=== PATIENT | female | born 1950 | race Caucasian/White ===

== ENCOUNTER 2024-10-21 12:10 | Emergency (ER) | payer MEDICARE, SELFPAY ==
[2024-10-21 12:27] VITALS: BP 134/74; PULSE 79; TEMP 36.6; O2SAT 98; BMI 33.6
[2024-10-21 12:41] LABS: Glucometer 126 mg/dL (74-106)
--- NOTE | 2024-10-21 15:06 | ED.GENADUL1 ---
HPI HPI - General Adult General Chief complaint: Recheck/Abnormal Lab/Rx Stated complaint: hypoglycemia Time Seen by Provider: 10/21/24 14:09 Source: patient Mode of arrival: walk-in Limitations: no limitations History of Present Illness HPI narrative: Patient is a 74-year-old female who is presenting to the ER today with chief complaint of lower blood sugar. Patient has a very detailed note that she wrote of what occurred today. A copy of this will be placed in the chart. Patient got up at 4:00 this morning, her sugar was 120 at 5 AM. She ate breakfast. She had a bowl of cereal and a cup of hot chocolate. She took her insulin shot at 6:45 AM. She checked her blood sugar at 9:45 AM, her blood sugar was 74. She took a glucose tablet at 1045. She felt sick to her stomach after she took the glucose tablet, went to the bathroom and then 1 episode of vomiting at 11:00. At 1110 her blood sugar was 89 and then she ate peanut butter sandwich at 1140. Sugar was 80 at that time. Patient has had her blood sugar checked when she arrived and was in the 120s. Patient blood sugar was checked when she was placed in room 9, is in the 150s. Patient has no symptoms while she is in room 9. Patient was the waiting room for length of time before she has placed. Grandson at bedside. She has no headache or neck pain. No chest pain or shortness of breath. She has no nausea. Patient ate a turkey sandwich at lunchtime. Patient has no abdominal pain. Patient is admittedly nervous because she is using a new glucose monitor at home that is not correlating with her finger prick glucometer that she has done for a long time. Patient is uncertain what she should do with her sliding scale. Patient was not aware interval blood sugar was 60?100. All systems are negative except as noted/marked. All systems reviewed and otherwise negative. Nurses note and vital signs reviewed and patient is not hypoxic. General: The patient appears well and in no apparent distress. Patient is resting comfortably on cart. Patient is not toxic, lethargic, or listless Skin: Warm, dry, no pallor noted. There is no rash noted. No petechiae, purpura. Head: Normocephalic, atraumatic Eye: Normal conjunctiva, no drainage, EOMI. PERRL Ears, Nose, Mouth, and Throat: oral mucosa is moist. Nares patent. Mouth without vesicles. Cardiovascular: Regular Rate and Rhythm, no murmur, gallop, rub Respiratory: Patient is in no distress, no accessory muscle use, lungs are clear to auscultation, no wheezing, rales or rhonchi Back: non-tender, no CVA tenderness bilaterally to percussion. No CT LS midline pain GI: Soft, obese, no tenderness to palpation, no masses appreciated. No rebound, guarding, or rigidity noted. No distention. No rash. Musculoskeletal: Patient has full range of motion of all of the extremities, no motor, sensory, or focal neurological deficits Neurological: A&O x4, normal speech Psychiatric: Cooperative Related Data Allergies Allergy/AdvReac Type Severity Reaction Status Date / Time No Known Drug Allergies Allergy Verified 10/21/24 12:27 Opioid HPI Opioid Management Most Recent Opioid Data: No Data to Display PFSH PFSH Social History Little interest or pleasure in doing things: not at all Feeling down, depressed, or hopeless: not at all Exam Constitutional Vital Signs, click to edit/add: Last Vital Signs Temp 98 F 10/21/24 12:27 Pulse 79 10/21/24 12:27 Resp 14 10/21/24 12:27 BP 134/74 10/21/24 12:27 Pulse Ox 98 10/21/24 12:27 O2 Del Method Room Air 10/21/24 12:27 Course Vital Signs Vital signs: Vital Signs Temperature 98 F 10/21/24 12:27 Pulse Rate 79 10/21/24 12:27 Respiratory Rate 14 10/21/24 12:27 Blood Pressure 134/74 10/21/24 12:27 Pulse Oximetry 98 10/21/24 12:27 Oxygen Delivery Method Room Air 10/21/24 12:27 Temperature 98 F 10/21/24 12:27 Pulse Rate 79 10/21/24 12:27 Respiratory Rate 14 10/21/24 12:27 Blood Pressure 134/74 10/21/24 12:27 Pulse Oximetry 98 10/21/24 12:27 Oxygen Delivery Method Room Air 10/21/24 12:27 Medical Decision Making MDM Narrative Medical decision making narrative: Patient blood sugar has been normal all day today. It was 74 and she was concerned so she took a glucose tablet. Patient has no symptoms. At length was discussing on patient following up with PCP, checking her monitors, making sure which monitor if she should be using and not. We talked at length about using life alert at home. Patient did have it, she cannot find it. Grandson at bedside was not aware of life alert and what it did. Patient knows what life alert is, and patient is recommended to call the company and get a new life alert and holders that she can use. Patient has not truly been hypoglycemic today. Patient has no acute need for testing. EKG was done, normal limits. Patient had IV placed initially by Yann TREADWELL because there was a thought we may do testing on patient. However she has not been hypoglycemic, she has no symptoms. I told patient we typically do IV and labs and protocols on people, but she was understanding why the IV was placed and it will be removed. She was not upset at all. Patient will follow-up with her PCP and she knows that she needs to get a new life alert system at home because she does not able to find her current 1. No question at discharge Lab Data Lab results reviewed: Yes I reviewed the patient's lab results Labs: Lab Results 10/21/24 Range/Units 12:39 POC Glucose 126 H (74-106) mg/dL Discharge Plan Discharge Chief Complaint: Recheck/Abnormal Lab/Rx Clinical Impression: Diabetes Patient Disposition: Home, Self-Care Time of Disposition Decision: 15:05 Condition: Fair Print Language: Turkish Instructions: Diabetes and Nutrition (ED) Additional Instructions: Replace your life alert button so that you can keep that on you at all times as discussed at bedside with your grandson. Call Dr. Vera and make an appointment to go over your diabetic sugar monitor, your monitor at home that you are using, and further direction on medication that you should be and not be using with your insulin sliding scale. Discussed the differences between your new monitor versus your old glucometer that you have been using. Return back to the ER if any other acute concerns. Your sugars have been normal all day today, and normal sugar ranges 60?100 Referrals: SHANICE VERA [Primary Care Provider] - 1 week
[2024-10-21 15:23] VITALS: BP 164/74; PULSE 66; O2SAT 96
--- NOTE | 2024-10-21 17:25 | ECG_ITS ---
[facility] Test Date: 2024-10-21 Pat Name: ANDREA GLEZ Department: Room: - Gender: Female [employer] T[employer]: : 1950 Requested By: Order Number: [id number] Reading MD: PEYMAN AN Measurements Intervals [place] Rate: 69 P: -64 MD: 140 QRS: 48 QRSD: 82 T: 46 QT: 420 QTc: 439 Interpretive Statements 1300 Junctional rhythm 9140 abnormal rhythm ECG No previous ECG available for comparison Electronically Signed On 10-23-2024 8:08:40 EST by PEYMAN AN
== END 2024-10-21 15:24 | disposition home or self-care (01) ==
PROVIDERS: Emergency Provider Emergency Medicine; Family Provider Family Medicine; PCP Internal Medicine
DX: E11.9 Type 2 diabetes mellitus without complications (principal); Z79.4 Long term (current) use of insulin
CPT/HCPCS: 36415; 93005; 99283

== ENCOUNTER 2024-12-06 10:55 | Emergency (ER) | payer MEDICARE, SELFPAY ==
[2024-12-06 11:03] VITALS: BP 186/91; PULSE 72; TEMP 36.5; O2SAT 98; BMI 33.6
--- OUTSIDE RECORDS SUMMARY | 2024-12-06 11:07 | XMS_ITS | CCD ---
Author Organization [facility]ini[facility] Care Team Providers Care Faculty Member Name Role Phone Lauren Vance Unavailable Antonio Thompson Unavailable Tang Shrestha Unavailable DO Kristopher Herzog Primary Care Provider MD Tang Shrestha Attending Provider [phone] IRAM Molina Attending Provider DO Kristopher Herzog Attending Provider [phone] DO Kristopher Herzog Primary Care Provider DO Kristopher Herzog Attending Provider DO Radha Verduzco Attending Provider [phone] DO Kristopher Herzog Primary Care Provider [phone] IRAM Molina Attending Provider DO Kristopher Herzog Attending Provider DO Radha Verduzco Attending Provider MD Edmond Branham Emergency Provider Olu Rene Unavailable DO Kristopher Herzog Primary Care Provider DO Kristopher Herzog Attending Provider [phone] Kiersten Qureshi Unavailable DO Kristopher Herzog Primary Care Provider MD Edmond Branham Emergency Provider DO Kristopher Herzog Attending Provider DO Radha Verduzco Attending Provider [phone] DO Kristopher Herzog Attending Provider FAITH Lobo Emergency Provider MD Rosalina Shelton Admit Provider MD Rosalina Shelton Attending Provider DO Kristopher Herzog Primary Care Provider DO Gabriel Castaneda Attending Provider DO Kristopher Herzog Primary Care Provider DO Kristopher Herzog Attending Provider [phone] DO Radha Verduzco Attending Provider NO FAMILY, PHYSICIAN Primary Care Provider Unava ilable iTta Roberts Unavailable Kristopher Herzog DO A Unavailable [phone] Kristopher Herzog DO A Primary Care Provider DO Kristopher Herzog Primary Care Provider DO Kristopher Herzog Attending Provider DO Kristopher Herzog Primary Care Provider DO Kristopher Herzog Attending Provider DO Radha Verduzco Attending Provider DO Sandy Clark Attending Provider [phone] DO Kristopher Herzog Primary Care Provider [phone] DO Johnny Keen Emergency Provider [phone] DO Kristopher Herzog Primary Care Provider [phone] DO Kristopher Herzog Primary Care Provider Kristopher Herzog Primary Care Unavailable Itzdunia, Radha Admitting Unavailable Itdee, Radha Attending Unavailable Kristopher Herzog Admitting Unavailable Kristopher Herzog Primary Care Unavailable Kristopher Herzog Attending Unavailable NO FAMILY, PHYSICIAN Primary Care Unavailable Itzkoel, Radha Admitting Unavailable Itdee, Radha Attending Unavailable Kristopher Herzog Primary Care Unavailable Sandy Clark Admitting Unavailable Amber, Sandy Ye Attending Unavailable Johnny Keen Attending Unavailable Kristopher Herzog Primary Care Unavailable Johnny Keen Admitting Unavailable Kristopher Herzog DO Unavailable KRISTOPHER HERZOG Attending Unavailable KRISTOPHER HERZOG Referring Unavailable KRISTOPHER HERZOG Attending Unavailable KRISTOPHER HERZOG Referring Unavailable KRISTOPHER HERZOG Attending Unavailable KRISTOPHER HERZOG Referring Unavailable KRISTOPHER HERZOG Referring Unavailable ADAM SMITH Attending Unavailable MARLON BRANHAM Attending Unavailable RADHA VERDUZCO Attending Unavailable ADAM SMITH Attending Unavailable MARLON BRANHAM Attending Unavailable MINO, KRISTOPHER Welch Attending Unavailable KRISTOPHER HERZOG Referring Unavailable DIDIONPERNELLVENITA L Attending Unavailable DIDSULY, VENITA L Referring Unavailable DIDION, VENITA L Referring Unavailable BRANHAMMARLON H Attending Unavailable DIDION VENITA L Attending Unavailable DIDION VENITA L Referring Unavailable DIDION VENITA L Referring Unavailable Medications Current Medications Medication Drug Class(es) Dates Sig (Normalized) Sig (Original) acetaminophen 500 mg oral tablet (20 sources) Start: 05-08-2021 take 2 tablets by mouth every six hours as needed for pain Acetaminophen (Acetaminophen Extra Strength) 500 mg Tablet Active 1000 MG PO Q6H as needed for Pain May 08, 2021 12:00am take 2 tablets by mo uth twice daily as needed for pain acetaminophen (Tylenol Extra Strength) 5 00 MG tablet Take 1,000 mg by mouth 2 (two) times a day as needed for mild pain. Active Tylenol Active amitriptyline hydrochloride 50 mg oral tablet (20 sources) Tricyclic Antidepressant Start: 12-28-2023 End: 04-27-2024 take 1 tablet by mouth at bedtime amitriptyline (Elavil) 50 MG tablet Indications: Essential hypertension, benign (CMS/HCC) TAKE 1 TABLET BY MOUTH AT BEDTIME 90 tablet 3 12/28/2023 04/27/2024 Discontinued (Therapy completed) Start: 02-09-2023 take 1 tablet by brary at bedtime amitriptyline (Elavil) 50 MG tablet Indications: Essential hypertension, benign (CMS/HCC) Take 1 tablet (50 mg) by mouth at bedtime. 90 tablet 3 02/09/2023 Active Start: 04-29-2017 End: 06-29-2024 take 1 tablet by mouth once daily at bedtime Amitriptyline 25 mg Tablet Discontinued 25 MG PO Daily at bedtime April 29, 2017 12:00am June 29, 2024 11:36am Ascorbic Acid / Beta Caroten e / cuprous oxide / Lutein / sodium selenate / Vitamin E / Zinc Oxide (20 sources) Vitamin C Ocuvite Active balsalazide disodium 750 mg oral capsule (5 sources) Aminosalicylate Start: 08-28-2016 take 3 capsules by mouth every twelve hours Betamethasone (20 sources) Corticosteroid Betamethasone Va lerate Active cholecalciferol 0.025 mg oral capsule (20 sources) Vitamin D Start: 04-29-2017 take 1 capsule by mouth once daily Cholecalciferol (Vitamin D3) (Vitamin D3) 1,000 unit Capsule Active 1000 UNIT PO Daily April 29, 2017 12:00am take 1 tablet by mouth in the mo rning cholecalciferol (Vitamin D-3) 25 MCG (1000 UT) tablet Take 1,000 Units by mouth in the morning. Active citalopram 20 mg oral tablet (20 sources) Serotonin Reuptake Inhibitor Start: 04-29-2017 take 1 tablet by mouth once daily Citalopram 20 mg Tablet Active 20 MG PO Daily April 29, 2017 12:00am clobetasol propionate 0.0005 mg/mg topical ointment (20 sources) Corticosteroid Start: 06-22-2024 clobetasol (Temovate) 0.05 % ointment Indications: Atrophic vaginitis Apply topically 2 (two) times a day 15 g 1 06/22/2024 Active Start: 09-17-2023 clobetasol (Te movate) 0.05 % ointment Indications: Dermatitis Apply topically 2 (two) times a day 30 g 2 09/17/2023 Active Continuous Glucose Foundry Operator (FreeStyle Carline 3 Mallory) device (4 sources) Start: 09-06-2024 End: 09-06-2025 Continuous Glucose Foundry Operator (FreeStyle Carline 3 Mallory) device Indications: Diabetic peripheral neuropathy associated with type 2 diabetes mellitus (CMS/HCC) , [facility] current use of insulin ([facility]) 1 Device continuously 1 each 09/06/2024 09/06/2025 Active Continuous Glucose Sensor [place]FreeStyle Carline [place] [facility] [place] Start: 09-06-2024 End: 09-06-2025 Continuous Glucose Sensor (FreeStyle Carline 3 Sensor[place] [facility] [place]ications: Diabetic peripheral neuropathy associated with type 2 diabetes mellitus ([facility]/HCC) , [facility] current use of insulin ([facility]) 1 Device every 14 (fourteen) days 7 each 3 09/06/2024 09/06/2025 Active dexlansoprazole 60 mg delayed release oral capsule (5 sources) Proton Pump Inhibitor take 1 capsule by mouth every twenty-four hours esomeprazole 20 mg delayed release oral capsule (5 sources) Proton Pump Inhibitor take 1 capsule by mouth every twenty-four hours famotidine 20 mg oral tablet (5 sources) Histamine-2 Receptor Antagonist take 1 tablet by mouth every twelve hours gemfibrozil 600 mg oral tablet (5 sources) Peroxisome Proliferator Receptor alpha Agonist take 1 tablet by mouth every twelve hours HumaLOG Mix 75/25 KwikPen (5 sources) Start: 05-24-2010 hydrocortisone acetate 25 mg rectal suppository (10 sources) Corticosteroid Start: 06-29-2024 End: 10-07-2024 Hydrocortisone Acetate (Anusol-Hc) 25 mg suppository Active 25 MG MA Daily at bedtime 7 7 October 07, 2024 1:00am insulin aspart protamine, human 70 unt/ml / insulin aspart, human 30 unt/ml injectable suspension (20 sources) Insulin Analog Start: 10-10-2024 NovoLOG MIX 70/30 (70-30) 100 UNIT/ML injection Indications: Type 2 diabetes mellitus with diabetic polyneuropathy, with long-term current use of insulin ([facility]) INJECT 12 UNITS SUBCUTANEOUSLY TWICE A DAY IN THE MORNING AND EVENING WITH MEALS 10 mL 5 10/10/2024 Active Start: 10-07-2024 Insulin Asp Pr t-Insulin Aspart (Novolog Mix 70-30flexpen U- 100) 100 unit/mL (70-30) insulin pen Active 14 UNIT SUBCUT Twice daily October 07, 2024 10:09am Per patient Start: 11-09-2023 End: 10-07-2024 Insulin Asp Prt-Insulin Aspa rt (Novolog Mix 70-30flexpen U-100) 100 unit/mL (70-30) insulin pen Discontinued 12 UNIT SUBCUT Twice daily November 09, 2023 12:00am October 07, 2024 10:10am Per patient Start: 08-20-2023 insulin aspart protamine-insulin aspart (NovoLOG Mix 70-30) (70-30) 100 UNIT/ML injection Indications: Type 2 diabetes mellitus with diabetic polyneuropathy, with long-term current use of insulin ([facility]) Inject 12 Units under the skin in the morning and 12 Units in the evening. Inject with meals. 10 mL 12 08/20/2023 Active Start: 11-22-2021 End: 12-13-2022 Insulin Asp Prt-Insulin Aspa rt (Novolog Mix 70-30 U-100 Insuln) 100 unit/mL (70-30) solution Discontinued 42 UNIT SUBCUT Every morning November 22, 2021 12:00am December 13, 2022 7:59pm Start: 11-22-2021 End: 11-09-2023 Insulin Asp Prt-Insulin Aspa rt (Novolog Mix 70-30 U-100 Insuln) 100 unit/mL (70-30) solution Discontinued 30 UNIT SUBCUT Twice daily November 22, 2021 12:00am November 09, 2023 10:07am On Hold: Resume on 12/15/22. until seen by primary care physician Start: 11-22-2021 Insulin Asp Pr t-Insulin Aspart (Novolog Mix 70-30 U-100 Insuln) 100 unit/mL (70-30) solution Active 34 UNIT SUBCUT Every evening November 22, 2021 12:00am Start: 11-22-2021 Insulin Asp Pr t-Insulin Aspart (Novolog Mix 70-30 U-100 Insuln) 100 unit/mL (70-30) solution Active 36 UNIT SUBCUT Every morning November 21, 2021 11:00pm Start: 11-22-2021 Insulin Asp Pr t-Insulin Aspart (Novolog Mix 70-30 U-100 Insuln) 100 unit/mL (70-30) solution Active 30 UNIT SUBCUT Every evening November 22, 2021 12:00am Start: 04-29-2017 End: 11-22-2021 Insulin Asp Prt-Insulin Aspa rt (Novolog Mix 70-30flexpen U-100) 100 unit/mL (70-30) Insulin Pen Discontinued 30 UNIT SUBCUT Every evening April 29, 2017 12:00am November 22, 2021 4:57pm Start: 04-29-2017 End: 01-21-2018 Insulin Asp Prt-Insulin Aspa rt (Novolog Mix 70-30flexpen U-100) 100 unit/mL (70-30) Insulin Pen Discontinued 28 UNIT SUBCUT Every morning April 29, 2017 12:00am January 21, 2018 11:46am 3 ml insulin aspart, human 1 00 unt/ml pen injector (20 sources) Insulin Analog NovoLOG FlexPen 100 UNIT/ML 30 units Subcutaneous twice daily Active NovoLOG Active insulin glargine 100 unt/ml injectable solution (5 sources) Insulin Analog inject 100 [IU] by s ubcutaneous injection in the morning insulin isophane / insulin, regular, human (20 sources) Insulin NovoLIN 70/30 Ac tive Iron (10 sources) take 1 tablet by mouth once nicole y Iron 325 (65 Fe) MG 1 tablet Orally Once a day Active Iron Active losartan potassium 50 mg oral tablet (20 sources) Angiotensin 2 Receptor Cortes Start: 06-29-2024 take 1 tablet by mouth once daily Losartan 50 mg tablet Active 50 MG PO Daily June 29, 2024 1:00am Start: 07-27-2023 take 1 tablet by barry th in the morning losartan (Cozaar) 50 MG tablet Indications: Primary hypertension (CMS/HCC) Take 1 tablet (50 mg) by mouth in the morning. 90 tablet 3 07/27/2023 Active mesalamine 1200 mg delayed release oral tablet (5 sources) Aminosalicylate Start: 07-18-2016 take 2 tablets by mouth every twenty-four hours methylPREDNISolone 4 mg oral tablet (5 sources) Corticosteroid Start: 10-15-2014 mometasone furoate 1 mg/ml topical lotion (10 sources) Corticosteroid Start: 09-16-2023 End: 09-15-2024 mometasone (Elocon) 0.1 % lotion Indications: Dermatitis Apply topically Daily 60 mL 1 09/16/2023 09/15/2024 Active Multiple Vitamins-Minerals (Ocuvite Adult Formula) capsule (14 sources) Multiple Vitamins-Minera ls (Ocuvite Adult Formula) capsule as directed Orally Active Multiple Vitamin s-Minerals (Ocuvite Adult Formula) capsule as directed Orally 0 Active Multiple Vitamins-Minerals ( PreserVision AREDS) tablet (14 sources) Multiple Vitamin s-Minerals (PreserVision AREDS) tablet as directed Orally Active Multiple Vitamin s-Minerals (PreserVision AREDS) tablet as directed Orally 0 Active pantoprazole 40 mg delayed release oral tablet (20 sources) Proton Pump Inhibitor Start: 03-25-2024 End: 03-25-2025 take 1 tablet by mouth before mealtime pantoprazole (ProtoNix) 40 MG EC tablet Indications: Gastroesophageal reflux disease without esophagitis Take 1 tablet (40 mg) by mouth in the morning. Take before meals. 90 tablet 3 03/25/2024 03/25/2025 Active Start: 06-10-2023 take 1 tablet by barry th before mealtime pantoprazole (ProtoNix) 20 MG EC tablet Indications: Gastroesophageal reflux disease without esophagitis Take 1 tablet (20 mg) by mouth in the morning. Take before meals. 90 tablet 3 06/10/2023 Active Start: 12-15-2022 End: 11-09-2023 take 1 tablet by mouth twice daily Pantoprazole 40 mg Tablet,Delayed Release (Dr/Ec) Discontinued 40 MG PO Twice daily 42 December 15, 2022 12:00am November 09, 2023 10:08am Start: 11-22-2021 take 1 tablet by barry th once daily Pantoprazole (Protonix) 40 mg tablet,delayed release (DR/EC) Active 40 MG PO Daily November 22, 2021 12:00am Start: 04-29-2017 End: 11-22-2021 take 2 tablets by mouth once daily as needed Pantoprazole 20 mg Tablet,Delayed Release (Dr/Ec) Discontinued 40 MG PO Daily as needed for Acid Reflux April 29, 2017 12:00am November 22, 2021 4:56pm Start: 04-29-2017 End: 11-22-2021 take 40 mg by mouth once daily Pantoprazole Discontinu ed 40 MG PO Daily April 28, 2017 11:00pm November 22, 2021 3:56pm Pantoprazole Sod ium Active Potassium (20 sources) Potassium Active PreserVision AREDS (20 sources) PreserVision ARE DS Active rosuvastatin calcium 20 mg oral tablet (20 sources) HMG-CoA Reductase Inhibitor Start: 05-08-2021 End: 12-13-2022 take 1 tablet by mouth once daily Rosuvastatin (Crestor) 20 mg Tablet Active 20 MG PO Daily December 13, 2022 12:00am Crestor Active sulfaSALAzine 500 mg oral tablet (20 sources) Aminosalicylate Start: 09-23-2022 End: 04-13-2024 take 1 tablet by mouth three times daily Sulfasalazine 500 mg tablet Active 1000 MG PO Three times daily 540 90 April 13, 2024 11:44am Start: 09-23-2022 End: 04-13-2024 take 1000 mg by mouth three times daily Sulfasalazine Active 1000 MG PO Three times daily 540 90 April 13, 2024 10:44am Start: 09-23-2022 take 100 mg by mouth three times daily Sulfasalazine Active 100 MG PO Three times daily September 23, 2022 1:00am Start: 01-09-2022 take 2 tablets by mo [facility] three times daily sulfaSALAzine (Azulfidine) 500 MG tablet TAKE TWO (2) TABLETS BY MOUTH THREE TIMES PER DAY 12/20/2022 Active Start: 01-09-2022 take 2 tablets by mo [facility] every six hours sulfaSALAzine 500 MG 2 tablets Orally qid for 30 day(s) December, Active Start: 11-07-2021 [facility] sulfaSALAzine 500 MG 1 tablet Orally three times a day Oct, Active Suprep Bowel Prep - (5 sources) Start: 06-26-2016 1 ml triamcinolone acetonide 40 mg/ml prefilled syringe (20 sources) Corticosteroid Start: 10-03-2024 End: 10-03-2024 triamcinolone acetonide (Kenalog-40) injection 40 mg Start: 10-03-2024 End: 10-03-2024 40 mg, Intra-articular, Once , On Thu10/03/24 at 0945, For 1 dose Start: 10-03-2024 End: 10-03-2024 triamcinolone acetonide (Braxton alog-40) injection 40 mg Start: 10-03-2024 End: 10-03-2024 40 mg, Intra-articular, Once , On Thu10/03/24 at 0945, For 1 dose Start: 12-26-2019 KENALOG - 10 m g December, 40 mg Start: 08-22-2019 BRAXTONALOG - 10 m g Jul, 40 mg Start: 11-05-2018 KENALOG - 10 m g Oct, 40 mg Start: 10-27-2014 KENALOG - 10 m g Oct, 40 mg Start: 10-15-2014 KENALOG - 10 m g Sep, 40 mg Triamterene-HCTZ (5 sources) Triamterene-HCTZ Active trolamine salicylate (20 sources) Aspercreme Activ e Vitamin D 1000 UNIT (20 sources) take 1 tablet by mouth once nicole y Vitamin D 1000 UNIT 1 tablet Orally Once a day Active Vitamin D-3 (5 sources) Vitamin D-3 Acti ve warfarin sodium 3 mg oral tablet (20 sources) Vitamin K Antagonist Start: 08-01-2024 warfarin (Coumadin) 3 MG tablet Indications: Chronic deep vein thrombosis (DVT) of femoral vein of left lower extremity (CMS/HCC) TAKE 1/2 TAB ORALLY ON THURSDAY AND THURSDAY, 1 TABLET DAILY ALL OTHER DAYS OR PER COUMADIN CLINIC 78 tablet 1 08/01/2024 Active Start: 11-09-2023 Warfarin (Jant oven) 3 mg tablet Active 0 PO As Directed November 09, 2023 10:08am 1.5mg on Tuesdays & Saturdays and 3mg on all other days orally as directed; [place] [facility] [place] Start: 11-22-2021 End: 12-15-2022 Warfarin (Jantoven) 3 mg tab let Discontinued 1.5 MG PO As Directed November 22, 2021 12:00am December 15, 2022 11:06am Thursday and thursday Start: 11-22-2021 take 1.5 mg by mouth once Warf kathy (Jantoven) 3 mg tablet Active 1.5 MG PO As Directed November 22, 2021 12:00am every thursday Start: 02-10-2018 End: 02-10-2018 Warfarin (Coumadin) 1 mg Tab let Discontinued 2 MG TABLET 5 TIMES PER WEEK February 10, 2018 12:00am February 10, 2018 10:52am takes 3mg Mondays and Fridays, 2mg , Thu, , Sat, Sun Start: 01-21-2018 End: 11-09-2023 take 1 tablet by mouth once daily Warfarin (Jantoven) 3 mg Tablet Discontinued 3 MG PO Daily January 21, 2018 12:00am November 09, 2023 10:10am 3mg daily as of 12/15/22 Start: 04-29-2017 End: 06-19-2017 take 1 tablet by mouth once Warfarin (Coumadin) 3 mg T ablet Discontinued 3 MG PO every Thursday, Thursday, Thursday, and Saturday April 29, 2017 12:00am June 19, 2017 9:25am Start: 04-29-2017 End: 06-19-2017 take 1 tablet by mouth once Warfarin (Coumadin) 4 mg T ablet Discontinued 4 MG PO every Thursday, and Saturday April 29, 2017 12:00am June 19, 2017 9:25am Completed/Discontinued Medications Medication Drug Class(es) Dates Sig (Normalized) Sig (Original) acetaminophen 325 mg / HYDROcodone bitartrate 5 mg oral tablet (20 sources) Opioid Agonist Start: 02-09-2024 End: 10-07-2024 take 1 tablet by mouth every four to six hours as needed for pain Hydrocodone-Acetami nophen 5-325 mg tablet Discontinued 1 TAB PO EVERY 4-6 HOURS as needed for pain 10 February 09, 2024 October 07, 2024 10:08am Start: 01-03-2021 End: 05-08-2021 take 1 tablet by mouth every four to six hours as needed for pain Hydrocodone-Acetaminophen 5-325 mg Table t Discontinued 1 TAB PO EVERY 4-6 HOURS as needed for Pain 07 26January 03, 2021 May 08, 2021 10:21am Start: 04-30-2017 End: 06-19-2017 take 1 tablet by mouth every four to six hours as needed for pain Hydrocodone-Acetaminophen (Clayton) 5-325 mg tablet Discontinued 1 TAB PO EVERY 4-6 HOURS as needed for pain April 30, 2017 June 19, 2017 9:24am Start: 04-30-2017 take 1 tablet by barry th every six hours as needed Start: 10-15-2014 take 1 tablet by barry th every six hours as needed amoxicillin 875 mg / clavulanate 125 mg oral tablet (20 sources) Penicillin-class Antibacterial Start: 01-23-2018 End: 02-10-2018 take 1 tablet by mouth twice daily Amoxicillin-Pot Clavulanate (Augmentin) 875-125 mg tablet Discontinued 1 TAB PO Twice daily January 23, 2018 12:00am February 10, 2018 10:30am ascorbic acid 113 mg / beta carotene 7160 mg / cuprous oxide 0.4 mg / dl-alpha tocopheryl acetate 100 unt / zinc oxide 17.4 mg oral tablet (20 sources) Vitamin C Start: 05-08-2021 End: 11-09-2023 take 2 tablets by mouth once daily Vitamins A,C,S-Ewrq-Rtmlup (Preservision Areds) 7,160 unit- 113 mg-100 unit Tablet Discontinued 2 TAB PO Daily May 08, 2021 12:00am November 09, 2023 10:08am aspirin 81 mg chewable tablet (20 sources) Platelet Aggregation Inhibitor, Nonsteroidal Anti-inflammatory Drug Start: 04-29-2017 End: 05-07-2018 take 1 tablet by mouth once daily Aspirin (Aspirin Childrens) 81 mg Tablet,Chewable Discontinued 81 MG PO Daily April 29, 2017 12:00am May 07, 2018 2:34pm betamethasone 0.5 mg/ml / clotrimazole 10 mg/ml topical cream (20 sources) Azole Antifungal, Corticosteroid Start: 04-29-2017 End: 05-08-2021 Clotrimazole-Betame thasone (Lotrisone) 1-0.05 % Cream Discontinued 1 APPLIC TOPICAL Twice daily as needed for Fungal rash June 11, 2017 12:00am May 08, 2021 10:21am Lotrisone Active cephalexin 500 mg oral capsule (20 sources) Cephalosporin Antibacterial Start: 02-09-2024 End: 06-29-2024 take 1 capsule by mouth twice daily Cephalexin 500 mg capsule Discontinued 500 MG PO Twice daily 14 February 09, 2024 12:00am June 29, 2024 11:37am Start: 06-19-2017 End: 01-21-2018 take 1 capsule by mouth every eight hours Cephalexin (Keflex) 500 mg capsule Discontinued 500 MG PO Q8H June 19, 2017 12:00am January 21, 2018 11:42am cyclobenzaprine hydrochloride 10 mg oral tablet (20 sources) Muscle Relaxant Start: 07-16-2022 End: 12-13-2022 take 1 tablet by mouth three times daily as needed for muscle spasms Cyclobenzaprine 10 mg tablet Discontinued 10 MG PO Three times daily as needed for Muscle Spasm July 16, 2022 1:00am December 13, 2022 8:00pm Start: 08-06-2019 End: 05-08-2021 take 1 tablet by mouth three times daily as needed for muscle spasms Cyclobenzaprine 5 mg tablet Discontinued 5 MG PO Three times daily as needed for muscle spasm August 06, 2019 1:00am May 08, 2021 10:21am Start: 06-19-2017 End: 01-21-2018 take 1 tablet by mouth three times daily as needed for muscle spasms Cyclobenzaprine 10 mg tablet Discontinued 10 MG PO Three times daily as needed for back spasms June 19, 2017 12:00am January 21, 2018 11:46am diclofenac sodium 0.01 mg/mg topical gel (20 sources) Nonsteroidal Anti-inflammatory Drug Start: 05-08-2021 End: 09-23-2022 apply 2 g topically four times daily Diclofenac Sodium 1 % Gel Discontinued 2 GM TOPICAL Four times daily May 08, 2021 12:00am September 23, 2022 7:36pm Start: 05-08-2021 End: 09-23-2022 apply 2 g topically four times daily Diclofenac Sodium Discontinued 2 GM TOPICAL Four times daily May 07, 2021 11:00pm September 23, 2022 6:36pm ferrous sulfate 325 mg oral tablet (20 sources) Start: 08-06-2019 End: 05-08-2021 take 1 tablet by mouth once daily Ferrous Sulfate 325 mg (65 mg iron) Tablet Discontinued 325 MG PO Daily August 06, 2019 1:00am May 08, 2021 10:21am furosemide 40 mg oral tablet (20 sources) Loop Diuretic Start: 06-27-2019 End: 11-22-2021 take 1 tablet by mouth once daily Furosemide (Lasix) 40 mg Tablet Discontinued 40 MG PO Daily August 06, 2019 1:00am November 22, 2021 4:49pm Start: 04-30-2018 End: 05-07-2018 take 1 tablet by mouth in the morning Furosemide 40 mg tablet Discontinued 40 MG PO As Directed April 30, 2018 12:00am May 07, 2018 2:33pm take in am and repeat at 3pm if swelling not improved gabapentin 100 mg oral capsule (20 sources) Anti-epileptic Agent Start: 08-06-2019 End: 05-08-2021 take 1 capsule by mouth once daily Gabapentin 100 mg Capsule Discontinued 100 MG PO Daily August 06, 2019 1:00am May 08, 2021 10:21am take 1 capsule by [facility] every twelve hours Gabapentin 100 MG 1 capsule Orally Twice a day Active hydroCHLOROthiazide 25 mg oral tablet (20 sources) Thiazide Diuretic Start: 12-15-2022 End: 06-29-2024 take 1 tablet by mouth once daily Hydrochlorothiazide 25 mg tablet Discontinued 25 MG PO Daily December 15, 2022 12:00am June 29, 2024 11:38am hydroCHLOROthiazide 25 mg / triamterene 37.5 mg oral capsule (20 sources) Potassium-spa ring Diuretic, Thiazide Diuretic Start: 04-29-2017 End: 04-30-2018 take 1 capsule by mouth once daily as needed for edema Triamterene-Hydrochloro thiazid (Dyazide) 37.5-25 mg Capsule Discontinued 1 CAP PO Daily as needed for Edema April 29, 2017 12:00am April 30, 2018 1:41pm triamterene-hydr oCHLOROthiazide (Dyazide) 37.5-25 MG capsule lidocaine 0.04 mg/mg medicated patch (20 sources) Antiarrhythmic, Amide Local Anesthetic Start: 08-06-2019 End: 05-08-2021 apply 1 dose topically once daily as needed for pain Lidocaine (Lidocaine Pain Relief) 4 % Adhesive Patch,Medicated Discontinued 1 PATCH TOPICAL Daily as needed for Pain August 06, 2019 1:00am May 08, 2021 10:21am lisinopril 5 mg oral tablet (20 sources) Angiotensin Converting Enzyme Inhibitor Start: 04-29-2017 End: 01-21-2018 take 1 tablet by mouth once daily Lisinopril 5 mg Tablet Discontinued 5 MG PO Daily April 29, 2017 12:00am January 21, 2018 11:44am Mesalamine (Asacol) 400 mg Tablet,Delayed Release (Dr/Ec) (20 sources) Start: 11-22-2021 End: 11-22-2021 take 2 tablets by mouth twice daily Mesalamine (Asacol) 400 mg Tablet,Delayed Release (Dr/Ec) Discontinued 800 MG PO Twice daily November 21, 2021 11:00pm November 22, 2021 3:50pm Start: 11-22-2021 End: 11-22-2021 take 2 tablets by mouth twice daily Mesalamine (Asacol) 400 mg Tablet,Delayed Release (Dr/Ec) Discontinued 800 MG PO Twice daily November 22, 2021 12:00am November 22, 2021 4:50pm metOLazone 5 mg oral tablet (20 sources) Thiazide-like Diuretic take 1 tablet by mouth once daily metOLazone 5 MG 1 tablet Orally Once a day, 30 min prior to lasix Not-Taking midodrine hydrochloride 2.5 mg oral tablet (20 sources) alpha-Adrenergic Agonist Start: 01-23-20 End: 08-06-20 take 1 tablet by mouth twice daily Midodrine 2.5 mg tablet Discontinued 2.5 MG PO Twice daily January 22, 2018 12:00am August 06, 2019 1:28pm Start: 01-06-2018 take 1 tablet by barry th every eight hours Midodrine HCl 2.5 MG 1 tablet Orally Three times a day December, Active Multivitamin preparation (20 sources) Start: 12-13-2022 End: 11-09-2023 take 1 tablet by mouth once daily Multivitamin Discontinued 1 TAB PO Daily December 12, 2022 11:00pm November 09, 2023 9:07am Start: 12-13-2022 End: 11-09-2023 take 1 tablet by mouth once daily Multivitamin Discontinued 1 TAB PO Daily December 13, 2022 12:00am November 09, 2023 10:07am Start: 12-13-2022 take 1 tablet by barry th once daily Multivitamin Active 1 TAB PO Daily December 12, 2022 11:00pm Start: 12-13-2022 take 1 tablet by barry th once daily Multivitamin Active 1 TAB PO Daily December 13, 2022 12:00am take 1 tablet by barry th once daily Multivitamin - 1 tablet Orally Once a day Active Multivitamin Tablet (6 sources) Start: 12-13-2022 End: 11-09-2023 take 1 tablet by mouth once daily Multivitamin Tablet Discontinued 1 TAB PO Daily December 13, 2022 12:00am November 09, 2023 10:07am Start: 12-13-2022 End: 11-09-2023 take 1 tablet by mouth once daily Multivitamin Tablet Discontinued 1 TAB PO Daily December 12, 2022 11:00pm November 09, 2023 9:07am nystatin [id number] unt/ml topical cream (20 sources) Polyene Antifungal Start: 05-08-2021 End: 11-22-2021 Nystatin 100,000 unit/gram Cream Discontinued 1 APPLIC TOPICAL Twice daily May 08, 2021 12:00am November 22, 2021 4:52pm Nystatin Active nystatin 100 unt/mg / triamcinolone acetonide 0.001 mg/mg topical ointment (20 sources) Polyene Antifungal, Corticosteroid Start: 05-08-2021 End: 11-22-2021 Nystatin-Triamcinolone 100,000-0.1 unit/gram-% Ointment Discontinued 1 APPLIC TOPICAL Twice daily May 08, 2021 12:00am November 22, 2021 4:52pm oxyCODONE hydrochloride 5 mg oral tablet (20 sources) Opioid Agonist Start: 06-19-2017 End: 01-21-2018 take 1 tablet by mouth every six hours as needed for pain Oxycodone (Roxicodone) 5 mg Tablet Discontinued 1 - 2 TAB PO Q6H as needed for Pain 60 June 19, 2017 12:00am January 21, 2018 11:46am potassium chloride 10 meq extended release oral tablet (20 sources) Start: 05-08-2021 End: 11-22-2021 take 1 tablet by mouth once daily Potassium Chloride 10 mEq Tablet Extended Release Discontinued 10 MEQ PO Daily May 08, 2021 12:00am November 22, 2021 4:55pm Start: 06-27-2019 Potassium Chlo ride 10 1 tablet daily Orally Once a day Jun, Active Start: 04-30-2018 End: 05-07-2018 take 2 tablets by mouth twice daily Potassium Chloride 10 mEq tablet extended release Discontinued 20 MEQ PO Twice daily April 30, 2018 12:00am May 07, 2018 2:33pm with lasix Start: 04-30-2018 End: 05-07-2018 take 20 mEq by mouth twice daily Potassium Chloride Discontinued 20 MEQ PO Twice daily April 29, 2018 11:00pm May 07, 2018 1:33pm with lasix simvastatin 80 mg oral tablet (20 sources) HMG-CoA Reductase Inhibitor Start: 04-29-2017 End: 05-08-2021 take 1 tablet by mouth at bedtime Simvastatin (Zocor) 80 mg Tablet Discontinued 80 MG PO Bedtime April 29, 2017 12:00am May 08, 2021 10:21am Zocor 40 MG 1 ta blet every evening Orally Once a day for 30 day(s) Active Sulfasalazine (Azulfidine En-Tabs) 500 mg tablet,delayed release (DR/EC) (20 sources) Start: 11-22-2021 End: 11-26-2021 take 2 tablets by mouth every eight hours Sulfasalazine (Azulfidine En-Tabs) 500 mg tablet,delayed release (DR/EC) Discontinued 1000 MG PO Q8H November 21, 2021 11:00pm November 26, 2021 11:08am TAKE 2 TABLETS BY MOUTH EVERY 8 HOURS FOR 30 DAYS Start: 11-22-2021 End: 11-26-2021 take 2 tablets by mouth every eight hours Sulfasalazine (Azulfidine En-Tabs) 500 mg tablet,delayed release (DR/EC) Discontinued 1000 MG PO Q8H November 22, 2021 12:00am November 26, 2021 12:08pm TAKE 2 TABLETS BY MOUTH EVERY 8 HOURS FOR 30 DAYS traMADol hydrochloride 50 mg oral tablet (20 sources) Opioid Agonist Start: 05-08-2021 End: 11-22-2021 take 1 tablet by mouth every six hours as needed for pain Tramadol 50 mg Tablet Discontinued 50 MG PO Q6H as needed for Pain May 08, 2021 12:00am November 22, 2021 4:47pm Start: 04-29-2017 End: 06-19-2017 take 1 tablet by mouth three times daily as needed for pain Tramadol 50 mg Tablet Discontinued 50 MG PO Three times daily as needed for Pain April 29, 2017 12:00am June 19, 2017 9:24am Vitamin A-Vitamin C-Vit E-Min (Ocuvite) Tablet (20 sources) Start: 05-08-2021 End: 11-22-2021 take 1 tablet by mouth once daily Vitamin A-Vitamin C-Vit E-Min (Ocuvite) Tablet Discontinued 1 TAB PO Daily May 07, 2021 11:00pm November 22, 2021 3:53pm Start: 05-08-2021 End: 11-22-2021 take 1 tablet by mouth once daily Vitamin A-Vitamin C-Vit E-Min (Ocuvite) Tablet Discontinued 1 TAB PO Daily May 08, 2021 12:00am November 22, 2021 4:53pm Problems Active Problems Problem Classification Problem Date Documented Date Episodic/Chronic Abdominal pain (20 sources) Abdominal pain; 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: [Unspecified abdominal pain] Onset: 4 Resolved: 4 11-22-2021 Episodic Anxiety disorders (20 sources) Anxiety disorder; 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: [Anxiety disorder, unspecified] Onset: 9 06-08-2023 Chronic Chronic kidney disease (20 sources) Chronic kidney disease stage 3; 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: [Chronic kidney disease, stage 3 (moderate)] Onset: 5 Resolved: 4 04-21-2023 Chronic Chronic ulcer of skin (20 sources) Ulcer; 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: [Ulcerative lesion] 01-27-2018 Chronic Coagulation and hemorrhagic disorders (20 sources) Hypercoagulability state; 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: [Other primary thrombophilia] Onset: 3 Resolved: 4 06-08-2023 Chronic Diabetes mellitus with complications (20 sources) Type 2 diabetes mellitus; 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: [Type 2 diabetes mellitus with diabetic polyneuropathy] Onset: 8 Resolved: 4 02-18-2018 Chronic Diabetes mellitus without complication (20 sources) Diabetes mellitus; 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: [Type 2 diabetes mellitus without complications] Onset: 3 Resolved: 4 01-27-2018 Chronic Disorders of lipid metabolism (20 sources) Mixed hyperlipidemia; 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: [Mixed hyperlipidemia] Onset: 5 Resolved: 4 04-21-2023 Chronic E Codes: Fall (12 sources) Fall; 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: [Unspecified fall, initial encounter] 02-17-2024 Episodic Esophageal disorders (20 sources) Gastroesophageal reflux disease; 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: [Gastro-esophageal reflux disease without esophagitis] Onset: 0 Resolved: 2 Chronic Essential hypertension (20 sources) Malignant essential hypertension; 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: [Essential (primary) hypertension] Onset: 5 Resolved: 4 11-22-2021 Chronic Fluid and electrolyte disorders (20 sources) Hyponatremia; 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: [Hypo-osmolality and hyponatremia] 05-06-2018 Episodic Gastrointestinal hemorrhage (20 sources) Rectal hemorrhage; 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: [Hemorrhage of anus and rectum] Onset: 2 Resolved: 2 Episodic Headache; including migraine (4 sources) Headache; 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: [Nonintractable headache, unspecified chronicity pattern, unspecified headache type] 10-25-2024 Episodic Hemorrhoids (9 sources) Internal hemorrhoids; 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: [Other hemorrhoids] 06-29-2024 Episodic Immunizations and screening for infectious disease (2 sources) Needs influenza immunization; 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: [Encounter for immunization] 06-22-2024 Episodic Malaise and fatigue (20 sources) Asthenia; 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: [Weakness] 11-22-2021 Episodic Menopausal disorders (2 sources) Atrophic vaginitis; 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: [Postmenopausal atrophic vaginitis] 06-22-2024 Chronic Mycoses (2 sources) Onychomycosis; 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: [Tinea unguium] 08-01-2024 Episodic Nausea and vomiting (20 sources) Nausea; 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: [Nausea] 05-01-2018 Episodic Noninfectious gastroenteritis (20 sources) Colitis; 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: [Noninfective gastroenteritis and colitis, unspecified] Onset: 2 Resolved: 2 Episodic Nonspecific chest pain (20 sources) Chest pain; 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: [Chest pain, unspecified] 05-06-2018 Episodic Osteoarthritis (20 sources) Osteoarthritis; 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: [Unspecified osteoarthritis, unspecified site] Onset: 5 Resolved: 4 09-08-2023 Chronic Other aftercare (20 sources) Drug therapy finding; 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: [[facility] (current) use of 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s] Episodic Other connective tissue disease (20 sources) Swelling of upper limb; 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: [Other specified soft tissue disorders] 08-06-2019 Episodic Other connective tissue disease (2 sources) Pain in both feet; 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: [Pain in right foot] 08-01-2024 Episodic Other diseases of bladder and urethra (20 sources) Bladder muscle dysfunction - overactive; 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: [Overactive bladder] Chronic Other diseases of bladder and urethra (16 sources) Overactive bladder; 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: [Overactive bladder] Onset: 8 06-08-2023 Chronic Other fractures (12 sources) Closed fracture sacrum; 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: [Unspecified fracture of sacrum, initial encounter for closed fracture] 02-17-2024 Episodic Other fractures (1 source) Other fracture of sacrum, initial encounter for closed fracture; 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: [Other fracture of sacrum, initial encounter for closed fracture] Onset: 4 Episodic Other fractures (1 source) Unspecified fracture of sacrum, initial encounter for closed fracture; 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: [Unspecified fracture of sacrum, initial encounter for closed fracture] Onset: 4 Episodic Other gastrointestinal disorders (20 sources) Constipation; 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: [Constipation, unspecified] Episodic Other gastrointestinal disorders (20 sources) H/O: ulcerative colitis; 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: [Personal history of other diseases of the digestive system] Episodic Other gastrointestinal disorders (20 sources) Diarrhea; 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: [Diarrhea, unspecified] 11-22-2021 Episodic Other gastrointestinal disorders (3 sources) Diarrhea, unspecified; 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: [Diarrhea] Onset: 2 Resolved: 2 Episodic Other hereditary and degenerative nervous system conditions (20 sources) Shy-Drager syndrome; 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 Other liver diseases (14 sources) Steatosis of liver; 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: [Fatty (change of) liver, not elsewhere classified] Onset: 0 04-21-2023 Chronic Other nervous system disorders (20 sources) Tremor; 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: [Tremor, unspecified] 09-23-2022 Episodic Other nervous system disorders (1 source) Tremor, unspecified; 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: [Abnormal involuntary movements] 12-15-2022 Episodic Other nervous system disorders (4 sources) Paresthesia of left upper limb; 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: [Paresthesia of skin] 10-25-2024 Episodic Other nervous system disorders (4 sources) Numbness of finger; 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: [Anesthesia of skin] 10-25-2024 Episodic Other non-traumatic joint disorders (20 sources) Arthralgia of the lower leg; 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: [Pain in left knee] Episodic Other non-traumatic joint disorders (20 sources) Hip pain; 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: [Pain in unspecified hip] 07-16-2022 Episodic Other nutritional; endocrine; and metabolic disorders (16 sources) Obese class I; 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: [Obesity, unspecified] Onset: 0 06-08-2023 Chronic Other screening for suspected conditions (not mental disorders or infectious disease) (20 sources) Prolonged QT interval; 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: [Abnormal electrocardiogram [ECG] [EKG]] 05-01-2018 Episodic Other skin disorders (2 sources) Callosity; 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: [Corns and callosities] 08-01-2024 Episodic Phlebitis; thrombophlebitis and thromboembolism (20 sources) 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; 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: [Chronic embolism and thrombosis of left femoral vein] Onset: 8 06-08-2023 Chronic Phlebitis; thrombophlebitis and thromboembolism (20 sources) Deep venous thrombosis; 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: [Acute embolism and thrombosis of unspecified deep veins of unspecified lower extremity] Onset: 1 Resolved: 4 09-08-2023 Episodic Pulmonary heart disease (20 sources) H/O: pulmonary embolus; 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: [Personal history of pulmonary embolism] Onset: 3 Resolved: 4 09-08-2023 Episodic Regional enteritis and ulcerative colitis (20 sources) Other ulcerative colitis with unspecified complications; 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: [Chronic ulcerative colitis] Onset: 9 11-23-2021 Chronic Residual codes; unclassified (20 sources) Obstructive sleep apnea syndrome; 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: [Obstructive sleep apnea (adult) (pediatric)] Onset: 5 Resolved: 4 04-21-2023 Chronic Residual codes; unclassified (16 sources) Dependence on enabling machine or device; 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: [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 machines and devices] Onset: 1 06-08-2023 Chronic Residual codes; unclassified (2 sources) Bilateral lower limb edema; 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: [Localized edema] 06-22-2024 Episodic Skin and subcutaneous tissue infections (20 sources) Cellulitis of foot; 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: [Cellulitis of right lower limb] 01-21-2018 Episodic Spondylosis; intervertebral disc disorders; other back problems (20 sources) Cervical arthritis; 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: [Unspecified inflammatory spondylopathy, cervical region] Onset: 7 Resolved: 06-19-2017 Chronic Spondylosis; intervertebral disc disorders; other back problems (20 sources) Spinal stenosis; 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: [Spinal stenosis, site unspecified] Onset: 08-06-2019 Episodic Sprains and strains (20 sources) Sprain of wrist; 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: [Unspecified sprain of left wrist, initial encounter] 01-03-2021 Episodic Superficial injury; contusion (20 sources) Contusion of shoulder region; 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: [Contusion of left shoulder, initial encounter] 01-03-2021 Episodic Urinary tract infections (12 sources) Acute urinary tract infection; 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: [Urinary tract infection, site not specified] 02-17-2024 Episodic Past or Other Problems Problem Classification Problem Date Documented Date Episodic/Chronic Acquired foot deformities (20 sources) Acquired hallux valgus; 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: [Hallux valgus (acquired), right foot] Onset: 01-31-2020 Resolved: 09-08-2023 09-08-2023 Chronic Acquired foot deformities (15 sources) Acquired hammer toe of left foot; 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: [Other hammer toe(s) (acquired), left foot] Onset: 04-24-2021 Resolved: 09-08-2023 09-08-2023 Chronic Allergic reactions (14 sources) Acute dermatitis; 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: [Dermatitis, unspecified] Onset: 06-08-2023 Resolved: 09-08-2023 09-08-2023 Episodic Deficiency and other anemia (13 sources) Iron deficiency anemia; 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: [Iron deficiency anemia, unspecified] Onset: 12-03-2023 Resolved: 03-09-2024 03-09-2024 Episodic Joint disorders and dislocations; trauma-related (14 sources) Traumatic arthropathy; 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: [Traumatic arthropathy, unspecified site] Onset: 04-09-2020 Resolved: 09-08-2023 09-08-2023 Chronic Lymphadenitis (20 sources) Axillary lymphadenopathy; 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: [Localized enlarged lymph nodes] Onset: 06-03-2023 Resolved: 06-22-2024 09-08-2023 Episodic Nutritional deficiencies (20 sources) Vitamin D deficiency; 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: [Vitamin D deficiency, unspecified] Onset: 06-15-2015 Resolved: 03-09-2024 06-08-2023 Chronic Other aftercare (20 sources) Long-term current use of insulin; 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: [[facility] (current) use of insulin] Onset: 10-24-2016 06-08-2023 Episodic Other aftercare (20 sources) Encounter for therapeutic drug level monitoring; 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: [Medication monitoring encounter Z51.81] Onset: 05-15-2021 Resolved: 05-06-2022 Episodic Other aftercare (18 sources) Long-term current use of 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; 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: [joint terminal attack controller (current) use of 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s] Onset: 04-13-2018 06-08-2023 Episodic Other aftercare (14 sources) Patient encounter status; 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: [Encounter for therapeutic drug level monitoring] Onset: 09-08-2023 09-08-2023 Episodic Other circulatory disease (14 sources) Vasculitis; 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: [Arteritis, unspecified] Onset: 04-24-2021 Resolved: 09-08-2023 09-08-2023 Chronic Other connective tissue disease (20 sources) Swelling of left lower limb; 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: [Other specified soft tissue disorders] Onset: 06-08-2023 Resolved: 03-09-2024 06-08-2023 Episodic Other connective tissue disease (14 sources) Disorder of soft tissue; 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: [Soft tissue disorder, unspecified] Onset: 08-22-2019 Resolved: 09-08-2023 09-08-2023 Episodic Other connective tissue disease (13 sources) Pain of right lower leg; 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: [Pain in right lower leg] Onset: 12-03-2023 Resolved: 03-09-2024 03-09-2024 Episodic Other diseases of veins and lymphatics (14 sources) Venous hypertension of lower limb; 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: [Chronic venous hypertension (idiopathic) without complications of left lower extremity] Onset: 04-23-2021 Resolved: 09-08-2023 09-08-2023 Chronic Other diseases of veins and lymphatics (20 sources) Venous insufficiency of leg; 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: [Venous insufficiency (chronic) (peripheral)] Onset: 04-24-2021 Resolved: 03-09-2024 06-08-2023 Episodic Other diseases of veins and lymphatics (16 sources) Peripheral venous insufficiency; 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: [Venous insufficiency (chronic) (peripheral)] Onset: 04-19-2018 04-21-2023 Episodic Other hereditary and degenerative nervous system conditions (14 sources) Multisystem degeneration of autonomic nervous system; 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: [Multi-system degeneration of the autonomic nervous system] Onset: 01-04-2018 Resolved: 09-08-2023 09-08-2023 Chronic Other inflammatory condition of skin (14 sources) Erythema nodosum; 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: [Erythema nodosum] Onset: 06-08-2023 Resolved: 09-08-2023 09-08-2023 Episodic Other lower respiratory disease (14 sources) Dyspnea on exertion; 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: [Other forms of dyspnea] Onset: 04-23-2021 Resolved: 09-08-2023 09-08-2023 Episodic Other nervous system disorders (20 sources) Peripheral nerve disease ; 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: [Polyneuropathy, unspecified] Onset: 06-08-2023 Resolved: 09-08-2023 09-08-2023 Chronic Other nervous system disorders (14 sources) Carpal tunnel syndrome; 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: [Carpal tunnel syndrome, unspecified upper limb] Onset: 06-08-2023 Resolved: 09-08-2023 09-08-2023 Chronic Other nervous system disorders (14 sources) Inflammatory and toxic neuropathy; 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: [Polyneuropathy due to other toxic agents] Onset: 06-26-2016 Resolved: 09-08-2023 09-08-2023 Chronic Other non-traumatic joint disorders (14 sources) Pain in left knee; 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: [Pain in joint, lower leg] Onset: 08-22-2019 Resolved: 09-08-2023 09-08-2023 Episodic Other non-traumatic joint disorders (14 sources) Pain in wrist; 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: [Pain in unspecified wrist] Onset: 05-02-2020 Resolved: 09-08-2023 09-08-2023 Episodic Other nutritional; endocrine; and metabolic disorders (20 sources) Body mass index 30+ - obesity; 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: [Body mass index (BMI) 34.0-34.9, adult] Onset: 12-03-2023 Resolved: 03-09-2024 03-09-2024 Chronic Other nutritional; endocrine; and metabolic disorders (20 sources) Obesity; 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: [Obesity, unspecified] Onset: 06-15-2015 Resolved: 09-08-2023 09-08-2023 Chronic Other nutritional; endocrine; and metabolic disorders (14 sources) Obesity caused by energy imbalance; 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: [Other obesity due to excess calories] Onset: 04-24-2020 Resolved: 09-08-2023 09-08-2023 Chronic Residual codes; unclassified (14 sources) Dependence on continuous positive airway pressure ventilation; 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: [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 machines and devices] Onset: 06-08-2023 Resolved: 09-08-2023 09-08-2023 Chronic Results Test Name Value Interpretation Reference Range Facility CT ABDOMEN PELVIS W IV CONTR [facility] 11-23-2024 CT ABDOMEN PELVIS W IV CONTRAST EXAM: CT ABDOMEN PELVIS W IV CONTRAST History: Left groin lymphadenopathy. Technique: Multiple contiguous axial images were obtained of the abdomen and pelvis from the level of the lung bases through the ischial tuberosities with contrast. Multiplanar reformats were obtained. Delayed images were obtained. All CT scans at this facility use dose modulation, iterative reconstruction, and/or weight based dosing when appropriate to reduce radiation dose to as low as reasonably achievable. Comparison: September 02, 2019 CT Findings: Lung bases are clear. Coronary artery calcifications are identified. Postsurgical changes of cholecystectomy. The liver, spleen, stomach, and adrenal glands are within normal limits. The pancreas is atrophic but otherwise unremarkable. The kidneys enhance uniformly. Simple fluid density structure demonstrating no postcontrast enhancement arising from the cortex of the right kidney measures approximately 2 cm and is most compatible with a simple cyst. No urinary tract calculi or hydronephrosis. The urinary bladder is poorly distended. There is wall thickening of the urinary bladder. The uterus is present. Abdominal aorta is nonaneurysmal. Atherosclerotic calcification of the abdominal aorta. No retroperitoneal or abdominal/pelvic lymphadenopathy. Fairly symmetric nonenlarged bilateral inguinal lymph nodes are nonspecific and not significantly changed from 2020 CT. No small bowel obstruction. A few sigmoid colon diverticuli are identified. No overt colonic mass or pericolonic inflammation. No findings of acute appendicitis. No free fluid or free air. No acute osseous abnormality. Degenerative changes of the spine. IMPRESSION: Wall thickening of the urinary bladder is likely secondary to underdistention unless the patient has signs/symptoms of cystitis. Colonic diverticulosis without diverticulitis. ELECTRONICALLY SIGNED BY: Maurice Egan, DO Normal Not Available VASC US LOWER EXTREMITY VENO US DUPLEX LEFTon 11-15-2024 VASC US LOWER EXTREMITY VENOUS DUPLEX LEFT Exam: VASC US LOWER EXTREMITY VENOUS DUPLEX LEFT Clinical History: Left lower extremity pain, swelling Reference Exam: No comparison FINDINGS: Imaging findings: Real-time ultrasonographic evaluation with color-flow Doppler sequencing and Doppler waveform analysis is provided for the deep venous system. The visualized left common femoral vein, superficial femoral vein, popliteal vein and veins of the trifurcation demonstrate appropriate compressibility and augmentation of flow. The greater saphenous vein is patent. No abnormality of the popliteal fossa is identified. Soft tissue calcifications relative to the left ankle in the clinical area of interest. Prominent lymph nodes in the left groin with greater short axis dimension 1.25 cm. Impression: 1. No ultrasonographic evidence of deep venous thrombosis in the left lower extremity. 2. Left groin lymphadenopathy. Dictated on: 11/15/2024 8:17 AM This report has been electronically signed and approved by the interpreting Radiologist. Normal Not Available No Panel Informationon 11-02 Bedside INR (LAB) 2.8 [facility] CT HEAD WO IV CONTRASTon CT HEAD WO IV CONTRAST EXAMINATION: CT H EAD WO IV CONTRAST HISTORY: Headaches. COMPARISON: None available TECHNIQUE: Multiple axial images were obtained of the brain from the skull base through the vertex. Multiplanar reformats were obtained. All CT scans at this facility use dose modulation, iterative reconstruction, and/or weight based dosing when appropriate to reduce radiation dose to as low as reasonably achievable. FINDINGS: Prominence of the sulci and ventricles compatible with mild generalized parenchymal volume loss. Licea-white matter differentiation is preserved. Subtle areas of bilateral supratentorial white matter hypoattenuation are nonspecific but most likely due to chronic small vessel ischemic changes in a patient of this age. No acute hemorrhage or abnormal extra-axial fluid collection. Basal cisterns are patent. No mass effect or midline shift. The visualized paranasal sinuses and mastoid air cells are clear. Calvarium is intact. IMPRESSION: No acute intracranial process. Generalized parenchymal volume loss and nonspecific white matter findings most compatible with chronic small vessel ischemic changes in a patient of this age. ELECTRONICALLY SIGNED BY: Maurice Egan, DO Normal Not Available XR CERVICAL SPINE 2-3 VIEWSo n 10-25-2024 XR CERVICAL SPINE 2-3 VIEWS TITLE OF EXAM: XR CERVICAL SPINE 2-3 VIEWS REASON FOR EXAM: Left sided neck pain that radiate down left arm, headaches,. TECHNIQUE: 3 radiographs of the cervical spine COMPARISONS: None. FINDINGS: No fracture; normal vertebral body heights. Straightening of normal cervical lordosis. No significant listhesis. Anterior fixation and intervertebral prostheses C3-5 in close apposition to bone and anatomically aligned; no evidence of complication. Lu cervical facet osteoarthrosis. Mild C2-3 and C5-6 degenerative disc disease with mildly reduced intervertebral space and C5-6 predominant uncovertebral proliferation. Anterior endplate proliferation at C5-6. Anatomic alignment of the atlantoaxial joints, severely degenerated on the right. Widely patent airway. No focal soft tissue abnormality. IMPRESSION: 1. C3-5 anterior fixation construct and intervertebral prostheses without evidence of complication. 2. No fracture or listhesis. Chronic/degenerative findings as detailed. DICTATED ON: 10/25/2024 1:06 PM This report has been electronically signed and approved by the interpreting radiologist. Normal Not Available No Panel Informationon 10-05 Bedside INR (LAB) 2.5 [facility] No Panel Informationon 09-09 Bedside INR (LAB) 2.3 [facility] No Panel Informationon 08-03 Bedside INR (LAB) 2.0 [facility] No Panel Informationon 07-04 Bedside INR (LAB) 2.2 [facility] Comprehensive metabolic pane jimbo 06-18-2024 Albumin [Mass/Vol] 4.1 g/dL 3.8 - 4.8 g/dL [facility] ALP [Catalytic activity/Vol] 53 U/L [facility] ALT [Catalytic activity/Vol] 12 U/L [facility] AST [Catalytic activity/Vol] 16 U/L [facility] Bilirubin [Mass/Vol] 0.2 mg/dL 0.0 - 1 .2 mg/dL [facility] Calcium [Mass/Vol] 9.6 mg/dL 8.7 - 10. 3 mg/dL [facility] Chloride [Moles/Vol] 104 mmol/L 96 - 10 6 mmol/L [facility] CO2 [Moles/Vol] 22 mmol/L 20 - 29 mmol/L [facility] Creatinine [Mass/Vol] 0.93 mg/dL 0.57 - 1.00 mg/dL [facility] GFR/1.73 sq M.predicted among non-blacks MDRD (S/P/Bld) [Vol rate/Area] 65 mL/min/{1.73_m2} 59 - PINF mL/min/1.7 3 [facility] Globulin (S) [Mass/Vol] 2.7 g/dL 1.5 - 4.5 g/dL [facility] Glucose [Mass/Vol] 126 mg/dL High 70 - 99 mg/dL [facility] Potassium [Moles/Vol] 4.8 mmol/L 3.5 - 5.2 mmol/L [facility] Protein [Mass/Vol] 6.8 g/dL 6.0 - 8.5 g/dL [facility] Sodium [Moles/Vol] 139 mmol/L 134 - 144 mmol/L [facility] Urea nitrogen [Mass/Vol] 18 mg/dL 8 - 27 mg/dL [facility] Urea nitrogen/Creatinine [Mass ratio] 19 mg/mg 12 - 28 [facility] Hemoglobin a1c with eagon Average glucose Estimated from glycated hemoglobin (Bld) [Mass/Vol] 163 mg/dL [facility] HbA1c (Bld) [Mass fraction] 7.3 % High 4.8 - 5.6 % [facility] Comment on above: Prediabetes: 5.7 - 6 .4 Diabetes: >6.4 Glycemic control for adults with diabetes: <7.0 Lipid 1996 panelon Cholesterol [Mass/Vol] 140 mg/dL 100 - 199 mg/dL [facility] Cholesterol in HDL [Mass/Vol] 45 mg/dL 39 - PINF mg/dL [facility] Cholesterol in LDL [Mass/Vol] 70 mg/dL 0 - 99 mg/dL [facility] Cholesterol in VLDL [Mass/Vol] 25 mg/dL 5 - 40 mg/dL [facility] Triglyceride [Mass/Vol] 143 mg/dL 0 - 149 mg/dL [facility] No Panel Informationon 06-18 Interpretation and review of laboratory results Abnormal [facility] Performed at: - [address] [id number] Brim Cutter: Juan Dunbar PhD, Phone: [phone] [facility] Specimen Status Reporton Clindamycin Disk diffusion (KB) [Susc] Comment [facility] Comment on above: Elena Yan CMP14 D efault Elena Yan CMP14 Default A hand-written panel/profile was received from your office. In accordance with the [facility] Ambiguous Test Code Policy dated February 2003, we have completed your order by using the closest currently or formerly recognized AMA panel. We have assigned Comprehensive Metabolic Panel (14), Test Code #730681 to this request. If this is not the testing you wished to receive on this specimen, please contact the [facility] Client Inquiry/Technical Services Department to clarify the test order. We appreciate your business. Elena Abbrev LP Default Ambtan Abbrev LP Default A hand-written panel/profile was received from your office. In accordance with the [facility] Ambiguous Test Code Policy dated February 2003, we have completed your order by using the closest currently or formerly recognized AMA panel. We have assigned Lipid Panel, Test Code #446204 to this request. If this is not the testing you wished to receive on this specimen, please contact the [facility] Client [facility]quiry/Technical Services Department to clarify the test order. We appreciate your business. No Panel Informationon 06-06 Bedside INR (LAB) 2.1 [facility] No Panel Informationon 05-09 Bedside INR (LAB) 2.5 [facility] No Panel Informationon 04-14 Bedside INR (LAB) 2.5 [facility] No Panel Informationon 03-14 Bedside INR (LAB) 2.2 [facility] No Panel Informationon 02-16 Bedside INR (LAB) 2.1 [facility] Activated partial thrombopla stin time (aPTT) in platelet poor plasma by coagulation aOrdered By: Johnny Keen on 02-09-2024 aPTT Coag (PPP) [Time] 37.1 s High 25.1-36.[address] [facility] Comment on above: A hematocrit value g reater than 55% may lead to inaccurate results in coagulation testing. Patients having hematocrit values >55% require a special collection tube for coagulation studies. Please contact the laboratory at [phone] for redraw instructions. Automated basophil %Ordered By: Johnny Keen on 02-09-2024 Basophils/100 WBC (Bld) 0.6 % . [facility] Comment on above: Performed By: #### P T, PTT, BMP, CBC #### [facility] [address] [place] [address] Automated basophil countOrde red By: Johnny Keen on 02-09-2024 Basophils (Bld) [#/Vol] 0.0 10*3/uL 0.0-0.2 [facility] Comment on above: Result Comment: PERF ORMED BY: [place] [address] PATHOLOGIST [employer]OD PRODUCTION WORKER GLENYS BARRON M.D. Performed By: #### P T, PTT, BMP, CBC #### [address] Automated blood monocyte cou ntOrdered By: Johnny Keen on 02-09-2024 Monocytes (Bld) [#/Vol] 0.5 10*3/uL 0.0-0.8 [facility] Comment on above: Performed By: #### P T, PTT, BMP, CBC #### [address] Automated eosinophil %Ordere d By: Johnny Keen on 02-09-2024 Eosinophils/100 WBC (Bld) 0.4 % . [facility] Comment on above: Performed By: #### P T, PTT, BMP, CBC #### [address] Automated eosinophil countOr dered By: Johnny Keen on 02-09-2024 Eosinophils (Bld) [#/Vol] 0.0 10*3/uL 0.0-0.45 [facility] Comment on above: Performed By: #### P T, PTT, BMP, CBC #### [address] Automated epithelial cells c ount in urine sediment (number/area)Ordered By: Johnny Keen on 02-09-2024 Epithelial cells Auto (Urine sed) [#/Area] 10-19 [HPF] High 0-2 [facility] Automated monocyte %Ordered By: Johnny Keen on 02-09-2024 Monocytes/100 WBC (Bld) 8.0 % . [facility] Comment on above: Performed By: #### P T, PTT, BMP, CBC #### [facility] [address] [place] [address] Automated neutrophil %Ordere d By: Johnny Keen on 02-09-2024 Neutrophils/100 WBC (Bld) 73.4 % . [facility] Comment on above: Performed By: #### P T, PTT, BMP, CBC #### [facility] [address] [place] [address] Bacteria [Presence] in Urine by AutomatedOrdered By: Johnny Keen on 02-09-2024 Bacteria Auto Ql (U) 1+ [HPF] High None Seen [facility] Basic Metabolic Panelon 01-22 Creatinine Clr Calc Pharmacy 48.37 Normal [facility] Comment on above: Result Comment: PERF ORMED BY: [place] [address] PATHOLOGIST FOOD PRODUCTION WORKER GLENYS BARRON M.D. Performed By: #### P T, PTT, BMP, CBC #### [facility] [address] [place] [address] GFR/1.73 sq M.predicted MDRD (S/P/Bld) [Vol rate/Area] 59.856 mL/min/{1.73_m2} Normal [facility] Comment on above: Performed By: #### P T, PTT, BMP, CBC #### [facility] [address] [place] [address] Bilirubin Test strip Ql (U)O rdered By: Johnny Keen on 02-09-2024 Bilirubin Ql (U) Negative Negative [facility] CT head/brain wo conon 02-08 CT head/brain wo con [facility] [address] [place] [address] CT Scan Report Signed Patient: Nicol Frances MR#: [id number] 94 : 1950 Acct:[id number] Age/Sex: 73 / F ADM Date: 02/09/24 Loc: ER Room: Type: [facility] ER Attending Dr: Copies to: Johnny Keen DO Ordering Provider: Johnny Keen DO Date of Service: 02/09/24 CT/CT cervical spine wo con: fall ([id number]) CT/CT head/brain wo con: fall CLINICAL DATA: Patient lost balance and fell backwards and hit head. Headaches. Blood thinners. CT BRAIN WITHOUT CONTRAST: COMPARISON: 12/11/2022 TECHNIQUE: Contiguous axial unenhanced images were obtained through the brain. This CT exam was performed using one or more following dose reduction techniques: Automated exposure control, adjustment of the mA and/or kV according to patient size, or use of iterative reconstruction technique. FINDINGS: There is generalized atrophy. The ventricles are within normal limits for size and position. Microvascular changes are noted. There are no additional areas of abnormal attenuation. There is no hemorrhage, mass effect or extra-axial collections. The calvarium is intact. The imaged paranasal sinuses and mastoid air cells are clear. There is vertebral artery and carotid siphon plaque. CT/CT head/brain wo con IMPRESSION: ATROPHY AND SMALL VESSEL ISCHEMIC CHANGES. NO ACUTE INTRACRANIAL TRAUMA. CT CERVICAL SPINE WITHOUT CONTRAST WITH 3D RECONSTRUCTIONS: COMPARISON: 08/06/2019 TECHNIQUE: Spiral axial unenhanced images were obtained through the cervical spine. Sagittal, coronal and 3D volume-rendered reconstructions were also reviewed. This CT exam was performed using one or more following dose reduction techniques: Automated exposure control, adjustment of the mA and/or kV according to patient size, or use of iterative reconstruction technique. FINDINGS: There is prior anterior fusion with plate and screws an interbody grafting material extending from C3 through C5. There is slight reversal of the normal cervical curvature. No acute fractures are seen. There is disc space narrowing at C5-6 and C6-7. Endplate spurring and facet hypertrophy are noted. The atlantoaxial relationship is stable and similar degenerative changes are again noted at that site. No prevertebral soft tissue swelling is seen. Small shotty cervical lymph nodes are visualized. Tonsillar calcifications are seen. The upper imaged lungs show no contributory abnormalities. IMPRESSION: POSTOPERATIVE AND DEGENERATIVE CHANGES. NO ACUTE BONY INJURY. Impression dictated by: Denise Wallace M.D.02/09/2024 11:26 AM Dictation Location: [place] [address] Transcribed By: PWS 02/09/24 1126 Dictated By: Denise Wallace MD 02/09/24 1114 Signed By: 02/09/24 1126 Normal [facility] CT lumbar spine wo [place] CT lumbar spine wo con [facility] [address] [place], [place] [id number] CT Scan Report Signed Patient: Nicol Frances MR#: [id number] 94 : 1950 Acct:[id number] Age/Sex: 73 / F ADM Date: 02/09/24 Loc: ER Room: Type: [facility] ER Attending Dr: Copies to: Johnny Keen DO Ordering Provider: Johnny Keen DO Date of Service: 02/09/24 CT/CT lumbar spine wo con: fall CT LUMBAR SPINE WITHOUT CONTRAST WITH 3-D RECONSTRUCTIONS COMPARISON: 12/11/[address] CLINICAL DATA: Low back pain following fall. Spiral images were obtained through the lumbar spine without contrast. Sagittal, coronal and 3-D volume rendered reconstructions were reviewed. This CT exam was performed using one or more following dose reduction techniques: Automated exposure control, adjustment of the mA and/or kV according to patient size, or use of iterative reconstruction technique. There is subtle dextroscoliotic curvature. No acute lumbar compression fractures are identified. There is minimal retrolisthesis of L2 on L3 and L3 on L4. There is still approximately 8 mm of anterolisthesis of L4 on L5. There is mild multilevel disc space narrowing with relative sparing at the lumbosacral junction. Mild endplate spurring and prominent lower lumbar facet hypertrophy. No pars defects are noted. At L1-2, there is central/left parasagittal disco-osteophytic bulging with mild thecal sac effacement. There is mild facet hypertrophy. The neural foramen are patent. At L2-3, there is mild disco-osteophytic bulging greater through the neural foramen and asymmetric extending laterally on the right. There is mild thecal sac effacement. There is mild bilateral foraminal encroachment. At L3-4, there is disco-osteophytic bulging, slightly asymmetric in the right parasagittal region extending caudal. The facet hypertrophy is asymmetric on the right where there is also mild thickening of ligamentum flavum. There is potential moderate thecal sac effacement. There is moderate to severe right and mild to moderate left foraminal encroachment. At L4-5, there is disco-osteophytic bulging. There is uncovering of the disc. There is severe bilateral facet hypertrophy and some thickening of ligamentum flavum. Severe central stenosis is present. There is also severe right and moderate to severe left foraminal impingement. At the lumbosacral junction, there is facet hypertrophy which is asymmetric on the left. There is minimal annular disc bulging, without thecal sac effacement. There is endplate spurring extending laterally on both sides. Moderate foraminal impingement is present, greater on the right. There is degenerative change at the SI joints. There is a slightly displaced oblique fracture at the S5 segment on the sagittal reconstructions. A fracture was vaguely suggested on the prior though the displacement is new. There is no additional acute fracture involving the sacrum, imaged bony pelvis or proximal femora. No paraspinal soft tissue abnormalities are present. There is atherosclerotic disease at the aorta and proximal visceral arteries. No ascites is identified. CT/CT lumbar spine wo con IMPRESSION: SUBTLE SCOLIOSIS AND MULTILEVEL DISCOVERTEBRAL DEGENERATIVE CHANGES WITH ASSOCIATED CENTRAL AND FORAMINAL STENOSIS, DESCRIBED. NO ACUTE LUMBAR FRACTURES THOUGH THERE IS A MILDLY DISPLACED FRACTURE INVOLVING S5. Impression dictated by: Denise Wallace M.D.02/09/2024 11:39 AM Dictation Location: [place] [address] Transcribed By: JAGRUTI 02/09/24 1139 Dictated By: Denise Wallace MD 02/09/24 1126 Signed By: 02/09/24 1139 Normal [facility] Calcium [Mass/volume] in Ser um or PlasmaOrdered By: Johnny Keen on 02-09-2024 Calcium [Mass/Vol] 8.8 mg/dL 8.6-10.3 [facility] Comment on above: Performed By: #### P T, PTT, BMP, CBC #### [address] Carbon dioxide, total [Moles /volume] in Serum or PlasmaOrdered By: Johnny Keen on 06-18-2024 CO2 [Moles/Vol] 22.0 mmol/L 21.0-31.0 [facility] Comment on above: Performed By: #### P T, PTT, BMP, CBC #### [address] Casts typing in urine sedime nt by light microscopyOrdered By: Johnny Keen on 02-09-2024 Casts LM Nom (Urine sed) None seen [LPF] None Seen [facility] Chloride [Moles/volume] in S remi or PlasmaOrdered By: Johnny Keen on 02-09-2024 Chloride [Moles/Vol] 103 mmol/L 98-107 [facility] Comment on above: Performed By: #### P T, PTT, BMP, CBC #### [address] Color of Urine by AutoOrdere d By: Johnny Keen on 02-09-2024 Color (U) Light-yellow Yellow [facility] Comment on above: Order Comment: Name Collection Type:: Clean-Voided Midstream Performed By: #### C UU, ADDONUAPLUS #### [address] Complete Blood Count Auto Di ffon 02-09-2024 Mean Corpuscular HGB Conc 34.2 g/dL Normal 32.0-35.0 [facility] Comment on above: Performed By: #### P T, PTT, BMP, CBC #### [place] [address] [place] Monocytes/100 WBC (Bld) 17.76 % Normal 0.00-20.00 [facility] Comment on above: Performed By: #### P T, PTT, BMP, CBC #### [place] [address] [place] NRBC% 0.0 /100{WBC} Normal 0-0.5 [facility] Comment on above: Performed By: #### P T, PTT, BMP, CBC #### [address] Creatinine [Mass/volume] in Serum or PlasmaOrdered By: Johnny Keen on 02-09-2024 Creatinine [Mass/Vol] 1.00 mg/dL 0.60-1.20 [facility] Comment on above: Performed By: #### P T, PTT, BMP, CBC #### [facility] [address] [place] [address] [place] Dipstick and Microscopicon 0 02-09-2024 Bacteria,Urine 1+ High None Seen [facility] Comment on above: Order Comment: Name Collection Type:: Clean-Voided Midstream Performed By: #### C UU, ADDONUAPLUS #### [facility] [address] [place] [address] [place] Bilirubin,Urine Negative Normal Negative [facility] Comment on above: Order Comment: Name Collection Type:: Clean-Voided Midstream Performed By: #### C UU, ADDONUAPLUS #### [place] [address] [place] Glucose Ql (U) Normal Normal Normal [facility] Comment on above: Order Comment: Name Collection Type:: Clean-Voided Midstream Performed By: #### C UU, ADDONUAPLUS #### [facility] [address] [place] [address] [place] Hyaline Casts,Urine None Seen Normal 0-8 [facility] Comment on above: Order Comment: Name Collection Type:: Clean-Voided Midstream Performed By: #### C UU, ADDONUAPLUS #### [facility] [address] [place] [address] [place] Nitrite,Urine Negative Normal Negative [facility] Comment on above: Order Comment: Name Collection Type:: Clean-Voided Midstream Performed By: #### C UU, ADDONUAPLUS #### [place] [address] [place] Occult Blood,Urine 1+ High Negative [facility] Comment on above: Order Comment: Name Collection Type:: Clean-Voided Midstream Result Comment: PERF ORMED BY: [place] [address] PATHOLOGIST FOOD PRODUCTION WORKER GLENYS BARRON M.D. Performed By: #### C UU, ADDONUAPLUS #### [address] Other Casts,Urine None Seen Normal None Seen [facility] Comment on above: Order Comment: Name Collection Type:: Clean-Voided Midstream Result Comment: PERF ORMED BY: [place] [address] PATHOLOGIST FOOD PRODUCTION WORKER GLENYS BARRON M.D. Performed By: #### C UU, ADDONUAPLUS #### [address] Protein,Urine Negative Normal Negative [facility] Comment on above: Order Comment: Name Collection Type:: Clean-Voided Midstream Performed By: #### C UU, ADDONUAPLUS #### [address] RBC,Urine None Seen Normal 0-4 [facility] Comment on above: Order Comment: Name Collection Type:: Clean-Voided Midstream Performed By: #### C UU, ADDONUAPLUS #### [address] [place],Urine 1.014 Normal 1.001-1.03 0 [facility] Comment on above: Order Comment: Name Collection Type:: Clean-Voided Midstream Performed By: #### C UU, ADDONUAPLUS #### [address] Squamous Epithelial Cell,Urine 10-19 High 0-2 [facility] Comment on above: Order Comment: Name Collection Type:: Clean-Voided Midstream Performed By: #### C UU, ADDONUAPLUS #### [address] Urobilinogen,Urine Normal Normal Normal [facility] Comment on above: Order Comment: Name Collection Type:: Clean-Voided Midstream Performed By: #### C UU, ADDONUAPLUS #### [facility] [address] [place] [address] WBC,Urine 20-49 High 0-4 [facility] Comment on above: Order Comment: Name Collection Type:: Clean-Voided Midstream Performed By: #### C UU, ADDONUAPLUS #### [facility] [address] [place] [address] ECG 12 lead ECGon 02-09-2024 ECG 12 lead ECG [facility] [address] [place] [address] Electrocardiograph Report Signed Patient: Nicol Frances MR#: [id number] [birth year] : 1950 Acct:[id number] Age/Sex: 73 / F ADM Date: 02/09/24 Loc: ER Room: Type: [facility] ER Attending Dr: Ordering Provider: Johnny Keen DO Date of Service: 02/09/24 ECG/ECG 12 lead ECG: Fall Copies to: Test Reason : Blood Pressure : 124/064 mmHG Vent. Rate : 086 BPM Atrial Rate : 086 BPM P-R Int : 198 ms QRS Dur : 086 ms QT Int : 382 ms P-R-T Axes : 045 003 030 degrees QTc Int : 457 ms Normal sinus rhythm Normal ECG When compared with ECG of 14-DEC-2022 07:02, No significant change was found Confirmed by Johnny Keen DO ([id number]) on 02/09/2024 3:32:04 PM Referred By: Electronically Signed By:Johnny Keen DO Transcribed By: MUS Signed By Johnny Keen DO 4 1532 Normal [facility] Erythrocyte distribution wid th [Ratio] by Automated countOrdered By: Johnny Keen on 02-09-2024 Erythrocyte distribution width (RBC) [Ratio] 14.1 % 11.9-15.3 [facility] Comment on above: Performed By: #### P T, PTT, BMP, CBC #### [facility] [address] [place] [address] Erythrocytes [#/area] in Uri ne sediment by Automated countOrdered By: Johnny Keen on 02-09-2024 RBC Auto (Urine sed) [#/Area] None seen [HPF] 0-4 [facility] Erythrocytes [#/volume] in B lood by Automated countOrdered By: Johnny Keen on 02-09-2024 RBC (Bld) [#/Vol] 3.73 10*6/uL 3.60-5.00 [facility] Comment on above: Performed By: #### P T, PTT, BMP, CBC #### [facility] [address] Glucose [Mass/volume] in Ser um or PlasmaOrdered By: Johnny Keen on 02-09-2024 Glucose [Mass/Vol] 218 mg/dL High 70-100 [facility] Comment on above: ADA recommended refe rence rangeRandom Glucose Reference Range is dependent on time and content of last meal. Glucose of more than 200 mg/dL in a nonstressed, ambulatory subject supports the diagnosis of Diabetes Mellitus. Result Comment: [place] om Glucose Reference Range is dependent on time and content of last meal. Glucose of more than 200 mg/dL in a nonstressed, ambulatory subject supports the diagnosis of Diabetes Mellitus. ADA recommended reference range Performed By: #### P T, PTT, BMP, CBC #### [facility] [address] Glucose [Mass/volume] in Uri ne by Test stripOrdered By: Johnny Keen on 02-09-2024 Glucose Test strip (U) [Mass/Vol] Normal mg/dL Normal [facility] Hematocrit [Volume Fraction] of Blood by Automated countOrdered By: Johnny Keen on 02-09-2024 Hematocrit (Bld) [Volume fraction] 36.4 % 34.0-46.4 [facility] Comment on above: Performed By: #### P T, PTT, BMP, CBC #### [facility] [address] Hemoglobin Test strip Ql (U) Ordered By: Johnny Keen on 02-09-2024 Hemoglobin Ql (U) 1+ High Negative [facility] Hemoglobin [Mass/volume] in BloodOrdered By: Johnny Keen on 02-09-2024 Hemoglobin (Bld) [Mass/Vol] 12.4 g/dL 11.8-15.4 [facility] Comment on above: Performed By: #### P T, PTT, BMP, CBC #### [facility] [address] INR in Platelet poor plasma by Coagulation assayOrdered By: Johnny Keen on 02-09-2024 INR Coag (PPP) [Relative time] 1.8 {INR} [facility] Comment on above: INR Therapeutic Rang e A) Pre- and Peroperative OAT started two weeks before surgery. NOT HIP SURGERY: 1.5 - 2.5 HIP SURGERY: 2 - 3B) Primary and secondary prevention of venous THROMBOSIS: 2 - 3C) Active venous thrombosis, pulmonary embolismand prevention of recurrent venous thrombosis: 2 - 3D) Prevention of arterial thromboembolismincluding patients with mechanical heart valves: 3 - 4.5 Result Comment: INR Therapeutic Range A) Pre- and Peroperative OAT started two weeks before surgery. NOT HIP SURGERY: 1.5 - 2.5 HIP SURGERY: 2 - 3 B) Primary and secondary prevention of venous THROMBOSIS: 2 - 3 C) Active venous thrombosis, pulmonary embolism and prevention of recurrent venous thrombosis: 2 - 3 D) Prevention of arterial thromboembolism including patients with mechanical heart valves: 3 - 4.5 Performed By: #### P T, PTT, BMP, CBC #### [facility] [address] [place] [address] Ketones [Presence] in Urine by Test stripOrdered By: Johnny Keen on 02-09-2024 Ketones Ql (U) Negative Negative [facility] Comment on above: Order Comment: Name Collection Type:: Clean-Voided Midstream Performed By: #### C UU, ADDONUAPLUS #### [facility] [address] [place] [address] Laboratory - UrinalysisOrder ed By: Johnny Keen on 02-09-2024 Hyaline casts LM Ql (Urine sed) None seen [LPF] 0-8 [facility] Leukocyte esterase [Presence ] in Urine by Test stripOrdered By: Johnny Keen on 02-09-2024 Leukocyte esterase Test strip Ql (U) 4+ High Negative [facility] Comment on above: Order Comment: Name Collection Type:: Clean-Voided Midstream Performed By: #### C UU, ADDONUAPLUS #### [facility] [address] [place] [address] Leukocytes [#/area] in Urine sediment by Automated countOrdered By: Johnny Keen on 02-09-2024 WBC Auto (Urine sed) [#/Area] 20-49 [HPF] High 0-4 [facility] Leukocytes [#/volume] correc darío for nucleated erythrocytes in Blood by Automated counOrdered By: Johnny Keen on 02-09-2024 WBC corrected for nucl RBC Auto (Bld) [#/Vol] 6.0 10*3/uL 3.8-11.6 [facility] Leukocytes [#/volume] in Blo od by Automated countOrdered By: Johnny Keen on 02-09-2024 WBC (Bld) [#/Vol] 6.0 10*3/uL 3.8-11.6 [facility] Comment on above: Performed By: #### P T, PTT, BMP, CBC #### [facility] [address] [place] [address] Lymphocytes [#/volume] in Bl ood by Automated countOrdered By: Johnny Keen on 02-09-2024 Lymphocytes (Bld) [#/Vol] 1.1 10*3/uL 1.00-4.8 [facility] Comment on above: Performed By: #### P T, PTT, BMP, CBC #### [facility] [address] [place] [address] [place] Lymphocytes/100 leukocytes i n Blood by Automated countOrdered By: Johnny Keen on 02-09-2024 Lymphocytes/100 WBC (Bld) 17.6 % . [facility] Comment on above: Performed By: #### P T, PTT, BMP, CBC #### [facility] [address] [place] [address] [place] MCH [Entitic mass] by Automa darío countOrdered By: Johnny Keen on 02-09-2024 MCH (RBC) [Entitic mass] 33.4 pg 24.7-34.3 [facility] Comment on above: Performed By: #### P T, PTT, BMP, CBC #### [facility] [address] MCHC Auto (RBC) [Mass/Vol]Or dered By: Johnny Keen on 02-09-2024 MCHC (RBC) [Mass/Vol] 34.2 g/dL 32.0-35.0 [facility] MCV [Entitic volume] by Auto mated countOrdered By: Johnny Keen on 02-09-2024 MCV (RBC) [Entitic vol] 97.6 fL 80-100 [facility] Comment on above: Performed By: #### P T, PTT, BMP, CBC #### [facility] [address] Monocyte distribution width [Entitic volume] in Blood by AutomatedOrdered By: Johnny Keen on 02-09-2024 Monocyte distribution width Auto (Bld) [Entitic vol] 17.76 % 0.00-20.00 [facility] Neutrophils [#/volume] in Bl ood by Automated countOrdered By: Johnny Keen on 02-09-2024 Neutrophils (Bld) [#/Vol] 4.4 10*3/uL 1.8-7.7 [facility] Comment on above: Performed By: #### P T, PTT, BMP, CBC #### [facility] [address] [place] [address] Nitrite Test strip Ql (U)Ord ered By: Johnny Keen on 02-09-2024 Nitrite Ql (U) Negative Negative [facility] No Panel InformationOrdered By: Johnny Keen on 02-09-2024 Estimated GFR (CKD-EPI) 59.856 mL/Min [facility] Creatinine Clearance (Chem 48.37 [facility] Nucleated erythrocytes [Pres ence] in Blood by Automated countOrdered By: Johnny Keen on 02-09-2024 Nucleated RBC Auto Ql (Bld) 0.0 /100{WBC} 0-0.5 [facility] Partial Thromboplastin Timeo n 02-09-2024 aPTT Coag (Bld) [Time] 37.1 s High 25.1-36.5 [facility] Comment on above: Result Comment: A he matocrit value greater than 55% may lead to inaccurate results in coagulation testing. Patients having hematocrit values >55% require a special collection tube for coagulation studies. Please contact the laboratory at [phone] for redraw instructions. PERFORMED BY: [place] [address] PATHOLOGIST [employer]OD PRODUCTION WORKER GLENYS BARRON M.D. Performed By: #### P T, PTT, BMP, CBC #### [address] Platelet mean volume [Entiti c volume] in Blood by Automated countOrdered By: Johnny Keen on 02-09-2024 Platelet mean volume (Bld) [Entitic vol] 8.4 fL 6.3-10.7 [facility] Comment on above: Performed By: #### P T, PTT, BMP, CBC #### [address] Platelets [#/volume] in Bloo d by Automated countOrdered By: Johnny Keen on 02-09-2024 Platelets (Bld) [#/Vol] 178 10*3/uL 150-450 [facility] Comment on above: Performed By: #### P T, PTT, BMP, CBC #### [address] Potassium [Moles/volume] in Serum or PlasmaOrdered By: Johnny Keen on 02-09-2024 Potassium [Moles/Vol] 3.9 mmol/L 3.5-5.1 [facility] Comment on above: Performed By: #### P T, PTT, BMP, CBC #### [address] Protein Test strip (U) [Mass /Vol]Ordered By: Johnny Kene on 02-09-2024 Protein (U) [Mass/Vol] Negative Negative [facility] Prothrombin time (PT)Ordered By: Johnny Keen on 02-09-2024 PT Coag (PPP) [Time] 20.6 s High 9.0-12.9 [facility] Comment on above: A hematocrit value g reater than 55% may lead to inaccurate results in coagulation testing. Patients having hematocrit values >55% require a special collection tube for coagulation studies. Please contact the laboratory at [phone] for redraw instructions. Result Comment: A he matocrit value greater than 55% may lead to inaccurate results in coagulation testing. Patients having hematocrit values >55% require a special collection tube for coagulation studies. Please contact the laboratory at [phone] for redraw instructions. Performed By: #### P T, PTT, BMP, CBC #### [facility] [address] Serum or plasma anion gap de terminationOrdered By: Johnny Keen on 02-09-2024 Anion gap [Moles/Vol] 12.9 mmol/L 6.0-15.[address] [facility] Comment on above: Performed By: #### P T, PTT, BMP, CBC #### [address] Sodium [Moles/volume] in Ser um or PlasmaOrdered By: Johnny Keen on 02-09-2024 Sodium [Moles/Vol] 134 mmol/L Low 136-145 [facility] Comment on above: Performed By: #### P T, PTT, BMP, CBC #### [facility] [address] [place] [address] Specific gravity Test strip (U) [Rel density]Ordered By: Johnny Keen on 02-09-2024 Specific gravity (U) [Rel density] 1.014 1.001-1.03 0 [facility] Urea nitrogen [Mass/volume] in Serum or PlasmaOrdered By: Johnny Keen on 02-09-2024 Urea nitrogen [Mass/Vol] 22 mg/dL 7-25 [facility] Comment on above: Performed By: #### P T, PTT, BMP, CBC #### [place] [id number] [facility] Urine Cultureon 02-09-2024 Bacteria identified Cx Nom (U) >100,000 colonies/ml mixed bacterial skin contaminants 2 Days PERFORMED BY: [place] [address] PATHOLOGIST [employer] WORKER GLENYS BARRON M.D. Normal [facility] Comment on above: Performed By: #### C UU, ADDONUAPLUS ####[id number] Urine appearanceOrdered By: Johnny Keen on 02-09-2024 Appearance (U) Cloudy Abnormal Clear [facility] Comment on above: Order Comment: Name Collection Type:: Clean-Voided Midstream Performed By: #### C UU, ADDONUAPLUS #### [address] Urine culture routineOrdered By: Johnny Keen on 02-09-2024 Bacteria identified Cx Nom (U) 2 Days [facility] Urobilinogen Test strip (U) [Mass/Vol]Ordered By: Johnny Keen on 02-09-2024 Urobilinogen (U) [Mass/Vol] Normal mg/dL Normal [facility] pH of Urine by Test stripOrd ered By: Johnny Keen on 02-09-2024 pH (U) 6.5 [pH] 5.0-9.0 [facility] Comment on above: Order Comment: Name Collection Type:: Clean-Voided Midstream Performed By: #### C UU, ADDONUAPLUS #### [facility] [address] [place] [address] No Panel Informationon 01-19 Bedside INR (LAB) 2.5 [facility] XR LUMBAR SPINE 2-3 VIEWSon 01-12-2024 XR LUMBAR SPINE 2-3 VIEWS FINDINGS: Thoracolumbar scoliosis is present. Vertebral body heights are normal. Moderate disc space loss throughout the lumbar spine. Sclerosis involves posterior elements of the mid and distal lumbar spine and sacroiliac joints. Chronic appearing L4 spondylolysis, Grade I-II L4-5 anterolisthesis. No acute fracture is identified. Soft tissues are relatively unremarkable. IMPRESSION: Distal lumbar arthritis including L4-5 anterolisthesis, probable chronic spondylolysis, stenosis TRANSCRIBED BY: ELECTRONICALLY SIGNED BY: Noe Leonard MD Normal Not Available No Panel Informationon 01-04 Bedside INR (LAB) 2.1 [facility] Capillary blood glucose flakita urement by glucometer (mass/volume)Ordered By: Sandy Clark on 12-28-2023 Glucose [Mass/Vol] 170 mg/dL Normal [facility] Comment on above: Random Glucose Refer ence Range is dependent on time and content of last meal. Glucose of more than 200 mg/dL in a nonstressed, ambulatory subject supports the diagnosis of Diabetes Mellitus. Result Comment: [place] om Glucose Reference Range is dependent on time and content of last meal. Glucose of more than 200 mg/dL in a nonstressed, ambulatory subject supports the diagnosis of Diabetes Mellitus. Performed By: #### G LULS ####Point of Care testing, Glucose Poct Glucometerson 0 12-28-2023 Commemt1 Glu2: Cleaned Meter Normal [facility] Comment on above: Result Comment: PERF ORMED BY: [facility] [address] [place] [address] PATHOLOGIST FOOD PRODUCTION WORKER GLENYS BARRON M.D. Performed By: #### G LULS ####Point of Care testing, INR in Platelet poor plasma by Coagulation assayOrdered By: Sandy Clark on 12-28-2023 INR Coag (PPP) [Relative time] 1.0 {INR} Normal [facility] Comment on above: INR Therapeutic Rang e A) Pre- and Peroperative OAT started two weeks before surgery. NOT HIP SURGERY: 1.5 - 2.5 HIP SURGERY: 2 - 3B) Primary and secondary prevention of venous THROMBOSIS: 2 - 3C) Active venous thrombosis, pulmonary embolismand prevention of recurrent venous thrombosis: 2 - 3D) Prevention of arterial thromboembolismincluding patients with mechanical heart valves: 3 - 4.5 Result Comment: INR Therapeutic Range A) Pre- and Peroperative OAT started two weeks before surgery. NOT HIP SURGERY: 1.5 - 2.5 HIP SURGERY: 2 - 3 B) Primary and secondary prevention of venous THROMBOSIS: 2 - 3 C) Active venous thrombosis, pulmonary embolism and prevention of recurrent venous thrombosis: 2 - 3 D) Prevention of arterial thromboembolism including patients with mechanical heart valves: 3 - 4.5 PERFORMED BY: [place] [address] PATHOLOGIST FO[employer]ODUCTION WORKER GLENYS BARRON M.D. Performed By: #### P T #### [place] [id number] [facility] Jimbo 12-28-2023 L Specimen: [id number] Received: 12/28/23 Status: JAGDISHSaulo Moe Num: [id number] Spec Type: Surgical Subm Dr: Sandy Clark DO Tissues: A Colon Biopsy (RT COLON) B Colon Biopsy (TRANSV BX) C Colon Biopsy (LT COLON BX) Procedures: HE/6, Gross/Micro L4/3 Age/ Patient Sex Location Account Attending Physician Nicol Frances 73/F [id number] Sandy Clark DO SPEC NUM: [id number] RECD: 12/28/23 STATUS: TIERRA MOE NUM: [id number] ROQUE: 12/28/23 DR: Sandy Clark DO ENTERED: 12/28/23 [facility] DR: SPEC TYPE: Surgical DEPT: S ORDERED: HE/6, Gross/Micro L4/3 ORDERED: HE/6, Gross/Micro L4/3 Pathological Diagnosis A. Right colon, biopsy: No evidence of active colitis. B. Transverse colon, biopsy: No evidence of active colitis. C. Left colon, biopsy: Active chronic colitis with occasional granuloma formation, consistent with active inflammatory bowel disease (favor Crohn's disease). Gross Description Received are 3 formalin filled containers, each labeled with the patient's name, date of and specific specimen site. A. Further labeled right colon biopsy are multiple viera mucosal tissue fragments measuring in aggregate 0.9 x 0.2 x 0.1 cm, entirely submitted in A1. B. Further labeled transverse colon biopsy are multiple viera mucosal tissue fragments measuring in aggregate 1.0 x 0.3 x 0.1 cm, entirely submitted in B1. C. Further labeled left colon biopsy are multiple viera mucosal tissue fragments measuring in aggregate 1.2 x 0.2 x 0.1 cm, entirely submitted in C1. Clinical history: Ulcerative colitis Specimen: [id number] Received: 12/28/23 Status: TIERRA Moe Num: [id number] Spec Type: Surgical Subm Dr: Sandy Clark DO Tissues: A Colon Biopsy (RT COLON) B Colon Biopsy (TRANSV BX) C Colon Biopsy (LT COLON BX) Procedures: HE/6, Gross/Rupert L4/3 Patient: Nicol Frances [id number] (Continued) Specimen: [id number] Received: 12/28/23 (Continued) Signed (signature on file) Ac Beaulieu MD 12/29/23 1414 Specimen: [id number] Received: 12/28/23 Status: TIERRA Moe Num: [id number] Spec Type: Surgical Subm Dr: Sandy Clark DO Tissues: A Colon Biopsy (RT COLON) B Colon Biopsy (TRANSV BX) C Colon Biopsy (LT COLON BX) Procedures: HE/6, Gross/Micro L4/3 Patient: Nicol Frances [id number] (Continued) Specimen: Received: 12/28/23 (Continued) CPT Codes 33769r0 Specimen: [id number] Received: 12/28/23-105 Status: TIERRA Moe Num: [id number] Spec Type: Surgical Subm Dr: Sandy Clark, Tissues: A Colon Biopsy (RT COLON) B Colon Biopsy (TRANSV BX) C Colon Biopsy (LT COLON BX) Procedures: HE/6, Gross/Micro L4/3 Patient: BostephenNicol [id number] (Continued) Signed (signature on file) Ac Beaulieu MD 12/29/23 1414 Normal [facility] No Panel InformationOrdered By: Sandy Clark on 12-28-2023 Bedside Glucose Comment Glu2: cleaned meter [facility] Prothrombin time (PT)Ordered By: Sandy Clark on 12-28-2023 PT Coag (PPP) [Time] 12.1 s Normal 9.0-12.9 [facility] Comment on above: A hematocrit value g reater than 55% may lead to inaccurate results in coagulation testing. Patients having hematocrit values >55% require a special collection tube for coagulation studies. Please contact the laboratory at [phone] for redraw instructions. Result Comment: A he matocrit value greater than 55% may lead to inaccurate results in coagulation testing. Patients having hematocrit values >55% require a special collection tube for coagulation studies. Please contact the laboratory at [phone] for redraw instructions. Performed By: #### P T #### [facility] [address] [place] [id number] [facility] No Panel Informationon 12-13 Bedside INR (LAB) 2.0 [facility] US extremity nonvascularon 0 12-07-2023 US extremity nonvascular [facility] [address] [place] [id number] Mammography Report Signed Patient: Nicol Frances MR#: [id number] [birth year] : 1950 Acct:[id number] Age/Sex: 73 / F ADM Date: 12/07/23 Loc: CT Room: Type: [facility] Attending Dr: Radha Verduzco DO Copies to: DO Kristopher Carvalho DO Ordering Provider: Radha Verduzco DO Date of Service: 12/07/23 MM/MM diagnostic mammo BI w/CAD: Yrly mamms ([id number]) US/US extremity nonvascular: R59.0 CLINICAL DATA: Palpable lymph nodes in left axilla BILATERAL DIAGNOSTIC MAMMOGRAMS - FULL FIELD DIGITAL WITH TOMOSYNTHESIS AND CAD Tomosynthesis craniocaudal and mediolateral oblique views of both breasts were obtained using low- dose digital technique. Comparison is made to prior studies from 12/01/2022, 11/27/2021, 06/04/2021, and 09/10/2018. This examination was reviewed with the aid of CAD. There are scattered fibroglandular densities. Benign-appearing calcifications are present bilaterally. There are prominent but unchanged lymph nodes in the axilla bilaterally. There are no dominant masses, typically malignant calcifications or architectural distortion. There has been no significant interval change. Limited left breast ultrasound: Grayscale and color Doppler sonographic images of the left axillary region were obtained. There are similar benign-appearing lymph nodes measuring up to 4.4 x 2.0 x 0.8 cm in greatest dimension without cortical thickening. A second benign appearing lymph node is noted measuring 1.1 x 0.6 x 1.8 cm in greatest dimension. These are unchanged. MM/MM diagnostic mammo BI w/CAD IMPRESSION: NO MAMMOGRAPHIC OR MAMMOGRAPHIC EVIDENCE OF MALIGNANCY. BENIGN-APPEARING LYMPH NODES ARE NOTED IN THE REGION OF PALPABLE ABNORMALITY IN THE LEFT ADNEXA SHOWING NO SIGNIFICANT INTERVAL CHANGE. ROUTINE FOLLOW-UP IS RECOMMENDED IN ONE YEAR. RESULT CODE: 2 Benign Findings(s) DENSITY CODE: 2 (approximately 25-50% glandular) FOLLOW UP: 1YR The false-negative rate of mammography is approximately 10-percent. Management of a palpable abnormality must be based on clinical grounds. Patient was entered into a reminder system with a target due date for the next mammogram. Impression dictated by: Marcus Galvan M.D.12/07/2023 2:49 PM Dictation Location: [facility] Transcribed By: JAGRUTI 12/07/23 1449 Dictated By: Marcus Galvan II, MD 12/07/23 142 Signed By: 12/07/23 1449 Normal [facility] No Panel Informationon 11-08 Bedside INR (LAB) 2.2 [facility] Prothrombin Time INRon 10-05 INR Coag (PPP) [Relative time] 2.6 {INR} [employer] Other Prothrombin Time INR [facility] [employer] Other Prothrombin Time INRon 09-07 INR Coag (PPP) [Relative time] 2.6 {INR} [employer] Other Prothrombin Time INR [facility] [employer] Other Prothrombin Time INRon 08-11 INR Coag (PPP) [Relative time] 2.4 {INR} [employer] Other Prothrombin Time INR [facility] [employer] Other Prothrombin Time INRon 07-14 INR Coag (PPP) [Relative time] 2.4 {INR} [employer] Other Prothrombin Time INR [facility] [employer] Other Prothrombin Time INRon 06-15 INR Coag (PPP) [Relative time] 2.8 {INR} [employer] Other Prothrombin Time INR [facility] [employer] Other US extremity nonvascularon 1 US extremity nonvascular [facility] [address] [place], [place] [id number] Ultrasound Report Signed Patient: Nicol Frances MR#: [id number] [birth year] : 1950 Acct:[id number] Age/Sex: 73 / F ADM Date: 06/03/23 Loc: [facility] Room: Type: [facility] Attending Dr: Radha Verduzco DO Ordering Provider: Radha Verduzco DO Date of Service: 06/03/23 US/US extremity nonvascular: 6mos. f/u Lt. axillary US;Axillary lymphadenopathy Copies to: Radha Verduzco DO US extremity nonvascular 06/03/2023 9:13 AM SIGNS AND SYMPTOMS: 6mos. f/u Lt. axillary US;Axillary lymphadenopathy COMPARISON: 1020.3 and 06/09/2022 FINDINGS: Within the left axilla there is a benign-appearing 4.4 x 0.8 x 2.0 cm reniform benign-appearing lymph node with echogenic fat in the hilum. This is similar to the prior exam. A second benign-appearing lymph node is noted measuring 1.1 x 0.6 x 1.5 cm in greatest dimension showing no significant interval change. US/US extremity nonvascular IMPRESSION: Unchanged benign-appearing lymph nodes are noted in the left axilla. These are presumably benign in nature. ASSESSMENT: BIRADS-2 Benign RECOMMENDATION: If the patient's physical exam remains unchanged, annual routine screening mammography is recommended. Impression dictated by: Marcus Galvan M.D.06/03/2023 10:03 AM Dictation Location: [facility] Tech: Venita Tirado Transcribed By: JAGRUTI 06/03/23 100 Dictated By: Marcus Galvan II, MD 06/03/23956 Signed By: 06/03/231002 Normal [facility] Prothrombin Time INRon 04-30 INR Coag (PPP) [Relative time] 2.6 {INR} [employer] Other Prothrombin Time INR [employer] Other Prothrombin Time INRon 04-08 INR Coag (PPP) [Relative time] 3.1 {INR} [employer] Other Prothrombin Time INR [employer] Other Prothrombin Time INRon 03-23 INR Coag (PPP) [Relative time] 2.3 {INR} [employer] Other Prothrombin Time INR [facility] [employer] Other Prothrombin Time INRon 03-11 INR Coag (PPP) [Relative time] 3.2 {INR} [employer] Other Prothrombin Time INR [employer] Other Prothrombin Time INRon 02-23 INR Coag (PPP) [Relative time] 3.4 {INR} [employer] Other Prothrombin Time INR [employer] Other Laboratory - CoagulationOrde red By: Gabriel Castaneda on 12-17-2022 PT Coag (PPP) [Time] 21.0 s 9.0-12.9 [facility] Platelet poor plasma interna tional normalized ratio (INR) by coagulation assay (relatOrdered By: Gabriel Castaneda on 12-17-2022 INR Coag (PPP) [Relative time] 1.8 {INR} [facility] [facility] Comment on above: INR Therapeutic Rang e A) Pre- and Peroperative OAT started two weeks before surgery. NOT HIP SURGERY: 1.5 - 2.5 HIP SURGERY: 2 - 3B) Primary and secondary prevention of venous THROMBOSIS: 2 - 3C) Active venous thrombosis, pulmonary embolismand prevention of recurrent venous thrombosis: 2 - 3D) Prevention of arterial thromboembolismincluding patients with mechanical heart valves: 3 - 4.5 Glucose Glucometer (BldC) [M ass/Vol]Ordered By: Gabriel Castaneda on 12-15-2022 Glucose [Mass/Vol] 223 mg/dL [facility] Comment on above: Random Glucose Refer ence Range is dependent on time and content of last meal. Glucose of more than 200 mg/dL in a nonstressed, ambulatory subject supports the diagnosis of Diabetes Mellitus. Laboratory - CoagulationOrde red By: Rosalina Shelton on 12-15-2022 PT Coag (PPP) [Time] 15.7 s 9.0-12.9 [facility] No Panel InformationOrdered By: Gabriel Castaneda on 12-15-2022 Bedside Glucose Comment Glu2: cleaned meter [facility] Platelet poor plasma interna tional normalized ratio (INR) by coagulation assay (relatOrdered By: Rosalina Shelton on 12-15-2022 INR Coag (PPP) [Relative time] 1.4 {INR} [facility] Comment on above: INR Therapeutic Rang e A) Pre- and Peroperative OAT started two weeks before surgery. NOT HIP SURGERY: 1.5 - 2.5 HIP SURGERY: 2 - 3B) Primary and secondary prevention of venous THROMBOSIS: 2 - 3C) Active venous thrombosis, pulmonary embolismand prevention of recurrent venous thrombosis: 2 - 3D) Prevention of arterial thromboembolismincluding patients with mechanical heart valves: 3 - 4.5 Basophils Auto (Bld) [#/Vol] Ordered By: Rosalina Shelton on 12-14-2022 Basophils (Bld) [#/Vol] 0.0 10*3/uL 0.0-0.2 [facility] Basophils/100 WBC Auto (Bld) Ordered By: Rosalina Shelton on 12-14-2022 Basophils/100 WBC (Bld) 1.0 % . [facility] Calcium [Mass/volume] in Ser um or PlasmaOrdered By: Rosalina Shelton on 12-14-2022 Calcium [Mass/Vol] 8.1 mg/dL 8.6-10.3 [facility] Carbon dioxide, total [Moles /volume] in Serum or PlasmaOrdered By: Rosalina Shelton on 12-14-2022 CO2 [Moles/Vol] 24.8 mmol/L 21.0-31.0 [facility] Chloride [Moles/volume] in S remi or PlasmaOrdered By: Rosalina Shelton on 12-14-2022 Chloride [Moles/Vol] 105 mmol/L 98-107 [facility] Creatinine [Mass/volume] in Serum or PlasmaOrdered By: Rosalina Shelton on 12-14-2022 Creatinine [Mass/Vol] 0.98 mg/dL 0.60-1.20 [facility] Eosinophils Auto (Bld) [#/Vo l]Ordered By: Rosalina Shelton on 12-14-2022 Eosinophils (Bld) [#/Vol] 0.1 10*3/uL 0.0-0.45 [facility] Eosinophils/100 WBC Auto (Bl d)Ordered By: Rosalina Shelton on 12-14-2022 Eosinophils/100 WBC (Bld) 2.0 % . [facility] Erythrocyte distribution wid th Auto (RBC) [Ratio]Ordered By: Rosalina Shelton on 12-14-2022 Erythrocyte distribution width (RBC) [Ratio] 14.3 % 11.9-15.3 [facility] Glucose [Mass/volume] in Ser um or PlasmaOrdered By: Rosalina Shelton on 12-14-2022 Glucose [Mass/Vol] 149 mg/dL 70-100 [facility] Comment on above: ADA recommended refe rence rangeRandom Glucose Reference Range is dependent on time and content of last meal. Glucose of more than 200 mg/dL in a nonstressed, ambulatory subject supports the diagnosis of Diabetes Mellitus. Hematocrit Auto (Bld) [Volum e fraction]Ordered By: Rosalina Shelton on 12-14-2022 Hematocrit (Bld) [Volume fraction] 36.1 % 34.0-46.4 [facility] Hemoglobin [Mass/volume] in BloodOrdered By: Rosalina Shelton on 12-14-2022 Hemoglobin (Bld) [Mass/Vol] 12.1 g/dL 11.8-15.4 [facility] Leukocytes [#/volume] correc darío for nucleated erythrocytes in Blood by Automated counOrdered By: Rosalina Shelton on 12-14-2022 WBC corrected for nucl RBC Auto (Bld) [#/Vol] 4.4 10*3/uL 3.8-11.6 [facility] Lymphocytes Auto (Bld) [#/Vo l]Ordered By: Rosalina Shelton on 12-14-2022 Lymphocytes (Bld) [#/Vol] 1.3 10*3/uL 1.00-4.8 [facility] Lymphocytes/100 WBC Auto (Bl d)Ordered By: Rosalina Shelton on 12-14-2022 Lymphocytes/100 WBC (Bld) 28.6 % . [facility] MCH Auto (RBC) [Entitic mass ]Ordered By: Rosalina Shelton on 12-14-2022 MCH (RBC) [Entitic mass] 32.2 pg 24.7-34.3 [facility] MCHC Auto (RBC) [Mass/Vol]Or dered By: Rosalina Shelton on 12-14-2022 MCHC (RBC) [Mass/Vol] 33.4 g/dL 32.0-35.0 [facility] MCV Auto (RBC) [Entitic vol] Ordered By: Rosalina Shelton on 12-14-2022 MCV (RBC) [Entitic vol] 96.3 fL 80-100 [facility] Monocytes Auto (Bld) [#/Vol] Ordered By: Rosalina Shelton on 12-14-2022 Monocytes (Bld) [#/Vol] 0.5 10*3/uL 0.0-0.8 [facility] Monocytes/100 WBC Auto (Bld) Ordered By: Rosalina Shelton on 12-14-2022 Monocytes/100 WBC (Bld) 11.6 % . [facility] Neutrophils Auto (Bld) [#/Vo l]Ordered By: Rosalina Shelton on 12-14-2022 Neutrophils (Bld) [#/Vol] 2.5 10*3/uL 1.8-7.7 [facility] Neutrophils/100 WBC Auto (Bl d)Ordered By: Rosalina Victore on 12-14-2022 Neutrophils/100 WBC (Bld) 56.8 % . [facility] No Panel InformationOrdered By: Rosalina Shelton on 04-23-2023 Estimated GFR (CKD-EPI) > 60.0 mL/Min [facility] Creatinine Clearance (Chem 54.33 [facility] Nucleated erythrocytes [Pres ence] in Blood by Automated countOrdered By: Rosalina Shelton on 12-14-2022 Nucleated RBC Auto Ql (Bld) 0.1 /100{WBC} 0-0.5 [facility] Platelet mean volume Auto (B ld) [Entitic vol]Ordered By: Rosalina Shelton on 12-14-2022 Platelet mean volume (Bld) [Entitic vol] 8.3 fL 6.3-10.7 [facility] Platelets Auto (Bld) [#/Vol] Ordered By: Rosalina Shelton on 12-14-2022 Platelets (Bld) [#/Vol] 197 10*3/uL 150-450 [facility] Potassium [Moles/volume] in Serum or PlasmaOrdered By: Rosalina Shelton on 12-14-2022 Potassium [Moles/Vol] 4.1 mmol/L 3.5-5.1 [facility] RBC Auto (Bld) [#/Vol]Ordere d By: Rosalina Shelton on 12-14-2022 RBC (Bld) [#/Vol] 3.75 10*6/uL 3.60-5.00 [facility] Serum or plasma anion gap de terminationOrdered By: Rosalina Shelton on 12-14-2022 Anion gap [Moles/Vol] TNP [facility] Comment on above: Test not performed Sodium [Moles/volume] in Ser um or PlasmaOrdered By: Rosalina Shelton on 12-14-2022 Sodium [Moles/Vol] 135 mmol/L 136-145 [facility] Comment on above: Hemolysis is present at a level that could interfere with the result. Troponin I.cardiac [Mass/vol ume] in Serum or Plasma by Detection limit <= 0.01 ng/Ordered By: Rosalina Shelton on 12-14-2022 Troponin I.cardiac DL <= 0.01 ng/mL [Mass/Vol] 6.3 pg/mL 0.0-15.0 [facility] Urea nitrogen [Mass/volume] in Serum or PlasmaOrdered By: Rosalina Shelton on 12-14-2022 Urea nitrogen [Mass/Vol] 13 mg/dL 7-25 [facility] WBC Auto (Bld) [#/Vol]Ordere d By: Rosalina Shelton on 12-14-2022 WBC (Bld) [#/Vol] 4.4 10*3/uL 3.8-11.6 [facility] Activated partial thrombopla stin time (aPTT) in platelet poor plasma by coagulation aOrdered By: Celio Lobo on 12-13-2022 aPTT Coag (PPP) [Time] 38.0 s 25.1-36.[address] [facility] Alanine aminotransferase [En zymatic activity/volume] in Serum or PlasmaOrdered By: Celio Lobo on 12-13-2022 ALT [Catalytic activity/Vol] 14 U/L 7-52 [facility] Albumin [Mass/volume] in Ser um or Plasma by Bromocresol green (BCG) dye binding methoOrdered By: Celio Lobo on 12-13-2022 Albumin BCG dye [Mass/Vol] 3.8 g/dL 3.5-5.7 [facility] Alkaline phosphatase [Enzyma tic activity/volume] in Serum or PlasmaOrdered By: Celio Lobo on 12-13-2022 ALP [Catalytic activity/Vol] 51 U/L 34-104 [facility] Aspartate aminotransferase [ Enzymatic activity/volume] in Serum or PlasmaOrdered By: Celio Lobo on 12-13-2022 AST [Catalytic activity/Vol] 18 U/L 13-39 [facility] Basophils Auto (Bld) [#/Vol] Ordered By: Celio Lobo on 12-13-2022 Basophils (Bld) [#/Vol] 0.0 10*3/uL 0.0-0.2 [facility] Basophils/100 WBC Auto (Bld) Ordered By: Celio Lobo on 12-13-2022 Basophils/100 WBC (Bld) 1.0 % . [facility] Bilirubin Test strip Ql (U)O rdered By: Celio Lobo on 12-13-2022 Bilirubin Ql (U) Negative Negative [facility] Bilirubin.total [Mass/volume ] in Serum or PlasmaOrdered By: Celio Lobo on 12-13-2022 Bilirubin [Mass/Vol] 0.3 mg/dL 0.3-1.0 [facility] Calcium [Mass/volume] in Ser um or PlasmaOrdered By: Celio Lobo on 12-13-2022 Calcium [Mass/Vol] 8.5 mg/dL 8.6-10.3 [facility] Carbon dioxide, total [Moles /volume] in Serum or PlasmaOrdered By: Celio Lobo on 12-13-2022 CO2 [Moles/Vol] 23.2 mmol/L 21.0-31.0 [facility] Chloride [Moles/volume] in S remi or PlasmaOrdered By: Celio Lobo on 12-13-2022 Chloride [Moles/Vol] 106 mmol/L 98-107 [facility] Color Auto (U)Ordered By: Perez Lobo on 12-13-2022 Color (U) Yellow Yellow [facility] Creatinine [Mass/volume] in Serum or PlasmaOrdered By: Celio Lobo on 12-13-2022 Creatinine [Mass/Vol] 1.06 mg/dL 0.60-1.20 [facility] Eosinophils Auto (Bld) [#/Vo l]Ordered By: Celio Lobo on 12-13-2022 Eosinophils (Bld) [#/Vol] 0.1 10*3/uL 0.0-0.45 [facility] Eosinophils/100 WBC Auto (Bl d)Ordered By: Celio Lobo 12-13-2022 Eosinophils/100 WBC (Bld) 1.2 % . [facility] Erythrocyte distribution wid th Auto (RBC) [Ratio]Ordered By: Celio Lobo on 12-13-2022 Erythrocyte distribution width (RBC) [Ratio] 14.6 % 11.9-15.3 [facility] Globulin Calc (S) [Mass/Vol] Ordered By: Celio Lobo 12-13-2022 Globulin (S) [Mass/Vol] 2.8 g/dL [facility] Glucose Glucometer (BldC) [M ass/Vol]Ordered By: Celio Lobo on 12-13-2022 Glucose [Mass/Vol] 96 mg/dL [facility] Comment on above: Random Glucose Refer ence Range is dependent on time and content of last meal. Glucose of more than 200 mg/dL in a nonstressed, ambulatory subject supports the diagnosis of Diabetes Mellitus. Glucose [Mass/volume] in Ser um or PlasmaOrdered By: Celio Lobo on 12-13-2022 Glucose [Mass/Vol] 152 mg/dL 70-100 [facility] Comment on above: ADA recommended refe rence rangeRandom Glucose Reference Range is dependent on time and content of last meal. Glucose of more than 200 mg/dL in a nonstressed, ambulatory subject supports the diagnosis of Diabetes Mellitus. Hematocrit Auto (Bld) [Volum e fraction]Ordered By: Celio Lobo on 12-13-2022 Hematocrit (Bld) [Volume fraction] 37.8 % 34.0-46.4 [facility] Hemoglobin [Mass/volume] in BloodOrdered By: Celio Lobo on 12-13-2022 Hemoglobin (Bld) [Mass/Vol] 12.5 g/dL 11.8-15.4 [facility] Ketones Auto test strip (U) [Mass/Vol]Ordered By: Celio Lobo on 12-13-2022 Ketones (U) [Mass/Vol] Negative Negative Fi [facility] Laboratory - CoagulationOrde red By: Celio Lobo on 12-13-2022 PT Coag (PPP) [Time] 23.1 s 9.0-12.9 [facility] Leukocytes [#/volume] correc darío for nucleated erythrocytes in Blood by Automated counOrdered By: Celio Lobo on 12-13-2022 WBC corrected for nucl RBC Auto (Bld) [#/Vol] 4.9 10*3/uL 3.8-11.6 [facility] Lymphocytes Auto (Bld) [#/Vo l]Ordered By: Celio Lobo on 12-13-2022 Lymphocytes (Bld) [#/Vol] 1.5 10*3/uL 1.00-4.8 [facility] Lymphocytes/100 WBC Auto (Bl d)Ordered By: Celio Lobo on 12-13-2022 Lymphocytes/100 WBC (Bld) 29.8 % . [facility] MCH Auto (RBC) [Entitic mass ]Ordered By: Celio Lobo on 12-13-2022 MCH (RBC) [Entitic mass] 31.8 pg 24.7-34.3 [facility] MCHC Auto (RBC) [Mass/Vol]Or dered By: Celio Lobo on 12-13-2022 MCHC (RBC) [Mass/Vol] 33.1 g/dL 32.0-35.0 [facility] MCV Auto (RBC) [Entitic vol] Ordered By: Celio Lobo on 12-13-2022 MCV (RBC) [Entitic vol] 96.0 fL 80-100 [facility] Magnesium [Mass/volume] in S remi or PlasmaOrdered By: Rosalina Shelton on 12-13-2022 Magnesium [Mass/Vol] 1.9 mg/dL 1.9-2.7 [facility] Magnesium [Mass/volume] in S remi or PlasmaOrdered By: Celio Lobo on 12-13-2022 Magnesium [Mass/Vol] 2.0 mg/dL 1.9-2.7 [facility] Monocyte distribution width [Entitic volume] in Blood by AutomatedOrdered By: Celio Lobo on 12-13-2022 Monocyte distribution width Auto (Bld) [Entitic vol] 18.43 % 0.00-20.00 [facility] Monocytes Auto (Bld) [#/Vol] Ordered By: Celio Lobo on 12-13-2022 Monocytes (Bld) [#/Vol] 0.5 10*3/uL 0.0-0.8 [facility] Monocytes/100 WBC Auto (Bld) Ordered By: Celio Lobo on 12-13-2022 Monocytes/100 WBC (Bld) 9.9 % . [facility] Natriuretic peptide B [Mass/ Vol]Ordered By: Celio Lobo on 12-13-2022 Natriuretic peptide B (Bld) [Mass/Vol] 105.0 pg/mL 5-100 [facility] Neutrophils Auto (Bld) [#/Vo l]Ordered By: Celio Lobo on 12-13-2022 Neutrophils (Bld) [#/Vol] 2.8 10*3/uL 1.8-7.7 [facility] Neutrophils/100 WBC Auto (Bl d)Ordered By: Celio Lobo on 12-13-2022 Neutrophils/100 WBC (Bld) 58.1 % . [facility] Nitrite Test strip Ql (U)Ord ered By: Celio Lobo on 12-13-2022 Nitrite Ql (U) Negative Negative [facility] No Panel InformationOrdered By: Celio Lobo on 12-13-2022 Bedside Glucose #2 Comment Cleaned meter [facility] Bedside Glucose Comment See comment [facility] Comment on above: Glu2: WILL NOTIFY DR /RN Estimated GFR (CKD-EPI) 56.163 mL/Min [facility] Creatinine Clearance (Chem 51.30 [facility] No Panel InformationOrdered By: Rosalina Shelton on 12-13-2022 D-Dimer Quantitative (PE/DVT) < 200 ng/mL 0-243 [facility] Comment on above: The reference range for D-dimer is <243 ng/mL D-dimer units.D-dimer results must be used in conjunction with a clinicalpretest probability (PTP) assessment model for deep veinthrombosis (DVT) and pulmonary embolism (PE). Results <230ng/mL d-dimer units can be used as a negative predictor inpatients with low or moderate probability for DVT/PE.Results above the exclusion threshold of 230 ng/ml D-dimerunits for DVT/PE may indicate the need for furtherdiagnostic testing.D-Dimer can be increased in hospitalized patients due toco-morbid conditions. Nucleated erythrocytes [Pres ence] in Blood by Automated countOrdered By: Celio Lobo on 12-13-2022 Nucleated RBC Auto Ql (Bld) 0.0 /100{WBC} 0-0.5 [facility] Platelet mean volume Auto (B ld) [Entitic vol]Ordered By: Celio Lobo on 12-13-2022 Platelet mean volume (Bld) [Entitic vol] 8.4 fL 6.3-10.7 [facility] Platelet poor plasma interna tional normalized ratio (INR) by coagulation assay (relatOrdered By: Celio Lobo on 12-13-2022 INR Coag (PPP) [Relative time] 2.0 {INR} [facility] Comment on above: INR Therapeutic Rang e A) Pre- and Peroperative OAT started two weeks before surgery. NOT HIP SURGERY: 1.5 - 2.5 HIP SURGERY: 2 - 3B) Primary and secondary prevention of venous THROMBOSIS: 2 - 3C) Active venous thrombosis, pulmonary embolismand prevention of recurrent venous thrombosis: 2 - 3D) Prevention of arterial thromboembolismincluding patients with mechanical heart valves: 3 - 4.5 Platelets Auto (Bld) [#/Vol] Ordered By: Celio Lobo on 12-13-2022 Platelets (Bld) [#/Vol] 221 10*3/uL 150-450 [facility] Potassium [Moles/volume] in Serum or PlasmaOrdered By: Celio Lobo on 12-13-2022 Potassium [Moles/Vol] 4.0 mmol/L 3.5-5.1 [facility] Protein Auto test strip (U) [Mass/Vol]Ordered By: Celio Lobo on 12-13-2022 Protein (U) [Mass/Vol] Negative Negative Fi [facility] Protein [Mass/volume] in Ser um or PlasmaOrdered By: Celio Lobo on 12-13-2022 Protein [Mass/Vol] 6.6 g/dL 6.4-8.9 [facility] RBC Auto (Bld) [#/Vol]Ordere d By: Celio Lobo on 12-13-2022 RBC (Bld) [#/Vol] 3.94 10*6/uL 3.60-5.00 [facility] Serum or plasma albumin/glob ulin mass ratioOrdered By: Celio Lobo 12-13-2022 Albumin/Globulin [Mass ratio] 1.4 {ratio} [facility] Serum or plasma anion gap de terminationOrdered By: Celio Lobo 12-13-2022 Anion gap [Moles/Vol] 11.8 mmol/L 6.0-15.0 [facility] Sodium [Moles/volume] in Ser um or PlasmaOrdered By: Celio Lobo on 12-13-2022 Sodium [Moles/Vol] 137 mmol/L 136-145 [facility] Specific gravity Auto test s trip (U) [Rel density]Ordered By: Celio Lobo 12-13-2022 Specific gravity (U) [Rel density] 1.006 1.001-1.03 0 [facility] Thyrotropin [Units/volume] i n Serum or PlasmaOrdered By: Rosalina Shelton on 12-13-2022 TSH Qn 4.39 m[IU]/L 0.45-5.33 [facility] Troponin I.cardiac [Mass/vol ume] in Serum or Plasma by Detection limit <= 0.01 ng/Ordered By: Celio Lobo on 12-13-2022 Troponin I.cardiac DL <= 0.01 ng/mL [Mass/Vol] 6.4 pg/mL 0.0-15.0 [facility] Urea nitrogen [Mass/volume] in Serum or PlasmaOrdered By: Celio Lobo on 12-13-2022 Urea nitrogen [Mass/Vol] 15 mg/dL 7-25 [facility] Urine clarity by refractomet ry automatedOrdered By: Celio Lobo on 12-13-2022 Clarity Refractometry automated (U) Clear Clear [facility] Urine glucose measurement by automated test strip (mass/volume)Ordered By: Celio Lobo on 12-13-2022 Glucose Auto test strip (U) [Mass/Vol] Normal mg/dL Normal [facility] Urine hemoglobin detection b y automated test stripOrdered By: Celio Lobo on 12-13-2022 Hemoglobin Auto test strip Ql (U) Negative Negative [facility] Urine leukocyte esterase det ection by automated test stripOrdered By: Celio Lobo on 12-13-2022 Leukocyte esterase Auto test strip Ql (U) Negative Negative [facility] Urobilinogen Auto test strip (U) [Mass/Vol]Ordered By: Celio Lobo on 12-13-2022 Urobilinogen (U) [Mass/Vol] Normal mg/dL Normal [facility] WBC Auto (Bld) [#/Vol]Ordere d By: Celio Lobo on 12-13-2022 WBC (Bld) [#/Vol] 4.9 10*3/uL 3.8-11.6 [facility] pH Auto test strip (U)Ordere d By: Celio Lobo on 12-13-2022 pH (U) 8.0 [pH] 5.0-9.0 [facility] Prothrombin Time INRon 12-10 INR Coag (PPP) [Relative time] 2.5 {INR} [employer] Other Prothrombin Time INR [employer] Other Prothrombin Time INRon 11-12 INR Coag (PPP) [Relative time] 2.7 {INR} [employer] Other Prothrombin Time INR [employer] Other Prothrombin Time INRon 10-15 INR Coag (PPP) [Relative time] 2.7 {INR} [employer] Other Prothrombin Time INR [employer] Other Automated erythrocytes count in urine sediment (number/area)Ordered By: Edmond Branham on 09-23-2022 RBC Auto (Urine sed) [#/Area] 1-2 [HPF] 0-4 [facility] Automated leukocytes count i n urine sediment (number/area)Ordered By: Edmond Branham on 09-23-2022 WBC Auto (Urine sed) [#/Area] 5-9 [HPF] 0-4 [facility] Basophils Auto (Bld) [#/Vol] Ordered By: Edmond Branham on 09-23-2022 Basophils (Bld) [#/Vol] 0.1 10*3/uL 0.0-0.2 [facility] Basophils/100 WBC Auto (Bld) Ordered By: Edmond Branham on 09-23-2022 Basophils/100 WBC (Bld) 1.1 % . [facility] Bilirubin Test strip Ql (U)O rdered By: Edmond Branham on 09-23-2022 Bilirubin Ql (U) Negative Negative [facility] Body fluid albumin measureme nt (mass/volume)Ordered By: Edmond Branham on 09-23-2022 Albumin (Body fld) [Mass/Vol] 3.7 g/dL 3.2-5.5 [facility] Color Auto (U)Ordered By: Kailey Branham on 09-23-2022 Color (U) Dark yellow Yellow [facility] Creatinine and Glomerular fi ltration rate.predicted panel (S/P/Bld)Ordered By: Edmond Branham on 09-23-2022 Creatinine [Mass/Vol] 1.15 mg/dL 0.44-1.03 [facility] Eosinophils Auto (Bld) [#/Vo l]Ordered By: Edmond Branham on 09-23-2022 Eosinophils (Bld) [#/Vol] 0.1 10*3/uL 0.0-0.45 [facility] Eosinophils/100 WBC Auto (Bl d)Ordered By: Edmond Branham on 09-23-2022 Eosinophils/100 WBC (Bld) 1.7 % . [facility] Erythrocyte distribution wid th Auto (RBC) [Ratio]Ordered By: Edmond Branham on 09-23-2022 Erythrocyte distribution width (RBC) [Ratio] 15.0 % 11.9-15.3 [facility] Estimated glomerular filtrat ion rate (GFR) non- AmericanOrdered By: Edmond Branham on 09-23-2022 GFR/1.73 sq M.predicted among non-blacks MDRD (S/P/Bld) [Vol rate/Area] 47 mL/Min [facility] Globulin Calc (S) [Mass/Vol] Ordered By: Edmond Branham on 09-23-2022 Globulin (S) [Mass/Vol] 2.9 g/dL [facility] Glucose Glucometer (BldC) [M ass/Vol]Ordered By: Edmond Branham on 09-23-2022 Glucose [Mass/Vol] 108 mg/dL [facility] Comment on above: Random Glucose Refer ence Range is dependent on time and content of last meal. Glucose of more than 200 mg/dL in a nonstressed, ambulatory subject supports the diagnosis of Diabetes Mellitus. Hematocrit Auto (Bld) [Volum e fraction]Ordered By: Edmond Branham on 09-23-2022 Hematocrit (Bld) [Volume fraction] 39.1 % 34.0-46.4 [facility] Hemoglobin [Mass/volume] in BloodOrdered By: Edmond Branham on 09-23-2022 Hemoglobin (Bld) [Mass/Vol] 13.3 g/dL 11.8-15.4 [facility] Ketones Auto test strip (U) [Mass/Vol]Ordered By: Edmond Branham on 09-23-2022 Ketones (U) [Mass/Vol] Negative Negative Fi [facility] Laboratory - UrinalysisOrder ed By: Edmond Branham on 09-23-2022 Hyaline casts LM Ql (Urine sed) 0-8 [LPF] 0-8 [facility] Leukocytes [#/volume] correc darío for nucleated erythrocytes in Blood by Automated counOrdered By: Edmond Branham on 09-23-2022 WBC corrected for nucl RBC Auto (Bld) [#/Vol] 5.2 10*3/uL 3.8-11.6 [facility] Lymphocytes Auto (Bld) [#/Vo l]Ordered By: Edmond Branham on 09-23-2022 Lymphocytes (Bld) [#/Vol] 1.6 10*3/uL 1.00-4.8 [facility] Lymphocytes/100 WBC Auto (Bl d)Ordered By: Edmond Branham on 09-23-2022 Lymphocytes/100 WBC (Bld) 31.1 % . [facility] MCH Auto (RBC) [Entitic mass ]Ordered By: Edmond Branham on 09-23-2022 MCH (RBC) [Entitic mass] 32.3 pg 24.7-34.3 [facility] MCHC Auto (RBC) [Mass/Vol]Or dered By: Edmond Branham on 09-23-2022 MCHC (RBC) [Mass/Vol] 34.0 g/dL 32.0-35.0 [facility] MCV Auto (RBC) [Entitic vol] Ordered By: Edmond Branham on 09-23-2022 MCV (RBC) [Entitic vol] 95.2 fL 80-100 [facility] Monocyte distribution width [Entitic volume] in Blood by AutomatedOrdered By: Edmond Branham on 09-23-2022 Monocyte distribution width Auto (Bld) [Entitic vol] 19.36 % 0.00-20.00 [facility] Monocytes Auto (Bld) [#/Vol] Ordered By: Edmond Branham on 09-23-2022 Monocytes (Bld) [#/Vol] 0.5 10*3/uL 0.0-0.8 [facility] Monocytes/100 WBC Auto (Bld) Ordered By: Edmond Branham on 09-23-2022 Monocytes/100 WBC (Bld) 10.2 % . [facility] Neutrophils Auto (Bld) [#/Vo l]Ordered By: Edmond Branham on 09-23-2022 Neutrophils (Bld) [#/Vol] 2.9 10*3/uL 1.8-7.7 [facility] Neutrophils/100 WBC Auto (Bl d)Ordered By: Edmond Branham on 09-23-2022 Neutrophils/100 WBC (Bld) 55.9 % . [facility] Nitrite Test strip Ql (U)Ord ered By: Edmond Branham on 09-23-2022 Nitrite Ql (U) Negative Negative [facility] No Panel InformationOrdered By: Edmond Branham on 09-23-2022 Estimated GFR () 56 mL/Min [facility] Comment on above: GFR estimated refere nce range: According to KDOQI guidelines, <60 ml/min/1.73m2 is sufficient to diagnose a patient with chronic kidney disease. Pharmacy Creatinine Clearance (Chem 46.55 [facility] Nucleated erythrocytes [Pres ence] in Blood by Automated countOrdered By: Edmond Branham on 09-23-2022 Nucleated RBC Auto Ql (Bld) 0.1 /100{WBC} 0-0.5 [facility] Platelet mean volume Auto (B ld) [Entitic vol]Ordered By: Edmond Branham on 09-23-2022 Platelet mean volume (Bld) [Entitic vol] 8.1 fL 6.3-10.7 [facility] Platelets Auto (Bld) [#/Vol] Ordered By: Edmond Branham on 09-23-2022 Platelets (Bld) [#/Vol] 183 10*3/uL 150-450 [facility] Protein Auto test strip (U) [Mass/Vol]Ordered By: Edmond Branham on 09-23-2022 Protein (U) [Mass/Vol] Negative Negative [facility] Protein [Mass/volume] in Ser um or PlasmaOrdered By: Edmond Branham on 09-23-2022 Protein [Mass/Vol] 6.6 g/dL 6.1-7.9 [facility] RBC Auto (Bld) [#/Vol]Ordere d By: Edmond Branham on 09-23-2022 RBC (Bld) [#/Vol] 4.10 10*6/uL 3.60-5.00 [facility] Serum or plasma alanine lugo otransferase measurement without P-5'-P (enzymatic activiOrdered By: Edmond Branham on 09-23-2022 ALT No additional P-5'-P [Catalytic activity/Vol] 15 U/L 10-60 [facility] Serum or plasma albumin/glob ulin mass ratioOrdered By: Edmond Branham on 09-23-2022 Albumin/Globulin [Mass ratio] 1.3 {ratio} [facility] Serum or plasma alkaline elijah sphatase measurement (enzymatic activity/volume)Ordered By: Edmond Branham on 09-23-2022 ALP [Catalytic activity/Vol] 57 U/L 32-92 [facility] Serum or plasma anion gap de terminationOrdered By: Edmond Branham on 09-23-2022 Anion gap [Moles/Vol] 15.9 mmol/L 6.0-15.[address] [facility] Serum or plasma aspartate am inotransferase measurement (enzymatic activity/volume)Ordered By: Edmond Branham on 09-23-2022 AST [Catalytic activity/Vol] 20 U/L 10-42 [facility] Serum or plasma calcium flakita urement (mass/volume)Ordered By: Edmond Branham on 09-23-2022 Calcium [Mass/Vol] 9.3 mg/dL 8.2-10.2 [facility] Serum or plasma chloride patrice surement (moles/volume)Ordered By: Edmond Branham on 09-23-2022 Chloride [Moles/Vol] 103 mmol/L 95-114 [facility] Serum or plasma glucose flakita urement (mass/volume)Ordered By: Edmond Branham on 09-23-2022 Glucose [Mass/Vol] 103 mg/dL 70-100 [facility] Comment on above: ADA recommended refe rence rangeRandom Glucose Reference Range is dependent on time and content of last meal. Glucose of more than 200 mg/dL in a nonstressed, ambulatory subject supports the diagnosis of Diabetes Mellitus. Serum or plasma potassium me asurement (moles/volume)Ordered By: Edmond Branham on 09-23-2022 Potassium [Moles/Vol] 3.5 mmol/L 3.5-5.1 [facility] Serum or plasma sodium measu rement (moles/volume)Ordered By: Edmond Branham on 09-23-2022 Sodium [Moles/Vol] 137 mmol/L 136-146 [facility] Serum or plasma total biliru bin measurement (mass/volume)Ordered By: Edmond Branham on 09-23-2022 Bilirubin [Mass/Vol] 0.4 mg/dL 0.3-1.2 [facility] Serum or plasma total carbon dioxide measurement (moles/volume)Ordered By: Edmond Branham on 09-23-2022 CO2 [Moles/Vol] 21.6 mmol/L 22.0-30.0 [facility] Serum or plasma urea nitroge n measurement (mass/volume)Ordered By: Edmond Branham on 09-23-2022 Urea nitrogen [Mass/Vol] 13 mg/dL 9-23 [facility] Specific gravity Auto test s trip (U) [Rel density]Ordered By: Edmond Branham on 09-23-2022 Specific gravity (U) [Rel density] 1.012 1.001-1.03 0 [facility] Squamous epithelial cells de tection in urine sediment by light microscopyOrdered By: Edmond Branham on 09-23-2022 Epithelial cells.squamous LM Ql (Urine sed) 3-4 [HPF] 0-2 [facility] Troponin I.cardiac [Mass/vol ume] in Serum or Plasma by High sensitivity methodOrdered By: Edmond Branham on 09-23-2022 Troponin I.cardiac High sensitivity method [Mass/Vol] 6 pg/mL 0-15 [facility] Urine bacteria detection by automated methodOrdered By: Edmond Branham on 09-23-2022 Bacteria Auto Ql (U) None seen None Seen [facility] Urine clarity by refractomet ry automatedOrdered By: Edmond Branham on 09-23-2022 Clarity Refractometry automated (U) Clear Clear [facility] Urine culture routineOrdered By: Edmond Branham on 09-23-2022 Bacteria identified Cx Nom (U) 2 Days [facility] Urine glucose measurement by automated test strip (mass/volume)Ordered By: Edmond Branham on 09-23-2022 Glucose Auto test strip (U) [Mass/Vol] Normal mg/dL Normal [facility] Urine hemoglobin detection b y automated test stripOrdered By: Edmond Branham on 09-23-2022 Hemoglobin Auto test strip Ql (U) Negative Negative [facility] Urine leukocyte esterase det ection by automated test stripOrdered By: Edmond Branham on 09-23-2022 Leukocyte esterase Auto test strip Ql (U) 1+ Negative [facility] Urobilinogen Auto test strip (U) [Mass/Vol]Ordered By: Edmond Branham on 09-23-2022 Urobilinogen (U) [Mass/Vol] Normal mg/dL Normal [facility] WBC Auto (Bld) [#/Vol]Ordere d By: Edmond Branham on 09-23-2022 WBC (Bld) [#/Vol] 5.2 10*3/uL 3.8-11.6 [facility] pH Auto test strip (U)Ordere d By: Edmond Branham on 09-23-2022 pH (U) 8.0 [pH] 5.0-9.0 [facility] Prothrombin Time INRon 09-17 INR Coag (PPP) [Relative time] 3.2 {INR} [employer] Other Prothrombin Time INR [facility] [employer] Other Prothrombin Time INRon 08-20 INR Coag (PPP) [Relative time] 2.5 {INR} [employer] Other Prothrombin Time INR [facility] [employer] [facility] [employer] Other Prothrombin Time INRon 07-24 INR Coag (PPP) [Relative time] 3.5 {INR} [employer] Other Prothrombin Time INR [facility] [employer] Other Prothrombin Time INRon 06-26 INR Coag (PPP) [Relative time] 1.7 {INR} [employer] Other Prothrombin Time INR [facility] [employer] Other Prothrombin Time INRon 06-05 INR Coag (PPP) [Relative time] 2.6 {INR} [employer] Other Prothrombin Time INR [employer] Other Laboratory - CoagulationOrde red By: Marlon Molina on 05-29-2022 PT Coag (PPP) [Time] 12.3 s 9.0-12.9 [facility] Platelet poor plasma interna tional normalized ratio (INR) by coagulation assay (relatOrdered By: Marlon Molina on 05-29-2022 INR Coag (PPP) [Relative time] 1.1 {INR} [facility] Comment on above: INR Therapeutic Rang e A) Pre- and Peroperative OAT started two weeks before surgery. NOT HIP SURGERY: 1.5 - 2.5 HIP SURGERY: 2 - 3B) Primary and secondary prevention of venous THROMBOSIS: 2 - 3C) Active venous thrombosis, pulmonary embolismand prevention of recurrent venous thrombosis: 2 - 3D) Prevention of arterial thromboembolismincluding patients with mechanical heart valves: 3 - 4.5 Prothrombin Time INRon 05-22 INR Coag (PPP) [Relative time] 2.1 {INR} [employer] Other Prothrombin Time INR [employer] Other Basophils Auto (Bld) [#/Vol] Ordered By: Marlon Molina on 05-20-2022 Basophils (Bld) [#/Vol] 0.0 10*3/uL 0.0-0.2 [facility] Basophils/100 WBC Auto (Bld) Ordered By: Marlon Molina on 05-20-2022 Basophils/100 WBC (Bld) 0.9 % . [facility] Blood hemoglobin measurement (mass/volume)Ordered By: Marlon Molina on 05-20-2022 Hemoglobin (Bld) [Mass/Vol] 13.4 g/dL 11.8-15.4 [facility] Blood leukocytes automated c ount (number/volume)Ordered By: Marlon oMlina on 05-20-2022 WBC (Bld) [#/Vol] 5.2 10*3/uL 4.5-11.0 [facility] Body fluid albumin measureme nt (mass/volume)Ordered By: Marlon Molina on 05-20-2022 Albumin (Body fld) [Mass/Vol] 3.6 g/dL 3.2-5.5 [facility] Creatinine and Glomerular fi ltration rate.predicted panel (S/P/Bld)Ordered By: Marlon Molina on 05-20-2022 Creatinine [Mass/Vol] 1.04 mg/dL 0.44-1.03 [facility] Eosinophils Auto (Bld) [#/Vo l]Ordered By: Marlon Molina on 05-20-2022 Eosinophils (Bld) [#/Vol] 0.1 10*3/uL 0.0-0.45 [facility] Eosinophils/100 WBC Auto (Bl d)Ordered By: Marlon Molina on 05-20-2022 Eosinophils/100 WBC (Bld) 1.1 % . [facility] Erythrocyte distribution wid th Auto (RBC) [Ratio]Ordered By: Marlon Molina on 05-20-2022 Erythrocyte distribution width (RBC) [Ratio] 14.6 % 11.9-15.3 [facility] Estimated glomerular filtrat ion rate (GFR) non- AmericanOrdered By: Marlon Molina on 05-20-2022 GFR/1.73 sq M.predicted among non-blacks MDRD (S/P/Bld) [Vol rate/Area] 52 mL/Min [facility] Globulin Calc (S) [Mass/Vol] Ordered By: Marlon Molina on 05-20-2022 Globulin (S) [Mass/Vol] 2.8 g/dL [facility] Hematocrit Auto (Bld) [Volum e fraction]Ordered By: Marlon Molina on 05-20-2022 Hematocrit (Bld) [Volume fraction] 39.7 % 34.0-46.4 [facility] Laboratory - Hematology and Cell countsOrdered By: Marlon Molina on 05-20-2022 Nucleated RBC/100 WBC (Bld) [Ratio] 0.0 % 0-0.5 [facility] Lymphocytes Auto (Bld) [#/Vo l]Ordered By: Marlon Molina on 05-20-2022 Lymphocytes (Bld) [#/Vol] 1.2 10*3/uL 1.00-4.8 [facility] Lymphocytes/100 WBC Auto (Bl d)Ordered By: Marlon Molina on 05-20-2022 Lymphocytes/100 WBC (Bld) 22.5 % . [facility] MCH Auto (RBC) [Entitic mass ]Ordered By: Marlon Molina on 05-20-2022 MCH (RBC) [Entitic mass] 32.5 pg 24.7-34.3 [facility] MCHC Auto (RBC) [Mass/Vol]Or dered By: Marlon Molina on 05-20-2022 MCHC (RBC) [Mass/Vol] 33.7 g/dL 32.0-35.0 [facility] MCV Auto (RBC) [Entitic vol] Ordered By: Marlon Molina on 05-20-2022 MCV (RBC) [Entitic vol] 96.3 fL 80-100 [facility] Monocytes Auto (Bld) [#/Vol] Ordered By: Marlon Molina on 05-20-2022 Monocytes (Bld) [#/Vol] 0.4 10*3/uL 0.0-0.8 [facility] Monocytes/100 WBC Auto (Bld) Ordered By: Marlon Molina on 05-20-2022 Monocytes/100 WBC (Bld) 7.1 % . [facility] Neutrophils Auto (Bld) [#/Vo l]Ordered By: Marlon Molina on 05-20-2022 Neutrophils (Bld) [#/Vol] 3.6 10*3/uL 1.8-7.7 [facility] Neutrophils/100 WBC Auto (Bl d)Ordered By: Marlon Molina on 05-20-2022 Neutrophils/100 WBC (Bld) 68.4 % . [facility] No Panel InformationOrdered By: Marlon Molina on 05-20-2022 Estimated GFR () > 60 mL/Min [facility] Comment on above: GFR estimated refere nce range: According to KDOQI guidelines, <60 ml/min/1.73m2 is sufficient to diagnose a patient with chronic kidney disease. Pharmacy Creatinine Clearance (Chem N/A [facility] Platelet mean volume Auto (B ld) [Entitic vol]Ordered By: Marlon Molina on 05-20-2022 Platelet mean volume (Bld) [Entitic vol] 8.8 fL 6.3-10.7 [facility] Platelets Auto (Bld) [#/Vol] Ordered By: Marlon Molina on 05-20-2022 Platelets (Bld) [#/Vol] 224 10*3/uL 150-450 [facility] Protein [Mass/volume] in Ser um or PlasmaOrdered By: Marlon Molina on 05-20-2022 Protein [Mass/Vol] 6.4 g/dL 6.1-7.9 [facility] RBC Auto (Bld) [#/Vol]Ordere d By: Marlon Molina on 05-20-2022 RBC (Bld) [#/Vol] 4.13 10*6/uL 3.60-5.00 [facility] Serum or plasma alanine lugo otransferase measurement without P-5'-P (enzymatic activiOrdered By: Marlon Molina on 05-20-2022 ALT No additional P-5'-P [Catalytic activity/Vol] 18 U/L 10-60 [facility] Serum or plasma albumin/glob ulin mass ratioOrdered By: Marlon Molina on 05-20-2022 Albumin/Globulin [Mass ratio] 1.3 {ratio} [facility] Serum or plasma alkaline elijah sphatase measurement (enzymatic activity/volume)Ordered By: Marlon Molina on 05-20-2022 ALP [Catalytic activity/Vol] 51 U/L 32-92 [facility] Serum or plasma anion gap de terminationOrdered By: Marlon Molina on 05-20-2022 Anion gap [Moles/Vol] 16.4 mmol/L 6.0-15.[address] [facility] Serum or plasma aspartate am inotransferase measurement (enzymatic activity/volume)Ordered By: Marlon Molina on 05-20-2022 AST [Catalytic activity/Vol] 21 U/L 10-42 [facility] Serum or plasma calcium flakita urement (mass/volume)Ordered By: Marlon Molina on 05-20-2022 Calcium [Mass/Vol] 8.8 mg/dL 8.2-10.2 [facility] Serum or plasma chloride patrice surement (moles/volume)Ordered By: Marlon Molina on 05-20-2022 Chloride [Moles/Vol] 99 mmol/L 95-114 [facility] Serum or plasma glucose flakita urement (mass/volume)Ordered By: Marlon Molina on 05-20-2022 Glucose [Mass/Vol] 191 mg/dL 70-100 [facility] Comment on above: ADA recommended refe rence rangeRandom Glucose Reference Range is dependent on time and content of last meal. Glucose of more than 200 mg/dL in a nonstressed, ambulatory subject supports the diagnosis of Diabetes Mellitus. Serum or plasma potassium me asurement (moles/volume)Ordered By: Marlon Molina on 05-20-2022 Potassium [Moles/Vol] 4.1 mmol/L 3.5-5.1 [facility] Serum or plasma sodium measu rement (moles/volume)Ordered By: Marlon Molina on 05-20-2022 Sodium [Moles/Vol] 136 mmol/L 136-146 [facility] Serum or plasma total biliru bin measurement (mass/volume)Ordered By: Marlon Molina on 05-20-2022 Bilirubin [Mass/Vol] 0.3 mg/dL 0.3-1.2 [facility] Serum or plasma total carbon dioxide measurement (moles/volume)Ordered By: Marlon Molina on 05-20-2022 CO2 [Moles/Vol] 24.7 mmol/L 22.0-30.0 [facility] Serum or plasma urea nitroge n measurement (mass/volume)Ordered By: Marlon Molina on 05-20-2022 Urea nitrogen [Mass/Vol] 15 mg/dL 9-23 [facility] Prothrombin Time INRon 05-06 INR Coag (PPP) [Relative time] 1.5 {INR} [employer] Other Prothrombin Time INR [facility] [employer] Other Prothrombin Time INRon 04-08 INR Coag (PPP) [Relative time] 1.8 {INR} [employer] Other Prothrombin Time INR [facility] [employer] Other Prothrombin Time INRon 03-13 INR Coag (PPP) [Relative time] 2.3 {INR} [employer] Other Prothrombin Time INR [facility] [employer] Other Prothrombin Time INRon 02-27 INR Coag (PPP) [Relative time] 2.3 {INR} [employer] Other Prothrombin Time INR [facility] [employer] Other COVID-19 Positive/NegativeOr dered By: Tang Shrestha on 02-26-2022 SARS-CoV-2 (COVID-19) N gene ZHAO+probe Ql (Resp) Negative Negative [facility] Comment on above: Testing for SARS-CoV -2 by RT-PCRThis test was developed and its performance characteristics determined by [employer] and validated at the [facility]. This test has not been FDA cleared or approved. This test has been authorized by FDA under an Emergency Use Authorization (EUA). This test has been validated in accordance with the FDA's Guidance Document (Policy for Diagnostics Testing in Laboratories Certified to Perform High Complexity Testing under CLIA prior to Emergency Use Authorization for Coronavirus Disease-2019 during the Public Health Emergency) issued on November 24, 2019. This test is only authorized for the duration of time the declaration that circumstances exist justifying the authorization of the emergency use of in vitro diagnostic tests for detection of SARS-CoV-2 virus and/or diagnosis of COVID-19 infection under section 564(b)(1) of the Act, 21 U.S.C. 360bbb-3(b)(1), unless the authorization is terminated or revoked sooner. Prothrombin Time INRon 02-17 INR Coag (PPP) [Relative time] 2.0 {INR} [employer] Other Prothrombin Time INR [employer] Other Prothrombin Time INRon 01-06 INR Coag (PPP) [Relative time] 1.4 {INR} [facility] [employer] Other Prothrombin Time INR [facility] Other Prothrombin Time INRon 12-23 INR Coag (PPP) [Relative time] 1.7 {INR} [facility] [employer] Other Prothrombin Time INR [facility] Other Prothrombin Time INRon 12-11 INR Coag (PPP) [Relative time] 2.9 {INR} [facility] [employer] Other Prothrombin Time INR [facility] [employer] Other Prothrombin Time INRon 11-27 INR Coag (PPP) [Relative time] 1.7 {INR} [facility] [employer] Other Prothrombin Time INR [facility] [employer] Other Prothrombin Time INRon 11-12 INR Coag (PPP) [Relative time] 1.9 {INR} [facility] [employer] Other Prothrombin Time INR [facility] [employer] Other Prothrombin Time INRon 10-31 INR Coag (PPP) [Relative time] 2.1 {INR} [facility] [employer] Other Prothrombin Time INR [facility] [employer] Other Prothrombin Time INRon 10-14 INR Coag (PPP) [Relative time] 2.5 {INR} [place] [facility] [employer] Other Prothrombin Time INR [facility] [employer] Other Prothrombin Time INRon 09-30 INR Coag (PPP) [Relative time] 2.6 {INR} [employer] Other Prothrombin Time INR [facility] [employer] Other Prothrombin Time INRon 09-12 INR Coag (PPP) [Relative time] 1.8 {INR} [employer] Other Prothrombin Time INR [facility] [employer] Other Prothrombin Time INRon 08-29 INR Coag (PPP) [Relative time] 2.1 {INR} [facility] [employer] Other Prothrombin Time INR [facility] [employer] Other Prothrombin Time INRon 08-15 Prothrombin Time INR 1.5 [facility] [employer] Other Prothrombin Time INRon 08-01 INR Coag (PPP) [Relative time] 2.5 {INR} [facility] [employer] Other Prothrombin Time INR [facility] [employer] Other Prothrombin Time INRon 07-15 INR Coag (PPP) [Relative time] 2.6 {INR} [place] [facility] [employer] Other Prothrombin Time INR [facility] [employer] Other Prothrombin Time INRon 07-03 INR Coag (PPP) [Relative time] 2.4 {INR} [place] [facility] [employer] Other Prothrombin Time INR [facility] [employer] Other Prothrombin Time INRon 06-19 INR Coag (PPP) [Relative time] 1.8 {INR} [facility] [employer] Other Prothrombin Time INR [facility] [employer] Other Prothrombin Time INRon 05-28 INR Coag (PPP) [Relative time] 2.1 {INR} [place] [facility] [employer] Other Prothrombin Time INR [facility] [employer] Other Prothrombin Time INRon 05-15 INR Coag (PPP) [Relative time] 1.6 {INR} [employer] Other Prothrombin Time INR [facility] [employer] Other Vital Signs Date Time Vital Sign Value Performing Clinician Facility 10-25-2024 14:36-0500 Diastolic blood pressure 58 mm[Hg] Venita Osbornion [employer] Work Phone: [facility] 10-25-2024 14:36-0500 Heart rate 74 /min Venita Didion [employer] Work Phone: [facility] 10-25-2024 14:36-0500 Respiratory rate 16 /min Venita Osbornion [employer] Work Phone: [facility] 10-25-2024 14:36-0500 SaO2% (BldA) [Mass fraction] 98 % Venita Osbornion [employer] Work Phone: [facility] 10-25-2024 14:36-0500 Systolic blood pressure 120 mm[Hg] Venita Osbornion [employer] Work Phone: [facility] 10-07-2024 09:08-0500 Body height 154.94 cm [facility] 10-07-2024 09:08-0500 Body mass index (BMI) [Ratio] 33.6 kg/m2 [facility] 10-07-2024 09:08-0500 Body weight 80.73 kg [facility] 10-07-2024 09:08-0500 Diastolic blood pressure 75 mm[Hg] [facility] [place] 10-07-2024 09:08-0500 Heart rate 73 /min [facility] 10-07-2024 09:08-0500 Systolic blood pressure 127 mm[Hg] [facility] [place] 10-03-2024 09:14-0500 Body height 156.2 cm Kristopher Herzog DO Work Phone: [facility] 10-03-2024 09:14-0500 Body mass index (BMI) [Ratio] 33.09 kg/m2 Kristopher Herzog DO Work Phone: [facility] 10-03-2024 09:14-0500 Body weight 80.74 kg Kristopher Herzog DO Work Phone: [facility] 10-03-2024 09:14-0500 Diastolic blood pressure 58 mm[Hg] Kristopher Herzog DO Work Phone: [facility] 10-03-2024 09:14-0500 Heart rate 74 /min Kristopher Herzog DO Work Phone: [facility] 10-03-2024 09:14-0500 SaO2% (BldA) [Mass fraction] 99 % Kristopher Herzog DO Work Phone: [facility] 10-03-2024 09:14-0500 Systolic blood pressure 120 mm[Hg] Kristopher Herzog DO Work Phone: [facility] 06-29-2024 10:39-0500 Body height 154.94 cm [facility] 06-29-2024 10:39-0500 Body mass index (BMI) [Ratio] 33.8 kg/m2 [facility] [place] 06-29-2024 10:39-0500 Body weight 81.19 kg [facility] 06-22-2024 08:50-0400 Body height 156.2 cm Adam Smith [employer] Work Phone: [facility] 06-22-2024 08:50-0400 Body mass index (BMI) [Ratio] 33.09 kg/m2 Adam Smith [employer] Work Phone: [facility] 06-22-2024 08:50-0400 Body weight 80.74 kg Adam Smith [employer] Work Phone: [facility] 06-22-2024 08:50-0400 Diastolic blood pressure 74 mm[Hg] Adam Smith [employer] Work Phone: [facility] 06-22-2024 08:50-0400 Heart rate 79 /min Adam Smith [employer] Work Phone: [facility] 06-22-2024 08:50-0400 SaO2% (BldA) [Mass fraction] 99 % Adam Smith [employer] Work Phone: [facility] 06-22-2024 08:50-0400 Systolic blood pressure 120 mm[Hg] Adam Smith [employer] Work Phone: [facility] 04-29-2024 08:53-0400 Body height 156.2 cm Radha Itzkowitz DO Work Phone: [facility] 04-29-2024 08:53-0400 Body mass index (BMI) [Ratio] 33.46 kg/m2 Radha Itzkowitz DO Work Phone: [facility] 04-29-2024 08:53-0400 Body weight 81.65 kg Radha Itzkowitz DO Work Phone: [facility] 04-29-2024 08:53-0400 Diastolic blood pressure 74 mm[Hg] Radha Itzkowitz DO Work Phone: [facility] 04-29-2024 08:53-0400 Systolic blood pressure 122 mm[Hg] Radha Itzkowitz DO Work Phone: [facility] 02-09-2024 11:03-0400 Diastolic blood pressure 60 mm[Hg] DO Kristopher Herzog Work Phone: [facility] [place] 02-09-2024 11:03-0400 Heart rate 76 /min DO Kristopher Herzog Work Phone: [facility] [place] 02-09-2024 11:03-0400 Respiratory rate 16 /min DO Kristopher Herzog Work Phone: [facility] [place] 02-09-2024 11:03-0400 SaO2% (BldA) [Mass fraction] 99 % DO Kristopher Herzog Work Phone: [facility] [place] 02-09-2024 11:03-0400 Systolic blood pressure 128 mm[Hg] DO Kristopher Mino Work Phone: [facility] [place] 02-09-2024 09:32-0400 Body height 154.94 cm DO Kristopher Mino Work Phone: [facility] [place] 02-09-2024 09:32-0400 Body temperature 99 [degF] DO Kristopher Herzog Work Phone: [facility] [place] 02-09-2024 09:32-0400 Body weight 78.92 kg DO Kristopher Mino Work Phone: [facility] [place] 12-28-2023 11:17-0400 Diastolic blood pressure 77 mm[Hg] DO Kristopher Mino Work Phone: [facility] [place] 12-28-2023 11:17-0400 Heart rate 77 /min DO Kristopher Mino Work Phone: [facility] [place] 12-28-2023 11:17-0400 Respiratory rate 16 /min DO Kristopher Mino Work Phone: [facility] [place] 12-28-2023 11:17-0400 SaO2% (BldA) [Mass fraction] 99 % DO Kristopher Herzog Work Phone: [facility] [place] 12-28-2023 11:17-0400 Systolic blood pressure 113 mm[Hg] DO Kristopher Mino Work Phone: [facility] [place] 12-28-2023 08:33-0400 Body height 154.94 cm DO Kristopher Mino Work Phone: [facility] [place] 12-28-2023 08:33-0400 Body weight 79.83 kg DO Kristopher Mino Work Phone: [facility] [place] 12-07-2023 10:06-0400 Body height 156.21 cm DO Kristopher Mino Work Phone: [facility] [place] 12-07-2023 10:06-0400 Body mass index (BMI) [Ratio] 32.7 kg/m2 DO Kristopher Mino Work Phone: [facility] [place] 12-07-2023 10:06-0400 Body weight 79.83 kg DO Kristopher Mino Work Phone: [facility] [place] 12-07-2023 10:06-0400 Diastolic blood pressure 74 mm[Hg] DO Kristopher Mino Work Phone: [facility] [place] 12-07-2023 10:06-0400 Heart rate 79 /min DO Kristopher Mino Work Phone: [facility] [place] 12-07-2023 10:06-0400 Systolic blood pressure 142 mm[Hg] DO Kristopher Mino Work Phone: [facility] [place] 12-15-2022 17:21-0400 Body temperature 98.1 [degF] DO Kristopher Mino Work Phone: [facility] [place] 12-15-2022 17:21-0400 Diastolic blood pressure 77 mm[Hg] DO Kristopher Mino Work Phone: [facility] [place] 12-15-2022 17:21-0400 Heart rate 83 /min DO Kristopher Mino Work Phone: [facility] [place] 12-15-2022 17:21-0400 Respiratory rate 16 /min DO Kristopher Mino Work Phone: [facility] [place] 12-15-2022 17:21-0400 SaO2% (BldA) [Mass fraction] 99 % DO Kristopher Mino Work Phone: [facility] [place] 12-15-2022 17:21-0400 Systolic blood pressure 158 mm[Hg] DO Kristopher Mino Work Phone: [facility] [place] 12-15-2022 06:00-0400 Body weight 85.3 kg DO Kristopher Mino Work Phone: [facility] [place] 12-13-2022 20:01-0400 Diastolic blood pressure 81 mm[Hg] DO Kristopher Mino Work Phone: [facility] [place] 12-13-2022 20:01-0400 Heart rate 75 /min DO Kristopher Mino Work Phone: [facility] [place] 12-13-2022 20:01-0400 Respiratory rate 18 /min DO Kristopher Mino Work Phone: [facility] [place] 12-13-2022 20:01-0400 SaO2% (BldA) [Mass fraction] 99 % DO Kristopher Herzog Work Phone: [facility] [place] 12-13-2022 20:01-0400 Systolic blood pressure 167 mm[Hg] DO Kristopher Mino Work Phone: [facility] [place] 12-13-2022 13:48-0400 Body height 160.02 cm DO Kristopher Mino Work Phone: [facility] [place] 12-13-2022 13:48-0400 Body temperature 98.6 [degF] DO Kristopher Herzog Work Phone: [facility] [place] 12-13-2022 13:48-0400 Body weight 88.3 kg DO Kristopher Herzog Work Phone: [facility] [place] 09-23-2022 19:59-0500 Diastolic blood pressure 72 mm[Hg] DO Kristopher Herzog Work Phone: [facility] [place] 09-23-2022 19:59-0500 Heart rate 77 /min DO Kristopher Herzog Work Phone: [facility] [place] 09-23-2022 19:59-0500 Respiratory rate 18 /min DO Kristopher Herzog Work Phone: [facility] [place] 09-23-2022 19:59-0500 SaO2% (BldA) [Mass fraction] 97 % DO Kristopher Herzog Work Phone: [facility] [place] 09-23-2022 19:59-0500 Systolic blood pressure 168 mm[Hg] DO Kristopher Mino Work Phone: [facility] [place] 09-23-2022 18:17-0500 Body height 160.02 cm DO Kristopher Mino Work Phone: [facility] [place] 09-23-2022 18:17-0500 Body temperature 98.7 [degF] DO Kristopher Herzog Work Phone: [facility] [place] 09-23-2022 18:17-0500 Body weight 85.7 kg DO Kristopher Mino Work Phone: [facility] [place] 07-16-2022 09:56-0500 Body temperature 98.8 [degF] DO Kristopher Mino Work Phone: [facility] [place] 07-16-2022 09:56-0500 Diastolic blood pressure 70 mm[Hg] DO Kristopher Mino Work Phone: [facility] [place] 07-16-2022 09:56-0500 Heart rate 79 /min DO Kristopher Mino Work Phone: [facility] [place] 07-16-2022 09:56-0500 Respiratory rate 17 /min DO Kristopher Mino Work Phone: [facility] [place] 07-16-2022 09:56-0500 SaO2% (BldA) [Mass fraction] 98 % DO Kristopher Herzog Work Phone: [facility] [place] 07-16-2022 09:56-0500 Systolic blood pressure 150 mm[Hg] DO Kristopher Mino Work Phone: [facility] [place] 07-16-2022 08:29-0500 Body height 160.02 cm DO Kristopher Mino Work Phone: [facility] [place] 07-16-2022 08:29-0500 Body weight 83 kg DO Kristopher Herzog Work Phone: [facility] [place] 06-04-2022 09:13-0400 Body temperature 97.9 [degF] DO Kristopher Mino Work Phone: [facility] [place] 06-04-2022 09:13-0400 Diastolic blood pressure 64 mm[Hg] DO Kristopher Mino Work Phone: [facility] [place] 06-04-2022 09:13-0400 Heart rate 93 /min DO Kristopher Mino Work Phone: [facility] [place] 06-04-2022 09:13-0400 Respiratory rate 20 /min DO Kristopher Herzog Work Phone: [facility] [place] 06-04-2022 09:13-0400 SaO2% (BldA) [Mass fraction] 97 % DO Kristopher Herzog Work Phone: [facility] [place] 06-04-2022 09:13-0400 Systolic blood pressure 134 mm[Hg] DO Kristopher Herzog Work Phone: [facility] [place] 05-29-2022 08:18-0400 Body temperature 98.1 [degF] DO Kristopher Herzog Work Phone: [facility] [place] 05-29-2022 08:18-0400 Diastolic blood pressure 76 mm[Hg] DO Kristopher Herzog Work Phone: [facility] [place] 05-29-2022 08:18-0400 Heart rate 77 /min DO Kristopher Herzog Work Phone: [facility] [place] 05-29-2022 08:18-0400 Respiratory rate 20 /min DO Kristopher Herzog Work Phone: [facility] [place] 05-29-2022 08:18-0400 SaO2% (BldA) [Mass fraction] 98 % DO Kristopher Herzog Work Phone: [facility] [place] 05-29-2022 08:18-0400 Systolic blood pressure 146 mm[Hg] DO Kristopher Herzog Work Phone: [facility] [place] 02-11-2022 08:39-0400 Body weight 0 kg DO Kristopher Herzog Work Phone: [facility] [place] 01-28-2022 16:15-0400 Body height 157.48 cm Tang Shrestha Other [facility] Other 01-28-2022 16:15-0400 Body mass index (BMI) [Ratio] 31.64 kg/m2 Tang Shrestha Other [facility] Other 01-28-2022 16:15-0400 Body weight 78.47 kg Tang Shrestha Other [facility] Other Encounters Encounter Date Encounter Type Care Provider Facility Start: 11-30-2024 End: 11-30-2024 ambulatory [facility] Work Phone: Start: 11-30-2024 End: 11-30-2024 Patient encounter procedure [facility] Work Phone: Start: 11-23-2024 End: 11-23-2024 ambulatory VENITA L DIDION Not Available Start: 11-15-2024 End: 11-15-2024 ambulatory VENITA L DIDION Not Available Start: 11-02-2024 End: 11-02-2024 ambulatory [facility] Work Phone: Start: 11-02-2024 End: 11-02-2024 Patient encounter procedure [facility] Work Phone: Start: 10-31-2024 End: 10-31-2024 ambulatory MARLON BRANHAM Not Available Start: 10-27-2024 End: 10-27-2024 ambulatory VENITA L DIDION Not Available Start: 10-25-2024 End: 10-25-2024 ambulatory VENITA L DIDION Not Available Start: 10-25-2024 End: 10-25-2024 Office outpatient visit 25 minutes Venita L Didion [employer] Work Phone: [facility] Comment on above: Nonintractable heada shelby, unspecified chronicity pattern, unspecified headache type (Primary Dx); Neck pain; Paresthesia of left arm; Numbness of fingers Start: 10-23-2024 Non-patient / Non-visit [facility] Work Phone: Start: 10-07-2024 End: 10-07-2024 ambulatory [facility] Work Phone: Start: 10-07-2024 End: 10-07-2024 Patient encounter procedure [facility] Work Phone: Start: 10-05-2024 End: 10-05-2024 ambulatory [facility] Work Phone: Start: 10-05-2024 End: 10-05-2024 Patient encounter procedure [facility] Work Phone: Start: 10-03-2024 End: 10-03-2024 Office outpatient visit 25 minutes Kristopher Herzog DO Work Phone: [facility] Comment on above: Primary osteoarthrit is of right knee (Primary Dx); Hypercoagulable state (CMS/HCC); Diabetic peripheral neuropathy associated with type 2 diabetes mellitus (CMS/HCC); Primary hypertension (CMS/HCC); Ulcerative colitis without complications, unspecified location (CMS/HCC); 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 (CMS/HCC); [facility] current use of 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; Sacral ulcer, limited to breakdown of skin ([facility]/HCC) Start: 10-03-2024 End: 10-03-2024 ambulatory KRISTOPHER HERZOG Not Available Start: 09-09-2024 End: 09-09-2024 ambulatory [facility] Work Phone: Start: 09-09-2024 End: 09-09-2024 Patient encounter procedure [facility] Work Phone: Start: 08-03-2024 End: 08-03-2024 Patient encounter procedure [facility] Work Phone: Start: 08-01-2024 End: 08-01-2024 Bamboo flowslee ann Branham DPM Work Phone: [facility] Start: 08-01-2024 End: 08-01-2024 Bamboo flowslee ann Branham DPM Work Phone: [facility] Start: 08-01-2024 End: 08-01-2024 Office outpatient visit 10 minutes Marlon Branham DPM Work Phone: [facility] Comment on above: 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) (Primary Dx); Onychomycosis; Corns and callosities; Hallux malleus, left; Pain in both feet Start: 08-01-2024 End: 08-01-2024 ambulatory MARLON BRANHAM Not Available Start: 07-04-2024 End: 07-04-2024 ambulatory [facility] Work Phone: Start: 07-04-2024 End: 07-04-2024 Patient encounter procedure [facility] Work Phone: Start: 06-29-2024 End: 06-29-2024 ambulatory [facility] Work Phone: Start: 06-29-2024 End: 06-29-2024 Patient encounter procedure [facility] Work Phone: Start: 06-22-2024 End: 06-22-2024 Office outpatient visit 25 minutes Adam Smith [employer] Work Phone: [facility] Comment on above: Primary hypertension (CMS/HCC) (Primary Dx); Mixed hyperlipidemia (CMS/HCC); Obstructive sleep apnea syndrome; Peripheral venous insufficiency; Chronic deep vein thrombosis (DVT) of femoral vein of left lower extremity (CMS/HCC); 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 machines and devices; Diabetic peripheral neuropathy associated with type 2 diabetes mellitus (CMS/HCC); Gastroesophageal reflux disease without esophagitis; Hypercoagulable state (CMS/HCC); [facility] current use of 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; 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 (CMS/HCC); OAB (overactive bladder); Class 1 obesity; Spinal stenosis of lumbosacral region; Ulcerative colitis without complications, unspecified location (CMS/HCC); Need for immunization against influenza; Atrophic vaginitis; Bilateral leg edema Start: 06-22-2024 End: 06-22-2024 ambulatory ADAM SMITH Not Available Start: 06-17-2024 End: 06-18-2024 Orders Only Adam Smith [employer] Work Phone: [facility] External Department Unsolicited Start: 06-06-2024 End: 06-06-2024 ambulatory [facility] Work Phone: Start: 06-06-2024 End: 06-06-2024 Patient encounter procedure [facility] Work Phone: Start: 05-09-2024 End: 05-09-2024 ambulatory DO Kristopher Herzog Work Phone: [facility] Work Phone: Start: 05-09-2024 End: 05-09-2024 Patient encounter procedure DO Kristopher Herzog Work Phone: [facility] Work Phone: Start: 04-29-2024 End: 04-29-2024 Office outpatient visit 25 minutes Radha Olman Verduzco DO Work Phone: [facility] Comment on above: Axillary lymphadenop athy (Primary Dx) Start: 04-29-2024 End: 04-29-2024 ambulatory RADHA H LUBA Not Available Start: 04-27-2024 End: 04-27-2024 Bamboo flowsheet Marlon Branham DPM Work Phone: [facility] Start: 04-27-2024 End: 04-27-2024 Bamboo flowsheet Marlon Branham DPM Work Phone: [facility] Start: 04-27-2024 End: 04-27-2024 ambulatory AMRLON BRANHAM Not Available Start: 04-27-2024 End: 04-27-2024 Patient encounter procedure Marlon Branham DPM Work Phone: [facility] Comment on above: 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) (Primary Dx); Onychomycosis; Corns and callosities; Pain in both feet Start: 04-14-2024 End: 04-14-2024 ambulatory DO Kristopher Herzog Work Phone: [facility] Work Phone: Start: 04-14-2024 End: 04-14-2024 Patient encounter procedure DO Krsitophervince Herzog Work Phone: [facility] Work Phone: Start: 03-14-2024 End: 03-14-2024 ambulatory DO Kristopher Belloman Work Phone: [facility] Work Phone: Start: 03-14-2024 End: 03-14-2024 Patient encounter procedure DO Kristopher Herzog Work Phone: [facility] Work Phone: Start: 03-09-2024 End: 03-09-2024 ambulatory KRISTOPHER HERZOG Not Available Start: 02-17-2024 End: 02-17-2024 ambulatory DO Kristopher Herzog Work Phone: [facility] Work Phone: Start: 02-17-2024 End: 02-17-2024 Patient encounter procedure DO Kristopher Herzog Work Phone: [facility] Work Phone: Start: 02-16-2024 End: 02-16-2024 ambulatory KRISTOPHER HERZOG Not Available Start: 02-09-2024 End: 02-09-2024 Emergency department patient visit DO Kristopher Herzog Work Phone: [facility] Work Phone: Start: 01-20-2024 End: 01-20-2024 ambulatory DO Kristopher Herzog Work Phone: [facility] Work Phone: Start: 01-20-2024 End: 01-20-2024 Patient encounter procedure DO Kristopher Herzog Work Phone: [facility] Work Phone: Start: 01-12-2024 End: 01-12-2024 ambulatory KRISTOPHER HERZOG Not Available Start: 01-05-2024 End: 01-05-2024 Patient encounter procedure DO Kristopher Herzog Work Phone: [facility] Work Phone: Start: 12-28-2023 Non-patient / Non-visit DO Preet martin Mino Work Phone: [facility] G[facility] Work Phone: Start: 12-28-2023 End: 12-28-2023 Admission to same day surgery center DO Kristopher Herzog Work Phone: [facility] Work Phone: Start: 12-28-2023 End: 12-28-2023 ambulatory DO Kristopher Herzog Work Phone: [facility] Work Phone: Start: 12-14-2023 End: 12-14-2023 ambulatory DO Kristopher Herzog Work Phone: [facility] Work Phone: Start: 12-14-2023 End: 12-14-2023 Patient encounter procedure DO Kristopher Herzog Work Phone: [facility] Work Phone: Start: 12-07-2023 End: 12-07-2023 Patient encounter procedure DO Kristopher Herzog Work Phone: [facility] Work Phone: Start: 12-07-2023 End: 12-07-2023 ambulatory DO Kristopher Herzog Work Phone: [facility] Work Phone: Start: 12-07-2023 End: 12-07-2023 ambulatory DO Kristopher Herzog Work Phone: [facility] Work Phone: Start: 12-07-2023 End: 12-07-2023 Patient encounter procedure DO Kristopher Herzog Work Phone: [facility] Gastroenterology Work Phone: Start: 12-03-2023 End: 12-03-2023 ambulatory KRISTOPHER HERZOG Not Available Start: 11-09-2023 End: 11-09-2023 ambulatory DO Kristopher Herzog Work Phone: [facility] Work Phone: Start: 11-09-2023 End: 11-09-2023 Patient encounter procedure DO Kristopher Herzog Work Phone: [facility] Work Phone: Start: 10-05-2023 ([facility] R A/c) [facility] Re peat A/C Lauren Vance [facility] Start: 10-05-2023 End: 10-05-2023 ambulatory DO Kristopher Herzog Work Phone: [facility] Other Start: 10-05-2023 End: 10-05-2023 Discharged Recurring DO Kristopher Herz[facility] Work Phone: Start: 09-29-2023 End: 09-29-2023 ambulatory Lauren Vance Other [facility] Other Start: 09-29-2023 Telephone encounter Lauren Vance [facility] Start: 09-24-2023 Telephone encounter Kimberly Berger LPN [facility] Start: 09-07-2023 ([facility] R A/c) [facility] Re peat A/C Tita Roberts [facility] Start: 09-07-2023 End: 09-07-2023 ambulatory Tita Roberts Other [facility] Other Start: 08-11-2023 ([facility] R A/c) [facility] Re peat A/C Tita Roberts [facility] Start: 08-11-2023 End: 08-11-2023 ambulatory Tita Roberts Other [facility] Other Start: 07-14-2023 ([facility] R A/c) [facility] A[facility] Start: 07-14-2023 End: 07-14-2023 ambulatory Tita Roberts Other [facility] Other Start: 06-15-2023 ([facility] R A/c) [facility] Re [facility]at A/C [facility] Start: 06-15-2023 End: 06-15-2023 ambulatory Tita Roberts Other [facility] Other Start: 06-03-2023 End: 06-03-2023 Patient encounter procedure DO Kristopher Herzog Work Phone: [facility] Start: 06-03-2023 End: 06-03-2023 ambulatory DO Kristopher Herzog Work Phone: [facility] Work Phone: Start: 05-25-2023 Registered Recurring DO Manuela Herzog Work Phone: [facility] Work Phone: Start: 04-30-2023 ([facility] R A/c) [facility] Re peat A/C Lauren Vance [facility] Start: 04-30-2023 End: 04-30-2023 ambulatory Lauren Fitt Other [facility] Other Start: 04-08-2023 ([facility] R A/c) [facility] Re peat A/C Kiersten Qureshi [facility] Start: 04-08-2023 End: 04-08-2023 ambulatory Kiersten Hampton Other [employer] Other Start: 03-23-2023 ([facility]) [facility] Re [facility] A/C Kiersten Qureshi [facility]ly [facility] Start: 03-23-2023 End: 03-23-2023 ambulatory Kiersten Titus Other [employer] Other Start: 03-11-2023 ([facility] R [facility]) [facility] Re [facility] A/C Kiersten Qureshi [facility] Start: 03-11-2023 End: 03-11-2023 ambulatory Kiersten Hampton Other [employer] Other Start: 02-23-2023 ([facility]) [facility] Re [facility] A/C Kiersten Qureshi [facility] Start: 02-23-2023 End: 02-23-2023 ambulatory Kiersten Hampton Other [employer] Other Start: 12-17-2022 End: 12-17-2022 ambulatory DO Kristopher Herzog Work Phone: [facility] Work Phone: Start: 12-17-2022 End: 12-17-2022 Departed Referred DO Kristopher Herzog Work Phone: [facility] Formerly [facility] Work Phone: Start: 12-15-2022 ambulatory Facility:[id number] Start: 12-13-2022 End: 12-15-2022 Evaluation and management of inpatient DO Kristopher Herzog Work Phone: [facility] [place] Work Phone: Start: 12-13-2022 observation encounter DO Alexjúnior reyna Mino Work Phone: [facility] Work Phone: Start: 12-10-2022 ([facility]) [facility] Re [facility] A/C Kiersten Qureshi [facility] Start: 12-10-2022 End: 12-10-2022 ambulatory Kiersten Qureshi Other [employer] Other Start: 12-10-2022 Registered Recurring DO Manuela Belloman Work Phone: [facility] Work Phone: Start: 12-01-2022 End: 12-01-2022 ambulatory DO Kristopher Herzog Work Phone: [facility] Work Phone: Start: 12-01-2022 End: 12-01-2022 Patient encounter procedure DO Kristopher Herzog Work Phone: [facility] Work Phone: Start: 11-12-2022 ([facility]) [facility] Re [facility] A/C Kiersten Qureshi [facility] Start: 11-12-2022 End: 11-12-2022 ambulatory Kiersten Qureshi Other [employer] [facility] Other Start: 11-12-2022 Registered Recurring DO Manuela cierra Mino Work Phone: [facility] Work Phone: Start: 10-15-2022 ([facility]) [facility] Re [facility] A/C Kiersten Qureshi [facility] Start: 10-15-2022 End: 10-15-2022 ambulatory Kiersten Qureshi Other [employer] Other Start: 09-29-2022 End: 09-29-2022 ambulatory Lauren Vance Other [employer] Other Start: 09-29-2022 Telephone encounter Lauren deal [facility] Start: 09-23-2022 End: 09-23-2022 Emergency department patient visit DO Kristopher Herzog Work Phone: [facility] Work Phone: Start: 09-17-2022 ([facility]) [facility] Re [facility]at A/C Kiersten Qureshi [facility] Start: 09-17-2022 End: 09-17-2022 ambulatory Kiersten Hampton Other [employer] Other Start: 09-17-2022 Registered Recurring DO Manuela Herzog Work Phone: [facility] Work Phone: Start: 09-01-2022 End: 09-01-2022 ambulatory Lauren Vance Other [employer] Other Start: 09-01-2022 Telephone encounter Lauren Carnes mar[facility]n [facility] Start: 08-20-2022 ([facility]) [facility] Re peat A/C Kiersten Llamasber [facility] Start: 08-20-2022 End: 08-20-2022 ambulatory Kiersten Hampton Other [employer] Other Start: 07-24-2022 ([facility]) [facility] Re peat A/C Olu Rene [facility] Start: 07-24-2022 End: 07-24-2022 ambulatory Olu Bakere Other [employer] Other Start: 07-16-2022 End: 07-16-2022 Emergency department patient visit DO Kristopher Herzog Work Phone: [facility] Start: 06-26-2022 ([facility]) [facility] Re [facility] A/C Lauren Fitt [facility] Start: 06-26-2022 End: 06-26-2022 ambulatory Lauren Vance Other [employer] [facility] Other Start: 06-26-2022 Registered Recurring DO Manuela Herzog Work Phone: [facility] Start: 06-23-2022 End: 06-23-2022 ambulatory DO Kristopher Herzog Work Phone: [facility] Work Phone: Start: 06-23-2022 End: 06-23-2022 Patient encounter procedure DO Kristopher Herzog Work Phone: [facility] [place] Start: 06-09-2022 End: 06-09-2022 Patient encounter procedure DO Kristopher Herzog Work Phone: [facility] Start: 06-05-2022 ([facility] R [facility]) [facility] Re [facility]at A/C Lauren Reggiet [facility] Start: 06-05-2022 End: 06-05-2022 ambulatory Tang Shrestha Other [employer] [facility] Other Start: 06-05-2022 Telephone encounter Tang Santana [facility] Start: 06-05-2022 Registered Recurring DO Manuela Herzog Work Phone: [facility] Start: 06-04-2022 End: 06-04-2022 Discharged Recurring DO Kristopher Herzog Work Phone: [facility]In[facility] Therapy - [facility] Start: 05-29-2022 End: 05-29-2022 ambulatory DO Kristopher Herzog Work Phone: [facility] Work Phone: Start: 05-29-2022 End: 05-29-2022 Patient encounter procedure DO Kristopher Herzog Work Phone: [facility] [place] Start: 05-29-2022 Registered Recurring DO Manuela Herzog Work Phone: [facility]In[facility] - [facility] Start: 05-22-2022 Registered Recurring DO Manuela Herzog Work Phone: [facility] Start: 05-22-2022 ([facility]) [facility] Re [facility]at A/C Lauren Fitt [facility] Start: 05-22-2022 End: 05-22-2022 ambulatory Lauren Fitt Other [employer] Other Start: 05-20-2022 End: 05-20-2022 Patient encounter procedure DO Kristopher Herzog Work Phone: [facility] Start: 05-06-2022 ([facility]) [facility] Re [facility] A/C Lauren Fitt [facility] Start: 05-06-2022 End: 05-06-2022 ambulatory Lauren Fitt Other [employer] Other Start: 04-08-2022 ([facility] R [facility]) [facility] Re [facility] A/C Lauren Fitt [facility] Start: 04-08-2022 End: 04-08-2022 ambulatory Lauren Fitt Other [employer] Other Start: 03-13-2022 ([facility] R [facility]) [facility] Re peat A/C Lauren Fitt [facility] Start: 03-13-2022 End: 03-13-2022 ambulatory Lauren Fitt Other [employer] Other Start: 02-28-2022 End: 02-28-2022 Patient encounter procedure DO Kristopher Herzog Work Phone: [facility] Start: 02-27-2022 ([facility] R [facility]) [facility] Re [facility]at A/C Lauren Fitt [facility] Start: 02-27-2022 End: 02-27-2022 ambulatory Lauren Fitt Other [employer] Other Start: 02-26-2022 End: 02-26-2022 Patient encounter procedure DO Kristopher Herzog Work Phone: [facility]Pre-Surgical Testing Start: 02-17-2022 ([facility]) [facility] Re [facility] A/C Lauren Fitt [facility] Start: 02-17-2022 End: 02-17-2022 ambulatory Lauren Fitt Other [employer] Other Start: 02-11-2022 End: 02-11-2022 ambulatory Antonio Thompson Other [employer] Other Start: 02-11-2022 Telephone encounter Antonio Thompson [facility] Start: 01-28-2022 End: 01-28-2022 ambulatory Tang Shrestha Other [employer] Other Start: 01-28-2022 Office outpatient vi sit 15 minutes Tang Shrestha [facility] Start: 01-21-2022 ([facility] R [facility]) [facility] Re [facility]at A/C Lauren Fitt [facility] Start: 01-21-2022 End: 01-21-2022 ambulatory Lauren Fitt Other [employer] Other Start: 01-09-2022 End: 01-09-2022 ambulatory Tang Shrestha Other [employer] Other Start: 01-09-2022 Telephone encounter Tang Santana meghan [facility] Start: 01-06-2022 ([facility] R [facility]) [facility] Re peat A/C Lauren Fitt [facility] Start: 01-06-2022 End: 01-06-2022 ambulatory Lauren Fitt Other [employer] Other Start: 12-23-2021 ([facility] R [facility]) [facility] Re [facility]at A/C Lauren Fitt [facility] Start: 12-23-2021 End: 12-23-2021 ambulatory Lauren Fitt Other [employer] Other Start: 12-11-2021 ([facility] R A[facility]c) [facility] Re peat A/C Lauren Fitt [facility] Start: 12-11-2021 End: 12-11-2021 ambulatory Lauren Fitt Other [employer] Other Start: 11-28-2021 End: 11-28-2021 ambulatory Tang Shrestha Other [employer] Other Start: 11-28-2021 Telephone encounter Tang Chancesadaf christianson [facility] G[facility] Start: 11-27-2021 ([facility] R [facility]c) [facility] Re [facility]at A/C Lauren Fitt [facility] Start: 11-27-2021 End: 11-27-2021 ambulatory Lauren Fitt Other [employer] Other Start: 11-25-2021 End: 11-25-2021 ambulatory Lauren Fitt Other [employer] Other Start: 11-25-2021 Telephone encounter Lauren Fitt [facility] Start: 11-14-2021 End: 11-14-2021 ambulatory Lauren Fitt Other [employer] Other Start: 11-14-2021 Telephone encounter Lauren Reggiet [facility] Start: 11-12-2021 ([facility] R [facility]) [facility] Re [facility]at A/C Lauren Fitt [facility] Start: 11-12-2021 End: 11-12-2021 ambulatory Lauren Fitt Other [employer] Other Start: 10-31-2021 ([facility] R [facility]c) [facility] Re peat A/C Lauren Fitt [facility] Start: 10-31-2021 End: 10-31-2021 ambulatory Lauren Fitt Other [employer] Other Start: 10-14-2021 ([facility] R A[facility]c) [facility] Re [facility]at A/C Lauren Fitt [facility] Start: 10-14-2021 End: 10-14-2021 ambulatory Lauren Fitt Other [employer] Other Start: 10-08-2021 End: 10-08-2021 ambulatory Lauren Fitt Other [employer] Other Start: 10-08-2021 Telephone encounter Lauren Reggiet [facility] Start: 09-30-2021 ([facility] R [facility]c) [facility] Re [facility]at A/C Lauren Fitt [facility] Start: 09-30-2021 End: 09-30-2021 ambulatory Lauren Fitt Other [employer] Other Start: 09-12-2021 ([facility] R A[facility]c) [facility] Re [facility]at A/C Lauren Fitt [facility] Start: 09-12-2021 End: 09-12-2021 ambulatory Lauren Fitt Other [employer] Other Start: 08-29-2021 ([facility] R A[facility]c) [facility] Re peat A/C Lauren Fitt [facility] Start: 08-29-2021 End: 08-29-2021 ambulatory Lauren Fitt Other [employer] Other Start: 08-15-2021 ([facility] R A[facility]c) [facility] Re [facility]at A/C Lauren Fitt [facility] Start: 08-15-2021 End: 08-15-2021 ambulatory Lauren Fitt Other [employer] Other Start: 08-01-2021 ([facility] R A[facility]c) [facility] Re peat A/C Lauren Fitt [facility] Start: 08-01-2021 End: 08-01-2021 ambulatory Lauren Fitt Other [employer] Other Start: 07-15-2021 ([facility] R A[facility]c) [facility] Re peat A/C Lauren Fitt [facility] Start: 07-15-2021 End: 07-15-2021 ambulatory Lauren Fitt Other [employer] Other Start: 07-03-2021 ([facility] R A[facility]c) [facility] Re peat A/C Lauren Fitt [facility] Start: 07-03-2021 End: 07-03-2021 ambulatory Lauren Fitt Other [employer] Other Start: 07-03-2021 Telephone encounter Antonio Peña [facility] Start: 06-19-2021 ([facility] R A[facility]c) [facility] Re peat A/C Lauren Fitt [facility] Start: 05-28-2021 ([facility] R A[facility]c) [facility] Re peat A/C Lauren Vance [facility] Start: 05-21-2021 Telephone encounter Lauren Carnes [facility] Start: 05-15-2021 ([facility] R A/c) [facility] Re peat A/C Lauren Vance [facility] Start: 05-15-2021 Telephone encounter Lauren Carnes [facility] Procedures Date Procedure Procedure Detail Performing Clinician Start: 06-17-2024 Comprehensive metabo lic panel Adam Smith [employer] Work Phone: Start: 06-17-2024 Lipid panel Adam Smith [employer] Work Phone: Start: 06-17-2024 SPECIMEN STATUS REPORT Adam Smith [employer] Work Phone: Start: 04-29-2024 Mammography Radha It dee DO Work Phone: Start: 02-09-2024 Urine culture DO Manuela Herzog Work Phone: Start: 02-09-2024 CT cervical spine wi thout contrast DO Kristopher Herzog Work Phone: Start: 02-09-2024 CT of head without contrast DO Kristopher Herzog Work Phone: Start: 02-09-2024 CT of lumbar spine w ithout contrast DO Kristopher Herzog Work Phone: Start: 12-28-2023 End: 12-28-2023 Colonoscopy DO Kristopher Herzog Work Phone: Start: 12-07-2023 End: 12-07-2023 Bilateral mammography DO Kristopher Herzog Work Phone: Start: 12-07-2023 Ultrasonography of limb DO Kristopher Herzog Work Phone: Start: 06-03-2023 Ultrasonography of limb DO Kristopher Herzog Work Phone: Start: 12-13-2022 Computed tomography of abdomen and pelvis with contrast DO Kristopher Herzog Work Phone: Start: 04-22-2023 CT of head without contrast DO Kristopher Herzog [employer] Phone: Start: 12-13-2022 Plain chest X-ray DO Pernell Herzog [employer] Phone: Start: 12-01-2022 End: 12-01-2022 Bilateral mammography DO Kristopher Herzog [employer] Phone: Start: 12-01-2022 Ultrasonography of l eft breast DO Kristopher Herzog [employer] Phone: Start: 09-23-2022 Plain chest X-ray DO Pernell Herzog Work Phone: Start: 09-23-2022 Urine culture DO Manuela Herzog [employer] Phone: Start: 07-16-2022 Pelvis X-ray DO Kristopher Herzog [employer] Phone: Start: 07-16-2022 Plain X-ray of right femur DO Kristopher Herzog [employer] Phone: Start: 06-23-2022 Duplex scan of lower limb veins DO Kristopher Herzog [employer] Phone: Start: 06-09-2022 Ultrasonography of l eft breast DO Kristopher Herzog [employer] Phone: Start: 02-28-2022 Esophageal manometry DO Kristopher Herzog [employer] Phone: Start: 07-05-2016 Colonoscopy Kimberly Lao LPN Plan of Treatment Date Care Activity Detail Author Start: 12-27-2033 Screening for malignant neoplasm of colon [facility] Start: 07-05-2026 Screening for malignant neoplasm of colon [facility] Start: 06-17-2025 Urine screening for protein Diabetes: Urine Protein Screening [facility] Start: 06-02-2025 Glaucoma screening Diabetes: R etinopathy Screening [facility] Start: 04-29-2025 Screening for malignant neoplasm of breast Mammogram [facility] Start: 03-04-2025 Urine screening for protein Diabetes: Urine Protein Screening [facility] Start: 01-09-2025 End: 01-09-2025 Patient encounter procedure 01/09/2025 8:45 AM EDT Office Visit [facility] [address] [place] [id number] Kristopher Herzog DO [address] [place] [address] [facility] Start: 12-27-2024 Hemoglobin A1c measurement Diabetes: Hemoglobin A1C [facility] Start: 12-16-2024 End: 12-16-2024 Patient encounter procedure 12/16/2024 9:00 AM EDT Office Visit [facility] [address] [place] [id number] Radha Verduzco DO [address] [place] [address] [facility] Start: 12-06-2024 End: 06-29-2025 DBT Breast - bilateral diagnostic Bilateral diagnostic mammogram with tomosynthesis Imaging Routine Axillary lymphadenopathy Expected: 12/06/2024 (Approximate), Expires: 06/29/2025 [facility] Work Phone: Comment on above: Expected: 12/06/2024 (Approximate), Expires: 06/29/2025 Start: 12-06-2024 Screening for malignant neoplasm of breast Mammogram [facility] Start: 12-06-2024 End: 04-29-2025 US UPPER EXTREMITY NON-VASC LEFT US UPPER EXTREMITY NON-VASC LEFT Imaging Routine Axillary lymphadenopathy Expected: 12/06/2024, Expires: 04/29/2025 [facility] Comment on above: Expected: 12/06/2024 , Expires: 04/29/2025 Start: 12-02-2024 Medicare Annual Wellness (AWV) Medicare Annual Wellness (AWV) [facility] Start: 10-31-2024 End: 10-31-2024 Patient encounter procedure 10/31/2024 8:00 AM EDT Procedure Visit [facility] [address] [place] [id number] Marlon Branham DPM [address] [place] [address] [facility] Start: 10-25-2024 End: 01-25-2025 CT Head WO contrast CT head wo IV contrast Imaging Routine Nonintractable headache, unspecified chronicity pattern, unspecified headache type Neck pain Paresthesia of left arm Numbness of fingers Expected: 10/25/2024 (Approximate), Expires: 01/25/2025 [facility] Comment on above: Expected: 10/25/2024 (Approximate), Expires: 01/25/2025 Start: 10-25-2024 End: 10-25-2025 XR Cervical spine 2 or 3 Views [facility] Work Phone: Comment on above: Expected: 10/25/2024 , Expires: 10/25/2025 Start: 10-03-2024 End: 10-03-2024 Patient encounter procedure 10/03/2024 8:45 AM EST Office Visit [facility] [address] [place] [phone] Kristopher Herzog DO [address] [place] [address] [facility] Start: 09-24-2024 End: 12-21-2024 Basic metabolic 1998 panel - Serum or Plasma Basic metabolic panel Lab Routine Primary hypertension ([facility]/HCC) Diabetic peripheral neuropathy associated with type 2 diabetes mellitus ([facility]/HCC) Expected: 09/24/2024, Expires: 12/21/2024 [facility] Comment on above: Expected: 09/24/2024 , Expires: 12/21/2024 Start: 09-24-2024 End: 12-21-2024 Hemoglobin a1c with eag Hemoglobin a1c with eag Lab Routine Diabetic peripheral neuropathy associated with type 2 diabetes mellitus (CMS/HCC) Expected: 09/24/2024, Expires: 12/21/2024 [facility] Work Phone: Comment on above: Expected: 09/24/2024 , Expires: 12/21/2024 Start: 09-23-2024 End: 09-23-2024 Patient encounter procedure 09/23/2024 8:30 AM EST Office Visit [facility] [address] [place] [address] Kristopher Herzog, DO [address] [place] [address] [facility] Start: 09-17-2024 Hemoglobin A1c measurement Diabetes: Hemoglobin A1C [facility] Start: 09-08-2024 Screening for malignant neoplasm of colon FOBT [facility] Start: 08-01-2024 End: 08-01-2024 Patient encounter procedure [facility] Comment on above: Arrived Start: 06-22-2024 End: 06-22-2024 Patient encounter procedure 06/22/2024 8:45 AM EDT Office Visit [facility] [address] [place] [address] Kristopher Herzog, DO [address] [place] [address] [facility] Start: 06-09-2024 End: 06-09-2024 Patient encounter procedure 06/09/2024 9:00 AM EDT Office Visit [facility] [address] [place] [address] Kristopher Herzog, DO [address] [place] [address] [facility] Start: 06-04-2024 Hemoglobin A1c measurement Diabetes: Hemoglobin A1C [facility] Start: 04-29-2024 End: 04-29-2024 Patient encounter procedure 04/29/2024 9:00 AM EDT [facility] [address] [place] [address] Radha Verduzco, DO [address] [place] [address] [facility] Start: 04-24-2024 Influenza vaccination Influenza Vacc ine (#1) [facility] Start: 01-06-2024 End: 01-06-2024 Patient encounter procedure 01/06/2024 10:45 AM EDT [facility] [address] [place] [address] Kristopher Herzog, DO [address] [place] [address] [facility] Start: 12-31-2023 Medicare Annual Wellness (AWV) Medicare Annual Wellness (AWV) [facility] Start: 12-28-2023 [facility] Start: 12-21-2023 End: 12-21-2023 Patient encounter procedure 12/21/2023 1:15 PM EDT Office Visit [facility] [address] [place] [address] Radha Verduzco, DO [address] [place] [address] [facility] Start: 12-16-2023 End: 12-16-2023 Patient encounter procedure 12/16/2023 10:15 AM EDT [facility] [address] [place] [phone] Marlon Branham DPM [address] [place] [address] [facility] Start: 12-04-2023 Hemoglobin A1c measurement Diabetes: Hemoglobin A1C [facility] Start: 12-02-2023 Screening for malignant neoplasm of breast Mammogram [facility] Start: 10-13-2023 End: 10-13-2023 Patient encounter procedure 10/13/2023 2:45 PM EST Office Visit [facility] [address] [place] [address] Marlon Branham DPM [address] [place] [address] [facility] Start: 12-15-2022 [facility] Start: 12-14-2022 Blood chemistry [facility] Start: 12-14-2022 End: 12-14-2022 [facility] Start: 12-13-2022 [facility] Start: 12-13-2022 Computed tomography of abdomen and pelvis with contrast CT abdomen pelvis w con [facility] Start: 12-13-2022 End: 12-13-2022 [facility] Start: 12-13-2022 Physical therapy procedure [facility] Start: 12-13-2022 Referral to occupational therapist [facility] Start: 12-13-2022 Hospital admission [facility] Start: 09-23-2022 Bacteria identified in Urine by Culture [facility] Start: 06-23-2022 Duplex scan of lower limb veins US venous duplex LE RT [facility] Start: 06-23-2022 US Lower extremity vein - right [facility] Start: 02-28-2022 [facility] Start: 05-18-2020 Screening for malignant neoplasm of colon FIT [facility] Start: 1950 Screening for malignant neoplasm of colon [facility] Patient Education [facility] Work Phone: Patient referral [facility] Work Phone: [facility] Immunizations Immunization Date Immunization Notes Care Provider Fa cili 06-22-2024 Seasonal trivalent influenza vaccine, adjuvanted, preservative free Adam Smith [employer] Work Phone: [facility] 10-08-2023 RSV, recombinant, protein subunit RSVpreF, adjuvant reconstitu, 120mcg/0.5mL, PF (Arexvy) Marlon Branham DPM Work Phone: [facility] 05-29-2023 Influenza, High-dose Seasonal, Quadrivalent, Preservative Free Kimberly Berger LPN [facility] 05-29-2023 influenza virus vaccine, unspecified formulation Marlon Branham DPM Work Phone: [facility] 05-27-2023 influenza virus vaccine, unspecified formulation Kimberly Frystown LEARNING OFFICER [facility] 05-21-2022 influenza, high dose seasonal, preservative-free Kimberly Frystown LEARNING OFFICER [facility] 12-04-2021 Pneumococcal Conjuga te PCV 20 Kimberly Frystown LEARNING OFFICER [facility] 05-31-2021 influenza, high dose seasonal, preservative-free Kimberly Frystown LEARNING OFFICER [facility] 11-14-2020 COVID-19 mRNA-1273 (Moderna) DO Kristopher Herzog Work Phone: [facility] 10-17-2020 COVID-19 mRNA-1273 (Moderna) DO Kristopher Herzog Work Phone: [facility] 07-26-2020 Seasonal trivalent influenza vaccine, adjuvanted, preservative free Kimberly Frystown LEARNING OFFICER [facility] 12-26-2019 KENALOG - 10 mg Lauren Fitt Other [facility] Other 08-22-2019 KENALOG - 10 mg Lauren Fitt Other [facility] Other 05-17-2019 Seasonal trivalent influenza vaccine, adjuvanted, preservative free Kimberly Frystown LEARNING OFFICER [facility] 01-14-2019 pneumococcal polysaccharide vaccine, 23 valent Lauren Fitt Other [facility] Other 11-05-2018 KENALOG - 10 mg Lauren Fitt Other [facility] Other 05-14-2018 influenza virus vaccine, unspecified formulation DO Kristopher Herzog Work Phone: [facility] 05-14-2018 influenza, high dose seasonal, preservative-free Lauren Fitt Other [facility] Other 06-12-2017 influenza virus vaccine, unspecified formulation DO Kristopher Herzog Work Phone: [facility] 06-12-2017 influenza, injectabl e, quadrivalent, preservative free Kimberly Frystown LEARNING OFFICER [facility] 06-12-2017 influenza, high dose seasonal, preservative-free Lauren Fitt Other [facility] Other 06-26-2016 influenza virus vaccine, unspecified formulation DO Kristopher Herzog Work Phone: [facility] 06-26-2016 influenza, high dose seasonal, preservative-free Lauren Fitt Other [facility] Other 07-06-2015 pneumococcal conjuga te vaccine, 13 valent Kimberly Frystown LEARNING OFFICER [facility] 06-15-2015 seasonal influenza, intradermal, preservative free Kimberly Frystown LEARNING OFFICER [facility] 10-27-2014 KENALOG - 10 mg Lauren Fitt Other [facility] Other 10-15-2014 KENALOG - 10 mg Lauren Fitt Other [facility] Other 05-29-2014 influenza virus vaccine, unspecified formulation DO Kristopher Herzog Work Phone: [facility] 05-29-2014 influenza, high dose seasonal, preservative-free Lauren Fitt Other [facility] Other 08-24-2013 zoster vaccine, live Kimberly Frystown LP N [facility] 04-26-2013 influenza virus vaccine, unspecified formulation DO Kristopher Herzog Work Phone: [facility] 04-26-2013 influenza, seasonal, injectable, preservative free Kimberly Frystown LEARNING OFFICER [facility] 04-26-2013 influenza, high dose seasonal, preservative-free Lauren Fitt Other [facility] Other 04-26-2013 influenza, injectabl e, quadrivalent, preservative free Kiersten Qureshi Other [facility] Other 07-28-2012 seasonal influenza, intradermal, preservative free Kimberly Berger LEARNING OFFICER [facility] 06-30-2011 pneumococcal polysaccharide vaccine, 23 valent Kimberly Berger LEARNING OFFICER [facility] 05-20-2011 seasonal influenza, intradermal, preservative free Kimberlytrey Berger [facility] Payers Date Payer Category Payer Medicare [id number] 2021 Medicare [id number] [id number] 2021 Medicare (Managed Care) 1.2. [id number] 2021 Unknown [employer] [facility] [employer] [id number] 2021-Present [address] [place] [address] [id number]. [id number] 2017 Self-pay [id number] 2017 Unknown [id number] 1950 Unknown [id number] 2.16.840.1.212411.3.579.2. 356 1950 Unknown [id number] 2.16.840.1.130898.3.579.2. 1259 1950 Unknown [id number] 2.16.840.1.690293.3.579.2. 1259 1950 Unknown [id number] 2.16.840.1.718057.3.579.2. 1259 1950 Unknown [id number] 2.16.840.1.507023.3.579.2. 1259 1950 Unknown [id number] 2.16.840.1.468980.3.579.2. 1258 1950 Unknown [id number] 2.16.840.1.833946.3.579.2. 1259 1950 Unknown [id number] 2.16.840.1.251531.3.579.2. 125 1950 Unknown [id number] 2.16.840.1.939648.3.579.2. 125 1950 Unknown [id number] 2.16.840.1.157358.3.579.2. 1258 1950 Unknown [id number] 2.16.840.1.349856.3.579.2. 1258 1950 Unknown [id number] 2.16.840.1.073129.3.579.2. 1258 1950 Unknown [id number] 2.16.840.1.549967.3.579.2. 125 1950 Unknown [id number] 2.16.840.1.277485.3.579.2. 1258 1950 Unknown [id number] 2.16.840.1.918240.3.579.2. 1259 1950 Unknown [id number] 2.16.840.1.745977.3.579.2. 1259 1950 Unknown [id number] 2.16.840.1.993276.3.579.2. 125 1950 Unknown [id number] 2.16.840.1.189121.3.579.2. 1259 Medicare Medicare [id number] Medicare [place] MCR PFFS [id number] Unknown HCAP/HFA/FAP Active [id number] Unknown [id number] 2.16.840.1.890797.3.579.2. 531 Unknown [id number] 2.16.840.1.697984.3.579.2. 531 Unknown [id number] 2.16.840.1.036494.3.579.2. 531 Unknown [id number] 2.16.840.1.160568.3.579.2. 531 Unknown [id number] 2.16.840.1.471281.3.579.2. 531 Social History Date Type Detail Facility Start: 09-08-2023 End: 12-03-2023 Sex Assigned At [facility] Other Start: 11-23-2021 End: 10-07-2024 Tobacco smoking status NMIS Ex-smoker (finding) [facility] Start: 1950 Sex Assigned At Female [facility] Start: 07-16-2022 End: 09-08-2023 Tobacco smoking status [facility] Never smoked tobacco (finding) [facility] History of tobacco use Passive smoker [facility] Start: 09-08-2023 Tobacco use and exposure Smokeless tobacco non-user [facility] Start: 09-16-2023 End: 10-03-2024 Alcohol intake Lifetime non-drinker (finding) [facility] Start: 09-08-2023 End: 12-03-2023 History of Social function [facility] Frequency of Alcohol Consumption Not on file [facility] How often do you hav e 6 or more drinks on 1 occasion? Never [facility] Start: 04-22-2023 Alcohol Comment caffeine: none [facility] Start: 1950 Sex Assigned At Not on file [facility] Start: 07-04-2024 End: 11-30-2024 Sex Female (finding) [facility] Medical Equipment Procedure Code Equipment Code Equipment Origin al Text Equipment Identifier Dates BONE 5MM DUO FDA Start: 06-18-2017 BONE 5MM DUO FDA Start: 06-18-2017 PLATE WELLS 2 LE KIARA 32MM DEPUY FDA Start: 06-18-2017 SCREW SELF DRILL ING 3.8X14MM FDA Start: 06-18-2017 SCREW SELF DRILL ING 3.8X14MM FDA Start: 06-18-2017 SCREW SELF DRILL ING 3.8X14MM FDA Start: 06-18-2017 SCREW SELF DRILL ING 3.8X14MM FDA Start: 06-18-2017 SCREW SELF DRILL ING 3.8X14MM FDA Start: 06-18-2017 SCREW SELF DRILL ING 3.8X14MM FDA Start: 06-18-2017 BONE 5MM DUO FDA Start: 06-18-2017 BONE 5MM DUO FDA Start: 06-18-2017 PLATE WELLS 2 LE KIARA 32MM DEPUY FDA Start: 06-18-2017 SCREW SELF DRILL ING 3.8X14MM FDA Start: 06-18-2017 SCREW SELF DRILL ING 3.8X14MM FDA Start: 06-18-2017 SCREW SELF DRILL ING 3.8X14MM FDA Start: 06-18-2017 SCREW SELF DRILL ING 3.8X14MM FDA Start: 06-18-2017 SCREW SELF DRILL ING 3.8X14MM FDA Start: 06-18-2017 SCREW SELF DRILL ING 3.8X14MM FDA Start: 06-18-2017 BONE 5MM DUO FDA Start: 06-18-2017 BONE 5MM DUO FDA Start: 06-18-2017 PLATE WELLS 2 LE KIARA 32MM DEPUY FDA Start: 06-18-2017 SCREW SELF DRILL ING 3.8X14MM FDA Start: 06-18-2017 SCREW SELF DRILL ING 3.8X14MM FDA Start: 06-18-2017 SCREW SELF DRILL ING 3.8X14MM FDA Start: 06-18-2017 SCREW SELF DRILL ING 3.8X14MM FDA Start: 06-18-2017 SCREW SELF DRILL ING 3.8X14MM FDA Start: 06-18-2017 SCREW SELF DRILL ING 3.8X14MM FDA Start: 06-18-2017 BONE 5MM DUO FDA Start: 06-18-2017 BONE 5MM DUO FDA Start: 06-18-2017 PLATE WELLS 2 LE KIARA 32MM DEPUY FDA Start: 06-18-2017 SCREW SELF DRILL ING 3.8X14MM FDA Start: 06-18-2017 SCREW SELF DRILL ING 3.8X14MM FDA Start: 06-18-2017 SCREW SELF DRILL ING 3.8X14MM FDA Start: 06-18-2017 SCREW SELF DRILL ING 3.8X14MM FDA Start: 06-18-2017 SCREW SELF DRILL ING 3.8X14MM FDA Start: 06-18-2017 SCREW SELF DRILL ING 3.8X14MM FDA Start: 06-18-2017 BONE 5MM DUO FDA Start: 06-18-2017 BONE 5MM DUO FDA Start: 06-18-2017 PLATE WELLS 2 LE KIARA 32MM DEPUY FDA Start: 06-18-2017 SCREW SELF DRILL ING 3.8X14MM FDA Start: 06-18-2017 SCREW SELF DRILL ING 3.8X14MM FDA Start: 06-18-2017 SCREW SELF DRILL ING 3.8X14MM FDA Start: 06-18-2017 SCREW SELF DRILL ING 3.8X14MM FDA Start: 06-18-2017 SCREW SELF DRILL ING 3.8X14MM FDA Start: 06-18-2017 SCREW SELF DRILL ING 3.8X14MM FDA Start: 06-18-2017 BONE 5MM DUO FDA Start: 06-18-2017 BONE 5MM DUO FDA Start: 06-18-2017 PLATE WELLS 2 LE KIARA 32MM DEPUY FDA Start: 06-18-2017 SCREW SELF DRILL ING 3.8X14MM FDA Start: 06-18-2017 SCREW SELF DRILL ING 3.8X14MM FDA Start: 06-18-2017 SCREW SELF DRILL ING 3.8X14MM FDA Start: 06-18-2017 SCREW SELF DRILL ING 3.8X14MM FDA Start: 06-18-2017 SCREW SELF DRILL ING 3.8X14MM FDA Start: 06-18-2017 SCREW SELF DRILL ING 3.8X14MM FDA Start: 06-18-2017 BONE 5MM DUO FDA Start: 06-18-2017 BONE 5MM DUO FDA Start: 06-18-2017 PLATE WELLS 2 LE KIARA 32MM DEPUY FDA Start: 06-18-2017 SCREW SELF DRILL ING 3.8X14MM FDA Start: 06-18-2017 SCREW SELF DRILL ING 3.8X14MM FDA Start: 06-18-2017 SCREW SELF DRILL ING 3.8X14MM FDA Start: 06-18-2017 SCREW SELF DRILL ING 3.8X14MM FDA Start: 06-18-2017 SCREW SELF DRILL ING 3.8X14MM FDA Start: 06-18-2017 SCREW SELF DRILL ING 3.8X14MM FDA Start: 06-18-2017 BONE 5MM DUO FDA Start: 06-18-2017 BONE 5MM DUO FDA Start: 06-18-2017 PLATE WELLS 2 LE KIARA 32MM DEPUY FDA Start: 06-18-2017 SCREW SELF DRILL ING 3.8X14MM FDA Start: 06-18-2017 SCREW SELF DRILL ING 3.8X14MM FDA Start: 06-18-2017 SCREW SELF DRILL ING 3.8X14MM FDA Start: 06-18-2017 SCREW SELF DRILL ING 3.8X14MM FDA Start: 06-18-2017 SCREW SELF DRILL ING 3.8X14MM FDA Start: 06-18-2017 SCREW SELF DRILL ING 3.8X14MM FDA Start: 06-18-2017 BONE 5MM DUO FDA Start: 06-18-2017 BONE 5MM DUO FDA Start: 06-18-2017 PLATE WELLS 2 LE KIARA 32MM DEPUY FDA Start: 06-18-2017 SCREW SELF DRILL ING 3.8X14MM FDA Start: 06-18-2017 SCREW SELF DRILL ING 3.8X14MM FDA Start: 06-18-2017 SCREW SELF DRILL ING 3.8X14MM FDA Start: 06-18-2017 SCREW SELF DRILL ING 3.8X14MM FDA Start: 06-18-2017 SCREW SELF DRILL ING 3.8X14MM FDA Start: 06-18-2017 SCREW SELF DRILL ING 3.8X14MM FDA Start: 06-18-2017 [id number] Start: 08-20-2022 1 each by Other route in the morning and 1 each at noon and 1 each in the evening and 1 each before bedtime. [id number] USE TO TEST BLOO D SUGAR 3 TIMES DAILY DIRECTED [id number] Start: 06-13-2023 USE TO TEST BLOO D SUGAR THREE TIMES A DAY DIRECTED [id number] Start: 06-13-2023 BONE 5MM DUO FDA Start: 06-18-2017 BONE 5MM DUO FDA Start: 06-18-2017 PLATE WELLS 2 LE KIARA 32MM DEPUY FDA Start: 06-18-2017 SCREW SELF DRILL ING 3.8X14MM FDA Start: 06-18-2017 SCREW SELF DRILL ING 3.8X14MM FDA Start: 06-18-2017 SCREW SELF DRILL ING 3.8X14MM FDA Start: 06-18-2017 SCREW SELF DRILL ING 3.8X14MM FDA Start: 06-18-2017 SCREW SELF DRILL ING 3.8X14MM FDA Start: 06-18-2017 SCREW SELF DRILL ING 3.8X14MM FDA Start: 06-18-2017 BONE 5MM DUO FDA Start: 06-18-2017 BONE 5MM DUO FDA Start: 06-18-2017 PLATE WELLS 2 LE KIARA 32MM DEPUY FDA Start: 06-18-2017 SCREW SELF DRILL ING 3.8X14MM FDA Start: 06-18-2017 SCREW SELF DRILL ING 3.8X14MM FDA Start: 06-18-2017 SCREW SELF DRILL ING 3.8X14MM FDA Start: 06-18-2017 SCREW SELF DRILL ING 3.8X14MM FDA Start: 06-18-2017 SCREW SELF DRILL ING 3.8X14MM FDA Start: 06-18-2017 SCREW SELF DRILL ING 3.8X14MM FDA Start: 06-18-2017 BONE 5MM DUO FDA Start: 06-18-2017 BONE 5MM DUO FDA Start: 06-18-2017 PLATE WELLS 2 LE KIARA 32MM DEPUY FDA Start: 06-18-2017 SCREW SELF DRILL ING 3.8X14MM FDA Start: 06-18-2017 SCREW SELF DRILL ING 3.8X14MM FDA Start: 06-18-2017 SCREW SELF DRILL ING 3.8X14MM FDA Start: 06-18-2017 SCREW SELF DRILL ING 3.8X14MM FDA Start: 06-18-2017 SCREW SELF DRILL ING 3.8X14MM FDA Start: 06-18-2017 SCREW SELF DRILL ING 3.8X14MM FDA Start: 06-18-2017 BONE 5MM DUO FDA Start: 06-18-2017 BONE 5MM DUO FDA Start: 06-18-2017 PLATE WELLS 2 LE KIARA 32MM DEPUY FDA Start: 06-18-2017 SCREW SELF DRILL ING 3.8X14MM FDA Start: 06-18-2017 SCREW SELF DRILL ING 3.8X14MM FDA Start: 06-18-2017 SCREW SELF DRILL ING 3.8X14MM FDA Start: 06-18-2017 SCREW SELF DRILL ING 3.8X14MM FDA Start: 06-18-2017 SCREW SELF DRILL ING 3.8X14MM FDA Start: 06-18-2017 SCREW SELF DRILL ING 3.8X14MM FDA Start: 06-18-2017 BONE 5MM DUO FDA Start: 06-18-2017 BONE 5MM DUO FDA Start: 06-18-2017 PLATE WELLS 2 LE KIARA 32MM DEPUY FDA Start: 06-18-2017 SCREW SELF DRILL ING 3.8X14MM FDA Start: 06-18-2017 SCREW SELF DRILL ING 3.8X14MM FDA Start: 06-18-2017 SCREW SELF DRILL ING 3.8X14MM FDA Start: 06-18-2017 SCREW SELF DRILL ING 3.8X14MM FDA Start: 06-18-2017 SCREW SELF DRILL ING 3.8X14MM FDA Start: 06-18-2017 SCREW SELF DRILL ING 3.8X14MM FDA Start: 06-18-2017 BONE 5MM DUO FDA Start: 06-18-2017 BONE 5MM DUO FDA Start: 06-18-2017 PLATE WELLS 2 LE KIARA 32MM DEPUY FDA Start: 06-18-2017 SCREW SELF DRILL ING 3.8X14MM FDA Start: 06-18-2017 SCREW SELF DRILL ING 3.8X14MM FDA Start: 06-18-2017 SCREW SELF DRILL ING 3.8X14MM FDA Start: 06-18-2017 SCREW SELF DRILL ING 3.8X14MM FDA Start: 06-18-2017 SCREW SELF DRILL ING 3.8X14MM FDA Start: 06-18-2017 SCREW SELF DRILL ING 3.8X14MM FDA Start: 06-18-2017 BONE 5MM DUO FDA Start: 06-18-2017 BONE 5MM DUO FDA Start: 06-18-2017 PLATE WELLS 2 LE KIARA 32MM DEPUY FDA Start: 06-18-2017 SCREW SELF DRILL ING 3.8X14MM FDA Start: 06-18-2017 SCREW SELF DRILL ING 3.8X14MM FDA Start: 06-18-2017 SCREW SELF DRILL ING 3.8X14MM FDA Start: 06-18-2017 SCREW SELF DRILL ING 3.8X14MM FDA Start: 06-18-2017 SCREW SELF DRILL ING 3.8X14MM FDA Start: 06-18-2017 SCREW SELF DRILL ING 3.8X14MM FDA Start: 06-18-2017 BONE 5MM DUO FDA Start: 06-18-2017 BONE 5MM DUO FDA Start: 06-18-2017 PLATE WELLS 2 LE KIARA 32MM DEPUY FDA Start: 06-18-2017 SCREW SELF DRILL ING 3.8X14MM FDA Start: 06-18-2017 SCREW SELF DRILL ING 3.8X14MM FDA Start: 06-18-2017 SCREW SELF DRILL ING 3.8X14MM FDA Start: 06-18-2017 SCREW SELF DRILL ING 3.8X14MM FDA Start: 06-18-2017 SCREW SELF DRILL ING 3.8X14MM FDA Start: 06-18-2017 SCREW SELF DRILL ING 3.8X14MM FDA Start: 06-18-2017 BONE 5MM DUO FDA Start: 06-18-2017 BONE 5MM DUO FDA Start: 06-18-2017 PLATE WELLS 2 LE KIARA 32MM DEPUY FDA Start: 06-18-2017 SCREW SELF DRILL ING 3.8X14MM FDA Start: 06-18-2017 SCREW SELF DRILL ING 3.8X14MM FDA Start: 06-18-2017 SCREW SELF DRILL ING 3.8X14MM FDA Start: 06-18-2017 SCREW SELF DRILL ING 3.8X14MM FDA Start: 06-18-2017 SCREW SELF DRILL ING 3.8X14MM FDA Start: 06-18-2017 SCREW SELF DRILL ING 3.8X14MM FDA Start: 06-18-2017 BONE 5MM DUO FDA Start: 06-18-2017 BONE 5MM DUO FDA Start: 06-18-2017 PLATE WELLS 2 LE KIARA 32MM DEPUY FDA Start: 06-18-2017 SCREW SELF DRILL ING 3.8X14MM FDA Start: 06-18-2017 SCREW SELF DRILL ING 3.8X14MM FDA Start: 06-18-2017 SCREW SELF DRILL ING 3.8X14MM FDA Start: 06-18-2017 SCREW SELF DRILL ING 3.8X14MM FDA Start: 06-18-2017 SCREW SELF DRILL ING 3.8X14MM FDA Start: 06-18-2017 SCREW SELF DRILL ING 3.8X14MM FDA Start: 06-18-2017 BONE 5MM DUO FDA Start: 06-18-2017 BONE 5MM DUO FDA Start: 06-18-2017 PLATE WELLS 2 LE KIARA 32MM DEPUY FDA Start: 06-18-2017 SCREW SELF DRILL ING 3.8X14MM FDA Start: 06-18-2017 SCREW SELF DRILL ING 3.8X14MM FDA Start: 06-18-2017 SCREW SELF DRILL ING 3.8X14MM FDA Start: 06-18-2017 SCREW SELF DRILL ING 3.8X14MM FDA Start: 06-18-2017 SCREW SELF DRILL ING 3.8X14MM FDA Start: 06-18-2017 SCREW SELF DRILL ING 3.8X14MM FDA Start: 06-18-2017 BONE 5MM DUO FDA Start: 06-18-2017 BONE 5MM DUO FDA Start: 06-18-2017 PLATE WELLS 2 LE KIARA 32MM DEPUY FDA Start: 06-18-2017 SCREW SELF DRILL ING 3.8X14MM FDA Start: 06-18-2017 SCREW SELF DRILL ING 3.8X14MM FDA Start: 06-18-2017 SCREW SELF DRILL ING 3.8X14MM FDA Start: 06-18-2017 SCREW SELF DRILL ING 3.8X14MM FDA Start: 06-18-2017 SCREW SELF DRILL ING 3.8X14MM FDA Start: 06-18-2017 SCREW SELF DRILL ING 3.8X14MM FDA Start: 06-18-2017 USE TO TEST BLOO D SUGAR THREE TIMES A DAY DIRECTED [id number] Start: 11-09-2023 USE TO TEST BLOO D SUGAR 3 TIMES DAILY DIRECTED [id number] Start: 11-09-2023 BONE 5MM DUO FDA Start: 06-18-2017 BONE 5MM DUO FDA Start: 06-18-2017 PLATE WELLS 2 LE KIARA 32MM DEPUY FDA Start: 06-18-2017 SCREW SELF DRILL ING 3.8X14MM FDA Start: 06-18-2017 SCREW SELF DRILL ING 3.8X14MM FDA Start: 06-18-2017 SCREW SELF DRILL ING 3.8X14MM FDA Start: 06-18-2017 SCREW SELF DRILL ING 3.8X14MM FDA Start: 06-18-2017 SCREW SELF DRILL ING 3.8X14MM FDA Start: 06-18-2017 SCREW SELF DRILL ING 3.8X14MM FDA Start: 06-18-2017 BONE 5MM DUO FDA Start: 06-18-2017 BONE 5MM DUO FDA Start: 06-18-2017 PLATE WELLS 2 LE KIARA 32MM DEPUY FDA Start: 06-18-2017 SCREW SELF DRILL ING 3.8X14MM FDA Start: 06-18-2017 SCREW SELF DRILL ING 3.8X14MM FDA Start: 06-18-2017 SCREW SELF DRILL ING 3.8X14MM FDA Start: 06-18-2017 SCREW SELF DRILL ING 3.8X14MM FDA Start: 06-18-2017 SCREW SELF DRILL ING 3.8X14MM FDA Start: 06-18-2017 SCREW SELF DRILL ING 3.8X14MM FDA Start: 06-18-2017 BONE 5MM DUO FDA Start: 06-18-2017 BONE 5MM DUO FDA Start: 06-18-2017 PLATE WELLS 2 LE KIARA 32MM DEPUY FDA Start: 06-18-2017 SCREW SELF DRILL ING 3.8X14MM FDA Start: 06-18-2017 SCREW SELF DRILL ING 3.8X14MM FDA Start: 06-18-2017 SCREW SELF DRILL ING 3.8X14MM FDA Start: 06-18-2017 SCREW SELF DRILL ING 3.8X14MM FDA Start: 06-18-2017 SCREW SELF DRILL ING 3.8X14MM FDA Start: 06-18-2017 SCREW SELF DRILL ING 3.8X14MM FDA Start: 06-18-2017 BONE 5MM DUO FDA Start: 06-18-2017 BONE 5MM DUO FDA Start: 06-18-2017 PLATE WELLS 2 LE KIARA 32MM DEPUY FDA Start: 06-18-2017 SCREW SELF DRILL ING 3.8X14MM FDA Start: 06-18-2017 SCREW SELF DRILL ING 3.8X14MM FDA Start: 06-18-2017 SCREW SELF DRILL ING 3.8X14MM FDA Start: 06-18-2017 SCREW SELF DRILL ING 3.8X14MM FDA Start: 06-18-2017 SCREW SELF DRILL ING 3.8X14MM FDA Start: 06-18-2017 SCREW SELF DRILL ING 3.8X14MM FDA Start: 06-18-2017 BONE 5MM DUO FDA Start: 06-18-2017 BONE 5MM DUO FDA Start: 06-18-2017 PLATE WELLS 2 LE KIARA 32MM DEPUY FDA Start: 06-18-2017 SCREW SELF DRILL ING 3.8X14MM FDA Start: 06-18-2017 SCREW SELF DRILL ING 3.8X14MM FDA Start: 06-18-2017 SCREW SELF DRILL ING 3.8X14MM FDA Start: 06-18-2017 SCREW SELF DRILL ING 3.8X14MM FDA Start: 06-18-2017 SCREW SELF DRILL ING 3.8X14MM FDA Start: 06-18-2017 SCREW SELF DRILL ING 3.8X14MM FDA Start: 06-18-2017 BONE 5MM DUO FDA Start: 06-18-2017 BONE 5MM DUO FDA Start: 06-18-2017 PLATE WELLS 2 LE KIARA 32MM DEPUY FDA Start: 06-18-2017 SCREW SELF DRILL ING 3.8X14MM FDA Start: 06-18-2017 SCREW SELF DRILL ING 3.8X14MM FDA Start: 06-18-2017 SCREW SELF DRILL ING 3.8X14MM FDA Start: 06-18-2017 SCREW SELF DRILL ING 3.8X14MM FDA Start: 06-18-2017 SCREW SELF DRILL ING 3.8X14MM FDA Start: 06-18-2017 SCREW SELF DRILL ING 3.8X14MM FDA Start: 06-18-2017 BONE 5MM DUO FDA Start: 06-18-2017 BONE 5MM DUO FDA Start: 06-18-2017 PLATE WELLS 2 LE KIARA 32MM DEPUY FDA Start: 06-18-2017 SCREW SELF DRILL ING 3.8X14MM FDA Start: 06-18-2017 SCREW SELF DRILL ING 3.8X14MM FDA Start: 06-18-2017 SCREW SELF DRILL ING 3.8X14MM FDA Start: 06-18-2017 SCREW SELF DRILL ING 3.8X14MM FDA Start: 06-18-2017 SCREW SELF DRILL ING 3.8X14MM FDA Start: 06-18-2017 SCREW SELF DRILL ING 3.8X14MM FDA Start: 06-18-2017 Goals Date Patient Goal Desired Activity /State Functional Status Date Assessment Result Facility 12-15-2022 Functional status Patient at Baseline [facility] Work Phone: Mental Status Date Assessment Result Facility 12-15-2022 Cognitive function Cognitive Sta tus Patient at [facility] Work Phone: Clinical Notes 05-15-2021 to 10-25-2024 Venita Marques, FLORESITA - 10/25/2024 2:00 PM EST Note Date & Type Note Facility 10-25-2024 History of Presen t illness Narrative Images from the original note were not included. Subjective Patient ID: Nicol Frances (: 1950) is a 74 y.o. female who presents for ER Follow-up. HPI History of Present Illness The patient presents for evaluation of headaches, diabetes, and left arm pain. She has been experiencing severe headaches, which she attributes to fluctuations in her blood glucose levels. These headaches have been a persistent issue for several months. She has not taken any Tylenol for her current headache. She has not told Dr. Herzog about the headaches. She was recently admitted to the emergency room due to elevated blood glucose levels. She has been diligently monitoring her blood glucose levels and dietary intake since the New Year, maintaining a detailed record of her readings at various times. Her blood glucose level was recorded as 155 at 1:00 PM today, and it has since decreased to 132. She also reports episodes of hypoglycemia, with readings as low as 72 and 77. She is currently on a regimen of insulin, administered at a dosage of 14 units twice daily. She took 14 units of insulin this morning and is scheduled to take another dose this evening. She has brought her medications with her today. She states she gets the headaches when her blood sugars go from high to low. She denies vision changes or dizziness. She did have a fall in January which she had a CT of the head in ER. Patient is on blood thinners. She reports experiencing intermittent pain in her left arm and jaw over the past weekend. The pain initially subsided but recurred on Thursday. An EKG performed in the emergency room yielded normal results. She continues to experience arm pain and tingling in her fingers but reports no recent jaw pain. She has a known diagnosis of arthritis in her neck. She does not recall having an ultrasound of her left upper extremity in April 2024. Current Outpatient Medications Medication Instructions acetaminophen (TYLENOL EXTRA STRENGTH) 1,000 mg, 2 times daily PRN BD Insulin Syringe U/F 30G X 1/2 0.5 ML [facility] [place] cholecalciferol (VITAMIN D-3) 1,000 Units, Daily citalopram (CELEXA) 20 mg, Oral, Every morning clobetasol (Temovate) 0.05 % ointment Topical, 2 times daily clobetasol (Temovate) 0.05 % ointment Topical, 2 times daily Continuous Glucose Foundry Operator (FreeStyle Carline 3 Mallory) device 1 Device, Does not apply, Continuous Continuous Glucose Sensor (FreeStyle Carline 3 Sensor) misc 1 Device, Does not apply, Every 14 days glucose blood (OneTouch Verio) test strip USE TO TEST BLOOD SUGAR THREE TIMES A DAY DIRECTED Lancet Devices (Autolet) lancing device 1 each, 4 times daily Lancets (OneTouch Delica Plus [id number]) [facility] [place] TO TEST BLOOD [place]GAR 3 TIMES DAILY DIRECTED losartan (COZAAR) 50 mg, Oral, Every morning Multiple Vitamins-Minerals (Ocuvite Adult Formula) capsule as directed Orally Multiple Vitamins-Minerals (PreserVision AREDS) tablet as directed Orally NovoLOG MIX 70/30 (70-30) 100 UNIT/ML injection INJECT 12 UNITS SUBCUTANEOUSLY TWICE A DAY IN THE MORNING AND EVENING WITH MEALS pantoprazole (PROTONIX) 40 mg, Oral, Daily before breakfast rosuvastatin (CRESTOR) 20 mg, Oral, Nightly sulfaSALAzine (Azulfidine) 500 MG tablet TAKE TWO (2) TABLETS BY MOUTH THREE TIMES PER DAY warfarin (Coumadin) 3 MG tablet TAKE 1/2 TAB ORALLY ON THURSDAY AND THURSDAY, 1 TABLET DAILY ALL OTHER DAYS OR PER COUMADIN CLINIC No Known Allergies Patient Active Problem List Diagnosis Mixed hyperlipidemia (CMS/HCC) Obstructive sleep apnea syndrome Steatosis of liver HTN (hypertension) (CMS/HCC) Peripheral venous insufficiency Anxiety disorder Chronic deep vein thrombosis (DVT) of femoral vein of left lower extremity (CMS/HCC) 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 machines and devices Diabetic peripheral neuropathy associated with type 2 diabetes mellitus (CMS/HCC) Gastroesophageal reflux disease Hypercoagulable state (CMS/HCC) 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 Negative for chills and fever. Respiratory: Negative for cough, shortness of breath and wheezing. Cardiovascular: Negative for chest pain, palpitations and leg swelling. Gastrointestinal: Negative for diarrhea, nausea and vomiting. Neurological: Positive for numbness (tingling/L arm and fingers) and headaches. Negative for dizziness and light-headedness. Objective Vital signs: BP 120/58 (Patient Position: Sitting) Pulse 74 Resp 16 SpO2 98% Recent Results (from the past 12 weeks) Hemoglobin a1c with eag Collection Time: 09/29/24 8:47 AM Result Value Ref Range HgbA1C 6.8 (H) 4.8 - 5.6 % Est Avg Gluc eAG 148 mg/dL Basic metabolic panel Collection Time: 09/29/24 8:47 AM Result Value Ref Range Glucose 90 70 - 99 mg/dL BUN 17 8 - 27 mg/dL Creat 0.90 0.57 - 1.00 mg/dL EGFR 68 >59 mL/min/1.73 BUN/Creat Ratio 19 12 - 28 Sodium 139 134 - 144 mmol/L Potassium 4.2 3.5 - 5.2 mmol/L Chloride 105 96 - 106 mmol/L Carbon Dioxide 21 20 - 29 mmol/L Calcium 9.4 8.7 - 10.3 mg/dL Physical Exam Constitutional: Appearance: Normal appearance. HENT: Head: Normocephalic. Mouth/Throat: Mouth: Mucous membranes are moist. Eyes: Extraocular Movements: Extraocular movements intact. Pupils: Pupils are equal, round, and reactive to light. Cardiovascular: Rate and Rhythm: Normal rate and regular rhythm. Pulmonary: Effort: Pulmonary effort is normal. Breath sounds: Normal breath sounds. Skin: General: Skin is warm and dry. Neurological: Mental Status: She is alert and oriented to person, place, and time. Psychiatric: Mood and Affect: Mood normal. Assessment/Plan Assessment & Plan 1. Headaches. The etiology of the headaches remains uncertain, with potential contributing factors including dietary intake and cervical spine issues. I did review her ER note and her most recent blood sugars which have not been greatly elevated. She has been using both her monitor and her finger stick which they are very close in results. I discussed with her that I would also like to rule out that her neck is not the one causing her headaches and the sensation in her arm. A cervical spine x-ray will be ordered to investigate any potential neck-related causes. A CT scan of the head will also be ordered for further evaluation. She has been provided with Tylenol to manage her headaches as needed. She is advised to maintain a headache log for a duration of one week and report the frequency of her headaches. She is also instructed to continue monitoring her blood glucose levels and record any instances of headaches. She will return on Thursday to e office after her podiatry appt provide an update on her condition. 2. Diabetes Mellitus. Blood glucose levels have been fluctuating, with occasional highs and lows. She is currently on insulin 14 units twice a day. She is advised to continue her current insulin regimen. She is also instructed to monitor her blood glucose levels closely and report any significant changes. If her blood glucose levels drop into the 50s, she should seek immediate medical attention. Problem List Items Addressed This Visit None Visit Diagnoses Nonintractable headache, unspecified chronicity pattern, unspecified headache type - Primary Relevant Orders XR cervical spine 2 or 3 views Neck pain Relevant Orders XR cervical spine 2 or 3 views Paresthesia of left arm Numbness of fingers Health Maintenance Topic Date Due Medicare Annual Wellness (AWV) 12/02/2024 Diabetes: Hemoglobin A1C 12/27/2024 Diabetes: Urine Protein Screening 03/04/2025 Mammogram 04/29/2025 Diabetes: Retinopathy Screening 06/02/2025 Colorectal Cancer Screening 12/27/2033 Influenza Vaccine Completed Pneumococcal Vaccine: 65+ Years Completed Immunization History Administered Date(s) Administered Influenza, High Dose Seasonal, Preservative Free 05/29/2014, 06/26/2016, 05/14/2018, 05/31/2021, 05/21/2022 Influenza, High-dose Seasonal, Quadrivalent, Preservative Free 05/29/2023 Influenza, Unspecified 04/26/2013, 05/29/2014, 06/26/2016, 06/12/2017, 05/14/2018, 05/27/2023 Influenza, injectable, quadrivalent, preservative free 06/12/2017 Influenza, seasonal, injectable, preservative free 04/26/2013 Influenza, seasonal, intradermal, preservative free 05/20/2011, 07/28/2012, 06/15/2015 Influenza, trivalent, adjuvanted 05/17/2019, 07/26/2020, 06/22/2024 Moderna SARS-CoV-2 Vaccination 10/17/2020, 11/14/2020, 05/27/2021 Pneumococcal Conjugate PCV 13 07/06/2015 Pneumococcal Conjugate PCV 20 12/04/2021 Pneumococcal Polysaccharide PPSV23 06/30/2011, 01/14/2019 RSV, recombinant, protein subunit RSVpreF, adjuvant reconstitu, 120mcg/0.5mL, PF (Arexvy) 10/08/2023 SARS-COV-2 (COVID-19) vaccine, mRNA, spike protein, LNP, PF, 50 mcg/0.5 mL 10/08/2023 Zoster, live 08/24/2013 -Patient's chronic conditions have been reviewed in preparation for this appointment. Protocols reviewed and updated. A collaborative plan of care has been created for pt regarding specific health concerns. Any barriers to care have been identified and addressed. Any part of this document that has been added/copied from other documents has been reviewed for accuracy and updated as appropriate at the time of the patient encounter. -Follow up for Next scheduled follow-up. Venita Marques NP documented in this encounter [facility] 09-09-2024 Evaluation note Diagnosis Onset Date Resolution History of DVT (deep vein thrombosis) acute September 09 8:43am History of pulmonary embolism acute September 09 8:43am History of DVT (deep vein thrombosis) acute October 05, 2024 8:36am History of pulmonary embolism acute October 05 8:36am Crohn's colitis acute October 07, 2024 9:04am History of DVT (deep vein thrombosis) acute November 02 8:51am History of pulmonary embolism acute November 02, 2024 8:51am [facility] Work Phone: 1(396) 472-840101-17-2025 Evaluation note* Diagnosis Onset Date Resolution Status Admit Date History of DVT (deep vein thrombosis) acute September 09 8:43am History of pulmonary embolism acute September 09, 2024 8:43am History of DVT (deep vein thrombosis) acute October 05 8:36am History of pulmonary embolism acute October 05, 2024 8:36am Crohn's colitis acute October 07, 2024 9:04am History of DVT (deep vein thrombosis) acute November 02, 2024 8:51am History of pulmonary embolism acute November 02, 2024 8:51am History of DVT (deep vein thrombosis) acute November 30, 2024 8:37am History of pulmonary embolism acute November 30, 2024 8:37am [facility] Work Phone: 1(537) 876-355312-11-2024 Evaluation note* Diagnosis Onset Date Resolution Status Admit Date History of DVT (deep vein thrombosis) acute August 03, 024 8:24am History of pulmonary embolism acute August 03, 2024 8:24am History of DVT (deep vein thrombosis) acute September 09 8:43am History of pulmonary embolism acute September 09, 2024 8:43am History of DVT (deep vein thrombosis) acute October 05 8:36am History of pulmonary embolism acute October 05, 2024 8:36am [facility] Work Phone: 1(211) 906-625512-11-2024 Evaluation note* Diagnosis Onset Date Resolution Status Admit Date History of DVT (deep vein thrombosis) acute August 03, 8:24am History of pulmonary embolism acute August 03, 2024 8:24am History of DVT (deep vein thrombosis) acute September 09 8:43am History of pulmonary embolism acute September 09, 2024 8:43am History of DVT (deep vein thrombosis) acute October 05 8:36am History of pulmonary embolism acute October 05, 2024 8:36am Crohn's colitis acute October 07, 2024 9:04am [facility] Work Phone: 1(290) 478-939312-09-2024 History of Present illness Narrative* Marlon Branham DPM - 08/01/2024 8:30 AM EST Images from the original note were not included. HPI: Diabetic/Routine Nail Care: Pt present in office today for diabetic nail care. Location: nails on bilateral feet. Severity of symptoms mild. Onset gradual. Status: no change. Context: hard to trim, hard to reach. NAILS: thickened, discolored, pain. Relieved by: debridement, filing down nails, clipping nails. History of ulcers/wounds: no. Recent BS reading, if diabetic: A1C 7.3 PCP: Dr. Herzog. Date of Last visit: 06/22/24 Aggravated by: shoe gear, pressure. Risk factors: diabetes. Examination: General Examination: GENERAL EXAMINATION: alert, well hydrated, in no distress , awake, aware of surroundings. FOOT EXAM: Date of Last Foot Exam 12/09/24 Diabetic Shoe & Insert: Previous amputation of the other foot, or part of the footNo. History of previous foot ulceration of foot Yes. History of pre-ulcerative callous of foot:Yes. Peripheral of Neuropathy with evidence of callous formation:Yes. Foot deformity Yes- hammertoe deformities 2-5 bilateral. Poor circulation:Yes- decreased pulses bilateral foot. Patient's DM shoes with inserts fit well to her feet without any areas of rubbing or pain. Vascular: DORSALIS PEDIS PULSE:2/4, bilaterally. POSTERIOR TIBIAL PULSE:0/4, bilaterally. TEMPERATURE GRADIENT:warm to cool. EDEMA:minimal, bilateral ankle, severe edema and varicosities noted to the left leg. INSPECTION:mild erythema over the right 1st MPJ. VARICOSITIES: present, bilateral LE. CAPILLARY FILLING TIME(sec):less than 3 seconds, bilateral. Neurologic: VIBRATORY:abnormal. SEMMES-JOHN 5.07 MONOFILAMENTabnormal, bilateral. Dermatologic: SKIN FINDINGS:Small nevus plantar lateral aspect of the left hallux, 0.2 cm in diameter. Evidence of petechiae and dermatitis along the dorsal aspect of the bilateral foot. Patient has been experiencing some itching and discoloration in this area. HYPERKERATOSIS:Location: distal aspect of the left 2nd, 3rd digit, distal medial right hallux, sub 1st MPJ left NAIL PATHOLOGY:digits 1-5 bilateral are intact. SKIN PATHOLOGY:thin, shiny, atrophic, decreased hair growth, pigment discoloration changes, varicosities bilateral lower extremity left > right. Nail Pathology: Left Foot: 1 (great toe)Long, Thick, Crumbly, Deformed, Discolored, Brittle, Dystrophic, subungal hematoma noted to the proximal aspect of the nail, no pain to the area. 2Long, Thick, Crumbly, Deformed, Discolored, Brittle, Dystrophic. 3Long, Thick, Crumbly, Deformed, Discolored, Brittle, Dystrophic. 4Long, Thick, Crumbly, Deformed, Discolored, Brittle, Dystrophic. 5Long, Thick, Crumbly, Deformed, Discolored, Brittle, Dystrophic. Nail Pathology: Right Foot: 1 (great toe)Long, Thick, Crumbly, Deformed, Discolored, Brittle, Dystrophic. 2Long, Thick, Crumbly, Deformed, Discolored, Brittle, Dystrophic. 3Long, Thick, Crumbly, Deformed, Discolored, Brittle, Dystrophic. 4Long, Thick, Crumbly, Deformed, Discolored, Brittle, Dystrophic. 5Long, Thick, Crumbly, Deformed, Discolored, Brittle, Dystrophic. Ankle / Foot: MUSCLE STRENGTH:4/5. Orthopedic: DEFORMITIES:Hammer toe deformities 2-5 bilateral, dorsal dislocation hallux bilateral, plantar fat pad atrophy, hav deformity left, delta phalanx with lateral deviation of the right hallux IPJ PAIN ELICITED WITH PALPATION OF: overlying the callous formation left 3rd digit Modifier: -Q8. Assessment: 1. Dermatophytosis of nail - B35.1 (Primary) 2. Foot pain, left - M79.672 3. Foot pain, right - M79.671 4. Venous insufficiency - I87.2 5. Generalized edema - R60.1 6. Hammertoe, left - M20.42 7. Corns and callosities - L84 9. 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 Nails were debrided in length and thickness by manual and mechanical means. 2. Advised patient on continued proper diabetic foot care including daily monitoring of their feet for any new complaints or concerns that may arise. 3. Discussed importance of tight blood sugar control to prevent future complications. 4. RTC: 9-12 weeks or as needed if problems arise. Callous: 1. Hyperkeratosis/porokeratosis as above noted was debrided. 2. Instructed patient on use of aperture pads or Silipos padding/toe spacers to prevent rubbing andcontinued development of the hyperkeratosis. 3. Also discussed use of moisturizing creams for overall increased hydration to the skin. 4. Discussed continued use of proper foot gear to avoid excess pressure over the callous site. Toe deformity: Patient would like to consider surgery for the right hallux deformity. She is going to wait until next year because her insurance is changing and she had a $250 deductible for surgery last time. I advised that she can call with her new insurance information and we can start the pre-certification process. We would be doing a Arthur osteotomy to the right hallux to correct the delta phlanax deformity. If patient does not call we can start pre-cert after her next appointment. [id number] Evaluation note* Diagnosis Onset Date Resolution Status Admit Date Crohn's colitis acute June 29, 2024 10:28am Internal hemorrhoids acute Novtrey mber 2023 10:28am History of DVT (deep vein thrombosis) acute July 04, 024 8:29am History of pulmonary embolism acute July 04, 2024 8:29am History of DVT (deep vein thrombosis) acute August 03, 024 8:24am History of pulmonary embolism acute August 03, 2024 8:24am History of DVT (deep vein thrombosis) acute September 09 8:43am History of pulmonary embolism acute September 09, 2024 8:43am [facility] Work Phone: 1(885) 396-867210-30-2024 History of Present illness Narrative* Adam Smith NP - 06/22/2024 8:45 AM EDT Images from the original note were not included. Nicol Frances is a 74 y.o. female presents with chief complaint of 6 mos ov (Patient presents for 3 mos ov to review lab. She has a complaint of vaginal itching and burning with possible rash down her leg. ) HPI: HPI I have reviewed and reconciled the history and medication list with the patient today. Here for 3 month OV and review of labs. HISTORIES: PAST MEDICAL HISTORY: Past Medical History: Diagnosis Date Acquired hallux valgus Acquired hammer toe of right foot Carpal tunnel syndrome Cataract Chronic ischemic heart disease (CMS/HCC) Other specified forms Colitis Cough Depression (CMS/HCC) Depressive disorder (CMS/HCC) not elsewhere classified Displacement of lumbar intervertebral disc without myelopathy DVT (deep venous thrombosis) (CMS/HCC) Encounter for current long-term use of 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s Erythema nodosum Essential hypertension, benign (CMS/HCC) Generalized osteoarthrosis unspecified site Hallux hammertoe, left Hallux hammertoe, right Hallux malleus of right foot Hearing loss Hepatitis B Hyperlipidemia, unspecified (CMS/HCC) Obstructive sleep apnea (adult) (pediatric) Orthostatic hypotension Osteoarthritis of knee PE (pulmonary thromboembolism) (CMS/HCC) Primary osteoarthritis of first carpometacarpal joint of right hand Spinal stenosis in cervical region Type II or unspecified type diabetes mellitus with neurological manifestations, uncontrolled(250.62) ([facility]) Ulcerative colitis ([facility]/HCC) Unspecified Ulcerative colitis ([facility]/HCC) Other ulcerative colitis Ulcerative colitis ([facility]/HCC) Vasculitis ([facility]) Venous embolism and thrombosis unspecified deep vessels of lower extremity Vitamin D deficiency, unspecified SURGICAL HISTORY: Past Surgical History: Procedure Laterality Date ANTERIOR CERVICAL DISCECTOMY W/ FUSION 05/2017 C3-4, C4-[address] Maynard. BREAST LUMPECTOMY Left 2012 CARPAL TUNNEL RELEASE 01/17/2016 with removal of a bone CATARACT EXTRACTION 03/2020 CHOLECYSTECTOMY 1986 COLONOSCOPY 2009 Ulcerative colitis COLONOSCOPY 11/2021 w/Dr. Fields COLONOSCOPY W/ BIOPSIES 2012 Ulcerative colitis COLONOSCOPY W/ BIOPSIES 2012 Ulcerative Colitis COLONOSCOPY W/ BIOPSIES 07/05/2016 due to Colitis Hx. COLONOSCOPY W/ POLYPECTOMY 2012 EGD 05/08/[address] Thompson. DX Hiatal Hernia. HERNIA REPAIR 1985 TUBAL LIGATION Bilateral 1977 SOCIAL HISTORY: Social History Tobacco Use Smoking status: Never Passive exposure: Past Smokeless tobacco: Never Substance Use Topics Alcohol use: Never Comment: caffeine: none Drug use: Never Depression: Not at risk (12/03/2023) PHQ-2 PHQ-2 Score: 0 FAMILY HISTORY: Family History Problem Relation Name Age of Onset Diabetes Mother Heart disease Mother Heart disease Father Diabetes Father Breast cancer Sister Heart disease Daughter Diabetes Daughter Cancer Daughter Colon cancer Neg Hx Ovarian cancer Neg Hx MEDICATIONS: Current Outpatient Medications Medication Instructions acetaminophen (TYLENOL EXTRA STRENGTH) 1,000 mg, 2 times daily PRN BD Insulin Syringe U/F 30G X 1/2 0.5 ML misc cholecalciferol (VITAMIN D-3) 1,000 Units, Daily citalopram (CELEXA) 20 mg, Oral, Every morning clobetasol (Temovate) 0.05 % ointment Topical, 2 times daily glucose blood (WonderHilluch Verio) test strip USE TO TEST BLOOD SUGAR THREE TIMES A DAY DIRECTED insulin aspart protamine-insulin aspart (NovoLOG Mix 70-30) (70-30) 100 UNIT/ML injection 12 Units,Subcutaneous, 2 times daily with meals Lancet Devices ([employer]let) lancing device 1 each, 4 times daily Lancets (OneTouch Delica Plus [id number]) [facility] [place] TO [place] BLOOD [place] 3 TIMES DAILY DIRECTED losartan (COZAAR) 50 mg, Oral, Daily mometasone (Elocon) 0.1 % lotion Topical, Daily Multiple Vitamins-Minerals (Ocuvite Adult Formula) capsule as directed Orally Multiple Vitamins-Minerals (PreserVision AREDS) tablet as directed Orally pantoprazole (PROTONIX) 40 mg, Oral, Daily before breakfast rosuvastatin (CRESTOR) 20 mg, Oral, Nightly sulfaSALAzine (Azulfidine) 500 MG tablet TAKE TWO (2) TABLETS BY MOUTH THREE TIMES PER DAY warfarin (COUMADIN) 3 mg, Every other day ALLERGIES: No Known Allergies REVIEW OF SYMPTOMS: Review of Systems Constitutional: Negative for chills, diaphoresis, fatigue and fever. HENT: Negative for ear pain, hearing loss, sinus pressure, sore throat and trouble swallowing. Eyes: Negative for pain and discharge. Respiratory: Negative for cough and shortness of breath. Cardiovascular: Negative for chest pain, palpitations and leg swelling. Gastrointestinal: Negative for abdominal pain, blood in stool, constipation and diarrhea. Genitourinary: Negative for difficulty urinating. Musculoskeletal: Negative for arthralgias and gait problem. Skin: Negative for rash. Neurological: Negative for dizziness, light-headedness and headaches. Psychiatric/Behavioral: Negative for sleep disturbance. PHYSICAL EXAM: Visit Vitals BP 120/74 Pulse 79 Ht 5' 1.5 Wt 178 lb SpO2 99% BMI 33.09 kg/m Smoking Status Never BSA 1.87 m BP Readings from Last 3 Encounters: 06/22/24 120/74 04/29/24 122/74 03/09/24 112/64 Wt Readings from Last 3 Encounters: 06/22/24 178 lb 04/29/24 180 lb 03/09/24 180 lb Physical Exam Constitutional: General: She is not in acute distress. Appearance: Normal appearance. HENT: Head: Normocephalic. Right Ear: There is no impacted cerumen. Left Ear: There is impacted cerumen. Mouth/Throat: Mouth: Mucous membranes are moist. Eyes: Extraocular Movements: Extraocular movements intact. Neck: Vascular: No carotid bruit. Cardiovascular: Rate and Rhythm: Normal rate and regular rhythm. Heart sounds: Normal heart sounds. No murmur heard. Pulmonary: Effort: Pulmonary effort is normal. No respiratory distress. Breath sounds: Normal breath sounds. No wheezing, rhonchi or rales. Abdominal: General: Bowel sounds are normal. Palpations: Abdomen is soft. Tenderness: There is no abdominal tenderness. Genitourinary: Labia: Right: Tenderness present. No rash or lesion. Left: Tenderness present. No rash or lesion. Comments: Bilateral redness and excoriation of labia minora and majora Musculoskeletal: General: Normal range of motion. Cervical back: Normal range of motion. Right lower leg: No edema. Left lower leg: Edema present. Skin: General: Skin is warm and dry. Neurological: Mental Status: She is alert and oriented to person, place, and time. Psychiatric: Mood and Affect: Mood normal. Thought Content: Thought content normal. Judgment: Judgment normal. ASSESSMENT AND PLAN: Assessment/Plan Diagnoses and all orders for this visit: Primary hypertension ([facility]/HCC) - Basic metabolic panel; Future Mixed hyperlipidemia ([facility]) -at goal with lipitor and zetia Obstructive sleep apnea syndrome -wears c-pap Peripheral venous insufficiency -chronic left leg edema from previous DVT Chronic deep vein thrombosis (DVT) of femoral vein of left lower extremity ([facility]) 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 machines and devices Diabetic peripheral neuropathy associated with type 2 diabetes mellitus ([facility]) - Hemoglobin a1c with eag; Future - Basic metabolic panel; Future Gastroesophageal reflux disease without esophagitis -taking protonix Hypercoagulable state ([facility]) -on warfarin for DVT [facility] current use of 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 [facility] current use of insulin ([facility]) -advised to increase insulin to 14 units before lunch and dinner OAB (overactive bladder) -taking oxybutynin Class 1 obesity Pt was instructed on Mediterranean diet. Eat fresh fruits, vegetables, chicken, fish and nuts. Handout given to pt. Avoid processed foods. Eat organic. Limit calories by 500 per day to lose weight for goal BMI < 30. Spinal stenosis of lumbosacral region -denies issues today Ulcerative colitis without complications, unspecified location ([facility]) Need for immunization against influenza - Flu vaccine, trivalent, adjuvanted, preservative free Atrophic vaginitis - clobetasol (Temovate) 0.05 % ointment; Apply topically 2 (two) times a day Dictated, but not read Patient presents today for routine three month office visit and review of chronic problems and labs. Overall she s doing well. A1c did increase slightly to 7.3. She is currently taking 70/30 insulin 12 units twice a day and we will increase that to 14 units twice a day. Her A1c at the last office visit was 6.8. LDL is at goal at 70. She will continue on Statin therapy. Fasting glucose was 126. GFR is satisfactory at 65. Electrolytes and liver function are within normal limits. Urine for micro albumin was done in February and that was normal. Blood pressure is well controlled at 120/74. She is wearing her CPAP for sleep apnea. She does have chronic left lower extremity swelling secondary to history of a DVT. She does take warfarin. The other issue is that she is having some discomfort and dryness in the vaginal area. Appears to be atrophic vaginitis on physical examination. She will try Temovate 0.05 mg twice a day. She s advised to apply a thin layer to the inner vaginal lips twice a day for a week and then she can do that twice a week. She should call me in two weeks so let me know if it s helpful, otherwise she will needto follow up with [facility]. The rest the review systems is negative. She return here in three months for a BMP and also an A1c.Patient agrees with plan. Dr. Herzog was present in office suite today and is supervising patient care and available for consult. I'm following his plan of care for the above problems. Previous notes and plan were reviewed and followed. Adam Smith, MSN, PULP SCREEN OPERATOR-GROUND TRANSPORTATION OPERATOR documented in this encounterPerry County Memorial [id number] History of Present illness Narrative* Radha Verduzco, DO - 04/29/2024 9:00 AM EDT Images from the original note were not included. Nicol Frances 1950 Nicol Frances is a 73 y.o. female presents with chief complaint of Mamms/Lt. axillary US w/exam (Completed in November) HPI: HPI Nicol was being followed with US for an enlarged left axillary LN. She has no breast issues SUBJECTIVE: MEDICATIONS: ALLERGIES Current Outpatient Medications Medication Instructions acetaminophen (TYLENOL EXTRA STRENGTH) 1,000 mg, Oral, 2 times daily PRN BD Insulin Syringe U/F 30G X 1/2 0.5 ML misc cholecalciferol (VITAMIN D-3) 1,000 Units, Oral, Daily citalopram (CELEXA) 20 mg, Oral, Every morning clobetasol (Temovate) 0.05 % ointment Topical, 2 times daily glucose blood (Barcol Air USATouch Verio) test strip USE TO TEST BLOOD SUGAR THREE TIMES A DAY DIRECTED insulin aspart protamine-insulin aspart (NovoLOG Mix 70-30) (70-30) 100 UNIT/ML injection 12 Units,Subcutaneous, 2 times daily with meals Lancet Devices (Autolet) lancing device 1 each, Other, 4 times daily Lancets (N[employer] Delica Plus [id number]) misc USE TO TEST BLOOD SUGAR 3 TIMES DAILY DIRECTED losartan (COZAAR) 50 mg, Oral, Daily mometasone (Elocon) 0.1 % lotion Topical, Daily Multiple Vitamins-Minerals (Ocuvite Adult Formula) capsule as directed Orally Multiple Vitamins-Minerals (PreserVision AREDS) tablet as directed Orally pantoprazole (PROTONIX) 40 mg, Oral, Daily before breakfast rosuvastatin (CRESTOR) 20 mg, Oral, Nightly sulfaSALAzine (Azulfidine) 500 MG tablet TAKE TWO (2) TABLETS BY MOUTH THREE TIMES PER DAY warfarin (COUMADIN) 3 mg, Oral, Every other day, Take 1/2 tablet on Thursday and Sat full tablet restof week No Known Allergies PAST MEDICAL HISTORY: SOCIAL HISTORY SURGICAL HISTORY: Past Medical History: Diagnosis Date Acquired hallux valgus Acquired hammer toe of right foot Carpal tunnel syndrome Cataract Chronic ischemic heart disease ([facility]/HCC) Other specified forms Colitis Cough Depression ([facility]/HCC) Depressive disorder (CMS/HCC) not elsewhere classified Displacement of lumbar intervertebral disc without myelopathy DVT (deep venous thrombosis) ([facility]) Encounter for current long-term use of 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s Erythema nodosum Essential hypertension, benign ([facility]/HCC) Generalized osteoarthrosis unspecified site Hallux hammertoe, left Hallux hammertoe, right Hallux malleus of right foot Hearing loss Hepatitis B Hyperlipidemia, unspecified (CMS/HCC) Obstructive sleep apnea (adult) (pediatric) Orthostatic hypotension Osteoarthritis of knee PE (pulmonary thromboembolism) (CMS/HCC) Primary osteoarthritis of first carpometacarpal joint of right hand Spinal stenosis in cervical region Type II or unspecified type diabetes mellitus with neurological manifestations, uncontrolled(250.62) (CMS/HCC) Ulcerative colitis (CMS/HCC) Unspecified Ulcerative colitis (CMS/HCC) Other ulcerative colitis Ulcerative colitis (CMS/HCC) Vasculitis (CMS/HCC) Venous embolism and thrombosis unspecified deep vessels of lower extremity Vitamin D deficiency, unspecified Social History Tobacco Use Smoking status: Never Passive exposure: Past Smokeless tobacco: Never Substance Use Topics Alcohol use: Never Comment: caffeine: none Drug use: Never Past Surgical History: Procedure Laterality Date ANTERIOR CERVICAL DISCECTOMY W/ FUSION 05/2017 C3-4, C4-[address] Maynard. BREAST LUMPECTOMY Left 2012 CARPAL TUNNEL RELEASE 01/17/2016 with removal of a bone CATARACT EXTRACTION 03/2020 CHOLECYSTECTOMY 1986 COLONOSCOPY 2009 Ulcerative colitis COLONOSCOPY 11/2021 w/Dr. Fields COLONOSCOPY W/ BIOPSIES 2012 Ulcerative colitis COLONOSCOPY W/ BIOPSIES 2012 Ulcerative Colitis COLONOSCOPY W/ BIOPSIES 07/05/2016 due to Colitis Hx. COLONOSCOPY W/ POLYPECTOMY 2012 EGD 05/08/[address] Thompson. DX Hiatal Hernia. HERNIA REPAIR 1985 TUBAL LIGATION Bilateral 1977 FAMILY HISTORY Family History Problem Relation Name Age of Onset Diabetes Mother Heart disease Mother Heart disease Father Diabetes Father Breast cancer Sister Heart disease Daughter Diabetes Daughter Cancer Daughter Colon cancer Neg Hx Ovarian cancer Neg Hx REVIEW OF SYMPTOMS: Review of Systems Constitutional: Negative for diaphoresis and unexpected weight change. HENT: Negative for hearing loss, tinnitus and voice change. Respiratory: Negative for shortness of breath. Cardiovascular: Negative for chest pain and palpitations. Musculoskeletal: Negative for arthralgias. Neurological: Negative for dizziness, seizures and headaches. Psychiatric/Behavioral: The patient is nervous/anxious. Depression & Anxiety All other systems reviewed and are negative. Hematological: Negative for adenopathy. Does not bruise/bleed easily. OBJECTIVE: Visit Vitals BP 122/74 Ht 5' 1.5 Wt 180 lb BMI 33.46 kg/m Smoking Status Never BSA 1.88 m Physical Exam Vitals reviewed. Exam conducted with a director of intelligence present. HENT: Head: Normocephalic. Eyes: Pupils: Pupils are equal, round, and reactive to light. Cardiovascular: Rate and Rhythm: Normal rate and regular rhythm. Pulmonary: Effort: Pulmonary effort is normal. Chest: Comments: Bilateral supraclavicular, infraclavicular and right axillary lymph nodes were normal. Inthe left axilla she has a firm mobile smooth mass about 2 cm in diameter, Each breast was examined in the sitting and supine position. There was no evidence of abnormal masses, skin dimpling or nipple discharge in the right breast. In the left breast at the 2:00 position about 8 cm from the NAC is a small 1 cm mobile nodule in the area of an old surgical scar. Abdominal: General: Bowel sounds are normal. Palpations: Abdomen is soft. Musculoskeletal: General: Normal range of motion. Skin: General: Skin is warm. Neurological: General: No focal deficit present. Mental Status: She is alert. ASSESSMENT AND PLAN: Assessment/Plan Problem List Items Addressed This Visit Axillary lymphadenopathy - Primary Nicol's last bilateral mamm and Lt axillary us was done on 12/07/23 and it showed - NO MAMMOGRAPHIC OR MAMMOGRAPHIC EVIDENCE OF MALIGNANCY. BENIGN-APPEARING LYMPH NODES ARE NOTED IN THE REGION OF PALPABLE ABNORMALITY IN THE LEFT ADNEXA SHOWING NO SIGNIFICANT INTERVAL CHANGE. She is doing well, apparently she had to cancel and reschedule several appointments with me, explaining why there is such a gap from the time of the imaging to now. Her bilateral mamm's are due in November, I'll repeat imaging of the left axilla and see her at that time for exam. If all remains unchanged, she will resume yearly evaluations. documented in this encounterPerry County Memorial [id number] History of Present illness Narrative* Marlon Branham DPM - 04/27/2024 8:15 AM EDT Images from the original note were not included. HPI: Diabetic/Routine Nail Care: Pt present in office today for diabetic nail care. Location: nails on bilateral feet. Severity of symptoms mild. Onset gradual. Status: no change. Context: hard to trim, hard to reach. NAILS: thickened, discolored, pain. Relieved by: debridement, filing down nails, clipping nails. History of ulcers/wounds: no. Recent BS reading, if diabetic: 146. PCP: Dr. Herzog. Date of Last visit: 02/16/24 Aggravated by: shoe gear, pressure. Risk factors: diabetes. Examination: General Examination: GENERAL EXAMINATION: alert, well hydrated, in no distress , awake, aware of surroundings. FOOT EXAM: Date of Last Foot Exam 04/27/24 Diabetic Shoe & Insert: Previous amputation of the other foot, or part of the footNo. History of previous foot ulceration of foot Yes. History of pre-ulcerative callous of foot:Yes. Peripheral of Neuropathy with evidence of callous formation:Yes. Foot deformity Yes- hammertoe deformities 2-5 bilateral. Poor circulation:Yes- decreased pulses bilateral foot. Patient's DM shoes with inserts fit well to her feet without any areas of rubbing or pain. Vascular: DORSALIS PEDIS PULSE:2/4, bilaterally. POSTERIOR TIBIAL PULSE:0/4, bilaterally. TEMPERATURE GRADIENT:warm to cool. EDEMA:minimal, bilateral ankle, severe edema and varicosities noted to the left leg. INSPECTION:mild erythema over the right 1st MPJ. VARICOSITIES: present, bilateral LE. CAPILLARY FILLING TIME(sec):less than 3 seconds, bilateral. Neurologic: VIBRATORY:abnormal. SEMMES-JOHN 5.07 MONOFILAMENTabnormal, bilateral. Dermatologic: SKIN FINDINGS:Small nevus plantar lateral aspect of the left hallux, 0.2 cm in diameter. Evidence of petechiae and dermatitis along the dorsal aspect of the bilateral foot. Patient has been experiencing some itching and discoloration in this area. HYPERKERATOSIS:Location: distal aspect of the left 2nd, 3rd digit, distal medial right hallux, sub 1st MPJ left NAIL PATHOLOGY:digits 1-5 bilateral are intact. SKIN PATHOLOGY:thin, shiny, atrophic, decreased hair growth, pigment discoloration changes, varicosities bilateral lower extremity left > right. Nail Pathology: Left Foot: 1 (great toe)Long, Thick, Crumbly, Deformed, Discolored, Brittle, Dystrophic, subungal hematoma noted to the proximal aspect of the nail, no pain to the area. 2Long, Thick, Crumbly, Deformed, Discolored, Brittle, Dystrophic. 3Long, Thick, Crumbly, Deformed, Discolored, Brittle, Dystrophic. 4Long, Thick, Crumbly, Deformed, Discolored, Brittle, Dystrophic. 5Long, Thick, Crumbly, Deformed, Discolored, Brittle, Dystrophic. Nail Pathology: Right Foot: 1 (great toe)Long, Thick, Crumbly, Deformed, Discolored, Brittle, Dystrophic. 2Long, Thick, Crumbly, Deformed, Discolored, Brittle, Dystrophic. 3Long, Thick, Crumbly, Deformed, Discolored, Brittle, Dystrophic. 4Long, Thick, Crumbly, Deformed, Discolored, Brittle, Dystrophic. 5Long, Thick, Crumbly, Deformed, Discolored, Brittle, Dystrophic. Ankle / Foot: MUSCLE STRENGTH:4/5. Orthopedic: DEFORMITIES:Hammer toe deformities 2-5 bilateral, dorsal dislocation hallux bilateral, plantar fat pad atrophy, hav deformity left, delta phalanx with lateral deviation of the right hallux IPJ PAIN ELICITED WITH PALPATION OF: overlying the callous formation left 3rd digit Modifier: -Q8. Assessment: 1. Dermatophytosis of nail - B35.1 (Primary) 2. Foot pain, left - M79.672 3. Foot pain, right - M79.671 4. Venous insufficiency - I87.2 5. Generalized edema - R60.1 6. Hammertoe, left - M20.42 7. Corns and callosities - L84 9. 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 Nails were debrided in length and thickness by manual and mechanical means. 2. Advised patient on continued proper diabetic foot care including daily monitoring of their feet for any new complaints or concerns that may arise. 3. Discussed importance of tight blood sugar control to prevent future complications. 4. RTC: 9-12 weeks or as needed if problems arise. Callous: 1. Hyperkeratosis/porokeratosis as above noted was debrided. 2. Instructed patient on use of aperture pads or Silipos padding/toe spacers to prevent rubbing andcontinued development of the hyperkeratosis. 3. Also discussed use of moisturizing creams for overall increased hydration to the skin. 4. Discussed continued use of proper foot gear to avoid excess pressure over the callous site. documented in this encounterPerry County Memorial [id number] Evaluation note* Diagnosis Onset Date Resolution Status Admit Date History of DVT (deep vein thrombosis) acute April 14 8:37am History of pulmonary embolism acute April 14, 2024 8:37am History of DVT (deep vein thrombosis) acute May 09, 2024 8:15am History of pulmonary embolism acute May 09, 2024 8:15am History of DVT (deep vein thrombosis) acute June 06 8:27am History of pulmonary embolism acute June 06, 2024 8:27am Crohn's colitis acute June 29, 2024 10:28am Internal hemorrhoids acute Nov mb 2023 10:28am History of DVT (deep vein thrombosis) acute July 04, 024 8:29am History of pulmonary embolism acute July 04, 2024 8:29am [facility] Work Phone: 1(457) 793-166805-06-2024 [facility] History and physical note Author Sandy Clark [facility] December 28, 2023 8:33am Note Date/Time December 28, 2023 8:33am [facility] [address] [place] [address] Gastroenterology H&P Signed Patient: Nicol Frances MR#: [id number] : 1950 Acct:[id number] Age/Sex: 73 / F Adm Date: 4 Loc: Room: Type: [facility] Attending Dr: Sandy Clark DO Copies to: Sandy Clark, DO Kristopher Herzog DO~ Date of Service: 12/28/2023 HISTORY & PHYSICAL: Patient's history with special attention to the cardiovascular, pulmonary systems and the current problem was reviewed with the patient immediately prior to the procedure. Present medications and doses reviewed in the EMR. Allergies and pertinent laboratory tests were also reviewedat this time in the EMR. The physical examination, as below, was then performed. Indication, assessment and HPI: Patient is a 73-year-old female who presents forrepeat colonoscopy for history of ulcerative colitis on sulfasalazine and rectalbleeding. Last colonoscopy was in 2021 Family history of GI malignancy? No PHYSICAL EXAMINATION General appearance: cooperative, NAD Skin: No jaundice, no rash or lesions Head: NCAT Eyes: Anicteric Neck: Supple Lungs: Normal respiratory effort, no use of accessory muscles Abdomen: Soft, nondistended Neuro: No focal deficits, Ox3. REVIEW OF SYSTEMS Constitutional: Denies malaise, fevers Cardiovascular: Denies chest pain, palpitations Respiratory: Denies shortness of breath, wheezing Gastrointestinal: As per HPI Genitourinary: Denies dysuria, polyuria Musculoskeletal: Denies joint swelling, joint stiffness Neurological: Denies confusion, numbness, tingling Endocrine: Denies fatigue Written informed consent obtained from the patient. Risks (including but not limited to perforation, infection, bloating, bleeding, need for emergent surgeryand loss of life), benefits and alternatives explained and questions answered. The patient verbalized understanding. Based on history patient is an appropriate candidate for the procedure. Sandy Clark DO Documented By: Sandy Clark DO 12/28/23832 Signed By: <Electronically signed by Sandy Clark DO> 12/28/23832 [facility] Work Phone: 1([phone]) 947-279305-06-2024 [facility] Evaluation note* Encounter Date Diagnosis Assessment Notes Treatment Notes Treatment Clinical Notes Sep, Medication monitoring encounter (ICD-10 - Z51.81) Referring Provider: Darius Herzog Diagnosis: DVT/PE (1997, 2001) INR Goal: 2-3 INR: 2.6 Warfarin Tablet Size: 3mg Thursday: 3mg Thursday: 3mg Thursday: 1.5mg Thursday: 3mg : 3mg Thursday: 3mg Thursday: 1.5mg Total Weekly Dose: 18mg Continue plan above. Follow-up in 5 weeks. Patient prefers appointments Mondays, Tuesdays, or Wednesdays. Seen by Genie Escobedo PharmD [facility] Other 02-05-2024 Telephone encounter Note* Telephone Encounter - Ruddy Cisneros - 09/28/2023 9:48 AM EST Patient is scheduled. [facility] [id number] Miscellaneous Notes* Telephone Encounter - Ruddy Cisneros - 09/28/2023 9:48 AM EST Patient is scheduled. * Telephone Encounter - Kimberly Berger LPN - 09/25/2023 10:23 AM EST Pt called and lvm that she was sorry she missed our call and for someone to give her a call back please and thank you! * Telephone Encounter - Ruddy Cisneros - 09/25/2023 9:55 AM EST Called patient to schedule appt to obtain shoes. Unable to LVM due to voicemail not set up. * Telephone Encounter - Kimberly Berger LPN - 09/24/2023 4:43 PM EST Can someone please call pt and schedule her an appointment to machine pecan picker her shoes that arrived. Thankyou! documented in this encounterPerry County Memorial HospitalYjbrvnjhme90-17-1722 Telephone encounter Note* Telephone Encounter - Kimberly Berger LPN - 09/25/2023 10:23 AM EST Pt called and lvm that she was sorry she missed our call and for someone to give her a call back please and thank you! [facility] [id number] Telephone encounter Note* Telephone Encounter - Ruddy Cisneros - 09/25/2023 9:55 AM EST Called patient to schedule appt to obtain shoes. Unable to LVM due to voicemail not set up. [id number] Telephone encounter Note* Telephone Encounter - Kimberly Berger LPN - 09/24/2023 4:43 PM EST Can someone please call pt and schedule her an appointment to machine pecan picker her shoes that arrived. Thankyou! [facility] WestTocobzygrw21-04-9299 Evaluation note* Encounter Date Diagnosis Assessment Notes Treatment Notes Treatment Clinical Notes Aug, Medication monitoring encounter (ICD-10 - Z51.81) Referring Provider: Darius Herzog Diagnosis: DVT/PE (2001) INR Goal: 2-3 INR: 2.6 Warfarin Tablet Size: 3mg Thursday: 3mg Thursday: 3mg Thursday: 1.5mg Thursday: 3mg : 3mg Thursday: 3mg Thursday: 1.5mg Total Weekly Dose: 18mg Continue plan above. Follow-up in 4 weeks. Patient prefers appointments Mondays, Tuesdays, or Wednesdays. Seen by Samantha Echavarria, Trina Candidate/Tita Roberts PharmD [facility] Other 12-19-2023 Evaluation note* Encounter Date Diagnosis Assessment Notes Treatment Notes Treatment Clinical Notes Jul, Medication monitoring encounter (ICD-10 - Z51.81) Referring Provider: Darius Herzog Diagnosis: DVT/PE (2001) INR Goal: 2-3 INR: 2.4 Warfarin Tablet Size: 3mg Thursday: 3mg Thursday: 3mg Thursday: 1.5mg Thursday: 3mg : 3mg Thursday: 3mg Thursday: 1.5mg Total Weekly Dose: 18mg Continue plan above. Follow-up in 4 weeks. Patient prefers appointments Mondays, Tuesdays, or Wednesdays. Seen by Tita Roberts PharmD [facility] Other 11-21-2023 Evaluation note* Encounter Date Diagnosis Assessment Notes Treatment Notes Treatment Clinical Notes Jun, Medication monitoring encounter (ICD-10 - Z51.81) Referring Provider: Darius Herzog Diagnosis: DVT/PE (1997, 2001) INR Goal: 2-3 INR: 2.4 Warfarin Tablet Size: 3mg Thursday: 3mg Thursday: 3mg Thursday: 1.5mg Thursday: 3mg : 3mg Thursday: 3mg Thursday: 1.5mg Total Weekly Dose: 18mg Continue plan above. Follow-up in 4 weeks. Patient reports eating more vitamin k the past couple weeks. No detrimental effect to INR levels today. Counseled patient on importance of consistent vitamin k intake. Patient prefers appointments Mondays, Tuesdays, or Wednesdays. Seen by Rose Marie Quispe PharmD Candidate/Tita Roberts PharmD [facility] Other 10-23-2023 Evaluation note* Encounter Date Diagnosis Assessment Notes Treatment Notes Treatment Clinical Notes May, Medication monitoring encounter (ICD-10 - Z51.81) Referring Provider: Darius Herzog Diagnosis: DVT/PE (1997, 2001) INR Goal: 2-3 INR: 2.8 Warfarin Tablet Size: 3mg Thursday: 3mg Thursday: 3mg Thursday: 1.5mg Thursday: 3mg : 3mg Thursday: 3mg Thursday: 1.5mg Total Weekly Dose: 18mg Continue plan above. Follow-up in 3 weeks per patient preference to cordinate appointments with Gayle Urban, who brings patient to appointments. Seen by Tita Roberts PharmD [facility] Other 09-07-2023 Evaluation note* Encounter Date Diagnosis Assessment Notes Treatment Notes Treatment Clinical Notes Apr, Medication monitoring encounter (ICD-10 - Z51.81) Referring Provider: Darius Herzog Diagnosis: DVT/PE (1997, 2001) INR Goal: 2-3 INR: 2.6 Warfarin Tablet Size: 3mg Thursday: 3mg Thursday: 3mg Thursday: 1.5mg Thursday: 3mg : 3mg Thursday: 3mg Thursday: 1.5mg Total Weekly Dose: 18mg Continue plan above. Follow-up in 3 weeks per patient preference. Seen by Rachel Alonso PharmD [facility] Other 08-16-2023 Evaluation note* Encounter Date Diagnosis Assessment Notes Treatment Notes Treatment Clinical Notes Mar, Medication monitoring encounter (ICD-10 - Z51.81) Referring Provider: Darius Herzog Diagnosis: DVT/PE (1997, 2001) INR Goal: 2-3 INR: 3.1 Warfarin Tablet Size: 3mg Thursday: 3mg Thursday: 3mg Thursday: 1.5mg Thursday: 3mg : 3mg Thursday: 3mg Thursday: 1.5mg Total Weekly Dose: 18mg Continue plan above. Follow-up in 3 weeks per patient preference. Patient denies changes in medications or diet. Patient reports following dosing instructions as above. [facility] Other 07-31-2023 Evaluation note* Encounter Date Diagnosis Assessment Notes Treatment Notes Treatment Clinical Notes Feb, Medication monitoring encounter (ICD-10 - Z51.81) Referring Provider: Darius Herzog Diagnosis: DVT/PE (2001) INR Goal: 2-3 INR: 2.3 Warfarin Tablet Size: 3mg Thursday: 3mg Thursday: 3mg Thursday: 1.5mg Thursday: 3mg : 3mg Thursday: 3mg Thursday: 1.5mg Total Weekly Dose: 18mg Continue plan above. Follow-up in 3 weeks. Patient denies missed doses, changes in medications or diet. [facility]Edge[facility] Other 07-19-2023 Evaluation note* Encounter Date Diagnosis Assessment Notes Treatment Notes Treatment Clinical Notes Feb, Medication monitoring encounter (ICD-10 - Z51.81) Referring Provider: Darius Herzog Diagnosis: DVT/PE (1997, 2001) INR Goal: 2-3 INR: 3.2 Warfarin Tablet Size: 3mg Regino: 3mg Thursday: 3mg Thursday: 1.5mg Thursday: 3mg : 3mg Thursday: 3mg Thursday: 1.5mg Total Weekly Dose: 18mg Reduce to 1.5mg today, then begin new plan above, an 8% decrease. Follow-up in 2 weeks. Unable to determine the cause of the elevated INR. Patient denies changes in medications or diet. Seen by Anny Qureshi,[facility] Other 07-03-2023 Evaluation note* Encounter Date Diagnosis Assessment Notes Treatment Notes Treatment Clinical Notes Feb, Medication monitoring encounter (ICD-10 - Z51.81) Referring Provider: Darius Herzog Diagnosis: DVT/PE (1997, 2001) INR Goal: 2-3 INR: 3.4 Warfarin Tablet Size: 3mg Thursday: 3mg Thursday: 3mg Thursday: 1.5mg Thursday: 3mg : 3mg Thursday: 3mg Thursday: 3mg Total Weekly Dose: 19.5mg Reduce to 1.5mg today, then continue current plan. Follow-up in 2 weeks. Unable to determine the cause of the subtherapeutic INR. Patient denies missed doses and changes in medications or diet. Seen by Anny Qureshi,[facility] Other 04-19-2023 Evaluation note* Encounter Date Diagnosis Assessment Notes Treatment Notes Treatment Clinical Notes Nov, Medication monitoring encounter (ICD-10 - Z51.81) Referring Provider: Darius Herzog Diagnosis: DVT/PE (1997, 2001) INR Goal: 2-3 INR: 2.5 Warfarin Tablet Size: 3mg Thursday: 3mg Thursday: 3mg Thursday: 1.5mg Thursday: 3mg : 3mg Thursday: 3mg Thursday: 3mg Total Weekly Dose: 19.5mg Continue current plan. Follow-up in 4 weeks. Seen by Anny Qureshi, [facility] Other 03-22-2023 Evaluation note* Encounter Date Diagnosis Assessment Notes Treatment Notes Treatment Clinical Notes Oct, Medication monitoring encounter (ICD-10 - Z51.81) Referring Provider: Darius Herzog Diagnosis: DVT/PE (1997, 2001) INR Goal: 2-3 INR: 2.7 Warfarin Tablet Size: 3mg Regino: 3mg Howard: 3mg Thursday: 1.5mg Thursday: 3mg : 3mg Thursday: 3mg Thursday: 3mg Total Weekly Dose: 19.5mg Continue current plan. Follow-up in 4 weeks. Seen by Anny Qureshi, [facility] Other 02-22-2023 Evaluation note* Encounter Date Diagnosis Assessment Notes Treatment Notes Treatment Clinical Notes Sep, Medication monitoring encounter (ICD-10 - Z51.81) Referring Provider: Darius Herzog Diagnosis: DVT/PE (1997, 2001) INR Goal: 2-3 INR: 2.7 Warfarin Tablet Size: 3mg Thursday: 3mg Thursday: 3mg Thursday: 1.5mg Thursday: 3mg : 3mg Thursday: 3mg Thursday: 3mg Total Weekly Dose: 19.5mg Continue current plan. Follow-up in 4 weeks. Seen by Anny Qureshi, [facility] Other 01-25-2023 Evaluation note* Encounter Date Diagnosis Assessment Notes Treatment Notes Treatment Clinical Notes Aug, Medication monitoring encounter (ICD-10 - Z51.81) Referring Provider: Darius Herzog Diagnosis: DVT/PE (1997, 2001) INR Goal: 2-3 INR: 3.2 Warfarin Tablet Size: 3mg Thursday: 3mg Thursday: 3mg Thursday: 1.5mg Thursday: 3mg : 3mg Thursday: 3mg Thursday: 3mg Total Weekly Dose: 19.5mg Reduce to 1.5mg today, then continue current plan. Follow-up in 4 weeks. Seen by Anny Qureshi, [facility] [employer] Other 12-28-2022 Evaluation note* Encounter Date Diagnosis Assessment Notes Treatment Notes Treatment Clinical Notes Jul, Medication monitoring encounter (ICD-10 - Z51.81) Referring Provider: Darius Herzog Diagnosis: DVT/PE (1997, 2001) INR Goal: 2-3 INR: 2.5 Warfarin Tablet Size: 3mg Regino: 3mg Thursday: 3mg Thursday: 1.5mg Thursday: 3mg : 3mg Thursday: 3mg Thursday: 3mg Total Weekly Dose: 19.5mg Continue current plan. Follow-up in 4 weeks. Patient reports taking a methylprednisolone doespak since last visit. Discussed the importance of contacting the coumadin clinic with any medication changes so adjustments in warfarin doses can be made if necessary. Seen by Anny Qureshi, [facility] [employer] Other 12-01-2022 Evaluation note* Encounter Date Diagnosis Assessment Notes Treatment Notes Treatment Clinical Notes Jul, Medication monitoring encounter (ICD-10 - Z51.81) Referring Provider: Darius Herzog Diagnosis: DVT/PE (1997, 2001) INR Goal: 2-3 INR: 3.5 Warfarin Tablet Size: 3mg Thursday: 3mg Thursday: 3mg Thursday: 1.5mg Thursday: 3mg : 3mg Thursday: 3mg Thursday: 3mg Total Weekly Dose: 19.5mg Hold today, then continue current plan. Follow-up in 4 weeks per patient preference. Unknown cause of high INR. Seen by Olu Rene PharmD [facility] [employer] Other 11-03-2022 Evaluation note* Encounter Date Diagnosis Assessment Notes Treatment Notes Treatment Clinical Notes Jun, Medication monitoring encounter (ICD-10 - Z51.81) Referring Provider: Darius Herzog Diagnosis: DVT/PE (2001) INR Goal: 2-3 INR: 1.7 Warfarin Tablet Size: 3mg Thursday: 3mg Thursday: 3mg Thursday: 1.5mg Thursday: 3mg : 3mg Thursday: 3mg Thursday: 3mg Total Weekly Dose: 19.5mg Boost additional 1.5mg today 06/26, then continue current plan. Follow-up in 3 weeks. Patient missed her warfarin dose on Thursday. Advised patient to call office if she misses a dose and we can advise her. Seen by Lauren Vance, [facility] [employer] Other 10-13-2022 Evaluation note* Encounter Date Diagnosis Assessment Notes Treatment Notes Treatment Clinical Notes May, Medication monitoring encounter (ICD-10 - Z51.81) Referring Provider: Darius Herzog Diagnosis: DVT/PE (1997, 2001) INR Goal: 2-3 INR: 2.6 Warfarin Tablet Size: 3mg Thursday: 3mg Thursday: 3mg Thursday: 1.5mg Thursday: 3mg : 3mg Thursday: 3mg Thursday: 3mg Total Weekly Dose: 19.5mg Continue current plan. Follow-up in 3 weeks. Patient had procedure last week, bridged with Lovenox, will discontinue Lovenox at this time. [facility]. Seen by Olu Rene PharmD [employer] Other 09-29-2022 Evaluation note* Encounter Date Diagnosis Assessment Notes Treatment Notes Treatment Clinical Notes Apr, Medication monitoring encounter (ICD-10 - Z51.81) Referring Provider: Darius Herzog Diagnosis: DVT/PE (1997, 2001) INR Goal: 2-3 INR: 2.1 Warfarin Tablet Size: 3mg Thursday: 3mg Thursday: 3mg Thursday: 1.5mg Thursday: 3mg : 3mg Thursday: 3mg Thursday: 3mg Total Weekly Dose: 19.5mg Continue current plan. Follow-up in 2 weeks post-procedure. Patient provided with instructions at appointment today, see documents and telephone encounter for more details. Seen by Olu Rene PharmD [employer] [facility] Other 09-13-2022 Evaluation note* Encounter Date Diagnosis Assessment Notes Treatment Notes Treatment Clinical Notes Apr, Medication monitoring encounter (ICD-10 - Z51.81) Referring Provider: Darius Herzog Diagnosis: DVT/PE (2001) INR Goal: 2-3 INR: 1.5 Warfarin Tablet Size: 3mg Thursday: 3mg Thursday: 3mg Thursday: 1.5mg Thursday: 3mg : 3mg Thursday: 3mg Thursday: 3mg Total Weekly Dose: 19.5mg Boost to 4.5mg today, then begin new plan above, an 8% increase. Follow-up in 3 weeks per patient preference. Patient admits to missing dose of warfarin this past 05/01, which is likely contributing to subtherapeutic INR today. However, patient still a candidate for dose increase per last INR reading, will increase dose as above. Seen by Tk Mora PharmD [employer] [facility] Other 08-16-2022 Evaluation note* Encounter Date Diagnosis Assessment Notes Treatment Notes Treatment Clinical Notes Mar, Medication monitoring encounter (ICD-10 - Z51.81) Referring Provider: Darius Herzog Diagnosis: DVT/PE (1997, 2001) INR Goal: 2-3 INR: 1.8 Tablet Size: 3mg Regino: 3mg Thursday: 3mg Thursday: 1.5mg Thursday: 3mg : 3mg Thursday: 3mg Thursday: 1.5mg Total Weekly Dose: 18mg Boost to 3mg today 04/08/22. Then continue above plan. Follow up in 4 weeks. Could not determine cause of low INR reading today. Patient presents to clinic with her Grandson. Seen by Jennifer Amezcua LPN [facility] Other 07-21-2022 Evaluation note* Encounter Date Diagnosis Assessment Notes Treatment Notes Treatment Clinical Notes Feb, Medication monitoring encounter (ICD-10 - Z51.81) Referring Provider: Darius Herzog Diagnosis: DVT/PE (1997, 2001) INR Goal: 2-3 INR: 2.3 Tablet Size: 3mg Thursday: 3mg Thursday: 3mg Thursday: 1.5mg Thursday: 3mg : 3mg Thursday: 3mg Thursday: 1.5mg Total Weekly Dose: 18mg Continue above plan. Follow up in 2 weeks. Please coordinate with 's appointment. Seen by Tameka Churchill RN [place] [facility] [employer] Other 07-07-2022 Evaluation note* Encounter Date Diagnosis Assessment Notes Treatment Notes Treatment Clinical Notes Feb, Medication monitoring encounter (ICD-10 - Z51.81) Referring Provider: Darius Herzog Diagnosis: DVT/PE (1997, 2001) INR Goal: 2-3 INR: 2.3 Tablet Size: 3mg Thursday: 3mg Thursday: 3mg Thursday: 1.5mg Thursday: 3mg : 3mg Thursday: 3mg Thursday: 1.5mg Total Weekly Dose: 18mg Continue above plan. Follow up in 2 weeks. Please coordinate with 's appointment. Seen by Olu Rene PharmD [facility] Other 06-27-2022 Evaluation note* Encounter Date Diagnosis Assessment Notes Treatment Notes Treatment Clinical Notes Jan, Medication monitoring encounter (ICD-10 - Z51.81) Referring Provider: Darius Herzog Diagnosis: DVT/PE (2001) INR Goal: 2-3 INR: 2.0 Tablet Size: 3mg Thursday: 3mg Thursday: 3mg Thursday: 1.5mg Thursday: 3mg : 3mg Thursday: 3mg Thursday: 1.5mg Total Weekly Dose: 18mg Continue above plan. Follow up in 2 weeks. Please coordinate with 's appointment. 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) [employer] [facility] Other 06-07-2022 Evaluation note* Encounter Date Diagnosis Assessment Notes Treatment Notes Treatment Clinical Notes Jan, Diarrhea (ICD-10 - R19.7) Jan, Colitis (ICD-10 - K52.9) CONTINUE SULFASALAZINE 500 MG 2 TABLETS THREE TIMES A DAY RTO 6 MONTHS Jan, Rectal bleeding (ICD-10 - K62.5) [facility] Other 05-31-2022 Evaluation note* Encounter Date Diagnosis Assessment Notes Treatment Notes Treatment Clinical Notes December, Medication monitoring encounter (ICD-10 - Z51.81) Referring Provider: Darius Herzog Diagnosis: DVT/PE (2001) INR Goal: 2-3 INR: 3.3 Tablet Size: 3mg Thursday: 3mg Thursday: 3mg Thursday: 1.5mg Thursday: 3mg : 3mg Thursday: 3mg Thursday: 1.5mg Total Weekly Dose: 18mg Hold warfarin today Thursday the continue above plan. Follow up in 2 weeks. See calendar. Please coordinate with 's appointment. Seen by Tameka Churchill RN [facility] [facility] Other 05-16-2022 Evaluation note* Encounter Date Diagnosis Assessment Notes Treatment Notes Treatment Clinical Notes 16 May, 2022 Medication monitoring encounter (ICD-10 - Z51.81) Referring Provider: Darius Herzog Diagnosis: DVT/PE (1997, 2001) INR Goal: 2-3 INR: 1.4 Tablet Size: 3mg Thursday: 3mg Thursday: 3mg Thursday: 1.5mg Thursday: 3mg : 3mg Thursday: 3mg Thursday: 1.5mg Total Weekly Dose: 18mg Boost an additional 1.5mg today 01/06/22, then begin new plan a 9% increase. Follow up in 2 weeks. No reason found for low INR. See calendar. Please coordinate with 's appointment. Seen by Marita Luo LPN [facility] Other 05-02-2022 Evaluation note* Encounter Date Diagnosis Assessment Notes Treatment Notes Treatment Clinical Notes December, Medication monitoring encounter (ICD-10 - Z51.81) Referring Provider: Draius Herzog Diagnosis: DVT/PE (2001) INR Goal: 2-3 INR: 1.7 Tablet Size: 3mg Thursday: 3mg Thursday: 3mg Thursday: 1.5mg Thursday: 3mg : 1.5mg Thursday: 3mg Thursday: 1.5mg Total Weekly Dose: 16.5mg Boost additional 1.5mg today, Saturday 12/23 and then begin new plan, a 9% increase. Follow up in 2 weeks. INR is low due to patient taking 1/2 tab on Thursday as discussed at appt due to starting sulfasalazine 500mg three times a day for cholitis which may increase INR. See calendar. Please coordinate with 's appointment. Seen by Tameka Churchill RN [facility] [facility] Other 04-20-2022 Evaluation note* Encounter Date Diagnosis Assessment Notes Treatment Notes Treatment Clinical Notes Nov, Medication monitoring encounter (ICD-10 - Z51.81) Referring Provider: Darius Herzog Diagnosis: DVT/PE (1997, 2001) INR Goal: 2-3 INR: 2.9 Tablet Size: 3mg Thursday: 3mg Thursday: 3mg Thursday: 1.5mg Thursday: 3mg : 1.5mg Thursday: 3mg Saturday: 1.5mg Total Weekly Dose: 16.5mg Continue above plan. Follow up in 2 weeks. INR may be elevated due to starting sulfasalazine 500mg three times a day for cholitis in conjunction with warfarin increase of 5%. Per [employer], this may increase INR. Patient has been holding vitamin K rich foods and will resume. Seen by Tameka Churchill RN [facility] [facility] Other 04-07-2022 Evaluation note* Encounter Date Diagnosis Assessment Notes Treatment Notes Treatment Clinical Notes Nov, Diarrhea (ICD-10 - R19.7) Nov, Rectal bleeding (ICD-10 - K62.5) Nov, Colitis (ICD-10 - K52.9) [facility] [facility] Other 04-06-2022 Evaluation note* Encounter Date Diagnosis Assessment Notes Treatment Notes Treatment Clinical Notes Nov, Medication monitoring encounter (ICD-10 - Z51.81) Referring Provider: Daruis Herzog Diagnosis: DVT/PE (2001) INR Goal: 2-3 INR: 1.7 Tablet Size: 3mg Thursday: 3mg Thursday: 3mg Thursday: 1.5mg Thursday: 3mg : 1.5mg Thursday: 3mg Thursday: 1.5mg Total Weekly Dose: 16.5mg Boost additional 1.5mg today, Monday 11/27 and then begin new plan, a 5% increase. Follow up in 2 weeks. Patient was recently discharged from hospital for having diarrhea for 1 month. Patient states this is showing improvement. Seen by Tameka Churchill RN [employer] [facility] Other 03-22-2022 Evaluation note* Encounter Date Diagnosis Assessment Notes Treatment Notes Treatment Clinical Notes Oct, Medication monitoring encounter (ICD-10 - Z51.81) Referring Provider: Darius Herzog Diagnosis: DVT/PE (2001) INR Goal: 2-3 INR: 1.9 Tablet Size: 3mg Regino: 1.5mg Thursday: 3mg Thursday: 1.5mg Thursday: 3mg : 1.5mg Thursday: 3mg Thursday: 1.5mg Total Weekly Dose: 15mg Boost additional 1.5mg today, 11/12, then continue above plan. Follow up in 2 weeks. Seen by Tameka Churchill RN [employer] [facility] Other 03-10-2022 Evaluation note* Encounter Date Diagnosis Assessment Notes Treatment Notes Treatment Clinical Notes Oct, Medication monitoring encounter (ICD-10 - Z51.81) Referring Provider: Darius Herzog Diagnosis: DVT/PE (1997, 2001) INR Goal: 2-3 INR: 2.1 Tablet Size: 3mg Thursday: 1.5mg Thursday: 3mg Thursday: 1.5mg Thursday: 3mg : 1.5mg Thursday: 3mg Thursday: 1.5mg Total Weekly Dose: 15mg Continue above plan. Follow up in 2 weeks. Seen by Tameka Churchill RN [employer] [facility] Other 02-21-2022 Evaluation note* Encounter Date Diagnosis Assessment Notes Treatment Notes Treatment Clinical Notes Sep, Medication monitoring encounter (ICD-10 - Z51.81) Referring Provider: Darius Herzog Diagnosis: DVT/PE (2001) INR Goal: 2-3 INR: 2.5 Tablet Size: 3mg Thursday: 1.5mg Thursday: 3mg Thursday: 1.5mg Thursday: 3mg : 1.5mg Thursday: 3mg Thursday: 1.5mg Total Weekly Dose: 15mg Continue above plan. Follow up in 2 weeks. Seen by Tameka Churchill RN [facility] [facility] Other 02-07-2022 Evaluation note* Encounter Date Diagnosis Assessment Notes Treatment Notes Treatment Clinical Notes Sep, Medication monitoring encounter (ICD-10 - Z51.81) Referring Provider: Darius Herzog Diagnosis: DVT/PE (1997, 2001) INR Goal: 2-3 INR: 2.6 Tablet Size: 3mg Thursday: 1.5mg Howard: 3mg Thursday: 1.5mg Thursday: 3mg : 1.5mg Thursday: 3mg Thursday: 1.5mg Total Weekly Dose: 15mg Continue above plan. Follow up in 2 weeks. Seen by Tameka Churchill RN [employer] [facility] Other 01-20-2022 Evaluation note* Encounter Date Diagnosis Assessment Notes Treatment Notes Treatment Clinical Notes Aug, Medication monitoring encounter (ICD-10 - Z51.81) Referring Provider: Darius Herzog Diagnosis: DVT/PE (1997, 2001) INR Goal: 2-3 INR: 1.8 Tablet Size: 3mg Regino: 1.5mg Thursday: 3mg Thursday: 1.5mg Thursday: 3mg : 1.5mg Thursday: 3mg Thursday: 1.5mg Total Weekly Dose: 15mg Boost additional 1.5mg today and then continue above plan. Follow up in 2 weeks. Seen by Tameka Churchill RN [facility] [facility] Other 01-06-2022 Evaluation note* Encounter Date Diagnosis Assessment Notes Treatment Notes Treatment Clinical Notes Aug, Medication monitoring encounter (ICD-10 - Z51.81) Referring Provider: Darius Herzog Diagnosis: DVT/PE (2001) INR Goal: 2-3 INR: 2.1 Tablet Size: 3mg Regino: 1.5mg Thursday: 3mg Thursday: 1.5mg Thursday: 3mg : 1.5mg Thursday: 3mg Thursday: 1.5mg Total Weekly Dose: 15mg Continue above plan. Follow up in 2 weeks. Seen by Tameka Churchill RN [facility] [facility] Other 12-09-2021 Evaluation note* Encounter Date Diagnosis Assessment Notes Treatment Notes Treatment Clinical Notes Jul, Medication monitoring encounter (ICD-10 - Z51.81) Referring Provider: Darius Herzog Diagnosis: DVT/PE (2001) INR Goal: 2-3 INR: 2.5 Tablet Size: 3mg Regino: 1.5mg Howard: 3mg Thursday: 1.5mg Thursday: 3mg : 1.5mg Thursday: 1.5mg Thursday: 3mg Total Weekly Dose: 15mg Continue above plan. Follow up in 2 weeks. Seen by Tameka Churchill RN [employer] [facility] Other 11-22-2021 Evaluation note* Encounter Date Diagnosis Assessment Notes Treatment Notes Treatment Clinical Notes Jun, Medication monitoring encounter (ICD-10 - Z51.81) Referring Provider: Darius Herzog Diagnosis: DVT/PE (1997, 2001) INR Goal: 2-3 INR: 2.6 Tablet Size: 3mg Regino: 1.5mg Howard: 3mg Thursday: 1.5mg Thursday: 3mg : 1.5mg Thursday: 1.5mg Thursday: 3mg Total Weekly Dose: 15mg Continue above plan. Follow up in 2 weeks. Seen by Tameka Churchill RN [employer] [facility] Other 11-10-2021 Evaluation note* Encounter Date Diagnosis Assessment Notes Treatment Notes Treatment Clinical Notes Jun, Medication monitoring encounter (ICD-10 - Z51.81) Referring Provider: Darius Herzog Diagnosis: DVT/PE (1997, 2001) INR Goal: 2-3 INR: 2.4 Tablet Size: 3mg Thursday: 1.5mg Thursday: 3mg Thursday: 1.5mg Thursday: 3mg : 1.5mg Thursday: 1.5mg Thursday: 3mg Total Weekly Dose: 15mg Continue above plan. Follow up in 2 weeks. Seen by Tameka Churchill RN [employer] [facility] Other 10-27-2021 Evaluation note* Encounter Date Diagnosis Assessment Notes Treatment Notes Treatment Clinical Notes May, Medication monitoring encounter (ICD-10 - Z51.81) Referring Provider: Darius Herzog Diagnosis: DVT/PE (1997, 2001) INR Goal: 2-3 INR: 1.8 Tablet Size: 3mg Regino: 1.5mg Howard: 1.5mg Thursday: 1.5mg Thursday: 3mg : 1.5mg Thursday: 1.5mg Thursday: 3mg Total Weekly Dose: 10.5mg Boost additional 1.5mg today and then continue above plan. Patient admits to missing last night's dose. Follow up in 1 week. Schedule with 's appt. Seen by Tameka Churchill RN [employer] [facility] Other 10-05-2021 Evaluation note* Encounter Date Diagnosis Assessment Notes Treatment Notes Treatment Clinical Notes May, Medication monitoring encounter (ICD-10 - Z51.81) Referring Provider: Darius Herzog Diagnosis: DVT/PE (1997, 2001) INR Goal: 2-3 INR: 2.1 Tablet Size: 3mg Regino: 1.5mg Howard: 1.5mg Thursday: 1.5mg Thursday: 3mg : 1.5mg Thursday: 1.5mg Thursday: 3mg Total Weekly Dose: 13.5mg Continue above plan. Follow up in 3 weeks. Schedule with 's appt. Seen by Tameka Churchill RN [employer] [facility] Other 09-22-2021 Evaluation note* Encounter Date Diagnosis Assessment Notes Treatment Notes Treatment Clinical Notes Apr, Medication monitoring encounter (ICD-10 - Z51.81) Referring Provider: Darius Herzog Diagnosis: DVT/PE (2001) INR Goal: 2-3 INR: 1.6 Tablet Size: 3mg Thursday: 1.5mg Thursday: 1.5mg Thursday: 1.5mg Thursday: 3mg : 1.5mg Thursday: 1.5mg Thursday: 3mg Total Weekly Dose: 13.5mg Boost an extra 1.5mg for two days, then continue above plan. Continue Lovenox injections for two days at infusion center for low INR per patient preference. Follow up in 2 weeks. Infusion Center was notified. Patient schedules with . Seen by Olu Rene PharmD [employer] [facility] Other chief complaint+Reason for visit Narrative* Chief Complaint DVT INR Follow Up blood in stool/change in stool/ref M. Sarah R59.0 Procedure Instructions + Lovenox Instructions Reason for Visit History of DVT (deep vein thrombosis) History of pulmonary embolism Rectal bleed Ulcerative colitis History of DVT (deep vein thrombosis) History of pulmonary embolism [facility] Work Phone: chief complaint+Reason for visit Narrative* Chief Complaint DVT INR Follow Up blood in stool/change in stool/ref M. Sarah R59.0 Procedure Instructions + Lovenox Instructions ulcerative colitis/blood in stool ulcerative colitis/blood in stool Reason for Visit History of DVT (deep vein thrombosis) History of pulmonary embolism Rectal bleed Ulcerative colitis History of DVT (deep vein thrombosis) History of pulmonary embolism [facility] Work Phone: Chitz complaint+Reason for visit Narrative* Chief Complaint INR Follow Up blood in stool/change in stool/ref M. Sarah R59.0 Procedure Instructions + Lovenox Instructions ulcerative colitis/blood in stool ulcerative colitis/blood in stool Post-Procedure INR*Lovenox INR Follow Up Reason for Visit History of DVT (deep vein thrombosis) History of pulmonary embolism Rectal bleed Ulcerative colitis History of DVT (deep vein thrombosis) History of pulmonary embolism History of DVT (deep vein thrombosis) History of pulmonary embolism History of DVT (deep vein thrombosis) History of pulmonary embolism [facility] Work Phone: Chisr complaint+Reason for visit Narrative* Chief Complaint blood in stool/betancur e in stool/ref Alicia. Sarah R59.0 Procedure Instructions + Lovenox Instructions ulcerative colitis/blood in stool ulcerative colitis/blood in stool Post-Procedure INR*Lovenox INR Follow Up fall INR Follow Up Reason for Visit Rectal bleed Ulcerative colitis History of DVT (deep vein thrombosis) History of pulmonary embolism History of DVT (deep vein thrombosis) History of pulmonary embolism History of DVT (deep vein thrombosis) History of pulmonary embolism History of DVT (deep vein thrombosis) History of pulmonary embolism [facility] Work Phone: Chiiw complaint+Reason for visit Narrative* Chief Complaint ulcerative colitis/b lood in stool ulcerative colitis/blood in stool Post-Procedure INR*Lovenox INR Follow Up fall INR Follow Up INR f/u Reason for Visit History of DVT (deep vein thrombosis) History of pulmonary embolism History of DVT (deep vein thrombosis) History of pulmonary embolism History of DVT (deep vein thrombosis) History of pulmonary embolism History of DVT (deep vein thrombosis) History of pulmonary embolism [facility] Work Phone: Evaluation [employer]No [employer] [facility] [employer] Other Evaluation [employer] Other Evaluation noteNo assessment information available [facility] Work Phone: Evaluation note* Diagnosis Onset Date Resolution Status HTN (hypertension) acute Shakiness acute Weakness acute [facility] Work Phone: evaluation note* Diagnosis Onset Date Resolution Status History of DVT (deep vein thrombosis) acute History of pulmonary embolism acute [facility] Work Phone: evaluation note* Diagnosis Onset Date Resolution Status History of DVT (deep vein thrombosis) acute History of pulmonary embolism acute Blood in stool acute Ulcerative colitis acute [facility] Work Phone: evaluation note* Diagnosis Onset Date Resolution Status History of DVT (deep vein thrombosis) acute History of pulmonary embolism acute Rectal bleed acute Ulcerative colitis acute [facility] Work Phone: evaluation note* Diagnosis Onset Date Resolution Status History of DVT (deep vein thrombosis) acute History of pulmonary embolism acute Rectal bleed acute Ulcerative colitis acute History of DVT (deep vein thrombosis) acute History of pulmonary embolism acute [facility] Work Phone: evaluation note* Diagnosis Onset Date Resolution Status History of DVT (deep vein thrombosis) acute History of pulmonary embolism acute Rectal bleed acute Ulcerative colitis acute History of DVT (deep vein thrombosis) acute History of pulmonary embolism acute History of DVT (deep vein thrombosis) acute History of pulmonary embolism acute History of DVT (deep vein thrombosis) acute History of pulmonary embolism acute [facility] Work Phone: evaluation note* Diagnosis Onset Date Resolution Status Rectal bleed acute Ulcerative colitis acute History of DVT (deep vein thrombosis) acute History of pulmonary embolism acute History of DVT (deep vein thrombosis) acute History of pulmonary embolism acute History of DVT (deep vein thrombosis) acute History of pulmonary embolism acute History of DVT (deep vein thrombosis) acute History of pulmonary embolism acute [facility] Work Phone: evaluation note* Diagnosis Onset Date Resolution Status History of DVT (deep vein thrombosis) acute History of pulmonary embolism acute History of DVT (deep vein thrombosis) acute History of pulmonary embolism acute History of DVT (deep vein thrombosis) acute History of pulmonary embolism acute History of DVT (deep vein thrombosis) acute History of pulmonary embolism acute [facility] Work Phone: evaluation note* Diagnosis Primary hypertension (CMS/HCC)- Primary Unspecified essential hypertension Mixed hyperlipidemia (CMS/HCC) Mixed hyperlipidemia Obstructive sleep apnea syndrome Obstructive sleep apnea (adult) (pediatric) Peripheral venous insufficiency Unspecified venous (peripheral) insufficiency Chronic deep vein thrombosis (DVT) of femoral vein of left lower extremity (CMS/HCC) 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 machines and devices Diabetic peripheral neuropathy associated with type 2 diabetes mellitus (CMS/HCC) Gastroesophageal reflux disease without esophagitis Esophageal reflux Hypercoagulable state ([facility]) Primary hypercoagulable state [facility] current use of 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 [facility] current use of insulin ([facility]) OAB (overactive bladder) Class 1 obesity Spinal stenosis of lumbosacral region Ulcerative colitis without complications, unspecified location ([facility]) Need for immunization against influenza Need for prophylactic vaccination and inoculation against influenza Atrophic vaginitis Postmenopausal atrophic vaginitis Bilateral leg edema Edema documented in this encounter [facility] Diagnosis Onset Date Resolution Status History of DVT (deep vein thrombosis) acute History of pulmonary embolism acute History of DVT (deep vein thrombosis) acute History of pulmonary embolism acute History of DVT (deep vein thrombosis) acute History of pulmonary embolism acute [facility] Work Phone: Evaluation note* Diagnosis Type II diabetes mellitus with neurological manifestations ([facility])- Primary Type II or unspecified type diabetes mellitus with neurological manifestations, not stated as uncontrolled Onychomycosis Dermatophytosis of nail Corns and callosities Hallux malleus, left Pain in both feet documented in this encounter [facility] Healthcare[facility]* Diagnosis Type II diabetes mellitus with neurological manifestations ([facility])- Primary Type II or unspecified type diabetes mellitus with neurological manifestations, not stated as uncontrolled Onychomycosis Dermatophytosis of nail Corns and callosities Pain in both feet documented in this encounter [facility] HealthcareEvaluation note* Diagnosis Axillary lymphadenopathy- Primary Enlargement of lymph nodes documented in this encounter [facility]* Diagnosis Primary osteoarthritis of right knee- Primary Hypercoagulable state ([facility]/HCC) Primary hypercoagulable state Diabetic peripheral neuropathy associated with type 2 diabetes mellitus ([facility]) Primary hypertension ([facility]) Unspecified essential hypertension Ulcerative colitis without complications, unspecified location ([facility]) [facility] current use of insulin ([facility]) [facility] current use of 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 Sacral ulcer, limited to breakdown of skin ([facility]) documented in this encounter [facility] HealthcareEvaluation note* Diagnosis Nonintractable headache, unspecified chronicity pattern, unspecified headache type- Primary Neck pain Cervicalgia Paresthesia of left arm Disturbance of skin sensation Numbness of fingers Disturbance of skin sensation documented in this encounter [facility] general Narrative - Reported* Type Description Date Medical History Diabetes Type II Medical History Hypertension Medical History Hyper cholesterolemia Medical History Overweight Surgical History Bilateral tubal ligation; 1977 Surgical History colonoscopy with bio psy;Disease:Ulcerative colitis 2012 Surgical History colonoscopy;Disease:Ulcerative colitis 2009 Surgical History Cholecystectomy 1985 Surgical History Colonoscopy with bio psy;Disease:Ulcerative Colitis 2012 Surgical History Hernia repair 1985 Surgical History Lump removed left breast 2011 Surgical History colonoscopy with polypectomy 20 13 Surgical History carpal tunnel release with aj marc of a bone january 17, 2016 Surgical History Colonoscopy with biopsies due t o Colitis Hx. 07-05-16 Surgical History C3-4, C4-[address] Maynard. 1 Hospitalization History see surgical Hx Hospitalization History acute gastroenteritis 04/30-05/01/18 [facility] Other [facility] general Narrative - Reported* Type Description Date Medical History Diabetes Type II Medical History Hypertension Medical History Hyper cholesterolemia Medical History Overweight Surgical History Bilateral tubal ligation; 1977 Surgical History gall bladder Surgical History colonoscopy with bio psy;Disease:Ulcerative colitis 2012 Surgical History hernia repair Surgical History blood clot Surgical History colonoscopy;Disease:Ulcerative colitis 2009 Surgical History Cholecystectomy 1985 Surgical History Colonoscopy with bio psy;Disease:Ulcerative Colitis 2012 Surgical History Hernia repair 1985 Surgical History Lump removed left breast 2011 Surgical History colonoscopy with polypectomy 20 13 Surgical History carpal tunnel release with aj marc of a bone january 17, 2016 Surgical History Colonoscopy with biopsies due t o Colitis Hx. 07-05-16 Surgical History C3-4, C4-[address] Maynard. 1 Hospitalization History see above [facility] Other History general Narrative - ReportedNort Practice Management e-Tools Other Hospital Discharge instructions Additional Instructions Continue your pain pills at home Return symptoms are worse [facility] Hospital Discharge instructions Additional Instructions [facility] current [facility]s [facility] are [facility]: Chief Complaint and Reason for Visit Chief Complaint Esophagogastric Outf low Obstruction Esophagogastric Outflow Obstruction E11.40 M20.41 M20.11 DVT Chief Complaint E11.40 M20.41 M20.11 DVT lovenox bridging. inr Chief Complaint E11.40 M20.41 M20.11 inr lovenox bridging. DVT N63.21 s/p r foot surgery calf pain and swelling Chief Complaint E11.40 M20.41 M20.11 inr lovenox bridging. N63.21 s/p r foot surgery calf pain and swelling DVT R Leg and Hip pain Chief Complaint R Leg and Hip pain DVT doesnt feel right Chief Complaint doesnt feel right DVT N63.21 Chief Complaint doesnt feel right N63.21 DVT weakness Chief Complaint N63.21 DVT weakness Deep vein thrombosis (DVT) Reason for Visit HTN (hypertension) Shakiness Weakness Chief Complaint DVT axillary lymphadenopathy Chief Complaint DVT Chief Complaint DVT INR Follow Up Reason for Visit History of DVT (deep vein thrombosis) History of pulmonary embolism Chief Complaint DVT INR Follow Up blood in stool/change in stool/ref Kevin Smith Reason for Visit History of DVT (deep vein thrombosis) History of pulmonary embolism Blood in stool Ulcerative colitis Chief Complaint DVT INR Follow Up blood in stool/change in stool/ref Kevin Smith R59.0 Reason for Visit History of DVT (deep vein thrombosis) History of pulmonary embolism Rectal bleed Ulcerative colitis Chief Complaint INR Follow Up fall INR Follow Up INR f/u INR f/u Reason for Visit History of DVT (deep vein thrombosis) History of pulmonary embolism History of DVT (deep vein thrombosis) History of pulmonary embolism History of DVT (deep vein thrombosis) History of pulmonary embolism History of DVT (deep vein thrombosis) History of pulmonary embolism Chief Complaint fall INR Follow Up INR f/u INR f/u INR f/u Reason for Visit History of DVT (deep vein thrombosis) History of pulmonary embolism History of DVT (deep vein thrombosis) History of pulmonary embolism History of DVT (deep vein thrombosis) History of pulmonary embolism History of DVT (deep vein thrombosis) History of pulmonary embolism Chief Complaint INR f/u INR f/u INR f/u INR f/u Reason for Visit History of DVT (deep vein thrombosis) History of pulmonary embolism History of DVT (deep vein thrombosis) History of pulmonary embolism History of DVT (deep vein thrombosis) History of pulmonary embolism History of DVT (deep vein thrombosis) History of pulmonary embolism Chief Complaint INR f/u INR f/u INR f/u 6 month follow up Reason for Visit History of DVT (deep vein thrombosis) History of pulmonary embolism History of DVT (deep vein thrombosis) History of pulmonary embolism History of DVT (deep vein thrombosis) History of pulmonary embolism Chief Complaint Admit Date INR f/u April 14, 2024 8: 37am INR f/u May 09, 2024 8:15am INR f/u June 06, 2024 8 :27am 6 month follow up June 29, 2024 1 0:28am INR f/u July 04, 2024 8:29am Reason for Visit Admit Date History of DVT (deep vein thrombosis) [facility] 2023 8:37am History of pulmonary embolism March 8:37am History of DVT (deep vein thrombosis) Se ptember 2023 8:15am History of pulmonary embolism May 09, 2024 8:15am History of DVT (deep vein thrombosis) Oc tober 2023 8:27am History of pulmonary embolism June 062023 8:27am Crohn's colitis June 29, 2024 1 0:28am Internal hemorrhoids June 29, 2024 10:28am History of DVT (deep vein thrombosis) No 2023 8:29am History of pulmonary embolism June 242023 8:29am Chief Complaint Admit Date 6 month follow up June 29, 2024 1 0:28am INR f/u July 04, 2024 8:29am INR Follow Up August 03, 2024 8:24am Reason for Visit Admit Date Crohn's colitis June 29, 2024 1 0:28am Internal hemorrhoids June 29, 2024 10:28am History of DVT (deep vein thrombosis) No 2023 8:29am History of pulmonary embolism June 242023 8:29am History of DVT (deep vein thrombosis) De cember 2023 8:24am History of pulmonary embolism July 242023 8:24am History of DVT (deep vein thrombosis) [facility] 2024 8:43am History of pulmonary embolism September 092024 8:43am Chief Complaint Admit Date INR Follow Up August 03, 2024 8:24am INR f/u October 05, 2024 8:36am Reason for Visit Admit Date History of DVT (deep vein thrombosis) [facility] 2023 8:24am History of pulmonary embolism July 242023 8:24am History of DVT (deep vein thrombosis) [facility] 2024 8:43am History of pulmonary embolism September 092024 8:43am History of DVT (deep vein thrombosis) [facility] 2024 8:36am History of pulmonary embolism September 242024 8:36am Chief Complaint Admit Date INR Follow Up August 03, 2024 8:24am INR f/u October 05, 2024 8:36am 3 month Follow up/colitis October 07, 2024 9:04am Reason for Visit Admit Date History of DVT (deep vein thrombosis) [facility] 2023 8:24am History of pulmonary embolism July 242023 8:24am History of DVT (deep vein thrombosis) [facility] 2024 8:43am History of pulmonary embolism September 092024 8:43am History of DVT (deep vein thrombosis) [facility] 2024 8:36am History of pulmonary embolism September 242024 8:36am Crohn's colitis October 07, 2024 9:04am Chief Complaint Admit Date INR f/u October 05, 2024 8:36am 3 month Follow up/colitis October 07, 2024 9:04am INR f/u November 02, 2024 8:5 1am Reason for Visit Admit Date History of DVT (deep vein thrombosis) [facility] 2024 8:43am History of pulmonary embolism September 092024 8:43am History of DVT (deep vein thrombosis) [facility] 2024 8:36am History of pulmonary embolism September 242024 8:36am Crohn's colitis October 07, 2024 9:04am History of DVT (deep vein thrombosis) [facility] 2024 8:51am History of pulmonary embolism October 8:51am Chief Complaint Admit Date INR f/u October 05, 2024 8:36am 3 month Follow up/colitis October 07, 2024 9:04am INR f/u November 02, 2024 8:5 1am INR f/u November 30, 2024 8:37 am Reason for Visit Admit Date History of DVT (deep vein thrombosis) Ja nuary 2024 8:43am History of pulmonary embolism September 092024 8:43am History of DVT (deep vein thrombosis) Fe bruary 2024 8:36am History of pulmonary embolism September 242024 8:36am Crohn's colitis October 07, 2024 9:04am History of DVT (deep vein thrombosis) [facility] 2024 8:51am History of pulmonary embolism October 8:51am History of DVT (deep vein thrombosis) Ap [facility] 2024 8:37am History of pulmonary embolism November 30, 2024 8:37am Family History Relationship Condition Age at Onset Recorded Date/T vida father Diabetes mellitus Unknown Heart disease Unknown Not Specified Diabetes mellitus Unknown Relationship Condition Age at Onset Recorded Date/T vida father Diabetes mellitus Unknown Heart disease Unknown Not Specified Diabetes mellitus Unknown brother Diabetes mellitus Unknown daughter Unknown father Heart disease Unknown Unknown Diabetes mellitus Unknown family member Malignant neoplasm Unknown Not Specified Heart disease Unknown History of stroke Unknown sister Diabetes mellitus Unknown Relationship Condition Age at Onset Recorded Date/T vida father Diabetes mellitus Unknown Heart disease Unknown Unknown Not Specified Diabetes mellitus Unknown History of stroke Unknown brother Diabetes mellitus Unknown daughter Unknown family member Diabetes mellitus Unknown Malignant neoplasm Unknown sister Diabetes mellitus Unknown Relationship Condition Age at Onset Recorded Date/T vida father Diabetes mellitus Unknown Heart disease Unknown Unknown mother Diabetes mellitus Unknown History of stroke Unknown brother Diabetes mellitus Unknown daughter Unknown family member Diabetes mellitus Unknown Malignant neoplasm Unknown sister Diabetes mellitus Unknown Advance Directives Advance Directive Response Recorded Date/ Time Advance Directives No April 1:47pm Advance Directive Response Recorded Date/ Time Advance Directives No April 12:47pm Date Activated Date Inactivated Comments 12/03/2023 10:52 AM Date Activated Date Inactivated Comments 12/03/2023 10:52 AM Summary Purpose Additional Source Comments REASON FOR VISIT (unrecogniz ed section and content) Reason Comments 6 mos ov Patient presents for 3 mos ov to review lab. She has a complaint of vaginal itching and burning with possible rash down her leg. Reason Comments Mamms/Lt. axillary US w/exam Completed i n November Reason Comments 3 month follow up Patient presents tod kashif for a routine 3 month follow up. She has a complaint of Rt lower leg and knee pain for approx 2 weeks, a runny nose for 3 months, and an open sore on tailbone for about 3 days. Diabetes A1C= -- 6.8%. Previo us 7.3% Reason Comments ER Follow-up Care Teams (unrecognized sec tion and content) Team Status: Active Member Role Status Leesa Herzog DO Primary Care Provider Active Team Status: Inactive Member Role Status Leesa Herzog DO Primary Care Provide r, Attending Provider Active Start: October 05, 2023 End: October 05, 2023 Team Status: Inactive Member Role Status Leesa Herzog DO Primary Care Provide r, Referring Provider Active Start: November 09, 2023 End: November 09, 2023 Tita Roberts PharmD Attending Provider Active Start: November 09, 2023 End: November 09, 2023 Team Status: Active Member Role Status Leesa Herzog DO Primary Care Provider, Attending P lacey Active Team Status: Inactive Member Role Status Leesa Herzog DO Primary Care Provider Active Radha Verduzco DO Attending Provider Active Team Status: Inactive Member Role Status Leesa Herzog DO Primary Care Provider Active Edmond Branham MD Emergency Provider Active Team Status: Inactive Member Role Status Leesa Herzog DO Primary Care Provider Active Tang Shrestha MD Attending Provider Active Team Status: Inactive Member Role Status Leesa Herzog DO Primary Care Provider Active Marlon Molina DPM Attending Provider Active Team Status: Inactive Member Role Status Leesa Herzog DO Primary Care Provider, Attending P roelio Active Team Status: Active Member Role Status Leesa Herzog DO Primary Care Provider Active Celio Lobo PA-C Emergency Provider Active Rosalina Shelton MD Admit Provider, Attending Provide r Active Team Status: Inactive Member Role Status Leesa Herzog DO Primary Care Provider Active Celio Lobo PA-C Emergency Provider Active Rosalina Shelton MD Admit Provider Active Gabriel Castaneda DO Attending Provider Active Team Status: Inactive Member Role Status Dates Gabriel Castaneda DO Attending Provider Active Team Status: Active Member Role Status Dates 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 Primary Care Provider Active Team Status: Inactive Member Role Status Dates Radha Verduzco DO Attending Provider Active 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 Primary Care Provider Active Faculty Member Relationship Specialty Start Date End Date Kristopher Herzog DO [address] [place] [address] PCP - Devoted 12/22/21 Kristopher Herzog DO [address] [place] [address] PCP - General Internal Medicine 12/30/22 Team Status: Inactive Member Role Status Dates Kristopher Herzog DO Primary Care Provider Active Start: December 07, 2023 End: December 07, 2023 Sandy Clark , DO Attending Provider Active St art: December 07, 2023 End: December 07, 2023 Team Status: Inactive Member Role Status Leesa Herzog DO Primary Care Provider Active Start: December 07, 2023 End: December 07, 2023 Radha Verduzco DO Attending Provider Active Start: December 07, 2023 End: December 07, 2023 Team Status: Inactive Member Role Status Leesa Herzog DO Primary Care Provide r, Referring Provider Active Start: December 14, 2023 End: December 14, 2023 Nirali QuinonesD Attending Provider Active Start: December 14, 2023 End: December 14, 2023 Team Status: Inactive Member Role Status Leesa Herzog DO Primary Care Provider Active Start: December 28, 2023 End: December 28, 2023 Sandy Clark , DO Attending Provider Active St art: December 28, 2023 End: December 28, 2023 Team Status: Active Member Role Status Leesa Herzog DO Primary Care Provider Active Start: December 28, 2023 Sandy L Ly , DO Attending Provider, Other Provider Active Start: December 28, 2023 Team Status: Inactive Member Role Status Leesa Herzog DO Primary Care Provide r, Referring Provider Active Start: January 05, 2024 End: January 05, 2024 Tita Roberts PharmD Attending Provider Active Start: January 05, 2024 End: January 05, 2024 Team Status: Inactive Member Role Status Dates Kristopher Herzog DO Primary Care Provide r, Referring Provider Active Start: January 20, 2024 End: January 20, 2024 Kiersten Qureshi RPH Attending Provider Active Start: January 20, 2024 End: January 20, 2024 Team Status: Inactive Member Role Status Dates Kristopher Herzog DO Primary Care Provider Active Start: February 09, 2024 End: February 09, 2024 Johnny Keen DO Emergency Provider Active Sta rt: February 09, 2024 End: February 09, 2024 Team Status: Inactive Member Role Status Dates Kristopher Herzog DO Primary Care Provide r, Referring Provider Active Start: February 17, 2024 End: February 17, 2024 Kiersten Qureshi RPH Attending Provider Active Start: February 17, 2024 End: February 17, 2024 Team Status: Inactive Member Role Status Dates Kristopher Herzog DO Primary Care Provide r, Referring Provider Active Start: March 14, 2024 End: March 14, 2024 Kiersten Qureshi RPH Attending Provider Active Start: March 14, 2024 End: March 14, 2024 Team Status: Inactive Member Role Status Leesa Herzog DO Primary Care Provide r, Referring Provider Active Start: April 14, 2024 End: April 14, 2024 Kiersten Qureshi RPH Attending Provider Active Start: April 14, 2024 End: April 14, 2024 Team Status: Inactive Member Role Status Leesa Herzog DO Primary Care Provide r, Referring Provider Active Start: May 09, 2024 End: May 09, 2024 Kiersten Qureshi RPH Attending Provider Active Start: May 09, 2024 End: May 09, 2024 Team Status: Inactive Member Role Status Leesa Herzog DO Primary Care Provide r, Referring Provider Active Start: June 06, 2024 End: June 06, 2024 Kiersten Qureshi RPH Attending Provider Active Start: June 06, 2024 End: June 06, 2024 Faculty Member Relationship Specialty Start Date End Date Kristopher Herzog DO [address] [place] [address] PCP - Devoted 12/22/21 Kristopher Herzog DO [address] [place] [address] PCP - General Internal Medicine 12/30/22 Faculty Member Relationship Specialty Start Date End Date Kristopher Herzog DO [address] [place] [address] PCP - Devoted 12/22/21 Kristopher Herzog DO [address] [place] [address] PCP - General Internal Medicine 12/30/22 Team Status: Inactive Member Role Status Dates Kristopher Herzog DO Primary Care Provider Active Start: June 29, 2024 End: June 29, 2024 Sandy Clark DO Attending Provider Active St art: June 29, 2024 End: June 29, 2024 Team Status: Inactive Member Role Status Dates Kristopher Herzog DO Primary Care Provide r, Referring Provider Active Start: July 04, 2024 End: July 04, 2024 Nirali QuinonesD Attending Provider Active Start: July 04, 2024 End: July 04, 2024 Faculty Member Relationship Specialty Start Date End Date Kristopher Herzog DO [address] [place] [address] PCP - Devoted 12/22/21 08/23/24 Kristopher Herzog DO [address] [place] [address] PCP - General Internal Medicine 12/30/22 Faculty Member Relationship Specialty Start Date End Date Kristopher Herzog DO [address] [place] [address] PCP - Devoted 12/22/21 08/23/24 Kristopher Herzog DO [address] [place] [address] PCP - General Internal Medicine 12/30/22 Faculty Member Relationship Specialty Start Date End Date Kristopher Herzog DO [address] [place] [address] PCP - Devoted 12/22/21 Kristopher Herzog DO [address] [place] [address] PCP - General Internal Medicine 12/30/22 Faculty Member Relationship Specialty Start Date End Date Kristopher Herzog DO [address] [place] [address] PCP - Devoted 12/22/21 Kristopher Herzog DO [address] [place] [address] PCP - General Internal Medicine 12/30/22 Team Status: Inactive Member Role Status Dates Kristopher Herzog DO Primary Care Provide r, Referring Provider Active Start: August 03, 2024 End: August 03, 2024 Kiersten Qureshi RPH Attending Provider Active Start: August 03, 2024 End: August 03, 2024 Team Status: Inactive Member Role Status Dates Kristopher Herzog DO Primary Care Provide r, Referring Provider Active Start: September 09, 2024 End: September 09, 2024 Kiersten Qureshi RPH Attending Provider Active Start: September 09, 2024 End: September 09, 2024 Faculty Member Relationship Specialty Start Date End Date Kristopher Herzog DO [address] [place] [address] PCP - General Internal Medicine 12/30/22 Team Status: Inactive Member Role Status Dates Kristopher Herzog DO Primary Care Provide r, Referring Provider Active Start: October 05, 2024 End: October 05, 2024 Kiersten Qureshi RPH Attending Provider Active Start: October 05, 2024 End: October 05, 2024 Team Status: Inactive Member Role Status Dates Kristopher Herzog DO Primary Care Provider Active Start: October 07, 2024 End: October 07, 2024 Sandy Clark DO Attending Provider Active St art: October 07, 2024 End: October 07, 2024 Faculty Member Relationship Specialty Start Date End Date Kristopher Herzog DO [address] [place] [address] PCP - General Internal Medicine 12/30/22 Team Status: Inactive Member Role Status Dates Kristopher Herzog DO Primary Care Provide r, Referring Provider Active Start: November 02, 2024 End: November 02, 2024 Kiersten Qureshi RPH Attending Provider Active Start: November 02, 2024 End: November 02, 2024 Team Status: Active Member Role Status Dates Kristopher Herzog DO Primary Care Provider Active Start: October 23, 2024 Sumit Diaz DO Attending Provider Active Sta rt: October 23, 2024 Team Status: Inactive Member Role Status Dates Kristopher Herzog DO Primary Care Provide r, Referring Provider Active Start: November 30, 2024 End: November 30, 2024 Kiersten Qureshi RPH Attending Provider Active Start: November 30, 2024 End: November 30, 2024 Goals (unrecognized section and content) Goals may be documented in a n alternate section INFORMATION SOURCE (unrecogn ized section and content) DATE CREATED AUTHOR 12/18/2022 [facility] DATE CREATED AUTHOR AUTHOR'S ORGANIZ ATION 05/07/2024 [facility] DATE CREATED AUTHOR AUTHOR'S ORGANIZ ATION 11/28/2024 [facility] FOR RECORDS PERTAINING TO PATIENTS WHO ARE OR HAVE BEEN ENROLLED IN A CHEMICAL DEPENDENCY/SUBSTANCEABUSE PROGRAM, SOME INFORMATION MAY BE OMITTED. This clinical summary was aggregated from multiple sources. Caution should be exercised in using it in the provision of clinical care. This summary normalizes information from multiple sources, and as a consequence, information in this document may materially change the coding, format and clinical context of patient data. In addition, data may be omitted in some cases. CLINICAL DECISIONS SHOULD BE BASED ON THE PRIMARY CLINICAL RECORDS. [facility] [employer] [facility]. provides no warranty or guarantee of the accuracy or completeness of information in this document.
--- NOTE | 2024-12-06 11:32 | ED.GENADUL1 ---
HPI HPI - General Adult General Chief complaint: Extremity Problem, Nontraumatic Stated complaint: L LEG NUMBNESS Time Seen by Provider: 12/06/24 11:05 Source: patient Mode of arrival: walk-in Limitations: no limitations History of Present Illness HPI narrative: Patient presents with a 2-week history of numbness in the left lower leg and now has some pain. She states the top of the left foot feels warm. When her symptoms first started 2 weeks ago she saw her PCP and had an ultrasound done which was negative for DVT. She has a remote history of DVT in the left leg and has had PE twice. This was in the 80s or the 90s. She takes warfarin 3 mg daily. Related Data Home Medications ?Medication ?Instructions ?Recorded ?Confirmed citalopram 20 mg tablet mg 12/06/24 furosemide 20 mg tablet mg 12/06/24 insulin aspar prt-insulin aspart subcut 12/06/24 100 unit/mL (70-30) subcutaneous soln (Novolog Mix 70-30 U-100 Insuln) losartan 50 mg tablet mg 12/06/24 pantoprazole 40 mg tablet,delayed mg PO 12/06/24 release rosuvastatin 20 mg tablet mg 12/06/24 warfarin 3 mg tablet mg 12/06/24 Allergies Allergy/AdvReac Type Severity Reaction Status Date / Time No Known Drug Allergies Allergy Verified 10/21/24 12:27 Opioid HPI Opioid Management Most Recent Opioid Data: No Data to Display Review of Systems ROS Status of ROS 10 or more systems reviewed and unremarkable except as noted in history and below PFSH PFSH Social History Little interest or pleasure in doing things: not at all Feeling down, depressed, or hopeless: not at all Exam Narrative Exam Narrative: Afebrile and nondistressed. HEENT exam is normal to inspection. Neck is supple. Lung sounds are clear to auscultation bilaterally with good air entry. Heart has regular rate and rhythm. S1 and S2 are normal. Abdomen soft nontender. Patient has unilateral swelling of the left leg with tenderness and calf compression. There is venous stasis dermatitis distally in the left ankle and foot. Circulation and sensation are intact in the foot. The right leg is not swollen. Constitutional Vital Signs, click to edit/add: Last Vital Signs Temp 97.7 F 12/06/24 11:03 Pulse 72 12/06/24 11:03 Resp 16 12/06/24 11:03 BP 186/91 H 12/06/24 11:03 Pulse Ox 98 12/06/24 11:03 O2 Del Method Room Air 12/06/24 11:03 Course Vital Signs Vital signs: Vital Signs Temperature 97.7 F 12/06/24 11:03 Pulse Rate 72 12/06/24 11:03 Respiratory Rate 16 12/06/24 11:03 Blood Pressure 186/91 H 12/06/24 11:03 Pulse Oximetry 98 12/06/24 11:03 Oxygen Delivery Method Room Air 12/06/24 11:03 Temperature 97.7 F 12/06/24 11:03 Pulse Rate 72 12/06/24 11:03 Respiratory Rate 16 12/06/24 11:03 Blood Pressure 186/91 H 12/06/24 11:03 Pulse Oximetry 98 12/06/24 11:03 Oxygen Delivery Method Room Air 12/06/24 11:03 Medical Decision Making MDM Narrative Medical decision making narrative: Venous Dopplers of the left leg are negative for DVT. My impression is that she has impaired lymphatic return due to her history of the chronic DVT. I have applied an Haseeb wrap for compression externally. I have advised her to get some elastic stockings for compression and wear them which will help reduce the swelling and also reduce her discomfort. At this time there is no evidence of cellulitis. Follow-up as advised with her PCP and she may return anytime for worsening symptoms. Lab Data Labs: Lab Results 12/06/24 Range/Units 11:40 WBC 5.4 (4.0-11.0) 10^3/uL RBC 3.91 L (4.20-5.40) 10^6/uL Hgb 12.9 (12.0-16.0) g/dL Hct 37.7 (36.0-48.0) % MCV 96.4 (81.0-99.0) fL MCH 33.0 (26.7-34.0) pg MCHC 34.2 (29.9-35.2) g/dL RDW 12.5 (11.0-15.0) % Plt Count 213 (150-450) 10^3/uL MPV 10.2 (9.5-13.5) fL Neut % (Auto) 58.2 (43.0-75.0) % Lymph % (Auto) 30.1 (20.5-60.0) % [place] % (Auto) 9.1 (1.7-12.0) % Eos % (Auto) 1.5 (0.9-7.0) % Baso % (Auto) 0.9 (0.2-2.0) % Neut # (Auto) 3.1 (1.4-6.5) 10^3/uL Lymph # (Auto) 1.6 (1.2-3.8) 10^3/uL [place] # (Auto) 0.5 (0.3-0.8) 10^3/uL Eos # (Auto) 0.1 (0.0-0.7) 10^3/uL Baso # (Auto) 0.1 (0.0-0.1) 10^3/uL Abs Immat Gran (auto) 0.01 (0.00-0.03) 10^3/uL Imm/Tot Granulo (auto) 0.2 (0.0-0.5) % PT 28.2 H (9.0-11.6) sec INR 2.96 Sodium 139 (136-145) mmol/L Potassium 4.1 (3.5-5.1) mmol/L Chloride 103 (98-107) mmol/L Carbon Dioxide 27.4 (21.0-32.0) mmol/L Anion Gap 12.7 BUN 28.0 H (7.0-18.0) mg/dL Creatinine 1.11 H (0.55-1.02) mg/dL Est GFR ( Amer) 58 L (>=60 mL/min/1.73m^2) Est GFR (Non-Af Amer) 48 L (>=60 mL/min/1.73m^2) BUN/Creatinine Ratio 25.2 Glucose 111 H (74-106) mg/dL Calcium 8.8 (8.5-10.1) mg/dL Total Bilirubin 0.3 (0.2-1.0) mg/dL AST 16 (15-37) U/L ALT 22 (14-59) U/L Alkaline Phosphatase 53 (46-116) U/L Total Protein 6.9 (6.4-8.2) g/dL Albumin 3.4 (3.4-5.0) g/dL Globulin 3.5 g/dL Albumin/Globulin Ratio 1.0 Discharge Plan Discharge Chief Complaint: Extremity Problem, Nontraumatic Clinical Impression: Edema of left lower leg due to peripheral venous insufficiency Patient Disposition: Home, Self-Care Time of Disposition Decision: 13:33 Condition: Good Mode of Transportation: Private Vehicle Prescriptions / Home Meds: No Action losartan 50 mg tablet warfarin 3 mg tablet citalopram 20 mg tablet pantoprazole 40 mg tablet,delayed release (DR/EC) PO furosemide 20 mg tablet insulin asp prt-insulin aspart [Novolog Mix 70-30 U-100 Insuln] 100 unit/mL (70-30) solution SUBCUT rosuvastatin 20 mg tablet Print Language: Sammarinese Instructions: Lymphedema (ED) Additional Instructions: Wear an elastic stocking in the left leg every day and remove at night. Contact your PCP in the next couple days for follow-up. Return for worsening symptoms. Referrals: SHANICE HERZOG [Primary Care Provider] - 1 week
[2024-12-06 11:49] LABS: Basophils Absolute Auto 0.1 10^3/uL (0.0-0.1); Basophils Percent Auto 0.9 % (0.2-2.0); Eosinophils Absolute Auto 0.1 10^3/uL (0.0-0.7); Eosinophils Percent Auto 1.5 % (0.9-7.0); Hematocrit 37.7 % (36.0-48.0); Hemoglobin 12.9 g/dL (12.0-16.0); Immature Granulocytes Abs Auto 0.01 10^3/uL (0.00-0.03); Immature Granulocytes Pct Auto 0.2 % (0.0-0.5); Lymphocytes Absolute Auto 1.6 10^3/uL (1.2-3.8); Lymphocytes Percent Auto 30.1 % (20.5-60.0); Mean Corpuscular HGB Conc 34.2 g/dL (29.9-35.2); Mean Corpuscular Volume 96.4 fL (81.0-99.0); Mean Platelet Volume 10.2 fL (9.5-13.5); Monocytes Absolute Auto 0.5 10^3/uL (0.3-0.8); Monocytes Percent Auto 9.1 % (1.7-12.0); Neutrophils Absolute Auto 3.1 10^3/uL (1.4-6.5); Neutrophils Percent Auto 58.2 % (43.0-75.0); Platelet Count 213 10^3/uL (150-450); Red Blood Count 3.91 10^6/uL (4.20-5.40); Red Cell Distribution Width 12.5 % (11.0-15.0); White Blood Count 5.4 10^3/uL (4.0-11.0)
[2024-12-06 12:00] LABS: Alanine Aminotransferase 22 U/L (14-59); Albumin Level 3.4 g/dL (3.4-5.0); Alkaline Phosphatase 53 U/L (46-116); Anion Gap 12.7; Aspartate Amino Transferase 16 U/L (15-37); BUN Creatinine Ratio 25.2; Bilirubin Total 0.3 mg/dL (0.2-1.0); Calcium 8.8 mg/dL (8.5-10.1); Carbon Dioxide 27.4 mmol/L (21.0-32.0); Chloride 103 mmol/L (98-107); Estimated GFR (African America 58 (>=60 mL/min/1.73m^2); Estimated GFR (Non-African Ame 48 (>=60 mL/min/1.73m^2); Globulin 3.5 g/dL; Glucose 111 mg/dL (74-106); Potassium 4.1 mmol/L (3.5-5.1); Sodium 139 mmol/L (136-145); Total Protein 6.9 g/dL (6.4-8.2)
[2024-12-06 12:20] LABS: INR 2.96; Prothrombin Time 28.2 sec (9.0-11.6)
== END 2024-12-06 13:50 | disposition home or self-care (01) ==
PROVIDERS: Emergency Provider Emergency Medicine; Family Provider Family Medicine; PCP Internal Medicine
DX: I87.2 Venous insufficiency (chronic) (peripheral) (principal); R60.0 Localized edema; Z86.718 Personal history of other venous thrombosis and embolism; Z86.711 Personal history of pulmonary embolism; Z79.01 Long term (current) use of 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s
CPT/HCPCS: 36415; 80053; 85025; 85610; 93971; 99284

== ENCOUNTER 2025-01-05 08:23 | Outpatient (OUT) | payer MEDICARE, SELFPAY ==
[2025-01-05 10:30] LABS: Anion Gap 12.2; BUN Creatinine Ratio 26.7; Calcium 8.9 mg/dL (8.5-10.1); Chloride 105 mmol/L (98-107); Estimated GFR (African America >60 (>=60 mL/min/1.73m^2); Estimated GFR (Non-African Ame 54 (>=60 mL/min/1.73m^2); Glucose 143 mg/dL (74-106); Potassium 4.2 mmol/L (3.5-5.1); Sodium 140 mmol/L (136-145)
== END 2025-01-05 08:24 | disposition home or self-care (01) ==
LOC: LAB 08:26
PROVIDERS: Family Provider Family Medicine; PCP Internal Medicine; Visit Provider Internal Medicine
DX: M79.89 Other specified soft tissue disorders (principal)
CPT/HCPCS: 36415; 80048

== ENCOUNTER 2025-01-11 08:09 | Outpatient (OUT) | payer MEDICARE, SELFPAY ==
--- OUTSIDE RECORDS SUMMARY | 2025-01-11 08:15 | XMS_ITS | CCD ---
Author Organization [facility] Care Team Providers Care Edi Manager Name Role Phone Lauren Vance Unavailable Antonio Thompson Unavailable Tang Shrestha Unavailable [phone] DO Kristopher Herzog Primary Care Provider MD Tang Shrestha Attending Provider [phone] IRAM Molina Attending Provider [phone] DO Kristopher Herzog Attending Provider [phone] DO Kristopher Herzog Primary Care Provider DO Kristopher Herzog Attending Provider DO Radha Verduzco Attending Provider DO Kristopher Herzog Primary Care Provider IRAM Molina Attending Provider DO Kristopher Herzog Attending Provider DO Radha Verduzco Attending Provider MD Edmond Branham Emergency Provider Olu Rene Unavailable DO Kristopher Herzog Primary Care Provider DO Kristopher Herzog Attending Provider [phone] Kiersten Qureshi Unavailable DO Kristopher Herzog Primary Care Provider MD Edmond Branham Emergency Provider DO Kristopher Herzog Attending Provider DO Radha Verduzco Attending Provider DO Kristopher Herzog Attending Provider FAITH Lobo Emergency Provider MD Rosalina Shelton Admit Provider MD Rosalina Shelton Attending Provider DO Chuy Kristopher Primary Care Provider DO Gabriel Castaneda Attending Provider DO Kristopher Herzog Primary Care Provider DO Kristopher Herzog Attending Provider DO Radha Verduzco Attending Provider NO FAMILY, PHYSICIAN Primary Care Provider Unava ilable Tita Roberts Unavailable Kristopher Herzog DO Unavailable [phone] Kristopher Herzog DO Primary Care Provider DO Kristopher Herzog Primary Care Provider DO Kristopher Herzog Attending Provider [phone] DO Chuy Kristophre Primary Care Provider [phone] DO Kristopher Herzog Attending Provider DO Radha Verduzco Attending Provider Ly, DO Sandy L Attending Provider DO Kristopher Herzog Primary Care Provider DO Johnny Keen Emergency Provider DO Kristopher Herzog Primary Care Provider [phone] DO Chuy Kristopher Primary Care Provider [phone] Kristopher Herzog DO Unavailable [phone] Kristopher Herzog Primary Care Unavailable Ly, Sandy L Admitting Unavailable Ly, Sandy L Attending Unavailable Johnny Keen Admitting Unavailable Johnny Keen Attending Unavailable Kristopher Herzog Primary Care Unavailable Radha Verduzco Admitting Unavailable Radha Verduzco Attending Unavailable Kristopher Herzog Primary Care Unavailable Kristopher Herzog DO Primary Care Provider Radha Verduzco DO Attending Provider [phone] KRISTOPHER HERZOG Attending Unavailable KRISTOPHER HERZOG Referring Unavailable VENITA NIX Attending Unavailable DINAH, VENITA Ye Referring Unavailable DINAH, VENITA Ye Referring Unavailable MARLON BRANHAM Attending Unavailable DINAH, VENITA Ye Attending Unavailable KRISTOPHER HERZOG Attending Unavailable KRISTOPHER HERZOG Referring Unavailable KRISTOPHER HERZOG Attending Unavailable KRISTOPHER HERZOG Referring Unavailable DINAH, VENITA Ye Referring Unavailable DINAH, VENITA Ye Referring Unavailable KRISTOPHER HERZOG Attending Unavailable LUBA, RADHA Thurman Attending Unavailable KRISTOPHER HERZOG Attending Unavailable KRISTOPHER HERZOG Referring Unavailable ADAM SMITH Attending Unavailable MARLON BRANHAM Attending Unavailable RADHA VERDUZCO Attending Unavailable ADAM SMITH Attending Unavailable MARLON BRANHAM Attending Unavailable Medications Current Medications Medication Drug Class(es) [...] completed) Start: 02-09-2023 take 1 tablet by barry at bedtime amitriptyline (Elavil) 50 MG tablet [...] Oxide (20 sources) Vitamin C Ocuvite Active ascorbic acid 60 mg / cuprous oxide 2 mg / dl-alpha tocopheryl acetate 30 mg / lutein 6 mg / zinc oxide 15 mg oral capsule (11 sources) Vitamin C Multiple Vitamins-Minerals (Ocuvite Adult Formula) capsule as directed Orally Active balsalazide disodium 750 mg oral capsule (5 sources) Aminosalicylate Start: 08-28-19 17 take 3 capsules by mouth every twelve [...] Start: 04-29-2017 take 1 tablet by mouth in the morning citalopram (CeleXA) 20 MG tablet Indications: Depression, unspecified depression type (CMS/HCC) TAKE 1 TABLET BY MOUTH IN THE MORNING 90 tablet 3 01/27/2024 Active clobetasol propionate 0.0005 mg/mg topical ointment (20 sources) Corticosteroid Start: 06-22-2024 clobetasol (Temovate) 0.05 % ointment Indications: Atrophic vaginitis Apply topically 2 (two) times a day 15 g 1 06/22/2024 Active Start: 09-17-2023 clobetasol (Te movate) 0.05 % ointment Indications: Dermatitis Apply topically 2 (two) times a day 30 g 2 09/17/2023 Active Continuous Glucose Marine Superintendent (FreeStyle Carline 3 Hydes) device (15 sources) Start: 11-01-2024 Continuous Glu cose Marine Superintendent (FreeStyle Carline 3 Hydes) device Indications: Diabetic peripheral neuropathy associated with type 2 diabetes mellitus (CMS/HCC) , 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) USE I DEVICE CONTINUOUSLY 1 each 3 11/01/2024 Active Start: 09-06-2024 End: 09-06-2025 Continuous Glucose Marine Superintendent (FreeStyle Carline 3 Hydes) device Indications: Diabetic peripheral neuropathy associated with type 2 diabetes mellitus (CMS/HCC) , 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) 1 Device continuously 1 each 09/06/2024 09/06/2025 Active Continuous Glucose Sensor (FreeStyle Carline 3 Sensor) misc (15 sources) Start: 09-06-2024 End: 09-06-2025 Continuous Glucose Sensor (FreeStyle Carline 3 Sensor) misc Indications: Diabetic peripheral neuropathy associated with type 2 diabetes mellitus (CMS/HCC) , care home current use of insulin (CMS/HCC) 1 Device every 14 (fourteen) days 7 [...] 1 tablet by mouth every twelve hours furosemide 20 mg oral tablet (20 sources) Loop Diuretic Start: 12-22-2024 take 1 tablet by mouth once daily furosemide (Lasix) 20 MG tablet Indications: Left leg swelling TAKE 1 TABLET BY MOUTH EVERY DAY 90 tablet 1 12/22/2024 Active Start: 11-30-2024 take 1 tablet by barry th once daily furosemide (Lasix) 20 MG tablet Indications: Left leg swelling Take 1 tablet (20 mg) by mouth Daily 30 tablet 1 11/30/2024 Active Start: 06-27-2019 End: 11-22-2021 take 1 tablet [...] repeat at 3pm if swelling not improved gemfibrozil 600 mg oral tablet (5 sources) Peroxisome Proliferator Receptor alpha Agonist take 1 tablet by mouth every twelve hours HumaLOG Mix 75/25 KwikPen (5 sources) Start: hydrocortisone acetate 25 mg rectal suppository (14 sources) Corticosteroid Start: 024 End: 025 Hydrocortisone Acetate (Anusol-Hc) 25 mg suppository Active 25 MG NM Daily at bedtime 7 October 07, 2024 1:00am insulin aspart protamine, human 70 unt/ml / insulin aspart, human 30 unt/ml injectable suspension (20 sources) Insulin Analog Start: insulin aspart protamine-insulin aspart (NovoLOG MIX 70/30) (70-30) 100 UNIT/ML injection Indications: Type 2 diabetes mellitus with diabetic polyneuropathy, with long-term current use of insulin (CMS/HCC) Inject 16 Units under the skin Daily in the Morning AND 12 Units at bedtime. 26 mL 3 12/14/2024 Active Start: 10-10-2024 NovoLOG MIX 70 /30 (70-30) 100 UNIT/ML injection Indications: Type 2 diabetes mellitus with diabetic polyneuropathy, with long-term current use of insulin (CMS/HCC) INJECT 12 UNITS SUBCUTANEOUSLY TWICE A DAY [...] polyneuropathy, with long-term current use of insulin ([facility]) Inject 12 Units under the skin [...] sources) Angiotensin 2 Receptor Cortes Start: 06-29-2024 losartan (Cozaar) 50 MG tablet Indications: Primary hypertension (CMS/HCC) TAKE 1 TABLET EVERY MORNING 90 tablet 3 07/18/2024 Active Start: 07-27-2023 take 1 tablet by barry [...] Active Multiple Vitamins-Minerals ( PreserVision AREDS) tablet (20 sources) Multiple Vitamin s-Minerals (PreserVision AREDS) tablet [...] tablet (20 sources) HMG-CoA Reductase Inhibitor Start: 01-27-2024 take 1 tablet by mouth at bedtime rosuvastatin (Crestor) 20 MG tablet Indications: Mixed hyperlipidemia (CMS/HCC) Take 1 tablet (20 mg) by mouth at bedtime 90 tablet 3 01/27/2024 Active Start: 05-08-2021 End: 12-13-2022 take 1 tablet by mouth at bedtime rosuvastatin (Crestor) 20 MG tablet Indications: Mixed hyperlipidemia (CMS/HCC) Take 1 tablet (20 mg) by mouth at bedtime 90 tablet 3 01/27/2024 Active Crestor Active sulfaSALAzine 500 mg oral tablet [...] Start: 01-09-2022 take 2 tablets by mo uth three times daily sulfaSALAzine (Azulfidine) 500 MG tablet TAKE TWO (2) TABLETS BY MOUTH THREE TIMES PER DAY 12/20/2022 Active Start: 01-09-2022 take 2 tablets by mo uth every six hours sulfaSALAzine 500 MG 2 tablets Orally qid for 30 day(s) December, Active Start: 11-07-2021 take 1 tablet by barry every eight hours sulfaSALAzine 500 MG 1 tablet Orally three times a day Oct, Active Suprep Bowel Prep - (5 sources) Start: 06-26-2016 1 ml triamcinolone acetonide 40 mg/ml prefilled syringe (20 sources) Corticosteroid Start: 12-14-2024 End: 12-14-2024 triamcinolone acetonide (Kenalog-40) injection 40 mg Start: 12-14-2024 End: 12-14-2024 triamcinolone acetonide (Braxton alog-40) injection 40 mg Start: 12-14-2024 End: 12-14-2024 40 mg, Intra-articular, Once , On Thu12/14/24 at 0945, For 1 dose Start: 12-14-2024 End: 12-14-2024 40 mg, Intra-articular, Once , On Thu12/14/24 at 0945, For 1 dose Start: 10-03-2024 [...] m g December, 40 mg Start: 08-22-2019 KENALOG - 10 m g Jul, 40 mg [...] tablet 1 08/01/2024 Active Start: 11-09-2023 Warfarin (Augt oven) 3 mg tablet Active 0 PO As Directed November 09, 2023 10:08am 1.5mg on Tuesdays & Saturdays and 3mg on all other days orally as directed; [place] [facility] Start: 11-22-2021 End: 12-15-2022 Warfarin (Augtoven) 3 mg tab let Discontinued 1.5 MG [...] Mondays and Fridays, 2mg , Thu, , Thu, Thu Start: 01-21-2018 End: 11-09-2023 take 1 tablet [...] six hours as needed for pain Hydrocodone-Acetaminophen (Medford) 5-325 mg tablet Discontinued 1 TAB PO [...] 2 tablets by mouth once daily Vitamins A,C,F-Scwa-Qpphen (Preservision Areds) 7,160 unit- 113 mg-100 unit [...] 06, 2019 1:00am May 08, 2021 10:21am gabapentin 100 mg oral capsule (20 sources) Anti-epilepti c Agent Start: 08-06-2019 End: 05-08-2021 take 1 capsule by mouth once daily Gabapentin 100 mg Capsule Discontinued 100 MG PO Daily August 06, 2019 1:00am May 08, 2021 10:21am take 1 capsule by [facility] every twelve hours Gabapentin 100 MG 1 [...] Orally Once a day Active Multivitamin Tablet (8 sources) Start: 12-13-2022 End: 11-09-2023 take 1 tablet by mouth once daily Multivitamin Tablet Discontinued 1 TAB PO Daily December 13, 2022 12:00am November 09, 2023 10:07am Start: 12-13-2022 End: 11-09-2023 take 1 tablet by mouth once daily Multivitamin Tablet Discontinued 1 TAB PO Daily December 12, 2022 11:00pm November 09, 2023 9:07am nystatin [id number] unt/ml topical cream (20 sources) Polyene Antifungal [...] Problem Classification Problem Date Documented Date Episodic/Chronic Anxiety disorders (20 sources) Anxiety disorder; 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: [...] polyneuropathy] Onset: 8 Resolved: 4 02-18-2018 Chronic Disorders of lipid metabolism (20 sources) Mixed hyperlipidemia; 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: [Mixed hyperlipidemia] Onset: 5 Resolved: 4 04-21-2023 Chronic E Codes: Fall (14 sources) Fall; 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: [Unspecified fall, initial encounter] [...] pattern, unspecified headache type] 10-25-2024 Episodic Hemorrhoids (11 sources) Internal hemorrhoids; 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: [Other hemorrhoids] 06-29-2024 Episodic Immunizations and screening for infectious disease (2 sources) Needs influenza immunization; 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: [Encounter for immunization] 06-22-2024 Episodic Lymphadenitis (20 sources) Axillary lymphadenopathy; 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: [Localized enlarged lymph nodes] Onset: 3 Resolved: 4 09-08-2023 Episodic Malaise and fatigue (20 sources) Asthenia; [...] 4 09-08-2023 Chronic Other aftercare (20 sources) Long-term current use of insulin; 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: [care home (current) use of insulin] Onset: 7 06-08-2023 Episodic Other aftercare (20 sources) Drug therapy finding; 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: [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] Episodic Other aftercare (20 sources) Encounter for therapeutic drug level monitoring; 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: [Medication monitoring encounter Z51.81] Onset: 1 Resolved: 2 Episodic Other aftercare (20 sources) Long-term current use of 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; 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: [care home (current) use of 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s] Onset: 8 06-08-2023 Episodic Other aftercare (20 sources) Patient encounter status; 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: [Encounter for therapeutic drug level monitoring] Onset: 4 09-08-2023 Episodic Other connective tissue disease (20 sources) Swelling of upper limb; 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: [Other specified soft tissue disorders] 08-06-2019 Episodic Other connective tissue disease (2 sources) Pain in both feet; 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: [Pain in right foot] 08-01-2024 Episodic Other diseases of bladder and urethra (20 sources) Bladder muscle dysfunction - overactive; 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: [Overactive bladder] Chronic Other diseases of bladder and urethra (20 sources) Overactive bladder; 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: [Overactive bladder] Onset: 8 06-08-2023 Chronic Other fractures (14 sources) Closed fracture sacrum; 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: [Unspecified fracture of sacrum, initial encounter for closed fracture] 02-17-2024 Episodic Other gastrointestinal disorders (20 sources) Constipation; [...] autonomic nervous system] Chronic Other liver diseases (20 sources) Steatosis of liver; 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: [Fatty (change [...] 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: [Anesthesia of skin] 10-25-2024 Episodic Other nervous system disorders (2 sources) Numbness of lower limb ; 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: [Anesthesia of skin] 12-08-2024 Episodic Other non-traumatic joint disorders (20 sources) Arthralgia of the lower leg; 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: [Pain in left knee] Episodic Other non-traumatic joint disorders (20 sources) Hip pain; 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: [Pain in unspecified hip] 07-16-2022 Episodic Other nutritional; endocrine; and metabolic disorders (20 sources) Obese class I; 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: [Obesity, unspecified] Onset: 0 06-08-2023 Chronic Other screening for suspected conditions (not mental disorders or infectious disease) (20 sources) Prolonged QT interval; 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: [Abnormal electrocardiogram [ECG] [EKG]] Onset: 5 05-01-2018 Episodic Other skin disorders (2 sources) Callosity; 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: [Corns and callosities] 08-01-2024 Episodic Phlebitis; thrombophlebitis and thromboembolism (20 sources) 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; 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: [Chronic embolism and thrombosis of left femoral vein] Onset: 8 06-08-2023 Chronic Regional enteritis and ulcerative colitis (20 sources) Other ulcerative colitis with unspecified complications; 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: [Chronic ulcerative colitis] Onset: 9 11-23-2021 Chronic Residual codes; unclassified (20 sources) Obstructive sleep apnea syndrome; 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: [Obstructive sleep apnea (adult) (pediatric)] Onset: 5 Resolved: 4 04-21-2023 Chronic Residual codes; unclassified (20 sources) Dependence on enabling machine or device; 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: [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 machines and devices] Onset: 1 06-08-2023 Chronic Residual codes; unclassified (2 sources) Bilateral lower limb edema; 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: [Localized edema] 06-22-2024 Episodic Residual codes; unclassified (2 sources) Past history of procedure; 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: [Personal history of other medical treatment] 12-16-2024 Episodic Skin and subcutaneous tissue infections (20 sources) Cellulitis of foot; 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: [Cellulitis of right lower limb] 01-21-2018 Episodic Spondylosis; intervertebral disc disorders; other back problems (20 sources) Cervical arthritis; 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: [Unspecified inflammatory spondylopathy, cervical region] Onset: 7 Resolved: 06-19-2017 Chronic Spondylosis; intervertebral disc disorders; other back problems (20 sources) Spinal stenosis; 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: [Spinal stenosis, site unspecified] Onset: 5 08-06-2019 Episodic Sprains and strains (20 sources) Sprain of wrist; 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: [Unspecified sprain of left wrist, initial encounter] 01-03-2021 Episodic Superficial injury; contusion (20 sources) Contusion of shoulder region; 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: [Contusion of left shoulder, initial encounter] 01-03-2021 Episodic Urinary tract infections (14 sources) Acute urinary tract infection; 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: [Urinary tract infection, site not specified] 02-17-2024 Episodic Past or Other Problems Problem Classification Problem Date Documented Da te Episodic/Chronic Abdominal pain (20 sources) Abdominal pain; 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: [Unspecified abdominal pain] Onset: 12-03-2023 Resolved: 02-16-2024 11-22-2021 Episodic Acquired foot deformities (20 sources) Acquired hallux valgus; 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: [Hallux valgus (acquired), right foot] Onset: 01-31-2020 Resolved: 09-08-2023 09-08-2023 Chronic Acquired foot deformities (20 sources) Acquired hammer toe of left foot; 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: [Other hammer toe(s) (acquired), left foot] Onset: 04-24-2021 Resolved: 09-08-2023 09-08-2023 Chronic Allergic reactions (20 sources) Acute dermatitis; 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: [Dermatitis, unspecified] Onset: 06-08-2023 Resolved: 09-08-2023 09-08-2023 Episodic Deficiency and other anemia (20 sources) Iron deficiency anemia; 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: [Iron deficiency anemia, unspecified] Onset: 12-03-2023 Resolved: 03-09-2024 03-09-2024 Episodic Diabetes mellitus without complication (20 sources) Diabetes mellitus; 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: [Type 2 diabetes mellitus without complications] Onset: 06-08-2023 Resolved: 09-08-2023 01-27-2018 Chronic Joint disorders and dislocations; trauma-related (20 sources) Traumatic arthropathy; 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: [Traumatic arthropathy, unspecified site] Onset: 04-09-2020 Resolved: 09-08-2023 09-08-2023 Chronic Mood disorders (2 sources) Mood disorders Onset: 01-09-2025 01-09-2025 Nutritional deficiencies (20 sources) Vitamin D deficiency; 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: [Vitamin D deficiency, unspecified] Onset: 06-15-2015 Resolved: 03-09-2024 06-08-2023 Chronic Other circulatory disease (20 sources) Vasculitis; 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: [Arteritis, unspecified] Onset: 04-24-2021 Resolved: 09-08-2023 09-08-2023 Chronic Other connective tissue disease (20 sources) Swelling of left lower limb; 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: [Other specified soft tissue disorders] Onset: 06-08-2023 Resolved: 03-09-2024 06-08-2023 Episodic Other connective tissue disease (20 sources) Disorder of soft tissue; 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: [Soft tissue disorder, unspecified] Onset: 08-22-2019 Resolved: 09-08-2023 09-08-2023 Episodic Other connective tissue disease (20 sources) Pain of right lower leg; 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: [Pain in right lower leg] Onset: 12-03-2023 Resolved: 03-09-2024 03-09-2024 Episodic Other diseases of veins and lymphatics (20 sources) Venous hypertension of lower limb; 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: [Chronic venous hypertension (idiopathic) without complications of left lower extremity] Onset: 04-23-2021 Resolved: 09-08-2023 09-08-2023 Chronic Other diseases of veins and lymphatics (20 sources) Venous insufficiency of leg; 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: [Venous insufficiency (chronic) (peripheral)] Onset: 04-24-2021 Resolved: 03-09-2024 06-08-2023 Episodic Other diseases of veins and lymphatics (19 sources) Peripheral venous insufficiency; 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: [Venous insufficiency (chronic) (peripheral)] Onset: 04-19-2018 04-21-2023 Episodic Other diseases of veins and lymphatics (10 sources) Vascular insufficiency; 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: [Venous insufficiency (chronic) (peripheral)] Onset: 04-19-2018 12-14-2024 Episodic Other fractures (1 source) Other fracture of sacrum, initial encounter for closed fracture; 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: [Other fracture of sacrum, initial encounter for closed fracture] Onset: 02-09-2024 Episodic Other fractures (1 source) Unspecified fracture of sacrum, initial encounter for closed fracture; 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: [Unspecified fracture of sacrum, initial encounter for closed fracture] Onset: 02-09-2024 Episodic Other hereditary and degenerative nervous system conditions (20 sources) Multisystem degeneration of autonomic nervous system; 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: [Multi-system degeneration of the autonomic nervous system] Onset: 01-04-2018 Resolved: 09-08-2023 09-08-2023 Chronic Other inflammatory condition of skin (20 sources) Erythema nodosum; 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: [Erythema nodosum] Onset: 06-08-2023 Resolved: 09-08-2023 09-08-2023 Episodic Other lower respiratory disease (20 sources) Dyspnea on exertion; 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: [Other forms of dyspnea] Onset: 04-23-2021 Resolved: 09-08-2023 09-08-2023 Episodic Other nervous system disorders (20 sources) Peripheral nerve disease ; 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: [Polyneuropathy, unspecified] Onset: 06-08-2023 Resolved: 09-08-2023 09-08-2023 Chronic Other nervous system disorders (20 sources) Carpal tunnel syndrome; 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: [Carpal tunnel syndrome, unspecified upper limb] Onset: 06-08-2023 Resolved: 09-08-2023 09-08-2023 Chronic Other nervous system disorders (20 sources) Inflammatory and toxic neuropathy; 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: [Polyneuropathy due to other toxic agents] Onset: 06-26-2016 Resolved: 09-08-2023 09-08-2023 Chronic Other non-traumatic joint disorders (20 sources) Pain in left knee; 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: [Pain in joint, lower leg] Onset: 08-22-2019 Resolved: 09-08-2023 09-08-2023 Episodic Other non-traumatic joint disorders (20 sources) Pain in wrist; 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: [Pain in [...] nutritional; endocrine; and metabolic disorders (20 sources) Obesity caused by energy imbalance; 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: [Other obesity due to excess calories] Onset: 04-24-2020 Resolved: 09-08-2023 09-08-2023 Chronic Phlebitis; thrombophlebitis and thromboembolism (20 sources) Deep venous thrombosis; 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: [Acute embolism and thrombosis of unspecified deep veins of unspecified lower extremity] Onset: 04-23-2021 Resolved: 09-08-2023 09-08-2023 Episodic Pulmonary heart disease (20 sources) H/O: pulmonary embolus; 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: [Personal history of pulmonary embolism] Onset: 04-21-2023 Resolved: 09-08-2023 09-08-2023 Episodic Residual codes; unclassified (20 sources) Dependence on continuous positive airway pressure ventilation; 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: [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 machines and devices] Onset: 06-08-2023 Resolved: 09-08-2023 09-08-2023 Chronic Results Test Name Value Interpretation Reference Range Facility ALL BASIC METABOLIC PANELon 01-05-2025 Anion gap [Moles/Vol] 12.2 mmol/L [facility] Calcium [Mass/Vol] 8.9 mg/dL 8.5 - 10. 1 mg/dL [facility] Chloride [Moles/Vol] 105 mmol/L 98 - 10 7 mmol/L [facility] CO2 [Moles/Vol] 27 mmol/L 21.0 - 32.0 mmol/L [facility] Creatinine [Mass/Vol] 1.01 mg/dL 0.55 - 1.02 mg/dL [facility] GFR/1.73 sq M.predicted CKD-EPI (S/P/Bld) [Vol rate/Area] >60 >=60 mL/min/1.7 3m 2 [facility] Glucose [Mass/Vol] 143 mg/dL High 74 - 106 mg/dL [facility] Interpretation and review of laboratory results Abnormal [facility] Potassium [Moles/Vol] 4.2 mmol/L 3.5 - 5.1 mmol/L [facility] Sodium [Moles/Vol] 140 mmol/L 136 - 145 mmol/L [facility] TBH EGFR-NON AF MALDIVIAN 54 Low >=60 mL/min/1.7 3m 2 [employer] [facility] Urea nitrogen [Mass/Vol] 27 mg/dL High 7.0 - 18.0 mg/dL [facility] Urea nitrogen/Creatinine [Mass ratio] 26.7 mg/mg [facility] MM diagnostic mammo BI w/CAD on 12-07-2024 MM diagnostic mammo BI w/CAD [facility] [address] [place] [address] Mammography Report Signed Patient: Nicol Frances MR#: [id number] [birth year] : 1950 Acct:[id number] Age/Sex: 74 / F Adm Date: 12/07/24 Loc: [place] Room: Type: [facility] Attending Dr: Radha Verduzco DO Ordering Provider: Radha Verduzco DO Date of Service: 12/07/24 Procedure(s): MM diagnostic mammo BI w/CAD Accession Number(s): ([id number]) MM/MM diagnostic mammo BI w/CAD: Yrly mamms w/Lt. axillary US Copies to: DO Kristopher Carvalho DO CLINICAL DATA: Follow-up for lymph nodes. Bilateral DIAGNOSTIC MAMMOGRAM - WITH TOMOSYNTHESIS AND CAD COMPARISON:Mammograms dating back to 2019 Tomosynthesis imaging was obtained using low-dose digital technique. This examination was reviewed with the aid of CAD. FINDINGS: The breasts are composed of scattered fibroglandular densities. The prominent lymph nodes involving the axillary regions have resolved. No new areas of architectural distortion, worrisome masses or suspicious microcalcifications. MM/MM diagnostic mammo BI w/CAD IMPRESSION: NO MAMMOGRAPHIC EVIDENCE OF MALIGNANCY. ROUTINE FOLLOW-UP IS RECOMMENDED IN ONE YEAR. RESULT CODE: 1 Negative DENSITY CODE: 2 (approximately 25-50% glandular) There are scattered areas of fibroglandular density. FOLLOW UP: 1YR The false-negative rate of mammography is approximately 10-percent. Management of a palpable abnormality must be based on clinical grounds. Patient was entered into a reminder system with a target due date for the next mammogram. Impression dictated by: Noe De Leon Jr., D.O.12/07/2024 9:30 AM Dictation Location: [facility] Dictated By: Noe De Leon Jr, DO 12/07/2422 Signed By: 12/07/24 0930 Normal [facility] Mammography reportOrdered By : Noe De Leon on 12-07-[address] [facility] [address] [place] [address] Mammography Report Signed Patient: Nicol Frances MR#: [id number] : 1950 Acct:[id number] Age/Sex: 74 / F Adm Date: 5 Loc: [place] Room: Type: [facility] Attending Dr: Radha Verduzco DO Ordering Provider: Radha Verduzco DO Date of Service: 12/07/24 Procedure(s): MM diagnostic mammo BI w/CAD Accession Number(s): ([id number]) MM/MM diagnostic mammo BI w/CAD: Yrly mamms w/Lt. axillary US Copies to: DO Kristopher Carvalho DO~ CLINICAL DATA: Follow-up for lymph nodes. Bilateral DIAGNOSTIC MAMMOGRAM - WITH TOMOSYNTHESIS AND CAD COMPARISON:Mammograms dating back to 2019 Tomosynthesis imaging was obtained using low-dose digital technique. This examination was reviewed with the aid of CAD. FINDINGS: The breasts are composed of scattered fibroglandular densities. The prominent lymph nodes involving the axillary regions have resolved. No new areas of architectural distortion, worrisome masses or suspicious microcalcifications. MM/MM diagnostic mammo BI w/CAD IMPRESSION: NO MAMMOGRAPHIC EVIDENCE OF MALIGNANCY. ROUTINE FOLLOW-UP IS RECOMMENDED IN ONE YEAR. RESULT CODE: 1 Negative DENSITY CODE: 2 (approximately 25-50% glandular) There are scattered areas of fibroglandular density. FOLLOW UP: 1YR The false-negative rate of mammography is approximately 10-percent. Management of a palpable abnormality must be based on clinical grounds. Patient was entered into a reminder system with a target due date for the next mammogram. Impression dictated by: Noe De Leon Jr., D.OOmari12/07/2024 9:30 AM Dictation Location: [id number] Dictated By: Noe De Leon Jr, DO 12/07/2422 Signed By: 12/07/24929 [facility] No Panel Informationon 11-30 Bedside INR (LAB) 2.[address] [facility] [address] ABDOMEN PELVIS W IV CONTR Juanpablo [...] diverticulosis without diverticulitis. ELECTRONICALLY SIGNED BY: Maurice Egan DO Normal Not Available VASC US LOWER [...] Panel Informationon 11-02 Bedside INR (LAB) 2.[address] [facility] [address] HEAD WO IV CONTRASTon CT HEAD [...] Panel Informationon 10-05 Bedside INR (LAB) 2.5 [facility] No Panel Informationon 09-09 Bedside INR (LAB) 2.3 [facility] No Panel Informationon 08-03 Bedside INR (LAB) 2.0 [facility] No Panel Informationon 07-04 Bedside INR (LAB) 2.2 [facility] Comprehensive metabolic pane sujey 06-18-2024 Albumin [Mass/Vol] 4.1 g/dL 3.8 - 4.8 g/dL [facility] ALP [Catalytic activity/Vol] 53 U/L [facility] ALT [Catalytic activity/Vol] 12 U/L [facility] AST [Catalytic activity/Vol] 16 U/L [facility] Bilirubin [Mass/Vol] 0.2 mg/dL 0.0 - 1 .2 mg/dL [facility] Calcium [Mass/Vol] 9.6 mg/dL 8.7 - 10. 3 mg/dL [facility] Chloride [Moles/Vol] 104 mmol/L 96 - 10 6 mmol/L [facility] CO2 [Moles/Vol] 22 mmol/L 20 - 29 mmol/L [facility] Creatinine [Mass/Vol] 0.93 mg/dL 0.57 - 1.00 mg/dL [facility] GFR/1.73 sq M.predicted among non-blacks MDRD (S/P/Bld) [Vol rate/Area] 65 mL/min/{1.73_m2} 59 - PINF mL/min/1.7 3 [facility] Globulin (S) [Mass/Vol] 2.7 g/dL 1.5 - 4.5 g/dL [facility] Glucose [Mass/Vol] 126 mg/dL High 70 - 99 mg/dL [facility] Potassium [Moles/Vol] 4.8 mmol/L 3.5 - 5.2 mmol/L [facility] Protein [Mass/Vol] 6.8 g/dL 6.0 - 8.5 g/dL [facility] Sodium [Moles/Vol] 139 mmol/L 134 - 144 mmol/L [facility] Urea nitrogen [Mass/Vol] 18 mg/dL 8 - 27 mg/dL [facility] Urea nitrogen/Creatinine [Mass ratio] 19 mg/mg 12 - 28 [facility] Hemoglobin a1c with eagon Average glucose Estimated from glycated hemoglobin (Bld) [Mass/Vol] 163 mg/dL [facility] HbA1c (Bld) [Mass fraction] 7.3 % High 4.8 - 5.6 % [facility] Comment on above: Prediabetes: 5.7 - 6 .4 Diabetes: >6.4 Glycemic control for adults with diabetes: <7.0 Lipid 1996 panelon Cholesterol [Mass/Vol] 140 mg/dL 100 - 199 mg/dL [facility] Cholesterol in HDL [Mass/Vol] 45 mg/dL 39 - PINF mg/dL [facility] Cholesterol in LDL [Mass/Vol] 70 mg/dL 0 - 99 mg/dL [facility] Cholesterol in VLDL [Mass/Vol] 25 mg/dL 5 - 40 mg/dL [facility] Triglyceride [Mass/Vol] 143 mg/dL 0 - 149 mg/dL [facility] No Panel Informationon 06-18 Interpretation and review of laboratory results Abnormal [facility] Performed at: - [address] [id number] Plant And Instrument Engineer: Juan Dunbar PhD, Phone: [phone] [facility] Specimen Status Reporton Clindamycin Disk diffusion (KB) [Susc] Comment [facility] Comment on above: Elena Yan CMP14 D efault Elena Yan CMP14 Default A hand-written panel/profile was received from your office. In accordance with the [facility] Ambiguous Test Code Policy dated February 2003, we have completed your order by using the closest currently or formerly recognized AMA panel. We have assigned Comprehensive Metabolic Panel (14), Test Code #231174 to this request. If this is not the testing you wished to receive on this specimen, please contact the [facility] Client [facility]Technical Services Department to clarify the test order. We appreciate your business. [employer]tan [employer]brev [employer] Default Ambtan Abbrev [employer] Default A hand-written panel/profile was received from your office. In accordance with the [facility] Ambiguous Test Code Policy dated February 2003, we have completed your order by using the closest currently or formerly recognized AMA panel. We have assigned Lipid Panel, Test Code #877798 to this request. If this is not the testing you wished to receive on this specimen, please contact the [facility] Department to clarify the test order. We appreciate your business. No Panel Informationon 06-06 Bedside INR (LAB) 2.1 [facility] No Panel Informationon 05-09 Bedside INR (LAB) 2.5 [facility] No Panel Informationon 04-14 Bedside INR (LAB) 2.5 [facility] No Panel Informationon 03-14 Bedside INR (LAB) 2.2 [facility] No Panel Informationon 02-16 Bedside INR (LAB) 2.1 [facility] Activated partial thrombopla stin time (aPTT) in platelet poor plasma by coagulation aOrdered By: Johnny Keen on 02-09-2024 aPTT Coag (PPP) [Time] 37.1 s High 25.1-36.5 [facility] Comment on above: A hematocrit value g reater than 55% may lead to inaccurate results in coagulation testing. Patients having hematocrit values >55% require a special collection tube for coagulation studies. Please contact the laboratory at [phone] for redraw instructions. Automated basophil %Ordered By: Johnny Keen on 02-09-2024 Basophils/100 WBC (Bld) 0.6 % Normal . [facility] Comment on above: Performed By: #### P T, PTT, BMP, CBC #### [facility] [address] [place] [address] Automated basophil countOrde red By: Johnny Keen on 02-09-2024 Basophils (Bld) [#/Vol] 0.0 10*3/uL Normal 0.0-0.2 [facility] Comment on above: Result Comment: PERF ORMED BY: [place] [address] PATHOLOGIST OUTBOARD TECHNICIAN GLENYS BARRON M.D. Performed By: #### P T, PTT, BMP, CBC #### [address] Automated blood monocyte cou ntOrdered By: Johnny Keen on 02-09-2024 Monocytes (Bld) [#/Vol] 0.5 10*3/uL Normal 0.0-0.8 [facility] Comment on above: Performed By: #### P T, PTT, BMP, CBC #### [address] Automated eosinophil %Ordere d By: Johnny Keen on 02-09-2024 Eosinophils/100 WBC (Bld) 0.4 % Normal . [facility] Comment on above: Performed By: #### P T, PTT, BMP, CBC #### [address] Automated eosinophil countOr dered By: Johnny Keen on 02-09-2024 Eosinophils (Bld) [#/Vol] 0.0 10*3/uL Normal 0.0-0.45 [facility] Comment on above: Performed By: #### P T, PTT, BMP, CBC #### [address] Automated epithelial cells c ount in urine sediment (number/area)Ordered By: Johnny Keen on 02-09-2024 Epithelial cells Auto (Urine sed) [#/Area] 10-19 [HPF] High 0-2 [facility] Automated monocyte %Ordered By: Johnny Keen on 02-09-2024 Monocytes/100 WBC (Bld) 8.0 % Normal . [facility] Comment on above: Performed By: #### P T, PTT, BMP, CBC #### [facility] [address] [place] [address] Automated neutrophil %Ordere d By: Johnny Keen on 02-09-2024 Neutrophils/100 WBC (Bld) 73.4 % Normal . [facility] Comment on above: Performed By: #### P T, PTT, BMP, CBC #### [address] Bacteria [Presence] in Urine by AutomatedOrdered By: Johnny Keen on 02-09-2024 Bacteria Auto Ql (U) 1+ [HPF] High None Seen [facility] Basic Metabolic Panelon 01-22 Creatinine Clr Calc Pharmacy 48.37 Normal [facility] Comment on above: Result Comment: PERF ORMED BY: [place] [address] PATHOLOGIST OUTBOARD TECHNICIAN GLENYS BARRON M.D. Performed By: #### P T, PTT, BMP, CBC #### [address] GFR/1.73 sq M.predicted MDRD (S/P/Bld) [Vol rate/Area] 59.856 mL/min/{1.73_m2} Normal [facility] Comment on above: Performed By: #### P T, PTT, BMP, CBC #### [address] Bilirubin Test strip Ql (U)O rdered By: Johnny Keen on 02-09-2024 Bilirubin Ql (U) Negative Negative [facility] CT head/brain wo conon 02-08 CT head/brain wo [facility] [place] [address] [place] [address] CT Scan Report Signed Patient: Nicol Frances MR#: [id number] 94 : 1950 Acct:[id number] Age/Sex: 73 / F ADM Date: 02/09/24 Loc: ER Room: Type: DEP ER Attending Dr: Copies to: Johnny Keen DO Ordering Provider: Johnny eKen DO Date of Service: 02/09/24 CT/CT cervical spine wo con: fall ([id number]) CT/CT head/brain wo con: fall CLINICAL DATA: [...] Denise Wallace M.D.02/09/2024 11:26 AM Dictation Location: [place] [address] Transcribed By: JAGRUTI 02/09/24 1126 Dictated By: Denise Wallace MD 02/09/24 1114 Signed By: 02/09/24 1126 Normal [facility] CT lumbar spine wo [place] CT lumbar spine wo con [facility] [place] [address] [place] [address] CT Scan Report Signed Patient: Nicol Frances MR#: [id number] 94 : 1950 Acct:[id number] Age/Sex: 73 / F ADM Date: 02/09/24 Loc: ER Room: Type: [facility] ER Attending Dr: Copies to: [...] Denise Wallace M.D.02/09/2024 11:39 AM Dictation Location: [place] [address] Transcribed By: JAGRUTI 02/09/24 1139 Dictated By: Denise Wallace MD 02/09/24 1126 Signed By: 02/09/24 1139 Normal [facility] Calcium [Mass/volume] in Ser um or PlasmaOrdered By: Johnny eKen on 02-09-2024 Calcium [Mass/Vol] 8.8 mg/dL Normal 8.6-10.3 [facility] Comment on above: Performed By: #### P T, PTT, BMP, CBC #### [address] Carbon dioxide, total [Moles /volume] in Serum or PlasmaOrdered By: Johnny Keen on 02-09-2024 CO2 [Moles/Vol] 22.0 mmol/L Normal 21.0-31.0 [facility] Comment on above: Performed By: #### P T, PTT, BMP, CBC #### [address] Casts typing in urine sedime nt by light microscopyOrdered By: Johnny Keen on 02-09-2024 Casts LM Nom (Urine sed) None seen [LPF] None Seen [facility] Chloride [Moles/volume] in S remi or PlasmaOrdered By: Johnny Keen on 02-09-2024 Chloride [Moles/Vol] 103 mmol/L Normal 98-107 [facility] Comment on above: Performed By: #### P T, PTT, BMP, CBC #### [address] Color of Urine by AutoOrdere d By: Johnny Keen on 02-09-2024 Color (U) Light-yellow Normal Yellow [facility] Comment on above: Order Comment: Name Collection Type:: Clean-Voided Midstream Performed By: #### C UU, ADDONUAPLUS #### [address] Complete Blood Count Auto Di ffon 02-09-2024 Mean Corpuscular HGB Conc 34.2 g/dL Normal 32.0-35.0 [facility] Comment on above: Performed By: #### P T, PTT, BMP, CBC #### [address] Monocytes/100 WBC (Bld) 17.76 % Normal 0.00-20.00 [facility] Comment on above: Performed By: #### P T, PTT, BMP, CBC #### [address] NRBC% 0.0 /100{WBC} Normal 0-0.5 [facility] Comment on above: Performed By: #### P T, PTT, BMP, CBC #### [address] Creatinine [Mass/volume] in Serum or PlasmaOrdered By: Johnny Keen on 02-09-2024 Creatinine [Mass/Vol] 1.00 mg/dL Normal 0.60-1.20 [facility] Comment on above: Performed By: #### P T, PTT, BMP, CBC #### [facility] [address] [place] [address] [place] Dipstick and Microscopicon 0 02-09-2024 Bacteria,Urine 1+ High None Seen [facility] Comment on above: Order Comment: Name Collection Type:: Clean-Voided Midstream Performed By: #### C UU, ADDONUAPLUS #### [place] [address] [place] Bilirubin,Urine Negative Normal Negative [facility] Comment on above: Order Comment: Name Collection Type:: Clean-Voided Midstream Performed By: #### C UU, ADDONUAPLUS #### [place] [address] [place] Glucose Ql (U) Normal Normal Normal [facility] Comment on above: Order Comment: Name Collection Type:: Clean-Voided Midstream Performed By: #### C UU, ADDONUAPLUS #### [place] [address] [place] Hyaline Casts,Urine None Seen Normal 0-8 [facility] Comment on above: Order Comment: Name Collection Type:: Clean-Voided Midstream Performed By: #### C UU, ADDONUAPLUS #### [place] [address] [place] Nitrite,Urine Negative Normal Negative [facility] Comment on above: Order Comment: Name Collection Type:: Clean-Voided Midstream Performed By: #### C UU, ADDONUAPLUS #### [place] [address] [place] Occult Blood,Urine 1+ High Negative [facility] Comment on above: Order Comment: Name Collection Type:: Clean-Voided Midstream Result Comment: PERF ORMED BY: [address] [address] PATHOLOGIST OUTBOARD TECHNICIAN GLENYS BARRON M.D. Performed By: #### C UU, ADDONUAPLUS #### [address] Other Casts,Urine None Seen Normal None Seen [facility] Comment on above: Order Comment: Name Collection Type:: Clean-Voided Midstream Result Comment: PERF ORMED BY: [place] [address] PATHOLOGIST OUTBOARD TECHNICIAN GLENYS BARRON M.D. Performed By: #### C UU, ADDONUAPLUS #### [address] Protein,Urine Negative Normal Negative [facility] Comment on above: Order Comment: Name Collection Type:: Clean-Voided Midstream Performed By: #### C UU, ADDONUAPLUS #### [address] RBC,Urine None Seen Normal 0-4 [facility] Comment on above: Order Comment: Name Collection Type:: Clean-Voided Midstream Performed By: #### C UU, ADDONUAPLUS #### [address] Specificy [place],Urine 1.014 Normal 1.001-1.03 0 [facility] Comment on above: Order Comment: Name Collection Type:: Clean-Voided Midstream Performed By: #### C UU, ADDONUAPLUS #### [address] Squamous Epithelial Cell,Urine 10-19 High 0-2 [facility] Comment on above: Order Comment: Name Collection Type:: Clean-Voided Midstream Performed By: #### C UU, ADDONUAPLUS #### [address] Urobilinogen,Urine Normal Normal Normal [facility] Comment on above: Order Comment: Name Collection Type:: Clean-Voided Midstream Performed By: #### C UU, ADDONUAPLUS #### [facility] [address] [place] [address] WBC,Urine 20-49 High 0-4 [facility] Comment on above: Order Comment: Name Collection Type:: Clean-Voided Midstream Performed By: #### C UU, ADDONUAPLUS #### [facility] [address] [place] [address] ECG 12 lead ECGon 02-09-2024 ECG 12 lead ECG [facility] [place] [address] [place] [address] Electrocardiograph Report Signed Patient: Nicol Frances MR#: [id number] 94 : 1950 Acct:[id number] Age/Sex: 73 / F ADM Date: 02/09/24 Loc: ER Room: Type: [facility] ER Attending Dr: Ordering Provider: [...] was found Confirmed by Johnny Keen DO ([id number]) on 02/09/2024 3:32:04 PM Referred By: Electronically Signed By:Johnny Keen DO Transcribed By: MUS Signed By Johnny Keen DO 4 1532 Normal [facility] Erythrocyte distribution wid th [Ratio] by Automated countOrdered By: Johnny Keen on 02-09-2024 Erythrocyte distribution width (RBC) [Ratio] 14.1 % Normal 11.9-15.3 [facility] Comment on above: Performed By: #### P T, PTT, BMP, CBC #### [facility] [address] [place] [address] Erythrocytes [#/area] in Uri ne sediment by Automated countOrdered By: Johnny Keen on 02-09-2024 RBC Auto (Urine sed) [#/Area] None seen [HPF] 0-4 [facility] Erythrocytes [#/volume] in B lood by Automated countOrdered By: Johnny Keen on 02-09-2024 RBC (Bld) [#/Vol] 3.73 10*6/uL Normal 3.60-5.00 [facility] Comment on above: Performed By: #### P T, PTT, BMP, CBC #### [facility] [address] Glucose [Mass/volume] in Ser um or PlasmaOrdered By: Johnny Keen on 02-09-2024 Glucose [Mass/Vol] 218 mg/dL High 70-100 [facility] Comment on above: ADA recommended refe rence rangeRandom Glucose Reference Range is dependent on time and content of last meal. Glucose of more than 200 mg/dL in a nonstressed, ambulatory subject supports the diagnosis of Diabetes Mellitus. Result Comment: [place] om Glucose Reference Range is dependent on time and content of last meal. Glucose of more than 200 mg/dL in a nonstressed, ambulatory subject supports the diagnosis of Diabetes Mellitus. ADA recommended reference range Performed By: #### P T, PTT, BMP, CBC #### [facility] [address] Glucose [Mass/volume] in Uri ne by Test stripOrdered By: Johnny Keen on 02-09-2024 Glucose Test strip (U) [Mass/Vol] Normal mg/dL Normal [facility] Hematocrit [Volume Fraction] of Blood by Automated countOrdered By: Johnny Keen on 02-09-2024 Hematocrit (Bld) [Volume fraction] 36.4 % Normal 34.0-46.4 [facility] Comment on above: Performed By: #### P T, PTT, BMP, CBC #### [facility] [address] Hemoglobin Test strip Ql (U) Ordered By: Johnny Keen on 02-09-2024 Hemoglobin Ql (U) 1+ High Negative [facility] Hemoglobin [Mass/volume] in BloodOrdered By: Johnny Keen on 02-09-2024 Hemoglobin (Bld) [Mass/Vol] 12.4 g/dL Normal 11.8-15.4 [facility] Comment on above: Performed By: #### P T, PTT, BMP, CBC #### [facility] [address] INR in Platelet poor plasma by Coagulation assayOrdered By: Johnny Keen on 02-09-2024 INR Coag (PPP) [Relative time] 1.8 {INR} Normal [facility] Comment on above: INR Therapeutic Rang e [...] By: #### P T, PTT, BMP, CBC ####[facility] [address] Ketones [Presence] in Urine by Test stripOrdered By: Johnny Keen on 02-09-2024 Ketones Ql (U) Negative Normal Negative [facility] Comment on above: Order Comment: Name Collection Type:: Clean-Voided Midstream Performed By: #### C UU, ADDONUAPLUS #### [facility] [address] Laboratory - UrinalysisOrder ed By: Johnny Keen on 02-09-2024 Hyaline casts LM Ql (Urine sed) None seen [LPF] 0-8 [facility] Leukocyte esterase [Presence ] in Urine by Test stripOrdered By: Johnny Keen on 02-09-2024 Leukocyte esterase Test strip Ql (U) 4+ High Negative [facility] Comment on above: Order Comment: Name Collection Type:: Clean-Voided Midstream Performed By: #### C UU, ADDONUAPLUS #### [facility] [address] [place] [address] [place] Leukocytes [#/area] in Urine sediment by Automated countOrdered By: Johnny Keen on 02-09-2024 WBC Auto (Urine sed) [#/Area] 20-49 [HPF] High 0-4 [facility] Leukocytes [#/volume] correc darío for nucleated erythrocytes in Blood by Automated counOrdered By: Johnny Keen on 02-09-2024 WBC corrected for nucl RBC Auto (Bld) [#/Vol] 6.0 10*3/uL 3.8-11.6 [facility] Leukocytes [#/volume] in Blo od by Automated countOrdered By: Johnny Keen on 02-09-2024 WBC (Bld) [#/Vol] 6.0 10*3/uL Normal 3.8-11.6 [facility] Comment on above: Performed By: #### P T, PTT, BMP, CBC #### [facility] [address] [place] [address] [place] Lymphocytes [#/volume] in Bl ood by Automated countOrdered By: Johnny Kene on 02-09-2024 Lymphocytes (Bld) [#/Vol] 1.1 10*3/uL Normal 1.00-4.8 [facility] Comment on above: Performed By: #### P T, PTT, BMP, CBC #### [facility] [address] [place] [address] [place] Lymphocytes/100 leukocytes i n Blood by Automated countOrdered By: Johnny Keen on 02-09-2024 Lymphocytes/100 WBC (Bld) 17.6 % Normal . [facility] Comment on above: Performed By: #### P T, PTT, BMP, CBC #### [facility] [address] [place] [address] [place] MCH [Entitic mass] by Automa darío countOrdered By: Johnny Keen on 02-09-2024 MCH (RBC) [Entitic mass] 33.4 pg Normal 24.7-34.3 [facility] Comment on above: Performed By: #### P T, PTT, BMP, CBC #### [facility] [address] [place] [address] MCHC Auto (RBC) [Mass/Vol]Or dered By: Johnny Keen on 02-09-2024 MCHC (RBC) [Mass/Vol] 34.2 g/dL 32.0-35.0 [facility] MCV [Entitic volume] by Auto mated countOrdered By: Johnny Keen on 02-09-2024 MCV (RBC) [Entitic vol] 97.6 fL Normal 80-100 [facility] Comment on above: Performed By: #### P T, PTT, BMP, CBC #### [facility] [address] [place] [address] Monocyte distribution width [Entitic volume] in Blood by AutomatedOrdered By: Johnny Keen on 02-09-2024 Monocyte distribution width Auto (Bld) [Entitic vol] 17.76 % 0.00-20.00 [facility] Neutrophils [#/volume] in Bl ood by Automated countOrdered By: Johnny Keen on 02-09-2024 Neutrophils (Bld) [#/Vol] 4.4 10*3/uL Normal 1.8-7.7 [facility] Comment on above: Performed By: #### P T, PTT, BMP, CBC #### [facility] [address] [place] [address] Nitrite Test strip Ql (U)Ord ered By: Johnny Keen on 02-09-2024 Nitrite Ql (U) Negative Negative [facility] No Panel InformationOrdered By: Johnny Keen on 02-09-2024 Estimated GFR (CKD-EPI) 59.856 mL/Min [facility] Creatinine Clearance (Chem 48.37 [facility] Nucleated erythrocytes [Pres ence] in Blood by Automated countOrdered By: Johnny Keen on 02-09-2024 Nucleated RBC Auto Ql (Bld) 0.0 /100{WBC} 0-0.5 [facility] Partial Thromboplastin Timeo n 02-09-2024 aPTT Coag (Bld) [Time] 37.1 s High 25.1-36.5 Th e [facility] Comment on above: Result Comment: A he matocrit value greater than 55% may lead to inaccurate results in coagulation testing. Patients having hematocrit values >55% require a special collection tube for coagulation studies. Please contact the laboratory at [phone] for redraw instructions. PERFORMED BY: [place] [address] PATHOLOGIST OUTBOARD TECHNICIAN GLENYS BARRON M.D. Performed By: #### P T, PTT, BMP, CBC ####[facility] [id number] [place] [address] Platelet mean volume [Entiti c volume] in Blood by Automated countOrdered By: Johnny Keen on 02-09-2024 Platelet mean volume (Bld) [Entitic vol] 8.4 fL Normal 6.3-10.7 [facility] Comment on above: Performed By: #### P T, PTT, BMP, CBC #### [facility] [address] [place] [address] Platelets [#/volume] in Bloo d by Automated countOrdered By: Johnny Keen on 02-09-2024 Platelets (Bld) [#/Vol] 178 10*3/uL Normal 150-450 [facility] Comment on above: Performed By: #### P T, PTT, BMP, CBC #### [facility] [address] [place] [address] [place] Potassium [Moles/volume] in Serum or PlasmaOrdered By: Johnny Keen on 02-09-2024 Potassium [Moles/Vol] 3.9 mmol/L Normal 3.5-5.1 [facility] Comment on above: Performed By: #### P T, PTT, BMP, CBC #### [address] Protein Test strip (U) [Mass /Vol]Ordered By: Johnny Keen on 02-09-2024 Protein (U) [Mass/Vol] Negative Negative [facility] Prothrombin time (PT)Ordered By: Johnny Keen on 02-09-2024 PT Coag (PPP) [Time] 20.6 s High 9.0-12.9 [facility] Comment on above: A hematocrit value g reater than 55% may lead to inaccurate results in coagulation testing. Patients having hematocrit values >55% require a special collection tube for coagulation studies. Please contact the laboratory at [phone] for redraw instructions. Result Comment: A he matocrit value greater than 55% may lead to inaccurate results in coagulation testing. Patients having hematocrit values >55% require a special collection tube for coagulation studies. Please contact the laboratory at [phone] for redraw instructions. Performed By: #### P T, PTT, BMP, CBC ####[facility] [address] Serum or plasma anion gap de terminationOrdered By: Johnny Keen on 02-09-2024 Anion gap [Moles/Vol] 12.9 mmol/L Normal 6.0-15.0 [facility] Comment on above: Performed By: #### P T, PTT, BMP, CBC #### [facility] [address] Sodium [Moles/volume] in Ser um or PlasmaOrdered By: Johnny Keen on 02-09-2024 Sodium [Moles/Vol] 134 mmol/L Low 136-145 [facility] Comment on above: Performed By: #### P T, PTT, BMP, CBC #### [facility] [address] Specific gravity Test strip (U) [Rel density]Ordered By: Johnny Keen on 02-09-2024 Specific gravity (U) [Rel density] 1.014 1.001-1.03 0 [facility] Urea nitrogen [Mass/volume] in Serum or PlasmaOrdered By: Johnny Keen on 02-09-2024 Urea nitrogen [Mass/Vol] 22 mg/dL Normal 7-25 [facility] Comment on above: Performed By: #### P T, PTT, BMP, CBC #### [facility] [address] [place] [address] Urine Cultureon 02-09-2024 Bacteria identified Cx Nom (U) >100,000 colonies/ml mixed bacterial skin contaminants 2 Days PERFORMED BY: [place] [address] PATHOLOGIST OUTBOARD TECHNICIAN GLENYS BARRON M.D. Normal [facility] Comment on above: Performed By: #### C UU, ADDONUAPLUS #### [facility] [address] [place] [address] Urine appearanceOrdered By: Johnny Keen on 02-09-2024 Appearance (U) Cloudy Critically abnormal Clear [facility] Comment on above: Order Comment: Name Collection Type:: Clean-Voided Midstream Performed By: #### C UU, ADDONUAPLUS #### [facility] [address] [place] [address] Urine culture routineOrdered By: Johnny Keen on 02-09-2024 Bacteria identified Cx Nom (U) 2 Days [facility] Urobilinogen Test strip (U) [Mass/Vol]Ordered By: Johnny Keen on 02-09-2024 Urobilinogen (U) [Mass/Vol] Normal mg/dL Normal [facility] pH of Urine by Test stripOrd ered By: Johnny Keen on 02-09-2024 pH (U) 6.5 [pH] Normal 5.0-9.0 [facility] Comment on above: Order Comment: Name Collection Type:: Clean-Voided Midstream Performed By: #### C UU, ADDONUAPLUS #### [facility] [address] [place] [address] No Panel Informationon 01-19 Bedside INR (LAB) 2.5 [facility] XR LUMBAR SPINE 2-3 VIEWSon 01-12-2024 XR [...] Panel Informationon 01-04 Bedside INR (LAB) 2.1 [facility] Capillary blood glucose flakita urement by glucometer (mass/volume)Ordered By: Sandy Clark on 12-28-2023 Glucose [Mass/Vol] 170 mg/dL Normal [facility] Comment on above: Random Glucose Refer ence Range is dependent on time and content of last meal. Glucose of more than 200 mg/dL in a nonstressed, ambulatory subject supports the diagnosis of Diabetes Mellitus. Result Comment: [place] Glucose Reference Range is dependent on time and content of last meal. Glucose of more than 200 mg/dL in a nonstressed, ambulatory subject supports the diagnosis of Diabetes Mellitus. Performed By: #### G LULS #### Point of Care testing , Glucose Poct Glucometerson 0 12-28-2023 Commemt1 Glu2: Cleaned Meter Normal [facility] Comment on above: Result Comment: PERF ORMED BY: [facility] [address] [place] [address] PATHOLOGIST OUTBOARD TECHNICIAN GLENYS BARRON M.D. Performed By: #### G LULS #### Point of Care testing , INR in Platelet poor plasma by Coagulation assayOrdered By: Sandy Clark on 12-28-2023 INR Coag (PPP) [Relative time] 1.0 {INR} Normal [facility] Comment on above: INR Therapeutic Rang e [...] heart valves: 3 - 4.5 PERFORMED BY: [place] [address] PATHOLOGIST OUTBOARD TECHNICIAN GLENYS BARRON M.D. Performed By: #### P T #### [address] 12-28-2023 L Specimen: [id number] Received: 12/28/23 Status: TIERRA Moe Num: [id number] Spec Type: Surgical Subm Dr: Sandy Clark DO Tissues: A Colon Biopsy (RT COLON) B Colon Biopsy (TRANSV BX) C Colon Biopsy (LT COLON BX) Procedures: HE/6, Gross/Micro L4/3 Age/ Patient Sex Location Account Attending Physician Nicol Frances 73/F [id number] Sandy Clark DO SPEC NUM: [id number] RECD: 12/28/23 STATUS: TIERRA MOE NUM: [id number] ROQUE: 12/28/23 DR: Sandy Clark DO ENTERED: 12/28/[address] [facility] DR: SPEC TYPE: Surgical DEPT: S ORDERED: [...] in C1. Clinical history: Ulcerative colitis Specimen: [id number] Received: 12/28/23 Status: TIERRA Moe Num: [id number] Spec Type: Surgical Subm Dr: Sandy Clark DO Tissues: A Colon Biopsy (RT COLON) B Colon Biopsy (TRANSV BX) C Colon Biopsy (LT COLON BX) Procedures: HE/6, Gross/Micro L4/3 Patient: Nicol Frances [id number] (Continued) Specimen: [id number] Received: 12/28/23 (Continued) Signed (signature on file) Ac Beaulieu MD 12/29/23 1414 Specimen: [id number] Received: 12/28/23 Status: TIERRA Moe Num: [id number] Spec Type: Surgical Subm Dr: Sandy Clark DO Tissues: A Colon Biopsy (RT COLON) B Colon Biopsy (TRANSV BX) C Colon Biopsy (LT COLON BX) Procedures: HE/6, Gross/Micro L4/3 Patient: Nicol Frances [id number] (Continued) Specimen: [id number] Received: 12/28/23 (Continued) CPT Codes 62197x9 Specimen: [id number] Received: 12/28/23 Status: TIERRA Moe Num: [id number] Spec Type: Surgical Subm Dr: Sandy Clark, DO Tissues: A Colon Biopsy (RT COLON) B Colon Biopsy (TRANSV BX) C Colon Biopsy (LT COLON BX) Procedures: HE/6, Gross/Micro L4/3 Patient: Nicol Frances [id number] (Continued) Signed (signature on file) Ac Beaulieu MD 12/29/23 1414 Normal [facility] No Panel InformationOrdered By: Sandy Clark on 12-28-2023 Bedside Glucose Comment Glu2: cleaned meter [facility] Prothrombin time (PT)Ordered By: Sandy Clark on 12-28-2023 PT Coag (PPP) [Time] 12.1 s Normal 9.0-12.9 [facility] Comment on above: A hematocrit value g reater than 55% may lead to inaccurate results in coagulation testing. Patients having hematocrit values >55% require a special collection tube for coagulation studies. Please contact the laboratory at [phone] for redraw instructions. Result Comment: A he matocrit value greater than 55% may lead to inaccurate results in coagulation testing. Patients having hematocrit values >55% require a special collection tube for coagulation studies. Please contact the laboratory at [phone] for redraw instructions. Performed By: #### P T #### [facility] [address] [id number] [facility] No Panel Informationon 12-13 Bedside INR (LAB) 2.0 [facility] No Panel Informationon 11-08 Bedside INR (LAB) 2.2 [facility] Prothrombin Time INRon 10-05 INR Coag (PPP) [Relative time] 2.6 {INR} [employer] Other Prothrombin Time INR [facility] [employer] [place] Other Prothrombin Time INRon 09-07 INR Coag (PPP) [Relative time] 2.6 {INR} [employer] Other Prothrombin Time INR [facility] [employer] [place] Other Prothrombin Time INRon 08-11 INR Coag (PPP) [Relative time] 2.4 {INR} [employer] Other Prothrombin Time INR [facility] [employer] [place] Other Prothrombin Time INRon 07-14 INR Coag (PPP) [Relative time] 2.4 {INR} [employer] Other Prothrombin Time INR [facility] [employer] [place] Other Prothrombin Time INRon 06-15 INR Coag (PPP) [Relative time] 2.8 {INR} [employer] Other Prothrombin Time INR [employer] Other Prothrombin Time INRon 04-30 INR Coag (PPP) [Relative time] 2.6 {INR} [employer] Other Prothrombin Time INR [employer] Other Prothrombin Time INRon 04-08 INR Coag (PPP) [Relative time] 3.1 {INR} [employer] Other Prothrombin Time INR [employer] Other Prothrombin Time INRon 03-23 INR Coag (PPP) [Relative time] 2.3 {INR} [employer] Other Prothrombin Time INR [place] [employer] [place] Other Prothrombin Time INRon 03-11 INR Coag (PPP) [Relative time] 3.2 {INR} [employer] Other Prothrombin Time INR [facility] [employer] [place] Other Prothrombin Time INRon 02-23 INR Coag (PPP) [Relative time] 3.4 {INR} [employer] Other Prothrombin Time INR [employer] Other Laboratory - CoagulationOrde red By: Gabriel Castaneda on 12-17-2022 PT Coag (PPP) [Time] 21.0 s 9.0-12.9 [facility] Platelet poor plasma interna tional normalized ratio (INR) by coagulation assay (relatOrdered By: Gabriel Castaneda on 12-17-2022 INR Coag (PPP) [Relative time] 1.8 {INR} [facility] Comment on above: INR Therapeutic Rang e [...] Castaneda on 12-15-2022 Glucose [Mass/Vol] 223 mg/dL [facility] Comment on above: Random Glucose Refer ence Range is dependent on time and content of last meal. Glucose of more than 200 mg/dL in a nonstressed, ambulatory subject supports the diagnosis of Diabetes Mellitus. Laboratory - CoagulationOrde red By: Rosalina Shelton on 12-15-2022 PT Coag (PPP) [Time] 15.7 s 9.0-12.9 [facility] No Panel InformationOrdered By: Gabriel Castaneda on 12-15-2022 Bedside Glucose Comment Glu2: cleaned meter [facility] Platelet poor plasma interna tional normalized ratio (INR) by coagulation assay (relatOrdered By: Rosalina Shelton on 12-15-2022 INR Coag (PPP) [Relative time] 1.4 {INR} [facility] Comment on above: INR Therapeutic Rang e [...] 12-14-2022 Basophils (Bld) [#/Vol] 0.0 10*3/uL 0.0-0.2 [facility] Basophils/100 WBC Auto (Bld) Ordered By: Rosalina Shelton on 12-14-2022 Basophils/100 WBC (Bld) 1.0 % . [facility] Calcium [Mass/volume] in Ser um or PlasmaOrdered By: Rosalina Shelton on 12-14-2022 Calcium [Mass/Vol] 8.1 mg/dL 8.6-10.3 [facility] Carbon dioxide, total [Moles /volume] in Serum or PlasmaOrdered By: Rosalina Shelton on 12-14-2022 CO2 [Moles/Vol] 24.8 mmol/L 21.0-31.0 [facility] Chloride [Moles/volume] in S remi or PlasmaOrdered By: Rosalina Shelton on 12-14-2022 Chloride [Moles/Vol] 105 mmol/L 98-107 [facility] Creatinine [Mass/volume] in Serum or PlasmaOrdered By: Rosalina Shelton on 12-14-2022 Creatinine [Mass/Vol] 0.98 mg/dL 0.60-1.20 [facility] Eosinophils Auto (Bld) [#/Vo l]Ordered By: Rosalina Shelton on 12-14-2022 Eosinophils (Bld) [#/Vol] 0.1 10*3/uL 0.0-0.45 [facility] Eosinophils/100 WBC Auto (Bl d)Ordered By: Rosalina Shelton on 12-14-2022 Eosinophils/100 WBC (Bld) 2.0 % . [facility] Erythrocyte distribution wid th Auto (RBC) [Ratio]Ordered By: Rosalina Shelton on 12-14-2022 Erythrocyte distribution width (RBC) [Ratio] 14.3 % 11.9-15.3 [facility] Glucose [Mass/volume] in Ser um or PlasmaOrdered By: Rosalina Shelton on 12-14-2022 Glucose [Mass/Vol] 149 mg/dL 70-100 [facility] Comment on above: ADA recommended refe rence rangeRandom Glucose Reference Range is dependent on time and content of last meal. Glucose of more than 200 mg/dL in a nonstressed, ambulatory subject supports the diagnosis of Diabetes Mellitus. Hematocrit Auto (Bld) [Volum e fraction]Ordered By: Rosalina Shelton on 12-14-2022 Hematocrit (Bld) [Volume fraction] 36.1 % 34.0-46.4 [facility] Hemoglobin [Mass/volume] in BloodOrdered By: Rosalina Shelton on 12-14-2022 Hemoglobin (Bld) [Mass/Vol] 12.1 g/dL 11.8-15.4 [facility] Leukocytes [#/volume] correc darío for nucleated erythrocytes in Blood by Automated counOrdered By: Rosalina Shelton on 12-14-2022 WBC corrected for nucl RBC Auto (Bld) [#/Vol] 4.4 10*3/uL 3.8-11.6 [facility] Lymphocytes Auto (Bld) [#/Vo l]Ordered By: Rosalina Shelton on 12-14-2022 Lymphocytes (Bld) [#/Vol] 1.3 10*3/uL 1.00-4.8 [facility] Lymphocytes/100 WBC Auto (Bl d)Ordered By: Rosalina Shelton on 12-14-2022 Lymphocytes/100 WBC (Bld) 28.6 % . [facility] MCH Auto (RBC) [Entitic mass ]Ordered By: Rosalina Shelton on 12-14-2022 MCH (RBC) [Entitic mass] 32.2 pg 24.7-34.3 [facility] MCHC Auto (RBC) [Mass/Vol]Or dered By: Rosalina Shelton on 12-14-2022 MCHC (RBC) [Mass/Vol] 33.4 g/dL 32.0-35.0 [facility] MCV Auto (RBC) [Entitic vol] Ordered By: Rosalina Shelton on 12-14-2022 MCV (RBC) [Entitic vol] 96.3 fL 80-100 [facility] Monocytes Auto (Bld) [#/Vol] Ordered By: Rosalina Shelton on 12-14-2022 Monocytes (Bld) [#/Vol] 0.5 10*3/uL 0.0-0.8 [facility] Monocytes/100 WBC Auto (Bld) Ordered By: Rosalina Shelton on 12-14-2022 Monocytes/100 WBC (Bld) 11.6 % . [facility] Neutrophils Auto (Bld) [#/Vo l]Ordered By: Rosalina Shelton on 12-14-2022 Neutrophils (Bld) [#/Vol] 2.5 10*3/uL 1.8-7.7 [facility] Neutrophils/100 WBC Auto (Bl d)Ordered By: Rosalina Shelton on 12-14-2022 Neutrophils/100 WBC (Bld) 56.8 % . [facility] No Panel InformationOrdered By: Rosalina Shelton on 12-14-2022 Estimated GFR (CKD-EPI) > 60.0 mL/Min [facility] Creatinine Clearance (Chem 54.33 [facility] Nucleated erythrocytes [Pres ence] in Blood by Automated countOrdered By: Rosalina Shelton on 12-14-2022 Nucleated RBC Auto Ql (Bld) 0.1 /100{WBC} 0-0.5 [facility] Platelet mean volume Auto (B ld) [Entitic vol]Ordered By: Rosalina Shelton on 12-14-2022 Platelet mean volume (Bld) [Entitic vol] 8.3 fL 6.3-10.7 [facility] Platelets Auto (Bld) [#/Vol] Ordered By: Rosalina Shelton on 12-14-2022 Platelets (Bld) [#/Vol] 197 10*3/uL 150-450 [facility] Potassium [Moles/volume] in Serum or PlasmaOrdered By: Rosalina Shelton on 12-14-2022 Potassium [Moles/Vol] 4.1 mmol/L 3.5-5.1 [facility] RBC Auto (Bld) [#/Vol]Ordere d By: Rosalina Shelton on 12-14-2022 RBC (Bld) [#/Vol] 3.75 10*6/uL 3.60-5.00 [facility] Serum or plasma anion gap de terminationOrdered By: Rosalina Shelton on 12-14-2022 Anion gap [Moles/Vol] TNP [facility] Comment on above: Test not performed Sodium [Moles/volume] in Ser um or PlasmaOrdered By: Rosalina Shelton on 12-14-2022 Sodium [Moles/Vol] 135 mmol/L 136-145 [facility] Comment on above: Hemolysis is present at a level that could interfere with the result. Troponin I.cardiac [Mass/vol ume] in Serum or Plasma by Detection limit <= 0.01 ng/Ordered By: Rosalina Shelton on 12-14-2022 Troponin I.cardiac DL <= 0.01 ng/mL [Mass/Vol] 6.3 pg/mL 0.0-15.0 [facility] Urea nitrogen [Mass/volume] in Serum or PlasmaOrdered By: Rosalina Shelton on 12-14-2022 Urea nitrogen [Mass/Vol] 13 mg/dL 7-25 [facility] WBC Auto (Bld) [#/Vol]Ordere d By: Rosalina Shelton on 12-14-2022 WBC (Bld) [#/Vol] 4.4 10*3/uL 3.8-11.6 [facility] Activated partial thrombopla stin time (aPTT) in platelet poor plasma by coagulation aOrdered By: Celio Lobo on 12-13-2022 aPTT Coag (PPP) [Time] 38.0 s 25.1-36.5 [facility] Alanine aminotransferase [En zymatic activity/volume] in Serum or PlasmaOrdered By: Celio Lobo on 12-13-2022 ALT [Catalytic activity/Vol] 14 U/L 7-52 [facility] Albumin [Mass/volume] in Ser um or Plasma by Bromocresol green (BCG) dye binding methoOrdered By: Celio Lobo on 12-13-2022 Albumin BCG dye [Mass/Vol] 3.8 g/dL 3.5-5.7 [facility] Alkaline phosphatase [Enzyma tic activity/volume] in Serum or PlasmaOrdered By: Celio Lobo on 12-13-2022 ALP [Catalytic activity/Vol] 51 U/L 34-104 [facility] Aspartate aminotransferase [ Enzymatic activity/volume] in Serum or PlasmaOrdered By: Celio Lobo on 12-13-2022 AST [Catalytic activity/Vol] 18 U/L 13-39 [facility] Basophils Auto (Bld) [#/Vol] Ordered By: Celio Lobo on 12-13-2022 Basophils (Bld) [#/Vol] 0.0 10*3/uL 0.0-0.2 [facility] Basophils/100 WBC Auto (Bld) Ordered By: Celio Lobo on 12-13-2022 Basophils/100 WBC (Bld) 1.0 % . [facility] Bilirubin Test strip Ql (U)O rdered By: Celio Lobo on 12-13-2022 Bilirubin Ql (U) Negative Negative [facility] Bilirubin.total [Mass/volume ] in Serum or PlasmaOrdered By: Celio Lobo on 12-13-2022 Bilirubin [Mass/Vol] 0.3 mg/dL 0.3-1.0 [facility] Calcium [Mass/volume] in Ser um or PlasmaOrdered By: Celio Lobo on 12-13-2022 Calcium [Mass/Vol] 8.5 mg/dL 8.6-10.3 [facility] Carbon dioxide, total [Moles /volume] in Serum or PlasmaOrdered By: Celio Lobo on 12-13-2022 CO2 [Moles/Vol] 23.2 mmol/L 21.0-31.0 [facility] Chloride [Moles/volume] in S remi or PlasmaOrdered By: Celio Lobo on 12-13-2022 Chloride [Moles/Vol] 106 mmol/L 98-107 [facility] Color Auto (U)Ordered By: Perez Lobo on 12-13-2022 Color (U) Yellow Yellow [facility] Creatinine [Mass/volume] in Serum or PlasmaOrdered By: Celio Lobo on 12-13-2022 Creatinine [Mass/Vol] 1.06 mg/dL 0.60-1.20 [facility] Eosinophils Auto (Bld) [#/Vo l]Ordered By: Celio Lobo on 12-13-2022 Eosinophils (Bld) [#/Vol] 0.1 10*3/uL 0.0-0.45 [facility] Eosinophils/100 WBC Auto (Bl d)Ordered By: Celio Lobo on 12-13-2022 Eosinophils/100 WBC (Bld) 1.2 % . [facility] Erythrocyte distribution wid th Auto (RBC) [Ratio]Ordered By: Celio Lobo on 12-13-2022 Erythrocyte distribution width (RBC) [Ratio] 14.6 % 11.9-15.3 [facility] Globulin Calc (S) [Mass/Vol] Ordered By: Celio Lobo on 12-13-2022 Globulin (S) [Mass/Vol] 2.8 g/dL [facility] Glucose Glucometer (BldC) [M ass/Vol]Ordered By: Celio Lobo on 12-13-2022 Glucose [Mass/Vol] 96 mg/dL [facility] Comment on above: Random Glucose Refer ence Range is dependent on time and content of last meal. Glucose of more than 200 mg/dL in a nonstressed, ambulatory subject supports the diagnosis of Diabetes Mellitus. Glucose [Mass/volume] in Ser um or PlasmaOrdered By: Celio Lobo on 12-13-2022 Glucose [Mass/Vol] 152 mg/dL 70-100 [facility] Comment on above: ADA recommended refe rence rangeRandom Glucose Reference Range is dependent on time and content of last meal. Glucose of more than 200 mg/dL in a nonstressed, ambulatory subject supports the diagnosis of Diabetes Mellitus. Hematocrit Auto (Bld) [Volum e fraction]Ordered By: Celio Lobo on 12-13-2022 Hematocrit (Bld) [Volume fraction] 37.8 % 34.0-46.4 [facility] Hemoglobin [Mass/volume] in BloodOrdered By: Celio Lobo on 12-13-2022 Hemoglobin (Bld) [Mass/Vol] 12.5 g/dL 11.8-15.4 [facility] Ketones Auto test strip (U) [Mass/Vol]Ordered By: Celio Lobo on 12-13-2022 Ketones (U) [Mass/Vol] Negative Negative [facility] - CoagulationOrde red By: Celio Lobo on 12-13-2022 PT Coag (PPP) [Time] 23.1 s 9.0-12.9 [facility] Leukocytes [#/volume] correc darío for nucleated erythrocytes in Blood by Automated counOrdered By: Ceilo Lobo on 12-13-2022 WBC corrected for nucl RBC Auto (Bld) [#/Vol] 4.9 10*3/uL 3.8-11.6 [facility] Lymphocytes Auto (Bld) [#/Vo l]Ordered By: Celio Lobo on 12-13-2022 Lymphocytes (Bld) [#/Vol] 1.5 10*3/uL 1.00-4.8 [facility] Lymphocytes/100 WBC Auto (Bl d)Ordered By: Celio Lobo on 12-13-2022 Lymphocytes/100 WBC (Bld) 29.8 % . [facility] MCH Auto (RBC) [Entitic mass ]Ordered By: Celio Lobo on 12-13-2022 MCH (RBC) [Entitic mass] 31.8 pg 24.7-34.3 [facility] MCHC Auto (RBC) [Mass/Vol]Or dered By: Celio Lobo on 12-13-2022 MCHC (RBC) [Mass/Vol] 33.1 g/dL 32.0-35.0 [facility] MCV Auto (RBC) [Entitic vol] Ordered By: Celio Lobo on 12-13-2022 MCV (RBC) [Entitic vol] 96.0 fL 80-100 [facility] Magnesium [Mass/volume] in S remi or PlasmaOrdered By: Rosalina Shelton on 12-13-2022 Magnesium [Mass/Vol] 1.9 mg/dL 1.9-2.7 [facility] Magnesium [Mass/volume] in S remi or PlasmaOrdered By: Celio Lobo on 12-13-2022 Magnesium [Mass/Vol] 2.0 mg/dL 1.9-2.7 [facility] Monocyte distribution width [Entitic volume] in Blood by AutomatedOrdered By: Celio Lobo on 12-13-2022 Monocyte distribution width Auto (Bld) [Entitic vol] 18.43 % 0.00-20.00 [facility] Monocytes Auto (Bld) [#/Vol] Ordered By: Celio Lobo on 12-13-2022 Monocytes (Bld) [#/Vol] 0.5 10*3/uL 0.0-0.8 [facility] Monocytes/100 WBC Auto (Bld) Ordered By: Celio Lobo on 12-13-2022 Monocytes/100 WBC (Bld) 9.9 % . [facility] Natriuretic peptide B [Mass/ Vol]Ordered By: Celio Lobo on 12-13-2022 Natriuretic peptide B (Bld) [Mass/Vol] 105.0 pg/mL 5-100 [facility] Neutrophils Auto (Bld) [#/Vo l]Ordered By: Celio Lobo on 12-13-2022 Neutrophils (Bld) [#/Vol] 2.8 10*3/uL 1.8-7.7 [facility] Neutrophils/100 WBC Auto (Bl d)Ordered By: Celio Lobo on 12-13-2022 Neutrophils/100 WBC (Bld) 58.1 % . [facility] Nitrite Test strip Ql (U)Ord ered By: Celio Lobo on 12-13-2022 Nitrite Ql (U) Negative Negative [facility] No Panel InformationOrdered By: Celio Lobo on 12-13-2022 Bedside Glucose #2 Comment Cleaned meter [facility] Bedside Glucose Comment See comment [facility] Comment on above: Glu2: WILL NOTIFY DR /RN Estimated GFR (CKD-EPI) 56.163 mL/Min [facility] Creatinine Clearance (Chem 51.30 [facility] No Panel InformationOrdered By: Rosalina Shelton on 12-13-2022 D-Dimer Quantitative (PE/DVT) < 200 ng/mL 0-243 [facility] Comment on above: The reference range for [...] RBC Auto Ql (Bld) 0.0 /100{WBC} 0-0.5 [facility] Platelet mean volume Auto (B ld) [Entitic vol]Ordered By: Celio Lobo on 12-13-2022 Platelet mean volume (Bld) [Entitic vol] 8.4 fL 6.3-10.7 [facility] Platelet poor plasma interna tional normalized ratio (INR) by coagulation assay (relatOrdered By: Celio Lobo on 12-13-2022 INR Coag (PPP) [Relative time] 2.0 {INR} [facility] Comment on above: INR Therapeutic Rang e [...] 12-13-2022 Platelets (Bld) [#/Vol] 221 10*3/uL 150-450 [facility] Potassium [Moles/volume] in Serum or PlasmaOrdered By: Celio Lobo on 12-13-2022 Potassium [Moles/Vol] 4.0 mmol/L 3.5-5.1 [facility] Protein Auto test strip (U) [Mass/Vol]Ordered By: Celio Lobo on 12-13-2022 Protein (U) [Mass/Vol] Negative Negative [facility] Protein [Mass/volume] in Ser um or PlasmaOrdered By: Celio Lobo on 12-13-2022 Protein [Mass/Vol] 6.6 g/dL 6.4-8.9 [facility] RBC Auto (Bld) [#/Vol]Ordere d By: Celio Lobo on 12-13-2022 RBC (Bld) [#/Vol] 3.94 10*6/uL 3.60-5.00 [facility] Serum or plasma albumin/glob ulin mass ratioOrdered By: Celio Lobo on 12-13-2022 Albumin/Globulin [Mass ratio] 1.4 {ratio} [facility] Serum or plasma anion gap de terminationOrdered By: Celio Lobo on 12-13-2022 Anion gap [Moles/Vol] 11.8 mmol/L 6.0-15.0 [facility] Sodium [Moles/volume] in Ser um or PlasmaOrdered By: Celio Lobo on 12-13-2022 Sodium [Moles/Vol] 137 mmol/L 136-145 [facility] Specific gravity Auto test s trip (U) [Rel density]Ordered By: Celio Lobo on 12-13-2022 Specific gravity (U) [Rel density] 1.006 1.001-1.03 0 [facility] Thyrotropin [Units/volume] i n Serum or PlasmaOrdered By: Rsoalina Shelton on 12-13-2022 TSH Qn 4.39 m[IU]/L 0.45-5.33 [facility] Troponin I.cardiac [Mass/vol ume] in Serum or Plasma by Detection limit <= 0.01 ng/Ordered By: Celio Lobo on 12-13-2022 Troponin I.cardiac DL <= 0.01 ng/mL [Mass/Vol] 6.4 pg/mL 0.0-15.0 [facility] Urea nitrogen [Mass/volume] in Serum or PlasmaOrdered By: Celio Lobo on 12-13-2022 Urea nitrogen [Mass/Vol] 15 mg/dL 7- [facility] Urine clarity by refractomet ry automatedOrdered By: Celio Lobo on 12-13-2022 Clarity Refractometry automated (U) Clear Clear [facility] Urine glucose measurement by automated test strip (mass/volume)Ordered By: Celio Lobo on 12-13-2022 Glucose Auto test strip (U) [Mass/Vol] Normal mg/dL Normal [facility] Urine hemoglobin detection b y automated test stripOrdered By: Celio Lobo on 12-13-2022 Hemoglobin Auto test strip Ql (U) Negative Negative [facility] Urine leukocyte esterase det ection by automated test stripOrdered By: Celio Lobo on 12-13-2022 Leukocyte esterase Auto test strip Ql (U) Negative Negative [facility] Urobilinogen Auto test strip (U) [Mass/Vol]Ordered By: Celio Lobo on 12-13-2022 Urobilinogen (U) [Mass/Vol] Normal mg/dL Normal [facility] WBC Auto (Bld) [#/Vol]Ordere d By: Celio Lobo on 12-13-2022 WBC (Bld) [#/Vol] 4.9 10*3/uL 3.8-11.6 [facility] pH Auto test strip (U)Ordere d By: Celio Lobo on 12-13-2022 pH (U) 8.0 [pH] 5.0-9.0 [facility] Prothrombin Time INRon 12-10 INR Coag (PPP) [Relative time] 2.5 {INR} [employer] [place] Other Prothrombin Time INR [facility] [employer] [place] Other Prothrombin Time INRon 11-12 INR Coag (PPP) [Relative time] 2.7 {INR} [employer] Other Prothrombin Time INR [facility] [employer] [place] Other Prothrombin Time INRon 10-15 INR Coag (PPP) [Relative time] 2.7 {INR} [employer] Other Prothrombin Time INR [facility] [employer] [place] Other Automated erythrocytes count in urine sediment (number/area)Ordered By: Edmond Branham on 09-23-2022 RBC Auto (Urine sed) [#/Area] 1-2 [HPF] 0-4 [facility] Automated leukocytes count i n urine sediment (number/area)Ordered By: Edmond Branham on 09-23-2022 WBC Auto (Urine sed) [#/Area] 5-9 [HPF] 0-4 [facility] Basophils Auto (Bld) [#/Vol] Ordered By: Edmond Branham on 09-23-2022 Basophils (Bld) [#/Vol] 0.1 10*3/uL 0.0-0.2 [facility] Basophils/100 WBC Auto (Bld) Ordered By: Edmond Branham on 09-23-2022 Basophils/100 WBC (Bld) 1.1 % . [facility] Bilirubin Test strip Ql (U)O rdered By: Edmond Branham on 09-23-2022 Bilirubin Ql (U) Negative Negative [facility] Body fluid albumin measureme nt (mass/volume)Ordered By: Edmond Branham on 09-23-2022 Albumin (Body fld) [Mass/Vol] 3.7 g/dL 3.2-5.5 [facility] Color Auto (U)Ordered By: Kailey Branham on 09-23-2022 Color (U) Dark yellow Yellow [facility] Creatinine and Glomerular fi ltration rate.predicted panel (S/P/Bld)Ordered By: Edmond Branham on 09-23-2022 Creatinine [Mass/Vol] 1.15 mg/dL 0.44-1.03 [facility] Eosinophils Auto (Bld) [#/Vo l]Ordered By: Edmond Branham on 09-23-2022 Eosinophils (Bld) [#/Vol] 0.1 10*3/uL 0.0-0.45 [facility] Eosinophils/100 WBC Auto (Bl d)Ordered By: Edmond Branham on 09-23-2022 Eosinophils/100 WBC (Bld) 1.7 % . [facility] Erythrocyte distribution wid th Auto (RBC) [Ratio]Ordered By: Edmond Branham on 09-23-2022 Erythrocyte distribution width (RBC) [Ratio] 15.0 % 11.9-15.3 [facility] Estimated glomerular filtrat ion rate (GFR) non- AmericanOrdered By: Edmond Branham on 09-23-2022 GFR/1.73 sq M.predicted among non-blacks MDRD (S/P/Bld) [Vol rate/Area] 47 mL/Min [facility] Globulin Calc (S) [Mass/Vol] Ordered By: Edmond Branham on 09-23-2022 Globulin (S) [Mass/Vol] 2.9 g/dL [facility] Glucose Glucometer (BldC) [M ass/Vol]Ordered By: Edmond Branham on 09-23-2022 Glucose [Mass/Vol] 108 mg/dL [facility] Comment on above: Random Glucose Refer ence Range is dependent on time and content of last meal. Glucose of more than 200 mg/dL in a nonstressed, ambulatory subject supports the diagnosis of Diabetes Mellitus. Hematocrit Auto (Bld) [Volum e fraction]Ordered By: Edmond Branham on 09-23-2022 Hematocrit (Bld) [Volume fraction] 39.1 % 34.0-46.4 [facility] Hemoglobin [Mass/volume] in BloodOrdered By: Edmond Branham on 09-23-2022 Hemoglobin (Bld) [Mass/Vol] 13.3 g/dL 11.8-15.4 [facility] Ketones Auto test strip (U) [Mass/Vol]Ordered By: Edmond Branham on 09-23-2022 Ketones (U) [Mass/Vol] Negative Negative [facility] Laboratory - UrinalysisOrder ed By: Edmond Branham on 09-23-2022 Hyaline casts LM Ql (Urine sed) 0-8 [LPF] 0-8 [facility] Leukocytes [#/volume] correc darío for nucleated erythrocytes in Blood by Automated counOrdered By: Edmond Branham on 09-23-2022 WBC corrected for nucl RBC Auto (Bld) [#/Vol] 5.2 10*3/uL 3.8-11.6 [facility] Lymphocytes Auto (Bld) [#/Vo l]Ordered By: Edmond Branham on 09-23-2022 Lymphocytes (Bld) [#/Vol] 1.6 10*3/uL 1.00-4.8 [facility] Lymphocytes/100 WBC Auto (Bl d)Ordered By: Edmond Branham on 09-23-2022 Lymphocytes/100 WBC (Bld) 31.1 % . [facility] MCH Auto (RBC) [Entitic mass ]Ordered By: Edmond Branham on 09-23-2022 MCH (RBC) [Entitic mass] 32.3 pg 24.7-34.3 [facility] MCHC Auto (RBC) [Mass/Vol]Or dered By: Edmond Branham on 09-23-2022 MCHC (RBC) [Mass/Vol] 34.0 g/dL 32.0-35.0 [facility] MCV Auto (RBC) [Entitic vol] Ordered By: Edmond Branham on 09-23-2022 MCV (RBC) [Entitic vol] 95.2 fL 80-100 [facility] Monocyte distribution width [Entitic volume] in Blood by AutomatedOrdered By: Edmond Branham on 09-23-2022 Monocyte distribution width Auto (Bld) [Entitic vol] 19.36 % 0.00-20.00 [facility] Monocytes Auto (Bld) [#/Vol] Ordered By: Edmond Branham on 09-23-2022 Monocytes (Bld) [#/Vol] 0.5 10*3/uL 0.0-0.8 [facility] Monocytes/100 WBC Auto (Bld) Ordered By: Edmond Branham on 09-23-2022 Monocytes/100 WBC (Bld) 10.2 % . [facility] Neutrophils Auto (Bld) [#/Vo l]Ordered By: Edmond Branham on 09-23-2022 Neutrophils (Bld) [#/Vol] 2.9 10*3/uL 1.8-7.7 [facility] Neutrophils/100 WBC Auto (Bl d)Ordered By: Edmond Branham on 09-23-2022 Neutrophils/100 WBC (Bld) 55.9 % . [facility] Nitrite Test strip Ql (U)Ord ered By: Edmond Branham on 09-23-2022 Nitrite Ql (U) Negative Negative [facility] No Panel InformationOrdered By: Edmond Branham on 09-23-2022 Estimated GFR () 56 mL/Min [facility] Comment on above: GFR estimated refere nce range: According to KDOQI guidelines, <60 ml/min/1.73m2 is sufficient to diagnose a patient with chronic kidney disease. Pharmacy Creatinine Clearance (Chem 46.55 [facility] Nucleated erythrocytes [Pres ence] in Blood by Automated countOrdered By: Edmond Branham on 09-23-2022 Nucleated RBC Auto Ql (Bld) 0.1 /100{WBC} 0-0.5 [facility] Platelet mean volume Auto (B ld) [Entitic vol]Ordered By: Edmond Branham on 09-23-2022 Platelet mean volume (Bld) [Entitic vol] 8.1 fL 6.3-10.7 [facility] Platelets Auto (Bld) [#/Vol] Ordered By: Edmond Branham on 09-23-2022 Platelets (Bld) [#/Vol] 183 10*3/uL 150-450 [facility] Protein Auto test strip (U) [Mass/Vol]Ordered By: Edmond Branham on 09-23-2022 Protein (U) [Mass/Vol] Negative Negative [facility] Protein [Mass/volume] in Ser um or PlasmaOrdered By: Edmond Branham on 09-23-2022 Protein [Mass/Vol] 6.6 g/dL 6.1-7.9 [facility] RBC Auto (Bld) [#/Vol]Ordere d By: Edmond Branham on 09-23-2022 RBC (Bld) [#/Vol] 4.10 10*6/uL 3.60-5.00 [facility] Serum or plasma alanine lugo otransferase measurement without P-5'-P (enzymatic activiOrdered By: Edmond Branham on 01-31-2023 ALT No additional P-5'-P [Catalytic activity/Vol] 15 U/L 10-60 [facility] Serum or plasma albumin/glob ulin mass ratioOrdered By: Edmond Branham on 09-23-2022 Albumin/Globulin [Mass ratio] 1.3 {ratio} [facility] Serum or plasma alkaline elijah sphatase measurement (enzymatic activity/volume)Ordered By: Edmond Branham on 09-23-2022 ALP [Catalytic activity/Vol] 57 U/L 32-92 [facility] Serum or plasma anion gap de terminationOrdered By: Edmond Branham on 09-23-2022 Anion gap [Moles/Vol] 15.9 mmol/L 6.0-15.0 [facility] Serum or plasma aspartate am inotransferase measurement (enzymatic activity/volume)Ordered By: Edmond Branham on 09-23-2022 AST [Catalytic activity/Vol] 20 U/L 10-42 [facility] Serum or plasma calcium flakita urement (mass/volume)Ordered By: Edmond Branham on 09-23-2022 Calcium [Mass/Vol] 9.3 mg/dL 8.2-10.2 [facility] Serum or plasma chloride patrice surement (moles/volume)Ordered By: Edmond Branham on 09-23-2022 Chloride [Moles/Vol] 103 mmol/L 95-114 [facility] Serum or plasma glucose flakita urement (mass/volume)Ordered By: Edmond Branham on 09-23-2022 Glucose [Mass/Vol] 103 mg/dL 70-100 [facility] Comment on above: ADA recommended refe rence rangeRandom Glucose Reference Range is dependent on time and content of last meal. Glucose of more than 200 mg/dL in a nonstressed, ambulatory subject supports the diagnosis of Diabetes Mellitus. Serum or plasma potassium me asurement (moles/volume)Ordered By: Edmond Branham on 09-23-2022 Potassium [Moles/Vol] 3.5 mmol/L 3.5-5.1 [facility] Serum or plasma sodium measu rement (moles/volume)Ordered By: Edmond Branham on 09-23-2022 Sodium [Moles/Vol] 137 mmol/L 136-146 [facility] Serum or plasma total biliru bin measurement (mass/volume)Ordered By: Edmond Branham on 09-23-2022 Bilirubin [Mass/Vol] 0.4 mg/dL 0.3-1.2 [facility] Serum or plasma total carbon dioxide measurement (moles/volume)Ordered By: Edmond Branham on 09-23-2022 CO2 [Moles/Vol] 21.6 mmol/L 22.0-30.0 [facility] Serum or plasma urea nitroge n measurement (mass/volume)Ordered By: Edmond Branham on 09-23-2022 Urea nitrogen [Mass/Vol] 13 mg/dL 9- [facility] Specific gravity Auto test s trip (U) [Rel density]Ordered By: Edmond Branham on 09-23-2022 Specific gravity (U) [Rel density] 1.012 1.001-1.03 0 [facility] Squamous epithelial cells de tection in urine sediment by light microscopyOrdered By: Edmond Branham on 09-23-2022 Epithelial cells.squamous LM Ql (Urine sed) 3-4 [HPF] 0-2 [facility] Troponin I.cardiac [Mass/vol ume] in Serum or Plasma by High sensitivity methodOrdered By: Edmond Branham on 09-23-2022 Troponin I.cardiac High sensitivity method [Mass/Vol] 6 pg/mL 0-15 [facility] Urine bacteria detection by automated methodOrdered By: Edmond Branham on 09-23-2022 Bacteria Auto Ql (U) None seen None Seen [facility] Urine clarity by refractomet ry automatedOrdered By: Edmond Branham on 09-23-2022 Clarity Refractometry automated (U) Clear Clear [facility] Urine culture routineOrdered By: Edmond Branham on 09-23-2022 Bacteria identified Cx Nom (U) 2 Days [facility] Urine glucose measurement by automated test strip (mass/volume)Ordered By: Edmond Branham on 09-23-2022 Glucose Auto test strip (U) [Mass/Vol] Normal mg/dL Normal [facility] Urine hemoglobin detection b y automated test stripOrdered By: Edmond Branham on 09-23-2022 Hemoglobin Auto test strip Ql (U) Negative Negative [facility] Urine leukocyte esterase det ection by automated test stripOrdered By: Edmond Branham on 09-23-2022 Leukocyte esterase Auto test strip Ql (U) 1+ Negative [facility] Urobilinogen Auto test strip (U) [Mass/Vol]Ordered By: Edmond Branham on 09-23-2022 Urobilinogen (U) [Mass/Vol] Normal mg/dL Normal [facility] WBC Auto (Bld) [#/Vol]Ordere d By: Edmond Branham on 09-23-2022 WBC (Bld) [#/Vol] 5.2 10*3/uL 3.8-11.6 [facility] pH Auto test strip (U)Ordere d By: Edmond Branham on 09-23-2022 pH (U) 8.0 [pH] 5.0-9.0 [facility] Prothrombin Time INRon 09-17 INR Coag (PPP) [Relative time] 3.2 {INR} [employer] [facility] [employer] Other Prothrombin Time INR [facility] [employer] [place] Other Prothrombin Time INRon 08-20 INR Coag (PPP) [Relative time] 2.5 {INR} [employer] Other Prothrombin Time INR [facility] [employer] [place] Other Prothrombin Time INRon 07-24 INR Coag (PPP) [Relative time] 3.5 {INR} [employer] Other Prothrombin Time INR [facility] [employer] [place] Other Prothrombin Time INRon 06-26 INR Coag (PPP) [Relative time] 1.7 {INR} [employer] Other Prothrombin Time INR [facility] [employer] [place] Other Prothrombin Time INRon 06-05 INR Coag (PPP) [Relative time] 2.6 {INR} [employer] Other Prothrombin Time INR [employer] Other Laboratory - CoagulationOrde red By: Marlon Molina on 05-29-2022 PT Coag (PPP) [Time] 12.3 s 9.0-12.9 [facility] Platelet poor plasma interna tional normalized ratio (INR) by coagulation assay (relatOrdered By: Marlon Molina on 05-29-2022 INR Coag (PPP) [Relative time] 1.1 {INR} [facility] Comment on above: INR Therapeutic Rang e [...] INR Coag (PPP) [Relative time] 2.1 {INR} [facility] [employer] Other Prothrombin Time INR [facility] [employer] Other Basophils Auto (Bld) [#/Vol] Ordered By: Marlon Molina on 05-20-2022 Basophils (Bld) [#/Vol] 0.0 10*3/uL 0.0-0.2 [facility] Basophils/100 WBC Auto (Bld) Ordered By: Marlon Molina on 05-20-2022 Basophils/100 WBC (Bld) 0.9 % . [facility] Blood hemoglobin measurement (mass/volume)Ordered By: Marlon Molina on 05-20-2022 Hemoglobin (Bld) [Mass/Vol] 13.4 g/dL 11.8-15.4 [facility] Blood leukocytes automated c ount (number/volume)Ordered By: Marlon Molina on 05-20-2022 WBC (Bld) [#/Vol] 5.2 10*3/uL 4.5-11.0 [facility] Body fluid albumin measureme nt (mass/volume)Ordered By: Marlon Molina on 05-20-2022 Albumin (Body fld) [Mass/Vol] 3.6 g/dL 3.2-5.5 [facility] Creatinine and Glomerular fi ltration rate.predicted panel (S/P/Bld)Ordered By: Marlon Molina on 05-20-2022 Creatinine [Mass/Vol] 1.04 mg/dL 0.44-1.03 [facility] Eosinophils Auto (Bld) [#/Vo l]Ordered By: Marlon Mikea on 05-20-2022 Eosinophils (Bld) [#/Vol] 0.1 10*3/uL 0.0-0.45 [facility] Eosinophils/100 WBC Auto (Bl d)Ordered By: Marlon Molina on 05-20-2022 Eosinophils/100 WBC (Bld) 1.1 % . [facility] Erythrocyte distribution wid th Auto (RBC) [Ratio]Ordered By: Marlon Molina on 05-20-2022 Erythrocyte distribution width (RBC) [Ratio] 14.6 % 11.9-15.3 [facility] Estimated glomerular filtrat ion rate (GFR) non- AmericanOrdered By: Marlon Molina on 05-20-2022 GFR/1.73 sq M.predicted among non-blacks MDRD (S/P/Bld) [Vol rate/Area] 52 mL/Min [facility] Globulin Calc (S) [Mass/Vol] Ordered By: Marlon Molina on 05-20-2022 Globulin (S) [Mass/Vol] 2.8 g/dL [facility] Hematocrit Auto (Bld) [Volum e fraction]Ordered By: Marlon Molina on 05-20-2022 Hematocrit (Bld) [Volume fraction] 39.7 % 34.0-46.4 [facility] Laboratory - Hematology and Cell countsOrdered By: Marlon Molina on 05-20-2022 Nucleated RBC/100 WBC (Bld) [Ratio] 0.0 % 0-0.5 [facility] Lymphocytes Auto (Bld) [#/Vo l]Ordered By: Marlon Mikea on 05-20-2022 Lymphocytes (Bld) [#/Vol] 1.2 10*3/uL 1.00-4.8 [facility] Lymphocytes/100 WBC Auto (Bl d)Ordered By: Marlon Mikea on 05-20-2022 Lymphocytes/100 WBC (Bld) 22.5 % . [facility] MCH Auto (RBC) [Entitic mass ]Ordered By: Marlon Molina on 05-20-2022 MCH (RBC) [Entitic mass] 32.5 pg 24.7-34.3 [facility] MCHC Auto (RBC) [Mass/Vol]Or dered By: Marlon Molina on 05-20-2022 MCHC (RBC) [Mass/Vol] 33.7 g/dL 32.0-35.0 [facility] MCV Auto (RBC) [Entitic vol] Ordered By: Marlon Molina on 05-20-2022 MCV (RBC) [Entitic vol] 96.3 fL 80-100 [facility] Monocytes Auto (Bld) [#/Vol] Ordered By: Marlon Molina on 05-20-2022 Monocytes (Bld) [#/Vol] 0.4 10*3/uL 0.0-0.8 [facility] Monocytes/100 WBC Auto (Bld) Ordered By: Marlon Molina on 05-20-2022 Monocytes/100 WBC (Bld) 7.1 % . [facility] Neutrophils Auto (Bld) [#/Vo l]Ordered By: Marlon Molina on 05-20-2022 Neutrophils (Bld) [#/Vol] 3.6 10*3/uL 1.8-7.7 [facility] Neutrophils/100 WBC Auto (Bl d)Ordered By: Marlon Molina on 05-20-2022 Neutrophils/100 WBC (Bld) 68.4 % . [facility] No Panel InformationOrdered By: Marlon Molina on 05-20-2022 Estimated GFR () > 60 mL/Min [facility] Comment on above: GFR estimated refere nce range: According to KDOQI guidelines, <60 ml/min/1.73m2 is sufficient to diagnose a patient with chronic kidney disease. Pharmacy Creatinine Clearance (Chem N/A [facility] Platelet mean volume Auto (B ld) [Entitic vol]Ordered By: Marlon Molina on 05-20-2022 Platelet mean volume (Bld) [Entitic vol] 8.8 fL 6.3-10.7 [facility] Platelets Auto (Bld) [#/Vol] Ordered By: Marlon Molina on 05-20-2022 Platelets (Bld) [#/Vol] 224 10*3/uL 150-450 [facility] Protein [Mass/volume] in Ser um or PlasmaOrdered By: Marlon Molina on 05-20-2022 Protein [Mass/Vol] 6.4 g/dL 6.1-7.9 [facility] RBC Auto (Bld) [#/Vol]Ordere d By: Marlon Molina on 05-20-2022 RBC (Bld) [#/Vol] 4.13 10*6/uL 3.60-5.00 [facility] Serum or plasma alanine lugo otransferase measurement without P-5'-P (enzymatic activiOrdered By: Marlon Molina on 05-20-2022 ALT No additional P-5'-P [Catalytic activity/Vol] 18 U/L 10-60 [facility] Serum or plasma albumin/glob ulin mass ratioOrdered By: Marlon Molina on 05-20-2022 Albumin/Globulin [Mass ratio] 1.3 {ratio} [facility] Serum or plasma alkaline elijah sphatase measurement (enzymatic activity/volume)Ordered By: Marlon Molina on 05-20-2022 ALP [Catalytic activity/Vol] 51 U/L 32-92 [facility] Serum or plasma anion gap de terminationOrdered By: Marlon Molina on 05-20-2022 Anion gap [Moles/Vol] 16.4 mmol/L 6.0-15.0 [facility] Serum or plasma aspartate am inotransferase measurement (enzymatic activity/volume)Ordered By: Marlon Molina on 05-20-2022 AST [Catalytic activity/Vol] 21 U/L 10-42 [facility] Serum or plasma calcium flakita urement (mass/volume)Ordered By: Marlon Molina on 05-20-2022 Calcium [Mass/Vol] 8.8 mg/dL 8.2-10.2 [facility] Serum or plasma chloride patrice surement (moles/volume)Ordered By: Marlon Molina on 05-20-2022 Chloride [Moles/Vol] 99 mmol/L 95-114 [facility] Serum or plasma glucose flakita urement (mass/volume)Ordered By: Marlon Molina on 05-20-2022 Glucose [Mass/Vol] 191 mg/dL 70-100 [facility] Comment on above: ADA recommended refe rence rangeRandom Glucose Reference Range is dependent on time and content of last meal. Glucose of more than 200 mg/dL in a nonstressed, ambulatory subject supports the diagnosis of Diabetes Mellitus. Serum or plasma potassium me asurement (moles/volume)Ordered By: Marlon Molina on 05-20-2022 Potassium [Moles/Vol] 4.1 mmol/L 3.5-5.1 [facility] Serum or plasma sodium measu rement (moles/volume)Ordered By: Marlon Molina on 05-20-2022 Sodium [Moles/Vol] 136 mmol/L 136-146 [facility] Serum or plasma total biliru bin measurement (mass/volume)Ordered By: Marlon Molina on 05-20-2022 Bilirubin [Mass/Vol] 0.3 mg/dL 0.3-1.2 [facility] Serum or plasma total carbon dioxide measurement (moles/volume)Ordered By: Marlon Molina on 05-20-2022 CO2 [Moles/Vol] 24.7 mmol/L 22.0-30.0 [facility] Serum or plasma urea nitroge n measurement (mass/volume)Ordered By: Marlon Molina on 05-20-2022 Urea nitrogen [Mass/Vol] 15 mg/dL 9-23 [facility] Prothrombin Time INRon 05-06 INR Coag (PPP) [Relative time] 1.5 {INR} [employer] Other Prothrombin Time INR [employer] [place] Other Prothrombin Time INRon 04-08 INR Coag (PPP) [Relative time] 1.8 {INR} [employer] Other Prothrombin Time INR [facility] [employer] [place] Other Prothrombin Time INRon 03-13 INR Coag (PPP) [Relative time] 2.3 {INR} [employer] Other Prothrombin Time INR [facility] [employer] Other Prothrombin Time INRon 02-27 INR Coag (PPP) [Relative time] 2.3 {INR} [employer] Other Prothrombin Time INR [facility] [employer] Other COVID-19 Positive/NegativeOr dered By: Tang Shrestha on 02-26-2022 SARS-CoV-2 (COVID-19) N gene ZHAO+probe Ql (Resp) Negative Negative [facility] Comment on above: Testing for SARS-CoV -2 by RT-PCRThis test was developed and its performance characteristics determined by [employer] and validated at the [facility]. This test has not been FDA cleared [...] INR Coag (PPP) [Relative time] 2.0 {INR} [employer] Other Prothrombin Time INR [facility] [employer] Other Prothrombin Time INRon 01-06 INR Coag (PPP) [Relative time] 1.4 {INR} [employer] Other Prothrombin Time INR [facility] [employer] Other Prothrombin Time INRon 12-23 INR Coag (PPP) [Relative time] 1.7 {INR} [facility] [employer] Other Prothrombin Time INR [facility] [employer] Other Prothrombin Time INRon 12-11 INR Coag (PPP) [Relative time] 2.9 {INR} [facility] [employer] Other Prothrombin Time INR [facility] [employer] Other Prothrombin Time INRon 11-27 INR Coag (PPP) [Relative time] 1.7 {INR} [facility] [employer] Other Prothrombin Time INR [facility] [employer] Other Prothrombin Time INRon 11-12 INR Coag (PPP) [Relative time] 1.9 {INR} [facility] [employer] Other Prothrombin Time INR [facility] [employer] Other Prothrombin Time INRon 10-31 INR Coag (PPP) [Relative time] 2.1 {INR} [facility] [employer] Other Prothrombin Time INR [facility] [facility] [employer] Other Prothrombin Time INRon 10-14 INR Coag (PPP) [Relative time] 2.5 {INR} [facility] [employer] Other Prothrombin Time INR [facility] [employer] Other Prothrombin Time INRon 09-30 INR Coag (PPP) [Relative time] 2.6 {INR} [facility] [employer] [place] Other Prothrombin Time INR [facility] [employer] [place] Other Prothrombin Time INRon 09-12 INR Coag (PPP) [Relative time] 1.8 {INR} [facility] [employer] [place] Other Prothrombin Time INR [facility] [employer] [place] Other Prothrombin Time INRon 08-29 INR Coag (PPP) [Relative time] 2.1 {INR} [facility] [employer] Other Prothrombin Time INR [facility] [employer] Other Prothrombin Time INRon 08-15 Prothrombin Time INR 1.5 [facility] [employer] Other Prothrombin Time INRon 08-01 INR Coag (PPP) [Relative time] 2.5 {INR} [facility] [employer] Other Prothrombin Time INR [facility] [employer] Other Prothrombin Time INRon 07-15 INR Coag (PPP) [Relative time] 2.6 {INR} [facility] [employer] [place] Other Prothrombin Time INR [facility] [employer] Other Prothrombin Time INRon 07-03 INR Coag (PPP) [Relative time] 2.4 {INR} [facility] [employer] [place] Other Prothrombin Time INR [facility] [employer] Other Prothrombin Time INRon 06-19 INR Coag (PPP) [Relative time] 1.8 {INR} [facility] [employer] [place] Other Prothrombin Time INR [facility] [employer] Other Prothrombin Time INRon 05-28 INR Coag (PPP) [Relative time] 2.1 {INR} [facility] [employer] Other Prothrombin Time INR [facility] [employer] Other Prothrombin Time INRon 05-15 INR Coag (PPP) [Relative time] 1.6 {INR} [employer] Other Prothrombin Time INR [facility] [employer] [place] Other Vital Signs Date Time Vital Sign Value Performing Clinician Facility 01-09-2025 08:47-0400 Body height 154.9 cm Kristophervince Herzog DO Work Phone: [facility] 01-09-2025 08:47-0400 Body mass index (BMI) [Ratio] 33.82 kg/m2 Kristopher Herzog DO Work Phone: [facility] 01-09-2025 08:47-0400 Body weight 81.19 kg Kristopher Herzog DO Work Phone: [facility] 01-09-2025 08:47-0400 Diastolic blood pressure 72 mm[Hg] Kristopher Herzog DO Work Phone: [facility] 01-09-2025 08:47-0400 Heart rate 68 /min Kristopher Herzog DO Work Phone: [facility] 01-09-2025 08:47-0400 SaO2% (BldA) [Mass fraction] 97 % Kristopher Herzog DO Work Phone: [facility] 01-09-2025 08:47-0400 Systolic blood pressure 112 mm[Hg] Kristopher Herzog DO Work Phone: [facility] 12-16-2024 09:20-0400 Body height 154.9 cm Radha Itdee DO Work Phone: [facility] 12-16-2024 09:20-0400 Body mass index (BMI) [Ratio] 32.5 kg/m2 Radha Itzkowitz DO Work Phone: [facility] 12-16-2024 09:20-0400 Body weight 78.02 kg Radha Itdee DO Work Phone: [facility] 12-14-2024 09:01-0400 Body height 154.9 cm Kristopher Herzog DO Work Phone: [facility] 12-14-2024 09:01-0400 Body mass index (BMI) [Ratio] 32.61 kg/m2 Kristopher Herzog DO Work Phone: [facility] 12-14-2024 09:01-0400 Body weight 78.29 kg Kristopher Herzog DO Work Phone: [facility] 12-14-2024 09:01-0400 Heart rate 72 /min Kristopher Herzog DO Work Phone: [facility] 12-14-2024 09:01-0400 SaO2% (BldA) [Mass fraction] 99 % Kristopher Chuy DO Work Phone: [facility] 10-25-2024 14:36-0500 Diastolic blood pressure 58 mm[Hg] Venita Didion ASSURANCE SPECIALIST Work Phone: [facility] 10-25-2024 14:36-0500 Heart rate 74 /min Venita Didion ASSURANCE SPECIALIST Work Phone: [facility] 10-25-2024 14:36-0500 Respiratory rate 16 /min Venita Didion ASSURANCE SPECIALIST Work Phone: [facility] 10-25-2024 14:36-0500 SaO2% (BldA) [Mass fraction] 98 % Venita Didion ASSURANCE SPECIALIST Work Phone: [facility] 10-25-2024 14:36-0500 Systolic blood pressure 120 mm[Hg] Venita Didion ASSURANCE SPECIALIST Work Phone: [facility] 10-07-2024 09:08-0500 Body height 154.94 cm [facility] 10-07-2024 09:08-0500 Body mass index (BMI) [Ratio] 33.6 kg/m2 [facility] 10-07-2024 09:08-0500 Body weight 80.73 kg [facility] 10-07-2024 09:08-0500 Diastolic blood pressure 75 mm[Hg] [facility] 10-07-2024 09:08-0500 Heart rate 73 /min [facility] 10-07-2024 09:08-0500 Systolic blood pressure 127 mm[Hg] [facility] 10-03-2024 09:14-0500 Body height 156.2 cm Kristopher Herzog DO Work Phone: [facility] 10-03-2024 09:14-0500 Body mass index (BMI) [Ratio] 33.09 kg/m2 Kristopher Herzog DO Work Phone: [facility] 10-03-2024 09:14-0500 Body weight 80.74 kg Kristopher Herzog DO Work Phone: [facility] 10-03-2024 09:14-0500 Diastolic blood pressure 58 mm[Hg] Kristopher Herzog DO Work Phone: [facility] 10-03-2024 09:14-0500 Heart rate 74 /min Kristopher Herzog DO Work Phone: [facility] 10-03-2024 09:14-0500 SaO2% (BldA) [Mass fraction] 99 % Kristopher Herzog DO Work Phone: [facility] 10-03-2024 09:14-0500 Systolic blood pressure 120 mm[Hg] Kristopher Herzog DO Work Phone: [facility] 06-29-2024 10:39-0500 Body height 154.94 cm [facility] 06-29-2024 10:39-0500 Body mass index (BMI) [Ratio] 33.8 kg/m2 [facility] 06-29-2024 10:39-0500 Body weight 81.19 kg [facility] 06-22-2024 08:50-0400 Body height 156.2 cm Adam Smith ASSURANCE SPECIALIST Work Phone: [facility] 06-22-2024 08:50-0400 Body mass index (BMI) [Ratio] 33.09 kg/m2 Adam Smith ASSURANCE SPECIALIST Work Phone: [facility] 06-22-2024 08:50-0400 Body weight 80.74 kg Adam Smith ASSURANCE SPECIALIST Work Phone: [facility] 06-22-2024 08:50-0400 Diastolic blood pressure 74 mm[Hg] Adam Smith ASSURANCE SPECIALIST Work Phone: [facility] 06-22-2024 08:50-0400 Heart rate 79 /min Adam Smith ASSURANCE SPECIALIST Work Phone: [facility] 06-22-2024 08:50-0400 SaO2% (BldA) [Mass fraction] 99 % Adam Hedrickos ASSURANCE SPECIALIST Work Phone: [facility] 06-22-2024 08:50-0400 Systolic blood pressure 120 mm[Hg] Adam Smith ASSURANCE SPECIALIST Work Phone: [facility] 04-29-2024 08:53-0400 Body height 156.2 cm Radha Itzkowitz DO Work Phone: [facility] 04-29-2024 08:53-0400 Body mass index (BMI) [Ratio] 33.46 kg/m2 Radha Itzkowitz DO Work Phone: [facility] 04-29-2024 08:53-0400 Body weight 81.65 kg Radha Itzkowitz DO Work Phone: [facility] 04-29-2024 08:53-0400 Diastolic blood pressure 74 mm[Hg] Rdaha Itzkowitz DO Work Phone: [facility] 04-29-2024 08:53-0400 Systolic blood pressure 122 mm[Hg] Radha Itzkowitz DO Work Phone: [facility] 02-09-2024 11:03-0400 Diastolic blood pressure 60 mm[Hg] DO Kristophervince Herzog Work Phone: [facility] 02-09-2024 11:03-0400 Heart rate 76 /min DO Kristopher Chuy Work Phone: [facility] 02-09-2024 11:03-0400 Respiratory rate 16 /min DO Kristopher Chuy Work Phone: [facility] 02-09-2024 11:03-0400 SaO2% (BldA) [Mass fraction] 99 % DO Kristopher Chuy Work Phone: [facility] 02-09-2024 11:03-0400 Systolic blood pressure 128 mm[Hg] DO Kristopher Chuy Work Phone: [facility] 02-09-2024 09:32-0400 Body height 154.94 cm DO Kristopher Herzog Work Phone: [facility] 02-09-2024 09:32-0400 Body temperature 99 [degF] DO Kristopher Herzog Work Phone: [facility] 02-09-2024 09:32-0400 Body weight 78.92 kg DO Kristopher Herzog Work Phone: [facility] 12-28-2023 11:17-0400 Diastolic blood pressure 77 mm[Hg] DO Kristopher Herzog Work Phone: [facility] 12-28-2023 11:17-0400 Heart rate 77 /min DO Kristopher Herzog Work Phone: [facility] 12-28-2023 11:17-0400 Respiratory rate 16 /min DO Kristopher Herzog Work Phone: [facility] 12-28-2023 11:17-0400 SaO2% (BldA) [Mass fraction] 99 % DO Kristopher Herzog Work Phone: [facility] 12-28-2023 11:17-0400 Systolic blood pressure 113 mm[Hg] DO Kristopher Herzog Work Phone: [facility] 12-28-2023 08:33-0400 Body height 154.94 cm DO Kristopher Herzog Work Phone: [facility] 12-28-2023 08:33-0400 Body weight 79.83 kg DO Kristopher Herzog Work Phone: [facility] 12-07-2023 10:06-0400 Body height 156.21 cm DO Kristopher Herzog Work Phone: [facility] 12-07-2023 10:06-0400 Body mass index (BMI) [Ratio] 32.7 kg/m2 DO Kristopher eHrzog Work Phone: [facility] 12-07-2023 10:06-0400 Body weight 79.83 kg DO Kristopher Chuy Work Phone: [facility] 12-07-2023 10:06-0400 Diastolic blood pressure 74 mm[Hg] DO Kristopher Chuy Work Phone: [facility] 12-07-2023 10:06-0400 Heart rate 79 /min DO Kristopher Chuy Work Phone: [facility] 12-07-2023 10:06-0400 Systolic blood pressure 142 mm[Hg] DO Kristopher Chuy Work Phone: [facility] 12-15-2022 17:21-0400 Body temperature 98.1 [degF] DO Kristopher Chuy Work Phone: [facility] 12-15-2022 17:21-0400 Diastolic blood pressure 77 mm[Hg] DO Kristopher Chuy Work Phone: [facility] 12-15-2022 17:21-0400 Heart rate 83 /min DO Kristopher Herzog Work Phone: [facility] 12-15-2022 17:21-0400 Respiratory rate 16 /min DO Kristopher Herzog Work Phone: [facility] 12-15-2022 17:21-0400 SaO2% (BldA) [Mass fraction] 99 % DO Kristopher Herzog Work Phone: [facility] 12-15-2022 17:21-0400 Systolic blood pressure 158 mm[Hg] DO Kristopher Chuy Work Phone: [facility] 12-15-2022 06:00-0400 Body weight 85.3 kg DO Kristopher Chuy Work Phone: [facility] 12-13-2022 20:01-0400 Diastolic blood pressure 81 mm[Hg] DO Kristopher Chuy Work Phone: [facility] 04-22-2023 20:01-0400 Heart rate 75 /min DO Kristopher Chuy Work Phone: [facility] 12-13-2022 20:01-0400 Respiratory rate 18 /min DO Kristopher Chuy Work Phone: [facility] 12-13-2022 20:01-0400 SaO2% (BldA) [Mass fraction] 99 % DO Kristopher Chuy Work Phone: [facility] 12-13-2022 20:01-0400 Systolic blood pressure 167 mm[Hg] DO Kristopher Chuy Work Phone: [facility] 12-13-2022 13:48-0400 Body height 160.02 cm DO Kristopher Belloman Work Phone: [facility] 12-13-2022 13:48-0400 Body temperature 98.6 [degF] DO Kristopher Herzog Work Phone: [facility] 12-13-2022 13:48-0400 Body weight 88.3 kg DO Kristopher Herzog Work Phone: [facility] 09-23-2022 19:59-0500 Diastolic blood pressure 72 mm[Hg] DO Kristopher Chuy Work Phone: [facility] 09-23-2022 19:59-0500 Heart rate 77 /min DO Kristopher Chuy Work Phone: [facility] 09-23-2022 19:59-0500 Respiratory rate 18 /min DO Kristophervince Herzog Work Phone: [facility] 09-23-2022 19:59-0500 SaO2% (BldA) [Mass fraction] 97 % DO Kristopher Chuy Work Phone: [facility] 09-23-2022 19:59-0500 Systolic blood pressure 168 mm[Hg] DO Kristopher Chuy Work Phone: [facility] 09-23-2022 18:17-0500 Body height 160.02 cm DO Kristopher Herzog Work Phone: [facility] 09-23-2022 18:17-0500 Body temperature 98.7 [degF] DO Kristopher Chuy Work Phone: [facility] 09-23-2022 18:17-0500 Body weight 85.7 kg DO Kristophervince Herzog Work Phone: [facility] 07-16-2022 09:56-0500 Body temperature 98.8 [degF] DO Kristopher Herzog Work Phone: [facility] 07-16-2022 09:56-0500 Diastolic blood pressure 70 mm[Hg] DO Kristophervince Herzog Work Phone: [facility] 07-16-2022 09:56-0500 Heart rate 79 /min DO Kristopher Herzog Work Phone: [facility] 07-16-2022 09:56-0500 Respiratory rate 17 /min DO Kristopher Herzog Work Phone: [facility] 07-16-2022 09:56-0500 SaO2% (BldA) [Mass fraction] 98 % DO Kristopher Herzog Work Phone: [facility] 07-16-2022 09:56-0500 Systolic blood pressure 150 mm[Hg] DO Kristopher Herzog Work Phone: [facility] 07-16-2022 08:29-0500 Body height 160.02 cm DO Kristopher Herzog Work Phone: [facility] 07-16-2022 08:29-0500 Body weight 83 kg DO Kristopher Belloman Work Phone: [facility] 06-04-2022 09:13-0400 Body temperature 97.9 [degF] DO Kristopher Chuy Work Phone: [facility] 06-04-2022 09:13-0400 Diastolic blood pressure 64 mm[Hg] DO Kristopher Chuy Work Phone: [facility] 06-04-2022 09:13-0400 Heart rate 93 /min DO Kristopher Chuy Work Phone: [facility] 06-04-2022 09:13-0400 Respiratory rate 20 /min DO Kristopher Chuy Work Phone: [facility] 06-04-2022 09:13-0400 SaO2% (BldA) [Mass fraction] 97 % DO Kristopher Chuy Work Phone: [facility] 06-04-2022 09:13-0400 Systolic blood pressure 134 mm[Hg] DO Kristopher Chuy Work Phone: [facility] 05-29-2022 08:18-0400 Body temperature 98.1 [degF] DO Kristopher Herzog Work Phone: [facility] 05-29-2022 08:18-0400 Diastolic blood pressure 76 mm[Hg] DO Kristopher Herzog Work Phone: [facility] 05-29-2022 08:18-0400 Heart rate 77 /min DO Kristophervince Herzog Work Phone: [facility] 05-29-2022 08:18-0400 Respiratory rate 20 /min DO Kristopher Herzog Work Phone: [facility] 05-29-2022 08:18-0400 SaO2% (BldA) [Mass fraction] 98 % DO Kristopher Herzog Work Phone: [facility] 05-29-2022 08:18-0400 Systolic blood pressure 146 mm[Hg] DO Kristopher Chuy Work Phone: [facility] 02-11-2022 08:39-0400 Body weight 0 kg DO Kristopher Chuy Work Phone: [facility] 01-28-2022 16:15-0400 Body height 157.48 cm Tang Shrestha Other [employer] Other 01-28-2022 16:15-0400 Body mass index (BMI) [Ratio] 31.64 kg/m2 Tang Shrestha Other [employer] Other 01-28-2022 16:15-0400 Body weight 78.47 kg Tang Shrestha Other [employer] Other Encounters Encounter Date Encounter Type Care Provider Facility Start: 01-09-2025 End: 01-09-2025 Bamboo flowsheet Kristopher Herzog DO Work Phone: [facility] Start: 01-09-2025 End: 01-09-2025 BamSunglassheet Kristopher Herzog DO Work Phone: [facility] Start: 01-09-2025 End: 01-09-2025 Office outpatient visit 40 minutes Kristopher Herzog DO Work Phone: [facility] Comment on above: Medicare annual well ness visit, subsequent (Primary Dx); Advance care planning; Type 2 diabetes mellitus with stage 3a chronic kidney disease, with long-term current use of insulin (HCC) ([facility]/HCC); Diabetic peripheral neuropathy associated with type 2 diabetes mellitus (CMS/HCC); care home current use of insulin ([facility]/HCC); Mixed hyperlipidemia (CMS/HCC); Steatosis of liver; Primary hypertension (CMS/HCC); Chronic deep vein thrombosis (DVT) of femoral vein of left lower extremity (CMS/HCC); Spinal stenosis of lumbosacral region; 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 Start: 01-09-2025 End: 01-09-2025 Patient encounter procedure Kristopher Herzog DO Work Phone: [facility] Work Phone: Start: 01-09-2025 End: 01-09-2025 ambulatory KRISTOPHER HERZOG Not Available Start: 01-05-2025 End: 01-05-2025 Clinisync Result Encounter Kristopher Herzog DO Work Phone: [facility] Unsolicited Start: 01-05-2025 End: 01-05-2025 Clinisync Result Encounter Kristopher Herzog DO Work Phone: [facility] Unsolicited Start: 01-04-2025 End: 01-04-2025 ambulatory Kristopher Herzog DO Work Phone: [facility] Work Phone: Start: 01-04-2025 End: 01-04-2025 Patient encounter procedure Kristopher Herzog DO Work Phone: [facility] Work Phone: Start: 12-16-2024 End: 12-16-2024 ambulatory RADHA H ITZKOCHRISTOPHER Not Available Start: 12-16-2024 End: 12-16-2024 Office outpatient visit 25 minutes Radha H Itzelfegotz DO Work Phone: [facility] Comment on above: Axillary lymphadenop athy (Primary Dx); H/O diagnostic mammography Start: 12-14-2024 End: 12-14-2024 Bamboo flowsheet Kristopher Herzog DO Work Phone: [facility] Start: 12-14-2024 End: 12-14-2024 Bamboo flowsheet Kristopher Herzog DO Work Phone: [facility] Start: 12-14-2024 End: 12-14-2024 Office outpatient visit 40 minutes Kristopher Herzog DO Work Phone: [facility] Comment on above: Diabetic peripheral neuropathy associated with type 2 diabetes mellitus (CMS/HCC) (Primary Dx); care home current use of insulin (CMS/HCC); Mixed hyperlipidemia (CMS/HCC); Hypercoagulable state (CMS/HCC); 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; Steatosis of liver; Primary hypertension (CMS/HCC); Venous insufficiency; Primary osteoarthritis of left knee Start: 12-14-2024 End: 12-14-2024 ambulatory KRISTOPHER HERZOG Not Available Start: 12-07-2024 End: 12-07-2024 ambulatory Radha Verduzco Facility:[facility] Start: 12-07-2024 End: 12-07-2024 Patient encounter procedure Kristopher Herzog DO Work Phone: [facility] Comment on above: Leg numbness (Primar y Dx) Start: 11-30-2024 End: 11-30-2024 ambulatory [facility] Work Phone: Start: 11-30-2024 End: 11-30-2024 Patient encounter procedure [facility] Work Phone: Start: 11-23-2024 End: 11-23-2024 ambulatory VENITA L DIDION Not Available Start: 11-15-2024 End: 11-15-2024 ambulatory VENITA L DIDION Not Available Start: 11-02-2024 End: 11-02-2024 ambulatory [facility] Work Phone: Start: 11-02-2024 End: 11-02-2024 Patient encounter procedure [facility] Work Phone: Start: 10-31-2024 End: 10-31-2024 ambulatory MARLON BRANHAM Not Available Start: 10-27-2024 End: 10-27-2024 ambulatory VENITA L DIDION Not Available Start: 10-25-2024 End: 10-25-2024 ambulatory VENITA L DIDION Not Available Start: 10-25-2024 End: 10-25-2024 Office outpatient visit 25 minutes Venita L Didion ASSURANCE SPECIALIST Work Phone: [facility] Comment on above: Nonintractable heada shelby, unspecified chronicity pattern, unspecified headache type (Primary Dx); Neck pain; Paresthesia of left arm; Numbness of fingers Start: 10-23-2024 Non-patient / Non-visit [facility] Work Phone: Start: 10-07-2024 End: 10-07-2024 ambulatory [facility] Work Phone: Start: 10-07-2024 End: 10-07-2024 Patient encounter procedure [facility] Work Phone: Start: 10-05-2024 End: 10-05-2024 ambulatory [facility] Work Phone: Start: 10-05-2024 End: 10-05-2024 Patient encounter procedure [facility] Work Phone: Start: 10-03-2024 End: 10-03-2024 Office outpatient visit 25 minutes Kristopher Herzog DO Work Phone: [facility] Comment on above: Primary osteoarthrit is of right knee (Primary Dx); Hypercoagulable state (CMS/HCC); Diabetic peripheral neuropathy associated with type 2 diabetes mellitus (CMS/HCC); Primary hypertension (CMS/HCC); Ulcerative colitis without complications, unspecified location (CMS/HCC); 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); 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; Sacral ulcer, limited to breakdown of skin (CMS/HCC) Start: 10-03-2024 End: 10-03-2024 ambulatory KRISTOPHER HERZOG Not Available Start: 09-09-2024 End: 09-09-2024 ambulatory [facility] Work Phone: Start: 09-09-2024 End: 09-09-2024 Patient encounter procedure [facility] Work Phone: Start: 08-03-2024 End: 08-03-2024 Patient encounter procedure [facility] Work Phone: Start: 08-01-2024 End: 08-01-2024 Bamboo jodi Branham DPM Work Phone: [facility] Start: 08-01-2024 End: 08-01-2024 Cindy Branham DPM Work Phone: [facility] Start: 08-01-2024 End: 08-01-2024 Office outpatient visit 10 minutes Marlon Branham DPM Work Phone: [facility] Comment on above: 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) (Primary Dx); Onychomycosis; Corns and callosities; Hallux malleus, left; Pain in both feet Start: 08-01-2024 End: 08-01-2024 ambulatory MARLON BRANHAM Not Available Start: 07-04-2024 End: 07-04-2024 ambulatory [facility] Work Phone: Start: 07-04-2024 End: 07-04-2024 Patient encounter procedure [facility] Work Phone: Start: 06-29-2024 End: 06-29-2024 ambulatory [facility] Work Phone: Start: 06-29-2024 End: 06-29-2024 Patient encounter procedure [facility] Work Phone: Start: 06-22-2024 End: 06-22-2024 Office outpatient visit 25 minutes Adam Smith ASSURANCE SPECIALIST Work Phone: [facility] Comment on above: Primary hypertension (CMS/HCC) (Primary Dx); Mixed hyperlipidemia (CMS/HCC); Obstructive sleep apnea syndrome; Peripheral venous insufficiency; Chronic deep vein thrombosis (DVT) of femoral vein of left lower extremity (CMS/HCC); 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 machines and devices; Diabetic peripheral neuropathy associated with type 2 diabetes mellitus (CMS/HCC); Gastroesophageal reflux disease without esophagitis; Hypercoagulable state (CMS/HCC); 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; care home current use of insulin (CMS/HCC); OAB (overactive bladder); Class 1 obesity; Spinal stenosis of lumbosacral region; Ulcerative colitis without complications, unspecified location (CMS/HCC); Need for immunization against influenza; Atrophic vaginitis; Bilateral leg edema Start: 06-22-2024 End: 06-22-2024 ambulatory ADAM SMITH Not Available Start: 06-17-2024 End: 06-18-2024 Orders Only Adam Ye Sarah ASSURANCE SPECIALIST Work Phone: [facility] Unsolicited Start: 06-06-2024 End: 06-06-2024 ambulatory [facility] Work Phone: Start: 06-06-2024 End: 06-06-2024 Patient encounter procedure [facility] Work Phone: Start: 05-09-2024 End: 05-09-2024 ambulatory DO Kristopher Herzog Work Phone: [facility] Work Phone: Start: 05-09-2024 End: 05-09-2024 Patient encounter procedure DO Kristopher Herzog Work Phone: [facility] Work Phone: Start: 04-29-2024 End: 04-29-2024 Office outpatient visit 25 minutes Radha Verduzco DO Work Phone: [facility] Comment on above: Axillary lymphadenop athy (Primary Dx) Start: 04-29-2024 End: 04-29-2024 ambulatory RADHANOE VERDUZCO Not Available Start: 04-27-2024 End: 04-27-2024 Bamboo flowsheet Marlon Branham DPM Work Phone: [facility] Start: 04-27-2024 End: 04-27-2024 Bamboo flowsheet Marlon Branham DPM Work Phone: [facility] Start: 04-27-2024 End: 04-27-2024 ambulatory MARLON BRANHAM Not Available Start: 04-27-2024 End: 04-27-2024 Patient encounter procedure Marlon Branham DPM Work Phone: [facility] Comment on above: 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) (Primary Dx); Onychomycosis; Corns and callosities; Pain in both feet Start: 04-14-2024 End: 04-14-2024 ambulatory DO Kristopher Herzog Work Phone: [facility] Work Phone: Start: 04-14-2024 End: 04-14-2024 Patient encounter procedure DO Kristopher Herzog Work Phone: [facility] Work Phone: Start: 03-14-2024 End: 03-14-2024 ambulatory DO Kristopher Herzog Work Phone: [facility] Work Phone: Start: 03-14-2024 End: 03-14-2024 Patient encounter procedure DO Kristopher Herzog Work Phone: [facility] Work Phone: Start: 03-09-2024 End: 03-09-2024 ambulatory KRISTOPHER HERZOG Not Available Start: 02-17-2024 End: 02-17-2024 ambulatory DO Kristophervince Herzog Work Phone: [facility] Work Phone: Start: 02-17-2024 End: 02-17-2024 Patient encounter procedure DO Kristopher Herzog Work Phone: [facility] Work Phone: Start: 02-16-2024 End: 02-16-2024 ambulatory KRISTOPHER HERZOG Not Available Start: 02-09-2024 End: 02-09-2024 Emergency department patient visit DO Kristopher Chuy Work Phone: [facility]-Emergency Room Work Phone: Start: 01-20-2024 End: 01-20-2024 ambulatory DO Kristophervince Herzog Work Phone: [facility] Work Phone: Start: 01-20-2024 End: 01-20-2024 Patient encounter procedure DO Kristopher Chuy Work Phone: [facility] Work Phone: Start: 01-12-2024 End: 01-12-2024 ambulatory KRISTOPHER HERZOG Not Available Start: 01-05-2024 End: 01-05-2024 Patient encounter procedure DO Kristopher Herzog Work Phone: [facility] Work Phone: Start: 12-28-2023 Non-patient / Non-visit DO Preet Belloman Work Phone: [facility] Gastroenterology Work Phone: Start: 12-28-2023 End: 12-28-2023 Admission to same day surgery center DO Kristopher Herzog Work Phone: [facility]-Digestive Health Work Phone: Start: 12-28-2023 End: 12-28-2023 ambulatory DO Kristopher Herzog Work Phone: [facility] Work Phone: Start: 12-14-2023 End: 12-14-2023 ambulatory DO Kristopher Herzog Work Phone: [facility] Work Phone: Start: 12-14-2023 End: 12-14-2023 Patient encounter procedure DO Kristopher Herzog Work Phone: [facility] Work Phone: Start: 12-07-2023 End: 12-07-2023 ambulatory DO Kristopher Herzog Work Phone: [facility] Work Phone: Start: 12-07-2023 End: 12-07-2023 Patient encounter procedure DO Kristopher Herzog Work Phone: [facility] Work Phone: Start: 12-07-2023 End: 12-07-2023 ambulatory DO Kristopher Herzog Work Phone: [facility] Work Phone: Start: 12-07-2023 End: 12-07-2023 Patient encounter procedure DO Kristopher Herzog Work Phone: [facility] Gastroenterology Work Phone: Start: 11-09-2023 End: 11-09-2023 ambulatory DO Kristopher Herzog Work Phone: [facility] Work Phone: Start: 11-09-2023 End: 11-09-2023 Patient encounter procedure DO Kristopher Herzog Work Phone: [facility] Work Phone: Start: 10-05-2023 ([facility] R A/c) [facility] Re peat A/C Lauren Vance [facility] Start: 10-05-2023 End: 10-05-2023 ambulatory DO Kristopher Herzog Work Phone: [employer] [facility] [employer] Other Start: 10-05-2023 End: 10-05-2023 Discharged Recurring DO Kristopher Herzog Work Phone: [facility] Work Phone: Start: 09-29-2023 End: 09-29-2023 ambulatory Lauren Vance Other [employer] Other Start: 09-29-2023 Telephone encounter Lauren Vance [facility] Start: 09-24-2023 Telephone encounter Kimberly Berger LPN [facility] Start: 09-07-2023 ([facility] R A/c) [facility] Re peat A/C Tita Roberts [facility] Start: 09-07-2023 End: 09-07-2023 ambulatory Tita Roberts Other [employer] [facility] [employer] Other Start: 08-11-2023 ([facility] R A/c) [facility] Re peat A/C Tita Roberts [facility] Start: 08-11-2023 End: 08-11-2023 ambulatory Tita Roberts Other [employer] Other Start: 07-14-2023 ([facility] R A/c) [facility] Re [facility]at A/[facility] Start: 07-14-2023 End: 07-14-2023 ambulatory Tita Roberts Other [employer] Other Start: 06-15-2023 ([facility] R A/c) [facility] Re peat A/C Tita Roberts [facility] Start: 06-15-2023 End: 06-15-2023 ambulatory Tita Roberts Other [employer] Other Start: 06-03-2023 End: 06-03-2023 ambulatory DO Kristopher Herzog Work Phone: [facility] Work Phone: Start: 06-03-2023 End: 06-03-2023 Patient encounter procedure DO Kristopher Herzog Work Phone: [facility]-Ultrasound Cntr for Breast Car Start: 05-25-2023 Registered Recurring DO Manuela Herzog Work Phone: [facility] Work Phone: Start: 04-30-2023 ([facility] R A/c) [facility] Re peat A/C Lauren Paredest [facility] Start: 04-30-2023 End: 04-30-2023 ambulatory Lauren Fitt Other [employer] Other Start: 04-08-2023 ([facility] R A/c) [facility] Re peat A/C Kiersten Qureshi [facility] Start: 04-08-2023 End: 04-08-2023 ambulatory Kiersten Oley Other [employer] Other Start: 03-23-2023 ([facility] R A/c) [facility] Re peat A/C Kiersten Qureshi [facility] Start: 03-23-2023 End: 03-23-2023 ambulatory Kiersten Titus Other [employer] Other Start: 03-11-2023 ([facility] R A/c) [facility] Re peat A/C Kiersten Qureshi [facility] Start: 03-11-2023 End: 03-11-2023 ambulatory Kiersten Oley Other [employer] Other Start: 02-23-2023 ([facility] R A/c) [facility] Re peat A/C Kiersten Qureshi [facility] Start: 02-23-2023 End: 02-23-2023 ambulatory Kiersten Titus Other [employer] Other Start: 12-17-2022 End: 12-17-2022 ambulatory DO Kristopher Chuy Work Phone: [facility] Work Phone: Start: 12-17-2022 End: 12-17-2022 Departed Referred DO Kristopher Herzog Work Phone: [facility]-Lab [facility] Work Phone: Start: 12-15-2022 ambulatory Facility:[id number] Start: 12-13-2022 End: 12-15-2022 Evaluation and management of inpatient DO Kristopher Herzog Work Phone: [facility] Work Phone: Start: 12-13-2022 observation encounter DO Wilfrido reyna Chuy Work Phone: [facility] Work Phone: Start: 12-10-2022 ([facility] R A/c) [facility] Re peat A/C Kiersten Qureshi [facility] Start: 12-10-2022 End: 12-10-2022 ambulatory Kiersten Qureshi Other [employer] Other Start: 12-10-2022 Registered Recurring DO Manuela Herzog Work Phone: [facility] Work Phone: Start: 12-01-2022 End: 12-01-2022 ambulatory DO Kristopher Chuy Work Phone: [facility] Work Phone: Start: 12-01-2022 End: 12-01-2022 Patient encounter procedure DO Kristopher Herzog Work Phone: [facility] Work Phone: Start: 11-12-2022 ([facility] R A/c) [facility] Re peat A/C Kiersten Qureshi [facility] Start: 11-12-2022 End: 11-12-2022 ambulatory Kiersten Qureshi Other [employer] Other Start: 11-12-2022 Registered Recurring DO Manuela Herzog Work Phone: [facility] Work Phone: Start: 10-15-2022 ([facility] R A/c) [facility] Re peat A/C Kiersten Qureshi [facility] Start: 10-15-2022 End: 10-15-2022 ambulatory Kiersten Qureshi Other [employer] [facility] [employer] Other Start: 09-29-2022 End: 09-29-2022 ambulatory Lauren Vance Other [employer] Other Start: 09-29-2022 Telephone encounter Lauren deal [facility] Start: 09-23-2022 End: 09-23-2022 Emergency department patient visit DO Kristopher Herzog Work Phone: [facility]Emergency [facility] Work Phone: Start: 09-17-2022 ([facility] R A/c) [facility]at A/[facility] Start: 09-17-2022 End: 09-17-2022 ambulatory Kiersten Llamasber Other [employer] Other Start: 09-17-2022 Registered Recurring DO Manuela Herzog Work Phone: [facility] Work Phone: Start: 09-01-2022 End: 09-01-2022 ambulatory Lauren Vance Other [employer] Other Start: 09-01-2022 Telephone encounter Lauren deal [facility] Start: 08-20-2022 ([facility] R A/c) [facility] Re peat A/C Kiersten Titus [facility] Start: 08-20-2022 End: 08-20-2022 ambulatory Kiersten Titus Other [employer] Other Start: 07-24-2022 ([facility] R A/c) [facility] Re peat A/C Olu Rene [facility] Start: 07-24-2022 End: 07-24-2022 ambulatory Olu Rene Other [employer] Other Start: 07-16-2022 End: 07-16-2022 Emergency department patient visit DO Kristopher Herzog Work Phone: [facility]Emergency Room Start: 06-26-2022 ([facility] R A/c) [facility] Re peat A/C Lauren Fitt [facility] Start: 06-26-2022 End: 06-26-2022 ambulatory Lauren Vance Other [employer] Other Start: 06-26-2022 Registered Recurring DO Manuela Herzog Work Phone: [facility] [facility] Start: 06-23-2022 End: 06-23-2022 ambulatory DO Kristopher Herzog Work Phone: [facility] Work Phone: Start: 06-23-2022 End: 06-23-2022 Patient encounter procedure DO Kristopher Herzog Work Phone: [facility]-Ultrasound [place] Start: 06-09-2022 End: 06-09-2022 Patient encounter procedure DO Kristopher Herzog Work Phone: [facility]-Ultrasound Cntr for Breast Car Start: 06-05-2022 ([facility] R A/c) [facility] Re peat A/C Lauren Reggiet [facility] Start: 06-05-2022 End: 06-05-2022 ambulatory Tang Shrestha Other [employer] Other Start: 06-05-2022 Telephone encounter Tang Santana [facility] Start: 06-05-2022 Registered Recurring DO Manuela Herzog Work Phone: [facility] Start: 06-04-2022 End: 06-04-2022 Discharged Recurring DO Kristopher Herzog Work Phone: [facility]-Infusion Therapy - O/P Start: 05-29-2022 End: 05-29-2022 ambulatory DO Kristopher Herzog Work Phone: [facility] Work Phone: Start: 05-29-2022 End: 05-29-2022 Patient encounter procedure DO Kristopher Herzog Work Phone: [facility]-Lab [facility] [place] Start: 05-29-2022 Registered Recurring DO Manuela Herzog Work Phone: [facility]-Infusion Therapy - O/P Start: 05-22-2022 Registered Recurring DO Manuela Herzog Work Phone: [facility] Start: 05-22-2022 ([facility] R A/c) [facility] Re peat A/C Lauren Fitt [facility] Start: 05-22-2022 End: 05-22-2022 ambulatory Lauren Fitt Other [employer] Other Start: 05-20-2022 End: 05-20-2022 Patient encounter procedure DO Kristopher Herzog Work Phone: [facility]-Lab [facility] Start: 05-06-2022 ([facility] R A/c) [facility] Re peat A/C Lauren Fitt [facility] Start: 05-06-2022 End: 05-06-2022 ambulatory Lauren Fitt Other [employer] Other Start: 04-08-2022 ([facility] R A/c) [facility] Re peat A/C Lauren Fitt [facility] Start: 04-08-2022 End: 04-08-2022 ambulatory Lauren Fitt Other [employer] Other Start: 03-13-2022 ([facility] R A/c) [facility] Re peat A/C Lauren Fitt [facility] Start: 03-13-2022 End: 03-13-2022 ambulatory Lauren Fitt Other [employer] Other Start: 02-28-2022 End: 02-28-2022 Patient encounter procedure DO Kristopher Herzog Work Phone: [facility]Dig[facility]ive [facility] Start: 02-27-2022 ([facility] R A/c) [facility] Re peat A/C Lauren Fitt [facility] Start: 02-27-2022 End: 02-27-2022 ambulatory Lauren Fitt Other [employer] Other Start: 02-26-2022 End: 02-26-2022 Patient encounter procedure DO Kristopher Herzog Work Phone: [facility]-Pre-Surgical Testing Start: 02-17-2022 ([facility] R A/c) [facility] Re peat A/C Lauren Fitt [facility] Start: 02-17-2022 End: 02-17-2022 ambulatory Lauren Fitt Other [employer] Other Start: 02-11-2022 End: 02-11-2022 ambulatory Antonio Thompson Other [employer] Other Start: 02-11-2022 Telephone encounter Antonio Thompson [facility] Start: 01-28-2022 End: 01-28-2022 ambulatory Tang Shrestha Other [employer] Other Start: 01-28-2022 Office outpatient vi sit 15 minutes Tang Shrestha [facility] Gastroenterology Start: 01-21-2022 ([facility] R A/c) [facility] Re peat A/C Lauren Fitt [facility] Start: 01-21-2022 End: 01-21-2022 ambulatory Lauren Fitt Other [employer] Other Start: 01-09-2022 End: 01-09-2022 ambulatory Tang Shrestha Other [employer] Other Start: 01-09-2022 Telephone encounter Tang christianson [facility] Start: 01-06-2022 ([facility] R A/c) [facility] Re peat A/C Lauren Fitt [facility] Start: 01-06-2022 End: 01-06-2022 ambulatory Lauren Fitt Other [employer] Other Start: 12-23-2021 ([facility] R A/c) [facility] Re peat A/C Lauren Fitt [facility] Start: 12-23-2021 End: 12-23-2021 ambulatory Lauren Fitt Other [employer] Other Start: 12-11-2021 ([facility] R A/c) [facility] Re peat A/C Lauren Fitt [facility] Start: 12-11-2021 End: 12-11-2021 ambulatory Lauren Fitt Other [employer] Other Start: 11-28-2021 End: 11-28-2021 ambulatory Tang Shrestha Other [employer] Other Start: 11-28-2021 Telephone encounter Tang christianson [facility] Start: 11-27-2021 ([facility] R A/c) [facility] Re peat A/C Lauren Fitt [facility] Start: 11-27-2021 End: 11-27-2021 ambulatory Lauren Fitt Other [employer] Other Start: 11-25-2021 End: 11-25-2021 ambulatory Lauren Fitt Other [employer] Other Start: 11-25-2021 Telephone encounter Lauren Fitt [facility] Start: 11-14-2021 End: 11-14-2021 ambulatory Lauren Fitt Other [employer] Other Start: 11-14-2021 Telephone encounter Lauren Reggiet [facility] Start: 11-12-2021 ([facility] R A/c) [facility] Re peat A/C Lauren Fitt [facility] Start: 11-12-2021 End: 11-12-2021 ambulatory Lauren Fitt Other [employer] Other Start: 10-31-2021 ([facility] R A/c) [facility] Re peat A/C Lauren Fitt [facility] Start: 10-31-2021 End: 10-31-2021 ambulatory Lauren Fitt Other [employer] Other Start: 10-14-2021 ([facility] R A/c) [facility] Re peat A/C Lauren Fitt [facility] Start: 10-14-2021 End: 10-14-2021 ambulatory Lauren Fitt Other [employer] Other Start: 10-08-2021 End: 10-08-2021 ambulatory Lauren Fitt Other [employer] Other Start: 10-08-2021 Telephone encounter Lauren Reggiet [facility] Start: 09-30-2021 ([facility] R A/c) [facility] Re peat A/C Lauren Fitt [facility] Start: 09-30-2021 End: 09-30-2021 ambulatory Lauren Fitt Other [employer] Other Start: 09-12-2021 ([facility] R A/c) [facility] Re peat A/C Lauren Fitt [facility] Start: 09-12-2021 End: 09-12-2021 ambulatory Lauren Fitt Other [employer] Other Start: 08-29-2021 ([facility] R A/c) [facility] Re peat A/C Lauren Fitt [facility] Start: 08-29-2021 End: 08-29-2021 ambulatory Lauren Fitt Other [employer] Other Start: 08-15-2021 ([facility] R A/c) [facility] Re peat A/C Lauren Fitt [facility] Start: 08-15-2021 End: 08-15-2021 ambulatory Lauren Fitt Other [employer] Other Start: 08-01-2021 ([facility] R A/c) [facility] Re peat A/C Lauren Fitt [facility] Start: 08-01-2021 End: 08-01-2021 ambulatory Lauren Fitt Other [employer] Other Start: 07-15-2021 ([facility] R A/c) [facility] Re peat A/C Lauren Fitt [facility] Start: 07-15-2021 End: 07-15-2021 ambulatory Lauren Fitt Other [employer] Other Start: 07-03-2021 ([facility] R A/c) [facility] Re peat A/C Lauren Fitt [facility] Start: 07-03-2021 End: 07-03-2021 ambulatory Lauren Fitt Other [employer] Other Start: 07-03-2021 Telephone encounter Antonio Peña [facility] Start: 06-19-2021 ([facility] R A/c) [facility] Re peat A/C Lauren Fitt [facility] Start: 05-28-2021 ([facility] R A/c) [facility] Re peat A/C Lauren Fitt [facility] Start: 05-21-2021 Telephone encounter Lauren Carnes [facility] Start: 05-15-2021 ([facility] R A/c) [facility] Re peat A/C Lauren Vance [facility] Start: 05-15-2021 Telephone encounter Lauren Carnes [facility] Procedures Date Procedure Procedure Detail Performing Clinician Start: 01-05-2025 ALL BASIC METABOLIC PANEL Kristopher Herzog DO Work Phone: Start: 12-07-2024 End: 12-07-2024 Mammography Kristopher Herzog DO Work Phone: Start: 06-17-2024 Comprehensive metabo lic panel Adam Smith ASSURANCE SPECIALIST Work Phone: Start: 06-17-2024 Lipid panel Adam Smith ASSURANCE SPECIALIST Work Phone: Start: 06-17-2024 SPECIMEN STATUS REPORT Adam Smith ASSURANCE SPECIALIST Work Phone: Start: 04-29-2024 Mammography Radha It yenygideon DO Work Phone: Start: 02-09-2024 Urine culture [...] contrast DO Kristopher Herzog Work Phone: Start: 12-13-2022 CT of head without contrast DO Kristopher Herzog Work Phone: Start: 12-13-2022 Plain chest X-ray DO He Herzog Work Phone: Start: 12-01-2022 End: 12-01-2022 Bilateral mammography DO Kristopher Herzog Work Phone: Start: 12-01-2022 Ultrasonography of l eft breast DO Kristopher Herzog Work Phone: Start: 09-23-2022 Plain chest X-ray DO He Herzog Work Phone: Start: 09-23-2022 Urine culture DO Manuela Herzog Work Phone: Start: 07-16-2022 Pelvis X-ray DO Kristopher Herzog Work Phone: Start: 07-16-2022 Plain X-ray of right femur DO Kristopher Herzog Work Phone: Start: 06-23-2022 Duplex scan of lower limb veins DO Kristopher Herzog [employer] Phone: Start: 06-09-2022 Ultrasonography of l eft breast DO Kristopher Herzog [employer] Phone: Start: 02-28-2022 Esophageal manometry DO Kristopher Herzog [employer] Phone: Start: 07-05-2016 Colonoscopy Kimberly Lao LPN Plan of Treatment Date Care Activity Detail Author Start: 12-27-2033 Screening for malignant neoplasm of colon [facility] Start: 07-05-2026 Screening for malignant neoplasm of colon [facility] Start: 12-21-2025 End: 12-21-2025 Patient encounter procedure 12/21/2025 9:00 AM EDT Office Visit [facility] [address] [facility] [address] [place] [address] Radha Verduzco, DO [address] [place] [address] [address] [facility] Start: 12-07-2025 Screening for malignant neoplasm of breast Mammogram [facility] Start: 06-17-2025 Urine screening for protein Diabetes: Urine Protein Screening [facility] Start: 06-02-2025 Glaucoma screening Diabetes: R etinopathy Screening [facility] Start: 04-29-2025 Screening for malignant neoplasm of breast Mammogram [facility] Start: 04-19-2025 End: 04-19-2025 Patient encounter procedure 04/19/2025 10:30 AM EDT Office Visit [facility] [address] [place] [id number] Kristopher Herzog DO [address] [place] [address] [facility] Start: 03-20-2025 End: 03-20-2025 Patient encounter procedure 03/20/2025 4:00 PM EDT Office Visit [facility] [place] [address] [place] [address] Brandy Salmeron DO [address] [place] [address] [facility] Start: 03-04-2025 Urine screening for protein Diabetes: Urine Protein Screening [facility] Start: 02-01-2025 End: 02-01-2025 Patient encounter procedure 02/01/2025 8:30 AM EDT Procedure Visit [facility] [address] [place] [id number] Marlon Branham DPM [address] [place] [address] [facility] Start: 01-09-2025 End: 01-09-2025 Patient encounter procedure [facility] Comment on above: Arrived Start: 12-27-2024 Hemoglobin A1c measurement Diabetes: Hemoglobin A1C [facility] Start: 12-16-2024 End: 02-15-2026 MG Breast - bilateral Diagnostic Bilateral diagnostic mammogram Imaging Routine Axillary lymphadenopathy H/O diagnostic mammography Expected: 12/16/2024, Expires: 02/15/2026 [facility] Healthcare Work Phone: Comment on above: Expected: 12/16/2024 , Expires: 02/15/2026 Start: 12-16-2024 End: 12-16-2025 US UPPER EXTREMITY NON-VASC LEFT US UPPER EXTREMITY NON-VASC LEFT Imaging Routine Axillary lymphadenopathy H/O diagnostic mammography Expected: 12/16/2024, Expires: 12/16/2025 [facility] Comment on above: Expected: 12/16/2024 , Expires: 12/16/2025 Start: 12-16-2024 End: 12-16-2024 Patient encounter procedure 12/16/2024 9:00 AM EDT Office Visit [facility] [address] [place] [id number] Radha Verduzco, DO [address] [place] [address] [facility] Start: 12-14-2024 End: 12-14-2024 Patient encounter procedure 12/14/2024 8:45 AM EDT Office Visit [facility] [address] [place] [phone] Kristopher Herzog, DO [address] [place] [address] Arrived [facility] Comment on above: Arrived Start: 12-06-2024 End: 06-29-2025 DBT Breast - bilateral diagnostic Bilateral diagnostic mammogram with tomosynthesis Imaging Routine Axillary lymphadenopathy Expected: 12/06/2024 (Approximate), Expires: 06/29/2025 [facility] Healthcare Work Phone: Comment on above: Expected: 12/06/2024 (Approximate), Expires: 06/29/2025 Start: 12-06-2024 Screening for malignant neoplasm of breast Mammogram [facility] Start: 12-06-2024 End: 04-29-2025 US UPPER EXTREMITY NON-VASC LEFT US UPPER EXTREMITY NON-VASC LEFT Imaging Routine Axillary lymphadenopathy Expected: 12/06/2024, Expires: 04/29/2025 [facility] Comment on above: Expected: 12/06/2024 , Expires: 04/29/2025 Start: 12-02-2024 Medicare Annual Wellness (AWV) Medicare Annual Wellness (AWV) [facility] Start: 10-31-2024 End: 10-31-2024 Patient encounter procedure 10/31/2024 8:00 AM EDT Procedure Visit [facility] [address] [place] [phone] Marlon Branham DPM [address] [place] [address] [facility] Start: 10-25-2024 End: 01-25-2025 CT Head WO contrast CT head wo IV contrast Imaging Routine Nonintractable headache, unspecified chronicity pattern, unspecified headache type Neck pain Paresthesia of left arm Numbness of fingers Expected: 10/25/2024 (Approximate), Expires: 01/25/2025 [facility] Comment on above: Expected: 10/25/2024 (Approximate), Expires: 01/25/2025 Start: 10-25-2024 End: 10-25-2025 XR Cervical spine 2 or 3 Views [facility] Work Phone: Comment on above: Expected: 10/25/2024 , Expires: 10/25/2025 Start: 10-03-2024 End: 10-03-2024 Patient encounter procedure 10/03/2024 8:45 AM EST Office Visit [facility] [address] [place] [phone] Kristopher Herzog DO [address] [place] [address] [facility] Start: 09-24-2024 End: 12-21-2024 Basic metabolic 1998 panel - Serum or Plasma Basic metabolic panel Lab Routine Primary hypertension ([facility]/HCC) Diabetic peripheral neuropathy associated with type 2 diabetes mellitus ([facility]/HCC) Expected: 09/24/2024, Expires: 12/21/2024 [facility] Comment on above: Expected: 09/24/2024 , Expires: 12/21/2024 Start: 09-24-2024 End: 12-21-2024 Hemoglobin a1c with eag Hemoglobin a1c with eag Lab Routine Diabetic peripheral neuropathy associated with type 2 diabetes mellitus ([facility]/HCC) Expected: 09/24/2024, Expires: 12/21/2024 [facility] Work Phone: Comment on above: Expected: 09/24/2024 , Expires: 12/21/2024 Start: 09-23-2024 End: 09-23-2024 Patient encounter procedure 09/23/2024 8:30 AM EST Office Visit [facility] [address] [place] [phone] Kristopher Herzog, [address] [place] [address] [facility] Start: 09-17-2024 Hemoglobin A1c measurement Diabetes: Hemoglobin A1C [facility] Start: 09-08-2024 Screening for malignant neoplasm of colon FOBT [facility] Start: 08-01-2024 End: 08-01-2024 Patient encounter procedure [facility] Comment on above: Arrived Start: 06-22-2024 End: 06-22-2024 Patient encounter procedure 06/22/2024 8:45 AM EDT Office Visit [facility] [address] [place] [phone] Kristopher Herzog DO [address] [place] [address] [facility] Start: 06-09-2024 End: 06-09-2024 Patient encounter procedure 06/09/2024 9:00 AM EDT Office Visit [facility] [address] [place] [address] Kristopher Herzog, DO [address] [place] [address] [facility] Start: 06-04-2024 Hemoglobin A1c measurement Diabetes: Hemoglobin A1C [facility] Start: 04-29-2024 End: 04-29-2024 Patient encounter procedure 04/29/2024 9:00 AM EDT Office Visit [facility] [address] [place] [phone] Radha Verduzco, DO [address] [place] [address] [facility] Start: 04-24-2024 Influenza vaccination Influenza Vacc ine (#1) [facility] Start: 01-06-2024 End: 01-06-2024 Patient encounter procedure 01/06/2024 10:45 AM EDT Office Visit [facility] [address] [place] [phone] Kristopher Herzog, DO [address] [place] [address] [facility] Start: 12-31-2023 Medicare Annual Wellness (AWV) Medicare Annual Wellness (AWV) [facility] Start: 12-28-2023 [facility] Start: 12-21-2023 End: 12-21-2023 Patient encounter procedure 12/21/2023 1:15 PM EDT Office Visit [facility] [address] [place] [phone] Radha Verduzco, DO [address] [place] [address] [facility] Start: 12-16-2023 End: 12-16-2023 Patient encounter procedure 12/16/2023 10:15 AM EDT Procedure Visit [facility] [address] [place] [address] Marlon Branham, DPM [address] [place] [address] [facility] Start: 12-04-2023 Hemoglobin A1c measurement Diabetes: Hemoglobin A1C [facility] Start: 12-02-2023 Screening for malignant neoplasm of breast Mammogram [facility] Start: 10-13-2023 End: 10-13-2023 Patient encounter procedure 10/13/2023 2:45 PM EST Office Visit [facility] [address] [place] [address] Marlon Branham, DPM [address] [place] [address] [facility] Start: 12-15-2022 [facility] Start: 12-14-2022 Blood chemistry [facility] Start: 12-14-2022 End: 12-14-2022 [facility] Start: 12-13-2022 [facility] Start: 12-13-2022 Computed tomography of abdomen and pelvis with contrast CT abdomen pelvis w con [facility] Start: 12-13-2022 End: 12-13-2022 [facility] Start: 12-13-2022 Physical therapy procedure [facility] Start: 12-13-2022 Referral to occupational therapist [facility] Start: 12-13-2022 Hospital admission [facility] Start: 09-23-2022 Bacteria identified in Urine by Culture [facility] Start: 06-23-2022 Duplex scan of lower limb veins US venous duplex LE RT [facility] Start: 06-23-2022 US Lower extremity vein - right [facility] Start: 02-28-2022 [facility] Start: 05-18-2020 Screening for malignant neoplasm of colon FIT [facility] Start: 1950 Screening for malignant neoplasm of colon [facility] Patient Education [facility] Work Phone: Patient referral [facility] Work Phone: [facility] Immunizations Immunization Date Immunization Notes Care Provider Fa damien 06-22-2024 Seasonal trivalent influenza vaccine, adjuvanted, preservative free Adam Smith ASSURANCE SPECIALIST Work Phone: [facility] 10-08-2023 RSV, recombinant, protein subunit RSVpreF, adjuvant reconstitu, 120mcg/0.5mL, PF (Arexvy) Marlon Branham DPM Work Phone: [facility] 05-29-2023 Influenza, High-dose Seasonal, Quadrivalent, Preservative Free Kimberly Stepping Stone ROPE SILICA MACHINE OPERATOR [facility] 05-29-2023 influenza virus vaccine, unspecified formulation Marlon Branham DPM Work Phone: [facility] 05-27-2023 influenza virus vaccine, unspecified formulation Kimberly Stepping Stone ROPE SILICA MACHINE OPERATOR [facility] 05-21-2022 influenza, high dose seasonal, preservative-free Kimberly Stepping Stone ROPE SILICA MACHINE OPERATOR [facility] 12-04-2021 Pneumococcal Conjuga te PCV 20 Kimberly Stepping Stone [facility] 05-31-2021 influenza, high dose seasonal, preservative-free Kimberly Stepping Stone ROPE SILICA MACHINE OPERATOR [facility] 11-14-2020 COVID-19 mRNA-1273 (Moderna) DO Kristopehr Herzog Work Phone: [facility] 10-17-2020 COVID-19 mRNA-1273 (Moderna) DO Kristopher Herzog Work Phone: [facility] 07-26-2020 Seasonal trivalent influenza vaccine, adjuvanted, preservative free Kimberly Stepping Stone ROPE SILICA MACHINE OPERATOR [facility] 12-26-2019 KENALOG - 10 mg Lauren Fitt Other [employer] Other 08-22-2019 KENALOG - 10 mg Lauren Fitt Other [employer] [facility] [employer] Other 05-17-2019 Seasonal trivalent influenza vaccine, adjuvanted, preservative free Kimberly Stepping Stone ROPE SILICA MACHINE OPERATOR [facility] 01-14-2019 pneumococcal polysaccharide vaccine, 23 valent Lauren Fitt Other [employer] Other 11-05-2018 KENALOG - 10 mg Lauren Fitt Other [employer] Other 05-14-2018 influenza virus vaccine, unspecified formulation DO [employer] Work Phone: [facility] 05-14-2018 influenza, high dose seasonal, preservative-free Lauren Fitt Other [employer] Other 06-12-2017 influenza virus vaccine, unspecified formulation DO [employer] Work Phone: [facility] 06-12-2017 influenza, injectabl e, quadrivalent, preservative free Kimberly Stepping Stone [facility] 06-12-2017 influenza, high dose seasonal, preservative-free Lauren Fitt Other [facility] [employer] Other 06-26-2016 influenza virus vaccine, unspecified formulation DO [employer] Work Phone: [facility] 06-26-2016 influenza, high dose seasonal, preservative-free Lauren Fitt Other [facility] [employer] Other 07-06-2015 pneumococcal conjuga te vaccine, 13 valent Kimberly Stepping Stone ROPE SILICA MACHINE OPERATOR [facility] 06-15-2015 seasonal influenza, intradermal, preservative free Kimberly Stepping Stone ROPE SILICA MACHINE OPERATOR [facility] 10-27-2014 KENALOG - 10 mg Lauren Fitt Other [employer] Other 10-15-2014 KENALOG - 10 mg Lauren Fitt Other [facility] [employer] Other 05-29-2014 influenza virus vaccine, unspecified formulation DO Kristopher Hrezog Work Phone: [facility] 05-29-2014 influenza, high dose seasonal, preservative-free Lauren Fitt Other [facility] [employer] Other 08-24-2013 zoster vaccine, live Kimberly Stepping Stone LP N [facility] 04-26-2013 influenza virus vaccine, unspecified formulation DO Kristopher Herzog Work Phone: [facility] 04-26-2013 influenza, seasonal, injectable, preservative free Kimberly Stepping Stone ROPE SILICA MACHINE OPERATOR [facility] 04-26-2013 influenza, high dose seasonal, preservative-free Lauren Fitt Other [facility] [employer] Other 04-26-2013 influenza, injectabl e, quadrivalent, preservative free Kiersten Qureshi Other [facility] [employer] Other 07-28-2012 seasonal influenza, intradermal, preservative free Kimberly Stepping Stone ROPE SILICA MACHINE OPERATOR [facility] 06-30-2011 pneumococcal polysaccharide vaccine, 23 valent Kimberly Stepping Stone ROPE SILICA MACHINE OPERATOR [facility] 05-20-2011 seasonal influenza, intradermal, preservative free Kimberly Stepping Stone ROPE SILICA MACHINE OPERATOR [facility] Payers Date Payer Category Payer Unknown [id number] 2023 Self-pay [id number] 2021 Medicare [id number] 2021 Medicare (Managed Care) 1.2. [id number] 2021 Unknown [employer] [id number] 2021-Present [address] [place] [address] [id number]. [id number] 2021 Unknown [id number] 2.16.840.1.453778.19 1950 Unknown [id number] 2.16.840.1.922425.3.579.2. 356 1950 Unknown [id number] 2.16.840.1.420965.3.579.2. 1259 1950 Unknown [id number] 2.16.840.1.781371.3.579.2. 1259 1950 Unknown [id number] 2.16.840.1.395742.3.579.2. 1259 1950 Unknown [id number] 2.16.840.1.465460.3.579.2. 1259 1951 Unknown [id number] 2.16.840.1.643595.3.579.2. 1259 1950 Unknown [id number] 2.16.840.1.414550.3.579.2. 1259 1950 Unknown [id number] 2.16.840.1.239880.3.579.2. 1259 1950 Unknown [id number] 2.16.840.1.652296.3.579.2. 1259 1951 Unknown [id number] 2.16.840.1.552850.3.579.2. 1259 1951 Unknown [id number] 2.16.840.1.571458.3.579.2. 1259 1951 Unknown [id number] 2.16.840.1.629441.3.579.2. 1259 1950 Unknown [id number] 2.16.840.1.799997.3.579.2. 1259 1950 Unknown [id number] 2.16.840.1.731984.3.579.2. 1259 1951 Unknown [id number] 2.16.840.1.262748.3.579.2. 1259 1951 Unknown [id number] 2.16.840.1.426449.3.579.2. 1259 1951 Unknown [id number] 2.16.840.1.012027.3.579.2. 1259 1951 Unknown [id number] 2.16.840.1.997379.3.579.2. 1259 1950 Unknown [id number] 2.16.840.1.778991.3.579.2. 1259 1950 Unknown [id number] 2.16.840.1.773492.3.579.2. 1259 Medicare Medicare [id number] Medicare Anthem MCR PFFS [id number] Unknown HCAP/HFA/FAP Active [id number] Unknown [id number] 2.16.840.1.913973.3.579.2. 531 Unknown [id number] 2.16840.1.760803.3.579.2. 531 Unknown [id number] 2.16840.1.147206.3.579.2. 531 Social History Date Type Detail Facility Start: 09-08-2023 End: 01-09-2025 Sex Assigned At [employer] Other Start: 11-23-2021 End: 10-07-2024 Tobacco smoking status NHIS Ex-smoker (finding) [facility] Start: 1950 Sex Assigned At Female F [facility] Start: 07-16-2022 End: 09-08-2023 Tobacco smoking status NHIS Never smoked tobacco (finding) [facility] History of tobacco use Passive smoker [facility] Start: 09-08-2023 Tobacco use and exposure Smokeless tobacco non-user [facility] Start: 09-16-2023 End: 01-09-2025 Alcohol intake Lifetime non-drinker (finding) [facility] Start: 09-08-2023 End: 01-09-2025 History of Social function [facility] Frequency of Alcohol Consumption Not on file [facility] How often do you hav e 6 or more drinks on 1 occasion? Never [facility] Start: 04-22-2023 Alcohol Comment caffeine: none [facility] Start: 1950 Sex Assigned At Not on file [facility] Start: 07-04-2024 End: 01-04-2025 Sex Female (finding) [facility] Medical Equipment Procedure Code Equipment Code Equipment [...] SELF DRILL ING [id number] FDA Start: 06-18-2017 [id number] Start: 08-20-2022 1 each by Other route in the morning and 1 each at noon and 1 each in the evening and 1 each before bedtime. [id number] USE TO TEST BLOO D SUGAR 3 TIMES DAILY DIRECTED [id number] Start: 06-13-2023 USE TO TEST BLOO D SUGAR THREE TIMES A DAY DIRECTED [id number] Start: 06-13-2023 BONE 5MM DUO FDA Start: [...] D SUGAR THREE TIMES A DAY DIRECTED [id number] Start: 11-09-2023 USE TO TEST BLOO D SUGAR 3 TIMES DAILY DIRECTED [id number] Start: 03-18-2024 BONE 5MM DUO FDA Start: 06-18-2017 BONE [...] /State Functional Status Date Assessment Result Facility 01-09-2025 Patient Health Quest ionnaire 2 item (PHQ-2) [Reported] [facility] 12-15-2022 Functional status Patient at Baseline [facility] Work Phone: [facility] Mental Status Date Assessment Result Facility 12-15-2022 Cognitive function Cognitive Sta tus Patient at Baseline [facility] Work Phone: Clinical Notes 05-15-2021 to 01-09-2025 Lynne Ochoa MA - 01/09/2025 8:45 AM Emanuel Verduzco DO - 12/16/2024 9:00 AM EDT Note Date & Type Note Facility 01-09-2025 History of Presen t illness Narrative documented in this encounter [facility] 12-16-2024 History of Presen t illness Narrative Images from the original note were not included. Nicol Frances 1950 Nicol Frances is a 74 y.o. female presents with chief complaint of Mamms/Lt. axillary US w/exam HPI: HPI Nicol was being followed with US for an enlarged left axillary LN. She has no breast issues SUBJECTIVE: MEDICATIONS: ALLERGIES Current Outpatient Medications Medication Instructions acetaminophen (TYLENOL EXTRA STRENGTH) 1,000 mg, 2 times daily PRN BD Insulin Syringe U/F 30G X 1/2 0.5 ML [facility] cholecalciferol (VITAMIN D-3) 1,000 Units, Daily citalopram (CELEXA) 20 mg, Oral, Every morning clobetasol (Temovate) 0.05 % ointment Topical, 2 times daily clobetasol (Temovate) 0.05 % ointment Topical, 2 times daily Continuous Glucose Marine Superintendent (FreeStyle Carline 3 Hydes) device USE I DEVICE CONTINUOUSLY Continuous Glucose Sensor (FreeStyle Carline 3 Sensor) [facility] 1 Device, Does not apply, Every 14 days furosemide (LASIX) 20 mg, Oral, Daily glucose blood (OneTouch Verio) test strip USE TO TEST BLOOD SUGAR THREE TIMES A DAY DIRECTED insulin aspart protamine-insulin aspart (NovoLOG MIX 70/30) (70-30) 100 UNIT/ML injection Inject 16 Units under the skin Daily in the Morning AND 12 Units at bedtime. Lancet Devices (Autolet) lancing device 1 each, 4 times daily Lancets (AffinityClickTouch Delica Plus [id number]) [facility] USE TO TEST BLOOD SUGAR 3 TIMES [...] OR PER COUMADIN CLINIC No Known Allergies PAST MEDICAL HISTORY: SOCIAL HISTORY SURGICAL HISTORY: Past Medical History: Diagnosis Date Acquired hallux valgus 01/31/2020 Acquired hammer toe of right foot 04/24/2021 Carpal tunnel syndrome 06/08/2023 Cataract Chronic ischemic heart disease Other specified forms Colitis Cough Depression ([facility]/HCC) Depressive disorder ([facility]) not elsewhere classified Displacement of lumbar intervertebral disc without myelopathy DVT (deep venous thrombosis) ([facility]) Encounter for current long-term use of 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s Erythema nodosum Essential hypertension, benign ([facility]) Generalized osteoarthrosis unspecified site Hallux hammertoe, left Hallux hammertoe, right Hallux malleus of right foot Hearing loss Hepatitis B Hyperlipidemia, unspecified ([facility]) Obstructive sleep apnea (adult) (pediatric) Orthostatic hypotension Osteoarthritis of knee 12/22/2019 PE (pulmonary thromboembolism) ([facility]) 04/21/2023 Primary osteoarthritis of first carpometacarpal joint of right hand Spinal stenosis in cervical region Type II or unspecified type diabetes mellitus with neurological manifestations, uncontrolled(250.62) ([facility]) Ulcerative colitis Unspecified Ulcerative colitis Other ulcerative colitis Ulcerative colitis 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 COLONOSCOPY W/ POLYPECTOMY 2013 EGD 05/08/[address] Thompson. DX Hiatal Hernia. HERNIA REPAIR 1986 TUBAL LIGATION Bilateral 1977 FAMILY HISTORY Family History Problem Relation Name Age of Onset Diabetes Mother Heart disease Mother Heart disease Father Diabetes Father Breast cancer Sister Heart disease Daughter Diabetes Daughter Cancer Daughter Colon cancer Neg Hx Ovarian cancer Neg Hx REVIEW OF SYMPTOMS: Review of Systems Constitutional: Negative for diaphoresis and unexpected weight change. HENT: Positive for hearing loss. Negative for tinnitus and voice change. Respiratory: Negative for shortness of breath. Cardiovascular: Negative for chest pain and palpitations. Musculoskeletal: Negative for arthralgias. Neurological: Negative for dizziness, seizures and headaches. Psychiatric/Behavioral: The patient is nervous/anxious. Depression & Anxiety All other systems reviewed and are negative. Hematological: Negative for adenopathy. Does not bruise/bleed easily. OBJECTIVE: Visit Vitals Ht 5' 1 Wt 172 lb BMI 32.50 kg/m Smoking Status Never BSA 1.83 m Physical Exam Vitals reviewed. Exam conducted with a day care aide present. HENT: Head: Normocephalic. Eyes: Pupils: Pupils are equal, round, and reactive to light. Cardiovascular: Rate and Rhythm: Normal rate and regular rhythm. Pulmonary: Effort: Pulmonary effort is normal. Chest: Comments: Bilateral supraclavicular, infraclavicular and right axillary lymph nodes were normal. In the left axilla she has a firm mobile [...] This Visit Axillary lymphadenopathy - Primary Nicol's had bilateral mamm's on 12/07/24, they were reported to be negative with resolution of the previously seen lymphadenopathy. They did not perform the axillary US, but her exam is unchanged and I can still feel the left axillary mass. I wanted to get the left axillary US but the patient said she didn't want to do it, I suggested a 6 month follow up exam with imaging but she didn't want to do that either. She was okay with me seeing her in 1 year. I will order bilateral mamm's and left axillary US for that visit. documented in this encounter [facility] 11-02-2024 Evaluation note Diagnosis Onset Date Resolution History of DVT (deep vein thrombosis) acute November 02 8:51am History of pulmonary embolism acute November 02, 2024 8:51am History of DVT (deep vein thrombosis) acute November 30, 2024 8:37am History of pulmonary embolism acute November 30, 2024 8:37am History of DVT (deep vein thrombosis) acute January 04, 2025 8:39am History of pulmonary embolism acute January 04, 2025 8 :39am [facility] Work Phone: [phone]) 661-237903-04-2025 History of Present illness Narrative* Venita Nix, FLORESITA - 10/25/2024 2:00 PM EST Images from the original note were [...] Syringe U/F 30G X 1/2 0.5 ML [facility] cholecalciferol (VITAMIN D-3) 1,000 Units, Daily citalopram (CELEXA) 20 mg, Oral, Every morning clobetasol (Temovate) 0.05 % ointment Topical, 2 times daily clobetasol (Temovate) 0.05 % ointment Topical, 2 times daily Continuous Glucose Marine Superintendent (FreeStyle Carline 3 Hydes) device 1 Device, Does not apply, Continuous Continuous Glucose Sensor (FreeStyle Carline 3 Sensor) mis 1 Device, Does not apply, Every 14 days glucose blood (OneTouch Verio) test strip USE TO TEST BLOOD SUGAR THREE TIMES A DAY DIRECTED Lancet Devices (Autolet) lancing device 1 each, 4 times daily Lancets (OneTouch Delica Plus [id number]) [facility] USE TO TEST BLOOD SUGAR 3 TIMES [...] of femoral vein of left lower extremity ([facility]/HCC) 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 machines and devices Diabetic peripheral neuropathy associated with type 2 diabetes mellitus ([facility]/HCC) Gastroesophageal reflux disease Hypercoagulable state ([facility]/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 She will return on Thursday to [facility] office after her podiatry appt provide an [...] -Follow up for Next scheduled follow-up. Venita Nix NP documented in this encounterSaint Louis University Health Science [id number] Evaluation note* Diagnosis Onset Date Resolution Status [...] pulmonary embolism acute November 30, 2024 8:37am [facility] Work Phone: 1(807) 870-187101-17-2025 Evaluation note* Diagnosis Onset Date Resolution Status [...] pulmonary embolism acute November 02, 2024 8:51am [facility] Work Phone: 1(199) 163-672801-17-2025 Evaluation note* Diagnosis Onset Date Resolution Status [...] pulmonary embolism acute November 30, 2024 8:37am [facility] Work Phone: 1(218) 738-585212-11-2024 Evaluation note* Diagnosis Onset Date Resolution Status Admit Date History of DVT (deep vein thrombosis) acute August 03, 024 8:24am History of pulmonary embolism acute August 03, 2024 8:24am History of DVT (deep vein thrombosis) acute September 09 8:43am History of pulmonary embolism acute September 09, 2024 8:43am History of DVT (deep vein thrombosis) acute October 05 025 8:36am History of pulmonary embolism acute October 05, 2024 8:36am [facility] Work Phone: 1(972) 119-548612-11-2024 Evaluation note* Diagnosis Onset Date Resolution Status Admit Date History of DVT (deep vein thrombosis) acute August 03, 2 024 8:24am History of pulmonary embolism acute August 03, 2024 8:24am History of DVT (deep vein thrombosis) acute September 09 8:43am History of pulmonary embolism acute September 09, 2024 8:43am History of DVT (deep vein thrombosis) acute October 05 025 8:36am History of pulmonary embolism acute October 05, 2024 8:36am Crohn's colitis acute October 07, 2024 9:04am [facility] Work Phone: 1(259) 872-623912-09-2024 History of Present illness Narrative* Marlon Branham [...] FOOT EXAM: Date of Last Foot Exam 08/01/24 Diabetic Shoe & Insert: Previous amputation of [...] after her next appointment. documented in this encounterSaint Louis University Health Science [id number] Evaluation note* Diagnosis Onset Date Resolution Status Admit Date Crohn's colitis acute June 29, 2024 10:28am Internal hemorrhoids acute Nove mber 2023 10:28am History of DVT (deep vein thrombosis) acute July 04, 024 8:29am History of pulmonary embolism acute July 04, 2024 8:29am History of DVT (deep vein thrombosis) acute August 03, 024 8:24am History of pulmonary embolism acute August 03, 2024 8:24am History of DVT (deep vein thrombosis) acute September 09 8:43am History of pulmonary embolism acute September 09, 2024 8:43am [facility] Work Phone: 1(923) 859-512110-30-2024 History of Present illness Narrative* Adam Smith, FLORESITA - 06/22/2024 8:45 AM EDT Images from [...] tunnel syndrome Cataract Chronic ischemic heart disease ([facility]) Other specified forms Colitis Cough Depression ([facility]) Depressive disorder ([facility]) not elsewhere classified Displacement of lumbar intervertebral disc without myelopathy DVT (deep venous thrombosis) ([facility]) Encounter for current long-term use of [...] ointment Topical, 2 times daily glucose blood (AffinityClickTouch Verio) test strip USE TO TEST BLOOD SUGAR THREE TIMES A DAY DIRECTED insulin aspart protamine-insulin aspart (NovoLOG Mix 70-30) (70-30) 100 UNIT/ML injection 12 Units,Subcutaneous, 2 times daily with meals Lancet Devices (Autolet) lancing device 1 each, 4 times daily Lancets (OneTouch Delica Plus [id number]) misc USE TO TEST BLOOD SUGAR 3 [...] all orders for this visit: Primary hypertension ([facility]) - Basic metabolic panel; Future Mixed hyperlipidemia ([facility]) -at goal with lipitor and zetia Obstructive sleep apnea syndrome -wears c-pap Peripheral venous insufficiency -chronic left leg edema from previous DVT Chronic deep vein thrombosis (DVT) of femoral vein of left lower extremity ([facility]) 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 machines and devices Diabetic peripheral neuropathy associated with type 2 diabetes mellitus ([facility]) - Hemoglobin a1c with eag; Future - Basic metabolic panel; Future Gastroesophageal reflux disease without esophagitis -taking protonix Hypercoagulable state ([facility]) -on warfarin for DVT care home current use of 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 care home current use of insulin ([facility]) -advised to increase insulin to 14 [...] today Ulcerative colitis without complications, unspecified location ([facility]) Need for immunization against influenza - [...] otherwise she will needto follow up with PROFESSOR OF CHEMICAL ENGINEERING. The rest the review systems is negative. She return here in three months for a BMP and also an A1c.Patient agrees with plan. Dr. Herzog was present in office suite today and is supervising patient care and available for consult. I'm following his plan of care for the above problems. Previous notes and plan were reviewed and followed. Adam Smith, MSN, REMEDIATION BIOANALYTICS CONSULTANT-DREDGE MECHANIC documented in this encounterSaint Louis University Health Science [id number] History of Present illness Narrative* Radha Verduzco, - 04/29/2024 9:00 AM EDT Images from [...] ointment Topical, 2 times daily glucose blood (AffinityClickTouch Verio) test strip USE TO TEST BLOOD SUGAR THREE TIMES A DAY DIRECTED insulin aspart protamine-insulin aspart (NovoLOG Mix 70-30) (70-30) 100 UNIT/ML injection 12 Units,Subcutaneous, 2 times daily with meals Lancet Devices (Autolet) lancing device 1 each, Other, 4 times daily Lancets (AffinityClickTouch Delica Plus [id number]) misc USE TO TEST BLOOD SUGAR 3 [...] tunnel syndrome Cataract Chronic ischemic heart disease ([facility]) Other specified forms Colitis Cough Depression ([facility]) Depressive disorder ([facility]) not elsewhere classified Displacement of lumbar intervertebral disc without myelopathy DVT (deep venous thrombosis) ([facility]) Encounter for current long-term use of 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s Erythema nodosum Essential hypertension, benign ([facility]) Generalized osteoarthrosis unspecified site Hallux hammertoe, left Hallux hammertoe, right Hallux malleus of right foot Hearing loss Hepatitis B Hyperlipidemia, unspecified ([facility]) Obstructive sleep apnea (adult) (pediatric) Orthostatic hypotension Osteoarthritis of knee PE (pulmonary thromboembolism) ([facility]) Primary osteoarthritis of first carpometacarpal joint of [...] ACDF per Dr. Maynard. BREAST LUMPECTOMY Left 2011 CARPAL TUNNEL RELEASE 01/17/2016 with removal of a bone CATARACT EXTRACTION 03/2020 CHOLECYSTECTOMY 1985 COLONOSCOPY 2009 Ulcerative colitis COLONOSCOPY 11/2021 w/Dr. [...] Exam Vitals reviewed. Exam conducted with a day care aide present. HENT: Head: Normocephalic. Eyes: Pupils: Pupils [...] will resume yearly evaluations. documented in this encounterSaint Louis University Health Science [id number] History of Present illness Narrative* Marlon Branham [...] over the callous site. documented in this [facility]08-22-2024 Evaluation note* Diagnosis Onset Date Resolution Status [...] June 29, 2024 10:28am Internal hemorrhoids acute Nove [facility] 2023 10:28am History of DVT (deep vein thrombosis) acute July 04 024 8:29am History of pulmonary embolism acute July 04, 2024 8:29am [facility] Work Phone: 1(333) 765-934905-06-2024 [facility] History and physical note Author Sandy Clark [facility] December 28, 2023 8:33am Note Date/Time December 28, 2023 8:33am [facility] [address] [place] [address] Gastroenterology H&P Signed Patient: Nicol Frances MR#: [id number] : 1950 Acct:[id number] Age/Sex: 73 / F Adm Date: 4 Loc: Room: Type: [facility] Attending Dr: Sandy Clark DO Copies to: DO Kristopher Dunn DO~ Date of Service: 12/28/2023 HISTORY & [...] <Electronically signed by Sandy Clark DO> 12/28/23832 [facility] Work Phone: 1(689) 435-809005-06-2024 [facility] Evaluation note* Encounter Date Diagnosis Assessment Notes [...] or Wednesdays. Seen by Genie Escobedo PharmD [employer] Other 02-05-2024 Telephone encounter Note* Telephone Encounter - Ruddy Cisneros - 09/28/2023 9:48 AM EST Patient is scheduled. [facility] [id number] Miscellaneous Notes* Telephone Encounter - Ruddy Cisneros [...] pt and schedule her an appointment to greens picker her shoes that arrived. Thankyou! documented in this encounterSaint Louis University Health Science [id number] Telephone encounter Note* Telephone Encounter - Kimberly Berger LPN - 09/25/2023 10:23 AM EST Pt called and lvm that she was sorry she missed our call and for someone to give her a call back please and thank you! [facility] Science [id number] Telephone encounter Note* Telephone Encounter - Ruddy Cisneros - 09/25/2023 9:55 AM EST Called patient to schedule appt to obtain shoes. Unable to LVM due to voicemail not set up. [facility] Science [id number] Telephone encounter Note* Telephone Encounter - Kimberly Berger LPN - 09/24/2023 4:43 PM EST Can someone please call pt and schedule her an appointment to greens picker her shoes that arrived. Thankyou! [facility] [id number] Evaluation note* Encounter Date Diagnosis Assessment Notes [...] by Samantha Echavarria, Trina Candidate/Tita Roberts PharmD [employer] Other 12-19-2023 Evaluation note* Encounter Date Diagnosis [...] or Wednesdays. Seen by Tita Roberts PharmD [employer] Other 11-21-2023 Evaluation note* Encounter Date Diagnosis [...] Tuesdays, or Wednesdays. Seen by Rose Marie Quispe, Trina Candidate/Tita Roberts PharmD [employer] Other 10-23-2023 Evaluation note* Encounter Date Diagnosis [...] to appointments. Seen by Tita Roberts PharmD [employer] Other 09-07-2023 Evaluation note* Encounter Date Diagnosis [...] patient preference. Seen by Rachel Alonso PharmD [employer] Other 08-16-2023 Evaluation note* Encounter Date Diagnosis Assessment Notes Treatment Notes Treatment Clinical Notes Mar, Medication monitoring encounter (ICD-10 - Z51.81) Referring Provider: Darius Herzog Diagnosis: DVT/PE (1997, 2001) INR Goal: 2-3 INR: 3.1 Warfarin Tablet Size: 3mg Regino: 3mg Thursday: 3mg Thursday: 1.5mg Thursday: 3mg : 3mg Thursday: 3mg Thursday: 1.5mg Total Weekly Dose: 18mg Continue plan above. Follow-up in 3 weeks per patient preference. Patient denies changes in medications or diet. Patient reports following dosing instructions as above. Seen by Anny Qureshi,[facility] [employer] Other 07-31-2023 Evaluation note* Encounter Date Diagnosis [...] in medications or diet. Seen by Anny Qureshi,[facility] [employer] Other 07-19-2023 Evaluation note* Encounter Date Diagnosis [...] in medications or diet. Seen by Anny Qureshi,[facility] [employer] Other 07-03-2023 Evaluation note* Encounter Date Diagnosis Assessment Notes Treatment Notes Treatment Clinical Notes Feb, Medication monitoring encounter (ICD-10 - Z51.81) Referring Provider: Darius Herzog Diagnosis: DVT/PE (1997, 2001) INR Goal: 2-3 INR: 3.4 Warfarin Tablet Size: 3mg Regino: 3mg Thursday: 3mg Thursday: 1.5mg Thursday: 3mg : 3mg Thursday: 3mg Thursday: 3mg Total Weekly Dose: 19.5mg Reduce to 1.5mg today, then continue current plan. Follow-up in 2 weeks. Unable to determine the cause of the subtherapeutic INR. Patient denies missed doses and changes in medications or diet. Seen by Anny Qureshi,[facility] [employer] Other 04-19-2023 Evaluation note* Encounter Date Diagnosis Assessment Notes Treatment Notes Treatment Clinical Notes Nov, Medication monitoring encounter (ICD-10 - Z51.81) Referring Provider: Darius Herzog Diagnosis: DVT/PE (2001) INR Goal: 2-3 INR: 2.5 Warfarin Tablet Size: 3mg Thursday: 3mg Thursday: 3mg Thursday: 1.5mg Thursday: 3mg : 3mg Thursday: 3mg Thursday: 3mg Total Weekly Dose: 19.5mg Continue current plan. Follow-up in 4 weeks. Seen by Anny Qureshi, [facility] [employer] Other 03-22-2023 Evaluation note* Encounter Date Diagnosis [...] in 4 weeks. Seen by Anny Qureshi, [facility] [employer] Other 02-22-2023 Evaluation note* Encounter Date Diagnosis Assessment Notes Treatment Notes Treatment Clinical Notes Sep, Medication monitoring encounter (ICD-10 - Z51.81) Referring Provider: Darius Herzog Diagnosis: DVT/PE (1997, 2001) INR Goal: 2-3 INR: 2.7 Warfarin Tablet Size: 3mg Regino: 3mg Thursday: 3mg Thursday: 1.5mg Thursday: 3mg : 3mg Thursday: 3mg Thursday: 3mg Total Weekly Dose: 19.5mg Continue current plan. Follow-up in 4 weeks. Seen by Anny Qureshi, [facility] [employer] Other 01-25-2023 Evaluation note* Encounter Date Diagnosis Assessment Notes Treatment Notes Treatment Clinical Notes Aug, Medication monitoring encounter (ICD-10 - Z51.81) Referring Provider: Darius Herzog Diagnosis: DVT/PE (2001) INR Goal: 2-3 INR: 3.2 Warfarin Tablet Size: 3mg Thursday: 3mg Thursday: 3mg Thursday: 1.5mg Thursday: 3mg : 3mg Thursday: 3mg Thursday: 3mg Total Weekly Dose: 19.5mg Reduce to 1.5mg today, then continue current plan. Follow-up in 4 weeks. Seen by Anny Qureshi, [facility] [employer] Other 12-28-2022 Evaluation note* Encounter Date Diagnosis Assessment Notes Treatment Notes Treatment Clinical Notes Jul, Medication monitoring encounter (ICD-10 - Z51.81) Referring Provider: Darius Herzog Diagnosis: DVT/PE (2001) INR Goal: 2-3 INR: 2.5 Warfarin Tablet [...] made if necessary. Seen by Anny Qureshi, [facility] [employer] Other 12-01-2022 Evaluation note* Encounter Date Diagnosis Assessment Notes Treatment Notes Treatment Clinical Notes Jul, Medication monitoring encounter (ICD-10 - Z51.81) Referring Provider: Darius Herzog Diagnosis: DVT/PE (1997, 2001) INR Goal: 2-3 INR: 3.5 Warfarin Tablet Size: 3mg Regino: 3mg Thursday: 3mg Shasha: 1.5mg Thursday: 3mg : 3mg Thursday: 3mg Thursday: 3mg Total Weekly Dose: 19.5mg Hold today, then continue current plan. Follow-up in 4 weeks per patient preference. Unknown cause of high INR. Seen by Olu Rene PharmD [employer] Other 11-03-2022 Evaluation note* Encounter Date Diagnosis Assessment Notes Treatment Notes Treatment Clinical Notes Jun, Medication monitoring encounter (ICD-10 - Z51.81) Referring Provider: Darius Herzog Diagnosis: DVT/PE (1997, 2001) INR Goal: 2-3 INR: 1.7 Warfarin Tablet [...] we can advise her. Seen by Lauren Vance olman [employer] Other 10-13-2022 Evaluation note* Encounter Date Diagnosis Assessment Notes Treatment Notes Treatment Clinical Notes May, Medication monitoring encounter (ICD-10 - Z51.81) Referring Provider: Darius Herzog Diagnosis: DVT/PE (1997, 2001) INR Goal: 2-3 INR: 2.6 Warfarin Tablet Size: 3mg Regino: 3mg Thursday: 3mg Shasha: 1.5mg Thursday: 3mg : 3mg Thursday: 3mg Thursday: 3mg Total Weekly Dose: 19.5mg Continue current plan. Follow-up in 3 weeks. Patient had procedure last week, bridged with Lovenox, will discontinue Lovenox at this time. [facility] center. Seen by Olu Rene PharmD [employer] Other 09-29-2022 Evaluation note* Encounter Date Diagnosis [...] more details. Seen by Olu Rene PharmD [employer] Other 09-13-2022 Evaluation note* Encounter Date Diagnosis Assessment Notes Treatment Notes Treatment Clinical Notes Apr, Medication monitoring encounter (ICD-10 - Z51.81) Referring Provider: Darius Herzog Diagnosis: DVT/PE (1997, 2001) INR Goal: 2-3 INR: 1.5 Warfarin Tablet [...] as above. Seen by Tk Mora PharmD [employer] Other 08-16-2022 Evaluation note* Encounter Date Diagnosis Assessment Notes Treatment Notes Treatment Clinical Notes Mar, Medication monitoring encounter (ICD-10 - Z51.81) Referring Provider: Darius Herzog Diagnosis: DVT/PE (1997, 2001) INR Goal: 2-3 INR: 1.8 Tablet Size: 3mg Thursday: 3mg Thursday: 3mg Thursday: 1.5mg Thursday: 3mg : 3mg Thursday: 3mg Thursday: 1.5mg Total Weekly Dose: 18mg Boost to 3mg today 04/08/22. Then continue above plan. Follow up in 4 weeks. Could not determine cause of low INR reading today. Patient presents to clinic with her Grandson. Seen by Jennifer Amezcua LPN [employer] Other 07-21-2022 Evaluation note* Encounter Date Diagnosis [...] 's appointment. Seen by Tameka Churchill RN [employer] Other 07-07-2022 Evaluation note* Encounter Date Diagnosis Assessment Notes Treatment Notes Treatment Clinical Notes Feb, Medication monitoring encounter (ICD-10 - Z51.81) Referring Provider: Darius Herzog Diagnosis: DVT/PE (2001) INR Goal: 2-3 INR: 2.3 Tablet Size: 3mg Thursday: 3mg Thursday: 3mg Thursday: 1.5mg Thursday: 3mg : 3mg Thursday: 3mg Thursday: 1.5mg Total Weekly Dose: 18mg Continue above plan. Follow up in 2 weeks. Please coordinate with 's appointment. Seen by Olu Rene PharmD [employer] Other 06-27-2022 Evaluation note* Encounter Date Diagnosis Assessment Notes Treatment Notes Treatment Clinical Notes Jan, Medication monitoring encounter (ICD-10 - Z51.81) Referring Provider: Darius Herzog Diagnosis: DVT/PE (1997, 2001) INR Goal: 2-3 INR: 2.0 Tablet Size: 3mg Thursday: 3mg Thursday: 3mg Thursday: 1.5mg Thursday: 3mg : 3mg Thursday: 3mg Thursday: 1.5mg Total Weekly Dose: 18mg Continue above plan. Follow up in 2 weeks. Please coordinate with 's appointment. 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 Seen by Tameka Churchill RN [employer] Other 05-16-2022 Evaluation note* Encounter Date Diagnosis Assessment Notes Treatment Notes Treatment Clinical Notes December, Medication monitoring encounter (ICD-10 - Z51.81) Referring Provider: Darius Herzog Diagnosis: DVT/PE (1997, 2001) INR Goal: 2-3 INR: 1.4 Tablet Size: 3mg Thursday: 3mg Thursday: 3mg Shasha: 1.5mg Thursday: 3mg : 3mg Thursday: 3mg Thursday: 1.5mg Total Weekly Dose: 18mg Boost an additional 1.5mg today 01/06/22, then begin new plan a 9% increase. Follow up in 2 weeks. No reason found for low INR. See calendar. Please coordinate with 's appointment. Seen by Marita Luo LPN [employer] Other 05-02-2022 Evaluation note* Encounter Date Diagnosis Assessment Notes Treatment Notes Treatment Clinical Notes December, Medication monitoring encounter (ICD-10 - Z51.81) Referring Provider: Darius Herzgo Diagnosis: DVT/PE (2001) INR Goal: 2-3 INR: [...] 's appointment. Seen by Tameka Churchill RN [employer] Other 04-20-2022 Evaluation note* Encounter Date Diagnosis Assessment Notes Treatment Notes Treatment Clinical Notes Nov, Medication monitoring encounter (ICD-10 - Z51.81) Referring Provider: Darius Herzog Diagnosis: DVT/PE (2001) INR Goal: 2-3 INR: 2.9 Tablet Size: 3mg Thursday: 3mg Thursday: 3mg Thursday: 1.5mg Thursday: 3mg : 1.5mg Thursday: 3mg Thursday: 1.5mg Total Weekly Dose: 16.5mg Continue above plan. Follow up in 2 weeks. INR may be elevated due to starting sulfasalazine 500mg three times a day for cholitis in conjunction with warfarin increase of 5%. Per [employer], this may increase INR. Patient has been holding vitamin K rich foods and will resume. Seen by Tameka Churchill RN [employer] Other 04-07-2022 Evaluation note* Encounter Date Diagnosis Assessment Notes Treatment Notes Treatment Clinical Notes Nov, Diarrhea (ICD-10 - R19.7) Nov, Rectal bleeding (ICD-10 - K62.5) Nov, Colitis (ICD-10 - K52.9) [employer] Other 04-06-2022 Evaluation note* Encounter Date Diagnosis Assessment Notes Treatment Notes Treatment Clinical Notes Nov, Medication monitoring encounter (ICD-10 - Z51.81) Referring Provider: Darius Herzog Diagnosis: DVT/PE (1997, 2001) INR Goal: 2-3 INR: 1.7 Tablet Size: [...] showing improvement. Seen by Tameka Churchill RN [employer] Other 03-22-2022 Evaluation note* Encounter Date Diagnosis Assessment Notes Treatment Notes Treatment Clinical Notes Oct, Medication monitoring encounter (ICD-10 - Z51.81) Referring Provider: Darius Herzog Diagnosis: DVT/PE (2001) INR Goal: 2-3 INR: 1.9 Tablet Size: 3mg Thursday: 1.5mg Thursday: 3mg Thursday: 1.5mg Thursday: 3mg : 1.5mg Thursday: 3mg Thursday: 1.5mg Total Weekly Dose: 15mg Boost additional 1.5mg today, 11/12, then continue above plan. Follow up in 2 weeks. Seen by Tameka Churchill RN [employer] Other 03-10-2022 Evaluation note* Encounter Date Diagnosis [...] 2 weeks. Seen by Tameka Churchill RN [employer] Other 02-21-2022 Evaluation note* Encounter Date Diagnosis Assessment Notes Treatment Notes Treatment Clinical Notes Sep, Medication monitoring encounter (ICD-10 - Z51.81) Referring Provider: Darius Herzog Diagnosis: DVT/PE (1997, 2001) INR Goal: 2-3 INR: 2.5 Tablet Size: 3mg Thursday: 1.5mg Thursday: 3mg Thursday: 1.5mg Thursday: 3mg : 1.5mg Thursday: 3mg Thursday: 1.5mg Total Weekly Dose: 15mg Continue above plan. Follow up in 2 weeks. Seen by Tameka Churchill RN [employer] Other 02-07-2022 Evaluation note* Encounter Date Diagnosis [...] 2 weeks. Seen by Tameka Churchill RN [employer] Other 01-20-2022 Evaluation note* Encounter Date Diagnosis Assessment Notes Treatment Notes Treatment Clinical Notes Aug, Medication monitoring encounter (ICD-10 - Z51.81) Referring Provider: Darius Herzog Diagnosis: DVT/PE (1997, 2001) INR Goal: 2-3 INR: 1.8 Tablet Size: 3mg Regino: 1.5mg Howard: 3mg Thursday: 1.5mg Thursday: 3mg : 1.5mg Thursday: 3mg Thursday: 1.5mg Total Weekly Dose: 15mg Boost additional 1.5mg today and then continue above plan. Follow up in 2 weeks. Seen by Tameka Churchill RN [employer] Other 01-06-2022 Evaluation note* Encounter Date Diagnosis [...] 2 weeks. Seen by Tameka Churchill RN [employer] Other 12-09-2021 Evaluation note* Encounter Date Diagnosis Assessment Notes Treatment Notes Treatment Clinical Notes Jul, Medication monitoring encounter (ICD-10 - Z51.81) Referring Provider: Darius Herzog Diagnosis: DVT/PE (1997, 2001) INR Goal: 2-3 INR: 2.5 Tablet Size: 3mg Thursday: 1.5mg Howard: 3mg Thursday: 1.5mg Thursday: 3mg : 1.5mg Thursday: 1.5mg Thursday: 3mg Total Weekly Dose: 15mg Continue above plan. Follow up in 2 weeks. Seen by Tameka Churchill RN [employer] Other 11-22-2021 Evaluation note* Encounter Date Diagnosis Assessment Notes Treatment Notes Treatment Clinical Notes Jun, Medication monitoring encounter (ICD-10 - Z51.81) Referring Provider: Darius Herzog Diagnosis: DVT/PE (1997, 2001) INR Goal: 2-3 INR: 2.6 Tablet Size: 3mg Regino: 1.5mg Thursday: 3mg Thursday: 1.5mg Thursday: 3mg : 1.5mg Thursday: 1.5mg Thursday: 3mg Total Weekly Dose: 15mg Continue above plan. Follow up in 2 weeks. Seen by Tameka Churchill RN [employer] Other 11-10-2021 Evaluation note* Encounter Date Diagnosis [...] 2 weeks. Seen by Tameka Churchill RN [employer] Other 10-27-2021 Evaluation note* Encounter Date Diagnosis Assessment Notes Treatment Notes Treatment Clinical Notes May, Medication monitoring encounter (ICD-10 - Z51.81) Referring Provider: Darius Herzog Diagnosis: DVT/PE (1997, 2001) INR Goal: 2-3 INR: 1.8 Tablet Size: 3mg Thursday: 1.5mg Thursday: 1.5mg Thursday: 1.5mg Thursday: 3mg : 1.5mg Thursday: 1.5mg Thursday: 3mg Total Weekly Dose: 10.5mg Boost additional 1.5mg today and then continue above plan. Patient admits to missing last night's dose. Follow up in 1 week. Schedule with 's appt. Seen by Tameka Churchill RN [employer] Other 10-05-2021 Evaluation note* Encounter Date Diagnosis Assessment Notes Treatment Notes Treatment Clinical Notes May, Medication monitoring encounter (ICD-10 - Z51.81) Referring Provider: Darius Herzog Diagnosis: DVT/PE (1997, 2001) INR Goal: 2-3 INR: 2.1 Tablet Size: 3mg Thursday: 1.5mg Thursday: 1.5mg Thursday: 1.5mg Thursday: 3mg : 1.5mg Thursday: 1.5mg Thursday: 3mg Total Weekly Dose: 13.5mg Continue above plan. Follow up in 3 weeks. Schedule with 's appt. Seen by Tameka Churchill RN [employer] Other 09-22-2021 Evaluation note* Encounter Date Diagnosis Assessment Notes Treatment Notes Treatment Clinical Notes Apr, Medication monitoring encounter (ICD-10 - Z51.81) Referring Provider: Darius Herzog Diagnosis: DVT/PE (1997, 2001) INR Goal: 2-3 INR: 1.6 Tablet Size: [...] with . Seen by Olu Rene PharmD [employer] Other chief complaint+Reason for visit Narrative* Chief Complaint DVT INR Follow Up blood in stool/change in stool/ref M. Sarah R59.0 Procedure Instructions + Lovenox Instructions Reason for Visit History of DVT (deep vein thrombosis) History of pulmonary embolism Rectal bleed Ulcerative colitis History of DVT (deep vein thrombosis) History of pulmonary embolism [facility] Work Phone: chief complaint+Reason for visit Narrative* Chief Complaint DVT INR Follow Up blood in stool/change in stool/ref M. Sarah R59.0 Procedure Instructions + Lovenox Instructions ulcerative colitis/blood in stool ulcerative colitis/blood in stool Reason for Visit History of DVT (deep vein thrombosis) History of pulmonary embolism Rectal bleed Ulcerative colitis History of DVT (deep vein thrombosis) History of pulmonary embolism [facility] Work Phone: Chief complaint+Reason for visit Narrative* Chief Complaint INR Follow Up blood in stool/change in stool/ref Kevin Smith R59.0 Procedure Instructions + Lovenox Instructions ulcerative [...] (deep vein thrombosis) History of pulmonary embolism [facility] Work Phone: Chitw complaint+Reason for visit Narrative* Chief Complaint blood in stool/betancur e in stool/ref Kevin Hedrickos R59.0 Procedure Instructions + Lovenox Instructions ulcerative [...] (deep vein thrombosis) History of pulmonary embolism [facility] Work Phone: chief complaint+Reason for visit Narrative* Chief Complaint ulcerative [...] (deep vein thrombosis) History of pulmonary embolism [facility] Work Phone: Evaluation noteNo InformationNort [employer] [place] Other Evaluation noteNort [employer] [place] Other Evaluation noteNo assessment information available [facility] Work Phone: Evaluation note* Diagnosis Onset Date Resolution Status HTN (hypertension) acute Shakiness acute Weakness acute [facility] Work Phone: Evaluation note* Diagnosis Onset Date Resolution Status History of DVT (deep vein thrombosis) acute History of pulmonary embolism acute [facility] Work Phone: evaluation note* Diagnosis Onset Date Resolution Status History of DVT (deep vein thrombosis) acute History of pulmonary embolism acute Blood in stool acute Ulcerative colitis acute [facility] Work Phone: evaluation note* Diagnosis Onset Date Resolution Status History of DVT (deep vein thrombosis) acute History of pulmonary embolism acute Rectal bleed acute Ulcerative colitis acute [facility] Work Phone: Evaluation note* Diagnosis Onset Date Resolution Status History of DVT (deep vein thrombosis) acute History of pulmonary embolism acute Rectal bleed acute Ulcerative colitis acute History of DVT (deep vein thrombosis) acute History of pulmonary embolism acute [facility] Work Phone: evaluation note* Diagnosis Onset Date Resolution Status History of DVT (deep vein thrombosis) acute History of pulmonary embolism acute Rectal bleed acute Ulcerative colitis acute History of DVT (deep vein thrombosis) acute History of pulmonary embolism acute History of DVT (deep vein thrombosis) acute History of pulmonary embolism acute History of DVT (deep vein thrombosis) acute History of pulmonary embolism acute [facility] Work Phone: evaluation note* Diagnosis Onset Date Resolution Status Rectal bleed acute Ulcerative colitis acute History of DVT (deep vein thrombosis) acute History of pulmonary embolism acute History of DVT (deep vein thrombosis) acute History of pulmonary embolism acute History of DVT (deep vein thrombosis) acute History of pulmonary embolism acute History of DVT (deep vein thrombosis) acute History of pulmonary embolism acute [facility] Work Phone: evaluation note* Diagnosis Onset Date Resolution Status History of DVT (deep vein thrombosis) acute History of pulmonary embolism acute History of DVT (deep vein thrombosis) acute History of pulmonary embolism acute History of DVT (deep vein thrombosis) acute History of pulmonary embolism acute History of DVT (deep vein thrombosis) acute History of pulmonary embolism acute [facility] Work Phone: evaluation note* Diagnosis Primary hypertension [...] disease without esophagitis Esophageal reflux Hypercoagulable state (CMS/HCC) Primary hypercoagulable state care home current use of 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 ([facility]/HCC) OAB (overactive bladder) Class 1 obesity Spinal stenosis of lumbosacral region Ulcerative colitis without complications, unspecified location ([facility]) Need for immunization against influenza Need [...] thrombosis) acute History of pulmonary embolism acute [facility] Work Phone: Evaluation note* Diagnosis Type II diabetes mellitus with neurological manifestations ([facility]/HCC)- Primary Type II or unspecified type diabetes mellitus with neurological manifestations, not stated as uncontrolled Onychomycosis Dermatophytosis of nail Corns and callosities Hallux malleus, left Pain in both feet [facility] Diagnosis Type II diabetes mellitus with neurological manifestations ([facility]/HCC)- Primary Type II or unspecified type diabetes mellitus with neurological manifestations, not stated as uncontrolled Onychomycosis Dermatophytosis of nail Corns and callosities Pain in both feet [facility] Diagnosis Axillary lymphadenopathy- Primary Enlargement of lymph nodes documented in [facility] Diagnosis Primary osteoarthritis of right knee- Primary Hypercoagulable state ([facility]/HCC) Primary hypercoagulable state Diabetic peripheral neuropathy associated with type 2 diabetes mellitus ([facility]) Primary hypertension ([facility]) Unspecified essential hypertension Ulcerative colitis without complications, unspecified location ([facility]/HCC) 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 ([facility]) care home current use of 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 Sacral ulcer, limited to breakdown of skin ([facility]) [facility] Diagnosis Nonintractable headache, unspecified chronicity pattern, unspecified headache type- Primary Neck pain Cervicalgia Paresthesia of left arm Disturbance of skin sensation Numbness of fingers Disturbance of skin sensation documented in this encounter [facility]* Diagnosis Leg numbness- Primary Disturbance of skin sensation documented in this encounter [facility]* Diagnosis Diabetic peripheral neuropathy associated with type 2 diabetes mellitus (CMS/HCC)- Primary 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) Mixed hyperlipidemia (CMS/HCC) Mixed hyperlipidemia Hypercoagulable state (CMS/HCC) Primary hypercoagulable state 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 Steatosis of liver Other chronic nonalcoholic liver disease Primary hypertension (CMS/HCC) Unspecified essential hypertension Venous insufficiency Unspecified venous (peripheral) insufficiency Primary osteoarthritis of left knee documented in this encounter [facility]* Diagnosis Axillary lymphadenopathy- Primary Enlargement of lymph nodes H/O diagnostic mammography documented in this encounter [facility] note* Diagnosis Medicare annual wellness visit, subsequent- Primary Advance care planning Other specified counseling Type 2 diabetes mellitus with stage 3a chronic kidney disease, with long-term current use of insulin (HCC) (CMS/HCC) Diabetic peripheral neuropathy associated with type 2 diabetes mellitus (CMS/HCC) 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) Mixed hyperlipidemia (CMS/HCC) Mixed hyperlipidemia Steatosis of liver Other chronic nonalcoholic liver disease Primary hypertension (CMS/HCC) Unspecified essential hypertension Chronic deep vein thrombosis (DVT) of femoral vein of left lower extremity (CMS/HCC) Spinal stenosis of lumbosacral region care home current use of 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 [facility] - [facility]* Type Description Date [...] surgical Hx Hospitalization History acute gastroenteritis 04/30-05/01/18 [employer] Other History general Narrative - Reported* Type Description Date [...] breast 2011 Surgical History colonoscopy with polypectomy 13 Surgical History carpal tunnel release with aj marc of a bone january 17, 2016 Surgical History Colonoscopy with biopsies due t o Colitis Hx. 07-05-16 Surgical History C3-4, C4-[address] Maynard. 1 Hospitalization History see above [employer] Other History [facility] - [facility] Other Hospital Discharge instructions Additional Instructions Continue your pain pills at home Return symptoms are worse [facility] Hospital Discharge instructions Additional Instructions Continue current meds [facility] Work [facility]: Chief Complaint and Reason for [...] History of DVT (deep vein thrombosis) De 2023 8:24am History of pulmonary embolism July 242023 8:24am History of DVT (deep vein thrombosis) [facility] 2024 8:43am History of pulmonary embolism September 092024 8:43am Chief Complaint Admit Date INR Follow Up August 03, 2024 8:24am INR f/u October 05, 2024 8:36am Reason for Visit Admit Date History of DVT (deep vein thrombosis) De 2023 8:24am History of pulmonary embolism July 242023 8:24am History of DVT (deep vein thrombosis) [facility] 2024 8:43am History of pulmonary embolism September 092024 8:43am History of DVT (deep vein thrombosis) [facility] 2024 8:36am History of pulmonary embolism September 242024 8:36am Chief Complaint Admit Date INR Follow Up August 03, 2024 8:24am INR f/u October 05, 2024 8:36am 3 month Follow up/colitis October 07, 2024 9:04am Reason for Visit Admit Date History of DVT (deep vein thrombosis) De 2023 8:24am History of pulmonary embolism July 242023 8:24am History of DVT (deep vein thrombosis) [facility] 2024 8:43am History of pulmonary embolism September 092024 8:43am History of DVT (deep vein thrombosis) [facility] 2024 8:36am History of pulmonary embolism September 242024 8:36am Crohn's colitis October 07, 2024 9:04am Chief Complaint Admit Date INR f/u October 05, 2024 8:36am 3 month Follow up/colitis October 07, 2024 9:04am INR f/u November 02, 2024 8:5 1am Reason for Visit Admit Date History of DVT (deep vein thrombosis) [facility] 2024 8:43am History of pulmonary embolism September 092024 8:43am History of DVT (deep vein thrombosis) [facility] 2024 8:36am History of pulmonary embolism September 242024 8:36am Crohn's colitis October 07, 2024 9:04am History of DVT (deep vein thrombosis) [facility] 2024 8:51am History of pulmonary embolism October 8:51am Chief Complaint Admit Date INR f/u October 05, 2024 8:36am 3 month Follow up/colitis October 07, 2024 9:04am INR f/u November 02, 2024 8:5 1am INR f/u November 30, 2024 8:37 am Reason for Visit Admit Date History of DVT (deep vein thrombosis) [facility] 2024 8:43am History of pulmonary embolism September 092024 8:43am History of DVT (deep vein thrombosis) [facility] 2024 8:36am History of pulmonary embolism September 242024 8:36am Crohn's colitis October 07, 2024 9:04am History of DVT (deep vein thrombosis) [facility] 2024 8:51am History of pulmonary embolism October 8:51am History of DVT (deep vein thrombosis) [facility] 2024 8:37am History of pulmonary embolism November 30, 2024 8:37am Chief Complaint Admit Date INR f/u October 05, 2024 8:36am 3 month Follow up/colitis October 07, 2024 9:04am INR f/u November 02, 2024 8:5 1am INR f/u November 30, 2024 8:37 am R92.8 December 07, 2024 8:3 4am Reason for Visit Admit Date History of DVT (deep vein thrombosis) Fe bruary 2024 8:36am History of pulmonary embolism September 242024 8:36am Crohn's colitis October 07, 2024 9:04am History of DVT (deep vein thrombosis) [facility] 2024 8:51am History of pulmonary embolism October 8:51am History of DVT (deep vein thrombosis) [facility] 2024 8:37am History of pulmonary embolism November 30, 2024 8:37am Chief Complaint Admit Date INR f/u November 02, 2024 8:5 1am INR f/u November 30, 2024 8:37 am R92.8 December 07, 2024 8:3 4am Reason for Visit Admit Date History of DVT (deep vein thrombosis) [facility] 2024 8:51am History of pulmonary embolism October 8:51am History of DVT (deep vein thrombosis) [facility] 2024 8:37am History of pulmonary embolism November 30, 2024 8:37am History of DVT (deep vein thrombosis) [facility] 2024 8:39am History of pulmonary embolism January 04, 2025 8:39am Family History No Family History Records Found Relationship Condition Age at Onset Recorded Date/T [...] Unknown sister Diabetes mellitus Unknown Advance Directives No Advanced Directives Records Found Advance Directive Response Recorded Date/ Time Advance [...] Reason Comments Mamms/Lt. axillary US w/exam Completed n November Reason Comments 3 month follow up Patient presents tod ay for a routine 3 month follow up. She has a complaint of Rt lower leg and knee pain for approx 2 weeks, a runny nose for 3 months, and an open sore on tailbone for about 3 days. Diabetes A1C= -- 6.8%. Previo us 7.3% Reason Comments ER Follow-up Reason Comments Numbness Pt presents LT leg n umbness, pt called yesterday regarding her leg, was recommended to go to the ER per Dr. Herzog. Reason Comments ER Follow-up Pt is being seen for a follow up for her ER visit at the [facility] on 12/06. She was seen for left leg numbness. An ultrasound was preformed to rule out blood clots and nothing was found. Leg Swelling Pt is still experien cing left leg swelling for about a month. Pt states that she woke up and saw the leg was swollen and it has gotten worse since then. Reason Comments Mamms/Lt. axillary US w/exam Reason Comments Medicare Annual Wellness Visit Subsequen t Patient presents today for an annual medicare wellness and 3 month follow up. BMP is in chart for review. Care Teams (unrecognized sec tion and content) Team Status: Active Member Role Status Dates Kristopher Herzog DO Primary Care Provider Active Team Status: Active Member Role Status Dates Kristopher Herzog DO Primary Care Provider Active Start: October 23, 2024 Sumit Diaz DO Attending Provider Active Sta rt: October 23, 2024 Team Status: Inactive Member Role Status Dates Kristopher Herzog DO Primary Care Provide r, Referring Provider Active Start: November 02, 2024 End: November 02, 2024 Kiersten Qureshi [facility] Attending Provider Active Start: November 02, 2024 End: November 02, 2024 Team Status: Inactive Member Role Status Dates Kristopher Herzog DO Primary Care Provide r, Referring Provider Active Start: November 30, 2024 End: November 30, 2024 Kiersten Qureshi RPH Attending Provider Active Start: November 30, 2024 End: November 30, 2024 Team Status: Inactive Member Role Status Dates Kristopher Herzog DO Primary Care Provider Active Start: December 07, 2024 End: December 07, 2024 Radha Verduzco DO Attending Provider Active Start: December 07, 2024 End: December 07, 2024 Team Status: Inactive Member Role Status Dates Kristopher Herzog DO Primary Care Provide r, Referring Provider Active Start: January 04, 2025 End: January 04, 2025 Kiersten Qureshi RPH Attending Provider Active Start: January 04, 2025 End: January 04, 2025 Team Status: Inactive Member Role Status Dates Kristopher Herzog DO Primary Care Provide r, Attending Provider Active Start: October 05, 2023 End: October 05, 2023 Team Status: Inactive Member Role Status Dates Kristopher Herzog DO Primary Care Provide r, Referring Provider Active Start: November 09, 2023 End: November 09, 2023 Tita Roberts PharmD Attending Provider Active Start: November 09, 2023 End: November 09, 2023 Team Status: Active Member Role Status Dates Kristopher Herzog DO Primary Care Provider, Attending P roelio Active Team Status: Inactive Member Role Status Dates Kristopher Herzog DO Primary Care Provider Active Radha Verduzco DO Attending Provider Active Team Status: Inactive Member Role Status Dates Kristopher Herzog DO Primary Care Provider Active Edmond Branham MD Emergency Provider Active Team Status: Inactive Member Role Status Dates Kristopher Herzog DO Primary Care Provider Active Tang Shrestha MD Attending Provider Active Team Status: Inactive Member Role Status Dates Kristopher Herzog DO Primary Care Provider Active Marlon Molina DPM Attending Provider Active Team Status: Inactive Member Role Status Dates Kristopher Herzog DO Primary Care Provider, Attending P rovider Active Team Status: Active Member Role Status Dates Kristopher Herzog DO Primary Care Provider Active Celio Lobo PA-C Emergency Provider Active Rosalina Shelton MD Admit Provider, Attending Provide r Active Team Status: Inactive Member Role Status Dates Kristopher Herzog DO Primary Care Provider Active Celio [...] 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 Primary Care Provider Active Edi Manager Relationship Specialty Start Date End Date Kristopher Herzog DO [address] [place] [address] PCP - [facility]oted 12/22/21 Kristopher Herzog DO [address] [place] [address] PCP - General Internal Medicine 12/30/22 Team Status: Inactive Member Role Status Dates Kristopher Herzog DO Primary Care Provider Active Start: December 07, 2023 End: December 07, 2023 Sandy Clark DO Attending Provider Active St art: December 07, 2023 End: December 07, 2023 Team Status: Inactive Member Role Status Dates Kristopher Herzog DO Primary Care Provider Active Start: December 07, 2023 End: December 07, 2023 Radha Verduzco DO Attending Provider Active Start: December 07, 2023 End: December 07, 2023 Team Status: Inactive Member Role Status Dates Kristopher Herzog DO Primary Care Provide r, Referring Provider Active Start: December 14, 2023 End: December 14, 2023 Tita Roberts PharmD Attending Provider Active Start: December 14, 2023 End: December 14, 2023 Team Status: Inactive Member Role Status Dates Kristopher Herzog DO Primary Care Provider Active Start: December 28, 2023 End: December 28, 2023 Sandy Clark DO Attending Provider Active St art: December 28, 2023 End: December 28, 2023 Team Status: Active Member Role Status Dates Kristopher Herzog DO Primary Care Provider Active Start: December 28, 2023 Sandy Clark DO Attending Provider, Other Provider Active Start: [...] 2024 End: January 20, 2024 Kiersten Qureshi [facility] Attending Provider Active Start: January 20, 2024 [...] 2024 End: February 17, 2024 Kiersten Qureshi [facility] Attending Provider Active Start: February 17, 2024 End: February 17, 2024 Team Status: Inactive Member Role Status Leesa Herzog DO Primary Care Provide r, Referring Provider Active Start: March 14, 2024 End: March 14, 2024 Kiersten Qureshi Olman Attending Provider Active Start: March 14, 2024 End: March 14, 2024 Team Status: Inactive Member Role Status Leesa Herzog DO Primary Care Provide r, Referring Provider Active Start: April 14, 2024 End: April 14, 2024 Kiersten Qureshi Olman Attending Provider Active Start: April 14, 2024 End: April 14, 2024 Team Status: Inactive Member Role Status Leesa Herzog DO Primary Care Provide r, Referring Provider Active Start: May 09, 2024 End: May 09, 2024 Kiersten Qureshi Olman Attending Provider Active Start: May 09, 2024 End: May 09, 2024 Team Status: Inactive Member Role Status Leesa Herzog DO Primary Care Provide r, Referring Provider Active Start: June 06, 2024 End: June 06, 2024 Kiersten Qureshi [facility] Attending Provider Active Start: June 06, 2024 End: June 06, 2024 Edi Manager Relationship Specialty Start Date End Date Kristopher Herzog DO [address] [place] [address] PCP - [employer]oted 12/22/21 Kristopher Herzog DO [address] [place] [address] PCP - General Internal Medicine 12/30/22 Edi Manager Relationship Specialty Start Date End Date Kristopher Herzog DO [address] [place] [address] PCP - Devoted 12/22/21 Kristopher Herzog DO [address] [place] [address] PCP - General Internal Medicine 12/30/22 Team Status: Inactive Member Role Status Leesa Herzog DO Primary Care Provider Active Start: June 29, 2024 End: June 29, 2024 Sandy Clark DO Attending Provider Active St art: June 29, 2024 End: June 29, 2024 Team Status: Inactive Member Role Status Leesa Herzog DO Primary Care Provide r, Referring Provider Active Start: July 04, 2024 End: July 04, 2024 Tita Roberts PharmD Attending Provider Active Start: July 04, 2024 End: July 04, 2024 Edi Manager Relationship Specialty Start Date End Date Kristopher Herzog DO [address] [place] [address] PCP - [facility] 12/22/21 08/23/24 Kristopher Herzog DO [address] [place] [address] PCP - General Internal Medicine 12/30/22 Edi Manager Relationship Specialty Start Date End Date Kristopher Herzog DO [address] [place] [address] PCP - Devoted 12/22/21 08/23/24 Kristopher Herzog DO [address] [place] [address] PCP - General Internal Medicine 12/30/22 Edi Manager Relationship Specialty Start Date End Date Kristopher Herzog DO [address] [place] [address] PCP - Devoted 12/22/21 Kristopher Herzog DO [address] [place] [address] PCP - General Internal Medicine 12/30/22 Edi Manager Relationship Specialty Start Date End Date Kristopher Herzog DO [address] [place] [address] PCP - [facility] 12/22/21 Kristopher Herzog DO [address] [place] [address] PCP - General Internal Medicine 12/30/22 Team Status: Inactive Member Role Status Dates Kristopher Herzog DO Primary Care Provide r, Referring Provider Active Start: August 03, 2024 End: August 03, 2024 Kiersten Qureshi [facility] Attending Provider Active Start: August 03, 2024 End: August 03, 2024 Team Status: Inactive Member Role Status Dates Kristopher Herzog DO Primary Care Provide r, Referring Provider Active Start: September 09, 2024 End: September 09, 2024 Kiersten Qureshi RPH Attending Provider Active Start: September 09, 2024 End: September 09, 2024 Edi Manager Relationship Specialty Start Date End Date Kristopher Herzog DO [address] [place] [address] PCP - General Internal Medicine 12/30/22 Team Status: Inactive Member Role Status Dates Kristopher Hrezog DO Primary Care Provide r, Referring Provider [...] October 07, 2024 End: October 07, 2024 Edi Manager Relationship Specialty Start Date End Date Kristopher Herzog DO [address] [place] [address] PCP - General Internal Medicine 12/30/22 Edi Manager Relationship Specialty Start Date End Date Kristopher Herzog DO [address] [place] [address] PCP - General Internal Medicine 12/30/22 Edi Manager Relationship Specialty Start Date End Date Kristopher Herzog DO [address] [place] [address] PCP - General Internal Medicine 12/30/22 Edi Manager Relationship Specialty Start Date End Date Kristopher Herzog DO [address] [place] [address] PCP - General Internal Medicine 12/30/22 Edi Manager Relationship Specialty Start Date End Date Kristopher HerzogDO [address] [place] [address] PCP - General Internal Medicine 12/30/22 Edi Manager Relationship Specialty Start Date End Date Kristopher Herzog, DO [address] [place] [address] PCP - General Internal Medicine 12/30/22 Edi Manager Relationship Specialty Start Date End Date Kristopher HerzogDO [address] [place] [address] PCP - General Internal Medicine 12/30/22 Goals (unrecognized section and content) Goals may be documented in a n alternate section INFORMATION SOURCE (unrecogn ized section and content) DATE CREATED AUTHOR 12/18/2022 [facility] DATE CREATED AUTHOR AUTHOR'S ORGANIZ ATION 12/09/2024 [facility] DATE CREATED AUTHOR AUTHOR'S ORGANIZ ATION 01/09/2025 [facility] FOR RECORDS PERTAINING TO PATIENTS WHO [...] BE BASED ON THE PRIMARY CLINICAL RECORDS. [employer] provides no warranty or guarantee of the accuracy or completeness of information in this document.
[2025-01-11 08:48] LABS: Basophils Percent Auto 0.6 % (0.2-2.0); Eosinophils Absolute Auto 0.1 10^3/uL (0.0-0.7); Eosinophils Percent Auto 2.6 % (0.9-7.0); Hematocrit 37.5 % (36.0-48.0); Hemoglobin 12.9 g/dL (12.0-16.0); Immature Granulocytes Abs Auto 0.01 10^3/uL (0.00-0.03); Immature Granulocytes Pct Auto 0.2 % (0.0-0.5); Lymphocytes Absolute Auto 1.2 10^3/uL (1.2-3.8); Mean Corpuscular HGB Conc 34.4 g/dL (29.9-35.2); Mean Corpuscular Volume 95.9 fL (81.0-99.0); Mean Platelet Volume 10.8 fL (9.5-13.5); Monocytes Absolute Auto 0.4 10^3/uL (0.3-0.8); Monocytes Percent Auto 8.3 % (1.7-12.0); Neutrophils Absolute Auto 3.3 10^3/uL (1.4-6.5); Neutrophils Percent Auto 64.3 % (43.0-75.0); Platelet Count 223 10^3/uL (150-450); Red Blood Count 3.91 10^6/uL (4.20-5.40); Red Cell Distribution Width 12.3 % (11.0-15.0); White Blood Count 5.1 10^3/uL (4.0-11.0)
[2025-01-11 08:56] LABS: Creatinine Urine Random 65.53 mg/dL (20.00-300.00); Microalbumin Urine Random <1.3 mg/dL (<=30.0)
[2025-01-11 09:09] LABS: Alanine Aminotransferase 29 U/L (14-59); Albumin Globulin Ratio 0.9; Albumin Level 3.3 g/dL (3.4-5.0); Alkaline Phosphatase 57 U/L (46-116); Anion Gap 15.9; Aspartate Amino Transferase 20 U/L (15-37); BUN Creatinine Ratio 23.5; Bilirubin Total 0.4 mg/dL (0.2-1.0); Carbon Dioxide 26.3 mmol/L (21.0-32.0); Chloride 104 mmol/L (98-107); Cholesterol 140 mg/dL (<=200); Estimated GFR (African America >60 (>=60 mL/min/1.73m^2); Estimated GFR (Non-African Ame 56 (>=60 mL/min/1.73m^2); Globulin 3.5 g/dL; Glucose 167 mg/dL (74-106); HDL Cholesterol 47 mg/dL (40-60); Potassium 4.2 mmol/L (3.5-5.1); Sodium 142 mmol/L (136-145); Thyroid Stimulating Hormone 1.511 uIU/mL (0.358-3.740); Total Protein 6.8 g/dL (6.4-8.2); Triglycerides 159 mg/dL (<=150); VLDL CHOLESTEROL 31.8 mg/dL
[2025-01-11 09:37] LABS: Estimated Average Glucose 169 mg/dL; Glycohemoglobin A1C 7.5 % (4.5-6.2)
== END 2025-01-11 08:10 | disposition home or self-care (01) ==
LOC: LAB 08:11
PROVIDERS: Family Provider Family Medicine; PCP Internal Medicine; Visit Provider Internal Medicine
DX: E78.2 Mixed hyperlipidemia (principal); E11.42 Type 2 diabetes mellitus with diabetic polyneuropathy; Z79.4 Long term (current) use of insulin; I10 Essential (primary) hypertension; Z79.899 Other long term (current) drug therapy
CPT/HCPCS: 36415; 80053; 80061; 82043; 82570; 83036; 84443; 85025

== ENCOUNTER 2025-03-24 21:24 | Emergency (ER) | payer MEDICARE, SELFPAY ==
[2025-03-24 21:26] VITALS: BP 140/68; PULSE 70; TEMP 37; O2SAT 100; BMI 33.1
--- NOTE | 2025-03-24 21:26 | ED.GENADUL1 ---
HPI HPI - General Adult General Chief complaint: Chest Pain Stated complaint: WEAKNESS Time Seen by Provider: 03/24/25 21:25 Source: patient and medical record Mode of arrival: ambulance Limitations: no limitations History of Present Illness HPI narrative: This 74-year-old female states around 8:30 PM tonight she noticed pain over the precordium and it hurts to take a deep breath. Symptoms have now resolved. EMS was activated and she was transported to the ED uneventfully. Patient has a remote history of DVT. She was then warfarin but was switched to Eliquis less than a week ago. Related Data Home Medications ?Medication ?Instructions ?Recorded ?Confirmed citalopram 20 mg tablet 20 mg PO DAILY 12/06/24 03/24/25 furosemide 20 mg tablet 20 mg PO DAILY 12/06/24 03/24/25 insulin aspar prt-insulin aspart 14 unit subcut BID 12/06/24 03/24/25 100 unit/mL (70-30) subcutaneous soln (Novolog Mix 70-30 U-100 Insuln) losartan 50 mg tablet 50 mg PO DAILY 12/06/24 03/24/25 pantoprazole 40 mg tablet,delayed 40 mg PO DAILY 12/06/24 03/24/25 release rosuvastatin 20 mg tablet 20 mg PO DAILY 12/06/24 03/24/25 apixaban 5 mg tablet (Eliquis) 5 mg PO BID 03/24/25 03/24/25 Allergies Allergy/AdvReac Type Severity Reaction Status Date / Time No Known Drug Allergies Allergy Verified 03/24/25 21:26 Review of Systems ROS Status of ROS 10 or more systems reviewed and unremarkable except as noted in history and below [facility] Social History Little interest or pleasure in doing things: not at all Feeling down, depressed, or hopeless: not at all Exam Narrative Exam Narrative: Patient is asymptomatic upon arrival. Vital signs are stable and are as documented. HEENT exam is normal to inspection. Neck is supple. Lung sounds are clear to auscultation bilaterally with good air entry. Heart has regular rate and rhythm. S1 and S2 are normal. Patient's pain is reproducible by palpation over the costochondral junctions over the left anterior chest. There is no underlying crepitus. Abdomen is soft nontender and there is no organomegaly. She moves all extremities actively. Patient has compression stocking over the left lower leg which is mildly edematous. There is no evidence of cellulitis. Constitutional Vital Signs, click to edit/add: Last Vital Signs Temp 98.6 F 03/24/25 21:26 Pulse 70 03/24/25 23:08 Resp 20 03/24/25 23:08 BP 141/74 03/24/25 23:08 Pulse Ox 97 03/24/25 23:08 O2 Del Method Room Air 03/24/25 23:08 Course Vital Signs Vital signs: Vital Signs Temperature 98.6 F 03/24/25 21:26 Pulse Rate 70 03/24/25 21:26 Respiratory Rate 20 03/24/25 21:26 Blood Pressure 140/68 03/24/25 21:26 Pulse Oximetry 100 03/24/25 21:26 Oxygen Delivery Method Room Air 03/24/25 21:26 Temperature 98.6 F 03/24/25 21:26 Pulse Rate 70 03/24/25 23:08 Respiratory Rate 20 03/24/25 23:08 Blood Pressure 141/74 03/24/25 23:08 Pulse Oximetry 97 03/24/25 23:08 Oxygen Delivery Method Room Air 03/24/25 23:08 Medical Decision Making MDM Narrative Medical decision making narrative: The twelve-lead EKG is interpreted by me which shows sinus rhythm with no ischemic change. 2 sets of troponins are normal. Chest x-ray is nondiagnostic. My impression is that the patient's pain is not of cardiac origin and likely musculoskeletal etiology. In the ED she is treated with oral acetaminophen and IV fentanyl upon discharge is to take acetaminophen at home. She is to seek follow-up with PCP and may return anytime for worsening symptoms. Lab Data Labs: Lab Results 03/24/25 03/24/25 Range/Units 22:04 23:35 WBC 6.3 (4.0-11.0) 10^3/uL RBC 3.75 L (4.20-5.40) 10^6/uL Hgb 12.0 (12.0-16.0) g/dL Hct 35.2 L (36.0-48.0) % MCV 93.9 (81.0-99.0) fL MCH 32.0 (26.7-34.0) pg MCHC 34.1 (29.9-35.2) g/dL RDW 12.5 (11.0-15.0) % Plt Count 270 (150-450) 10^3/uL MPV 10.3 (9.5-13.5) fL Neut % (Auto) 55.7 (43.0-75.0) % Lymph % (Auto) 33.0 (20.5-60.0) % [place] % (Auto) 7.8 (1.7-12.0) % Eos % (Auto) 2.4 (0.9-7.0) % Baso % (Auto) 0.8 (0.2-2.0) % Neut # (Auto) 3.5 (1.4-6.5) 10^3/uL Lymph # (Auto) 2.1 (1.2-3.8) 10^3/uL [place] # (Auto) 0.5 (0.3-0.8) 10^3/uL Eos # (Auto) 0.2 (0.0-0.7) 10^3/uL Baso # (Auto) 0.1 (0.0-0.1) 10^3/uL Abs Immat Gran (auto) 0.02 (0.00-0.03) 10^3/uL Imm/Tot Granulo (auto) 0.3 (0.0-0.5) % PT 11.6 (9.0-11.6) sec INR 1.11 D-Dimer 0.31 (<=0.59) mg/L FEU Sodium 139 (136-145) mmol/L Potassium 3.6 (3.5-5.1) mmol/L Chloride 103 (98-107) mmol/L Carbon Dioxide 24.5 (21.0-32.0) mmol/L Anion Gap 15.1 BUN 19.0 H (7.0-18.0) mg/dL Creatinine 1.24 H (0.55-1.02) mg/dL Est GFR ( Amer) 51 L (>=60 mL/min/1.73m^2) Est GFR (Non-Af Amer) 42 L (>=60 mL/min/1.73m^2) BUN/Creatinine Ratio 15.3 Glucose 94 (74-106) mg/dL Calcium 9.0 (8.5-10.1) mg/dL Total Bilirubin 0.2 (0.2-1.0) mg/dL AST 18 (15-37) U/L ALT 27 (14-59) U/L Alkaline Phosphatase 64 (46-116) U/L Troponin I High Sens 6.5 6.4 (4.0-51.3) pg/mL NT-Pro-B Natriuret Pep 159.0 (<=900.0) pg/mL Total Protein 7.1 (6.4-8.2) g/dL Albumin 3.3 L (3.4-5.0) g/dL Globulin 3.8 g/dL Albumin/Globulin Ratio 0.9 Lipase 11.0 L (16.0-77.0) U/L Discharge Plan Discharge Chief Complaint: Chest Pain Clinical Impression: Chest pain, non-cardiac, Atypical chest pain Patient Disposition: Home, Self-Care Time of Disposition Decision: 00:26 Condition: Good Mode of Transportation: Private Vehicle Prescriptions / Home Meds: No Action losartan 50 mg tablet 50 mg PO DAILY citalopram 20 mg tablet 20 mg PO DAILY pantoprazole 40 mg tablet,delayed release (DR/EC) 40 mg PO DAILY furosemide 20 mg tablet 20 mg PO DAILY insulin asp prt-insulin aspart [Novolog Mix 70-30 U-100 Insuln] 100 unit/mL (70-30) solution 14 unit SUBCUT BID rosuvastatin 20 mg tablet 20 mg PO DAILY Eliquis 5 mg tablet 5 mg PO BID Print Language: Hong [place]er Instructions: Chest Wall Pain (ED) Additional Instructions: Take 2 extra strength Tylenol tablets up to twice a day for pain as needed. Follow-up with your physician after the weekend. Return for worsening symptoms. Referrals: SHANICE HERZOG [Primary Care Provider, Family Practice] - 1 week Discharge Date/Time: 03/25/25 01:05
[2025-03-24 21:30] VITALS: PULSE 69; O2SAT 100
--- NOTE | 2025-03-24 21:30 | ECG_ITS ---
[facility] Test Date: 2025-03-24 Pat Name: ANDREA GLEZ Department: Room: - Gender: Female Glycerin Operator: : [id number] Requested By: [id number] Order Number: [id number] Reading MD: SANDEEP MOHAN M.D. Measurements Intervals [place] Rate: 67 P: -30 NC: 176 QRS: 14 QRSD: 80 T: 14 QT: 414 QTc: 430 Interpretive Statements 1100 Sinus rhythm 9110 normal ECG Compared to ECG 10/21/2024 14:28:50 No significant changes Electronically Signed On 03-25-2025 21:30:38 EDT by SANDEEP MOHAN M.D.
--- OUTSIDE RECORDS SUMMARY | 2025-03-24 21:41 | XMS_ITS | CCD ---
Author Organization [facility] Care Team Providers Care Global Expansion Sales Director Name Role Phone Lauren Vance Unavailable Antonio Thompson Unavailable Tang Mcclellan Unavailable DO Kristopher Herzog Primary Care Provider MD Tang Mcclellan Attending Provider [phone] IRAM Molina Attending Provider DO Kristopher Herzog Attending Provider DO Kristopher Herzog Primary Care Provider DO Kristopher Herzog Attending Provider [phone] Attending Provider DO Kristopher Herzog Primary Care Provider IRAM Molina Attending Provider DO Kristopher Herzog Attending Provider DO Radha Way Attending Provider [phone] MD Edmond Branham Emergency Provider Olu Rene Unavailable DO Kristopher Herzog Primary Care Provider DO Kristopher Herzog Attending Provider Kiersten Qureshi Unavailable DO Kristopher Herzog Primary Care Provider MD Edmond Branham Emergency Provider [phone] DO Kristopher Herzog Attending Provider DO Radha Way Attending Provider DO Kristopher Herzog Attending Provider FAITH Lobo Emergency Provider MD Rosalina Shelton Admit Provider MD Rosalina Shelton Attending Provider DO Chuy Kristopher Primary Care Provider [phone] DO Gabriel Castaneda Attending Provider [phone] DO Kristopher Herzog Primary Care Provider DO Kristopher Herzog Attending Provider DO Radha Way Attending Provider NO FAMILY, PHYSICIAN Primary Care Provider Unava ilable Tita Roberts Unavailable Kristopher Herzog DO Unavailable [phone] Kristopher Herzog DO Primary Care Provider DO Kristopher Herzog Primary Care Provider DO Kristopher Herzog Attending Provider DO Chuy Kristopher Primary Care Provider DO Kristopher Herzog Attending Provider [phone] Attending Provider Ly, DO Sandy L Attending Provider DO Kristopher Herzog Primary Care Provider [phone] DO Johnny Keen Emergency Provider DO Kristopher Herzog Primary Care Provider [phone] DO Chuy Kristopher Primary Care Provider Kristopher Herzog DO Unavailable [phone] Kristopher Herzog Primary Care Unavailable Ly, Sandy L Admitting Unavailable Ly, Sandy L Attending Unavailable Johnny Keen Admitting Unavailable Johnny Keen Attending Unavailable Kristopher Herzog Primary Care Unavailable Radha Way Admitting Unavailable Radha Way Attending Unavailable Kristopher Herzog Primary Care Unavailable Kristopher Herzog DO Primary Care Provider [phone] DO Attending Provider Kristopher Herzog DO Primary Care Provider Kristopher Herzog DO Referring Provider [phone] Kiersten Qureshi RPH Attending Provider Toyin Roberts PharmD, Tita Attending Provider Kristopher Batista DO Primary Care Provider [phone] Kristopher Herzog DO Referring Provider Kiersten Qureshi RPH Attending Provider Karlos Ramey MD Primary Care Provider [phone] KRISTOPHER HERZOG Attending Unavailable KRISTOPHER HERZOG Referring Unavailable DIDSULY VENITA L Attending Unavailable DIDION, VENITA L Referring Unavailable DIDION, VENITA L Referring Unavailable MARLON BRANHAM Attending Unavailable DIDION, VENITA L Attending Unavailable DIDION, VENITA L Referring Unavailable DIDION, VENITA L Referring Unavailable KRISTOPHER HERZOG Attending Unavailable LUBA, RADHA Thurman Attending Unavailable KRISTOPHER HERZOG Attending Unavailable AROLDO BRANHAMANDRA H Attending Unavailable DIDION, VENITA L Attending Unavailable DIDION, VENITA L Referring Unavailable VINAY, MARLON H Attending Unavailable LUBA, RADHA H Attending Unavailable ADAM RODRIGUEZ Attending Unavailable MARLON BRANHAM Attending Unavailable AROLDO BRANHAMANDRA H Attending Unavailable VINAY, MARLON H Attending Unavailable CARO HUGO Attending Unavailable DIDION, VENITA L Referring Unavailable BRANHAM, MARLON H Attending Unavailable VINAY, MARLON H Attending Unavailable Medications Current Medications Medication Drug Class(es) Dates Sig (Normalized) Sig (Original) acetaminophen 500 mg oral tablet (20 sources) Start: 05-08-2021 take 2 tablets by mouth every six hours as needed for pain take 2 tablets by [facility] twice daily as needed for pain acetaminophen (Tylenol Extra Strength) 5 00 MG tablet Take 1,000 mg by mouth 2 (two) times a day as needed for mild pain. Active Tylenol Active acetaminophen 325 mg / HYDROcodone bitartrate 5 mg oral tablet (20 sources) Opioid Agonist Start: 03-02-2025 End: 03-07-2025 take 1 tablet by mouth every six hours for pain HYDROcodone-acetaminophen ([place]) 5-325 MG tablet Indications: Hallux malleus, right , Right foot pain Take 1 tablet by mouth every 6 (six) hours if needed for severe pain for up to 5 days 20 tablet 03/02/2025 03/07/2025 Active Start: 02-16-2025 End: 02-21-2025 take 1 tablet by mouth every six hours for pain HYDROcodone-acetaminophen ([place]) 5-325 MG tablet Indications: Hallux malleus, right Take 1 tablet by mouth every 6 (six) hours if needed for severe pain for up to 5 days 20 tablet 02/16/2025 02/21/2025 Active Start: 02-09-2024 End: 10-07-2024 take 1 tablet by mouth every four to six hours as needed for pain Hydrocodone-Acetaminophen 5-325 mg table t Discontinued 1 TAB PO EVERY 4-6 HOURS as needed for pain 10 February 09, 2024 October 07, 2024 10:08am Start: 01-03-2021 End: 05-08-2021 take 1 tablet by mouth every four to six hours as needed for pain Hydrocodone-Acetaminophen 5-325 mg Table t Discontinued 1 TAB PO EVERY 4-6 HOURS as needed for Pain 12 January 03, 2021 May 08, 2021 10:21am Start: 04-30-2017 End: 06-19-2017 take 1 tablet by mouth every four to six hours as needed for pain Hydrocodone-Acetaminophen ([place]) 5-325 mg tablet Discontinued 1 TAB PO EVERY 4-6 HOURS as needed for pain April 30, 2017 June 19, 2017 9:24am Start: 04-30-2017 take 1 tablet by barry th every six hours as needed Start: 10-15-2014 take 1 tablet by barry th every six hours as needed amitriptyline hydrochloride 50 mg oral tablet (20 sources) Tricyclic Antidepressant Start: 12-28-2023 End: 04-27-2024 take 1 tablet by mouth at bedtime amitriptyline (Elavil) 50 MG tablet Indications: Essential hypertension, benign (CMS/HCC) TAKE 1 TABLET BY MOUTH AT BEDTIME 90 tablet 3 12/28/2023 04/27/2024 Discontinued (Therapy completed) Start: 02-09-2023 take 1 tablet by barry th at bedtime amitriptyline (Elavil) 50 MG tablet Indications: Essential hypertension, benign (CMS/HCC) Take 1 tablet (50 mg) by mouth at bedtime. 90 tablet 3 02/09/2023 Active Start: 04-29-2017 End: 06-29-2024 take 1 tablet by mouth once daily at bedtime Amitriptyline 25 mg Tablet Discontinued 25 MG PO Daily at bedtime April 29, 2017 12:00am June 29, 2024 11:36am apixaban 5 mg oral tablet (2 sources) Factor Xa Inhibitor Start: 03-16-2025 take 1 tablet by mouth in the morning Eliquis 5 MG tablet Take 5 mg by mouth in the morning and 5 mg before bedtime. 03/16/2025 Active Ascorbic Acid / Beta Carotene / cuprous oxide / Lutein / sodium selenate / Vitamin E / Zinc Oxide (20 sources) Vitamin C Ocuvite Active ascorbic acid 60 mg / cuprous oxide 2 mg / dl-alpha tocopheryl acetate 30 mg / lutein 6 mg / zinc oxide 15 mg oral capsule (20 sources) Vitamin C Multiple Vitamins-Minerals (Ocuvite Adult Formula) capsule as directed Orally Active balsalazide disodium 750 mg oral capsule (5 sources) Aminosalicylate Start: 08-28-19 take 3 capsules by mouth every twelve hours Betamethasone (20 sources) Corticosteroid Betamethasone Va lerate Active cholecalciferol 0.025 mg ora l capsule (20 sources) Vitamin D Start: 04-29-2017 take 1 capsule by mo [facility] once daily take 1 tablet by mouth in the mo rning cholecalciferol (Vitamin D-3) 25 MCG (1000 UT) tablet Take 1,000 Units by mouth in the morning. Active citalopram 20 mg oral tablet (20 sources) Serotonin Reuptake Inhibitor Start: 04-29-2017 citalopram (CeleXA) 20 MG tablet Indications: Depression, unspecified depression type TAKE 1 TABLET EVERY MORNING 90 tablet 2 01/31/2025 Active clobetasol propionate 0.0005 mg/mg topical ointment (20 sources) Corticosteroid Start: 01-26-2025 clobetasol (Te movate) 0.05 % ointment Indications: Atrophic vaginitis APPLY TO AFFECTED AREA TWICE A DAY 30 g 3 01/26/2025 Active Start: 06-22-2024 clobetasol (Te movate) 0.05 % ointment Indications: Atrophic vaginitis Apply topically 2 (two) times a day 15 g 1 06/22/2024 Active Start: 09-17-2023 clobetasol (Te movate) 0.05 % ointment Indications: Dermatitis Apply topically 2 (two) times a day 30 g 2 09/17/2023 Active Continuous Glucose Melting Operator (FreeStyle Carline 3 Crowley) device (20 sources) Start: 11-01-2024 Continuous Glu cose Melting Operator (FreeStyle Carline 3 Crowley) device Indications: Diabetic peripheral neuropathy associated with type 2 diabetes mellitus (HCC) , residential current use of insulin (HCC) USE I DEVICE CONTINUOUSLY 1 each 3 11/01/2024 Active Start: 11-01-2024 Continuous Glu cose Melting Operator (FreeStyle Carline 3 Crowley) device Indications: Diabetic peripheral neuropathy associated with type 2 diabetes mellitus (CMS/HCC) , 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) USE I DEVICE CONTINUOUSLY 1 each 3 11/01/2024 Active Start: 09-06-2024 End: 09-06-2025 Continuous Glucose Melting Operator (FreeStyle Carline 3 Crowley) device Indications: Diabetic peripheral neuropathy associated with type 2 diabetes mellitus (CMS/HCC) , residential current use of insulin (CMS/HCC) 1 Device continuously 1 each 09/06/2024 09/06/2025 Active Continuous Glucose Sensor (FreeStyle Carline 3 Sensor) misc (20 sources) Start: 09-06-2024 End: 09-06-2025 Continuous Glucose Sensor (FreeStyle Carline 3 Sensor) misc Indications: Diabetic peripheral neuropathy associated with type 2 diabetes mellitus (HCC) , 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 (HCC) 1 Device every 14 (fourteen) days 7 each 3 09/06/2024 09/06/2025 Active Start: 09-06-2024 End: 09-06-2025 Continuous Glucose Sensor (F reeStyle Carline 3 Sensor) misc Indications: Diabetic peripheral neuropathy associated with type 2 diabetes mellitus (CMS/HCC) , residential current use of insulin ([facility]) 1 Device every 14 (fourteen) days [...] oral tablet (20 sources) Loop Diuretic Start: 12-23-19 25 take 1 tablet by mouth once daily [...] HumaLOG Mix 75/25 KwikPen (5 sources) Start: 05-24-20 10 hydrocortisone acetate 25 mg rectal suppository (20 sources) Corticosteroid Start: 06-29-20 24 End: 10-07-19 25 insulin aspart protamine, human 70 unt/ml / insulin aspart, human 30 unt/ml injectable suspension (20 sources) Insulin Analog Start: 01-31-20 25 insulin aspart protamine-insulin aspart (NovoLOG MIX 70/30) (70-30) 100 UNIT/ML injection Indications: Type 2 diabetes mellitus with diabetic polyneuropathy, with long-term current use of insulin ([facility]) Inject 14 Units under the skin in the morning and 14 Units in the evening. Inject with meals. 26 mL 3 01/30/2025 Active Start: 01-09-2025 insulin aspart protamine-insulin aspart (NovoLOG MIX 70/30) (70-30) 100 UNIT/ML injection Indications: Type 2 diabetes mellitus with diabetic polyneuropathy, with long-term current use of insulin (CMS/HCC) Inject 14 Units under the skin Daily in the Morning AND 14 Units at bedtime. 26 mL 3 01/09/2025 Active Start: 12-14-2024 insulin aspart protamine-insulin aspart (NovoLOG MIX 70/30) [...] 10 mL 5 10/10/2024 Active Start: 10-07-2024 Start: 11-09-2023 End: 10-07-2024 Insulin Asp Prt-Insulin Aspa rt (Novolog Mix 70-30flexpen U-100) 100 unit/mL (70-30) insulin pen Discontinued 12 UNIT SUBCUT Twice daily November 09, 2023 12:00am October 07, 2024 10:10am Per patient Start: 08-20-2023 insulin aspart protamine-insulin aspart (NovoLOG Mix 70-30) (70-30) 100 UNIT/ML injection Indications: Type 2 diabetes mellitus with diabetic polyneuropathy, with long-term current use of insulin (CMS/HCC) Inject 12 Units under the skin in [...] (Cozaar) 50 MG tablet Indications: Primary hypertension TAKE 1 TABLET EVERY MORNING 90 tablet [...] 1 tablet by barry th once daily Start: 04-29-2017 End: 11-22-2021 take 2 tablets [...] tablet (20 sources) HMG-CoA Reductase Inhibitor Start: 01-26-2025 take 1 tablet by mouth at bedtime rosuvastatin (Crestor) 20 MG tablet Indications: Mixed hyperlipidemia TAKE 1 TABLET BY MOUTH AT BEDTIME 90 tablet 3 01/26/2025 Active Start: 05-08-2021 End: 12-13-2022 take 1 tablet by mouth at bedtime rosuvastatin (Crestor) 20 MG tablet Indications: Mixed hyperlipidemia TAKE 1 TABLET BY MOUTH AT BEDTIME 90 tablet 3 01/26/2025 Active Crestor Active sulfaSALAzine 500 mg oral tablet (20 sources) Aminosalicylate Start: 09-23-2022 End: 04-13-2024 take 1 tablet by mouth three times daily Start: 09-23-2022 End: 04-13-2024 take 1000 mg [...] Active Start: 01-09-2022 take 2 tablets by [facility] every six hours sulfaSALAzine 500 MG 2 tablets Orally qid for 30 day(s) December, Active Start: 11-22-2021 End: 11-26-2021 take 2 tablets by mouth every eight hours Sulfasalazine (Azulfidine En-Tabs) 500 mg tablet,delayed release (DR/EC) Discontinued 1000 MG PO Q8H November 22, 2021 12:00am November 26, 2021 12:08pm TAKE 2 TABLETS BY MOUTH EVERY 8 HOURS FOR 30 DAYS Start: 11-07-2021 take 1 tablet by [facility] every eight hours sulfaSALAzine 500 MG 1 [...] at 0945, For 1 dose Start: 12-26-2019 BRAXTONALOG - 10 aaron g December, 40 mg Start: 08-22-2019 KENALOG - 10 m g Jul, 40 mg Start: 11-05-2018 KENALOG - 10 m g Oct, 40 mg Start: 10-27-2014 KENALOG - 10 aaron g Oct, 40 mg Start: 10-15-2014 KENALOG [...] tablet (20 sources) Vitamin K Antagonist Start: 03-15-2025 End: 03-22-2025 warfarin (Coumadin) 3 MG tablet Indications: Chronic deep vein thrombosis (DVT) of femoral vein of left lower extremity (HCC) TAKE 1/2 TAB ORALLY ON THURSDAY AND THURSDAY, 1 TABLET DAILY ALL OTHER DAYS OR PER COUMADIN CLINIC 90 tablet 3 03/15/2025 03/22/2025 Discontinued (Therapy completed) Start: 08-01-2024 warfarin (Coum britta) 3 MG tablet Indications: Chronic deep vein thrombosis (DVT) of femoral vein of left lower extremity (HCC) TAKE 1/2 TAB ORALLY ON THURSDAY AND THURSDAY, 1 TABLET DAILY ALL OTHER DAYS OR PER COUMADIN CLINIC 78 tablet 1 08/01/2024 Active Start: 11-09-2023 Start: 11-22-2021 End: 12-15-2022 Warfarin (Jantoven) 3 [...] 1 mg Tab let Discontinued 2 MG 5 TIMES PER WEEK February 10, 2018 [...] Drug Class(es) Dates Sig (Normalized) Sig (Original) amoxicillin 875 mg / clavulanate 125 mg [...] 2 tablets by mouth once daily Vitamins A,C,E-Pskq-Gvsmdv (Preservision Areds) 7,160 unit- 113 mg-100 unit [...] Azole Antifungal, Corticosteroid Start: 04-29-2017 End: 05-08-2021 Clotrimazole-Beta methasone (Lotrisone) 1-0.05 % Cream Discontinued 1 APPLIC [...] 08, 2021 10:21am take 1 capsule by [facility] every twelve hours Gabapentin 100 MG 1 [...] Orally Once a day Active Multivitamin Tablet (13 sources) Start: 12-13-2022 End: 11-09-2023 take 1 tablet by mouth once daily Multivitamin Tablet Discontinued 1 TAB PO Daily December 13, 2022 12:00am November 09, 2023 10:07am Start: 12-13-2022 End: 11-09-2023 take 1 tablet by mouth once daily Multivitamin Tablet Discontinued 1 TAB PO Daily December 12, 2022 11:00pm November 09, 2023 9:07am nystatin [id number] unt/ml topical cream (20 sources) Polyene Antifungal [...] 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: [Hallux valgus (acquired), right foot] Onset: 0 Resolved: 4 09-08-2023 Chronic Anxiety disorders (20 sources) Anxiety disorder; 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: [...] Resolved: 4 04-21-2023 Chronic E Codes: Fall (19 sources) Fall; 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: [Unspecified fall, initial encounter] [...] pattern, unspecified headache type] 10-25-2024 Episodic Hemorrhoids (16 sources) Internal hemorrhoids; 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: [Other hemorrhoids] 06-29-2024 Episodic Immunizations and screening for infectious disease (2 sources) Needs influenza immunization; 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: [Encounter for immunization] 06-22-2024 Episodic Malaise and fatigue (20 sources) Asthenia; 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: [Weakness] 11-22-2021 Episodic Menopausal disorders (2 sources) Atrophic vaginitis; 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: [Postmenopausal atrophic vaginitis] 06-22-2024 Chronic Mycoses (3 sources) Onychomycosis; 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: [Tinea unguium] 08-01-2024 Episodic [...] aftercare (20 sources) Drug therapy finding; 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: [residential (current) use of 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s] Episodic Other aftercare (20 sources) Encounter for therapeutic drug level monitoring; 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: [Medication monitoring encounter Z51.81] Onset: 1 Resolved: 2 Episodic Other aftercare (6 sources) Surgical follow-up; 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: [Encounter for follow-up examination after completed treatment for conditions other than malignant neoplasm] 03-07-2025 Episodic Other connective tissue disease (20 sources) Swelling of upper limb; 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: [Other specified soft tissue disorders] 08-06-2019 Episodic Other connective tissue disease (3 sources) Pain in both feet; 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: [Pain in right foot] 08-01-2024 Episodic Other connective tissue disease (8 sources) Pain in right foot; 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: [Pain in right foot] 02-16-2025 Episodic Other connective tissue disease (4 sources) Swelling of right upper limb; 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: [Other specified soft tissue disorders] 08-06-2019 Episodic Other diseases of bladder and urethra (20 sources) Bladder muscle dysfunction - overactive; 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: [Overactive bladder] Chronic Other diseases of bladder and urethra (20 sources) Overactive bladder; 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: [Overactive bladder] Onset: 8 06-08-2023 Chronic Other fractures (19 sources) Closed fracture sacrum; 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: [Unspecified fracture [...] Onset: 5 05-01-2018 Episodic Other skin disorders (5 sources) Callosity; 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: [Corns and callosities] 08-01-2024 [...] cervical region] Onset: 7 Resolved: 06-19-2017 Chronic Sprains and strains (20 sources) Sprain of wrist; 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: [Unspecified sprain of left wrist, initial encounter] 01-03-2021 Episodic Superficial injury; contusion (20 sources) Contusion of shoulder region; 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: [Contusion of left shoulder, initial encounter] 01-03-2021 Episodic Unclassified (2 sources) Acute pain of left knee 02-13-2025 Urinary tract infections (19 sources) Acute urinary tract infection; 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: [Urinary tract infection, site not specified] 02-17-2024 Episodic Past or Other Problems Problem Classification Problem Date Documented Da te Episodic/Chronic Abdominal pain (20 sources) Abdominal pain; 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: [Unspecified abdominal pain] Onset: 12-03-2023 Resolved: 02-16-2024 11-22-2021 Episodic Acquired foot deformities (20 sources) Acquired hammer [...] lymphadenopathy; 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: [Localized enlarged lymph nodes] Onset: 07-19-2023 Resolved: 06-22-2024 09-08-2023 Episodic Mood disorders (20 sources) Mood disorders Onset: 01-09-2025 01-09-2025 Nutritional deficiencies (20 sources) Vitamin D deficiency; 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: [Vitamin D deficiency, unspecified] Onset: 06-15-2015 Resolved: 03-09-2024 06-08-2023 Chronic Other aftercare (20 sources) Long-term current use of insulin; 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: [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 (current) use of insulin] Onset: 10-24-2016 06-08-2023 Episodic Other aftercare (20 sources) Long-term current use of 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; 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: [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 (current) use of 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s] Onset: 04-13-2018 06-08-2023 Episodic Other aftercare (20 sources) Patient encounter status; 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: [Encounter for therapeutic drug level monitoring] Onset: 09-08-2023 09-08-2023 Episodic Other circulatory disease (20 sources) Vasculitis; 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: [...] diseases of veins and lymphatics (20 sources) Vascular insufficiency; 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: [Venous insufficiency (chronic) [...] devices] Onset: 06-08-2023 Resolved: 09-08-2023 09-08-2023 Chronic Spondylosis; intervertebral disc disorders; other back problems (20 sources) Spinal stenosis; 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: [Spinal stenosis, site unspecified] Onset: 10-23-2015 12-14-2019 Episodic Results Test Name Value Interpretation Reference Range Facility No Panel InformationOrdered By: Tita Roberts on 03-13-2025 Bedside INR (LAB) 1.6 [facility] No Panel InformationOrdered By: Tita Roberts on 03-09-2025 Bedside INR (LAB) 1.4 Critically low [facility] XR Foot - right 3 [facility] Result: Three views of the right foot: AP, MO, LAT were performed today in the office. Radiographs were read by myself and demonstrate: No evidence of acute fracture or dislocation. Prior 1st MPJ arthrodesis with removal of bone to the medial proximal phalanx and correction of hallux malleux and IPJ deformity right hallux. Hammertoes to the lesser digits. [facility] Radiology Study observation (narrative) [facility] No Panel InformationOrdered By: Tita Roberts on 02-22-2025 Bedside INR (LAB) 3.8 [facility] XR Foot - right 3 [facility] Result: Three views of the right foot: AP, MO, LAT were performed today in the office. Radiographs were read by myself and demonstrate: No evidence of acute fracture or dislocation. 1st MPJ arthrodess right with enlarged distal medial proximal phalanx and lateral deviation of the hallux at the IPJ. [facility] Radiology Study observation (narrative) [facility] XR KNEE 3 VIEWS LEFTon 02-13 XR KNEE 3 VIEWS LEFT XR KNEE 3 VIEWS LEF T Reason for exam: Increasing left knee pain, no injury Views: 3 Findings: The alignment is normal. No fracture, dislocation or other acute pathology is demonstrated. There is degenerative joint space narrowing of the medial compartment, lateral compartment and patellofemoral joint compartment along with marginal spurring and sclerosis. No soft tissue abnormalities are seen. Impression: Tricompartmental osteoarthritis. Dictated on: 02/13/2025 8:57 AM This report has been electronically signed and approved by the interpreting Radiologist. Normal Not Available XR Knee - left 3 [facility] XR KNEE 3 VIEWS LEFT Reason for exam: Increasing left knee pain, no injury Views: 3 Findings: The alignment is normal. No fracture, dislocation or other acute pathology is demonstrated. There is degenerative joint space narrowing of the medial compartment, lateral compartment and patellofemoral joint compartment along with marginal spurring and sclerosis. No soft tissue abnormalities are seen. Impression: Tricompartmental osteoarthritis. Dictated on: 02/13/2025 8:57 AM This report has been electronically signed and approved by the interpreting Radiologist. IMAGING Edmond Morel MD - 02/13/2025 XR KNEE 3 VIEWS LEFT Reason for exam: Increasing left knee pain, no injury Views: 3 Findings: The alignment is normal. No fracture, dislocation or other acute pathology is demonstrated. There is degenerative joint space narrowing of the medial compartment, lateral compartment and patellofemoral joint compartment along with marginal spurring and sclerosis. No soft tissue abnormalities are seen. Impression: Tricompartmental osteoarthritis. Dictated on: 02/13/2025 8:57 AM This report has been electronically signed and approved by the interpreting Radiologist. [facility] Radiology Study observation (narrative) [facility] XR Knee - left 3 ViewsOrdere d By: Edmond Morel on 02-13-2025 [facility] Work Phone: No Panel InformationOrdered By: Kiersten Qureshi on 02-09-2025 Bedside INR (LAB) 3.2 [facility] No Panel Informationon 02-01 Bedside INR (LAB) 4.0 [facility] ALL CBC WITH AUTO DIFFon BASOPHILS ABSOLUTE AUTO 0 [facility] Basophils/100 WBC (Bld) 0.6 % 0.2 - 2.0 % [facility] Eosinophils/100 WBC (Bld) 2.6 % 0.9 - 7.0 % [facility] Erythrocyte distribution width (RBC) [Ratio] 12.3 % 11.0 - 15.0 % [facility] Hematocrit (Bld) [Volume fraction] 37.5 % 36.0 - 48.0 % [facility] Hemoglobin (Bld) [Mass/Vol] 12.9 g/dL 12.0 - 16.0 g/dL [facility] IMMATURE GRANULOCYTES ABS AUTO 0.01 [facility] Immature granulocytes/100 WBC (Bld) 0.2 % 0.0 - 0.5 % [facility] Center Interpretation and review of laboratory results Abnormal [facility] LYMPHOCYTES ABSOLUTE AUTO 1.2 [facility] Lymphocytes/100 WBC (Bld) 24 % 20.5 - 60.0 % [facility] MCH (RBC) [Entitic mass] 33 pg 26.7 - 34.0 pg [facility] MCHC (RBC) [Mass/Vol] 34.4 g/dL 29.9 - 35.2 g/dL [facility] MCV (RBC) [Entitic vol] 95.9 fL 81.0 - 99.0 fL [facility] MONOCYTES ABSOLUTE AUTO 0.4 [facility] Monocytes/100 WBC (Bld) 8.3 % 1.7 - 12.0 % [facility] NEUTROPHILS ABSOLUTE AUTO 3.3 [facility] Neutrophils/100 WBC (Bld) 64.3 % 43.0 - 75.0 % [facility] Platelet mean volume (Bld) [Entitic vol] 10.8 fL 9.5 - 13.5 fL [facility] TBH EO # 0.1 [facility] PLT 223 [facility] RBC 3.91 Low [facility] WBC 5.1 [facility] ALL BASIC METABOLIC PANELon 01-05-2025 Anion gap [Moles/Vol] 12.2 mmol/L [facility] Calcium [Mass/Vol] 8.9 mg/dL 8.5 - 10. 1 mg/dL [facility] Chloride [Moles/Vol] 105 mmol/L 98 - 10 7 mmol/L [facility] CO2 [Moles/Vol] 27 mmol/L 21.0 - 32.0 mmol/L [facility] Creatinine [Mass/Vol] 1.01 mg/dL 0.55 - 1.02 mg/dL [facility] GFR/1.73 sq M.predicted CKD-EPI (S/P/Bld) [Vol rate/Area] >60 >=60 mL/min/1.7 3m 2 [facility] Glucose [Mass/Vol] 143 mg/dL High 74 - 106 mg/dL [facility] Interpretation and review of laboratory results Abnormal [facility] Potassium [Moles/Vol] 4.2 mmol/L 3.5 - 5.1 mmol/L [facility] Sodium [Moles/Vol] 140 mmol/L 136 - 145 mmol/L [facility] EGFR-NON AF TOGOLESE 54 Low >=60 mL/min/1.7 3m 2 [facility] Urea nitrogen [Mass/Vol] 27 mg/dL High 7.0 - 18.0 mg/dL [facility] Urea nitrogen/Creatinine [Mass ratio] 26.7 mg/mg [facility] Healthcare [facility] No Panel Informationon 01-04 Bedside INR (LAB) 2.7 [facility] MM diagnostic mammo BI w/CAD on 12-07-2024 MM diagnostic mammo BI w/CAD [facility] [address] [place] [address] Mammography Report Signed Patient: Nicol Frances MR#: [id number] 94 : 1950 Acct:[id number] Age/Sex: 74 / F Adm Date: 12/07/24 Loc: [place] Room: Type: [facility] Attending Dr: Rdaha Way DO Ordering Provider: Radha Way DO Date of Service: 12/07/24 Procedure(s): MM diagnostic mammo BI w/CAD Accession Number(s): ([id number]) MM/MM diagnostic mammo BI w/CAD: Yrly mamms w/Lt. axillary US Copies to: DO Krisotpher Carvalho DO CLINICAL DATA: Follow-up for lymph [...] Leon Jr., D.O.12/07/2024 9:30 AM Dictation Location: [facility] Dictated By: Noe De Leon Jr, DO 12/07/24 0922 Signed By: 12/07/24 0930 Normal [facility] Mammography reportOrdered By : Noe De Leon on 12-07-2024 Diagnostic imaging study [facility] [address] [place] [address] Mammography Report Signed Patient: Nicol Frances MR#: [id number] : 1950 Acct:[id number] Age/Sex: 74 / F Adm Date: 5 Loc: [place] Room: Type: [facility] Attending Dr: Radha Way DO Ordering Provider: Radha Way DO Date of Service: 12/07/24 Procedure(s): MM diagnostic mammo BI w/CAD Accession Number(s): ([id number]) MM/MM diagnostic mammo BI w/CAD: Yrly mamms [...] Leon Jr., D.O.12/07/2024 9:30 AM Dictation Location: [id number] Dictated By: Noe De Leon Jr, DO 12/07/2422 Signed By: 12/07/2430 [facility] No Panel Informationon 11-30 Bedside INR (LAB) 2.[address] [facility] [address] ABDOMEN PELVIS W IV CONTR [...] Panel Informationon 11-02 Bedside INR (LAB) 2.[address] [facility] [address] HEAD WO IV CONTRASTon CT [...] Panel Informationon 10-05 Bedside INR (LAB) 2.5 [facility] No Panel Informationon 09-09 Bedside INR (LAB) 2.3 [facility] No Panel Informationon 08-03 Bedside INR (LAB) 2.0 [facility] No Panel Informationon 07-04 Bedside INR (LAB) 2.2 [facility] Comprehensive metabolic pane jimbo 06-18-2024 Albumin [Mass/Vol] 4.1 g/dL 3.8 - 4.8 g/dL [facility] ALP [Catalytic activity/Vol] 53 U/L [facility] ALT [Catalytic activity/Vol] 12 U/L [facility] AST [Catalytic activity/Vol] 16 U/L [facility] Bilirubin [Mass/Vol] 0.2 mg/dL 0.0 - 1 .2 mg/dL [facility] Calcium [Mass/Vol] 9.6 mg/dL 8.7 - 10. 3 mg/dL [facility] Chloride [Moles/Vol] 104 mmol/L 96 - 10 6 mmol/L [facility] CO2 [Moles/Vol] 22 mmol/L 20 - 29 mmol/L [facility] Creatinine [Mass/Vol] 0.93 mg/dL 0.57 - 1.00 mg/dL [facility] GFR/1.73 sq M.predicted among non-blacks MDRD (S/P/Bld) [Vol rate/Area] 65 mL/min/{1.73_m2} 59 - PINF mL/min/1.7 3 [facility] Globulin (S) [Mass/Vol] 2.7 g/dL 1.5 - 4.5 g/dL [facility] Glucose [Mass/Vol] 126 mg/dL High 70 - 99 mg/dL [facility] Potassium [Moles/Vol] 4.8 mmol/L 3.5 - 5.2 mmol/L [facility] Protein [Mass/Vol] 6.8 g/dL 6.0 - 8.5 g/dL [facility] Sodium [Moles/Vol] 139 mmol/L 134 - 144 mmol/L [facility] Urea nitrogen [Mass/Vol] 18 mg/dL 8 - 27 mg/dL [facility] Urea nitrogen/Creatinine [Mass ratio] 19 mg/mg 12 - 28 [facility] Hemoglobin a1c with eagon Average glucose Estimated from glycated hemoglobin (Bld) [Mass/Vol] 163 mg/dL [facility] HbA1c (Bld) [Mass fraction] 7.3 % High 4.8 - 5.6 % [facility] Comment on above: Prediabetes: 5.7 - 6 .4 Diabetes: >6.4 Glycemic control for adults with diabetes: <7.0 Lipid 1996 panelon Cholesterol [Mass/Vol] 140 mg/dL 100 - 199 mg/dL [facility] Cholesterol in HDL [Mass/Vol] 45 mg/dL 39 - PINF mg/dL [facility] Cholesterol in LDL [Mass/Vol] 70 mg/dL 0 - 99 mg/dL [facility] Cholesterol in VLDL [Mass/Vol] 25 mg/dL 5 - 40 mg/dL [facility] Triglyceride [Mass/Vol] 143 mg/dL 0 - 149 mg/dL [facility] No Panel Informationon 06-18 Interpretation and review of laboratory results Abnormal [facility] Performed at: - [address] [id number] Java Development Manager: Juan Dunbar PhD, Phone: [phone] [facility] Specimen Status Reporton Clindamycin Disk diffusion (KB) [[facility]] Comment [facility] Comment on above: Elena Yan CMP14 D efault Elena Yan CMP14 Default A hand-written panel/profile was received from your office. In accordance with the [facility] Ambiguous Test Code Policy dated February 2003, we have completed your order by using the closest currently or formerly recognized AMA panel. We have assigned Comprehensive Metabolic Panel (14), Test Code #002571 to this request. If this is not the testing you wished to receive on this specimen, please contact the [facility] Client Inquiry/Technical Services Department to clarify the test order. We appreciate your business. Ambtan Abbrev LP Default Elena Abbrev LP Default A hand-written panel/profile was received from your office. In accordance with the [facility] Ambiguous Test Code Policy dated February 2003, we have completed your order by using the closest currently or formerly recognized AMA panel. We have assigned Lipid Panel, Test Code #716703 to this request. If this is not the testing you wished to receive on this specimen, please contact the [employer] Client Inquiry/Technical Services Department to clarify the test order. We appreciate your business. No Panel Informationon 06-06 Bedside INR (LAB) 2.1 [facility] No Panel Informationon 05-09 Bedside INR (LAB) 2.5 [facility] No Panel Informationon 04-14 Bedside INR (LAB) 2.5 [facility] No Panel Informationon 03-14 Bedside INR (LAB) 2.2 [facility] No Panel Informationon 02-16 Bedside INR (LAB) 2.1 [facility] Activated partial thrombopla stin time (aPTT) in platelet poor plasma by coagulation aOrdered By: Johnny Keen on 02-09-2024 aPTT Coag (PPP) [Time] 37.1 s High 25.1-36.5 [facility] Comment on above: A hematocrit value g reater than 55% may lead to inaccurate results in coagulation testing. Patients having hematocrit values >55% require a special collection tube for coagulation studies. Please contact the laboratory at [phone] for redraw instructions. Automated basophil %Ordered By: Johnny Keen on 02-09-2024 Basophils/100 WBC (Bld) 0.6 % Normal . [facility] Comment on above: Performed By: #### P T, PTT, BMP, CBC #### [address] Automated basophil countOrde red By: Johnny Keen on 02-09-2024 Basophils (Bld) [#/Vol] 0.0 10*3/uL Normal 0.0-0.2 [facility] Comment on above: Result Comment: PERF ORMED BY: [place] [address] PATHOLOGIST [employer]STRU[employer] C[employer]FT LABORER GLENYS BARRON M.D. Performed By: #### P T, PTT, BMP, CBC #### [address] Automated blood monocyte cou ntOrdered By: Johnny Keen on 02-09-2024 Monocytes (Bld) [#/Vol] 0.5 10*3/uL Normal 0.0-0.8 [facility] Comment on above: Performed By: #### P T, PTT, BMP, CBC #### [facility] [address] [place] [address] Automated eosinophil %Ordere d By: Johnny Keen on 02-09-2024 Eosinophils/100 WBC (Bld) 0.4 % Normal . [facility] Comment on above: Performed By: #### P T, PTT, BMP, CBC #### [address] Automated eosinophil countOr dered By: Johnny Keen on 02-09-2024 Eosinophils (Bld) [#/Vol] 0.0 10*3/uL Normal 0.0-0.45 [facility] Comment on above: Performed By: #### P T, PTT, BMP, CBC #### [address] Automated epithelial cells c ount in urine sediment (number/area)Ordered By: Johnny Keen on 02-09-2024 Epithelial cells Auto (Urine sed) [#/Area] 10-19 [HPF] High 0-2 [facility] Automated monocyte %Ordered By: Johnny Keen on 02-09-2024 Monocytes/100 WBC (Bld) 8.0 % Normal . [facility] Comment on above: Performed By: #### P T, PTT, BMP, CBC #### [facility] [address] [place] [address] Automated neutrophil %Ordere d By: Johnny Keen on 02-09-2024 Neutrophils/100 WBC (Bld) 73.4 % Normal . [facility] Comment on above: Performed By: #### P T, PTT, BMP, CBC #### [facility] [address] [place] [address] Bacteria [Presence] in Urine by AutomatedOrdered By: Johnny Keen on 02-09-2024 Bacteria Auto Ql (U) 1+ [HPF] High None Seen [facility] Basic Metabolic Panelon 01-22 Creatinine Clr Calc Pharmacy 48.37 Normal [facility] Comment on above: Result Comment: PERF ORMED BY: [place] [address] PATHOLOGIST CONSTRU[employer] CRAFT LABORER GLENYS BARRON M.D. Performed By: #### P T, PTT, BMP, CBC #### [address] GFR/1.73 sq M.predicted MDRD (S/P/Bld) [Vol rate/Area] 59.856 mL/min/{1.73_m2} Normal [facility] Comment on above: Performed By: #### P T, PTT, BMP, CBC #### [address] Bilirubin Test strip Ql (U)O rdered By: Johnny Keen on 02-09-2024 Bilirubin Ql (U) Negative Negative [facility] CT head/brain wo conon 02-08 CT head/brain wo [facility] [address] [place] [address] CT Scan Report Signed Patient: Nicol Frances MR#: [id number] 94 : 1950 Acct:[id number] Age/Sex: 73 / F ADM Date: 02/09/24 Loc: ER Room: Type: [facility] ER Attending Dr: Copies to: Johnny Keen DO Ordering Provider: Johnny Keen DO Date of Service: 02/09/24 CT/CT cervical spine wo con: fall ([id number]) CT/CT head/brain wo con: fall CLINICAL DATA: [...] Denise Wallace M.D.02/09/2024 11:26 AM Dictation Location: [place] [address] Transcribed By: [facility] 02/09/24 1126 Dictated By: Denise Wallace MD 02/09/24 1114 Signed By: 02/09/24 1126 Normal [facility] CT lumbar spine wo oliviaon CT lumbar spine wo con [facility] [address] [place] [address] [address] [address] Scan Report Signed Patient: Nicol Frances MR#: [id number] 94 : 1950 Acct:[id number] Age/Sex: 73 / F ADM Date: 02/09/24 Loc: ER Room: Type: [facility] ER Attending Dr: Copies to: Johnny Keen [...] Denise Wallace M.D.02/09/2024 11:39 AM Dictation Location: [place] [address] Transcribed By: [facility] 02/09/24 1139 Dictated By: Denise Wallace MD 02/09/24 1126 Signed By: 02/09/24 1139 Normal [facility] Calcium [Mass/volume] in Ser um or PlasmaOrdered By: Johnny Keen on 02-09-2024 Calcium [Mass/Vol] 8.8 mg/dL Normal 8.6-10.3 [facility] Comment on above: Performed By: #### P T, PTT, BMP, CBC #### [facility] [address] Carbon dioxide, total [Moles /volume] in Serum or PlasmaOrdered By: Johnny Keen on 02-09-2024 CO2 [Moles/Vol] 22.0 mmol/L Normal 21.0-31.0 [facility] Comment on above: Performed By: #### P T, PTT, BMP, CBC #### [place] [address] [place] Casts typing in urine sedime nt by light microscopyOrdered By: Johnny Keen on 02-09-2024 Casts LM Nom (Urine sed) None seen [LPF] None Seen [facility] Chloride [Moles/volume] in S remi or PlasmaOrdered By: Johnny Keen on 02-09-2024 Chloride [Moles/Vol] 103 mmol/L Normal 98-107 [facility] Comment on above: Performed By: #### P T, PTT, BMP, CBC #### [address] Color of Urine by AutoOrdere d By: Johnny Keen on 02-09-2024 Color (U) Light-yellow Normal Yellow [facility] Comment on above: Order Comment: Name Collection Type:: Clean-Voided Midstream Performed By: #### C UU, ADDONUAPLUS #### [address] Complete Blood Count Auto Di ffon 02-09-2024 Mean Corpuscular HGB Conc 34.2 g/dL Normal 32.0-35.0 [facility] Comment on above: Performed By: #### P T, PTT, BMP, CBC #### [place] [address] [place] Monocytes/100 WBC (Bld) 17.76 % Normal 0.00-20.00 [facility] Comment on above: Performed By: #### P T, PTT, BMP, CBC #### [facility] [address] [place] [address] [place] NRBC% 0.0 /100{WBC} Normal 0-0.5 [facility] Comment on above: Performed By: #### P T, PTT, BMP, CBC #### [address] Creatinine [Mass/volume] in Serum or PlasmaOrdered By: Johnny Keen on 02-09-2024 Creatinine [Mass/Vol] 1.00 mg/dL Normal 0.60-1.20 [facility] Comment on above: Performed By: #### P T, PTT, BMP, CBC #### [facility] [address] [place] [address] [place] Dipstick and Microscopicon 0 02-09-2024 Bacteria,Urine 1+ High None Seen [facility] Comment on above: Order Comment: Name Collection Type:: Clean-Voided Midstream Performed By: #### C UU, ADDONUAPLUS #### [place] [address] [place] Bilirubin,Urine Negative Normal Negative [facility] Comment on above: Order Comment: Name Collection Type:: Clean-Voided Midstream Performed By: #### C UU, ADDONUAPLUS #### [place] [address] [place] Glucose Ql (U) Normal Normal Normal [facility] Comment on above: Order Comment: Name Collection Type:: Clean-Voided Midstream Performed By: #### C UU, ADDONUAPLUS #### [place] [address] [place] Hyaline Casts,Urine None Seen Normal 0-8 [facility] Comment on above: Order Comment: Name Collection Type:: Clean-Voided Midstream Performed By: #### C UU, ADDONUAPLUS #### [place] [address] [place] Nitrite,Urine Negative Normal Negative [facility] Comment on above: Order Comment: Name Collection Type:: Clean-Voided Midstream Performed By: #### C UU, ADDONUAPLUS #### [place] [address] [place] Occult Blood,Urine 1+ High Negative [facility] Comment on above: Order Comment: Name Collection Type:: Clean-Voided Midstream Result Comment: PERF ORMED BY: [place] [address] PATHOLOGIST CONSTRUCTION CRAFT LABORER GLENYS BARRON M.D. Performed By: #### C UU, ADDONUAPLUS #### [address] Other Casts,Urine None Seen Normal None Seen [facility] Comment on above: Order Comment: Name Collection Type:: Clean-Voided Midstream Result Comment: PERF ORMED BY: [place] [address] PATHOLOGIST CONSTRUCTION CRAFT LABORER GLENYS BARRON M.D. Performed By: #### C UU, ADDONUAPLUS #### [address] Protein,Urine Negative Normal Negative [facility] Comment on above: Order Comment: Name Collection Type:: Clean-Voided Midstream Performed By: #### C UU, ADDONUAPLUS #### [address] RBC,Urine None Seen Normal 0-4 [facility] Comment on above: Order Comment: Name Collection Type:: Clean-Voided Midstream Performed By: #### C UU, ADDONUAPLUS #### [address] Specificy [place],Urine 1.014 Normal 1.001-1.03 0 [facility] Comment on above: Order Comment: Name Collection Type:: Clean-Voided Midstream Performed By: #### C UU, ADDONUAPLUS #### [address] Squamous Epithelial Cell,Urine 10-19 High 0-2 [facility] Comment on above: Order Comment: Name Collection Type:: Clean-Voided Midstream Performed By: #### C UU, ADDONUAPLUS #### [address] Urobilinogen,Urine Normal Normal Normal [facility] Comment on above: Order Comment: Name Collection Type:: Clean-Voided Midstream Performed By: #### C UU, ADDONUAPLUS #### [place] [address] [place] WBC,Urine 20-49 High 0-4 [facility] Comment on above: Order Comment: Name Collection Type:: Clean-Voided Midstream Performed By: #### C UU, ADDEDGARDUAJASMEET #### [facility] [address] [place] [address] ECG 12 lead ECGon 02-09-2024 ECG 12 lead ECG [facility] [address] [place] [address] Electrocardiograph Report Signed Patient: Nicol Frances MR#: [id number] [birth year] : 1950 Acct:[id number] Age/Sex: 73 / F ADM Date: 02/09/24 Loc: ER Room: Type: [facility] ER Attending Dr: Ordering Provider: Johnny Keen [...] was found Confirmed by Johnny Keen DO ([id number]) on 02/09/2024 3:32:04 PM Referred By: Electronically Signed By:Johnny Keen DO Transcribed By: MUS Signed By Johnny Keen DO 4 1532 Normal [facility] Erythrocyte distribution wid th [Ratio] by Automated countOrdered By: Johnny Keen on 02-09-2024 Erythrocyte distribution width (RBC) [Ratio] 14.1 % Normal 11.9-15.3 [facility] Comment on above: Performed By: #### P T, PTT, BMP, CBC #### [facility] [address] [place] [address] Erythrocytes [#/area] in Uri ne sediment by Automated countOrdered By: Johnny Keen on 02-09-2024 RBC Auto (Urine sed) [#/Area] None seen [HPF] 0-4 [facility] Erythrocytes [#/volume] in B lood by Automated countOrdered By: Johnny Keen on 02-09-2024 RBC (Bld) [#/Vol] 3.73 10*6/uL Normal 3.60-5.00 [facility] Comment on above: Performed By: #### P T, PTT, BMP, CBC #### [facility] [address] Glucose [Mass/volume] in Ser um or PlasmaOrdered By: Johnny Keen on 02-09-2024 Glucose [Mass/Vol] 218 mg/dL High 70-100 [facility] Comment on above: ADA recommended refe rence rangeRandom Glucose Reference Range is dependent on time and content of last meal. Glucose of more than 200 mg/dL in a nonstressed, ambulatory subject supports the diagnosis of Diabetes Mellitus. Result Comment: [place] om Glucose Reference Range is dependent on time and content of last meal. Glucose of more than 200 mg/dL in a nonstressed, ambulatory subject supports the diagnosis of Diabetes Mellitus. ADA recommended reference range Performed By: #### P T, PTT, BMP, CBC #### [facility] [address] Glucose [Mass/volume] in Uri ne by Test stripOrdered By: Johnny Keen on 02-09-2024 Glucose Test strip (U) [Mass/Vol] Normal mg/dL Normal [facility] Hematocrit [Volume Fraction] of Blood by Automated countOrdered By: Johnny Keen on 02-09-2024 Hematocrit (Bld) [Volume fraction] 36.4 % Normal 34.0-46.4 [facility] Comment on above: Performed By: #### P T, PTT, BMP, CBC #### [facility] [address] [place] [id number] [facility] Hemoglobin Test strip Ql (U) Ordered By: Johnny Keen on 02-09-2024 Hemoglobin Ql (U) 1+ High Negative [facility] Hemoglobin [Mass/volume] in BloodOrdered By: Johnny Keen on 02-09-2024 Hemoglobin (Bld) [Mass/Vol] 12.4 g/dL Normal 11.8-15.4 [facility] Comment on above: Performed By: #### P T, PTT, BMP, CBC #### [facility] [address] INR in Platelet poor plasma by Coagulation assayOrdered By: Johnny Keen on 02-09-2024 INR Coag (PPP) [Relative time] 1.8 {INR} Normal [facility] Comment on above: INR Therapeutic Rang [...] By: #### P T, PTT, BMP, CBC ####[facility] [address] Ketones [Presence] in Urine by Test stripOrdered By: Johnny Keen on 02-09-2024 Ketones Ql (U) Negative Normal Negative [facility] Comment on above: Order Comment: Name Collection Type:: Clean-Voided Midstream Performed By: #### C UU, ADDONUAPLUS #### [facility] [address] Laboratory - UrinalysisOrder ed By: Johnny Keen on 02-09-2024 Hyaline casts LM Ql (Urine sed) None seen [LPF] 0-8 [facility] Leukocyte esterase [Presence ] in Urine by Test stripOrdered By: Johnny Keen on 02-09-2024 Leukocyte esterase Test strip Ql (U) 4+ High Negative [facility] Comment on above: Order Comment: Name Collection Type:: Clean-Voided Midstream Performed By: #### C UU, ADDONUAPLUS #### [facility] [address] [place] [address] Leukocytes [#/area] in Urine sediment by Automated countOrdered By: Johnny Keen on 02-09-2024 WBC Auto (Urine sed) [#/Area] 20-49 [HPF] High 0-4 [facility] Leukocytes [#/volume] correc darío for nucleated erythrocytes in Blood by Automated counOrdered By: Johnny Keen on 02-09-2024 WBC corrected for nucl RBC Auto (Bld) [#/Vol] 6.0 10*3/uL 3.8-11.6 [facility] Leukocytes [#/volume] in Blo od by Automated countOrdered By: Johnny Keen on 02-09-2024 WBC (Bld) [#/Vol] 6.0 10*3/uL Normal 3.8-11.6 [facility] Comment on above: Performed By: #### P T, PTT, BMP, CBC #### [facility] [address] [place] [address] Lymphocytes [#/volume] in Bl ood by Automated countOrdered By: Johnny Keen on 02-09-2024 Lymphocytes (Bld) [#/Vol] 1.1 10*3/uL Normal 1.00-4.8 [facility] Comment on above: Performed By: #### P T, PTT, BMP, CBC #### [facility] [address] [place] [address] [place] Lymphocytes/100 leukocytes i n Blood by Automated countOrdered By: Johnny Keen on 02-09-2024 Lymphocytes/100 WBC (Bld) 17.6 % Normal . [facility] Comment on above: Performed By: #### P T, PTT, BMP, CBC #### [place] [address] [place] MCH [Entitic mass] by Automa darío countOrdered By: Johnny Keen on 02-09-2024 MCH (RBC) [Entitic mass] 33.4 pg Normal 24.7-34.3 [facility] Comment on above: Performed By: #### P T, PTT, BMP, CBC #### [facility] [address] [place] [address] MCHC Auto (RBC) [Mass/Vol]Or dered By: Johnny Keen on 02-09-2024 MCHC (RBC) [Mass/Vol] 34.2 g/dL 32.0-35.0 [facility] MCV [Entitic volume] by Auto mated countOrdered By: Johnny Keen on 02-09-2024 MCV (RBC) [Entitic vol] 97.6 fL Normal 80-100 [facility] Comment on above: Performed By: #### P T, PTT, BMP, CBC #### [facility] [address] [place] [address] Monocyte distribution width [Entitic volume] in Blood by AutomatedOrdered By: Johnny Kene on 02-09-2024 Monocyte distribution width Auto (Bld) [Entitic vol] 17.76 % 0.00-20.00 [facility] Neutrophils [#/volume] in Bl ood by Automated countOrdered By: Johnny Keen on 02-09-2024 Neutrophils (Bld) [#/Vol] 4.4 10*3/uL Normal 1.8-7.7 [facility] Comment on above: Performed By: #### P T, PTT, BMP, CBC #### [facility] [address] [place] [address] Nitrite Test strip Ql (U)Ord ered By: Johnny Keen on 02-09-2024 Nitrite Ql (U) Negative Negative [facility] No Panel InformationOrdered By: Johnny Keen on 02-09-2024 Estimated GFR (CKD-EPI) 59.856 mL/Min [facility] Creatinine Clearance (Chem 48.37 [facility] Nucleated erythrocytes [Pres ence] in Blood by Automated countOrdered By: Johnny Keen on 02-09-2024 Nucleated RBC Auto Ql (Bld) 0.0 /100{WBC} 0-0.5 [facility] Partial Thromboplastin Timeo n 02-09-2024 aPTT Coag (Bld) [Time] 37.1 s High 25.1-36.5 [facility] Comment on above: Result Comment: A he matocrit value greater than 55% may lead to inaccurate results in coagulation testing. Patients having hematocrit values >55% require a special collection tube for coagulation studies. Please contact the laboratory at [phone] for redraw instructions. PERFORMED BY: [place] [address] PATHOLOGIST [employer] GLENYS BARRON M.D. Performed By: #### P T, PTT, BMP, CBC ####[facility] [id number] [place], [place] [id number] [facility] Platelet mean volume [Entiti c volume] in Blood by Automated countOrdered By: Johnny Keen on 02-09-2024 Platelet mean volume (Bld) [Entitic vol] 8.4 fL Normal 6.3-10.7 [facility] Comment on above: Performed By: #### P T, PTT, BMP, CBC #### [facility] [address] [place] [address] Platelets [#/volume] in Bloo d by Automated countOrdered By: Johnny Keen on 02-09-2024 Platelets (Bld) [#/Vol] 178 10*3/uL Normal 150-450 [facility] Comment on above: Performed By: #### P T, PTT, BMP, CBC #### [facility] [address] [place] [address] Potassium [Moles/volume] in Serum or PlasmaOrdered By: Johnny Keen on 02-09-2024 Potassium [Moles/Vol] 3.9 mmol/L Normal 3.5-5.1 [facility] Comment on above: Performed By: #### P T, PTT, BMP, CBC #### [address] Protein Test strip (U) [Mass /Vol]Ordered By: Johnny Keen on 02-09-2024 Protein (U) [Mass/Vol] Negative Negative [facility] Prothrombin time (PT)Ordered By: Johnny Keen on 02-09-2024 PT Coag (PPP) [Time] 20.6 s High 9.0-12.9 [facility] Comment on above: A hematocrit value g reater than 55% may lead to inaccurate results in coagulation testing. Patients having hematocrit values >55% require a special collection tube for coagulation studies. Please contact the laboratory at [phone] for redraw instructions. Result Comment: A he matocrit value greater than 55% may lead to inaccurate results in coagulation testing. Patients having hematocrit values >55% require a special collection tube for coagulation studies. Please contact the laboratory at [phone] for redraw instructions. Performed By: #### P T, PTT, BMP, CBC ####[facility] [id number] [place] [id number] [facility] Serum or plasma anion gap de terminationOrdered By: Johnny Keen on 02-09-2024 Anion gap [Moles/Vol] 12.9 mmol/L Normal 6.0-15.0 [facility] Comment on above: Performed By: #### P T, PTT, BMP, CBC #### [facility] [address] Sodium [Moles/volume] in Ser um or PlasmaOrdered By: Johnny Keen on 02-09-2024 Sodium [Moles/Vol] 134 mmol/L Low 136-145 [facility] Comment on above: Performed By: #### P T, PTT, BMP, CBC #### [facility] [address] Specific gravity Test strip (U) [Rel density]Ordered By: Johnny Keen on 02-09-2024 Specific gravity (U) [Rel density] 1.014 1.001-1.03 0 [facility] Urea nitrogen [Mass/volume] in Serum or PlasmaOrdered By: Johnny Keen on 02-09-2024 Urea nitrogen [Mass/Vol] 22 mg/dL Normal 7-25 [facility] Comment on above: Performed By: #### P T, PTT, BMP, CBC #### [facility] [address] [place] [id number] [place] Urine Cultureon 02-09-2024 Bacteria identified Cx Nom (U) >100,000 colonies/ml mixed bacterial skin contaminants 2 Days PERFORMED BY: [place] [address] PATHOLOGIST [employer] GLENYS BARRON M.D. Normal [facility] Comment on above: Performed By: #### C UU, ADDONUAPLUS #### [facility] [address] [place] [address] Urine appearanceOrdered By: Johnny Keen on 02-09-2024 Appearance (U) Cloudy Critically abnormal Clear [facility] Comment on above: Order Comment: Name Collection Type:: Clean-Voided Midstream Performed By: #### C UU, ADDONUAPLUS #### [address] Urine culture routineOrdered By: Johnny Keen on 02-09-2024 Bacteria identified Cx Nom (U) 2 Days [facility] Urobilinogen Test strip (U) [Mass/Vol]Ordered By: Johnny Keen on 02-09-2024 Urobilinogen (U) [Mass/Vol] Normal mg/dL Normal [facility] pH of Urine by Test stripOrd ered By: Johnny Keen on 02-09-2024 pH (U) 6.5 [pH] Normal 5.0-9.0 [facility] Comment on above: Order Comment: Name Collection Type:: Clean-Voided Midstream Performed By: #### C UU, ADDONUAPLUS #### [facility] [address] [place] [address] No Panel Informationon 01-19 Bedside INR (LAB) 2.5 [facility] No Panel Informationon 01-04 Bedside INR (LAB) 2.1 [facility] Capillary blood glucose flakita urement by glucometer (mass/volume)Ordered By: Sandy Clark on 12-28-2023 Glucose [Mass/Vol] 170 mg/dL Normal [facility] Comment on above: Random Glucose Refer ence Range is dependent on time and content of last meal. Glucose of more than 200 mg/dL in a nonstressed, ambulatory subject supports the diagnosis of Diabetes Mellitus. Result Comment: [place] Glucose Reference Range is dependent on time and content of last meal. Glucose of more than 200 mg/dL in a nonstressed, ambulatory subject supports the diagnosis of Diabetes Mellitus. Performed By: #### G LULS #### Point of Care testing , Glucose Poct Glucometerson 0 12-28-2023 Commemt1 Glu2: Cleaned Meter Normal [facility] Comment on above: Result Comment: PERF ORMED BY: [place] [address] PATHOLOGIST [employer] GLENYS BARRON M.D. Performed By: #### G LULS #### Point of Care testing , INR in Platelet poor plasma by Coagulation assayOrdered By: Sandy Clark on 12-28-2023 INR Coag (PPP) [Relative time] 1.0 {INR} Normal [facility] Comment on above: INR Therapeutic Rang [...] heart valves: 3 - 4.5 PERFORMED BY: [place] [address] PATHOLOGIST [employer] GLENYS BARRON M.D. Performed By: #### P T #### [address] Jimbo 12-28-2023 L Specimen: [id number] Received: 12/28/23 Status: JAGDISHT Yvonne Num: [id number] Spec Type: Surgical Subm Dr: Sandy Clark, DO Tissues: A Colon Biopsy (RT COLON) B Colon Biopsy (TRANSV BX) C Colon Biopsy (LT COLON BX) Procedures: HE/6, Gross/Micro L4/3 Age/ Patient Sex Location Account Attending Physician Nicol Frances Bethel 73/F [id number] Sandy Clark DO SPEC NUM: [id number] RECD: 12/28/23 STATUS: TIERRA YVONNE NUM: [id number] ROQUE: 12/28/23 DR: Sandy Clark DO ENTERED: 12/28/23 [facility] DR: SPEC TYPE: Surgical [...] in C1. Clinical history: Ulcerative colitis Specimen: [id number] Received: 12/28/23 Status: TIERRA Moe Num: [id number] Spec Type: Surgical Subm Dr: Sandy Clark DO Tissues: A Colon Biopsy (RT COLON) B Colon Biopsy (TRANSV BX) C Colon Biopsy (LT COLON BX) Procedures: Gross/Micro L4/3 Patient: Nicol Frances Bethel [id number] (Continued) Specimen: [id number] Received: 12/28/23 (Continued) Signed (signature on file) Ac Beaulieu MD 12/29/23 1414 Specimen: [id number] Received: 12/28/23 Status: TIERRA Moe Num: [id number] Spec Type: Surgical Subm Dr: Sandy Clark DO Tissues: A Colon Biopsy (RT COLON) B Colon Biopsy (TRANSV BX) C Colon Biopsy (LT COLON BX) Procedures: Gross/Micro L4/3 Patient: Nicol Frances [id number] (Continued) Specimen: [id number] Received: 12/28/23 (Continued) CPT Codes 80561o8 Specimen: [id number] Received: 12/28/23 Status: TIERRA Moe Num: [id number] Spec Type: Surgical Subm Dr: Sandy Clark DO Tissues: A Colon Biopsy (RT COLON) B Colon Biopsy (TRANSV BX) C Colon Biopsy (LT COLON BX) Procedures: HE/6, Gross/Micro L4/3 Patient: Nicol Frances [id number] (Continued) Signed (signature on file) Ac Beaulieu MD 12/29/23 1414 Normal [facility] No Panel InformationOrdered By: Sandy Clark on 12-28-2023 Bedside Glucose Comment Glu2: cleaned meter [facility] Prothrombin time (PT)Ordered By: Sandy Clark on 12-28-2023 PT Coag (PPP) [Time] 12.1 s Normal 9.0-12.9 [facility] Comment on above: A hematocrit value g reater than 55% may lead to inaccurate results in coagulation testing. Patients having hematocrit values >55% require a special collection tube for coagulation studies. Please contact the laboratory at [phone] for redraw instructions. Result Comment: A he matocrit value greater than 55% may lead to inaccurate results in coagulation testing. Patients having hematocrit values >55% require a special collection tube for coagulation studies. Please contact the laboratory at [phone] for redraw instructions. Performed By: #### P T #### [address] No Panel Informationon 12-13 Bedside INR (LAB) 2.0 [facility] No Panel Informationon 11-08 Bedside INR (LAB) 2.2 [facility] Prothrombin Time INRon 10-05 INR Coag (PPP) [Relative time] 2.6 {INR} [employer] Other Prothrombin Time INR [facility] [employer] Other Prothrombin Time INRon 09-07 INR Coag (PPP) [Relative time] 2.6 {INR} [facility] [employer] Other Prothrombin Time INR [facility] [employer] Other Prothrombin Time INRon 08-11 INR Coag (PPP) [Relative time] 2.4 {INR} [facility] [employer] Other Prothrombin Time INR [facility] [employer] Other Prothrombin Time INRon 07-14 INR Coag (PPP) [Relative time] 2.4 {INR} [facility] [employer] Other Prothrombin Time INR [facility] [employer] Other Prothrombin Time INRon 06-15 INR Coag (PPP) [Relative time] 2.8 {INR} [facility] [employer] Other Prothrombin Time INR [facility] [employer] Other Prothrombin Time INRon 04-30 INR Coag (PPP) [Relative time] 2.6 {INR} [facility] [employer] Other Prothrombin Time INR [facility] [employer] Other Prothrombin Time INRon 04-08 INR Coag (PPP) [Relative time] 3.1 {INR} [facility] [employer] Other Prothrombin Time INR [facility] [employer] Other Prothrombin Time INRon 03-23 INR Coag (PPP) [Relative time] 2.3 {INR} [facility] [employer] Other Prothrombin Time INR [facility] [employer] Other Prothrombin Time INRon 03-11 INR Coag (PPP) [Relative time] 3.2 {INR} [place] [employer] Other Prothrombin Time INR [facility] [employer] Other Prothrombin Time INRon 02-23 INR Coag (PPP) [Relative time] 3.4 {INR} [facility] [employer] Other Prothrombin Time INR [facility] [employer] Other Laboratory - CoagulationOrde red By: Gabriel Castaneda on 12-17-2022 PT Coag (PPP) [Time] 21.0 s 9.0-12.9 [facility] Platelet poor plasma interna tional normalized ratio (INR) by coagulation assay (relatOrdered By: Gabriel Castaneda on 12-17-2022 INR Coag (PPP) [Relative time] 1.8 {INR} [facility] Comment on above: INR Therapeutic Rang [...] 12-15-2022 Glucose [Mass/Vol] 223 mg/dL [facility] Comment on above: Random Glucose Refer ence Range is dependent on time and content of last meal. Glucose of more than 200 mg/dL in a nonstressed, ambulatory subject supports the diagnosis of Diabetes Mellitus. Laboratory - CoagulationOrde red By: Rosalina Shelton on 12-15-2022 PT Coag (PPP) [Time] 15.7 s 9.0-12.9 [facility] No Panel InformationOrdered By: Gabriel Castaneda on 12-15-2022 Bedside Glucose Comment Glu2: cleaned meter [facility] Platelet poor plasma interna tional normalized ratio (INR) by coagulation assay (relatOrdered By: Rosalina Shelton on 12-15-2022 INR Coag (PPP) [Relative time] 1.4 {INR} [facility] Comment on above: INR Therapeutic Rang [...] 12-14-2022 Basophils (Bld) [#/Vol] 0.0 10*3/uL 0.0-0.2 [facility] Basophils/100 WBC Auto (Bld) Ordered By: Rosalina Shelton on 12-14-2022 Basophils/100 WBC (Bld) 1.0 % . [facility] Calcium [Mass/volume] in Ser um or PlasmaOrdered By: Rosalina Shelton on 12-14-2022 Calcium [Mass/Vol] 8.1 mg/dL 8.6-10.3 [facility] Carbon dioxide, total [Moles /volume] in Serum or PlasmaOrdered By: Rosalina Shelton on 12-14-2022 CO2 [Moles/Vol] 24.8 mmol/L 21.0-31.0 [facility] Chloride [Moles/volume] in S remi or PlasmaOrdered By: Rosalina Shelton on 12-14-2022 Chloride [Moles/Vol] 105 mmol/L 98-107 [facility] Creatinine [Mass/volume] in Serum or PlasmaOrdered By: Rosalina Shelton on 12-14-2022 Creatinine [Mass/Vol] 0.98 mg/dL 0.60-1.20 [facility] Eosinophils Auto (Bld) [#/Vo l]Ordered By: Rosalina Shelton on 12-14-2022 Eosinophils (Bld) [#/Vol] 0.1 10*3/uL 0.0-0.45 [facility] Eosinophils/100 WBC Auto (Bl d)Ordered By: Rosalina Shelton on 12-14-2022 Eosinophils/100 WBC (Bld) 2.0 % . [facility] Erythrocyte distribution wid th Auto (RBC) [Ratio]Ordered By: Rosalina Shelton on 12-14-2022 Erythrocyte distribution width (RBC) [Ratio] 14.3 % 11.9-15.3 [facility] Glucose [Mass/volume] in Ser um or PlasmaOrdered By: Rosalina Shelton on 12-14-2022 Glucose [Mass/Vol] 149 mg/dL 70-100 [facility] Comment on above: ADA recommended refe rence rangeRandom Glucose Reference Range is dependent on time and content of last meal. Glucose of more than 200 mg/dL in a nonstressed, ambulatory subject supports the diagnosis of Diabetes Mellitus. Hematocrit Auto (Bld) [Volum e fraction]Ordered By: Rosalina Shelton on 12-14-2022 Hematocrit (Bld) [Volume fraction] 36.1 % 34.0-46.4 [facility] Hemoglobin [Mass/volume] in BloodOrdered By: Rosalina Shelton on 12-14-2022 Hemoglobin (Bld) [Mass/Vol] 12.1 g/dL 11.8-15.4 [facility] Leukocytes [#/volume] correc darío for nucleated erythrocytes in Blood by Automated counOrdered By: Rosalina Shelton on 12-14-2022 WBC corrected for nucl RBC Auto (Bld) [#/Vol] 4.4 10*3/uL 3.8-11.6 [facility] Lymphocytes Auto (Bld) [#/Vo l]Ordered By: Rosalina Shelton on 12-14-2022 Lymphocytes (Bld) [#/Vol] 1.3 10*3/uL 1.00-4.8 [facility] Lymphocytes/100 WBC Auto (Bl d)Ordered By: Rosalina Shelton on 12-14-2022 Lymphocytes/100 WBC (Bld) 28.6 % . [facility] MCH Auto (RBC) [Entitic mass ]Ordered By: Rosalina Shelton on 12-14-2022 MCH (RBC) [Entitic mass] 32.2 pg 24.7-34.3 [facility] MCHC Auto (RBC) [Mass/Vol]Or dered By: Rosalina Shelton on 12-14-2022 MCHC (RBC) [Mass/Vol] 33.4 g/dL 32.0-35.0 [facility] MCV Auto (RBC) [Entitic vol] Ordered By: Rosalina Shelton on 12-14-2022 MCV (RBC) [Entitic vol] 96.3 fL 80-100 [facility] Monocytes Auto (Bld) [#/Vol] Ordered By: Rosalina Shelton on 12-14-2022 Monocytes (Bld) [#/Vol] 0.5 10*3/uL 0.0-0.8 [facility] Monocytes/100 WBC Auto (Bld) Ordered By: Rosalina Shelton on 12-14-2022 Monocytes/100 WBC (Bld) 11.6 % . [facility] Neutrophils Auto (Bld) [#/Vo l]Ordered By: Rosalina Shelton on 12-14-2022 Neutrophils (Bld) [#/Vol] 2.5 10*3/uL 1.8-7.7 [facility] Neutrophils/100 WBC Auto (Bl d)Ordered By: Rosalina Shelton on 12-14-2022 Neutrophils/100 WBC (Bld) 56.8 % . [facility] No Panel InformationOrdered By: Rosalina Shelton on 12-14-2022 Estimated GFR (CKD-EPI) > 60.0 mL/Min [facility] Creatinine Clearance (Chem 54.33 [facility] Nucleated erythrocytes [Pres ence] in Blood by Automated countOrdered By: Rosalina Shelton on 12-14-2022 Nucleated RBC Auto Ql (Bld) 0.1 /100{WBC} 0-0.5 [facility] Platelet mean volume Auto (B ld) [Entitic vol]Ordered By: Rosalina Shelton on 12-14-2022 Platelet mean volume (Bld) [Entitic vol] 8.3 fL 6.3-10.7 [facility] Platelets Auto (Bld) [#/Vol] Ordered By: Rosalina Shelton on 12-14-2022 Platelets (Bld) [#/Vol] 197 10*3/uL 150-450 [facility] Potassium [Moles/volume] in Serum or PlasmaOrdered By: Rosalina Shelton on 12-14-2022 Potassium [Moles/Vol] 4.1 mmol/L 3.5-5.1 [facility] RBC Auto (Bld) [#/Vol]Ordere d By: Rosalina Shelton on 12-14-2022 RBC (Bld) [#/Vol] 3.75 10*6/uL 3.60-5.00 [facility] Serum or plasma anion gap de terminationOrdered By: Rosalina Shelton on 12-14-2022 Anion gap [Moles/Vol] TNP [facility] Comment on above: Test not performed Sodium [Moles/volume] in Ser um or PlasmaOrdered By: Rosalina Shelton on 12-14-2022 Sodium [Moles/Vol] 135 mmol/L 136-145 [facility] Comment on above: Hemolysis is present at a level that could interfere with the result. Troponin I.cardiac [Mass/vol ume] in Serum or Plasma by Detection limit <= 0.01 ng/Ordered By: Rosalina Shelton on 12-14-2022 Troponin I.cardiac DL <= 0.01 ng/mL [Mass/Vol] 6.3 pg/mL 0.0-15.0 [facility] Urea nitrogen [Mass/volume] in Serum or PlasmaOrdered By: Rosalina Shelton on 12-14-2022 Urea nitrogen [Mass/Vol] 13 mg/dL 7-25 [facility] WBC Auto (Bld) [#/Vol]Ordere d By: Rosalina Shelton on 12-14-2022 WBC (Bld) [#/Vol] 4.4 10*3/uL 3.8-11.6 [facility] Activated partial thrombopla stin time (aPTT) in platelet poor plasma by coagulation aOrdered By: Celio Loob on 12-13-2022 aPTT Coag (PPP) [Time] 38.0 s 25.1-36.5 [facility] Alanine aminotransferase [En zymatic activity/volume] in Serum or PlasmaOrdered By: Celio Lobo on 12-13-2022 ALT [Catalytic activity/Vol] 14 U/L 7-52 [facility] Albumin [Mass/volume] in Ser um or Plasma by Bromocresol green (BCG) dye binding methoOrdered By: Celio Lobo on 12-13-2022 Albumin BCG dye [Mass/Vol] 3.8 g/dL 3.5-5.7 [facility] Alkaline phosphatase [Enzyma tic activity/volume] in Serum or PlasmaOrdered By: Celio Lobo on 12-13-2022 ALP [Catalytic activity/Vol] 51 U/L 34-104 [facility] Aspartate aminotransferase [ Enzymatic activity/volume] in Serum or PlasmaOrdered By: Celio Lobo on 12-13-2022 AST [Catalytic activity/Vol] 18 U/L 13-39 [facility] Basophils Auto (Bld) [#/Vol] Ordered By: Celio Lboo on 12-13-2022 Basophils (Bld) [#/Vol] 0.0 10*3/uL 0.0-0.2 [facility] Basophils/100 WBC Auto (Bld) Ordered By: Celio Lobo on 12-13-2022 Basophils/100 WBC (Bld) 1.0 % . [facility] Bilirubin Test strip Ql (U)O rdered By: Celio Lobo on 12-13-2022 Bilirubin Ql (U) Negative Negative [facility] Bilirubin.total [Mass/volume ] in Serum or PlasmaOrdered By: Celio Lobo 12-13-2022 Bilirubin [Mass/Vol] 0.3 mg/dL 0.3-1.0 [facility] Calcium [Mass/volume] in Ser um or PlasmaOrdered By: Celio Lobo 12-13-2022 Calcium [Mass/Vol] 8.5 mg/dL 8.6-10.3 [facility] Carbon dioxide, total [Moles /volume] in Serum or PlasmaOrdered By: Celio Lobo 12-13-2022 CO2 [Moles/Vol] 23.2 mmol/L 21.0-31.0 [facility] Chloride [Moles/volume] in S remi or PlasmaOrdered By: Celio Lobo 12-13-2022 Chloride [Moles/Vol] 106 mmol/L 98-107 [facility] Color Auto (U)Ordered By: Perez Lobo on 12-13-2022 Color (U) Yellow Yellow [facility] Creatinine [Mass/volume] in Serum or PlasmaOrdered By: Celio Lobo on 12-13-2022 Creatinine [Mass/Vol] 1.06 mg/dL 0.60-1.20 [facility] Eosinophils Auto (Bld) [#/Vo l]Ordered By: Celio Lobo on 12-13-2022 Eosinophils (Bld) [#/Vol] 0.1 10*3/uL 0.0-0.45 [facility] Eosinophils/100 WBC Auto (Bl d)Ordered By: Celio Lobo on 12-13-2022 Eosinophils/100 WBC (Bld) 1.2 % . [facility] Erythrocyte distribution wid th Auto (RBC) [Ratio]Ordered By: Celio Lobo on 12-13-2022 Erythrocyte distribution width (RBC) [Ratio] 14.6 % 11.9-15.3 [facility] Globulin Calc (S) [Mass/Vol] Ordered By: Celio Lobo on 12-13-2022 Globulin (S) [Mass/Vol] 2.8 g/dL [facility] Glucose Glucometer (BldC) [M ass/Vol]Ordered By: Celio Lobo on 12-13-2022 Glucose [Mass/Vol] 96 mg/dL [facility] Comment on above: Random Glucose Refer ence Range is dependent on time and content of last meal. Glucose of more than 200 mg/dL in a nonstressed, ambulatory subject supports the diagnosis of Diabetes Mellitus. Glucose [Mass/volume] in Ser um or PlasmaOrdered By: Celio Lobo on 12-13-2022 Glucose [Mass/Vol] 152 mg/dL 70-100 [facility] Comment on above: ADA recommended refe rence rangeRandom Glucose Reference Range is dependent on time and content of last meal. Glucose of more than 200 mg/dL in a nonstressed, ambulatory subject supports the diagnosis of Diabetes Mellitus. Hematocrit Auto (Bld) [Volum e fraction]Ordered By: Celio Lobo on 12-13-2022 Hematocrit (Bld) [Volume fraction] 37.8 % 34.0-46.4 [facility] Hemoglobin [Mass/volume] in BloodOrdered By: Celio Lobo on 12-13-2022 Hemoglobin (Bld) [Mass/Vol] 12.5 g/dL 11.8-15.4 [facility] Ketones Auto test strip (U) [Mass/Vol]Ordered By: Celio Lobo on 12-13-2022 Ketones (U) [Mass/Vol] Negative Negative Fi [facility] - CoagulationOrde red By: Celio Lobo on 12-13-2022 PT Coag (PPP) [Time] 23.1 s 9.0-12.9 [facility] Leukocytes [#/volume] correc darío for nucleated erythrocytes in Blood by Automated counOrdered By: Celio Lobo on 12-13-2022 WBC corrected for nucl RBC Auto (Bld) [#/Vol] 4.9 10*3/uL 3.8-11.6 [facility] Lymphocytes Auto (Bld) [#/Vo l]Ordered By: Celio Lobo on 12-13-2022 Lymphocytes (Bld) [#/Vol] 1.5 10*3/uL 1.00-4.8 [facility] Lymphocytes/100 WBC Auto (Bl d)Ordered By: Celio Lobo on 12-13-2022 Lymphocytes/100 WBC (Bld) 29.8 % . [facility] MCH Auto (RBC) [Entitic mass ]Ordered By: Celio Lobo on 12-13-2022 MCH (RBC) [Entitic mass] 31.8 pg 24.7-34.3 [facility] MCHC Auto (RBC) [Mass/Vol]Or dered By: Celio Lobo on 12-13-2022 MCHC (RBC) [Mass/Vol] 33.1 g/dL 32.0-35.0 [facility] MCV Auto (RBC) [Entitic vol] Ordered By: Celio Lobo on 12-13-2022 MCV (RBC) [Entitic vol] 96.0 fL 80-100 [facility] Magnesium [Mass/volume] in S remi or PlasmaOrdered By: Rosalina Shelton on 12-13-2022 Magnesium [Mass/Vol] 1.9 mg/dL 1.9-2.7 [facility] Magnesium [Mass/volume] in S remi or PlasmaOrdered By: Celio Lobo on 12-13-2022 Magnesium [Mass/Vol] 2.0 mg/dL 1.9-2.7 [facility] Monocyte distribution width [Entitic volume] in Blood by AutomatedOrdered By: Celio Lobo on 12-13-2022 Monocyte distribution width Auto (Bld) [Entitic vol] 18.43 % 0.00-20.00 [facility] Monocytes Auto (Bld) [#/Vol] Ordered By: Celio Lobo on 12-13-2022 Monocytes (Bld) [#/Vol] 0.5 10*3/uL 0.0-0.8 [facility] Monocytes/100 WBC Auto (Bld) Ordered By: Celio Lobo on 12-13-2022 Monocytes/100 WBC (Bld) 9.9 % . [facility] Natriuretic peptide B [Mass/ Vol]Ordered By: Celio Lobo on 12-13-2022 Natriuretic peptide B (Bld) [Mass/Vol] 105.0 pg/mL 5-100 [facility] Neutrophils Auto (Bld) [#/Vo l]Ordered By: Celio Lobo on 12-13-2022 Neutrophils (Bld) [#/Vol] 2.8 10*3/uL 1.8-7.7 [facility] Neutrophils/100 WBC Auto (Bl d)Ordered By: Celio Lobo on 12-13-2022 Neutrophils/100 WBC (Bld) 58.1 % . [facility] Nitrite Test strip Ql (U)Ord ered By: Celio Lobo on 12-13-2022 Nitrite Ql (U) Negative Negative [facility] No Panel InformationOrdered By: Celio Lobo on 12-13-2022 Bedside Glucose #2 Comment Cleaned meter [facility] Bedside Glucose Comment See comment [facility] Comment on above: Glu2: WILL NOTIFY DR /RN Estimated GFR (CKD-EPI) 56.163 mL/Min [facility] Pharmacy Creatinine Clearance (Chem 51.30 [facility] No Panel InformationOrdered By: Rosalina Shelton on 12-13-2022 D-Dimer Quantitative (PE/DVT) < 200 ng/mL 0-243 [facility] Comment on above: The reference range [...] RBC Auto Ql (Bld) 0.0 /100{WBC} 0-0.5 [facility] Platelet mean volume Auto (B ld) [Entitic vol]Ordered By: Celio Lobo on 12-13-2022 Platelet mean volume (Bld) [Entitic vol] 8.4 fL 6.3-10.7 [facility] Platelet poor plasma interna tional normalized ratio (INR) by coagulation assay (relatOrdered By: Celio Lobo on 12-13-2022 INR Coag (PPP) [Relative time] 2.0 {INR} [facility] Comment on above: INR Therapeutic Rang [...] 12-13-2022 Platelets (Bld) [#/Vol] 221 10*3/uL 150-450 [facility] Potassium [Moles/volume] in Serum or PlasmaOrdered By: Celio Lobo on 12-13-2022 Potassium [Moles/Vol] 4.0 mmol/L 3.5-5.1 [facility] Protein Auto test strip (U) [Mass/Vol]Ordered By: Celio Lobo on 12-13-2022 Protein (U) [Mass/Vol] Negative Negative Fi [facility] Protein [Mass/volume] in Ser um or PlasmaOrdered By: Celio Lobo on 12-13-2022 Protein [Mass/Vol] 6.6 g/dL 6.4-8.9 [facility] RBC Auto (Bld) [#/Vol]Ordere d By: Celio Lobo on 12-13-2022 RBC (Bld) [#/Vol] 3.94 10*6/uL 3.60-5.00 [facility] Serum or plasma albumin/glob ulin mass ratioOrdered By: Celio Lobo on 12-13-2022 Albumin/Globulin [Mass ratio] 1.4 {ratio} [facility] Serum or plasma anion gap de terminationOrdered By: Celio Lobo on 12-13-2022 Anion gap [Moles/Vol] 11.8 mmol/L 6.0-15.0 [facility] Sodium [Moles/volume] in Ser um or PlasmaOrdered By: Celio Lobo 12-13-2022 Sodium [Moles/Vol] 137 mmol/L 136-145 [facility] Specific gravity Auto test s trip (U) [Rel density]Ordered By: Celio Lobo on 12-13-2022 Specific gravity (U) [Rel density] 1.006 1.001-1.03 0 [facility] Thyrotropin [Units/volume] i n Serum or PlasmaOrdered By: Rosalina Shelton on 12-13-2022 TSH Qn 4.39 m[IU]/L 0.45-5.33 [facility] Troponin I.cardiac [Mass/vol ume] in Serum or Plasma by Detection limit <= 0.01 ng/Ordered By: Celio Lobo on 12-13-2022 Troponin I.cardiac DL <= 0.01 ng/mL [Mass/Vol] 6.4 pg/mL 0.0-15.0 [facility] Urea nitrogen [Mass/volume] in Serum or PlasmaOrdered By: Celio Lobo 12-13-2022 Urea nitrogen [Mass/Vol] 15 mg/dL 7-25 [facility] Urine clarity by refractomet ry automatedOrdered By: Celio Lobo 12-13-2022 Clarity Refractometry automated (U) Clear Clear [facility] Urine glucose measurement by automated test strip (mass/volume)Ordered By: Celio Lobo on 12-13-2022 Glucose Auto test strip (U) [Mass/Vol] Normal mg/dL Normal [facility] Urine hemoglobin detection b y automated test stripOrdered By: Celio Lobo on 12-13-2022 Hemoglobin Auto test strip Ql (U) Negative Negative [facility] Urine leukocyte esterase det ection by automated test stripOrdered By: Celio Lobo on 12-13-2022 Leukocyte esterase Auto test strip Ql (U) Negative Negative [facility] Urobilinogen Auto test strip (U) [Mass/Vol]Ordered By: Celio Lobo on 12-13-2022 Urobilinogen (U) [Mass/Vol] Normal mg/dL Normal [facility] WBC Auto (Bld) [#/Vol]Ordere d By: Celio Lobo on 12-13-2022 WBC (Bld) [#/Vol] 4.9 10*3/uL 3.8-11.6 [facility] pH Auto test strip (U)Ordere d By: Celio Lobo on 12-13-2022 pH (U) 8.0 [pH] 5.0-9.0 [facility] Prothrombin Time INRon 12-10 INR Coag (PPP) [Relative time] 2.5 {INR} [employer] Other Prothrombin Time INR [facility] [employer] Other Prothrombin Time INRon 11-12 INR Coag (PPP) [Relative time] 2.7 {INR} [employer] Other [facility] [employer] Other Prothrombin Time INRon 10-15 INR Coag (PPP) [Relative time] 2.7 {INR} [employer] Other Prothrombin Time INR [employer] Other Automated erythrocytes count in urine sediment (number/area)Ordered By: Edmond Branham on 09-23-2022 RBC Auto (Urine sed) [#/Area] 1-2 [HPF] 0-4 [facility] Automated leukocytes count i n urine sediment (number/area)Ordered By: Edmond Branham on 09-23-2022 WBC Auto (Urine sed) [#/Area] 5-9 [HPF] 0-4 [facility] Basophils Auto (Bld) [#/Vol] Ordered By: Edmond Branham on 09-23-2022 Basophils (Bld) [#/Vol] 0.1 10*3/uL 0.0-0.2 [facility] Basophils/100 WBC Auto (Bld) Ordered By: Edmond Branham on 09-23-2022 Basophils/100 WBC (Bld) 1.1 % . [facility] Bilirubin Test strip Ql (U)O rdered By: Edmond Branham on 09-23-2022 Bilirubin Ql (U) Negative Negative [facility] Body fluid albumin measureme nt (mass/volume)Ordered By: Edmond Branham on 09-23-2022 Albumin (Body fld) [Mass/Vol] 3.7 g/dL 3.2-5.5 [facility] Color Auto (U)Ordered By: Kailey Branham on 09-23-2022 Color (U) Dark yellow Yellow [facility] Creatinine and Glomerular fi ltration rate.predicted panel (S/P/Bld)Ordered By: Edmond Branham on 09-23-2022 Creatinine [Mass/Vol] 1.15 mg/dL 0.44-1.03 [facility] Eosinophils Auto (Bld) [#/Vo l]Ordered By: Edmond Branham on 09-23-2022 Eosinophils (Bld) [#/Vol] 0.1 10*3/uL 0.0-0.45 [facility] Eosinophils/100 WBC Auto (Bl d)Ordered By: Edmond Branham on 09-23-2022 Eosinophils/100 WBC (Bld) 1.7 % . [facility] Erythrocyte distribution wid th Auto (RBC) [Ratio]Ordered By: Edmond Branham on 09-23-2022 Erythrocyte distribution width (RBC) [Ratio] 15.0 % 11.9-15.3 [facility] Estimated glomerular filtrat ion rate (GFR) non- AmericanOrdered By: Edmond Branham on 09-23-2022 GFR/1.73 sq M.predicted among non-blacks MDRD (S/P/Bld) [Vol rate/Area] 47 mL/Min [facility] Globulin Calc (S) [Mass/Vol] Ordered By: Edmond Branham on 09-23-2022 Globulin (S) [Mass/Vol] 2.9 g/dL [facility] Glucose Glucometer (BldC) [M ass/Vol]Ordered By: Edmond Branham on 09-23-2022 Glucose [Mass/Vol] 108 mg/dL [facility] Comment on above: Random Glucose Refer ence Range is dependent on time and content of last meal. Glucose of more than 200 mg/dL in a nonstressed, ambulatory subject supports the diagnosis of Diabetes Mellitus. Hematocrit Auto (Bld) [Volum e fraction]Ordered By: Edmond Branham on 09-23-2022 Hematocrit (Bld) [Volume fraction] 39.1 % 34.0-46.4 [facility] Hemoglobin [Mass/volume] in BloodOrdered By: Edmond Branham on 09-23-2022 Hemoglobin (Bld) [Mass/Vol] 13.3 g/dL 11.8-15.4 [facility] Ketones Auto test strip (U) [Mass/Vol]Ordered By: Edmond Branham on 09-23-2022 Ketones (U) [Mass/Vol] Negative Negative [facility] Laboratory - UrinalysisOrder ed By: Edmond Branham on 09-23-2022 Hyaline casts LM Ql (Urine sed) 0-8 [LPF] 0-8 [facility] Leukocytes [#/volume] correc darío for nucleated erythrocytes in Blood by Automated counOrdered By: Edmond Branham on 09-23-2022 WBC corrected for nucl RBC Auto (Bld) [#/Vol] 5.2 10*3/uL 3.8-11.6 [facility] Lymphocytes Auto (Bld) [#/Vo l]Ordered By: Edmond Branham on 09-23-2022 Lymphocytes (Bld) [#/Vol] 1.6 10*3/uL 1.00-4.8 [facility] Lymphocytes/100 WBC Auto (Bl d)Ordered By: Edmond Branham on 09-23-2022 Lymphocytes/100 WBC (Bld) 31.1 % . [facility] MCH Auto (RBC) [Entitic mass ]Ordered By: Edmond Branham on 09-23-2022 MCH (RBC) [Entitic mass] 32.3 pg 24.7-34.3 [facility] MCHC Auto (RBC) [Mass/Vol]Or dered By: Edmond Branham on 09-23-2022 MCHC (RBC) [Mass/Vol] 34.0 g/dL 32.0-35.0 [facility] MCV Auto (RBC) [Entitic vol] Ordered By: Edmond Branham on 09-23-2022 MCV (RBC) [Entitic vol] 95.2 fL 80-100 [facility] Monocyte distribution width [Entitic volume] in Blood by AutomatedOrdered By: Edmond Branham on 09-23-2022 Monocyte distribution width Auto (Bld) [Entitic vol] 19.36 % 0.00-20.00 [facility] Monocytes Auto (Bld) [#/Vol] Ordered By: Edmond Branham on 09-23-2022 Monocytes (Bld) [#/Vol] 0.5 10*3/uL 0.0-0.8 [facility] Monocytes/100 WBC Auto (Bld) Ordered By: Edmond Branham on 09-23-2022 Monocytes/100 WBC (Bld) 10.2 % . [facility] Neutrophils Auto (Bld) [#/Vo l]Ordered By: Edmond Branham on 09-23-2022 Neutrophils (Bld) [#/Vol] 2.9 10*3/uL 1.8-7.7 [facility] Neutrophils/100 WBC Auto (Bl d)Ordered By: Edmond Branham on 09-23-2022 Neutrophils/100 WBC (Bld) 55.9 % . [facility] Nitrite Test strip Ql (U)Ord ered By: Edmond Branham on 09-23-2022 Nitrite Ql (U) Negative Negative [facility] No Panel InformationOrdered By: Edmond Branham on 09-23-2022 Estimated GFR () 56 mL/Min [facility] Comment on above: GFR estimated refere nce range: According to KDOQI guidelines, <60 ml/min/1.73m2 is sufficient to diagnose a patient with chronic kidney disease. Pharmacy Creatinine Clearance (Chem 46.55 [facility] Nucleated erythrocytes [Pres ence] in Blood by Automated countOrdered By: Edmond Branham on 09-23-2022 Nucleated RBC Auto Ql (Bld) 0.1 /100{WBC} 0-0.5 [facility] Platelet mean volume Auto (B ld) [Entitic vol]Ordered By: Edmond Branham on 09-23-2022 Platelet mean volume (Bld) [Entitic vol] 8.1 fL 6.3-10.7 [facility] Platelets Auto (Bld) [#/Vol] Ordered By: Edmond Branham on 09-23-2022 Platelets (Bld) [#/Vol] 183 10*3/uL 150-450 [facility] Protein Auto test strip (U) [Mass/Vol]Ordered By: Edmond Branham on 09-23-2022 Protein (U) [Mass/Vol] Negative Negative [facility] Protein [Mass/volume] in Ser um or PlasmaOrdered By: Edmond Branham on 09-23-2022 Protein [Mass/Vol] 6.6 g/dL 6.1-7.9 [facility] RBC Auto (Bld) [#/Vol]Ordere d By: Edmond Branham on 09-23-2022 RBC (Bld) [#/Vol] 4.10 10*6/uL 3.60-5.00 [facility] Serum or plasma alanine lugo otransferase measurement without P-5'-P (enzymatic activiOrdered By: Edmond Branham on 09-23-2022 ALT No additional P-5'-P [Catalytic activity/Vol] 15 U/L 10-60 [facility] Serum or plasma albumin/glob ulin mass ratioOrdered By: Edmond Branham on 09-23-2022 Albumin/Globulin [Mass ratio] 1.3 {ratio} [facility] Serum or plasma alkaline elijah sphatase measurement (enzymatic activity/volume)Ordered By: Edmond Branham on 09-23-2022 ALP [Catalytic activity/Vol] 57 U/L 32-92 [facility] Serum or plasma anion gap de terminationOrdered By: Edmond Branham on 09-23-2022 Anion gap [Moles/Vol] 15.9 mmol/L 6.0-15.0 [facility] Serum or plasma aspartate am inotransferase measurement (enzymatic activity/volume)Ordered By: Edmond Branham on 09-23-2022 AST [Catalytic activity/Vol] 20 U/L 10-42 [facility] Serum or plasma calcium flakita urement (mass/volume)Ordered By: Edmond Branham on 09-23-2022 Calcium [Mass/Vol] 9.3 mg/dL 8.2-10.2 [facility] Serum or plasma chloride patrice surement (moles/volume)Ordered By: Edmond Branham on 09-23-2022 Chloride [Moles/Vol] 103 mmol/L 95-114 [facility] Serum or plasma glucose flakita urement (mass/volume)Ordered By: Edmond Branham on 09-23-2022 Glucose [Mass/Vol] 103 mg/dL 70-100 [facility] Comment on above: ADA recommended refe rence rangeRandom Glucose Reference Range is dependent on time and content of last meal. Glucose of more than 200 mg/dL in a nonstressed, ambulatory subject supports the diagnosis of Diabetes Mellitus. Serum or plasma potassium me asurement (moles/volume)Ordered By: Edmond Branham on 09-23-2022 Potassium [Moles/Vol] 3.5 mmol/L 3.5-5.1 [facility] Serum or plasma sodium measu rement (moles/volume)Ordered By: Edmond Branham on 09-23-2022 Sodium [Moles/Vol] 137 mmol/L 136-146 [facility] Serum or plasma total biliru bin measurement (mass/volume)Ordered By: Edmond Branham on 09-23-2022 Bilirubin [Mass/Vol] 0.4 mg/dL 0.3-1.2 [facility] Serum or plasma total carbon dioxide measurement (moles/volume)Ordered By: Edmond Branham on 09-23-2022 CO2 [Moles/Vol] 21.6 mmol/L 22.0-30.0 [facility] Serum or plasma urea nitroge n measurement (mass/volume)Ordered By: Edmond Branham on 09-23-2022 Urea nitrogen [Mass/Vol] 13 mg/dL 9-23 [facility] Specific gravity Auto test s trip (U) [Rel density]Ordered By: Edmond Branham on 09-23-2022 Specific gravity (U) [Rel density] 1.012 1.001-1.03 0 [facility] Squamous epithelial cells de tection in urine sediment by light microscopyOrdered By: Edmond Branham on 09-23-2022 Epithelial cells.squamous LM Ql (Urine sed) 3-4 [HPF] 0-2 [facility] Troponin I.cardiac [Mass/vol ume] in Serum or Plasma by High sensitivity methodOrdered By: Edmond Branham on 09-23-2022 Troponin I.cardiac High sensitivity method [Mass/Vol] 6 pg/mL 0-15 [facility] Urine bacteria detection by automated methodOrdered By: Edmond Branham on 09-23-2022 Bacteria Auto Ql (U) None seen None Seen [facility] Urine clarity by refractomet ry automatedOrdered By: Edmond Branham on 09-23-2022 Clarity Refractometry automated (U) Clear Clear [facility] Urine culture routineOrdered By: Edmond Branham on 09-23-2022 Bacteria identified Cx Nom (U) 2 Days [facility] Urine glucose measurement by automated test strip (mass/volume)Ordered By: Edmond Branham on 09-23-2022 Glucose Auto test strip (U) [Mass/Vol] Normal mg/dL Normal [facility] Urine hemoglobin detection b y automated test stripOrdered By: Edmond Branham on 09-23-2022 Hemoglobin Auto test strip Ql (U) Negative Negative [facility] Urine leukocyte esterase det ection by automated test stripOrdered By: Edmond Branham on 09-23-2022 Leukocyte esterase Auto test strip Ql (U) 1+ Negative [facility] Urobilinogen Auto test strip (U) [Mass/Vol]Ordered By: Edmond Branham on 09-23-2022 Urobilinogen (U) [Mass/Vol] Normal mg/dL Normal [facility] WBC Auto (Bld) [#/Vol]Ordere d By: Edmond Branham on 09-23-2022 WBC (Bld) [#/Vol] 5.2 10*3/uL 3.8-11.6 [facility] pH Auto test strip (U)Ordere d By: Edmond Branham on 09-23-2022 pH (U) 8.0 [pH] 5.0-9.0 [facility] Prothrombin Time INRon 09-17 INR Coag (PPP) [Relative time] 3.2 {INR} [employer] Other Prothrombin Time [facility]R [facility] [employer] Other Prothrombin Time INRon 08-20 INR Coag (PPP) [Relative time] 2.5 {INR} [employer] Other Prothrombin Time INR [facility] [employer] Other Prothrombin Time INRon 07-24 INR Coag (PPP) [Relative time] 3.5 {INR} [employer] Other Prothrombin Time INR [facility] [employer] Other Prothrombin Time INRon 06-26 INR Coag (PPP) [Relative time] 1.7 {INR} [employer] Other Prothrombin Time INR [facility] [employer] Other Prothrombin Time INRon 06-05 INR Coag (PPP) [Relative time] 2.6 {INR} [employer] Other Prothrombin Time INR [facility] [employer] Other Laboratory - CoagulationOrde red By: Marlon Molina on 05-29-2022 PT Coag (PPP) [Time] 12.3 s 9.0-12.9 [facility] Platelet poor plasma interna tional normalized ratio (INR) by coagulation assay (relatOrdered By: Marlon Molina on 05-29-2022 INR Coag (PPP) [Relative time] 1.1 {INR} [facility] Comment on above: INR Therapeutic Rang [...] INR Coag (PPP) [Relative time] 2.1 {INR} [facility] [employer] Other Prothrombin Time INR [facility] [employer] Other Basophils Auto (Bld) [#/Vol] Ordered By: Marlon Molina on 05-20-2022 Basophils (Bld) [#/Vol] 0.0 10*3/uL 0.0-0.2 [facility] Basophils/100 WBC Auto (Bld) Ordered By: Marlon Molina on 05-20-2022 Basophils/100 WBC (Bld) 0.9 % . [facility] Blood hemoglobin measurement (mass/volume)Ordered By: Marlon Molina on 05-20-2022 Hemoglobin (Bld) [Mass/Vol] 13.4 g/dL 11.8-15.4 [facility] Blood leukocytes automated c ount (number/volume)Ordered By: Marlon Molina on 05-20-2022 WBC (Bld) [#/Vol] 5.2 10*3/uL 4.5-11.0 [facility] Body fluid albumin measureme nt (mass/volume)Ordered By: Marlon Molina on 05-20-2022 Albumin (Body fld) [Mass/Vol] 3.6 g/dL 3.2-5.5 [facility] Creatinine and Glomerular fi ltration rate.predicted panel (S/P/Bld)Ordered By: Marlon Molina on 05-20-2022 Creatinine [Mass/Vol] 1.04 mg/dL 0.44-1.03 [facility] Eosinophils Auto (Bld) [#/Vo l]Ordered By: Marlon Molina on 05-20-2022 Eosinophils (Bld) [#/Vol] 0.1 10*3/uL 0.0-0.45 [facility] Eosinophils/100 WBC Auto (Bl d)Ordered By: Marlon Molina on 05-20-2022 Eosinophils/100 WBC (Bld) 1.1 % . [facility] Erythrocyte distribution wid th Auto (RBC) [Ratio]Ordered By: Marlon Molina on 05-20-2022 Erythrocyte distribution width (RBC) [Ratio] 14.6 % 11.9-15.3 [facility] Estimated glomerular filtrat ion rate (GFR) non- AmericanOrdered By: Marlon Molina on 05-20-2022 GFR/1.73 sq M.predicted among non-blacks MDRD (S/P/Bld) [Vol rate/Area] 52 mL/Min [facility] Globulin Calc (S) [Mass/Vol] Ordered By: Marlon Molina on 05-20-2022 Globulin (S) [Mass/Vol] 2.8 g/dL [facility] Hematocrit Auto (Bld) [Volum e fraction]Ordered By: Marlon Molina on 05-20-2022 Hematocrit (Bld) [Volume fraction] 39.7 % 34.0-46.4 [facility] Laboratory - Hematology and Cell countsOrdered By: Marlon Molina on 05-20-2022 Nucleated RBC/100 WBC (Bld) [Ratio] 0.0 % 0-0.5 [facility] Lymphocytes Auto (Bld) [#/Vo l]Ordered By: Marlon Molina on 05-20-2022 Lymphocytes (Bld) [#/Vol] 1.2 10*3/uL 1.00-4.8 [facility] Lymphocytes/100 WBC Auto (Bl d)Ordered By: Marlon Molina on 05-20-2022 Lymphocytes/100 WBC (Bld) 22.5 % . [facility] MCH Auto (RBC) [Entitic mass ]Ordered By: Marlon Molina on 05-20-2022 MCH (RBC) [Entitic mass] 32.5 pg 24.7-34.3 [facility] MCHC Auto (RBC) [Mass/Vol]Or dered By: Marlon Molina on 05-20-2022 MCHC (RBC) [Mass/Vol] 33.7 g/dL 32.0-35.0 [facility] MCV Auto (RBC) [Entitic vol] Ordered By: Marlon Molina on 05-20-2022 MCV (RBC) [Entitic vol] 96.3 fL 80-100 [facility] Monocytes Auto (Bld) [#/Vol] Ordered By: Marlon Molina on 05-20-2022 Monocytes (Bld) [#/Vol] 0.4 10*3/uL 0.0-0.8 [facility] Monocytes/100 WBC Auto (Bld) Ordered By: Marlon Mikea on 05-20-2022 Monocytes/100 WBC (Bld) 7.1 % . [facility] Neutrophils Auto (Bld) [#/Vo l]Ordered By: Marlon Mikea on 05-20-2022 Neutrophils (Bld) [#/Vol] 3.6 10*3/uL 1.8-7.7 [facility] Neutrophils/100 WBC Auto (Bl d)Ordered By: Marlon Mikea on 05-20-2022 Neutrophils/100 WBC (Bld) 68.4 % . [facility] No Panel InformationOrdered By: Marlon Molina on 05-20-2022 Estimated GFR () > 60 mL/Min [facility] Comment on above: GFR estimated refere nce range: According to KDOQI guidelines, <60 ml/min/1.73m2 is sufficient to diagnose a patient with chronic kidney disease. Pharmacy Creatinine Clearance (Chem N/A [facility] Platelet mean volume Auto (B ld) [Entitic vol]Ordered By: Marlon Molina on 05-20-2022 Platelet mean volume (Bld) [Entitic vol] 8.8 fL 6.3-10.7 [facility] Platelets Auto (Bld) [#/Vol] Ordered By: Marlon Molina on 05-20-2022 Platelets (Bld) [#/Vol] 224 10*3/uL 150-450 [facility] Protein [Mass/volume] in Ser um or PlasmaOrdered By: Marlon Molina on 05-20-2022 Protein [Mass/Vol] 6.4 g/dL 6.1-7.9 [facility] [facility] RBC Auto (Bld) [#/Vol]Ordere d By: Marlon Mikea on 05-20-2022 RBC (Bld) [#/Vol] 4.13 10*6/uL 3.60-5.00 [facility] Serum or plasma alanine lugo otransferase measurement without P-5'-P (enzymatic activiOrdered By: Marlon Molina on 05-20-2022 ALT No additional P-5'-P [Catalytic activity/Vol] 18 U/L 10-60 [facility] Serum or plasma albumin/glob ulin mass ratioOrdered By: Marlon Molina on 05-20-2022 Albumin/Globulin [Mass ratio] 1.3 {ratio} [facility] Serum or plasma alkaline elijah sphatase measurement (enzymatic activity/volume)Ordered By: Marlon Molina on 05-20-2022 ALP [Catalytic activity/Vol] 51 U/L 32-92 [facility] Serum or plasma anion gap de terminationOrdered By: Marlon Molina on 05-20-2022 Anion gap [Moles/Vol] 16.4 mmol/L 6.0-15.0 [facility] Serum or plasma aspartate am inotransferase measurement (enzymatic activity/volume)Ordered By: Marlon Molina on 05-20-2022 AST [Catalytic activity/Vol] 21 U/L 10-42 [facility] Serum or plasma calcium flakita urement (mass/volume)Ordered By: Marlon Molina on 05-20-2022 Calcium [Mass/Vol] 8.8 mg/dL 8.2-10.2 [facility] Serum or plasma chloride patrice surement (moles/volume)Ordered By: Marlon Molina on 05-20-2022 Chloride [Moles/Vol] 99 mmol/L 95-114 [facility] Serum or plasma glucose flakita urement (mass/volume)Ordered By: Marlon Molina on 05-20-2022 Glucose [Mass/Vol] 191 mg/dL 70-100 [facility] Comment on above: ADA recommended refe rence rangeRandom Glucose Reference Range is dependent on time and content of last meal. Glucose of more than 200 mg/dL in a nonstressed, ambulatory subject supports the diagnosis of Diabetes Mellitus. Serum or plasma potassium me asurement (moles/volume)Ordered By: Marlon Molina on 05-20-2022 Potassium [Moles/Vol] 4.1 mmol/L 3.5-5.1 [facility] Serum or plasma sodium measu rement (moles/volume)Ordered By: Marlon Molina on 05-20-2022 Sodium [Moles/Vol] 136 mmol/L 136-146 [facility] Serum or plasma total biliru bin measurement (mass/volume)Ordered By: Marlon Molina on 05-20-2022 Bilirubin [Mass/Vol] 0.3 mg/dL 0.3-1.2 [facility] Serum or plasma total carbon dioxide measurement (moles/volume)Ordered By: Marlon Molina on 05-20-2022 CO2 [Moles/Vol] 24.7 mmol/L 22.0-30.0 [facility] Serum or plasma urea nitroge n measurement (mass/volume)Ordered By: Marlon Molina on 05-20-2022 Urea nitrogen [Mass/Vol] 15 mg/dL - [facility] Prothrombin Time INRon 05-06 INR Coag (PPP) [Relative time] 1.5 {INR} [employer] Other Prothrombin Time INR [facility] [employer] Other Prothrombin Time INRon 04-08 INR Coag (PPP) [Relative time] 1.8 {INR} [employer] Other Prothrombin Time INR [facility] [employer] Other Prothrombin Time INRon 03-13 INR Coag (PPP) [Relative time] 2.3 {INR} [employer] Other Prothrombin Time INR [employer] Other Prothrombin Time INRon 02-27 INR Coag (PPP) [Relative time] 2.3 {INR} [employer] Other Prothrombin Time INR [employer] Other COVID-19 Positive/NegativeOr dered By: Tang Mcclellan on 02-26-2022 SARS-CoV-2 (COVID-19) N gene ZHAO+probe Ql (Resp) Negative Negative [facility] Comment on above: Testing for SARS-CoV -2 by RT-PCRThis test was developed and its performance characteristics determined by [employer] ([employer] and validated at the [facility]. This test has not been FDA [...] INR Coag (PPP) [Relative time] 2.0 {INR} [employer] Other Prothrombin Time INR [facility] [employer] Other Prothrombin Time INRon 01-06 INR Coag (PPP) [Relative time] 1.4 {INR} [employer] Other Prothrombin Time INR [facility] [employer] Other Prothrombin Time INRon 12-23 INR Coag (PPP) [Relative time] 1.7 {INR} [employer] Other Prothrombin Time INR [facility] [employer] Other Prothrombin Time INRon 12-11 INR Coag (PPP) [Relative time] 2.9 {INR} [employer] Other Prothrombin Time INR [facility] [employer] Other Prothrombin Time INRon 11-27 INR Coag (PPP) [Relative time] 1.7 {INR} [employer] Other Prothrombin Time INR [facility] [employer] Other Prothrombin Time INRon 11-12 INR Coag (PPP) [Relative time] 1.9 {INR} [facility] [employer] Other Prothrombin Time INR [facility] [employer] Other Prothrombin Time INRon 10-31 INR Coag (PPP) [Relative time] 2.1 {INR} [facility] [employer] Other Prothrombin Time INR [facility] [employer] Other Prothrombin Time INRon 10-14 INR Coag (PPP) [Relative time] 2.5 {INR} [facility] [employer] Other Prothrombin Time INR [facility] [employer] Other Prothrombin Time INRon 09-30 INR Coag (PPP) [Relative time] 2.6 {INR} [facility] [employer] Other Prothrombin Time INR [facility] [employer] Other Prothrombin Time INRon 09-12 INR Coag (PPP) [Relative time] 1.8 {INR} [facility] [employer] Other Prothrombin Time INR [facility] [employer] Other Prothrombin Time INRon 08-29 INR Coag (PPP) [Relative time] 2.1 {INR} [facility] [employer] Other Prothrombin Time INR [facility] [employer] Other Prothrombin Time INRon 08-15 Prothrombin Time INR 1.5 [facility] [employer] Other Prothrombin Time INRon 08-01 INR Coag (PPP) [Relative time] 2.5 {INR} [facility] [employer] Other Prothrombin Time INR [facility] [employer] Other Prothrombin Time INRon 07-15 INR Coag (PPP) [Relative time] 2.6 {INR} [facility] [employer] Other Prothrombin Time INR [facility] [employer] Other Prothrombin Time INRon 07-03 INR Coag (PPP) [Relative time] 2.4 {INR} [facility] [employer] Other Prothrombin Time [facility] [employer] Other Prothrombin Time INRon 06-19 INR Coag (PPP) [Relative time] 1.8 {INR} [facility] [employer] Other Prothrombin Time INR [facility] [employer] Other Prothrombin Time INRon 05-28 INR Coag (PPP) [Relative time] 2.1 {INR} [facility] [employer] Other Prothrombin Time INR [facility] [employer] Other Prothrombin Time INRon 05-15 INR Coag (PPP) [Relative time] 1.6 {INR} [facility] [employer] Other Prothrombin Time INR [facility] [employer] Other Vital Signs Date Time Vital Sign Value Performing Clinician Facility 02-13-2025 08:40-0400 Body height 154.9 cm Venita Marques [employer] Work Phone: [facility] 02-13-2025 08:40-0400 Body mass index (BMI) [Ratio] 34.31 kg/m2 Venita Marques [employer] Work Phone: [facility] 02-13-2025 08:40-0400 Body weight 82.37 kg Venita Marquse [employer] Work Phone: [facility] 02-13-2025 08:40-0400 Diastolic blood pressure 70 mm[Hg] Venita Marques [employer] Work Phone: [facility] 02-13-2025 08:40-0400 Heart rate 74 /min Venita Marques [employer] Work Phone: [facility] 02-13-2025 08:40-0400 Respiratory rate 16 /min Venita Marques [employer] Work Phone: [facility] 02-13-2025 08:40-0400 SaO2% (BldA) [Mass fraction] 98 % Venita Marques [employer] Work Phone: [facility] 02-13-2025 08:40-0400 Systolic blood pressure 112 mm[Hg] Venita Marques [employer] Work Phone: [facility] 01-09-2025 08:47-0400 Body height 154.9 cm Kristopher Herzog DO Work Phone: [facility] 01-09-2025 08:47-0400 Body mass index (BMI) [Ratio] 33.82 kg/m2 Kristophervince Herzog DO Work Phone: [facility] 01-09-2025 08:47-0400 Body weight 81.19 kg Kristophervince Herzog DO Work Phone: [facility] 01-09-2025 08:47-0400 Diastolic blood pressure 72 mm[Hg] Kristophervince Herzog DO Work Phone: [facility] 01-09-2025 08:47-0400 Heart rate 68 /min Kristopher Herzog DO Work Phone: [facility] 01-09-2025 08:47-0400 SaO2% (BldA) [Mass fraction] 97 % Kristophervince Herzog DO Work Phone: [facility] 01-09-2025 08:47-0400 Systolic blood pressure 112 mm[Hg] Kristophervince Herzog DO Work Phone: [facility] 12-16-2024 09:20-0400 Body height 154.[address] DO Work Phone: [facility] 12-16-2024 09:20-0400 Body mass index (BMI) [Ratio] 32.5 kg/m2 Radha Ityenytz DO Work Phone: [facility] 12-16-2024 09:20-0400 Body weight 78.[address] DO Work Phone: [facility] 12-14-2024 09:01-0400 Body height 154.9 cm Kristopher Herzog DO Work Phone: [facility] 12-14-2024 09:01-0400 Body mass index (BMI) [Ratio] 32.61 kg/m2 Kristopher Herzog DO Work Phone: [facility] 12-14-2024 09:01-0400 Body weight 78.29 kg Kristopher Herzog DO Work Phone: [facility] 12-14-2024 09:01-0400 Heart rate 72 /min Kristopher Herzog DO Work Phone: [facility] 12-14-2024 09:01-0400 SaO2% (BldA) [Mass fraction] 99 % Kristopher Herzog DO Work Phone: [facility] 10-25-2024 14:36-0500 Diastolic blood pressure 58 mm[Hg] Venita Didion [employer] Work Phone: [facility] 10-25-2024 14:36-0500 Heart rate 74 /min Venita Didion [employer] Work Phone: [facility] 10-25-2024 14:36-0500 Respiratory rate 16 /min Venita Didion [employer] Work Phone: [facility] 10-25-2024 14:36-0500 SaO2% (BldA) [Mass fraction] 98 % Venita Didion [employer] Work Phone: [facility] 10-25-2024 14:36-0500 Systolic blood pressure 120 mm[Hg] Venita Didion [employer] Work Phone: [facility] 10-07-2024 09:08-0500 Body height 154.94 cm [facility] 10-07-2024 09:08-0500 Body mass index (BMI) [Ratio] 33.6 kg/m2 [facility] 10-07-2024 09:08-0500 Body weight 80.73 kg [facility] 10-07-2024 09:08-0500 Diastolic blood pressure 75 mm[Hg] [facility] 10-07-2024 09:08-0500 Heart rate 73 /min [facility] 10-07-2024 09:08-0500 Systolic blood pressure 127 mm[Hg] [facility] 10-03-2024 09:14-0500 Body height 156.2 cm Kristopher Herzog DO Work Phone: [facility] 10-03-2024 09:14-0500 Body mass index (BMI) [Ratio] 33.09 kg/m2 Kristopher Herzog DO Work Phone: [facility] 10-03-2024 09:14-0500 Body weight 80.74 kg Kristopher Herzog DO Work Phone: [facility] 10-03-2024 09:14-0500 Diastolic blood pressure 58 mm[Hg] Kristopher Herzog DO Work Phone: [facility] 10-03-2024 09:14-0500 Heart rate 74 /min Kristopher Herzog DO Work Phone: [facility] 10-03-2024 09:14-0500 SaO2% (BldA) [Mass fraction] 99 % Kristopher Herzog DO Work Phone: [facility] 10-03-2024 09:14-0500 Systolic blood pressure 120 mm[Hg] Kristopher Herzog DO Work Phone: [facility] 06-29-2024 10:39-0500 Body height 154.94 cm [facility] 06-29-2024 10:39-0500 Body mass index (BMI) [Ratio] 33.8 kg/m2 [facility] 06-29-2024 10:39-0500 Body weight 81.19 kg [facility] 06-22-2024 08:50-0400 Body height 156.2 cm Adam Rodriguez [employer] Work Phone: [facility] 06-22-2024 08:50-0400 Body mass index (BMI) [Ratio] 33.09 kg/m2 Adam Hedrickos [employer] Work Phone: [facility] 06-22-2024 08:50-0400 Body weight 80.74 kg Adam Sarah [employer] Work Phone: [facility] 06-22-2024 08:50-0400 Diastolic blood pressure 74 mm[Hg] Adam Sarah [employer] Work Phone: [facility] 06-22-2024 08:50-0400 Heart rate 79 /min Adam Sarah [employer] Work Phone: [facility] 06-22-2024 08:50-0400 SaO2% (BldA) [Mass fraction] 99 % Adam Sarah [employer] Work Phone: [facility] 06-22-2024 08:50-0400 Systolic blood pressure 120 mm[Hg] Adam Sarah [employer] Work Phone: [facility] 04-29-2024 08:53-0400 Body height 156.2 cm Radha Itzkowitz DO Work Phone: [facility] 04-29-2024 08:53-0400 Body mass index (BMI) [Ratio] 33.46 kg/m2 Radha Itzkowitz DO Work Phone: [facility] 04-29-2024 08:53-0400 Body weight 81.65 kg Radha Itzkowitz DO Work Phone: [facility] 04-29-2024 08:53-0400 Diastolic blood pressure 74 mm[Hg] Radha Itzkowitz DO Work Phone: [facility] 04-29-2024 08:53-0400 Systolic blood pressure 122 mm[Hg] Radha Itzkowitz DO Work Phone: [facility] 02-09-2024 11:03-0400 Diastolic blood pressure 60 mm[Hg] DO Kristopher Herzog Work Phone: [facility] 02-09-2024 11:03-0400 Heart rate 76 /min DO Kristopher Chuy Work Phone: [facility] 02-09-2024 11:03-0400 Respiratory rate 16 /min DO Kristopher Chuy Work Phone: [facility] 02-09-2024 11:03-0400 SaO2% (BldA) [Mass fraction] 99 % DO Kristopher Chuy Work Phone: [facility] 02-09-2024 11:03-0400 Systolic blood pressure 128 mm[Hg] DO Kristopher Chuy Work Phone: [facility] 02-09-2024 09:32-0400 Body height 154.94 cm DO Kristopher Chuy Work Phone: [facility] 02-09-2024 09:32-0400 Body temperature 99 [degF] DO Kristopher Chuy Work Phone: [facility] 02-09-2024 09:32-0400 Body weight 78.92 kg DO Kristopher Chuy Work Phone: [facility] 12-28-2023 11:17-0400 Diastolic blood pressure 77 mm[Hg] DO Kristopher Chuy Work Phone: [facility] 12-28-2023 11:17-0400 Heart rate 77 /min DO Kristopher Chuy Work Phone: [facility] 12-28-2023 11:17-0400 Respiratory rate 16 /min DO Kristopher Chuy Work Phone: [facility] 12-28-2023 11:17-0400 SaO2% (BldA) [Mass fraction] 99 % DO Kristopher Chuy Work Phone: [facility] 12-28-2023 11:17-0400 Systolic blood pressure 113 mm[Hg] DO Kristopher Chuy Work Phone: [facility] 12-28-2023 08:33-0400 Body height 154.94 cm DO Kristopher Chuy Work Phone: [facility] 12-28-2023 08:33-0400 Body weight 79.83 kg DO Kristopher Chuy Work Phone: [facility] 12-07-2023 10:06-0400 Body height 156.21 cm DO Kristopher Chuy Work Phone: [facility] 12-07-2023 10:06-0400 Body mass index (BMI) [Ratio] 32.7 kg/m2 DO Kristopher Chuy Work Phone: [facility] 12-07-2023 10:06-0400 Body weight 79.83 kg DO Kristopher Chuy Work Phone: [facility] 12-07-2023 10:06-0400 Diastolic blood pressure 74 mm[Hg] DO Kristopher Chuy Work Phone: [facility] 12-07-2023 10:06-0400 Heart rate 79 /min DO Kristopher Chuy Work Phone: [facility] 12-07-2023 10:06-0400 Systolic blood pressure 142 mm[Hg] DO Kristopher Chuy Work Phone: [facility] 12-15-2022 17:21-0400 Body temperature 98.1 [degF] DO Kristopher Chuy Work Phone: [facility] 12-15-2022 17:21-0400 Diastolic blood pressure 77 mm[Hg] DO Kristopher Chuy Work Phone: [facility] 12-15-2022 17:21-0400 Heart rate 83 /min DO Kristopher Chuy Work Phone: [facility] 12-15-2022 17:21-0400 Respiratory rate 16 /min DO Kristopher Chuy Work Phone: [facility] 12-15-2022 17:21-0400 SaO2% (BldA) [Mass fraction] 99 % DO Kristopher Chuy Work Phone: [facility] 12-15-2022 17:21-0400 Systolic blood pressure 158 mm[Hg] DO Kristopher Chuy Work Phone: [facility] 12-15-2022 06:00-0400 Body weight 85.3 kg DO Kristopher Chuy Work Phone: [facility] 12-13-2022 20:01-0400 Diastolic blood pressure 81 mm[Hg] DO Kristopher Chuy Work Phone: [facility] 12-13-2022 20:01-0400 Heart rate 75 /min DO Kristopher Chuy Work Phone: [facility] 12-13-2022 20:01-0400 Respiratory rate 18 /min DO Kristopher Herzog Work Phone: [facility] 12-13-2022 20:01-0400 SaO2% (BldA) [Mass fraction] 99 % DO Kristopher Herzog Work Phone: [facility] 12-13-2022 20:01-0400 Systolic blood pressure 167 mm[Hg] DO Kristopher Chuy Work Phone: [facility] 12-13-2022 13:48-0400 Body height 160.02 cm DO Kristopher Chuy Work Phone: [facility] 12-13-2022 13:48-0400 Body temperature 98.6 [degF] DO Kristopher Chuy Work Phone: [facility] 12-13-2022 13:48-0400 Body weight 88.3 kg DO Kristopher Chuy Work Phone: [facility] 09-23-2022 19:59-0500 Diastolic blood pressure 72 mm[Hg] DO Kristopher Chuy Work Phone: [facility] 09-23-2022 19:59-0500 Heart rate 77 /min DO Kristopher Herzog Work Phone: [facility] 09-23-2022 19:59-0500 Respiratory rate 18 /min DO Kristopher Herzog Work Phone: [facility] 09-23-2022 19:59-0500 SaO2% (BldA) [Mass fraction] 97 % DO Kristopher Herzog Work Phone: [facility] 09-23-2022 19:59-0500 Systolic blood pressure 168 mm[Hg] DO Kristophervince Herzog Work Phone: [facility] 09-23-2022 18:17-0500 Body height 160.02 cm DO Kristopher Herzog Work Phone: [facility] 09-23-2022 18:17-0500 Body temperature 98.7 [degF] DO Kristopher Herzog Work Phone: [facility] 09-23-2022 18:17-0500 Body weight 85.7 kg DO Kristopher Herzog Work Phone: [facility] 07-16-2022 09:56-0500 Body temperature 98.8 [degF] DO Kristopher Herzog Work Phone: [facility] 07-16-2022 09:56-0500 Diastolic blood pressure 70 mm[Hg] DO Kristopher Herzog Work Phone: [facility] 07-16-2022 09:56-0500 Heart rate 79 /min DO Kristopher Chuy Work Phone: [facility] 07-16-2022 09:56-0500 Respiratory rate 17 /min DO Kristophervince Herzog Work Phone: [facility] 07-16-2022 09:56-0500 SaO2% (BldA) [Mass fraction] 98 % DO Kristopher Herzog Work Phone: [facility] 07-16-2022 09:56-0500 Systolic blood pressure 150 mm[Hg] DO Kristopher Herzog Work Phone: [facility] 07-16-2022 08:29-0500 Body height 160.02 cm DO Kristopher Herzog Work Phone: [facility] 07-16-2022 08:29-0500 Body weight 83 kg DO Kristopher Herzog Work Phone: [facility] 06-04-2022 09:13-0400 Body temperature 97.9 [degF] DO Kristopher Herzog Work Phone: [facility] 06-04-2022 09:13-0400 Diastolic blood pressure 64 mm[Hg] DO Kristopher Herzog Work Phone: [facility] 06-04-2022 09:13-0400 Heart rate 93 /min DO Kristopher Herzog Work Phone: [facility] 06-04-2022 09:13-0400 Respiratory rate 20 /min DO Kristopher Herzog Work Phone: [facility] 06-04-2022 09:13-0400 SaO2% (BldA) [Mass fraction] 97 % DO Kristopher Herzog Work Phone: [facility] 06-04-2022 09:13-0400 Systolic blood pressure 134 mm[Hg] DO Kristopher Herzog Work Phone: [facility] 05-29-2022 08:18-0400 Body temperature 98.1 [degF] DO Kristopher Herzog Work Phone: [facility] 05-29-2022 08:18-0400 Diastolic blood pressure 76 mm[Hg] DO Kristopher Chuy Work Phone: [facility] 05-29-2022 08:18-0400 Heart rate 77 /min DO Kristopher Herzog Work Phone: [facility] 05-29-2022 08:18-0400 Respiratory rate 20 /min DO Kristopher Herzog Work Phone: [facility] 05-29-2022 08:18-0400 SaO2% (BldA) [Mass fraction] 98 % DO Kristopher Herzog Work Phone: [facility] 05-29-2022 08:18-0400 Systolic blood pressure 146 mm[Hg] DO Kristopher Herzog Work Phone: [facility] 02-11-2022 08:39-0400 Body weight 0 kg DO Kristopher Herzog Work Phone: [facility] 01-28-2022 16:15-0400 Body height 157.48 cm Tang Henrietta Other [employer] Other 01-28-2022 16:15-0400 Body mass index (BMI) [Ratio] 31.64 kg/m2 Tang Mcclellan Other [employer] Other 01-28-2022 16:15-0400 Body weight 78.47 kg Tang Mcclellan Other [employer] Other Encounters Encounter Date Encounter Type Care Provider Facility Start: 03-22-2025 End: 03-22-2025 Bamboo flowslee ann Branham DPM Work Phone: [facility] Start: 03-22-2025 End: 03-22-2025 Bamboo flowslee ann Branham DPM Work Phone: [facility] Start: 03-22-2025 End: 03-22-2025 Postop follow up visit related to original px Marlon Branham DPM Work Phone: [facility] Comment on above: Surgery follow-up ex amination (Primary Dx); Hallux malleus, right; Right foot pain; Ulcer of great toe, right, limited to breakdown of skin (HCC) Start: 03-22-2025 End: 03-22-2025 ambulatory MARLON BRANHAM Not Available Start: 03-17-2025 End: 03-17-2025 ambulatory Kristopher Herzog DO Work Phone: [facility] Work Phone: Start: 03-17-2025 End: 03-17-2025 Patient encounter procedure Kiersten Qureshi [facility] Work Phone: Start: 03-14-2025 End: 03-14-2025 Bamboo flowsheet Marlon Branham DPM Work Phone: [facility] Start: 03-14-2025 End: 03-14-2025 Bamboo flowsheet Marlon Branham DPM Work Phone: [facility] Start: 03-14-2025 End: 03-14-2025 ambulatory MARLON BRANHAM Not Available Start: 03-14-2025 End: 03-14-2025 Postop follow up visit related to original px Marlon Branham DPM Work Phone: [facility] Comment on above: Surgery follow-up ex amination (Primary Dx); Hallux malleus, right; Right foot pain Start: 03-13-2025 End: 03-13-2025 ambulatory Kristopher Herzog DO Work Phone: [facility] Work Phone: Start: 03-13-2025 End: 03-13-2025 Patient encounter procedure Tita Roberts [facility] Work Phone: Start: 03-09-2025 End: 03-09-2025 Bamboo flowsheet Caro HEWITT Work Phone: [facility] Start: 03-09-2025 End: 03-09-2025 Bamboo flowsheet Caro HEWITT Work Phone: [facility] Start: 03-09-2025 End: 03-09-2025 ambulatory Kristopher Herzog DO Work Phone: [facility] Work Phone: Start: 03-09-2025 End: 03-09-2025 Patient encounter procedure Tita Roberts [facility] Work Phone: Start: 03-09-2025 End: 03-09-2025 Office outpatient new 30 minutes Caro Hugo PA Work Phone: [facility] Comment on above: Acute pain of left k nee (Primary Dx); Primary osteoarthritis of left knee Start: 03-09-2025 End: 03-09-2025 ambulatory CARO HUGO Not Available Start: 03-07-2025 End: 03-07-2025 Bamboo flowsheet Marlon Branham DPM Work Phone: [facility] Start: 03-07-2025 End: 03-07-2025 Bamboo flowsheet Marlon Branham DPM Work Phone: [facility] Start: 03-07-2025 End: 03-07-2025 Postop follow up visit related to original px Marlon Branham DPM Work Phone: [facility] Comment on above: Surgery follow-up ex amination (Primary Dx); Hallux malleus, right; Right foot pain; Ulcer of great toe, right, limited to breakdown of skin (HCC) Start: 03-07-2025 End: 03-07-2025 ambulatory MARLON BRANHAM Not Available Start: 02-22-2025 End: 02-22-2025 Telephone encounter Venita Marques [employer] Work Phone: [facility] Start: 02-22-2025 End: 02-22-2025 ambulatory Kristopher Herzog DO Work Phone: [facility] Work Phone: Start: 02-22-2025 End: 02-22-2025 Patient encounter procedure RiversJaye Roberts [facility] Work Phone: Start: 02-16-2025 End: 02-16-2025 Bamboo flowsheet Marlon Branham DPM Work Phone: [facility] Start: 02-16-2025 End: 02-16-2025 Bamboo flowsheet Marlon Branham DPM Work Phone: [facility] Start: 02-16-2025 End: 02-16-2025 ambulatory MARLON BRANHAM Not Available Start: 02-16-2025 End: 02-16-2025 Office outpatient visit 15 minutes Maroln Branham DPM Work Phone: [facility] Comment on above: Hallux malleus, righ t (Primary Dx); Right foot pain Start: 02-13-2025 End: 02-13-2025 Office outpatient visit 15 minutes Venita Marques [employer] Work Phone: [facility] Comment on above: Acute pain of left k nee (Primary Dx); Primary osteoarthritis of left knee; Hallux malleus of right foot; Callus; Preoperative clearance Start: 02-13-2025 End: 02-13-2025 Preoperative state Venita Marques [employer] Work Phone: [facility] Start: 02-13-2025 End: 02-13-2025 ambulatory VENITA MARQUES Not Available Start: 02-09-2025 End: 02-09-2025 Patient encounter procedure Kiersten Qureshi [facility] Work Phone: Start: 02-01-2025 End: 02-01-2025 Bamboo flowsheet Marlon Branham DPM Work Phone: [facility] Start: 02-01-2025 End: 02-01-2025 Bamboo flowsheet Marlon Branham DPM Work Phone: [facility] Start: 02-01-2025 End: 02-01-2025 ambulatory Kristohper Herzog DO Work Phone: [facility] Work Phone: Start: 02-01-2025 End: 02-01-2025 Patient encounter procedure Kristopher Herzog DO Work Phone: [facility] Work Phone: Start: 02-01-2025 End: 02-01-2025 ambulatory MARLON BRANHAM Not Available Start: 02-01-2025 End: 02-01-2025 Office outpatient visit 15 minutes Marlon Branham DPM Work Phone: [facility] Comment on above: Onychomycosis (Prima ry Dx); Corns and callosities; Hallux malleus, right; Type II diabetes mellitus with neurological manifestations (CMS/HCC); Pain in both feet Start: 01-11-2025 End: 01-11-2025 Clinisync Result Encounter Kristopher Herzog DO Work Phone: [facility] External Department Unsolicited Start: 01-11-2025 End: 01-11-2025 Clinisync Result Encounter Kristopher Herzog DO Work Phone: [facility] External Department Unsolicited Start: 01-09-2025 End: 01-09-2025 Bamboo flowsheet Kristopher Herzog DO Work Phone: [facility] Start: 01-09-2025 End: 01-09-2025 Bamboo flowsheet Kristopher Herzog DO Work Phone: [facility] Start: 01-09-2025 End: 01-09-2025 Office outpatient visit 40 minutes Kristopher Herzog DO Work Phone: [facility] Comment on above: Medicare annual well ness visit, subsequent (Primary Dx); Advance care planning; Type 2 diabetes mellitus with stage 3a chronic kidney disease, with long-term current use of insulin (HCC) (CMS/HCC); Diabetic peripheral neuropathy associated with type 2 diabetes mellitus (CMS/HCC); residential current use of insulin (CMS/HCC); Mixed hyperlipidemia (CMS/HCC); Steatosis of liver; Primary hypertension (CMS/HCC); Chronic deep vein thrombosis (DVT) of femoral vein of left lower extremity (CMS/HCC); Spinal stenosis of lumbosacral region; 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 Start: 01-09-2025 End: 01-09-2025 Patient encounter procedure Kristopher Herzog DO Work Phone: [facility] Work Phone: Start: 01-09-2025 End: 01-09-2025 ambulatory KRISTOPHER HERZOG Not Available Start: 01-05-2025 End: 01-05-2025 Clinisync Result Encounter Kristopher Herzog DO Work Phone: [facility] External Department Unsolicited Start: 01-05-2025 End: 01-05-2025 Clinisync Result Encounter Kristopher Herzog DO Work Phone: [facility] External Department Unsolicited Start: 01-04-2025 End: 01-04-2025 ambulatory Kristopher Herzog DO Work Phone: [facility] Work Phone: Start: 01-04-2025 End: 01-04-2025 Patient encounter procedure Kristopher Herzog DO Work Phone: [facility] Work Phone: Start: 12-16-2024 End: 12-16-2024 ambulatory RADHA H ITZKOWITZ Not Available Start: 12-16-2024 End: 12-16-2024 Office outpatient visit 25 minutes Radha H Itzkowitz DO Work Phone: [facility] Comment on above: Axillary lymphadenop athy (Primary Dx); H/O diagnostic mammography Start: 12-14-2024 End: 12-14-2024 Bamboo flowsheet Kristopher Herzog DO Work Phone: [facility] Start: 12-14-2024 End: 12-14-2024 Bamboo flowsheet Kristopher Herzog DO Work Phone: [facility] Start: 12-14-2024 End: 12-14-2024 Office outpatient visit 40 minutes Kristopher Herzog DO Work Phone: [facility] Comment on above: Diabetic peripheral neuropathy associated with type 2 diabetes mellitus (CMS/HCC) (Primary Dx); 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); Mixed hyperlipidemia (CMS/HCC); Hypercoagulable state (CMS/HCC); residential current use of 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; Steatosis of liver; Primary hypertension (CMS/HCC); Venous insufficiency; Primary osteoarthritis of left knee Start: 12-14-2024 End: 12-14-2024 ambulatory KRISTOPHER HERZOG Not Available Start: 12-07-2024 End: 12-07-[address] Facility:[facility] Start: 12-07-2024 End: 12-07-2024 Patient encounter procedure Kristopher Herzog DO Work Phone: [facility] Comment on above: Leg numbness (Primar y Dx) Start: 11-30-2024 End: 11-30-2024 ambulatory [facility] Work Phone: Start: 11-30-2024 End: 11-30-2024 Patient encounter procedure [facility] Work Phone: Start: 11-23-2024 End: 11-23-2024 ambulatory VENITA L DIDION Not Available Start: 11-15-2024 End: 11-15-2024 ambulatory VENITA L DIDION Not Available Start: 11-02-2024 End: 11-02-2024 ambulatory [facility] Work Phone: Start: 11-02-2024 End: 11-02-2024 Patient encounter procedure [facility] Work Phone: Start: 10-31-2024 End: 10-31-2024 ambulatory MARLON BRANHAM Not Available Start: 10-27-2024 End: 10-27-2024 ambulatory VENITA L DIDION Not Available Start: 10-25-2024 End: 10-25-2024 ambulatory VENITA L DINAH Not Available Start: 10-25-2024 End: 10-25-2024 Office outpatient visit 25 minutes Venita Marques [employer] Work Phone: [facility] Comment on above: Nonintractable heada shelby, unspecified chronicity pattern, unspecified headache type (Primary Dx); Neck pain; Paresthesia of left arm; Numbness of fingers Start: 10-23-2024 Non-patient / Non-visit [facility] Work Phone: Start: 10-07-2024 End: 10-07-2024 ambulatory [facility] Work Phone: Start: 10-07-2024 End: 10-07-2024 Patient encounter procedure [facility] Work Phone: Start: 10-05-2024 End: 10-05-2024 ambulatory [facility] Work Phone: Start: 10-05-2024 End: 10-05-2024 Patient encounter procedure [facility] Work Phone: Start: 10-03-2024 End: 10-03-2024 Office outpatient visit 25 minutes Kristopher Herzog DO Work Phone: [facility] Comment on above: Primary osteoarthrit is of right knee (Primary Dx); Hypercoagulable state (CMS/HCC); Diabetic peripheral neuropathy associated with type 2 diabetes mellitus (CMS/HCC); Primary hypertension (CMS/HCC); Ulcerative colitis without complications, unspecified location (CMS/HCC); 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); residential current use of 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; Sacral ulcer, limited to breakdown of skin (CMS/HCC) Start: 10-03-2024 End: 10-03-2024 ambulatory KRISTOPHER HERZOG Not Available Start: 09-09-2024 End: 09-09-2024 ambulatory [facility] Work Phone: Start: 09-09-2024 End: 09-09-2024 Patient encounter procedure [facility] Work Phone: Start: 08-03-2024 End: 08-03-2024 Patient encounter procedure [facility] Work Phone: Start: 08-01-2024 End: 08-01-2024 Bamboo flowsheet Marlon Branham DPM Work Phone: [facility] Start: 08-01-2024 End: 08-01-2024 Bamboo flowsheet Marlon Branham DPM Work Phone: [facility] Start: 08-01-2024 End: 08-01-2024 Office outpatient visit 10 minutes Marlon Branham DPM Work Phone: [facility] Comment on above: 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) (Primary Dx); Onychomycosis; Corns and callosities; Hallux malleus, left; Pain in both feet Start: 08-01-2024 End: 08-01-2024 ambulatory MARLON BRANHAM Not Available Start: 07-04-2024 End: 07-04-2024 ambulatory [facility] Work Phone: Start: 07-04-2024 End: 07-04-2024 Patient encounter procedure [facility] Work Phone: Start: 06-29-2024 End: 06-29-2024 ambulatory [facility] Work Phone: Start: 06-29-2024 End: 06-29-2024 Patient encounter procedure [facility] Work Phone: Start: 06-22-2024 End: 06-22-2024 Office outpatient visit 25 minutes Adam Rodriguez [employer] Work Phone: [facility] Comment on above: Primary hypertension (CMS/HCC) (Primary Dx); Mixed hyperlipidemia (CMS/HCC); Obstructive sleep apnea syndrome; Peripheral venous insufficiency; Chronic deep vein thrombosis (DVT) of femoral vein of left lower extremity (CMS/HCC); 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 machines and devices; Diabetic peripheral neuropathy associated with type 2 diabetes mellitus ([facility]); Gastroesophageal reflux disease without esophagitis; Hypercoagulable state ([facility]); residential current use of 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; 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 ([facility]); OAB (overactive bladder); Class 1 obesity; Spinal stenosis of lumbosacral region; Ulcerative colitis without complications, unspecified location ([facility]); Need for immunization against influenza; Atrophic vaginitis; Bilateral leg edema Start: 06-22-2024 End: 06-22-2024 ambulatory ADAM RODRIGUEZ Not Available Start: 06-17-2024 End: 06-18-2024 Orders Only Adam Rodriguez [employer] Work Phone: [facility] External Department Unsolicited Start: 06-06-2024 End: 06-06-2024 ambulatory [facility] Work Phone: Start: 06-06-2024 End: 06-06-2024 Patient encounter procedure [facility] Work Phone: Start: 05-09-2024 End: 05-09-2024 ambulatory DO Kristopher Chuy Work Phone: [facility] Work Phone: Start: 05-09-2024 End: 05-09-2024 Patient encounter procedure DO Kristophervince Herzog Work Phone: [facility] Work Phone: Start: 04-29-2024 End: 04-29-2024 Office outpatient visit 25 minutes Radha H Luba DO Work Phone: [facility] Comment on above: Axillary lymphadenop athy (Primary Dx) Start: 04-29-2024 End: 04-29-2024 ambulatory RADHA H ITZKOWITZ Not Available Start: 04-27-2024 End: 04-27-2024 Bamboo flowsheet Marlon Branham DPM Work Phone: [facility] Start: 04-27-2024 End: 04-27-2024 Bamboo flowsheet Marlon Branham DPM Work Phone: [facility] Start: 04-27-2024 End: 04-27-2024 ambulatory MARLON BRANHAM Not Available Start: 04-27-2024 End: 04-27-2024 Patient encounter procedure Marlon Branham DPM Work Phone: [facility] Comment on above: 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) (Primary Dx); Onychomycosis; Corns and callosities; Pain in both feet Start: 04-14-2024 End: 04-14-2024 ambulatory DO Kristopher Herzog Work Phone: [facility] Work Phone: Start: 04-14-2024 End: 04-14-2024 Patient encounter procedure DO Kristopher Herzog Work Phone: [facility] Work Phone: Start: 03-14-2024 End: 03-14-2024 ambulatory DO Kristopher Herzog Work Phone: [facility] Work Phone: Start: 03-14-2024 End: 03-14-2024 Patient encounter procedure DO Kristopher Herzog Work Phone: [facility] Work Phone: Start: 02-17-2024 End: 02-17-2024 ambulatory DO Kristopher Belloman Work Phone: [facility] Work Phone: Start: 02-17-2024 End: 02-17-2024 Patient encounter procedure DO Kristopher Belloman Work Phone: [facility] Work Phone: Start: 02-09-2024 End: 02-09-2024 Emergency department patient visit DO Kristopher Herzog Work Phone: [facility]-Emergency Room Work Phone: Start: 01-20-2024 End: 01-20-2024 ambulatory DO Kristopher Herzog Work Phone: [facility] Work Phone: Start: 01-20-2024 End: 01-20-2024 Patient encounter procedure DO Kristopher Herzog Work Phone: [facility] Work Phone: Start: 01-05-2024 End: 01-05-2024 Patient encounter procedure DO Kristopher Herzog Work Phone: [facility] Work Phone: Start: 12-28-2023 Non-patient / Non-visit DO Preet Herzog Work Phone: [facility] Work Phone: Start: 12-28-2023 End: 12-28-2023 Admission to same day surgery center DO Kristopher Herzog Work Phone: [facility]Digestive [facility] Work Phone: Start: 12-28-2023 End: 12-28-2023 ambulatory DO Kristopher Chuy Work Phone: [facility] Work Phone: Start: 12-14-2023 End: 12-14-2023 ambulatory DO Kristopher Herzog Work Phone: [facility] Work Phone: Start: 12-14-2023 End: 12-14-2023 Patient encounter procedure DO Kristopher Herzog Work Phone: [facility] Work Phone: Start: 12-07-2023 End: 12-07-2023 ambulatory DO Kristopher Herzog Work Phone: [facility] Work Phone: Start: 12-07-2023 End: 12-07-2023 Patient encounter procedure DO Kristopher Herzog Work Phone: [facility] Work Phone: Start: 12-07-2023 End: 12-07-2023 ambulatory DO Kristopher Herzog Work Phone: [facility] Work Phone: Start: 12-07-2023 End: 12-07-2023 Patient encounter procedure DO Kristopher Herzog Work Phone: [facility] G[facility] Work Phone: Start: 11-09-2023 End: 11-09-2023 ambulatory DO Kristopher Herzog Work Phone: [facility] Work Phone: Start: 11-09-2023 End: 11-09-2023 Patient encounter procedure DO Kristopher Herzog Work Phone: [facility] Work Phone: Start: 10-05-2023 ([facility] R A/c) [facility] Re peat A/C Lauren Vance [facility] Start: 10-05-2023 End: 10-05-2023 ambulatory DO Kristopher Herzog Work Phone: [employer] [facility] [employer] Other Start: 10-05-2023 End: 10-05-2023 Discharged Recurring DO Kristopher Herzog Work Phone: [facility] Work Phone: Start: 09-29-2023 End: 09-29-2023 ambulatory Lauren Vance Other [employer] [facility] [employer] Other Start: 09-29-2023 Telephone encounter Lauren Vance [facility] Start: 09-24-2023 Telephone encounter Kimberly Berger LPN [facility] Start: 09-07-2023 ([facility] R A/c) [facility] Re peat A/C Tita Roberts [facility] Start: 09-07-2023 End: 09-07-2023 ambulatory Tita Roberts Other [employer] Other Start: 08-11-2023 ([facility] R A/c) [facility] Re peat A/C Tita Roberts [facility] Start: 08-11-2023 End: 08-11-2023 ambulatory Rivers Armando Other [employer] Other Start: 07-14-2023 ([facility] R A/c) [facility] Re peat A/C Tita Roberts [facility] Start: 07-14-2023 End: 07-14-2023 ambulatory Tita Roberts Other [employer] Other Start: 06-15-2023 ([facility] R A/c) [facility] Re peat A/C Tita Roberts [facility] Start: 06-15-2023 End: 06-15-2023 ambulatory Tita Roberts Other [employer] Other Start: 06-03-2023 End: 06-03-2023 ambulatory DO Kristopher Herzog Work Phone: [facility] Work Phone: Start: 06-03-2023 End: 06-03-2023 Patient encounter procedure DO Kristopher Herzog Work Phone: [facility]-Ultrasound Cntr for Breast Car Start: 05-25-2023 Registered Recurring DO Manuela Herzog Work Phone: [facility] Work Phone: Start: 04-30-2023 ([facility] R A/c) [facility] Re peat A/C Lauren Fitt [facility] Start: 04-30-2023 End: 04-30-2023 ambulatory Lauren Fitt Other [employer] Other Start: 04-08-2023 ([facility] R A/c) [facility] Re peat A/C Kiersten Conejos [facility] Start: 04-08-2023 End: 04-08-2023 ambulatory Kiersten Conejos Other [employer] Other Start: 03-23-2023 ([facility] R A/c) [facility] Re peat A/C Kiersten Conejos [facility] Start: 03-23-2023 End: 03-23-2023 ambulatory Kiersten Conejos Other [employer] Other Start: 03-11-2023 ([facility] R A/c) [facility] Re peat A/C Kiersten Titus [facility] Start: 03-11-2023 End: 03-11-2023 ambulatory Kiersten Conejos Other [employer] Other Start: 02-23-2023 ([facility] R A/c) [facility] Re peat A/C Kiersten Titus [facility] Start: 02-23-2023 End: 02-23-2023 ambulatory Kiersten Conejos Other [employer] Other Start: 12-17-2022 End: 12-17-2022 ambulatory DO Kristopher Herzog Work Phone: [facility] Work Phone: Start: 12-17-2022 End: 12-17-2022 Departed Referred DO Kristopher Herzog Work Phone: [facility]-Lab [facility] Work Phone: Start: 12-15-2022 ambulatory Facility:[id number] Start: 12-13-2022 End: 12-15-2022 Evaluation and management of inpatient DO Kristopher Herzog Work Phone: [facility] Work Phone: Start: 12-13-2022 observation encounter DO Wilfrido Herzog Work Phone: [facility] Work Phone: Start: 12-10-2022 ([facility] R A/c) [facility] Re peat A/C Kiersten Qureshi [facility] Start: 12-10-2022 End: 12-10-2022 ambulatory Kiersten Qureshi Other [employer] Other Start: 12-10-2022 Registered Recurring DO Manuela Herzog Work Phone: [facility] Work Phone: Start: 12-01-2022 End: 12-01-2022 ambulatory DO Kristopher Herzog Work Phone: [facility] Work Phone: Start: 12-01-2022 End: 12-01-2022 Patient encounter procedure DO Kristopher Herzog Work Phone: [facility] Work Phone: Start: 11-12-2022 ([facility] R A/c) [facility] Re peat A/C Kiersten Qureshi [facility] Start: 11-12-2022 End: 11-12-2022 ambulatory Kiersten Qureshi Other [employer] Other Start: 11-12-2022 Registered Recurring DO Manuela Herzog Work Phone: [facility] Work Phone: Start: 10-15-2022 ([facility] R A/c) [facility] Re peat A/C Kierstenfredi Qureshi [facility] Start: 10-15-2022 End: 10-15-2022 ambulatory Kiersten Conejos Other [employer] Other Start: 09-29-2022 End: 09-29-2022 ambulatory Lauren Reggiet Other [employer] Other Start: 09-29-2022 Telephone encounter Laurendale Carnes [facility] Start: 09-23-2022 End: 09-23-2022 Emergency department patient visit DO Kristopher Herzog Work Phone: [facility]-Emergency Room Work Phone: Start: 09-17-2022 ([facility] R A/c) [facility] Re peat A/C Kierstenfredi Qureshi [facility] Start: 09-17-2022 End: 09-17-2022 ambulatory Kierstenfredi Llamasber Other [employer] [facility] [employer] Other Start: 09-17-2022 Registered Recurring DO Manuela Herzog Work Phone: [facility] Work Phone: Start: 09-01-2022 End: 09-01-2022 ambulatory Laurendale Paredest Other [employer] Other Start: 09-01-2022 Telephone encounter Lauren Carnes [facility] Start: 08-20-2022 ([facility] R A/c) [facility] Re peat A/C Kierstenfredi Qureshi [facility] Start: 08-20-2022 End: 08-20-2022 ambulatory Kiersten Titus Other [employer] Other Start: 07-24-2022 ([facility] R A/c) [facility] Re peat A/C Olu Rene [facility] Start: 07-24-2022 End: 07-24-2022 ambulatory Olu Rene Other [employer] Other Start: 07-16-2022 End: 07-16-2022 Emergency department patient visit DO Kristopher Herzog Work Phone: [facility]-Emergency Room Start: 06-26-2022 ([facility] R A/c) [facility] Re peat A/C Lauren Fitt [facility] Start: 06-26-2022 End: 06-26-2022 ambulatory Lauren Vance Other [employer] Other Start: 06-26-2022 Registered Recurring DO Manuela Herzog Work Phone: [facility] Start: 06-23-2022 End: 06-23-2022 ambulatory DO Kristopher Herzog Work Phone: [facility] Work Phone: Start: 06-23-2022 End: 06-23-2022 Patient encounter procedure DO Kristopher Herzog Work Phone: [facility]-Ultrasound Main [place] Start: 06-09-2022 End: 06-09-2022 Patient encounter procedure DO Kristopher Herzog Work Phone: [facility] [facility] for [facility] Car Start: 06-05-2022 ([facility] R A/c) [facility] Re peat A/C Lauren Fitt [facility] Start: 06-05-2022 End: 06-05-2022 ambulatory Tang Mcclellan Other [employer] Other Start: 06-05-2022 Telephone encounter Tang Santana [facility] Gastroenterology Start: 06-05-2022 Registered Recurring DO Manuela Herzog Work Phone: [facility] Start: 06-04-2022 End: 06-04-2022 Discharged Recurring DO Kristopher Herzog Work Phone: [facility] Ctr-Infusion Therapy - O/P Start: 05-29-2022 End: 05-29-2022 ambulatory DO Kristopher Herzog Work Phone: [facility] Ctr Work Phone: Start: 05-29-2022 End: 05-29-2022 Patient encounter procedure DO Kristopher Herzog Work Phone: [facility] Ctr-Lab Main [facility] Start: 05-29-2022 Registered Recurring DO Manuela Herzog Work Phone: [facility] Ctr-Infusion Therapy - O/P Start: 05-22-2022 Registered Recurring DO Manuela Herzog Work Phone: [facility] Coordinated [facility] Start: 05-22-2022 ([facility] R A/c) [facility] Re peat A/C Lauren Fitt [facility] Start: 05-22-2022 End: 05-22-2022 ambulatory Lauren Fitt Other [facility] Other Start: 05-20-2022 End: 05-20-2022 Patient encounter procedure DO Kristopher Herzog Work Phone: [facility] Ctr-Lab [facility] Start: 05-06-2022 ([facility] R A/c) [facility] Re peat A/C Lauren Fitt [facility] Start: 05-06-2022 End: 05-06-2022 ambulatory Lauren Fitt Other [facility] Other Start: 04-08-2022 ([facility] R A/c) [facility] Re peat A/C Lauren Fitt [facility] Start: 04-08-2022 End: 04-08-2022 ambulatory Lauren Fitt Other [facility] Other Start: 03-13-2022 ([facility] R A/c) [facility] Re peat A/C Lauren Fitt [facility] Start: 03-13-2022 End: 03-13-2022 ambulatory Lauren Fitt Other [facility] Other Start: 02-28-2022 End: 02-28-2022 Patient encounter procedure DO Kristopher Herzog Work Phone: [facility] Ctr-Digestive Health Start: 02-27-2022 ([facility] R A/c) [facility] Re peat A/C Lauren Fitt [facility] Start: 02-27-2022 End: 02-27-2022 ambulatory Lauren Fitt Other [facility] Other Start: 02-26-2022 End: 02-26-2022 Patient encounter procedure DO Kristopher Herzog Work Phone: [facility]-Pre-Surgical Testing Start: 02-17-2022 ([facility] R A/c) [facility] Re peat A/C Lauren Fitt [facility] Start: 02-17-2022 End: 02-17-2022 ambulatory Lauren Fitt Other [facility] Other Start: 02-11-2022 End: 02-11-2022 ambulatory Antonio Thompson Other [facility] Other Start: 02-11-2022 Telephone encounter Antonio Thompson [facility] Start: 01-28-2022 End: 01-28-2022 ambulatory Tang Mcclellan Other [facility] Other Start: 01-28-2022 Office outpatient vi sit 15 minutes Tang Mcclellan [facility] Start: 01-21-2022 ([facility] R A/c) [facility] Re peat A/C Lauren Fitt [facility] Start: 01-21-2022 End: 01-21-2022 ambulatory Lauren Fitt Other [facility] Other Start: 01-09-2022 End: 01-09-2022 ambulatory Tang Mcclellan Other [facility] Other Start: 01-09-2022 Telephone encounter Tang christianson [facility] Start: 01-06-2022 ([facility] R A/c) [facility] Re peat A/C Lauren Fitt [facility] Start: 01-06-2022 End: 01-06-2022 ambulatory Lauren Fitt Other [facility] Other Start: 12-23-2021 ([facility] R A/c) [facility] Re peat A/C Lauren Fitt [facility] Start: 12-23-2021 End: 12-23-2021 ambulatory Lauren Fitt Other [facility] Other Start: 12-11-2021 ([facility] R A/c) [facility] Re peat A/C Lauren Fitt [facility] Start: 12-11-2021 End: 12-11-2021 ambulatory Lauren Fitt Other [facility] Other Start: 11-28-2021 End: 11-28-2021 ambulatory Tang Mcclellan Other [facility] Other Start: 11-28-2021 Telephone encounter Tang christianson [facility] Start: 11-27-2021 ([facility] R A/c) [facility] Re peat A/C Lauren Fitt [facility] Start: 11-27-2021 End: 11-27-2021 ambulatory Lauren Fitt Other [facility] Other Start: 11-25-2021 End: 11-25-2021 ambulatory Lauren Fitt Other [facility] Other Start: 11-25-2021 Telephone encounter Lauren Fitt [facility] Start: 11-14-2021 End: 11-14-2021 ambulatory Lauren Fitt Other [facility] Other Start: 11-14-2021 Telephone encounter Lauren Fitt [facility] Start: 11-12-2021 ([facility] R A/c) [facility] Re peat A/C Lauren Fitt [facility] Start: 11-12-2021 End: 11-12-2021 ambulatory Lauren Fitt Other [facility] Other Start: 10-31-2021 ([facility] R A/c) [facility] Re peat A/C Lauren Fitt [facility] Start: 10-31-2021 End: 10-31-2021 ambulatory Lauren Fitt Other [facility] Other Start: 10-14-2021 ([facility] R A/c) [facility] Re peat A/C Lauren Fitt [facility] Start: 10-14-2021 End: 10-14-2021 ambulatory Lauren Fitt Other [facility] Other Start: 10-08-2021 End: 10-08-2021 ambulatory Lauren Fitt Other [facility] Other Start: 10-08-2021 Telephone encounter Lauren Fitt [facility] Start: 09-30-2021 ([facility] R A/c) [facility] Re peat A/C Lauren Fitt [facility] Start: 09-30-2021 End: 09-30-2021 ambulatory Lauren Fitt Other [facility] Other Start: 09-12-2021 ([facility] R A/c) [facility] Re peat A/C Lauren Fitt [facility] Start: 09-12-2021 End: 09-12-2021 ambulatory Lauren Fitt Other [employer] Other Start: 08-29-2021 ([facility] R A/c) [facility] Re peat A/C Lauren Fitt [facility] Start: 08-29-2021 End: 08-29-2021 ambulatory Lauren Fitt Other [employer] Other Start: 08-15-2021 ([facility] R A/c) [facility] Re peat A/C Lauren Fitt [facility] Start: 08-15-2021 End: 08-15-2021 ambulatory Lauren Fitt Other [employer] Other Start: 08-01-2021 ([facility] R A/c) [facility] Re peat A/C Lauren Fitt [facility] Start: 08-01-2021 End: 08-01-2021 ambulatory Lauren Fitt Other [facility] Other Start: 07-15-2021 ([facility] R A/c) [facility] Re peat A/C Lauren Fitt [facility] Start: 07-15-2021 End: 07-15-2021 ambulatory Lauren Fitt Other [employer] Other Start: 07-03-2021 ([facility] R A/c) [facility] Lauren Fitt [facility] Start: 07-03-2021 End: 07-03-2021 ambulatory Lauren Fitt Other [facility] Other Start: 07-03-2021 Telephone encounter Antonio ACUNA [facility] Start: 06-19-2021 ([facility] R A/c) [facility] Re peat A/C Lauren Vance [facility] Start: 05-28-2021 ([facility] R A/c) [facility] Re peat A/C Lauren Vance [facility] Start: 05-21-2021 Telephone encounter Lauren Carnes [facility] Start: 05-15-2021 ([facility] R A/c) [facility] Re peat A/C Lauren Vance [facility] Start: 05-15-2021 Telephone encounter Lauren Carnes [facility] Procedures Date Procedure Procedure Detail Performing Clinician Start: 03-07-2025 Radex foot complete minimum 3 views Marlon Branham DPM Work Phone: Start: 02-16-2025 Radex foot complete minimum 3 views Marlon Branham DPM Work Phone: Start: 02-13-2025 Radiologic examinati on knee 3 views Venita Marques [employer] Work Phone: Start: 01-11-2025 ALL CBC WITH AUTO DIFF Kristopher Herzog DO Work Phone: Start: 01-05-2025 ALL BASIC METABOLIC PANEL Kristopher Herzog DO Work Phone: Start: 12-07-2024 End: 12-07-2024 Mammography Kristopher Herzog DO Work Phone: Start: 06-17-2024 Comprehensive metabo lic panel Adam Rodriguez [employer] Work Phone: Start: 06-17-2024 Lipid panel Adam Rodriguez [employer] Work Phone: Start: 06-17-2024 SPECIMEN STATUS REPORT Adam Rodriguez [employer] Work Phone: Start: 04-29-2024 Mammography Radha It whitleykowitz DO Work Phone: Start: 02-09-2024 Urine culture [...] of lower limb veins DO Kristopher Herzog Work Phone: Start: 06-09-2022 Ultrasonography of l eft breast DO Kristopher Herzog Work Phone: Start: 02-28-2022 Esophageal manometry DO Kristopher Herzog Work Phone: Start: 07-05-2016 Colonoscopy Kimberly Lao ASSISTANT CASE MANAGER Plan of Treatment Date Care Activity Detail Author Start: 12-27-2033 Screening for malign ant neoplasm of colon [facility] Start: 07-05-2026 Screening for malign ant neoplasm of colon [facility] Start: 01-09-2026 Medicare Annual Well ness (AWV) Medicare Annual Wellness (AWV) [facility] Start: 12-21-2025 End: 12-21-2025 Patient encounter procedure [facility] Start: 12-07-2025 Screening for malign ant neoplasm of breast Mammogram [facility] Start: 06-17-2025 Urine screening for protein Diabetes: Urine Protein Screening [facility] Start: 06-07-2025 End: 06-07-2025 Patient encounter procedure [facility] Start: 06-02-2025 Glaucoma screening Diabetes: R etinopathy Screening [facility] Start: 05-10-2025 End: 05-10-2025 Patient encounter procedure [facility] Start: 04-29-2025 Screening for malign ant neoplasm of breast Mammogram [facility] Start: 04-24-2025 Influenza vaccination Influenza Vacc ine (#1) [facility] Start: 04-19-2025 End: 04-19-2025 Patient encounter procedure [facility] Start: 04-11-2025 Hemoglobin A1c measurement Diabetes: Hemoglobin A1C [facility] Start: 04-05-2025 End: 04-05-2025 Patient encounter procedure 04/05/2025 9:30 AM EDT Office Visit [facility] [address] [place] [address] Marlon Branham DPM [address] [place] [address] [facility] Start: 03-22-2025 End: 03-22-2025 Patient encounter procedure [facility] Comment on above: Arrived Start: 03-20-2025 End: 03-20-2025 Patient encounter procedure 03/20/2025 4:00 PM EDT Office Visit [facility] [address] [place] [address] Brandy Salmeron [address] [place] [address] [facility] Start: 03-14-2025 End: 03-14-2025 Patient encounter procedure 03/14/2025 9:00 AM EDT Office Visit [facility] [address] [place] [phone] Marlon Branham, DPM [address] [place] [address] [facility] Start: 03-09-2025 End: 03-09-2025 Patient encounter procedure [facility] Comment on above: Acute pain of left k nee (Primary Dx); Primary osteoarthritis of left knee Start: 03-07-2025 End: 03-07-2025 Patient encounter procedure [facility] Comment on above: Arrived Start: 03-04-2025 Urine screening for protein Diabetes: Urine Protein Screening [facility] Start: 02-01-2025 End: 02-01-2025 Patient encounter procedure 02/01/2025 8:30 AM EDT Procedure Visit [facility] [address] [place] [phone] Marlon Branham, DPM [address] [place] [address] [facility] Start: 01-09-2025 End: 01-09-2025 Patient encounter procedure [facility] Comment on above: Arrived Start: 12-27-2024 Hemoglobin A1c measurement Diabetes: Hemoglobin A1C [facility] Start: 12-16-2024 End: 02-15-2026 MG Breast - bilateral Diagnostic Bilateral diagnostic mammogram Imaging Routine Axillary lymphadenopathy H/O diagnostic mammography Expected: 12/16/2024, Expires: 02/15/2026 [facility] Work Phone: Comment on above: Expected: 12/16/2024 , Expires: 02/15/2026 Start: 12-16-2024 End: 12-16-2025 US UPPER EXTREMITY NON-VASC LEFT US UPPER EXTREMITY NON-VASC LEFT Imaging Routine Axillary lymphadenopathy H/O diagnostic mammography Expected: 12/16/2024, Expires: 12/16/2025 [facility] Comment on above: Expected: 12/16/2024 , Expires: 12/16/2025 Start: 12-16-2024 End: 12-16-2024 Patient encounter procedure 12/16/2024 9:00 AM EDT Office Visit [facility] [address] [place] [address], DO [address] [place] [address] [facility] Start: 12-14-2024 End: 12-14-2024 Patient encounter procedure 12/14/2024 8:45 AM EDT Office Visit [facility] [address] [place] [phone] Kristopher Herzog, DO [address] [place] [address] Arrived [facility] Comment on above: Arrived Start: 12-06-2024 End: 06-29-2025 DBT Breast - bilateral diagnostic Bilateral diagnostic mammogram with tomosynthesis Imaging Routine Axillary lymphadenopathy Expected: 12/06/2024 (Approximate), Expires: 06/29/2025 [facility] Work Phone: Comment on above: Expected: 12/06/2024 (Approximate), Expires: 06/29/2025 Start: 12-06-2024 Screening for malign ant neoplasm of breast Mammogram [facility] Start: 12-06-2024 End: 04-29-2025 US UPPER EXTREMITY NON-VASC LEFT US UPPER EXTREMITY NON-VASC LEFT Imaging Routine Axillary lymphadenopathy Expected: 12/06/2024, Expires: 04/29/2025 [facility] Comment on above: Expected: 12/06/2024 , Expires: 04/29/2025 Start: 12-02-2024 Medicare Annual Well ness (AWV) Medicare Annual Wellness (AWV) [facility] Start: 10-31-2024 End: 10-31-2024 Patient encounter procedure 10/31/2024 8:00 AM EDT Procedure Visit [facility] [address] [place] [phone] Marlon Branham DPM [address] [place] [address] [facility] Start: 10-25-2024 End: 01-25-2025 CT Head WO contrast CT head wo IV contrast Imaging Routine Nonintractable headache, unspecified chronicity pattern, unspecified headache type Neck pain Paresthesia of left arm Numbness of fingers Expected: 10/25/2024 (Approximate), Expires: 01/25/2025 [facility] Comment on above: Expected: 10/25/2024 (Approximate), Expires: 01/25/2025 Start: 10-25-2024 End: 10-25-2025 XR Cervical spine 2 or 3 Views [facility] Work Phone: Comment on above: Expected: 10/25/2024 , Expires: 10/25/2025 Start: 10-03-2024 End: 10-03-2024 Patient encounter procedure 10/03/2024 8:45 AM EST Office Visit [facility] [address] [place] [phone] Kristopher Herzog DO [address] [place] [address] [facility] Start: 09-24-2024 End: 12-21-2024 Basic metabolic 1998 panel - Serum or Plasma Basic metabolic panel Lab Routine Primary hypertension ([facility]) Diabetic peripheral neuropathy associated with type 2 diabetes mellitus ([facility]/HCC) Expected: 09/24/2024, Expires: 12/21/2024 [facility] Comment on above: Expected: 09/24/2024 , Expires: 12/21/2024 Start: 09-24-2024 End: 12-21-2024 Hemoglobin a1c with eag Hemoglobin a1c with eag Lab Routine Diabetic peripheral neuropathy associated with type 2 diabetes mellitus ([facility]/HCC) Expected: 09/24/2024, Expires: 12/21/2024 [facility] Work Phone: Comment on above: Expected: 09/24/2024 , Expires: 12/21/2024 Start: 09-23-2024 End: 09-23-2024 Patient encounter procedure 09/23/2024 8:30 AM EST Office Visit [facility] [address] [place] [phone] Kristopher Herzog, [address] [place] [address] [facility] Start: 09-17-2024 Hemoglobin A1c measurement Diabetes: Hemoglobin A1C [facility] Start: 09-08-2024 Screening for malign ant neoplasm of colon FOBT [facility] Start: 08-01-2024 End: 08-01-2024 Patient encounter procedure [facility] Comment on above: Arrived Start: 06-22-2024 End: 06-22-2024 Patient encounter procedure 06/22/2024 8:45 AM EDT Office Visit [facility] [address] [place] [phone] Kristopher Herzog, [address] [place] [address] [facility] Start: 06-09-2024 End: 06-09-2024 Patient encounter procedure 06/09/2024 9:00 AM EDT Office Visit [facility] [address] [place] [address] Kristopher Herzog, [address] [place] [address] [facility] Start: 06-04-2024 Hemoglobin A1c measurement Diabetes: Hemoglobin A1C [facility] Start: 04-29-2024 End: 04-29-2024 Patient encounter procedure 04/29/2024 9:00 AM EDT [facility] [address] [place] [phone], DO [address] [place] [address] [facility] [facility] Start: 04-24-2024 Influenza vaccination Influenza Vacc ine (#1) [facility] Start: 01-06-2024 End: 01-06-2024 Patient encounter procedure 01/06/2024 10:45 AM EDT Office Visit [facility] [address] [place] [address] Kristopher Herzog, DO [address] [place] [address] [facility] Start: 12-31-2023 Medicare Annual Well ness (AWV) Medicare Annual Wellness (AWV) [facility] Start: 12-28-2023 [facility] Start: 12-21-2023 End: 12-21-2023 Patient encounter procedure 12/21/2023 1:15 PM EDT Office [facility] [address] [place] [phone], DO [address] [place] [address] [facility] Start: 12-16-2023 End: 12-16-2023 Patient encounter procedure 12/16/2023 10:15 AM EDT Procedure Visit [facility] [address] [place] [address] Marlon Branham, DPM [address] [place] [address] [facility] Start: 12-04-2023 Hemoglobin A1c measurement Diabetes: Hemoglobin A1C [facility] Start: 12-02-2023 Screening for malign ant neoplasm of breast Mammogram [facility] Start: 10-13-2023 End: 10-13-2023 Patient encounter procedure 10/13/2023 2:45 PM EST Office Visit [facility] [address] [place] [address] Marlon Branham, DPM [address] [place] [address] [facility] Start: 12-15-2022 [facility] Start: 12-14-2022 Blood chemistry [facility] Start: 12-14-2022 End: 12-14-2022 [facility] Start: 12-13-2022 [facility] Start: 12-13-2022 Computed tomography of abdomen and pelvis with contrast CT abdomen pelvis w con [facility] Start: 12-13-2022 End: 12-13-2022 [facility] Start: 12-13-2022 Physical therapy procedure [facility] Start: 12-13-2022 Referral to occupati onal therapist [facility] Start: 12-13-2022 Hospital admission [facility] Start: 09-23-2022 Bacteria identified in Urine by Culture [facility] Start: 06-23-2022 Duplex scan of lower limb veins US venous duplex LE RT [facility] Start: 06-23-2022 US Lower extremity v ein - right [facility] Start: 02-28-2022 [facility] Start: 05-18-2020 Screening for malign ant neoplasm of colon FIT [facility] Start: 1950 Screening for malign ant neoplasm of colon [facility] Patient Education [facility] Work Phone: Patient referral [facility] Work Phone: [facility] Immunizations Immunization Date Immunization Notes Care Provider [facility] 06-22-2024 Seasonal trivalent influenza vaccine, adjuvanted, preservative free Adam Rodriguez [employer] Work Phone: [facility] 06-22-2024 influenza virus vaccine, unspecified formulation Venita Osbornsuly [employer] Work Phone: [facility] 10-08-2023 RSV, recombinant, protein subunit RSVpreF, adjuvant reconstitu, 120mcg/0.5mL, PF (Arexvy) Marlon Branham DPM Work Phone: [facility] 05-29-2023 Influenza, High-dose Seasonal, Quadrivalent, Preservative Free Kimberly [employer] ASSISTANT CASE MANAGER [facility] 05-29-2023 influenza virus vaccine, unspecified formulation Marlon Branham DPM Work Phone: [facility] 05-27-2023 influenza virus vaccine, unspecified formulation Kimberly [employer] ASSISTANT CASE MANAGER [facility] 05-21-2022 influenza, high dose seasonal, preservative-free Kimberly [employer] ASSISTANT CASE MANAGER [facility] 12-04-2021 Pneumococcal Conjuga te PCV 20 Kimberly [employer] ASSISTANT CASE MANAGER [facility] 05-31-2021 influenza, high dose seasonal, preservative-free Kimberly [employer] ASSISTANT CASE MANAGER [facility] 11-14-2020 COVID-19 mRNA-1273 (Moderna) DO Kristopher Herzog Work Phone: [facility] 10-17-2020 COVID-19 mRNA-1273 (Moderna) DO Kristopher Herzog Work Phone: [facility] 07-26-2020 Seasonal trivalent influenza vaccine, adjuvanted, preservative free Kimberly [employer] ASSISTANT CASE MANAGER [facility] 12-26-2019 KENALOG - 10 mg Lauren Reggiet Other [facility] Other 08-22-2019 KENALOG - 10 mg Lauren Fitt Other [facility] Other 05-17-2019 Seasonal trivalent influenza vaccine, adjuvanted, preservative free Kimberly [employer] ASSISTANT CASE MANAGER [facility] 01-14-2019 pneumococcal polysaccharide vaccine, 23 valent Lauren Fitt Other [facility] Other 11-05-2018 KENALOG - 10 mg Lauren Fitt Other [facility] Other 05-14-2018 influenza virus vaccine, unspecified formulation DO [employer] Work Phone: [facility] 05-14-2018 influenza, high dose seasonal, preservative-free Lauren Fitt Other [facility] Other 06-12-2017 influenza virus vaccine, unspecified formulation DO [employer] Phone: [facility] 06-12-2017 influenza, injectabl e, quadrivalent, preservative free [employer] ASSISTANT CASE MANAGER [facility] 06-12-2017 influenza, high dose seasonal, preservative-free Lauren Fitt Other [facility] [employer] Other 06-26-2016 influenza virus vaccine, unspecified formulation DO [employer] Work Phone: [facility] 06-26-2016 influenza, high dose seasonal, preservative-free Lauren Fitt Other [employer] Other 07-06-2015 pneumococcal conjuga te vaccine, 13 valent [employer] ASSISTANT CASE MANAGER [facility] 06-15-2015 seasonal influenza, intradermal, preservative free [employer] ASSISTANT CASE MANAGER [facility] 10-27-2014 KENALOG - 10 mg Lauren Fitt Other [employer] Other 10-15-2014 KENALOG - 10 mg Lauren Fitt Other [employer] Other 05-29-2014 influenza virus vaccine, unspecified formulation DO Kristopher [employer] Work Phone: [facility] 05-29-2014 influenza, high dose seasonal, preservative-free Lauren Fitt Other [employer] Other 08-24-2013 zoster vaccine, live [employer] N [facility] 04-26-2013 influenza virus vaccine, unspecified formulation DO [employer] Work Phone: [facility] 04-26-2013 influenza, seasonal, injectable, preservative free [employer] ASSISTANT CASE MANAGER [facility] 04-26-2013 influenza, high dose seasonal, preservative-free Lauren Fitt Other [employer] Other 04-26-2013 influenza, injectabl e, quadrivalent, preservative free Kiersten Qureshi Other [facility] [employer] Other 07-28-2012 seasonal influenza, intradermal, preservative free [employer] ASSISTANT CASE MANAGER [facility] 06-30-2011 pneumococcal polysaccharide vaccine, 23 valent [employer] ASSISTANT CASE MANAGER [facility] 05-20-2011 seasonal influenza, intradermal, preservative free [employer] ASSISTANT CASE MANAGER [facility] Payers Date Payer Category Payer Unknown [id number] 2023 Self-pay [id number] 2021 Medicare [id number] [id number] 2021 Medicare (Managed Care) 1.2. [id number] 2021 Unknown [employer] [facility] [employer] [id number] 2021-Present [address] [place] [id number] [id number]. 7.3.314513.315 2021 Unknown [id number] 2.16.840.1.641885.19 1950 Unknown [id number] 2.16.840.1.674820.3.579.2. 356 1950 Unknown [id number] 2.16.840.1.328641.3.579.2. 1259 1950 Unknown [id number] 2.16.840.1.539639.3.579.2. 1259 1950 Unknown [id number] 2.16.840.1.778025.3.579.2. 1259 1950 Unknown [id number] 2.16.840.1.053766.3.579.2. 1259 1950 Unknown [id number] 2.16.840.1.198258.3.579.2. 1259 1950 Unknown [id number] 2.16.840.1.504316.3.579.2. 1259 1950 Unknown [id number] 2.16.840.1.897038.3.579.2. 1259 1950 Unknown [id number] 2.16.840.1.787328.3.579.2. 1259 1950 Unknown [id number] 2.16.840.1.787145.3.579.2. 1259 1950 Unknown [id number] 2.16.840.1.907251.3.579.2. 1259 1950 Unknown [id number] 2.16.840.1.481414.3.579.2. 1259 1950 Unknown [id number] 2.16.840.1.757806.3.579.2. 125 1950 Unknown [id number] 2.16.840.1.345877.3.579.2. 1258 1950 Unknown [id number] 2.16.840.1.725522.3.579.2. 1258 1950 Unknown [id number] 2.16.840.1.674858.3.579.2. 1258 1950 Unknown [id number] 2.16.840.1.729018.3.579.2. 1258 1950 Unknown [id number] 2.16.840.1.125415.3.579.2. 1258 1950 Unknown [id number] 2.16.840.1.672622.3.579.2. 1258 1950 Unknown [id number] 2.16.840.1.304362.3.579.2. 1258 1950 Unknown [id number] 2.16.840.1.676702.3.579.2. 1258 1950 Unknown [id number] 2.16.840.1.827585.3.579.2. 1258 1950 Unknown [id number] 2.16.840.1.928786.3.579.2. 1258 1950 Unknown [id number] 2.16.840.1.404845.3.579.2. 1259 Medicare Medicare [id number] Medicare [place] [facility] PFFS [id number] Unknown HCAP/HFA/FAP Active [id number] Unknown [id number] 2.16.840.1.062660.3.579.2. 531 Unknown [id number] 2.16.840.1.144163.3.579.2. 531 Unknown [id number] 2.16.840.1.323140.3.579.2. 531 Social History Date Type Detail Facility Start: 09-08-2023 End: 01-09-2025 Sex Assigned At [facility] Other Start: 11-23-2021 End: 10-07-2024 Tobacco smoking status AKIS Ex-smoker (finding) [facility] Start: 1950 Sex Assigned At Female [facility] Start: 07-16-2022 End: 09-08-2023 Tobacco smoking status AKIS Never smoked tobacco (finding) [facility] History of tobacco use Passive smoker [facility] Start: 09-08-2023 Tobacco use and exposure Smokeless tobacco non-user [facility] Start: 09-16-2023 End: 03-22-2025 Alcohol intake Lifetime non-drinker (finding) [facility] [...] file [facility] Start: 07-04-2024 End: 02-01-2025 Sex Female (finding) [facility] Medical Equipment Procedure Code Equipment Code [...] SELF DRILL ING 3.8X14MM FDA Start: 06-18-2017 [id number] Start: 08-20-2022 1 each by Other route in the morning and 1 each at noon and 1 each in the evening and 1 each before bedtime. [id number] USE TO TEST BLOO D SUGAR 3 TIMES DAILY DIRECTED [id number] Start: 06-13-2023 USE TO TEST BLOO D SUGAR THREE TIMES A DAY DIRECTED [id number] Start: 06-13-2023 BONE 5MM DUO FDA Start: [...] D SUGAR THREE TIMES A DAY DIRECTED [id number] Start: 11-09-2023 USE TO TEST BLOO D SUGAR 3 TIMES DAILY DIRECTED [id number] Start: 11-09-2023 BONE 5MM DUO FDA Start: [...] 06-18-2017 USE TO TEST BLOO D SUGAR 3 TIMES A DAY DIRECTED [id number] Start: 01-26-2025 Inject 1 each un ommo the skin in the morning and 1 each before bedtime. Use as instructed. [id number] Start: 01-30-2025 BONE 5MM DUO FDA Start: 06-18-2017 BONE [...] [facility] ionnaire 2 item (PHQ-2) [Reported] [facility] 12-15-2022 Functional status Patient at Baseline [facility] Work Phone: [facility] Mental Status Date Assessment Result Facility 12-15-2022 Cognitive function Cognitive Sta tus Patient at Baseline [facility] Work Phone: Clinical Notes 05-15-2021 to 03-22-2025 Marlon Branham DPM - 03/22/2025 11:15 AM Oliva Branham DPM - 03/14/2025 9:00 AM KASH Babcock - 03/09/2025 8:45 AM EDTCaugiera Olman Branham, DPM - 03/07/2025 8:30 AM EDT Note Date & Type Note Facility 03-22-2025 History of Present illness Narrative Images from the original note were not included. HPI: Nicol Frances presents today for post-op appointment of correction right hallux deformity. Surgery was performed on 03/03/2025 at [facility]. Patient complains of pain 0. Current symptoms are dull. Majority of her symptoms are along the surgical sites. Patient has not been icing and elevating as instructed. Patient states that she has taken one prescription pain pill, and has been taking Tylenol ever since. No other concerns. Examination: General Examination: GENERAL EXAMINATION: alert, well hydrated, in no distress , awake, aware of surroundings. FOOT EXAM: Date of Last Foot Exam 03/22/25 Vascular: DORSALIS PEDIS PULSE:2/4, bilaterally. POSTERIOR TIBIAL PULSE:0/4, bilaterally. TEMPERATURE GRADIENT:warm to cool. EDEMA: to the right hallux and along the dorsal right foot INSPECTION: mild erythema over the right 1st MPJ. VARICOSITIES: present, bilateral LE. CAPILLARY FILLING TIME(sec):less than 3 seconds, bilateral. Neurologic: VIBRATORY:abnormal. SEMMES-JOHN 5.07 MONOFILAMENTabnormal, bilateral. Dermatologic: SKIN FINDINGS: Small nevus plantar lateral aspect of the left hallux, 0.2 cm in diameter. Evidence of petechiae and dermatitis along the dorsal aspect of the bilateral foot. Patient has been experiencing some itching and discoloration in this area. Incision site to the medial right hallux is well coapted. Maceration to the distal incision site with slight serous drainage. Mild surrounding edema and erythema, no SOI noted. Good position noted to the hallux with no rubbing to the 2nd digit HYPERKERATOSIS: Location: distal aspect of the left 2nd, 3rd digit, distal medial right hallux, sub 1st MPJ left NAIL PATHOLOGY: digits 1-5 bilateral are intact. SKIN PATHOLOGY: thin, shiny, atrophic, decreased hair growth, pigment discoloration changes, varicosities bilateral lower extremity left > right. Ankle / Foot: MUSCLE STRENGTH: 4/5 to all pedal groups tested. Orthopedic: DEFORMITIES: Hammer toe deformities 2-5 bilateral, dorsal dislocation hallux bilateral, plantar fat pad atrophy, hav deformity left PAIN ELICITED WITH PALPATION OF: overlying the callous formation left 3rd digit, pain to the surgical sites right foot Assessment: 1. Dermatophytosis of nail - B35.1 (Primary) 2. Foot pain, left - M79.672 3. Foot pain, right - M79.671 4. Venous insufficiency - I87.2 5. Generalized edema - R60.1 6. Hammertoe, left - M20.42 7. Corns and callosities - L84 9. DM neuro manif type II - E11.49 10. Surgery follow-up examination Plan: Surgery Follow-up Examination: Sutures were removed from the incision site. Advised that she can begin to get the area wet, but to avoid soaking for the next 2-3 weeks until the skin is completely healed. There is a dried eschar over the incision that was left in place. Updated orders placed for HHC with [facility]. She was also advised on use of a toe spacer to help keep the toe from jonathan. The ulceration to the left hallux and 2nd digit have already healed which is a good sign that the toe is in a better position, but we do not want any recurrence of the malleux deformity. Patient was also given Coban to use over the dressing to help with the swelling to the toe. She can start light touch massage to help prevent nerve pain or symptoms along the incision site. Patient advised to return to her normal shoe gear as tolerated. RTC: 3-4 weeks. documented in this encounter [facility] 03-14-2025 History of Present illness Narrative Images from the original note were not included. HPI: Nicol Frances presents today for post-op appointment of correction right hallux deformity. Surgery was performed on 03/03/2025 at [facility]. Patient complains of pain 0. Current symptoms are dull. Majority of her symptoms are along the surgical sites. Patient has not been icing and elevating as instructed. Patient states that she has taken one prescription pain pill, and has been taking Tylenol ever since. No other concerns. Examination: General Examination: GENERAL EXAMINATION: alert, well hydrated, in no distress , awake, aware of surroundings. FOOT EXAM: Date of Last Foot Exam 03/14/25 Vascular: DORSALIS PEDIS PULSE:2/4, bilaterally. POSTERIOR TIBIAL PULSE:0/4, bilaterally. TEMPERATURE GRADIENT:warm to cool. EDEMA: to the right hallux and along the dorsal right foot INSPECTION: mild erythema over the right 1st MPJ. VARICOSITIES: present, bilateral LE. CAPILLARY FILLING TIME(sec):less than 3 seconds, bilateral. Neurologic: VIBRATORY:abnormal. SEMMES-JOHN 5.07 MONOFILAMENTabnormal, bilateral. Dermatologic: SKIN FINDINGS:Small nevus plantar lateral aspect of the left hallux, 0.2 cm in diameter. Evidence of petechiae and dermatitis along the dorsal aspect of the bilateral foot. Patient has been experiencing some itching and discoloration in this area. Incision site to the medial right hallux is well coapted. Maceration to the distal incision site with slight serous drainage. Mild surrounding edema and erythema, no SOI noted. Good position noted to the hallux with no rubbing to the 2nd digit HYPERKERATOSIS:Location: distal aspect of the left 2nd, 3rd digit, distal medial right hallux, sub 1st MPJ left NAIL PATHOLOGY:digits 1-5 bilateral are intact. SKIN PATHOLOGY:thin, shiny, atrophic, decreased hair growth, pigment discoloration changes, varicosities bilateral lower extremity left > right. Ankle / Foot: MUSCLE STRENGTH:4/5. Orthopedic: DEFORMITIES:Hammer toe deformities 2-5 bilateral, dorsal dislocation hallux bilateral, plantar fat pad atrophy, hav deformity left PAIN ELICITED WITH PALPATION OF: overlying the callous formation left 3rd digit, pain to the surgical sites right foot Assessment: 1. Dermatophytosis of nail - B35.1 (Primary) 2. Foot pain, left - M79.672 3. Foot pain, right - M79.671 4. Venous insufficiency - I87.2 5. Generalized edema - R60.1 6. Hammertoe, left - M20.42 7. Corns and callosities - L84 9. DM neuro manif type II - E11.49 10. Surgery follow-up examination Plan: Surgery Follow-up Examination: Incision site was dressed with betadine, Adaptic and dry sterile dressing to the right foot. I did not want to remove the sutures as there is not complete healing to the incision site at the distal aspect. We discussed that this is likely due to all the excess skin that was in this area after correcting the deformity. Advised patient to keep the dressing intact and continue to keep it covered when bathing. She can continue weightbearing as tolerated with use of the surgical shoe. I will order dressing changes with her [facility] nurse. Patient was also advised on beginning passive range of motion exercises to the foot and ankle as well as calf squeezes/compression. Patient does not want a refill of her pain medication. Patient will follow-up in 7-10 days for suture removal. documented in this encounter [facility] 03-09-2025 History of Present illness Narrative Images from the original note were not included. Orthopedic Office note: NAME: Nicol Frances : 1950 (NEW PT) ([facility] REFERR[facility]) - WORSENING (L) KNEE DISCOMFORT SINCE 11/2024 (~3 MONTHS) ; NKI XRAY 02/13/25 IN EPIC CORTISONE INJ 01/09/25 (DR. HERZOG) PRESENTS AMBULATING WITH WALKER. WORSENING DIFFUSE DISCOMFORT - RADIATION TO FOOT. WORSE WHEN GOING FROM SITTING TO STANDING. ADMITS NUMBNESS / HEAVINESS. DENIES WEAKNESS / BUCKLING. ADMITS TIGHTNESS. DIFFUSE SWELLING TO LEG. DENIES TINGLING. DENIES WAKING HS. ADMITS POPPING. DENIES GRINDING. LIMITED ROM WITH FLEXION. COMPRESSION SOCKS. TYL EXTRA STRENGTH PRN. ELEVATING. DENIES ICING / HEATING. [place] - TEMPORARY RELIEF. Physical Exam Knee Musculoskeletal Exam Gait Antalgic: left Limp: left Assistive device: walker Inspection Leg length disparity: no discrepancy Left Erythema: none Effusion: moderate Edema: none Ecchymosis: none Deformity: mild Palpation Left Left knee palpation is unremarkable. Increased warmth: none Masses: none Crepitus: patellofemoral, medial and lateral Tenderness: present Lateral joint line: moderate Medial joint line: moderate Patella: mild Range of Motion Left Left knee range of motion is normal and full. Active extension: 10 Passive extension: 5 Active flexion: 90 Passive flexion: 90 Strength Left Left knee strength is normal. Extension: 5/5. Extension is affected by pain. Flexion: 5/5. Flexion is affected by pain. Instability Left Instability signs: none - stable Anterior drawer: normal Neurovascular Left Left knee neurovascular exam is normal. Pulses - PT: normal Posterior tibial: 2+ Capillary refill: warm and well-perfused Special Signs Left Left knee special signs are normal. Patellar compression: mild Patellar apprehension: mild General Constitutional: appears stated age Labored breathing: no Psychiatric: normal mood and affect Neurological: alert Skin: intact Lymphadenopathy: none No orders of the defined types were placed in this encounter. Procedures Results XRAY [facility] 02/13/25:(L) KNEE: Tricompartmental osteoarthritis. ICD-10-CM 1. Acute pain of left knee M25.562 Ambulatory referral to Orthopaedic Surgery 2. Primary osteoarthritis of left knee M17.12 Ambulatory referral to Orthopaedic Surgery F/U Dr. Navarro s/p right foot healing from recent surgery and dental clearance needs. to discuss need for possible: (L) TKA Pt to keep Hgb A1c Below 7 Surgical and non surgical tx options discussed with conservative measures reviewed. Recommend ICE/ ELEVATION, continued activity modification in interim. Pt would consider surgical intervention to possibly improve symptoms. Assessment & Plan Left knee pain She reports significant pain and limited range of motion in her left knee. Surgical and nonsurgical treatment options were discussed. She declines a referral to pain management for potential genicular blocks. Cortisone injections are not recommended due to lack of significant success in the past and the potential to delay surgical intervention. She will call if she needs genicular block assistance with pain management, which could be scheduled in [place] as she transitions to Dr. Walden. Significant time was spent discussing surgical and nonsurgical treatment options. She is using her rollator for support and will call if any symptoms worsen for reevaluation and potential pain management referral as we await for her to get dental clearance and further healing on her foot. Left knee arthritis She has left knee arthritis contributing to her pain and limited range of motion. The patient is advised to maintain her hemoglobin A1c below 7 for optimal blood sugar control leading up to potential surgery. Her recent foot surgery must be completely healed before considering knee surgery. She is advised to see a dentist for dental care and is considering getting full dentures. Financial constraints are noted as a setback, and she is addressing issues in order of necessity. Health maintenance She has not seen a dentist recently and is considering getting full dentures. She is advised to see a dentist for dental care. Blood sugar management She is advised to maintain her hemoglobin A1c below 7 for optimal blood sugar control leading up to potential surgery. Follow-up: A 3-month follow-up has been recommended. PROCEDURE The patient recently had surgery on her right foot. Questions answered in laymen terms at the bedside. The diagnosis, home exercise plan and any ongoing restrictions/ recommendations reviewed. If unable to be reached in office, I recommend evaluation at nearest Emergency Room if any symptoms worsened or new symptoms develop for requiring urgent evaluation. 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 documented in this encounter [facility] 03-07-2025 History of Present illness Narrative HPI: Nicol Frances presents today for post-op appointment of correction right hallux deformity. Surgery was performed on 03/03/2025 at [facility]. Patient complains of pain 0. Current symptoms are dull. Majority of her symptoms are along the surgical sites. Patient has not been icing and elevating as instructed. Patient states that she has taken one prescription pain pill, and has been taking Tylenol ever since. No other concerns. Examination: General Examination: GENERAL EXAMINATION: alert, well hydrated, in no distress , awake, aware of surroundings. FOOT EXAM: Date of Last Foot Exam 03/07/25 Vascular: DORSALIS PEDIS PULSE:2/4, bilaterally. POSTERIOR TIBIAL PULSE:0/4, bilaterally. TEMPERATURE GRADIENT:warm to cool. EDEMA: to the right hallux and along the dorsal right foot INSPECTION: mild erythema over the right 1st MPJ. VARICOSITIES: present, bilateral LE. CAPILLARY FILLING TIME(sec):less than 3 seconds, bilateral. Neurologic: VIBRATORY:abnormal. SEMMES-JOHN 5.07 MONOFILAMENTabnormal, bilateral. Dermatologic: SKIN FINDINGS:Small nevus plantar lateral aspect of the left hallux, 0.2 cm in diameter. Evidence of petechiae and dermatitis along the dorsal aspect of the bilateral foot. Patient has been experiencing some itching and discoloration in this area. Incision site to the medial right hallux is well coapted. There is some dried blood along the distal incision site. Mild surrounding edema and erythema, no SOI noted. Good position noted to the hallux with no rubbing to the 2nd digit HYPERKERATOSIS:Location: distal aspect of the left 2nd, 3rd digit, distal medial right hallux, sub 1st MPJ left NAIL PATHOLOGY:digits 1-5 bilateral are intact. SKIN PATHOLOGY:thin, shiny, atrophic, decreased hair growth, pigment discoloration changes, varicosities bilateral lower extremity left > right. Ankle / Foot: MUSCLE STRENGTH:4/5. Orthopedic: DEFORMITIES:Hammer toe deformities 2-5 bilateral, dorsal dislocation hallux bilateral, plantar fat pad atrophy, hav deformity left PAIN ELICITED WITH PALPATION OF: overlying the callous formation left 3rd digit, pain to the surgical sites right foot Assessment: 1. Dermatophytosis of nail - B35.1 (Primary) 2. Foot pain, left - M79.672 3. Foot pain, right - M79.671 4. Venous insufficiency - I87.2 5. Generalized edema - R60.1 6. Hammertoe, left - M20.42 7. Corns and callosities - L84 9. DM neuro manif type II - E11.49 10. Surgery follow-up examination Plan: Surgery Follow-up Examination: Incision site was dressed with betadine, Adaptic and dry sterile dressing to the right foot. Advised patient to keep the dressing intact and continue to keep it covered when bathing. She can continue weightbearing as tolerated with use of the surgical shoe. Patient was also advised on beginning passive range of motion exercises to the foot and ankle as well as calf squeezes/compression. Patient does not want a refill of her pain medication. Patient will follow-up in 7-10 days for suture removal. documented in this encounter [facility] 02-22-2025 Telephone encounter Note Will you please call her and see if she has had anything done? I know I ordered an EKG for her. [facility] Work Phone: 02-22-2025 Miscellaneous Notes Will you please call her and see if she has had anything done? I know I ordered an EKG for her. Called [facility] and [facility] for results. [facility] doesn't have anything after January 2024. [facility] has lab work from December 2024, which we have, and a EKG from October 2024 that they are sending over now. No other results available. I looked on clinisync and do not see labs or an EKG has she done any for her persurgical testing? Please call [facility] and see if we can request recent labs and EKG. I believe she had done her presurgical testing labs there. She is scheduled for 03/[address] Branham. documented in this encounter [facility] 02-22-2025 Telephone encounter Note Called [facility] and [facility] for results. [facility] doesn't have anything after January 2024. [facility] has lab work from December 2024, which we have, and a EKG from October 2024 that they are sending over now. No other results available. [facility] 02-22-2025 Telephone encounter Note I looked on clinisync and do not see labs or an EKG has she done any for her persurgical testing? [facility] 02-22-2025 Telephone encounter Note Please call [facility] and see if we can request recent labs and EKG. I believe she had done her presurgical testing labs there. She is scheduled for 03/[address] Branham. [facility] 02-16-2025 History of Present illness Narrative Images from the original note were not included. HPI: Patient presents today for their pre-operative appointment. The patient is scheduled for correction right hall[facility] deform[facility] with Dr. Branham on 03/03/2025 at 11:45 AM. The patient is here to sign surgery paperwork, receive post-operative shoe (if needed), post-operative instructions and any post-operative prescriptions. Past Medical History: Diagnosis Date Acquired hallux valgus 01/31/2020 Acquired hammer toe of right foot 04/24/2021 Carpal tunnel syndrome 06/08/2023 Cataract Chronic ischemic heart disease Other specified forms Colitis Cough Depression Depressive disorder not elsewhere classified Displacement of lumbar intervertebral disc without myelopathy DVT (deep venous thrombosis) ([facility]) Encounter for current long-term use of 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s Erythema nodosum Essential hypertension, benign Generalized osteoarthrosis unspecified site Hallux hammertoe, left Hallux hammertoe, right Hallux malleus of right foot Hearing loss Hepatitis B Hyperlipidemia, unspecified Obstructive sleep apnea (adult) (pediatric) Orthostatic hypotension Osteoarthritis of knee 12/22/2019 PE (pulmonary thromboembolism) ([facility]) 04/21/2023 Primary osteoarthritis of first carpometacarpal joint of right hand Spinal stenosis in cervical region Type II or unspecified type diabetes mellitus with neurological manifestations, uncontrolled(250.62) ([facility]) Ulcerative colitis ([facility]) Unspecified Ulcerative colitis (HCC) Other ulcerative colitis Ulcerative colitis ([facility]) 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 BD Insulin Syringe U/F 30G X 1/2 0.5 ML misc cholecalciferol (Vitamin D-3) 25 MCG (1000 UT) tablet Take 1,000 Units by mouth in the morning. citalopram (CeleXA) 20 MG tablet TAKE 1 TABLET EVERY MORNING 90 tablet 2 clobetasol (Temovate) 0.05 % ointment APPLY TO AFFECTED AREA TWICE A DAY 30 g 3 Continuous Glucose Melting Operator (FreeStyle Carline 3 Crowley) device USE I DEVICE CONTINUOUSLY 1 each 3 Continuous Glucose Sensor (FreeStyle Carline 3 Sensor) misc 1 Device every 14 (fourteen) days 7 each 3 furosemide (Lasix) 20 MG tablet TAKE 1 TABLET BY MOUTH EVERY DAY 90 tablet 1 glucose blood (OneTouch Verio) test strip USE TO TEST BLOOD SUGAR 3 TIMES A DAY DIRECTED 300 strip 3 insulin aspart protamine-insulin aspart (NovoLOG MIX 70/30) (70-30) 100 UNIT/ML injection Inject 14 Units under the skin in the morning and 14 Units in the evening. Inject with meals. 26 mL 3 insulin pen needle 31G x 4 mm misc Inject 1 each under the skin in the morning and 1 each before bedtime. Use as instructed. 180 each 3 Lancet Devices (Autolet) lancing device 1 each by Other route in the morning and 1 each at noon and 1 each in the evening and 1 each before bedtime. Lancets (Logia GroupTouch Delica Plus [id number]) [facility] USE TO TEST BLOOD SUGAR 3 TIMES DAILY DIRECTED 100 each 10 losartan (Cozaar) 50 MG tablet TAKE 1 TABLET EVERY MORNING 90 tablet 3 Multiple Vitamins-Minerals (Ocuvite Adult Formula) capsule as directed Orally Multiple Vitamins-Minerals (PreserVision AREDS) tablet as directed Orally pantoprazole (ProtoNix) 40 MG EC tablet Take 1 tablet (40 mg) by mouth in the morning. Take before meals. 90 tablet 3 rosuvastatin (Crestor) 20 MG tablet TAKE 1 TABLET BY MOUTH AT BEDTIME 90 tablet 3 sulfaSALAzine (Azulfidine) 500 MG tablet TAKE TWO (2) TABLETS BY MOUTH THREE TIMES PER DAY warfarin (Coumadin) 3 MG tablet TAKE 1/2 TAB ORALLY ON THURSDAY AND THURSDAY, 1 TABLET DAILY ALL OTHER DAYS OR PER COUMADIN CLINIC 78 tablet 1 No current facility-administered medications on file prior to visit. Allergies: No Known Allergies Family History Problem Relation Name Age of Onset Diabetes Mother Heart disease Mother Heart disease Father Diabetes Father Breast cancer Sister Heart disease Daughter Diabetes Daughter Cancer Daughter Colon cancer Neg Hx Ovarian cancer Neg Hx Social History Tobacco Use Smoking status: Never Passive exposure: Past Smokeless tobacco: Never Substance Use Topics Alcohol use: Never Comment: caffeine: none Drug use: Never 10/03/2024 9:14 AM 10/25/2024 2:36 PM 11/15/2024 8:55 AM 12/14/2024 9:01 AM 12/16/2024 9:20 AM 01/09/2025 8:47 AM 02/13/2025 8:40 AM Vitals BMI 33.09 kg/m2 32.61 kg/m2 32.5 kg/m2 33.82 kg/m2 34.31 kg/m2 BSA (m2) 1.87 m2 1.84 m2 1.83 m2 1.87 m2 1.88 m2 Systolic 120 120 120 112 112 Diastolic 58 58 58 72 70 Heart Rate 74 74 74 72 68 74 SpO2 99 % 98 % 98 % 99 % 97 % 98 % Resp 16 16 16 Height (in) 5' 1.5 5' 1 5' 1 5' 1 5' 1 Weight (lb) 178 172.6 172 179 181.6 Visit Report Report Report Report Report Report Report Report Examination: General Examination: GENERAL EXAMINATION: alert, well hydrated, in no distress , awake, aware of surroundings. FOOT EXAM: Date of Last Foot Exam 02/16/25 Diabetic Shoe & Insert: Previous amputation of [...] varicosities bilateral lower extremity left > right. Ankle / Foot: MUSCLE STRENGTH:4/5. Orthopedic: DEFORMITIES:Hammer toe deformities 2-5 bilateral, dorsal dislocation hallux bilateral, plantar fat pad atrophy, hav deformity left, delta phalanx with lateral deviation of the right hallux IPJ PAIN ELICITED WITH PALPATION OF: overlying the callous formation left 3rd digit Assessment: 1. Dermatophytosis of nail - B35.1 (Primary) 2. Foot pain, left - M79.672 3. Foot pain, right - M79.671 4. Venous insufficiency - I87.2 5. Generalized edema - R60.1 6. Hammertoe, left - M20.42 7. Corns and callosities - L84 9. DM neuro manif type II - E11.49 Plan: Patient presents today for their pre-operative appointment for proposed procedure: CORRECTION OF RIGHT GREAT TOE DEFORMITY. Surgical paperwork was completed and signed. The patient elects to proceed with surgical intervention at this time. The risks, complications, benefits, alternatives to surgery including 2nd opinion, OR personnel and santhosh and post-op care were discussed in detail with the patient. The elective nature of the procedure was also discussed in detail with the patient. Specific complications related to this surgery were also discussed including, but not limited to: possible infection, the need for oral or IV antibiotics, hospitalization, additional surgery including removal of hardware, prolonged pain, stiffness or reoccurrence. Other complications include blood clot, hematoma, loss of use, loss of toe, foot and or leg. Possible complications relating to over activity and limitations during the post-operative period were reviewed in detail. We have reviewed the fact that prolonged swelling is possible up to a year after surgery and could delay return to normal shoes and activities. Patient was dispensed their postoperative prescriptions including: [place]. A post-operative shoe was also dispensed for use after surgery. Patient instructed to bring this with them on the day of surgery. We discussed the postoperative instructions including protected weight bearing on the surgical foot for at least 4-6 weeks with use of a surgical shoe. The patient was told that no guarantee could be made as to the outcome of the procedure patient consented to the procedure. They will be contacted by the surgery center/hospital regarding their surgical appointment time. Patient was reminded to be NPO at midnight prior to their procedure. Patient will schedule post-op appointment for 3-5 days after surgery. documented in this encounter [facility] 02-13-2025 History of Present illness Narrative Images from the original note were not included. Subjective Patient ID: Nicol Frances (: 1950) is a 74 y.o. female who presents for Procedure. HPI History of Present Illness The patient presents for presurgical testing and L knee pain. She is scheduled for a preoperative evaluation on 02/16/2025, with the surgical procedure planned for 03/03/2025. The surgery involves the placement of a screw in her right big toe to maintain its alignment. She has previously undergone surgery and has not experienced any adverse reactions to anesthesia. She reports no difficulty swallowing. An EKG has been ordered, but she is uncertain about any additional lab work. She does have an appt with the coumadin clinic this week. She has been experiencing severe knee pain, which she describes as excruciating, particularly when rising from the toilet. This pain has been present for the past 2 months. Initially, she experienced numbness and a sensation of heaviness in her leg. A consultation with Dr. Herzog on 01/09/2025 revealed a diagnosis of degenerative arthritis. She received a cortisone injection, which provided temporary relief before the pain returned. Currently, she reports a recurrence of the heaviness in her leg, although it is less severe than before. She has not previously consulted an training specialist. Her home health nurse visits her once a week and has been having her write down her blood sugar levels, which she checks at breakfast, lunch, and supper. The nurse wanted her to bring this information for review. Her blood sugar levels have not been too high, and she has been feeling well with these numbers. She is curious about her weight today. When she was here on 01/09/2025, she weighed 180 pounds, and she is hoping that she might need to lose some weight. She is trying to lose weight. Current Outpatient Medications Medication Instructions acetaminophen (TYLENOL EXTRA STRENGTH) 1,000 mg, 2 times daily PRN BD Insulin Syringe U/F 30G X 1/2 0.5 ML misc cholecalciferol (VITAMIN D-3) 1,000 Units, Daily citalopram (CELEXA) 20 mg, Oral, Every morning clobetasol (Temovate) 0.05 % ointment Topical, 2 times daily, to affected area Continuous Glucose Melting Operator (FreeStyle Carline 3 Crowley) device USE I DEVICE CONTINUOUSLY Continuous Glucose Sensor (FreeStyle Carline 3 Sensor) misc 1 Device, Does not apply, Every 14 days furosemide (LASIX) 20 mg, Oral, Daily glucose blood (Logia GroupTouch Verio) test strip USE TO TEST BLOOD SUGAR 3 TIMES A DAY DIRECTED insulin aspart protamine-insulin aspart (NovoLOG MIX 70/30) (70-30) 100 UNIT/ML injection 14 Units, Subcutaneous, 2 times daily with meals insulin pen needle 31G x 4 mm misc 1 each, Subcutaneous, 2 times daily, Use as instructed Lancet Devices (Autolet) lancing device 1 each, 4 times daily Lancets (OneTouch Delica Plus [id number]) misc USE TO TEST BLOOD SUGAR 3 [...] Patient Active Problem List Diagnosis Mixed hyperlipidemia Obstructive sleep apnea syndrome Steatosis of liver HTN (hypertension) Venous insufficiency Anxiety disorder Primary osteoarthritis of left knee Chronic deep vein thrombosis (DVT) of femoral vein of left lower extremity (HCC) 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 machines and devices Diabetic peripheral neuropathy associated with type 2 diabetes mellitus (HCC) Gastroesophageal reflux disease Hypercoagulable state (HHS-HCC) 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 Respiratory: Negative for cough, shortness of breath and wheezing. Cardiovascular: Negative for chest pain, palpitations and leg swelling. Gastrointestinal: Negative for constipation, diarrhea, nausea and vomiting. Musculoskeletal: Positive for gait problem. L knee pain Neurological: Negative for dizziness, light-headedness and headaches. Objective Vital signs: BP 112/70 (Patient Position: Sitting) Pulse 74 Resp 16 Ht 5' 1 Wt 181 lb 9.6 oz SpO2 98% BMI 34.31 kg/m Physical Exam HENT: Head: Normocephalic. Mouth/Throat: Mouth: Mucous membranes are moist. Eyes: Pupils: Pupils are equal, round, and reactive to light. Cardiovascular: Rate and Rhythm: Normal rate and regular rhythm. Pulmonary: Effort: Pulmonary effort is normal. Breath sounds: Normal breath sounds. Musculoskeletal: Left knee: Swelling present. Decreased range of motion. Tenderness present. Skin: General: Skin is warm and dry. Neurological: Mental Status: She is alert and oriented to person, place, and time. Psychiatric: Mood and Affect: Mood normal. Assessment/Plan Assessment & Plan 1. Presurgical clearance. - A1C remains mildly elevated. - Physical exam findings are normal; no difficulty with anesthesia noted. -All questions and concerns addressed. -The patient was interviewed and examined. The patient's medical history and medications were reviewed. Patient is to follow guidance of surgical team regarding all medications. There are no uncontrolled medical problems at present. Patient is active and has no chest pain or dyspnea. All available PAT was reviewed. There are no medical contraindications for surgery noted at this time, and the patient is considered low risk for the planned upcoming procedure. The patient is cleared for surgery without additional testing. 2. Knee pain. - Reports severe knee pain, ongoing for an extended period, with excruciating pain when getting up from the toilet. - Cortisone shot on 01/09/2025 provided temporary relief; pain has returned. - Knee x-ray ordered today to rule out other underlying conditions. - Referral to training specialist for further evaluation and pain management. 3. Weight management. - Patient is curious about her weight; weighed 180 pounds on 01/09/2025. - Current weight is 181.6 pounds, indicating a gain of 1.6 pounds. - Patient is attempting to lose weight. 4. Blood glucose management. - Blood glucose levels are within the normal range. - Home health nurse monitoring blood glucose levels weekly. - Patient advised to continue current regimen and monitoring. Problem List Items Addressed This Visit Primary osteoarthritis of left knee Relevant Orders XR knee 3 views left (Completed) Ambulatory referral to Orthopaedic Surgery Other Visit Diagnoses Acute pain of left knee - Primary Relevant Orders XR knee 3 views left (Completed) Ambulatory referral to Orthopaedic Surgery Hallux malleus of right foot Callus Preoperative clearance Health Maintenance Topic Date Due Influenza Vaccine (1) 04/24/2025 Diabetes: Urine Protein Screening 03/04/2025 Diabetes: Hemoglobin A1C 04/11/2025 Diabetes: Retinopathy Screening 06/02/2025 Mammogram 12/07/2025 Medicare Annual Wellness (AWV) 01/09/2026 Colorectal Cancer Screening 12/27/2033 Pneumococcal Vaccine: 65+ Years Completed Immunization History [...] Venita Marques NP documented in this encounter [facility] 02-01-2025 History of Present illness Narrative Images from the original note [...] FOOT EXAM: Date of Last Foot Exam 02/01/25 Diabetic Shoe & Insert: Previous amputation of [...] or Silipos padding/toe spacers to prevent rubbing and continued development of the hyperkeratosis. 3. Also discussed use of moisturizing creams for overall increased hydration to the skin. 4. Discussed continued use of proper foot gear to avoid excess pressure over the callous site. Hallux Malleux: Discussed all treatment options with patient in detail - both conservative and surgical. The further conservative treatment options were discussed with the patient including padding, offloading, shoe gear modifications. The patient elects to proceed with surgical intervention at this time. The risks, complications, benefits, alternatives to surgery including 2nd opinion, OR personnel and santhosh and post-op care were discussed in detail with the patient. The elective nature of the procedure was also discussed in detail with the patient. Specific complications related to this surgery were also discussed including, but not limited to: possible infection, the need for oral or IV antibiotics, hospitalization, additional surgery including removal of hardware, prolonged pain, stiffness or reoccurrence. Other complications include blood clot, hematoma, loss of use, loss of toe, foot and or leg. We have reviewed the fact that prolonged swelling is possible up to a year after surgery and could delay return to normal shoes and activities. The clinical and radiographic findings were reviewed with the patient. Patient was instructed that they will be in a surgical shoe and may have to use a walker or crutches protected weight bearing on the surgical foot for at least 4-6 weeks. The patient was told that no guarantee could be made as to the outcome of the procedure patient consented to the proposed procedure: CORRECTION OF HALLUX MALLEUX DEFORMITY RIGHT FOOT. The patient will be contacted for surgical scheduling. The patient will call if any problems or questions arise prior to their surgery date. documented in this encounter [facility] 01-09-2025 History of Present illness Narrative documented in this encounter [facility] 01-04-2025 Evaluation note Diagnosis Onset Date Resolution History of DVT (deep vein thrombosis) acute January 04, 2025 8:39am History of pulmonary embolism acute January 04, 2025 8 :39am History of DVT (deep vein thrombosis) acute February 01, 2025 9:46am History of pulmonary embolism acute February 01, 2025 9:46am History of DVT (deep vein thrombosis) acute February 09, 2025 8:35am History of pulmonary embolism acute February 09, 2025 8:35am History of DVT (deep vein thrombosis) acute February 22, 2025 8:35am History of pulmonary embolism acute February 22, 2025 8 :35am History of DVT (deep vein thrombosis) acute March 09, 2025 10:19am History of pulmonary embolism acute March 09, 2025 10:19am [facility] Work Phone: 1(150) 605-459605-14-2025 Evaluation note* Diagnosis Onset Date Resolution Status Admit Date History of DVT (deep vein thrombosis) acute January 04, 2025 8 :39am History of pulmonary embolism acute January 04, 2025 8:39am History of DVT (deep vein thrombosis) acute February 01, 2025 9:46am History of pulmonary embolism acute February 01, 2025 9:46am History of DVT (deep vein thrombosis) acute February 09, 2025 8:35am History of pulmonary embolism acute February 09, 2025 8:35am History of DVT (deep vein thrombosis) acute February 22, 2025 8 :35am History of pulmonary embolism acute February 22, 2025 8:35am History of DVT (deep vein thrombosis) acute March 09, 2025 10:19am History of pulmonary embolism acute March 09, 2025 10:19am History of DVT (deep vein thrombosis) acute March 13, 2025 8:29am History of pulmonary embolism acute March 13, 2025 8:29am [facility] Work Phone: 1(687) 951-389005-14-2025 Evaluation note* Diagnosis Onset Date Resolution Status Admit Date History of DVT (deep vein thrombosis) acute January 04, 2025 8 :39am History of pulmonary embolism acute January 04, 2025 8:39am History of DVT (deep vein thrombosis) acute February 01, 2025 9:46am History of pulmonary embolism acute February 01, 2025 9:46am History of DVT (deep vein thrombosis) acute February 09, 2025 8:35am History of pulmonary embolism acute February 09, 2025 8:35am History of DVT (deep vein thrombosis) acute February 22, 2025 8 :35am History of pulmonary embolism acute February 22, 2025 8:35am History of DVT (deep vein thrombosis) acute March 09, 2025 10:19am History of pulmonary embolism acute March 09, 2025 10:19am History of DVT (deep vein thrombosis) acute March 13, 2025 8:29am History of pulmonary embolism acute March 13, 2025 8:29am History of DVT (deep vein thrombosis) acute March 17, 2025 8:40am History of pulmonary embolism acute March 17, 2025 8:40am [facility] Work Phone: 1(223) 406-347004-25-2025 History of Present illness Narrative* Radha Way, - 12/16/2024 9:00 AM EDT Images from the original note were not included. Nicol Franecs 1950 Nicol Frances is a 74 y.o. female presents with chief complaint of Mamms/Lt. axillary US w/exam HPI: HPI Nicol was being followed with US for an enlarged left axillary LN. She has no breast issues SUBJECTIVE: MEDICATIONS: ALLERGIES Current Outpatient Medications Medication Instructions acetaminophen (TYLENOL EXTRA STRENGTH) 1,000 mg, 2 times daily PRN BD Insulin Syringe U/F 30G X 1/2 0.5 ML [facility] cholecalciferol (VITAMIN D-3) 1,000 Units, Daily citalopram (CELEXA) 20 mg, Oral, Every morning clobetasol (Temovate) 0.05 % ointment Topical, 2 times daily clobetasol (Temovate) 0.05 % ointment Topical, 2 times daily Continuous Glucose Melting Operator (FreeStyle Carline 3 Crowley) device USE I DEVICE CONTINUOUSLY Continuous Glucose Sensor (FreeStyle Carline 3 Sensor) [facility] 1 Device, Does not apply, Every 14 days furosemide (LASIX) 20 mg, Oral, Daily glucose blood (OneTouch Verio) test strip USE TO TEST BLOOD SUGAR THREE TIMES A DAY DIRECTED insulin aspart protamine-insulin aspart (NovoLOG MIX 70/30) (70-30) 100 UNIT/ML injection Inject 16Units under the skin Daily in the Morning AND 12 Units at bedtime. Lancet Devices (Autolet) lancing device 1 each, 4 times daily Lancets (OneTouch Delica Plus [id number]) [facility] USE TO TEST BLOOD SUGAR 3 TIMES [...] disease Other specified forms Colitis Cough Depression ([facility]) Depressive disorder ([facility]) not elsewhere classified Displacement of lumbar intervertebral disc without myelopathy DVT (deep venous thrombosis) ([facility]) Encounter for current long-term use of 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s Erythema nodosum Essential hypertension, benign ([facility]) Generalized osteoarthrosis unspecified site Hallux hammertoe, left Hallux hammertoe, right Hallux malleus of right foot Hearing loss Hepatitis B Hyperlipidemia, unspecified ([facility]) Obstructive sleep apnea (adult) (pediatric) Orthostatic hypotension Osteoarthritis of knee 12/22/2019 PE (pulmonary thromboembolism) ([facility]) 04/21/2023 Primary osteoarthritis of first carpometacarpal joint of right hand Spinal stenosis in cervical region Type II or unspecified type diabetes mellitus with neurological manifestations, uncontrolled(250.62) ([facility]) Ulcerative colitis Unspecified Ulcerative colitis Other ulcerative colitis Ulcerative colitis 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 Fields COLONOSCOPY [...] Exam Vitals reviewed. Exam conducted with a welder shielded metal arc present. HENT: Head: Normocephalic. Eyes: Pupils: Pupils [...] with imaging but she didn't want to dothat either. She was okay with me seeing her in 1 year. I will order bilateral mamm's and left axillary US for that visit. documented in this [facility]04-09-2025 Evaluation note* Diagnosis Onset Date Resolution Status Admit Date History of DVT (deep vein thrombosis) acute November 30, 2024 8:37am History of pulmonary embolism acute November 30, 2024 8:37am History of DVT (deep vein thrombosis) acute January 04, 2025 8 :39am History of pulmonary embolism acute January 04, 2025 8:39am History of DVT (deep vein thrombosis) acute February 01, 2025 9:46am History of pulmonary embolism acute February 01, 2025 9:46am [facility] Work Phone: 1(957) 989-192504-09-2025 Evaluation note* Diagnosis Onset Date Resolution Status Admit Date History of DVT (deep vein thrombosis) acute November 30, 2024 8:37am History of pulmonary embolism acute November 30, 2024 8:37am History of DVT (deep vein thrombosis) acute January 04, 2025 8 :39am History of pulmonary embolism acute January 04, 2025 8:39am History of DVT (deep vein thrombosis) acute February 01, 2025 9:46am History of pulmonary embolism acute February 01, 2025 9:46am History of DVT (deep vein thrombosis) acute February 09, 2025 8:35am History of pulmonary embolism acute February 09, 2025 8:35am History of DVT (deep vein thrombosis) acute February 22, 2025 8 :35am History of pulmonary embolism acute February 22, 2025 8:35am [facility] Work Phone: 1(772) 739-827903-12-2025 Evaluation note* Diagnosis Onset Date Resolution Status Admit Date History of DVT (deep vein thrombosis) acute November 02, 2024 8:51am History of pulmonary embolism acute November 02, 2024 8:51am History of DVT (deep vein thrombosis) acute November 30, 2024 8:37am History of pulmonary embolism acute November 30, 2024 8:37am History of DVT (deep vein thrombosis) acute January 04, 2025 8 :39am History of pulmonary embolism acute January 04, 2025 8:39am [facility] Work Phone: 1(906) 442-152903-04-2025 History of Present illness Narrative* Venita Marques, UPPER LEATHER CUTTER - 10/25/2024 2:00 PM EST Images from [...] ointment Topical, 2 times daily Continuous Glucose Melting Operator (FreeStyle Carline 3 Crowley) device 1 Device, Does not apply, Continuous Continuous Glucose Sensor (FreeStyle Carline 3 Sensor) misc 1 Device, Does not apply, Every 14 days glucose blood (OneTouch Verio) test strip USE TO TEST BLOOD SUGAR THREE TIMES A DAY DIRECTED Lancet Devices (Autolet) lancing device 1 each, 4 times daily Lancets (Logia GroupTouch Delica Plus [id number]) misc USE TO TEST BLOOD SUGAR 3 [...] (CMS/HCC) Gastroesophageal reflux disease Hypercoagulable state (CMS/HCC) residential current use of 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 residential current use of insulin (CMS/HCC) Facet arthritis [...] headaches. She will return on Thursday to [facility] office after her podiatry appt provide an [...] follow-up. Venita Marques NP documented in this encounterWashington University Medical [id number] Evaluation note* Diagnosis Onset Date Resolution Status [...] pulmonary embolism acute November 30, 2024 8:37am [facility] Work Phone: 1(573) 329-129001-17-2025 Evaluation note* Diagnosis Onset Date Resolution Status [...] pulmonary embolism acute November 02, 2024 8:51am [facility] Work Phone: 1(166) 741-978201-17-2025 Evaluation note* Diagnosis Onset Date Resolution Status [...] pulmonary embolism acute November 30, 2024 8:37am [facility] Work Phone: 1(784) 503-804712-11-2024 Evaluation note* Diagnosis Onset Date Resolution Status [...] pulmonary embolism acute October 05, 2024 8:36am [facility] Work Phone: 1(991) 309-131212-11-2024 Evaluation note* Diagnosis Onset Date Resolution Status Admit Date History of DVT (deep vein thrombosis) acute August 03, 024 8:24am History of pulmonary embolism acute August 03, 2024 8:24am History of DVT (deep vein thrombosis) acute September 09 8:43am History of pulmonary embolism acute September 09, 2024 8:43am History of DVT (deep vein thrombosis) acute October 05, 025 8:36am History of pulmonary embolism acute October 05, 2024 8:36am Crohn's colitis acute October 07, 2024 9:04[facility] Work Phone: 1(276) 871-140612-09-2024 History of Present illness Narrative* Marlon Olman Branham DPM - 08/01/2024 8:30 AM EST [...] after her next appointment. documented in this encounterWashington University Medical [id number] Evaluation note* Diagnosis Onset Date Resolution Status Admit Date Crohn's colitis acute June 29, 2024 10:28am Internal hemorrhoids acute [facility] 2023 10:28am History of DVT (deep vein thrombosis) acute July 04, 024 8:29am History of pulmonary embolism acute July 04, 2024 8:29am History of DVT (deep vein thrombosis) acute August 03 024 8:24am History of pulmonary embolism acute August 03, 2024 8:24am History of DVT (deep vein thrombosis) acute September 09 8:43am History of pulmonary embolism acute September 09, 2024 8:43am [facility] Work Phone: 1(200) 847-651610-30-2024 History of Present illness Narrative* Adam Rodriguez NP - 06/22/2024 8:45 AM EDT Images [...] ointment Topical, 2 times daily glucose blood (SmallRiversuch Verio) test strip USE TO TEST BLOOD SUGAR THREE TIMES A DAY DIRECTED insulin aspart protamine-insulin aspart (NovoLOG Mix 70-30) (70-30) 100 UNIT/ML injection 12 Units,Subcutaneous, 2 times daily with meals Lancet Devices (Autolet) lancing device 1 each, 4 times daily Lancets (Logia GroupTouch Delica Plus [id number]) misc USE TO TEST BLOOD SUGAR 3 [...] all orders for this visit: Primary hypertension (CMS/HCC) - Basic metabolic panel; Future Mixed hyperlipidemia (CMS/HCC) -at goal with lipitor and zetia Obstructive sleep apnea syndrome -wears c-pap Peripheral venous insufficiency -chronic left leg edema from previous DVT Chronic deep vein thrombosis (DVT) of femoral vein of left lower extremity (CMS/HCC) 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 machines and devices Diabetic peripheral neuropathy associated with type 2 diabetes mellitus ([facility]) - Hemoglobin a1c with eag; Future - Basic metabolic panel; Future Gastroesophageal reflux disease without esophagitis -taking protonix Hypercoagulable state ([facility]) -on warfarin for DVT residential current use of 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 residential current use of insulin ([facility]) -advised to increase insulin to [...] today Ulcerative colitis without complications, unspecified location ([facility]) Need for immunization against influenza [...] otherwise she will needto 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 The rest the review systems is negative. She return here in three months for a BMP and also an A1c.Patient agrees with plan. Dr. Herzog was present in office suite today and is supervising patient care and available for consult. I'm following his plan of care for the above problems. Previous notes and plan were reviewed and followed. Adam Rodriguez, MSN, DRESSMAKER OR TAILOR-AUTOMATED TELLER MANAGER documented in this encounterWashington University Medical [id number] History of Present illness Narrative* Radha Way, DO - 04/29/2024 9:00 AM EDT Images [...] ointment Topical, 2 times daily glucose blood (OneTouch Verio) test strip USE TO TEST BLOOD SUGAR THREE TIMES A DAY DIRECTED insulin aspart protamine-insulin aspart (NovoLOG Mix 70-30) (70-30) 100 UNIT/ML injection 12 Units,Subcutaneous, 2 times daily with meals Lancet Devices (Autolet) lancing device 1 each, Other, 4 times daily Lancets (OneTouch Delica Plus [id number]) misc USE TO TEST BLOOD SUGAR 3 [...] disc without myelopathy DVT (deep venous thrombosis) (CMS/[facility]) Encounter for current long-term use [...] type diabetes mellitus with neurological manifestations, uncontrolled(250.62) ([facility]/HCC) Ulcerative colitis (CMS/HCC) Unspecified Ulcerative colitis (CMS/HCC) Other ulcerative colitis Ulcerative colitis (CMS/HCC) Vasculitis ([facility]) Venous embolism and thrombosis unspecified deep [...] bone CATARACT EXTRACTION 03/2020 CHOLECYSTECTOMY 1986 COLONOSCOPY 2010 Ulcerative colitis COLONOSCOPY 11/2021 w/Dr. Fields COLONOSCOPY [...] Exam Vitals reviewed. Exam conducted with a welder shielded metal arc present. HENT: Head: Normocephalic. Eyes: Pupils: Pupils [...] Items Addressed This Visit Axillary lymphadenopathy - Ysabel Camarena's last bilateral mamm and Lt axillary us [...] will resume yearly evaluations. documented in this encounterWashington University Medical [id number] History of Present illness Narrative* Marlon Branham [...] over the callous site. documented in this encounterWashington University Medical [id number] Evaluation note* Diagnosis Onset Date Resolution Status [...] 29, 2024 10:28am Internal hemorrhoids acute Nove mb 2023 10:28am History of DVT (deep vein thrombosis) acute July 04, 024 8:29am History of pulmonary embolism acute July 04, 2024 8:29am [facility] Work Phone: 1(143) 461-775005-06-2024 [facility] History and physical note Author Sandy Clark [facility] December 28, 2023 8:33am Note Date/Time December 28, 2023 8:33am [facility] [address] [place] [address] Gastroenterology H&P Signed Patient: Nicol Frances MR#: [id number] : 1950 Acct:[id number] Age/Sex: 73 / F Adm Date: 4 Loc: Room: Type: [facility] Attending Dr: Sandy Clark DO Copies to: [...] <Electronically signed by Sandy Clark DO> 12/28/23832 [facility] Work Phone: 1(700) 385-248105-06-2024 [facility] Evaluation note* Encounter Date Diagnosis Assessment [...] or Wednesdays. Seen by Genie Escobedo PharmD [place] [employer] Other 02-05-2024 Telephone encounter Note* Telephone Encounter - Ruddy Cisneros - 09/28/2023 9:48 AM EST Patient is scheduled. [facility] [id number] Miscellaneous Notes* Telephone Encounter - Ruddy Cisneros [...] pt and schedule her an appointment to oyster picker her shoes that arrived. Thankyou! documented in this encounterWashington University Medical [id number] Telephone encounter Note* Telephone Encounter - Kimberly Berger LPN - 09/25/2023 10:23 AM EST Pt called and lvm that she was sorry she missed our call and for someone to give her a call back please and thank you! [facility] Medical [id number] Telephone encounter Note* Telephone Encounter - Ruddy Cisneros - 09/25/2023 9:55 AM EST Called patient to schedule appt to obtain shoes. Unable to LVM due to voicemail not set up. [facility] Medical [id number] Telephone encounter Note* Telephone Encounter - Kimberly Berger LPN - 09/24/2023 4:43 PM EST Can someone please call pt and schedule her an appointment to oyster picker her shoes that arrived. Thankyou! [facility] Medical [id number] Evaluation note* Encounter Date Diagnosis Assessment Notes [...] appointments Mondays, Tuesdays, or Wednesdays. Seen by Nirali ChatmanD Candidate/Tita Roberts PharmD [employer] Other 12-19-2023 Evaluation note* Encounter Date Diagnosis [...] or Wednesdays. Seen by Tita Roberts PharmD [employer] Other 11-21-2023 Evaluation note* Encounter Date Diagnosis [...] appointments Mondays, Tuesdays, or Wednesdays. Seen by Nirali RochaD Candidate/Tita Roberts PharmD [employer] Other 10-23-2023 Evaluation note* Encounter Date Diagnosis [...] to appointments. Seen by Tita Roberts PharmD [place] [employer] Other 09-07-2023 Evaluation note* Encounter Date Diagnosis [...] patient preference. Seen by Rachel Alonso PharmD [employer] Other 08-16-2023 Evaluation note* Encounter Date Diagnosis [...] dosing instructions as above. Seen by Anny Qureshi,[facility] [employer] Other 07-31-2023 Evaluation note* Encounter Date Diagnosis Assessment Notes Treatment Notes Treatment Clinical Notes Feb, Medication monitoring encounter (ICD-10 - Z51.81) Referring Provider: Darius Herzog Diagnosis: DVT/PE (1997, 2001) INR Goal: 2-3 INR: 2.3 Warfarin Tablet Size: 3mg Thursday: 3mg Thursday: 3mg Thursday: 1.5mg Thursday: 3mg : 3mg Thursday: 3mg Thursday: 1.5mg Total Weekly Dose: 18mg Continue plan above. Follow-up in 3 weeks. Patient denies missed doses, changes in medications or diet. Seen by Anny Qureshi,[facility] [employer] Other 07-19-2023 Evaluation note* Encounter Date Diagnosis [...] in medications or diet. Seen by Anny Qureshi,[facility] [employer] Other 07-03-2023 Evaluation note* Encounter Date Diagnosis Assessment Notes Treatment Notes Treatment Clinical Notes Feb, Medication monitoring encounter (ICD-10 - Z51.81) Referring Provider: Darius Herzog Diagnosis: DVT/PE (2001) INR Goal: 2-3 INR: 3.4 Warfarin Tablet Size: 3mg Thursday: 3mg Thursday: 3mg Thursday: 1.5mg Thursday: 3mg : 3mg Thursday: 3mg Thursday: 3mg Total Weekly Dose: 19.5mg Reduce to 1.5mg today, then continue current plan. Follow-up in 2 weeks. Unable to determine the cause of the subtherapeutic INR. Patient denies missed doses and changes in medications or diet. Seen by Anny Qureshi,[facility] [employer] Other 04-19-2023 Evaluation note* Encounter Date Diagnosis [...] in 4 weeks. Seen by Anny Qureshi, [facility] [employer] Other 03-22-2023 Evaluation note* Encounter Date Diagnosis [...] in 4 weeks. Seen by Anny Qureshi, [facility] [employer] Other 02-22-2023 Evaluation note* Encounter Date Diagnosis [...] Follow-up in 4 weeks. Seen by Anny uQreshi, [facility] [employer] Other 01-25-2023 Evaluation note* Encounter Date Diagnosis [...] in 4 weeks. Seen by Anny Qureshi, [facility] [employer] Other 12-28-2022 Evaluation note* Encounter Date Diagnosis [...] made if necessary. Seen by Anny Qureshi, [facility] [employer] Other 12-01-2022 Evaluation note* Encounter Date Diagnosis [...] high INR. Seen by Olu Rene PharmD [facility] [employer] Other 11-03-2022 Evaluation note* Encounter Date Diagnosis [...] can advise her. Seen by Lauren Vance [facility] [employer] Other 10-13-2022 Evaluation note* Encounter Date Diagnosis [...] Lovenox, will discontinue Lovenox at this time. [facility]. Seen by Olu Rene PharmD [employer] Other 09-29-2022 Evaluation note* Encounter Date Diagnosis [...] more details. Seen by Olu Rene PharmD [employer] Other 09-13-2022 Evaluation note* Encounter Date Diagnosis [...] increase dose as above. Seen by Tk Mora, [place] [employer] Other 08-16-2022 Evaluation note* Encounter Date Diagnosis Assessment Notes Treatment Notes Treatment Clinical Notes Mar, Medication monitoring encounter (ICD-10 - Z51.81) Referring Provider: Darius Herzog Diagnosis: DVT/PE (2001) INR Goal: 2-3 INR: 1.8 Tablet Size: 3mg Thursday: 3mg Thursday: 3mg Thursday: 1.5mg Thursday: 3mg : 3mg Thursday: 3mg Thursday: 1.5mg Total Weekly Dose: 18mg Boost to 3mg today 04/08/22. Then continue above plan. Follow up in 4 weeks. Could not determine cause of low INR reading today. Patient presents to clinic with her Grandson. Seen by Jennifer Amezcua, [place] [employer] Other 07-21-2022 Evaluation note* Encounter Date Diagnosis [...] 's appointment. Seen by Tameka Churchill RN [employer] Other 07-07-2022 Evaluation note* Encounter Date Diagnosis [...] 's appointment. Seen by Olu Rene PharmD [employer] Other 06-27-2022 Evaluation note* Encounter Date Diagnosis [...] 's appointment. 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) [employer] Other 06-07-2022 Evaluation note* Encounter Date Diagnosis Assessment Notes Treatment Notes Treatment Clinical Notes Jan, Diarrhea (ICD-10 - R19.7) Jan, Colitis (ICD-10 - K52.9) CONTINUE SULFASALAZINE 500 MG 2 TABLETS THREE TIMES A DAY RTO 6 MONTHS Jan, Rectal bleeding (ICD-10 - K62.5) [employer] Other 05-31-2022 Evaluation note* Encounter Date Diagnosis Assessment Notes Treatment Notes Treatment Clinical Notes December, Medication monitoring encounter (ICD-10 - Z51.81) Referring Provider: Darius Herzog Diagnosis: DVT/PE (1997, 2001) INR Goal: 2-3 INR: 3.3 Tablet Size: 3mg Thursday: 3mg Thursday: 3mg Thursday: 1.5mg Thursday: 3mg : 3mg Thursday: 3mg Thursday: 1.5mg Total Weekly Dose: 18mg Hold warfarin today Thursday the continue above plan. Follow up in 2 weeks. See calendar. Please coordinate with 's appointment. Seen by Tameka Churchill RN [employer] Other 05-16-2022 Evaluation note* Encounter Date Diagnosis Assessment Notes Treatment Notes Treatment Clinical Notes December, Medication monitoring encounter (ICD-10 - Z51.81) Referring Provider: Darius Herzog Diagnosis: DVT/PE (2001) INR Goal: 2-3 INR: 1.4 Tablet Size: 3mg Thursday: 3mg Thursday: 3mg Thursday: 1.5mg Thursday: 3mg : 3mg Thursday: 3mg Thursday: 1.5mg Total Weekly Dose: 18mg Boost an additional 1.5mg today 01/06/22, then begin new plan a 9% increase. Follow up in 2 weeks. No reason found for low INR. See calendar. Please coordinate with 's appointment. Seen by Marita Luo LPN [employer] Other 05-02-2022 Evaluation note* Encounter Date Diagnosis [...] 's appointment. Seen by Tameka Churchill RN [employer] Other 04-20-2022 Evaluation note* Encounter Date Diagnosis [...] will resume. Seen by Tameka Churchill RN [employer] Other 04-07-2022 Evaluation note* Encounter Date Diagnosis Assessment Notes Treatment Notes Treatment Clinical Notes Nov, Diarrhea (ICD-10 - R19.7) Nov, Rectal bleeding (ICD-10 - K62.5) Nov, Colitis (ICD-10 - K52.9) [employer] Other 04-06-2022 Evaluation note* Encounter Date Diagnosis Assessment Notes Treatment Notes Treatment Clinical Notes Nov, Medication monitoring encounter (ICD-10 - Z51.81) Referring Provider: Darius Herzog Diagnosis: DVT/PE (2001) INR Goal: 2-3 INR: 1.7 Tablet Size: 3mg Thursday: 3mg Thursday: 3mg Thursday: 1.5mg Thursday: 3mg : 1.5mg Thursday: 3mg Thursday: 1.5mg Total Weekly Dose: 16.5mg Boost additional 1.5mg , Monday 11/27 and then begin new plan, a 5% increase. Follow up in 2 weeks. Patient was recently discharged from hospital for having diarrhea for 1 month. Patient states this is showing improvement. Seen by Tameka Churchill RN [employer] Other 03-22-2022 Evaluation note* Encounter Date Diagnosis Assessment Notes Treatment Notes Treatment Clinical Notes Oct, Medication monitoring encounter (ICD-10 - Z51.81) Referring Provider: Darius Herzog Diagnosis: DVT/PE (1997, 2001) INR Goal: 2-3 INR: 1.9 Tablet Size: 3mg Thursday: 1.5mg Thursday: 3mg Thursday: 1.5mg Thursday: 3mg : 1.5mg Thursday: 3mg Thursday: 1.5mg Total Weekly Dose: 15mg Boost additional 1.5mg today, 11/12, then continue above plan. Follow up in 2 weeks. Seen by Tameka Churchill RN [employer] Other 03-10-2022 Evaluation note* Encounter Date Diagnosis [...] 2 weeks. Seen by Tameka Churchill RN [employer] Other 02-21-2022 Evaluation note* Encounter Date Diagnosis Assessment Notes Treatment Notes Treatment Clinical Notes Sep, Medication monitoring encounter (ICD-10 - Z51.81) Referring Provider: Darius Herzog Diagnosis: DVT/PE (1997, 2001) INR Goal: 2-3 INR: 2.5 Tablet Size: 3mg Regino: 1.5mg Thursday: 3mg Thursday: 1.5mg Thursday: 3mg : 1.5mg Thursday: 3mg Thursday: 1.5mg Total Weekly Dose: 15mg Continue above plan. Follow up in 2 weeks. Seen by Tameka Churchill RN [facility] [employer] Other 02-07-2022 Evaluation note* Encounter Date Diagnosis Assessment Notes Treatment Notes Treatment Clinical Notes Sep, Medication monitoring encounter (ICD-10 - Z51.81) Referring Provider: Darius Herzog Diagnosis: DVT/PE (1997, 2001) INR Goal: 2-3 INR: 2.6 Tablet Size: 3mg Thursday: 1.5mg Thursday: 3mg Thursday: 1.5mg Thursday: 3mg : 1.5mg Thursday: 3mg Thursday: 1.5mg Total Weekly Dose: 15mg Continue above plan. Follow up in 2 weeks. Seen by Tameka Churchill RN [employer] Other 01-20-2022 Evaluation note* Encounter Date Diagnosis Assessment Notes Treatment Notes Treatment Clinical Notes Aug, Medication monitoring encounter (ICD-10 - Z51.81) Referring Provider: Darius Herzog Diagnosis: DVT/PE (1997, 2001) INR Goal: 2-3 INR: 1.8 Tablet Size: 3mg Thursday: 1.5mg Thursday: 3mg Thursday: 1.5mg Thursday: 3mg : 1.5mg Thursday: 3mg Thursday: 1.5mg Total Weekly Dose: 15mg Boost additional 1.5mg today and then continue above plan. Follow up in 2 weeks. Seen by Tameka Churchill RN [employer] Other 01-06-2022 Evaluation note* Encounter Date Diagnosis [...] 2 weeks. Seen by Tameka Churchill RN [employer] Other 12-09-2021 Evaluation note* Encounter Date Diagnosis [...] 2 weeks. Seen by Tameka Churchill RN [employer] Other 11-22-2021 Evaluation note* Encounter Date Diagnosis Assessment Notes Treatment Notes Treatment Clinical Notes Jun, Medication monitoring encounter (ICD-10 - Z51.81) Referring Provider: Darius Herzog Diagnosis: DVT/PE (2001) INR Goal: 2-3 INR: 2.6 Tablet Size: 3mg Thursday: 1.5mg Thursday: 3mg Thursday: 1.5mg Thursday: 3mg : 1.5mg Thursday: 1.5mg Thursday: 3mg Total Weekly Dose: 15mg Continue above plan. Follow up in 2 weeks. Seen by Tameka Churchill RN [employer] Other 11-10-2021 Evaluation note* Encounter Date Diagnosis Assessment Notes Treatment Notes Treatment Clinical Notes Jun, Medication monitoring encounter (ICD-10 - Z51.81) Referring Provider: Darius Herzog Diagnosis: DVT/PE (2001) INR Goal: 2-3 INR: 2.4 Tablet Size: 3mg Regino: 1.5mg Howard: 3mg Thursday: 1.5mg Thursday: 3mg : 1.5mg Thursday: 1.5mg Thursday: 3mg Total Weekly Dose: 15mg Continue above plan. Follow up in 2 weeks. Seen by Tameka Churchill RN [employer] Other 10-27-2021 Evaluation note* Encounter Date Diagnosis Assessment Notes Treatment Notes Treatment Clinical Notes May, Medication monitoring encounter (ICD-10 - Z51.81) Referring Provider: Darius Herzog Diagnosis: DVT/PE (1997, 2001) INR Goal: 2-3 INR: 1.8 Tablet Size: 3mg Regino: 1.5mg Howard: 1.5mg Shasha: 1.5mg Thursday: 3mg : 1.5mg Thursday: 1.5mg Thursday: 3mg Total Weekly Dose: 10.5mg Boost additional 1.5mg today and then continue above plan. Patient admits to missing last night's dose. Follow up in 1 week. Schedule with 's appt. Seen by Tameka Churchill RN [employer] Other 10-05-2021 Evaluation note* Encounter Date Diagnosis Assessment Notes Treatment Notes Treatment Clinical Notes May, Medication monitoring encounter (ICD-10 - Z51.81) Referring Provider: Darius Herzog Diagnosis: DVT/PE (2001) INR Goal: 2-3 INR: 2.1 Tablet Size: 3mg Regino: 1.5mg Thursday: 1.5mg Thursday: 1.5mg Thursday: 3mg : 1.5mg Thursday: 1.5mg Thursday: 3mg Total Weekly Dose: 13.5mg Continue above plan. Follow up in 3 weeks. Schedule with 's appt. Seen by Tameka Churchill RN [employer] Other 09-22-2021 Evaluation note* Encounter Date Diagnosis Assessment Notes Treatment Notes Treatment Clinical Notes Apr, Medication monitoring encounter (ICD-10 - Z51.81) Referring Provider: Darius Herzog Diagnosis: DVT/PE (1997, 2001) INR Goal: 2-3 INR: 1.6 Tablet Size: 3mg Regino: 1.5mg Howard: 1.5mg Thursday: 1.5mg Thursday: 3mg : 1.5mg Thursday: 1.5mg Thursday: 3mg Total Weekly Dose: 13.5mg Boost an extra 1.5mg for two days, then continue above plan. Continue Lovenox injections for two days at infusion center for low INR per patient preference. Follow up in 2 weeks. Infusion Center was notified. Patient schedules with . Seen by Olu Rene, [place] [employer] Other chief complaint+Reason for visit Narrative* Chief Complaint DVT INR Follow Up blood in stool/change in stool/ref M. Sarah R59.0 Procedure Instructions + Lovenox Instructions Reason for Visit History of DVT (deep vein thrombosis) History of pulmonary embolism Rectal bleed Ulcerative colitis History of DVT (deep vein thrombosis) History of pulmonary embolism [facility] Work Phone: Chiyi complaint+Reason for visit Narrative* Chief Complaint DVT INR Follow Up blood in stool/change in stool/ref M. Sarah R59.0 Procedure Instructions + Lovenox Instructions ulcerative colitis/blood in stool ulcerative colitis/blood in stool Reason for Visit History of DVT (deep vein thrombosis) History of pulmonary embolism Rectal bleed Ulcerative colitis History of DVT (deep vein thrombosis) History of pulmonary embolism [facility] Work Phone: chief complaint+Reason for visit Narrative* Chief Complaint INR Follow Up blood in stool/change in stool/ref M. Sarha R59.0 Procedure Instructions + Lovenox Instructions ulcerative [...] (deep vein thrombosis) History of pulmonary embolism [facility] Work Phone: chief complaint+Reason for visit Narrative* Chief Complaint blood in stool/betancur e in stool/ref M. Sarah R59.0 Procedure Instructions [...] (deep vein thrombosis) History of pulmonary embolism [facility] Work Phone: Chief complaint+Reason for visit Narrative* Chief Complaint ulcerative [...] (deep vein thrombosis) History of pulmonary embolism [facility] Work Phone: evaluation noteNo InformationNort QPSoftware Other evaluation noteNort [employer]PSoftware Other evaluation noteNo assessment information available [facility] Work Phone: evaluation note* Diagnosis Onset Date Resolution Status HTN (hypertension) acute Shakiness acute Weakness acute [facility] Work Phone: Evaluation note* Diagnosis Onset Date Resolution Status History of DVT (deep vein thrombosis) acute History of pulmonary embolism acute [facility] Work Phone: Evaluation note* Diagnosis Onset Date Resolution Status History of DVT (deep vein thrombosis) acute History of pulmonary embolism acute Blood in stool acute Ulcerative colitis acute [facility] Work Phone: Evaluation note* Diagnosis Onset Date Resolution Status History of DVT (deep vein thrombosis) acute History of pulmonary embolism acute Rectal bleed acute Ulcerative colitis acute [facility] Work Phone: Evaluation note* Diagnosis Onset Date Resolution Status History of DVT (deep vein thrombosis) acute History of pulmonary embolism acute Rectal bleed acute Ulcerative colitis acute History of DVT (deep vein thrombosis) acute History of pulmonary embolism acute [facility] Work Phone: Evaluation note* Diagnosis Onset [...] thrombosis) acute History of pulmonary embolism acute [facility] Work Phone: Evaluation note* Diagnosis Onset Date Resolution Status Rectal bleed acute Ulcerative colitis acute History of DVT (deep vein thrombosis) acute History of pulmonary embolism acute History of DVT (deep vein thrombosis) acute History of pulmonary embolism acute History of DVT (deep vein thrombosis) acute History of pulmonary embolism acute History of DVT (deep vein thrombosis) acute History of pulmonary embolism acute [facility] Work Phone: Evaluation note* Diagnosis Onset Date Resolution Status History of DVT (deep vein thrombosis) acute History of pulmonary embolism acute History of DVT (deep vein thrombosis) acute History of pulmonary embolism acute History of DVT (deep vein thrombosis) acute History of pulmonary embolism acute History of DVT (deep vein thrombosis) acute History of pulmonary embolism acute [facility] Work Phone: Evaluation note* Diagnosis Primary hypertension ([facility])- Primary Unspecified essential hypertension Mixed hyperlipidemia ([facility]) Mixed hyperlipidemia Obstructive sleep apnea syndrome Obstructive sleep apnea (adult) (pediatric) Peripheral venous insufficiency Unspecified venous (peripheral) insufficiency Chronic deep vein thrombosis (DVT) of femoral vein of left lower extremity ([facility]) 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 machines and devices Diabetic peripheral neuropathy associated with type 2 diabetes mellitus ([facility]) Gastroesophageal reflux disease without esophagitis Esophageal reflux Hypercoagulable state ([facility]) Primary hypercoagulable state 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 ([facility]) OAB (overactive bladder) Class 1 obesity Spinal stenosis of lumbosacral region Ulcerative colitis without complications, unspecified location ([facility]) Need for immunization against influenza [...] thrombosis) acute History of pulmonary embolism acute [facility] Work Phone: Evaluation note* Diagnosis Type II diabetes mellitus with neurological manifestations (CMS/HCC)- Primary Type II or unspecified type diabetes mellitus with neurological manifestations, not stated as uncontrolled Onychomycosis Dermatophytosis of nail Corns and callosities Hallux malleus, left Pain in both feet [facility] Diagnosis Type II diabetes mellitus with neurological manifestations (CMS/HCC)- Primary Type II or unspecified type diabetes mellitus with neurological manifestations, not stated as uncontrolled Onychomycosis Dermatophytosis of nail Corns and callosities Pain in both feet [facility] Diagnosis Axillary lymphadenopathy- Primary Enlargement of lymph nodes [facility] Diagnosis Primary osteoarthritis of right knee- Primary Hypercoagulable state (CMS/HCC) Primary hypercoagulable state Diabetic peripheral neuropathy associated with type 2 diabetes mellitus ([facility]/HCC) Primary hypertension ([facility]/HCC) Unspecified essential hypertension Ulcerative colitis without complications, unspecified location ([facility]) residential current use of insulin ([facility]/HCC) 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 Sacral ulcer, limited to breakdown of skin ([facility]) [facility] Diagnosis Nonintractable headache, unspecified chronicity pattern, unspecified headache type- Primary Neck pain Cervicalgia Paresthesia of left arm Disturbance of skin sensation Numbness of fingers Disturbance of skin sensation [facility] Diagnosis Leg numbness- Primary Disturbance of skin sensation [facility] Diagnosis Diabetic peripheral neuropathy associated with type 2 diabetes mellitus (CMS/HCC)- Primary 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) Mixed hyperlipidemia (CMS/HCC) Mixed hyperlipidemia Hypercoagulable state (CMS/HCC) Primary hypercoagulable state 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 Steatosis of liver Other chronic nonalcoholic liver disease Primary hypertension (CMS/HCC) Unspecified essential hypertension Venous insufficiency Unspecified venous (peripheral) insufficiency Primary osteoarthritis of left knee [facility] Diagnosis Axillary lymphadenopathy- Primary Enlargement of lymph nodes H/O diagnostic mammography [facility] Diagnosis Medicare annual wellness visit, subsequent- Primary Advance care planning Other specified counseling Type 2 diabetes mellitus with stage 3a chronic kidney disease, with long-term current use of insulin (HCC) (CMS/HCC) Diabetic peripheral neuropathy associated with type 2 diabetes mellitus (CMS/HCC) 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) Mixed hyperlipidemia (CMS/HCC) Mixed hyperlipidemia Steatosis of liver Other chronic nonalcoholic liver disease Primary hypertension (CMS/HCC) Unspecified essential hypertension Chronic deep vein thrombosis (DVT) of femoral vein of left lower extremity (CMS/HCC) Spinal stenosis of lumbosacral region residential current use of 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 [facility] Diagnosis Onychomycosis- Primary Dermatophytosis of nail Corns and callosities Hallux malleus, right Type II diabetes mellitus with neurological manifestations (CMS/HCC) Type II or unspecified type diabetes mellitus with neurological manifestations, not stated as uncontrolled Pain in both feet [facility] Diagnosis Hallux malleus, right- Primary Right foot pain Pain in soft tissues of limb [facility] Diagnosis Acute pain of left knee- Primary Primary osteoarthritis of left knee Hallux malleus of right foot Callus Corns and callosities Preoperative clearance Unspecified pre-operative examination documented in this encounter [facility]* Diagnosis Surgery follow-up examination- Primary Follow-up examination, following unspecified surgery Hallux malleus, right Right foot pain Pain in soft tissues of limb Ulcer of great toe, right, limited to breakdown of skin (HCC) [facility] Diagnosis Acute pain of left knee- Primary Primary osteoarthritis of left knee [facility] Diagnosis Surgery follow-up examination- Primary Follow-up examination, following unspecified surgery Hallux malleus, right Right foot pain Pain in soft tissues of limb [facility] Diagnosis Surgery follow-up examination- Primary Follow-up examination, following unspecified surgery Hallux malleus, right Right foot pain Pain in soft tissues of limb Ulcer of great toe, right, limited to breakdown of skin (HCC) documented in this encounter [facility] HealthcareHistory general Narrative - Reported* Type Description [...] surgical Hx Hospitalization History acute gastroenteritis 04/30-05/01/18 [facility] Refund Exchange Other History general Narrative - Reported* Type [...] Dr. Maynard. 1 Hospitalization History see above [facility] Other [facility] Other Hospital Discharge instructions Additional Instructions Continue your pain pills at home Return symptoms are worse Follow-[facility]oped[facility] not [facility]: Hospital Discharge instructions Additional Instructions Continue current meds [facility] if [facility] are [facility]: Reason for referral (narrative)No reason for referral [facility] Work Phone: Chief Complaint and Reason [...] Up blood in stool/change in stool/ref Kevin Rodriguez Reason for Visit History of DVT (deep vein thrombosis) History of pulmonary embolism Blood in stool Ulcerative colitis Chief Complaint DVT INR Follow Up blood in stool/change in stool/ref Kevin Rodriguez R59.0 Reason for Visit History of DVT [...] 8:24am History of DVT (deep vein thrombosis) [facility] 2024 8:43am History of pulmonary embolism September 092024 8:43am Chief Complaint Admit Date INR Follow Up August 03, 2024 8:24am INR f/u October 05, 2024 8:36am Reason for Visit Admit Date History of DVT (deep vein thrombosis) De 2023 8:24am History of pulmonary embolism July 242023 8:24am History of DVT (deep vein thrombosis) [facility] 2024 8:43am History of pulmonary embolism September 092024 8:43am History of DVT (deep vein thrombosis) [facility] 2024 8:36am History of pulmonary embolism September 242024 8:36am Chief Complaint Admit Date INR Follow Up August 03, 2024 8:24am INR f/u October 05, 2024 8:36am 3 month Follow up/colitis October 07, 2024 9:04am Reason for Visit Admit Date History of DVT (deep vein thrombosis) De [facility] 2023 8:24am History of pulmonary embolism July 242023 8:24am History of DVT (deep vein thrombosis) [facility] 2024 8:43am History of pulmonary embolism September 092024 8:43am History of DVT (deep vein thrombosis) [facility] 2024 8:36am History of pulmonary embolism September 242024 8:36am Crohn's colitis October 07, 2024 9:04am Chief Complaint Admit Date INR f/u October 05, 2024 8:36am 3 month Follow up/colitis October 07, 2024 9:04am INR f/u November 02, 2024 8:5 1am Reason for Visit Admit Date History of DVT (deep vein thrombosis) [facility] 2024 8:43am History of pulmonary embolism September 092024 8:43am History of DVT (deep vein thrombosis) [facility] 2024 8:36am History of pulmonary embolism September 242024 8:36am Crohn's colitis October 07, 2024 9:04am History of DVT (deep vein thrombosis) [facility] 2024 8:51am History of pulmonary embolism October 8:51am Chief Complaint Admit Date INR f/u October 05, 2024 8:36am 3 month Follow up/colitis October 07, 2024 9:04am INR f/u November 02, 2024 8:5 1am INR f/u November 30, 2024 8:37 am Reason for Visit Admit Date History of DVT (deep vein thrombosis) [facility] 2024 8:43am History of pulmonary embolism September 092024 8:43am History of DVT (deep vein thrombosis) [facility] 2024 8:36am History of pulmonary embolism September 242024 8:36am Crohn's colitis October 07, 2024 9:04am History of DVT (deep vein thrombosis) [facility] 2024 8:51am History of pulmonary embolism October [...] Date History of DVT (deep vein thrombosis) [facility] 2024 8:36am History of pulmonary embolism September 242024 8:36am Crohn's colitis October 07, 2024 9:04am History of DVT (deep vein thrombosis) [facility] 2024 8:51am History of pulmonary embolism October 8:51am History of DVT (deep vein thrombosis) Ap ril 2024 8:37am History of pulmonary embolism November 30, 2024 8:37am Chief Complaint Admit Date INR f/u November 02, 2024 8:5 1am INR f/u November 30, 2024 8:37 am R92.8 December 07, 2024 8:3 4am Reason for Visit Admit Date History of DVT (deep vein thrombosis) [facility] 2024 8:51am History of pulmonary embolism October 8:51am History of DVT (deep vein thrombosis) Ap ril 2024 8:37am History of pulmonary embolism November 30, 2024 8:37am History of DVT (deep vein thrombosis) [facility] 2024 8:39am History of pulmonary embolism January 04, 2025 8:39am Chief Complaint Admit Date INR f/u November 30, 2024 8:37 am R92.8 December 07, 2024 8:3 4am INR f/u February 01, 2025 9:46 am Reason for Visit Admit Date History of DVT (deep vein thrombosis) Ap ril 2024 8:37am History of pulmonary embolism November 30, 2024 8:37am History of DVT (deep vein thrombosis) Ma y 2024 8:39am History of pulmonary embolism January 04, 2025 8:39am History of DVT (deep vein thrombosis) Ju ne 2024 9:46am History of pulmonary embolism February 01, 2025 9:46am Chief Complaint Admit Date INR f/u November 30, 2024 8:37 am R92.8 December 07, 2024 8:3 4am INR f/u February 01, 2025 9:46 am INR f/u - See [facility] February 09, 2025 8:35 am INR f/u procedure instr lovenox February 8:35am Reason for Visit Admit Date History of DVT (deep vein thrombosis) Ap ril 2024 8:37am History of pulmonary embolism November 30, 2024 8:37am History of DVT (deep vein thrombosis) Ma y 2024 8:39am History of pulmonary embolism January 04, 2025 8:39am History of DVT (deep vein thrombosis) Ju ne 2024 9:46am History of pulmonary embolism February 01, 2025 9:46am History of DVT (deep vein thrombosis) [facility] 2024 8:35am History of pulmonary embolism February 09, 2025 8:35am History of DVT (deep vein thrombosis) Ju 2024 8:35am History of pulmonary embolism February 22, 2025 8:35am Chief Complaint Admit Date INR f/u February 01, 2025 9:46 am INR f/u - See [facility] February 09, 2025 8:35 am INR f/u procedure instr lovenox February 8:35am Post-Procedure Lovenox March 09, 2025 1 0:19am Reason for Visit Admit Date History of DVT (deep vein thrombosis) Ma y 2024 8:39am History of pulmonary embolism January 04, 2025 8:39am History of DVT (deep vein thrombosis) [facility] 2024 9:46am History of pulmonary embolism February 01, 2025 9:46am History of DVT (deep vein thrombosis) [facility] 2024 8:35am History of pulmonary embolism February 09, 2025 8:35am History of DVT (deep vein thrombosis) [facility] 2024 8:35am History of pulmonary embolism February 22, 2025 8:35am History of DVT (deep vein thrombosis) [facility] 2024 10:19am History of pulmonary embolism March 09, 2025 10:19am Chief Complaint Admit Date INR f/u February 01, 2025 9:46 am INR f/u - See [facility] February 09, 2025 8:35 am INR f/u procedure instr lovenox February 8:35am Post-Procedure Lovenox March 09, 2025 1 0:19am INR Follow Up March 13, 2025 8:29 am Reason for Visit Admit Date History of DVT (deep vein thrombosis) Ma y 2024 8:39am History of pulmonary embolism January 04, 2025 8:39am History of DVT (deep vein thrombosis) [facility] 2024 9:46am History of pulmonary embolism February 01, 2025 9:46am History of DVT (deep vein thrombosis) [facility] 2024 8:35am History of pulmonary embolism February 09, 2025 8:35am History of DVT (deep vein thrombosis) [facility] 2024 8:35am History of pulmonary embolism February 22, 2025 8:35am History of DVT (deep vein thrombosis) [facility] 2024 10:19am History of pulmonary embolism March 09, 2025 10:19am History of DVT (deep vein thrombosis) [facility] 2024 8:29am History of pulmonary embolism March 13, 2025 8:29am Chief Complaint Admit Date INR f/u February 01, 2025 9:46 am INR f/u - See [facility] February 09, 2025 8:35 am INR f/u procedure instr lovenox February 8:35am Post-Procedure Lovenox March 09, 2025 1 0:19am INR Follow Up March 13, 2025 8:29 am INR Follow Up See [facility] March 17, 2025 8:4 0am Reason for Visit Admit Date History of DVT (deep vein thrombosis) Ma y 2024 8:39am History of pulmonary embolism January 04, 2025 8:39am History of DVT (deep vein thrombosis) Ju ne 2024 9:46am History of pulmonary embolism February 01, 2025 9:46am History of DVT (deep vein thrombosis) [facility] ne 2024 8:35am History of pulmonary embolism February 09, 2025 8:35am History of DVT (deep vein thrombosis) [facility] 2024 8:35am History of pulmonary embolism February 22, 2025 8:35am History of DVT (deep vein thrombosis) [facility] 2024 10:19am History of pulmonary embolism March 09, 2025 10:19am History of DVT (deep vein thrombosis) [facility] 2024 8:29am History of pulmonary embolism March 13, 2025 8:29am History of DVT (deep vein thrombosis) [facility] 2024 8:40am History of pulmonary embolism March 17, 2025 8:40am Family History No Family History Records Found [...] Reason Comments Mamms/Lt. axillary US w/exam Completed november Reason Comments 3 month follow up Patient [...] up for her ER visit at the [facility] on 12/06. She was seen for left [...] w/exam Reason Comments Medicare Annual Wellness Visit Radhamauricio munoz Patient presents today for an annual medicare wellness and 3 month follow up. BMP is in chart for review. Reason Comments Procedure Reason Comments Pain Specialty Diagnoses / Procedures Referred By Tylor munoz Referred To Contact Orthopaedic Surgery Diagnoses Acute pain of left knee Primary osteoarthritis of left knee Venita Marques, FLORESITA [address] [place] [address] Phone: tel: fax: Caro Hugo PA Phone: tel: fax: Referral ID Status Reason Start Date Expiration Date V isits Requested Visits Authorized [id number] Closed Specialty Services Required 02/13/2025 08/12/2025 1 1 Care Teams (unrecognized sec tion and content) Team Status: Active Member Role Status Dates Kristopher Herzog DO Primary Care Provider Active Team Status: Inactive Member Role Status Dates Kristopher Herzog DO Primary Care Provide r, Referring Provider Active Start: November 30, 2024 End: Avril 9th, 202Renee Qureshi [facility] Attending Provider Active Start: November 30, 2024 End: November 30, 2024 Team Status: Inactive Member Role Status Dates Kristopher Herzog DO Primary Care Provider Active Start: December 07, 2024 End: December 07, [address] DO Attending Provider Active Start: December 07, [...] Provide r, Referring Provider Active Start: February 01, 2025 End: February 01, 2025 Kiersten Qureshi RPH Attending Provider Active Start: February 01, 2025 End: February 01, 2025 Team Status: Active Member Role Status Dates [...] Kristopher Herzog DO Primary Care Provider, Attending Conner rahman Active Team Status: Inactive Member Role Status Dates Kristopher Herzog DO Primary Care Provider Active Radha Way DO Attending Provider Active Team Status: Inactive Member Role Status Dates Kristopher Herzog DO Primary Care Provider Active Edmond Branham MD Emergency Provider Active Team Status: Inactive Member Role Status Dates Kristopher Herzgo DO Primary Care Provider Active Tang Mcclellan MD Attending Provider Active Team Status: Inactive Member Role Status Dates Kristopher Herzog DO Primary Care Provider Active Marlon Molina DPM Attending Provider Active Team Status: Inactive Member Role Status Dates Kristopher Herzog DO Primary Care Provider, Attending Conner rahman Active Team Status: Active Member Role Status [...] Status: Inactive Member Role Status Dates Radha Way DO Attending Provider Active 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 Primary Care Provider Active [employer] Sales Director Relationship Specialty Start Date End Date Kristopher Herzog DO [address] [place] [address] PCP - Devoted 12/22/21 Kristopher Herzog DO [address] [place] [address] PCP - General Internal Medicine 12/30/22 Team [...] 07, 2023 End: December 07, [address] DO Attending Provider Active Start: December 07, [...] December 28, 2023 Sandy L Ly , Attending Provider, Other Provider Active Start: December [...] June 06, 2024 End: June 06, 2024 [employer] Sales Director Relationship Specialty Start Date End Date Kristopher Herzog DO [address] [place] [address] PCP - Devoted 12/22/21 Kristopher Herzog DO [address] [place] [address] PCP - General Internal Medicine 12/30/22 [employer] Sales Director Relationship Specialty Start Date End Date Kristopher Herzog DO [address] [place] [address] PCP - Devoted 12/22/21 Kristopher Herzog DO [address] [place] [address] PCP - General Internal Medicine 12/30/22 Team [...] July 04, 2024 End: July 04, 2024 [employer] Sales Director Relationship Specialty Start Date End Date Kristopher Herzog DO [address] [place] [address] PCP - Devoted 12/22/21 08/23/24 Kristopher Herzog DO [address] [place] [address] PCP - General Internal Medicine 12/30/22 [employer] Sales Director Relationship Specialty Start Date End Date Kristopher Herzog DO [address] [place] [address] PCP - Devoted 12/22/21 08/23/24 Kristopher Herzog DO [address] [place] [address] PCP - General Internal Medicine 12/30/22 [employer] Sales Director Relationship Specialty Start Date End Date Kristopher Herzog DO [address] [place] [address] PCP - Devoted 12/22/21 Kristopher Herzog DO [address] [place] [address] PCP - General Internal Medicine 12/30/22 [employer] Sales Director Relationship Specialty Start Date End Date Kristopher Herzog DO [address] [place] [address] PCP - Devoted 12/22/21 Kristopher eHrzog DO [address] [place] [address] PCP - General Internal Medicine 12/30/22 Team Status: Inactive Member Role Status Dates Kristopher Herzog DO Primary Care Provide r, Referring Provider Active Start: August 03, 2024 End: August 03, 2024 Kiersten Qureshi RP Attending Provider Active Start: August 03, 2024 End: August 03, 2024 Team Status: Inactive Member Role Status Dates Kristopher Herzog DO Primary Care Provide r, Referring Provider Active Start: September 09, 2024 End: September 09, 2024 Kiersten Qureshi RPH Attending Provider Active Start: September 09, 2024 End: September 09, 2024 [employer] Sales Director Relationship Specialty Start Date End Date Kristopher Herzog DO [address] [place] [address] PCP - General Internal Medicine 12/30/22 Team [...] October 07, 2024 End: October 07, 2024 [employer] Sales Director Relationship Specialty Start Date End Date Kristopher Herzog DO [address] [place] [address] PCP - General Internal Medicine 12/30/22 [employer] Sales Director Relationship Specialty Start Date End Date Kristopher Herzog DO [address] [place] [address] PCP - General Internal Medicine 12/30/22 [employer] Sales Director Relationship Specialty Start Date End Date Kristopher Herzog DO [address] [place] [address] PCP - General Internal Medicine 12/30/22 [employer] Sales Director Relationship Specialty Start Date End Date Kristopher Herzog DO [address] [place] [address] PCP - General Internal Medicine 12/30/22 [employer] Sales Director Relationship Specialty Start Date End Date Kristopher Herzog DO [address] [place] [address] PCP - General Internal Medicine 12/30/22 [employer] Sales Director Relationship Specialty Start Date End Date Kristopher Herzog DO [address] [place] [address] PCP - General Internal Medicine 12/30/22 [employer] Sales Director Relationship Specialty Start Date End Date Kristopher Herzog DO [address] [place] [address] PCP - General Internal Medicine 12/30/22 [employer] Sales Director Relationship Specialty Start Date End Date Kristopehr Herzog DO [address] [place] [address] PCP - General Internal Medicine 12/30/22 [employer] Exp[employer] Sales Director Relationship Specialty Start Date End Date Kristopher Herzog DO [address] [place] [address] PCP - General Internal Medicine 12/30/22 Team Status: Inactive Member Role Status Dates Kristopher Herzog DO Primary Care Provider Active Start: November 30, 2024 End: November 30, 2024 Kristopher Herzog DO Referring Provider Active St art: November 30, 2024 End: November 30, 2024 Kiersten Qureshi RPH Attending Provider Active Start: November 30, 2024 End: November 30, 2024 Team Status: Inactive Member Role Status Dates Kristopher Herzog DO Primary Care Provider Active Start: January 04, 2025 End: January 04, 2025 Kristopher Herzog DO Referring Provider Active St art: January 04, 2025 End: January 04, 2025 Kiersten Qureshi RPH Attending Provider Active Start: January 04, 2025 End: January 04, 2025 Team Status: Inactive Member Role Status Dates Kristopher Herzog DO Primary Care Provider Active Start: February 01, 2025 End: February 01, 2025 Kristopher Herzog DO Referring Provider Active St art: February 01, 2025 End: February 01, 2025 Kiersten Qureshi RPH Attending Provider Active Start: February 01, 2025 End: February 01, 2025 Team Status: Inactive Member Role Status Dates Kristopher Herzog DO Primary Care Provider Active Start: February 09, 2025 End: February 09, 2025 Kristopher Herzog DO Referring Provider Active St art: February 09, 2025 End: February 09, 2025 Kiersten Qureshi Olman Attending Provider Active Start: February 09, 2025 End: February 09, 2025 Team Status: Inactive Member Role Status Dates Kristopher Herzog DO Primary Care Provider Active Start: February 22, 2025 End: February 22, 2025 Kristopher Herzog DO Referring Provider Active St art: February 22, 2025 End: February 22, 2025 Tita Roberts PharmD Attending Provider Active Start: February 22, 2025 End: February 22, 2025 Global Exp[employer] Sales Director Relationship Specialty Start Date End Date Kristopher Herzog DO [address] [facility] [address] [place] [address] PCP - General Internal Medicine 12/30/22 Global Expansion Sales Director Relationship Specialty Start Date End Date Kristopher Herzog DO [address] [place] [address] PCP - General Internal Medicine 12/30/22 Global Exp[employer] Sales Director Relationship Specialty Start Date End Date Chuy Kristopher Rebekah [address] [place] [address] PCP - General Internal Medicine 12/30/22 Global Exp[employer] Sales Director Relationship Specialty Start Date End Date Chuy Kristopher DO Rebekah [address] [place] [address] PCP - General Internal Medicine 12/30/22 Team Status: Inactive Member Role Status Dates Kristopher Herzog DO Primary Care Provider Active Start: March 09, 2025 End: March 09, 2025 Kristopher Herzog DO Referring Provider Active St art: March 09, 2025 End: March 09, 2025 Tita Roberts PharmD Attending Provider Active Start: March 09, 2025 End: March 09, 2025 Team Status: Inactive Member Role Status Dates Kristopher Herzog DO Primary Care Provider Active Start: March 13, 2025 End: March 13, 2025 Kristopher Herzog DO Referring Provider Active St art: March 13, 2025 End: March 13, 2025 Tita Roberts PharmD Attending Provider Active Start: March 13, 2025 End: March 13, 2025 [employer] Sales Director Relationship Specialty Start Date End Date ChuyKristopher DO [address] [place] [address] PCP - General Internal Medicine 12/30/22 Team Status: Inactive Member Role Status Dates Kristopher Herzog DO Primary Care Provider Active Start: March 17, 2025 End: March 17, 2025 Kristopher Herzog DO Referring Provider Active St art: March 17, 2025 End: March 17, 2025 Kiersten Qureshi [facility] Attending Provider Active Start: March 17, 2025 End: March 17, 2025 [employer] Exp[employer] Sales Director Relationship Specialty Start Date End Date Karlos Morgan MD [address] [facility] [place] [address] PCP - General Family Medicine 03/17/25 Global Exp[employer] Sales Director Relationship Specialty Start Date End Date Karlos Morgan MD [address] [place] [address] PCP - General Family Medicine 03/17/25 Goals (unrecognized section and content) Goals may be documented in a n alternate section INFORMATION SOURCE (unrecogn ized section and content) DATE CREATED AUTHOR 12/18/2022 [facility] DATE CREATED AUTHOR AUTHOR'S ORGANIZ ATION 12/09/2024 [facility] DATE CREATED AUTHOR AUTHOR'S ORGANIZ ATION 03/24/2025 [facility] PSYCHIATRIC FOR RECORDS PERTAINING TO PATIENTS WHO ARE [...] BE BASED ON THE PRIMARY CLINICAL RECORDS. [facility] [employer] provides no warranty or guarantee of the accuracy or completeness of information in this document.
[2025-03-24 22:00] VITALS: PULSE 71; O2SAT 100
[2025-03-24 22:11] LABS: Hematocrit 35.2 % (36.0-48.0); Hemoglobin 12.0 g/dL (12.0-16.0); Immature Granulocytes Abs Auto 0.02 10^3/uL (0.00-0.03); Immature Granulocytes Pct Auto 0.3 % (0.0-0.5); Lymphocytes Absolute Auto 2.1 10^3/uL (1.2-3.8); Mean Corpuscular HGB Conc 34.1 g/dL (29.9-35.2); Mean Corpuscular Hemoglobin 32.0 pg (26.7-34.0); Mean Corpuscular Volume 93.9 fL (81.0-99.0); Platelet Count 270 10^3/uL (150-450); Red Blood Count 3.75 10^6/uL (4.20-5.40); White Blood Count 6.3 10^3/uL (4.0-11.0)
[2025-03-24 22:25] LABS: INR 1.11; Prothrombin Time 11.6 sec (9.0-11.6)
[2025-03-24 22:30] VITALS: PULSE 68; O2SAT 99
[2025-03-24 22:33] LABS: Alanine Aminotransferase 27 U/L (14-59); Albumin Globulin Ratio 0.9; Albumin Level 3.3 g/dL (3.4-5.0); Alkaline Phosphatase 64 U/L (46-116); Anion Gap 15.1; Aspartate Amino Transferase 18 U/L (15-37); Blood Urea Nitrogen 19.0 mg/dL (7.0-18.0); Calcium 9.0 mg/dL (8.5-10.1); Carbon Dioxide 24.5 mmol/L (21.0-32.0); Chloride 103 mmol/L (98-107); Estimated GFR (African America 51 (>=60 mL/min/1.73m^2); Estimated GFR (Non-African Ame 42 (>=60 mL/min/1.73m^2); Globulin 3.8 g/dL; Glucose 94 mg/dL (74-106); Lipase 11.0 U/L (16.0-77.0); NT Pro B Type Natriuretic Pept 159.0 pg/mL (<=900.0); Potassium 3.6 mmol/L (3.5-5.1); Sodium 139 mmol/L (136-145); Total Protein 7.1 g/dL (6.4-8.2)
--- NOTE | 2025-03-24 22:41 | XR_ITS ---
The [address] [address] Patient Name: ANDREA GLEZ MRN: [id number] date: 1950 Sex: F Assigned Patient Location: ER Current Patient Location: ER Accession/Order Number: [id number] Exam Date: 03/24/2025 23:18 Report Date: 03/24/2025 23:23 At the request of: STEVO DALEY MD Procedure: XR chest 2V PA AND LATERAL CHEST: CLINICAL HISTORY: chest pain COMPARISON: None FINDINGS: Unremarkable cardiomediastinal. Lungs clear. No effusion or pneumothorax. XR/XR chest 2V IMPRESSION: NO ACUTE CARDIOPULMONARY ABNORMALITY. Impression dictated by: Ricardo Johnston M.D. 03/24/2025 11:23 PM Dictation Location: [place] [address] Electronically authenticated by: [id number] Y Date: 03/24/2025 23:23
[2025-03-24] MEDS: 0.9 % SODIUM CHLORIDE 1,000 ML 500 ML IV (23:07)
[2025-03-24 23:08] VITALS: BP 141/74; PULSE 70; O2SAT 97
[2025-03-25] MEDS: FENTANYL CITRATE/PF 100 MCG/2 ML VIAL 25 MCG IV (00:39)
[2025-03-25] MEDS: ACETAMINOPHEN 500 MG TABLET 1000 MG PO (00:39)
== END 2025-03-25 01:05 | disposition home or self-care (01) ==
PROVIDERS: Emergency Provider Emergency Medicine; Family Provider Family Medicine; PCP Internal Medicine
DX: R07.89 Other chest pain (principal); Z86.718 Personal history of other venous thrombosis and embolism; Z79.01 Long term (current) use of 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s; R07.1 Chest pain on breathing
CPT/HCPCS: 36415; 71046; 80053; 83690; 83880; 84484; 85025; 85378; 85610; 93005; 96374; 96375; 99284; J2405; J3010

== ENCOUNTER 2025-03-31 15:44 | Emergency (ER) | payer MEDICARE, SELFPAY ==
[2025-03-31] VITALS (18 sets, daily range): BP systolic 119–165; BP diastolic 67–82; PULSE 59–87; O2SAT 95–99; BMI 335.9
--- NOTE | 2025-03-31 15:57 | ECG_ITS ---
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 Measurements Intervals [place] Rate: 66 P: -11 UT: 178 QRS: 5 QRSD: 78 T: 9 QT: 422 QTc: 436 Interpretive Statements 1100 Sinus rhythm 8102 Low QRS voltage in chest leads 9120 atypical ECG Compared to ECG 03/24/2025 21:30:07 Low QRS voltage now present Electronically Signed On 04-01-2025 7:39:34 EDT by SANDEEP MOHAN M.D.
--- NOTE | 2025-03-31 16:00 | CT_ITS ---
The [address] [address] Patient Name: ANDREA GLEZ MRN: [id number] date: 1950 Sex: F Assigned Patient Location: ED.MAIN Current Patient Location: ED.MAIN Accession/Order Number: [id number] Exam Date: 03/31/2025 17:41 Report Date: 03/31/2025 17:49 At the request of: LIBRADO HEWITT Procedure: CT angio abdomen pelvis CTA chest and CTA abdomen and pelvis . CLINICAL DATA: back/chest and abdominal pain. TECHNIQUE: Intravenous contrast-enhanced CT angiography of the chest and CT angiography of the abdomen and pelvis were performed. Axial, sagittal, coronal, and 3D-dimensional reconstructions were created and reviewed. These CT exams were performed using one or more of the following dose reduction techniques: Automated exposure control, adjustment of the mA and/or kV according to patient size, or use of iterative reconstruction technique. COMPARISON: None. FINDINGS: Chest: Mediastinum:Cardiomegaly with coronary artery disease. No aortic aneurysm or aortic dissection. Moderate-sized retrocardiac hiatal hernia with air level. No suspicious mediastinal or hilar adenopathy. Lungs:Lungs are clear. No effusion or pneumothorax. Soft tissues/Bones: Degenerative changes Disc ossified complexes identified mid to lower thoracic spine. Abdomen and pelvis: Organs:Cholecystectomy. Diminished attenuation liver may suggest fatty infiltration. Otherwise liver, spleen, adrenals, kidneys, and pancreas are unremarkable. Right renal cyst.[ GI: No bowel obstruction. Qmch-pt-yjzhfsor retained stool.[Appendix not visualized. Pelvis:[Bladder unremarkable. Uterus unremarkable. No adnexal mass.] Peritoneum/Retroperitoneum:No free air or free fluid. No evidence Aneurysm or dissection. Nqjt-eq-fcdcmqwr plaque identified involving the aorta and mesenteric vessels. No hemodynamically significant stenosis identified.[ Abd wall/Bones:Multilevel degenerative changes of the lumbar spine. Anterolisthesis L4 on L5 noted, measuring 9 mm likely caused by facet arthropathy. Bilateral foraminal narrowing at this level as a result.[ CT/CT angio chest IMPRESSION: Negative for aortic dissection or aneurysm. No hemodynamically significant stenosis identified involving the mesenteric vessels. Moderate size hiatal hernia. Impression dictated by: Ricardo Johnston M.D. 03/31/2025 5:49 PM Dictation Location: [place] [address] Electronically authenticated by: [id number] Y Date: 03/31/2025 17:49
--- NOTE | 2025-03-31 16:05 | CT_ITS ---
The [address] [address] Patient Name: ANDREA GLEZ MRN: [id number] date: 1950 Sex: F Assigned Patient Location: ED.MAIN Current Patient Location: ED.MAIN Accession/Order Number: [id number] Exam Date: 03/31/2025 17:41 Report Date: 03/31/2025 17:49 At the request of: LIBRADO HEWITT Procedure: CT angio abdomen pelvis CTA chest and CTA abdomen and pelvis . CLINICAL DATA: back/chest and abdominal pain. TECHNIQUE: Intravenous contrast-enhanced CT angiography of the chest and CT angiography of the abdomen and pelvis were performed. Axial, sagittal, coronal, and 3D-dimensional reconstructions were created and reviewed. These CT exams were performed using one or more of the following dose reduction techniques: Automated exposure control, adjustment of the mA and/or kV according to patient size, or use of iterative reconstruction technique. COMPARISON: None. FINDINGS: Chest: Mediastinum:Cardiomegaly with coronary artery disease. No aortic aneurysm or aortic dissection. Moderate-sized retrocardiac hiatal hernia with air level. No suspicious mediastinal or hilar adenopathy. Lungs:Lungs are clear. No effusion or pneumothorax. Soft tissues/Bones: Degenerative changes Disc ossified complexes identified mid to lower thoracic spine. Abdomen and pelvis: Organs:Cholecystectomy. Diminished attenuation liver may suggest fatty infiltration. Otherwise liver, spleen, adrenals, kidneys, and pancreas are unremarkable. Right renal cyst.[ GI: No bowel obstruction. Xusz-dd-hxwguihh retained stool.[Appendix not visualized. Pelvis:[Bladder unremarkable. Uterus unremarkable. No adnexal mass.] Peritoneum/Retroperitoneum:No free air or free fluid. No evidence Aneurysm or dissection. Zbvl-en-mchqhjay plaque identified involving the aorta and mesenteric vessels. No hemodynamically significant stenosis identified.[ Abd wall/Bones:Multilevel degenerative changes of the lumbar spine. Anterolisthesis L4 on L5 noted, measuring 9 mm likely caused by facet arthropathy. Bilateral foraminal narrowing at this level as a result.[ CT/CT angio abdomen pelvis IMPRESSION: Negative for aortic dissection or aneurysm. No hemodynamically significant stenosis identified involving the mesenteric vessels. Moderate size hiatal hernia. Impression dictated by: Ricardo Johnston M.D. 03/31/2025 5:49 PM Dictation Location: [place] [address] Electronically authenticated by: [id number] Y Date: 03/31/2025 17:49
--- NOTE | 2025-03-31 16:07 | ED.GENADUL1 ---
HPI HPI - General Adult General Chief complaint: Chest Pain Stated complaint: CHEST PAIN Time Seen by Provider: 03/31/25 15:54 Source: patient Mode of arrival: ambulance Limitations: no limitations History of Present Illness HPI narrative: Patient complaints of back and chest pain that started this morning at 730 with mid back pain she developed chest pain approximately 2:30 PM she did call her primary care physician who increased her pantoprazole without any relief. Patient does take Eliquis was given aspirin and nitro and route she states she got some improvement but not resolution of her symptoms. She is diabetic, hypertensive and hyperlipidemic denies any cardiac history. Denies any fever, chills, cough, abdominal pain, nausea, vomiting. Onset (ago): hour(s) Location: Reports chest and back Severity: moderate Treatments prior to arrival: Reports other Related Data Home Medications ?Medication ?Instructions ?Recorded ?Confirmed citalopram 20 mg tablet 20 mg PO DAILY 12/06/24 03/31/25 furosemide 20 mg tablet 20 mg PO DAILY 12/06/24 03/31/25 losartan 50 mg tablet 50 mg PO DAILY 12/06/24 03/31/25 pantoprazole 40 mg tablet,delayed 40 mg PO Q12H 12/06/24 03/31/25 release rosuvastatin 20 mg tablet 20 mg PO DAILY 12/06/24 03/31/25 apixaban 5 mg tablet (Eliquis) 5 mg PO BID 03/24/25 03/31/25 insulin aspar prot-insulin aspart 18 unit subcut BID 03/31/25 03/31/25 100 unit/mL (70-30) subcutaneous pen (Novolog Mix 70-30FlexPen U-100) Previous Rx's ?Medication ?Instructions ?Recorded polyethylene glycol 3350 17 17 g PO DAILY 4 days #68 grams 03/31/25 gram/dose oral powder (Miralax) Allergies Allergy/AdvReac Type Severity Reaction Status Date / Time No Known Drug Allergies Allergy Verified 03/24/25 21:26 Opioid HPI Opioid Management Most Recent Opioid Data: Last Pain Scale 3 Today, 18:09 Last ED Pain Assessment Today, 18:09 Last MAR Pain Assessment Today, 17:46 Review of Systems ROS Status of ROS 10 or more systems reviewed and unremarkable except as noted in history and below Constitutional Denies: fever or chills Eyes Denies: change in vision Ears, nose, mouth, and throat Denies: throat pain or neck pain Cardiovascular Reports: chest pain and swelling of feet/ankles; Denies: palpitations Respiratory Denies: cough or coughing up blood Gastrointestinal Denies: abdominal pain, nausea or vomiting Genitourinary Denies: blood in urine Musculoskeletal Reports: back pain Integumentary/Breast Denies: rash Neurological Denies: headache PFSH PFS Social History Little interest or pleasure in doing things: not at all Feeling down, depressed, or hopeless: not at all Exam Constitutional Vital Signs, click to edit/add: Last Vital Signs Pulse 62 03/31/25 18:10 Resp 14 03/31/25 18:10 BP 142/79 H 03/31/25 18:10 Pulse Ox 95 03/31/25 17:50 O2 Del Method Room Air 03/31/25 15:45 Documenting provider has reviewed patient's vital signs: yes Common normals: no apparent distress and oriented x3 HENMT Common normals: normocephalic, head/scalp atraumatic and moist oral mucous membranes Eye Common normals: PERRL and EOMs intact bilaterally General eye: normal appearance of both eyes Chest Common normals: palpation of chest normal Chest: inspection of the chest normal Respiratory Common normals: normal respiratory effort and clear to auscultation bilaterally Effort & inspection: able to speak in complete sentences GI Common normals: Normal to inspection, nondistended, normoactive bowel sounds present; tender Palpation: tender Details: RLQ and LUQ Extremity Common normals: abnormal to inspection Neuro Sensorium/orientation: awake and alert Psych Common normals: mental status grossly normal and thought process normal Course Vital Signs Vital signs: Vital Signs Pulse Rate 69 03/31/25 15:45 Respiratory Rate 20 03/31/25 15:45 Blood Pressure 119/67 03/31/25 15:45 Pulse Oximetry 97 03/31/25 15:45 Oxygen Delivery Method Room Air 03/31/25 15:45 Pulse Rate 62 03/31/25 18:10 Respiratory Rate 14 03/31/25 18:10 Blood Pressure 142/79 H 03/31/25 18:10 Pulse Oximetry 95 03/31/25 17:50 Oxygen Delivery Method Room Air 03/31/25 15:[address] [facility] Narrative Medical decision making narrative: Sudden onset back pain then chest pain with abdominal tenderness patient is on Eliquis she did receive some relief with nitroglycerin. Will add labs including CBC CMP troponin x 2 EKG with sudden onset back pain upper with chest pain lower abdominal pain we had CTA chest abdomen pelvis./ Torponin similar to prior two troponins last week 7.2pg/ml. Close with Dr. Knight reviewed CT recommends MiraLAX and disposition home. Will refer patient to cardiology as well as primary care and gastroenterology discussed plan of care with patient. Differential Diagnosis Differential Diagnosis: ACS, atypical chest pain, abdominal pain, aneurysm, Lab Data Lab results reviewed: Yes I reviewed the patient's lab results Labs: Lab Results 03/31/25 03/31/25 03/31/25 Range/Units 16:10 16:35 17:15 WBC 4.8 (4.0-11.0) 10^3/uL RBC 3.60 L (4.20-5.40) 10^6/uL Hgb 11.8 L (12.0-16.0) g/dL Hct 33.8 L (36.0-48.0) % MCV 93.9 (81.0-99.0) fL MCH 32.8 (26.7-34.0) pg MCHC 34.9 (29.9-35.2) g/dL RDW 12.4 (11.0-15.0) % Plt Count 201 (150-450) 10^3/uL MPV 10.1 (9.5-13.5) fL Neut % (Auto) 48.5 (43.0-75.0) % Lymph % (Auto) 40.4 (20.5-60.0) % [place] % (Auto) 6.8 (1.7-12.0) % Eos % (Auto) 3.3 (0.9-7.0) % Baso % (Auto) 0.8 (0.2-2.0) % Neut # (Auto) 2.3 (1.4-6.5) 10^3/uL Lymph # (Auto) 2.0 (1.2-3.8) 10^3/uL [place] # (Auto) 0.3 (0.3-0.8) 10^3/uL Eos # (Auto) 0.2 (0.0-0.7) 10^3/uL Baso # (Auto) 0.0 (0.0-0.1) 10^3/uL Abs Immat Gran (auto) 0.01 (0.00-0.03) 10^3/uL Imm/Tot Granulo (auto) 0.2 (0.0-0.5) % Sodium 141 (136-145) mmol/L Potassium 3.5 (3.5-5.1) mmol/L Chloride 106 (98-107) mmol/L Carbon Dioxide 25.4 (21.0-32.0) mmol/L Anion Gap 13.1 BUN 21.0 H (7.0-18.0) mg/dL Creatinine 0.94 (0.55-1.02) mg/dL Est GFR ( Amer) >60 (>=60 mL/min/1.73m^2) Est GFR (Non-Af Amer) 58 L (>=60 mL/min/1.73m^2) BUN/Creatinine Ratio 22.3 Glucose 116 H (74-106) mg/dL Calcium 9.1 (8.5-10.1) mg/dL Magnesium 2.0 (1.8-2.4) mg/dL Total Bilirubin 0.2 (0.2-1.0) mg/dL AST 19 (15-37) U/L ALT 24 (14-59) U/L Alkaline Phosphatase 52 (46-116) U/L Troponin I High Sens 6.7 7.2 (4.0-51.3) pg/mL Total Protein 6.8 (6.4-8.2) g/dL Albumin 3.3 L (3.4-5.0) g/dL Globulin 3.5 g/dL Albumin/Globulin Ratio 0.9 Lipase 11.0 L (16.0-77.0) U/L Urine Color Lt. yellow (YELLOW) Urine Clarity Clear (CLEAR) Urine pH 6.0 (5.0-9.0) Ur Specific [place] <=1.005 A (1.005-1.025) Urine Protein Negative (NEG/TRACE) mg/dL Urine Glucose (UA) Negative (NEGATIVE) mg/dL Urine Ketones Negative (NEGATIVE) mg/dL Urine Occult Blood Negative (NEGATIVE) Urine Nitrite Negative (NEGATIVE) Urine Bilirubin Negative (NEGATIVE) Urine Urobilinogen 0.2 (0.2-1.0) EU/dL Ur Leukocyte Esterase Negative (NEGATIVE) ECG Data Attestation: I personally reviewed and interpreted this ECG as follows: Interpretation: EKG sinus rhythm rate [address] segment elevation. NV interval 178 ms QRS seconds QTc 436 ms Discharge Plan Discharge Chief Complaint: Chest Pain Clinical Impression: Chest pain, non-cardiac, Hernia, hiatal Abdominal pain Qualifiers: Abdominal location: upper abdomen, unspecified Qualified Code(s): R10.10 - Upper abdominal pain, unspecified Back pain Qualifiers: Back pain location: thoracic back pain Chronicity: unspecified Back pain laterality: unspecified Qualified Code(s): M54.6 - Pain in thoracic spine Constipation Qualifiers: Constipation type: unspecified constipation type Qualified Code(s): K59.00 - Constipation, unspecified Patient Disposition: Home, Self-Care Time of Disposition Decision: 18:14 Mode of Transportation: Private Vehicle Prescriptions / Home Meds: New polyethylene glycol 3350 [Miralax] 17 gram/dose powder 17 g PO DAILY 4 Days Qty: 68 0RF No Action losartan 50 mg tablet 50 mg PO DAILY citalopram 20 mg tablet 20 mg PO DAILY pantoprazole 40 mg tablet,delayed release (DR/EC) 40 mg PO Q12H Rx Instructions: started extra dose today furosemide 20 mg tablet 20 mg PO DAILY rosuvastatin 20 mg tablet 20 mg PO DAILY Eliquis 5 mg tablet 5 mg PO BID insulin asp prt-insulin aspart [Novolog Mix 70-30FlexPen U-100] 100 unit/mL (70-30) insulin pen 18 unit SUBCUT BID Print Language: Estonian Instructions: Chest Pain (ED), Hiatal Hernia (DC), Constipation (ED), Abdominal Pain (ED) Additional Instructions: Clear liquid diet for 24 hours including water, Jell-O, popsicles, clear broth, Gatorade. Follow-up with primary care, cardiology and gastroenterology continue your medications may take Tylenol as directed on packaging for pain or discomfort as well as MiraLAX as directed on packaging return to ER if any symptoms worsen or new symptoms develop. Referrals: LY VARGAS [Physician, Gastroenterology] - 1 week Karlos Morgan MD [Primary Care Provider, Family Practice] - As soon as possible Kelli Salcido MD [Physician, Cardiology] - As soon as possible
[2025-03-31 16:18] LABS: Hematocrit 33.8 % (36.0-48.0); Hemoglobin 11.8 g/dL (12.0-16.0); Immature Granulocytes Abs Auto 0.01 10^3/uL (0.00-0.03); Immature Granulocytes Pct Auto 0.2 % (0.0-0.5); Lymphocytes Absolute Auto 2.0 10^3/uL (1.2-3.8); Mean Corpuscular HGB Conc 34.9 g/dL (29.9-35.2); Mean Corpuscular Hemoglobin 32.8 pg (26.7-34.0); Mean Corpuscular Volume 93.9 fL (81.0-99.0); Platelet Count 201 10^3/uL (150-450); Red Blood Count 3.60 10^6/uL (4.20-5.40); White Blood Count 4.8 10^3/uL (4.0-11.0)
[2025-03-31 16:43] LABS: Alanine Aminotransferase 24 U/L (14-59); Albumin Globulin Ratio 0.9; Albumin Level 3.3 g/dL (3.4-5.0); Alkaline Phosphatase 52 U/L (46-116); Anion Gap 13.1; Aspartate Amino Transferase 19 U/L (15-37); Blood Urea Nitrogen 21.0 mg/dL (7.0-18.0); Calcium 9.1 mg/dL (8.5-10.1); Carbon Dioxide 25.4 mmol/L (21.0-32.0); Chloride 106 mmol/L (98-107); Estimated GFR (African America >60 (>=60 mL/min/1.73m^2); Estimated GFR (Non-African Ame 58 (>=60 mL/min/1.73m^2); Globulin 3.5 g/dL; Glucose 116 mg/dL (74-106); Lipase 11.0 U/L (16.0-77.0); Magnesium 2.0 mg/dL (1.8-2.4); Potassium 3.5 mmol/L (3.5-5.1); Sodium 141 mmol/L (136-145); Total Protein 6.8 g/dL (6.4-8.2)
[2025-03-31 16:45] LABS: Glucose Urine UA NEGATIVE (NEGATIVE)
[2025-03-31] MEDS: MORPHINE SULFATE 2 MG/ML SYRINGE IV (17:46)
[2025-03-31] MEDS: NITROGLYCERIN 0.4 MG BOTTLE SL (17:46)
== END 2025-03-31 18:39 | disposition home or self-care (01) ==
PROVIDERS: Physician Assistant; Emergency Provider Emergency Medicine; Family Provider Family Medicine; PCP Family Medicine
DX: R07.89 Other chest pain (principal); K44.9 Diaphragmatic hernia without obstruction or gangrene; E11.8 Type 2 diabetes mellitus with unspecified complications; Z79.85 Long-term (current) use of injectable non-insulin antidiabetic drugs; R10.10 Upper abdominal pain, unspecified; M54.6 Pain in thoracic spine; K59.00 Constipation, unspecified
CPT/HCPCS: 36415; 71275; 74174; 80053; 81003; 83690; 83735; 84484; 85025; 93005; 96374; 99285; J2270; Q9967

== ENCOUNTER 2025-04-11 09:57 | Outpatient (OUT) | payer MEDICARE, SELFPAY ==
--- OUTSIDE RECORDS SUMMARY | 2025-04-05 09:30 | XMS_ITS | Encounter Summary ---
Author Organization [facility] Address [address] [place] [address] Care Team Providers Care Latex Foam Worker Name Role Phone Karlos Morgan MD Primary Care Provider [phone] Encounter Details Date Type Department Care Team (Late st Contact Info) Description 04/05/2025 9:30 AM EDT Office Visit [facility] [address] [facility] [address] [place] [phone] Kristine Branham DPM [address] [facility] [facility] [address] [place] [address] Surgery follow-up examination (Primary Dx); Hallux malleus, right; Ulcer of great toe, right, limited to breakdown of skin (HCC); Right foot pain Social History Tobacco Use Types Packs/Day Years Used Date Smoking Tobacco: Never Passive Smoke Exposure: Past Smokeless Tobacco: Never Alcohol Use Standard Drinks/Week Comments Never 0 (1 standard drink = 0.6 oz pur e alcohol) caffeine: none AUDIT-C Answer Date Recorded Q1: How often do you have a drink containing alcohol? Never 10/03/2024 Q2: How many drinks containi ng alcohol do you have on a typical day when you are drinking? Patient does not drink Q3: How often do you have si x or more drinks on one occasion? Never 10/03/2024 PHQ-2 Answer Date Recorded Patient Health Questionnaire-2 Score 0 01/09/2025 Comments Unknown Sex and Gender Information Value Date Recorded Sex Assigned at Not on file Legal Sex Female 6:59 PM EDT Gender Identity Not on file Sexual Orientation Not on file Occupation Industry Job Start Date Job End Date Retired Not on file Not on file Not on file documented as of this encounter Progress Notes * Kristine Branham DPM - 04/05/2025 9:30 AM EDT Images from the original note were not included. HPI: Nicol Frances presents today for post-op appointment of correction right hallux deformity. [facility] Patient complains of pain 0. Current symptoms are dull. Majority of her symptoms are along the surgical sites. Patient has not been icing andelevating as instructed. Patient states that she has taken one prescription pain pill, and has beentaking Tylenol ever since. No other concerns. Examination: General Examination: GENERAL EXAMINATION: alert, well hydrated, in no distress , awake, aware of surroundings. FOOT EXAM: Date of Last Foot Exam 04/03/25 Vascular: DORSALIS PEDIS PULSE:2/4, bilaterally. POSTERIOR TIBIAL [...] site to the medial right hallux is healed, but there is an opening to the central incisionmeasuring after removal of the eschar to the area measuring 1cm x 0.4cm x 0.2cm depth. No evidence of deep tissue or bone noted. Maceration to the distal incision site with slight serous drainage. Mild surrounding edema and erythema, no SOI noted. Good position noted to the hallux with no rubbing to the 2nd digit HYPERKERATOSIS: Location: distal aspect of the left 2nd, 3rd digit, distal medial right hallux, sub1st MPJ left NAIL PATHOLOGY: digits 1-5 bilateral are intact. SKIN PATHOLOGY: thin, shiny, atrophic, decreased hair growth, pigment discoloration changes, varicosities bilateral lower extremity left > right. Ankle / Foot: MUSCLE STRENGTH: 4/5 to all pedal groups tested. 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 Surgery follow-up examination Plan: 1. Ulceration to the right hallux was evaluated at today's visit. 2. Wound debridement was performed of the ulceration site. As patient has full neuropathy, there isno need for local anesthesia. I did excise nonviable tissue, callus, skin, and slough of ulcerationsite. This was performed with a tissue nipper and will be one of possibly staged series of ulceration and debridements on a weekly basis pending medical necessity. Pedal pain was none. Hemostasis was obtained with pressure. 3. Saline flush to the ulceration site, followed by amerigel and dry dressing. Patient was advised to perform daily dressing changes to the ulceration site until healed. 4. Patient advised not to submerge foot underwater until ulcer is completely healed. Patient shouldspongebathe the foot only in all unopen areas. 5. Patient was instructed on continued dressing changes to the ulceration site with amerigel. They should continue with use of the surgical shoe for offloading/pressure reduction. I did also fabricate a toe spacer from [employer] to help prevent rubbing and dislocation of the toe. 6. Patient was advised if they notice any worsening to the ulceration site including signs of infection, N/F/V/C to call the office for an urgent appointment or go to the nearest emergency room. 7. RTC: 1 week. documented in this encounter Plan of Treatment Upcoming Encounters Date Type Department Care Team (Late st Contact Info) Description 04/20/2025 8:15 AM EDT Office Visit [facility] [address] [place] [phone] Kristine Branham, DPM [address] [place] [address] 05/10/2025 10:15 AM EDT Procedure Visit [facility] [address] [place] [address] Kristine Branham, DPM [address] [place] [address] 06/07/2025 8:30 AM EDT Office Visit [facility] [address] [place] [address] Jr. Rhett Navarro C, DO [address] [facility] [address] [place] [address] 12/21/2025 9:00 AM EDT Office Visit [facility] [address] [facility] 150 [place] [address] H, DO [address] [facility] 150 [place] [address] documented as of this encounter Visit Diagnoses Diagnosis Surgery follow-up examination- Primary Follow-up examination, following unspecified surgery Hallux malleus, right Ulcer of great toe, right, limited to breakdown of skin (HCC) Right foot pain Pain in soft tissues of limb documented in this encounter Additional Health Concerns Assessment Noted Time PHQ-9 Depression Total Score: 0 01/10/20 25 8:00 AM EDT documented as of this encounter Care Teams Latex Foam Worker Relationship Specialty Start Date End Date Karlos Morgan MD [address] [facility] [place] [phone] PCP - General Family Medicine 03/17/25 documented as of this encounter
--- NOTE | 2025-04-11 09:40 | NM_ITS ---
Patient Name: ANDREA GLEZ MR#: [id number] : 1950 Exam Date: 04/11/2025 Ordering Doctor: DR ANA MERCER . RADIOLOGY REPORT PROCEDURE: NM RAY PERF SPECT REST STR COMPARISON: None. INDICATIONS: CHEST PAIN TECHNIQUE: Exam Description: Stress/Rest one day protocol gated SPECT Rest Imagin.3 mCi Tc-99m Cardiolite IV on 04/11/2025 Stress Imaging 30.3 mCi Tc-99m Cardiolite IV on 04/11/2025 Exercise Protocol: 0.4 mg Lexiscan given IV Heart Rate (bpm): Rest: 60 Max: 83 PMHR: 56 Blood Pressure: Rest: 148/54 Max: 148/54 Symptoms: Rest and peak stress ECG findings were pending, and the exercise portion of the study was pending per attending physician [facility]. For more details, please see separate cardiac stress test report. FINDINGS: QUALITY OF STUDY: Good PERFUSION DEFECT: LOCATION: Apical SIZE: Small SEVERITY: Mild TYPE: Fixed and likely representing physiological apical thinning WALL MOTION: Normal wall motion LV SIZE: 80 mL. TID / TCD: 0.9 LVEF: Calculated EF 72%. SUMMARY: Myocardial perfusion imaging study is normal CONCLUSION: 1. Myocardial perfusion is normal with soft tissue attenuation 2. Global left ventricular systolic function is hyperdynamic; EF 72% 3. No significant transient ischemic dilatation Dictated by: Mateo French M.D. on 04/11/2025 at 14:23 Approved by: Mateo French M.D. on 04/11/2025 at 14:25
--- OUTSIDE RECORDS SUMMARY | 2025-04-11 09:59 | XMS_ITS | Encounter Summary ---
Author Organization [facility] Address [address] [place] [address] Care Team Providers Care Paper Folder Name Role Phone Kristopher Vera DO Unavailable [phone] Kristopher Vera DO Primary Care Provider [phone] Maurice Melo MD Primary Care Provider [phone] Karlos Morgan MD Primary Care Provider [phone] Encounter Details Date Type Department Care Team (Late st Contact Info) Description 04/29/2024 Orders Only [facility] [address] [facility] 150 [place] [phone] Ahsan [address] DO [address] [facility] [address] [place] [address] Social History Tobacco Use Types Packs/Day Years Used Date Smoking Tobacco: Never Passive Smoke Exposure: Past Smokeless Tobacco: Never Alcohol Use Standard Drinks/Week Comments Never 0 (1 standard drink = 0.6 oz pur e alcohol) caffeine: none AUDIT-C Answer Date Recorded Q1: How often do you have a drink containing alcohol? Never 03/09/2024 Q2: How many drinks containi ng alcohol do you have on a typical day when you are drinking? Patient does not drink Q3: How often do you have si x or more drinks on one occasion? Never 03/09/2024 Comments Unknown Sex and Gender Information Value Date Recorded Sex Assigned at Not on file Legal Sex Female 6:59 PM EDT Gender Identity Not on file Sexual Orientation Not on file Occupation Industry Job Start Date Job End Date Retired Not on file Not on file Not on file documented as of this encounter Plan of Treatment Upcoming Encounters Date Type Department Care Team (Late st Contact Info) Description 04/20/2025 8:15 AM EDT Office Visit [facility] [address] [place] [phone] Kristine Branham, DPM [address] [place] [address] 05/10/2025 10:15 AM EDT Procedure Visit [facility] [address] [place] [address] Kristine Branham, DPM [address] [place] [address] 06/07/2025 8:30 AM EDT Office Visit [facility] [address] [place] [address] Jr. Rhett Navarro, DO [address] [facility] [address] [place] [address] 12/21/2025 9:00 AM EDT Office Visit [facility] [address] [place] [address], DO [address] [place] [address] documented as of this encounter Procedures Procedure Name Priority Date/Time Associated Diagnosis Comments *MAMMOGRAM (BILATERAL), DIAGNOSTIC COMPUTER AIDED Routine 04/29/2024 9:08 AM EDT documented in this encounter Results * *MAMMOGRAM (BILATERAL), DIAGNOSTIC COMPUTER AIDED (04/29/2024 9:08 AM EDT) Anatomical Region Laterality Modality Radiographic Henna ging Ahsan Way DO IMG XR PROCEDURES Final R esult documented in this encounter Visit Diagnoses Not on filedocumented in this encounter Care Teams Paper Folder Relationship Specialty Start Date End Date Kristopher Vera DO [address] [facility] [address] [place] [address] PCP - [employer] 12/22/21 08/23/24 Kristopher Vera DO [address] [facility] [address] [place] [address] PCP - General Internal Medicine 12/30/22 03/13/25 Maurice Melo MD [address] [facility] [address] [place] [address] PCP - General Internal Medicine 03/14/25 03/16/25 Karlos Morgan MD [address] [place] [address] PCP - General Family Medicine 03/17/25 documented as of this encounter
--- OUTSIDE RECORDS SUMMARY | 2025-04-11 09:59 | XMS_ITS | Encounter Summary ---
Author Organization [facility] Address [address] [place] [address] Care Team Providers Care Striker Off Name Role Phone Kristopher Vera DO Primary Care Provider [phone] Maurice Melo MD Primary Care Provider [phone] Karlos Morgan MD Primary Care Provider [phone] Reason for Referral * Home Health (Routine) - Closed Specialty Diagnoses / Procedures Referred By Tylor munoz Referred To Contact Home Health Services Diagnoses Facet arthritis of lumbosacral region Arthritis of neck Paresthesia of left arm At moderate risk for fall Venita Marques NP [address] [facility] [address] [place] [address] Phone: tel: fax: [facility] Referral ID Status Reason Start Date Expiration Date V isits Requested Visits Authorized [id number] Closed Specialty Services Required 11/04/2024 01/03/[phone] Encounter Details Date Type Department Care Team (Late st Contact Info) Description 11/04/2024 Orders Only [facility] [address] [place] [phone] Lynda Gee LSW [address] [facility] [address] [place] [address] Facet arthritis of lumbosacral region (Primary Dx); Arthritis of neck; Paresthesia of left arm; At moderate risk for fall Social History Tobacco Use Types Packs/Day Years [...] more drinks on one occasion? Never 10/03/2024 Comments Unknown Sex and Gender Information Value [...] Description 04/20/2025 8:15 AM EDT Office Visit [facility] [address] [place] [address] Kristine Branham DPM [address] [place] [address] 05/10/2025 10:15 AM EDT Procedure Visit [facility] [address] [place] [address] Kristine Branham DPM [address] [place] [address] 06/07/2025 8:30 AM EDT Office Visit [facility] [address] [place] [phone] Jr. Rhett Navarro, DO [address] [facility] [address] [place] [address] 12/21/2025 9:00 AM EDT Office Visit [facility] [address] [place] [address], DO 7[address] [facility] 150 [place] [address] Scheduled Referrals Name Type Priority Associated Diagnoses Orde r Schedule Ambulatory referral to Home Health Outpatient Referral Routine Facet arthritis of lumbosacral region Arthritis of neck Paresthesia of left arm At moderate risk for fall Expected: 11/04/2024 (Approximate), Expires: 05/07/2025 documented as of this encounter Visit Diagnoses Diagnosis Facet arthritis of lumbosacral region- Primary Arthritis of neck Paresthesia of left arm Disturbance of skin sensation At moderate risk for fall documented in this encounter Care Teams Striker Off Relationship Specialty Start Date End Date Kristopher Vera DO [address] [facility] [address] [place] [address] PCP - General Internal Medicine 12/30/22 03/13/25 Maurice Melo MD [address] [facility] [address] [place] [address] PCP - General Internal Medicine 03/14/25 03/16/25 Karlos Morgan MD [address] [facility] [place] [place] [address] PCP - General Family Medicine 03/17/25 documented as of this encounter
--- OUTSIDE RECORDS SUMMARY | 2025-04-11 09:59 | XMS_ITS | Encounter Summary ---
Author Organization [facility] Address [address] [place] [address] Care Team Providers Care Architectural Representative Name Role Phone Kristopher Vera DO Unavailable [phone] Kristopher Vera DO Primary Care Provider [phone] Kristopher Vera DO Unavailable [phone] Maurice Melo MD Primary Care Provider [phone] Karlos Morgan MD Primary Care Provider [phone] Encounter Details Date Type Department Care Team (Late st Contact Info) Description 06/03/2023 External Result Encounter [facility] External Department Unsolicited Ahsan Way, DO [address] [facility] [address] [place] [address] Social History Tobacco Use Types Packs/Day Years Used Date Smoking Tobacco: Never Smokeless Tobacco: Never Alcohol Use Standard Drinks/Week Comments Never 0 (1 standard drink = 0.6 oz pur e alcohol) caffeine: none Comments Unknown Sex and Gender Information Value [...] Visit [facility] [address] [place] [address] Kristine Branham, DPM [address] [place] [address] 05/10/2025 10:15 AM EDT Procedure Visit [facility] [address] [place] [address] Kristine Branham, DPM [address] [place] [address] 06/07/2025 8:30 AM EDT Office Visit [facility] [address] [place] [address] Jr. Rhett Navarro, DO [address] [place] [address] 12/21/2025 9:00 AM EDT Office Visit [facility] [address] [place] [phone] Ahsan Way, DO [address] [place] [address] documented as of this encounter Procedures Procedure Name Priority Date/Time Associated Diagnosis Comments US LOWER EXTREMITY NON-VASC RIGHT 06/03/2023 9:57 AM EDT documented in this encounter Results * US LOWER EXTREMITY NON-VASC RIGHT (06/03/2023 9:57 AM EDT) Anatomical Region Laterality Modality Right Ultrasound 06/03/2023 9:57 AM EDT Impressions 07/14/2023 11:18 AM EST Unchanged benign-appearing lymph nodes are noted in the left axilla. These are presumably benign in nature. ASSESSMENT: BIRADS-2 Benign RECOMMENDATION: If the patient's physical exam remains unchanged, annual routine screening mammography is recommended. Impression dictated by: Marcus Galvan M.D.06/03/2023 10:03 AM Dictation Location: [facility] Tech: Venita Tirado Transcribed By: PWS 06/03/23 100 Dictated By: Marcus Galvan II, MD 06/03/23 0957 Signed By: <Electronically signed by Marcus Galvan II, MD in OV> 06/03/23 1003 Narrative 07/14/2023 11:18 AM EST [facility] Main [place] [id number] Ultrasound Report Signed Patient: Nicol Frances MR#: [id number] : 1950 Acct:[id number] Age/Sex: 73 / F ADM Date: 06/03/23 Loc: [facility] Room: Type: REG CLI Attending Dr: Ahsan Way DO Ordering Provider: Ahsan Way DO Date of Service: 06/03/23 US/US extremity nonvascular: 6mos. f/u Lt. axillary US;Axillary lymphadenopathy Copies to: Ahsan Way DO US extremity nonvascular 06/03/2023 9:13 AM SIGNS AND SYMPTOMS: 6mos. f/u Lt. axillary US;Axillary lymphadenopathy COMPARISON: 4 1020.3 and 06/09/2022 FINDINGS: Within the left axilla there is a benign-appearing 4.4 x 0.8 x 2.0 cm reniform benign-appearing lymph node with echogenic fat in the hilum. This is similar to the prior exam. A second benign-appearing lymph node is noted measuring 1.1 x 0.6 x 1.5 cm in greatest dimension showing no significant interval change. US/US extremity nonvascular Procedure Note Radiology, Radiologist, MD - 07/14/2023 [facility] Main [address] [address] Ultrasound Report Signed Patient: Nicol Frances JMR#: [id number] : 1950cct:[id number] Age/Sex: 73 / FADM Date: 06/03/23 Loc: [facility] Room:Type: REG CLI Attending Dr: Ahsan Way DO Ordering Provider: Ahsan Way DO Date of Service: 06/03/23 US/US extremity nonvascular: 6mos. f/u Lt.axillary US;Axillary lymphadenopathy Copies to: Ahsan Way DO US extremity nonvascular 06/03/2023 9:13 AM SIGNS AND SYMPTOMS: 6mos. f/u Lt. axillary US;Axillary lymphadenopathy COMPARISON: 4 1020.3 and 06/09/2022 FINDINGS: Within the left axilla there is a benign-appearing 4.4 x 0.8 x 2.0 cmreniform benign-appearing lymph node with echogenic fat in the hilum. This is similar to the priorexam. A second benign-appearing lymph node is noted measuring 1.1 x 0.6 x 1.5 cmin greatest dimension showing no significant interval change. US/US extremity nonvascular IMPRESSION: Unchanged benign-appearing lymph nodes are noted in the left axilla. Theseare presumably benign in nature. ASSESSMENT: BIRADS-2 Benign RECOMMENDATION: If the patient's physical exam remains unchanged, annualroutine screening mammography is recommended. Impression dictated by: Marcus Galvan M.D.06/03/2023 10:03 AM Dictation Location: [facility] Tech: Venita Tirado Transcribed By: [facility] 06/03/23 1003 Dictated By: Marcus Galvan II, MD 06/03/23 0957 Signed By: <Electronically signed by Marcus Galvan II, MD inOV> 06/03/[address] DO IMG US PROCEDURES Final R esult documented in this encounter Visit Diagnoses Not on filedocumented in this encounter Care Teams Architectural Representative Relationship Specialty Start Date End Date Kristopher Vera DO [address] [place] [address] PCP - [employer] 12/22/21 08/23/24 Kristopher Vera DO [address] [place] [address] PCP - General Internal Medicine 12/30/22 03/13/25 Kristopher Vera DO [address] [facility] [address] [place] [address] PCP - [employer] 11/22/21 02/22/24 Maurice Melo MD [address] [facility] [address] [place] [address] PCP - General Internal Medicine 03/14/25 03/16/25 Karlos Morgan MD [address] [place] [address] PCP - General Family Medicine 03/17/25 documented as of this encounter
--- OUTSIDE RECORDS SUMMARY | 2025-04-11 09:59 | XMS_ITS | Encounter Summary ---
Author Organization [facility] Address [address] [place] [address] Care Team Providers Care Cell Liner Name Role Phone Kristopher Vera DO Unavailable [phone] Kristopher Vera DO Primary Care Provider [phone] Kristopher Vera DO Unavailable [phone] Maurice Melo MD Primary Care Provider [phone] Karlos Morgan MD Primary Care Provider [phone] Encounter Details Date Type Department Care Team (Latest Contact Info) Description 07/28/2023 Orders Only [facility] Katherine Pantoja, [place] [address] [facility] [address] [place] [address] Social History Tobacco Use Types Packs/Day Years [...] Podiatry [address] [place] [phone] Kristine Branham DPM [address] [place] [address] 05/10/2025 10:15 AM EDT Procedure Visit [facility] [place] [facility] [address] [place] [address] Kristine Branham, DPM [address] [place] [address] 06/07/2025 8:30 AM EDT Office Visit [facility] [place] [facility] [address] [place] [address] Jr. Rhett Navarro, DO [address] [facility] [address] [place] [address] 12/21/2025 9:00 AM EDT Office Visit [facility] [address] [place] [phone] Ahsan [address] DO [address] [place] [address] documented as of this encounter Visit Diagnoses Not on filedocumented in this encounter Care Teams Cell Liner Relationship Specialty Start Date End Date Kristopher Vera DO [address] [place] [address] PCP - [employer] 12/22/21 08/23/24 Kristopher Vera DO [address] [place] [address] PCP - General Internal Medicine 12/30/22 03/13/25 Kristopher Vera DO [address] [place] [address] PCP - [employer] 11/22/21 02/22/24 Maurice Melo MD [address] [facility] [address] [place] [address] PCP - General Internal Medicine 03/14/25 03/16/25 Karlos Morgan MD [address] [place] [address] PCP - General Family Medicine 03/17/25 documented as of this encounter
--- OUTSIDE RECORDS SUMMARY | 2025-04-11 09:59 | XMS_ITS | Encounter Summary ---
Author Organization [facility] Address [address] [place] [address] Care Team Providers Care Operations Mgr Name Role Phone Kristopher Vera DO Unavailable [phone] Kristopher Vera DO Primary Care Provider [phone] Kristopher Vera DO Unavailable [phone] Maurice Melo MD Primary Care Provider [phone] Karlos Morgan MD Primary Care Provider [phone] Encounter Details Date Type Department Care Team (Late st Contact Info) Description 06/02/2023 Orders Only [facility] [address] [place] [address] A, Unknown Practice [address] [place], [place] [phone] Social History Tobacco Use Types Packs/Day Years [...] Office Visit [facility] [address] [place] [address] Kristine Branham, DPM [address] [place] [address] 05/10/2025 10:15 AM EDT Procedure Visit [facility] [address] [place] [address] Kristine Branham, DPM [address] [place] [address] 06/07/2025 8:30 AM EDT Office Visit [facility] [address] [place] [address] Jr. Rhett Navarro, DO [address] [facility] [address] [place] [address] 12/21/2025 9:00 AM EDT Office Visit [facility] [address] [place] [address], DO [address] [place] [address] documented as of this encounter Procedures Procedure Name Priority Date/Time Associated Diagnosis Comments DIABETES EYE EXAM Routine 06/02/2023 3:54 PM EDT documented in this encounter Results * Diabetes Eye Exam (06/02/2023 3:54 PM EDT) us Unknown Practice [facility] MAINTENANCE Final Resu lt documented in this encounter Visit Diagnoses Not on filedocumented in this encounter Care Teams Operations Mgr Relationship Specialty Start Date End Date Kristopher Vera DO [address] [place] [address] PCP - [employer] 12/22/21 08/23/24 Kristopher Vera DO [address] [place] [address] PCP - General Internal Medicine 12/30/22 03/13/25 Kristopher Vera DO [address] [facility] [address] [place] [address] PCP - [employer] 11/22/21 02/22/24 Maurice Melo MD [address] [facility] [address] [place] [address] PCP - General Internal Medicine 03/14/25 03/16/25 Karlos Morgan MD [address] [place] [address] PCP - General Family Medicine 03/17/25 documented as of this encounter
--- OUTSIDE RECORDS SUMMARY | 2025-04-11 09:59 | XMS_ITS | Encounter Summary ---
Author Organization [facility] Address [address] [place] [address] Care Team Providers Care Custom Ski Maker Name Role Phone Kristopher Vera DO Primary Care Provider [phone] Maurice Melo MD Primary Care Provider [phone] Karlos Morgan MD Primary Care Provider [phone] Encounter Details Date Type Department Care Team (Late st Contact Info) Description 12/16/2024 Orders Only [facility] [address] [facility] 150 [place] [address] DO 703 [facility] 150 [place] [address] Social History Tobacco Use Types [...] Description 04/20/2025 8:15 AM EDT Office Visit [facility] [place] [facility] [address] [place] [address] Kristine Branham, DPM [address] [place] [address] 05/10/2025 10:15 AM EDT Procedure Visit [facility] [place] [facility] [address] [place] [address] Kristine Branham, DPM [address] [place] [address] 06/07/2025 8:30 AM EDT Office Visit [facility] [place] [facility] [address] [place] [address] Jr. Rhett Navarro, DO 112 [facility] [address] [place] [address] 12/21/2025 9:00 AM EDT Office Visit [facility] [address] [facility] [address] [place] [address], DO 703 [facility] [address] [place] [address] documented as of this encounter Procedures Procedure Name Priority Date/Time Associated Diagnosis Comments MAMM BILATERAL DIAG W/CAD (D) Routine 12/07/2024 9:15 AM EDT documented in this encounter Results * MAMM BILATERAL DIAG W/CAD (D) (12/07/2024 9:15 AM EDT) Anatomical Region Laterality Modality Radiographic Henna ging Ahsan Way DO IMG XR PROCEDURES Final R esult documented in this encounter Visit Diagnoses Not on filedocumented in this encounter Care Teams Custom Ski Maker Relationship Specialty Start Date End Date Kristopher Vera DO [address] [facility] [address] [place] [address] PCP - General Internal Medicine 12/30/22 03/13/25 Maurice Melo MD [address] [facility] [address] [place] [address] PCP - General Internal Medicine 03/14/25 03/16/25 Karlos Morgan MD [address] [place] [address] PCP - General Family Medicine 03/17/25 documented as of this encounter
--- OUTSIDE RECORDS SUMMARY | 2025-04-11 09:59 | XMS_ITS | Encounter Summary ---
Author Organization [facility] Address [address] [facility] [place] [address] Care Team Providers Care Urban Forester Name Role Phone Karlos Morgan MD Primary Care Provider [phone] Encounter Details Date Type Department Care Team (Late Contact Info) Description 04/05/2025 Bamboo flowsheet [facility] [place] [facility] [address] [place] [phone] Kristine Branham DPM [address] [place] [address] Social History Tobacco Use Types Packs/Day Years [...] [address] [place] [address] Kristine Branham, DPM [address] [place] [address] 05/10/2025 10:15 AM EDT Procedure Visit [facility] [place] [facility] [address] [place] [address] Kristine Branham, DPM [address] [place] [address] 06/07/2025 8:30 AM EDT Office Visit [facility] [place] [facility] [address] [place] [phone] Jr. Rhett Navarro, DO 112 [facility] [address] [place] [address] 12/21/2025 9:00 AM EDT Office Visit [facility] [address] [place] [address], DO [address] [place] [address] documented as of this encounter Visit Diagnoses Not on filedocumented in this encounter Additional Health Concerns Assessment Noted Time PHQ-9 Depression Total Score: 0 01/10/20 8:00 AM EDT documented as of this encounter Care Teams Urban Forester Relationship Specialty Start Date End Date Karlos Morgan MD [address] [facility] [place] [place] [address] PCP - General Family Medicine 03/17/25 documented as of this encounter
--- OUTSIDE RECORDS SUMMARY | 2025-04-11 09:59 | XMS_ITS | Encounter Summary ---
Author Organization [facility] Address [address] [place] [address] Care Team Providers Care Quality Assurance Manager Name Role Phone Karlos Morgan MD Primary Care Provider [phone] Encounter Details Date Type Department Care Team (Latest Contact Info) Description 04/05/2025 Travel Social History Tobacco Use Types Packs/Day Years [...] Podiatry [address] [place] [phone] Kristine Branham DPM [address] [place] [address] 05/10/2025 10:15 AM EDT Procedure Visit [facility] [address] [place] [address] Kristine Branham DPM [address] [place] [address] 06/07/2025 8:30 AM EDT Office Visit [facility] [place] [facility] [address] [place] [address] Jr. Rhett Navarro C, DO 112 [facility] [address] [place] [address] 12/21/2025 9:00 AM EDT Office Visit [facility] [address] [facility] 150 [place] [address], DO 703 [facility] 150 [place] [address] documented as of this encounter Visit Diagnoses Not on filedocumented in this encounter Additional Health Concerns Assessment Noted Time PHQ-9 Depression Total Score: 0 01/10/20 8:00 AM EDT documented as of this encounter Care Teams Quality Assurance Manager Relationship Specialty Start Date End Date Karlos Morgan MD [address] [facility] [place] [address] PCP - General Family Medicine 03/17/25 documented as of this encounter
--- OUTSIDE RECORDS SUMMARY | 2025-04-11 10:00 | XMS_ITS | Encounter Summary ---
Author Organization [facility] Address [address] [facility] [place] [address] Care Team Providers Care Instructional Coach Name Role Phone Kristopher Vera DO Unavailable [phone] Kristopher Vera DO Primary Care Provider [phone] Kristopher Vera DO Unavailable [phone] Maurice Melo MD Primary Care Provider [phone] Karlos Morgan MD Primary Care Provider [phone] Encounter Details Date Type Department Care Team (Late st Contact Info) Description 02/17/2024 Orders Only [facility] [address] [facility] [address] [place] [address] A, Unknown Practice [address] [place], [place] [phone] Social History Tobacco Use Types Packs/Day Years Used Date Smoking Tobacco: Never Passive Smoke Exposure: Past Smokeless Tobacco: Never Alcohol Use Standard Drinks/Week Comments Never 0 (1 standard drink = 0.6 oz pur e alcohol) caffeine: none AUDIT-C Answer Date Recorded Q1: How often do you have a drink containing alcohol? Never 02/16/2024 Q2: How many drinks containi ng alcohol do you have on a typical day when you are drinking? Patient does not drink Q3: How often do you have si x or more drinks on one occasion? Never 02/16/2024 Comments Unknown Sex and Gender Information Value [...] [address] [place] [address] Kristine Branham, DPM [address] [place] [address] 05/10/2025 10:15 AM EDT Procedure Visit [facility] [address] [place] [address] Kristine Branham, DPM [address] [place] [address] 06/07/2025 8:30 AM EDT Office Visit [facility] [address] [place] [address] Jr. Rhett Navarro C, DO 112 [facility] 150 [place] [address] 12/21/2025 9:00 AM EDT Office Visit [facility] [address] [place] [phone] Ahsan Way, DO [address] [place] [address] documented as of this encounter Procedures Procedure Name Priority Date/Time Associated Diagnosis Comments CT LUMBAR SPINE W AND WO IV CONTRAST Routine 02/09/2024 2:[address] HEAD FOR BRAINLAB W/O CONTRAST Routine 02/09/2024 2:21 PM EDT documented in this encounter Results * CT lumbar spine w and wo IV contrast (02/09/2024 2:23 PM EDT) Anatomical Region Laterality Modality Spine, L-spine Computed Tomogra phy us Unknown Practice A IMG CT PROCEDURES Final Resul t * CT HEAD FOR BRAINLAB W/O CONTRAST (02/09/2024 2:21 PM EDT) Anatomical Region Laterality Modality Radiographic Henna ging us Unknown Practice A IMG XR PROCEDURES Final Resul t documented in this encounter Visit Diagnoses Not on filedocumented in this encounter Care Teams Instructional Coach Relationship Specialty Start Date End Date Kristopher Vera DO [address] [place] [address] PCP - [employer] 12/22/21 08/23/24 Kristopher Vera DO [address] [facility] [address] [place] [address] PCP - General Internal Medicine 12/30/22 03/13/25 Kristopher Vera DO [address] [facility] [address] [place] [address] PCP - [employer] 11/22/21 02/22/24 Maurice Melo MD [address] [place] [address] PCP - General Internal Medicine 03/14/25 03/16/25 Karlos Morgan MD [address] [place] [address] PCP - General Family Medicine 03/17/25 documented as of this encounter
--- OUTSIDE RECORDS SUMMARY | 2025-04-11 10:00 | XMS_ITS | Encounter Summary ---
Author Organization [facility] Address [address] [place] [address] Care Team Providers Care Banquet Director Name Role Phone Kristopher Vera DO Unavailable [phone] Kristopher Vera DO Primary Care Provider [phone] Kristopher Vera DO Unavailable [phone] Maurice Melo MD Primary Care Provider [phone] Karlos Morgan MD Primary Care Provider [phone] Encounter Details Date Type Department Care Team (Late st Contact Info) Description 12/07/2023 External Result Encounter [facility] External Department Unsolicited Ahsan Way, DO [address] [place] [address] Social History Tobacco Use Types Packs/Day Years Used Date Smoking Tobacco: Never Passive Smoke Exposure: Past Smokeless Tobacco: Never Alcohol Use Standard Drinks/Week Comments Never 0 (1 standard drink = 0.6 oz pur e alcohol) caffeine: none AUDIT-C Answer Date Recorded Frequency of Alcohol Consumption Not on file 09/08/2023 Q2: How many drinks containi ng alcohol do you have on a typical day when you are drinking? Patient does not drink Q3: How often do you have si x or more drinks on one occasion? Never 09/08/2023 Comments Unknown Sex and Gender Information Value [...] [address] [place] [address] Kristine Branham, DPM [address] [place] [address] 05/10/2025 10:15 AM EDT Procedure Visit [facility] [address] [place] [address] Kristine Branham, DPM [address] [place] [address] 06/07/2025 8:30 AM EDT Office Visit [facility] [address] [place] [address] Jr. Rhett Navarro, DO 112 [facility] [address] [place] [address] 12/21/2025 9:00 AM EDT Office Visit [facility] [address] [place] [address] Ahsan [address], DO [address] [place] [address] documented as of this encounter Procedures Procedure Name Priority Date/Time Associated Diagnosis Comments US LOWER EXTREMITY NON-VASC RIGHT 12/07/2023 2:22 PM EDT documented in this encounter Results * US LOWER EXTREMITY NON-VASC RIGHT (12/07/2023 2:22 PM EDT) Anatomical Region Laterality Modality Right Ultrasound 12/07/2023 2:22 PM EDT Impressions 12/07/2023 2:58 PM EDT NO MAMMOGRAPHIC OR MAMMOGRAPHIC EVIDENCE OF MALIGNANCY. [...] Marcus Galvan M.D.12/07/2023 2:49 PM Dictation Location: [facility] Transcribed By: [facility] 12/07/23 1449 Dictated By: Marcus Galvan II, MD 12/07/23 142 Signed By: <Electronically signed by Marcus Galvan II, MD in [place]> 12/07/23 1449 Narrative 12/07/2023 2:58 PM EDT [facility] [place] [address] Mammography Report Signed Patient: Nicol Frances MR#: [id number] 94 : 1950 Acct:[id number] Age/Sex: 73 / F ADM Date: 12/07/23 Loc: [place] Room: Type: [facility] Attending Dr: Ahsan Way DO Copies to: DO Kristopher Carvalho DO Ordering Provider: Ahsan Way DO Date of Service: 12/07/23 MM/MM diagnostic mammo BI w/CAD: Yrly mamms ([id number]) US/US extremity nonvascular: R59.0 CLINICAL DATA: Palpable [...] are unchanged. MM/MM diagnostic mammo BI w/CAD Procedure Note Radiology, Radiologist, MD - 12/07/2023 [facility] Main [place] [address] [place] [address] Mammography Report Signed Patient: Nicol Frances JMR#: [id number] [birth year] : 1950cct:[id number] Age/Sex: 73 / FADM Date: 12/07/23 Loc: [place] Room:Type: [facility] Attending Dr: Ahsan Way DO Copies to: DO Kristopher Carvalho DO Ordering Provider: Ahsan Way DO Date of Service: 12/07/23 MM/MM diagnostic mammo BI w/CAD: Yrly mamms ([id number]) US/US extremity nonvascular: R59.0 CLINICAL DATA: Palpable lymph nodes in left axilla BILATERAL DIAGNOSTIC MAMMOGRAMS - FULL FIELD DIGITAL WITH TOMOSYNTHESISAND CAD Tomosynthesis craniocaudal and mediolateral oblique views of both breastswere obtained using low- dose digital technique. Comparison is made to prior studies from12/01/2022, 11/27/2021, 06/04/2021, and 09/10/2018. This examination was reviewed with the aid of CAD. There are scattered fibroglandular densities. Benign-appearingcalcifications are present bilaterally. There are prominent but unchanged lymph nodes in the axillabilaterally. There are no dominant masses, typically malignant calcifications or architecturaldistortion. There has been no significant interval change. Limited left breast ultrasound: Grayscale and color Doppler sonographic images of the left axillary regionwere obtained. There are similar benign-appearing lymph nodes measuring up to 4.4 x 2.0 x 0.8 cm ingreatest dimension without cortical thickening. A second benign appearing lymph node is notedmeasuring 1.1 x 0.6 x 1.8 cm in greatest dimension. These are unchanged. MM/MM diagnostic mammo BI w/CAD IMPRESSION: NO MAMMOGRAPHIC OR MAMMOGRAPHIC EVIDENCE OF MALIGNANCY. BENIGN-APPEARING LYMPH NODES ARE NOTED IN THE REGION OF PALPABLEABNORMALITY IN THE LEFT ADNEXA SHOWING NO SIGNIFICANT INTERVAL CHANGE. ROUTINE FOLLOW-UP IS RECOMMENDED IN ONE YEAR. RESULT CODE: 2 Benign Findings(s) DENSITY CODE: 2 (approximately 25-50% glandular) FOLLOW UP: 1YR The false-negative rate of mammography is approximately 10-percent. Management of a palpable abnormality must be based on clinical grounds. Patient was entered into a reminder system with a target due date for thenext mammogram. Impression dictated by: Marcus Galvan M.D.12/07/2023 2:49 PM Dictation Location: [facility] Transcribed By: [facility] 12/07/23 1449 Dictated By: Marcus Galvan II, MD 12/07/23 1422 Signed By: <Electronically signed by Marcus Galvan II, MD inOV> 12/07/[address] DO IMG US PROCEDURES Final R esult documented in this encounter Visit Diagnoses Not on filedocumented in this encounter Care Teams Banquet Director Relationship Specialty Start Date End Date Kristopher Vera DO [address] [place] [address] PCP - [employer] 12/22/21 08/23/24 Kristopher Vera DO [address] [place] [address] PCP - General Internal Medicine 12/30/22 03/13/25 Kristopher Vera DO [address] [place] [address] PCP - [employer] 11/22/21 02/22/24 Maurice Melo MD [address] [facility] [address] [place] [address] PCP - General Internal Medicine 03/14/25 03/16/25 Karlos Morgan MD [address] [place] [address] PCP - General Family Medicine 03/17/25 documented as of this encounter
--- OUTSIDE RECORDS SUMMARY | 2025-04-11 10:00 | XMS_ITS | Clinical Summary ---
Author Organization [facility] Address [address] [place] [address] Care Team Providers Care [employer] Boat [employer] Supervisor Name Role Phone Karlos Morgan MD Primary Care Provider [phone] Allergies No known active allergies Medications Lancet Devices (Autolet) lancing device 1 each by Other route in the morning and 1 each at noon and 1 each in the evening and 1 each before bedtime. Active acetaminophen (Tylenol Extra Strength) 500 MG tablet Take 1,000 mg by mouth 2 (two) times a day as needed for mild pain. Active Multiple Vitamins-Minerals (Ocuvite Adult Formula) capsule as directed Orally Active Multiple Vitamins-Minerals (PreserVision AREDS) tablet as directed Orally Active sulfaSALAzine (Azulfidine) 500 MG tablet TAKE TWO (2) TABLETS BY MOUTH THREE TIMES PER DAY 023 Active cholecalciferol (Vitamin D-3) 25 MCG (1000 UT) tablet Take 1,000 Units by mouth in the morning. Active BD Insulin Syringe U/F 30G X 1/2 0.5 ML misc 022 Active Lancets (OneTouch Delica Plus [id number]) miscIndications:T ype 2 diabetes mellitus with diabetic polyneuropathy, with long-term current use of insulin (HCC) USE TO TEST BLOOD SUGAR 3 TIMES DAILY DIRECTED 100 each 10 024 Active pantoprazole (ProtoNix) 40 MG EC tabletIndications :Gastroesophageal reflux disease without esophagitis Take 1 tablet (40 mg) by mouth in the morning. Take before meals. 90 tablet 3 024 Active losartan (Cozaar) 50 MG tabletIndications :Primary hypertension TAKE 1 TABLET EVERY MORNING 90 tablet 3 024 Active Continuous Glucose Sensor (FreeStyle Carline 3 Sensor) miscIndications:D iabetic peripheral neuropathy associated with type 2 diabetes mellitus (HCC),group home current use of insulin ([facility]) 1 Device every 14 (fourteen) days 7 each 3 025 2025 Active Continuous Glucose Final Inspector Shuttle (FreeStyle Carline 3 [place]) deviceIndications :Diabetic peripheral neuropathy associated with type 2 diabetes mellitus ([facility]),group home current use of insulin ([facility]) USE I DEVICE CONTINUOUSLY 1 each 3 025 Active furosemide (Lasix) 20 MG tabletIndications :Left leg swelling TAKE 1 TABLET BY MOUTH EVERY DAY 90 tablet 1 025 Active rosuvastatin (Crestor) 20 MG tabletIndications :Mixed hyperlipidemia TAKE 1 TABLET BY MOUTH AT BEDTIME 90 tablet 3 025 Active glucose blood (OneTouch Verio) test stripIndications: Type 2 diabetes mellitus with diabetic polyneuropathy, with long-term current use of insulin ([facility]) USE TO TEST BLOOD SUGAR 3 TIMES A DAY DIRECTED 300 strip 3 Active clobetasol (Temovate) 0.05 % ointmentIndicatio ns:Atrophic vaginitis APPLY TO AFFECTED AREA TWICE A DAY 30 g 3 025 Active insulin aspart protamine-insulin aspart (NovoLOG MIX 70/30) (70-30) 100 UNIT/ML injectionIndicati ons:Type 2 diabetes mellitus with diabetic polyneuropathy, with long-term current use of insulin ([facility]) Inject 14 Units under the skin in the morning and 14 Units in the evening. Inject with meals. 26 mL 3 025 Active insulin pen needle 31G x 4 mm miscIndications:T ype 2 diabetes mellitus with diabetic polyneuropathy, with long-term current use of insulin ([facility]) Inject 1 each under the skin in the morning and 1 each before bedtime. Use as instructed. 180 each 3 025 Active citalopram (CeleXA) 20 MG tabletIndications :Depression, unspecified depression type TAKE 1 TABLET EVERY MORNING 90 tablet 2 025 Active Eliquis 5 MG tablet Take 5 mg by mouth in the morning and 5 mg before bedtime. 025 Active warfarin (Coumadin) 3 MG tabletIndications :Chronic deep vein thrombosis (DVT) of femoral vein of left lower extremity (HCC) TAKE 1/2 TAB ORALLY ON THURSDAY AND THURSDAY, 1 TABLET DAILY ALL OTHER DAYS OR PER COUMADIN CLINIC 78 tablet 1 024 2024 Discontinued warfarin (Coumadin) 3 MG tabletIndications :Chronic deep vein thrombosis (DVT) of femoral vein of left lower extremity (HCC) TAKE 1/2 TAB ORALLY ON THURSDAY AND THURSDAY, 1 TABLET DAILY ALL OTHER DAYS OR PER COUMADIN CLINIC 90 tablet 3 025 2024 Discontinued(T herapy completed) Active Problems Problem Noted Date Diagnosed Date Type 2 diabetes mellitus wit h chronic kidney disease, with long-term current use of insulin 01/09/2025 Axillary lymphadenopathy 12/16/2024 Primary osteoarthritis of right knee 10/03/2024 Therapeutic drug monitoring 09/08/2023 Diabetic peripheral neuropat hy associated with type 2 diabetes mellitus 06/08/2023 Hypercoagulable state ([facility]) 06/08/2023 Osteoarthritis of spine with radiculopathy, cerv ical region 06/08/2023 Spondylosis of lumbar region without myelopathy or radiculopathy 06/08/2023 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 machines and device s 04/23/2021 Primary osteoarthritis of left knee 07/26/2020 Class 1 obesity 07/26/2020 Steatosis of liver 04/24/2020 Gastroesophageal reflux disease 09/05/2019 Anxiety disorder 07/07/2019 Ulcerative colitis 05/17/2019 Facet arthritis of lumbosacral region 03/24/2019 OAB (overactive bladder) 07/12/2018 Venous insufficiency 04/19/2018 Chronic deep vein thrombosis (DVT) of femoral vein of left lower extremity 04/19/2018 group home current use of 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 0 04/13/2018 group home current use of insulin 10/24/2016 Mixed hyperlipidemia 06/15/2015 Obstructive sleep apnea syndrome 06/15/2015 HTN (hypertension) 06/15/2015 Spinal stenosis 06/15/2015 Resolved Problems Problem Noted Date Diagnosed Date Resolved Date Axillary lymphadenopathy 04/29/2024 BMI 32.0-32.9,adult 12/03/2023 03/09/20 Iron deficiency anemia 12/03/202303/09 Pain in right lower leg 12/03/202302/21 RLQ abdominal pain 12/03/2023 Axillary lymphadenopathy 07/19/2023 Acute dermatitis 06/08/2023 09/08/2023 Carpal tunnel syndrome 06/08/202309/08 Circulating 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 disorder ([facility]) 09/08/2023 CPAP (continuous positive ai rway pressure) dependence 06/08/2023 09/08/2023 Erythema nodosum 06/08/2023 09/08/2023 Hallux malleus of right foot 06/08/2023 09/08/2023 Left leg swelling 06/08/2023 03/09/2024 PN (peripheral neuropathy) 06/08/2023 0 09/08/2023 Primary osteoarthritis of fi rst carpometacarpal joint of right hand 06/08/202308/24 Scapholunate advanced collapse of wrist 06/08/2023 09/08/2023 Cervical spine arthritis 06/08/2023 Hyperlipidemia 06/08/2023 09/08/2023 Diabetes mellitus 06/08/2023 09/08/2023 PE (pulmonary thromboembolism) 04/21/2023 09/08/2023 Type 2 diabetes mellitus wit h diabetic polyneuropathy 04/21/2023 02/16/2024 Acquired hammer toe of left foot 04/24/2021 09/08/2023 Acquired hammer toe of right foot 04/24/2021 09/08/2023 Vasculitis 04/24/2021 09/08/2023 Venous insufficiency of left lower extremity 03/09/2024 Type 2 diabetes mellitus wit h other diabetic neurological complication 04/24/2021 09/08/2023 DVT (deep venous thrombosis) 04/23/2021 09/08/2023 Dyspnea on exertion 04/23/2021 09/08/19 Venous hypertension of left lower extremity 04/23/2021 09/08/2023 Obstructive sleep apnea (adult) (pediatric) 04/23/2021 09/08/2023 Localized, primary osteoarthritis of hand 05/21/2020 09/08/2023 Pain in wrist 05/02/2020 09/08/2023 Other obesity due to excess calories 04/24/2020 09/08/2023 Traumatic arthritis 04/09/2020 09/08/19 24 Acquired hallux valgus 01/31/202009/08 Osteoarthritis of knee 12/22/201909/08 Disorder of soft tissue 08/22/201908/24 Pain in left knee 08/22/2019 09/08/2023 Polyneuropathy due to type 2 diabetes mellitus 01/22/2018 02/16/2024 Multi-system degeneration of the autonomic nervous system 01/04/2018 09/08/2023 Cervical spondylosis without myelopathy 04/07/2017 09/08/2023 Inflammatory and toxic neuropathy 06/26/2016 09/08/2023 Stage 3a chronic kidney disease 06/15/2015 03/09/2024 OA (osteoarthritis) 06/15/2015 09/08/19 24 Obesity 06/15/2015 09/08/2023 Vitamin D deficiency 06/15/2015 024 Hypertension 06/15/2015 09/08/2023 Stage 3 chronic kidney disease 06/15/2015 09/08/2023 Encounters Date Type Department Care Team Description 04/05/2025 9:30 AM EDT Office Visit [facility] [place] [facility] [address] [place] [address] Kristine Branham DPM Surgery follow-up examination (Primary Dx); Hallux malleus, right; Ulcer of great toe, right, limited to breakdown of skin (HCC); Right foot pain 04/05/2025 Bamboo flowsheet [facility] [place] [facility] [address] [place] [address] Kristine Branham DPM 04/05/2025 Travel 03/27/2025 Orders Only [facility] [place] [facility] [address] [place] [address] Unallocated, Amari Chin MD 03/22/2025 11:15 AM EDT Office Visit [facility] [place] [facility] [address] [place] [address] Kristine Branham, IRAM Surgery follow-up examination (Primary Dx); Hallux malleus, right; Right foot pain; Ulcer of great toe, right, limited to breakdown of skin (HCC) 03/22/2025 [facility]amboo [facility] [place] [facility] [address] [place] [address] Kristine Branham DPM 03/22/2025 Travel 03/16/2025 Patient Outreach [facility] [address] [place] [address] Lynda Gee LSW 03/15/2025 Refill [facility] [address] [place] [address] Kristopher Vera DO Chronic deep vein thrombosis (DVT) of femoral vein of left lower extremity ([facility]) 03/14/2025 9:00 AM EDT Office Visit [facility] [place] [facility] [address] [place] [address] Kristine Branham, IRAM Surgery follow-up examination (Primary Dx); Hallux malleus, right; Right foot pain 03/14/2025 Bamboo flowsheet [facility] [place] [facility] [address] [place] [address] Kristine Branham DPM 03/14/2025 Travel 03/09/2025 8:45 AM EDT Office Visit [facility] [place] [facility] [address] [place] [address] Albino Hugo PA Acute pain of left knee (Primary Dx); Primary osteoarthritis of left knee 03/09/2025 Bamboo flowsheet [facility] [place] [facility] [address] [place] [address] Albino Hugo PA 03/09/2025 Travel 03/07/2025 8:30 AM EDT Office Visit [facility] [place] [facility] [address] [place] [phone] Kristine Branham, IRAM Surgery follow-up examination (Primary Dx); Hallux malleus, right; Right foot pain; Ulcer of great toe, right, limited to breakdown of skin (HCC) 03/07/2025 Telephone [facility] [place] [facility] [address] [place] [address] Kristine Branham, DPM 03/07/2025 Bamboo flowsheet [facility] [place] [facility] [address] [place] [address] Kristine Branham, SIGRIDM 03/07/2025 Travel 03/02/2025 Telephone [facility] [place] [facility] [address] [place] [address] Selam Persaud MA 03/02/2025 Telephone [facility] [place] [facility] [address] [place] [address] Selam Persaud MA Re-send Rx 02/22/2025 Telephone [facility] [place] [facility] [address] [place] [address] Venita Marques NP 02/16/2025 9:30 AM EDT Office Visit [facility] [place] [facility] [address] [place] [address] Kristine Branham, DPM Hallux malleus, right (Primary Dx); Right foot pain 02/16/2025 Bamboo flowsheet [facility] [place] [facility] [address] [place] [address] Kristine Branham, DPM 02/16/2025 Travel 02/14/2025 Patient Outreach [facility] [address] [place] [phone] Lynda Gee LSW 02/14/2025 Results Follow-Up [facility] [address] [place] [address] Venita Marques NP XR knee 3 views left 02/13/2025 9:00 AM EDT Ancillary Procedure [facility] [place] [facility] [address] [place] [address] 02/13/2025 8:30 AM EDT Office Visit [facility] [address] [place] [address] Venita Marques, FLORESITA Acute pain of left knee (Primary Dx); Primary osteoarthritis of left knee; Hallux malleus of right foot; Callus; Preoperative clearance 02/13/2025 Travel 02/08/2025 Patient Outreach [facility] [address] [place] [address] Lynda Gee LSW 02/08/2025 Telephone [facility] [address] [place] [address] Allie Gordon Needs Pre-Op Appt 02/06/2025 [facility]phone [facility] [place] [facility] [address] [place] [address] Selam Persaud MA Surgery Question 02/03/2025 Orders Only [facility] [place] [facility] [address] [place] [address] Selam Persaud MA Pre-op testing (Primary Dx) 02/01/2025 8:30 AM EDT [facility] [place] [facility] [address] [place] [address] Kristine Branham DPM Onychomycosis (Primary Dx); Corns and callosities; Hallux malleus, right; Type II diabetes mellitus with neurological manifestations (HCC); Pain in both feet 02/01/2025 Bamboo flowsheet [facility] [place] [facility] [address] [place] [address] Kristine Branham, SIGRIDM 02/01/2025 Travel 01/31/2025 [facility] [address] [place] [address] Kristopher Vera DO Depression, unspecified depression type 01/30/2025 Refill [facility] [place] [facility] [address] [place] [address] [place], [place] Type 2 diabetes mellitus with diabetic polyneuropathy, with long-term current use of insulin (HCC) 01/26/2025 [facility] [address] [place] [address] Adam Smith, FLORESITA Atrophic vaginitis 01/26/2025 [facility] [address] [place] [phone] Kristopher Vera DO Mixed hyperlipidemia ; Type 2 diabetes mellitus with diabetic polyneuropathy, with long-term current use of insulin (HCC) 01/19/2025 Telephone [facility] [place] [facility] [address] [place] [address] [place], [place] Novolog question 01/18/2025 Telephone [facility] [place] [facility] [address] [place] [address] [place], [place] 01/11/2025 Clinisync Result Encounter [facility] Unsolicited Kristopher Vera DO 01/09/2025 8:45 AM EDT Office Visit [facility] [place] [facility] [address] [place] [address] Kristopher Vera DO Medicare annual wellness visit, subsequent (Primary Dx); Advance care planning; Type 2 diabetes mellitus with stage 3a chronic kidney disease, with long-term current use of insulin (HCC); Diabetic peripheral neuropathy associated with type 2 diabetes mellitus (HCC); associate broker current use of insulin (HCC); Mixed hyperlipidemia ; Steatosis of liver; Primary hypertension ; Chronic deep vein thrombosis (DVT) of femoral vein of left lower extremity (HCC); Spinal stenosis of lumbosacral region; Weakness; group home current use of 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; Type 2 diabetes mellitus with diabetic polyneuropathy, with long-term current use of insulin (HCC) 01/09/2025 Patient Outreach [facility] [address] [place] [address] Lynda Gee LSW 01/09/2025 Telephone [facility] [address] [place] [address] Estefanía Escobar LPN 01/09/2025 Bamboo flowsheet [facility] [address] [place] [address] Kristopher Vera DO 01/09/2025 Travel from Last 3 Months Immunizations Immunization Administration Dates Next Due Influenza, High Dose Seasona l, Preservative Free 05/21/2022,05/31/2021,05/14/2018,06/26,05/29/2014 Influenza, High-dose Seasona l, Quadrivalent, Preservative Free 05/29/2023 Influenza, Unspecified 05/27/2023,2017,06/12/2017,06/26,05/29/2014,04/26/2013 Influenza, injectable, quadr ivalent, preservative free 06/12/2017 Influenza, seasonal, injecta ble, preservative free 04/26/2013 Influenza, seasonal, intrade rmal, preservative free 06/15/2015,07/28/2012,05/20/2011 Influenza, trivalent, adjuvanted 06/22/2024,12/10/2019,05/17/2019 Pneumococcal Conjugate PCV 13 07/06/2015 Pneumococcal Conjugate PCV 20 12/04/2021 Pneumococcal Polysaccharide PPSV23 01/14/2019, RSV, recombinant, protein castellon bunit RSVpreF, adjuvant reconstitu, 120mcg/0.5mL, PF (Arexvy) 10/08/2023 Zoster, live 08/24/2013 Family History Medical History Relation Name Comments Cancer Daughter 1 Diabetes Daughter 1 Heart disease Daughter 1 Diabetes Father Heart disease Father Diabetes Mother Heart disease Mother Breast cancer Sister 1 Colon cancer Neg Hx Ovarian cancer Neg Hx Relation Name Status Comments Brother 1 Alive Brother 2 Alive Brother 3 Alive Daughter 1 Daughter 2 Alive Daughter 3 Alive Father Mother Sister 1 Alive Sister 2 Alive Sister 3 Alive Sister 4 Alive Sister 5 Alive Sister 6 Alive Son Alive Social History Tobacco Use Types Packs/Day Years Used Date Smoking Tobacco: Never Passive Smoke Exposure: Past Smokeless Tobacco: Never Tobacco Cessation:Counseling Given: Not Answered Alcohol Use Standard Drinks/Week Comments Never 0 [...] file Not on file Not on file Last Filed Vital Signs Vital Sign Reading Time Taken Comments Blood Pressure 112/70 02/13/2025 8:40 AM EDT Pulse 74 02/13/2025 8:40 AM EDT Temperature - - Respiratory Rate 16 02/13/2025 8:40 AM EDT Oxygen Saturation 98% 02/13/2025 8:40 AM EDT Inhaled Oxygen Concentration - - Weight 82.4 kg (181 lb 9.6 oz) 02/13/2025 8:40 A M EDT Height 154.9 cm (5' 1 ) 02/13/2025 8:40 AM EDT Body Mass Index 34.31 02/13/2025 8:40 AM EDT Plan of Treatment Upcoming Encounters Date Type Department Care Team (Late st Contact Info) Description 04/20/2025 8:15 AM EDT [facility] [place] [facility] [address] [place] [address] Kristine Branham, DPM [address] [place] [address] 05/10/2025 10:15 AM EDT Procedure Visit [facility] [place] [facility] [address] [place] [address] Kristine Branham, DPM [address] [place] [address] 06/07/2025 8:30 AM EDT Office Visit [facility] [place] [facility] [address] [place] [address] Jr. Rhett Navarro, DO [address] [facility] [address] [place] [address] 12/21/2025 9:00 AM EDT Office Visit [facility] [address] [facility] [address] [place] [phone], DO [address] [place] [address] Health Maintenance Due Date Last Done Comments CT Colonography 1950 FIT-DNA 1950 Sigmoidoscopy 1950 FIT 05/18/2020 05/18/2019 FOBT 09/08/2024 09/08/2023 Influenza Vaccine (#1) 2025 , 05/29/2023, 05/27/2023, Additional history exists Mammogram 12/07/2025 12/07/2024, 11/22, 04/29/2024, Additional history exists Colonoscopy 12/27/2033 12/28/2023, 050 01/2024, 12/28/2023, Additional history exists Colorectal Cancer Screening 12/27/2033 Pneumococcal Vaccine: 65+ Years Completed 12/04/2021, 01/14/2019, 07/06/2015, Additional history exists Procedures Procedure Name Priority Date/Time Associated Diagnosis Comments XR CHEST 2 VIEWS Routine 03/24/2025 9:02 AM EDT XR FOOT 3+ VIEWS RIGHT Routine 03/07/2025 9:15 AM EDT Surgery follow-up examination XR FOOT 3+ VIEWS RIGHT Routine 02/16/2025 10:51 AM EDT Hallux malleus, right XR KNEE 3 VIEWS LEFT Routine 02/13/2025 9:10 AM EDT Acute pain of left knee Primary osteoarthritis of left knee TB[facility] MICROALB CREAT RATIO RANDOM Routine 01/11/2025 8:40 AM EDT MLR HEMOGLOBIN A1C Routine 01/11/2025 8: 28 AM EDT ALL THYROID STIM HORMONE Routine 01/11/2025 8:28 AM EDT ALL LIPID PROFILE (FASTING) Routine 01/11/2025 8:28 AM EDT [facility] CMP (CMP) (FOR REMOTE [facility] USE) Routine 01/11/2025 8:28 AM EDT ALL CBC WITH AUTO DIFF Routine 01/11/2025 8:28 AM EDT POCT GLYCATED HEMOGLOBIN, TOTAL Routine 01/09/2025 9:37 AM EDT Type 2 diabetes mellitus with stage 3a chronic kidney disease, with long-term current use of insulin (HCC) BI MAMMOGRAM DIAGNOSTIC TOMOSYNTHESIS BILATERAL Routine 12/07/2024 9:22 AM EDT Abnormal findings on diagnostic imaging of breast COLONOSCOPY Routine 12/28/2023 1:24 PM EDT OCCULT BLOOD X 1, STOOL Routine 09/08/2023 12:00 AM EST Blood in stool Q - FECAL GLOBIN BY IMMUNO (MEDICARE) Routine 05/18/2019 from Last 3 Months or Most Recently Relevant to Health Maintenance Results * XR chest 2 views (03/24/2025 9:02 AM EDT) Anatomical Region Laterality Modality Chest Radiographic Henna ging Noms Provider Unallocated MD IMG XR PROCEDURES F inal Result * XR foot 3+ views right (03/07/2025 9:15 AM EDT) Only the most recent of2 resultswithin the time period is included. Anatomical Region Laterality Modality Lower Extremities, Foot Right Radiogra phic Imaging Narrative 03/07/2025 9:15 AM EDT Imaging Result: Three views of the right foot: AP, MO, LAT were performed today in the office. Radiographs were read by myself and demonstrate: No evidence of acute fracture or dislocation. Prior 1st MPJ arthrodesis with removal of bone to the medial proximal phalanx and correction of hallux malleux and IPJ deformity right hallux. Hammertoes to the lesser digits. Kristine Branham DPM IMG XR PROCEDURES Final Re sult * XR knee 3 views left (02/13/2025 9:10 AM EDT) Anatomical Region Laterality Modality Lower Extremities, Knee Left Radiogra phic Imaging 02/13/2025 11:0 8 AM EDT Narrative 02/13/2025 11:08 AM EDT XR KNEE 3 VIEWS LEFT Reason for [...] signed and approved by the interpreting Radiologist. Procedure Note Edmond Morel MD - 02/13/2025 XR KNEE 3 VIEWS LEFT Reason for exam: Increasing left knee pain, no injury Views: 3 Findings: The alignment is normal. No fracture, dislocation or other acutepathology is demonstrated. There is degenerative joint space narrowingof the medial compartment, lateral compartment and patellofemoral jointcompartment along with marginal spurring and sclerosis. No soft tissueabnormalities are seen. Impression: Tricompartmental osteoarthritis. Dictated on: 02/13/2025 8:57 AM This report has been electronically signed and approved by theinterpreting Radiologist. Venita Marques CLEARANCE CUTTER IMG XR PROCEDURES Final Resu lt * TBH MICROALB CREAT RATIO RANDOM (01/11/2025 8:40 AM EDT) MICROALBUMIN URINE RANDOM <1.3 <=30.0 mg/dL TBH CREATININE URINE RANDOM 65.53 20.00 - 300.00 mg/dL TB 01/11/2025 8:40 AM EDT 01/11/2025 8:43 AM EDT Narrative CLINISYNC - 01/11/2025 9:00 AM EDT Kristopher VARMAISYNC Final Result Performing Organization Address [facility] de Phone Number CLINISYNC TB * (ABNORMAL) MLR HEMOGLOBIN A1C (01/11/2025 8:28 AM EDT) GLYCOHEMOGLOBIN A1C 7.5(H) 4.5 - 6.2 % TB Comment: ADA RECOMMENDED LIMIT 4.0 - 6.0 ADA THERAPEUTIC TARGET < 7.0 ACTION SUGGESTED > 7.0 ESTIMATED AVERAGE GLUCOSE 169 mg/dL TBH 01/11/2025 8:28 AM EDT 01/11/2025 8:31 AM EDT Narrative CLINISYNC - 01/11/2025 9:38 AM EDT Kristopher VARMAISYVALERIY Final Result Performing Organization Address [facility] Co de Phone Number CLINISYNC TB * (ABNORMAL) [facility] CMP (CMP) (FOR REMOTE [facility] USE) (01/11/2025 8:28 AM EDT) SODIUM 142 136 - 145 mmol/L TBH POTASSIUM 4.2 3.5 - 5.1 mmol/L TBH CHLORIDE 104 98 - 107 mmol/L TBH CARBON DIOXIDE 26.3 21.0 - 32.0 mmol/L TBH ANION GAP 15.9 TBH GLUCOSE 167(H) 74 - 106 mg/dL TBH BLOOD UREA NITROGEN 23.0(H) 7.0 - 18.0 mg/dL TBH CREATININE 0.98 0.55 - 1.02 mg/dL TBH TBH EGFR-AF BRUNEIAN >60 >=60 mL/min/1. 73m 2 TBH TBH EGFR-NON AF BRUNEIAN 56(L) >=60 mL/min/1. 73m 2 TBH BUN CREATININE RATIO 23.5 TBH CALCIUM 9.0 8.5 - 10.1 mg/dL TBH BILIRUBIN TOTAL 0.4 0.2 - 1.0 mg/dL TBH ASPARTATE AMINO TRANSFERASE 20 15 - 37 U/L TBH ALANINE AMINOTRANSFERASE 29 14 - 59 U/L TBH ALKALINE PHOSPHATASE 57 46 - 116 U/L TBH TOTAL PROTEIN 6.8 6.4 - 8.2 g/dL TBH ALBUMIN LEVEL 3.3(L) 3.4 - 5.0 g/dL TBH GLOBULIN 3.5 g/dL TBH ALBUMIN GLOBULIN RATIO 0.9 TBH 01/11/2025 8:28 AM EDT 01/11/2025 8:31 AM EDT Narrative CLINISYNC - 01/11/2025 9:10 AM EDT Kristopher Vera DO CLINISYNC Final Result JEFF TB * ALL THYROID STIM HORMONE (01/11/2025 8:28 AM EDT) THYROID STIMULATING HORMONE 1.511 0.358 - 3.740 uIU/mL TBH 01/11/2025 8:28 AM EDT 01/11/2025 8:31 AM EDT Narrative CLINISYNC - 01/11/2025 9:10 AM EDT Kristopher VARMAISYNC Final Result Performing Organization Address [facility] de Phone Number [facility] * (ABNORMAL) ALL LIPID PROFILE (FASTING) (01/11/2025 8:28 AM EDT) TRIGLYCERIDES 159(H) <=150 mg/dL TBH CHOLESTEROL 140 <=200 mg/dL TB HDL CHOLESTEROL 47 40 - 60 mg/dL TB Comment: > or =60 mg/dl - LOW CARDIOVASCULAR RISK <40 mg/dl - HIGH CARDIOVASCULAR RISK LDL CHOLESTEROL CALCULATED 62.0 mg/dL TB Comment: <100 mg/dl OPTIMAL 100-129 mg/dl NEAR OR ABOVE OPTIMAL 130-159 mg/dl BORDERLINE HIGH 160-189 mg/dl HIGH >190 mg/dl VERY HIGH VLDL CHOLESTEROL 31.8 mg/dL TB CHOL HDL RATIO 3.0 TB Comment: 3.3 - 4.4 LOW RISK 4.4 - 7.1 AVERAGE RISK 7.1 - 11.0 MODERATE RISK >11.0 HIGH RISK 01/11/2025 8:28 AM EDT 01/11/2025 8:31 AM EDT Narrative CLINISYNC - 01/11/2025 9:10 AM EDT Kristopher MCNEILL Final Result Performing Organization Address [facility] de Phone Number [facility] * (ABNORMAL) ALL CBC WITH AUTO DIFF (01/11/2025 8:28 AM EDT) TBH WBC 5.1 4.0 - 11.0 10 3/uL TBH TBH RBC 3.91(L) 4.20 - 5.40 10 6/uL TBH TBH HGB 12.9 12.0 - 16.0 g/dL TBH TBH HCT 37.5 36.0 - 48.0 % TBH TBH MCV 95.9 81.0 - 99.0 fL TBH TBH MCH 33.0 26.7 - 34.0 pg TBH TBH MCHC 34.4 29.9 - 35.2 g/dL TBH TBH RDW 12.3 11.0 - 15.0 % TBH TBH PLT 223 150 - 450 10 3/uL TBH TBH MPV 10.8 9.5 - 13.5 fL TBH NEUTROPHILS PERCENT AUTO 64.3 43.0 - 75.0 % TBH LYMPHOCYTES PERCENT AUTO 24.0 20.5 - 60.0 % TBH MONOCYTES PERCENT AUTO 8.3 1.7 - 12.0 % TBH TBH EO % 2.6 0.9 - 7.0 % TBH BASOPHILS PERCENT AUTO 0.6 0.2 - 2.0 % TBH IMMATURE GRANULOCYTES PCT AUTO 0.2 0.0 - 0.5 % TBH NEUTROPHILS ABSOLUTE AUTO 3.3 1.4 - 6.5 10 3/uL TBH LYMPHOCYTES ABSOLUTE AUTO 1.2 1.2 - 3.8 10 3/uL TBH MONOCYTES ABSOLUTE AUTO 0.4 0.3 - 0.8 10 3/uL TBH TBH EO # 0.1 0.0 - 0.7 10 3/uL TBH BASOPHILS ABSOLUTE AUTO 0.0 0.0 - 0.1 10 3/uL TBH IMMATURE GRANULOCYTES ABS AUTO 0.01 0.00 - 0.03 10 3/uL TBH 01/11/2025 8:28 AM EDT 01/11/2025 8:31 AM EDT Narrative CLINISYNC - 01/11/2025 8:50 AM EDT Kristopher Vera DO CLINISYNC Final Result [facility] * POCT Glycated hemoglobin, total (01/09/2025 9:37 AM EDT) Hemoglobin A1C 7.3% Blood 01/09/2025 9:37 AM EDT Kristophre Vera DO POINT OF CARE TEST ENTER/TIKA T ORDERABLES Final Result * Bilateral diagnostic mammogram with tomosynthesis (12/07/2024 9:22 AM EDT) Anatomical Region Laterality Modality Breast Bilateral Mammography 12/07/2024 9:22 AM EDT Impressions 12/07/2024 9:32 AM EDT NO MAMMOGRAPHIC EVIDENCE OF MALIGNANCY. ROUTINE FOLLOW-UP [...] Leon Jr., D.O.12/07/2024 9:30 AM Dictation Location: [facility] Dictated By: Noe De Leon Jr, DO 12/07/24921 Signed By: <Electronically signed by Noe De Leon Jr, DO in OV> 12/07/24 0930 Narrative 12/07/2024 9:32 AM EDT [facility] [address] [place] [address] Mammography Report Signed Patient: Nicol Frances MR#: [id number] [birth year] : 1950 Acct:[id number] Age/Sex: 74 / F Adm Date: 12/07/24 Loc: [place] Room: Type: [facility] Attending Dr: Ahsan Way DO Ordering Provider: Ahsan Way DO Date of Service: 12/07/24 Procedure(s): MM diagnostic mammo BI w/CAD Accession Number(s): ([id number]) MM/MM diagnostic mammo BI w/CAD: Yrly mamms [...] suspicious microcalcifications. MM/MM diagnostic mammo BI w/CAD Procedure Note Noe De Leon Jr., DO - 12/07/2024 [facility] [address] [place] [address] Mammography Report Signed Patient: Nicol Frances JMR#: [id number] [birth year] : 1950cct:[id number] Age/Sex: 74 / FAdm Date: 12/07/24 Loc: [place] Room:Type: [facility] Attending Dr: Ahsan Way DO Ordering Provider: Ahsan Way DO Date of Service: 12/07/24 Procedure(s): MM diagnostic mammo BI w/CAD Accession Number(s): ([id number]) MM/MM diagnostic mammo BI w/CAD: Yrlymamms w/Lt. axillary US Copies to: DO Kristopher Carvalho DO CLINICAL DATA: Follow-up for lymph nodes. Bilateral DIAGNOSTIC MAMMOGRAM - WITH TOMOSYNTHESIS AND CAD COMPARISON:Mammograms dating back to 2019 Tomosynthesis imaging was obtained using low-dose digital technique.This examination was reviewed with the aid of CAD. FINDINGS: The breasts are composed of scattered fibroglandular densities. Theprominent lymph nodes involving the axillary regions have resolved. No new areas of architecturaldistortion, worrisome masses or suspicious microcalcifications. MM/MM diagnostic mammo BI w/CAD IMPRESSION: NO MAMMOGRAPHIC EVIDENCE OF MALIGNANCY. ROUTINE FOLLOW-UP IS RECOMMENDED IN ONE YEAR. RESULT CODE: 1 Negative DENSITY CODE: 2 (approximately 25-50% glandular) There are scattered areasof fibroglandular density. FOLLOW UP: 1YR The false-negative rate of mammography is approximately 10-percent. Management of a palpable abnormality must be based on clinical grounds. Patient was entered into a reminder system with a target due date for thenext mammogram. Impression dictated by: Noe De Leon Jr., D.OOmari12/07/2024 9:30 AM Dictation Location: [facility] Dictated By: Noe De Leon Jr, DO 12/07/24921 Signed By: <Electronically signed by Noe De Leon Jr, DO inOV> 12/07/[address] DO IMG BI PROCEDURES Final R esult * Colonoscopy (12/28/2023 1:24 PM EDT) Anatomical Region Laterality Modality Endoscopy Sandy Clark DO ENDOSCOPY PROCEDURE ORDERABLES F inal Result * (ABNORMAL) Occult blood x 1, stool (09/08/2023 12:00 AM EST) MICRO NUMBER [id number] [facility] SPECIMEN QUALITY Adequate [facility] SOURCE NOT GIVEN [facility] STATUS FINAL [facility] FECAL GLOBIN RESULT SEE NOTE(A) [facility] Comment: Detected Stool Rectal contents / Unknown 09/08/2023 11/13/2023 3:51 PM EDT Narrative Resulting Agency Comment Performing Organization Information Site ID: [id number] Name: [facility] Address: [address] [place] [address], [address] [place] [id number] Director: Celestino Jung MD Adam Smith [facility] BODY FLUIDS AND STOOLS O RDERABLES Final Result Performing Organization Address [facility] Co de Phone Number [facility] * Q - FECAL GLOBIN BY IMMUNO (MEDICARE) (05/18/2019) FECAL GLOBIN BY IMMUNOCHEM. (MEDICARE) SEE NOTE [facility] Comment: FECAL GLOBIN BY IMMUNOCHEM. (MEDICARE) MICRO NUMBER: [id number] TEST STATUS: FINAL SPECIMEN SOURCE: INSURE (TM) FOBT TEST CARD SPECIMEN QUALITY: ADEQUATE RESULT: Not Detected 05/18/2019 us Kristopher Vera DO [facility] Final Result Performing Organization Address City/[facility]/ZIP Co de Phone Number [facility] from Last 3 Months or Most Recently Relevant to Health Maintenance Insurance [employer] Advance Directives * Full Code (Latest Code Status on File) Date Activated Date Inactivated Comments 12/03/2023 10:52 AM Care Teams [employer] Supervisor Relationship Specialty Start Date End Date Karlos Morgan MD [address] [place] [phone] PCP - General Family Medicine 03/17/25
--- OUTSIDE RECORDS SUMMARY | 2025-04-11 10:00 | XMS_ITS | Encounter Summary ---
Author Organization [facility] Address [address] [facility] [place] [address] Care Team Providers Care Ip Architect Name Role Phone Karols Morgan MD Primary Care Provider [phone] Encounter Details Date Type Department Care Team (Late Contact Info) Description 03/27/2025 Orders Only [facility] [place] [facility] [address] [facility] [address] [place] [phone] Unallocated, Noms Provider, [address] [place] [address] Social History Tobacco Use Types Packs/Day Years [...] [address] [place] [phone] Kristine Branham, DPM [address] [place] [address] 05/10/2025 10:15 AM EDT Procedure Visit [facility] [place] [facility] [address] [place] [address] Kristine Branham, DPM [address] [place] [address] 06/07/2025 8:30 AM EDT Office Visit [facility] [address] [place] [address] Jr. Rhett Navarro C, DO [address] [facility] [address] [place] [address] 12/21/2025 9:00 AM EDT Office Visit [facility] [address] [place] [address], DO [address] [place] [address] documented as of this encounter Procedures Procedure Name Priority Date/Time Associated Diagnosis Comments XR CHEST 2 VIEWS Routine 03/24/2025 9:02 AM EDT documented in this encounter Results * XR chest 2 views (03/24/2025 9:02 AM EDT) Anatomical Region Laterality Modality Chest Radiographic Henna ging us Noms Provider Unallocated MD RAMIREZ XR PROCEDURES F inal Result documented in this encounter Visit Diagnoses Not on filedocumented in this encounter Additional Health Concerns Assessment Noted Time PHQ-9 Depression Total Score: 0 01/10/20 25 8:00 AM EDT documented as of this encounter Care Teams Ip Architect Relationship Specialty Start Date End Date Karlos Morgan MD [address] [place] [phone] PCP - General Family Medicine 03/17/25 documented as of this encounter
--- OUTSIDE RECORDS SUMMARY | 2025-04-11 10:00 | XMS_ITS | Encounter Summary ---
Author Organization [facility] Address [address] [place] [address] Care Team Providers Care Actuarial Director Name Role Phone Kristopher Vera DO Unavailable [phone] Kristopher Vera DO Primary Care Provider [phone] Kristopher Vera DO Unavailable [phone] Maurice Melo MD Primary Care Provider [phone] Karlos Morgan MD Primary Care Provider [phone] Encounter Details Date Type Department Care Team (Late st Contact Info) Description 12/29/2023 Orders Only [facility] [place] [facility] [address] [place] [address] Dee Anaya MA Social History Tobacco Use Types Packs/Day Years [...] [address] [place] [phone] Kristine Branham, DPM [address] [place] [address] 05/10/2025 10:15 AM EDT Procedure Visit [facility] [place] [facility] [address] [place] [phone] Kristine Branham, DPM [address] [place] [address] 06/07/2025 8:30 AM EDT Office Visit [facility] [address] [place] [phone] Jr. Rhett Navarro, DO [address] [facility] [address] [place] [address] 12/21/2025 9:00 AM EDT Office Visit [facility] [address] [facility] [address] [place] [phone] Ahsan Way, DO [address] [place] [address] documented as of this encounter Visit Diagnoses Not on filedocumented in this encounter Care Teams Actuarial Director Relationship Specialty Start Date End Date Kristopher Vera DO [address] [place] [address] PCP - [employer] 12/22/21 08/23/24 Kristopher Vera DO [address] [place] [address] PCP - General Internal Medicine 12/30/22 03/13/25 Kristopher Vera DO [address] [facility] [address] [place] [address] PCP - [employer] 11/22/21 02/22/24 Maurice Melo MD [address] [facility] [address] [place] [address] PCP - General Internal Medicine 03/14/25 03/16/25 Karlos Morgan MD [address] [place] [phone] PCP - General Family Medicine 03/17/25 documented as of this encounter
--- OUTSIDE RECORDS SUMMARY | 2025-04-11 10:00 | XMS_ITS | Encounter Summary ---
Author Organization [facility] Address [address] [place] [address] [place] [address] Care Team Providers Care Concreter Name Role Phone Kristopher Vera DO Unavailable [phone] Kristopher Vera DO Primary Care Provider [phone] Kristopher Vera DO Unavailable [phone] Maurice Melo MD Primary Care Provider [phone] Karlos Morgan MD Primary Care Provider [phone] Encounter Details Date Type Department Care Team (Late st Contact Info) Description 12/28/2023 Orders Only [facility] [place] [facility] [address] [facility] [address] [place] [address] Sandy Clark DO [address] [place] [address] Social History Tobacco Use Types Packs/Day Years [...] [address] [place] [phone] Kristine Branham, DPM [address] [place] [address] 05/10/2025 10:15 AM EDT Procedure Visit [facility] [address] [place] [phone] Kristine Branham, DPM [address] [place] [address] 06/07/2025 8:30 AM EDT Office Visit [facility] [address] [place] [phone] Jr. Rhett Navarro C, DO [address] [facility] [address] [place] [address] 12/21/2025 9:00 AM EDT Office Visit [facility] [address] [place] [phone], DO [address] [place] [address] documented as of this encounter Procedures Procedure Name Priority Date/Time Associated Diagnosis Comments COLONOSCOPY Routine 12/28/2023 1:24 PM EDT documented in this encounter Results * Colonoscopy (12/28/2023 1:24 PM EDT) Anatomical Region Laterality Modality Endoscopy us Sandy Clark DO ENDOSCOPY PROCEDURE ORDERABLES F inal Result documented in this encounter Visit Diagnoses Not on filedocumented in this encounter Care Teams Concreter Relationship Specialty Start Date End Date Kristopher Vera DO [address] [place] [address] PCP - [employer] 12/22/21 08/23/24 Kristopher Vera DO [address] [place] [address] PCP - General Internal Medicine 12/30/22 03/13/25 Kristopher Vera DO [address] [place] [address] PCP - [employer] 11/22/21 02/22/24 Maurice Melo MD [address] [place] [address] PCP - General Internal Medicine 03/14/25 03/16/25 Karlos Morgan MD [address] [place] [address] PCP - General Family Medicine 03/17/25 documented as of this encounter
[2025-04-11] MEDS: REGADENOSON 0.4 MG/5 ML SYRINGE IV (11:39)
--- NOTE | 2025-04-11 11:39 | PC.NURSE ---
Nursing Note Cardiac Stress Test Reviewed: Medication, allergies and patient history reviewed. Stress Test: [ x]? Patient tolerated stress test well. [ ]? Patient unable to tolerate walking on treadmill. Switched to Lexiscan stress test. [x ]? No chest pain noted per patient [ ]? Chest pain that resolved prior to leaving stress lab. [x ]? No dyspnea noted. [ ]? Dyspnea that resolved prior to leaving stress lab. [ x]? Patient left stress lab asymptomatic and hemodynamically stable. [ ]? Patient taken to the Emergency Room due to non-resolving symptoms following stress test. [ ]? Patient achieved target heart rate. [ ]? Patient unable to achieve target heart rate. [ ]? Aminophylline administered as reversal agent to Lexiscan (Regadenoson). [ ]? Nitro administered. Nursing Comments: Procedure explained. Consent signed. Patient tolerated stress test well. Denied chest pain and shortness of breath. Complained of a mild headache, a generalized overall feeling of heaviness and dizziness that resolved within 3 minutes. Patient wearing a continuous glucose monitor from home. Blood sugar reads 102. Patient wheeled to cafeteria and reported that all symptoms resolved.
--- OUTSIDE RECORDS SUMMARY | 2025-04-11 12:12 | XMS_ITS | CCD ---
Author Organization [facility] Care Team Providers Care Dub Room Engineer Name Role Phone Lauren Vance Unavailable Antonio Thompson Unavailable Tang Mcclellan Unavailable DO Kristopher Herzog Primary Care Provider MD Tang Mcclellan Attending Provider IRAM Molina Attending Provider DO Kristopher Herzog Attending Provider DO Kristopher Herzog Primary Care Provider DO Kristopher Herzog Attending Provider DO Radha Verduzco Attending Provider DO Kristopher Herzog Primary Care Provider IRAM Molina Attending Provider DO Kristopher Herzog Attending Provider DO Radha Verduzco Attending Provider MD Edmond Branham Emergency Provider Olu Rene Unavailable DO Kristopher Herzog Primary Care Provider [phone] DO Kristopher Herzog Attending Provider Kiersten Qureshi Unavailable DO Kristopher Herzog Primary Care Provider [phone] MD Edmond Branham Emergency Provider DO Kristopher Herzog Attending Provider DO Radha Verduzco Attending Provider DO Kristopher Herzog Attending Provider FAITH Lobo Emergency Provider MD Rosalina Shelton Admit Provider MD Rosalina Shelton Attending Provider [phone] DO Chuy Kristopher Primary Care Provider DO Gabriel Castaneda Attending Provider DO Kristopher Herzog Primary Care Provider [phone] DO Kristopher Herzog Attending Provider DO Radha Verduzco Attending Provider NO FAMILY, PHYSICIAN Primary Care Provider Unava ilable Tita Roberts Unavailable Kristopher Herzog DO Unavailable [phone] Kristopher Herzog DO Primary Care Provider DO Kristopher Herzog Primary Care Provider DO Kristopher Herzog Attending Provider DO Chuy Kristopher Primary Care Provider DO Kristopher Herzog Attending Provider [phone] DO Radha Verduzco Attending Provider [phone] Ly, DO Sandy L Attending Provider DO Kristopher Herzog Primary Care Provider DO Johnny Keen Emergency Provider DO Kristopher Herzog Primary Care Provider DO Chuy Kristopher Primary Care Provider Kristopher Herzog DO Unavailable Kristopher Herzog Primary Care Unavailable Ly, Sandy L Admitting Unavailable Ly, Sandy L Attending Unavailable Johnny Keen Admitting Unavailable Johnny Keen Attending Unavailable Kristopher Herzog Primary Care Unavailable Radha Verduzco Admitting Unavailable Radha Verduzco Attending Unavailable Kristopher Herzog Primary Care Unavailable Kristopher Herzog DO Primary Care Provider [phone] Radha Verduzco DO Attending Provider Kristopher Herzog DO Primary Care Provider Kristopher Herzog DO Referring Provider Kiersten Qureshi RPH Attending Provider Toyin Roberts PharmD, Tita Attending Provider Kristopher Batista DO Primary Care Provider [phone] Kristopher Herzog DO Referring Provider [phone] Kiersten Qureshi RPH Attending Provider Karlos Ramey MD Primary Care Provider [phone] KRISTOPHER HERZOG Attending Unavailable KRISTOPHER HERZOG Referring Unavailable PERNELL MARQUESSSICA Ephraim Attending Unavailable DIDION, VENITA L Referring Unavailable DIDION, VENITA L Referring Unavailable MARLON BRANHAM Attending Unavailable DIDION, VENITA L Attending Unavailable DIDION, VENITA L Referring Unavailable DIDION, VENITA L Referring Unavailable KRISTOPHER HERZOG Attending Unavailable RADHA VERDUZCO Attending Unavailable KRISTOPHER HERZOG Attending Unavailable MARLON BRANHAM Attending Unavailable DIDION, VENITA L Attending Unavailable DIDION, VENITA L Referring Unavailable VINAY, MARLON H Attending Unavailable MARLON BRANHAM H Attending Unavailable CARO HUGO Attending Unavailable DIDION, VENITA L Referring Unavailable NADIA BRANHAMRA Olman Attending Unavailable VINAY, MARLON H Attending Unavailable VINAY, MARLON H Attending Unavailable AROLDO BRANHAMANDRA H Attending Unavailable LUBA, RADHA H Attending Unavailable ADAM RODRIGUEZ Attending Unavailable MARLON BRANHAM Attending Unavailable Medications Current Medications Medication Drug Class(es) Dates Sig (Normalized) Sig (Original) acetaminophen 500 mg oral tablet (20 sources) Start: 05-08-2021 take 2 tablets by mouth every six hours as needed for pain take 2 tablets by [facility] twice daily as needed for pain acetaminophen (Tylenol Extra Strength) 5 00 MG tablet Take 1,000 mg by mouth 2 (two) times a day as needed for mild pain. Active Tylenol Active acetaminophen 325 mg / HYDROcodone bitartrate 5 mg oral tablet (20 sources) Opioid Agonist Start: 03-02-2025 End: 03-07-2025 take 1 tablet by mouth every six hours for pain HYDROcodone-acetaminophen ([place]) 5-325 MG tablet Indications: Hallux malleus, right , Right foot pain Take 1 tablet by mouth every 6 (six) hours if needed for severe pain for up to 5 days 20 tablet 03/02/2025 03/07/2025 Active Start: 02-16-2025 End: 02-21-2025 take 1 tablet by mouth every six hours for pain HYDROcodone-acetaminophen ([place]) 5-325 MG tablet Indications: Hallux malleus, right [...] 4-6 HOURS as needed for Pain 12 3 January 03, 2021 May 08, 2021 10:21am Start: 04-30-2017 End: 06-19-2017 take 1 tablet by mouth every four to six hours as needed for pain Hydrocodone-Acetaminophen ([place]) 5-325 mg tablet Discontinued 1 TAB PO [...] 2024 11:36am apixaban 5 mg oral tablet (5 sources) Factor Xa Inhibitor Start: 03-16-2025 take [...] Start: 04-29-2017 take 1 capsule by mo uth once daily take 1 tablet by mouth [...] 30 g 2 09/17/2023 Active Continuous Glucose Performance Architect (FreeStyle Carline 3 [place]) device (20 sources) Start: 11-01-2024 Continuous Glu cose Performance Architect (FreeStyle Carline 3 [place]) device Indications: Diabetic peripheral neuropathy associated with type 2 diabetes mellitus (HCC) , detention current use of insulin (HCC) USE I DEVICE CONTINUOUSLY 1 each 3 11/01/2024 Active Start: 11-01-2024 Continuous Glu cose Performance Architect (FreeStyle Carline 3 [place]) device Indications: Diabetic peripheral neuropathy associated with type 2 diabetes mellitus (CMS/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) , 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) USE I DEVICE CONTINUOUSLY 1 each 3 11/01/2024 Active Start: 09-06-2024 End: 09-06-2025 Continuous Glucose Performance Architect (FreeStyle Carline 3 [place]) device Indications: Diabetic peripheral neuropathy associated with type 2 diabetes mellitus (CMS/HCC) , 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) 1 Device continuously 1 each 09/06/2024 09/06/2025 Active Continuous Glucose Sensor (FreeStyle Carline 3 Sensor) misc (20 sources) Start: 09-06-2024 End: 09-06-2025 Continuous Glucose Sensor (FreeStyle Carline 3 Sensor) misc Indications: Diabetic peripheral neuropathy associated with type 2 diabetes mellitus (HCC) , 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) 1 Device every 14 (fourteen) days 7 each 3 09/06/2024 09/06/2025 Active Start: 09-06-2024 End: 09-06-2025 Continuous Glucose Sensor (F reeStyle Carline 3 Sensor) misc Indications: Diabetic peripheral neuropathy associated with type 2 diabetes mellitus (CMS/HCC) , detention current use of insulin (CMS/[facility]) 1 Device every 14 (fourteen) days 7 [...] tablet (20 sources) Loop Diuretic Start: 12-23-19 take 1 tablet by mouth once daily [...] polyneuropathy, with long-term current use of insulin ([facility]) Inject 14 Units under the skin in [...] Take before meals. 90 tablet 3 03/25/2024 Active Start: 06-10-2023 take 1 tablet by [...] Start: 01-09-2022 take 2 tablets by mo [facility] three times daily sulfaSALAzine (Azulfidine) 500 MG tablet TAKE TWO (2) TABLETS BY MOUTH THREE TIMES PER DAY 12/20/2022 Active Start: 01-09-2022 take 2 tablets by [facility] every six hours sulfaSALAzine 500 MG 2 [...] DAYS Start: 11-07-2021 take 1 tablet by [facility] every eight hours sulfaSALAzine 500 MG [...] alog-40) injection 40 mg Start: 10-03-2024 End: 02-10-2025 40 mg, Intra-articular, Once , On Thu10/03/24 at 0945, For 1 dose Start: 12-26-2019 KAMRON - 10 aaron g December, 40 mg Start: 08-22-2019 BRAXTONALOG - 10 aaron g Jul, 40 mg Start: 11-05-2018 BRAXTONALOG - 10 aaron g Oct, 40 mg Start: 10-27-2014 KAMRON - 10 aaron g Oct, 40 mg Start: 10-15-2014 BRAXTONALOG - 10 aaron g Sep, 40 mg Triamterene-HCTZ (5 sources) [...] 2 tablets by mouth once daily Vitamins A,C,C-Setg-Cwxnfp (Preservision Areds) 7,160 unit- 113 mg-100 unit [...] 08, 2021 10:21am take 1 capsule by [facility] every twelve hours Gabapentin 100 [...] 2022 11:00pm November 09, 2023 9:07am nystatin [id number] unt/ml topical cream (20 sources) Polyene Antifungal [...] aftercare (20 sources) Drug therapy finding; 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: [detention (current) use of 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s] Episodic Other aftercare (20 sources) Encounter for therapeutic drug level monitoring; 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: [Medication monitoring encounter Z51.81] Onset: 1 Resolved: 2 Episodic Other aftercare (8 sources) Surgical follow-up; 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: [Encounter for follow-up examination after completed treatment for conditions other than malignant neoplasm] 03-07-2025 Episodic Other connective tissue disease (20 sources) Swelling of upper limb; 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: [Other specified soft tissue disorders] 08-06-2019 Episodic Other connective tissue disease (3 sources) Pain in both feet; 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: [Pain in right foot] 08-01-2024 Episodic Other connective tissue disease (10 sources) Pain in right foot; 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: [Pain [...] inflammatory spondylopathy, cervical region] Onset: 7 Resolved: 4 06-19-2017 Chronic Sprains and strains (20 sources) [...] sources) Long-term current use of insulin; 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: [detention (current) use of insulin] Onset: 10-24-2016 06-08-2023 Episodic Other aftercare (20 sources) Long-term current use of 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; 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: [detention (current) use of 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s] Onset: 04-13-2018 06-08-2023 [...] stenosis; 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: [Spinal stenosis, site unspecified] Onset: 06-15-2015 08-06-2019 Episodic Results Test Name Value Interpretation Reference Range Facility No Panel InformationOrdered By: Tita Roberts on 03-13-2025 Bedside INR (LAB) 1.6 [facility] No Panel InformationOrdered By: Tita Roberts on 03-09-2025 Bedside INR (LAB) 1.4 Critically low [facility] XR Foot - right 3 [facility] [...] right hallux. Hammertoes to the lesser digits. [facility] Radiology Study observation (narrative) [facility] No Panel InformationOrdered By: Tita Roberts on 02-22-2025 Bedside INR (LAB) 3.8 [facility] XR Foot - right 3 [facility] Result: Three views of the right foot: AP, MO, LAT were performed today in the office. Radiographs were read by myself and demonstrate: No evidence of acute fracture or dislocation. 1st MPJ arthrodess right with enlarged distal medial proximal phalanx and lateral deviation of the hallux at the IPJ. [facility] Radiology Study observation (narrative) [facility] XR KNEE 3 VIEWS LEFTon 02-13 XR [...] signed and approved by the interpreting Radiologist. [facility] Radiology Study observation (narrative) [facility] XR Knee - left 3 ViewsOrdere d By: Edmond Morel on 02-13-2025 [facility] Work Phone: No Panel InformationOrdered By: Kiersten Qureshi on 02-09-2025 Bedside INR (LAB) 3.2 [facility] No Panel Informationon 02-01 Bedside INR (LAB) 4.0 [facility] ALL CBC WITH AUTO DIFFon BASOPHILS ABSOLUTE AUTO 0 [facility] Basophils/100 WBC (Bld) 0.6 % 0.2 - 2.0 % [facility] Eosinophils/100 WBC (Bld) 2.6 % 0.9 - 7.0 % [facility] Erythrocyte distribution width (RBC) [Ratio] 12.3 % 11.0 - 15.0 % [facility] Hematocrit (Bld) [Volume fraction] 37.5 % 36.0 - 48.0 % [facility] Hemoglobin (Bld) [Mass/Vol] 12.9 g/dL 12.0 - 16.0 g/dL [facility] IMMATURE GRANULOCYTES ABS AUTO 0.01 [facility] Immature granulocytes/100 WBC (Bld) 0.2 % 0.0 - 0.5 % [facility] Interpretation and review of laboratory results Abnormal [facility] LYMPHOCYTES ABSOLUTE AUTO 1.2 [facility] Lymphocytes/100 WBC (Bld) 24 % 20.5 - 60.0 % [facility] MCH (RBC) [Entitic mass] 33 pg 26.7 - 34.0 pg [facility] MCHC (RBC) [Mass/Vol] 34.4 g/dL 29.9 - 35.2 g/dL [facility] MCV (RBC) [Entitic vol] 95.9 fL 81.0 - 99.0 fL [facility] MONOCYTES ABSOLUTE AUTO 0.4 [facility] Monocytes/100 WBC (Bld) 8.3 % 1.7 - 12.0 % [facility] NEUTROPHILS ABSOLUTE AUTO 3.3 [facility] Neutrophils/100 WBC (Bld) 64.3 % 43.0 - 75.0 % [facility] Platelet mean volume (Bld) [Entitic vol] 10.8 fL 9.5 - 13.5 fL [facility]H EO # 0.1 [facility] PLT 223 [facility] RBC 3.91 Low [facility] WBC 5.1 [facility] ALL BASIC METABOLIC PANELon 01-05-2025 Anion gap [Moles/Vol] 12.2 mmol/L [facility] Calcium [Mass/Vol] 8.9 mg/dL 8.5 - 10. 1 mg/dL [facility] Chloride [Moles/Vol] 105 mmol/L 98 - 10 7 mmol/L [facility] CO2 [Moles/Vol] 27 mmol/L 21.0 - 32.0 mmol/L [facility] Creatinine [Mass/Vol] 1.01 mg/dL 0.55 - 1.02 mg/dL [facility] GFR/1.73 sq M.predicted CKD-EPI (S/P/Bld) [Vol rate/Area] >60 >=60 mL/min/1.7 3m 2 [facility] Glucose [Mass/Vol] 143 mg/dL High 74 - 106 mg/dL [facility] Interpretation and review of laboratory results Abnormal [facility] Potassium [Moles/Vol] 4.2 mmol/L 3.5 - 5.1 mmol/L [facility] Sodium [Moles/Vol] 140 mmol/L 136 - 145 mmol/L [facility] EGFR-NON AF [place]AN 54 Low >=60 mL/min/1.7 3m 2 [facility] Urea nitrogen [Mass/Vol] 27 mg/dL High 7.0 - 18.0 mg/dL [facility] Urea nitrogen/Creatinine [Mass ratio] 26.7 mg/mg [facility] No Panel Informationon 01-04 Bedside INR (LAB) 2.7 [facility] MM diagnostic mammo BI w/CAD on 12-07-2024 MM diagnostic mammo BI w/CAD [facility] [address] [place] [address] Mammography Report Signed Patient: Nicol Frances MR#: [id number] 94 : 1950 Acct:[id number] Age/Sex: 74 / F Adm Date: 12/07/24 Loc: [place] Room: Type: [facility] Attending Dr: Radha Verduzco DO Ordering Provider: Radha Verduzco DO Date of Service: 12/07/24 Procedure(s): MM diagnostic mammo BI w/CAD Accession Number(s): ([id number]) MM/MM diagnostic mammo BI w/CAD: Yrly mamms [...] for the next mammogram. Impression dictated by: Ronald Beckman Jr..OOmari12/07/2024 9:30 AM Dictation Location: [facility] Dictated By: Noe De Leon Jr, DO 12/07/24 0922 Signed By: 12/07/24 0930 Normal [facility] Mammography reportOrdered By : Noe De Leon on 12-07-2024 Diagnostic imaging study [facility] [address] [place] [address] Mammography Report Signed Patient: Nicol Frances MR#: [id number] : 1950 Acct:[id number] Age/Sex: 74 / F Adm Date: 5 Loc: [place] Room: Type: [facility] Attending Dr: Radha Verduzco DO Ordering Provider: Radha Verduzco DO Date of Service: 12/07/24 Procedure(s): MM diagnostic mammo BI w/CAD Accession Number(s): ([id number]) MM/MM diagnostic mammo BI w/CAD: Yrly mamms [...] Leon Jr, DO 12/07/24 0922 Signed By: 12/07/2430 [facility] No Panel Informationon 11-30 Bedside INR (LAB) 2.[address] [facility] [address] ABDOMEN PELVIS W IV CONTR [...] Panel Informationon 11-02 Bedside INR (LAB) 2.[address] [facility] [address] HEAD WO IV CONTRASTon CT [...] Panel Informationon 10-05 Bedside INR (LAB) 2.5 [facility] No Panel Informationon 09-09 Bedside INR (LAB) 2.3 [facility] No Panel Informationon 08-03 Bedside INR (LAB) 2.0 [facility] No Panel Informationon 07-04 Bedside INR (LAB) 2.2 [facility] Comprehensive metabolic pane jimbo 06-18-2024 Albumin [Mass/Vol] 4.1 g/dL 3.8 - 4.8 g/dL [facility] ALP [Catalytic activity/Vol] 53 U/L [facility] ALT [Catalytic activity/Vol] 12 U/L [facility] AST [Catalytic activity/Vol] 16 U/L [facility] Bilirubin [Mass/Vol] 0.2 mg/dL 0.0 - 1 .2 mg/dL [facility] Calcium [Mass/Vol] 9.6 mg/dL 8.7 - 10. 3 mg/dL [facility] Chloride [Moles/Vol] 104 mmol/L 96 - 10 6 mmol/L [facility] CO2 [Moles/Vol] 22 mmol/L 20 - 29 mmol/L [facility] Creatinine [Mass/Vol] 0.93 mg/dL 0.57 - 1.00 mg/dL [facility] GFR/1.73 sq M.predicted among non-blacks MDRD (S/P/Bld) [Vol rate/Area] 65 mL/min/{1.73_m2} 59 - PINF mL/min/1.7 3 [facility] Globulin (S) [Mass/Vol] 2.7 g/dL 1.5 - 4.5 g/dL [facility] Glucose [Mass/Vol] 126 mg/dL High 70 - 99 mg/dL [facility] Potassium [Moles/Vol] 4.8 mmol/L 3.5 - 5.2 mmol/L [facility] Protein [Mass/Vol] 6.8 g/dL 6.0 - 8.5 g/dL [facility] Sodium [Moles/Vol] 139 mmol/L 134 - 144 mmol/L [facility] Urea nitrogen [Mass/Vol] 18 mg/dL 8 - 27 mg/dL [facility] Urea nitrogen/Creatinine [Mass ratio] 19 mg/mg 12 - 28 [facility] Hemoglobin a1c with eagon Average glucose Estimated from glycated hemoglobin (Bld) [Mass/Vol] 163 mg/dL [facility] HbA1c (Bld) [Mass fraction] 7.3 % High 4.8 - 5.6 % [facility] Comment on above: Prediabetes: 5.7 - 6 .4 Diabetes: >6.4 Glycemic control for adults with diabetes: <7.0 Lipid 1996 panelon Cholesterol [Mass/Vol] 140 mg/dL 100 - 199 mg/dL [facility] Cholesterol in HDL [Mass/Vol] 45 mg/dL 39 - PINF mg/dL [facility] Cholesterol in LDL [Mass/Vol] 70 mg/dL 0 - 99 mg/dL [facility] Cholesterol in VLDL [Mass/Vol] 25 mg/dL 5 - 40 mg/dL [facility] Triglyceride [Mass/Vol] 143 mg/dL 0 - 149 mg/dL [facility] No Panel Informationon 06-18 Interpretation and review of laboratory results Abnormal [facility] Performed at: - [address] [id number] Skates Operator: Juan Dunbar PhD, Phone: [phone] [facility] Specimen Status Reporton Clindamycin Disk diffusion (KB) [[facility]] Comment [facility] Comment on above: Elena Yan CMP14 D efault Elena Yan CMP14 Default A hand-written panel/profile was received from your office. In accordance with the [facility] Ambiguous Test Code Policy dated February 2003, we have completed your order by using the closest currently or formerly recognized AMA panel. We have assigned Comprehensive Metabolic Panel (14), Test Code #305954 to this request. If this is not the testing you wished to receive on this specimen, please contact the [facility] Client Inquiry/Technical Services Department to clarify the test order. We appreciate your business. Ambtan Abbrev LP Default Ambig Abbrev LP Default A hand-written panel/profile was received from your office. In accordance with the [facility] Ambiguous Test Code Policy dated February 2003, we have completed your order by using the closest currently or formerly recognized AMA panel. We have assigned Lipid Panel, Test Code #574070 to this request. If this is not the testing you wished to receive on this specimen, please contact the [facility] Client Inquiry/Technical Services Department to clarify the test order. We appreciate your business. No Panel Informationon 06-06 Bedside INR (LAB) 2.1 [facility] No Panel Informationon 05-09 Bedside INR (LAB) 2.5 [facility] No Panel Informationon 04-14 Bedside INR (LAB) 2.5 [facility] No Panel Informationon 03-14 Bedside INR (LAB) 2.2 [facility] No Panel Informationon 02-16 Bedside INR (LAB) 2.1 [facility] Activated partial thrombopla stin time (aPTT) in platelet poor plasma by coagulation aOrdered By: Johnny Keen on 02-09-2024 aPTT Coag (PPP) [Time] 37.1 s High 25.1-36.5 [facility] Comment on above: A hematocrit value g reater than 55% may lead to inaccurate results in coagulation testing. Patients having hematocrit values >55% require a special collection tube for coagulation studies. Please contact the laboratory at [phone] for redraw instructions. Automated basophil %Ordered By: Johnny Keen on 02-09-2024 Basophils/100 WBC (Bld) 0.6 % Normal . [facility] Comment on above: Performed By: #### P T, PTT, BMP, CBC #### [facility] [address] Automated basophil countOrde red By: Johnny Keen on 02-09-2024 Basophils (Bld) [#/Vol] 0.0 10*3/uL Normal 0.0-0.2 [facility] Comment on above: Result Comment: PERF ORMED BY: [place] [address] PATHOLOGIST JUNIOR PROJECT MANAGER GLENYS BARRON M.D. Performed By: #### P T, PTT, BMP, CBC #### [address] Automated blood monocyte cou ntOrdered By: Johnny Keen on 02-09-2024 Monocytes (Bld) [#/Vol] 0.5 10*3/uL Normal 0.0-0.8 [facility] Comment on above: Performed By: #### P T, PTT, BMP, CBC #### [facility] [address] [place] [address] Automated eosinophil %Ordere d By: Johnny Keen on 02-09-2024 Eosinophils/100 WBC (Bld) 0.4 % Normal . [facility] Comment on above: Performed By: #### P T, PTT, BMP, CBC #### [address] Automated eosinophil countOr dered By: Johnny Keen on 02-09-2024 Eosinophils (Bld) [#/Vol] 0.0 10*3/uL Normal 0.0-0.45 [facility] Comment on above: Performed By: #### P T, PTT, BMP, CBC #### [address] Automated epithelial cells c ount in urine sediment (number/area)Ordered By: Johnny Keen on 02-09-2024 Epithelial cells Auto (Urine sed) [#/Area] 10-19 [HPF] High 0-2 [facility] Automated monocyte %Ordered By: Johnny Keen on 02-09-2024 Monocytes/100 WBC (Bld) 8.0 % Normal . [facility] Comment on above: Performed By: #### P T, PTT, BMP, CBC #### [facility] [address] [place] [address] Automated neutrophil %Ordere d By: Johnny Keen on 02-09-2024 Neutrophils/100 WBC (Bld) 73.4 % Normal . [facility] Comment on above: Performed By: #### P T, PTT, BMP, CBC #### [address] Bacteria [Presence] in Urine by AutomatedOrdered By: Johnny Keen on 02-09-2024 Bacteria Auto Ql (U) 1+ [HPF] High None Seen [facility] Basic Metabolic Panelon 01-22 Creatinine Clr Calc Pharmacy 48.37 Normal [facility] Comment on above: Result Comment: PERF ORMED BY: [place] [address] PATHOLOGIST JUNIOR PROJECT MANAGER GLENYS BARRON M.D. Performed By: #### P T, PTT, BMP, CBC #### [address] GFR/1.73 sq M.predicted MDRD (S/P/Bld) [Vol rate/Area] 59.856 mL/min/{1.73_m2} Normal [facility] Comment on above: Performed By: #### P T, PTT, BMP, CBC #### [address] Bilirubin Test strip Ql (U)O rdered By: Johnny Keen on 02-09-2024 Bilirubin Ql (U) Negative Negative [facility] CT head/brain wo conon 02-08 CT head/brain wo con [facility] [place] [address] [place] [address] CT Scan Report Signed Patient: Nicol Frances MR#: [id number] 94 : 1950 Acct:[id number] Age/Sex: 73 / F ADM Date: 02/09/24 Loc: ER Room: Type: [facility] Attending Dr: Copies to: Johnny Keen DO Ordering Provider: oJhnny Keen DO Date of Service: 02/09/24 CT/CT cervical spine wo con: fall ([id number]) CT/CT head/brain wo con: fall CLINICAL DATA: [...] Denise Wallace M.D.02/09/2024 11:26 AM Dictation Location: [place] [address] Transcribed By: [facility] 02/09/24 1126 Dictated By: Denise Wallace MD 02/09/24 1114 Signed By: 02/09/24 1126 Normal [facility] CT lumbar spine wo conon CT lumbar spine wo con [facility] [place] [address] [place], [place] [id number] CT Scan Report Signed Patient: Nicol Frances MR#: [id number] 94 : 1950 Acct:[id number] Age/Sex: 73 / F ADM Date: 02/09/24 Loc: ER Room: Type: [facility] ER Attending Dr: Copies to: Johnny [...] Denise Wallace M.D.02/09/2024 11:39 AM Dictation Location: [place] [address] Transcribed By: [facility] 02/09/24 1139 Dictated By: Denise Wallace MD 02/09/24 1126 Signed By: 02/09/24 1139 Normal [facility] Calcium [Mass/volume] in Ser um or PlasmaOrdered By: Johnny Keen on 02-09-2024 Calcium [Mass/Vol] 8.8 mg/dL Normal 8.6-10.3 [facility] Comment on above: Performed By: #### P T, PTT, BMP, CBC #### [facility] [address] Carbon dioxide, total [Moles /volume] in Serum or PlasmaOrdered By: Johnny Keen on 02-09-2024 CO2 [Moles/Vol] 22.0 mmol/L Normal 21.0-31.0 [facility] Comment on above: Performed By: #### P T, PTT, BMP, CBC #### [address] Casts typing in urine sedime nt by light microscopyOrdered By: Johnny Keen on 02-09-2024 Casts LM Nom (Urine sed) None seen [LPF] None Seen [facility] Chloride [Moles/volume] in S remi or PlasmaOrdered By: Johnny Keen on 02-09-2024 Chloride [Moles/Vol] 103 mmol/L Normal 98-107 [facility] Comment on above: Performed By: #### P T, PTT, BMP, CBC #### [address] Color of Urine by AutoOrdere d By: Johnny Keen on 02-09-2024 Color (U) Light-yellow Normal Yellow [facility] Comment on above: Order Comment: Name Collection Type:: Clean-Voided Midstream Performed By: #### C UU, ADDONUAPLUS #### [address] Complete Blood Count Auto Di ffon 02-09-2024 Mean Corpuscular HGB Conc 34.2 g/dL Normal 32.0-35.0 [facility] Comment on above: Performed By: #### P T, PTT, BMP, CBC #### [place] [address] [place] Monocytes/100 WBC (Bld) 17.76 % Normal 0.00-20.00 [facility] Comment on above: Performed By: #### P T, PTT, BMP, CBC #### [place] [address] [place] NRBC% 0.0 /100{WBC} Normal 0-0.5 [facility] Comment on above: Performed By: #### P T, PTT, BMP, CBC #### [address] Creatinine [Mass/volume] in Serum or PlasmaOrdered By: Johnny Keen on 02-09-2024 Creatinine [Mass/Vol] 1.00 mg/dL Normal 0.60-1.20 [facility] Comment on above: Performed By: #### P T, PTT, BMP, CBC #### [facility] [address] [place] [address] [place] Dipstick and Microscopicon 0 02-09-2024 Bacteria,Urine 1+ High None Seen [facility] Comment on above: Order Comment: Name Collection Type:: Clean-Voided Midstream Performed By: #### C UU, ADDONUAPLUS #### [place] [address] [place] Bilirubin,Urine Negative Normal Negative [facility] Comment on above: Order Comment: Name Collection Type:: Clean-Voided Midstream Performed By: #### C UU, ADDONUAPLUS #### [place] [address] [place] Glucose Ql (U) Normal Normal Normal [facility] Comment on above: Order Comment: Name Collection Type:: Clean-Voided Midstream Performed By: #### C UU, ADDONUAPLUS #### [place] [address] [place] Hyaline Casts,Urine None Seen Normal 0-8 [facility] Comment on above: Order Comment: Name Collection Type:: Clean-Voided Midstream Performed By: #### C UU, ADDONUAPLUS #### [place] [address] [place] Nitrite,Urine Negative Normal Negative [facility] Comment on above: Order Comment: Name Collection Type:: Clean-Voided Midstream Performed By: #### C UU, ADDONUAPLUS #### [place] [address] [place] Occult Blood,Urine 1+ High Negative [facility] Comment on above: Order Comment: Name Collection Type:: Clean-Voided Midstream Result Comment: PERF ORMED BY: [place] [address] PATHOLOGIST JUNIOR PROJECT MANAGER GLENYS BARRON M.D. Performed By: #### C UU, ADDONUAPLUS #### [address] Other Casts,Urine None Seen Normal None Seen [facility] Comment on above: Order Comment: Name Collection Type:: Clean-Voided Midstream Result Comment: PERF ORMED BY: [place] [address] PATHOLOGIST JUNIOR PROJECT MANAGER GLENYS BARRON M.D. Performed By: #### C UU, ADDONUAPLUS #### [address] Protein,Urine Negative Normal Negative [facility] Comment on above: Order Comment: Name Collection Type:: Clean-Voided Midstream Performed By: #### C UU, ADDONUAPLUS #### [address] RBC,Urine None Seen Normal 0-4 [facility] Comment on above: Order Comment: Name Collection Type:: Clean-Voided Midstream Performed By: #### C UU, ADDONUAPLUS #### [address] Specificy [place],Urine 1.014 Normal 1.001-1.03 0 [facility] Comment on above: Order Comment: Name Collection Type:: Clean-Voided Midstream Performed By: #### C UU, ADDONUAPLUS #### [address] Squamous Epithelial Cell,Urine 10-19 High 0-2 [facility] Comment on above: Order Comment: Name Collection Type:: Clean-Voided Midstream Performed By: #### C UU, ADDONUAPLUS #### [address] Urobilinogen,Urine Normal Normal Normal [facility] Comment on above: Order Comment: Name Collection Type:: Clean-Voided Midstream Performed By: #### C UU, ADDONUAPLUS #### [address] [address] [place] WBC,Urine 20-49 High 0-4 [facility] Comment on above: Order Comment: Name Collection Type:: Clean-Voided Midstream Performed By: #### C UU, ADDONUAPLUS #### [facility] [address] ECG 12 lead ECGon 02-09-2024 ECG 12 lead ECG [facility] [place] [address] [place] [address] Electrocardiograph Report Signed Patient: Nicol Frances MR#: [id number] 94 : 1950 Acct:[id number] Age/Sex: 73 / F ADM Date: 02/09/24 Loc: ER Room: Type: [facility] [place] Dr: Ordering Provider: Johnny Keen [...] was found Confirmed by Johnny Keen DO ([id number]) on 02/09/2024 3:32:04 PM Referred By: Electronically Signed By:Johnny Keen DO Transcribed By: MUS Signed By Johnny Keen DO 4 1532 Normal [facility] Erythrocyte distribution wid th [Ratio] by Automated countOrdered By: Johnny Keen on 02-09-2024 Erythrocyte distribution width (RBC) [Ratio] 14.1 % Normal 11.9-15.3 [facility] Comment on above: Performed By: #### P T, PTT, BMP, CBC #### [facility] [address] [place] [address] Erythrocytes [#/area] in Uri ne sediment by Automated countOrdered By: Johnny Keen on 02-09-2024 RBC Auto (Urine sed) [#/Area] None seen [HPF] 0-4 [facility] Erythrocytes [#/volume] in B lood by Automated countOrdered By: Johnny Keen on 02-09-2024 RBC (Bld) [#/Vol] 3.73 10*6/uL Normal 3.60-5.[address] [facility] Comment on above: Performed By: #### P T, PTT, BMP, CBC #### [facility] [address] Glucose [Mass/volume] in Ser um or PlasmaOrdered By: Johnny Keen on 02-09-2024 Glucose [Mass/Vol] 218 mg/dL High 70-100 [facility] Comment on above: ADA recommended refe rence rangeRandom Glucose Reference Range is dependent on time and content of last meal. Glucose of more than 200 mg/dL in a nonstressed, ambulatory subject supports the diagnosis of Diabetes Mellitus. Result Comment: [place] Glucose Reference Range is dependent on time and content of last meal. Glucose of more than 200 mg/dL in a nonstressed, ambulatory subject supports the diagnosis of Diabetes Mellitus. ADA recommended reference range Performed By: #### P T, PTT, BMP, CBC #### [facility] [address] [place] [id number] [facility] Glucose [Mass/volume] in Uri ne by Test stripOrdered By: Johnny Keen on 02-09-2024 Glucose Test strip (U) [Mass/Vol] Normal mg/dL Normal [facility] Hematocrit [Volume Fraction] of Blood by Automated countOrdered By: Johnny Keen on 02-09-2024 Hematocrit (Bld) [Volume fraction] 36.4 % Normal 34.0-46.4 [facility] Comment on above: Performed By: #### P T, PTT, BMP, CBC #### [facility] [address] [place] [id number] [facility] Hemoglobin Test strip Ql (U) Ordered By: Johnny Keen on 02-09-2024 Hemoglobin Ql (U) 1+ High Negative [facility] Hemoglobin [Mass/volume] in BloodOrdered By: Johnny Keen on 02-09-2024 Hemoglobin (Bld) [Mass/Vol] 12.4 g/dL Normal 11.8-15.4 [facility] Comment on above: Performed By: #### P T, PTT, BMP, CBC #### [facility] [address] INR in Platelet poor plasma by Coagulation assayOrdered By: Johnny Keen on 02-09-2024 INR Coag (PPP) [Relative time] 1.8 {INR} Normal [facility] Comment on above: INR Therapeutic Rang [...] By: #### P T, PTT, BMP, CBC ####[facility] [id number] Ketones [Presence] in Urine by Test stripOrdered By: Johnny Keen on 02-09-2024 Ketones Ql (U) Negative Normal Negative [facility] Comment on above: Order Comment: Name Collection Type:: Clean-Voided Midstream Performed By: #### C UU, ADDONUAPLUS #### [facility] [address] Laboratory - UrinalysisOrder ed By: Johnny Keen on 02-09-2024 Hyaline casts LM Ql (Urine sed) None seen [LPF] 0-8 [facility] Leukocyte esterase [Presence ] in Urine by Test stripOrdered By: Johnny Keen on 02-09-2024 Leukocyte esterase Test strip Ql (U) 4+ High Negative [facility] Comment on above: Order Comment: Name Collection Type:: Clean-Voided Midstream Performed By: #### C UU, ADDONUAPLUS #### [facility] [address] [place] [address] Leukocytes [#/area] in Urine sediment by Automated countOrdered By: Johnny Keen on 02-09-2024 WBC Auto (Urine sed) [#/Area] 20-49 [HPF] High 0-4 [facility] Leukocytes [#/volume] correc darío for nucleated erythrocytes in Blood by Automated counOrdered By: Johnny Keen on 02-09-2024 WBC corrected for nucl RBC Auto (Bld) [#/Vol] 6.0 10*3/uL 3.8-11.6 [facility] Leukocytes [#/volume] in Blo od by Automated countOrdered By: Johnny Keen on 02-09-2024 WBC (Bld) [#/Vol] 6.0 10*3/uL Normal 3.8-11.6 [facility] Comment on above: Performed By: #### P T, PTT, BMP, CBC #### [facility] [address] [place] [address] Lymphocytes [#/volume] in Bl ood by Automated countOrdered By: Johnny Keen on 02-09-2024 Lymphocytes (Bld) [#/Vol] 1.1 10*3/uL Normal 1.00-4.8 [facility] Comment on above: Performed By: #### P T, PTT, BMP, CBC #### [facility] [address] [place] [address] [place] Lymphocytes/100 leukocytes i n Blood by Automated countOrdered By: Johnny Keen on 02-09-2024 Lymphocytes/100 WBC (Bld) 17.6 % Normal . [facility] Comment on above: Performed By: #### P T, PTT, BMP, CBC #### [place] [address] [place] MCH [Entitic mass] by Automa darío countOrdered By: Johnny Keen on 02-09-2024 MCH (RBC) [Entitic mass] 33.4 pg Normal 24.7-34.3 [facility] Comment on above: Performed By: #### P T, PTT, BMP, CBC #### [facility] [address] [place] [address] MCHC Auto (RBC) [Mass/Vol]Or dered By: Johnny Keen on 02-09-2024 MCHC (RBC) [Mass/Vol] 34.2 g/dL 32.0-35.0 [facility] MCV [Entitic volume] by Auto mated countOrdered By: Johnny Keen on 02-09-2024 MCV (RBC) [Entitic vol] 97.6 fL Normal 80-100 [facility] Comment on above: Performed By: #### P T, PTT, BMP, CBC #### [facility] [address] [place] [address] Monocyte distribution width [Entitic volume] in Blood by AutomatedOrdered By: Johnny Keen on 02-09-2024 Monocyte distribution width Auto (Bld) [Entitic vol] 17.76 % 0.00-20.00 [facility] Neutrophils [#/volume] in Bl ood by Automated countOrdered By: Johnny Keen on 02-09-2024 Neutrophils (Bld) [#/Vol] 4.4 10*3/uL Normal 1.8-7.7 [facility] Comment on above: Performed By: #### P T, PTT, BMP, CBC #### [facility] [address] [place] [address] Nitrite Test strip Ql (U)Ord ered By: Johnny Keen on 02-09-2024 Nitrite Ql (U) Negative Negative [facility] No Panel InformationOrdered By: Johnny Keen on 02-09-2024 Estimated GFR (CKD-EPI) 59.856 mL/Min [facility] Creatinine Clearance (Chem 48.37 [facility] Nucleated erythrocytes [Pres ence] in Blood by Automated countOrdered By: Johnny Keen on 02-09-2024 Nucleated RBC Auto Ql (Bld) 0.0 /100{WBC} 0-0.5 [facility] Partial Thromboplastin Timeo n 02-09-2024 aPTT Coag (Bld) [Time] 37.1 s High 25.1-36.5 [facility] Comment on above: Result Comment: A he matocrit value greater than 55% may lead to inaccurate results in coagulation testing. Patients having hematocrit values >55% require a special collection tube for coagulation studies. Please contact the laboratory at [phone] for redraw instructions. PERFORMED BY: [place] [address] PATHOLOGIST JUNIOR PROJECT MANAGER GLENYS BARRON M.D. Performed By: #### P T, PTT, BMP, CBC ####[facility] [id number] [place] [address] Platelet mean volume [Entiti c volume] in Blood by Automated countOrdered By: Johnny Keen on 02-09-2024 Platelet mean volume (Bld) [Entitic vol] 8.4 fL Normal 6.3-10.7 [facility] Comment on above: Performed By: #### P T, PTT, BMP, CBC #### [facility] [address] [place] [address] Platelets [#/volume] in Bloo d by Automated countOrdered By: Johnny Keen on 02-09-2024 Platelets (Bld) [#/Vol] 178 10*3/uL Normal 150-450 [facility] Comment on above: Performed By: #### P T, PTT, BMP, CBC #### [facility] [address] [place] [address] Potassium [Moles/volume] in Serum or PlasmaOrdered By: Johnny Keen on 02-09-2024 Potassium [Moles/Vol] 3.9 mmol/L Normal 3.5-5.1 [facility] Comment on above: Performed By: #### P T, PTT, BMP, CBC #### [facility] [address] [place] [address] Protein Test strip (U) [Mass /Vol]Ordered By: Johnny Keen on 02-09-2024 Protein (U) [Mass/Vol] Negative Negative [facility] Prothrombin time (PT)Ordered By: Johnny Keen on 02-09-2024 PT Coag (PPP) [Time] 20.6 s High 9.0-12.9 [facility] Comment on above: A hematocrit value g reater than 55% may lead to inaccurate results in coagulation testing. Patients having hematocrit values >55% require a special collection tube for coagulation studies. Please contact the laboratory at [phone] for redraw instructions. Result Comment: A he matocrit value greater than 55% may lead to inaccurate results in coagulation testing. Patients having hematocrit values >55% require a special collection tube for coagulation studies. Please contact the laboratory at [phone] for redraw instructions. Performed By: #### P T, PTT, BMP, CBC ####[facility] [address] Serum or plasma anion gap de terminationOrdered By: Johnny Keen on 02-09-2024 Anion gap [Moles/Vol] 12.9 mmol/L Normal 6.0-15.0 [facility] Comment on above: Performed By: #### P T, PTT, BMP, CBC #### [facility] [address] Sodium [Moles/volume] in Ser um or PlasmaOrdered By: Johnny Keen on 02-09-2024 Sodium [Moles/Vol] 134 mmol/L Low 136-145 [facility] Comment on above: Performed By: #### P T, PTT, BMP, CBC #### [facility] [address] Specific gravity Test strip (U) [Rel density]Ordered By: Johnny Keen on 02-09-2024 Specific gravity (U) [Rel density] 1.014 1.001-1.03 0 [facility] Urea nitrogen [Mass/volume] in Serum or PlasmaOrdered By: Johnny Keen on 02-09-2024 Urea nitrogen [Mass/Vol] 22 mg/dL Normal 7-25 [facility] Comment on above: Performed By: #### P T, PTT, BMP, CBC #### [facility] [address] Urine Cultureon 02-09-2024 Bacteria identified Cx Nom (U) >100,000 colonies/ml mixed bacterial skin contaminants 2 Days PERFORMED BY: [place] [address] PATHOLOGIST JUNIOR PROJECT MANAGER GLENYS BARRON M.D. Normal [facility] Comment on above: Performed By: #### C UU, ADDONUAPLUS #### [facility] [address] [place] [address] Urine appearanceOrdered By: Johnny Keen on 02-09-2024 Appearance (U) Cloudy Critically abnormal Clear [facility] Comment on above: Order Comment: Name Collection Type:: Clean-Voided Midstream Performed By: #### C UU, ADDONUAPLUS #### [address] Urine culture routineOrdered By: Johnny Keen on 02-09-2024 Bacteria identified Cx Nom (U) 2 Days [facility] Urobilinogen Test strip (U) [Mass/Vol]Ordered By: Johnny Keen on 02-09-2024 Urobilinogen (U) [Mass/Vol] Normal mg/dL Normal [facility] pH of Urine by Test stripOrd ered By: Johnyn Keen on 02-09-2024 pH (U) 6.5 [pH] Normal 5.0-9.0 [facility] Comment on above: Order Comment: Name Collection Type:: Clean-Voided Midstream Performed By: #### C UU, ADDONUAPLUS #### [facility] [address] [place] [address] No Panel Informationon 01-19 Bedside INR (LAB) 2.5 [facility] No Panel Informationon 01-04 Bedside INR (LAB) 2.1 [facility] Capillary blood glucose flakita urement by glucometer (mass/volume)Ordered By: Sandy Clark on 12-28-2023 Glucose [Mass/Vol] 170 mg/dL Normal [facility] Comment on above: Random Glucose Refer ence Range is dependent on time and content of last meal. Glucose of more than 200 mg/dL in a nonstressed, ambulatory subject supports the diagnosis of Diabetes Mellitus. Result Comment: [place] Glucose Reference Range is dependent on time and content of last meal. Glucose of more than 200 mg/dL in a nonstressed, ambulatory subject supports the diagnosis of Diabetes Mellitus. Performed By: #### G LULS #### Point of Care testing , Glucose Poct Glucometerson 0 12-28-2023 Commemt1 Glu2: Cleaned Meter Normal [facility] Comment on above: Result Comment: PERF ORMED BY: [place] [address] PATHOLOGIST JUNIOR PROJECT MANAGER GLENYS BARRON M.D. Performed By: #### G LULS #### Point of Care testing , INR in Platelet poor plasma by Coagulation assayOrdered By: Sandy Clark on 12-28-2023 INR Coag (PPP) [Relative time] 1.0 {INR} Normal [facility] Comment on above: INR Therapeutic Rang [...] heart valves: 3 - 4.5 PERFORMED BY: [place] [address] PATHOLOGIST JUNIOR PROJECT MANAGER GLENYS BARRON M.D. Performed By: #### P T #### [address] Jimbo 12-28-2023 L Specimen: [id number] Received: 12/28/23 Status: TIERRA Moe Num: [id number] Spec Type: Surgical Subm Dr: Sandy Clark DO Tissues: A Colon Biopsy (RT COLON) B Colon Biopsy (TRANSV BX) C Colon Biopsy (LT COLON BX) Procedures: HE/6, Gross/Micro L4/3 Age/ Patient Sex Location Account Attending Physician BostephenNicol Bethel 73/F [id number] Sandy Clark DO SPEC NUM: [id number] RECD: 12/28/23 STATUS: TIERRA YVONNE NUM: [id number] ROQUE: 12/28/23 DR: Sandy Clark DO ENTERED: 12/28/[address] [facility] [address]: SPEC TYPE: Surgical DEPT: S ORDERED: [...] in C1. Clinical history: Ulcerative colitis Specimen: [id number] Received: 12/28/23 Status: JAGDISHAlexander Moe Num: [id number] Spec Type: Surgical Subm Dr: Sandy Clark DO Tissues: A Colon Biopsy (RT COLON) B Colon Biopsy (TRANSV BX) C Colon Biopsy (LT COLON BX) Procedures: Omar/Micro L4/3 Patient: YvroseNicol Bethel [id number] (Continued) Specimen: [id number] Received: 12/28/23 (Continued) Signed (signature on file) Ac Beaulieu MD 12/29/23 1414 Specimen: [id number] Received: 12/28/23 Status: TIERRA Moe Num: [id number] Spec Type: Surgical Subm Dr: Sandy Clark DO Tissues: A Colon Biopsy (RT COLON) B Colon Biopsy (TRANSV BX) C Colon Biopsy (LT COLON BX) Procedures: Omar/Micro L4/3 Patient: Nicol Frances [id number] (Continued) Specimen: [id number] Received: 12/28/23 (Continued) CPT Codes 98351s8 Specimen: Received: 12/28/23 Status: TIERRA Moe Num: [id number] Spec Type: Surgical Subm Dr: Sandy Clark DO Tissues: A Colon Biopsy (RT COLON) B Colon Biopsy (TRANSV BX) C Colon Biopsy (LT COLON BX) Procedures: HE/6, Gross/Micro L4/3 Patient: Nicol Frances [id number] (Continued) Signed (signature on file) Ac Beaulieu MD 12/29/23 1414 Normal [facility] No Panel InformationOrdered By: Sandy Clark on 12-28-2023 Bedside Glucose Comment Glu2: cleaned meter [facility] Prothrombin time (PT)Ordered By: Sandy Clark on 12-28-2023 PT Coag (PPP) [Time] 12.1 s Normal 9.0-12.9 [facility] Comment on above: A hematocrit value g reater than 55% may lead to inaccurate results in coagulation testing. Patients having hematocrit values >55% require a special collection tube for coagulation studies. Please contact the laboratory at [phone] for redraw instructions. Result Comment: A he matocrit value greater than 55% may lead to inaccurate results in coagulation testing. Patients having hematocrit values >55% require a special collection tube for coagulation studies. Please contact the laboratory at [phone] for redraw instructions. Performed By: #### P T #### [address] No Panel Informationon 12-13 Bedside INR (LAB) 2.0 [facility] No Panel Informationon 11-08 Bedside INR (LAB) 2.2 [facility] Prothrombin Time INRon 10-05 INR Coag (PPP) [Relative time] 2.6 {INR} [facility] [employer] Other Prothrombin Time INR [facility] [employer] Other Prothrombin Time INRon 09-07 INR Coag (PPP) [Relative time] 2.6 {INR} [facility] [employer] Other Prothrombin Time INR [facility] [employer] Other Prothrombin Time INRon 08-11 INR Coag (PPP) [Relative time] 2.4 {INR} [facility] [employer] Other Prothrombin Time INR [facility] [employer] Other Prothrombin Time INRon 07-14 INR Coag (PPP) [Relative time] 2.4 {INR} [facility] [employer] Other Prothrombin Time INR [facility] [employer] Other Prothrombin Time INRon 06-15 INR Coag (PPP) [Relative time] 2.8 {INR} [facility] [employer] Other Prothrombin Time INR [facility] [employer] Other Prothrombin Time INRon 04-30 INR Coag (PPP) [Relative time] 2.6 {INR} [place] [employer] Other Prothrombin Time INR [facility] [employer] Other Prothrombin Time INRon 04-08 INR Coag (PPP) [Relative time] 3.1 {INR} [place] [employer] Other Prothrombin Time INR [facility] [employer] Other Prothrombin Time INRon 03-23 INR Coag (PPP) [Relative time] 2.3 {INR} [place] Other Prothrombin Time INR [facility] [employer] Other Prothrombin Time INRon 03-11 INR Coag (PPP) [Relative time] 3.2 {INR} [place] Other Prothrombin Time INR [facility] [employer] Other Prothrombin Time INRon 02-23 INR Coag (PPP) [Relative time] 3.4 {INR} [facility] [employer] Other Prothrombin Time INR [facility] [employer] Other Laboratory - CoagulationOrde red By: Gabriel Castaneda on 12-17-2022 PT Coag (PPP) [Time] 21.0 s 9.0-12.9 [facility] Platelet poor plasma interna tional normalized ratio (INR) by coagulation assay (relatOrdered By: Gabriel Castaneda on 12-17-2022 INR Coag (PPP) [Relative time] 1.8 {INR} [facility] Comment on above: INR Therapeutic Rang [...] Castaneda on 12-15-2022 Glucose [Mass/Vol] 223 mg/dL [facility] Comment on above: Random Glucose Refer ence Range is dependent on time and content of last meal. Glucose of more than 200 mg/dL in a nonstressed, ambulatory subject supports the diagnosis of Diabetes Mellitus. Laboratory - CoagulationOrde red By: Rosalina Shelton on 12-15-2022 PT Coag (PPP) [Time] 15.7 s 9.0-12.9 [facility] No Panel InformationOrdered By: Gabriel Castaneda on 12-15-2022 Bedside Glucose Comment Glu2: cleaned meter [facility] Platelet poor plasma interna tional normalized ratio (INR) by coagulation assay (relatOrdered By: Rosalina Shelton on 12-15-2022 INR Coag (PPP) [Relative time] 1.4 {INR} [facility] Comment on above: INR Therapeutic Rang [...] 12-14-2022 Basophils (Bld) [#/Vol] 0.0 10*3/uL 0.0-0.2 [facility] Basophils/100 WBC Auto (Bld) Ordered By: Rosalina Shelton on 12-14-2022 Basophils/100 WBC (Bld) 1.0 % . [facility] Calcium [Mass/volume] in Ser um or PlasmaOrdered By: Rosalina Shelton on 12-14-2022 Calcium [Mass/Vol] 8.1 mg/dL 8.6-10.3 [facility] Carbon dioxide, total [Moles /volume] in Serum or PlasmaOrdered By: Rosalina Shelton on 12-14-2022 CO2 [Moles/Vol] 24.8 mmol/L 21.0-31.0 [facility] Chloride [Moles/volume] in S remi or PlasmaOrdered By: Rosalina Shelton on 12-14-2022 Chloride [Moles/Vol] 105 mmol/L 98-107 [facility] Creatinine [Mass/volume] in Serum or PlasmaOrdered By: Rosalina Shelton on 12-14-2022 Creatinine [Mass/Vol] 0.98 mg/dL 0.60-1.20 [facility] Eosinophils Auto (Bld) [#/Vo l]Ordered By: Rosalina Shelton on 12-14-2022 Eosinophils (Bld) [#/Vol] 0.1 10*3/uL 0.0-0.45 [facility] Eosinophils/100 WBC Auto (Bl d)Ordered By: Rosalina Shelton on 12-14-2022 Eosinophils/100 WBC (Bld) 2.0 % . [facility] Erythrocyte distribution wid th Auto (RBC) [Ratio]Ordered By: Rosalina Shelton on 12-14-2022 Erythrocyte distribution width (RBC) [Ratio] 14.3 % 11.9-15.3 [facility] Glucose [Mass/volume] in Ser um or PlasmaOrdered By: Rosalina Shelton on 12-14-2022 Glucose [Mass/Vol] 149 mg/dL 70-100 [facility] Comment on above: ADA recommended refe rence rangeRandom Glucose Reference Range is dependent on time and content of last meal. Glucose of more than 200 mg/dL in a nonstressed, ambulatory subject supports the diagnosis of Diabetes Mellitus. Hematocrit Auto (Bld) [Volum e fraction]Ordered By: Rosalina Shelton on 12-14-2022 Hematocrit (Bld) [Volume fraction] 36.1 % 34.0-46.4 [facility] Hemoglobin [Mass/volume] in BloodOrdered By: Rosalina Shelton on 12-14-2022 Hemoglobin (Bld) [Mass/Vol] 12.1 g/dL 11.8-15.4 [facility] Leukocytes [#/volume] correc darío for nucleated erythrocytes in Blood by Automated counOrdered By: Rosalina Shelton on 12-14-2022 WBC corrected for nucl RBC Auto (Bld) [#/Vol] 4.4 10*3/uL 3.8-11.6 [facility] Lymphocytes Auto (Bld) [#/Vo l]Ordered By: Rosalina Shelton on 12-14-2022 Lymphocytes (Bld) [#/Vol] 1.3 10*3/uL 1.00-4.8 [facility] Lymphocytes/100 WBC Auto (Bl d)Ordered By: Rosalina Shelton on 12-14-2022 Lymphocytes/100 WBC (Bld) 28.6 % . [facility] MCH Auto (RBC) [Entitic mass ]Ordered By: Rosalina Shelton on 12-14-2022 MCH (RBC) [Entitic mass] 32.2 pg 24.7-34.3 [facility] MCHC Auto (RBC) [Mass/Vol]Or dered By: Rosalina Shelton on 12-14-2022 MCHC (RBC) [Mass/Vol] 33.4 g/dL 32.0-35.0 [facility] MCV Auto (RBC) [Entitic vol] Ordered By: Rosalina Shelton on 12-14-2022 MCV (RBC) [Entitic vol] 96.3 fL 80-100 [facility] Monocytes Auto (Bld) [#/Vol] Ordered By: Rosalina Shelton on 12-14-2022 Monocytes (Bld) [#/Vol] 0.5 10*3/uL 0.0-0.8 [facility] Monocytes/100 WBC Auto (Bld) Ordered By: Rosalina Shelton on 12-14-2022 Monocytes/100 WBC (Bld) 11.6 % . [facility] Neutrophils Auto (Bld) [#/Vo l]Ordered By: Rosalina Shelton on 12-14-2022 Neutrophils (Bld) [#/Vol] 2.5 10*3/uL 1.8-7.7 [facility] Neutrophils/100 WBC Auto (Bl d)Ordered By: Rosalina Shelton on 12-14-2022 Neutrophils/100 WBC (Bld) 56.8 % . [facility] No Panel InformationOrdered By: Rosalina Shelton on 12-14-2022 Estimated GFR (CKD-EPI) > 60.0 mL/Min [facility] Creatinine Clearance (Chem 54.33 [facility] Nucleated erythrocytes [Pres ence] in Blood by Automated countOrdered By: Rosalina Shelton on 12-14-2022 Nucleated RBC Auto Ql (Bld) 0.1 /100{WBC} 0-0.5 [facility] Platelet mean volume Auto (B ld) [Entitic vol]Ordered By: Rosalina Shelton on 12-14-2022 Platelet mean volume (Bld) [Entitic vol] 8.3 fL 6.3-10.7 [facility] Platelets Auto (Bld) [#/Vol] Ordered By: Rosalina Shelton on 12-14-2022 Platelets (Bld) [#/Vol] 197 10*3/uL 150-450 [facility] Potassium [Moles/volume] in Serum or PlasmaOrdered By: Rosalina Shelton on 12-14-2022 Potassium [Moles/Vol] 4.1 mmol/L 3.5-5.1 [facility] RBC Auto (Bld) [#/Vol]Ordere d By: Rosalina Shelton on 12-14-2022 RBC (Bld) [#/Vol] 3.75 10*6/uL 3.60-5.[address] [facility] Serum or plasma anion gap de terminationOrdered By: Rosalina Shelton on 12-14-2022 Anion gap [Moles/Vol] TNP [facility] Comment on above: Test not performed Sodium [Moles/volume] in Ser um or PlasmaOrdered By: Rosalina Shelton on 12-14-2022 Sodium [Moles/Vol] 135 mmol/L 136-145 [facility] Comment on above: Hemolysis is present at a level that could interfere with the result. Troponin I.cardiac [Mass/vol ume] in Serum or Plasma by Detection limit <= 0.01 ng/Ordered By: Rosalina Shelton on 12-14-2022 Troponin I.cardiac DL <= 0.01 ng/mL [Mass/Vol] 6.3 pg/mL 0.0-15.0 [facility] Urea nitrogen [Mass/volume] in Serum or PlasmaOrdered By: Rosalina Shelton on 12-14-2022 Urea nitrogen [Mass/Vol] 13 mg/dL 7-25 [facility] WBC Auto (Bld) [#/Vol]Ordere d By: Rosalina Shelton on 12-14-2022 WBC (Bld) [#/Vol] 4.4 10*3/uL 3.8-11.6 [facility] Activated partial thrombopla stin time (aPTT) in platelet poor plasma by coagulation aOrdered By: Celio Lobo on 12-13-2022 aPTT Coag (PPP) [Time] 38.0 s 25.1-36.5 [facility] Alanine aminotransferase [En zymatic activity/volume] in Serum or PlasmaOrdered By: Celio Lobo on 12-13-2022 ALT [Catalytic activity/Vol] 14 U/L 7-52 [facility] Albumin [Mass/volume] in Ser um or Plasma by Bromocresol green (BCG) dye binding methoOrdered By: Celio Lobo on 12-13-2022 Albumin BCG dye [Mass/Vol] 3.8 g/dL 3.5-5.7 [facility] Alkaline phosphatase [Enzyma tic activity/volume] in Serum or PlasmaOrdered By: Celio Lobo on 12-13-2022 ALP [Catalytic activity/Vol] 51 U/L 34-104 [facility] Aspartate aminotransferase [ Enzymatic activity/volume] in Serum or PlasmaOrdered By: Celio Lobo on 12-13-2022 AST [Catalytic activity/Vol] 18 U/L 13-39 [facility] Basophils Auto (Bld) [#/Vol] Ordered By: Celio Lobo on 12-13-2022 Basophils (Bld) [#/Vol] 0.0 10*3/uL 0.0-0.2 [facility] Basophils/100 WBC Auto (Bld) Ordered By: Celio Lobo on 12-13-2022 Basophils/100 WBC (Bld) 1.0 % . [facility] Bilirubin Test strip Ql (U)O rdered By: Celio Lobo on 12-13-2022 Bilirubin Ql (U) Negative Negative [facility] Bilirubin.total [Mass/volume ] in Serum or PlasmaOrdered By: Celio Lobo 12-13-2022 Bilirubin [Mass/Vol] 0.3 mg/dL 0.3-1.0 [facility] Calcium [Mass/volume] in Ser um or PlasmaOrdered By: Celio Lobo 12-13-2022 Calcium [Mass/Vol] 8.5 mg/dL 8.6-10.3 [facility] Carbon dioxide, total [Moles /volume] in Serum or PlasmaOrdered By: Celio Lobo 12-13-2022 CO2 [Moles/Vol] 23.2 mmol/L 21.0-31.0 [facility] Chloride [Moles/volume] in S remi or PlasmaOrdered By: Celio Lobo 12-13-2022 Chloride [Moles/Vol] 106 mmol/L 98-107 [facility] Color Auto (U)Ordered By: Perez Lobo on 12-13-2022 Color (U) Yellow Yellow [facility] Creatinine [Mass/volume] in Serum or PlasmaOrdered By: Celio Lobo on 12-13-2022 Creatinine [Mass/Vol] 1.06 mg/dL 0.60-1.20 [facility] Eosinophils Auto (Bld) [#/Vo l]Ordered By: Celio Lobo on 12-13-2022 Eosinophils (Bld) [#/Vol] 0.1 10*3/uL 0.0-0.45 [facility] Eosinophils/100 WBC Auto (Bl d)Ordered By: Celio Lobo on 12-13-2022 Eosinophils/100 WBC (Bld) 1.2 % . [facility] Erythrocyte distribution wid th Auto (RBC) [Ratio]Ordered By: Celio Lobo on 12-13-2022 Erythrocyte distribution width (RBC) [Ratio] 14.6 % 11.9-15.3 [facility] Globulin Calc (S) [Mass/Vol] Ordered By: Celio Lobo on 12-13-2022 Globulin (S) [Mass/Vol] 2.8 g/dL [facility] Glucose Glucometer (BldC) [M ass/Vol]Ordered By: Celio Lobo on 12-13-2022 Glucose [Mass/Vol] 96 mg/dL [facility] Comment on above: Random Glucose Refer ence Range is dependent on time and content of last meal. Glucose of more than 200 mg/dL in a nonstressed, ambulatory subject supports the diagnosis of Diabetes Mellitus. Glucose [Mass/volume] in Ser um or PlasmaOrdered By: Celio Lobo on 12-13-2022 Glucose [Mass/Vol] 152 mg/dL 70-100 [facility] Comment on above: ADA recommended refe rence rangeRandom Glucose Reference Range is dependent on time and content of last meal. Glucose of more than 200 mg/dL in a nonstressed, ambulatory subject supports the diagnosis of Diabetes Mellitus. Hematocrit Auto (Bld) [Volum e fraction]Ordered By: Celio Lobo on 12-13-2022 Hematocrit (Bld) [Volume fraction] 37.8 % 34.0-46.4 [facility] Hemoglobin [Mass/volume] in BloodOrdered By: Celio Lobo on 12-13-2022 Hemoglobin (Bld) [Mass/Vol] 12.5 g/dL 11.8-15.4 [facility] Ketones Auto test strip (U) [Mass/Vol]Ordered By: Celio Lobo on 12-13-2022 Ketones (U) [Mass/Vol] Negative Negative Fi [facility] - CoagulationOrde red By: Celio Lobo on 12-13-2022 PT Coag (PPP) [Time] 23.1 s 9.0-12.9 [facility] Leukocytes [#/volume] correc darío for nucleated erythrocytes in Blood by Automated counOrdered By: Celio Lobo on 12-13-2022 WBC corrected for nucl RBC Auto (Bld) [#/Vol] 4.9 10*3/uL 3.8-11.6 [facility] Lymphocytes Auto (Bld) [#/Vo l]Ordered By: Celio Lobo on 12-13-2022 Lymphocytes (Bld) [#/Vol] 1.5 10*3/uL 1.00-4.8 [facility] Lymphocytes/100 WBC Auto (Bl d)Ordered By: Celio Lobo on 12-13-2022 Lymphocytes/100 WBC (Bld) 29.8 % . [facility] MCH Auto (RBC) [Entitic mass ]Ordered By: Celio Lobo on 12-13-2022 MCH (RBC) [Entitic mass] 31.8 pg 24.7-34.3 [facility] MCHC Auto (RBC) [Mass/Vol]Or dered By: Celio Lobo on 12-13-2022 MCHC (RBC) [Mass/Vol] 33.1 g/dL 32.0-35.0 [facility] MCV Auto (RBC) [Entitic vol] Ordered By: Celio Lobo on 12-13-2022 MCV (RBC) [Entitic vol] 96.0 fL 80-100 [facility] Magnesium [Mass/volume] in S remi or PlasmaOrdered By: Rosalina Shelton on 12-13-2022 Magnesium [Mass/Vol] 1.9 mg/dL 1.9-2.7 [facility] Magnesium [Mass/volume] in S remi or PlasmaOrdered By: Celio Lobo on 12-13-2022 Magnesium [Mass/Vol] 2.0 mg/dL 1.9-2.7 [facility] Monocyte distribution width [Entitic volume] in Blood by AutomatedOrdered By: Celio Lobo on 12-13-2022 Monocyte distribution width Auto (Bld) [Entitic vol] 18.43 % 0.00-20.00 [facility] Monocytes Auto (Bld) [#/Vol] Ordered By: Celio Lobo on 12-13-2022 Monocytes (Bld) [#/Vol] 0.5 10*3/uL 0.0-0.8 [facility] Monocytes/100 WBC Auto (Bld) Ordered By: Celio Lobo on 12-13-2022 Monocytes/100 WBC (Bld) 9.9 % . [facility] Natriuretic peptide B [Mass/ Vol]Ordered By: Celio Lobo on 12-13-2022 Natriuretic peptide B (Bld) [Mass/Vol] 105.0 pg/mL 5-100 [facility] Neutrophils Auto (Bld) [#/Vo l]Ordered By: Celio Lobo on 12-13-2022 Neutrophils (Bld) [#/Vol] 2.8 10*3/uL 1.8-7.7 [facility] Neutrophils/100 WBC Auto (Bl d)Ordered By: Celio Lobo on 12-13-2022 Neutrophils/100 WBC (Bld) 58.1 % . [facility] Nitrite Test strip Ql (U)Ord ered By: Celio Lobo on 12-13-2022 Nitrite Ql (U) Negative Negative [facility] No Panel InformationOrdered By: Celio Lobo on 12-13-2022 Bedside Glucose #2 Comment Cleaned meter [facility] Bedside Glucose Comment See comment [facility] Comment on above: Glu2: WILL NOTIFY DR /RN Estimated GFR (CKD-EPI) 56.163 mL/Min [facility] Creatinine Clearance (Chem 51.30 [facility] No Panel InformationOrdered By: Rosalina Shelton on 12-13-2022 D-Dimer Quantitative (PE/DVT) < 200 ng/mL 0-243 [facility] Comment on above: The reference range [...] RBC Auto Ql (Bld) 0.0 /100{WBC} 0-0.5 [facility] Platelet mean volume Auto (B ld) [Entitic vol]Ordered By: Celio Lobo on 12-13-2022 Platelet mean volume (Bld) [Entitic vol] 8.4 fL 6.3-10.7 [facility] Platelet poor plasma interna tional normalized ratio (INR) by coagulation assay (relatOrdered By: Celio Lobo on 12-13-2022 INR Coag (PPP) [Relative time] 2.0 {INR} [facility] Comment on above: INR Therapeutic Rang [...] 12-13-2022 Platelets (Bld) [#/Vol] 221 10*3/uL 150-450 [facility] Potassium [Moles/volume] in Serum or PlasmaOrdered By: Celio Lobo 12-13-2022 Potassium [Moles/Vol] 4.0 mmol/L 3.5-5.1 [facility] Protein Auto test strip (U) [Mass/Vol]Ordered By: Celio Lobo on 12-13-2022 Protein (U) [Mass/Vol] Negative Negative Fi [facility] Protein [Mass/volume] in Ser um or PlasmaOrdered By: Celio Lobo on 12-13-2022 Protein [Mass/Vol] 6.6 g/dL 6.4-8.9 [facility] RBC Auto (Bld) [#/Vol]Ordere d By: Celio Lobo on 12-13-2022 RBC (Bld) [#/Vol] 3.94 10*6/uL 3.60-5.[address] [facility] Serum or plasma albumin/glob ulin mass ratioOrdered By: Celio Lobo on 12-13-2022 Albumin/Globulin [Mass ratio] 1.4 {ratio} [facility] Serum or plasma anion gap de terminationOrdered By: Celio Lobo on 12-13-2022 Anion gap [Moles/Vol] 11.8 mmol/L 6.0-15.0 [facility] Sodium [Moles/volume] in Ser um or PlasmaOrdered By: Celio Lobo on 12-13-2022 Sodium [Moles/Vol] 137 mmol/L 136-145 [facility] Specific gravity Auto test s trip (U) [Rel density]Ordered By: Celio Lobo on 12-13-2022 Specific gravity (U) [Rel density] 1.006 1.001-1.03 0 [facility] Thyrotropin [Units/volume] i n Serum or PlasmaOrdered By: Rosalina Shelton on 12-13-2022 TSH Qn 4.39 m[IU]/L 0.45-5.33 [facility] Troponin I.cardiac [Mass/vol ume] in Serum or Plasma by Detection limit <= 0.01 ng/Ordered By: Celio Lobo on 12-13-2022 Troponin I.cardiac DL <= 0.01 ng/mL [Mass/Vol] 6.4 pg/mL 0.0-15.0 [facility] Urea nitrogen [Mass/volume] in Serum or PlasmaOrdered By: Celio Lobo 12-13-2022 Urea nitrogen [Mass/Vol] 15 mg/dL 7-25 [facility] Urine clarity by refractomet ry automatedOrdered By: Celio Lobo on 12-13-2022 Clarity Refractometry automated (U) Clear Clear [facility] Urine glucose measurement by automated test strip (mass/volume)Ordered By: Celio Lobo on 12-13-2022 Glucose Auto test strip (U) [Mass/Vol] Normal mg/dL Normal [facility] Urine hemoglobin detection b y automated test stripOrdered By: Celio Lobo on 12-13-2022 Hemoglobin Auto test strip Ql (U) Negative Negative [facility] Urine leukocyte esterase det ection by automated test stripOrdered By: Celio Lobo on 12-13-2022 Leukocyte esterase Auto test strip Ql (U) Negative Negative [facility] Urobilinogen Auto test strip (U) [Mass/Vol]Ordered By: Celio Lobo on 12-13-2022 Urobilinogen (U) [Mass/Vol] Normal mg/dL Normal [facility] WBC Auto (Bld) [#/Vol]Ordere d By: Celio Lobo on 12-13-2022 WBC (Bld) [#/Vol] 4.9 10*3/uL 3.8-11.6 [facility] pH Auto test strip (U)Ordere d By: Celio Lobo on 12-13-2022 pH (U) 8.0 [pH] 5.0-9.0 [facility] Prothrombin Time INRon 12-10 INR Coag (PPP) [Relative time] 2.5 {INR} [employer] Other Prothrombin Time INR [facility] [employer] Other Prothrombin Time INRon 11-12 INR Coag (PPP) [Relative time] 2.7 {INR} [facility] Other Prothrombin Time INR [facility] [employer] Other Prothrombin Time INRon 10-15 INR Coag (PPP) [Relative time] 2.7 {INR} [facility] Other Prothrombin Time INR [facility] [employer] Other Automated erythrocytes count in urine sediment (number/area)Ordered By: Edmond Branham on 09-23-2022 RBC Auto (Urine sed) [#/Area] 1-2 [HPF] 0-4 [facility] Automated leukocytes count i n urine sediment (number/area)Ordered By: Edmond Branham on 09-23-2022 WBC Auto (Urine sed) [#/Area] 5-9 [HPF] 0-4 [facility] Basophils Auto (Bld) [#/Vol] Ordered By: Edmond Branham on 09-23-2022 Basophils (Bld) [#/Vol] 0.1 10*3/uL 0.0-0.2 [facility] Basophils/100 WBC Auto (Bld) Ordered By: Edmond Branham on 09-23-2022 Basophils/100 WBC (Bld) 1.1 % . [facility] Bilirubin Test strip Ql (U)O rdered By: Edmond Branham on 09-23-2022 Bilirubin Ql (U) Negative Negative [facility] Body fluid albumin measureme nt (mass/volume)Ordered By: Edmond Branham on 09-23-2022 Albumin (Body fld) [Mass/Vol] 3.7 g/dL 3.2-5.5 [facility] Color Auto (U)Ordered By: Kailey Branham on 09-23-2022 Color (U) Dark yellow Yellow [facility] Creatinine and Glomerular fi ltration rate.predicted panel (S/P/Bld)Ordered By: Edmond Branham on 09-23-2022 Creatinine [Mass/Vol] 1.15 mg/dL 0.44-1.03 [facility] Eosinophils Auto (Bld) [#/Vo l]Ordered By: Edmond Branham on 09-23-2022 Eosinophils (Bld) [#/Vol] 0.1 10*3/uL 0.0-0.45 [facility] Eosinophils/100 WBC Auto (Bl d)Ordered By: Edmond Branham on 09-23-2022 Eosinophils/100 WBC (Bld) 1.7 % . [facility] Erythrocyte distribution wid th Auto (RBC) [Ratio]Ordered By: Edmond Branham on 09-23-2022 Erythrocyte distribution width (RBC) [Ratio] 15.0 % 11.9-15.3 [facility] Estimated glomerular filtrat ion rate (GFR) non- AmericanOrdered By: Edmond Branham on 09-23-2022 GFR/1.73 sq M.predicted among non-blacks MDRD (S/P/Bld) [Vol rate/Area] 47 mL/Min [facility] Globulin Calc (S) [Mass/Vol] Ordered By: Edmond Branham on 09-23-2022 Globulin (S) [Mass/Vol] 2.9 g/dL [facility] Glucose Glucometer (BldC) [M ass/Vol]Ordered By: Edmond Branham on 09-23-2022 Glucose [Mass/Vol] 108 mg/dL [facility] Comment on above: Random Glucose Refer ence Range is dependent on time and content of last meal. Glucose of more than 200 mg/dL in a nonstressed, ambulatory subject supports the diagnosis of Diabetes Mellitus. Hematocrit Auto (Bld) [Volum e fraction]Ordered By: Edmond Branham on 09-23-2022 Hematocrit (Bld) [Volume fraction] 39.1 % 34.0-46.4 [facility] Hemoglobin [Mass/volume] in BloodOrdered By: Edmond Branham on 09-23-2022 Hemoglobin (Bld) [Mass/Vol] 13.3 g/dL 11.8-15.4 [facility] Ketones Auto test strip (U) [Mass/Vol]Ordered By: Edmond Branham on 09-23-2022 Ketones (U) [Mass/Vol] Negative Negative Fi [facility] - UrinalysisOrder ed By: Edmond Branham on 09-23-2022 Hyaline casts LM Ql (Urine sed) 0-8 [LPF] 0-8 [facility] Leukocytes [#/volume] correc darío for nucleated erythrocytes in Blood by Automated counOrdered By: Edmond Branham on 09-23-2022 WBC corrected for nucl RBC Auto (Bld) [#/Vol] 5.2 10*3/uL 3.8-11.6 [facility] Lymphocytes Auto (Bld) [#/Vo l]Ordered By: Edmond Branham on 09-23-2022 Lymphocytes (Bld) [#/Vol] 1.6 10*3/uL 1.00-4.8 [facility] Lymphocytes/100 WBC Auto (Bl d)Ordered By: Edmond Branham on 09-23-2022 Lymphocytes/100 WBC (Bld) 31.1 % . [facility] MCH Auto (RBC) [Entitic mass ]Ordered By: Edmond Branham on 09-23-2022 MCH (RBC) [Entitic mass] 32.3 pg 24.7-34.3 [facility] MCHC Auto (RBC) [Mass/Vol]Or dered By: Edmond Branham on 09-23-2022 MCHC (RBC) [Mass/Vol] 34.0 g/dL 32.0-35.0 [facility] MCV Auto (RBC) [Entitic vol] Ordered By: Edmond Branham on 09-23-2022 MCV (RBC) [Entitic vol] 95.2 fL 80-100 [facility] Monocyte distribution width [Entitic volume] in Blood by AutomatedOrdered By: Edmond Branham on 09-23-2022 Monocyte distribution width Auto (Bld) [Entitic vol] 19.36 % 0.00-20.00 [facility] Monocytes Auto (Bld) [#/Vol] Ordered By: Edmond Branham on 09-23-2022 Monocytes (Bld) [#/Vol] 0.5 10*3/uL 0.0-0.8 [facility] Monocytes/100 WBC Auto (Bld) Ordered By: Edmond Branham on 09-23-2022 Monocytes/100 WBC (Bld) 10.2 % . [facility] Neutrophils Auto (Bld) [#/Vo l]Ordered By: Edmond Branham on 09-23-2022 Neutrophils (Bld) [#/Vol] 2.9 10*3/uL 1.8-7.7 [facility] Neutrophils/100 WBC Auto (Bl d)Ordered By: Edmond Branham on 09-23-2022 Neutrophils/100 WBC (Bld) 55.9 % . [facility] Nitrite Test strip Ql (U)Ord ered By: Edmond Branham on 09-23-2022 Nitrite Ql (U) Negative Negative [facility] No Panel InformationOrdered By: Edmond Branham on 09-23-2022 Estimated GFR () 56 mL/Min [facility] Comment on above: GFR estimated refere nce range: According to KDOQI guidelines, <60 ml/min/1.73m2 is sufficient to diagnose a patient with chronic kidney disease. Pharmacy Creatinine Clearance (Chem 46.55 [facility] Nucleated erythrocytes [Pres ence] in Blood by Automated countOrdered By: Edmond Branham on 09-23-2022 Nucleated RBC Auto Ql (Bld) 0.1 /100{WBC} 0-0.5 [facility] Platelet mean volume Auto (B ld) [Entitic vol]Ordered By: Edmond Branham on 09-23-2022 Platelet mean volume (Bld) [Entitic vol] 8.1 fL 6.3-10.7 [facility] Platelets Auto (Bld) [#/Vol] Ordered By: Edmond Branham on 09-23-2022 Platelets (Bld) [#/Vol] 183 10*3/uL 150-450 [facility] Protein Auto test strip (U) [Mass/Vol]Ordered By: Edmond Branham on 09-23-2022 Protein (U) [Mass/Vol] Negative Negative Fi [facility] Protein [Mass/volume] in Ser um or PlasmaOrdered By: Edmond Branham on 09-23-2022 Protein [Mass/Vol] 6.6 g/dL 6.1-7.9 [facility] RBC Auto (Bld) [#/Vol]Ordere d By: Edmond Branham on 09-23-2022 RBC (Bld) [#/Vol] 4.10 10*6/uL 3.60-5.[address] [facility] Serum or plasma alanine lugo otransferase measurement without P-5'-P (enzymatic activiOrdered By: Edmond Branham on 09-23-2022 ALT No additional P-5'-P [Catalytic activity/Vol] 15 U/L 10-60 [facility] Serum or plasma albumin/glob ulin mass ratioOrdered By: Edmond Branham on 09-23-2022 Albumin/Globulin [Mass ratio] 1.3 {ratio} [facility] Serum or plasma alkaline elijah sphatase measurement (enzymatic activity/volume)Ordered By: Edmond Branham on 09-23-2022 ALP [Catalytic activity/Vol] 57 U/L 32-92 [facility] Serum or plasma anion gap de terminationOrdered By: Edmond Branham on 09-23-2022 Anion gap [Moles/Vol] 15.9 mmol/L 6.0-15.0 Fi [facility] Serum or plasma aspartate am inotransferase measurement (enzymatic activity/volume)Ordered By: Edmond Branham on 09-23-2022 AST [Catalytic activity/Vol] 20 U/L 10-42 [facility] Serum or plasma calcium flakita urement (mass/volume)Ordered By: Edmond Branham on 09-23-2022 Calcium [Mass/Vol] 9.3 mg/dL 8.2-10.2 [facility] Serum or plasma chloride patrice surement (moles/volume)Ordered By: Edmond Branham on 09-23-2022 Chloride [Moles/Vol] 103 mmol/L 95-114 [facility] Serum or plasma glucose flakita urement (mass/volume)Ordered By: Edmond Branham on 09-23-2022 Glucose [Mass/Vol] 103 mg/dL 70-100 [facility] Comment on above: ADA recommended refe rence rangeRandom Glucose Reference Range is dependent on time and content of last meal. Glucose of more than 200 mg/dL in a nonstressed, ambulatory subject supports the diagnosis of Diabetes Mellitus. Serum or plasma potassium me asurement (moles/volume)Ordered By: Edmond Branham on 09-23-2022 Potassium [Moles/Vol] 3.5 mmol/L 3.5-5.1 [facility] Serum or plasma sodium measu rement (moles/volume)Ordered By: Edmond Branham on 09-23-2022 Sodium [Moles/Vol] 137 mmol/L 136-146 [facility] Serum or plasma total biliru bin measurement (mass/volume)Ordered By: Edmond Branham on 09-23-2022 Bilirubin [Mass/Vol] 0.4 mg/dL 0.3-1.2 [facility] Serum or plasma total carbon dioxide measurement (moles/volume)Ordered By: Edmond Branham on 09-23-2022 CO2 [Moles/Vol] 21.6 mmol/L 22.0-30.0 [facility] Serum or plasma urea nitroge n measurement (mass/volume)Ordered By: Edmond Branham on 09-23-2022 Urea nitrogen [Mass/Vol] 13 mg/dL 9-23 [facility] Specific gravity Auto test s trip (U) [Rel density]Ordered By: Edmond Branham on 09-23-2022 Specific gravity (U) [Rel density] 1.012 1.001-1.03 0 [facility] Squamous epithelial cells de tection in urine sediment by light microscopyOrdered By: Edmond Branham on 09-23-2022 Epithelial cells.squamous LM Ql (Urine sed) 3-4 [HPF] 0-2 [facility] Troponin I.cardiac [Mass/vol ume] in Serum or Plasma by High sensitivity methodOrdered By: Edmond Branham on 09-23-2022 Troponin I.cardiac High sensitivity method [Mass/Vol] 6 pg/mL 0-15 [facility] Urine bacteria detection by automated methodOrdered By: Edmond Branham on 09-23-2022 Bacteria Auto Ql (U) None seen None Seen [facility] Urine clarity by refractomet ry automatedOrdered By: Edmond Branham on 09-23-2022 Clarity Refractometry automated (U) Clear Clear [facility] Urine culture routineOrdered By: Edmond Branham on 09-23-2022 Bacteria identified Cx Nom (U) 2 Days [facility] Urine glucose measurement by automated test strip (mass/volume)Ordered By: Edmond Branham on 09-23-2022 Glucose Auto test strip (U) [Mass/Vol] Normal mg/dL Normal [facility] Urine hemoglobin detection b y automated test stripOrdered By: Edmond Branham on 09-23-2022 Hemoglobin Auto test strip Ql (U) Negative Negative [facility] Urine leukocyte esterase det ection by automated test stripOrdered By: Edmond Branham on 09-23-2022 Leukocyte esterase Auto test strip Ql (U) 1+ Negative [facility] Urobilinogen Auto test strip (U) [Mass/Vol]Ordered By: Edmond Branham on 09-23-2022 Urobilinogen (U) [Mass/Vol] Normal mg/dL Normal [facility] WBC Auto (Bld) [#/Vol]Ordere d By: Edmond Branham on 09-23-2022 WBC (Bld) [#/Vol] 5.2 10*3/uL 3.8-11.6 [facility] pH Auto test strip (U)Ordere d By: Edmond Branham on 09-23-2022 pH (U) 8.0 [pH] 5.0-9.0 [facility] Prothrombin Time INRon 09-17 INR Coag (PPP) [Relative time] 3.2 {INR} [facility] Other Prothrombin Time INR [facility] [employer] Other Prothrombin Time INRon 08-20 INR Coag (PPP) [Relative time] 2.5 {INR} [facility] Other Prothrombin Time INR [facility] [employer] Other Prothrombin Time INRon 07-24 INR Coag (PPP) [Relative time] 3.5 {INR} [facility] Other Prothrombin Time INR [facility] [employer] Other Prothrombin Time INRon 06-26 INR Coag (PPP) [Relative time] 1.7 {INR} [facility] Other Prothrombin Time INR [facility] Other Prothrombin Time INRon 06-05 INR Coag (PPP) [Relative time] 2.6 {INR} [facility] Other Prothrombin Time INR [facility] Other Laboratory - CoagulationOrde red By: Marlon Molina on 05-29-2022 PT Coag (PPP) [Time] 12.3 s 9.0-12.9 [facility] Platelet poor plasma interna tional normalized ratio (INR) by coagulation assay (relatOrdered By: Marlon Molina on 05-29-2022 INR Coag (PPP) [Relative time] 1.1 {INR} [facility] Comment on above: INR Therapeutic Rang [...] INR Coag (PPP) [Relative time] 2.1 {INR} [facility] [employer] Other Prothrombin Time INR [facility] [employer] Other Basophils Auto (Bld) [#/Vol] Ordered By: Marlon Molina on 05-20-2022 Basophils (Bld) [#/Vol] 0.0 10*3/uL 0.0-0.2 [facility] Basophils/100 WBC Auto (Bld) Ordered By: Marlon Molina on 05-20-2022 Basophils/100 WBC (Bld) 0.9 % . [facility] Blood hemoglobin measurement (mass/volume)Ordered By: Marlon Molina on 05-20-2022 Hemoglobin (Bld) [Mass/Vol] 13.4 g/dL 11.8-15.4 [facility] Blood leukocytes automated c ount (number/volume)Ordered By: Marlon Molina on 05-20-2022 WBC (Bld) [#/Vol] 5.2 10*3/uL 4.5-11.0 [facility] Body fluid albumin measureme nt (mass/volume)Ordered By: Marlon Molina on 05-20-2022 Albumin (Body fld) [Mass/Vol] 3.6 g/dL 3.2-5.5 [facility] Creatinine and Glomerular fi ltration rate.predicted panel (S/P/Bld)Ordered By: Marlon Molina on 05-20-2022 Creatinine [Mass/Vol] 1.04 mg/dL 0.44-1.03 [facility] Eosinophils Auto (Bld) [#/Vo l]Ordered By: Marlon Molina on 05-20-2022 Eosinophils (Bld) [#/Vol] 0.1 10*3/uL 0.0-0.45 [facility] Eosinophils/100 WBC Auto (Bl d)Ordered By: Marlon Molina on 05-20-2022 Eosinophils/100 WBC (Bld) 1.1 % . [facility] Erythrocyte distribution wid th Auto (RBC) [Ratio]Ordered By: Marlon Molina on 05-20-2022 Erythrocyte distribution width (RBC) [Ratio] 14.6 % 11.9-15.3 [facility] Estimated glomerular filtrat ion rate (GFR) non- AmericanOrdered By: Marlon Molina on 05-20-2022 GFR/1.73 sq M.predicted among non-blacks MDRD (S/P/Bld) [Vol rate/Area] 52 mL/Min [facility] Globulin Calc (S) [Mass/Vol] Ordered By: Marlon Molina on 05-20-2022 Globulin (S) [Mass/Vol] 2.8 g/dL [facility] Hematocrit Auto (Bld) [Volum e fraction]Ordered By: Marlon Molina on 05-20-2022 Hematocrit (Bld) [Volume fraction] 39.7 % 34.0-46.4 [facility] Laboratory - Hematology and Cell countsOrdered By: Marlon Molina on 05-20-2022 Nucleated RBC/100 WBC (Bld) [Ratio] 0.0 % 0-0.5 [facility] Lymphocytes Auto (Bld) [#/Vo l]Ordered By: Marlon Molina on 05-20-2022 Lymphocytes (Bld) [#/Vol] 1.2 10*3/uL 1.00-4.8 [facility] Lymphocytes/100 WBC Auto (Bl d)Ordered By: Marlon Molina on 05-20-2022 Lymphocytes/100 WBC (Bld) 22.5 % . [facility] MCH Auto (RBC) [Entitic mass ]Ordered By: Marlon Molina on 05-20-2022 MCH (RBC) [Entitic mass] 32.5 pg 24.7-34.3 [facility] MCHC Auto (RBC) [Mass/Vol]Or dered By: Marlon Molina on 05-20-2022 MCHC (RBC) [Mass/Vol] 33.7 g/dL 32.0-35.0 [facility] MCV Auto (RBC) [Entitic vol] Ordered By: Marlon Molina on 05-20-2022 MCV (RBC) [Entitic vol] 96.3 fL 80-100 [facility] Monocytes Auto (Bld) [#/Vol] Ordered By: Marlon Molina on 05-20-2022 Monocytes (Bld) [#/Vol] 0.4 10*3/uL 0.0-0.8 [facility] Monocytes/100 WBC Auto (Bld) Ordered By: Marlon Mikea on 05-20-2022 Monocytes/100 WBC (Bld) 7.1 % . [facility] Neutrophils Auto (Bld) [#/Vo l]Ordered By: Marlon Mikea on 05-20-2022 Neutrophils (Bld) [#/Vol] 3.6 10*3/uL 1.8-7.7 [facility] Neutrophils/100 WBC Auto (Bl d)Ordered By: Marlon Molina on 05-20-2022 Neutrophils/100 WBC (Bld) 68.4 % . [facility] No Panel InformationOrdered By: Marlon Molina on 05-20-2022 Estimated GFR () > 60 mL/Min [facility] Comment on above: GFR estimated refere nce range: According to KDOQI guidelines, <60 ml/min/1.73m2 is sufficient to diagnose a patient with chronic kidney disease. Pharmacy Creatinine Clearance (Chem N/A [facility] Platelet mean volume Auto (B ld) [Entitic vol]Ordered By: Marlon Molina on 05-20-2022 Platelet mean volume (Bld) [Entitic vol] 8.8 fL 6.3-10.7 [facility] Platelets Auto (Bld) [#/Vol] Ordered By: Marlon Molina on 05-20-2022 Platelets (Bld) [#/Vol] 224 10*3/uL 150-450 [facility] Protein [Mass/volume] in Ser um or PlasmaOrdered By: Marlon Molina on 05-20-2022 Protein [Mass/Vol] 6.4 g/dL 6.1-7.9 [facility] RBC Auto (Bld) [#/Vol]Ordere d By: Marlon Mikea on 05-20-2022 RBC (Bld) [#/Vol] 4.13 10*6/uL 3.60-5.[address] [facility] Serum or plasma alanine lugo otransferase measurement without P-5'-P (enzymatic activiOrdered By: Marlon Molina on 05-20-2022 ALT No additional P-5'-P [Catalytic activity/Vol] 18 U/L 10-60 [facility] Serum or plasma albumin/glob ulin mass ratioOrdered By: Marlon Molina on 05-20-2022 Albumin/Globulin [Mass ratio] 1.3 {ratio} [facility] Serum or plasma alkaline elijah sphatase measurement (enzymatic activity/volume)Ordered By: aMrlon Molina on 05-20-2022 ALP [Catalytic activity/Vol] 51 U/L 32-92 [facility] Serum or plasma anion gap de terminationOrdered By: Marlon Molina on 05-20-2022 Anion gap [Moles/Vol] 16.4 mmol/L 6.0-15.0 [facility] Serum or plasma aspartate am inotransferase measurement (enzymatic activity/volume)Ordered By: Marlon Molina on 05-20-2022 AST [Catalytic activity/Vol] 21 U/L 10-42 [facility] Serum or plasma calcium flakita urement (mass/volume)Ordered By: Marlon Molina on 05-20-2022 Calcium [Mass/Vol] 8.8 mg/dL 8.2-10.2 [facility] Serum or plasma chloride patrice surement (moles/volume)Ordered By: Marlon Molina on 05-20-2022 Chloride [Moles/Vol] 99 mmol/L 95-114 [facility] Serum or plasma glucose flakita urement (mass/volume)Ordered By: Marlon Molina on 05-20-2022 Glucose [Mass/Vol] 191 mg/dL 70-100 [facility] Comment on above: ADA recommended refe rence rangeRandom Glucose Reference Range is dependent on time and content of last meal. Glucose of more than 200 mg/dL in a nonstressed, ambulatory subject supports the diagnosis of Diabetes Mellitus. Serum or plasma potassium me asurement (moles/volume)Ordered By: Marlon Molina on 05-20-2022 Potassium [Moles/Vol] 4.1 mmol/L 3.5-5.1 [facility] Serum or plasma sodium measu rement (moles/volume)Ordered By: Marlon Molina on 05-20-2022 Sodium [Moles/Vol] 136 mmol/L 136-146 [facility] Serum or plasma total biliru bin measurement (mass/volume)Ordered By: Marlon Molina on 05-20-2022 Bilirubin [Mass/Vol] 0.3 mg/dL 0.3-1.2 [facility] Serum or plasma total carbon dioxide measurement (moles/volume)Ordered By: Marlon Molina on 05-20-2022 CO2 [Moles/Vol] 24.7 mmol/L 22.0-30.0 [facility] Serum or plasma urea nitroge n measurement (mass/volume)Ordered By: Marlon Molina on 05-20-2022 Urea nitrogen [Mass/Vol] 15 mg/dL 9- [facility] Prothrombin Time INRon 05-06 INR Coag (PPP) [Relative time] 1.5 {INR} [facility] Other Prothrombin Time INR [place] [facility] Other Prothrombin Time INRon 04-08 INR Coag (PPP) [Relative time] 1.8 {INR} [facility] Other Prothrombin Time INR [facility] [employer] Other Prothrombin Time INRon 03-13 INR Coag (PPP) [Relative time] 2.3 {INR} [facility] Other Prothrombin Time INR [facility] [employer] Other Prothrombin Time INRon 02-27 INR Coag (PPP) [Relative time] 2.3 {INR} [facility] Other Prothrombin Time INR [employer] Other COVID-19 Positive/NegativeOr dered By: Tang Mcclellan on 02-26-2022 SARS-CoV-2 (COVID-19) N gene ZHAO+probe Ql (Resp) Negative Negative [facility] Comment on above: Testing for SARS-CoV -2 by RT-PCRThis test was developed and its performance characteristics determined by [employer] ([employer]) and validated at the [facility]. This test has not been FDA [...] INR Coag (PPP) [Relative time] 2.0 {INR} [facility] Other Prothrombin Time INR [facility] [employer] Other Prothrombin Time INRon 01-06 INR Coag (PPP) [Relative time] 1.4 {INR} [facility] Other Prothrombin Time INR [facility] [employer] Other Prothrombin Time INRon 12-23 INR Coag (PPP) [Relative time] 1.7 {INR} [facility] Other Prothrombin Time INR [facility] [employer] Other Prothrombin Time INRon 12-11 INR Coag (PPP) [Relative time] 2.9 {INR} [facility] Other Prothrombin Time INR [facility] [employer] Other Prothrombin Time INRon 11-27 INR Coag (PPP) [Relative time] 1.7 {INR} [facility] Other Prothrombin Time INR [facility] [employer] Other Prothrombin Time INRon 11-12 INR Coag (PPP) [Relative time] 1.9 {INR} [facility] [employer] Other Prothrombin Time INR [facility] [employer] Other Prothrombin Time INRon 10-31 INR Coag (PPP) [Relative time] 2.1 {INR} [facility] [employer] Other Prothrombin Time INR [facility] [employer] Other Prothrombin Time INRon 10-14 INR Coag (PPP) [Relative time] 2.5 {INR} [facility] [employer] Other Prothrombin Time INR [facility] [employer] Other Prothrombin Time INRon 09-30 INR Coag (PPP) [Relative time] 2.6 {INR} [facility] [employer] Other Prothrombin Time INR [facility] [employer] Other Prothrombin Time INRon 09-12 INR Coag (PPP) [Relative time] 1.8 {INR} [facility] [employer] Other Prothrombin Time INR [facility] [employer] Other Prothrombin Time INRon 08-29 INR Coag (PPP) [Relative time] 2.1 {INR} [facility] [employer] Other Prothrombin Time INR [facility] [employer] Other Prothrombin Time INRon 08-15 Prothrombin Time INR 1.5 [facility] [employer] Other Prothrombin Time INRon 08-01 INR Coag (PPP) [Relative time] 2.5 {INR} [place] [employer] Other Prothrombin Time INR [facility] [employer] Other Prothrombin Time INRon 07-15 INR Coag (PPP) [Relative time] 2.6 {INR} [facility] [employer] Other Prothrombin Time INR [facility] [employer] Other Prothrombin Time INRon 07-03 INR Coag (PPP) [Relative time] 2.4 {INR} [facility] [employer] Other Prothrombin Time INR [facility] [employer] Other Prothrombin Time INRon 06-19 INR Coag (PPP) [Relative time] 1.8 {INR} [facility] [employer] Other Prothrombin Time INR [facility] [employer] Other Prothrombin Time INRon 05-28 INR Coag (PPP) [Relative time] 2.1 {INR} [facility] [employer] Other Prothrombin Time INR [facility] [employer] Other Prothrombin Time INRon 05-15 INR Coag (PPP) [Relative time] 1.6 {INR} [facility] [employer] Other Prothrombin Time INR [facility] [employer] Other Vital Signs Date Time Vital Sign Value Performing Clinician Facility 02-13-2025 08:40-0400 Body height 154.9 cm Venita Marques [employer] Work Phone: [facility] 02-13-2025 08:40-0400 Body mass index (BMI) [Ratio] 34.31 kg/m2 Venita Marques [employer] Work Phone: [facility] 02-13-2025 08:40-0400 Body weight 82.37 kg Venita Marques [employer] Work Phone: [facility] 02-13-2025 08:40-0400 Diastolic blood pressure 70 mm[Hg] Venita Marques [employer] Work Phone: [facility] 02-13-2025 08:40-0400 Heart rate 74 /min Venita Marques [employer] Work Phone: [facility] 02-13-2025 08:40-0400 Respiratory rate 16 /min Venita Marques [employer] Work Phone: [facility] 02-13-2025 08:40-0400 SaO2% (BldA) [Mass fraction] 98 % Venita Marques [employer] Work Phone: [facility] 02-13-2025 08:40-0400 Systolic blood pressure 112 mm[Hg] Venita Marques [employer] Work Phone: [facility] 01-09-2025 08:47-0400 Body height 154.9 cm Kristopher Herzog DO Work Phone: [facility] 01-09-2025 08:47-0400 Body mass index (BMI) [Ratio] 33.82 kg/m2 Kristophervince Herzog DO Work Phone: [facility] 01-09-2025 08:47-0400 Body weight 81.19 kg Kristophervince Herzog DO Work Phone: [facility] 01-09-2025 08:47-0400 Diastolic blood pressure 72 mm[Hg] Kristopher Herzog DO Work Phone: [facility] 01-09-2025 08:47-0400 Heart rate 68 /min Kristopher Herzog DO Work Phone: [facility] 01-09-2025 08:47-0400 SaO2% (BldA) [Mass fraction] 97 % Kristopher Herzog DO Work Phone: [facility] 01-09-2025 08:47-0400 Systolic blood pressure 112 mm[Hg] Kristophervince Herzog DO Work Phone: [facility] 12-16-2024 09:20-0400 Body height 154.9 cm Radha Verduzco DO Work Phone: [facility] 12-16-2024 09:20-0400 Body mass index (BMI) [Ratio] 32.5 kg/m2 Radha Ityenytz DO Work Phone: [facility] 12-16-2024 09:20-0400 Body weight 78.02 kg Radha Verduzco DO Work Phone: [facility] 12-14-2024 09:01-0400 Body height 154.9 cm Kristopher Herzog DO Work Phone: [facility] 12-14-2024 09:01-0400 Body mass index (BMI) [Ratio] 32.61 kg/m2 Kristopher Herzog DO Work Phone: [facility] 12-14-2024 09:01-0400 Body weight 78.29 kg Kristopher Herzog DO Work Phone: [facility] 12-14-2024 09:01-0400 Heart rate 72 /min Kristopher Herzog DO Work Phone: [facility] 12-14-2024 09:01-0400 SaO2% (BldA) [Mass fraction] 99 % Kristopher Herzog DO Work Phone: [facility] 10-25-2024 14:36-0500 Diastolic blood pressure 58 mm[Hg] Venita Didion [employer] Work Phone: [facility] 10-25-2024 14:36-0500 Heart rate 74 /min Venita Didion [employer] Work Phone: [facility] 10-25-2024 14:36-0500 Respiratory rate 16 /min Venita Didion [employer] Work Phone: [facility] 10-25-2024 14:36-0500 SaO2% (BldA) [Mass fraction] 98 % Venita Didion [employer] Work Phone: [facility] 10-25-2024 14:36-0500 Systolic blood pressure 120 mm[Hg] Venita Didion [employer] Work Phone: [facility] 10-07-2024 09:08-0500 Body height 154.94 cm [facility] 10-07-2024 09:08-0500 Body mass index (BMI) [Ratio] 33.6 kg/m2 [facility] 10-07-2024 09:08-0500 Body weight 80.73 kg [facility] 10-07-2024 09:08-0500 Diastolic blood pressure 75 mm[Hg] [facility] 10-07-2024 09:08-0500 Heart rate 73 /min [facility] 10-07-2024 09:08-0500 Systolic blood pressure 127 mm[Hg] [facility] 10-03-2024 09:14-0500 Body height 156.2 cm Kristopher Herzog DO Work Phone: [facility] 10-03-2024 09:14-0500 Body mass index (BMI) [Ratio] 33.09 kg/m2 Kristopher Herzog DO Work Phone: [facility] 10-03-2024 09:14-0500 Body weight 80.74 kg Kristopher Herzog DO Work Phone: [facility] 10-03-2024 09:14-0500 Diastolic blood pressure 58 mm[Hg] Kristopher Herzog DO Work Phone: [facility] 10-03-2024 09:14-0500 Heart rate 74 /min Kristopher Herzog DO Work Phone: [facility] 10-03-2024 09:14-0500 SaO2% (BldA) [Mass fraction] 99 % Kristopher Herzog DO Work Phone: [facility] 10-03-2024 09:14-0500 Systolic blood pressure 120 mm[Hg] Kristopher Herzog DO Work Phone: [facility] 06-29-2024 10:39-0500 Body height 154.94 cm [facility] 06-29-2024 10:39-0500 Body mass index (BMI) [Ratio] 33.8 kg/m2 [facility] 06-29-2024 10:39-0500 Body weight 81.19 kg [facility] 06-22-2024 08:50-0400 Body height 156.2 cm Adam Rodriguez [employer] Work Phone: [facility] 06-22-2024 08:50-0400 Body mass index (BMI) [Ratio] 33.09 kg/m2 Adam Hedrickos [employer] Work Phone: [facility] 06-22-2024 08:50-0400 Body weight 80.74 kg Adam Rodriguez [employer] Work Phone: [facility] 06-22-2024 08:50-0400 Diastolic blood pressure 74 mm[Hg] Adam Rodriguez [employer] Work Phone: [facility] 06-22-2024 08:50-0400 Heart rate 79 /min Adam Hedrickos [employer] Work Phone: [facility] 06-22-2024 08:50-0400 SaO2% (BldA) [Mass fraction] 99 % Adam Rodriguez [employer] Work Phone: [facility] 06-22-2024 08:50-0400 Systolic blood pressure 120 mm[Hg] Adam Rodriguez [employer] Work Phone: [facility] 04-29-2024 08:53-0400 Body height 156.2 cm Radha Itzkowitz DO Work Phone: [facility] 04-29-2024 08:53-0400 Body mass index (BMI) [Ratio] 33.46 kg/m2 Radha Itzkowitz DO Work Phone: [facility] 04-29-2024 08:53-0400 Body weight 81.65 kg Radha Itzkowitz DO Work Phone: [facility] 04-29-2024 08:53-0400 Diastolic blood pressure 74 mm[Hg] Radha Itzkowitz DO Work Phone: [facility] 04-29-2024 08:53-0400 Systolic blood pressure 122 mm[Hg] Radha Itzkowitz DO Work Phone: [facility] 02-09-2024 11:03-0400 Diastolic blood pressure 60 mm[Hg] DO Kristopher Herzog Work Phone: [facility] 02-09-2024 11:03-0400 Heart rate 76 /min DO Kristopher Chuy Work Phone: [facility] 02-09-2024 11:03-0400 Respiratory rate 16 /min DO Kristopher Chuy Work Phone: [facility] 02-09-2024 11:03-0400 SaO2% (BldA) [Mass fraction] 99 % DO Kristopher Chuy Work Phone: [facility] 02-09-2024 11:03-0400 Systolic blood pressure 128 mm[Hg] DO Kristopher Hcuy Work Phone: [facility] 02-09-2024 09:32-0400 Body height 154.94 cm DO Kristopher Chuy Work Phone: [facility] 02-09-2024 09:32-0400 Body temperature 99 [degF] DO Kristopher Chuy Work Phone: [facility] 02-09-2024 09:32-0400 Body weight 78.92 kg DO Kristopher Chuy Work Phone: [facility] 12-28-2023 11:17-0400 Diastolic blood pressure 77 mm[Hg] DO Kristopher Chuy Work Phone: [facility] 12-28-2023 11:17-0400 Heart rate 77 /min DO Kristopher Chuy Work Phone: [facility] 12-28-2023 11:17-0400 Respiratory rate 16 /min DO Kristopher Chuy Work Phone: [facility] 12-28-2023 11:17-0400 SaO2% (BldA) [Mass fraction] 99 % DO Kristopher Chuy Work Phone: [facility] 12-28-2023 11:17-0400 Systolic blood pressure 113 mm[Hg] DO Kristopher Chuy Work Phone: [facility] 12-28-2023 08:33-0400 Body height 154.94 cm DO Kristopher Chuy Work Phone: [facility] 12-28-2023 08:33-0400 Body weight 79.83 kg DO Kristopher Chuy Work Phone: [facility] 12-07-2023 10:06-0400 Body height 156.21 cm DO Kristopher Chuy Work Phone: [facility] 12-07-2023 10:06-0400 Body mass index (BMI) [Ratio] 32.7 kg/m2 DO Kristopher Chuy Work Phone: [facility] 12-07-2023 10:06-0400 Body weight 79.83 kg DO Kristopher Chuy Work Phone: [facility] 12-07-2023 10:06-0400 Diastolic blood pressure 74 mm[Hg] DO Kristopher Chuy Work Phone: [facility] 12-07-2023 10:06-0400 Heart rate 79 /min DO Kristopher Chuy Work Phone: [facility] 12-07-2023 10:06-0400 Systolic blood pressure 142 mm[Hg] DO Kristopher Chuy Work Phone: [facility] 12-15-2022 17:21-0400 Body temperature 98.1 [degF] DO Kristopher Chuy Work Phone: [facility] 12-15-2022 17:21-0400 Diastolic blood pressure 77 mm[Hg] DO Kristopher Chuy Work Phone: [facility] 12-15-2022 17:21-0400 Heart rate 83 /min DO Kristopher Chuy Work Phone: [facility] 12-15-2022 17:21-0400 Respiratory rate 16 /min DO Kristopher Chuy Work Phone: [facility] 12-15-2022 17:21-0400 SaO2% (BldA) [Mass fraction] 99 % DO Kristopher Chuy Work Phone: [facility] 12-15-2022 17:21-0400 Systolic blood pressure 158 mm[Hg] DO Kristopher Chuy Work Phone: [facility] 12-15-2022 06:00-0400 Body weight 85.3 kg DO Kristopher Chuy Work Phone: [facility] 12-13-2022 20:01-0400 Diastolic blood pressure 81 mm[Hg] DO Kristopher Chuy Work Phone: [facility] 12-13-2022 20:01-0400 Heart rate 75 /min DO Kristopher Chuy Work Phone: [facility] 12-13-2022 20:01-0400 Respiratory rate 18 /min DO Kristopher Chuy Work Phone: [facility] 12-13-2022 20:01-0400 SaO2% (BldA) [Mass fraction] 99 % DO Kristopher Chuy Work Phone: [facility] 12-13-2022 20:01-0400 Systolic blood pressure 167 mm[Hg] DO Kristopher Chuy Work Phone: [facility] 12-13-2022 13:48-0400 Body height 160.02 cm DO Kristopher Chuy Work Phone: [facility] 12-13-2022 13:48-0400 Body temperature 98.6 [degF] DO Kristopher Chuy Work Phone: [facility] 12-13-2022 13:48-0400 Body weight 88.3 kg DO Kristopher Chuy Work Phone: [facility] 09-23-2022 19:59-0500 Diastolic blood pressure 72 mm[Hg] DO Kristopher Chuy Work Phone: [facility] 09-23-2022 19:59-0500 Heart rate 77 /min DO Kristopher Herzog Work Phone: [facility] 09-23-2022 19:59-0500 Respiratory rate 18 /min DO Kristopher Herzog Work Phone: [facility] 09-23-2022 19:59-0500 SaO2% (BldA) [Mass fraction] 97 % DO Kristopher Herzog Work Phone: [facility] 09-23-2022 19:59-0500 Systolic blood pressure 168 mm[Hg] DO Kristopher Herzog Work Phone: [facility] 09-23-2022 18:17-0500 Body height 160.02 cm DO Kristopher Herzog Work Phone: [facility] 09-23-2022 18:17-0500 Body temperature 98.7 [degF] DO Kristopher Herzog Work Phone: [facility] 09-23-2022 18:17-0500 Body weight 85.7 kg DO Kristopher Herzog Work Phone: [facility] 07-16-2022 09:56-0500 Body temperature 98.8 [degF] DO Kristopher Herzog Work Phone: [facility] 07-16-2022 09:56-0500 Diastolic blood pressure 70 mm[Hg] DO Kristopher Herzog Work Phone: [facility] 07-16-2022 09:56-0500 Heart rate 79 /min DO Kristophervince Herzog Work Phone: [facility] 07-16-2022 09:56-0500 Respiratory rate 17 /min DO Kristophervince Herzog Work Phone: [facility] 07-16-2022 09:56-0500 SaO2% (BldA) [Mass fraction] 98 % DO Kristopher Herzog Work Phone: [facility] 07-16-2022 09:56-0500 Systolic blood pressure 150 mm[Hg] DO Kristopher Herzog Work Phone: [facility] 07-16-2022 08:29-0500 Body height 160.02 cm DO Kristopher Herzog Work Phone: [facility] 07-16-2022 08:29-0500 Body weight 83 kg DO Kristopher Herzog Work Phone: [facility] 06-04-2022 09:13-0400 Body temperature 97.9 [degF] DO Kristopher Herzog Work Phone: [facility] 06-04-2022 09:13-0400 Diastolic blood pressure 64 mm[Hg] DO Kristopher Herzog Work Phone: [facility] 06-04-2022 09:13-0400 Heart rate 93 /min DO Kristopher Herzog Work Phone: [facility] 06-04-2022 09:13-0400 Respiratory rate 20 /min DO Kristopher Herzog Work Phone: [facility] 06-04-2022 09:13-0400 SaO2% (BldA) [Mass fraction] 97 % DO Kristopher Herzog Work Phone: [facility] 06-04-2022 09:13-0400 Systolic blood pressure 134 mm[Hg] DO Kristopher Herzog Work Phone: [facility] 05-29-2022 08:18-0400 Body temperature 98.1 [degF] DO Kristopher Herzog Work Phone: [facility] 05-29-2022 08:18-0400 Diastolic blood pressure 76 mm[Hg] DO Kristopher Belloman Work Phone: [facility] 05-29-2022 08:18-0400 Heart rate 77 /min DO Kristopher Herzog Work Phone: [facility] 05-29-2022 08:18-0400 Respiratory rate 20 /min DO Kristopher Herzog Work Phone: [facility] 05-29-2022 08:18-0400 SaO2% (BldA) [Mass fraction] 98 % DO Kristopher Herzog Work Phone: [facility] 05-29-2022 08:18-0400 Systolic blood pressure 146 mm[Hg] DO Kristopher Herzog Work Phone: [facility] 02-11-2022 08:39-0400 Body weight 0 kg DO Kristopher Herzog Work Phone: [facility] 01-28-2022 16:15-0400 Body height 157.48 cm Tang Henrietta Other [facility] Other 01-28-2022 16:15-0400 Body mass index (BMI) [Ratio] 31.64 kg/m2 Tang Mcclellan Other [facility] Other 01-28-2022 16:15-0400 Body weight 78.47 kg Tang Mcclellan Other [facility] Other Encounters Encounter Date Encounter Type Care Provider Facility Start: 04-05-2025 End: 04-05-2025 Bamboo flowsheet Marlon Branham DPM Work Phone: [facility] Start: 04-05-2025 End: 04-05-2025 Bamboo flowslee ann Branham DPM Work Phone: [facility] Start: 04-05-2025 End: 04-05-2025 Postop follow up visit related to original px Marlon Branham DPM Work Phone: [facility] Comment on above: Surgery follow-up ex amination (Primary Dx); Hallux malleus, right; Ulcer of great toe, right, limited to breakdown of skin (HCC); Right foot pain Start: 04-05-2025 End: 04-05-2025 ambulatory MARLON BRANHAM Not Available Start: 03-22-2025 End: 03-22-2025 Bamboo flowsheet [facility] Start: 03-22-2025 End: 03-22-2025 Bamboo flowsheet Marlon Branham DPM Work Phone: [facility] Start: 03-22-2025 End: 03-22-2025 Postop follow up visit related to original px Mar[facility] Branham DPM [facility] Comment on above: Surgery follow-up ex amination (Primary Dx); Hallux malleus, right; Right foot pain; Ulcer of great toe, right, limited to breakdown of skin (HCC) Start: 03-22-2025 End: 03-22-2025 ambulatory MARLON BRANHAM Not Available Start: 03-17-2025 End: 03-17-2025 ambulatory Kristopher Herzog DO Work Phone: [facility] Work Phone: Start: 03-17-2025 End: 03-17-2025 Patient encounter procedure Kiersten Qureshi [facility] Work Phone: Start: 03-14-2025 End: 03-14-2025 Bamboo flowsheet Marlon Branham DPM Work Phone: [facility] Start: 03-14-2025 End: 03-14-2025 Bamboo flowsheet Marlon Branham DPM Work Phone: [facility] Start: 03-14-2025 End: 03-14-2025 ambulatory MARLON BRANHAM Not Available Start: 03-14-2025 End: 03-14-2025 Postop follow up visit related to original px Marlon Branham DPM Work Phone: [facility] Comment on above: Surgery follow-up ex amination (Primary Dx); Hallux malleus, right; Right foot pain Start: 03-13-2025 End: 03-13-2025 ambulatory Kristopher Herzog DO Work Phone: [facility] Work Phone: Start: 03-13-2025 End: 03-13-2025 Patient encounter procedure Tita Roberts [facility] Work Phone: Start: 03-09-2025 End: 03-09-2025 Bamboo flowsheet Caro HEWITT Work Phone: [facility] Start: 03-09-2025 End: 03-09-2025 Bamboo flowsheet Caro Hugo PA Work Phone: [facility] Start: 03-09-2025 End: 03-09-2025 ambulatory Kristopher Herzog DO Work Phone: [facility] Work Phone: Start: 03-09-2025 End: 03-09-2025 Patient encounter procedure Tita Roberts [facility] Work Phone: Start: 03-09-2025 End: 03-09-2025 Office outpatient new 30 minutes Caro Hugo PA Work Phone: [facility] Comment on above: Acute pain of left k nee (Primary Dx); Primary osteoarthritis of left knee Start: 03-09-2025 End: 03-09-2025 ambulatory CARO HUGO Not Available Start: 03-07-2025 End: 03-07-2025 Bamboo flowsheet Marlon Branham DPM Work Phone: [facility] Start: 03-07-2025 End: 03-07-2025 Kamario flowsheet Marlon Branham DPM Work Phone: [facility] Start: 03-07-2025 End: 03-07-2025 Postop follow up visit related to original px Marlon Branham DPM Work Phone: [facility] Comment on above: Surgery follow-up ex amination (Primary Dx); Hallux malleus, right; Right foot pain; Ulcer of great toe, right, limited to breakdown of skin (HCC) Start: 03-07-2025 End: 03-07-2025 ambulatory MARLON BRANHAM Not Available Start: 02-22-2025 End: 02-22-2025 Telephone encounter Venita Marques [employer] Work Phone: [facility] Start: 02-22-2025 End: 02-22-2025 ambulatory Kristopher Herzog DO Work Phone: [facility] Work Phone: Start: 02-22-2025 End: 02-22-2025 Patient encounter procedure Tita Roberts [facility] Work Phone: Start: 02-16-2025 End: 02-16-2025 Bamboo flowsheet Marlon Branham DPM Work Phone: [facility] Start: 02-16-2025 End: 02-16-2025 Bamboo flowsheet Marlon Branham DPM Work Phone: [facility] Start: 02-16-2025 End: 02-16-2025 ambulatory MARLON BRANHAM Not Available Start: 02-16-2025 End: 02-16-2025 Office outpatient visit 15 minutes Marlon Branham DPM Work Phone: [facility] Comment on above: Hallux malleus, righ t (Primary Dx); Right foot pain Start: 02-13-2025 End: 02-13-2025 Office outpatient visit 15 minutes Venita Marques [employer] Work Phone: [facility] Comment on above: Acute pain of left k nee (Primary Dx); Primary osteoarthritis of left knee; Hallux malleus of right foot; Callus; Preoperative clearance Start: 02-13-2025 End: 02-13-2025 Preoperative state Venita Ye Jerald [employer] Work Phone: [facility] Start: 02-13-2025 End: 02-13-2025 ambulatory VENITA Ye JERALD Not Available Start: 02-09-2025 End: 02-09-2025 Patient encounter procedure Kiersten Qureshi [facility] Work Phone: Start: 02-01-2025 End: 02-01-2025 Bamboo flowsheet Marlon Branham DPM Work Phone: [facility] Start: 02-01-2025 End: 02-01-2025 Bamboo flowsheet Marlon Branham DPM Work Phone: [facility] Start: 02-01-2025 End: 02-01-2025 ambulatory Kristopher Herzog DO Work Phone: [facility] Work Phone: Start: 02-01-2025 End: 02-01-2025 Patient encounter procedure Kristopher Herzog DO Work Phone: [facility] Work Phone: Start: 02-01-2025 End: 02-01-2025 ambulatory MARLON BRANHAM Not Available Start: 02-01-2025 End: 02-01-2025 Office outpatient visit 15 minutes Marlon Branham DPM Work Phone: [facility] Comment on above: Onychomycosis (Prima ry Dx); Corns and callosities; Hallux malleus, right; Type II diabetes mellitus with neurological manifestations (CMS/HCC); Pain in both feet Start: 01-11-2025 End: 01-11-2025 Clinisync Result Encounter Kristopher Herzog DO Work Phone: [facility] External Department Unsolicited Start: 01-11-2025 End: 01-11-2025 Clinisync Result Encounter Kristopher Herzog DO Work Phone: [facility] External Department Unsolicited Start: 01-09-2025 End: 01-09-2025 Bamboo flowsheet Kristopher Herzog DO Work Phone: [facility] Start: 01-09-2025 End: 01-09-2025 Bamboo flowsheet Kristopher Herzog DO Work Phone: [facility] Start: 01-09-2025 End: 01-09-2025 Office outpatient visit 40 minutes Kristopher Herzog DO Work Phone: [facility] Comment on above: Medicare annual well ness visit, subsequent (Primary Dx); Advance care planning; Type 2 diabetes mellitus with stage 3a chronic kidney disease, with long-term current use of insulin (HCC) (CMS/HCC); Diabetic peripheral neuropathy associated with type 2 diabetes mellitus (CMS/HCC); detention current use of insulin (CMS/HCC); Mixed hyperlipidemia (CMS/HCC); Steatosis of liver; Primary hypertension (CMS/HCC); Chronic deep vein thrombosis (DVT) of femoral vein of left lower extremity (CMS/HCC); Spinal stenosis of lumbosacral region; detention current use of 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 Start: 01-09-2025 End: 01-09-2025 Patient encounter procedure Kristopher Herzog DO Work Phone: [facility] Work Phone: Start: 01-09-2025 End: 01-09-2025 ambulatory KRISTOPHER HERZOG Not Available Start: 01-05-2025 End: 01-05-2025 Clinisync Result Encounter Kristopher Herzog DO Work Phone: [facility] External Department Unsolicited Start: 01-05-2025 End: 01-05-2025 Clinisync Result Encounter Kristopher Herzog DO Work Phone: [facility] External Department Unsolicited Start: 01-04-2025 End: 01-04-2025 ambulatory Kristopher Herzog DO Work Phone: [facility] Work Phone: Start: 01-04-2025 End: 01-04-2025 Patient encounter procedure Kristopher Herzog DO Work Phone: [facility] Work Phone: Start: 12-16-2024 End: 12-16-2024 ambulatory RADHA VERDUZCO Not Available Start: 12-16-2024 End: 12-16-2024 Office outpatient visit 25 minutes Radha Verduzco DO Work Phone: [facility] Comment on above: Axillary lymphadenop athy (Primary Dx); H/O diagnostic mammography Start: 12-14-2024 End: 12-14-2024 Bamboo flowsheet Kristopher Herzog DO Work Phone: [facility] Start: 12-14-2024 End: 12-14-2024 Bamboo flowsheet Kristopher Herzog DO Work Phone: [facility] Start: 12-14-2024 End: 12-14-2024 Office outpatient visit 40 minutes Kristopher Herzog DO Work Phone: [facility] Comment on above: Diabetic peripheral neuropathy associated with type 2 diabetes mellitus (CMS/HCC) (Primary Dx); detention current use of insulin (CMS/HCC); Mixed hyperlipidemia (CMS/HCC); Hypercoagulable state (CMS/HCC); 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; Steatosis of liver; Primary hypertension (CMS/HCC); Venous insufficiency; Primary osteoarthritis of left knee Start: 12-14-2024 End: 12-14-2024 ambulatory KRISTOPHER HERZOG Not Available Start: 12-07-2024 End: 12-07-2024 ambulatory Radhacristobal Angulogideon Facility:[facility] Start: 12-07-2024 End: 12-07-2024 Patient encounter procedure Kristopher Herzog DO Work Phone: [facility] Comment on above: Leg numbness (Primar y Dx) Start: 11-30-2024 End: 11-30-2024 ambulatory [facility] Work Phone: Start: 11-30-2024 End: 11-30-2024 Patient encounter procedure [facility] Work Phone: Start: 11-23-2024 End: 11-23-2024 ambulatory VENITA L DIDION Not Available Start: 11-15-2024 End: 11-15-2024 ambulatory VENITA L DIDION Not Available Start: 11-02-2024 End: 11-02-2024 ambulatory [facility] Work Phone: Start: 11-02-2024 End: 11-02-2024 Patient encounter procedure [facility] Work Phone: Start: 10-31-2024 End: 10-31-2024 ambulatory MARLON Thurman VINAY Not Available Start: 10-27-2024 End: 10-27-2024 ambulatory VENITA L DIDION Not Available Start: 10-25-2024 End: 10-25-2024 ambulatory VENITA L DIDION Not Available Start: 10-25-2024 End: 10-25-2024 Office outpatient visit 25 minutes Venita L Didion [employer] Work Phone: [facility] Comment on above: Nonintractable heada shelby, unspecified chronicity pattern, unspecified headache type (Primary Dx); Neck pain; Paresthesia of left arm; Numbness of fingers Start: 10-23-2024 Non-patient / Non-visit [facility] Work Phone: Start: 10-07-2024 End: 10-07-2024 ambulatory [facility] Work Phone: Start: 10-07-2024 End: 10-07-2024 Patient encounter procedure [facility] Work Phone: Start: 10-05-2024 End: 10-05-2024 ambulatory [facility] Work Phone: Start: 10-05-2024 End: 10-05-2024 Patient encounter procedure [facility] Work Phone: Start: 10-03-2024 End: 10-03-2024 Office outpatient visit 25 minutes Kristopher Herzog DO Work Phone: [facility] Comment on above: Primary osteoarthrit is of right knee (Primary Dx); Hypercoagulable state ([facility]); Diabetic peripheral neuropathy associated with type 2 diabetes mellitus ([facility]); Primary hypertension ([facility]); Ulcerative colitis without complications, unspecified location ([facility]); 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 ([facility]); detention current use of 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; Sacral ulcer, limited to breakdown of skin ([facility]) Start: 10-03-2024 End: 10-03-2024 ambulatory KRISTOPHER HERZOG Not Available Start: 09-09-2024 End: 09-09-2024 ambulatory [facility] Work Phone: Start: 09-09-2024 End: 09-09-2024 Patient encounter procedure [facility] Work Phone: Start: 08-03-2024 End: 08-03-2024 Patient encounter procedure [facility] Work Phone: Start: 08-01-2024 End: 08-01-2024 Bamboo flowsheet Marlon Branham DPM Work Phone: [facility] Start: 08-01-2024 End: 08-01-2024 Bamboo flowsheet Marlon Branham DPM Work Phone: [facility] Start: 08-01-2024 End: 08-01-2024 Office outpatient visit 10 minutes Marlon Branham DPM Work Phone: [facility] Comment on above: 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 ([facility]) (Primary Dx); Onychomycosis; Corns and callosities; Hallux malleus, left; Pain in both feet Start: 08-01-2024 End: 08-01-2024 ambulatory MARLON BRANHAM Not Available Start: 07-04-2024 End: 07-04-2024 ambulatory [facility] Work Phone: Start: 07-04-2024 End: 07-04-2024 Patient encounter procedure [facility] Work Phone: Start: 06-29-2024 End: 06-29-2024 ambulatory [facility] Work Phone: Start: 06-29-2024 End: 06-29-2024 Patient encounter procedure [facility] Work Phone: Start: 06-22-2024 End: 06-22-2024 Office outpatient visit 25 minutes Adam Rodriguez [employer] Work Phone: [facility] Comment on above: Primary hypertension (CMS/HCC) [...]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; detention current use of insulin (CMS/HCC); OAB (overactive bladder); Class 1 obesity; Spinal stenosis of lumbosacral region; Ulcerative colitis without complications, unspecified location (CMS/HCC); Need for immunization against influenza; Atrophic vaginitis; Bilateral leg edema Start: 06-22-2024 End: 06-22-2024 ambulatory ADAM RODRIGUEZ Not Available Start: 06-17-2024 End: 06-18-2024 Orders Only Adam Rodriguez [employer] Work Phone: [facility] External Department Unsolicited Start: 06-06-2024 End: 06-06-2024 ambulatory [facility] Work Phone: Start: 06-06-2024 End: 06-06-2024 Patient encounter procedure [facility] Work Phone: Start: 05-09-2024 End: 05-09-2024 ambulatory DO Kristopher Herzog Work Phone: [facility] Work Phone: Start: 05-09-2024 End: 05-09-2024 Patient encounter procedure DO Kristopher Herzog Work Phone: [facility] Work Phone: Start: 04-29-2024 End: 04-29-2024 Office outpatient visit 25 minutes Radha Olman Luba DO Work Phone: [facility] Comment on above: Axillary lymphadenop athy (Primary Dx) Start: 04-29-2024 End: 04-29-2024 ambulatory RADHA H ITZKOCHRISTOPHER Not Available Start: 04-27-2024 End: 04-27-2024 Bamboo flowsheet Marlon Branham DPM Work Phone: [facility] Start: 04-27-2024 End: 04-27-2024 Bamboo flowsheet Marlon Branham DPM Work Phone: [facility] Start: 04-27-2024 End: 04-27-2024 ambulatory MARLON BRANHAM Not Available Start: 04-27-2024 End: 04-27-2024 Patient encounter procedure Marlon Branham DPM Work Phone: [facility] Comment on above: 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) (Primary Dx); Onychomycosis; Corns and callosities; Pain in both feet Start: 04-14-2024 End: 04-14-2024 ambulatory DO Kristopher Herzog Work Phone: [facility] Work Phone: Start: 04-14-2024 End: 04-14-2024 Patient encounter procedure DO Kristopher Herzog Work Phone: [facility] Work Phone: Start: 03-14-2024 End: 03-14-2024 ambulatory DO Kristopher Herzog Work Phone: [facility] Work Phone: Start: 03-14-2024 End: 03-14-2024 Patient encounter procedure DO Kristopher Herzog Work Phone: [facility] Work Phone: Start: 02-17-2024 End: 02-17-2024 ambulatory DO Kristopher Herzog Work Phone: [facility] Work Phone: Start: 02-17-2024 End: 02-17-2024 Patient encounter procedure DO Kristopher Herzog Work Phone: [facility] Work Phone: Start: 02-09-2024 End: 02-09-2024 Emergency department patient visit DO Kristophervince Herzog Work Phone: [facility] Work Phone: Start: 01-20-2024 End: 01-20-2024 ambulatory DO Kristopher Herzog Work Phone: [facility] Work Phone: Start: 01-20-2024 End: 01-20-2024 Patient encounter procedure DO Kristopher Herzog Work Phone: [facility] Work Phone: Start: 01-05-2024 End: 01-05-2024 Patient encounter procedure DO Kristophervince Herzog Work Phone: [facility] Work Phone: Start: 12-28-2023 Non-patient / Non-visit DO Preet Herzog Work Phone: [facility] Work Phone: Start: 12-28-2023 End: 12-28-2023 Admission to same day surgery center DO Kristopher Herzog Work Phone: [facility] Work Phone: Start: 12-28-2023 End: 12-28-2023 ambulatory DO Kristopher Herzog Work Phone: [facility] Work Phone: Start: 12-14-2023 End: 12-14-2023 ambulatory DO Kristopher Herzog Work Phone: [facility] Work Phone: Start: 12-14-2023 End: 12-14-2023 Patient encounter procedure DO Kristopher Herzog Work Phone: [facility] Work Phone: Start: 12-07-2023 End: 12-07-2023 ambulatory DO Kristopher Herzog Work Phone: [facility] Work Phone: Start: 12-07-2023 End: 12-07-2023 Patient encounter procedure DO Kristopher Herzog Work Phone: [facility] Work Phone: Start: 12-07-2023 End: 12-07-2023 ambulatory DO Kristopher Herzog Work Phone: [facility] Work Phone: Start: 12-07-2023 End: 12-07-2023 Patient encounter procedure DO Kristopher Herzog Work Phone: [facility] G[facility] Work Phone: Start: 11-09-2023 End: 11-09-2023 ambulatory DO Kristophervince Herzog Work Phone: [facility] Work Phone: Start: 11-09-2023 End: 11-09-2023 Patient encounter procedure DO Kristophervince Herzog Work Phone: [facility] Work Phone: Start: 10-05-2023 ([facility] R A/c) [facility] Re peat A/C Lauren Vance [facility] Start: 10-05-2023 End: 10-05-2023 ambulatory DO Kristopher Herzog Work Phone: [facility] Other Start: 10-05-2023 End: 10-05-2023 Discharged Recurring DO Kristopher Herzog Work Phone: [facility] Work Phone: Start: 09-29-2023 End: 09-29-2023 ambulatory Lauren Vance Other [facility] Other Start: 09-29-2023 Telephone encounter Lauren Vance [facility] Start: 09-24-2023 Telephone encounter Kimberly Berger LPN [facility] Start: 09-07-2023 ([facility] [facility] Re peat A/C [facility] Start: 09-07-2023 End: 09-07-2023 ambulatory Rivers Sanner Other [facility] Other Start: 08-11-2023 ([facility] R A/c) [facility] Start: 08-11-2023 End: 08-11-2023 ambulatory Rivers Sanner Other [facility] Other Start: 07-14-2023 ([facility] R A/c) [facility] Re peat A/C [facility] Start: 07-14-2023 End: 07-14-2023 ambulatory Rivers Sanner Other [facility] Other Start: 06-15-2023 ([facility] R A/c) [facility] Re peat A/C [facility] Start: 06-15-2023 End: 06-15-2023 ambulatory Tita Roberts Other [employer] Other Start: 06-03-2023 End: 06-03-2023 ambulatory DO Kristopher Herzog Work Phone: [facility] Work Phone: Start: 06-03-2023 End: 06-03-2023 Patient encounter procedure DO Kristopher Herzog Work Phone: [facility]-Ultrasound Cntr for Breast Car Start: 05-25-2023 Registered Recurring DO Manuela Belloman Work Phone: [facility]-Center for Coordinated Care Work Phone: Start: 04-30-2023 ([facility] R A/c) [facility] Re peat A/C Lauren Fitt [facility] Start: 04-30-2023 End: 04-30-2023 ambulatory Lauren Fitt Other [facility] Other Start: 04-08-2023 ([facility] R A/c) [facility] Re peat A/C Kiersten Titus [facility] Start: 04-08-2023 End: 04-08-2023 ambulatory Kiersten Dennison Other [facility] Other Start: 03-23-2023 ([facility] R A/c) [facility] Re peat A/C Kiersten Titus [facility] Start: 03-23-2023 End: 03-23-2023 ambulatory Kiersten Titus Other [facility] Other Start: 03-11-2023 ([facility] R A/c) [facility] Re peat A/C Kiersten Dennison [facility] Start: 03-11-2023 End: 03-11-2023 ambulatory Kiersten Titus Other [facility] Other Start: 02-23-2023 ([facility] R A/c) [facility] Re peat A/C Kiersten Qureshi [facility] Start: 02-23-2023 End: 02-23-2023 ambulatory Kiersten Qureshi Other [employer] Other Start: 12-17-2022 End: 12-17-2022 ambulatory DO Kristopher Herzog Work Phone: [facility] Work Phone: Start: 12-17-2022 End: 12-17-2022 Departed Referred DO Kristopher Herzog Work Phone: [facility]-Lab [facility] Work Phone: Start: 12-15-2022 ambulatory Facility:9 0 Start: 12-13-2022 End: 12-15-2022 Evaluation and management of inpatient DO Kristopher Herzog Work Phone: [facility] [place] [facility] Work Phone: Start: 12-13-2022 observation encounter DO Wilfrido Herzog Work Phone: [facility] Work Phone: Start: 12-10-2022 ([facility] R A/c) [facility] Re peat A/C Kiersten Qureshi [facility] Start: 12-10-2022 End: 12-10-2022 ambulatory Kiersten Qureshi Other [facility] Other Start: 12-10-2022 Registered Recurring DO Manuela Herzog Work Phone: [facility] for [facility] Work Phone: Start: 12-01-2022 End: 12-01-2022 ambulatory DO Kristopher Herzog Work Phone: [facility] Work Phone: Start: 12-01-2022 End: 12-01-2022 Patient encounter procedure DO Kristopher Herzog Work Phone: [facility]-Center for Breast Care Work Phone: Start: 11-12-2022 ([facility] R A/c) [facility] Re peat A/C Kiersten Titus [facility] Start: 11-12-2022 End: 11-12-2022 ambulatory Kiersten Dennison Other [employer] Other Start: 11-12-2022 Registered Recurring DO Manuela Herzog Work Phone: [facility] for [facility] Care Work Phone: Start: 10-15-2022 ([facility] R A/c) [facility] Re peat A/C Kiersten Dennison [facility] Start: 10-15-2022 End: 10-15-2022 ambulatory Kiersten Titus Other [facility] Other Start: 09-29-2022 End: 09-29-2022 ambulatory Lauren Vance Other [employer] Other Start: 09-29-2022 Telephone encounter Lauren Vance [facility] Start: 09-23-2022 End: 09-23-2022 Emergency department patient visit DO Kristopher Herzog Work Phone: [facility]-Emergency Room Work Phone: Start: 09-17-2022 ([facility] R A/c) [facility] Re peat A/C Kiersten Titus [facility] Start: 09-17-2022 End: 09-17-2022 ambulatory Kiersten Dennison Other [facility] Other Start: 09-17-2022 Registered Recurring DO Manuela Herzog Work Phone: [facility] for [facility] Care Work Phone: Start: 09-01-2022 End: 09-01-2022 ambulatory Lauren Rajiv Other [employer] Other Start: 09-01-2022 Telephone encounter Lauren Vance [facility] Start: 08-20-2022 ([facility] R A/c) [facility] Re peat A/C Kiersten Titus [facility] Start: 08-20-2022 End: 08-20-2022 ambulatory Kiersten Titus Other [facility] Other Start: 07-24-2022 ([facility] R A/c) [facility] Re peat A/C Olu Rene [facility] Start: 07-24-2022 End: 07-24-2022 ambulatory Olu Rene Other [facility] Other Start: 07-16-2022 End: 07-16-2022 Emergency department patient visit DO Kristopher Herzog Work Phone: [facility]-Emergency Room Start: 06-26-2022 ([facility] R A/c) [facility] Re peat A/C Lauren Reggiealexander [facility] Start: 06-26-2022 End: 06-26-2022 ambulatory Lauren Rajiv Other [employer] Other Start: 06-26-2022 Registered Recurring DO Manuela Herzog Work Phone: [facility]-Center for Coordinated Care Start: 06-23-2022 End: 06-23-2022 ambulatory DO Kristopher Herzog Work Phone: [facility] Work Phone: Start: 06-23-2022 End: 06-23-2022 Patient encounter procedure DO Kristopher Herzog Work Phone: [facility]-Ultrasound [facility] [place] Start: 06-09-2022 End: 06-09-2022 Patient encounter procedure DO Kristopher Herzog Work Phone: [facility]-Ultrasound Cntr for Breast Car Start: 06-05-2022 ([facility] R A/c) [facility] Re peat A/C Lauren Fitt [facility] Start: 06-05-2022 End: 06-05-2022 ambulatory Tang Mcclellan Other [facility] Other Start: 06-05-2022 Telephone encounter Tang Santana [facility] Gastroenter[facility] Start: 06-05-2022 Registered Recurring DO Manuela Herzog Work Phone: [facility] Start: 06-04-2022 End: 06-04-2022 Discharged Recurring DO Kristopher Herzog Work Phone: [facility]-Infusion Therapy - O/P Start: 05-29-2022 End: 05-29-2022 ambulatory DO Kristopher Herzog Work Phone: [facility] Work Phone: Start: 05-29-2022 End: 05-29-2022 Patient encounter procedure DO Kristopher Herzog Work Phone: [facility]-Lab [facility] [place] Start: 05-29-2022 Registered Recurring DO Manuela Herzog Work Phone: [facility]-Infusion Therapy - O/P Start: 05-22-2022 Registered Recurring DO Manuela Herzog Work Phone: [facility] Start: 05-22-2022 ([facility] R A/c) [facility] Re peat A/C Lauren Fitt [facility] Start: 05-22-2022 End: 05-22-2022 ambulatory Lauren Fitt Other [facility] Other Start: 05-20-2022 End: 05-20-2022 Patient encounter procedure DO Kristopher Herzog Work Phone: [facility]-Lab [facility] [place] Start: 05-06-2022 ([facility] R A/c) [facility] Re peat A/C Lauren Fitt [facility] Start: 05-06-2022 End: 05-06-2022 ambulatory Lauren Fitt Other [employer] Other Start: 04-08-2022 ([facility] R A/c) [facility] Re peat A/C Lauren Fitt [facility] Start: 04-08-2022 End: 04-08-2022 ambulatory Lauren Fitt Other [employer] Other Start: 03-13-2022 ([facility] R A/c) [facility] Re peat A/C Lauren Fitt [facility] Start: 03-13-2022 End: 03-13-2022 ambulatory Lauren Fitt Other [employer] Other Start: 02-28-2022 End: 02-28-2022 Patient encounter procedure DO Kristopher Herzog Work Phone: [facility]-Digestive Health Start: 02-27-2022 ([facility] R A/c) [facility] Re peat A/C Lauren Fitt [facility] Start: 02-27-2022 End: 02-27-2022 ambulatory Lauren Fitt Other [employer] Other Start: 02-26-2022 End: 02-26-2022 Patient encounter procedure DO Kristopher Herzog Work Phone: [facility]-Pre-Surgical Testing Start: 02-17-2022 ([facility] R A/c) [facility] Re peat A/C Lauren Fitt [facility] Start: 02-17-2022 End: 02-17-2022 ambulatory Lauren Fitt Other [facility] Other Start: 02-11-2022 End: 02-11-2022 ambulatory Antonio Thompson Other [facility] Other Start: 02-11-2022 Telephone encounter Antonio Thompson [facility] Gastroenter[facility] Start: 01-28-2022 End: 01-28-2022 ambulatory Tang Mcclellan Other [employer] Other Start: 01-28-2022 Office outpatient vi sit 15 minutes Tang Mcclellan [facility] Start: 01-21-2022 ([facility] R A/c) [facility] Re peat A/C Lauren Fitt [facility] Start: 01-21-2022 End: 01-21-2022 ambulatory Lauren Fitt Other [facility] Other Start: 01-09-2022 End: 01-09-2022 ambulatory Tang Mcclellan Other [facility] Other Start: 01-09-2022 Telephone encounter Tang Santana [facility] Start: 01-06-2022 ([facility] R A/c) [facility] Re peat A/C Lauren Fitt [facility] Start: 01-06-2022 End: 01-06-2022 ambulatory Lauren Fitt Other [facility] Other Start: 12-23-2021 ([facility] R A/c) [facility] Re peat A/C Lauren Fitt [facility] Start: 12-23-2021 End: 12-23-2021 ambulatory Lauren Fitt Other [facility] Other Start: 12-11-2021 ([facility] R A/c) [facility] Re peat A/C Lauren Fitt [facility] Start: 12-11-2021 End: 12-11-2021 ambulatory Lauren Fitt Other [facility] Other Start: 11-28-2021 End: 11-28-2021 ambulatory Tang Gastonormack Other [employer] Other Start: 11-28-2021 Telephone encounter Tang Santana ck [facility] Gastroenter[facility] Start: 11-27-2021 ([facility] R A/c) [facility] Re peat A/C Lauren Fitt [facility] Start: 11-27-2021 End: 11-27-2021 ambulatory Lauren Fitt Other [employer] Other Start: 11-25-2021 End: 11-25-2021 ambulatory Lauren Fitt Other [employer] Other Start: 11-25-2021 Telephone encounter Lauren Fitt [facility] Start: 11-14-2021 End: 11-14-2021 ambulatory Lauren Fitt Other [employer] Other Start: 11-14-2021 Telephone encounter Lauren Fitt [facility] Start: 11-12-2021 ([facility] R A/c) [facility] Re peat A/C Lauren Fitt [facility] Start: 11-12-2021 End: 11-12-2021 ambulatory Lauren Fitt Other [facility] Other Start: 10-31-2021 ([facility] R A/c) [facility] Re peat A/C Lauren Fitt [facility] Start: 10-31-2021 End: 10-31-2021 ambulatory Lauren Fitt Other [facility] Other Start: 10-14-2021 ([facility] R A/c) [facility] Re peat A/C Lauren Fitt [facility] Start: 10-14-2021 End: 10-14-2021 ambulatory Lauren Fitt Other [employer] Other Start: 10-08-2021 End: 10-08-2021 ambulatory Lauren Fitt Other [employer] Other Start: 10-08-2021 Telephone encounter Lauren Fitt [facility] Start: 09-30-2021 ([facility] R A/c) [facility] Re peat A/C Lauren Fitt [facility] Start: 09-30-2021 End: 09-30-2021 ambulatory Lauren Fitt Other [employer] Other Start: 09-12-2021 ([facility] R A/c) [facility] Re peat A/C Lauren Fitt [facility] Start: 09-12-2021 End: 09-12-2021 ambulatory Lauren Fitt Other [employer] Other Start: 08-29-2021 ([facility] R A/c) [facility] Re peat A/C Lauren Fitt [facility] Start: 08-29-2021 End: 08-29-2021 ambulatory Lauren Fitt Other [employer] Other Start: 08-15-2021 ([facility] R A/c) [facility] Re peat A/C Lauren Fitt [facility] Start: 08-15-2021 End: 08-15-2021 ambulatory Lauren Fitt Other [employer] Other Start: 08-01-2021 ([facility] R A/c) [facility] Re peat A/C Lauren Fitt [facility] Start: 08-01-2021 End: 08-01-2021 ambulatory Lauren Fitt Other [employer] Other Start: 07-15-2021 ([facility] R A/c) [facility] Re peat A/C Lauren Fitt [facility] Start: 07-15-2021 End: 07-15-2021 ambulatory Lauren Fitt Other [employer] Other Start: 07-03-2021 ([facility] R A/c) [facility] Re peat A/C Lauren Fitt [facility] Start: 07-03-2021 End: 07-03-2021 ambulatory Lauren Fitt Other [facility] Other Start: 07-03-2021 Telephone encounter Antonio Peña G[facility] Start: 06-19-2021 ([facility] R A/c) [facility] Re peat A/C Lauren Fitt [facility] Start: 05-28-2021 ([facility] R A/c) [facility] Re peat A/C Lauren Fitt [facility] Start: 05-21-2021 Telephone encounter Lauren Reggiet Tr[facility] Start: 05-15-2021 ([facility] R A/c) [facility] Re peat A/C Lauren Fitt [facility] Start: 05-15-2021 Telephone encounter Lauren Fitt [facility] Procedures Date Procedure Procedure Detail Performing Clinician Start: 03-07-2025 Radex foot complete minimum 3 views Marlon Branham DPM Work Phone: Start: 02-16-2025 Radex foot complete minimum 3 views Marlon Branham DPM Work Phone: Start: 02-13-2025 Radiologic examinati on knee 3 views Venita Marques [employer] Work Phone: Start: 01-11-2025 ALL CBC WITH AUTO DIFF Kristopher Herzog DO Work Phone: Start: 01-05-2025 ALL BASIC METABOLIC PANEL Kristopher Herzog DO Work Phone: Start: 12-07-2024 End: 12-07-2024 Mammography Kristopher Herzog DO Work Phone: Start: 06-17-2024 Comprehensive metabo lic panel Adam Ye Sarah [employer] Work Phone: Start: 06-17-2024 Lipid panel Adam Ye Sarah [employer] Work Phone: Start: 06-17-2024 SPECIMEN STATUS REPORT Adam Hedrickos [employer] Work Phone: Start: 04-29-2024 Mammography Radha It whitleyelfegogideon DO Work Phone: Start: 02-09-2024 Urine culture [...] 12-13-2022 Plain chest X-ray DO Pernell Herzog Work Phone: Start: 12-01-2022 End: 12-01-2022 [...] X-ray of right femur DO Kristopher Herzog APJeT Phone: Start: 06-23-2022 Duplex scan of lower limb veins DO Kristopher Herzog Work Phone: Start: 06-09-2022 Ultrasonography of l eft breast DO Kristopher Herzog APJeT Phone: Start: 02-28-2022 Esophageal manometry DO Kristopher Herzog Work Phone: Start: 07-05-2016 Colonoscopy Kimberly Guzmán lou ARNOLD Plan of Treatment Date Care Activity Detail Author Start: 12-27-2033 Screening for malign ant neoplasm of colon [facility] Start: 07-05-2026 Screening for malign ant neoplasm of colon [facility] Start: 01-09-2026 Medicare Annual Well ness (AWV) Medicare Annual Wellness (AWV) [facility] Start: 12-21-2025 End: 12-21-2025 Patient encounter procedure [facility] Start: 12-07-2025 Screening for malign ant neoplasm of breast Mammogram [facility] Start: 06-17-2025 Urine screening for protein Diabetes: Urine Protein Screening [facility] Start: 06-07-2025 End: 06-07-2025 Patient encounter procedure [facility] Start: 06-02-2025 Glaucoma screening Diabetes: R etinopathy Screening [facility] Start: 05-10-2025 End: 05-10-2025 Patient encounter procedure [facility] Start: 04-29-2025 Screening for malign ant neoplasm of breast Mammogram [facility] Start: 04-24-2025 Influenza vaccination Influenza Vacc ine (#1) [facility] Start: 04-20-2025 End: 04-20-2025 Patient encounter procedure 04/20/2025 8:15 AM EDT Office Visit [facility] [place] [facility] [address] [place] [id number] Marlon Branham, DPM [address] [place] [address] [facility] Start: 04-19-2025 End: 04-19-2025 Patient encounter procedure [facility] Start: 04-11-2025 Hemoglobin A1c measurement Diabetes: Hemoglobin A1C [facility] Start: 04-05-2025 End: 04-05-2025 Patient encounter procedure [facility] [place] Comment on above: Arrived Start: 03-22-2025 End: 03-22-2025 Patient encounter procedure [facility] Comment on above: Arrived Start: 03-20-2025 End: 03-20-2025 Patient encounter procedure 03/20/2025 4:00 PM EDT Office Visit [facility] [address] [place] [phone] Brandy Salmeron DO [address] [place] [address] [facility] Start: 03-14-2025 End: 03-14-2025 Patient encounter procedure 03/14/2025 9:00 AM EDT Office Visit [facility] [address] [place] [id number] Marlon Branham, DPM [address] [place] [address] [facility] Start: 03-09-2025 End: 03-09-2025 Patient encounter procedure [facility] Comment on above: Acute pain of left k nee (Primary Dx); Primary osteoarthritis of left knee Start: 03-07-2025 End: 03-07-2025 Patient encounter procedure [facility] Comment on above: Arrived Start: 03-04-2025 Urine screening for protein Diabetes: Urine Protein Screening [facility] Start: 02-01-2025 End: 02-01-2025 Patient encounter procedure 02/01/2025 8:30 AM EDT Procedure Visit [facility] [address] [place] [address] Marlon Branham DPM [address] [place] [address] [facility] Start: 01-09-2025 End: 01-09-2025 Patient encounter procedure [facility] Comment on above: Arrived Start: 12-27-2024 Hemoglobin A1c measurement Diabetes: Hemoglobin A1C [facility] Start: 12-16-2024 End: 02-15-2026 MG Breast - bilateral Diagnostic Bilateral diagnostic mammogram Imaging Routine Axillary lymphadenopathy H/O diagnostic mammography Expected: 12/16/2024, Expires: 02/15/2026 [facility] Work Phone: Comment on above: Expected: 12/16/2024 , Expires: 02/15/2026 Start: 12-16-2024 End: 12-16-2025 US UPPER EXTREMITY NON-VASC LEFT US UPPER EXTREMITY NON-VASC LEFT Imaging Routine Axillary lymphadenopathy H/O diagnostic mammography Expected: 12/16/2024, Expires: 12/16/2025 [facility] Comment on above: Expected: 12/16/2024 , Expires: 12/16/2025 Start: 12-16-2024 End: 12-16-2024 Patient encounter procedure 12/16/2024 9:00 AM EDT Office Visit [facility] [address] [place] [address] Radha Verduzco DO [address] [place] [address] [facility] Start: 12-14-2024 End: 12-14-2024 Patient encounter procedure 12/14/2024 8:45 AM EDT Office Visit [facility] [address] [place] [address] Kristopher Herzog, [address] [place] [address] Arrived [facility] Comment on above: Arrived Start: 12-06-2024 End: 06-29-2025 DBT Breast - bilateral diagnostic Bilateral diagnostic mammogram with tomosynthesis Imaging Routine Axillary lymphadenopathy Expected: 12/06/2024 (Approximate), Expires: 06/29/2025 [facility] Work Phone: Comment on above: Expected: 12/06/2024 (Approximate), Expires: 06/29/2025 Start: 12-06-2024 Screening for malign ant neoplasm of breast Mammogram [facility] Start: 12-06-2024 End: 04-29-2025 US UPPER EXTREMITY NON-VASC LEFT US UPPER EXTREMITY NON-VASC LEFT Imaging Routine Axillary lymphadenopathy Expected: 12/06/2024, Expires: 04/29/2025 [facility] Comment on above: Expected: 12/06/2024 , Expires: 04/29/2025 Start: 12-02-2024 Medicare Annual Well ness (AWV) Medicare Annual Wellness (AWV) [facility] Start: 10-31-2024 End: 10-31-2024 Patient encounter procedure 10/31/2024 8:00 AM EDT Procedure Visit [facility] [address] [place] [phone] Marlon Branham DPM [address] [place] [address] [facility] Start: 10-25-2024 End: 01-25-2025 CT Head WO contrast CT head wo IV contrast Imaging Routine Nonintractable headache, unspecified chronicity pattern, unspecified headache type Neck pain Paresthesia of left arm Numbness of fingers Expected: 10/25/2024 (Approximate), Expires: 01/25/2025 [facility] Comment on above: Expected: 10/25/2024 (Approximate), Expires: 01/25/2025 Start: 10-25-2024 End: 10-25-2025 XR Cervical spine 2 or 3 Views [facility] Work Phone: Comment on above: Expected: 10/25/2024 , Expires: 10/25/2025 Start: 10-03-2024 End: 10-03-2024 Patient encounter procedure 10/03/2024 8:45 AM EST Office Visit [facility] [address] [facility] [address] [place] [phone] Kristopher Herzog DO [address] [place] [address] [facility] Start: 09-24-2024 End: 12-21-2024 Basic metabolic 1998 panel - Serum or Plasma Basic metabolic panel Lab Routine Primary hypertension (CMS/HCC) Diabetic peripheral neuropathy associated with type 2 diabetes mellitus (CMS/HCC) Expected: 09/24/2024, Expires: 12/21/2024 [facility] Comment on above: Expected: 09/24/2024 , Expires: 12/21/2024 Start: 09-24-2024 End: 12-21-2024 Hemoglobin a1c with eag Hemoglobin a1c with eag Lab Routine Diabetic peripheral neuropathy associated with type 2 diabetes mellitus (CMS/HCC) Expected: 09/24/2024, Expires: 12/21/2024 [facility] Work Phone: Comment on above: Expected: 09/24/2024 , Expires: 12/21/2024 Start: 09-23-2024 End: 09-23-2024 Patient encounter procedure 09/23/2024 8:30 AM EST [facility] [facility] [address] [place] [id number] Chuy, Kristopher A, DO [address] [place] [address] [facility] Start: 09-17-2024 Hemoglobin A1c measurement Diabetes: Hemoglobin A1C [facility] Start: 09-08-2024 Screening for malign ant neoplasm of colon FOBT [facility] Start: 08-01-2024 End: 08-01-2024 Patient encounter procedure [facility] Comment on above: Arrived Start: 06-22-2024 End: 06-22-2024 Patient encounter procedure 06/22/2024 8:45 AM EDT Office Visit [facility] [address] [place] [phone] Kristopher Herzog, DO [address] [place] [address] [facility] Start: 06-09-2024 End: 06-09-2024 Patient encounter procedure 06/09/2024 9:00 AM EDT Office Visit [facility] [address] [place] [phone] Kristopher Herzog, DO [address] [place] [address] [facility] Start: 06-04-2024 Hemoglobin A1c measurement Diabetes: Hemoglobin A1C [facility] Start: 04-29-2024 End: 04-29-2024 Patient encounter procedure 04/29/2024 9:00 AM EDT Office Visit [facility] [address] [place] [phone] Radha Verduzco, DO [address] [place] [address] [facility] Start: 04-24-2024 Influenza vaccination Influenza Vacc ine (#1) [facility] Start: 01-06-2024 End: 01-06-2024 Patient encounter procedure 01/06/2024 10:45 AM EDT Office Visit [facility] [address] [place] [phone] Kristopher Herzog DO [address] [place] [address] [facility] Start: 12-31-2023 Medicare Annual Well ness (AWV) Medicare Annual Wellness (AWV) [facility] Start: 12-28-2023 [facility] Start: 12-21-2023 End: 12-21-2023 Patient encounter procedure 12/21/2023 1:15 PM EDT Office Visit [facility] [address] [place] [address] Radha Verduzco DO [address] [place] [address] [facility] Start: 12-16-2023 End: 12-16-2023 Patient encounter procedure 12/16/2023 10:15 AM EDT Procedure Visit [facility] [address] [place] [phone] Marlon Branham, DPM [address] [place] [address] [facility] Start: 12-04-2023 Hemoglobin A1c measurement Diabetes: Hemoglobin A1C [facility] Start: 12-02-2023 Screening for malign ant neoplasm of breast Mammogram [facility] Start: 10-13-2023 End: 10-13-2023 Patient encounter procedure 10/13/2023 2:45 PM EST Office Visit [facility] [address] [place] [address] Marlon Branham, DPM [address] [place] [address] [facility] Start: 12-15-2022 [facility] Start: 12-14-2022 Blood chemistry [facility] Start: 12-14-2022 End: 12-14-2022 [facility] Start: 12-13-2022 [facility] Start: 12-13-2022 Computed tomography of abdomen and pelvis with contrast CT abdomen pelvis w con [facility] Start: 12-13-2022 End: 12-13-2022 [facility] Start: 12-13-2022 Physical therapy procedure [facility] Start: 12-13-2022 Referral to occupati onal therapist [facility] Start: 12-13-2022 Hospital admission [facility] Start: 09-23-2022 Bacteria identified in Urine by Culture [facility] Start: 06-23-2022 Duplex scan of lower limb veins US venous duplex LE RT [facility] Start: 06-23-2022 US Lower extremity v ein - right [facility] Start: 02-28-2022 [facility] Start: 05-18-2020 Screening for malign ant neoplasm of colon FIT [facility] Start: 1950 Screening for malign ant neoplasm of colon [facility] Patient Education [facility] Work Phone: Patient referral [facility] Work Phone: [facility] Immunizations Immunization Date Immunization Notes Care Provider Ker[facility] 06-22-2024 Seasonal trivalent influenza vaccine, adjuvanted, preservative free Adam Rodriguez COLLISION MECHANIC Work Phone: [facility] 06-22-2024 influenza virus vaccine, unspecified formulation Venita Marques COLLISION MECHANIC Work Phone: [facility] 10-08-2023 RSV, recombinant, protein subunit RSVpreF, adjuvant reconstitu, 120mcg/0.5mL, PF (Arexvy) Marlon Branham DPM Work Phone: [facility] 05-29-2023 Influenza, High-dose Seasonal, Quadrivalent, Preservative Free Kimberly Berger LPN [facility] 10-06-2023 influenza virus vaccine, unspecified formulation Marlon Branham DPM Work Phone: [facility] 05-27-2023 influenza virus vaccine, unspecified formulation Kimberly [place] COPIER TECHNICIAN [facility] 05-21-2022 influenza, high dose seasonal, preservative-free Kimberly [place] COPIER TECHNICIAN [facility] 12-04-2021 Pneumococcal Conjuga te PCV 20 Kimberly [place] COPIER TECHNICIAN [facility] 05-31-2021 influenza, high dose seasonal, preservative-free Kimberly [place] COPIER TECHNICIAN [facility] 11-14-2020 COVID-19 mRNA-1273 (Moderna) DO Kristopher Herzog Work Phone: [facility] 10-17-2020 COVID-19 mRNA-1273 (Moderna) DO Kristopher Herzog Work Phone: [facility] 07-26-2020 Seasonal trivalent influenza vaccine, adjuvanted, preservative free Kimberly [place] COPIER TECHNICIAN [facility] 12-26-2019 KENALOG - 10 mg Lauren Fitt Other [employer] Other 08-22-2019 KENALOG - 10 mg Lauren Fitt Other [employer] Other 05-17-2019 Seasonal trivalent influenza vaccine, adjuvanted, preservative free Kimberly [place] COPIER TECHNICIAN [facility] 01-14-2019 pneumococcal polysaccharide vaccine, 23 valent Lauren Fitt Other [employer] Other 11-05-2018 KENALOG - 10 mg Lauren Fitt Other [employer] Other 05-14-2018 influenza virus vaccine, unspecified formulation DO Kristopher Herzog Work Phone: [facility] 05-14-2018 influenza, high dose seasonal, preservative-free Lauren Fitt Other [employer] Other 06-12-2017 influenza virus vaccine, unspecified formulation DO Kristopher Herzog Work Phone: [facility] 06-12-2017 influenza, injectabl e, quadrivalent, preservative free Kimberly [place] COPIER TECHNICIAN [facility] 06-12-2017 influenza, high dose seasonal, preservative-free Lauren Fitt Other [employer] [facility] [employer] Other 06-26-2016 influenza virus vaccine, unspecified formulation DO Kristopher Herzog Work Phone: [facility] 06-26-2016 influenza, high dose seasonal, preservative-free Lauren Fitt Other [employer] Other 07-06-2015 pneumococcal conjuga te vaccine, 13 valent Kimberly [place] COPIER TECHNICIAN [facility] 06-15-2015 seasonal influenza, intradermal, preservative free Kimberly [place] COPIER TECHNICIAN [facility] 10-27-2014 KENALOG - 10 mg Laurne Fitt Other [employer] Other 10-15-2014 KENALOG - 10 mg Lauren Fitt Other [employer] Other 05-29-2014 influenza virus vaccine, unspecified formulation DO Kristopher Herzog Work Phone: [facility] 05-29-2014 influenza, high dose seasonal, preservative-free Lauren Fitt Other [employer] Other 08-24-2013 zoster vaccine, live Kimberly [place] LP N [facility] 04-26-2013 influenza virus vaccine, unspecified formulation DO Kristopher Herzog Work Phone: [facility] 04-26-2013 influenza, seasonal, injectable, preservative free Kimberly [place] COPIER TECHNICIAN [facility] 04-26-2013 influenza, high dose seasonal, preservative-free Lauren Fitt Other [employer] Other 04-26-2013 influenza, injectabl e, quadrivalent, preservative free Kiersten Qureshi Other [employer] Other 07-28-2012 seasonal influenza, intradermal, preservative free Kimberly Berger COPIER TECHNICIAN [facility] 06-30-2011 pneumococcal polysaccharide vaccine, 23 valent Kimberly Berger COPIER TECHNICIAN [facility] 05-20-2011 seasonal influenza, intradermal, preservative free Kimberly Berger COPIER TECHNICIAN [facility] Healthcare Payers Date Payer Category Payer Unknown [id number] 2023 Self-pay [id number] 2021 Medicare [id number] 2021 Medicare (Managed Care) 1.2. [id number] 2021 Unknown [employer] [id number] 2021-Present [address] [place] [address] [id number]. 7.3.129448.315 2021 Unknown [id number] 2.16.840.1.273058.19 1950 Unknown [id number] 2.16.840.1.128997.3.579.2. 356 1950 Unknown [id number] 2.16.840.1.766295.3.579.2. 1259 1950 Unknown [id number] 2.16.840.1.344244.3.579.2. 1259 1951 Unknown [id number] 2.16.840.1.487353.3.579.2. 1259 1951 Unknown [id number] 2.16.840.1.780450.3.579.2. 1259 1951 Unknown [id number] 2.16.840.1.550041.3.579.2. 1258 1951 Unknown [id number] 2.16.840.1.008960.3.579.2. 1259 1951 Unknown [id number] 2.16.840.1.348017.3.579.2. 125 1951 Unknown [id number] 2.16.840.1.465246.3.579.2. 125 1951 Unknown [id number] 2.16.840.1.886954.3.579.2. 1258 1951 Unknown [id number] 2.16.840.1.638724.3.579.2. 1258 1951 Unknown [id number] 2.16.840.1.422111.3.579.2. 1258 1951 Unknown [id number] 2.16.840.1.215258.3.579.2. 1258 1951 Unknown [id number] 2.16.840.1.409145.3.579.2. 1258 1951 Unknown [id number] 2.16.840.1.402051.3.579.2. 1258 1951 Unknown [id number] 2.16.840.1.344671.3.579.2. 1258 1951 Unknown [id number] 2.16.840.1.088173.3.579.2. 125 1951 Unknown [id number] 2.16.840.1.323662.3.579.2. 125 1951 Unknown [id number] 2.16.840.1.648297.3.579.2. 125 1951 Unknown [id number] 2.16.840.1.701470.3.579.2. 125 1951 Unknown [id number] 2.16.840.1.466237.3.579.2. 1259 1951 Unknown [id number] 2.16.840.1.709781.3.579.2. 1259 1951 Unknown [id number] 2.16.840.1.907409.3.579.2. 1259 1951 Unknown [id number] 2.16.840.1.530388.3.579.2. 1259 1950 Unknown [id number] 2.16.840.1.911347.3.579.2. 1259 Medicare Medicare [id number] Medicare Anthem MCR PF [id number] Unknown HCAP/HFA/FAP Active [id number] Unknown [id number] 2.16.840.1.735056.3.579.2. 531 Unknown [id number] 2.16.840.1.302717.3.579.2. 531 Unknown [id number] 2.16.840.1.563999.3.579.2. 531 Social History Date Type Detail Facility Start: 09-08-2023 End: 01-09-2025 Sex Assigned At [facility] [employer] Other Start: 11-23-2021 End: 10-07-2024 Tobacco smoking status DEIS Ex-smoker (finding) [facility] Start: 1950 Sex Assigned At Female F [facility] Start: 07-16-2022 End: 09-08-2023 Tobacco smoking status DEIS Never smoked tobacco (finding) [facility] History of tobacco use Passive smoker [facility] Start: 09-08-2023 Tobacco use and exposure Smokeless tobacco non-user [facility] Start: 09-16-2023 End: 04-05-2025 Alcohol intake Lifetime non-drinker (finding) [facility] [...] Start: 07-04-2024 End: 02-01-2025 Sex Female (finding) [facility] Medical Equipment Procedure Code Equipment Code [...] SELF DRILL ING 3.8X14MM FDA Start: 06-18-2017 [id number] Start: 08-20-2022 1 each by Other route in the morning and 1 each at noon and 1 each in the evening and 1 each before bedtime. [id number] USE TO TEST BLOO D SUGAR 3 TIMES DAILY DIRECTED [id number] Start: 06-13-2023 USE TO TEST BLOO D SUGAR THREE TIMES A DAY DIRECTED [id number] Start: 06-13-2023 BONE 5MM DUO FDA Start: [...] D SUGAR THREE TIMES A DAY DIRECTED [id number] Start: 11-09-2023 USE TO TEST BLOO D SUGAR 3 TIMES DAILY DIRECTED [id number] Start: 11-09-2023 BONE 5MM DUO FDA Start: [...] D SUGAR 3 TIMES A DAY DIRECTED [id number] Start: 01-26-2025 Inject 1 each un momo the skin in the morning and 1 each before bedtime. Use as instructed. [id number] Start: 01-30-2025 BONE 5MM DUO FDA Start: [...] [facility] ionnaire 2 item (PHQ-2) [Reported] [facility] 12-15-2022 Functional status Patient at [facility] Work Phone: [facility] Mental Status Date Assessment Result Facility 12-15-2022 Cognitive function Cognitive Sta tus Patient at Baseline [facility] Work Phone: Clinical Notes 05-15-2021 to 04-05-2025 Marlon Branahm DPM - 04/05/2025 9:30 AM Oliva Branham DPM - 03/22/2025 11:15 AM Oliva Branham DPM - 03/14/2025 9:00 AM KASH Babcock - 03/09/2025 8:45 AM EDT Note Date & Type Note Facility 04-05-2025 History of Present illness Narrative Images from the original note were not included. HPI: Nicol Frances presents today for post-op appointment of correction right hallux deformity. Surgery was performed on 03/03/2025 at [facility]. Patient complains of pain 0. Current symptoms [...] there is an opening to the central incision measuring after removal of the eschar to the [...] site. As patient has full neuropathy, there is no need for local anesthesia. I did excise nonviable tissue, callus, skin, and slough of ulceration site. This was performed with a tissue nipper [...] underwater until ulcer is completely healed. Patient should spongebathe the foot only in all unopen areas. 5. Patient was instructed on continued dressing changes to the ulceration site with amerigel. They should continue with use of the surgical shoe for offloading/pressure reduction. I did also fabricate a toe spacer from [employer] to help prevent rubbing and dislocation of the toe. 6. Patient was advised if they notice any worsening to the ulceration site including signs of infection, N/F/V/C to call the office for an urgent appointment or go to the nearest emergency room. 7. RTC: 1 week. documented in this encounter [facility] 03-22-2025 History of Present illness Narrative Images from the original note were not included. HPI: Nicol Frances presents today for post-op appointment of correction right hallux deformity. Surgery was performed on 03/03/2025 at [facility]. Patient complains of pain 0. Current symptoms [...] left in place. Updated orders placed for [facility] with [facility]. She was also advised on use of [...] RTC: 3-4 weeks. documented in this encounter [facility] 03-14-2025 History of Present illness Narrative Images from the original note were not included. HPI: Nicol Frances presents today for post-op appointment of correction right hallux deformity. Surgery was performed on 03/03/2025 at [facility]. Patient complains of pain 0. Current symptoms [...] I will order dressing changes with her [facility] nurse. Patient was also advised on beginning passive range of motion exercises to the foot and ankle as well as calf squeezes/compression. Patient does not want a refill of her pain medication. Patient will follow-up in 7-10 days for suture removal. documented in this encounter [facility] 03-09-2025 History of Present illness Narrative Images [...] pain management, which could be scheduled in [place] as she transitions to Dr. Walden. Significant [...] requiring urgent evaluation. Visit was preformed using [employer]-drone pilot speech recognition. documented in this encounter [facility] 03-07-2025 History of Present illness Narrative HPI: Nicol Frances presents today for post-op appointment of correction right hallux deformity. Surgery was performed on 03/03/2025 at [facility]. Patient complains of pain 0. Current symptoms [...] for suture removal. documented in this encounter [facility] 02-22-2025 Telephone encounter Note Will you please call her and see if she has had anything done? I know I ordered an EKG for her. [facility] Work Phone: 02-22-2025 Miscellaneous Notes Will you please call her and see if she has had anything done? I know I ordered an EKG for her. Called [facility] and [facility] for results. [facility] doesn't have anything after January 2024. [facility] has lab work from December 2024, which we have, and a EKG from October 2024 that they are sending over now. No other results available. I looked on clinisync and do not see labs or an EKG has she done any for her persurgical testing? Please call [facility] and see if we can request recent labs and EKG. I believe she had done her presurgical testing labs there. She is scheduled for 03/[address] Branham. documented in this encounter [facility] 02-22-2025 Telephone encounter Note Called [facility] and [facility] for results. [facility] doesn't have anything after January 2024. [facility] has lab work from December 2024, which we have, and a EKG from October 2024 that they are sending over now. No other results available. [facility] 02-22-2025 Telephone encounter Note I looked on clinisync and do not see labs or an EKG has she done any for her persurgical testing? [facility] 02-22-2025 Telephone encounter Note Please call [facility] and see if we can request recent labs and EKG. I believe she had done her presurgical testing labs there. She is scheduled for 03/[address] Branham. [facility] 02-16-2025 History of Present illness Narrative Images from the original note were not included. HPI: Patient presents today for their pre-operative appointment. The patient is scheduled for correction right hallux deformity at [facility] with Dr. Branham on 03/03/2025 at [...] disc without myelopathy DVT (deep venous thrombosis) ([facility]) Encounter for current long-term use of 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s Erythema nodosum Essential hypertension, benign Generalized osteoarthrosis unspecified site Hallux hammertoe, left Hallux hammertoe, right Hallux malleus of right foot Hearing loss Hepatitis B Hyperlipidemia, unspecified Obstructive sleep apnea (adult) (pediatric) Orthostatic hypotension Osteoarthritis of knee 12/22/2019 PE (pulmonary thromboembolism) ([facility]) 04/21/2023 Primary osteoarthritis of first carpometacarpal joint of right hand Spinal stenosis in cervical region Type II or unspecified type diabetes mellitus with neurological manifestations, uncontrolled(250.62) ([facility]) Ulcerative colitis ([facility]) Unspecified Ulcerative colitis ([facility]) Other ulcerative colitis Ulcerative colitis ([facility]) 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 Lancets (Co3 SystemsTouch Delica Plus [id number]) [facility] USE TO TEST BLOOD SUGAR 3 TIMES [...] Patient was dispensed their postoperative prescriptions including: [place]. A post-operative shoe was also dispensed for [...] days after surgery. documented in this encounter [facility] 02-13-2025 History of Present illness Narrative Images [...] before. She has not previously consulted an marketing proposal specialist. Her home health nurse visits her [...] Syringe U/F 30G X 1/2 0.5 ML [facility] cholecalciferol (VITAMIN D-3) 1,000 Units, Daily citalopram (CELEXA) 20 mg, Oral, Every morning clobetasol (Temovate) 0.05 % ointment Topical, 2 times daily, to affected area Continuous Glucose Performance Architect (FreeStyle Carline 3 [place]) device USE I DEVICE CONTINUOUSLY Continuous Glucose Sensor (FreeStyle Carline 3 Sensor) [facility] 1 Device, Does not apply, Every 14 [...] 4 times daily Lancets (OneTouch Delica Plus [id number]) misc USE TO TEST BLOOD SUGAR 3 [...] (HCC) Gastroesophageal reflux disease Hypercoagulable state (HHS-HCC) detention current use of 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 - Referral to marketing proposal specialist for further evaluation and pain management. [...] Venita Marques NP documented in this encounter [facility] 02-01-2025 History of Present illness Narrative Images [...] their surgery date. documented in this encounter [facility] 01-09-2025 History of Present illness Narrative documented in this encounter [facility] 01-04-2025 Evaluation note Diagnosis Onset Date Resolution [...] pulmonary embolism acute March 09, 2025 10:19am [facility] Work Phone: 1(842) 454-641705-14-2025 Evaluation note* Diagnosis Onset Date Resolution Status [...] pulmonary embolism acute March 13, 2025 8:29am [facility] Work Phone: 1(677) 413-264105-14-2025 Evaluation note* Diagnosis Onset Date Resolution Status [...] pulmonary embolism acute March 17, 2025 8:40am [facility] Work Phone: 1(807) 318-889204-25-2025 History of Present illness Narrative* Radha Verduzco, - 12/16/2024 9:00 AM EDT Images from [...] Syringe U/F 30G X 1/2 0.5 ML [facility] cholecalciferol (VITAMIN D-3) 1,000 Units, Daily citalopram (CELEXA) 20 mg, Oral, Every morning clobetasol (Temovate) 0.05 % ointment Topical, 2 times daily clobetasol (Temovate) 0.05 % ointment Topical, 2 times daily Continuous Glucose Performance Architect (FreeStyle Carline 3 [place]) device USE I DEVICE CONTINUOUSLY Continuous Glucose Sensor (FreeStyle Carline 3 Sensor) [facility] 1 Device, Does not apply, Every 14 [...] device 1 each, 4 times daily Lancets (Co3 SystemsTouch Delica Plus [id number]) [facility] USE TO TEST BLOOD SUGAR 3 TIMES [...] disease Other specified forms Colitis Cough Depression ([facility]/HCC) Depressive disorder ([facility]) not elsewhere classified Displacement of lumbar intervertebral disc without myelopathy DVT (deep venous thrombosis) ([facility]) Encounter for current long-term use of 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s Erythema nodosum Essential hypertension, benign ([facility]) Generalized osteoarthrosis unspecified site Hallux hammertoe, left Hallux hammertoe, right Hallux malleus of right foot Hearing loss Hepatitis B Hyperlipidemia, unspecified ([facility]) Obstructive sleep apnea (adult) (pediatric) Orthostatic hypotension Osteoarthritis of knee 12/22/2019 PE (pulmonary thromboembolism) ([facility]) 04/21/2023 Primary osteoarthritis of first carpometacarpal joint of right hand Spinal stenosis in cervical region Type II or unspecified type diabetes mellitus with neurological manifestations, uncontrolled(250.62) (CMS/HCC) Ulcerative colitis Unspecified Ulcerative colitis Other ulcerative colitis Ulcerative colitis Vasculitis ([facility]) 04/24/2021 Venous embolism and thrombosis unspecified deep [...] Exam Vitals reviewed. Exam conducted with a university relations recruiter present. HENT: Head: Normocephalic. Eyes: Pupils: Pupils [...] US for that visit. documented in this encounterFreeman Health [id number] Evaluation note* Diagnosis Onset Date Resolution Status [...] pulmonary embolism acute February 01, 2025 9:46am [facility] Work Phone: 1(113) 648-239604-09-2025 Evaluation note* Diagnosis Onset Date Resolution Status [...] pulmonary embolism acute February 22, 2025 8:35am [facility] Work Phone: 1(386) 376-163503-12-2025 Evaluation note* Diagnosis Onset Date Resolution Status [...] pulmonary embolism acute January 04, 2025 8:39am [facility] Work Phone: 1(214) 166-284903-04-2025 History of Present illness Narrative* Venita Marques, COLLISION MECHANIC - 10/25/2024 2:00 PM EST Images from [...] Syringe U/F 30G X 1/2 0.5 ML [facility] [place] cholecalciferol (VITAMIN D-3) 1,000 Units, Daily citalopram (CELEXA) 20 mg, Oral, Every morning clobetasol (Temovate) 0.05 % ointment Topical, 2 times daily clobetasol (Temovate) 0.05 % ointment Topical, 2 times daily Continuous Glucose Performance Architect (FreeStyle Carline 3 [place]) device 1 Device, Does not apply, Continuous Continuous Glucose Sensor (FreeStyle Carline 3 Sensor) misc 1 Device, Does not apply, Every 14 days glucose blood (OneTouch Verio) test strip USE TO TEST BLOOD SUGAR THREE TIMES A DAY DIRECTED Lancet Devices (Autolet) lancing device 1 each, 4 times daily Lancets (OneTouch Delica Plus [id number]) [facility] [place] USE TO TEST BLOOD SUGAR 3 TIMES [...] neuropathy associated with type 2 diabetes mellitus ([facility]/HCC) Gastroesophageal reflux disease Hypercoagulable state ([facility]/HCC) detention current 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 She will return on Thursday to [facility] office after her podiatry appt provide an [...] follow-up. Venita Marques NP documented in this encounterFreeman Health [id number] Evaluation note* Diagnosis Onset Date Resolution Status [...] pulmonary embolism acute November 30, 2024 8:37am [facility] Work Phone: 1(492) 359-665201-17-2025 Evaluation note* Diagnosis Onset Date Resolution Status [...] pulmonary embolism acute November 02, 2024 8:51am [facility] Work Phone: 1(201) 407-700801-17-2025 Evaluation note* Diagnosis Onset Date Resolution Status [...] pulmonary embolism acute November 30, 2024 8:37am [facility] Work Phone: 1(118) 694-908612-11-2024 Evaluation note* Diagnosis Onset Date Resolution Status [...] pulmonary embolism acute October 05, 2024 8:36am [facility] Work Phone: 1(442) 664-706812-11-2024 Evaluation note* Diagnosis Onset Date Resolution Status [...] Crohn's colitis acute October 07, 2024 9:04am [facility] Work Phone: [phone]) 202-358912-09-2024 History of Present illness Narrative* Marlon Branham [...] after her next appointment. documented in this encounterFreeman Health [id number] Evaluation note* Diagnosis Onset Date Resolution Status Admit Date Crohn's colitis acute June 29, 2024 10:28am Internal hemorrhoids acute Nove mber 2023 10:28am History of DVT (deep vein thrombosis) acute July 04, 024 8:29am History of pulmonary embolism acute July 04, 2024 8:29am History of DVT (deep vein thrombosis) acute August 03 8:24am History of pulmonary embolism acute August 03, 2024 8:24am History of DVT (deep vein thrombosis) acute September 09 8:43am History of pulmonary embolism acute September 09, 2024 8:43am [facility] Work Phone: 1([phone]) 661-193710-30-2024 History of Present illness Narrative* Adam Rodriguez, FLORESITA - 06/22/2024 8:45 AM EDT Images [...] ointment Topical, 2 times daily glucose blood (BBL Enterprisesuch Verio) test strip USE TO TEST BLOOD SUGAR THREE TIMES A DAY DIRECTED insulin aspart protamine-insulin aspart (NovoLOG Mix 70-30) (70-30) 100 UNIT/ML injection 12 Units,Subcutaneous, 2 times daily with meals Lancet Devices (Autolet) lancing device 1 each, 4 times daily Lancets (OneTouch Delica Plus [id number]) misc USE TO TEST BLOOD SUGAR 3 [...] all orders for this visit: Primary hypertension ([facility]/HCC) - Basic metabolic panel; Future Mixed hyperlipidemia ([facility]) -at goal with lipitor and zetia Obstructive sleep apnea syndrome -wears c-pap Peripheral venous insufficiency -chronic left leg edema from previous DVT Chronic deep vein thrombosis (DVT) of femoral vein of left lower extremity ([facility]) 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 machines and devices Diabetic peripheral neuropathy associated with type 2 diabetes mellitus ([facility]) - Hemoglobin a1c with eag; Future - Basic metabolic panel; Future Gastroesophageal reflux disease without esophagitis -taking protonix Hypercoagulable state ([facility]) -on warfarin for DVT 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 The rest the review systems is negative. She return here in three months for a BMP and also an A1c.Patient agrees with plan. Dr. Herzog was present in office suite today and is supervising patient care and available for consult. I'm following his plan of care for the above problems. Previous notes and plan were reviewed and followed. Adam Rodriguez, MSN, JEWELRY APPRAISER-MORTARMAN documented in this encounterFreeman Health [id number] History of Present illness Narrative* Radha Verduzco, [...] 4 times daily Lancets (OneTouch Delica Plus [id number]) misc USE TO TEST BLOOD SUGAR 3 [...] (CMS/HCC) Other specified forms Colitis Cough Depression ([facility]/HCC) Depressive disorder ([facility]/HCC) not elsewhere classified Displacement of lumbar intervertebral disc without myelopathy DVT (deep venous thrombosis) ([facility]) Encounter for current long-term use of 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s Erythema nodosum Essential hypertension, benign ([facility]/HCC) Generalized osteoarthrosis unspecified site Hallux hammertoe, [...] Exam Vitals reviewed. Exam conducted with a university relations recruiter present. HENT: Head: Normocephalic. Eyes: Pupils: Pupils [...] will resume yearly evaluations. documented in this encounterFreeman Health [id number] History of Present illness Narrative* Marlon Branham [...] over the callous site. documented in this encounterFreeman Health [id number] Evaluation note* Diagnosis Onset Date Resolution Status [...] 29, 2024 10:28am Internal hemorrhoids acute Nove [facility] 2023 10:28am History of DVT (deep vein thrombosis) acute July 04 8:29am History of pulmonary embolism acute July 04, 2024 8:29am [facility] Work Phone: 1([phone]) 507-343405-06-2024 [facility] History and physical note Author Sandy Clark [facility] December 28, 2023 8:33am Note Date/Time December 28, 2023 8:33am [facility] [address] [place] [address] Gastroenterology H&P Signed Patient: Nicol Frances MR#: [id number] : 1950 Acct:[id number] Age/Sex: 73 / F Adm Date: 4 Loc: Room: Type: [facility] Attending Dr: Sandy Clark DO Copies to: [...] <Electronically signed by Sandy Clark DO> 12/28/23832 [facility] Work Phone: 1([phone]) 856-975705-06-2024 [facility]Prom[facility] Evaluation note* Encounter Date Diagnosis Assessment [...] or Wednesdays. Seen by Genie Escobedo PharmD [facility] Other 02-05-2024 Telephone encounter Note* Telephone Encounter - Ruddy Cisneros - 09/28/2023 9:48 AM EST Patient is scheduled. [facility] [id number] Miscellaneous Notes* Telephone Encounter - Ruddy Cisneros [...] pt and schedule her an appointment to potato picker her shoes that arrived. Thankyou! documented in this encounterFreeman Health [id number] Telephone encounter Note* Telephone Encounter - Kimberly Berger LPN - 09/25/2023 10:23 AM EST Pt called and lvm that she was sorry she missed our call and for someone to give her a call back please and thank you! [facility] [id number] Telephone encounter Note* Telephone Encounter - Ruddy Cisneros - 09/25/2023 9:55 AM EST Called patient to schedule appt to obtain shoes. Unable to LVM due to voicemail not set up. [facility] [id number] Telephone encounter Note* Telephone Encounter - Kimberly Berger LPN - 09/24/2023 4:43 PM EST Can someone please call pt and schedule her an appointment to potato picker her shoes that arrived. Thankyou! Freeman Health [id number] Evaluation note* Encounter Date Diagnosis Assessment Notes [...] Tuesdays, or Wednesdays. Seen by Samantha Echavarria, NiraliD Candidate/Tita Roberts PharmD [facility] Other 12-19-2023 Evaluation note* Encounter Date Diagnosis [...] or Wednesdays. Seen by Tita Roberts PharmD [facility] Other 11-21-2023 Evaluation note* Encounter Date Diagnosis [...] Seen by Rose Marie Quispe, Trina Candidate/Tita Robrets PharmD [facility] Other 10-23-2023 Evaluation note* Encounter Date Diagnosis [...] to appointments. Seen by Tita Roberts PharmD [facility] Other 09-07-2023 Evaluation note* Encounter Date Diagnosis [...] patient preference. Seen by Rachel Alonso PharmD [facility] Other 08-16-2023 Evaluation note* Encounter Date Diagnosis [...] dosing instructions as above. Seen by Anny Qureshi,[facility] Other 07-31-2023 Evaluation note* Encounter Date Diagnosis [...] in medications or diet. Seen by Anny Qureshi,[facility] Other 07-19-2023 Evaluation note* Encounter Date Diagnosis [...] in medications or diet. Seen by Anny Qureshi,[facility] Other 07-03-2023 Evaluation note* Encounter Date Diagnosis [...] in medications or diet. Seen by Anny Qureshi,[facility] Other 04-19-2023 Evaluation note* Encounter Date Diagnosis [...] in 4 weeks. Seen by Anny Qureshi, [facility] Other 03-22-2023 Evaluation note* Encounter Date Diagnosis Assessment Notes Treatment Notes Treatment Clinical Notes Oct, Medication monitoring encounter (ICD-10 - Z51.81) Referring Provider: Darius Herzog Diagnosis: DVT/PE (1997, 2001) INR Goal: 2-3 INR: 2.7 Warfarin Tablet Size: 3mg Regino: 3mg Howard: 3mg Shasha: 1.5mg Thursday: 3mg : 3mg Thursday: 3mg Thursday: 3mg Total Weekly Dose: 19.5mg Continue current plan. Follow-up in 4 weeks. Seen by Anny Qureshi, [facility] Other 02-22-2023 Evaluation note* Encounter Date Diagnosis [...] in 4 weeks. Seen by Anny Qureshi, [facility] Other 01-25-2023 Evaluation note* Encounter Date Diagnosis [...] in 4 weeks. Seen by Anny Qureshi, [facility] Other 12-28-2022 Evaluation note* Encounter Date Diagnosis [...] made if necessary. Seen by Anny Qureshi, [facility] Other 12-01-2022 Evaluation note* Encounter Date Diagnosis [...] high INR. Seen by Olu Rene PharmD [facility] Other 11-03-2022 Evaluation note* Encounter Date Diagnosis [...] can advise her. Seen by Lauren Vance, [facility] Other 10-13-2022 Evaluation note* Encounter Date Diagnosis Assessment Notes Treatment Notes Treatment Clinical Notes May, Medication monitoring encounter (ICD-10 - Z51.81) Referring Provider: Darius Herzog Diagnosis: DVT/PE (1997, 2001) INR Goal: 2-3 INR: 2.6 Warfarin Tablet Size: 3mg Regino: 3mg Howard: 3mg Shasha: 1.5mg Thursday: 3mg : 3mg Thursday: 3mg Thursday: 3mg Total Weekly Dose: 19.5mg Continue current plan. Follow-up in 3 weeks. Patient had procedure last week, bridged with Lovenox, will discontinue Lovenox at this time. [facility]. Seen by Olu Rene PharmD [facility] Other 09-29-2022 Evaluation note* Encounter Date Diagnosis [...] more details. Seen by Olu Rene PharmD [facility] Other 09-13-2022 Evaluation note* Encounter Date Diagnosis [...] as above. Seen by Tk Mora PharmD [facility] Other 08-16-2022 Evaluation note* Encounter Date Diagnosis [...] her Grandson. Seen by Jennifer Amezcua LPN [facility] Other 07-21-2022 Evaluation note* Encounter Date Diagnosis [...] 's appointment. Seen by Tameka Churchill RN [facility] Other 07-07-2022 Evaluation note* Encounter Date Diagnosis [...] 's appointment. Seen by Olu Rene PharmD [facility] Other 06-27-2022 Evaluation note* Encounter Date Diagnosis [...] 's appointment. 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 Seen by Tameka Churchill RN [facility] Other 05-16-2022 Evaluation note* Encounter Date Diagnosis [...] Please coordinate with 's appointment. Seen by Mraita Luo LPN [facility] Other 05-02-2022 Evaluation note* Encounter Date Diagnosis [...] coordinate with 's appointment. Seen by Tameka Chruchill RN [facility] Other 04-20-2022 Evaluation note* Encounter Date Diagnosis [...] will resume. Seen by Tameka Churchill RN [facility] Other 04-07-2022 Evaluation note* Encounter Date Diagnosis Assessment Notes Treatment Notes Treatment Clinical Notes Nov, Diarrhea (ICD-10 - R19.7) Nov, Rectal bleeding (ICD-10 - K62.5) Nov, Colitis (ICD-10 - K52.9) [facility] Other 04-06-2022 Evaluation note* Encounter Date Diagnosis [...] showing improvement. Seen by Tameka Churchill RN [facility] Other 03-22-2022 Evaluation note* Encounter Date Diagnosis [...] 2 weeks. Seen by Tameka Churchill RN [facility] Other 03-10-2022 Evaluation note* Encounter Date Diagnosis [...] 2 weeks. Seen by Tameka Churchill RN [facility] Other 02-21-2022 Evaluation note* Encounter Date Diagnosis [...] 2 weeks. Seen by Tameka Churchill RN [facility] Other 02-07-2022 Evaluation note* Encounter Date Diagnosis [...] 2 weeks. Seen by Tameka Churchill RN [facility] Other 01-20-2022 Evaluation note* Encounter Date Diagnosis [...] 2 weeks. Seen by Tameka Churchill RN [facility] Other 01-06-2022 Evaluation note* Encounter Date Diagnosis [...] 2 weeks. Seen by Tameka Churchill RN [facility] Other 12-09-2021 Evaluation note* Encounter Date Diagnosis [...] 2 weeks. Seen by Tameka Churchill RN [facility] Other 11-22-2021 Evaluation note* Encounter Date Diagnosis [...] 2 weeks. Seen by Tameka Churchill RN [facility] Other 11-10-2021 Evaluation note* Encounter Date Diagnosis [...] 2 weeks. Seen by Tameka Churchill RN [facility] Other 10-27-2021 Evaluation note* Encounter Date Diagnosis [...] 's appt. Seen by Tameka Churchill RN [facility] Other 10-05-2021 Evaluation note* Encounter Date Diagnosis [...] 's appt. Seen by Tameka Churchill RN [facility] Other 09-22-2021 Evaluation note* Encounter Date Diagnosis [...] with . Seen by Olu Rene PharmD [facility] Other [place] complaint+Reason for visit Narrative* Chief Complaint DVT INR Follow Up blood in stool/change in stool/ref M. Sarah R59.0 Procedure Instructions + Lovenox Instructions Reason for Visit History of DVT (deep vein thrombosis) History of pulmonary embolism Rectal bleed Ulcerative colitis History of DVT (deep vein thrombosis) History of pulmonary embolism [facility] Work Phone: [place] complaint+Reason for visit Narrative* Chief Complaint DVT INR Follow Up blood in stool/change in stool/ref M. Sarah R59.0 Procedure Instructions + Lovenox Instructions ulcerative colitis/blood in stool ulcerative colitis/blood in stool Reason for Visit History of DVT (deep vein thrombosis) History of pulmonary embolism Rectal bleed Ulcerative colitis History of DVT (deep vein thrombosis) History of pulmonary embolism [facility] Work Phone: [place] complaint+Reason for visit Narrative* Chief Complaint INR Follow Up blood in stool/change in stool/ref Kevin Rodriguez R59.0 Procedure Instructions + Lovenox Instructions ulcerative [...] (deep vein thrombosis) History of pulmonary embolism [facility] Work Phone: [place] complaint+Reason for visit Narrative* Chief Complaint blood in stool/betancur e in stool/ref Kevin Rodriguez R59.0 Procedure Instructions + Lovenox Instructions ulcerative [...] (deep vein thrombosis) History of pulmonary embolism [facility] Work Phone: [place] complaint+Reason for visit Narrative* Chief Complaint ulcerative [...] (deep vein thrombosis) History of pulmonary embolism [facility] Work Phone: Evaluation noteNo InformationNortRocketBolt Other evaluation noteNoDeepRockDrive Other Evaluation noteNo assessment information available [facility] Work Phone: Evaluation note* Diagnosis Onset Date Resolution Status HTN (hypertension) acute Shakiness acute Weakness acute [facility] Work Phone: Evaluation note* Diagnosis Onset Date Resolution Status History of DVT (deep vein thrombosis) acute History of pulmonary embolism acute [facility] Work Phone: evaluation note* Diagnosis Onset Date Resolution Status History of DVT (deep vein thrombosis) acute History of pulmonary embolism acute Blood in stool acute Ulcerative colitis acute [facility] Work Phone: evaluation note* Diagnosis Onset Date Resolution Status History of DVT (deep vein thrombosis) acute History of pulmonary embolism acute Rectal bleed acute Ulcerative colitis acute [facility] Work Phone: evaluation note* Diagnosis Onset Date Resolution Status History of DVT (deep vein thrombosis) acute History of pulmonary embolism acute Rectal bleed acute Ulcerative colitis acute History of DVT (deep vein thrombosis) acute History of pulmonary embolism acute [facility] Work Phone: evaluation note* [...] thrombosis) acute History of pulmonary embolism acute [facility] Work Phone: evaluation note* [...] thrombosis) acute History of pulmonary embolism acute [facility] Work Phone: evaluation note* Diagnosis Onset Date Resolution Status History of DVT (deep vein thrombosis) acute History of pulmonary embolism acute History of DVT (deep vein thrombosis) acute History of pulmonary embolism acute History of DVT (deep vein thrombosis) acute History of pulmonary embolism acute History of DVT (deep vein thrombosis) acute History of pulmonary embolism acute [facility] Work Phone: evaluation note* Diagnosis Primary hypertension (CMS/HCC)- Primary Unspecified essential hypertension Mixed hyperlipidemia (CMS/HCC) Mixed hyperlipidemia Obstructive sleep apnea syndrome Obstructive sleep apnea (adult) (pediatric) Peripheral venous insufficiency Unspecified venous (peripheral) insufficiency Chronic deep vein thrombosis (DVT) of femoral vein of left lower extremity ([facility]) 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 machines and devices Diabetic peripheral neuropathy associated with type 2 diabetes mellitus ([facility]) Gastroesophageal reflux disease without esophagitis Esophageal reflux Hypercoagulable state ([facility]) Primary hypercoagulable state 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 ([facility]) OAB (overactive bladder) Class 1 obesity Spinal stenosis of lumbosacral region Ulcerative colitis without complications, unspecified location ([facility]) Need for immunization against influenza Need for [...] thrombosis) acute History of pulmonary embolism acute [facility] Work Phone: Evaluation note* Diagnosis Type II diabetes mellitus with neurological manifestations ([facility])- Primary Type II or unspecified type diabetes mellitus with neurological manifestations, not stated as uncontrolled Onychomycosis Dermatophytosis of nail Corns and callosities Hallux malleus, left Pain in both feet documented in this encounter [facility]* Diagnosis Type II diabetes mellitus with neurological manifestations ([facility]/HCC)- Primary Type II or unspecified type diabetes mellitus with neurological manifestations, not stated as uncontrolled Onychomycosis Dermatophytosis of nail Corns and callosities Pain in both feet documented in this encounter [facility]* Diagnosis Axillary lymphadenopathy- Primary Enlargement of lymph nodes documented in this encounter [facility]* Diagnosis Primary osteoarthritis of right knee- Primary Hypercoagulable state ([facility]) Primary hypercoagulable state Diabetic peripheral neuropathy associated with type 2 diabetes mellitus ([facility]) Primary hypertension ([facility]) Unspecified essential hypertension Ulcerative colitis without complications, unspecified location ([facility]) 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 ([facility]) detention current use of 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 Sacral ulcer, limited to breakdown of skin ([facility]) documented in this encounter [facility]* [...] extremity (CMS/HCC) Spinal stenosis of lumbosacral region 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 documented in [...] Unspecified pre-operative examination documented in this encounter [facility]* Diagnosis Surgery follow-up examination- Primary Follow-up examination, following unspecified surgery Hallux malleus, right Right foot pain Pain in soft tissues of limb Ulcer of great toe, right, limited to breakdown of skin (HCC) documented in this encounter [facility]Evaluation [facility]* Diagnosis Acute pain of left knee- Primary Primary osteoarthritis of left knee documented in this encounter [facility]Evaluation [facility]* Diagnosis Surgery follow-up examination- Primary Follow-up examination, following unspecified surgery Hallux malleus, right Right foot pain Pain in soft tissues of limb documented in this encounter [facility] HealthcareEvaluation note* Diagnosis Surgery follow-up examination- Primary Follow-up examination, following unspecified surgery Hallux malleus, right Right foot pain Pain in soft tissues of limb Ulcer of great toe, right, limited to breakdown of skin (HCC) documented in this encounter [facility] HealthcareEvaluation note* Diagnosis Surgery follow-up examination- Primary Follow-up examination, following unspecified surgery Hallux malleus, right Ulcer of great toe, right, limited to breakdown of skin (HCC) Right foot pain Pain in soft tissues of limb [facility] - [facility]* Type Description Date [...] surgical Hx Hospitalization History acute gastroenteritis 04/30-05/01/18 [place] Other [facility] general Narrative - Reported* Type Description Date [...] Dr. Maynard. 1 Hospitalization History see above [facility] Other History [facility] - [facility] Other Hospital Discharge instructions Additional Instructions Continue your pain pills at home Return symptoms are worse [facility] Work Phone: Hospital Discharge instructions Additional Instructions Continue current meds Return if symptoms are [facility]University [facility] Work Phone: Reason for referral (narrative)No reason for referral information [facility]Tr[facility] Work Phone: Chief Complaint and Reason for [...] History of DVT (deep vein thrombosis) No vember th, 2024 8:29am History of pulmonary embolism June 242023 [...] of DVT (deep vein thrombosis) [facility] 2023 8:24am History of pulmonary embolism July 242023 8:24am History of DVT (deep vein thrombosis) [facility] 2024 8:43am History of pulmonary embolism September 092024 8:43am Chief Complaint Admit Date INR Follow Up August 03, 2024 8:24am INR f/u October 05, 2024 8:36am Reason for Visit Admit Date History of DVT (deep vein thrombosis) De 2023 8:24am History of pulmonary embolism July 242023 8:24am History of DVT (deep vein thrombosis) [facility] 2024 8:43am History of pulmonary embolism September 092024 8:43am History of DVT (deep vein thrombosis) [facility] 2024 8:36am History of pulmonary embolism September 242024 8:36am Chief Complaint Admit Date INR Follow Up August 03, 2024 8:24am INR f/u October 05, 2024 8:36am 3 month Follow up/colitis October 07, 2024 9:04am Reason for Visit Admit Date History of DVT (deep vein thrombosis) [facility] 8:24am History of pulmonary embolism July 242023 8:24am History of DVT (deep vein thrombosis) [facility] 2024 8:43am History of pulmonary embolism September 092024 8:43am History of DVT (deep vein thrombosis) [facility] 2024 8:36am History of pulmonary embolism September 242024 8:36am Crohn's colitis October 07, 2024 9:04am Chief Complaint Admit Date INR f/u October 05, 2024 8:36am 3 month Follow up/colitis October 07, 2024 9:04am INR f/u November 02, 2024 8:5 1am Reason for Visit Admit Date History of DVT (deep vein thrombosis) [facility] 2024 8:43am History of pulmonary embolism September 092024 8:43am History of DVT (deep vein thrombosis) [facility] 2024 8:36am History of pulmonary embolism September 242024 8:36am Crohn's colitis October 07, 2024 9:04am History of DVT (deep vein thrombosis) [facility] 2024 8:51am History of pulmonary embolism October 8:51am Chief Complaint Admit Date INR f/u October 05, 2024 8:36am 3 month Follow up/colitis October 07, 2024 9:04am INR f/u November 02, 2024 8:5 1am INR f/u November 30, 2024 8:37 am Reason for Visit Admit Date History of DVT (deep vein thrombosis) [facility] 2024 8:43am History of pulmonary embolism September 092024 8:43am History of DVT (deep vein thrombosis) [facility] 2024 8:36am History of pulmonary embolism September 242024 8:36am Crohn's colitis October 07, 2024 9:04am History of DVT (deep vein thrombosis) [facility] 2024 8:51am History of pulmonary embolism October 8:51am History of DVT (deep vein thrombosis) [facility] 2024 8:37am History of pulmonary embolism November 30, 2024 8:37am Chief Complaint Admit Date INR f/u October 05, 2024 8:36am 3 month Follow up/colitis October 07, 2024 9:04am INR f/u November 02, 2024 8:5 1am INR f/u November 30, 2024 8:37 am R92.8 December 07, 2024 8:3 4am Reason for Visit Admit Date History of DVT (deep vein thrombosis) [facility] 2024 8:36am History of pulmonary embolism September 242024 8:36am Crohn's colitis October 07, 2024 9:04am History of DVT (deep vein thrombosis) [facility] 2024 8:51am History of pulmonary embolism October 8:51am History of DVT (deep vein thrombosis) [facility] 2024 8:37am History of pulmonary embolism November 30, 2024 8:37am Chief Complaint Admit Date INR f/u November 02, 2024 8:5 1am INR f/u November 30, 2024 8:37 am R92.8 December 07, 2024 8:3 4am Reason for Visit Admit Date History of DVT (deep vein thrombosis) [facility] 2024 8:51am History of pulmonary embolism October [...] up for her ER visit at the [facility] on 12/[facility]. She was seen for [...] w/exam Reason Comments Medicare Annual Wellness Visit Jesus munoz Patient presents today for an annual medicare wellness and 3 month follow up. BMP is in chart for review. Reason Comments Procedure Reason Comments Pain Specialty Diagnoses / Procedures Referred By Jamesmilena munoz Referred To Contact Orthopaedic Surgery Diagnoses Acute pain of left knee Primary osteoarthritis of left knee Venita Marques, COLLISION MECHANIC [address] [place] [address] Phone: tel: fax: Caro Hugo PA Phone: tel: fax: Referral ID Status Reason Start Date Expiration Date V isits Requested Visits Authorized [id number] Closed Specialty Services Required 02/13/2025 08/12/2025 1 [...] 2024 End: November 02, 2024 Kiersten Qureshi [facility] Attending Provider Active Start: November 02, 2024 [...] Provider, Attending P rovider Active Team Status: Inactive Member Role Status Leesa Herzog DO Primary Care Provider Active Radha Verduzco DO Attending Provider Active Team Status: Inactive Member Role Status Leesa Herzog DO Primary Care Provider Active Edmond Branham MD Emergency Provider Active Team Status: Inactive Member Role Status Leesa Herzog DO Primary Care Provider Active Tang Mcclellan [...] 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 Primary Care Provider Active Dub Room Engineer Relationship Specialty Start Date End Date Kristopher Herzog DO [address] [place] [address] PCP - Devoted 12/22/21 Kristopher Herzog DO [address] [place] [address] PCP - General Internal Medicine 12/30/22 Team Status: Inactive Member Role Status Dates Kristopher Herzog DO Primary Care Provider Active Start: December 07, 2023 End: December 07, 2023 Sandy L Amber , DO Attending Provider Active St art: [...] 28, 2023 End: December 28, 2023 Sandy L Ly , DO Attending Provider Active St art: [...] June 06, 2024 End: June 06, 2024 Dub Room Engineer Relationship Specialty Start Date End Date Kristopher Herzog DO [address] [place] [address] PCP - Devoted 12/22/21 Kristopher Herzog DO [address] [place] [address] PCP - General Internal Medicine 12/30/22 Dub Room Engineer Relationship Specialty Start Date End Date Kristopher Herzog DO [address] [place] [address] PCP - Devoted 12/22/21 Kristopher Herzog DO [address] [place] [address] PCP - General Internal Medicine 12/30/22 Team [...] July 04, 2024 End: July 04, 2024 Dub Room Engineer Relationship Specialty Start Date End Date Kristopher Herzog DO [address] [place] [address] PCP - Devoted 12/22/21 08/23/24 Kristopher Herzog DO [address] [place] [address] PCP - General Internal Medicine 12/30/22 Dub Room Engineer Relationship Specialty Start Date End Date Kristopher Herzog DO [address] [place] [address] PCP - Devoted 12/22/21 08/23/24 Kristopher Herzog DO [address] [place] [address] PCP - General Internal Medicine 12/30/22 Dub Room Engineer Relationship Specialty Start Date End Date Kristopher Herzog DO [address] [place] [address] PCP - Devoted 12/22/21 Kristopher Herzog DO [address] [place] [address] PCP - General Internal Medicine 12/30/22 Dub Room Engineer Relationship Specialty Start Date End Date Kristopher Herzog DO [address] [place] [address] PCP - Devoted 12/22/21 Kristopher Herzog DO [address] [place] [address] PCP - General Internal Medicine 12/30/22 Team [...] September 09, 2024 End: September 09, 2024 Dub Room Engineer Relationship Specialty Start Date End Date Kristopher Herzog DO [address] [place] [address] PCP - General Internal Medicine 12/30/22 Team Status: Inactive Member Role Status Dates Kristopher Herzog DO Primary Care Provide r, Referring Provider Active Start: October 05, 2024 End: October 05, 2024 Kiersten Qureshi [facility] Attending Provider Active Start: October 05, 2024 End: October 05, 2024 Team Status: Inactive Member Role Status Dates Kristopher Herzog DO Primary Care Provider Active Start: October 07, 2024 End: October 07, 2024 Sandy Clark DO Attending Provider Active St art: October 07, 2024 End: October 07, 2024 Dub Room Engineer Relationship Specialty Start Date End Date Kristopher Herzog DO [address] [place] [address] PCP - General Internal Medicine 12/30/22 Dub Room Engineer Relationship Specialty Start Date End Date Kristopher Herzog DO [address] [place] [address] PCP - General Internal Medicine 12/30/22 Dub Room Engineer Relationship Specialty Start Date End Date Kristopher Herzog DO [address] [place] [address] PCP - General Internal Medicine 12/30/22 Dub Room Engineer Relationship Specialty Start Date End Date Kristopher Herzog DO [address] [place] [address] PCP - General Internal Medicine 12/30/22 Dub Room Engineer Relationship Specialty Start Date End Date Kristopher Herzog DO [address] [place] [address] PCP - General Internal Medicine 12/30/22 Dub Room Engineer Relationship Specialty Start Date End Date Kristopher Herzog DO [address] [place] [address] PCP - General Internal Medicine 12/30/22 Dub Room Engineer Relationship Specialty Start Date End Date Kristopher Herzog DO [address] [place] [address] PCP - General Internal Medicine 12/30/22 Dub Room Engineer Relationship Specialty Start Date End Date Kristopher Herzog DO [address] [place] [address] PCP - General Internal Medicine 12/30/22 Dub Room Engineer Relationship Specialty Start Date End Date Kristopher Herzog DO [address] [place] [address] PCP - General Internal Medicine 12/30/22 Team [...] 04, 2025 End: January 04, 2025 Kiersten Qrueshi RPH Attending Provider Active Start: January 04, [...] 2025 End: February 09, 2025 Kiersten Qureshi RPH Attending Provider Active Start: February 09, 2025 End: February 09, 2025 Team Status: Inactive Member Role Status Dates Kristopher Herzog DO Primary Care Provider Active Start: February 22, 2025 End: February 22, 2025 Kristopher Herzog DO Referring Provider Active St art: February 22, 2025 End: February 22, 2025 Tita Roberts PharmD Attending Provider Active Start: February 22, 2025 End: February 22, 2025 Dub Room Engineer Relationship Specialty Start Date End Date Kristopher Herzog DO [address] [place] [address] PCP - General Internal Medicine 12/30/22 Dub Room Engineer Relationship Specialty Start Date End Date Kristopher Herzog DO [address] [place] [address] PCP - General Internal Medicine 12/30/22 Dub Room Engineer Relationship Specialty Start Date End Date Kristopher Herzog DO [address] [place] [address] PCP - General Internal Medicine 12/30/22 Dub Room Engineer Relationship Specialty Start Date End Date Kristopher Herzog DO [address] [place] [address] PCP - General Internal Medicine 12/30/22 Team [...] March 13, 2025 End: March 13, 2025 Dub Room Engineer Relationship Specialty Start Date End Date Kristopher Herzgo DO [address] [address] PCP - General Internal Medicine 12/30/22 Team Status: Inactive Member Role Status Dates Kritsopher Herzog DO Primary Care Provider Active Start: March 17, 2025 End: March 17, 2025 Kristopher Herzog DO Referring Provider Active St art: March 17, 2025 End: March 17, 2025 Kiersten Qureshi [facility] Attending Provider Active Start: March 17, 2025 End: March 17, 2025 Dub Room Engineer Relationship Specialty Start Date End Date Karlos Morgan MD [address] [facility] [place] [address] PCP - General Family Medicine 03/17/25 Dub Room Engineer Relationship Specialty Start Date End Date Karlos Morgan MD [address] [facility] [place] [address] PCP - General Family Medicine 03/17/25 Dub Room Engineer Relationship Specialty Start Date End Date Karlos Morgan MD [address] [facility] [place] [address] PCP - General Family Medicine 03/17/25 Dub Room Engineer Relationship Specialty Start Date End Date Karlos Morgan MD [address] [place] [address] PCP - General Family Medicine 03/17/25 Goals (unrecognized section and content) Goals may be documented in a n alternate section INFORMATION SOURCE (unrecogn ized section and content) DATE CREATED AUTHOR 12/18/2022 [facility] DATE CREATED AUTHOR AUTHOR'S ORGANIZ ATION 12/09/2024 [facility] DATE CREATED AUTHOR AUTHOR'S ORGANIZ ATION 04/06/2025 [facility] FOR RECORDS PERTAINING TO PATIENTS WHO [...] BE BASED ON THE PRIMARY CLINICAL RECORDS. [employer] provides no warranty or guarantee of the accuracy or completeness of information in this document.
--- NOTE | 2025-04-11 14:12 | PM.STRESS ---
Stress Test Stress Test Allergies Allergy/AdvReac Type Severity Reaction Status Date / Time No Known Drug Allergies Allergy Verified 03/24/25 21:26 Requesting physician: Elmira Fajardo Procedure: Lexiscan pharmacological stress test General Information: Reason for Stress Test: [Chest pain] Cardiac History and Risk Factors: [HTN, diabetes] Resting 12 - Lead Electrocardiogram: Possible ectopic atrial rhythm Poor R wave progression; cannot rule out anterior infarct age indeterminate Abnormal resting ECG Stress Test: Protocol: [Lexiscan stress test] Exercise Capacity: [N/A] Blood Pressure Response: [N/A] Rhythm: [Sinus] ST - Response: [No ST T wave abnormalities] Patient Response: [No chest pain] Interpretation: 1. No ischemic EKG changes on Lexiscan stress test 2. Nuclear images are to be read, interpreted and reported seperately
== END 2025-04-11 09:58 | disposition home or self-care (01) ==
LOC: NM 09:57
PROVIDERS: Family Provider Family Medicine; PCP Family Medicine; Visit Provider Family Medicine
DX: R07.9 Chest pain, unspecified (principal)
CPT/HCPCS: 78452; 93017; A9500; J2785

== ENCOUNTER 2025-05-16 11:33 | Outpatient (OUT) | payer MEDICARE, SELFPAY ==
--- NOTE | 2025-05-16 11:40 | XR_ITS ---
The [address] [address] Patient Name: ANDREA GLEZ MRN: [id number] date: 1950 Sex: F Assigned Patient Location: [facility] Current Patient Location: [facility] Accession/Order Number: [id number] Exam Date: 05/16/2025 11:50 Report Date: 05/16/2025 12:15 At the request of: ANA MERCER MD Procedure: XR thoracic spine 3V CLINICAL HISTORY: Mid back pain for the past 5 days. No injury. PA AND LATERAL CHEST: COMPARISON: CT 03/31/2025 There is no focal parenchymal consolidation, effusion or pneumothorax. The cardiac, hilar and mediastinal silhouettes are within normal limits. There is no vascular congestion. The visualized bony thorax is intact. There is levoscoliotic curvature and degenerative changes at the spine. XR/XR thoracic spine 3V IMPRESSION: NO ACUTE CARDIOPULMONARY ABNORMALITY. THORACIC SPINE - 2 views COMPARISON: CT 03/31/2025 AP and lateral views were obtained. There is dextroscoliotic curvature. The pedicles are intact. There is no displacement on the lateral views. The disc spaces are maintained. There is multilevel endplate spurring. No paraspinal soft tissue abnormalities are present. IMPRESSION: SCOLIOSIS AND DEGENERATIVE CHANGES Impression dictated by: Denise Wallace M.D. 05/16/2025 12:15 PM Dictation Location: [place] [address] Electronically authenticated by: [id number] Y Date: 05/16/2025 12:15
--- NOTE | 2025-05-16 11:40 | XR_ITS ---
The [address] [address] Patient Name: ANDREA GLEZ MRN: [id number] date: 1950 Sex: F Assigned Patient Location: [facility] Current Patient Location: [facility] Accession/Order Number: [id number] Exam Date: 05/16/2025 11:50 Report Date: 05/16/2025 12:15 At the request of: ANA MERCER MD Procedure: XR thoracic spine 3V CLINICAL HISTORY: Mid back pain for the past 5 days. No injury. PA AND LATERAL CHEST: COMPARISON: CT 03/31/2025 There is no focal parenchymal consolidation, effusion or pneumothorax. The cardiac, hilar and mediastinal silhouettes are within normal limits. There is no vascular congestion. The visualized bony thorax is intact. There is levoscoliotic curvature and degenerative changes at the spine. XR/XR chest 2V IMPRESSION: NO ACUTE CARDIOPULMONARY ABNORMALITY. THORACIC SPINE - 2 views COMPARISON: CT 03/31/2025 AP and lateral views were obtained. There is dextroscoliotic curvature. The pedicles are intact. There is no displacement on the lateral views. The disc spaces are maintained. There is multilevel endplate spurring. No paraspinal soft tissue abnormalities are present. IMPRESSION: SCOLIOSIS AND DEGENERATIVE CHANGES Impression dictated by: Denise Wallace M.D. 05/16/2025 12:15 PM Dictation Location: [place] [address] Electronically authenticated by: [id number] Y Date: 05/16/2025 12:15
--- OUTSIDE RECORDS SUMMARY | 2025-05-16 11:41 | XMS_ITS | CCD ---
Author Organization [facility] Care Team Providers Care Topstitcher Zigzag Name Role Phone Lauren Vance Unavailable Antonio Thompson Unavailable Tang Mcclellan Unavailable [phone] DO Kristopher Herzog Primary Care Provider [phone] MD Tang Mcclellan Attending Provider IRAM Molina Attending Provider DO Kristopher Herzog Attending Provider DO Kristopher Herzog Primary Care Provider [phone] DO Kristopher Herzog Attending Provider DO Radha Verduzco Attending Provider DO Kristopher Herzog Primary Care Provider [phone] IRAM Molina Attending Provider DO Kirstopher Herzog Attending Provider [phone] DO Radha Verduzco Attending Provider MD Edmond Branham Emergency Provider Olu Rene Unavailable DO Kristopher Herzog Primary Care Provider DO Kristopher Herzog Attending Provider [phone] Kiersten Qureshi Unavailable DO Kristopher Herzog Primary Care Provider [phone] MD Edmond Branham Emergency Provider DO Kristopher Herzog Attending Provider DO Radha Verduzco Attending Provider [phone] DO Kristopher Herzog Attending Provider FAITH Lobo Emergency Provider MD Rosalina Shelton Admit Provider [phone] MD Rosalina Shelton Attending Provider DO Chuy Kristopher Primary Care Provider DO Gabriel Castaneda Attending Provider DO Kristopher Herzog Primary Care Provider [phone] DO Kristopher Herzog Attending Provider [phone] DO Radha Verduzco Attending Provider NO FAMILY, PHYSICIAN Primary Care Provider Unava ilable Tita Roberts Unavailable Kristopher Herzog DO Unavailable [phone] Kristopher Herzog DO Primary Care Provider DO Kristopher Herzog Primary Care Provider DO Kristopher Herzog Attending Provider DO Chuy Kristopher Primary Care Provider [phone] DO Kristopher Herzog Attending Provider DO Radha Verduzco Attending Provider Ly, DO Sandy L Attending Provider DO Kristopher Herzog Primary Care Provider DO Johnny Keen Emergency Provider DO Kristopher Herzog Primary Care Provider DO Chuy Kristopher Primary Care Provider [phone] Kristopher Herzog DO Unavailable Kristopher Herzog Primary Care Unavailable Ly, Sandy L Admitting Unavailable Ly, Sandy L Attending Unavailable Johnny Keen Admitting Unavailable Johnny Keen Attending Unavailable Kristopher Herzog Primary Care Unavailable Radha Verduzco Admitting Unavailable Radha Verduzco Attending Unavailable Kristopher Herzog Primary Care Unavailable Kristopher Herzog DO Primary Care Provider [phone] Radha Verduzco DO Attending Provider Kristopher Herzog DO Primary Care Provider Kristopher Herzog DO Referring Provider Kiersten Qureshi RPH Attending Provider Toyin Roberts PharmD, Tita Attending Provider Kristopher Batista DO Primary Care Provider [phone] Kristopher Herzog DO Referring Provider [phone] Kiersten Qureshi RPH Attending Provider Toyin Morgan MD, Karlos Vargas Primary Care Provider [phone] KRISTOPHER HERZOG Attending Unavailable KRISTOPHER HERZOG Referring Unavailable DINAH VENITA Ephraim Attending Unavailable DIDION, VENITA L Referring Unavailable DIDION, VENITA L Referring Unavailable MARLON BRANHAM Attending Unavailable DIDION, VENITA L Attending Unavailable DIDION, VENITA L Referring Unavailable DIDION, VENITA L Referring Unavailable KRISTOPHER HERZOG Attending Unavailable RADHA VERDUZCO Attending Unavailable KRISTOPHER HERZOG Attending Unavailable MARLON BRANHAM Attending Unavailable DIDION, VENITA L Attending Unavailable DIDION, VENITA L Referring Unavailable YONAS, MARLON H Attending Unavailable LUBA, RADHA H Attending Unavailable ADAM RODRIGUEZ Attending Unavailable MARLON BRANHAM Attending Unavailable MARLON BRANHAM Attending Unavailable MARLON BRANHAM H Attending Unavailable CARO HUGO Attending Unavailable DIDION VENITA L Referring Unavailable YONAS, MARLON H Attending Unavailable YONAS, MARLON H Attending Unavailable AROLDO BRANHAMANDRA H Attending Unavailable AROLDO BRANHAMANDRA H Attending Unavailable Medications Current Medications Medication Drug Class(es) Dates Sig (Normalized) Sig (Original) acetaminophen 500 mg oral tablet (20 sources) Start: 05-08-2021 take 2 tablets by mouth every six hours as needed for pain take 2 tablets by ks ut twice daily as needed for pain acetaminophen (Tylenol Extra Strength) 5 00 MG tablet Take 1,000 mg by mouth 2 (two) times a day as needed for mild pain. Active Tylenol Active acetaminophen 325 mg / HYDROcodone bitartrate 5 mg oral tablet (20 sources) Opioid Agonist Start: 03-02-2025 End: 03-07-2025 take 1 tablet by mouth every six hours for pain HYDROcodone-acetaminophen (Lambert) 5-325 MG tablet Indications: Hallux malleus, right , Right foot pain Take 1 tablet by mouth every 6 (six) hours if needed for severe pain for up to 5 days 20 tablet 03/02/2025 03/07/2025 Active Start: 02-16-2025 End: 02-21-2025 take 1 tablet by mouth every six hours for pain HYDROcodone-acetaminophen (Lambert) 5-325 MG tablet Indications: Hallux malleus, right [...] EVERY 4-6 HOURS as needed for pain 05 26February 09, 2024 October 07, 2024 10:08am Start: [...] six hours as needed for pain Hydrocodone-Acetaminophen (Lambert) 5-325 mg tablet Discontinued 1 TAB PO [...] 2024 11:36am apixaban 5 mg oral tablet (8 sources) Factor Xa Inhibitor Start: 03-16-2025 take [...] (20 sources) Corticosteroid Betamethasone Va lerate Active celecoxib 200 mg oral capsule (2 sources) Nonsteroidal Anti-inflammatory Drug Start: 04-20-2025 End: 05-20-2025 take 1 capsule by mouth in the morning celecoxib (CeleBREX) 200 MG capsule Indications: Posterior tibial tendonitis, right Take 1 capsule (200 mg) by mouth in the morning and 1 capsule (200 mg) before bedtime. 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 ([facility]) USE I DEVICE CONTINUOUSLY 1 each 3 11/01/2024 Active Start: 11-01-2024 Continuous Glu cose Supervisor Waterproofing (FreeStyle Carline 3 Palisade) device Indications: Diabetic peripheral neuropathy associated with type 2 diabetes mellitus (CMS/HCC) , 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 of insulin (CMS/HCC) USE I DEVICE CONTINUOUSLY 1 each 3 11/01/2024 Active Start: 09-06-2024 End: 09-06-2025 Continuous Glucose Supervisor Waterproofing (FreeStyle Carline 3 Palisade) device Indications: Diabetic peripheral neuropathy associated with type 2 diabetes mellitus (CMS/HCC) , 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 of insulin (CMS/HCC) 1 Device continuously 1 each 09/06/2024 09/06/2025 Active Continuous Glucose Sensor (FreeStyle Carline 3 Sensor) misc (20 sources) Start: 09-06-2024 End: 09-06-2025 Continuous Glucose Sensor (FreeStyle Carline 3 Sensor[place] [facility] [place]ications: Diabetic peripheral neuropathy associated with type 2 diabetes mellitus (HCC) , 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 of insulin (HCC) 1 Device every 14 (fourteen) days 7 each 3 09/06/2024 09/06/2025 Active Start: 09-06-2024 End: 09-06-2025 Continuous Glucose Sensor (F reeStyle Carline 3 Sensor) [facility] [place]ications: Diabetic peripheral neuropathy associated with type 2 diabetes mellitus (CMS/HCC) , 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) 1 Device [...] Mix 75/25 KwikPen (5 sources) Start: 05-24-20 hydrocortisone acetate 25 mg rectal suppository (20 sources) Corticosteroid Start: 06-29-20 End: 10-07-19 insulin aspart protamine, human 70 unt/ml / insulin aspart, human 30 unt/ml injectable suspension (20 sources) Insulin Analog Start: 01-31-20 25 insulin aspart protamine-insulin aspart (NovoLOG MIX 70/30) (70-30) 100 UNIT/ML injection Indications: Type 2 diabetes mellitus with diabetic polyneuropathy, with long-term current use of insulin (HCC) Inject 14 Units under the skin in [...] polyneuropathy, with long-term current use of insulin ([facility]) Inject 12 Units under [...] (Dr/Ec) Discontinued 40 MG PO Twice daily December 15, 2022 12:00am November 09, 2023 [...] Start: 01-09-2022 take [address] [facility] every six hours sulfaSALAzine 500 [...] DAYS Start: 11-07-2021 take 1 tablet by barry [...] dose Start: 10-03-2024 End: 10-03-2024 triamcinolone acetonide (Barxton alog-40) injection 40 mg Start: 10-03-2024 End: [...] 2 tablets by mouth once daily Vitamins A,C,L-Vzqm-Xydcpk (Preservision Areds) 7,160 unit- 113 mg-100 unit [...] times daily as needed for back spasms 50 June 19, 2017 12:00am January 21, 2018 [...] 08, 2021 10:21am take [address] [facility] every twelve hours Gabapentin 100 MG [...] tablet (20 sources) alpha-Adrenergic Agonist Start: 01-23-20 18 End: 08-06-20 19 take 1 tablet by mouth twice daily Midodrine 2.5 mg tablet Discontinued 2.5 MG PO Twice daily January 22, 2018 12:00am August 06, 2019 1:28pm Start: 01-06-2018 take 1 tablet by [facility] every eight hours Midodrine HCl 2.5 MG [...] 2022 11:00pm November 09, 2023 9:07am nystatin [id number] unt/ml topical cream (20 sources) Polyene Antifungal [...] aftercare (20 sources) Drug therapy finding; 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: [senior care (current) use of 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s] Episodic Other aftercare (20 sources) Encounter for therapeutic drug level monitoring; 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: [Medication monitoring encounter Z51.81] Onset: 1 Resolved: 2 Episodic Other aftercare (10 sources) Surgical follow-up; 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: [Encounter for follow-up [...] Episodic Other connective tissue disease (2 sources) Tendinitis of right posterior tibial tendon; 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: [Posterior tibial tendinitis, right leg] 04-20-2025 Episodic Other diseases of bladder and urethra [...] sources) Long-term current use of insulin; 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 Hammertoes to the lesser digits. [facility] Radiology Study observation (narrative) [facility] No Panel InformationOrdered By: Tita Roberts on 02-22-2025 Bedside INR (LAB) 3.8 [facility] XR Foot - right 3 [facility] Result: Three views of the right foot: AP, MO, LAT were performed today in the office. Radiographs were read by myself and demonstrate: No evidence of acute fracture or dislocation. 1st MPJ arthrodess right with enlarged distal medial proximal phalanx and lateral deviation of the hallux at the IPJ. [facility] Radiology Study observation (narrative) [facility] XR KNEE 3 VIEWS LEFTon 02-13 XR [...] signed and approved by the interpreting Radiologist. [facility] Radiology Study observation (narrative) [facility] XR Knee - left 3 ViewsOrdere d By: Edmond Morel on 02-13-2025 [facility] Work Phone: No Panel InformationOrdered By: Kiersten Qureshi on 02-09-2025 Bedside INR (LAB) 3.2 [facility] No Panel Informationon 02-01 Bedside INR (LAB) 4.0 [facility] ALL CBC WITH AUTO DIFFon BASOPHILS ABSOLUTE AUTO 0 [facility] Basophils/100 WBC (Bld) 0.6 % 0.2 - 2.0 % [facility] Eosinophils/100 WBC (Bld) 2.6 % 0.9 - 7.0 % [facility] Erythrocyte distribution width (RBC) [Ratio] 12.3 % 11.0 - 15.0 % [facility] Hematocrit (Bld) [Volume fraction] 37.5 % 36.0 - 48.0 % [facility] Hemoglobin (Bld) [Mass/Vol] 12.9 g/dL 12.0 - 16.0 g/dL [facility] IMMATURE GRANULOCYTES ABS AUTO 0.01 [facility] Immature granulocytes/100 WBC (Bld) 0.2 % 0.0 - 0.5 % [facility] Interpretation and review of laboratory results Abnormal [facility] LYMPHOCYTES ABSOLUTE AUTO 1.2 [facility] Lymphocytes/100 WBC (Bld) 24 % 20.5 - 60.0 % [facility] MCH (RBC) [Entitic mass] 33 pg 26.7 - 34.0 pg [facility] MCHC (RBC) [Mass/Vol] 34.4 g/dL 29.9 - 35.2 g/dL [facility] MCV (RBC) [Entitic vol] 95.9 fL 81.0 - 99.0 fL [facility] MONOCYTES ABSOLUTE AUTO 0.4 [facility] Monocytes/100 WBC (Bld) 8.3 % 1.7 - 12.0 % [facility] NEUTROPHILS ABSOLUTE AUTO 3.3 [facility] Neutrophils/100 WBC (Bld) 64.3 % 43.0 - 75.0 % [facility] Platelet mean volume (Bld) [Entitic vol] 10.8 fL 9.5 - 13.5 fL [facility] EO # 0.1 [facility] PLT 223 [facility] RBC 3.91 Low [facility] WBC 5.1 [facility] ALL BASIC METABOLIC PANELon 01-05-2025 Anion gap [Moles/Vol] 12.2 mmol/L [facility] Calcium [Mass/Vol] 8.9 mg/dL 8.5 - 10. 1 mg/dL [facility] Chloride [Moles/Vol] 105 mmol/L 98 - 10 7 mmol/L [facility] CO2 [Moles/Vol] 27 mmol/L 21.0 - 32.0 mmol/L [facility] Creatinine [Mass/Vol] 1.01 mg/dL 0.55 - 1.02 mg/dL [facility] GFR/1.73 sq M.predicted CKD-EPI (S/P/Bld) [Vol rate/Area] >60 >=60 mL/min/1.7 3m 2 [facility] Glucose [Mass/Vol] 143 mg/dL High 74 - 106 mg/dL [facility] Interpretation and review of laboratory results Abnormal [facility] Potassium [Moles/Vol] 4.2 mmol/L 3.5 - 5.1 mmol/L [facility] Sodium [Moles/Vol] 140 mmol/L 136 - 145 mmol/L [facility] TBH EGFR-NON AF DUTCH 54 Low >=60 mL/min/1.7 3m 2 [facility] Urea nitrogen [Mass/Vol] 27 mg/dL High 7.0 - 18.0 mg/dL [facility] Urea nitrogen/Creatinine [Mass ratio] 26.7 mg/mg [facility] No Panel Informationon 01-04 Bedside INR (LAB) 2.7 [facility] MM diagnostic mammo BI w/CAD on 12-07-2024 MM diagnostic mammo BI w/CAD [facility] [address] [place] [address] Mammography Report Signed Patient: Nicol Frances MR#: [id number] 94 : 1950 Acct:[id number] Age/Sex: 74 / F Adm Date: 12/07/24 Loc: [place] Room: Type: [facility] Attending Dr: Radha Verduzco DO Ordering Provider: Radha Verduzco DO Date of Service: 12/07/24 Procedure(s): MM diagnostic mammo BI w/CAD Accession Number(s): ([id number]) MM/MM diagnostic mammo BI w/CAD: Yrly mamms [...] Leon Jr., D.O.12/07/2024 9:30 AM Dictation Location: [facility] Dictated By: Noe De Leon Jr, DO 12/07/2422 Signed By: 12/07/24 0930 Normal [facility] Mammography reportOrdered By : Noe De Leon on 12-07-2024 Diagnostic imaging study [facility] [address] [place] [address] Mammography Report Signed Patient: Nicol Frances MR#: [id number] : 1950 Acct:[id number] Age/Sex: 74 / F Adm Date: 5 Loc: [place] Room: Type: [facility] Attending Dr: Radha Verduzco DO Ordering Provider: Radha Verduzco DO Date of Service: 12/07/24 Procedure(s): MM diagnostic mammo BI w/CAD Accession Number(s): ([id number]) MM/MM diagnostic mammo BI w/CAD: Yrly mamms [...] Impression dictated by: Noe De Leon Jr., SeymourOOmari12/07/2024 9:30 AM Dictation Location: [facility] Dictated By: Noe De Leon Jr, DO 12/07/2422 Signed By: 12/07/24929 [facility] No Panel Informationon 11-30 Bedside INR (LAB) 2.[address] [facility] [address] ABDOMEN PELVIS W IV CONTR [...] Panel Informationon 11-02 Bedside INR (LAB) 2.[address] [facility] [address] HEAD WO IV CONTRASTon CT [...] Panel Informationon 10-05 Bedside INR (LAB) 2.5 [facility] No Panel Informationon 09-09 Bedside INR (LAB) 2.3 [facility] No Panel Informationon 08-03 Bedside INR (LAB) 2.0 [facility] No Panel Informationon 07-04 Bedside INR (LAB) 2.2 [facility] Comprehensive metabolic pane jimbo 06-18-2024 Albumin [Mass/Vol] 4.1 g/dL 3.8 - 4.8 g/dL [facility] ALP [Catalytic activity/Vol] 53 U/L [facility] ALT [Catalytic activity/Vol] 12 U/L [facility] AST [Catalytic activity/Vol] 16 U/L [facility] Bilirubin [Mass/Vol] 0.2 mg/dL 0.0 - 1 .2 mg/dL [facility] Calcium [Mass/Vol] 9.6 mg/dL 8.7 - 10. 3 mg/dL [facility] Chloride [Moles/Vol] 104 mmol/L 96 - 10 6 mmol/L [facility] CO2 [Moles/Vol] 22 mmol/L 20 - 29 mmol/L [facility] Creatinine [Mass/Vol] 0.93 mg/dL 0.57 - 1.00 mg/dL [facility] GFR/1.73 sq M.predicted among non-blacks MDRD (S/P/Bld) [Vol rate/Area] 65 mL/min/{1.73_m2} 59 - PINF mL/min/1.7 3 [facility] Globulin (S) [Mass/Vol] 2.7 g/dL 1.5 - 4.5 g/dL [facility] Glucose [Mass/Vol] 126 mg/dL High 70 - 99 mg/dL [facility] Potassium [Moles/Vol] 4.8 mmol/L 3.5 - 5.2 mmol/L [facility] Protein [Mass/Vol] 6.8 g/dL 6.0 - 8.5 g/dL [facility] Sodium [Moles/Vol] 139 mmol/L 134 - 144 mmol/L [facility] Urea nitrogen [Mass/Vol] 18 mg/dL 8 - 27 mg/dL [facility] Urea nitrogen/Creatinine [Mass ratio] 19 mg/mg 12 - 28 [facility] Hemoglobin a1c with eagon Average glucose Estimated from glycated hemoglobin (Bld) [Mass/Vol] 163 mg/dL [facility] HbA1c (Bld) [Mass fraction] 7.3 % High 4.8 - 5.6 % [facility] Comment on above: Prediabetes: 5.7 - 6 .4 Diabetes: >6.4 Glycemic control for adults with diabetes: <7.0 Lipid 1996 panelon Cholesterol [Mass/Vol] 140 mg/dL 100 - 199 mg/dL [facility] Cholesterol in HDL [Mass/Vol] 45 mg/dL 39 - PINF mg/dL [facility] Cholesterol in LDL [Mass/Vol] 70 mg/dL 0 - 99 mg/dL [facility] Cholesterol in VLDL [Mass/Vol] 25 mg/dL 5 - 40 mg/dL [facility] Triglyceride [Mass/Vol] 143 mg/dL 0 - 149 mg/dL [facility] No Panel Informationon 06-18 Interpretation and review of laboratory results Abnormal [facility] Performed at: 01 - [address] [id number] Orthodontic Band Maker: Juan Dunbar PhD, Phone: [phone] [facility] Specimen Status Reporton Clindamycin Disk diffusion (KB) [[facility]] Comment [facility] Comment on above: Ambig Abbrev CMP14 D efault Ambig Abbrev CMP14 Default A hand-written panel/profile was received from your office. In accordance with the [facility] Ambiguous Test Code Policy dated February 2003, we have completed your order by using the closest currently or formerly recognized AMA panel. We have assigned Comprehensive Metabolic Panel (14), Test Code #352491 to this request. If this is not the testing you wished to receive on this specimen, please contact the [facility] Client [facility]ical Services Department to clarify the test order. We appreciate your business. Ambig Abbrev LP Default Ambig Abbrev LP Default A hand-written panel/profile was received from your office. In accordance with the [facility] Ambiguous Test Code Policy dated February 2003, we have completed your order by using the closest currently or formerly recognized AMA panel. We have assigned Lipid Panel, Test Code #385395 to this request. If this is not the testing you wished to receive on this specimen, please contact the [facility]/Technical Services Department to clarify the test order. We appreciate your business. No Panel Informationon 06-06 Bedside INR (LAB) 2.1 [facility] No Panel Informationon 05-09 Bedside INR (LAB) 2.5 [facility] No Panel Informationon 04-14 Bedside INR (LAB) 2.5 [facility] No Panel Informationon 03-14 Bedside INR (LAB) 2.2 [facility] No Panel Informationon 02-16 Bedside INR (LAB) 2.1 [facility] Activated partial thrombopla stin time (aPTT) in platelet poor plasma by coagulation aOrdered By: Johnny Keen on 02-09-2024 aPTT Coag (PPP) [Time] 37.1 s High 25.1-36.5 [facility] Comment on above: A hematocrit value g reater than 55% may lead to inaccurate results in coagulation testing. Patients having hematocrit values >55% require a special collection tube for coagulation studies. Please contact the laboratory at [phone] for redraw instructions. Automated basophil %Ordered By: Johnny Keen on 02-09-2024 Basophils/100 WBC (Bld) 0.6 % Normal . [facility] Comment on above: Performed By: #### P T, PTT, BMP, CBC #### [facility] [address] [place] [address] Automated basophil countOrde red By: Johnny Keen on 02-09-2024 Basophils (Bld) [#/Vol] 0.0 10*3/uL Normal 0.0-0.2 [facility] Comment on above: Result Comment: PERF ORMED BY: [place] [address] PATHOLOGIST SALES ENGINEER [employer] GLENYS BARRON M.D. Performed By: #### P T, PTT, BMP, CBC #### [address] Automated blood monocyte cou ntOrdered By: Johnny Keen on 02-09-2024 Monocytes (Bld) [#/Vol] 0.5 10*3/uL Normal 0.0-0.8 [facility] Comment on above: Performed By: #### P T, PTT, BMP, CBC #### [facility] [address] [place] [address] Automated eosinophil %Ordere d By: Johnny Keen on 02-09-2024 Eosinophils/100 WBC (Bld) 0.4 % Normal . [facility] Comment on above: Performed By: #### P T, PTT, BMP, CBC #### [address] Automated eosinophil countOr dered By: Johnny Keen on 02-09-2024 Eosinophils (Bld) [#/Vol] 0.0 10*3/uL Normal 0.0-0.45 [facility] Comment on above: Performed By: #### P T, PTT, BMP, CBC #### [address] Automated epithelial cells c ount in urine sediment (number/area)Ordered By: Johnny Keen on 02-09-2024 Epithelial cells Auto (Urine sed) [#/Area] 10-19 [HPF] High 0-2 [facility] Automated monocyte %Ordered By: Johnny Keen on 02-09-2024 Monocytes/100 WBC (Bld) 8.0 % Normal . [facility] Comment on above: Performed By: #### P T, PTT, BMP, CBC #### [address] Automated neutrophil %Ordere d By: Johnny Keen on 02-09-2024 Neutrophils/100 WBC (Bld) 73.4 % Normal . [facility] Comment on above: Performed By: #### P T, PTT, BMP, CBC #### [address] Bacteria [Presence] in Urine by AutomatedOrdered By: Johnny Keen on 02-09-2024 Bacteria Auto Ql (U) 1+ [HPF] High None Seen [facility] Basic Metabolic Panelon 01-22 Creatinine Clr Calc Pharmacy 48.37 Normal [facility] Comment on above: Result Comment: PERF ORMED BY: [place] [address] PATHOLOGIST SALES ENGINEER [employer] GLENYS BARRON M.D. Performed By: #### P T, PTT, BMP, CBC #### [address] GFR/1.73 sq M.predicted MDRD (S/P/Bld) [Vol rate/Area] 59.856 mL/min/{1.73_m2} Normal [facility] Comment on above: Performed By: #### P T, PTT, BMP, CBC #### [address] Bilirubin Test strip Ql (U)O rdered By: Johnny Keen on 02-09-2024 Bilirubin Ql (U) Negative Negative [facility] CT head/brain wo conon 02-08 CT head/brain wo con [facility] Main [place] [address] [place] [address] CT Scan Report Signed Patient: Nicol Frances MR#: [id number] 94 : 1950 Acct:[id number] Age/Sex: 73 / F ADM Date: 02/09/24 Loc: ER Room: Type: [facility] ER Attending Dr: Copies to: Johnny Keen DO Ordering Provider: Johnny Keen DO Date of Service: 02/09/24 CT/CT cervical spine wo con: fall ([id number]) CT/CT head/brain wo con: fall CLINICAL DATA: [...] Denise Wallace M.D.02/09/2024 11:26 AM Dictation Location: [facility]-- Transcribed By: [facility] 02/09/24 1126 Dictated By: Denise Wallace MD 02/09/24 1114 Signed By: 02/09/24 1126 Normal [facility] CT lumbar spine wo olivia CT lumbar spine wo con [facility] Main [place] [address] [place] [address] CT Scan Report Signed Patient: Nicol Frances MR#: [id number] 94 : 1950 Acct:[id number] Age/Sex: 73 / F ADM Date: 02/09/24 Loc: ER Room: Type: [facility] ER Attending Dr: Copies to: Johnny [...] Denise Wallace M.D.02/09/2024 11:39 AM Dictation Location: [place] [address] Transcribed By: [facility] 02/09/24 1139 Dictated By: Denise Wallace MD 02/09/24 1126 Signed By: 02/09/24 1139 Normal [facility] Calcium [Mass/volume] in Ser um or PlasmaOrdered By: Johnny Keen on 02-09-2024 Calcium [Mass/Vol] 8.8 mg/dL Normal 8.6-10.3 [facility] Comment on above: Performed By: #### P T, PTT, BMP, CBC #### [address] Carbon dioxide, total [Moles /volume] in Serum or PlasmaOrdered By: Johnny Keen on 02-09-2024 CO2 [Moles/Vol] 22.0 mmol/L Normal 21.0-31.0 [facility] Comment on above: Performed By: #### P T, PTT, BMP, CBC #### [address] Casts typing in urine sedime nt by light microscopyOrdered By: Johnny Keen on 02-09-2024 Casts LM Nom (Urine sed) None seen [LPF] None Seen [facility] Chloride [Moles/volume] in S remi or PlasmaOrdered By: Johnny Keen on 02-09-2024 Chloride [Moles/Vol] 103 mmol/L Normal 98-107 [facility] Comment on above: Performed By: #### P T, PTT, BMP, CBC #### [address] Color of Urine by AutoOrdere d By: Johnny Keen on 02-09-2024 Color (U) Light-yellow Normal Yellow [facility] Comment on above: Order Comment: Name Collection Type:: Clean-Voided Midstream Performed By: #### C UU, ADDONUAPLUS #### [address] Complete Blood Count Auto Di ffon 02-09-2024 Mean Corpuscular HGB Conc 34.2 g/dL Normal 32.0-35.0 [facility] Comment on above: Performed By: #### P T, PTT, BMP, CBC #### [place] [address] [place] Monocytes/100 WBC (Bld) 17.76 % Normal 0.00-20.00 [facility] Comment on above: Performed By: #### P T, PTT, BMP, CBC #### [facility] [address] [place] [address] [place] NRBC% 0.0 /100{WBC} Normal 0-0.5 [facility] Comment on above: Performed By: #### P T, PTT, BMP, CBC #### [place] [address] [place] Creatinine [Mass/volume] in Serum or PlasmaOrdered By: Johnny Keen on 02-09-2024 Creatinine [Mass/Vol] 1.00 mg/dL Normal 0.60-1.20 [facility] Comment on above: Performed By: #### P T, PTT, BMP, CBC #### [place] [address] [place] Dipstick and Microscopicon 0 02-09-2024 Bacteria,Urine 1+ High None Seen [facility] Comment on above: Order Comment: Name Collection Type:: Clean-Voided Midstream Performed By: #### C UU, ADDONUAPLUS #### [place] [address] [place] Bilirubin,Urine Negative Normal Negative [facility] Comment on above: Order Comment: Name Collection Type:: Clean-Voided Midstream Performed By: #### C UU, ADDONUAPLUS #### [address] Glucose Ql (U) Normal Normal Normal [facility] Comment on above: Order Comment: Name Collection Type:: Clean-Voided Midstream Performed By: #### C UU, ADDONUAPLUS #### [place] [address] [place] Hyaline Casts,Urine None Seen Normal 0-8 [facility] Comment on above: Order Comment: Name Collection Type:: Clean-Voided Midstream Performed By: #### C UU, ADDONUAPLUS #### [place] [address] [place] Nitrite,Urine Negative Normal Negative [facility] Comment on above: Order Comment: Name Collection Type:: Clean-Voided Midstream Performed By: #### C UU, ADDONUAPLUS #### [address] Occult Blood,Urine 1+ High Negative [facility] Comment on above: Order Comment: Name Collection Type:: Clean-Voided Midstream Result Comment: PERF ORMED BY: [place] [address] PATHOLOGIST SALES ENGINEER [employer] GLENYS BARRON M.D. Performed By: #### C UU, ADDONUAPLUS #### [address] Other Casts,Urine None Seen Normal None Seen [facility] Comment on above: Order Comment: Name Collection Type:: Clean-Voided Midstream Result Comment: PERF ORMED BY: [place] [address] PATHOLOGIST SALES ENGINEER [employer] GLENYS BARRON M.D. Performed By: #### C UU, ADDONUAPLUS #### [address] Protein,Urine Negative Normal Negative [facility] Comment on above: Order Comment: Name Collection Type:: Clean-Voided Midstream Performed By: #### C UU, ADDONUAPLUS #### [address] RBC,Urine None Seen Normal 0-4 [facility] Comment on above: Order Comment: Name Collection Type:: Clean-Voided Midstream Performed By: #### C UU, ADDONUAPLUS #### [place] [address] [place] Specificy [place],Urine 1.014 Normal 1.001-1.03 0 [facility] Comment on above: Order Comment: Name Collection Type:: Clean-Voided Midstream Performed By: #### C UU, ADDONUAPLUS #### [place] [address] [place] Squamous Epithelial Cell,Urine 10-19 High 0-2 [facility] Comment on above: Order Comment: Name Collection Type:: Clean-Voided Midstream Performed By: #### C UU, ADDONUAPLUS #### [facility] [address] [place] [address] Urobilinogen,Urine Normal Normal Normal [facility] Comment on above: Order Comment: Name Collection Type:: Clean-Voided Midstream Performed By: #### C UU, ADDONUAPLUS #### [facility] [address] [place] [address] WBC,Urine 20-49 High 0-4 [facility] Comment on above: Order Comment: Name Collection Type:: Clean-Voided Midstream Performed By: #### C UU, ADDONUAPLUS #### [address] ECG 12 lead ECGon 02-09-2024 ECG 12 lead ECG [facility] Main [place] [address] [place] [address] Electrocardiograph Report Signed Patient: Nicol Frances MR#: [id number] 94 : 1950 Acct:[id number] Age/Sex: 73 / F ADM Date: 02/09/24 Loc: ER Room: Type: [facility] ER Attending Dr: Ordering Provider: Johnny Keen [...] was found Confirmed by Johnny Keen DO ([id number]) on 02/09/2024 3:32:04 PM Referred By: Electronically Signed By:Johnny Keen DO Transcribed By: MUS Signed By Johnny Keen DO 4 1532 Normal [facility] Erythrocyte distribution wid th [Ratio] by Automated countOrdered By: Johnny Keen on 02-09-2024 Erythrocyte distribution width (RBC) [Ratio] 14.1 % Normal 11.9-15.3 [facility] Comment on above: Performed By: #### P T, PTT, BMP, CBC #### [facility] [address] Erythrocytes [#/area] in Uri ne sediment by Automated countOrdered By: Johnny Keen on 02-09-2024 RBC Auto (Urine sed) [#/Area] None seen [HPF] 0-4 [facility] Erythrocytes [#/volume] in B lood by Automated countOrdered By: Johnny Keen on 02-09-2024 RBC (Bld) [#/Vol] 3.73 10*6/uL Normal 3.60-5.00 [facility] Comment on above: Performed By: #### P T, PTT, BMP, CBC #### [facility] [address] [place] [address] [place] Glucose [Mass/volume] in Ser um or PlasmaOrdered By: Johnny Keen on 02-09-2024 Glucose [Mass/Vol] 218 mg/dL High 70-100 [facility] Comment on above: ADA recommended refe rence rangeRandom Glucose Reference Range is dependent on time and content of last meal. Glucose of more than 200 mg/dL in a nonstressed, ambulatory subject supports the diagnosis of Diabetes Mellitus. Result Comment: [place] om Glucose Reference Range is dependent on time and content of last meal. Glucose of more than 200 mg/dL in a nonstressed, ambulatory subject supports the diagnosis of Diabetes Mellitus. ADA recommended reference range Performed By: #### P T, PTT, BMP, CBC #### [facility] [address] [place] [address] [place] Glucose [Mass/volume] in Uri ne by Test stripOrdered By: Johnny Keen on 02-09-2024 Glucose Test strip (U) [Mass/Vol] Normal mg/dL Normal [facility] Hematocrit [Volume Fraction] of Blood by Automated countOrdered By: Johnny Keen on 02-09-2024 Hematocrit (Bld) [Volume fraction] 36.4 % Normal 34.0-46.4 [facility] Comment on above: Performed By: #### P T, PTT, BMP, CBC #### [facility] [address] Hemoglobin Test strip Ql (U) Ordered By: Johnny Keen on 02-09-2024 Hemoglobin Ql (U) 1+ High Negative [facility] Hemoglobin [Mass/volume] in BloodOrdered By: Johnny Keen on 02-09-2024 Hemoglobin (Bld) [Mass/Vol] 12.4 g/dL Normal 11.8-15.4 [facility] Comment on above: Performed By: #### P T, PTT, BMP, CBC #### [facility] [address] [place] [address] INR in Platelet poor plasma by Coagulation assayOrdered By: Johnny Keen on 02-09-2024 INR Coag (PPP) [Relative time] 1.8 {INR} Normal [facility] Comment on above: INR Therapeutic Rang [...] By: #### P T, PTT, BMP, CBC ####[id number] Ketones [Presence] in Urine by Test stripOrdered By: Johnny Keen on 02-09-2024 Ketones Ql (U) Negative Normal Negative [facility] Comment on above: Order Comment: Name Collection Type:: Clean-Voided Midstream Performed By: #### C UU, ADDONUAPLUS #### [facility] [address] [place] [address] Laboratory - UrinalysisOrder ed By: Johnny Keen on 02-09-2024 Hyaline casts LM Ql (Urine sed) None seen [LPF] 0-8 [facility] Leukocyte esterase [Presence ] in Urine by Test stripOrdered By: Johnny Keen on 02-09-2024 Leukocyte esterase Test strip Ql (U) 4+ High Negative [facility] Comment on above: Order Comment: Name Collection Type:: Clean-Voided Midstream Performed By: #### C UU, ADDONUAPLUS #### [facility] [address] [place] [address] Leukocytes [#/area] in Urine sediment by Automated countOrdered By: Johnny Keen on 02-09-2024 WBC Auto (Urine sed) [#/Area] 20-49 [HPF] High 0-4 [facility] Leukocytes [#/volume] correc darío for nucleated erythrocytes in Blood by Automated counOrdered By: Johnny Keen on 02-09-2024 WBC corrected for nucl RBC Auto (Bld) [#/Vol] 6.0 10*3/uL 3.8-11.6 [facility] Leukocytes [#/volume] in Blo od by Automated countOrdered By: Johnny Keen on 02-09-2024 WBC (Bld) [#/Vol] 6.0 10*3/uL Normal 3.8-11.6 [facility] Comment on above: Performed By: #### P T, PTT, BMP, CBC #### [facility] [address] [place] [address] Lymphocytes [#/volume] in Bl ood by Automated countOrdered By: Johnny Keen on 02-09-2024 Lymphocytes (Bld) [#/Vol] 1.1 10*3/uL Normal 1.00-4.8 [facility] Comment on above: Performed By: #### P T, PTT, BMP, CBC #### [facility] [address] [place] [address] [place] Lymphocytes/100 leukocytes i n Blood by Automated countOrdered By: Johnny Keen on 02-09-2024 Lymphocytes/100 WBC (Bld) 17.6 % Normal . [facility] Comment on above: Performed By: #### P T, PTT, BMP, CBC #### [facility] [address] [place] [address] MCH [Entitic mass] by Automa darío countOrdered By: Johnny Keen on 02-09-2024 MCH (RBC) [Entitic mass] 33.4 pg Normal 24.7-34.3 [facility] Comment on above: Performed By: #### P T, PTT, BMP, CBC #### [facility] [address] [place] [address] MCHC Auto (RBC) [Mass/Vol]Or dered By: Johnny Keen on 02-09-2024 MCHC (RBC) [Mass/Vol] 34.2 g/dL 32.0-35.0 [facility] MCV [Entitic volume] by Auto mated countOrdered By: Johnny Keen on 02-09-2024 MCV (RBC) [Entitic vol] 97.6 fL Normal 80-100 [facility] Comment on above: Performed By: #### P T, PTT, BMP, CBC #### [address] Monocyte distribution width [Entitic volume] in Blood by AutomatedOrdered By: Johnny Keen on 02-09-2024 Monocyte distribution width Auto (Bld) [Entitic vol] 17.76 % 0.00-20.00 [facility] Neutrophils [#/volume] in Bl ood by Automated countOrdered By: Johnny Keen on 02-09-2024 Neutrophils (Bld) [#/Vol] 4.4 10*3/uL Normal 1.8-7.7 [facility] Comment on above: Performed By: #### P T, PTT, BMP, CBC #### [address] Nitrite Test strip Ql (U)Ord ered By: Johnny Keen on 06-18-2024 Nitrite Ql (U) Negative Negative [facility] No Panel InformationOrdered By: Johnny Keen on 02-09-2024 Estimated GFR (CKD-EPI) 59.856 mL/Min [facility] Creatinine Clearance (Chem 48.37 [facility] Nucleated erythrocytes [Pres ence] in Blood by Automated countOrdered By: Johnny Keen on 02-09-2024 Nucleated RBC Auto Ql (Bld) 0.0 /100{WBC} 0-0.5 [facility] Partial Thromboplastin Timeo n 02-09-2024 aPTT Coag (Bld) [Time] 37.1 s High 25.1-36.5 Th e [facility] Comment on above: Result Comment: A he matocrit value greater than 55% may lead to inaccurate results in coagulation testing. Patients having hematocrit values >55% require a special collection tube for coagulation studies. Please contact the laboratory at [phone] for redraw instructions. PERFORMED BY: [place] [address] PATHOLOGIST SALES ENGINEER [employer] GLENYS BARRON M.D. Performed By: #### P T, PTT, BMP, CBC ####[facility] [id number] Platelet mean volume [Entiti c volume] in Blood by Automated countOrdered By: Johnny Keen on 02-09-2024 Platelet mean volume (Bld) [Entitic vol] 8.4 fL Normal 6.3-10.7 [facility] Comment on above: Performed By: #### P T, PTT, BMP, CBC #### [facility] [address] [place] [address] [place] Platelets [#/volume] in Bloo d by Automated countOrdered By: Johnny Keen on 02-09-2024 Platelets (Bld) [#/Vol] 178 10*3/uL Normal 150-450 [facility] Comment on above: Performed By: #### P T, PTT, BMP, CBC #### [facility] [address] [place] [address] [place] Potassium [Moles/volume] in Serum or PlasmaOrdered By: Johnny Keen on 02-09-2024 Potassium [Moles/Vol] 3.9 mmol/L Normal 3.5-5.1 [facility] Comment on above: Performed By: #### P T, PTT, BMP, CBC #### [facility] [address] Protein Test strip (U) [Mass /Vol]Ordered By: Johnny Keen on 02-09-2024 Protein (U) [Mass/Vol] Negative Negative [facility] Prothrombin time (PT)Ordered By: Johnny Keen on 02-09-2024 PT Coag (PPP) [Time] 20.6 s High 9.0-12.9 [facility] Comment on above: A hematocrit value g reater than 55% may lead to inaccurate results in coagulation testing. Patients having hematocrit values >55% require a special collection tube for coagulation studies. Please contact the laboratory at [phone] for redraw instructions. Result Comment: A he matocrit value greater than 55% may lead to inaccurate results in coagulation testing. Patients having hematocrit values >55% require a special collection tube for coagulation studies. Please contact the laboratory at [phone] for redraw instructions. Performed By: #### P T, PTT, BMP, CBC ####[facility] Serum or plasma anion gap de terminationOrdered By: Johnny Keen on 02-09-2024 Anion gap [Moles/Vol] 12.9 mmol/L Normal 6.0-15.0 [facility] Comment on above: Performed By: #### P T, PTT, BMP, CBC #### [facility] [address] Sodium [Moles/volume] in Ser um or PlasmaOrdered By: Johnny Keen on 02-09-2024 Sodium [Moles/Vol] 134 mmol/L Low 136-145 [facility] Comment on above: Performed By: #### P T, PTT, BMP, CBC #### [facility] [address] Specific gravity Test strip (U) [Rel density]Ordered By: Johnny Keen on 02-09-2024 Specific gravity (U) [Rel density] 1.014 1.001-1.03 0 [facility] Urea nitrogen [Mass/volume] in Serum or PlasmaOrdered By: Johnny Keen on 02-09-2024 Urea nitrogen [Mass/Vol] 22 mg/dL Normal 7-25 [facility] Comment on above: Performed By: #### P T, PTT, BMP, CBC #### [facility] [address] [place] [address] Urine Cultureon 02-09-2024 Bacteria identified Cx Nom (U) >100,000 colonies/ml mixed bacterial skin contaminants 2 Days PERFORMED BY: [place] [address] PATHOLOGIST SALES ENGINEER [employer] GLENYS Correia [facility] Comment on above: Performed By: #### C UU, ADDONUAPLUS #### [address] Urine appearanceOrdered By: Johnny Keen on 02-09-2024 Appearance (U) Cloudy Critically abnormal Clear [facility] Comment on above: Order Comment: Name Collection Type:: Clean-Voided Midstream Performed By: #### C UU, ADDONUAPLUS #### [address] Urine culture routineOrdered By: Johnny Keen on 02-09-2024 Bacteria identified Cx Nom (U) 2 Days [facility] Urobilinogen Test strip (U) [Mass/Vol]Ordered By: Johnny Keen on 02-09-2024 Urobilinogen (U) [Mass/Vol] Normal mg/dL Normal [facility] pH of Urine by Test stripOrd ered By: Johnny Keen on 02-09-2024 pH (U) 6.5 [pH] Normal 5.0-9.0 [facility] Comment on above: Order Comment: Name Collection Type:: Clean-Voided Midstream Performed By: #### C UU, ADDONUAPLUS #### [address] No Panel Informationon 01-19 Bedside INR (LAB) 2.5 [facility] No Panel Informationon 01-04 Bedside INR (LAB) 2.1 [facility] Capillary blood glucose flakita urement by glucometer (mass/volume)Ordered By: aSndy Clark on 12-28-2023 Glucose [Mass/Vol] 170 mg/dL Normal [facility] Comment on above: Random Glucose Refer ence Range is dependent on time and content of last meal. Glucose of more than 200 mg/dL in a nonstressed, ambulatory subject supports the diagnosis of Diabetes Mellitus. Result Comment: [place] om Glucose Reference Range is dependent on time and content of last meal. Glucose of more than 200 mg/dL in a nonstressed, ambulatory subject supports the diagnosis of Diabetes Mellitus. Performed By: #### G LULS #### Point of Care testing , Glucose Poct Glucometerson 0 12-28-2023 Commemt1 Glu2: Cleaned Meter Normal [facility] Comment on above: Result Comment: PERF ORMED BY: [facility] [address] [place] [id number] PATHOLOGIST SALES ENGINEER [employer] GLENYS BARRON M.D. Performed By: #### G LULS #### Point of Care testing , INR in Platelet poor plasma by Coagulation assayOrdered By: Sandy Clark on 12-28-2023 INR Coag (PPP) [Relative time] 1.0 {INR} Normal [facility] Comment on above: INR Therapeutic Rang [...] heart valves: 3 - 4.5 PERFORMED BY: [place] [address] PATHOLOGIST SALES ENGINEER [employer] GLENYS BARRON M.D. Performed By: #### P T #### [place] [id number] [facility] Jimbo 12-28-2023 L Specimen: [id number] Received: 12/28/23 Status: JAGDISHAlexander Russell Num: [id number] Spec Type: Surgical Subm Dr: Sandy Clark DO Tissues: A Colon Biopsy (RT COLON) B Colon Biopsy (TRANSV BX) C Colon Biopsy (LT COLON BX) Procedures: HE/6, Gross/Micro L4/3 Age/ Patient Sex Location Account Attending Physician Nicol Frances 73/F [id number] Sandy Clark DO SPEC NUM: [id number] RECD: 12/28/23 STATUS: TIERRA RUSSELL NUM: [id number] ROQUE: 12/28/23 DR: Sandy Clark DO ENTERED: 12/28/[address] [facility] [address]: SPEC TYPE: Surgical DEPT: S ORDERED: [...] in C1. Clinical history: Ulcerative colitis Specimen: [id number] Received: 12/28/23 Status: TIERRA Russell Num: [id number] Spec Type: Surgical Subm Dr: Sandy Clark DO Tissues: A Colon Biopsy (RT COLON) B Colon Biopsy (TRANSV BX) C Colon Biopsy (LT COLON BX) Procedures: HE/Leann, Omar/Rupert L4/3 Patient: Nicol Frances [id number] (Continued) Specimen: [id number] Received: 12/28/23 (Continued) Signed (signature on file) Ac Beaulieu MD 12/29/23 1414 Specimen: [id number] Received: 12/28/23 Status: TIERRA Russell Num: [id number] Spec Type: Surgical Subm Dr: Sandy Clark DO Tissues: A Colon Biopsy (RT COLON) B Colon Biopsy (TRANSV BX) C Colon Biopsy (LT COLON BX) Procedures: HE/6, Gross/Micro L4/3 Patient: Nicol Frances [id number] (Continued) Specimen: Received: 12/28/23 (Continued) CPT Codes 82721l0 Specimen: [id number] Received: 12/28/23-105 Status: TIERRA Russell Num: [id number] Spec Type: Surgical Subm Dr: Sandy Clark, DO Tissues: A Colon Biopsy (RT COLON) B Colon Biopsy (TRANSV BX) C Colon Biopsy (LT COLON BX) Procedures: HE/6, Gross/Micro L4/3 Patient: Nicol Frances [id number] (Continued) Signed (signature on file) Ac Beaulieu MD 12/29/23 1414 Normal [facility] No Panel InformationOrdered By: Sandy Clark on 12-28-2023 Bedside Glucose Comment Glu2: cleaned meter [facility] Prothrombin time (PT)Ordered By: Sandy Clark on 12-28-2023 PT Coag (PPP) [Time] 12.1 s Normal 9.0-12.9 [facility] Comment on above: A hematocrit value g reater than 55% may lead to inaccurate results in coagulation testing. Patients having hematocrit values >55% require a special collection tube for coagulation studies. Please contact the laboratory at [phone] for redraw instructions. Result Comment: A he matocrit value greater than 55% may lead to inaccurate results in coagulation testing. Patients having hematocrit values >55% require a special collection tube for coagulation studies. Please contact the laboratory at [phone] for redraw instructions. Performed By: #### P T #### [place] [id number] [facility] No Panel Informationon 12-13 Bedside INR (LAB) 2.0 [facility] No Panel Informationon 11-08 Bedside INR (LAB) 2.2 [facility] Prothrombin Time INRon 10-05 INR Coag (PPP) [Relative time] 2.6 {INR} [employer] Other Prothrombin Time [facility] [employer] Other Prothrombin Time INRon 09-07 INR Coag (PPP) [Relative time] 2.6 {INR} [employer] Other Prothrombin Time [facility] [employer] Other Prothrombin Time INRon 08-11 INR Coag (PPP) [Relative time] 2.4 {INR} [employer] Other Prothrombin Time [facility] [employer] Other Prothrombin Time INRon 07-14 INR Coag (PPP) [Relative time] 2.4 {INR} [employer] Other Prothrombin Time [facility] [employer] Other Prothrombin Time INRon 06-15 INR Coag (PPP) [Relative time] 2.8 {INR} [employer] Other Prothrombin Time INR [employer] Other Prothrombin Time INRon 04-30 INR Coag (PPP) [Relative time] 2.6 {INR} [employer] Other Prothrombin Time INR [employer] Other Prothrombin Time INRon 04-08 INR Coag (PPP) [Relative time] 3.1 {INR} [employer] Other Prothrombin Time INR [facility] [employer] Other Prothrombin Time INRon 03-23 INR Coag (PPP) [Relative time] 2.3 {INR} [employer] Other Prothrombin Time INR [facility] [employer] Other Prothrombin Time INRon 03-11 INR Coag (PPP) [Relative time] 3.2 {INR} [employer] Other Prothrombin Time INR [facility] [employer] Other Prothrombin Time INRon 02-23 INR Coag (PPP) [Relative time] 3.4 {INR} [employer] Other Prothrombin Time INR [employer] Other Laboratory - CoagulationOrde red By: Gabriel Castaneda on 12-17-2022 PT Coag (PPP) [Time] 21.0 s 9.0-12.9 [facility] Platelet poor plasma interna tional normalized ratio (INR) by coagulation assay (relatOrdered By: Gabriel Castaneda on 12-17-2022 INR Coag (PPP) [Relative time] 1.8 {INR} [facility] Comment on above: INR Therapeutic Rang [...] Castaneda on 12-15-2022 Glucose [Mass/Vol] 223 mg/dL [facility] Comment on above: Random Glucose Refer ence Range is dependent on time and content of last meal. Glucose of more than 200 mg/dL in a nonstressed, ambulatory subject supports the diagnosis of Diabetes Mellitus. Laboratory - CoagulationOrde red By: Rosalina Shelton on 12-15-2022 PT Coag (PPP) [Time] 15.7 s 9.0-12.9 [facility] No Panel InformationOrdered By: Gabriel Castaneda on 12-15-2022 Bedside Glucose Comment Glu2: cleaned meter [facility] Platelet poor plasma interna tional normalized ratio (INR) by coagulation assay (relatOrdered By: Rosalina Shelton on 12-15-2022 INR Coag (PPP) [Relative time] 1.4 {INR} [facility] Comment on above: INR Therapeutic Rang [...] 12-14-2022 Basophils (Bld) [#/Vol] 0.0 10*3/uL 0.0-0.2 [facility] Basophils/100 WBC Auto (Bld) Ordered By: Rosalina Shelton on 12-14-2022 Basophils/100 WBC (Bld) 1.0 % . [facility] Calcium [Mass/volume] in Ser um or PlasmaOrdered By: Rosalina Shelton on 12-14-2022 Calcium [Mass/Vol] 8.1 mg/dL 8.6-10.3 [facility] Carbon dioxide, total [Moles /volume] in Serum or PlasmaOrdered By: Rosalina Shelton on 12-14-2022 CO2 [Moles/Vol] 24.8 mmol/L 21.0-31.0 [facility] Chloride [Moles/volume] in S remi or PlasmaOrdered By: Rosalina Shelton on 12-14-2022 Chloride [Moles/Vol] 105 mmol/L 98-107 [facility] Creatinine [Mass/volume] in Serum or PlasmaOrdered By: Rsoalina Shelton on 12-14-2022 Creatinine [Mass/Vol] 0.98 mg/dL 0.60-1.20 [facility] Eosinophils Auto (Bld) [#/Vo l]Ordered By: Rosalina Shelton on 12-14-2022 Eosinophils (Bld) [#/Vol] 0.1 10*3/uL 0.0-0.45 [facility] Eosinophils/100 WBC Auto (Bl d)Ordered By: Rosalina Shelton on 12-14-2022 Eosinophils/100 WBC (Bld) 2.0 % . [facility] Erythrocyte distribution wid th Auto (RBC) [Ratio]Ordered By: Rosalina Shelton on 12-14-2022 Erythrocyte distribution width (RBC) [Ratio] 14.3 % 11.9-15.3 [facility] Glucose [Mass/volume] in Ser um or PlasmaOrdered By: Rosalina Shelton on 12-14-2022 Glucose [Mass/Vol] 149 mg/dL 70-100 [facility] Comment on above: ADA recommended refe rence rangeRandom Glucose Reference Range is dependent on time and content of last meal. Glucose of more than 200 mg/dL in a nonstressed, ambulatory subject supports the diagnosis of Diabetes Mellitus. Hematocrit Auto (Bld) [Volum e fraction]Ordered By: Rosalina Sehlton on 12-14-2022 Hematocrit (Bld) [Volume fraction] 36.1 % 34.0-46.4 [facility] Hemoglobin [Mass/volume] in BloodOrdered By: Rosalina Shelton on 12-14-2022 Hemoglobin (Bld) [Mass/Vol] 12.1 g/dL 11.8-15.4 [facility] Leukocytes [#/volume] correc darío for nucleated erythrocytes in Blood by Automated counOrdered By: Rosalina Shelton on 12-14-2022 WBC corrected for nucl RBC Auto (Bld) [#/Vol] 4.4 10*3/uL 3.8-11.6 [facility] Lymphocytes Auto (Bld) [#/Vo l]Ordered By: Rosalina Shelton on 12-14-2022 Lymphocytes (Bld) [#/Vol] 1.3 10*3/uL 1.00-4.8 [facility] Lymphocytes/100 WBC Auto (Bl d)Ordered By: Rosalina Shelton on 12-14-2022 Lymphocytes/100 WBC (Bld) 28.6 % . [facility] MCH Auto (RBC) [Entitic mass ]Ordered By: Rosalina Shelton on 12-14-2022 MCH (RBC) [Entitic mass] 32.2 pg 24.7-34.3 [facility] MCHC Auto (RBC) [Mass/Vol]Or dered By: Rosalina Shelton on 12-14-2022 MCHC (RBC) [Mass/Vol] 33.4 g/dL 32.0-35.0 [facility] MCV Auto (RBC) [Entitic vol] Ordered By: Rosalina Shelton on 12-14-2022 MCV (RBC) [Entitic vol] 96.3 fL 80-100 [facility] Monocytes Auto (Bld) [#/Vol] Ordered By: Rosalina Shelton on 12-14-2022 Monocytes (Bld) [#/Vol] 0.5 10*3/uL 0.0-0.8 [facility] Monocytes/100 WBC Auto (Bld) Ordered By: Rosalina Shelton on 12-14-2022 Monocytes/100 WBC (Bld) 11.6 % . [facility] Neutrophils Auto (Bld) [#/Vo l]Ordered By: Rosalina Shelton on 12-14-2022 Neutrophils (Bld) [#/Vol] 2.5 10*3/uL 1.8-7.7 [facility] Neutrophils/100 WBC Auto (Bl d)Ordered By: Rosalina Shelton on 12-14-2022 Neutrophils/100 WBC (Bld) 56.8 % . [facility] No Panel InformationOrdered By: Rosalina Shelton on 12-14-2022 Estimated GFR (CKD-EPI) > 60.0 mL/Min [facility] Creatinine Clearance (Chem 54.33 [facility] Nucleated erythrocytes [Pres ence] in Blood by Automated countOrdered By: Rosalina Shelton on 12-14-2022 Nucleated RBC Auto Ql (Bld) 0.1 /100{WBC} 0-0.5 [facility] Platelet mean volume Auto (B ld) [Entitic vol]Ordered By: Rosalina Shelton on 12-14-2022 Platelet mean volume (Bld) [Entitic vol] 8.3 fL 6.3-10.7 [facility] Platelets Auto (Bld) [#/Vol] Ordered By: Rosalina Shelton on 12-14-2022 Platelets (Bld) [#/Vol] 197 10*3/uL 150-450 [facility] Potassium [Moles/volume] in Serum or PlasmaOrdered By: Rosalina Shelton on 12-14-2022 Potassium [Moles/Vol] 4.1 mmol/L 3.5-5.1 [facility] RBC Auto (Bld) [#/Vol]Ordere d By: Rosalina Shelton on 12-14-2022 RBC (Bld) [#/Vol] 3.75 10*6/uL 3.60-5.00 [facility] Serum or plasma anion gap de terminationOrdered By: Rosalina Shelton on 12-14-2022 Anion gap [Moles/Vol] TNP [facility] Comment on above: Test not performed Sodium [Moles/volume] in Ser um or PlasmaOrdered By: Rosalina Shelton on 12-14-2022 Sodium [Moles/Vol] 135 mmol/L 136-145 [facility] Comment on above: Hemolysis is present at a level that could interfere with the result. Troponin I.cardiac [Mass/vol ume] in Serum or Plasma by Detection limit <= 0.01 ng/Ordered By: Rosalina Shelton on 12-14-2022 Troponin I.cardiac DL <= 0.01 ng/mL [Mass/Vol] 6.3 pg/mL 0.0-15.0 [facility] Urea nitrogen [Mass/volume] in Serum or PlasmaOrdered By: Rosalina Shelton on 12-14-2022 Urea nitrogen [Mass/Vol] 13 mg/dL 7-25 [facility] WBC Auto (Bld) [#/Vol]Ordere d By: Rosalina Shelton on 12-14-2022 WBC (Bld) [#/Vol] 4.4 10*3/uL 3.8-11.6 [facility] Activated partial thrombopla stin time (aPTT) in platelet poor plasma by coagulation aOrdered By: Celio Lobo on 12-13-2022 aPTT Coag (PPP) [Time] 38.0 s 25.1-36.5 [facility] Alanine aminotransferase [En zymatic activity/volume] in Serum or PlasmaOrdered By: Celio Lobo on 12-13-2022 ALT [Catalytic activity/Vol] 14 U/L 7-52 [facility] Albumin [Mass/volume] in Ser um or Plasma by Bromocresol green (BCG) dye binding methoOrdered By: Celio Lobo on 12-13-2022 Albumin BCG dye [Mass/Vol] 3.8 g/dL 3.5-5.7 [facility] Alkaline phosphatase [Enzyma tic activity/volume] in Serum or PlasmaOrdered By: Celio Lobo on 12-13-2022 ALP [Catalytic activity/Vol] 51 U/L 34-104 [facility] Aspartate aminotransferase [ Enzymatic activity/volume] in Serum or PlasmaOrdered By: Celio Lobo on 12-13-2022 AST [Catalytic activity/Vol] 18 U/L 13-39 [facility] Basophils Auto (Bld) [#/Vol] Ordered By: Celio Lobo on 12-13-2022 Basophils (Bld) [#/Vol] 0.0 10*3/uL 0.0-0.2 [facility] Basophils/100 WBC Auto (Bld) Ordered By: Celio Lobo on 12-13-2022 Basophils/100 WBC (Bld) 1.0 % . [facility] Bilirubin Test strip Ql (U)O rdered By: Celio Lobo on 12-13-2022 Bilirubin Ql (U) Negative Negative [facility] Bilirubin.total [Mass/volume ] in Serum or PlasmaOrdered By: Celio Lobo on 12-13-2022 Bilirubin [Mass/Vol] 0.3 mg/dL 0.3-1.0 [facility] Calcium [Mass/volume] in Ser um or PlasmaOrdered By: Celio Lobo on 12-13-2022 Calcium [Mass/Vol] 8.5 mg/dL 8.6-10.3 [facility] Carbon dioxide, total [Moles /volume] in Serum or PlasmaOrdered By: Celio Lobo on 12-13-2022 CO2 [Moles/Vol] 23.2 mmol/L 21.0-31.0 [facility] Chloride [Moles/volume] in S remi or PlasmaOrdered By: Celio Lobo on 12-13-2022 Chloride [Moles/Vol] 106 mmol/L 98-107 [facility] Color Auto (U)Ordered By: Perez Lobo on 12-13-2022 Color (U) Yellow Yellow [facility] Creatinine [Mass/volume] in Serum or PlasmaOrdered By: Celio Lobo on 12-13-2022 Creatinine [Mass/Vol] 1.06 mg/dL 0.60-1.20 [facility] Eosinophils Auto (Bld) [#/Vo l]Ordered By: Celio Lobo on 12-13-2022 Eosinophils (Bld) [#/Vol] 0.1 10*3/uL 0.0-0.45 [facility] Eosinophils/100 WBC Auto (Bl d)Ordered By: Celio Lobo on 12-13-2022 Eosinophils/100 WBC (Bld) 1.2 % . [facility] Erythrocyte distribution wid th Auto (RBC) [Ratio]Ordered By: Celio Lobo on 12-13-2022 Erythrocyte distribution width (RBC) [Ratio] 14.6 % 11.9-15.3 [facility] Globulin Calc (S) [Mass/Vol] Ordered By: Celio Lobo on 12-13-2022 Globulin (S) [Mass/Vol] 2.8 g/dL [facility] Glucose Glucometer (BldC) [M ass/Vol]Ordered By: Celio Lobo on 12-13-2022 Glucose [Mass/Vol] 96 mg/dL [facility] Comment on above: Random Glucose Refer ence Range is dependent on time and content of last meal. Glucose of more than 200 mg/dL in a nonstressed, ambulatory subject supports the diagnosis of Diabetes Mellitus. Glucose [Mass/volume] in Ser um or PlasmaOrdered By: Celio Lobo on 12-13-2022 Glucose [Mass/Vol] 152 mg/dL 70-100 [facility] Comment on above: ADA recommended refe rence rangeRandom Glucose Reference Range is dependent on time and content of last meal. Glucose of more than 200 mg/dL in a nonstressed, ambulatory subject supports the diagnosis of Diabetes Mellitus. Hematocrit Auto (Bld) [Volum e fraction]Ordered By: Celio Lobo on 12-13-2022 Hematocrit (Bld) [Volume fraction] 37.8 % 34.0-46.4 [facility] Hemoglobin [Mass/volume] in BloodOrdered By: Celio Lobo on 12-13-2022 Hemoglobin (Bld) [Mass/Vol] 12.5 g/dL 11.8-15.4 [facility] Ketones Auto test strip (U) [Mass/Vol]Ordered By: Celio Lobo on 12-13-2022 Ketones (U) [Mass/Vol] Negative Negative [facility] Laboratory - CoagulationOrde red By: Celio Lobo on 12-13-2022 PT Coag (PPP) [Time] 23.1 s 9.0-12.9 [facility] Leukocytes [#/volume] correc darío for nucleated erythrocytes in Blood by Automated counOrdered By: Celio Lobo on 12-13-2022 WBC corrected for nucl RBC Auto (Bld) [#/Vol] 4.9 10*3/uL 3.8-11.6 [facility] Lymphocytes Auto (Bld) [#/Vo l]Ordered By: Celio Lobo on 12-13-2022 Lymphocytes (Bld) [#/Vol] 1.5 10*3/uL 1.00-4.8 [facility] Lymphocytes/100 WBC Auto (Bl d)Ordered By: Celio Lobo on 12-13-2022 Lymphocytes/100 WBC (Bld) 29.8 % . [facility] MCH Auto (RBC) [Entitic mass ]Ordered By: Celio Lobo on 12-13-2022 MCH (RBC) [Entitic mass] 31.8 pg 24.7-34.3 [facility] MCHC Auto (RBC) [Mass/Vol]Or dered By: Celio Lobo on 12-13-2022 MCHC (RBC) [Mass/Vol] 33.1 g/dL 32.0-35.0 [facility] MCV Auto (RBC) [Entitic vol] Ordered By: Celio Lobo on 12-13-2022 MCV (RBC) [Entitic vol] 96.0 fL 80-100 [facility] Magnesium [Mass/volume] in S remi or PlasmaOrdered By: Rosalina Shelton on 12-13-2022 Magnesium [Mass/Vol] 1.9 mg/dL 1.9-2.7 [facility] Magnesium [Mass/volume] in S remi or PlasmaOrdered By: Celio Lobo on 12-13-2022 Magnesium [Mass/Vol] 2.0 mg/dL 1.9-2.7 [facility] Monocyte distribution width [Entitic volume] in Blood by AutomatedOrdered By: Celio Lobo on 12-13-2022 Monocyte distribution width Auto (Bld) [Entitic vol] 18.43 % 0.00-20.00 [facility] Monocytes Auto (Bld) [#/Vol] Ordered By: Celio Lobo on 12-13-2022 Monocytes (Bld) [#/Vol] 0.5 10*3/uL 0.0-0.8 [facility] Monocytes/100 WBC Auto (Bld) Ordered By: Celio Lobo on 12-13-2022 Monocytes/100 WBC (Bld) 9.9 % . [facility] Natriuretic peptide B [Mass/ Vol]Ordered By: Celio Lobo on 12-13-2022 Natriuretic peptide B (Bld) [Mass/Vol] 105.0 pg/mL 5-100 [facility] Neutrophils Auto (Bld) [#/Vo l]Ordered By: Celio Lobo on 12-13-2022 Neutrophils (Bld) [#/Vol] 2.8 10*3/uL 1.8-7.7 [facility] Neutrophils/100 WBC Auto (Bl d)Ordered By: Celio Lobo on 12-13-2022 Neutrophils/100 WBC (Bld) 58.1 % . [facility] Nitrite Test strip Ql (U)Ord ered By: Celio Lobo on 12-13-2022 Nitrite Ql (U) Negative Negative [facility] No Panel InformationOrdered By: Celio Lobo on 12-13-2022 Bedside Glucose #2 Comment Cleaned meter [facility] Bedside Glucose Comment See comment [facility] Comment on above: Glu2: WILL NOTIFY /RN Estimated GFR (CKD-EPI) 56.163 mL/Min [facility] Creatinine Clearance (Chem 51.30 [facility] No Panel InformationOrdered By: Rosalina Shelton on 12-13-2022 D-Dimer Quantitative (PE/DVT) < 200 ng/mL 0-243 [facility] Comment on above: The reference range [...] RBC Auto Ql (Bld) 0.0 /100{WBC} 0-0.5 [facility] Platelet mean volume Auto (B ld) [Entitic vol]Ordered By: Celio Lobo on 12-13-2022 Platelet mean volume (Bld) [Entitic vol] 8.4 fL 6.3-10.7 [facility] Platelet poor plasma interna tional normalized ratio (INR) by coagulation assay (relatOrdered By: Celio Lobo on 12-13-2022 INR Coag (PPP) [Relative time] 2.0 {INR} [facility] Comment on above: INR Therapeutic Rang [...] Platelets Auto (Bld) [#/Vol] Ordered By: Celio Loob on 12-13-2022 Platelets (Bld) [#/Vol] 221 10*3/uL 150-450 [facility] Potassium [Moles/volume] in Serum or PlasmaOrdered By: Celio Lobo on 12-13-2022 Potassium [Moles/Vol] 4.0 mmol/L 3.5-5.1 [facility] Protein Auto test strip (U) [Mass/Vol]Ordered By: Celio Lobo on 12-13-2022 Protein (U) [Mass/Vol] Negative Negative [facility] Protein [Mass/volume] in Ser um or PlasmaOrdered By: Celio Lobo on 12-13-2022 Protein [Mass/Vol] 6.6 g/dL 6.4-8.9 [facility] RBC Auto (Bld) [#/Vol]Ordere d By: Celio Lobo on 12-13-2022 RBC (Bld) [#/Vol] 3.94 10*6/uL 3.60-5.00 [facility] Serum or plasma albumin/glob ulin mass ratioOrdered By: Celio Lobo on 12-13-2022 Albumin/Globulin [Mass ratio] 1.4 {ratio} [facility] Serum or plasma anion gap de terminationOrdered By: Celio Lobo on 12-13-2022 Anion gap [Moles/Vol] 11.8 mmol/L 6.0-15.0 [facility] Sodium [Moles/volume] in Ser um or PlasmaOrdered By: Celio Lobo on 12-13-2022 Sodium [Moles/Vol] 137 mmol/L 136-145 [facility] Specific gravity Auto test s trip (U) [Rel density]Ordered By: Celio Lobo on 12-13-2022 Specific gravity (U) [Rel density] 1.006 1.001-1.03 0 [facility] Thyrotropin [Units/volume] i n Serum or PlasmaOrdered By: Rosalina Shelton on 12-13-2022 TSH Qn 4.39 m[IU]/L 0.45-5.33 [facility] Troponin I.cardiac [Mass/vol ume] in Serum or Plasma by Detection limit <= 0.01 ng/Ordered By: Celio Lobo on 12-13-2022 Troponin I.cardiac DL <= 0.01 ng/mL [Mass/Vol] 6.4 pg/mL 0.0-15.0 [facility] Urea nitrogen [Mass/volume] in Serum or PlasmaOrdered By: Celio Lobo on 12-13-2022 Urea nitrogen [Mass/Vol] 15 mg/dL 7-25 [facility] Urine clarity by refractomet ry automatedOrdered By: Celio Lobo on 12-13-2022 Clarity Refractometry automated (U) Clear Clear [facility] Urine glucose measurement by automated test strip (mass/volume)Ordered By: Celio Lobo on 12-13-2022 Glucose Auto test strip (U) [Mass/Vol] Normal mg/dL Normal [facility] Urine hemoglobin detection b y automated test stripOrdered By: Celio Lobo on 12-13-2022 Hemoglobin Auto test strip Ql (U) Negative Negative [facility] Urine leukocyte esterase det ection by automated test stripOrdered By: Celio Lobo on 12-13-2022 Leukocyte esterase Auto test strip Ql (U) Negative Negative [facility] Urobilinogen Auto test strip (U) [Mass/Vol]Ordered By: Celio Lobo on 12-13-2022 Urobilinogen (U) [Mass/Vol] Normal mg/dL Normal [facility] WBC Auto (Bld) [#/Vol]Ordere d By: Celio Lobo on 12-13-2022 WBC (Bld) [#/Vol] 4.9 10*3/uL 3.8-11.6 [facility] pH Auto test strip (U)Ordere d By: Celio Lobo on 12-13-2022 pH (U) 8.0 [pH] 5.0-9.0 [facility] Prothrombin Time INRon 12-10 INR Coag (PPP) [Relative time] 2.5 {INR} [employer] Other Prothrombin Time INR [place] [employer] Other Prothrombin Time INRon 11-12 INR Coag (PPP) [Relative time] 2.7 {INR} [employer] Other Prothrombin Time INR [place] [employer] Other Prothrombin Time INRon 10-15 INR Coag (PPP) [Relative time] 2.7 {INR} [employer] Other Prothrombin Time INR [employer] Other Automated erythrocytes count in urine sediment (number/area)Ordered By: Edmond Branham on 09-23-2022 RBC Auto (Urine sed) [#/Area] 1-2 [HPF] 0-4 [facility] Automated leukocytes count i n urine sediment (number/area)Ordered By: Edmond Branham on 09-23-2022 WBC Auto (Urine sed) [#/Area] 5-9 [HPF] 0-4 [facility] Basophils Auto (Bld) [#/Vol] Ordered By: Edmond Branham on 09-23-2022 Basophils (Bld) [#/Vol] 0.1 10*3/uL 0.0-0.2 [facility] Basophils/100 WBC Auto (Bld) Ordered By: Edmond Branham on 09-23-2022 Basophils/100 WBC (Bld) 1.1 % . [facility] Bilirubin Test strip Ql (U)O rdered By: Edmond Branham on 09-23-2022 Bilirubin Ql (U) Negative Negative [facility] Body fluid albumin measureme nt (mass/volume)Ordered By: Edmond Branham on 09-23-2022 Albumin (Body fld) [Mass/Vol] 3.7 g/dL 3.2-5.5 [facility] Color Auto (U)Ordered By: Kailey Branham on 09-23-2022 Color (U) Dark yellow Yellow [facility] Creatinine and Glomerular fi ltration rate.predicted panel (S/P/Bld)Ordered By: Edmond Branham on 09-23-2022 Creatinine [Mass/Vol] 1.15 mg/dL 0.44-1.03 [facility] Eosinophils Auto (Bld) [#/Vo l]Ordered By: Edmond Branham on 09-23-2022 Eosinophils (Bld) [#/Vol] 0.1 10*3/uL 0.0-0.45 [facility] Eosinophils/100 WBC Auto (Bl d)Ordered By: Edmond Branham on 09-23-2022 Eosinophils/100 WBC (Bld) 1.7 % . [facility] Erythrocyte distribution wid th Auto (RBC) [Ratio]Ordered By: Edmond Branham on 09-23-2022 Erythrocyte distribution width (RBC) [Ratio] 15.0 % 11.9-15.3 [facility] Estimated glomerular filtrat ion rate (GFR) non- AmericanOrdered By: Edmond Branham on 09-23-2022 GFR/1.73 sq M.predicted among non-blacks MDRD (S/P/Bld) [Vol rate/Area] 47 mL/Min [facility] Globulin Calc (S) [Mass/Vol] Ordered By: Edmond Branham on 09-23-2022 Globulin (S) [Mass/Vol] 2.9 g/dL [facility] Glucose Glucometer (BldC) [M ass/Vol]Ordered By: Edmond Branham on 09-23-2022 Glucose [Mass/Vol] 108 mg/dL [facility] Comment on above: Random Glucose Refer ence Range is dependent on time and content of last meal. Glucose of more than 200 mg/dL in a nonstressed, ambulatory subject supports the diagnosis of Diabetes Mellitus. Hematocrit Auto (Bld) [Volum e fraction]Ordered By: Edmond Branham on 09-23-2022 Hematocrit (Bld) [Volume fraction] 39.1 % 34.0-46.4 [facility] Hemoglobin [Mass/volume] in BloodOrdered By: Edmond Branham on 09-23-2022 Hemoglobin (Bld) [Mass/Vol] 13.3 g/dL 11.8-15.4 [facility] Ketones Auto test strip (U) [Mass/Vol]Ordered By: Edmond Branham on 09-23-2022 Ketones (U) [Mass/Vol] Negative Negative [facility] Laboratory - UrinalysisOrder ed By: Edmond Branham on 09-23-2022 Hyaline casts LM Ql (Urine sed) 0-8 [LPF] 0-8 [facility] Leukocytes [#/volume] correc darío for nucleated erythrocytes in Blood by Automated counOrdered By: Edmond Branham on 09-23-2022 WBC corrected for nucl RBC Auto (Bld) [#/Vol] 5.2 10*3/uL 3.8-11.6 [facility] Lymphocytes Auto (Bld) [#/Vo l]Ordered By: Edmond Branham on 09-23-2022 Lymphocytes (Bld) [#/Vol] 1.6 10*3/uL 1.00-4.8 [facility] Lymphocytes/100 WBC Auto (Bl d)Ordered By: Edmond Branham on 09-23-2022 Lymphocytes/100 WBC (Bld) 31.1 % . [facility] MCH Auto (RBC) [Entitic mass ]Ordered By: Edmond Branham on 09-23-2022 MCH (RBC) [Entitic mass] 32.3 pg 24.7-34.3 [facility] MCHC Auto (RBC) [Mass/Vol]Or dered By: Edmond Branham on 09-23-2022 MCHC (RBC) [Mass/Vol] 34.0 g/dL 32.0-35.0 [facility] MCV Auto (RBC) [Entitic vol] Ordered By: Edmond Branham on 09-23-2022 MCV (RBC) [Entitic vol] 95.2 fL 80-100 [facility] Monocyte distribution width [Entitic volume] in Blood by AutomatedOrdered By: Edmond Branham on 09-23-2022 Monocyte distribution width Auto (Bld) [Entitic vol] 19.36 % 0.00-20.00 [facility] Monocytes Auto (Bld) [#/Vol] Ordered By: Edmond Branham on 09-23-2022 Monocytes (Bld) [#/Vol] 0.5 10*3/uL 0.0-0.8 [facility] Monocytes/100 WBC Auto (Bld) Ordered By: Edmond Branham on 09-23-2022 Monocytes/100 WBC (Bld) 10.2 % . [facility] Neutrophils Auto (Bld) [#/Vo l]Ordered By: Edmond Branham on 09-23-2022 Neutrophils (Bld) [#/Vol] 2.9 10*3/uL 1.8-7.7 [facility] Neutrophils/100 WBC Auto (Bl d)Ordered By: Edmond Branham on 09-23-2022 Neutrophils/100 WBC (Bld) 55.9 % . [facility] Nitrite Test strip Ql (U)Ord ered By: Edmond Branham on 09-23-2022 Nitrite Ql (U) Negative Negative [facility] No Panel InformationOrdered By: Edmond Branham on 09-23-2022 Estimated GFR () 56 mL/Min [facility] Comment on above: GFR estimated refere nce range: According to KDOQI guidelines, <60 ml/min/1.73m2 is sufficient to diagnose a patient with chronic kidney disease. Pharmacy Creatinine Clearance (Chem 46.55 [facility] Nucleated erythrocytes [Pres ence] in Blood by Automated countOrdered By: Edmond Branham on 09-23-2022 Nucleated RBC Auto Ql (Bld) 0.1 /100{WBC} 0-0.5 [facility] Platelet mean volume Auto (B ld) [Entitic vol]Ordered By: Edmond Branham on 09-23-2022 Platelet mean volume (Bld) [Entitic vol] 8.1 fL 6.3-10.7 [facility] Platelets Auto (Bld) [#/Vol] Ordered By: Edmond Branham on 09-23-2022 Platelets (Bld) [#/Vol] 183 10*3/uL 150-450 [facility] Protein Auto test strip (U) [Mass/Vol]Ordered By: Edmond Branham on 09-23-2022 Protein (U) [Mass/Vol] Negative Negative [facility] Protein [Mass/volume] in Ser um or PlasmaOrdered By: Edmond Branham on 09-23-2022 Protein [Mass/Vol] 6.6 g/dL 6.1-7.9 [facility] RBC Auto (Bld) [#/Vol]Ordere d By: Edmond Branham on 09-23-2022 RBC (Bld) [#/Vol] 4.10 10*6/uL 3.60-5.00 [facility] Serum or plasma alanine lugo otransferase measurement without P-5'-P (enzymatic activiOrdered By: Edmond Branham on 09-23-2022 ALT No additional P-5'-P [Catalytic activity/Vol] 15 U/L 10-60 [facility] Serum or plasma albumin/glob ulin mass ratioOrdered By: Edmond Branham on 09-23-2022 Albumin/Globulin [Mass ratio] 1.3 {ratio} [facility] Serum or plasma alkaline elijah sphatase measurement (enzymatic activity/volume)Ordered By: Edmond Branham on 09-23-2022 ALP [Catalytic activity/Vol] 57 U/L 32-92 [facility] Serum or plasma anion gap de terminationOrdered By: Edmond Branham on 09-23-2022 Anion gap [Moles/Vol] 15.9 mmol/L 6.0-15.0 [facility] Serum or plasma aspartate am inotransferase measurement (enzymatic activity/volume)Ordered By: Edmond Branham on 09-23-2022 AST [Catalytic activity/Vol] 20 U/L 10-42 [facility] Serum or plasma calcium flakita urement (mass/volume)Ordered By: Edmond Branham on 09-23-2022 Calcium [Mass/Vol] 9.3 mg/dL 8.2-10.2 [facility] Serum or plasma chloride patrice surement (moles/volume)Ordered By: Edmond Branham on 09-23-2022 Chloride [Moles/Vol] 103 mmol/L 95-114 [facility] Serum or plasma glucose flakita urement (mass/volume)Ordered By: Edmond Branham on 09-23-2022 Glucose [Mass/Vol] 103 mg/dL 70-100 [facility] Comment on above: ADA recommended refe rence rangeRandom Glucose Reference Range is dependent on time and content of last meal. Glucose of more than 200 mg/dL in a nonstressed, ambulatory subject supports the diagnosis of Diabetes Mellitus. Serum or plasma potassium me asurement (moles/volume)Ordered By: Edmond Branham on 09-23-2022 Potassium [Moles/Vol] 3.5 mmol/L 3.5-5.1 [facility] Serum or plasma sodium measu rement (moles/volume)Ordered By: Edmond Branham on 09-23-2022 Sodium [Moles/Vol] 137 mmol/L 136-146 [facility] Serum or plasma total biliru bin measurement (mass/volume)Ordered By: Edmond Branham on 09-23-2022 Bilirubin [Mass/Vol] 0.4 mg/dL 0.3-1.2 [facility] Serum or plasma total carbon dioxide measurement (moles/volume)Ordered By: Edmond Branham on 09-23-2022 CO2 [Moles/Vol] 21.6 mmol/L 22.0-30.0 [facility] Serum or plasma urea nitroge n measurement (mass/volume)Ordered By: Edmond Branham on 09-23-2022 Urea nitrogen [Mass/Vol] 13 mg/dL 9-23 [facility] Specific gravity Auto test s trip (U) [Rel density]Ordered By: Edmond Branham on 09-23-2022 Specific gravity (U) [Rel density] 1.012 1.001-1.03 0 [facility] Squamous epithelial cells de tection in urine sediment by light microscopyOrdered By: Edmond Branham on 09-23-2022 Epithelial cells.squamous LM Ql (Urine sed) 3-4 [HPF] 0-2 [facility] Troponin I.cardiac [Mass/vol ume] in Serum or Plasma by High sensitivity methodOrdered By: Edmond Branham on 09-23-2022 Troponin I.cardiac High sensitivity method [Mass/Vol] 6 pg/mL 0-15 [facility] Urine bacteria detection by automated methodOrdered By: Edmond Branham on 09-23-2022 Bacteria Auto Ql (U) None seen None Seen [facility] Urine clarity by refractomet ry automatedOrdered By: Edmond Branham on 09-23-2022 Clarity Refractometry automated (U) Clear Clear [facility] Urine culture routineOrdered By: Edmond Branham on 09-23-2022 Bacteria identified Cx Nom (U) 2 Days [facility] Urine glucose measurement by automated test strip (mass/volume)Ordered By: Edmond Branham on 09-23-2022 Glucose Auto test strip (U) [Mass/Vol] Normal mg/dL Normal [facility] Urine hemoglobin detection b y automated test stripOrdered By: Edmond Branham on 09-23-2022 Hemoglobin Auto test strip Ql (U) Negative Negative [facility] Urine leukocyte esterase det ection by automated test stripOrdered By: Edmond Branham on 09-23-2022 Leukocyte esterase Auto test strip Ql (U) 1+ Negative [facility] Urobilinogen Auto test strip (U) [Mass/Vol]Ordered By: Edmond Branham on 09-23-2022 Urobilinogen (U) [Mass/Vol] Normal mg/dL Normal [facility] WBC Auto (Bld) [#/Vol]Ordere d By: Edmond Branham on 09-23-2022 WBC (Bld) [#/Vol] 5.2 10*3/uL 3.8-11.6 [facility] pH Auto test strip (U)Ordere d By: Edmond Branham on 09-23-2022 pH (U) 8.0 [pH] 5.0-9.0 [facility] Prothrombin Time INRon 09-17 INR Coag (PPP) [Relative time] 3.2 {INR} [employer] Other Prothrombin Time INR [employer] Other Prothrombin Time INRon 08-20 INR Coag (PPP) [Relative time] 2.5 {INR} [employer] Other Prothrombin Time INR [facility] [employer] Other Prothrombin Time INRon 07-24 INR Coag (PPP) [Relative time] 3.5 {INR} [employer] Other Prothrombin Time INR [employer] Other Prothrombin Time INRon 06-26 INR Coag (PPP) [Relative time] 1.7 {INR} [employer] Other Prothrombin Time INR [employer] Other Prothrombin Time INRon 06-05 INR Coag (PPP) [Relative time] 2.6 {INR} [employer] Other Prothrombin Time INR [employer] Other Laboratory - CoagulationOrde red By: Marlon Molina on 05-29-2022 PT Coag (PPP) [Time] 12.3 s 9.0-12.9 [facility] Platelet poor plasma interna tional normalized ratio (INR) by coagulation assay (relatOrdered By: Marlon Molina on 05-29-2022 INR Coag (PPP) [Relative time] 1.1 {INR} [facility] Comment on above: INR Therapeutic Rang [...] INR Coag (PPP) [Relative time] 2.1 {INR} [facility] [employer] Other Prothrombin Time INR [facility] [employer] Other Basophils Auto (Bld) [#/Vol] Ordered By: Marlon Molina on 05-20-2022 Basophils (Bld) [#/Vol] 0.0 10*3/uL 0.0-0.2 [facility] Basophils/100 WBC Auto (Bld) Ordered By: Marlon Molina on 05-20-2022 Basophils/100 WBC (Bld) 0.9 % . [facility] Blood hemoglobin measurement (mass/volume)Ordered By: Marlon Molina on 05-20-2022 Hemoglobin (Bld) [Mass/Vol] 13.4 g/dL 11.8-15.4 [facility] Blood leukocytes automated c ount (number/volume)Ordered By: Marlon Molina on 05-20-2022 WBC (Bld) [#/Vol] 5.2 10*3/uL 4.5-11.0 [facility] Body fluid albumin measureme nt (mass/volume)Ordered By: Marlon Molina on 05-20-2022 Albumin (Body fld) [Mass/Vol] 3.6 g/dL 3.2-5.5 [facility] Creatinine and Glomerular fi ltration rate.predicted panel (S/P/Bld)Ordered By: Marlon Molina on 05-20-2022 Creatinine [Mass/Vol] 1.04 mg/dL 0.44-1.03 [facility] Eosinophils Auto (Bld) [#/Vo l]Ordered By: Marlon Molina on 05-20-2022 Eosinophils (Bld) [#/Vol] 0.1 10*3/uL 0.0-0.45 [facility] Eosinophils/100 WBC Auto (Bl d)Ordered By: Marlon Molina on 05-20-2022 Eosinophils/100 WBC (Bld) 1.1 % . [facility] Erythrocyte distribution wid th Auto (RBC) [Ratio]Ordered By: Marlon Molina on 05-20-2022 Erythrocyte distribution width (RBC) [Ratio] 14.6 % 11.9-15.3 [facility] Estimated glomerular filtrat ion rate (GFR) non- AmericanOrdered By: Marlon Molina on 05-20-2022 GFR/1.73 sq M.predicted among non-blacks MDRD (S/P/Bld) [Vol rate/Area] 52 mL/Min [facility] Globulin Calc (S) [Mass/Vol] Ordered By: Marlon Molina on 05-20-2022 Globulin (S) [Mass/Vol] 2.8 g/dL [facility] Hematocrit Auto (Bld) [Volum e fraction]Ordered By: Marlon Molina on 05-20-2022 Hematocrit (Bld) [Volume fraction] 39.7 % 34.0-46.4 [facility] Laboratory - Hematology and Cell countsOrdered By: Marlon Molina on 05-20-2022 Nucleated RBC/100 WBC (Bld) [Ratio] 0.0 % 0-0.5 [facility] Lymphocytes Auto (Bld) [#/Vo l]Ordered By: Marlon Molina on 05-20-2022 Lymphocytes (Bld) [#/Vol] 1.2 10*3/uL 1.00-4.8 [facility] Lymphocytes/100 WBC Auto (Bl d)Ordered By: Marlon Molina on 05-20-2022 Lymphocytes/100 WBC (Bld) 22.5 % . [facility] MCH Auto (RBC) [Entitic mass ]Ordered By: Marlon Molina on 05-20-2022 MCH (RBC) [Entitic mass] 32.5 pg 24.7-34.3 [facility] MCHC Auto (RBC) [Mass/Vol]Or dered By: Marlon Molina on 05-20-2022 MCHC (RBC) [Mass/Vol] 33.7 g/dL 32.0-35.0 [facility] MCV Auto (RBC) [Entitic vol] Ordered By: Marlon Molina on 05-20-2022 MCV (RBC) [Entitic vol] 96.3 fL 80-100 [facility] Monocytes Auto (Bld) [#/Vol] Ordered By: Marlon Molina on 05-20-2022 Monocytes (Bld) [#/Vol] 0.4 10*3/uL 0.0-0.8 [facility] Monocytes/100 WBC Auto (Bld) Ordered By: Marlon Molina on 05-20-2022 Monocytes/100 WBC (Bld) 7.1 % . [facility] Neutrophils Auto (Bld) [#/Vo l]Ordered By: Marlon Molina on 05-20-2022 Neutrophils (Bld) [#/Vol] 3.6 10*3/uL 1.8-7.7 [facility] Neutrophils/100 WBC Auto (Bl d)Ordered By: Marlon Molina on 05-20-2022 Neutrophils/100 WBC (Bld) 68.4 % . [facility] No Panel InformationOrdered By: Marlon Molina on 05-20-2022 Estimated GFR () > 60 mL/Min [facility] Comment on above: GFR estimated refere nce range: According to KDOQI guidelines, <60 ml/min/1.73m2 is sufficient to diagnose a patient with chronic kidney disease. Pharmacy Creatinine Clearance (Chem N/A [facility] Platelet mean volume Auto (B ld) [Entitic vol]Ordered By: Marlon Molina on 05-20-2022 Platelet mean volume (Bld) [Entitic vol] 8.8 fL 6.3-10.7 [facility] Platelets Auto (Bld) [#/Vol] Ordered By: Marlon Molina on 05-20-2022 Platelets (Bld) [#/Vol] 224 10*3/uL 150-450 [facility] Protein [Mass/volume] in Ser um or PlasmaOrdered By: Marlon Molina on 05-20-2022 Protein [Mass/Vol] 6.4 g/dL 6.1-7.9 [facility] RBC Auto (Bld) [#/Vol]Ordere d By: Marlon Molina on 05-20-2022 RBC (Bld) [#/Vol] 4.13 10*6/uL 3.60-5.00 [facility] Serum or plasma alanine lugo otransferase measurement without P-5'-P (enzymatic activiOrdered By: Marlon Molina on 05-20-2022 ALT No additional P-5'-P [Catalytic activity/Vol] 18 U/L 10-60 [facility] Serum or plasma albumin/glob ulin mass ratioOrdered By: Marlon Molina on 05-20-2022 Albumin/Globulin [Mass ratio] 1.3 {ratio} [facility] Serum or plasma alkaline elijah sphatase measurement (enzymatic activity/volume)Ordered By: Marlon Molina on 05-20-2022 ALP [Catalytic activity/Vol] 51 U/L 32-92 [facility] Serum or plasma anion gap de terminationOrdered By: Marlon Molina on 05-20-2022 Anion gap [Moles/Vol] 16.4 mmol/L 6.0-15.0 [facility] Serum or plasma aspartate am inotransferase measurement (enzymatic activity/volume)Ordered By: Marlon Molina on 05-20-2022 AST [Catalytic activity/Vol] 21 U/L 10-42 [facility] Serum or plasma calcium flakita urement (mass/volume)Ordered By: Marlon Molina on 05-20-2022 Calcium [Mass/Vol] 8.8 mg/dL 8.2-10.2 [facility] Serum or plasma chloride patrice surement (moles/volume)Ordered By: Marlon Molina on 05-20-2022 Chloride [Moles/Vol] 99 mmol/L 95-114 [facility] Serum or plasma glucose flakita urement (mass/volume)Ordered By: Marlon Molina on 05-20-2022 Glucose [Mass/Vol] 191 mg/dL 70-100 [facility] Comment on above: ADA recommended refe rence rangeRandom Glucose Reference Range is dependent on time and content of last meal. Glucose of more than 200 mg/dL in a nonstressed, ambulatory subject supports the diagnosis of Diabetes Mellitus. Serum or plasma potassium me asurement (moles/volume)Ordered By: Marlon Molina on 05-20-2022 Potassium [Moles/Vol] 4.1 mmol/L 3.5-5.1 [facility] Serum or plasma sodium measu rement (moles/volume)Ordered By: Marlon Molina on 05-20-2022 Sodium [Moles/Vol] 136 mmol/L 136-146 [facility] Serum or plasma total biliru bin measurement (mass/volume)Ordered By: Marlon Molina on 05-20-2022 Bilirubin [Mass/Vol] 0.3 mg/dL 0.3-1.2 [facility] Serum or plasma total carbon dioxide measurement (moles/volume)Ordered By: Marlon Molina on 05-20-2022 CO2 [Moles/Vol] 24.7 mmol/L 22.0-30.0 [facility] Serum or plasma urea nitroge n measurement (mass/volume)Ordered By: Marlon Molina on 05-20-2022 Urea nitrogen [Mass/Vol] 15 mg/dL 9-23 [facility] Prothrombin Time INRon 05-06 INR Coag (PPP) [Relative time] 1.5 {INR} [employer] Other Prothrombin Time INR [facility] [employer] Other Prothrombin Time INRon 04-08 INR Coag (PPP) [Relative time] 1.8 {INR} [employer] Other Prothrombin Time INR [place] [employer] Other Prothrombin Time INRon 03-13 INR Coag (PPP) [Relative time] 2.3 {INR} [employer] Other Prothrombin Time INR [facility] [employer] Other Prothrombin Time INRon 02-27 INR Coag (PPP) [Relative time] 2.3 {INR} [employer] Other Prothrombin Time INR [facility] [employer] Other COVID-19 Positive/NegativeOr dered By: Tang Mcclellan on 02-26-2022 SARS-CoV-2 (COVID-19) N gene ZHAO+probe Ql (Resp) Negative Negative [facility] Comment on above: Testing for SARS-CoV -2 by RT-PCRThis test was developed and its performance characteristics determined by [employer] and validated at the [facility]. This test has not been FDA [...] INR Coag (PPP) [Relative time] 2.0 {INR} [employer] Other Prothrombin Time INR [facility] [employer] Other Prothrombin Time INRon 01-06 INR Coag (PPP) [Relative time] 1.4 {INR} [employer] Other Prothrombin Time INR [facility] [employer] Other Prothrombin Time INRon 12-23 INR Coag (PPP) [Relative time] 1.7 {INR} [facility] [employer] Other Prothrombin Time INR [facility] [employer] Other Prothrombin Time INRon 12-11 INR Coag (PPP) [Relative time] 2.9 {INR} [facility] [employer] Other Prothrombin Time INR [facility] [employer] Other Prothrombin Time INRon 11-27 INR Coag (PPP) [Relative time] 1.7 {INR} [facility] [employer] Other Prothrombin Time INR [facility] [employer] Other Prothrombin Time INRon 11-12 INR Coag (PPP) [Relative time] 1.9 {INR} [facility] [employer] Other Prothrombin Time INR [facility] [employer] Other Prothrombin Time INRon 10-31 INR Coag (PPP) [Relative time] 2.1 {INR} [facility] [employer] Other Prothrombin Time INR [facility] [employer] Other Prothrombin Time INRon 10-14 INR Coag (PPP) [Relative time] 2.5 {INR} [facility] [employer] Other Prothrombin Time INR [facility] [employer] Other Prothrombin Time INRon 09-30 INR Coag (PPP) [Relative time] 2.6 {INR} [place] [employer] Other Prothrombin Time INR [facility] [employer] Other Prothrombin Time INRon 09-12 INR Coag (PPP) [Relative time] 1.8 {INR} [employer] Other Prothrombin Time INR [facility] [employer] Other Prothrombin Time INRon 08-29 INR Coag (PPP) [Relative time] 2.1 {INR} [employer] Other Prothrombin Time INR [facility] [employer] Other Prothrombin Time INRon 08-15 Prothrombin Time INR 1.5 [facility] [employer] Other Prothrombin Time INRon 08-01 INR Coag (PPP) [Relative time] 2.5 {INR} [employer] Other Prothrombin Time INR [facility] [employer] Other Prothrombin Time INRon 07-15 INR Coag (PPP) [Relative time] 2.6 {INR} [employer] Other Prothrombin Time INR [employer] Other Prothrombin Time INRon 07-03 INR Coag (PPP) [Relative time] 2.4 {INR} [employer] Other [facility]rombin Time [facility] [employer] Other Prothrombin Time INRon 06-19 INR Coag (PPP) [Relative time] 1.8 {INR} [employer] Other Prothrombin Time INR [employer] Other Prothrombin Time INRon 05-28 INR Coag (PPP) [Relative time] 2.1 {INR} [employer] Other Prothrombin Time INR [employer] Other Prothrombin Time INRon 05-15 INR Coag (PPP) [Relative time] 1.6 {INR} [employer] Other Prothrombin Time INR [employer] Other Vital Signs Date Time Vital Sign Value Performing Clinician Facility 02-13-2025 08:40-0400 Body height 154.9 cm Venita Marques Work Phone: [facility] 02-13-2025 08:40-0400 Body mass index (BMI) [Ratio] 34.31 kg/m2 Venita Didion SCHEME TECHNICIAN Work Phone: [facility] 02-13-2025 08:40-0400 Body weight 82.37 kg Venita Didion SCHEME TECHNICIAN Work Phone: [facility] 02-13-2025 08:40-0400 Diastolic blood pressure 70 mm[Hg] Venita Didion SCHEME TECHNICIAN Work Phone: [facility] 02-13-2025 08:40-0400 Heart rate 74 /min Venita Didion SCHEME TECHNICIAN Work Phone: [facility] 02-13-2025 08:40-0400 Respiratory rate 16 /min Venita Didion SCHEME TECHNICIAN Work Phone: [facility] 02-13-2025 08:40-0400 SaO2% (BldA) [Mass fraction] 98 % Venita Didion SCHEME TECHNICIAN Work Phone: [facility] 02-13-2025 08:40-0400 Systolic blood pressure 112 mm[Hg] Venita Didion SCHEME TECHNICIAN Work Phone: [facility] 01-09-2025 08:47-0400 Body height 154.9 cm Kristophervince Herzog DO Work Phone: [facility] 01-09-2025 08:47-0400 Body mass index (BMI) [Ratio] 33.82 kg/m2 Kristopher Herzog DO Work Phone: [facility] 01-09-2025 08:47-0400 Body weight 81.19 kg Kristopher Herzog DO Work Phone: [facility] 01-09-2025 08:47-0400 Diastolic blood pressure 72 mm[Hg] Kristopher Herzog DO Work Phone: [facility] 01-09-2025 08:47-0400 Heart rate 68 /min Kristopher Herzog DO Work Phone: [facility] 01-09-2025 08:47-0400 SaO2% (BldA) [Mass fraction] 97 % Kristopher Herzog DO Work Phone: [facility] 01-09-2025 08:47-0400 Systolic blood pressure 112 mm[Hg] Kristopher Herzog DO Work Phone: [facility] 12-16-2024 09:20-0400 Body height 154.9 cm Radha Itzkowigideon DO Work Phone: [facility] 12-16-2024 09:20-0400 Body mass index (BMI) [Ratio] 32.5 kg/m2 Radha Itzkowitz DO Work Phone: [facility] 12-16-2024 09:20-0400 Body weight 78.02 kg Radha Itzdunia DO Work Phone: [facility] 12-14-2024 09:01-0400 Body height 154.9 cm Kristopher Herzog DO Work Phone: [facility] 12-14-2024 09:01-0400 Body mass index (BMI) [Ratio] 32.61 kg/m2 Kristopher Herzog DO Work Phone: [facility] 12-14-2024 09:01-0400 Body weight 78.29 kg Kristopher Herzog DO Work Phone: [facility] 12-14-2024 09:01-0400 Heart rate 72 /min Kristopher Herzog DO Work Phone: [facility] 12-14-2024 09:01-0400 SaO2% (BldA) [Mass fraction] 99 % Kristopher Herzog DO Work Phone: [facility] 10-25-2024 14:36-0500 Diastolic blood pressure 58 mm[Hg] Venita Didion SCHEME TECHNICIAN Work Phone: [facility] 10-25-2024 14:36-0500 Heart rate 74 /min Venita Didion SCHEME TECHNICIAN Work Phone: [facility] 10-25-2024 14:36-0500 Respiratory rate 16 /min Venita Didion SCHEME TECHNICIAN Work Phone: [facility] 10-25-2024 14:36-0500 SaO2% (BldA) [Mass fraction] 98 % Venita Marques SCHEME TECHNICIAN Work Phone: [facility] 10-25-2024 14:36-0500 Systolic blood pressure 120 mm[Hg] Venita Marques SCHEME TECHNICIAN Work Phone: [facility] 10-07-2024 09:08-0500 Body height 154.94 cm [facility] 10-07-2024 09:08-0500 Body mass index (BMI) [Ratio] 33.6 kg/m2 [facility] 10-07-2024 09:08-0500 Body weight 80.73 kg [facility] 10-07-2024 09:08-0500 Diastolic blood pressure 75 mm[Hg] [facility] 10-07-2024 09:08-0500 Heart rate 73 /min [facility] 10-07-2024 09:08-0500 Systolic blood pressure 127 mm[Hg] [facility] 10-03-2024 09:14-0500 Body height 156.2 cm Kristopher Chuy DO Work Phone: [facility] 10-03-2024 09:14-0500 Body mass index (BMI) [Ratio] 33.09 kg/m2 Kristopher Chuy DO Work Phone: [facility] 10-03-2024 09:14-0500 Body weight 80.74 kg Kristopher Herzog DO Work Phone: [facility] 10-03-2024 09:14-0500 Diastolic blood pressure 58 mm[Hg] Kristopher Herzog DO Work Phone: [facility] 10-03-2024 09:14-0500 Heart rate 74 /min Kristopher Herzog DO Work Phone: [facility] 10-03-2024 09:14-0500 SaO2% (BldA) [Mass fraction] 99 % Kristopher Herzog DO Work Phone: [facility] 02-10-2025 09:14-0500 Systolic blood pressure 120 mm[Hg] Kristopher Herzog DO Work Phone: [facility] 06-29-2024 10:39-0500 Body height 154.94 cm [facility] 06-29-2024 10:39-0500 Body mass index (BMI) [Ratio] 33.8 kg/m2 [facility] 06-29-2024 10:39-0500 Body weight 81.19 kg [facility] 06-22-2024 08:50-0400 Body height 156.2 cm Adam Rodriguez SCHEME TECHNICIAN Work Phone: [facility] 06-22-2024 08:50-0400 Body mass index (BMI) [Ratio] 33.09 kg/m2 Adam Rodriguez SCHEME TECHNICIAN Work Phone: [facility] 06-22-2024 08:50-0400 Body weight 80.74 kg Adam Rodriguez SCHEME TECHNICIAN Work Phone: [facility] 06-22-2024 08:50-0400 Diastolic blood pressure 74 mm[Hg] Adam Rodriguez SCHEME TECHNICIAN Work Phone: [facility] 06-22-2024 08:50-0400 Heart rate 79 /min Adma Rodriguez SCHEME TECHNICIAN Work Phone: [facility] 06-22-2024 08:50-0400 SaO2% (BldA) [Mass fraction] 99 % Adam Rodriguez SCHEME TECHNICIAN Work Phone: [facility] 06-22-2024 08:50-0400 Systolic blood pressure 120 mm[Hg] Adam Rodriguez SCHEME TECHNICIAN Work Phone: [facility] 04-29-2024 08:53-0400 Body height 156.2 cm Radha Itzkowitz DO Work Phone: [facility] 04-29-2024 08:53-0400 Body mass index (BMI) [Ratio] 33.46 kg/m2 Radha Itzkowitz DO Work Phone: [facility] 04-29-2024 08:53-0400 Body weight 81.65 kg Radha Itzkowitz DO Work Phone: [facility] 04-29-2024 08:53-0400 Diastolic blood pressure 74 mm[Hg] Radha Itzkowitz DO Work Phone: [facility] 04-29-2024 08:53-0400 Systolic blood pressure 122 mm[Hg] Radha Itzkowitz DO Work Phone: [facility] 02-09-2024 11:03-0400 Diastolic blood pressure 60 mm[Hg] DO Kristopher Chuy Work Phone: [facility] 02-09-2024 11:03-0400 Heart rate 76 /min DO Kristopher Chuy Work Phone: [facility] 02-09-2024 11:03-0400 Respiratory rate 16 /min DO Kristopher Herzog Work Phone: [facility] 02-09-2024 11:03-0400 SaO2% (BldA) [Mass fraction] 99 % DO Kristopher Herzog Work Phone: [facility] 02-09-2024 11:03-0400 Systolic blood pressure 128 mm[Hg] DO Kristopher Chuy Work Phone: [facility] 02-09-2024 09:32-0400 Body height 154.94 cm DO Kristopher Herzog Work Phone: [facility] 02-09-2024 09:32-0400 Body temperature 99 [degF] DO Kristopher Chuy Work Phone: [facility] 02-09-2024 09:32-0400 Body weight 78.92 kg DO Kristopher Chuy Work Phone: [facility] 12-28-2023 11:17-0400 Diastolic blood pressure 77 mm[Hg] DO Kristopher Chuy Work Phone: [facility] 12-28-2023 11:17-0400 Heart rate 77 /min DO Kristopher Chuy Work Phone: [facility] 12-28-2023 11:17-0400 Respiratory rate 16 /min DO Kristopher Herzog Work Phone: [facility] 12-28-2023 11:17-0400 SaO2% (BldA) [Mass fraction] 99 % DO Kristopher Herzog Work Phone: [facility] 12-28-2023 11:17-0400 Systolic blood pressure 113 mm[Hg] DO Kristopher Chuy Work Phone: [facility] 12-28-2023 08:33-0400 Body height 154.94 cm DO Kristopher Herzog Work Phone: [facility] 12-28-2023 08:33-0400 Body weight 79.83 kg DO Kristopher Herzog Work Phone: [facility] 12-07-2023 10:06-0400 Body height 156.21 cm DO Kristopher Herzog Work Phone: [facility] 12-07-2023 10:06-0400 Body mass index (BMI) [Ratio] 32.7 kg/m2 DO Kristopher Herzog Work Phone: [facility] 12-07-2023 10:06-0400 Body weight 79.83 kg DO Kristopher Herzog Work Phone: [facility] 12-07-2023 10:06-0400 Diastolic blood pressure 74 mm[Hg] DO Kristopher Chuy Work Phone: [facility] 12-07-2023 10:06-0400 Heart rate 79 /min DO Kristopher Chuy Work Phone: [facility] 12-07-2023 10:06-0400 Systolic blood pressure 142 mm[Hg] DO Kristopher Chuy Work Phone: [facility] 12-15-2022 17:21-0400 Body temperature 98.1 [degF] DO Kristopher Chuy Work Phone: [facility] 12-15-2022 17:21-0400 Diastolic blood pressure 77 mm[Hg] DO Kristopher Chuy Work Phone: [facility] 12-15-2022 17:21-0400 Heart rate 83 /min DO Kristopher Chuy Work Phone: [facility] 12-15-2022 17:21-0400 Respiratory rate 16 /min DO Kristopher Chuy Work Phone: [facility] 12-15-2022 17:21-0400 SaO2% (BldA) [Mass fraction] 99 % DO Kristopher Chuy Work Phone: [facility] 12-15-2022 17:21-0400 Systolic blood pressure 158 mm[Hg] DO Kristophervince Herzog Work Phone: [facility] 12-15-2022 06:00-0400 Body weight 85.3 kg DO Kristopher Herzog Work Phone: [facility] 12-13-2022 20:01-0400 Diastolic blood pressure 81 mm[Hg] DO Kristopher Herzog Work Phone: [facility] 12-13-2022 20:01-0400 Heart rate 75 /min DO Kristopher Herzog Work Phone: [facility] 12-13-2022 20:01-0400 Respiratory rate 18 /min DO Kristophervince Herzog Work Phone: [facility] 12-13-2022 20:01-0400 SaO2% (BldA) [Mass fraction] 99 % DO Kristopher Chuy Work Phone: [facility] 12-13-2022 20:01-0400 Systolic blood pressure 167 mm[Hg] DO Kristopher Chuy Work Phone: [facility] 12-13-2022 13:48-0400 Body height 160.02 cm DO Kristopher Chuy Work Phone: [facility] 12-13-2022 13:48-0400 Body temperature 98.6 [degF] DO Kristopher Chuy Work Phone: [facility] 12-13-2022 13:48-0400 Body weight 88.3 kg DO Kristopher Chuy Work Phone: [facility] 09-23-2022 19:59-0500 Diastolic blood pressure 72 mm[Hg] DO Kristopher Chuy Work Phone: [facility] 09-23-2022 19:59-0500 Heart rate 77 /min DO Kristopher Chuy Work Phone: [facility] 09-23-2022 19:59-0500 Respiratory rate 18 /min DO Kristopher Chuy Work Phone: [facility] 09-23-2022 19:59-0500 SaO2% (BldA) [Mass fraction] 97 % DO Kristopher Chuy Work Phone: [facility] 09-23-2022 19:59-0500 Systolic blood pressure 168 mm[Hg] DO Kristopher Chuy Work Phone: [facility] 09-23-2022 18:17-0500 Body height 160.02 cm DO Kristopher Chuy Work Phone: [facility] 09-23-2022 18:17-0500 Body temperature 98.7 [degF] DO Kristopher Chuy Work Phone: [facility] 09-23-2022 18:17-0500 Body weight 85.7 kg DO Kristopher Chuy Work Phone: [facility] 07-16-2022 09:56-0500 Body temperature 98.8 [degF] DO Kristopher Chuy Work Phone: [facility] 07-16-2022 09:56-0500 Diastolic blood pressure 70 mm[Hg] DO Kristopher Chuy Work Phone: [facility] 07-16-2022 09:56-0500 Heart rate 79 /min DO Kristopher Chuy Work Phone: [facility] 07-16-2022 09:56-0500 Respiratory rate 17 /min DO Kristopher Chuy Work Phone: [facility] 07-16-2022 09:56-0500 SaO2% (BldA) [Mass fraction] 98 % DO Kristopher Chuy Work Phone: [facility] 07-16-2022 09:56-0500 Systolic blood pressure 150 mm[Hg] DO Kristopher Chuy Work Phone: [facility] 07-16-2022 08:29-0500 Body height 160.02 cm DO Kristopher Chuy Work Phone: [facility] 07-16-2022 08:29-0500 Body weight 83 kg DO Kristopher Chuy Work Phone: [facility] 06-04-2022 09:13-0400 Body temperature 97.9 [degF] DO Kristopher Chuy Work Phone: [facility] 06-04-2022 09:13-0400 Diastolic blood pressure 64 mm[Hg] DO Kristopher Chuy Work Phone: [facility] 06-04-2022 09:13-0400 Heart rate 93 /min DO Kristopher Chuy Work Phone: [facility] 06-04-2022 09:13-0400 Respiratory rate 20 /min DO Kristopher Chuy Work Phone: [facility] 06-04-2022 09:13-0400 SaO2% (BldA) [Mass fraction] 97 % DO Kristopher Chuy Work Phone: [facility] 06-04-2022 09:13-0400 Systolic blood pressure 134 mm[Hg] DO Kristopher Chuy Work Phone: [facility] 05-29-2022 08:18-0400 Body temperature 98.1 [degF] DO Kristopher Herzog Work Phone: [facility] 05-29-2022 08:18-0400 Diastolic blood pressure 76 mm[Hg] DO Kristopher Herzog Work Phone: [facility] 05-29-2022 08:18-0400 Heart rate 77 /min DO Kristopher Herzog Work Phone: [facility] 05-29-2022 08:18-0400 Respiratory rate 20 /min DO Kristopher Herzog Work Phone: [facility] 05-29-2022 08:18-0400 SaO2% (BldA) [Mass fraction] 98 % DO Kristopher Herzog Work Phone: [facility] 05-29-2022 08:18-0400 Systolic blood pressure 146 mm[Hg] DO Kristopher Herzog Work Phone: [facility] 02-11-2022 08:39-0400 Body weight 0 kg DO Kristopher Herzog Work Phone: [facility] 01-28-2022 16:15-0400 Body height 157.48 cm Tang Mcclellan Other [employer] Other 01-28-2022 16:15-0400 Body mass index (BMI) [Ratio] 31.64 kg/m2 Tang Mcclellan Other [employer] [facility] [employer] Other 01-28-2022 16:15-0400 Body weight 78.47 kg Tang Mcclellan Other [employer] Other Encounters Encounter Date Encounter Type Care Provider Facility Start: 04-20-2025 End: 04-20-2025 Cindy Branham DPM Work Phone: [facility] Start: 04-20-2025 End: 04-20-2025 Bamboo flowsheet Marlon Olman Yonas DPM Work Phone: [facility] Start: 04-20-2025 End: 04-20-2025 Postop follow up visit related to original px [facility] Comment on above: Posterior tibial ten donitis, right (Primary Dx); Surgery follow-up examination; Hallux malleus, right; Ulcer of great toe, right, limited to breakdown of skin (HCC) Start: 04-20-2025 End: 04-20-2025 ambulatory MARLON BRANHAM Not Available Start: 04-05-2025 End: 04-05-2025 Bamboo flowsheet Marlon Branham DPM Work Phone: [facility] Start: 04-05-2025 End: 04-05-2025 Bamboo flowsheet Marlon Olman Yonas DPM Work Phone: [facility] Start: [...] up visit related to original px Marlon Olman Yonas DPM Work Phone: [facility] Comment on above: Surgery follow-up ex amination (Primary Dx); Hallux malleus, right; Right foot pain; Ulcer of great toe, right, limited to breakdown of skin (HCC) Start: 03-22-2025 End: 03-22-2025 ambulatory MARLON BRANHAM Not Available Start: 03-17-2025 End: 03-17-2025 ambulatory Kristopher Herzog DO Work Phone: [facility] Work Phone: Start: 03-17-2025 End: 03-17-2025 Patient encounter procedure Kiersten Qureshi [facility] Work Phone: Start: 03-14-2025 End: 03-14-2025 Bamboo flowsheet Marlon Branham DPM Work Phone: [facility] Start: 03-14-2025 End: 03-14-2025 Bamboo flowsheet Marlon Branham DPM Work Phone: [facility] Start: 03-14-2025 End: 03-14-2025 ambulatory MARLON BRANHAM Not Available Start: 03-14-2025 End: 03-14-2025 Postop follow up visit related to original px Marlon Olman Yonas DPM Work Phone: [facility] Comment on above: Surgery follow-up ex amination (Primary Dx); Hallux malleus, right; Right foot pain Start: 03-13-2025 End: 03-13-2025 ambulatory Kristopher Herzog DO Work Phone: [facility] Work Phone: Start: 03-13-2025 End: 03-13-2025 Patient encounter procedure Tita Roberts [facility] Work Phone: Start: 03-09-2025 End: 03-09-2025 Bamboo flowsheet Caro HEWITT Work Phone: [facility] Start: 03-09-2025 End: 03-09-2025 Bamboo flowsheet Caro HEWITT Work Phone: [facility] Start: 03-09-2025 End: 03-09-2025 ambulatory Kristopher Herzog DO Work Phone: [facility] Work Phone: Start: 03-09-2025 End: 03-09-2025 Patient encounter procedure Tita Roberts [facility] Work Phone: Start: 03-09-2025 End: 03-09-2025 Office outpatient new 30 minutes Caro HEWITT Work Phone: [facility] Comment on above: Acute pain of left k nee (Primary Dx); Primary osteoarthritis of left knee Start: 03-09-2025 End: 03-09-2025 ambulatory CARO HUGO Not Available Start: 03-07-2025 End: 03-07-2025 Bamboo flowsheet Marlon Branham DPM Work Phone: [facility] Start: 03-07-2025 End: 03-07-2025 Bamboo flowsheet Marlon Branham DPM Work Phone: [facility] Start: 03-07-2025 End: 03-07-2025 Postop follow up visit related to original px Marlon Branham DPM Work Phone: [facility] Comment on above: Surgery follow-up ex amination (Primary Dx); Hallux malleus, right; Right foot pain; Ulcer of great toe, right, limited to breakdown of skin (HCC) Start: 03-07-2025 End: 03-07-2025 ambulatory MARLON BRANHAM Not Available Start: 02-22-2025 End: 02-22-2025 Telephone encounter Venita Marques NP Work Phone: [facility] Start: 02-22-2025 End: 02-22-2025 ambulatory Kristopher Herzog DO Work Phone: [facility] Work Phone: Start: 02-22-2025 End: 02-22-2025 Patient encounter procedure Tita Roberts [facility] Work Phone: Start: 02-16-2025 End: 02-16-2025 Bamboo flowsheet Marlon Branham DPM Work Phone: [facility] Start: 02-16-2025 End: 02-16-2025 Bamboo flowsheet Marlon Branham DPM Work Phone: [facility] Start: 02-16-2025 End: 02-16-2025 ambulatory MARLON BRANHAM Not Available Start: 02-16-2025 End: 02-16-2025 Office outpatient visit 15 minutes Marlon Branham DPM Work Phone: [facility] Comment on above: Hallux malleus, righ t (Primary Dx); Right foot pain Start: 02-13-2025 End: 02-13-2025 Office outpatient visit 15 minutes Venita Marques SCHEME TECHNICIAN Work Phone: [facility] Comment on above: Acute pain of left k nee (Primary Dx); Primary osteoarthritis of left knee; Hallux malleus of right foot; Callus; Preoperative clearance Start: 02-13-2025 End: 02-13-2025 Preoperative state Venita Marques SCHEME TECHNICIAN Work Phone: [facility] Start: 02-13-2025 End: 02-13-2025 ambulatory VENITA MARQUES Not Available Start: 02-09-2025 End: 02-09-2025 Patient encounter procedure Kiersten Qureshi [facility] Work Phone: Start: 02-01-2025 End: 02-01-2025 Bamboo flowsheet Marlon Branham DPM Work Phone: [facility] Start: 02-01-2025 End: 02-01-2025 Bamboo flowsheet Marlon Branham DPM Work Phone: [facility] Start: 02-01-2025 End: 02-01-2025 ambulatory Kristopher Herzog DO Work Phone: [facility] Work Phone: Start: 02-01-2025 End: 02-01-2025 Patient encounter procedure Kristopher Herzog DO Work Phone: [facility] Work Phone: Start: 02-01-2025 End: 02-01-2025 ambulatory MARLON BRANHAM Not Available Start: 02-01-2025 End: 02-01-2025 Office outpatient visit 15 minutes Marlon Branham DPM Work Phone: [facility] Comment on above: Onychomycosis (Prima ry Dx); Corns and callosities; Hallux malleus, right; Type II diabetes mellitus with neurological manifestations (CMS/HCC); Pain in both feet Start: 01-11-2025 End: 01-11-2025 Clinisync Result Encounter Kristopher Herzog DO Work Phone: [facility] External Department Unsolicited Start: 01-11-2025 End: 01-11-2025 Clinisync Result Encounter Kristopher Herzog DO Work Phone: [facility] External Department Unsolicited Start: 01-09-2025 End: 01-09-2025 Bamboo flowsheet Kristopher Herzog DO Work Phone: [facility] Start: 01-09-2025 End: 01-09-2025 Bamboo flowsheet Kristopher Herzog DO Work Phone: [facility] Start: 01-09-2025 End: 01-09-2025 Office outpatient visit 40 minutes Kristopher Herzog DO Work Phone: [facility] Comment on above: Medicare annual well ness visit, subsequent (Primary Dx); Advance care planning; Type 2 diabetes mellitus with stage 3a chronic kidney disease, with long-term current use of insulin (HCC) (CMS/HCC); Diabetic peripheral neuropathy associated with type 2 diabetes mellitus (CMS/HCC); 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); Mixed hyperlipidemia (CMS/HCC); Steatosis of liver; Primary hypertension (CMS/HCC); Chronic deep vein thrombosis (DVT) of femoral vein of left lower extremity (CMS/HCC); Spinal stenosis of lumbosacral region; 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 Start: 01-09-2025 End: 01-09-2025 Patient encounter procedure Kristopher Herzog DO Work Phone: [facility] Work Phone: Start: 01-09-2025 End: 01-09-2025 ambulatory KRISTOPHER HERZOG Not Available Start: 01-05-2025 End: 01-05-2025 Clinisync Result Encounter Kristopher Herzog DO Work Phone: [facility] External Department Unsolicited Start: 01-05-2025 End: 01-05-2025 Clinisync Result Encounter Kristopher Herzog DO Work Phone: [facility] External Department Unsolicited Start: 01-04-2025 End: 01-04-2025 ambulatory Kristopher Herzog DO Work Phone: [facility] Work Phone: Start: 01-04-2025 End: 01-04-2025 Patient encounter procedure Kristopher Herzog DO Work Phone: [facility] Work Phone: Start: 12-16-2024 End: 12-16-2024 ambulatory RADHA VERDUZCO Not Available Start: 12-16-2024 End: 12-16-2024 Office outpatient visit 25 minutes Radha Verduzco DO Work Phone: [facility] Comment on above: Axillary lymphadenop athy (Primary Dx); H/O diagnostic mammography Start: 12-14-2024 End: 12-14-2024 Bamboo flowsheet Kristopher Herzog DO Work Phone: [facility] Start: 12-14-2024 End: 12-14-2024 Bamboo flowsheet Kristopher Herzog DO Work Phone: [facility] Start: 12-14-2024 End: 12-14-2024 Office outpatient visit 40 minutes Kristopher Herzog DO Work Phone: [facility] Comment on above: Diabetic peripheral neuropathy associated with type 2 diabetes mellitus (CMS/HCC) (Primary Dx); 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 of insulin (CMS/HCC); Mixed hyperlipidemia (CMS/HCC); Hypercoagulable state (CMS/HCC); 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; Steatosis of liver; Primary hypertension (CMS/HCC); Venous insufficiency; Primary osteoarthritis of left knee Start: 12-14-2024 End: 12-14-2024 ambulatory KRISTOPHER HERZOG Not Available Start: 12-07-2024 End: 12-07-2024 ambulatory Radha Verduzco Facility:[facility] Start: 12-07-2024 End: 12-07-2024 Patient encounter procedure Kristopher Herzog DO Work Phone: [facility] Comment on above: Leg numbness (Primar y Dx) Start: 11-30-2024 End: 11-30-2024 ambulatory [facility] Work Phone: Start: 11-30-2024 End: 11-30-2024 Patient encounter procedure [facility] Work Phone: Start: 11-23-2024 End: 11-23-2024 ambulatory VENITA L DIDION Not Available Start: 11-15-2024 End: 11-15-2024 ambulatory VENITA L DIDION Not Available Start: 11-02-2024 End: 11-02-2024 ambulatory [facility] Work Phone: Start: 11-02-2024 End: 11-02-2024 Patient encounter procedure [facility] Work Phone: Start: 10-31-2024 End: 10-31-2024 ambulatory MARLON BRANHAM Not Available Start: 10-27-2024 End: 10-27-2024 ambulatory VENITA MARQUES Not Available Start: 10-25-2024 End: 10-25-2024 ambulatory VENITA Ye DIDION Not Available Start: 10-25-2024 End: 10-25-2024 Office outpatient visit 25 minutes Venita Marques SCHEME TECHNICIAN Work Phone: [facility] Comment on above: Nonintractable heada shelby, unspecified chronicity pattern, unspecified headache type (Primary Dx); Neck pain; Paresthesia of left arm; Numbness of fingers Start: 10-23-2024 Non-patient / Non-visit [facility] Work Phone: Start: 10-07-2024 End: 10-07-2024 ambulatory [facility] Work Phone: Start: 10-07-2024 End: 10-07-2024 Patient encounter procedure [facility] Work Phone: Start: 10-05-2024 End: 10-05-2024 ambulatory [facility] Work Phone: Start: 10-05-2024 End: 10-05-2024 Patient encounter procedure [facility] Work Phone: Start: 10-03-2024 End: 10-03-2024 Office outpatient visit 25 minutes Kristopher Herzog DO Work Phone: [facility] Comment on above: Primary osteoarthrit is of right knee (Primary Dx); Hypercoagulable state (CMS/HCC); Diabetic peripheral neuropathy associated with type 2 diabetes mellitus (CMS/HCC); Primary hypertension (CMS/HCC); Ulcerative colitis without complications, unspecified location (CMS/HCC); 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); 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; Sacral ulcer, limited to breakdown of skin (CMS/HCC) Start: 10-03-2024 End: 10-03-2024 ambulatory KRISTOPHER HERZOG Not Available Start: 09-09-2024 End: 09-09-2024 ambulatory [facility] Work Phone: Start: 09-09-2024 End: 09-09-2024 Patient encounter procedure [facility] Work Phone: Start: 08-03-2024 End: 08-03-2024 Patient encounter procedure [facility] Work Phone: Start: 08-01-2024 End: 08-01-2024 Bamboo flowsheet Marlon Branham DPM Work Phone: [facility] Start: 08-01-2024 End: 08-01-2024 Bamboo flowsheet Marlon Branham DPM Work Phone: [facility] Start: 08-01-2024 End: 08-01-2024 Office outpatient visit 10 minutes Marlon Branham DPM Work Phone: [facility] Comment on above: 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) (Primary Dx); Onychomycosis; Corns and callosities; Hallux malleus, left; Pain in both feet Start: 08-01-2024 End: 08-01-2024 ambulatory MARLON BRANHAM Not Available Start: 07-04-2024 End: 07-04-2024 ambulatory [facility] Work Phone: Start: 07-04-2024 End: 07-04-2024 Patient encounter procedure [facility] Work Phone: Start: 06-29-2024 End: 06-29-2024 ambulatory [facility] Work Phone: Start: 06-29-2024 End: 06-29-2024 Patient encounter procedure [facility] Work Phone: Start: 06-22-2024 End: 06-22-2024 Office outpatient visit 25 minutes Adam Rodriguez NP Work Phone: [facility] Comment on above: Primary hypertension (CMS/HCC) (Primary Dx); Mixed hyperlipidemia ([facility]/HCC); Obstructive sleep apnea syndrome; Peripheral venous insufficiency; Chronic deep vein thrombosis (DVT) of femoral vein of left lower extremity ([facility]/HCC); 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 machines and devices; Diabetic peripheral neuropathy associated with type 2 diabetes mellitus ([facility]); Gastroesophageal reflux disease without esophagitis; Hypercoagulable state ([facility]); 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; 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 of 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 ([facility]); OAB (overactive bladder); Class 1 obesity; Spinal stenosis of lumbosacral region; Ulcerative colitis without complications, unspecified location ([facility]); Need for immunization against influenza; Atrophic vaginitis; Bilateral leg edema Start: 06-22-2024 End: 06-22-2024 ambulatory ADAM RODRIGUEZ Not Available Start: 06-17-2024 End: 06-18-2024 Orders Only Adam Rodriguez SCHEME TECHNICIAN Work Phone: [facility] External Department Unsolicited Start: 06-06-2024 End: 06-06-2024 ambulatory [facility] Work Phone: Start: 06-06-2024 End: 06-06-2024 Patient encounter procedure [facility] Phys[facility] Work Phone: Start: 05-09-2024 End: 05-09-2024 ambulatory DO Kristopher Herzog Work Phone: [facility] Work Phone: Start: 05-09-2024 End: 05-09-2024 Patient encounter procedure DO Kristopher Herzog Work Phone: [facility] Work Phone: Start: 04-29-2024 End: 04-29-2024 Office outpatient visit 25 minutes Radha Verduzco DO Work Phone: [facility] Comment on above: Axillary lymphadenop athy (Primary Dx) Start: 04-29-2024 End: 04-29-2024 ambulatory RADHA DAVISStanDUNIA Not Available Start: 04-27-2024 End: 04-27-2024 Bamboo flowsheet Marlon Branham DPM Work Phone: [facility] Start: 04-27-2024 End: 04-27-2024 Bamboo flowsheet Marlon Branham DPM Work Phone: [facility] Start: 04-27-2024 End: 04-27-2024 ambulatory MARLON BRANHAM Not Available Start: 04-27-2024 End: 04-27-2024 Patient encounter procedure Marlon Branham DPM Work Phone: [facility] Comment on above: 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) (Primary Dx); Onychomycosis; Corns and callosities; Pain in both feet Start: 04-14-2024 End: 04-14-2024 ambulatory DO Kristopher Herzog Work Phone: [facility] Work Phone: Start: 04-14-2024 End: 04-14-2024 Patient encounter procedure DO Kristopher Herzog Work Phone: [facility] Work Phone: Start: 03-14-2024 End: 03-14-2024 ambulatory DO Kristopher Herzog Work Phone: [facility] Work Phone: Start: 03-14-2024 End: 03-14-2024 Patient encounter procedure DO Kristopher Herzog Work Phone: [facility] Phys[facility] Work Phone: Start: 02-17-2024 End: 02-17-2024 ambulatory DO Kristopher Herzog Work Phone: [facility] Work Phone: Start: 02-17-2024 End: 02-17-2024 Patient encounter procedure DO Kristopher Herzog Work Phone: [facility] Phys[facility] Work Phone: Start: 02-09-2024 End: 02-09-2024 Emergency department patient visit DO Kristopher Herzog Work Phone: [facility] Work Phone: Start: 01-20-2024 End: 01-20-2024 ambulatory DO Kristopher Herzog Work Phone: [facility] Work Phone: Start: 01-20-2024 End: 01-20-2024 Patient encounter procedure DO Kristopher Herzog Work Phone: [facility] Phys[facility] Work Phone: Start: 01-05-2024 End: 01-05-2024 Patient encounter procedure DO Kristopher Herzog Work Phone: [facility] Phys[facility] Work Phone: Start: 12-28-2023 Non-patient / Non-visit DO Preet Herzog Work Phone: [facility] Physician [facility] G[facility]enter[facility] Work Phone: Start: 12-28-2023 End: 12-28-2023 Admission to same day surgery center DO Kristopher Herzog Work Phone: [facility] Work Phone: Start: 12-28-2023 End: 12-28-2023 ambulatory DO Kristopher Herzog Work Phone: [facility] Work Phone: Start: 12-14-2023 End: 12-14-2023 ambulatory DO Kristopher Herzog Work Phone: [facility] Work Phone: Start: 12-14-2023 End: 12-14-2023 Patient encounter procedure DO Kristopher Herzog Work Phone: [facility] Work Phone: Start: 12-07-2023 End: 12-07-2023 ambulatory DO Kristopher Herzog Work Phone: [facility] Work Phone: Start: 12-07-2023 End: 12-07-2023 Patient encounter procedure DO Kristopher Herzog Work Phone: [facility] Work Phone: Start: 12-07-2023 End: 12-07-2023 ambulatory DO Kristopher Herzog Work Phone: [facility] Work Phone: Start: 12-07-2023 End: 12-07-2023 Patient encounter procedure DO Kristopher Herzog Work Phone: [facility] Gastroenter[facility] Work Phone: Start: 11-09-2023 End: 11-09-2023 ambulatory DO Kristopher Herzog Work Phone: [facility] Work Phone: Start: 11-09-2023 End: 11-09-2023 Patient encounter procedure DO Kristopher Herzog Work Phone: [facility] Work Phone: Start: 10-05-2023 ([facility] R A/c) [facility] Re peat A/C Lauren Vance [facility] Start: 10-05-2023 End: 10-05-2023 ambulatory DO Kristopher Herzog Work Phone: [employer] Other Start: 10-05-2023 End: 10-05-2023 Discharged Recurring DO Kristophervince Herzog Work Phone: [facility] Work Phone: Start: 09-29-2023 End: 09-29-2023 ambulatory Lauren Vance Other [employer] Other Start: 09-29-2023 Telephone encounter Lauren Vance [facility] Start: 09-24-2023 Telephone encounter Kimberly Garfield [place] [facility] Start: 09-07-2023 ([facility] R A/c) [facility] Re peat A/C [facility] Start: 09-07-2023 End: 09-07-2023 ambulatory Rivers Sanner Other [employer] Other Start: 08-11-2023 ([facility] R A/c) [facility] Re peat A/C Rivers [facility] Start: 08-11-2023 End: 08-11-2023 ambulatory Rivers Sanner Other [employer] Other Start: 07-14-2023 ([facility] R A/c) [facility] Re peat A/C Rviers [facility] Start: 07-14-2023 End: 07-14-2023 ambulatory Rivers Sanner Other [employer] Other Start: 06-15-2023 ([facility] R A/c) [facility] Re peat A/C [facility] Start: 06-15-2023 End: 06-15-2023 ambulatory Rivers Sanner Other [employer] Other Start: 06-03-2023 End: 06-03-2023 ambulatory DO Kristopher Herzog Work Phone: [facility] Work Phone: Start: 06-03-2023 End: 06-03-2023 Patient encounter procedure DO Kristopher Herzog Work Phone: [facility]-Ultrasound Cntr for Breast Car Start: 05-25-2023 Registered Recurring DO Manuela Herzog Work Phone: [facility] Work Phone: Start: 04-30-2023 ([facility] R A/c) [facility] Re peat A/C Lauren Paredest [facility] Start: 04-30-2023 End: 04-30-2023 ambulatory Lauren Paredest Other [employer] Other Start: 04-08-2023 ([facility] R A/c) [facility] Re peat A/C Kiersten Kenmare [facility] Start: 04-08-2023 End: 04-08-2023 ambulatory Kiersten Kenmare Other [employer] Other Start: 03-23-2023 ([facility] R A/c) [facility] Re peat A/C Kiersten Titus [facility] Start: 03-23-2023 End: 03-23-2023 ambulatory Kiersten Titus Other [employer] Other Start: 03-11-2023 ([facility] R A/c) [facility] Re peat A/C Kiersten Kenmare [facility] Start: 03-11-2023 End: 03-11-2023 ambulatory Kiersten Titus Other [employer] Other Start: 02-23-2023 ([facility] R A/c) [facility] Re peat A/C Kiersten Kenmare [facility] Start: 02-23-2023 End: 02-23-2023 ambulatory Kiersten Kenmare Other [employer] Other Start: 12-17-2022 End: 12-17-2022 ambulatory DO Kristopher Herzog Work Phone: [facility] Work Phone: Start: 12-17-2022 End: 12-17-2022 Departed Referred DO Kristopher Chuy Work Phone: [facility]-Lab [facility] Work Phone: Start: 12-15-2022 ambulatory Facility:[id number] Start: 12-13-2022 End: 12-15-2022 Evaluation and management of inpatient DO Kristopher Herzog Work Phone: [facility] Work Phone: Start: 12-13-2022 observation encounter DO Wilfrido Herzog Work Phone: [facility] Work Phone: Start: 12-10-2022 ([facility] R A/c) [facility] Re peat A/C Kiersten Qureshi [facility] Start: 12-10-2022 End: 12-10-2022 ambulatory Kiersten Qureshi Other [employer] Other Start: 12-10-2022 Registered Recurring DO Manuela cierra Chuy Work Phone: [facility] Work Phone: Start: 12-01-2022 End: 12-01-2022 ambulatory DO Kristopher Herzog Work Phone: [facility] Work Phone: Start: 12-01-2022 End: 12-01-2022 Patient encounter procedure DO Kristopher Herzog Work Phone: [facility]-Center for Breast Care Work Phone: Start: 11-12-2022 ([facility] R A/c) [facility] Re peat A/C Kiersten Qureshi [facility] Start: 11-12-2022 End: 11-12-2022 ambulatory Kiersten Qureshi Other [employer] Other Start: 11-12-2022 Registered Recurring DO Manuela Herzog Work Phone: [facility] Work Phone: Start: 10-15-2022 ([facility] R A/c) [facility] Re peat A/C Kierstne Titus [facility] Start: 10-15-2022 End: 10-15-2022 ambulatory Kiersten Qureshi Other [employer] Other Start: 09-29-2022 End: 09-29-2022 ambulatory Lauren Reggiet Other [employer] Other Start: 09-29-2022 Telephone encounter Lauren Reggiealexander Trice [facility] Start: 09-23-2022 End: 09-23-2022 Emergency department patient visit DO Kristopher Herzog Work Phone: [facility]-Emergency Room Work Phone: Start: 09-17-2022 ([facility] R A/c) [facility] Re peat A/C Kiersten Llamasber [facility] Start: 09-17-2022 End: 09-17-2022 ambulatory Kiersten Qureshi Other [employer] Other Start: 09-17-2022 Registered Recurring DO Manuela Herzog Work Phone: [facility] [facility] Work Phone: Start: 09-01-2022 End: 09-01-2022 ambulatory Lauren Reggiet Other [employer] Other Start: 09-01-2022 Telephone encounter Lauren Carnes [facility] Start: 08-20-2022 ([facility] R A/c) [facility] A[facility] Start: 08-20-2022 End: 08-20-2022 ambulatory Kiersten Qureshi Other [employer] Other Start: 07-24-2022 ([facility] R A/c) [facility] Re peat A/C Olu Rene [facility] Start: 07-24-2022 End: 07-24-2022 ambulatory Olu Rene Other [employer] Other Start: 07-16-2022 End: 07-16-2022 Emergency department patient visit DO Kristopher Herzog Work Phone: [facility]-Emergency Room Start: 06-26-2022 ([facility] R A/c) [facility] Re peat A/C Lauren Vance [facility] Start: 06-26-2022 End: 06-26-2022 ambulatory Lauren Vance Other [employer] Other Start: 06-26-2022 Registered Recurring DO Manuela Herzog Work Phone: [facility] Start: 06-23-2022 End: 06-23-2022 ambulatory DO Kristopher Herzog Work Phone: [facility] Work Phone: Start: 06-23-2022 End: 06-23-2022 Patient encounter procedure DO Kristopher Herzog Work Phone: [facility]-Ultrasound Main [place] Start: 06-09-2022 End: 06-09-2022 Patient encounter procedure DO Kristopher Herzog Work Phone: [facility]-Ultrasound Cntr for Breast Car Start: 06-05-2022 ([facility] R A/c) [facility] Re peat A/C Lauren Fitt [facility] Start: 06-05-2022 End: 06-05-2022 ambulatory Tang Mcclellan Other [employer] Other Start: 06-05-2022 Telephone encounter Tang Fletcherrebekah ck [facility] Start: 06-05-2022 Registered Recurring DO Manuela Herzog Work Phone: [facility] Start: 06-04-2022 End: 06-04-2022 Discharged Recurring DO Kristopher Herzog Work Phone: [facility]-Infusion Therapy - O/P Start: 05-29-2022 End: 05-29-2022 ambulatory DO Kristopher Herzog Work Phone: [facility] Work Phone: Start: 05-29-2022 End: 05-29-2022 Patient encounter procedure DO Kristopher Herzog Work Phone: [facility]-Lab [facility] [place] Start: 05-29-2022 Registered Recurring DO Manuela Belloman Work Phone: [facility]-Infusion Therapy - O/P Start: 05-22-2022 Registered Recurring DO Alexcaroline cierra [facility] Start: 05-22-2022 ([facility] R A/c) [facility] Re peat A/C Lauren Fitt [facility] Start: 05-22-2022 End: 05-22-2022 ambulatory Lauren Fitt Other [employer] Other Start: 05-20-2022 End: 05-20-2022 Patient encounter procedure DO Kristopher Herzog Work Phone: [facility]-Lab [facility] [place] Start: 05-06-2022 ([facility] R A/c) [facility] Re peat A/C Lauren Fitt [facility] Start: 05-06-2022 End: 05-06-2022 ambulatory Lauren Fitt Other [employer] Other Start: 04-08-2022 ([facility] R A/c) [facility] Re peat A/C Lauren Fitt [facility] Start: 04-08-2022 End: 04-08-2022 ambulatory Lauren Fitt Other [employer] Other Start: 03-13-2022 ([facility] R A/c) [facility] Re peat A/C Lauren Fitt [facility] Start: 03-13-2022 End: 03-13-2022 ambulatory Lauren Fitt Other [employer] Other Start: 02-28-2022 End: 02-28-2022 Patient encounter procedure DO Kristopher Herzog Work Phone: [facility]-Digestive Health Start: 02-27-2022 ([facility] R A/c) [facility] Re peat A/C Lauren Fitt [facility] Start: 02-27-2022 End: 02-27-2022 ambulatory Lauren Fitt Other [employer] Other Start: 02-26-2022 End: 02-26-2022 Patient encounter procedure DO Kristopher Herzog Work Phone: [facility]-Pre-Surgical Testing Start: 02-17-2022 ([facility] R A/c) [facility] Re peat A/C Lauren Fitt [facility] Start: 02-17-2022 End: 02-17-2022 ambulatory Lauren Fitt Other [employer] Other Start: 02-11-2022 End: 02-11-2022 ambulatory Antonio Thompson Other [employer] Other Start: 02-11-2022 Telephone encounter Antonio ACU[facility] Start: 01-28-2022 End: 01-28-2022 ambulatory Tang Mcclellan Other [employer] Other Start: 01-28-2022 Office outpatient vi sit 15 minutes Tang Mcclellan [facility] Start: 01-21-2022 ([facility] R A/c) [facility] Lauren Fitt [facility] Start: 01-21-2022 End: 01-21-2022 ambulatory Lauren Fitt Other [employer] Other Start: 01-09-2022 End: 01-09-2022 ambulatory Tang Mcclellan Other [employer] Other Start: 01-09-2022 Telephone encounter Tang christianson [facility] G[facility] Start: 01-06-2022 ([facility] R A/c) [facility] Re peat A/C Lauren Fitt [facility] Start: 01-06-2022 End: 01-06-2022 ambulatory Lauren Fitt Other [employer] Other Start: 12-23-2021 ([facility] R A/c) [facility] Re peat A/C Lauren Fitt [facility] Start: 12-23-2021 End: 12-23-2021 ambulatory Lauren Fitt Other [employer] Other Start: 12-11-2021 ([facility] R A/c) [facility] Re peat A/C Lauren Fitt [facility] Start: 12-11-2021 End: 12-11-2021 ambulatory Lauren Fitt Other [employer] Other Start: 11-28-2021 End: 11-28-2021 ambulatory Tang Mcclellan Other [employer] Other Start: 11-28-2021 Telephone encounter Tang christianson [facility] Start: 11-27-2021 ([facility] R A/c) [facility] Re peat A/C Lauren Fitt [facility] Start: 11-27-2021 End: 11-27-2021 ambulatory Lauren Fitt Other [employer] Other Start: 11-25-2021 End: 11-25-2021 ambulatory Lauren Fitt Other [employer] Other Start: 11-25-2021 Telephone encounter Lauren Fitt [facility] Start: 11-14-2021 End: 11-14-2021 ambulatory Lauren Fitt Other [employer] Other Start: 11-14-2021 Telephone encounter Lauren Fitt [facility] Start: 11-12-2021 ([facility] R A/c) [facility] Re peat A/C Lauren Fitt [facility] Start: 11-12-2021 End: 11-12-2021 ambulatory Lauren Fitt Other [employer] Other Start: 10-31-2021 ([facility] R A/c) [facility] Re peat A/C Lauren Fitt [facility] Start: 10-31-2021 End: 10-31-2021 ambulatory Lauren Fitt Other [employer] Other Start: 10-14-2021 ([facility] R A/c) [facility] Re peat A/C Lauren Fitt [facility] Start: 10-14-2021 End: 10-14-2021 ambulatory Lauren Fitt Other [employer] Other Start: 10-08-2021 End: 10-08-2021 ambulatory Lauren Fitt Other [employer] Other Start: 10-08-2021 Telephone encounter Lauren Fitt [facility] Start: 09-30-2021 ([facility] R A/c) [facility] Re peat A/C Lauren Fitt [facility] Start: 09-30-2021 End: 09-30-2021 ambulatory Lauren Fitt Other [employer] Other Start: 09-12-2021 ([facility] R A/c) [facility] Re peat A/C Lauren Fitt [facility] Start: 09-12-2021 End: 09-12-2021 ambulatory Lauren Fitt Other [employer] Other Start: 08-29-2021 ([facility] R A/c) [facility] Re peat A/C Lauren Fitt [facility] Start: 08-29-2021 End: 08-29-2021 ambulatory Lauren Fitt Other [employer] Other Start: 08-15-2021 ([facility] R A/c) [facility] Re peat A/C Lauren Fitt [facility] Start: 08-15-2021 End: 08-15-2021 ambulatory Lauren Fitt Other [employer] Other Start: 08-01-2021 ([facility] R A/c) [facility] Re peat A/C Lauren Fitt [facility] Start: 08-01-2021 End: 08-01-2021 ambulatory Lauren Fitt Other [employer] Other Start: 07-15-2021 ([facility] R A/c) [facility] Re peat A/C Lauren Fitt [facility] Start: 07-15-2021 End: 07-15-2021 ambulatory Lauren Fitt Other [employer] Other Start: 07-03-2021 ([facility] R A/c) [facility] Re peat A/C Lauren Fitt [facility] Start: 07-03-2021 End: 07-03-2021 ambulatory Lauren Vance Other [facility] [employer] Other Start: 07-03-2021 Telephone encounter Antonio ACUNA [facility] Start: 06-19-2021 ([facility] R A/c) [facility] Re peat A/C Lauren Fitt [facility] Start: 05-28-2021 ([facility] R A/c) [facility] Re peat A/C Lauren Fitt [facility] Start: 05-21-2021 Telephone encounter Lauren Paredesalexander Trice [facility] Start: 05-15-2021 ([facility] R A/c) [facility] Re peat A/C Lauren Fitt [facility] Start: 05-15-2021 Telephone encounter Lauren Paredest [facility] Procedures Date Procedure Procedure Detail Performing Clinician Start: 03-07-2025 Radex foot complete minimum 3 views Marlon Branham DPM Work Phone: Start: 02-16-2025 Radex foot complete minimum 3 views Marlon Branham DPM Work Phone: Start: 02-13-2025 Radiologic examinati on knee 3 views Venita Marques SCHEME TECHNICIAN Work Phone: Start: 01-11-2025 ALL CBC WITH AUTO DIFF Kristopher Herzog DO Work Phone: Start: 01-05-2025 ALL BASIC METABOLIC PANEL Kristopher Herzog DO Work Phone: Start: 12-07-2024 End: 12-07-2024 Mammography Kristopher Herzog DO Work Phone: Start: 06-17-2024 Comprehensive metabo lic panel Adam Rodriguez SCHEME TECHNICIAN Work Phone: Start: 06-17-2024 Lipid panel Adam Rodriguez SCHEME TECHNICIAN Work Phone: Start: 06-17-2024 SPECIMEN STATUS REPORT Adam Rodriguez SCHEME TECHNICIAN Work Phone: Start: 04-29-2024 Mammography Radha price DO Work Phone: Start: 02-09-2024 Urine culture DO Manuela Herzog Work Phone: Start: 02-09-2024 CT cervical spine wi thout contrast DO Kristopher Herzog Work Phone: Start: 02-09-2024 CT of head without contrast DO Kristopher Herzgo Work Phone: Start: 02-09-2024 CT of lumbar [...] Start: 07-16-2022 Pelvis X-ray DO Kristopher Herzog Videdressing Phone: Start: 07-16-2022 Plain X-ray of right femur DO Kristopher Herzog Videdressing Phone: Start: 06-23-2022 Duplex scan of lower limb veins DO Kristopher Herzog Videdressing Phone: Start: 06-09-2022 Ultrasonography of l eft breast DO Kristopher Herzog Work Phone: Start: 02-28-2022 Esophageal manometry DO Kritsopher Herzog Work Phone: Start: 07-05-2016 Colonoscopy Kimberly Ramirez blake LPN Plan of Treatment Date Care Activity Detail Author Start: 12-27-2033 Screening for malign ant neoplasm of colon [facility] Start: 07-05-2026 Screening for malign ant neoplasm of colon [facility] Start: 01-09-2026 Medicare Annual Well ness (AWV) Medicare Annual Wellness (AWV) [facility] Start: 12-21-2025 End: 12-21-2025 Patient encounter procedure [facility] Start: 12-07-2025 Screening for malign ant neoplasm of breast Mammogram [facility] Start: 06-17-2025 Urine screening for protein Diabetes: Urine Protein Screening [facility] Start: 06-07-2025 End: 06-07-2025 Patient encounter procedure [facility] Start: 06-02-2025 Glaucoma screening Diabetes: R etinopathy Screening [facility] Start: 05-10-2025 End: 05-10-2025 Patient encounter procedure [facility] Start: 04-29-2025 Screening for malign ant neoplasm of breast Mammogram [facility] Start: 04-24-2025 Influenza vaccination Influenza Vacc ine (#1) [facility] Start: 04-20-2025 End: 04-20-2025 Patient encounter procedure [facility] [place] [facility] Comment on above: Arrived Start: 04-19-2025 End: 04-19-2025 Patient encounter procedure [facility] Start: 04-11-2025 Hemoglobin A1c measurement Diabetes: Hemoglobin A1C [facility] Start: 04-05-2025 End: 04-05-2025 Patient encounter procedure [facility] [place] [facility] Comment on above: Arrived Start: 03-22-2025 End: 03-22-2025 Patient encounter procedure [facility] Comment on above: Arrived Start: 03-20-2025 End: 03-20-2025 Patient encounter procedure 03/20/2025 4:00 PM EDT Office Visit NEENA MATHEW [address] [place] [phone] FaviolaBrandy camarenaDO [address] [place] [address] NEE[facility] MATHEW Start: 03-14-2025 End: 03-14-2025 Patient encounter procedure 03/14/2025 9:00 AM EDT Office Visit [facility] [address] [place] [phone] Marlon Branham, DPM [address] [place] [address] [facility] Start: 03-09-2025 End: 03-09-2025 Patient encounter procedure [facility] Comment on above: Acute pain of left k nee (Primary Dx); Primary osteoarthritis of left knee Start: 03-07-2025 End: 03-07-2025 Patient encounter procedure [facility] Comment on above: Arrived Start: 03-04-2025 Urine screening for protein Diabetes: Urine Protein Screening [facility] Start: 02-01-2025 End: 02-01-2025 Patient encounter procedure 02/01/2025 8:30 AM EDT Procedure Visit [facility] [address] [place] [id number] Marlon Branham, DPM [address] [place] [address] [facility] Start: 01-09-2025 End: 01-09-2025 Patient encounter procedure [facility] Comment on above: Arrived Start: 12-27-2024 Hemoglobin A1c measurement Diabetes: Hemoglobin A1C [facility] Start: 12-16-2024 End: 02-15-2026 MG Breast - bilateral Diagnostic Bilateral diagnostic mammogram Imaging Routine Axillary lymphadenopathy H/O diagnostic mammography Expected: 12/16/2024, Expires: 02/15/2026 [facility] Work Phone: Comment on above: Expected: 12/16/2024 , Expires: 02/15/2026 Start: 12-16-2024 End: 12-16-2025 US UPPER EXTREMITY NON-VASC LEFT US UPPER EXTREMITY NON-VASC LEFT Imaging Routine Axillary lymphadenopathy H/O diagnostic mammography Expected: 12/16/2024, Expires: 12/16/2025 [facility] Comment on above: Expected: 12/16/2024 , Expires: 12/16/2025 Start: 12-16-2024 End: 12-16-2024 Patient encounter procedure 12/16/2024 9:00 AM EDT Office Visit [facility] [address] [place] [id number] Radha Verduzco, DO [address] [place] [address] [facility] [address] [facility] Start: 12-14-2024 End: 12-14-2024 Patient encounter procedure 12/14/2024 8:45 AM EDT Office Visit [facility] [address] [place] [phone] Kristopher Herzog, DO [address] [place] [address] Arrived [facility] Comment on above: Arrived Start: 12-06-2024 End: 06-29-2025 DBT Breast - bilateral diagnostic Bilateral diagnostic mammogram with tomosynthesis Imaging Routine Axillary lymphadenopathy Expected: 12/06/2024 (Approximate), Expires: 06/29/2025 [facility] Work Phone: Comment on above: Expected: 12/06/2024 (Approximate), Expires: 06/29/2025 Start: 12-06-2024 Screening for malign ant neoplasm of breast Mammogram [facility] Start: 12-06-2024 End: 04-29-2025 US UPPER EXTREMITY NON-VASC LEFT US UPPER EXTREMITY NON-VASC LEFT Imaging Routine Axillary lymphadenopathy Expected: 12/06/2024, Expires: 04/29/2025 [facility] Comment on above: Expected: 12/06/2024 , Expires: 04/29/2025 Start: 12-02-2024 Medicare Annual Well ness (AWV) Medicare Annual Wellness (AWV) [facility] Start: 10-31-2024 End: 10-31-2024 Patient encounter procedure 10/31/2024 8:00 AM EDT Procedure Visit [facility] [address] [place] [phone] Marlon Branham DPM [address] [place] [address] [facility] Start: 10-25-2024 End: 01-25-2025 CT Head WO contrast CT head wo IV contrast Imaging Routine Nonintractable headache, unspecified chronicity pattern, unspecified headache type Neck pain Paresthesia of left arm Numbness of fingers Expected: 10/25/2024 (Approximate), Expires: 01/25/2025 [facility] Comment on above: Expected: 10/25/2024 (Approximate), Expires: 01/25/2025 Start: 10-25-2024 End: 10-25-2025 XR Cervical spine 2 or 3 Views [facility] Work Phone: Comment on above: Expected: 10/25/2024 , Expires: 10/25/2025 Start: 10-03-2024 End: 10-03-2024 Patient encounter procedure 10/03/2024 8:45 AM EST Office Visit [facility] [address] [place] [phone] Kristopher Herzog DO [address] [place] [address] [facility] Start: 09-24-2024 End: 12-21-2024 Basic metabolic 1998 panel - Serum or Plasma Basic metabolic panel Lab Routine Primary hypertension ([facility]/HCC) Diabetic peripheral neuropathy associated with type 2 diabetes mellitus (CMS/HCC) Expected: 09/24/2024, Expires: 12/21/2024 [facility] Comment on above: Expected: 09/24/2024 , Expires: 12/21/2024 Start: 09-24-2024 End: 12-21-2024 Hemoglobin a1c with eag Hemoglobin a1c with eag Lab Routine Diabetic peripheral neuropathy associated with type 2 diabetes mellitus ([facility]/HCC) Expected: 09/24/2024, Expires: 12/21/2024 [facility] Work Phone: Comment on above: Expected: 09/24/2024 , Expires: 12/21/2024 Start: 09-23-2024 End: 09-23-2024 Patient encounter procedure 09/23/2024 8:30 AM EST Office Visit [facility] [address] [place] [phone] Kristopher Herzog, [address] [place] [address] [facility] Start: 09-17-2024 Hemoglobin A1c measurement Diabetes: Hemoglobin A1C [facility] Start: 09-08-2024 Screening for malign ant neoplasm of colon FOBT [facility] Start: 08-01-2024 End: 08-01-2024 Patient encounter procedure [facility] Comment on above: Arrived Start: 06-22-2024 End: 06-22-2024 Patient encounter procedure 06/22/2024 8:45 AM EDT Office Visit [facility] [address] [place] [phone] Kristopher Herzog, [address] [place] [address] [facility] Start: 06-09-2024 End: 06-09-2024 Patient encounter procedure 06/09/2024 9:00 AM EDT Office Visit [facility] [address] [place] [phone] Kristopher Herzog, DO [address] [place] [address] [facility] Start: 06-04-2024 Hemoglobin A1c measurement Diabetes: Hemoglobin A1C [facility] Start: 04-29-2024 End: 04-29-2024 Patient encounter procedure 04/29/2024 9:00 AM EDT Office Visit [facility] [address] [place] [phone] Radha Verduzco, DO [address] [place] [address] [facility] Start: 04-24-2024 Influenza vaccination Influenza Vacc ine (#1) [facility] Start: 01-06-2024 End: 01-06-2024 Patient encounter procedure 01/06/2024 10:45 AM EDT Office Visit [facility] [address] [place] [phone] Kristopher Herzog, DO [address] [place] [address] [facility] Start: 12-31-2023 Medicare Annual Well ness (AWV) Medicare Annual Wellness (AWV) [facility] Start: 12-28-2023 [facility] Start: 12-21-2023 End: 12-21-2023 Patient encounter procedure 12/21/2023 1:15 PM EDT Office Visit [facility] [address] [place] [phone] Radha Verduzco, DO [address] [place] [address] [facility] Start: 12-16-2023 End: 12-16-2023 Patient encounter procedure 12/16/2023 10:15 AM EDT Procedure Visit [facility] [address] [place] [address] Marlon Branham, DPM [address] [place] [address] [facility] Start: 12-04-2023 Hemoglobin A1c measurement Diabetes: Hemoglobin A1C [facility] Start: 12-02-2023 Screening for malign ant neoplasm of breast Mammogram [facility] Start: 10-13-2023 End: 10-13-2023 Patient encounter procedure 10/13/2023 2:45 PM EST Office Visit [facility] [address] [place] [address] Marlon Branham, DPM [address] [place] [address] [facility] Start: 12-15-2022 [facility] Start: 12-14-2022 Blood chemistry [facility] Start: 12-14-2022 End: 12-14-2022 [facility] Start: 12-13-2022 [facility] Start: 12-13-2022 Computed tomography of abdomen and pelvis with contrast CT abdomen pelvis w con [facility] Start: 12-13-2022 End: 12-13-2022 [facility] Start: 12-13-2022 Physical therapy procedure [facility] Start: 12-13-2022 Referral to occupati onal therapist [facility] Start: 12-13-2022 Hospital admission [facility] Start: 09-23-2022 Bacteria identified in Urine by Culture [facility] Start: 06-23-2022 Duplex scan of lower limb veins US venous duplex LE RT [facility] Start: 06-23-2022 US Lower extremity v ein - right [facility] Start: 02-28-2022 [facility] Start: 05-18-2020 Screening for malign ant neoplasm of colon FIT [facility] Start: 1950 Screening for malign ant neoplasm of colon [facility] Patient Education [facility] Work Phone: Patient referral [facility] Work Phone: [facility] Immunizations Immunization Date Immunization Notes Care Provider [facility] 06-22-2024 Seasonal trivalent influenza vaccine, adjuvanted, preservative free Adam Rodriguez SCHEME TECHNICIAN Work Phone: [facility] 06-22-2024 influenza virus vaccine, unspecified formulation Venitaleopoldo Marques SCHEME TECHNICIAN Work Phone: [facility] 10-08-2023 RSV, recombinant, protein subunit RSVpreF, adjuvant reconstitu, 120mcg/0.5mL, PF (Arexvy) Marlon Branham DPM Work Phone: [facility] 05-29-2023 Influenza, High-dose Seasonal, Quadrivalent, Preservative Free Kimberly Garfield ROLL RECLAIMER [facility] 05-29-2023 influenza virus vaccine, unspecified formulation Marlon Branham DPM Work Phone: [facility] 05-27-2023 influenza virus vaccine, unspecified formulation Kimberly Garfield ROLL RECLAIMER [facility] 05-21-2022 influenza, high dose seasonal, preservative-free Kimberly Garfield ROLL RECLAIMER [facility] 12-04-2021 Pneumococcal Conjuga te PCV 20 Kimberly Garfield ROLL RECLAIMER [facility] 05-31-2021 influenza, high dose seasonal, preservative-free Kimberly Garfield ROLL RECLAIMER [facility] 11-14-2020 COVID-19 mRNA-1273 (Moderna) DO Kristopher Herzog Work Phone: [facility] 10-17-2020 COVID-19 mRNA-1273 (Moderna) DO Kristopher Herzog Work Phone: [facility] 07-26-2020 Seasonal trivalent influenza vaccine, adjuvanted, preservative free Kimberly Garfield ROLL RECLAIMER [facility] 12-26-2019 KENALOG - 10 mg Lauren Fitt Other [employer] Other 08-22-2019 KENALOG - 10 mg Lauren Fitt Other [employer] Other 05-17-2019 Seasonal trivalent influenza vaccine, adjuvanted, preservative free Kimberly Garfield ROLL RECLAIMER [facility] 01-14-2019 pneumococcal polysaccharide vaccine, 23 valent Lauren Fitt Other [employer] Other 11-05-2018 KENALOG - 10 mg Lauren Fitt Other [employer] Other 05-14-2018 influenza virus vaccine, unspecified formulation DO Kristopher Belloman Work Phone: [facility] 05-14-2018 influenza, high dose seasonal, preservative-free Lauren Fitt Other [employer] Other 06-12-2017 influenza virus vaccine, unspecified formulation DO Kristopher Herzog Work Phone: [facility] 06-12-2017 influenza, injectabl e, quadrivalent, preservative free Kimberly Garfield ROLL RECLAIMER [facility] 06-12-2017 influenza, high dose seasonal, preservative-free Lauren Fitt Other [employer] Other 06-26-2016 influenza virus vaccine, unspecified formulation DO Kristopher [employer] Work Phone: [facility] 06-26-2016 influenza, high dose seasonal, preservative-free Lauren Fitt Other [employer] Other 07-06-2015 pneumococcal conjuga te vaccine, 13 valent Kimberly Garfield ROLL RECLAIMER [facility] 06-15-2015 seasonal influenza, intradermal, preservative free Kimberly Garfield ROLL RECLAIMER [facility] 10-27-2014 KENALOG - 10 mg Lauren Fitt Other [employer] Other 10-15-2014 KENALOG - 10 mg Lauren Fitt Other [employer] Other 05-29-2014 influenza virus vaccine, unspecified formulation DO [employer] Work Phone: [facility] 05-29-2014 influenza, high dose seasonal, preservative-free Lauren Fitt Other [facility] [employer] Other 08-24-2013 zoster vaccine, live Kimberly [employer] N [facility] 04-26-2013 influenza virus vaccine, unspecified formulation DO [employer] Phone: [facility] 04-26-2013 influenza, seasonal, injectable, preservative free Kimberly Garfield ROLL RECLAIMER [facility] 04-26-2013 influenza, high dose seasonal, preservative-free Lauren Fitt Other [employer] Other 04-26-2013 influenza, injectabl e, quadrivalent, preservative free Kiersten Qureshi Other [facility] [employer] Other 07-28-2012 seasonal influenza, intradermal, preservative free Kimberly Garfield ROLL RECLAIMER [facility] 06-30-2011 pneumococcal polysaccharide vaccine, 23 valent Kimberly Garfield ROLL RECLAIMER [facility] 05-20-2011 seasonal influenza, intradermal, preservative free Kimberly Garfield ROLL RECLAIMER [facility] Payers Date Payer Category Payer Unknown [id number] 2023 Self-pay [id number] 2021 Medicare [id number] [id number] 2021 Medicare (Managed Care) 1.2. [id number] 2021 Unknown [employer] [id number] 2021-Present [address] [place] [address] [id number]. 7.3.153111.315 2021 Unknown [id number] 2.16.840.1.597390.19 1950 Unknown [id number] 2.16.840.1.039074.3.579.2. 356 1950 Unknown [id number] 2.16.840.1.767796.3.579.2. 1259 1950 Unknown [id number] 2.16.840.1.468581.3.579.2. 1259 1951 Unknown [id number] 2.16.840.1.994806.3.579.2. 1259 1950 Unknown [id number] 2.16.840.1.559444.3.579.2. 1259 1950 Unknown [id number] 2.16.840.1.792417.3.579.2. 1259 1950 Unknown [id number] 2.16.840.1.732675.3.579.2. 1259 1951 Unknown [id number] 2.16.840.1.216505.3.579.2. 1259 1951 Unknown [id number] 2.16.840.1.155356.3.579.2. 1259 1951 Unknown [id number] 2.16.840.1.206493.3.579.2. 1259 1951 Unknown [id number] 2.16.840.1.666960.3.579.2. 1259 1951 Unknown [id number] 2.16.840.1.925502.3.579.2. 1259 1951 Unknown [id number] 2.16.840.1.036136.3.579.2. 125 1951 Unknown [id number] 2.16.840.1.891875.3.579.2. 1259 1951 Unknown [id number] 2.16.840.1.360062.3.579.2. 1258 1951 Unknown [id number] 2.16.840.1.427983.3.579.2. 125 1950 Unknown [id number] 2.16.840.1.138613.3.579.2. 1258 1951 Unknown [id number] 2.16.840.1.035362.3.579.2. 125 1950 Unknown [id number] 2.16.840.1.131908.3.579.2. 1258 1951 Unknown [id number] 2.16.840.1.238140.3.579.2. 125 1951 Unknown [id number] 2.16.840.1.993182.3.579.2. 1258 1951 Unknown [id number] 2.16.840.1.344430.3.579.2. 9 1950 Unknown [id number] 2.16.840.1.204742.3.579.2. 125 1951 Unknown [id number] 2.16.840.1.600676.3.579.2. 125 1950 Unknown [id number] 2.16.840.1.153671.3.579.2. 1258 1950 Unknown [id number] 2.16.840.1.631034.3.579.2. 1259 Medicare Medicare [id number] Medicare Anthem MCR PF [id number] Unknown HCAP/HFA/FAP Active [id number] Unknown [id number] 2.16.840.1.746461.3.579.2. 531 Unknown [id number] 2.16.840.1.460132.3.579.2. 531 Unknown [id number] 2.16.840.1.567556.3.579.2. 531 Social History Date Type Detail Facility Start: 09-08-2023 End: 01-09-2025 Sex Assigned At [facility] [employer] Other Start: 11-23-2021 End: 10-07-2024 Tobacco smoking status WYIS Ex-smoker (finding) [facility] Start: 1950 Sex Assigned At Female [facility] Start: 07-16-2022 End: 09-08-2023 Tobacco smoking status [facility] Never smoked tobacco (finding) [facility] History of tobacco use Passive smoker [facility] Start: 09-08-2023 Tobacco use and exposure Smokeless tobacco non-user [facility] Start: 09-16-2023 End: 04-20-2025 Alcohol intake Lifetime non-drinker (finding) [facility] [...] file [facility] Start: 07-04-2024 End: 02-01-2025 Sex Female (finding) [facility] Medical Equipment Procedure Code Equipment Code [...] SELF DRILL ING 3.8X14MM FDA Start: 06-18-2017 [id number] Start: 08-20-2022 1 each by Other route in the morning and 1 each at noon and 1 each in the evening and 1 each before bedtime. [id number] USE TO TEST BLOO D SUGAR 3 TIMES DAILY DIRECTED [id number] Start: 06-13-2023 USE TO TEST BLOO D SUGAR THREE TIMES A DAY DIRECTED [id number] Start: 06-13-2023 BONE 5MM DUO FDA Start: [...] D SUGAR THREE TIMES A DAY DIRECTED [id number] Start: 11-09-2023 USE TO TEST BLOO D SUGAR 3 TIMES DAILY DIRECTED [id number] Start: 11-09-2023 BONE 5MM DUO FDA Start: [...] BONE 5MM DUO FDA Start: 06-18-2017 PLATE WELSL 2 LE IKARA 32MM DEPUY FDA Start: 06-18-2017 SCREW SELF [...] D SUGAR 3 TIMES A DAY DIRECTED [id number] Start: 01-26-2025 Inject 1 each un momo the skin in the morning and 1 each before bedtime. Use as instructed. [id number] Start: 01-30-2025 BONE 5MM DUO FDA Start: [...] [facility] ionnaire 2 item (PHQ-2) [Reported] [facility] 12-15-2022 Functional status Patient at [facility] Work Phone: [facility] Mental Status Date Assessment Result Facility 12-15-2022 Cognitive function Cognitive Sta tus Patient at [facility] Work Phone: Clinical Notes 05-15-2021 to 04-20-2025 Marlon Branham, IRAM - 04/20/2025 8:15 AM Oliva Branham, IRAM - 04/05/2025 9:30 AM Oliva Branham, IRAM - 03/22/2025 11:15 AM Oliva Branham, IRAM - 03/14/2025 9:00 AM EDT Note Date & Type Note Facility 04-20-2025 History of Present illness Narrative Images from the original note were not included. HPI: Nicol Frances presents today for post-op appointment of correction right hallux deformity. Surgery was performed on 03/03/2025 at [facility]. Patient complains of pain 0. Current symptoms [...] FOOT EXAM: Date of Last Foot Exam 04/11/25 Vascular: DORSALIS PEDIS PULSE:2/4, bilaterally. POSTERIOR TIBIAL [...] to the medial right hallux is healed, no opening noted. Good position noted to the hallux with no rubbing to the 2nd digit. Ulcer along the plantar hallux and 2nd digit are resolved. HYPERKERATOSIS: Location: distal aspect of the left [...] PAIN ELICITED WITH PALPATION OF: overlying the medial and lateral arch right foot Assessment: 1. Dermatophytosis of nail - B35.1 (Primary) 2. Foot pain, left - M79.672 3. Foot pain, right - M79.671 4. Venous insufficiency - I87.2 5. Generalized edema - R60.1 6. Hammertoe, left - M20.42 7. Corns and callosities - L84 9. DM neuro manif type II - E11.49 10. Surgery follow-up examination Plan: 1. Ulcer to the right hallux was evaluated at today's visit. 2. Overlying hyperkeratosis and non-viable tissue was debrided and there is no residal opening noted to the wound following debridement. 3. Instructed patient on continued use of antibiotic cream or moisturizing cream to the area in order to continue to soften the skin and prevent re-opening. 4. Patient advised that they can return to their normal offloading shoe gear as long as no redness, pain develops. 5. RTC: 2 weeks for recheck. Advised patient that she can continue with the splinting or padding to the 1st webspace. The ulceration/wound dehiscence to the right foot is healed. She is having increase pain to the right foot but I think that this is from use of the surgical shoe and the stiffness, lack of support that the shoe provides. Once she is back into her normal shoes, this should resolve. Patient has an upcoming appointment in 2 weeks and we can recheck. documented in this encounter [facility] 04-05-2025 History of Present illness Narrative Images from the original note were not included. HPI: Nicol Frances presents today for post-op appointment of correction right hallux deformity. Surgery was performed on 03/03/2025 at [facility]. Patient complains of pain 0. Current symptoms [...] RTC: 1 week. documented in this encounter [facility] 03-22-2025 History of Present illness Narrative Images from the original note were not included. HPI: Nicol Frances presents today for post-op appointment of correction right hallux deformity. Surgery was performed on 03/03/2025 at [facility]. Patient complains of pain 0. Current symptoms [...] place. Updated orders placed for HHC with [facility]. She was also advised on use of [...] RTC: 3-4 weeks. documented in this encounter [facility] 03-14-2025 History of Present illness Narrative Images from the original note were not included. HPI: Nicol Frances presents today for post-op appointment of correction right hallux deformity. Surgery was performed on 03/03/2025 at [facility]. Patient complains of pain 0. Current symptoms [...] I will order dressing changes with her [facility] nurse. Patient was also advised on beginning passive range of motion exercises to the foot and ankle as well as calf squeezes/compression. Patient does not want a refill of her pain medication. Patient will follow-up in 7-10 days for suture removal. documented in this encounter [facility] 03-09-2025 History of Present illness Narrative Images [...] pain management, which could be scheduled in [place] as she transitions to Dr. Walden. Significant [...] requiring urgent evaluation. Visit was preformed using [employer] embalmer speech recognition. documented in this encounter [facility] 03-07-2025 History of Present illness Narrative HPI: Nicol Frances presents today for post-op appointment of correction right hallux deformity. Surgery was performed on 03/03/2025 at [facility]. Patient complains of pain 0. Current symptoms [...] for suture removal. documented in this encounter [facility] 02-22-2025 Telephone encounter Note Will you please call her and see if she has had anything done? I know I ordered an EKG for her. [facility] Work Phone: 02-22-2025 Miscellaneous Notes Will you please call her and see if she has had anything done? I know I ordered an EKG for her. Called [facility] and [facility] for results. [facility] doesn't have anything after January 2024. [facility] has lab work from December 2024, which we have, and a EKG from October 2024 that they are sending over now. No other results available. I looked on clinisync and do not see labs or an EKG has she done any for her persurgical testing? Please call [facility] and see if we can request recent labs and EKG. I believe she had done her presurgical testing labs there. She is scheduled for 03/[address] Branham. documented in this encounter [facility] 02-22-2025 Telephone encounter Note Called [facility] and [facility] for results. [facility] doesn't have anything after January 2024. [facility] has lab work from December 2024, which we have, and a EKG from October 2024 that they are sending over now. No other results available. [facility] 02-22-2025 Telephone encounter Note I looked on clinisync and do not see labs or an EKG has she done any for her persurgical testing? [facility] 02-22-2025 Telephone encounter Note Please call [facility] and see if we can request recent labs and EKG. I believe she had done her presurgical testing labs there. She is scheduled for 03/[address] Branham. [facility] 02-16-2025 History of Present illness Narrative Images from the original note were not included. HPI: Patient presents today for their pre-operative appointment. The patient is scheduled for correction right hallux deformity at [facility] with Dr. Branham on 03/03/2025 at 11:45 [...] disc without myelopathy DVT (deep venous thrombosis) ([facility]) Encounter for current long-term use of 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s Erythema nodosum Essential hypertension, benign Generalized osteoarthrosis unspecified site Hallux hammertoe, left Hallux hammertoe, right Hallux malleus of right foot Hearing loss Hepatitis B Hyperlipidemia, unspecified Obstructive sleep apnea (adult) (pediatric) Orthostatic hypotension Osteoarthritis of knee 12/22/2019 PE (pulmonary thromboembolism) ([facility]) 04/21/2023 Primary osteoarthritis of first carpometacarpal joint of right hand Spinal stenosis in cervical region Type II or unspecified type diabetes mellitus with neurological manifestations, uncontrolled(250.62) ([facility]) Ulcerative colitis ([facility]) Unspecified Ulcerative colitis ([facility]) Other ulcerative colitis Ulcerative colitis ([facility]) 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 BD Insulin Syringe U/F 30G X 1/2 0.5 ML [facility] cholecalciferol (Vitamin D-3) 25 MCG (1000 UT) tablet Take 1,000 Units by mouth in the morning. citalopram (CeleXA) 20 MG tablet TAKE 1 TABLET EVERY MORNING 90 tablet 2 clobetasol (Temovate) 0.05 % ointment APPLY TO AFFECTED AREA TWICE A DAY 30 g 3 Continuous Glucose [employer] (FreeStyle Carline 3 Palisade) device USE I DEVICE CONTINUOUSLY 1 each [...] evening and 1 each before bedtime. Lancets (IncentOneTouch Delica Plus [id number]) misc USE TO TEST BLOOD SUGAR 3 [...] Patient was dispensed their postoperative prescriptions including: Lambert. A post-operative shoe was also dispensed for [...] days after surgery. documented in this encounter [facility] 02-13-2025 History of Present illness Narrative Images [...] before. She has not previously consulted an center specialists. 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 - Referral to center specialists for further evaluation and pain management. 3. [...] Venita Marques NP documented in this encounter [facility] 02-01-2025 History of Present illness Narrative Images [...] their surgery date. documented in this encounter [facility] 01-09-2025 History of Present illness Narrative documented in this encounter [facility] 01-04-2025 Evaluation note Diagnosis Onset Date Resolution [...] embolism acute March 09, 2025 10:19am [facility] Work Phone: 1(988) 554-924405-14-2025 Evaluation note* Diagnosis Onset Date Resolution Status [...] embolism acute March 13, 2025 8:29am [facility] Work Phone: 1(504) 982-835805-14-2025 Evaluation note* Diagnosis Onset Date Resolution Status [...] embolism acute March 17, 2025 8:40am [facility] Work Phone: 1(494) 178-359504-25-2025 History of Present illness Narrative* Radha Verduzco, [...] Syringe U/F 30G X 1/2 0.5 ML [facility] cholecalciferol (VITAMIN D-3) 1,000 Units, Daily citalopram (CELEXA) 20 mg, Oral, Every morning clobetasol (Temovate) 0.05 % ointment Topical, 2 times daily clobetasol (Temovate) 0.05 % ointment Topical, 2 times daily Continuous Glucose Supervisor Waterproofing (FreeStyle Carline 3 Palisade) device USE I DEVICE CONTINUOUSLY Continuous Glucose Sensor (FreeStyle Carline 3 Sensor) [facility] 1 Device, Does not apply, Every 14 days furosemide (LASIX) 20 mg, Oral, Daily glucose blood (IncentOneTouch Verio) test strip USE TO TEST BLOOD SUGAR THREE TIMES A DAY DIRECTED insulin aspart protamine-insulin aspart (NovoLOG MIX 70/30) (70-30) 100 UNIT/ML injection Inject 16Units under the skin Daily in the Morning AND 12 Units at bedtime. Lancet Devices (Autolet) lancing device 1 each, 4 times daily Lancets (IncentOneTouch Delica Plus [id number]) [facility] [place]LOOD [...] disease Other specified forms Colitis Cough Depression (CMS/HCC) Depressive disorder (CMS/HCC) not elsewhere classified Displacement of lumbar intervertebral disc without myelopathy DVT (deep venous thrombosis) (CMS/HCC) Encounter for current long-term use of 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s Erythema nodosum Essential hypertension, benign (CMS/HCC) Generalized osteoarthrosis unspecified site Hallux hammertoe, left Hallux hammertoe, right Hallux malleus of right foot Hearing loss Hepatitis B Hyperlipidemia, unspecified ([facility]) Obstructive sleep apnea (adult) (pediatric) Orthostatic hypotension Osteoarthritis of knee 12/22/2019 PE (pulmonary thromboembolism) ([facility]) 04/21/2023 Primary osteoarthritis of first carpometacarpal joint of right hand Spinal stenosis in cervical region Type II or unspecified type diabetes mellitus with neurological manifestations, uncontrolled(250.62) ([facility]) Ulcerative colitis Unspecified Ulcerative colitis Other ulcerative colitis Ulcerative colitis Vasculitis ([facility]) 04/24/2021 Venous embolism and [...] Exam Vitals reviewed. Exam conducted with a banking and finance instructor present. HENT: Head: Normocephalic. Eyes: Pupils: Pupils [...] US for that visit. documented in this [facility]04-09-2025 Evaluation note* Diagnosis Onset Date Resolution Status [...] embolism acute February 01, 2025 9:46am [facility] Work Phone: 1(756) 472-163704-09-2025 Evaluation note* Diagnosis Onset Date Resolution Status [...] embolism acute February 22, 2025 8:35am [facility] Work Phone: 1(245) 466-706503-12-2025 Evaluation note* Diagnosis Onset Date Resolution Status [...] embolism acute January 04, 2025 8:39am [facility] Work Phone: 1(218) 141-584003-04-2025 History of Present illness Narrative* Venita Marques, SCHEME TECHNICIAN - 10/25/2024 2:00 PM EST Images from [...] Syringe U/F 30G X 1/2 0.5 ML [facility] [place] cholecalciferol (VITAMIN D-3) 1,000 Units, Daily citalopram (CELEXA) 20 mg, Oral, Every morning clobetasol (Temovate) 0.05 % ointment Topical, 2 times daily clobetasol (Temovate) 0.05 % ointment Topical, 2 times daily Continuous Glucose Supervisor Waterproofing (FreeStyle Carline 3 Palisade) device 1 Device, Does not apply, Continuous Continuous Glucose Sensor (FreeStyle Carline 3 Sensor) misc 1 Device, Does not apply, Every 14 days glucose blood (OneTouch Verio) test strip USE TO TEST BLOOD SUGAR THREE TIMES A DAY DIRECTED Lancet Devices (Autolet) lancing device 1 each, 4 times daily Lancets (OneTouch Delica Plus [id number]) [facility] [place] TO [place]LOOD [...] apnea syndrome Steatosis of liver HTN (hypertension) (CMS/[facility]) Peripheral venous insufficiency Anxiety disorder Chronic deep vein thrombosis (DVT) of femoral vein of left lower extremity ([facility]) 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 machines and devices Diabetic peripheral neuropathy associated with type 2 diabetes mellitus ([facility]/HCC) Gastroesophageal reflux disease Hypercoagulable state ([facility]/HCC) 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 She will return on Thursday to [facility] office after her podiatry appt provide [...] follow-up. Venita Marques NP documented in this encounterCox Walnut [id number] Evaluation note* Diagnosis Onset Date Resolution Status [...] pulmonary embolism acute November 30, 2024 8:37am [facility] Work Phone: 1(690) 200-480501-17-2025 Evaluation note* Diagnosis Onset Date Resolution Status [...] embolism acute November 02, 2024 8:51am [facility] Work Phone: 1(109) 774-780101-17-2025 Evaluation note* Diagnosis Onset Date Resolution Status [...] embolism acute November 30, 2024 8:37am [facility] Work Phone: 1(341) 647-715412-11-2024 Evaluation note* Diagnosis Onset Date Resolution Status [...] embolism acute October 05, 2024 8:36am [facility] Work Phone: 1([phone]) 442-884312-11-2024 Evaluation note* Diagnosis Onset Date Resolution Status [...] colitis acute October 07, 2024 9:04am [facility] Work Phone: 1([phone]) 227-435712-09-2024 History of Present illness Narrative* Marlon Branham [...] after her next appointment. documented in this encounterCox Walnut [id number] Evaluation note* Diagnosis Onset Date Resolution Status Admit Date Crohn's colitis acute June 29, 2024 10:28am Internal hemorrhoids acute Nove mb 2023 10:28am History of DVT (deep vein thrombosis) acute July 04, 8:29am History of pulmonary embolism acute July 04, 2024 8:29am History of DVT (deep vein thrombosis) acute August 03 024 8:24am History of pulmonary embolism acute August 03, 2024 8:24am History of DVT (deep vein thrombosis) acute September 09 8:43am History of pulmonary embolism acute September 09, 2024 8:43am [facility] Work Phone: 1(337) 103-494010-30-2024 History of Present illness Narrative* Adam Rodriguez [...] disc without myelopathy DVT (deep venous thrombosis) (CMS/[facility]) Encounter for current long-term use of 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s Erythema nodosum Essential hypertension, benign (CMS/HCC) Generalized osteoarthrosis unspecified site Hallux hammertoe, left Hallux hammertoe, right Hallux malleus of right foot Hearing loss Hepatitis B Hyperlipidemia, unspecified (CMS/HCC) Obstructive sleep apnea (adult) (pediatric) Orthostatic hypotension Osteoarthritis of knee PE (pulmonary thromboembolism) ([facility]/HCC) Primary osteoarthritis of first carpometacarpal joint of right hand Spinal stenosis in cervical region Type II or unspecified type diabetes mellitus with neurological manifestations, uncontrolled(250.62) ([facility]) Ulcerative colitis ([facility]/HCC) Unspecified Ulcerative colitis ([facility]/HCC) Other ulcerative colitis Ulcerative colitis ([facility]) Vasculitis ([facility]) Venous embolism and thrombosis unspecified [...] ointment Topical, 2 times daily glucose blood (IncentOneTouch Verio) test strip USE TO TEST BLOOD SUGAR THREE TIMES A DAY DIRECTED insulin aspart protamine-insulin aspart (NovoLOG Mix 70-30) (70-30) 100 UNIT/ML injection 12 Units,Subcutaneous, 2 times daily with meals Lancet Devices (Autolet) lancing device 1 each, 4 times daily Lancets (IncentOneTouch Delica Plus [id number]) [facility] [place] BLOOD [...] associated with type 2 diabetes mellitus (CMS/HCC) - Hemoglobin a1c with eag; Future - Basic metabolic panel; Future Gastroesophageal reflux disease without esophagitis -taking protonix Hypercoagulable state (CMS/HCC) -on warfarin for DVT 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 The rest the review systems is negative. She return here in three months for a BMP and also an A1c.Patient agrees with plan. Dr. Herzog was present in office suite today and is supervising patient care and available for consult. I'm following his plan of care for the above problems. Previous notes and plan were reviewed and followed. Adam Rodriguez, MSN, SAUSAGE LINKER-MARINE DIESEL MECHANIC documented in this encounterCox Walnut [id number] History of Present illness Narrative* Radha Verduzco, [...] ointment Topical, 2 times daily glucose blood (Profexuch Verio) test strip USE TO TEST BLOOD SUGAR THREE TIMES A DAY DIRECTED insulin aspart protamine-insulin aspart (NovoLOG Mix 70-30) (70-30) 100 UNIT/ML injection 12 Units,Subcutaneous, 2 times daily with meals Lancet Devices (Autolet) lancing device 1 each, Other, 4 times daily Lancets (OneTouch Delica Plus [id number]) misc USE TO TEST BLOOD SUGAR 3 [...] forms Colitis Cough Depression (CMS/HCC) Depressive disorder ([facility]/HCC) not elsewhere classified Displacement of lumbar intervertebral disc without myelopathy DVT (deep venous thrombosis) ([facility]) Encounter for current long-term use of 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s Erythema nodosum Essential hypertension, benign ([facility]/HCC) Generalized osteoarthrosis unspecified site Hallux hammertoe, left Hallux hammertoe, right Hallux malleus of right foot Hearing loss Hepatitis B Hyperlipidemia, unspecified (CMS/HCC) Obstructive sleep apnea (adult) (pediatric) Orthostatic hypotension Osteoarthritis of knee PE (pulmonary thromboembolism) ([facility]/HCC) Primary osteoarthritis of first carpometacarpal joint of right hand Spinal stenosis in cervical region Type II or unspecified type diabetes mellitus with neurological manifestations, uncontrolled(250.62) ([facility]) Ulcerative colitis ([facility]/HCC) Unspecified Ulcerative colitis ([facility]) Other ulcerative colitis Ulcerative colitis ([facility]) Vasculitis ([facility]) Venous embolism and thrombosis unspecified [...] Exam Vitals reviewed. Exam conducted with a banking and finance instructor present. HENT: Head: Normocephalic. Eyes: Pupils: Pupils [...] will resume yearly evaluations. documented in this encounterCox Walnut [id number] History of Present illness Narrative* Marlon Branham [...] over the callous site. documented in this encounterCox Walnut [id number] Evaluation note* Diagnosis Onset Date Resolution Status [...] June 29, 2024 10:28am Internal hemorrhoids acute [facility] 2023 10:28am History of DVT (deep vein thrombosis) acute July 04, 024 8:29am History of pulmonary embolism acute July 04, 2024 8:29am [facility] Work Phone: 1([phone]) 570-556205-06-2024 [facility] History and physical note Author Sandy Clark [facility] December 28, 2023 8:33am Note Date/Time December 28, 2023 8:33am [facility] [address] [place] [address] Gastroenterology H&P Signed Patient: Nicol Frances MR#: [id number] : 1950 Acct:[id number] Age/Sex: 73 / F Adm Date: 4 Loc: Room: Type: [facility] Attending Dr: Sandy Clark DO Copies to: [...] <Electronically signed by Sandy Clark DO> 12/28/23832 [facility] Work Phone: 1(715) 147-468105-06-2024 [facility] Evaluation note* Encounter Date Diagnosis Assessment [...] or Wednesdays. Seen by Genie Escobedo PharmD [employer] Other 02-05-2024 Telephone encounter Note* Telephone Encounter - Ruddy Cisneros - 09/28/2023 9:48 AM EST Patient is scheduled. [facility] [id number] Miscellaneous Notes* Telephone Encounter - Ruddy Cisneros [...] pt and schedule her an appointment to hand picker her shoes that arrived. Thankyou! documented in this encounterCox Walnut LawnNcwnxtxzoe12-93-1077 Telephone encounter Note* Telephone Encounter - Kimberly Berger LPN - 09/25/2023 10:23 AM EST Pt called and lvm that she was sorry she missed our call and for someone to give her a call back please and thank you! [facility] Telephone encounter Note* Telephone Encounter - Ruddy Cisneros - 09/25/2023 9:55 AM EST Called patient to schedule appt to obtain shoes. Unable to LVM due to voicemail not set up. [facility] [id number] Telephone encounter Note* Telephone Encounter - Kimberly Berger LPN - 09/24/2023 4:43 PM EST Can someone please call pt and schedule her an appointment to hand picker her shoes that arrived. Thankyou! [facility] Center[facility]iemvubzqq60-88-4994 Evaluation note* Encounter Date Diagnosis Assessment Notes [...] Mondays, Tuesdays, or Wednesdays. Seen by Samantha Echavarria PharmD Candidate/Tita Roberts PharmD [employer] Other 12-19-2023 Evaluation note* Encounter Date Diagnosis [...] or Wednesdays. Seen by Tita Roberts PharmD [employer] Other 11-21-2023 Evaluation note* Encounter Date Diagnosis [...] Rose Marie Quispe PharmD Candidate/Tita Roberts PharmD [employer] Other 10-23-2023 Evaluation note* Encounter Date Diagnosis Assessment Notes Treatment Notes Treatment Clinical Notes May, Medication monitoring encounter (ICD-10 - Z51.81) Referring Provider: Darius Herzog Diagnosis: DVT/PE (2001) INR Goal: 2-3 INR: 2.8 Warfarin Tablet Size: 3mg Thursday: 3mg Thursday: 3mg Thursday: 1.5mg Thursday: 3mg : 3mg Thursday: 3mg Thursday: 1.5mg Total Weekly Dose: 18mg Continue plan above. Follow-up in 3 weeks per patient preference to cordinate appointments with Gayle Urban, who brings patient to appointments. Seen by Tita Roberts PharmD [employer] Other 09-07-2023 Evaluation note* Encounter Date Diagnosis [...] patient preference. Seen by Rachel Alonso PharmD [employer] Other 08-16-2023 Evaluation note* Encounter Date Diagnosis [...] dosing instructions as above. Seen by Anny Qureshi,[facility] [employer] Other 07-31-2023 Evaluation note* Encounter Date Diagnosis Assessment Notes Treatment Notes Treatment Clinical Notes Feb, Medication monitoring encounter (ICD-10 - Z51.81) Referring Provider: Darius Herzog Diagnosis: DVT/PE (1997, 2001) INR Goal: 2-3 INR: 2.3 Warfarin Tablet Size: 3mg Regino: 3mg Thursday: 3mg Thursday: 1.5mg Thursday: 3mg : 3mg Thursday: 3mg Thursday: 1.5mg Total Weekly Dose: 18mg Continue plan above. Follow-up in 3 weeks. Patient denies missed doses, changes in medications or diet. Seen by Anny Qureshi,[facility] [employer] Other 07-19-2023 Evaluation note* Encounter Date Diagnosis [...] in medications or diet. Seen by Anny Qureshi,[facility] [employer] Other 07-03-2023 Evaluation note* Encounter Date Diagnosis [...] in medications or diet. Seen by Anny Qureshi,[facility] [employer] Other 04-19-2023 Evaluation note* Encounter Date Diagnosis [...] in 4 weeks. Seen by Anny Qureshi, [facility] [employer] Other 03-22-2023 Evaluation note* Encounter Date Diagnosis [...] in 4 weeks. Seen by Anny Qureshi, [facility] [employer] Other 02-22-2023 Evaluation note* Encounter Date Diagnosis Assessment Notes Treatment Notes Treatment Clinical Notes Sep, Medication monitoring encounter (ICD-10 - Z51.81) Referring Provider: Darius Herzog Diagnosis: DVT/PE (2001) INR Goal: 2-3 INR: 2.7 Warfarin Tablet Size: 3mg Thursday: 3mg Thursday: 3mg Thursday: 1.5mg Thursday: 3mg : 3mg Thursday: 3mg Thursday: 3mg Total Weekly Dose: 19.5mg Continue current plan. Follow-up in 4 weeks. Seen by Anny Qureshi, [facility] [employer] Other 01-25-2023 Evaluation note* Encounter Date Diagnosis [...] in 4 weeks. Seen by Anny Qureshi, [facility] [employer] Other 12-28-2022 Evaluation note* Encounter Date Diagnosis [...] made if necessary. Seen by Anny Qureshi, [facility] [employer] Other 12-01-2022 Evaluation note* Encounter Date Diagnosis [...] high INR. Seen by Olu Rene PharmD [facility] [employer] Other 11-03-2022 Evaluation note* Encounter Date Diagnosis [...] can advise her. Seen by Lauren Vance RPh [facility] [employer] Other 10-13-2022 Evaluation note* Encounter Date Diagnosis [...] Lovenox, will discontinue Lovenox at this time. [facility]. Seen by Olu Rene PharmD [employer] Other 09-29-2022 Evaluation note* Encounter Date Diagnosis Assessment Notes Treatment Notes Treatment Clinical Notes Apr, Medication monitoring encounter (ICD-10 - Z51.81) Referring Provider: Darius Herzog Diagnosis: DVT/PE (2001) INR Goal: 2-3 INR: 2.1 Warfarin Tablet Size: 3mg Thursday: 3mg Thursday: 3mg Thursday: 1.5mg Thursday: 3mg : 3mg Thursday: 3mg Thursday: 3mg Total Weekly Dose: 19.5mg Continue current plan. Follow-up in 2 weeks post-procedure. Patient provided with instructions at appointment today, see documents and telephone encounter for more details. Seen by Olu Rene PharmD [employer] Other 09-13-2022 Evaluation note* Encounter Date Diagnosis Assessment Notes Treatment Notes Treatment Clinical Notes Apr, Medication monitoring encounter (ICD-10 - Z51.81) Referring Provider: Darius Herzog Diagnosis: DVT/PE (1997, 2001) INR Goal: 2-3 INR: 1.5 Warfarin Tablet Size: 3mg Regino: 3mg Howard: [...] as above. Seen by Tk Mora PharmD [employer] Other 08-16-2022 Evaluation note* Encounter Date Diagnosis [...] her Grandson. Seen by Jennifer Amezcua LPN [employer] Other 07-21-2022 Evaluation note* Encounter Date Diagnosis [...] 's appointment. Seen by Tameka Churchill RN [employer] Other 07-07-2022 Evaluation note* Encounter Date Diagnosis [...] 's appointment. Seen by Olu Rene PharmD [employer] Other 06-27-2022 Evaluation note* Encounter Date Diagnosis [...] 's appointment. 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 Seen by Tameka Churchill RN [employer] Other 05-16-2022 Evaluation note* Encounter Date Diagnosis [...] 's appointment. Seen by Marita Luo LPN [facility] [employer] Other 05-02-2022 Evaluation note* Encounter Date Diagnosis [...] 's appointment. Seen by Tameka Churchill RN [employer] Other 04-20-2022 Evaluation note* Encounter Date Diagnosis [...] will resume. Seen by Tameka Churchill RN [employer] Other 04-07-2022 Evaluation note* Encounter Date Diagnosis Assessment Notes Treatment Notes Treatment Clinical Notes Nov, Diarrhea (ICD-10 - R19.7) Nov, Rectal bleeding (ICD-10 - K62.5) Nov, Colitis (ICD-10 - K52.9) [employer] Other 04-06-2022 Evaluation note* Encounter Date Diagnosis [...] showing improvement. Seen by Tameka Churchill RN [employer] Other 03-22-2022 Evaluation note* Encounter Date Diagnosis [...] 2 weeks. Seen by Tameka Churchill RN [employer] Other 03-10-2022 Evaluation note* Encounter Date Diagnosis [...] 2 weeks. Seen by Tameka Churchill RN [employer] Other 02-21-2022 Evaluation note* Encounter Date Diagnosis [...] 2 weeks. Seen by Tameka Churchill RN [employer] Other 02-07-2022 Evaluation note* Encounter Date Diagnosis [...] 2 weeks. Seen by Tameka Churchill RN [employer] Other 01-20-2022 Evaluation note* Encounter Date Diagnosis [...] 2 weeks. Seen by Tameka Churchill RN [employer] Other 01-06-2022 Evaluation note* Encounter Date Diagnosis Assessment Notes Treatment Notes Treatment Clinical Notes Aug, Medication monitoring encounter (ICD-10 - Z51.81) Referring Provider: Darius Herzog Diagnosis: DVT/PE (1997, 2001) INR Goal: 2-3 INR: 2.1 Tablet Size: 3mg Thursday: 1.5mg Howard: 3mg Thursday: 1.5mg Thursday: 3mg : 1.5mg Thursday: 3mg Thursday: 1.5mg Total Weekly Dose: 15mg Continue above plan. Follow up in 2 weeks. Seen by Tameka Churchill RN [employer] Other 12-09-2021 Evaluation note* Encounter Date Diagnosis [...] 2 weeks. Seen by Tameka Churchill RN [employer] Other 11-22-2021 Evaluation note* Encounter Date Diagnosis [...] 2 weeks. Seen by Tameka Churchill RN [employer] Other 11-10-2021 Evaluation note* Encounter Date Diagnosis [...] 2 weeks. Seen by Tameka Churchill RN [employer] Other 10-27-2021 Evaluation note* Encounter Date Diagnosis [...] 's appt. Seen by Tameka Churchill RN [employer] Other 10-05-2021 Evaluation note* Encounter Date Diagnosis [...] 's appt. Seen by Tameka Churchill RN [employer] Other 09-22-2021 Evaluation note* Encounter Date Diagnosis [...] with . Seen by Olu Rene PharmD [employer] Other Chilx complaint+Reason for visit Narrative* Chief Complaint DVT INR Follow Up blood in stool/change in stool/ref Kevin Rodriguez R59.0 Procedure Instructions + Lovenox Instructions Reason for Visit History of DVT (deep vein thrombosis) History of pulmonary embolism Rectal bleed Ulcerative colitis History of DVT (deep vein thrombosis) History of pulmonary embolism [facility] Work Phone: Chiqz complaint+Reason for visit Narrative* Chief Complaint DVT INR Follow Up blood in stool/change in stool/ref Kevin Rodriguez R59.0 Procedure Instructions + Lovenox Instructions ulcerative colitis/blood in stool ulcerative colitis/blood in stool Reason for Visit History of DVT (deep vein thrombosis) History of pulmonary embolism Rectal bleed Ulcerative colitis History of DVT (deep vein thrombosis) History of pulmonary embolism [facility] Work Phone: Chixy complaint+Reason for visit Narrative* Chief Complaint INR [...] vein thrombosis) History of pulmonary embolism [facility] Work Phone: Chibl complaint+Reason for visit Narrative* Chief Complaint blood [...] vein thrombosis) History of pulmonary embolism [facility] Work Phone: Chidw complaint+Reason for visit Narrative* Chief Complaint ulcerative [...] vein thrombosis) History of pulmonary embolism [facility] Work Phone: evaluation noteNo InformationN[facility]Ind[facility] [employer] Other evaluation noteN[facility]Ind[facility] [employer] Other evaluation noteNo assessment information available [facility] Work Phone: evaluation note* Diagnosis Onset Date Resolution Status HTN (hypertension) acute Shakiness acute Weakness acute [facility] Work Phone: evaluation note* Diagnosis Onset Date Resolution Status History of DVT (deep vein thrombosis) acute History of pulmonary embolism acute [facility] Work Phone: evaluation note* Diagnosis Onset Date Resolution Status History of DVT (deep vein thrombosis) acute History of pulmonary embolism acute Blood in stool acute Ulcerative colitis acute [facility] Work Phone: evaluation note* Diagnosis Onset Date Resolution Status History of DVT (deep vein thrombosis) acute History of pulmonary embolism acute Rectal bleed acute Ulcerative colitis acute [facility] Work Phone: evaluation note* Diagnosis Onset Date Resolution Status History of DVT (deep vein thrombosis) acute History of pulmonary embolism acute Rectal bleed acute Ulcerative colitis acute History of DVT (deep vein thrombosis) acute History of pulmonary embolism acute [facility] Work Phone: evaluation note* Diagnosis Onset [...] acute History of pulmonary embolism acute [facility] Work Phone: evaluation note* Diagnosis Onset [...] acute History of pulmonary embolism acute [facility] Work Phone: Evaluation note* Diagnosis Onset Date Resolution Status History of DVT (deep vein thrombosis) acute History of pulmonary embolism acute History of DVT (deep vein thrombosis) acute History of pulmonary embolism acute History of DVT (deep vein thrombosis) acute History of pulmonary embolism acute History of DVT (deep vein thrombosis) acute History of pulmonary embolism acute [facility] Work Phone: Evaluation note* Diagnosis Primary hypertension ([facility])- Primary Unspecified essential hypertension Mixed hyperlipidemia ([facility]) Mixed hyperlipidemia Obstructive sleep apnea syndrome Obstructive sleep apnea (adult) (pediatric) Peripheral venous insufficiency Unspecified venous (peripheral) insufficiency Chronic deep vein thrombosis (DVT) of femoral vein of left lower extremity ([facility]) 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 machines and devices Diabetic peripheral neuropathy associated with type 2 diabetes mellitus ([facility]) Gastroesophageal reflux disease without esophagitis Esophageal reflux Hypercoagulable state ([facility]) Primary hypercoagulable state 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 ([facility]) OAB (overactive bladder) Class 1 obesity Spinal stenosis of lumbosacral region Ulcerative colitis without complications, unspecified location ([facility]) Need for immunization against influenza Need for prophylactic vaccination and inoculation against influenza Atrophic vaginitis Postmenopausal atrophic vaginitis Bilateral leg edema Edema documented in this encounter [facility] HealthcareEvaluation note* Diagnosis Onset Date Resolution Status History of DVT (deep vein thrombosis) acute History of pulmonary embolism acute History of DVT (deep vein thrombosis) acute History of pulmonary embolism acute History of DVT (deep vein thrombosis) acute History of pulmonary embolism acute [facility] Work Phone: Evaluation note* Diagnosis Type II diabetes mellitus with neurological manifestations ([facility])- Primary Type II or unspecified type diabetes mellitus with neurological manifestations, not stated as uncontrolled Onychomycosis Dermatophytosis of nail Corns and callosities Hallux malleus, left Pain in both feet documented in this encounter [facility] HealthcareEvaluation note* Diagnosis Type II diabetes mellitus with neurological manifestations ([facility])- Primary Type II or unspecified type diabetes mellitus with neurological manifestations, not stated as uncontrolled Onychomycosis Dermatophytosis of nail Corns and callosities Pain in both feet documented in this encounter [facility] HealthcareEvaluation note* Diagnosis Axillary lymphadenopathy- Primary Enlargement of lymph nodes documented in this encounter [facility]* Diagnosis Primary osteoarthritis of right knee- Primary Hypercoagulable state (CMS/HCC) Primary hypercoagulable state Diabetic peripheral neuropathy associated with type 2 diabetes mellitus (CMS/HCC) Primary hypertension (CMS/HCC) Unspecified essential hypertension Ulcerative colitis without complications, unspecified location (CMS/HCC) 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) 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 of 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 Sacral ulcer, limited to breakdown of skin (CMS/HCC) documented in this encounter [facility]* [...] with type 2 diabetes mellitus (CMS/HCC)- Primary 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 of insulin (CMS/HCC) Mixed hyperlipidemia (CMS/HCC) Mixed hyperlipidemia Hypercoagulable state (CMS/HCC) Primary hypercoagulable state 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 of 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 Steatosis of [...] associated with type 2 diabetes mellitus (CMS/HCC) 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 of insulin (CMS/HCC) Mixed hyperlipidemia (CMS/HCC) Mixed hyperlipidemia Steatosis of liver Other chronic nonalcoholic liver disease Primary hypertension (CMS/HCC) Unspecified essential hypertension Chronic deep vein thrombosis (DVT) of femoral vein of left lower extremity (CMS/HCC) Spinal stenosis of lumbosacral region 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 documented in this encounter [facility]* Diagnosis Onychomycosis- Primary Dermatophytosis of nail Corns and callosities Hallux malleus, right Type II diabetes mellitus with neurological manifestations (CMS/HCC) Type II or unspecified type diabetes mellitus with neurological manifestations, not stated as uncontrolled Pain in both feet documented in this encounter [facility] HealthcareEvaluation note* Diagnosis Hallux malleus, right- Primary Right foot pain Pain in soft tissues of limb documented in this encounter [facility] HealthcareEvaluation note* Diagnosis Acute pain of left knee- Primary Primary osteoarthritis of left knee Hallux malleus of right foot Callus Corns and callosities Preoperative clearance Unspecified pre-operative examination documented in this encounter [facility] HealthcareEvaluation note* Diagnosis Surgery follow-up examination- Primary Follow-up examination, following unspecified surgery Hallux malleus, right Right foot pain Pain in soft tissues of limb Ulcer of great toe, right, limited to breakdown of skin (HCC) documented in this encounter [facility] HealthcareEvaluation note* Diagnosis Acute pain of left knee- Primary Primary osteoarthritis of left knee documented in this encounter [facility] HealthcareEvaluation note* Diagnosis Surgery follow-up examination- Primary Follow-up examination, following unspecified surgery Hallux malleus, right Right foot pain Pain in soft tissues of limb documented in this encounter [facility] HealthcareEvaluation note* Diagnosis Surgery follow-up examination- Primary Follow-up examination, following unspecified surgery Hallux malleus, right Right foot pain Pain in soft tissues of limb Ulcer of great toe, right, limited to breakdown of skin (HCC) documented in this encounter [facility] HealthcareEvaluation note* Diagnosis Surgery follow-up examination- Primary Follow-up examination, following unspecified surgery Hallux malleus, right Ulcer of great toe, right, limited to breakdown of skin (HCC) Right foot pain Pain in soft tissues of limb documented in this encounter [facility] HealthcareEvaluation note* Diagnosis Posterior tibial tendonitis, right- Primary Surgery follow-up examination Follow-up examination, following unspecified surgery Hallux malleus, right Ulcer of great toe, right, limited to breakdown of skin (HCC) documented in this encounter [facility] HealthcareHistory general Narrative - Reported* Type Description [...] surgical Hx Hospitalization History acute gastroenteritis 04/30-05/01/18 [place] [employer] Other History general Narrative - Reported* Type [...] Dr. Maynard. 1 Hospitalization History see above [employer] Other Histazg [facility] - [facility] [employer] Other Hospital Discharge instructions Additional Instructions Continue your pain pills at home Return symptoms are worse [facility] Hospital Discharge instructions Additional Instructions Continue current meds [facility] are [facility] Work Phone: Reason for referral (narrative)No reason for [facility] Work [facility]: Chief Complaint and [...] 8:24am History of DVT (deep vein thrombosis) [facility] 2024 8:43am History of pulmonary embolism September 092024 8:43am Chief Complaint Admit Date INR Follow Up August 03, 2024 8:24am INR f/u October 05, 2024 8:36am Reason for Visit Admit Date History of DVT (deep vein thrombosis) De 2023 8:24am History of pulmonary embolism July 242023 8:24am History of DVT (deep vein thrombosis) [facility] 2024 8:43am History of pulmonary embolism September 092024 8:43am History of DVT (deep vein thrombosis) [facility] 2024 8:36am History of pulmonary embolism September 242024 8:36am Chief Complaint Admit Date INR Follow Up August 03, 2024 8:24am INR f/u October 05, 2024 8:36am 3 month Follow up/colitis October 07, 2024 9:04am Reason for Visit Admit Date History of DVT (deep vein thrombosis) [facility] 2023 8:24am History of pulmonary embolism July 242023 8:24am History of DVT (deep vein thrombosis) [facility] 2024 8:43am History of pulmonary embolism September 092024 8:43am History of DVT (deep vein thrombosis) [facility] 2024 8:36am History of pulmonary embolism September 242024 8:36am Crohn's colitis October 07, 2024 9:04am Chief Complaint Admit Date INR f/u October 05, 2024 8:36am 3 month Follow up/colitis October 07, 2024 9:04am INR f/u November 02, 2024 8:5 1am Reason for Visit Admit Date History of DVT (deep vein thrombosis) [facility] 2024 8:43am History of pulmonary embolism September 092024 8:43am History of DVT (deep vein thrombosis) [facility] 2024 8:36am History of pulmonary embolism September 242024 8:36am Crohn's colitis October 07, 2024 9:04am History of DVT (deep vein thrombosis) [facility] 2024 8:51am History of pulmonary embolism October 8:51am Chief Complaint Admit Date INR f/u October 05, 2024 8:36am 3 month Follow up/colitis October 07, 2024 9:04am INR f/u November 02, 2024 8:5 1am INR f/u November 30, 2024 8:37 am Reason for Visit Admit Date History of DVT (deep vein thrombosis) [facility] 2024 8:43am History of pulmonary embolism September 092024 8:43am History of DVT (deep vein thrombosis) [facility] 2024 8:36am History of pulmonary embolism September 242024 8:36am Crohn's colitis October 07, 2024 9:04am History of DVT (deep vein thrombosis) [facility] 2024 8:51am History of pulmonary embolism October [...] 9:04am History of DVT (deep vein thrombosis) [facility] 2024 8:51am History of pulmonary embolism October 8:51am History of DVT (deep vein thrombosis) [facility] 2024 8:37am History of pulmonary embolism November 30, 2024 8:37am Chief Complaint Admit Date INR f/u November 02, 2024 8:5 1am INR f/u November 30, 2024 8:37 am R92.8 December 07, 2024 8:3 4am Reason for Visit Admit Date History of DVT (deep vein thrombosis) [facility] 2024 8:51am History of pulmonary embolism October [...] up for her ER visit at the [facility] on 12/06. She was seen for [...] w/exam Reason Comments Medicare Annual Wellness Visit Subsequmauricio t Patient presents today for an annual medicare wellness and 3 month follow up. BMP is in chart for review. Reason Comments Procedure Reason Comments Pain Specialty Diagnoses / Procedures Referred By Tylor munoz Referred To Contact Orthopaedic Surgery Diagnoses Acute pain of left knee Primary osteoarthritis of left knee Venita Marques, FLORESITA [address] [place] [address] Phone: tel: fax: Caro Hugo PA Phone: tel: fax: Referral ID Status Reason Start Date Expiration Date V isits Requested Visits Authorized [id number] Closed Specialty Services Required 02/13/2025 08/12/2025 1 1 Care Teams (unrecognized sec tion and content) Team Status: Active Member Role Status Dates Kristopher Herzog DO Primary Care Provider Active Team Status: Inactive Member Role Status Dates Kristopher Herzog DO Primary Care Provide r, Referring Provider Active Start: November 30, 2024 End: November 30, 2024 Kiersten Qureshi [facility] Attending Provider Active Start: November 30, 2024 [...] January 04, 2025 End: January 04, 2025 Kiesrten Qureshi [facility] Attending Provider Active Start: January 04, 2025 End: January 04, 2025 Team Status: Inactive Member Role Status Dates Kristopher Herzog DO Primary Care Provide r, Referring Provider Active Start: February 01, 2025 End: February 01, 2025 Kiersten Qureshi [facility] Attending Provider Active Start: February 01, 2025 [...] Dates Kristopher Herzog DO Primary Care Provider, Flora rahman Active Team Status: Inactive Member Role [...] 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 Primary Care Provider Active Topstitcher Zigzag Relationship Specialty Start Date End Date Kristopher Herzog DO [address] [place] [address] PCP - Devoted 12/22/21 Kristopher Herzog DO [address] [place] [address] PCP - General Internal Medicine 12/30/22 Team [...] June 06, 2024 End: June 06, 2024 Topstitcher Zigzag Relationship Specialty Start Date End Date Kristopher Herzog DO [address] [place] [address] PCP - Devoted 12/22/21 Kristopher Herzog DO [address] [place] [address] PCP - General Internal Medicine 12/30/22 Topstitcher Zigzag Relationship Specialty Start Date End Date Kristopher Herzog DO [address] [place] [address] PCP - Devoted 12/22/21 Kristopher Herzog DO [address] [place] [address] PCP - General Internal Medicine 12/30/22 Team [...] July 04, 2024 End: July 04, 2024 Topstitcher Zigzag Relationship Specialty Start Date End Date Kristopher Herzog DO [address] [place] [address] PCP - Devoted 12/22/21 08/23/24 Kristopher Herzog DO [address] [place] [address] PCP - General Internal Medicine 12/30/22 Topstitcher Zigzag Relationship Specialty Start Date End Date Kristopher Herzog DO [address] [place] [address] PCP - Devoted 12/22/21 08/23/24 Kristopher Herzog DO [address] [place] [address] PCP - General Internal Medicine 12/30/22 Topstitcher Zigzag Relationship Specialty Start Date End Date Kristopher Herzog DO [address] [place] [address] PCP - Devoted 12/22/21 Kristopher Herzog DO [address] [place] [address] PCP - General Internal Medicine 12/30/22 Topstitcher Zigzag Relationship Specialty Start Date End Date Kristopher Herzog DO [address] [place] [address] PCP - Devoted 12/22/21 Kristopher Herzog DO [address] [place] [address] PCP - General Internal Medicine 12/30/22 Team [...] September 09, 2024 End: September 09, 2024 Topstitcher Zigzag Relationship Specialty Start Date End Date Kristopher Herzog DO [address] [place] [address] PCP - General Internal Medicine 12/30/22 Team [...] October 07, 2024 End: October 07, 2024 Topstitcher Zigzag Relationship Specialty Start Date End Date Kristopher Herzog DO [address] [place] [address] PCP - General Internal Medicine 12/30/22 Topstitcher Zigzag Relationship Specialty Start Date End Date Kristopher Herzog DO [address] [place] [address] PCP - General Internal Medicine 12/30/22 Topstitcher Zigzag Relationship Specialty Start Date End Date Kristopher Herzog DO [address] [place] [address] PCP - General Internal Medicine 12/30/22 Topstitcher Zigzag Relationship Specialty Start Date End Date Kristopher Herzog DO [address] [place] [address] PCP - General Internal Medicine 12/30/22 Topstitcher Zigzag Relationship Specialty Start Date End Date Kristopher Herzog DO [address] [place] [address] PCP - General Internal Medicine 12/30/22 Topstitcher Zigzag Relationship Specialty Start Date End Date Kristopher Herzog DO [address] [place] [address] PCP - General Internal Medicine 12/30/22 Topstitcher Zigzag Relationship Specialty Start Date End Date Kristopher Herzog DO [address] [place] [address] PCP - General Internal Medicine 12/30/22 Topstitcher Zigzag Relationship Specialty Start Date End Date Kristopher Herzog DO [address] [place] [address] PCP - General Internal Medicine 12/30/22 Topstitcher Zigzag Relationship Specialty Start Date End Date Kristopher Herzog DO [address] [place] [address] PCP - General Internal Medicine 12/30/22 Team [...] February 22, 2025 End: February 22, 2025 Topstitcher Zigzag Relationship Specialty Start Date End Date Kristopher Herzog DO [address] [address] PCP - General Internal Medicine 12/30/22 Topstitcher Zigzag Relationship Specialty Start Date End Date Kristopher Herzog DO [address] [place] [address] PCP - General Internal Medicine 12/30/22 Topstitcher Zigzag Relationship Specialty Start Date End Date Kristopher Herzog [address] [place] [address] PCP - General Internal Medicine 12/30/22 Topstitcher Zigzag Relationship Specialty Start Date End Date ChuyKristopher DO Rebekah [address] [place] [address] PCP - General Internal Medicine 12/30/22 Team [...] March 13, 2025 End: March 13, 2025 Topstitcher Zigzag Relationship Specialty Start Date End Date Kristopher Herzog DO [address] [place] [address] PCP - General Internal Medicine 12/30/22 Team Status: Inactive Member Role Status Dates Kristopher Herzog DO Primary Care Provider Active Start: March 17, 2025 End: March 17, 2025 Kristopher Herzog DO Referring Provider Active St art: March 17, 2025 End: March 17, 2025 Kiersten Qureshi RPH Attending Provider Active Start: March 17, 2025 End: March 17, 2025 Topstitcher Zigzag Relationship Specialty Start Date End Date Karlos Morgan MD [address] [facility] [place] [address] PCP - General Family Medicine 03/17/25 Topstitcher Zigzag Relationship Specialty Start Date End Date Karlos Morgan MD [address] [facility] [place] [address] PCP - General Family Medicine 03/17/25 Topstitcher Zigzag Relationship Specialty Start Date End Date Karlos Morgan MD [address] [facility] [place] [address] PCP - General Family Medicine 03/17/25 Topstitcher Zigzag Relationship Specialty Start Date End Date Karlos Morgan MD [address] [facility] [place] [address] PCP - General Family Medicine 03/17/25 Topstitcher Zigzag Relationship Specialty Start Date End Date Karlos Morgan MD [address] [facility] [place] [address] PCP - General Family Medicine 03/17/25 Goals (unrecognized section and content) Goals may be documented in a n alternate section INFORMATION SOURCE (unrecogn ized section and content) DATE CREATED AUTHOR 12/18/2022 [facility] DATE CREATED AUTHOR AUTHOR'S ORGANIZ ATION 12/09/2024 [facility] DATE CREATED AUTHOR AUTHOR'S ORGANIZ ATION 04/22/2025 [facility] EPIC FOR RECORDS PERTAINING TO PATIENTS WHO ARE [...] BE BASED ON THE PRIMARY CLINICAL RECORDS. [facility] [employer] [facility]. provides no warranty or guarantee of the accuracy or completeness of information in this document.
== END 2025-05-16 11:34 | disposition home or self-care (01) ==
LOC: RAD 11:35
PROVIDERS: Family Provider Family Medicine; PCP Family Medicine; Visit Provider Family Medicine
DX: M48.04 Spinal stenosis, thoracic region (principal); M41.84 Other forms of scoliosis, thoracic region
CPT/HCPCS: 71046; 72072

== ENCOUNTER 2025-06-07 15:07 | Observation (INO) | payer MEDICARE, SELFPAY ==
[2025-06-07 15:13] VITALS: BP 150/68; PULSE 82; TEMP 36.9; O2SAT 100; BMI 33.6
--- OUTSIDE RECORDS SUMMARY | 2025-06-07 15:27 | XMS_ITS | Encounter Summary ---
Author Organization [facility] Address [address] [place] [address] Care Team Providers Care Procurement Director Name Role Phone Kristopher Vera DO Unavailable [phone] Kristopher Vera DO Primary Care Provider [phone] Kristopher Vera DO Unavailable [phone] Maurice Melo MD Primary Care Provider [phone] Karlos Morgan MD Primary Care Provider [phone] Encounter Details Date Type Department Care Team (Late st Contact Info) Description 06/03/2023 External Result Encounter [facility] External Department Unsolicited Ahsan Way, DO [address] [facility] [address] [place] [address] Social History Tobacco Use Types Packs/Day Years [...] Care Team (Late st Contact Info) Description 06/14/2025 9:30 AM EDT Office Visit [facility] [address] [place] [address] Jr. Rhett Navarro, DO [address] [place] [address] 07/26/2025 8:00 AM EST Procedure Visit [facility] [address] [place] [phone] Kristine Branham, DPM [address] [place] [address] 12/21/2025 9:00 AM EDT Office Visit [facility] [address] [place] [phone] Ahsan Way, DO [address] [place] [address] documented as of this encounter Procedures Procedure [...] Marcus Galvan M.D.06/03/2023 10:03 AM Dictation Location: [facility] Tech: Venita Tirado Transcribed By: [facility] 06/03/231002 Dictated By: Marcus Galvan II, MD 06/03/23956 Signed By: <Electronically signed by Marcus Galvan II, MD in OV> 06/03/231002 Narrative 07/14/2023 11:18 AM EST [facility] Main [address] [address] Ultrasound Report Signed Patient: Nicol Frances MR#: [id number] [birth year] : 1950 Acct:[id number] Age/Sex: 73 / F ADM Date: 06/03/23 Loc: [facility]: [facility]: Ahsan Way DO Ordering Provider: Ahsna Way DO Date of Service: 06/03/23 US/US [...] US/US extremity nonvascular Procedure Note Radiology, Radiologist, - 07/14/2023 [facility] Main [place] [address] [place] [address] Ultrasound Report Signed Patient: Nicol Frances JMR#: [id number] : 1950cct:[id number] Age/Sex: 73 / FADM Date: 06/03/23 Loc: [facility]: Ahsan Way DO Ordering Provider: [...] Marcus Galvan M.D.06/03/2023 10:03 AM Dictation Location: [facility] Tech: Venita Tirado Transcribed By: [facility] 06/03/23 1003 Dictated By: Marcus Galvan II, MD 06/03/23 0957 Signed By: <Electronically signed by Marcus Galvan II, MD inOV> 06/03/[address] DO IMG US PROCEDURES Final R esult documented in this encounter Visit Diagnoses Not on filedocumented in this encounter Care Teams Procurement Director Relationship Specialty Start Date End Date Kristopher Vera DO [address] [place] [address] PCP - [employer] 12/22/21 08/23/24 Kristopher Vera DO [address] [place] [address] PCP - General Internal Medicine 12/30/22 03/13/25 Kristopher Vera DO [address] [place] [address] PCP - [employer] 11/22/21 02/22/24 Maurice Melo MD [address] [facility] [address] [place] [address] PCP - General Internal Medicine 03/14/25 03/16/25 Karlos Morgan MD [address] [facility] [place] [phone] PCP - General Family Medicine 03/17/25 documented as of this encounter
--- OUTSIDE RECORDS SUMMARY | 2025-06-07 15:27 | XMS_ITS | Encounter Summary ---
Author Organization [facility] Address [address] [place] [address] Care Team Providers Care Collar Baster Name Role Phone Kristopher Vera DO Unavailable [phone] Kristopher Vera DO Primary Care Provider [phone] Kristopher Vera DO Unavailable [phone] Maurice Melo MD Primary Care Provider [phone] Karlos Morgan MD Primary Care Provider [phone] Encounter Details Date Type Department Care Team (Late st Contact Info) Description 06/02/2023 Orders Only [facility] [address] [place] [phone] A, Unknown Practice [address] [place], [place] [phone] Social History Tobacco Use Types Packs/Day Years [...] Description 06/14/2025 9:30 AM EDT Office Visit [facility] [address] [place] [phone] Jr. Rhett Navarro, DO [address] [facility] [address] [place] [address] 07/26/2025 8:00 AM EST Procedure Visit [facility] [address] [place] [phone] Kristine Branham DPM [address] [place] [address] 12/21/2025 9:00 AM EDT Office Visit [facility] [address] [place] [address], DO [address] [facility] [address] [place] [address] documented as of this encounter Procedures Procedure Name Priority Date/Time Associated Diagnosis Comments DIABETES EYE EXAM Routine 06/02/2023 3:54 PM EDT documented in this encounter Results * Diabetes Eye Exam (06/02/2023 3:54 PM EDT) us Unknown Practice [facility] Final Resu lt documented in this encounter Visit Diagnoses Not on filedocumented in this encounter Care Teams Collar Baster Relationship Specialty Start Date End Date Kristopher Vera DO [address] [place] [address] PCP - [employer] 12/22/21 08/23/24 Kristopher Vera DO [address] [place] [address] PCP - General Internal Medicine 12/30/22 03/13/25 Kristopher Vera DO [address] [place] [address] PCP - [employer] 11/22/21 02/22/24 Maurice Melo MD [address] [address] PCP - General Internal Medicine 03/14/25 03/16/25 Karlos Morgan MD [address] [place] [address] PCP - General Family Medicine 03/17/25 documented as of this encounter
--- OUTSIDE RECORDS SUMMARY | 2025-06-07 15:27 | XMS_ITS | Encounter Summary ---
Author Organization [facility] Address [address] [place] [address] Care Team Providers Care License Examiner Name Role Phone Kristopher Vera DO Primary Care Provider [phone] Maurice Melo MD Primary Care Provider [phone] Karlos Morgan MD Primary Care Provider [phone] Reason for Referral * Home Health (Routine) - Closed Specialty Diagnoses / Procedures Referred By Tylor munoz Referred To Contact Home Health Services Diagnoses Facet arthritis of lumbosacral region Arthritis of neck Paresthesia of left arm At moderate risk for fall Venita Marques NP [address] [facility] [address] [place] [address] Phone: tel: fax: [facility] Referral ID Status Reason Start Date Expiration Date V isits Requested Visits Authorized [id number] Closed Specialty Services Required 11/04/2024 01/03/[phone] Encounter Details Date Type Department Care Team (Late st Contact Info) Description 11/04/2024 Orders Only [facility] [address] [place] [phone] Lynda Gee LSW [address] [facility] [address] [place] [address] Facet arthritis of lumbosacral region (Primary Dx); [...] Office Visit [facility] [address] [facility] [address] [place] [phone] Jr. Rhett Navarro, DO [address] [facility] [address] [place] [address] 07/26/2025 8:00 AM EST Procedure Visit [facility] [address] [place] [phone] Kristine Branham DPM [address] [place] [address] 12/21/2025 9:00 AM EDT Office Visit [facility] [address] [facility] [address] [place] [phone], DO [address] [place] [address] Scheduled Referrals Name Type Priority Associated Diagnoses [...] fall documented in this encounter Care Teams License Examiner Relationship Specialty Start Date End Date Kristopher Vera DO [address] [facility] [address] [place] [address] PCP - General Internal Medicine 12/30/22 03/13/25 Maurice Melo MD [address] [facility] [address] [place] [address] PCP - General Internal Medicine 03/14/25 03/16/25 Karlos Morgan MD [address] [place] [address] PCP - General Family Medicine 03/17/25 documented as of this encounter
--- OUTSIDE RECORDS SUMMARY | 2025-06-07 15:27 | XMS_ITS | Patient Health Record ---
Author Organization [facility] in [place] Address [address] [place] [address] Care Team Providers Care [employer]ed [employer] Pinner Name Role Phone Arnol Mercer Primary Care Provider Allergies No Known Allergies Results Component Value Reference Range Notes UA DIP NONAUTO WO MICRO (810 02) - IN OFFICE Reviewed date:04/11/2025 08:37:45 PM Interpretation: Performing Lab: Notes/Report: COLOR yellow CLARITY clear GLUCOSE NEG BILIRUBIN NEG KETONE NEG SPECIFIC GRAVITY 1.005 BLOOD NEG PH 7.5 PROTEIN POS` UROBILINOGEN NEG NITRITE NEG LEUKOCYTE ESTERASE TRACE NM humberto perf SPECT rest str Reviewed date:04/11/2025 08:37:45 PM Interpretation: Performing Lab: Notes/Report: Source Facility: [place] [address] Nuclear Medicine Report Signed Patient: NICOL FRANCES MR#: [id number] : 1950 Acct:[id number] Age/Sex: 74 / F ADM Date: 04/11/25 Loc: NM Attending Dr: Ana Mercer M.D. Ordering Physician: Ana Mercer M.D. Date of Service: 04/11/25 Procedure(s): NM humberto perf SPECT rest str Accession Number(s): [id number] cc: Ana Mercer M.D. Patient Name: NICOL FRANCES MR#: [id number] : 1950 Exam Date: 04/11/2025 Ordering Doctor: DR ANA MERCER . RADIOLOGY REPORT PROCEDURE: NM HUMBERTO PERF SPECT REST STR COMPARISON: None. INDICATIONS: CHEST PAIN TECHNIQUE: Exam Description: Stress/Rest one day protocol gated SPECT Rest Imagin.3 mCi Tc-99m Cardiolite IV on 04/11/2025 Stress Imaging 30.3 mCi Tc-99m Cardiolite IV on 04/11/2025 Exercise Protocol: 0.4 mg Lexiscan given IV Heart Rate (bpm): Rest: 60 Max: 83 PMHR: 56 Blood Pressure: Rest: 148/54 Max: 148/54 Symptoms: Rest and peak stress ECG findings were pending, and the exercise portion of the study was pending per attending physician [facility]. For more details, please see separate cardiac stress test report. FINDINGS: QUALITY OF STUDY: Good PERFUSION DEFECT: LOCATION: Apical SIZE: Small SEVERITY: Mild TYPE: Fixed and likely representing physiological apical thinning WALL MOTION: Normal wall motion LV SIZE: 80 mL. TID / TCD: 0.9 LVEF: Calculated EF 72%. SUMMARY: Myocardial perfusion imaging study is normal CONCLUSION: 1. Myocardial perfusion is normal with soft tissue attenuation 2. Global left ventricular systolic function is hyperdynamic; EF 72% 3. No significant transient ischemic dilatation Dictated by: Mateo French M.D. on 04/11/2025 at 14:23 Approved by: Mateo French M.D. on 04/11/2025 at 14:25 Dictated By: Mateo Frecnh M.D. Signed By: 04/11/25 1426 DD/ 1425 TD/TT: Evidence Specialist: Troponin I High Sensitivity Reviewed date:04/02/2025 08:06:18 PM Interpretation: Performing Lab: Notes/Report: [facility] , Troponin I High Sensitivity 7.2 4.0-51.3 pg/m L CUT-OFF POINTS HAVE BEEN ESTABLISHED BASED ON THE FOURTH UNIVERSAL DEFINITION OF MYOCARDIAL INFARCTION. THE UPPER REFERENCE LIMIT (URL) OF TROPONIN, DEFINED THE 99TH PERCENTILE OF cTnI DISTRIBUTION IN A REFERENCE POPULATION, HAS BEEN CONFIRMED THE DECISION THRESHOLD FOR MS DIAGNOSIS. 99TH PERCENTILE = 51.4 PG/ML NOTE: HIGH-SENSITIVITY TROPONIN ASSAY IS NOT INTENDED TO BE USED IN ISOLATION BUT SHOULD BE INTERPRETED IN CONJUNCTION WITH OTHER DIAGNOSTIC AND CLINICAL INFORMATION. Performing Lab: see note ML - [facility] LB ECG 12 lead Reviewed date:04/02/2025 08:06:18 PM Interpretation: Performing Lab: Notes/Report: Source Facility: [facility] [place] [address] [place] [address] Electrocardiograph Report Signed Patient: NICOL FRANCES MR#: [id number] : 1950 Acct:[id number] Age/Sex: 74 / F ADM Date: 03/31/25 Loc: ER Attending Dr: Ordering Physician: Librado Parra Date of Service: 03/31/25 Procedure(s): ECG 12 lead Accession Number(s): [id number] cc: [facility] Test Date: 2025-03-31 Pat Name: NICOL FRANCES Department: Room: - 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 Measurements Intervals Bunch Rate: 66 P: -11 GA: 178 QRS: 5 QRSD: 78 T: 9 QT: 422 QTc: 436 Interpretive Statements 1100 Sinus rhythm 8102 Low QRS voltage in chest leads 9120 atypical ECG Compared to ECG 03/24/2025 21:30:07 Low QRS voltage now present Electronically Signed On 04-01-2025 7:39:34 EDT by SANDEEP MOHAN M.D. Dictated By: SANDEEP MOHAN Signed By: 04/01/25 0739 DD/ 1552 TD/TT: Evidence Specialist: Troponin I High Sensitivity Reviewed date:04/02/2025 08:06:18 PM Interpretation: Performing Lab: Notes/Report: [facility] , Troponin I High Sensitivity 6.7 4.0-51.3 pg/m L CUT-OFF POINTS HAVE BEEN ESTABLISHED BASED ON THE FOURTH UNIVERSAL DEFINITION OF MYOCARDIAL INFARCTION. THE UPPER REFERENCE LIMIT (URL) OF TROPONIN, DEFINED THE 99TH PERCENTILE OF cTnI DISTRIBUTION IN A REFERENCE POPULATION, HAS BEEN CONFIRMED THE DECISION THRESHOLD FOR MS DIAGNOSIS. 99TH PERCENTILE = 51.4 PG/ML NOTE: HIGH-SENSITIVITY TROPONIN ASSAY IS NOT INTENDED TO BE USED IN ISOLATION BUT SHOULD BE INTERPRETED IN CONJUNCTION WITH OTHER DIAGNOSTIC AND CLINICAL INFORMATION. Performing Lab: see note ML - [facility] LB UA (CLEAN or CATCH) MICROSCO PIC IF INDICATE Reviewed date:04/02/2025 08:06:18 PM Interpretation: Performing Lab: Notes/Report: [facility] , Color Urine LT. YELLOW YELLOW Clarity Urine CLEAR CLEAR Specific [place] Urine <=1.005 1.005-1.025 pH Urine 6.0 5.0-9.0 Protein Urine NEGATIVE NEG/TRACE mg/dL Glucose Urine UA NEGATIVE NEGATIVE mg/dL Bilirubin Urine NEGATIVE NEGATIVE Ketones Urine NEGATIVE NEGATIVE mg/dL Blood Urine NEGATIVE NEGATIVE Nitrite Urine NEGATIVE NEGATIVE Urobilinogen Urine 0.2 0.2-1.0 EU/dL Leukocyte Esterase Urine NEGATIVE NEGATIVE Urine Microscopic Indicated NO Performing Lab: see note ML - [facility] LB PROF 14(COMP METB) Reviewed date:04/02/2025 08:06:18 PM Interpretation: Performing Lab: Notes/Report: [facility] , Sodium 141 136-145 mmol/L Potassium 3.5 3.5-5.1 mmol/L Chloride 106 98-107 mmol/L Carbon Dioxide 25.4 21.0-32.0 mmol/L Anion Gap 13.1 Glucose 116 74-106 mg/dL Blood Urea Nitrogen 21.0 7.0-18.0 mg/dL Creatinine 0.94 0.55-1.02 mg/dL Estimated GFR ( Janette >60 >=60 mL/min/1.73m 2 Estimated GFR (Non- Coby 58 >=60 mL/min/1.73m 2 BUN Creatinine Ratio 22.3 Calcium 9.1 8.5-10.1 mg/dL Bilirubin Total 0.2 0.2-1.0 mg/dL Aspartate Amino Transferase 19 15-37 U/L Alanine Aminotransferase 24 14-59 U/L Alkaline Phosphatase 52 46-116 U/L Total Protein 6.8 6.4-8.2 g/dL Albumin Level 3.3 3.4-5.0 g/dL Globulin 3.5 Albumin Globulin Ratio 0.9 Performing Lab: see note ML - [facility] LB MAGNESIUM Reviewed date:04/02/2025 08:06:18 PM Interpretation: Performing Lab: Notes/Report: [facility] , Magnesium 2.0 1.8-2.4 mg/dL Performing Lab: see note ML - [facility] LB LIPASE Reviewed date:04/02/2025 08:06:18 PM Interpretation: Performing Lab: Notes/Report: [facility] , Lipase 11.0 16.0-77.0 U/L Performing Lab: see note ML - [facility] LB XR thoracic spine 3V Reviewed date:05/16/2025 03:24:55 PM Interpretation: Performing Lab: Notes/Report: Source Facility: [facility] [place] [address] [place] [address] XRay Report Signed Patient: NICOL FRANCES MR#: [id number] : 1950 Acct:[id number] Age/Sex: 74 / F ADM Date: 05/16/25 Loc: RAD Attending Dr: Ana Mercer M.D. Ordering Physician: Ana Mercer M.D. Date of Service: 05/16/25 Procedure(s): XR thoracic spine 3V Accession Number(s): [id number] cc: Ana Mercer M.D. [place] [address] Patient Name: NICOL FRANCES MRN: [id number] date: 1950 Sex: F Assigned Patient Location: [facility] Current Patient Location: [facility] Accession/Order Number: [id number] Exam Date: 05/16/2025 11:50 Report Date: 05/16/2025 12:15 At the request of: ANA MERCER MD Procedure: XR thoracic spine 3V CLINICAL HISTORY: Mid back pain for the past 5 days. No injury. PA AND LATERAL CHEST: COMPARISON: CT 03/31/2025 There is no focal parenchymal consolidation, effusion or pneumothorax. The cardiac, hilar and mediastinal silhouettes are within normal limits. There is no vascular congestion. The visualized bony thorax is intact. There is levoscoliotic curvature and degenerative changes at the spine. XR/XR thoracic spine 3V IMPRESSION: NO ACUTE CARDIOPULMONARY ABNORMALITY. THORACIC SPINE - 2 views COMPARISON: CT 03/31/2025 AP and lateral views were obtained. There is dextroscoliotic curvature. The pedicles are intact. There is no displacement on the lateral views. The disc spaces are maintained. There is multilevel endplate spurring. No paraspinal soft tissue abnormalities are present. IMPRESSION: SCOLIOSIS AND DEGENERATIVE CHANGES Impression dictated by: Denise Wallace M.D. 05/16/2025 12:15 PM Dictation Location: [place] [address] Electronically authenticated by: [id number] Y Date: 05/16/2025 12:15 Dictated By: Denise Wallace M.D. Signed By: 05/16/25 1217 DD/ 1215 TD/TT: Evidence Specialist: XR chest 2V Reviewed date:05/16/2025 03:24:55 PM Interpretation: Performing Lab: Notes/Report: Source Facility: [place] [address] XRay Report Signed Patient: NICOL FRNACES MR#: [id number] : 1950 Acct:[id number] Age/Sex: 74 / F ADM Date: 05/16/25 Loc: RAD Attending Dr: Ana Mercer M.D. Ordering Physician: Aan Mercer M.D. Date of Service: 05/16/25 Procedure(s): XR chest 2V Accession Number(s): [id number] cc: Ana Mercer M.D. [place] [address] Patient Name: NICOL FRANCES MRN: [id number] date: 1950 Sex: F Assigned Patient Location: [facility] Current Patient Location: [facility] Accession/Order Number: [id number] Exam Date: 05/16/2025 11:50 Report Date: 05/16/2025 12:15 At the request of: ANA MERCER MD Procedure: XR thoracic spine 3V CLINICAL HISTORY: Mid back pain for the past 5 days. No injury. PA AND LATERAL CHEST: COMPARISON: CT 03/31/2025 There is no focal parenchymal consolidation, effusion or pneumothorax. The cardiac, hilar and mediastinal silhouettes are within normal limits. There is no vascular congestion. The visualized bony thorax is intact. There is levoscoliotic curvature and degenerative changes at the spine. XR/XR chest 2V IMPRESSION: NO ACUTE CARDIOPULMONARY ABNORMALITY. THORACIC SPINE - 2 views COMPARISON: CT 03/31/2025 AP and lateral views were obtained. There is dextroscoliotic curvature. The pedicles are intact. There is no displacement on the lateral views. The disc spaces are maintained. There is multilevel endplate spurring. No paraspinal soft tissue abnormalities are present. IMPRESSION: SCOLIOSIS AND DEGENERATIVE CHANGES Impression dictated by: Denise Wallace M.D. 05/16/2025 12:15 PM Dictation Location: [place] [address] Electronically authenticated by: [id number] Date: 05/16/2025 12:15 Dictated By: Denise Wallace M.D. Signed By: 05/16/25 1217 DD/ TD/TT: Evidence Specialist: CT angio abdomen pelvis Reviewed date:04/02/2025 08:06:18 PM Interpretation: Performing Lab: Notes/Report: Source Facility: [place] [address] CT Scan Report Signed Patient: NICOL FRANCES MR#: [id number] : 1950 Acct:[id number] Age/Sex: 74 / F ADM Date: 03/31/25 Loc: ER Attending Dr: Ordering Physician: Librado Parra Date of Service: 03/31/25 Procedure(s): CT angio abdomen pelvis Accession Number(s): [id number] cc: Ana Mercer M.D. [place] [address] Patient Name: NICOL FRANCES MRN: [id number] date: 1950 Sex: F Assigned Patient Location: ED.MAIN Current Patient Location: ED[facility]MAIN Accession/Order Number: [id number] Exam Date: 03/31/2025 17:41 Report Date: 03/31/2025 17:49 At the request of: LIBRADO H PARRA II PA Procedure: CT angio abdomen pelvis CTA chest and CTA abdomen and pelvis . CLINICAL DATA: back/chest and abdominal pain. TECHNIQUE: Intravenous contrast-enhanced CT angiography of the chest and CT angiography of the abdomen and pelvis were performed. Axial, sagittal, coronal, and 3D-dimensional reconstructions were created and reviewed. These CT exams were performed using one or more of the following dose reduction techniques: Automated exposure control, adjustment of the mA and/or kV according to patient size, or use of iterative reconstruction technique. COMPARISON: None. FINDINGS: Chest: Mediastinum:Cardiomegaly with coronary artery disease. No aortic aneurysm or aortic dissection. Moderate-sized retrocardiac hiatal hernia with air level. No suspicious mediastinal or hilar adenopathy. Lungs:Lungs are clear. No effusion or pneumothorax. Soft tissues/Bones: Degenerative changes Disc ossified complexes identified mid to lower thoracic spine. Abdomen and pelvis: Organs:Cholecystectomy. Diminished attenuation liver may suggest fatty infiltration. Otherwise liver, spleen, adrenals, kidneys, and pancreas are unremarkable. Right renal cyst.[ GI: No bowel obstruction. Jlux-fi-runhluei retained stool.[Appendix not visualized. Pelvis:[Bladder unremarkable. Uterus unremarkable. No adnexal mass.] Peritoneum/Retroperitoneum:No free air or free fluid. No evidence Aneurysm or dissection. Acak-jx-jxolcuer plaque identified involving the aorta and mesenteric vessels. No hemodynamically significant stenosis identified.[ Abd wall/Bones:Multilevel degenerative changes of the lumbar spine. Anterolisthesis L4 on L5 noted, measuring 9 mm likely caused by facet arthropathy. Bilateral foraminal narrowing at this level as a result.[ CT/CT angio abdomen pelvis IMPRESSION: Negative for aortic dissection or aneurysm. No hemodynamically significant stenosis identified involving the mesenteric vessels. Moderate size hiatal hernia. Impression dictated by: Ricardo Johnston M.D. 03/31/2025 5:49 PM Dictation Location: [place] [address] Electronically authenticated by: [id number] Y Date: 03/31/2025 17:49 Dictated By: Ricardo Johnston M.D. Signed By: 03/31/25 1755 DD/ 1749 TD/TT: Evidence Specialist: CT angio chest Reviewed date:04/02/2025 08:06:18 PM Interpretation: Performing Lab: Notes/Report: Source Facility: [place] [address] [place] [address] CT Scan Report Signed Patient: NICOL FRANCES MR#: [id number] : 1950 Acct:[id number] Age/Sex: 74 / F ADM Date: 03/31/25 Loc: ER Attending Dr: Ordering Physician: Librado Parra Date of Service: 03/31/25 Procedure(s): CT angio chest Accession Number(s): [id number] cc: Ana Mercer M.D. [place] [address] Patient Name: NICOL FRANCES MRN: [id number] date: 1950 Sex: F Assigned Patient Location: ED.MAIN Current Patient Location: ED.MAIN Accession/Order Number: [id number] Exam Date: 03/31/2025 17:41 Report Date: 03/31/2025 17:49 At the request of: LIBRADO HEWITT Procedure: CT angio abdomen pelvis CTA chest and CTA abdomen and pelvis . CLINICAL DATA: back/chest and abdominal pain. TECHNIQUE: Intravenous contrast-enhanced CT angiography of the chest and CT angiography of the abdomen and pelvis were performed. Axial, sagittal, coronal, and 3D-dimensional reconstructions were created and reviewed. These CT exams were performed using one or more of the following dose reduction techniques: Automated exposure control, adjustment of the mA and/or kV according to patient size, or use of iterative reconstruction technique. COMPARISON: None. FINDINGS: Chest: Mediastinum:Cardiomegaly with coronary artery disease. No aortic aneurysm or aortic dissection. Moderate-sized retrocardiac hiatal hernia with air level. No suspicious mediastinal or hilar adenopathy. Lungs:Lungs are clear. No effusion or pneumothorax. Soft tissues/Bones: Degenerative changes Disc ossified complexes identified mid to lower thoracic spine. Abdomen and pelvis: Organs:Cholecystectomy. Diminished attenuation liver may suggest fatty infiltration. Otherwise liver, spleen, adrenals, kidneys, and pancreas are unremarkable. Right renal cyst.[ GI: No bowel obstruction. Uayw-mz-lbeqtbog retained stool.[Appendix not visualized. Pelvis:[Bladder unremarkable. Uterus unremarkable. No adnexal mass.] Peritoneum/Retroperitoneum:No free air or free fluid. No evidence Aneurysm or dissection. Jybo-hh-fmswvwuq plaque identified involving the aorta and mesenteric vessels. No hemodynamically significant stenosis identified.[ Abd wall/Bones:Multilevel degenerative changes of the lumbar spine. Anterolisthesis L4 on L5 noted, measuring 9 mm likely caused by facet arthropathy. Bilateral foraminal narrowing at this level as a result.[ CT/CT angio chest IMPRESSION: Negative for aortic dissection or aneurysm. No hemodynamically significant stenosis identified involving the mesenteric vessels. Moderate size hiatal hernia. Impression dictated by: Ricardo Johnston M.D. 03/31/2025 5:49 PM Dictation Location: [place] [address] Electronically authenticated by: [id number] Y Date: 03/31/2025 17:49 Dictated By: Ricardo Johnston M.D. Signed By: 03/31/25 1751 DD/ 174 TD/TT: Evidence Specialist: Reason For Referral No Information Medications Medication SIG (Take, Route, Frequency, Duration) Notes Start Date End Date Status ReliOn Pen Blaine 32G X 4 MM USE 1 TWICE DAILY IN THE MORNING AND BEFORE BEDTIME DIRECTED; Duration: 50 Days Active Pen Blaine 33G X 4 MM Use 1 pen needle twice daily to give insulin; Duration: 30 days Dx: E11.9 04/10/2025 Active Pantoprazole Sodium 40 MG 1 tablet Oral bid; Duration: 90 days Active NovoLOG Mix 70/30 (70-30) 100 UNIT/ML 18 Units Subcutaneous bid DX E11.9; Duration: 38 days Active FreeStyle Carline 3 Sensor - ; Duration: 84 Days Active Cyclobenzaprine HCl 5 MG 1 tablet Orally bid; Duration: 10 days 05/16/2025 Active Eliquis 5 MG 1 table Orally bid 03/16/2025 Active Citalopram Hydrobromide 20 MG TAKE 1 TABLET EVERY MORNING Oral; Duration: 90 Days Active Rosuvastatin Calcium 20 MG TAKE 1 TABLET BY MOUTH AT BEDTIME Oral; Duration: 90 Days Active MiraLax 17 GM/SCOOP 17 gram mixed with 8 ounces of fluid Orally Once a day; Duration: 30 days 04/06/2025 Active predniSONE 20 MG 2 tablets Orally Onc e a day; Duration: 5 days 05/16/2025 Active Losartan Potassium 50 MG Oral; Duration: 90 Days Active Furosemide 20 MG TAKE 1 TABLET BY EDWARD TH EVERY DAY Oral; Duration: 90 Days Active Social History Tobacco Use: Social History Observation Description Date Details (start date - stop date) Former Smoker NA - NA Tobacco Control (Standard) Question Answer Notes Tobacco use: Former smoker AUDIT-C (Standard) Question Answer Notes Did you have a drink containing alcohol in the p ast year? No Points 0 Interpretation Negative Problems Problem Type SNOMED Code ICD Code Onset Dates Problem Status W/U Status Risk Notes Problem Chest pain (54738178) Chest pain (R07.9) Active confirmed Problem Hypertension (69010007) Hypertension (I10) Active confirmed Problem Gastroesophageal reflux disease (117373361) GERD (gastroesophageal reflux disease) (K21.9) Active confirmed Problem Arthritis (2347412) Arthritis (M19.90) Active c onfirmed Problem Thoracic spinal stenosis (35424962) Thoracic spinal stenosis (M48.04) Active confirmed Problem Constipated (31750829) Constipat ed (K59.00) Active confirmed Problem Thromboembolism of vein (disorder) (448863957) Venous thromboembolism (I82.90) Active confirmed Problem hypercholesterolemia (disorder) (87281365) Hypercholesteremia (E78.00) Active confirmed Problem Type II diabetes mellitus without complication (806685490) Diabetes (E11.9) Active confirmed Problem Diabetes mellitus (57572504) Diabetes mellitus (E11.9) Active confirmed Vital Signs Blood pressure diastolic 78 mm Hg 05/16/2025 Height 61.5 in 05/16/2025 Blood pressure systolic 144 mm Hg 05/16/2025 Weight 178.4 lbs 05/16/2025 BMI 33.16 kg/m2 05/16/2025 Encounters Encounter Location Date Provider Diagnosis [facility] [address] [place] [address] 03/16/2025 Arnol Hoy Diabetes mellitus E1 1.9 ; Hypercholesteremia E78.00 ; Venous thromboembolism I82.90 ; Hypertension I10 ; GERD (gastroesophageal reflux disease) K21.9 ; Urinary urgency R39.15 and Acute UTI N39.0 [facility] [address] [place] [address] 03/30/2025 Arnol Hoy Chest pain R07.9 ; Hypertension I10 ; GERD (gastroesophageal reflux disease) K21.9 and Diabetes mellitus E11.9 [facility] [address] [place] [place] [address] 04/06/2025 Arnol Hoy Hypertension I10 ; G ERD (gastroesophageal reflux disease) K21.9 ; Chest pain R07.9 and Constipated K59.[address] [facility] [address] [place] [place] [address] 05/16/2025 Arnol Hoy Thoracic spinal sten osis M48.04 [facility] [address] [place] [address] 03/16/2025 Arnol [facility] [address] [place] [address] 03/16/2025 Arnol [facility] [address] [place] [address] 03/16/2025 Arnol y [facility] [address] [place] [address] 03/16/2025 Arnol [facility] [address] [place] [address] 03/16/2025 Arnol [facility] [address] [place] [address] 03/16/2025 Arnol Eddie [facility] [address] [place] [address] 03/27/2025 Arnol Hoy [facility] [address] [place] [place] [address] 03/30/2025 Arnol Hoy Chest pain R07.[address] [facility] [address] [place] [address] 03/30/2025 Arnol y [facility] [address] [place] [address] 04/02/2025 Arnol cierra [facility] [address] [place] [place] [address] 04/06/2025 Arnol [facility] [address] [place] [address] 04/10/2025 Arnol Mercer Diabetes mellitus E1 1.[address] [facility] [address] [place] [address] 04/10/2025 Arnol Mercer [facility] [address] [place] [address] 04/11/2025 Arnol Mercer [facility] [address] [place] [address] 05/08/2025 Arnol Mercer Constipated K59.[address] [facility] [address] [place] [address] 05/16/2025 Arnol Mercer Assessments Encounter Date Diagnosis (ICD Code) Assessment Notes Treatment Notes Treatment Clinical Notes Section Notes 03/16/2025 Diabetes mellitus (ICD-10 - E11.9) 03/16/2025 Hypercholesteremia (ICD-10 - E78.00) 03/30/2025 Chest pain (ICD-10 - R07.9) 03/30/2025 Hypertension (ICD-10 - I10) 04/06/2025 Hypertension (ICD-10 - I10) 04/06/2025 GERD (gastroesophage al reflux disease) (ICD-10 - K21.9) 05/16/2025 Thoracic spinal stenosis (ICD-10 - M48.04) 03/30/2025 Chest pain (ICD-10 - R07.9) 04/10/2025 Diabetes mellitus (ICD-10 - E11.9) 05/08/2025 Constipated (ICD-10 - K59.00) 04/06/2025 Chest pain (ICD-10 - R07.9) 03/30/2025 GERD (gastroesophage al reflux disease) (ICD-10 - K21.9) 03/16/2025 Venous thromboemboli sm (ICD-10 - I82.90) 03/16/2025 Hypertension (ICD-10 - I10) 03/30/2025 Diabetes mellitus (ICD-10 - E11.9) 04/06/2025 Constipated (ICD-10 - K59.00) 03/16/2025 GERD (gastroesophage al reflux disease) (ICD-10 - K21.9) 03/16/2025 Urinary urgency (ICD-10 - R39.15) 03/16/2025 Acute UTI (ICD-10 - N39.0) 05/16/2025 Other Recommended to rest and use a heating pad on the area. Take NSAIDs for pain as needed Plan Of Treatment Pending Test Test Name Order Date Lexiscan Stress Nuclear Test 03/30/2025 XR CHEST 2 V 05/16/2025 Insurance Providers Payer Name Payer Address Payer Phone Subscriber Number Group Number Insured Name Patient Relationship to Insured Coverage Start Date Coverage End Date [employer] [address] [place] [address] [id number] [employer] Self - patient is the insured Medications Administered Medication Instructions Date of Administration Dosage Notes Ketorolac Tromethamine 05/16/2025 30 mg Medical (General) History Medical History History ICD Code Arthritis M19.90 Diabetes E11.9 Deep vein thrombosis I82.409 GERD (gastroesophageal reflux disease) K 21.9 Hypertension I10 Surgical History Surgery Date(Month/Year) Gallbladder Right Great Toe Appendix
--- OUTSIDE RECORDS SUMMARY | 2025-06-07 15:27 | XMS_ITS | Encounter Summary ---
Author Organization [facility] Address [address] [place] [address] Care Team Providers Care Florist'S Decorator Name Role Phone Kristopher Vera DO Primary Care Provider + [phone] Maurice Melo MD Primary Care Provider [phone] Karlos Morgan MD Primary Care Provider [phone] Encounter Details Date Type Department Care Team (Late st Contact Info) Description 12/16/2024 Orders Only [facility] 703 [facility] 150 [place] [address] [address] DO 703 [facility] 150 [place] [address] Social History Tobacco Use Types [...] Orthopaedics [address] [place] [address] Jr. Rhett Navarro, DO 112 [facility] 150 [place] [address] 07/26/2025 8:00 AM EST Procedure Visit [facility] [address] [place] [address] Kristine Branham DPM [address] [place] [address] 12/21/2025 9:00 AM EDT Office Visit [facility] 703 [facility] 150 [place] [address], DO 703 [facility] 150 [place] [address] documented as of this encounter Procedures Procedure [...] on filedocumented in this encounter Care Teams Florist'S Decorator Relationship Specialty Start Date End Date Kristopher Vera DO [address] [place] [address] PCP - General Internal Medicine 12/30/22 03/13/25 Maurice Melo MD [address] [place] [address] PCP - General Internal Medicine 03/14/25 03/16/25 Karlos Morgan MD 1265 [facility] [place] [address] PCP - General Family Medicine 03/17/25 documented as of this encounter
--- OUTSIDE RECORDS SUMMARY | 2025-06-07 15:27 | XMS_ITS | Encounter Summary ---
Author Organization [facility] Address [address] [place] [address] Care Team Providers Care Market Reporter Name Role Phone Kristopher Vera DO Unavailable [phone] Kristopher Vera DO Primary Care Provider [phone] Maurice Melo MD Primary Care Provider [phone] Karlos Morgan MD Primary Care Provider [phone] Encounter Details Date Type Department Care Team (Late st Contact Info) Description 04/29/2024 Orders Only [facility] 703 [facility] 150 [place] [phone] Ahsan [address] DO 703 [facility] 150 [place] [address] Social History Tobacco Use Types [...] Description 06/14/2025 9:30 AM EDT Office Visit [facility] [address] [place] [address] Jr. Rhett Navarro, DO 112 [facility] [address] [place] [address] 07/26/2025 8:00 AM EST Procedure Visit [facility] [place] [facility] [address] [place] [address] Kristine Branham DPM [address] [place] [address] 12/21/2025 9:00 AM EDT Office Visit [facility] [address] [place] [address], DO [address] [place] [address] documented as of this encounter Procedures Procedure Name Priority Date/Time Associated Diagnosis Comments *MAMMOGRAM (BILATERAL), DIAGNOSTIC COMPUTER AIDED Routine 04/29/2024 9:08 AM EDT documented in this encounter Results * *MAMMOGRAM (BILATERAL), DIAGNOSTIC COMPUTER AIDED (04/29/2024 9:08 AM EDT) Anatomical Region Laterality Modality Radiographic Henna ging us Ahsan Way DO IMG XR PROCEDURES Final R esult documented in this encounter Visit Diagnoses Not on filedocumented in this encounter Care Teams Market Reporter Relationship Specialty Start Date End Date Kristopher Vera DO [address] [place] [address] PCP - [employer] 12/22/21 08/23/24 Kristopher Vera DO [address] [place] [address] PCP - General Internal Medicine 12/30/22 03/13/25 Maurice Melo MD [address] [place] [address] PCP - General Internal Medicine 03/14/25 03/16/25 Karlos Morgan MD [address] [place] [address] PCP - General Family Medicine 03/17/25 documented as of this encounter
--- OUTSIDE RECORDS SUMMARY | 2025-06-07 15:27 | XMS_ITS | Encounter Summary ---
Author Organization [facility] Address [address] [facility] [place] [address] Care Team Providers Care Screw Eye Assembler Name Role Phone Kristopher Vera DO Unavailable [phone] Kristopher Vera DO Primary Care Provider [phone] Kristopher Vera DO Unavailable [phone] Maurice Melo MD Primary Care Provider [phone] Karlos Morgan MD Primary Care Provider [phone] Encounter Details Date Type Department Care Team (Latest Contact Info) Description 07/28/2023 Orders Only [facility] Katherine Pantoja, [place] 703 [facility] [address] [place] [address] Social History Tobacco Use Types [...] Office Visit [facility] [place] [facility] [address] [place] [phone] Jr. Rhett Navarro, DO 112 [facility] [address] [place] [address] 07/26/2025 8:00 AM EST Procedure Visit [facility] [place] [facility] [address] [place] [address] Kristine Branham DPM [address] [place] [address] 12/21/2025 9:00 AM EDT Office Visit [facility] [address] [place] [address] Ahsan Way, DO 703 [facility] [address] [place] [address] documented as of this encounter Visit Diagnoses Not on filedocumented in this encounter Care Teams Screw Eye Assembler Relationship Specialty Start Date End Date Kristopher Vera DO [address] [place] [address] PCP - [employer] 12/22/21 08/23/24 Kristopher Vera DO [address] [place] [address] PCP - General Internal Medicine 12/30/22 03/13/25 Kristopher Vera DO [address] [place] [address] PCP - [employer] 11/22/21 02/22/24 Maurice Melo MD [address] [place] [address] PCP - General Internal Medicine 03/14/25 03/16/25 Karlos Morgan MD [address] [place] [address] PCP - General Family Medicine 03/17/25 documented as of this encounter
--- OUTSIDE RECORDS SUMMARY | 2025-06-07 15:27 | XMS_ITS | Encounter Summary ---
Author Organization [facility] Address [address] [place] [address] Care Team Providers Care Newcomer Hostess Name Role Phone Karlos Morgan MD Primary Care Provider [phone] Reason for Visit * Reason Onset Date Comments Possible infection 06/07/2025 Encounter Details Date Type Department Care Team (Late st Contact Info) Description 06/07/2025 Telephone [facility] [facility] [address] [place] [address] Kristine Branham DPM [address] [place] [address] Possible infection Social History Tobacco Use Types Packs/Day Years [...] on file documented as of this encounter Miscellaneous Notes * Telephone Encounter - Selam Persaud MA - 06/07/2025 3:03 PM EDT Patient was called and LVM regarding the above. Patient was advised that we can see her at 3:15 tomorrow and to call us back and let us know if that works for her or not. * Telephone Encounter - Kristine Branham DPM - 06/07/2025 1:02 PM EDT I don't have any openings today. I can see her tomorrow at 11AM or 3:15 PM. If these don't work, I am fine to call in an antibiotic and then see her next week for recheck. * Telephone Encounter - Beulah Jalloh - 06/07/2025 11:01 AM EDT Rt foot that had surgery done on it is red swollen and warm to the touch from her ankle and up intoher leg. She wants to know if he can get in today to get it checked out. documented in this encounter Plan of Treatment Upcoming Encounters Date Type Department Care Team (Late st Contact Info) Description 06/14/2025 9:30 AM EDT Office Visit [facility] [address] [place] [address] Jr. Rhett Navarro, [address] [place] [address] 07/26/2025 8:00 AM EST Procedure Visit [facility] [address] [place] [address] Kristine Branham DPM [address] [place] [address] 12/21/2025 9:00 AM EDT Office Visit [facility] [address] [address] DO [address] [address] documented as of this encounter Visit Diagnoses Not on filedocumented in this encounter Additional Health Concerns Assessment Noted Time PHQ-9 Depression Total Score: 0 01/10/20 8:00 AM EDT documented as of this encounter Care Teams Newcomer Hostess Relationship Specialty Start Date End Date Karlos Morgan MD [address] [place] [address] PCP - General Family Medicine 03/17/25 documented as of this encounter
--- OUTSIDE RECORDS SUMMARY | 2025-06-07 15:28 | XMS_ITS | Encounter Summary ---
Author Organization [facility] Address [address] [facility] [place] [address] Care Team Providers Care Manager Entry Name Role Phone Kralos Morgan MD Primary Care Provider [phone] Encounter Details Date Type Department Care Team (Late Contact Info) Description 03/27/2025 Orders Only [facility] [place] [facility] [address] [facility] [address] [place] [address] Unallocated, [facility] Provider, [address] [place] [address] Social History Tobacco Use Types Packs/Day Years [...] Orthopaedics [address] [place] [address] Jr. Rhett Navarro, DO 112 [facility] [address] [place] [address] 07/26/2025 8:00 AM EST Procedure Visit [facility] [place] [facility] [address] [place] [address] Kristine Branham DPM [address] [place] [address] 12/21/2025 9:00 AM EDT Office Visit [facility] [address] [facility] [address] [place] [address], DO 703 [facility] 150 [place] [address] documented as of this encounter Procedures Procedure Name Priority Date/Time Associated Diagnosis Comments XR CHEST 2 VIEWS Routine 03/24/2025 9:02 AM EDT documented in this encounter Results * XR chest 2 views (03/24/2025 9:02 AM EDT) Anatomical Region Laterality Modality Chest Radiographic Henna ging us [facility] Provider Unallocated IMG XR PROCEDURES F inal Result documented in this encounter Visit Diagnoses Not on filedocumented in this encounter Additional Health Concerns Assessment Noted Time PHQ-9 Depression Total Score: 0 01/10/20 8:00 AM EDT documented as of this encounter Care Teams Manager Entry Relationship Specialty Start Date End Date Karlos Morgan MD [address] [facility] [address] PCP - General Family Medicine 03/17/25 documented as of this encounter
--- OUTSIDE RECORDS SUMMARY | 2025-06-07 15:28 | XMS_ITS | Encounter Summary ---
Author Organization [facility] Address [address] [email or web address] [place] [address] Care Team Providers Care Medicare Insurance Specialist Name Role Phone Kristopher Vera DO Unavailable [phone] Kristopher Vera DO Primary Care Provider [phone] Kristopher Vera DO Unavailable [phone] Maurice Melo MD Primary Care Provider [phone] Karlos Morgan MD Primary Care Provider [phone] Encounter Details Date Type Department Care Team (Late st Contact Info) Description 02/17/2024 Orders Only [facility] [place] [facility] [address] [facility] [address] [place] [address] A, Unknown Practice [address] [place], [place] [phone] Social History Tobacco Use Types Packs/Day Years [...] Description 06/14/2025 9:30 AM EDT Office Visit [facility] [address] [place] [address] Jr. Rhett Navarro C, DO [address] [place] [address] 07/26/2025 8:00 AM EST Procedure Visit [facility] [address] [place] [address] Kristine Branham, DPM [address] [place] [address] 12/21/2025 9:00 AM EDT Office Visit [facility] [address] [place] [address] Ahsan [address] H, DO [address] [place] [address] documented as of this encounter [...] on filedocumented in this encounter Care Teams Medicare Insurance Specialist Relationship Specialty Start Date End Date Kristopher Vera DO [address] [facility] [address] [place] [address] PCP - [employer] 12/22/21 08/23/24 Kristopher Vera DO [address] [facility] [address] [place] [address] PCP - General Internal Medicine 12/30/22 03/13/25 Kristopher Vera DO [address] [facility] [address] [place] [address] PCP - [employer] 11/22/21 02/22/24 Maurice Melo MD [address] [facility] [address] [place] [address] PCP - General Internal Medicine 03/14/25 03/16/25 Karlos Morgan MD [address] [place] [address] PCP - General Family Medicine 03/17/25 documented as of this encounter
--- OUTSIDE RECORDS SUMMARY | 2025-06-07 15:28 | XMS_ITS | Clinical Summary ---
Author Organization [facility] Address [address] [place] [address] Care Team Providers Care Elastic Tape Inserter Name Role Phone Karlos Morgan MD Primary Care Provider [phone] Allergies No known active allergies Medications Lancet [...] TABLETS BY MOUTH THREE TIMES PER DAY 12/21/19 23 Active cholecalciferol (Vitamin D-3) 25 MCG (1000 UT) tablet Take 1,000 Units by mouth in the morning. Active BD Insulin Syringe U/F 30G X 1/2 0.5 ML misc 08/20/20 22 Active Lancets (OneTouch Delica Plus [id number]) miscIndications:Ty pe 2 diabetes mellitus with diabetic polyneuropathy, with long-term current use of insulin (HCC) USE TO TEST BLOOD SUGAR 3 TIMES DAILY DIRECTED 100 each 10 11/09/19 24 Active pantoprazole (ProtoNix) 40 MG EC tabletIndications: Gastroesophageal reflux disease without esophagitis Take 1 tablet (40 mg) by mouth in the morning. Take before meals. 90 tablet 3 03/25/20 24 Active losartan (Cozaar) 50 MG tabletIndications: Primary hypertension TAKE 1 TABLET EVERY MORNING 90 tablet 3 07/18/20 24 Active Continuous Glucose Sensor (FreeStyle Carline 3 Sensor) miscIndications:Di abetic peripheral neuropathy associated with type 2 diabetes mellitus (HCC),supervisor intermediates current use of insulin ([facility]) 1 Device every 14 (fourteen) days 7 each 3 09/06/19 25 026 Active Continuous Glucose Client Leader (FreeStyle Carline 3 Newton) deviceIndications: Diabetic peripheral neuropathy associated with type 2 diabetes mellitus (HCC),supervisor intermediates current use of insulin ([facility]) USE I DEVICE CONTINUOUSLY 1 each 3 11/02/19 25 Active furosemide (Lasix) 20 MG tabletIndications: Left leg swelling TAKE 1 TABLET BY MOUTH EVERY DAY 90 tablet 1 12/23/19 25 Active rosuvastatin (Crestor) 20 MG tabletIndications: Mixed hyperlipidemia TAKE 1 TABLET BY MOUTH AT BEDTIME 90 tablet 3 01/27/20 25 Active glucose blood (OneTouch Verio) test stripIndications:T ype 2 diabetes mellitus with diabetic polyneuropathy, with long-term current use of insulin ([facility]) USE TO TEST BLOOD SUGAR 3 TIMES A DAY DIRECTED 300 strip 3 01/27/20 25 Active clobetasol (Temovate) 0.05 % ointmentIndication s:Atrophic vaginitis APPLY TO AFFECTED AREA TWICE A DAY 30 g 3 01/27/20 25 Active insulin aspart protamine-insulin aspart (NovoLOG MIX 70/30) (70-30) 100 UNIT/ML injectionIndicatio ns:Type 2 diabetes mellitus with diabetic polyneuropathy, with long-term current use of insulin ([facility]) Inject 14 Units under the skin in the morning and 14 Units in the evening. Inject with meals. 26 mL 3 01/31/20 25 Active insulin pen needle 31G x 4 mm miscIndications:Ty pe 2 diabetes mellitus with diabetic polyneuropathy, with long-term current use of insulin ([facility]) Inject 1 each under the skin in the morning and 1 each before bedtime. Use as instructed. 180 each 3 01/31/20 25 Active citalopram (CeleXA) 20 MG tabletIndications: Depression, unspecified depression type TAKE 1 TABLET EVERY MORNING 90 tablet 2 02/01/20 25 Active Eliquis 5 MG tablet Take 5 mg by mouth in the morning and 5 mg before bedtime. 03/16/20 25 Active celecoxib (CeleBREX) 200 MG capsuleIndications :Posterior tibial tendonitis, right Take 1 capsule (200 mg) by mouth in the morning and 1 capsule (200 mg) before bedtime. 60 capsule 04/20/20 025 Active Problems Problem Noted Date Diagnosed Date Type 2 diabetes mellitus wit h chronic kidney disease, with long-term current use of insulin 01/09/2025 Axillary lymphadenopathy 12/16/2024 Primary osteoarthritis of right knee 10/03/2024 Therapeutic drug monitoring 09/08/2023 Diabetic peripheral neuropat hy associated with type 2 diabetes mellitus 06/08/2023 Hypercoagulable state ([facility]) 06/08/2023 Osteoarthritis of spine with radiculopathy, cerv [...] femoral vein of left lower extremity 04/19/2018 [facility] current use of 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 0 04/13/2018 [facility] current use of insulin 10/24/2016 Mixed hyperlipidemia 06/15/2015 Obstructive sleep apnea syndrome 06/15/2015 HTN (hypertension) 06/15/2015 Spinal stenosis 06/15/2015 Resolved Problems Problem Noted Date Diagnosed Date Resolved Date Axillary lymphadenopathy 04/29/2024 BMI 32.0-32.9,adult 12/03/2023 03/09/20 Iron deficiency anemia 12/03/202303/09 Pain in right lower leg 12/03/202302/21 RLQ abdominal pain 12/03/2023 Axillary lymphadenopathy 07/19/2023 Acute dermatitis 06/08/2023 09/08/2023 Carpal tunnel syndrome 06/08/202309/08 Circulating 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 disorder ([facility]) 09/08/2023 CPAP (continuous positive ai rway [...] 04/23/2021 09/08/2023 Dyspnea on exertion 04/23/2021 09/08/19 24 Venous hypertension of left lower extremity 04/23/2021 09/08/2023 Obstructive sleep apnea (adult) (pediatric) 04/23/2021 09/08/2023 Localized, primary osteoarthritis of hand 05/21/2020 09/08/2023 Pain in wrist 05/02/2020 09/08/2023 Other obesity due to excess calories 04/24/2020 09/08/2023 Traumatic arthritis 04/09/2020 09/08/19 24 Acquired hallux valgus 01/31/202009/08 Osteoarthritis of knee 12/22/201909/08 Disorder of soft tissue 08/22/201908/244 Pain in left knee 08/22/2019 09/08/2023 Polyneuropathy [...] Encounters Date Type Department Care Team Description 06/07/2025 Telephone [facility] [place] [facility] [address] [place] [address] Kristine Branham DPM Possible infection 05/22/2025 9:45 AM EDT Procedure Visit [facility] [place] [facility] [address] [place] [address] Kristine Branham DPM Onychomycosis (Primary Dx); Pain in both feet; Type II diabetes mellitus with neurological manifestations ([facility]); Corns and callosities; Hallux malleus, right; Surgery follow-up examination 05/22/2025 Bamboo flowsheet [facility] [place] [facility] [address] [place] [address] Kristine Branham DPM 05/22/2025 Travel 04/20/2025 8:15 AM EDT Office Visit [facility] [place] [facility] [address] [place] [address] Kristine Branham DPM Posterior tibial tendonitis, right (Primary Dx); Surgery follow-up examination; Hallux malleus, right; Ulcer of great toe, right, limited to breakdown of skin (HCC) 04/20/2025 Refill [facility] [place] [facility] [address] [place] [address] Kristopher Vera DO Left leg swelling; Primary hypertension 04/20/2025 Bamboo flowsheet [facility] [place] [facility] [address] [place] [address] Kristine Branham, DPM 04/20/2025 Travel 04/05/2025 9:30 AM EDT Office Visit [facility] [place] [facility] [address] [place] [address] Kristine Branham, DPM Surgery follow-up examination (Primary Dx); Hallux malleus, right; Ulcer of great toe, right, limited to breakdown of skin (HCC); Right foot pain 04/05/2025 Bamboo flowsheet [facility] [place] [facility] [address] [place] [address] Kristine Branham, DPM 04/05/2025 Travel 03/27/2025 Orders Only [facility] [place] [facility] [address] [place] [address] Unallocated, Amari Chin MD 03/22/2025 11:15 AM EDT Office Visit [facility] [place] [facility] [address] [place] [address] Kristine Branham, DPM Surgery follow-up examination (Primary Dx); Hallux malleus, right; Right foot pain; Ulcer of great toe, right, limited to breakdown of skin (HCC) 03/22/2025 Bamboo flowsheet [facility] [place] [facility] [address] [place] [address] Kristine Branham, DPM 03/22/2025 Travel 03/16/2025 Patient Outreach [address] [place] [address] Lynda Gee LSW 03/15/2025 Refill [facility] [place] [facility] [address] [place] [address] Kristopher Vera DO Chronic deep vein thrombosis (DVT) of femoral vein of left lower extremity (HCC) 03/14/2025 9:00 AM EDT Office Visit [facility] [place] [facility] [address] [place] [address] Kristine Branham, IRAM Surgery follow-up examination (Primary Dx); Hallux malleus, right; Right foot pain 03/14/2025 Bamboo flowsheet [facility] [place] [facility] [address] [place] [address] Kristine Branham DPM 03/14/2025 Travel 03/09/2025 8:45 AM EDT Office Visit [facility] [place] [facility] [address] [place] [address] Albino Hugo PA Acute pain of left knee (Primary Dx); Primary osteoarthritis of left knee 03/09/2025 [facility] [place] [facility] [address] [place] [address] Albino Hugo PA 03/09/2025 Travel 03/07/2025 8:30 AM EDT Office Visit [facility] [place] [facility] [address] [place] [address] Kristine Branham DPM Surgery follow-up examination (Primary Dx); Hallux malleus, right; Right foot pain; Ulcer of great toe, right, limited to breakdown of skin ([facility]) 03/07/2025 Telephone [facility] [place] [facility] [address] [place] [address] Kristine Branham DPM 03/07/2025 Bamboo flowsheet [facility] [place] [facility] [address] [place] [address] Kristine Branham DPM 03/07/2025 Travel from Last 3 Months Immunizations Immunization [...] Description 06/14/2025 9:30 AM EDT Office Visit [facility] [place] [facility] [address] [place] [address] Jr. Rhett Navarro, DO [address] [place] [address] 07/26/2025 8:00 AM EST Procedure Visit [facility] [place] [facility] [address] [place] [address] Kristine Branham DPM [address] [place] [address] 12/21/2025 9:00 AM EDT Office Visit [facility] [address] [place] [address], DO [address] [address] Health Maintenance Due Date Last Done Comments CT Colonography 1950 FIT-DNA 1950 Sigmoidoscopy 1950 FIT 05/18/2020 05/18/2019 FOBT 09/08/2024 09/08/2023 Influenza Vaccine (#1) 2025 4, 05/29/2023, 05/27/2023, Additional history exists Mammogram 12/07/2025 12/07/2024, 11/22, 04/29/2024, Additional history exists Colonoscopy 12/27/2033 12/28/2023, 050 01/2024, 12/28/2023, Additional history exists Colorectal Cancer Screening 12/27/2033 Pneumococcal Vaccine: 65+ Years Completed 12/04/2021, 01/14/2019, 07/06/2015, Additional history exists Procedures Procedure Name Priority Date/Time Associated Diagnosis Comments XR CHEST 2 VIEWS Routine 03/24/2025 9:02 AM EDT XR FOOT 3+ VIEWS RIGHT Routine 9:15 AM EDT Surgery follow-up examination BI MAMMOGRAM DIAGNOSTIC TOMOSYNTHESIS BILATERAL Routine 12/07/2024 [...] Unallocated IMG XR PROCEDURES F inal Result * XR foot 3+ views right (03/07/2025 9:15 AM EDT) Anatomical Region Laterality Modality Lower Extremities, Foot [...] right hallux. Hammertoes to the lesser digits. us Kristine Branham DPM IMG XR PROCEDURES Final Re sult * Bilateral diagnostic mammogram with tomosynthesis (12/07/2024 [...] Impression dictated by: Noe De Leon Jr., DOmariOOmari12/07/2024 9:30 AM Dictation Location: [facility] Dictated By: Noe De Leon Jr, DO 12/07/24 0922 Signed By: <Electronically signed by Noe De Leon Jr, DO in OV> 12/07/24 0930 Narrative 12/07/2024 9:32 AM EDT [facility] [address] [place] [address] Mammography Report Signed Patient: Nicol Frances MR#: [id number] 94 : 1950 Acct:[id number] Age/Sex: 74 / F Adm Date: 12/07/24 Loc: [place] Room: Type: REG CLI Attending Dr: Ahsan Way DO Ordering Provider: Ahsan Way DO Date of Service: 12/07/24 Procedure(s): MM diagnostic mammo BI w/CAD Accession Number(s): ([id number]) MM/MM diagnostic mammo BI w/CAD: Yrly mamms [...] w/CAD Procedure Note Noe De Leon Jr., - 12/07/2024 [place] [address] Mammography Report Signed Patient: Nicol Frances JMR#: [id number] [birth year] : 1950cct:[id number] Age/Sex: 74 / FAdm Date: 12/07/24 Loc: [place] Room:Type: REG CLI Attending Dr: Ahsan Way DO Ordering Provider: Ahsan Way DO Date of Service: 12/07/24 Procedure(s): MM diagnostic mammo BI w/CAD Accession Number(s): ([id number]) MM/MM diagnostic mammo BI w/CAD: Yrlymamms w/Lt. [...] Leon Jr, DO 12/07/24 0922 Signed By: <Electronically signed by Noe De Leon Jr, DO inOV> 12/07/[address] DO IMG BI PROCEDURES Final R esult * Colonoscopy (12/28/2023 1:24 PM EDT) Anatomical Region Laterality Modality Endoscopy Sandy Clark DO ENDOSCOPY PROCEDURE ORDERABLES F inal Result * (ABNORMAL) Occult blood x 1, stool (09/08/2023 12:00 AM EST) MICRO NUMBER [id number] [facility] SPECIMEN QUALITY Adequate [facility] SOURCE NOT GIVEN [facility] STATUS FINAL [facility] FECAL GLOBIN RESULT SEE NOTE(A) [facility] Comment: Detected Stool Rectal contents / Unknown 09/08/2023 11/13/2023 3:51 PM EDT Narrative Resulting Agency Comment Performing Organization Information Site ID: [email or web address] Name: [email or web address] Address: [address] [place] [address], [address] [place] [phone] Director: Celestino Jung MD us Adam Smith EXPRESSIVE ART THERAPIST LAB BODY FLUIDS AND STOOLS O RDERABLES Final Result [facility] * Q - FECAL GLOBIN BY IMMUNO (MEDICARE) (05/18/2019) FECAL GLOBIN BY IMMUNOCHEM. (MEDICARE) SEE NOTE [facility] Comment: FECAL GLOBIN BY IMMUNOCHEM. (MEDICARE) MICRO NUMBER: [id number] TEST STATUS: FINAL SPECIMEN SOURCE: INSURE (TM) FOBT TEST CARD SPECIMEN QUALITY: ADEQUATE RESULT: Not Detected 05/18/2019 Kristopher Vera DO [facility] Final Result [facility] from Last 3 Months or Most Recently Relevant to Health Maintenance Insurance [employer] Advance Directives * Full Code (Latest Code Status on File) Date Activated Date Inactivated Comments 12/03/2023 10:52 AM Care Teams Elastic Tape Inserter Relationship Specialty Start Date End Date Karlos Morgan MD [address] [place] [address] PCP - General Family Medicine 03/17/25
--- OUTSIDE RECORDS SUMMARY | 2025-06-07 15:28 | XMS_ITS | Patient Health Record ---
Author Organization [facility] Address [address] [place] [address] [place] [address] Care Team Providers Care Child And Family Services Specialist Name Role Phone Kristopher Vera DO Primary Care Provider Unavail able Raphael Roberson Unavailable [phone] Reason For Referral No Information Plan Of Treatment No Information Insurance Providers Payer Name Payer Address Payer Phone Subscriber Number Group Number Insured Name Patient Relationship to Insured Coverage Start Date Coverage End Date [employer] Choice PPO [address] [address] [place], [place] [id number] [phone] [id number] Nicol Frances Self - patient is the insured
--- OUTSIDE RECORDS SUMMARY | 2025-06-07 15:28 | XMS_ITS | Encounter Summary ---
Author Organization [facility] Address [address] [place] [address] Care Team Providers Care Filament Coil Winder Name Role Phone Kristopher Vera DO Unavailable [phone] Kristopher Vera DO Primary Care Provider [phone] Kristopher Vera DO Unavailable [phone] Maurice Melo MD Primary Care Provider [phone] Karlos Morgan MD Primary Care Provider [phone] Encounter Details Date Type Department Care Team (Late st Contact Info) Description 12/28/2023 Orders Only [facility] [place] [facility] [address] [place] [address] Sandy Clark DO [address] [place] [address] Social History Tobacco Use Types Packs/Day Years [...] [address] [place] [address] Jr. Rhett Navarro, DO [address] [facility] [address] [place] [address] 07/26/2025 8:00 AM EST Procedure Visit [facility] [address] [place] [address] Kristine Branham DPM [address] [place] [address] 12/21/2025 9:00 AM EDT Office Visit [facility] [address] [place] [address] Ahsan Way, DO [address] [place] [address] documented as of this encounter Procedures Procedure Name Priority Date/Time Associated Diagnosis Comments COLONOSCOPY Routine 12/28/2023 1:24 PM EDT documented in this encounter Results * Colonoscopy (12/28/2023 1:24 PM EDT) Anatomical Region Laterality Modality Endoscopy Sandy Clark DO ENDOSCOPY PROCEDURE ORDERABLES F inal Result documented in this encounter Visit Diagnoses Not on filedocumented in this encounter Care Teams Filament Coil Winder Relationship Specialty Start Date End Date Kristopher Vera DO [address] [place] [address] PCP - [facility] 12/22/21 08/23/24 Kristopher Vera DO [address] [place] [address] PCP - General Internal Medicine 12/30/22 03/13/25 Kristopher Vera DO [address] [facility] [address] [place] [address] PCP - [employer] 11/22/21 02/22/24 Maurice Melo MD [address] [facility] [address] [place] [address] PCP - General Internal Medicine 03/14/25 03/16/25 Karlos Morgan MD [address] [place] [address] PCP - General Family Medicine 03/17/25 documented as of this encounter
--- OUTSIDE RECORDS SUMMARY | 2025-06-07 15:28 | XMS_ITS | Encounter Summary ---
Author Organization [facility] Address [address] [place] [address] Care Team Providers Care Statement Processor Name Role Phone Kristopher Vera DO Unavailable [phone] Kristopher Vera DO Primary Care Provider [phone] Kristopher Vera DO Unavailable [phone] Maurice Melo MD Primary Care Provider [phone] Karlos Morgan MD Primary Care Provider [phone] Encounter Details Date Type Department Care Team (Late st Contact Info) Description 12/29/2023 Orders Only [facility] [place] [facility] [address] [place] [address] Dee Anaya MA Social History Tobacco Use [...] [address] [place] [address] Jr. Rhett Navarro, DO [address] [facility] [address] [place] [address] 07/26/2025 8:00 AM EST Procedure Visit [facility] [place] [facility] [address] [place] [address] Kristine Branham DPM [address] [place] [address] 12/21/2025 9:00 AM EDT Office Visit [facility] [address] [facility] [address] [place] [address] Ahsan Way, DO [address] [facility] [address] [place] [address] documented as of this encounter Visit Diagnoses Not on filedocumented in this encounter Care Teams Statement Processor Relationship Specialty Start Date End Date Kristopher Vera DO [address] [place] [address] PCP - [facility] 12/22/21 08/23/24 Kristopher Vera DO [address] [place] [address] PCP - General Internal Medicine 12/30/22 03/13/25 Kristopher Vera DO [address] [place] [address] PCP - [employer] 11/22/21 02/22/24 Maurice Melo MD [address] [place] [address] PCP - General Internal Medicine 03/14/25 03/16/25 Karlos Morgan MD [address] [facility] [place] [address] PCP - General Family Medicine 03/17/25 documented as of this encounter
--- OUTSIDE RECORDS SUMMARY | 2025-06-07 15:28 | XMS_ITS | Encounter Summary ---
Author Organization [facility] Address [address] [place] [address] Care Team Providers Care Customer Operations Specialist Name Role Phone Kristopher Vera DO Unavailable [phone] Kristopher Vera DO Primary Care Provider [phone] Kristopher Vera DO Unavailable [phone] Maurice Melo MD Primary Care Provider [phone] Karlos Morgan MD Primary Care Provider [phone] Encounter Details Date Type Department Care Team (Late st Contact Info) Description 12/07/2023 External Result Encounter [facility] External Department Unsolicited Ahsan Way, DO [address] [place] [address] Social History Tobacco Use Types Packs/Day Years [...] [address] [place] [address] Jr. Rhett Navarro, DO [address] [place] [address] 07/26/2025 8:00 AM EST Procedure Visit [facility] [place] [facility] [address] [place] [address] Kristine Branham DPM [address] [place] [address] 12/21/2025 9:00 AM EDT Office Visit [facility] [address] [place] [address] Ahsan Way H, DO [address] [place] [address] documented as of this encounter Procedures Procedure [...] Marcus Galvan M.D.12/07/2023 2:49 PM Dictation Location: [facility] Transcribed By: [facility] 12/07/23 1449 Dictated By: Marcus Galvan II, MD 12/07/231421 Signed By: <Electronically signed by Marcus Galvan II, MD in OV> 12/07/23 1449 Narrative 12/07/2023 2:58 PM EDT [facility] [place] [address] Mammography Report Signed Patient: Nicol Frances MR#: [id number] 94 : 1950 Acct:[id number] Age/Sex: 73 / F ADM Date: 12/07/23 Loc: [place] Room: Type: [facility] Attending Dr: Ahsan Way DO Copies to: DO Kristopher Carvalho DO Ordering Provider: Ahsan Way DO Date of Service: 12/07/23 MM/MM diagnostic mammo BI w/CAD: Yrly mamms ([id number]) US/US extremity nonvascular: R59.0 CLINICAL DATA: Palpable [...] mammo BI w/CAD Procedure Note Radiology, Radiologist, - 12/07/2023 [facility] [place] [address] [place] [address] Mammography Report Signed Patient: Nicol Frances JMR#: [id number] 94 : 1950cct:[id number] Age/Sex: 73 / FADM Date: 12/07/23 Loc: [place] Room:Type: [facility] Attending Dr: Ahsan Way DO Copies to: DO Kristopher Carvalho DO Ordering Provider: Ahsan Way DO Date of Service: 12/07/23 MM/MM diagnostic mammo BI w/CAD: Yrly mamms ([id number]) US/US extremity nonvascular: R59.0 CLINICAL DATA: Palpable [...] Marcus Galvan M.D.12/07/2023 2:49 PM Dictation Location: [facility] Transcribed By: [facility] 12/07/23 1449 Dictated By: Marcus Galvan II, MD 12/07/23 1422 Signed By: <Electronically signed by Marcus Galvan II, MD inOV> 12/07/[address] DO IMG US PROCEDURES Final R esult documented in this encounter Visit Diagnoses Not on filedocumented in this encounter Care Teams Customer Operations Specialist Relationship Specialty Start Date End Date Kristopher Vera DO [address] [facility] [address] [place] [address] PCP - Devoted 12/22/21 08/23/24 Kristopher Vera DO [address] [facility] [address] [place] [address] PCP - General Internal Medicine 12/30/22 03/13/25 Kristopher Vera DO [address] [place] [address] PCP - [employer] 11/22/21 02/22/24 Maurice Melo MD [address] [place] [address] PCP - General Internal Medicine 03/14/25 03/16/25 Karlos Morgan MD [address] [place] [address] PCP - General Family Medicine 03/17/25 documented as of this encounter
--- NOTE | 2025-06-07 15:30 | XR_ITS ---
The [address] [address] Patient Name: ANDREA GLEZ MRN: [id number] date: 1950 Sex: F Assigned Patient Location: ER Current Patient Location: ER Accession/Order Number: [id number] Exam Date: 06/07/2025 15:52 Report Date: 06/07/2025 16:35 At the request of: SAL CHEN MD Procedure: XR foot RT min 3V XR foot RT min 3V 06/07/2025 4:03 PM SIGNS AND SYMPTOMS: Redness and swelling of right foot and ankle, history of hardware fixation of the great toe PROTOCOL: 3 views of the right foot COMPARISON: None FINDINGS: Degenerative changes are noted throughout the midfoot greatest along the tarsometatarsal junctions. Degenerative changes are noted at the second metatarsophalangeal joint. There is fusion hardware across the first metatarsophalangeal joint. Degenerative changes are also noted in the interphalangeal joint of the great toe with valgus angular deformity of the interphalangeal joint. There is diffuse soft tissue swelling. There is plantar and Achilles surface calcaneal spurring. XR/XR foot RT min 3V IMPRESSION: No fracture or dislocation. Degenerative changes are noted throughout the right foot with diffuse soft tissue swelling. Impression dictated by: Marcus Galvan M.D. 06/07/2025 4:35 PM Dictation Location: [place] [address] Electronically authenticated by: [id number] Y Date: 06/07/2025 16:35
--- NOTE | 2025-06-07 15:31 | XR_ITS ---
The [address] [address] Patient Name: ANDREA GLEZ MRN: [id number] date: 1950 Sex: F Assigned Patient Location: ER Current Patient Location: ER Accession/Order Number: [id number] Exam Date: 06/07/2025 15:52 Report Date: 06/07/2025 16:36 At the request of: SAL CHEN MD Procedure: XR ankle RT min 3V XR ankle RT min 3V 06/07/2025 4:03 PM SIGNS AND SYMPTOMS: ^swelling PROTOCOL: 3 views of the right ankle COMPARISON: None FINDINGS: The ankle mortise is preserved. There is no fracture or dislocation. There is diffuse soft tissue swelling. There is plantar and Achilles surface calcaneal spurring. Degenerative changes are noted in the midfoot. XR/XR ankle RT min 3V IMPRESSION: No fracture or dislocation. Diffuse soft tissue swelling is noted with degenerative changes noted throughout the midfoot. Impression dictated by: Marcus Galvan M.D. 06/07/2025 4:36 PM [facility]ictation [facility] Electronically authenticated by: [id number] Y Date: 06/07/2025 16:36
--- OUTSIDE RECORDS SUMMARY | 2025-06-07 15:31 | XMS_ITS | CCD ---
Author Organization [facility] Care Team Providers Care Draw Tender Name Role Phone Lauren Vance Unavailable Antonio Thompson Unavailable Tang Mcclellan Unavailable DO Kristopher Herzog Primary Care Provider MD Tang Mcclellan Attending Provider [phone] IRAM Molina Attending Provider [phone] DO Kristopher Herzog Attending Provider DO Kristopher Herzog Primary Care Provider [phone] DO Kristopher Herzog Attending Provider DO Radha Verduzco Attending Provider DO Kristopher Herzog Primary Care Provider IRAM Molina Attending Provider DO Kristopher Herzog Attending Provider [phone] DO Radha Verduzco Attending Provider MD Edmond Branham Emergency Provider Olu Rene Unavailable DO Kristopher Herzog Primary Care Provider [phone] DO Kristopher Herzog Attending Provider Kiersten Qureshi Unavailable DO Kristopher Herzog Primary Care Provider MD Edmond Branham Emergency Provider DO Kristopher Herzog Attending Provider DO Radha Verduzco Attending Provider DO Kristopher Herzog Attending Provider FAITH Lobo Emergency Provider [phone] MD Rosalina Shelton Admit Provider [phone] MD Rosalina Shelton Attending Provider DO Chuy Kristopher Primary Care Provider DO Gabriel Castaneda Attending Provider DO Kristopher Herzog Primary Care Provider DO Kristopher Herzog Attending Provider DO Radha Verduzco Attending Provider [phone] NO FAMILY, PHYSICIAN Primary Care Provider Unava ilable Tita Roberts Unavailable Kristopher Herzog DO Unavailable Kristopher Herzog DO Primary Care Provider DO Kristopher Herzog Primary Care Provider DO Kristopher Herzog Attending Provider DO Chuy Kristopher Primary Care Provider DO Kristopher Herzog Attending Provider DO Radha Verduzco Attending Provider Ly, DO Sandy L Attending Provider DO Kristopher Herzog Primary Care Provider DO Johnny Keen Emergency Provider [phone] DO Kristopher Herzog Primary Care Provider DO Chuy Kristopher Primary Care Provider Kristopher Herzog DO Unavailable Kristopher Herzog Primary Care Unavailable Ly, Sandy L Admitting Unavailable Ly, Sandy L Attending Unavailable Johnny Keen Admitting Unavailable Johnny Keen Attending Unavailable Kristopher Herzog Primary Care Unavailable Radha Verduzco Admitting Unavailable Radha Verduzco Attending Unavailable Kristopher Herzog Primary Care Unavailable Kristopher Herzog DO Primary Care Provider [phone] Radha Verduzco DO Attending Provider Kristopher Herzog DO Primary Care Provider Kristopher Herzog DO Referring Provider Kiersten Qureshi RPH Attending Provider Toyin Roberts PharmD, Tita Attending Provider Kristopher Batista DO Primary Care Provider [phone] Kristopher Herzog DO Referring Provider Kiersten Qureshi RPH Attending Provider Karlos Ramey MD Primary Care Provider [phone] KRISTOPHER HERZOG Attending Unavailable KRISTOPHER HERZOG Referring Unavailable DIDSULY VENITA L Attending Unavailable DIDION, VENITA L Referring Unavailable DIDION, VENITA L Referring Unavailable AROLDO BRANHAMANDRA Thurman Attending Unavailable DIDION, VENITA L Attending Unavailable DIDION, VENITA L Referring Unavailable DIDION, VENITA L Referring Unavailable KRISTOPHER HERZOG Attending Unavailable RADHA VERDUZCO Attending Unavailable KRISTOPHER HERZOG Attending Unavailable YONAS, MARLON H Attending Unavailable DIDION, VENITA L Attending Unavailable DIDION, VENITA L Referring Unavailable ADAM RODRIGUEZ Attending Unavailable YONAS, MARLON H Attending Unavailable YONAS, MARLON H Attending Unavailable YONAS, MARLON H Attending Unavailable CARO HUGO Attending Unavailable DIDION, VENITA L Referring Unavailable BRANHAM, MARLON H Attending Unavailable BRANHAM, MARLON H Attending Unavailable YONAS, MARLON H Attending Unavailable YONAS, MARLON H Attending Unavailable YONAS, MARLON H Attending Unavailable Medications Current Medications Medication Drug Class(es) Dates Sig (Normalized) Sig (Original) acetaminophen 500 mg oral tablet (20 sources) Start: 05-08-2021 take 2 tablets by mouth every six hours as needed for pain take 2 tablets by [facility] twice daily as needed for pain acetaminophen (Tylenol Extra Strength) 5 00 MG tablet Take 1,000 mg by mouth 2 (two) times a day as needed for mild pain. Active Tylenol Active acetaminophen 325 mg / HYDROcodone bitartrate 5 mg oral tablet (20 sources) Opioid Agonist Start: 03-02-2025 End: 03-07-2025 take 1 tablet by mouth every six hours for pain HYDROcodone-acetaminophen ([place]) 5-325 MG tablet Indications: Hallux malleus, right , Right foot pain Take 1 tablet by mouth every 6 (six) hours if needed for severe pain for up to 5 days 20 tablet 03/02/2025 03/07/2025 Active Start: 02-16-2025 End: 02-21-2025 take 1 tablet by mouth every six hours for pain HYDROcodone-acetaminophen ([place]) 5-325 MG tablet Indications: Hallux malleus, right [...] six hours as needed for pain Hydrocodone-Acetaminophen ([place]) 5-325 mg tablet Discontinued 1 TAB PO [...] 2024 11:36am apixaban 5 mg oral tablet (10 sources) Factor Xa Inhibitor Start: 03-16-2025 take [...] 30 g 2 09/17/2023 Active Continuous Glucose Family Physician (FreeStyle Carline 3 [place]) device (20 sources) Start: 11-01-2024 Continuous Glu cose Family Physician (FreeStyle [place]line 3 [place]) device Indications: Diabetic peripheral neuropathy associated with type 2 diabetes mellitus (HCC) , jail current use of insulin ([facility]) USE I DEVICE CONTINUOUSLY 1 each 3 11/01/2024 Active Start: 11-01-2024 Continuous Glu cose Family Physician (FreeStyle [place] 3 [place]) device Indications: Diabetic peripheral neuropathy associated with type 2 diabetes mellitus (CMS/HCC) , 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 (CMS/HCC) USE I DEVICE CONTINUOUSLY 1 each 3 11/01/2024 Active Start: 09-06-2024 End: 09-06-2025 Continuous Glucose Family Physician (FreeStyle [place]line 3 [place]) device Indications: Diabetic peripheral neuropathy associated with type 2 diabetes mellitus (CMS/HCC) , jail current use of insulin (CMS/HCC) 1 Device continuously 1 each 09/06/2024 09/06/2025 Active Continuous Glucose Sensor (FreeStyle Carline 3 Sensor) misc (20 sources) Start: 09-06-2024 End: 09-06-2025 Continuous Glucose Sensor (FreeStyle Carline 3 Sensor) misc Indications: Diabetic peripheral neuropathy associated with type 2 diabetes mellitus (HCC) , 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 (HCC) 1 Device every 14 (fourteen) days 7 each 3 09/06/2024 09/06/2025 Active Start: 09-06-2024 End: 09-06-2025 Continuous Glucose Sensor (F reeStyle Carline 3 Sensor) [facility] [place]ications: Diabetic peripheral neuropathy associated with type 2 diabetes mellitus (CMS/HCC) , 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 (CMS/HCC) 1 Device [...] (20 sources) Corticosteroid Start: 06-29-20 24 End: 02-14-20 25 insulin aspart protamine, human 70 unt/ml [...] 2 tablets by mouth once daily Vitamins A,C,E-Anux-Nfvdpj (Preservision Areds) 7,160 unit- 113 mg-100 unit [...] 2021 10:21am take 1 capsule by [facility] every twelve hours Gabapentin 100 MG [...] sources) alpha-Adrenergic Agonist Start: 01-23-20 End: 08-06-20 19 take 1 tablet by mouth twice daily Midodrine 2.5 mg tablet Discontinued 2.5 MG PO Twice daily January 22, 2018 12:00am August 06, 2019 1:28pm Start: 01-06-2018 take 1 tablet by barry every eight hours Midodrine HCl 2.5 MG [...] 2022 11:00pm November 09, 2023 9:07am nystatin [id number] unt/ml topical cream (20 sources) Polyene Antifungal [...] Translations: [Postmenopausal atrophic vaginitis] 06-22-2024 Chronic Mycoses (4 sources) Onychomycosis; Translations: [Tinea unguium] 08-01-2024 Episodic [...] aftercare (20 sources) Drug therapy finding; Translations: [jail (current) use of 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s] Episodic Other aftercare (20 sources) Encounter for therapeutic drug level monitoring; Translations: [Medication monitoring encounter Z51.81] Onset: 1 Resolved: 2 Episodic Other aftercare (11 sources) Surgical follow-up; Translations: [Encounter for follow-up examination after completed treatment for conditions other than malignant neoplasm] 03-07-2025 Episodic Other connective tissue disease (20 sources) Swelling of upper limb; Translations: [Other specified soft tissue disorders] 08-06-2019 Episodic Other connective tissue disease (4 sources) Pain in both feet; Translations: [Pain [...] Onset: 5 05-01-2018 Episodic Other skin disorders (6 sources) Callosity; Translations: [Corns and callosities] 08-01-2024 [...] sources) Long-term current use of insulin; 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: [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] Onset: 10-24-2016 06-08-2023 Episodic Other aftercare (20 sources) Long-term current use of 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; Translations: [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] Onset: 04-13-2018 06-08-2023 Episodic Other aftercare (20 sources) Patient encounter status; Translations: [Encounter for therapeutic drug level monitoring] Onset: 09-08-2023 09-08-2023 Episodic Other circulatory disease (20 sources) Vasculitis; Translations: [Arteritis, unspecified] Onset: 04-24-2021 Resolved: 09-08-2023 09-08-2023 Chronic Other connective tissue disease (20 sources) Swelling of left lower limb; Translations: [Other specified soft tissue disorders] Onset: 06-08-2023 Resolved: 03-09-2024 3 Episodic Other connective tissue disease (20 sources) [...] Roberts on 03-13-2025 Bedside INR (LAB) 1.6 [facility] No Panel InformationOrdered By: Tita Roberts on 03-09-2025 Bedside INR (LAB) 1.4 Critically low [facility] XR Foot - right 3 [facility] [...] right hallux. Hammertoes to the lesser digits. [facility] Radiology Study observation (narrative) [facility] No Panel InformationOrdered By: Tita Roberts on 02-22-2025 Bedside INR (LAB) 3.8 [facility] XR Foot - right 3 [facility] Result: Three views of the right foot: AP, MO, LAT were performed today in the office. Radiographs were read by myself and demonstrate: No evidence of acute fracture or dislocation. 1st MPJ arthrodess right with enlarged distal medial proximal phalanx and lateral deviation of the hallux at the IPJ. [facility] Radiology Study observation (narrative) [facility] XR KNEE 3 VIEWS LEFTon 02-13 XR [...] signed and approved by the interpreting Radiologist. Edmond Carmichael MD - 02/13/2025 XR KNEE 3 VIEWS [...] signed and approved by the interpreting Radiologist. [facility] Radiology Study observation (narrative) [facility] XR Knee - left 3 ViewsOrdere d By: Edmond Morel on 02-13-2025 [facility] Work Phone: No Panel InformationOrdered By: Kiersten Qureshi on 02-09-2025 Bedside INR (LAB) 3.2 [facility] No Panel Informationon 02-01 Bedside INR (LAB) 4.0 [facility] ALL CBC WITH AUTO DIFFon BASOPHILS ABSOLUTE AUTO 0 [facility] Basophils/100 WBC (Bld) 0.6 % 0.2 - 2.0 % [facility] Eosinophils/100 WBC (Bld) 2.6 % 0.9 - 7.0 % [facility] Erythrocyte distribution width (RBC) [Ratio] 12.3 % 11.0 - 15.0 % [facility] Hematocrit (Bld) [Volume fraction] 37.5 % 36.0 - 48.0 % [facility] Hemoglobin (Bld) [Mass/Vol] 12.9 g/dL 12.0 - 16.0 g/dL [facility] IMMATURE GRANULOCYTES ABS AUTO 0.01 [facility] Immature granulocytes/100 WBC (Bld) 0.2 % 0.0 - 0.5 % [facility] Interpretation and review of laboratory results Abnormal [facility] LYMPHOCYTES ABSOLUTE AUTO 1.2 [facility] Lymphocytes/100 WBC (Bld) 24 % 20.5 - 60.0 % [facility] MCH (RBC) [Entitic mass] 33 pg 26.7 - 34.0 pg [facility] MCHC (RBC) [Mass/Vol] 34.4 g/dL 29.9 - 35.2 g/dL [facility] MCV (RBC) [Entitic vol] 95.9 fL 81.0 - 99.0 fL [facility] MONOCYTES ABSOLUTE AUTO 0.4 [facility] Monocytes/100 WBC (Bld) 8.3 % 1.7 - 12.0 % [facility] NEUTROPHILS ABSOLUTE AUTO 3.3 [facility] Neutrophils/100 WBC (Bld) 64.3 % 43.0 - 75.0 % [facility] Platelet mean volume (Bld) [Entitic vol] 10.8 fL 9.5 - 13.5 fL [facility] TBH EO # 0.1 [facility] PLT 223 [facility] RBC 3.91 Low [facility] WBC 5.1 [facility] ALL BASIC METABOLIC PANELon 01-05-2025 Anion gap [Moles/Vol] 12.2 mmol/L [facility] Calcium [Mass/Vol] 8.9 mg/dL 8.5 - 10. 1 mg/dL [facility] Chloride [Moles/Vol] 105 mmol/L 98 - 10 7 mmol/L [facility] CO2 [Moles/Vol] 27 mmol/L 21.0 - 32.0 mmol/L [facility] Creatinine [Mass/Vol] 1.01 mg/dL 0.55 - 1.02 mg/dL [facility] GFR/1.73 sq M.predicted CKD-EPI (S/P/Bld) [Vol rate/Area] >60 >=60 mL/min/1.7 3m 2 [facility] Glucose [Mass/Vol] 143 mg/dL High 74 - 106 mg/dL [facility] Interpretation and review of laboratory results Abnormal [facility] Potassium [Moles/Vol] 4.2 mmol/L 3.5 - 5.1 mmol/L [facility] Sodium [Moles/Vol] 140 mmol/L 136 - 145 mmol/L [facility] TBH EGFR-NON AF GABONESE 54 Low >=60 mL/min/1.7 3m 2 [facility] Urea nitrogen [Mass/Vol] 27 mg/dL High 7.0 - 18.0 mg/dL [facility] Urea nitrogen/Creatinine [Mass ratio] 26.7 mg/mg [facility] No Panel Informationon 01-04 Bedside INR (LAB) 2.7 [facility] MM diagnostic mammo BI w/CAD on 12-07-2024 MM diagnostic mammo BI w/CAD [facility] [address] [place] [address] Mammography Report Signed Patient: Nicol Frances MR#: [id number] 94 : 1950 Acct:[id number] Age/Sex: 74 / F Adm Date: 12/07/24 Loc: [place] Room: Type: [facility] Attending Dr: Radha Verduzco DO Ordering Provider: Radha Verduzco DO Date of Service: 12/07/24 Procedure(s): MM diagnostic mammo BI w/CAD Accession Number(s): ([id number]) MM/MM diagnostic mammo BI w/CAD: Yrly mamms [...] Impression dictated by: Noe De Leon Jr., Ronald.OOmari12/07/2024 9:30 AM Dictation Location: [facility] Dictated By: Noe De Leon Jr, DO 12/07/2422 Signed By: 12/07/24 0930 Normal [facility] Mammography reportOrdered By : Noe De Leon on 12-07-2024 Diagnostic imaging study [facility] [address] [place] [address] Mammography Report Signed Patient: Nicol Frances MR#: [id number] : 1950 Acct:[id number] Age/Sex: 74 / F Adm Date: 5 Loc: [place] Room: Type: [facility] Attending Dr: Radha Verduzco DO Ordering Provider: Radha Verduzco DO Date of Service: 12/07/24 Procedure(s): MM diagnostic mammo BI w/CAD Accession Number(s): ([id number]) MM/MM diagnostic mammo BI w/CAD: Yrly mamms [...] Jr, DO 12/07/24 0922 Signed By: 12/07/2430 [facility] No Panel Informationon 11-30 Bedside INR (LAB) 2.[address] [facility] [address] ABDOMEN PELVIS W IV CONTR [...] BY: Maurice Egan, DO Normal Not Available [facility] US LOWER EXTREMITY VENO US DUPLEX LEFTon 11-15-2024 VAS US LOWER EXTREMITY VENOUS DUPLEX LEFT Exam: [...] Panel Informationon 11-02 Bedside INR (LAB) 2.[address] [facility] [address] HEAD WO IV CONTRASTon CT [...] Panel Informationon 10-05 Bedside INR (LAB) 2.5 [facility] No Panel Informationon 09-09 Bedside INR (LAB) 2.3 [facility] No Panel Informationon 08-03 Bedside INR (LAB) 2.0 [facility] No Panel Informationon 07-04 Bedside INR (LAB) 2.2 [facility] Comprehensive metabolic pane jimbo 06-18-2024 Albumin [Mass/Vol] 4.1 g/dL 3.8 - 4.8 g/dL [facility]P [Catalytic activity/Vol] 53 U/L [facility] ALT [Catalytic activity/Vol] 12 U/L [facility] AST [Catalytic activity/Vol] 16 U/L [facility] Bilirubin [Mass/Vol] 0.2 mg/dL 0.0 - 1 .2 mg/dL [facility] Calcium [Mass/Vol] 9.6 mg/dL 8.7 - 10. 3 mg/dL [facility] Chloride [Moles/Vol] 104 mmol/L 96 - 10 6 mmol/L [facility] CO2 [Moles/Vol] 22 mmol/L 20 - 29 mmol/L [facility] Creatinine [Mass/Vol] 0.93 mg/dL 0.57 - 1.00 mg/dL [facility] GFR/1.73 sq M.predicted among non-blacks MDRD (S/P/Bld) [Vol rate/Area] 65 mL/min/{1.73_m2} 59 - PINF mL/min/1.7 3 [facility] Globulin (S) [Mass/Vol] 2.7 g/dL 1.5 - 4.5 g/dL [facility] Glucose [Mass/Vol] 126 mg/dL High 70 - 99 mg/dL [facility] Potassium [Moles/Vol] 4.8 mmol/L 3.5 - 5.2 mmol/L [facility] Protein [Mass/Vol] 6.8 g/dL 6.0 - 8.5 g/dL [facility] Sodium [Moles/Vol] 139 mmol/L 134 - 144 mmol/L [facility] Urea nitrogen [Mass/Vol] 18 mg/dL 8 - 27 mg/dL [facility] Urea nitrogen/Creatinine [Mass ratio] 19 mg/mg 12 - 28 [facility] Hemoglobin a1c with eagon Average glucose Estimated from glycated hemoglobin (Bld) [Mass/Vol] 163 mg/dL [facility] HbA1c (Bld) [Mass fraction] 7.3 % High 4.8 - 5.6 % [facility] Comment on above: Prediabetes: 5.7 - 6 .4 Diabetes: >6.4 Glycemic control for adults with diabetes: <7.0 Lipid 1996 panelon Cholesterol [Mass/Vol] 140 mg/dL 100 - 199 mg/dL [facility] Cholesterol in HDL [Mass/Vol] 45 mg/dL 39 - PINF mg/dL [facility] Cholesterol in LDL [Mass/Vol] 70 mg/dL 0 - 99 mg/dL [facility] Cholesterol in VLDL [Mass/Vol] 25 mg/dL 5 - 40 mg/dL [facility] Triglyceride [Mass/Vol] 143 mg/dL 0 - 149 mg/dL [facility] No Panel Informationon 06-18 Interpretation and review of laboratory results Abnormal [facility] Performed at: - [address] [id number] Child Welfare Consultant: Juan Dunbar PhD, Phone: [phone] [facility] Specimen Status Reporton Clindamycin Disk diffusion (KB) [place] Comment [facility] Comment on above: Ambig Abbrev CMP14 D efault Ambig Abbrev CMP14 Default A hand-written panel/profile was received from your office. In accordance with the [facility] Ambiguous Test Code Policy dated February 2003, we have completed your order by using the closest currently or formerly recognized AMA panel. We have assigned Comprehensive Metabolic Panel (14), Test Code #898242 to this request. If this is not the testing you wished to receive on this specimen, please contact the [facility] Client [facility]quiry/Technical Services Department to clarify the test order. We appreciate your business. Ambig Abbrev LP Default Ambig Abbrev LP Default A hand-written panel/profile was received from your office. In accordance with the [facility] Ambiguous Test Code Policy dated February 2003, we have completed your order by using the closest currently or formerly recognized AMA panel. We have assigned Lipid Panel, Test Code #490633 to this request. If this is not the testing you wished to receive on this specimen, please contact the [facility] Client Inquiry/Technical Services Department to clarify the test order. We appreciate your business. No Panel Informationon 06-06 Bedside INR (LAB) 2.1 [facility] No Panel Informationon 05-09 Bedside INR (LAB) 2.5 [facility] No Panel Informationon 04-14 Bedside INR (LAB) 2.5 [facility] No Panel Informationon 03-14 Bedside INR (LAB) 2.2 [facility] No Panel Informationon 02-16 Bedside INR (LAB) 2.1 [facility] Activated partial thrombopla stin time (aPTT) [...] coagulation studies. Please contact the laboratory at [phone] for redraw instructions. Automated basophil %Ordered By: Johnny Keen on 02-09-2024 Basophils/100 WBC (Bld) 0.6 % Normal . [facility] Comment on above: Performed By: #### P T, PTT, BMP, CBC #### [facility] [address] [place] [address] Automated basophil countOrde red By: Johnny Keen on 02-09-2024 Basophils (Bld) [#/Vol] 0.0 10*3/uL Normal 0.0-0.2 [facility] Comment on above: Result Comment: PERF ORMED BY: [place] [address] PATHOLOGIST BLADE WORKER GLENYS BARRON M.D. Performed By: #### P T, PTT, BMP, CBC #### [address] Automated blood monocyte cou ntOrdered By: Johnny Keen on 02-09-2024 Monocytes (Bld) [#/Vol] 0.5 10*3/uL Normal 0.0-0.8 [facility] Comment on above: Performed By: #### P T, PTT, BMP, CBC #### [facility] [address] [place] [address] Automated eosinophil %Ordere d By: Johnny Keen on 02-09-2024 Eosinophils/100 WBC (Bld) 0.4 % Normal . [facility] Comment on above: Performed By: #### P T, PTT, BMP, CBC #### [facility] [address] [place] [address] Automated eosinophil countOr dered By: Johnny Keen on 02-09-2024 Eosinophils (Bld) [#/Vol] 0.0 10*3/uL Normal 0.0-0.45 [facility] Comment on above: Performed By: #### P T, PTT, BMP, CBC #### [facility] [address] [place] [address] Automated epithelial cells c ount in urine sediment (number/area)Ordered By: Johnny Keen on 02-09-2024 Epithelial cells Auto (Urine sed) [#/Area] 10-19 [HPF] High 0-2 [facility] Automated monocyte %Ordered By: Johnny Keen on 02-09-2024 Monocytes/100 WBC (Bld) 8.0 % Normal . [facility] Comment on above: Performed By: #### P T, PTT, BMP, CBC #### [facility] [address] [place] [address] Automated neutrophil %Ordere d By: Johnny Keen on 02-09-2024 Neutrophils/100 WBC (Bld) 73.4 % Normal . [facility] Comment on above: Performed By: #### P T, PTT, BMP, CBC #### [facility] [address] [place] [address] Bacteria [Presence] in Urine by AutomatedOrdered By: Johnny Keen on 02-09-2024 Bacteria Auto Ql (U) 1+ [HPF] High None Seen [facility] Basic Metabolic Panelon 01-22 Creatinine Clr Calc Pharmacy 48.37 Normal [facility] Comment on above: Result Comment: PERF ORMED BY: [place] [address] PATHOLOGIST BLADE WORKER GLENYS BARRON M.D. Performed By: #### P T, PTT, BMP, CBC #### [facility] [address] [place] [address] GFR/1.73 sq M.predicted MDRD (S/P/Bld) [Vol rate/Area] 59.856 mL/min/{1.73_m2} Normal [facility] Comment on above: Performed By: #### P T, PTT, BMP, CBC #### [address] Bilirubin Test strip Ql (U)O rdered By: Johnny Keen on 02-09-2024 Bilirubin Ql (U) Negative Negative [facility] CT head/brain wo conon 02-08 CT head/brain wo con [facility] [place] [address] [place] [address] CT Scan Report Signed Patient: Nicol Frances MR#: [id number] 94 : 1950 Acct:[id number] Age/Sex: 73 / F ADM Date: 02/09/24 Loc: ER Room: Type: [facility] ER Attending Dr: Copies to: Johnny Keen DO Ordering Provider: Johnny Keen DO Date of Service: 02/09/24 CT/CT cervical spine wo con: fall ([id number]) CT/CT head/brain wo con: fall CLINICAL DATA: [...] Denise Wallace M.D.02/09/2024 11:26 AM Dictation Location: [place] [address] Transcribed By: [facility] 02/09/24 1126 Dictated By: Denise Wallace MD 02/09/24 1114 Signed By: 02/09/24 1126 Normal [facility] CT lumbar spine wo con CT lumbar spine wo [facility] [facility] [place] [address] [place] [address] CT Scan Report Signed Patient: Nicol Frances MR#: [id number] 94 : 1950 Acct:[id number] Age/Sex: 73 / F ADM Date: 02/09/24 Loc: ER Room: Type: [facility] ER Attending Dr: Copies to: Johnny [...] Denise Wallace M.D.02/09/2024 11:39 AM Dictation Location: [place] [address] Transcribed By: [facility] 02/09/24 1130 Dictated By: Denise Wallace MD 02/09/24 1126 Signed By: 02/09/24 1139 Normal [facility] Calcium [Mass/volume] in Ser um or PlasmaOrdered By: Johnny Keen on 02-09-2024 Calcium [Mass/Vol] 8.8 mg/dL Normal 8.6-10.3 [facility] Comment on above: Performed By: #### P T, PTT, BMP, CBC #### [address] Carbon dioxide, total [Moles /volume] in Serum or PlasmaOrdered By: Johnny Keen on 02-09-2024 CO2 [Moles/Vol] 22.0 mmol/L Normal 21.0-31.0 [facility] Comment on above: Performed By: #### P T, PTT, BMP, CBC #### [address] Casts typing in urine sedime nt by light microscopyOrdered By: Johnny Keen on 02-09-2024 Casts LM Nom (Urine sed) None seen [LPF] None Seen [facility] Chloride [Moles/volume] in S remi or PlasmaOrdered By: Johnny Keen on 02-09-2024 Chloride [Moles/Vol] 103 mmol/L Normal 98-107 [facility] Comment on above: Performed By: #### P T, PTT, BMP, CBC #### [address] Color of Urine by AutoOrdere d By: Johnny Keen on 02-09-2024 Color (U) Light-yellow Normal Yellow [facility] Comment on above: Order Comment: Name Collection Type:: Clean-Voided Midstream Performed By: #### C UU, ADDONUAPLUS #### [address] Complete Blood Count Auto Di ffon 02-09-2024 Mean Corpuscular HGB Conc 34.2 g/dL Normal 32.0-35.0 [facility] Comment on above: Performed By: #### P T, PTT, BMP, CBC #### [place] [address] [place] Monocytes/100 WBC (Bld) 17.76 % Normal 0.00-20.00 [facility] Comment on above: Performed By: #### P T, PTT, BMP, CBC #### [facility] [address] [place] [address] [place] NRBC% 0.0 /100{WBC} Normal 0-0.5 [facility] Comment on above: Performed By: #### P T, PTT, BMP, CBC #### [facility] [address] [place] [address] [place] Creatinine [Mass/volume] in Serum or PlasmaOrdered By: Johnny Keen on 02-09-2024 Creatinine [Mass/Vol] 1.00 mg/dL Normal 0.60-1.20 [facility] Comment on above: Performed By: #### P T, PTT, BMP, CBC #### [facility] [address] [place] [address] [place] Dipstick and Microscopicon 0 02-09-2024 Bacteria,Urine 1+ High None Seen [facility] Comment on above: Order Comment: Name Collection Type:: Clean-Voided Midstream Performed By: #### C UU, ADDONUAPLUS #### [place] [address] [place] Bilirubin,Urine Negative Normal Negative [facility] Comment on above: Order Comment: Name Collection Type:: Clean-Voided Midstream Performed By: #### C UU, ADDONUAPLUS #### [place] [address] [place] Glucose Ql (U) Normal Normal Normal [facility] Comment on above: Order Comment: Name Collection Type:: Clean-Voided Midstream Performed By: #### C UU, ADDONUAPLUS #### [facility] [address] [place] [id number] [place] Hyaline Casts,Urine None Seen Normal 0-8 [facility] Comment on above: Order Comment: Name Collection Type:: Clean-Voided Midstream Performed By: #### C UU, ADDONUAPLUS #### [facility] [address] [place] [address] [place] Nitrite,Urine Negative Normal Negative [facility] Comment on above: Order Comment: Name Collection Type:: Clean-Voided Midstream Performed By: #### C UU, ADDONUAPLUS #### [address] Occult Blood,Urine 1+ High Negative [facility] Comment on above: Order Comment: Name Collection Type:: Clean-Voided Midstream Result Comment: PERF ORMED BY: [place] [address] PATHOLOGIST BLADE WORKER GLENYS BARRON M.D. Performed By: #### C UU, ADDONUAPLUS #### [address] Other Casts,Urine None Seen Normal None Seen [facility] Comment on above: Order Comment: Name Collection Type:: Clean-Voided Midstream Result Comment: PERF ORMED BY: [place] [address] PATHOLOGIST [employer] WORK[employer] GLENYS BARRON M.D. Performed By: #### C UU, ADDONUAPLUS #### [place] [address] [place] Protein,Urine Negative Normal Negative [facility] Comment on above: Order Comment: Name Collection Type:: Clean-Voided Midstream Performed By: #### C UU, ADDONUAPLUS #### [place] [address] [place] RBC,Urine None Seen Normal 0-4 [facility] Comment on above: Order Comment: Name Collection Type:: Clean-Voided Midstream Performed By: #### C UU, ADDONUAPLUS #### [place] [address] [place] Specificy Dexter,Urine 1.014 Normal 1.001-1.03 0 [facility] Comment on above: Order Comment: Name Collection Type:: Clean-Voided Midstream Performed By: #### C UU, ADDONUAPLUS #### [place] [address] [place] Squamous Epithelial Cell,Urine 10-19 High 0-2 [facility] Comment on above: Order Comment: Name Collection Type:: Clean-Voided Midstream Performed By: #### C UU, ADDONUAPLUS #### [facility] [address] [place] [address] Urobilinogen,Urine Normal Normal Normal [facility] Comment on above: Order Comment: Name Collection Type:: Clean-Voided Midstream Performed By: #### C UU, ADDONUAPLUS #### [facility] [address] [place] [address] WBC,Urine 20-49 High 0-4 [facility] Comment on above: Order Comment: Name Collection Type:: Clean-Voided Midstream Performed By: #### C UU, ADDONUAPLUS #### [address] ECG 12 lead ECGon 02-09-2024 ECG 12 lead ECG [facility] [place] [address] [place] [address] Electrocardiograph Report Signed Patient: Nicol Frances MR#: [id number] 94 : 1950 Acct:[id number] Age/Sex: 73 / F ADM Date: 02/09/24 Loc: ER Room: Type: [facility] ER Attending Dr: Ordering Provider: [...] was found Confirmed by Johnny Keen DO ([id number]) on 02/09/2024 3:32:04 PM Referred By: Electronically Signed By:Johnny Keen DO Transcribed By: MUS Signed By Johnny Keen DO 4 1532 Normal [facility] Erythrocyte distribution wid th [Ratio] by Automated countOrdered By: Johnny Keen on 02-09-2024 Erythrocyte distribution width (RBC) [Ratio] 14.1 % Normal 11.9-15.3 [facility] Comment on above: Performed By: #### P T, PTT, BMP, CBC #### [facility] [address] Erythrocytes [#/area] in Uri ne sediment by Automated countOrdered By: Johnny Keen on 02-09-2024 RBC Auto (Urine sed) [#/Area] None seen [HPF] 0-4 [facility] Erythrocytes [#/volume] in B lood by Automated countOrdered By: Johnny Keen on 02-09-2024 RBC (Bld) [#/Vol] 3.73 10*6/uL Normal 3.60-5.00 [facility] Comment on above: Performed By: #### P T, PTT, BMP, CBC #### [facility] [address] [place] [address] [place] Glucose [Mass/volume] in Ser um or PlasmaOrdered By: Johnny Keen on 02-09-2024 Glucose [Mass/Vol] 218 mg/dL High 70-100 [facility] Comment on above: ADA recommended refe rence rangeRandom Glucose Reference Range is dependent on time and content of last meal. Glucose of more than 200 mg/dL in a nonstressed, ambulatory subject supports the diagnosis of Diabetes Mellitus. Result Comment: [place] Glucose Reference Range is dependent on time and content of last meal. Glucose of more than 200 mg/dL in a nonstressed, ambulatory subject supports the diagnosis of Diabetes Mellitus. ADA recommended reference range Performed By: #### P T, PTT, BMP, CBC #### [facility] [address] [place] [address] [place] Glucose [Mass/volume] in Uri ne by Test stripOrdered By: Johnny Keen on 02-09-2024 Glucose Test strip (U) [Mass/Vol] Normal mg/dL Normal [facility] Hematocrit [Volume Fraction] of Blood by Automated countOrdered By: Johnny Keen on 02-09-2024 Hematocrit (Bld) [Volume fraction] 36.4 % Normal 34.0-46.4 [facility] Comment on above: Performed By: #### P T, PTT, BMP, CBC #### [facility] [address] Hemoglobin Test strip Ql (U) Ordered By: Johnny Keen on 02-09-2024 Hemoglobin Ql (U) 1+ High Negative [facility] Hemoglobin [Mass/volume] in BloodOrdered By: Johnny Keen on 02-09-2024 Hemoglobin (Bld) [Mass/Vol] 12.4 g/dL Normal 11.8-15.4 [facility] Comment on above: Performed By: #### P T, PTT, BMP, CBC #### [facility] [address] INR in Platelet poor plasma by Coagulation assayOrdered By: Johnny Keen on 02-09-2024 INR Coag (PPP) [Relative time] 1.8 {INR} Normal [facility] Comment on above: INR Therapeutic Rang e [...] By: #### P T, PTT, BMP, CBC ####[facility] [address] Ketones [Presence] in Urine by Test stripOrdered By: Johnny Keen on 02-09-2024 Ketones Ql (U) Negative Normal Negative [facility] Comment on above: Order Comment: Name Collection Type:: Clean-Voided Midstream Performed By: #### C CALLI HUNTERUAPLUS #### [facility] [address] [place] [address] Laboratory - UrinalysisOrder ed By: Johnny Keen on 02-09-2024 Hyaline casts LM Ql (Urine sed) None seen [LPF] 0-8 [facility] Leukocyte esterase [Presence ] in Urine by Test stripOrdered By: Johnny Keen on 02-09-2024 Leukocyte esterase Test strip Ql (U) 4+ High Negative [facility] Comment on above: Order Comment: Name Collection Type:: Clean-Voided Midstream Performed By: #### C UU, ADDONUAPLUS #### [facility] [address] [place] [address] Leukocytes [#/area] in Urine sediment by Automated countOrdered By: Johnny Keen on 02-09-2024 WBC Auto (Urine sed) [#/Area] 20-49 [HPF] High 0-4 [facility] Leukocytes [#/volume] correc darío for nucleated erythrocytes in Blood by Automated counOrdered By: Johnny Keen on 02-09-2024 WBC corrected for nucl RBC Auto (Bld) [#/Vol] 6.0 10*3/uL 3.8-11.6 [facility] Leukocytes [#/volume] in Blo od by Automated countOrdered By: Johnny Keen on 02-09-2024 WBC (Bld) [#/Vol] 6.0 10*3/uL Normal 3.8-11.6 [facility] Comment on above: Performed By: #### P T, PTT, BMP, CBC #### [facility] [address] [place] [address] Lymphocytes [#/volume] in Bl ood by Automated countOrdered By: Johnny Keen on 02-09-2024 Lymphocytes (Bld) [#/Vol] 1.1 10*3/uL Normal 1.00-4.8 [facility] Comment on above: Performed By: #### P T, PTT, BMP, CBC #### [facility] [address] [place] [address] [place] Lymphocytes/100 leukocytes i n Blood by Automated countOrdered By: Johnny Keen on 02-09-2024 Lymphocytes/100 WBC (Bld) 17.6 % Normal . [facility] Comment on above: Performed By: #### P T, PTT, BMP, CBC #### [facility] [address] [place] [address] MCH [Entitic mass] by Automa darío countOrdered By: Johnny Keen on 02-09-2024 MCH (RBC) [Entitic mass] 33.4 pg Normal 24.7-34.3 [facility] Comment on above: Performed By: #### P T, PTT, BMP, CBC #### [facility] [address] [place] [address] MCHC Auto (RBC) [Mass/Vol]Or dered By: Johnny Keen on 02-09-2024 MCHC (RBC) [Mass/Vol] 34.2 g/dL 32.0-35.0 [facility] MCV [Entitic volume] by Auto mated countOrdered By: Johnny Keen on 02-09-2024 MCV (RBC) [Entitic vol] 97.6 fL Normal 80-100 [facility] Comment on above: Performed By: #### P T, PTT, BMP, CBC #### [facility] [address] [place] [address] Monocyte distribution width [Entitic volume] in Blood by AutomatedOrdered By: Johnny Keen on 02-09-2024 Monocyte distribution width Auto (Bld) [Entitic vol] 17.76 % 0.00-20.00 [facility] Neutrophils [#/volume] in Bl ood by Automated countOrdered By: Johnny Keen on 02-09-2024 Neutrophils (Bld) [#/Vol] 4.4 10*3/uL Normal 1.8-7.7 [facility] Comment on above: Performed By: #### P T, PTT, BMP, CBC #### [facility] [address] [place] [address] Nitrite Test strip Ql (U)Ord ered By: Johnny Keen on 02-09-2024 Nitrite Ql (U) Negative Negative [facility] No Panel InformationOrdered By: Johnny Keen on 02-09-2024 Estimated GFR (CKD-EPI) 59.856 mL/Min [facility] Creatinine Clearance (Chem 48.37 [facility] Nucleated erythrocytes [Pres ence] in Blood by Automated countOrdered By: Johnny Keen on 02-09-2024 Nucleated RBC Auto Ql (Bld) 0.0 /100{WBC} 0-0.5 [facility] Partial Thromboplastin Timeo n 02-09-2024 aPTT Coag (Bld) [Time] 37.1 s High 25.1-36.5 [facility] Comment on above: Result Comment: A he matocrit value greater than 55% may lead to inaccurate results in coagulation testing. Patients having hematocrit values >55% require a special collection tube for coagulation studies. Please contact the laboratory at [phone] for redraw instructions. PERFORMED BY: [place] [address] PATHOLOGIST BLADE WORKER GLENYS BARRON M.D. Performed By: #### P T, PTT, BMP, CBC ####[facility] [address] [place] [address] [place] Platelet mean volume [Entiti c volume] in Blood by Automated countOrdered By: Johnny Keen on 02-09-2024 Platelet mean volume (Bld) [Entitic vol] 8.4 fL Normal 6.3-10.7 [facility] Comment on above: Performed By: #### P T, PTT, BMP, CBC #### [facility] [address] [place] [address] [place] Platelets [#/volume] in Bloo d by Automated countOrdered By: Johnny Keen on 02-09-2024 Platelets (Bld) [#/Vol] 178 10*3/uL Normal 150-450 [facility] Comment on above: Performed By: #### P T, PTT, BMP, CBC #### [facility] [address] [place] [address] [place] Potassium [Moles/volume] in Serum or PlasmaOrdered By: Johnny Keen on 02-09-2024 Potassium [Moles/Vol] 3.9 mmol/L Normal 3.5-5.1 [facility] Comment on above: Performed By: #### P T, PTT, BMP, CBC #### [facility] [address] Protein Test strip (U) [Mass /Vol]Ordered By: Johnny Keen on 02-09-2024 Protein (U) [Mass/Vol] Negative Negative [facility] Prothrombin time (PT)Ordered By: Johnny Keen on 02-09-2024 PT Coag (PPP) [Time] 20.6 s High 9.0-12.9 [facility] Comment on above: A hematocrit value g reater than 55% may lead to inaccurate results in coagulation testing. Patients having hematocrit values >55% require a special collection tube for coagulation studies. Please contact the laboratory at [phone] for redraw instructions. Result Comment: A he matocrit value greater than 55% may lead to inaccurate results in coagulation testing. Patients having hematocrit values >55% require a special collection tube for coagulation studies. Please contact the laboratory at [phone] for redraw instructions. Performed By: #### P T, PTT, BMP, CBC ####[facility] Serum or plasma anion gap de terminationOrdered By: Johnny Keen on 02-09-2024 Anion gap [Moles/Vol] 12.9 mmol/L Normal 6.0-15.0 [facility] Comment on above: Performed By: #### P T, PTT, BMP, CBC #### [facility] [address] [place] [address] Sodium [Moles/volume] in Ser um or PlasmaOrdered By: Johnny Keen on 02-09-2024 Sodium [Moles/Vol] 134 mmol/L Low 136-145 [facility] Comment on above: Performed By: #### P T, PTT, BMP, CBC #### [facility] [address] [place] [id number] [facility] Specific gravity Test strip (U) [Rel density]Ordered By: Johnny Keen on 02-09-2024 Specific gravity (U) [Rel density] 1.014 1.001-1.03 0 [facility] Urea nitrogen [Mass/volume] in Serum or PlasmaOrdered By: Johnny Keen on 02-09-2024 Urea nitrogen [Mass/Vol] 22 mg/dL Normal 7-25 [facility] Comment on above: Performed By: #### P T, PTT, BMP, CBC #### [facility] [address] [place] [address] Urine Cultureon 02-09-2024 Bacteria identified Cx Nom (U) >100,000 colonies/ml mixed bacterial skin contaminants 2 Days PERFORMED BY: [place] [address] PATHOLOGIST BLADE WORKER GLENYS BARRON M.D. Normal [facility] Comment on above: Performed By: #### C UU, ADDONUAPLUS #### [address] Urine appearanceOrdered By: Johnny Keen on 02-09-2024 Appearance (U) Cloudy Critically abnormal Clear [facility] Comment on above: Order Comment: Name Collection Type:: Clean-Voided Midstream Performed By: #### C UU, ADDONUAPLUS #### [address] Urine culture routineOrdered By: Johnny Keen on 02-09-2024 Bacteria identified Cx Nom (U) 2 Days [facility] Urobilinogen Test strip (U) [Mass/Vol]Ordered By: Johnny Keen on 02-09-2024 Urobilinogen (U) [Mass/Vol] Normal mg/dL Normal [facility] pH of Urine by Test stripOrd ered By: Johnny Keen on 02-09-2024 pH (U) 6.5 [pH] Normal 5.0-9.0 [facility] Comment on above: Order Comment: Name Collection Type:: Clean-Voided Midstream Performed By: #### C UU, ADDONUAPLUS #### [facility] [address] [place] [address] No Panel Informationon 01-19 Bedside INR (LAB) 2.5 [facility] No Panel Informationon 01-04 Bedside INR (LAB) 2.1 [facility] Capillary blood glucose flakita urement by glucometer (mass/volume)Ordered By: Sandy Clark on 12-28-2023 Glucose [Mass/Vol] 170 mg/dL Normal [facility] Comment on above: Random Glucose Refer ence Range is dependent on time and content of last meal. Glucose of more than 200 mg/dL in a nonstressed, ambulatory subject supports the diagnosis of Diabetes Mellitus. Result Comment: [place] Glucose Reference Range is dependent on time and content of last meal. Glucose of more than 200 mg/dL in a nonstressed, ambulatory subject supports the diagnosis of Diabetes Mellitus. Performed By: #### G LULS #### Point of Care testing , Glucose Poct Glucometerson 0 12-28-2023 Commemt1 Glu2: Cleaned Meter Normal [facility] Comment on above: Result Comment: PERF ORMED BY: [facility] [address] [place] [address] PATHOLOGIST BLADE WORKER GLENYS BARRON M.D. Performed By: #### G LULS #### Point of Care testing , INR in Platelet poor plasma by Coagulation assayOrdered By: Sandy Clark on 12-28-2023 INR Coag (PPP) [Relative time] 1.0 {INR} Normal [facility] Comment on above: INR Therapeutic Rang e [...] heart valves: 3 - 4.5 PERFORMED BY: [place] [address] PATHOLOGIST BLADE WORKER GLENYS BARRON M.D. Performed By: #### P T #### [place] [id number] [place] 12-28-2023 L Specimen: [id number] Received: 12/28/23 Status: TIERRA Russell Num: [id number] Spec Type: Surgical Subm Dr: Sandy Clark DO Tissues: A Colon Biopsy (RT COLON) B Colon Biopsy (TRANSV BX) C Colon Biopsy (LT COLON BX) Procedures: HE/6, Gross/Micro L4/3 Age/ Patient Sex Location Account Attending Physician Nicol Frances 73/F [id number] Sandy Clark DO SPEC NUM: [id number] RECD: 12/28/23 STATUS: TIERRA RUSSELL NUM: [id number] ROQUE: 12/28/23 DR: Sandy Clark DO ENTERED: 12/28/[address] [facility] [address]: SPEC TYPE: Surgical DEPT: S [...] in C1. Clinical history: Ulcerative colitis Specimen: [id number] Received: 12/28/23 Status: TIERRA Russell Num: [id number] Spec Type: Surgical Subm Dr: Sandy Clark DO Tissues: A Colon Biopsy (RT COLON) B Colon Biopsy (TRANSV BX) C Colon Biopsy (LT COLON BX) Procedures: HE/6, Omar/Rupert L4/3 Patient: Niclo Frances [id number] (Continued) Specimen: [id number] Received: 12/28/23 (Continued) Signed (signature on file) Ac Beaulieu MD 12/29/23 1414 Specimen: [id number] Received: 12/28/23 Status: TIERRA Russell Num: [id number] Spec Type: Surgical Subm Dr: Sandy Clark DO Tissues: A Colon Biopsy (RT COLON) B Colon Biopsy (TRANSV BX) C Colon Biopsy (LT COLON BX) Procedures: HE/6, Gross/Micro L4/3 Patient: Nicol Frances [id number] (Continued) Specimen: [id number] Received: 12/28/23 (Continued) CPT Codes 60009b5 Specimen: [id number] Received: 12/28/23 Status: TIERRA Russell Num: [id number] Spec Type: Surgical Subm Dr: Sandy Clark, Tissues: A Colon Biopsy (RT COLON) B Colon Biopsy (TRANSV BX) C Colon Biopsy (LT COLON BX) Procedures: HE/6, Gross/Micro L4/3 Patient: Nicol Frances [place] [id number] (Continued) Signed (signature on file) Ac Beaulieu MD 12/29/23 1414 Normal [facility] No Panel InformationOrdered By: Sandy Clark on 12-28-2023 Bedside Glucose Comment Glu2: cleaned meter [facility] Prothrombin time (PT)Ordered By: Sandy Clark on 12-28-2023 PT Coag (PPP) [Time] 12.1 s Normal 9.0-12.9 [facility] Comment on above: A hematocrit value g reater than 55% may lead to inaccurate results in coagulation testing. Patients having hematocrit values >55% require a special collection tube for coagulation studies. Please contact the laboratory at [phone] for redraw instructions. Result Comment: A he matocrit value greater than 55% may lead to inaccurate results in coagulation testing. Patients having hematocrit values >55% require a special collection tube for coagulation studies. Please contact the laboratory at [phone] for redraw instructions. Performed By: #### P T #### [address] No Panel Informationon 12-13 Bedside INR (LAB) 2.0 [facility] No Panel Informationon 11-08 Bedside INR (LAB) 2.2 [facility] Prothrombin Time INRon 10-05 INR Coag (PPP) [Relative time] 2.6 {INR} [employer] Other Prothrombin Time [facility] [employer] Other Prothrombin Time INRon 09-07 INR Coag (PPP) [Relative time] 2.6 {INR} [employer] Other Prothrombin Time INR [facility] [employer] Other Prothrombin Time INRon 08-11 INR Coag (PPP) [Relative time] 2.4 {INR} [employer] Other Prothrombin Time INR [facility] [employer] Other Prothrombin Time INRon 07-14 INR Coag (PPP) [Relative time] 2.4 {INR} [employer] Other Prothrombin Time INR [facility] [employer] Other Prothrombin Time INRon 06-15 INR Coag (PPP) [Relative time] 2.8 {INR} [employer] Other Prothrombin Time INR [facility] [employer] Other Prothrombin Time INRon 04-30 INR Coag (PPP) [Relative time] 2.6 {INR} [employer] Other Prothrombin Time INR [facility] [employer] Other Prothrombin Time INRon 04-08 INR Coag (PPP) [Relative time] 3.1 {INR} [employer] Other Prothrombin Time INR [place] [employer] Other Prothrombin Time INRon 03-23 INR Coag (PPP) [Relative time] 2.3 {INR} [place] [employer] Other Prothrombin Time INR [facility] [employer] Other Prothrombin Time INRon 03-11 INR Coag (PPP) [Relative time] 3.2 {INR} [place] [employer] Other Prothrombin Time INR [facility] [employer] Other Prothrombin Time INRon 02-23 INR Coag (PPP) [Relative time] 3.4 {INR} [employer] Other Prothrombin Time INR [facility] [employer] Other Laboratory - CoagulationOrde red By: Gabriel Castaneda on 12-17-2022 PT Coag (PPP) [Time] 21.0 s 9.0-12.9 [facility] Platelet poor plasma interna tional normalized ratio (INR) by coagulation assay (relatOrdered By: Gabriel Castaneda on 12-17-2022 INR Coag (PPP) [Relative time] 1.8 {INR} [facility] Comment on above: INR Therapeutic Rang e [...] Castaneda on 12-15-2022 Glucose [Mass/Vol] 223 mg/dL [facility] Comment on above: Random Glucose Refer ence Range is dependent on time and content of last meal. Glucose of more than 200 mg/dL in a nonstressed, ambulatory subject supports the diagnosis of Diabetes Mellitus. Laboratory - CoagulationOrde red By: Rosalina Shelton on 12-15-2022 PT Coag (PPP) [Time] 15.7 s 9.0-12.9 [facility] No Panel InformationOrdered By: Gabriel Castaneda on 12-15-2022 Bedside Glucose Comment Glu2: cleaned meter [facility] Platelet poor plasma interna tional normalized ratio (INR) by coagulation assay (relatOrdered By: Rosalina Shelton on 12-15-2022 INR Coag (PPP) [Relative time] 1.4 {INR} [facility] Comment on above: INR Therapeutic Rang e [...] 12-14-2022 Basophils (Bld) [#/Vol] 0.0 10*3/uL 0.0-0.2 [facility] Basophils/100 WBC Auto (Bld) Ordered By: Rosalina Shelton on 12-14-2022 Basophils/100 WBC (Bld) 1.0 % . [facility] Calcium [Mass/volume] in Ser um or PlasmaOrdered By: Rosalina Shelton on 12-14-2022 Calcium [Mass/Vol] 8.1 mg/dL 8.6-10.3 [facility] Carbon dioxide, total [Moles /volume] in Serum or PlasmaOrdered By: Rosalina Shelton on 12-14-2022 CO2 [Moles/Vol] 24.8 mmol/L 21.0-31.0 [facility] Chloride [Moles/volume] in S remi or PlasmaOrdered By: Rosalina Shelton on 12-14-2022 Chloride [Moles/Vol] 105 mmol/L 98-107 [facility] Creatinine [Mass/volume] in Serum or PlasmaOrdered By: Rosalina Shelton on 12-14-2022 Creatinine [Mass/Vol] 0.98 mg/dL 0.60-1.20 [facility] Eosinophils Auto (Bld) [#/Vo l]Ordered By: Rosalina Shelton on 12-14-2022 Eosinophils (Bld) [#/Vol] 0.1 10*3/uL 0.0-0.45 [facility] Eosinophils/100 WBC Auto (Bl d)Ordered By: Rosalina Shelton on 12-14-2022 Eosinophils/100 WBC (Bld) 2.0 % . [facility] Erythrocyte distribution wid th Auto (RBC) [Ratio]Ordered By: Rosalina Shelton on 12-14-2022 Erythrocyte distribution width (RBC) [Ratio] 14.3 % 11.9-15.3 [facility] Glucose [Mass/volume] in Ser um or PlasmaOrdered By: Rosalina Shelton on 12-14-2022 Glucose [Mass/Vol] 149 mg/dL 70-100 [facility] Comment on above: ADA recommended refe rence rangeRandom Glucose Reference Range is dependent on time and content of last meal. Glucose of more than 200 mg/dL in a nonstressed, ambulatory subject supports the diagnosis of Diabetes Mellitus. Hematocrit Auto (Bld) [Volum e fraction]Ordered By: Rosalina Shelton on 12-14-2022 Hematocrit (Bld) [Volume fraction] 36.1 % 34.0-46.4 [facility] Hemoglobin [Mass/volume] in BloodOrdered By: Rosalina Shelton on 12-14-2022 Hemoglobin (Bld) [Mass/Vol] 12.1 g/dL 11.8-15.4 [facility] Leukocytes [#/volume] correc darío for nucleated erythrocytes in Blood by Automated counOrdered By: Rosalina Shelton on 12-14-2022 WBC corrected for nucl RBC Auto (Bld) [#/Vol] 4.4 10*3/uL 3.8-11.6 [facility] Lymphocytes Auto (Bld) [#/Vo l]Ordered By: Rosalina Shelton on 12-14-2022 Lymphocytes (Bld) [#/Vol] 1.3 10*3/uL 1.00-4.8 [facility] Lymphocytes/100 WBC Auto (Bl d)Ordered By: Rosalina Shelton on 12-14-2022 Lymphocytes/100 WBC (Bld) 28.6 % . [facility] MCH Auto (RBC) [Entitic mass ]Ordered By: Rosalina Shelton on 12-14-2022 MCH (RBC) [Entitic mass] 32.2 pg 24.7-34.3 [facility] MCHC Auto (RBC) [Mass/Vol]Or dered By: Rosalina Shelton on 12-14-2022 MCHC (RBC) [Mass/Vol] 33.4 g/dL 32.0-35.0 [facility] MCV Auto (RBC) [Entitic vol] Ordered By: Rosalina Shelton on 12-14-2022 MCV (RBC) [Entitic vol] 96.3 fL 80-100 [facility] Monocytes Auto (Bld) [#/Vol] Ordered By: Rosalina Shelton on 12-14-2022 Monocytes (Bld) [#/Vol] 0.5 10*3/uL 0.0-0.8 [facility] Monocytes/100 WBC Auto (Bld) Ordered By: Rosalina Shelton on 12-14-2022 Monocytes/100 WBC (Bld) 11.6 % . [facility] Neutrophils Auto (Bld) [#/Vo l]Ordered By: Rosalina Shelton on 12-14-2022 Neutrophils (Bld) [#/Vol] 2.5 10*3/uL 1.8-7.7 [facility] Neutrophils/100 WBC Auto (Bl d)Ordered By: Rosalina Shelton on 12-14-2022 Neutrophils/100 WBC (Bld) 56.8 % . [facility] No Panel InformationOrdered By: Rosalina Shelton on 12-14-2022 Estimated GFR (CKD-EPI) > 60.0 mL/Min [facility] Creatinine Clearance (Chem 54.33 [facility] Nucleated erythrocytes [Pres ence] in Blood by Automated countOrdered By: Rosalina Shelton on 12-14-2022 Nucleated RBC Auto Ql (Bld) 0.1 /100{WBC} 0-0.5 [facility] Platelet mean volume Auto (B ld) [Entitic vol]Ordered By: Rosalina Shelton on 12-14-2022 Platelet mean volume (Bld) [Entitic vol] 8.3 fL 6.3-10.7 [facility] Platelets Auto (Bld) [#/Vol] Ordered By: Rosalina Shelton on 12-14-2022 Platelets (Bld) [#/Vol] 197 10*3/uL 150-450 [facility] Potassium [Moles/volume] in Serum or PlasmaOrdered By: Rosalina Shelton on 12-14-2022 Potassium [Moles/Vol] 4.1 mmol/L 3.5-5.1 [facility] RBC Auto (Bld) [#/Vol]Ordere d By: Rosalina Shelton on 12-14-2022 RBC (Bld) [#/Vol] 3.75 10*6/uL 3.60-5.00 [facility] Serum or plasma anion gap de terminationOrdered By: Rosalina Shelton on 12-14-2022 Anion gap [Moles/Vol] TNP [facility] Comment on above: Test not performed Sodium [Moles/volume] in Ser um or PlasmaOrdered By: Rosalina Shelton on 12-14-2022 Sodium [Moles/Vol] 135 mmol/L 136-145 [facility] Comment on above: Hemolysis is present at a level that could interfere with the result. Troponin I.cardiac [Mass/vol ume] in Serum or Plasma by Detection limit <= 0.01 ng/Ordered By: Rosalina Shelton on 12-14-2022 Troponin I.cardiac DL <= 0.01 ng/mL [Mass/Vol] 6.3 pg/mL 0.0-15.0 [facility] Urea nitrogen [Mass/volume] in Serum or PlasmaOrdered By: Rosalina Shelton on 12-14-2022 Urea nitrogen [Mass/Vol] 13 mg/dL 7-25 [facility] WBC Auto (Bld) [#/Vol]Ordere d By: Rosalina Shelton on 12-14-2022 WBC (Bld) [#/Vol] 4.4 10*3/uL 3.8-11.6 [facility] Activated partial thrombopla stin time (aPTT) in platelet poor plasma by coagulation aOrdered By: Celio Lobo on 12-13-2022 aPTT Coag (PPP) [Time] 38.0 s 25.1-36.5 [facility] Alanine aminotransferase [En zymatic activity/volume] in Serum or PlasmaOrdered By: Celio Lobo on 12-13-2022 ALT [Catalytic activity/Vol] 14 U/L 7-52 [facility] Albumin [Mass/volume] in Ser um or Plasma by Bromocresol green (BCG) dye binding methoOrdered By: Celio Lobo on 12-13-2022 Albumin BCG dye [Mass/Vol] 3.8 g/dL 3.5-5.7 [facility] Alkaline phosphatase [Enzyma tic activity/volume] in Serum or PlasmaOrdered By: Celio Lobo on 12-13-2022 ALP [Catalytic activity/Vol] 51 U/L 34-104 [facility] Aspartate aminotransferase [ Enzymatic activity/volume] in Serum or PlasmaOrdered By: Celio Lobo 12-13-2022 AST [Catalytic activity/Vol] 18 U/L 13-39 [facility] Basophils Auto (Bld) [#/Vol] Ordered By: Celio Lobo 12-13-2022 Basophils (Bld) [#/Vol] 0.0 10*3/uL 0.0-0.2 [facility] Basophils/100 WBC Auto (Bld) Ordered By: Celio Lobo on 12-13-2022 Basophils/100 WBC (Bld) 1.0 % . [facility] Bilirubin Test strip Ql (U)O rdered By: Celio Lobo on 12-13-2022 Bilirubin Ql (U) Negative Negative [facility] Bilirubin.total [Mass/volume ] in Serum or PlasmaOrdered By: Celio Lobo 12-13-2022 Bilirubin [Mass/Vol] 0.3 mg/dL 0.3-1.0 [facility] Calcium [Mass/volume] in Ser um or PlasmaOrdered By: Celio Lobo 12-13-2022 Calcium [Mass/Vol] 8.5 mg/dL 8.6-10.3 [facility] Carbon dioxide, total [Moles /volume] in Serum or PlasmaOrdered By: Celio Lobo on 12-13-2022 CO2 [Moles/Vol] 23.2 mmol/L 21.0-31.0 [facility] Chloride [Moles/volume] in S remi or PlasmaOrdered By: Celio Lobo on 12-13-2022 Chloride [Moles/Vol] 106 mmol/L 98-107 [facility] Color Auto (U)Ordered By: Perez Lobo on 12-13-2022 Color (U) Yellow Yellow [facility] Creatinine [Mass/volume] in Serum or PlasmaOrdered By: Celio Lobo on 12-13-2022 Creatinine [Mass/Vol] 1.06 mg/dL 0.60-1.20 [facility] Eosinophils Auto (Bld) [#/Vo l]Ordered By: Celio Lobo on 12-13-2022 Eosinophils (Bld) [#/Vol] 0.1 10*3/uL 0.0-0.45 [facility] Eosinophils/100 WBC Auto (Bl d)Ordered By: Celio Loob on 12-13-2022 Eosinophils/100 WBC (Bld) 1.2 % . [facility] Erythrocyte distribution wid th Auto (RBC) [Ratio]Ordered By: Celio Lobo on 12-13-2022 Erythrocyte distribution width (RBC) [Ratio] 14.6 % 11.9-15.3 [facility] Globulin Calc (S) [Mass/Vol] Ordered By: Celio Lobo on 12-13-2022 Globulin (S) [Mass/Vol] 2.8 g/dL [facility] Glucose Glucometer (BldC) [M ass/Vol]Ordered By: Celio Lobo on 12-13-2022 Glucose [Mass/Vol] 96 mg/dL [facility] Comment on above: Random Glucose Refer ence Range is dependent on time and content of last meal. Glucose of more than 200 mg/dL in a nonstressed, ambulatory subject supports the diagnosis of Diabetes Mellitus. Glucose [Mass/volume] in Ser um or PlasmaOrdered By: Celio Lobo on 12-13-2022 Glucose [Mass/Vol] 152 mg/dL 70-100 [facility] Comment on above: ADA recommended refe rence rangeRandom Glucose Reference Range is dependent on time and content of last meal. Glucose of more than 200 mg/dL in a nonstressed, ambulatory subject supports the diagnosis of Diabetes Mellitus. Hematocrit Auto (Bld) [Volum e fraction]Ordered By: Celio Lobo on 12-13-2022 Hematocrit (Bld) [Volume fraction] 37.8 % 34.0-46.4 [facility] Hemoglobin [Mass/volume] in BloodOrdered By: Celio Lobo on 12-13-2022 Hemoglobin (Bld) [Mass/Vol] 12.5 g/dL 11.8-15.4 [facility] Ketones Auto test strip (U) [Mass/Vol]Ordered By: Celio Lobo on 12-13-2022 Ketones (U) [Mass/Vol] Negative Negative [facility] Laboratory - CoagulationOrde red By: Celio Lobo on 12-13-2022 PT Coag (PPP) [Time] 23.1 s 9.0-12.9 [facility] Leukocytes [#/volume] correc darío for nucleated erythrocytes in Blood by Automated counOrdered By: Celio Lobo on 12-13-2022 WBC corrected for nucl RBC Auto (Bld) [#/Vol] 4.9 10*3/uL 3.8-11.6 [facility] Lymphocytes Auto (Bld) [#/Vo l]Ordered By: Celio Lobo on 12-13-2022 Lymphocytes (Bld) [#/Vol] 1.5 10*3/uL 1.00-4.8 [facility] Lymphocytes/100 WBC Auto (Bl d)Ordered By: Celio Lobo on 12-13-2022 Lymphocytes/100 WBC (Bld) 29.8 % . [facility] MCH Auto (RBC) [Entitic mass ]Ordered By: Celio Lobo on 12-13-2022 MCH (RBC) [Entitic mass] 31.8 pg 24.7-34.3 [facility] MCHC Auto (RBC) [Mass/Vol]Or dered By: Celio Lobo on 12-13-2022 MCHC (RBC) [Mass/Vol] 33.1 g/dL 32.0-35.0 [facility] MCV Auto (RBC) [Entitic vol] Ordered By: Celio Lobo on 12-13-2022 MCV (RBC) [Entitic vol] 96.0 fL 80-100 [facility] Magnesium [Mass/volume] in S remi or PlasmaOrdered By: Rosalina Shelton on 12-13-2022 Magnesium [Mass/Vol] 1.9 mg/dL 1.9-2.7 [facility] Magnesium [Mass/volume] in S remi or PlasmaOrdered By: Celio Lobo on 12-13-2022 Magnesium [Mass/Vol] 2.0 mg/dL 1.9-2.7 [facility] Monocyte distribution width [Entitic volume] in Blood by AutomatedOrdered By: Celio Lobo on 12-13-2022 Monocyte distribution width Auto (Bld) [Entitic vol] 18.43 % 0.00-20.00 [facility] Monocytes Auto (Bld) [#/Vol] Ordered By: Celio Lobo on 12-13-2022 Monocytes (Bld) [#/Vol] 0.5 10*3/uL 0.0-0.8 [facility] Monocytes/100 WBC Auto (Bld) Ordered By: Celio Lobo on 12-13-2022 Monocytes/100 WBC (Bld) 9.9 % . [facility] Natriuretic peptide B [Mass/ Vol]Ordered By: Celio Lobo on 12-13-2022 Natriuretic peptide B (Bld) [Mass/Vol] 105.0 pg/mL 5-100 [facility] Neutrophils Auto (Bld) [#/Vo l]Ordered By: Celio Lobo on 12-13-2022 Neutrophils (Bld) [#/Vol] 2.8 10*3/uL 1.8-7.7 [facility] Neutrophils/100 WBC Auto (Bl d)Ordered By: Celio Lobo on 12-13-2022 Neutrophils/100 WBC (Bld) 58.1 % . [facility] Nitrite Test strip Ql (U)Ord ered By: Celio Lobo on 12-13-2022 Nitrite Ql (U) Negative Negative [facility] No Panel InformationOrdered By: Celio Lobo on 12-13-2022 Bedside Glucose #2 Comment Cleaned meter [facility] Bedside Glucose Comment See comment [facility] Comment on above: Glu2: WILL NOTIFY DR /RN Estimated GFR (CKD-EPI) 56.163 mL/Min [facility] Creatinine Clearance (Chem 51.30 [facility] No Panel InformationOrdered By: Rosalina Shelton on 12-13-2022 D-Dimer Quantitative (PE/DVT) < 200 ng/mL 0-243 [facility] Comment on above: The reference range for [...] RBC Auto Ql (Bld) 0.0 /100{WBC} 0-0.5 [facility] Platelet mean volume Auto (B ld) [Entitic vol]Ordered By: Celio Lobo on 12-13-2022 Platelet mean volume (Bld) [Entitic vol] 8.4 fL 6.3-10.7 [facility] Platelet poor plasma interna tional normalized ratio (INR) by coagulation assay (relatOrdered By: Celio Lobo on 12-13-2022 INR Coag (PPP) [Relative time] 2.0 {INR} [facility] Comment on above: INR Therapeutic Rang e [...] 12-13-2022 Platelets (Bld) [#/Vol] 221 10*3/uL 150-450 [facility] Potassium [Moles/volume] in Serum or PlasmaOrdered By: Celio Lobo on 12-13-2022 Potassium [Moles/Vol] 4.0 mmol/L 3.5-5.1 [facility] Protein Auto test strip (U) [Mass/Vol]Ordered By: Celio Lobo on 12-13-2022 Protein (U) [Mass/Vol] Negative Negative [facility] Protein [Mass/volume] in Ser um or PlasmaOrdered By: Celio Lobo on 12-13-2022 Protein [Mass/Vol] 6.6 g/dL 6.4-8.9 [facility] RBC Auto (Bld) [#/Vol]Ordere d By: Celio Lobo on 12-13-2022 RBC (Bld) [#/Vol] 3.94 10*6/uL 3.60-5.00 [facility] Serum or plasma albumin/glob ulin mass ratioOrdered By: Celio Lobo on 12-13-2022 Albumin/Globulin [Mass ratio] 1.4 {ratio} [facility] Serum or plasma anion gap de terminationOrdered By: Celio Lobo on 12-13-2022 Anion gap [Moles/Vol] 11.8 mmol/L 6.0-15.0 [facility] Sodium [Moles/volume] in Ser um or PlasmaOrdered By: Celio Lobo on 12-13-2022 Sodium [Moles/Vol] 137 mmol/L 136-145 [facility] Specific gravity Auto test s trip (U) [Rel density]Ordered By: Celio Lobo on 12-13-2022 Specific gravity (U) [Rel density] 1.006 1.001-1.03 0 [facility] Thyrotropin [Units/volume] i n Serum or PlasmaOrdered By: Rosalina Shelton on 12-13-2022 TSH Qn 4.39 m[IU]/L 0.45-5.33 [facility] Troponin I.cardiac [Mass/vol ume] in Serum or Plasma by Detection limit <= 0.01 ng/Ordered By: Celio Lobo on 12-13-2022 Troponin I.cardiac DL <= 0.01 ng/mL [Mass/Vol] 6.4 pg/mL 0.0-15.0 [facility] Urea nitrogen [Mass/volume] in Serum or PlasmaOrdered By: Celio Lobo on 12-13-2022 Urea nitrogen [Mass/Vol] 15 mg/dL 7-25 [facility] Urine clarity by refractomet ry automatedOrdered By: Celio Lobo on 12-13-2022 Clarity Refractometry automated (U) Clear Clear [facility] Urine glucose measurement by automated test strip (mass/volume)Ordered By: Cleio Lobo on 12-13-2022 Glucose Auto test strip (U) [Mass/Vol] Normal mg/dL Normal [facility] Urine hemoglobin detection b y automated test stripOrdered By: Celio Lobo on 12-13-2022 Hemoglobin Auto test strip Ql (U) Negative Negative [facility] Urine leukocyte esterase det ection by automated test stripOrdered By: Celio Lobo on 12-13-2022 Leukocyte esterase Auto test strip Ql (U) Negative Negative [facility] Urobilinogen Auto test strip (U) [Mass/Vol]Ordered By: Celio Lobo on 12-13-2022 Urobilinogen (U) [Mass/Vol] Normal mg/dL Normal [facility] WBC Auto (Bld) [#/Vol]Ordere d By: Celio Lobo on 12-13-2022 WBC (Bld) [#/Vol] 4.9 10*3/uL 3.8-11.6 [facility] pH Auto test strip (U)Ordere d By: Celio Lobo on 12-13-2022 pH (U) 8.0 [pH] 5.0-9.0 [facility] Prothrombin Time INRon 12-10 INR Coag (PPP) [Relative time] 2.5 {INR} [employer] Other Prothrombin Time INR [place] Other Prothrombin Time INRon 11-12 INR Coag (PPP) [Relative time] 2.7 {INR} [employer] Other Prothrombin Time INR [place] Other Prothrombin Time INRon 10-15 INR Coag (PPP) [Relative time] 2.7 {INR} [employer] Other Prothrombin Time INR [place] Other Automated erythrocytes count in urine sediment (number/area)Ordered By: Edmond Branham on 09-23-2022 RBC Auto (Urine sed) [#/Area] 1-2 [HPF] 0-4 [facility] Automated leukocytes count i n urine sediment (number/area)Ordered By: Edmond Branham on 09-23-2022 WBC Auto (Urine sed) [#/Area] 5-9 [HPF] 0-4 [facility] Basophils Auto (Bld) [#/Vol] Ordered By: Edmond Branham on 09-23-2022 Basophils (Bld) [#/Vol] 0.1 10*3/uL 0.0-0.2 [facility] Basophils/100 WBC Auto (Bld) Ordered By: Edmond Branham on 09-23-2022 Basophils/100 WBC (Bld) 1.1 % . [facility] Bilirubin Test strip Ql (U)O rdered By: Edmond Branham on 09-23-2022 Bilirubin Ql (U) Negative Negative [facility] Body fluid albumin measureme nt (mass/volume)Ordered By: Edmond Branham on 09-23-2022 Albumin (Body fld) [Mass/Vol] 3.7 g/dL 3.2-5.5 [facility] Color Auto (U)Ordered By: Kailey Branham on 09-23-2022 Color (U) Dark yellow Yellow [facility] Creatinine and Glomerular fi ltration rate.predicted panel (S/P/Bld)Ordered By: Edmond Branham on 09-23-2022 Creatinine [Mass/Vol] 1.15 mg/dL 0.44-1.03 [facility] Eosinophils Auto (Bld) [#/Vo l]Ordered By: Edmond Branham on 09-23-2022 Eosinophils (Bld) [#/Vol] 0.1 10*3/uL 0.0-0.45 [facility] Eosinophils/100 WBC Auto (Bl d)Ordered By: Edmond Branham on 09-23-2022 Eosinophils/100 WBC (Bld) 1.7 % . [facility] Erythrocyte distribution wid th Auto (RBC) [Ratio]Ordered By: Edmond Branham on 09-23-2022 Erythrocyte distribution width (RBC) [Ratio] 15.0 % 11.9-15.3 [facility] Estimated glomerular filtrat ion rate (GFR) non- AmericanOrdered By: Edmond Branham on 09-23-2022 GFR/1.73 sq M.predicted among non-blacks MDRD (S/P/Bld) [Vol rate/Area] 47 mL/Min [facility] Globulin Calc (S) [Mass/Vol] Ordered By: Edmond Branham on 09-23-2022 Globulin (S) [Mass/Vol] 2.9 g/dL [facility] Glucose Glucometer (BldC) [M ass/Vol]Ordered By: Edmond Branham on 09-23-2022 Glucose [Mass/Vol] 108 mg/dL [facility] Comment on above: Random Glucose Refer ence Range is dependent on time and content of last meal. Glucose of more than 200 mg/dL in a nonstressed, ambulatory subject supports the diagnosis of Diabetes Mellitus. Hematocrit Auto (Bld) [Volum e fraction]Ordered By: Edmond Branham on 09-23-2022 Hematocrit (Bld) [Volume fraction] 39.1 % 34.0-46.4 [facility] Hemoglobin [Mass/volume] in BloodOrdered By: Edmond Branham on 09-23-2022 Hemoglobin (Bld) [Mass/Vol] 13.3 g/dL 11.8-15.4 [facility] Ketones Auto test strip (U) [Mass/Vol]Ordered By: Edmond Branham on 09-23-2022 Ketones (U) [Mass/Vol] Negative [facility] - UrinalysisOrder ed By: Edmond Branham on 09-23-2022 Hyaline casts LM Ql (Urine sed) 0-8 [LPF] 0-8 [facility] Leukocytes [#/volume] correc darío for nucleated erythrocytes in Blood by Automated counOrdered By: Edmond Branham on 09-23-2022 WBC corrected for nucl RBC Auto (Bld) [#/Vol] 5.2 10*3/uL 3.8-11.6 [facility] Lymphocytes Auto (Bld) [#/Vo l]Ordered By: Edmond Branham on 09-23-2022 Lymphocytes (Bld) [#/Vol] 1.6 10*3/uL 1.00-4.8 [facility] Lymphocytes/100 WBC Auto (Bl d)Ordered By: Edmond Branham on 09-23-2022 Lymphocytes/100 WBC (Bld) 31.1 % . [facility] MCH Auto (RBC) [Entitic mass ]Ordered By: Edmond Branham on 09-23-2022 MCH (RBC) [Entitic mass] 32.3 pg 24.7-34.3 [facility] MCHC Auto (RBC) [Mass/Vol]Or dered By: Edmond Branham on 09-23-2022 MCHC (RBC) [Mass/Vol] 34.0 g/dL 32.0-35.0 [facility] MCV Auto (RBC) [Entitic vol] Ordered By: Edmond Branham on 09-23-2022 MCV (RBC) [Entitic vol] 95.2 fL 80-100 [facility] Monocyte distribution width [Entitic volume] in Blood by AutomatedOrdered By: Edmond Branham on 09-23-2022 Monocyte distribution width Auto (Bld) [Entitic vol] 19.36 % 0.00-20.00 [facility] Monocytes Auto (Bld) [#/Vol] Ordered By: Edmond Branham on 09-23-2022 Monocytes (Bld) [#/Vol] 0.5 10*3/uL 0.0-0.8 [facility] Monocytes/100 WBC Auto (Bld) Ordered By: Edmond Branham on 09-23-2022 Monocytes/100 WBC (Bld) 10.2 % . [facility] Neutrophils Auto (Bld) [#/Vo l]Ordered By: Edmond Branham on 09-23-2022 Neutrophils (Bld) [#/Vol] 2.9 10*3/uL 1.8-7.7 [facility] Neutrophils/100 WBC Auto (Bl d)Ordered By: Edmond Branham on 09-23-2022 Neutrophils/100 WBC (Bld) 55.9 % . [facility] Nitrite Test strip Ql (U)Ord ered By: Edmond Branham on 09-23-2022 Nitrite Ql (U) Negative Negative [facility] No Panel InformationOrdered By: Edmond Branham on 09-23-2022 Estimated GFR () 56 mL/Min [facility] Comment on above: GFR estimated refere nce range: According to KDOQI guidelines, <60 ml/min/1.73m2 is sufficient to diagnose a patient with chronic kidney disease. Pharmacy Creatinine Clearance (Chem 46.55 [facility] Nucleated erythrocytes [Pres ence] in Blood by Automated countOrdered By: Edmond Branham on 09-23-2022 Nucleated RBC Auto Ql (Bld) 0.1 /100{WBC} 0-0.5 [facility] Platelet mean volume Auto (B ld) [Entitic vol]Ordered By: Edmond Branham on 09-23-2022 Platelet mean volume (Bld) [Entitic vol] 8.1 fL 6.3-10.7 [facility] Platelets Auto (Bld) [#/Vol] Ordered By: Edmond Branham on 09-23-2022 Platelets (Bld) [#/Vol] 183 10*3/uL 150-450 [facility] Protein Auto test strip (U) [Mass/Vol]Ordered By: Edmond Branham on 09-23-2022 Protein (U) [Mass/Vol] Negative Negative [facility] Protein [Mass/volume] in Ser um or PlasmaOrdered By: Edmond Branham on 09-23-2022 Protein [Mass/Vol] 6.6 g/dL 6.1-7.9 [facility] RBC Auto (Bld) [#/Vol]Ordere d By: Edmond Branham on 09-23-2022 RBC (Bld) [#/Vol] 4.10 10*6/uL 3.60-5.00 [facility] Serum or plasma alanine lugo otransferase measurement without P-5'-P (enzymatic activiOrdered By: Edmond Branham on 09-23-2022 ALT No additional P-5'-P [Catalytic activity/Vol] 15 U/L 10-60 [facility] Serum or plasma albumin/glob ulin mass ratioOrdered By: Edmond Branham on 09-23-2022 Albumin/Globulin [Mass ratio] 1.3 {ratio} [facility] Serum or plasma alkaline elijah sphatase measurement (enzymatic activity/volume)Ordered By: Edmond Branham on 09-23-2022 ALP [Catalytic activity/Vol] 57 U/L 32-92 [facility] Serum or plasma anion gap de terminationOrdered By: Edmond Branham on 09-23-2022 Anion gap [Moles/Vol] 15.9 mmol/L 6.0-15.0 [facility] Serum or plasma aspartate am inotransferase measurement (enzymatic activity/volume)Ordered By: Edmond Branham on 09-23-2022 AST [Catalytic activity/Vol] 20 U/L 10-42 [facility] Serum or plasma calcium flakita urement (mass/volume)Ordered By: Edmond Branham on 09-23-2022 Calcium [Mass/Vol] 9.3 mg/dL 8.2-10.2 [facility] Serum or plasma chloride patrice surement (moles/volume)Ordered By: Edmond Branham on 09-23-2022 Chloride [Moles/Vol] 103 mmol/L 95-114 [facility] Serum or plasma glucose flakita urement (mass/volume)Ordered By: Edmond Branham on 09-23-2022 Glucose [Mass/Vol] 103 mg/dL 70-100 [facility] Comment on above: ADA recommended refe rence rangeRandom Glucose Reference Range is dependent on time and content of last meal. Glucose of more than 200 mg/dL in a nonstressed, ambulatory subject supports the diagnosis of Diabetes Mellitus. Serum or plasma potassium me asurement (moles/volume)Ordered By: Edmond Branham on 09-23-2022 Potassium [Moles/Vol] 3.5 mmol/L 3.5-5.1 [facility] Serum or plasma sodium measu rement (moles/volume)Ordered By: Edmond Branham on 09-23-2022 Sodium [Moles/Vol] 137 mmol/L 136-146 [facility] Serum or plasma total biliru bin measurement (mass/volume)Ordered By: Edmond Branham on 09-23-2022 Bilirubin [Mass/Vol] 0.4 mg/dL 0.3-1.2 [facility] Serum or plasma total carbon dioxide measurement (moles/volume)Ordered By: Edmond Branham on 09-23-2022 CO2 [Moles/Vol] 21.6 mmol/L 22.0-30.0 [facility] Serum or plasma urea nitroge n measurement (mass/volume)Ordered By: Edmond Branham on 09-23-2022 Urea nitrogen [Mass/Vol] 13 mg/dL 9-23 [facility] Specific gravity Auto test s trip (U) [Rel density]Ordered By: Edmond Branham on 09-23-2022 Specific gravity (U) [Rel density] 1.012 1.001-1.03 0 [facility] Squamous epithelial cells de tection in urine sediment by light microscopyOrdered By: Edmond Branham on 09-23-2022 Epithelial cells.squamous LM Ql (Urine sed) 3-4 [HPF] 0-2 [facility] Troponin I.cardiac [Mass/vol ume] in Serum or Plasma by High sensitivity methodOrdered By: Edmond Branham on 09-23-2022 Troponin I.cardiac High sensitivity method [Mass/Vol] 6 pg/mL 0-15 [facility] Urine bacteria detection by automated methodOrdered By: Edmond Branham on 09-23-2022 Bacteria Auto Ql (U) None seen None Seen [facility] Urine clarity by refractomet ry automatedOrdered By: Edmond Branham on 09-23-2022 Clarity Refractometry automated (U) Clear Clear [facility] Urine culture routineOrdered By: Edmond Branham on 09-23-2022 Bacteria identified Cx Nom (U) 2 Days [facility] Urine glucose measurement by automated test strip (mass/volume)Ordered By: Edmond Branham on 09-23-2022 Glucose Auto test strip (U) [Mass/Vol] Normal mg/dL Normal [facility] Urine hemoglobin detection b y automated test stripOrdered By: Edmond Branham on 09-23-2022 Hemoglobin Auto test strip Ql (U) Negative Negative [facility] Urine leukocyte esterase det ection by automated test stripOrdered By: Edmond Branham on 09-23-2022 Leukocyte esterase Auto test strip Ql (U) 1+ Negative [facility] Urobilinogen Auto test strip (U) [Mass/Vol]Ordered By: Edmond Branham on 09-23-2022 Urobilinogen (U) [Mass/Vol] Normal mg/dL Normal [facility] WBC Auto (Bld) [#/Vol]Ordere d By: Edmond Branham on 09-23-2022 WBC (Bld) [#/Vol] 5.2 10*3/uL 3.8-11.6 [facility] pH Auto test strip (U)Ordere d By: Edmond Branham on 09-23-2022 pH (U) 8.0 [pH] 5.0-9.0 [facility] Prothrombin Time INRon 09-17 INR Coag (PPP) [Relative time] 3.2 {INR} [employer] Other Prothrombin Time [facility] Other Prothrombin Time INRon 08-20 INR Coag (PPP) [Relative time] 2.5 {INR} [employer] Other Prothrombin Time INR [facility] Other Prothrombin Time INRon 07-24 INR Coag (PPP) [Relative time] 3.5 {INR} [employer] Other Prothrombin Time INR [facility] Other Prothrombin Time INRon 06-26 INR Coag (PPP) [Relative time] 1.7 {INR} [employer] Other Prothrombin Time INR [facility] Other Prothrombin Time INRon 06-05 INR Coag (PPP) [Relative time] 2.6 {INR} [employer] Other Prothrombin Time INR [employer] Other Laboratory - CoagulationOrde red By: Marlon Molina on 05-29-2022 PT Coag (PPP) [Time] 12.3 s 9.0-12.9 [facility] Platelet poor plasma interna tional normalized ratio (INR) by coagulation assay (relatOrdered By: Marlon Molina on 05-29-2022 INR Coag (PPP) [Relative time] 1.1 {INR} [facility] Comment on above: INR Therapeutic Rang e [...] INR Coag (PPP) [Relative time] 2.1 {INR} [facility] [employer] Other Prothrombin Time [facility]R [place] Other Basophils Auto (Bld) [#/Vol] Ordered By: Marlon Molina on 05-20-2022 Basophils (Bld) [#/Vol] 0.0 10*3/uL 0.0-0.2 [facility] Basophils/100 WBC Auto (Bld) Ordered By: Marlon Molina on 05-20-2022 Basophils/100 WBC (Bld) 0.9 % . [facility] Blood hemoglobin measurement (mass/volume)Ordered By: Marlon Molina on 05-20-2022 Hemoglobin (Bld) [Mass/Vol] 13.4 g/dL 11.8-15.4 [facility] Blood leukocytes automated c ount (number/volume)Ordered By: Marlon Molina on 05-20-2022 WBC (Bld) [#/Vol] 5.2 10*3/uL 4.5-11.0 [facility] Body fluid albumin measureme nt (mass/volume)Ordered By: Marlon Molina on 05-20-2022 Albumin (Body fld) [Mass/Vol] 3.6 g/dL 3.2-5.5 [facility] Creatinine and Glomerular fi ltration rate.predicted panel (S/P/Bld)Ordered By: Marlon Molina on 05-20-2022 Creatinine [Mass/Vol] 1.04 mg/dL 0.44-1.03 [facility] Eosinophils Auto (Bld) [#/Vo l]Ordered By: Marlon Molina on 05-20-2022 Eosinophils (Bld) [#/Vol] 0.1 10*3/uL 0.0-0.45 [facility] Eosinophils/100 WBC Auto (Bl d)Ordered By: Marlon Molina on 05-20-2022 Eosinophils/100 WBC (Bld) 1.1 % . [facility] Erythrocyte distribution wid th Auto (RBC) [Ratio]Ordered By: Marlon Molina on 05-20-2022 Erythrocyte distribution width (RBC) [Ratio] 14.6 % 11.9-15.3 [facility] Estimated glomerular filtrat ion rate (GFR) non- AmericanOrdered By: Marlon Molina on 05-20-2022 GFR/1.73 sq M.predicted among non-blacks MDRD (S/P/Bld) [Vol rate/Area] 52 mL/Min [facility] Globulin Calc (S) [Mass/Vol] Ordered By: Marlon Molina on 05-20-2022 Globulin (S) [Mass/Vol] 2.8 g/dL [facility] Hematocrit Auto (Bld) [Volum e fraction]Ordered By: Marlon Molina on 05-20-2022 Hematocrit (Bld) [Volume fraction] 39.7 % 34.0-46.4 [facility] Laboratory - Hematology and Cell countsOrdered By: Marlon Molina on 05-20-2022 Nucleated RBC/100 WBC (Bld) [Ratio] 0.0 % 0-0.5 [facility] Lymphocytes Auto (Bld) [#/Vo l]Ordered By: Marlon Molina on 05-20-2022 Lymphocytes (Bld) [#/Vol] 1.2 10*3/uL 1.00-4.8 [facility] Lymphocytes/100 WBC Auto (Bl d)Ordered By: Marlon Molina on 05-20-2022 Lymphocytes/100 WBC (Bld) 22.5 % . [facility] MCH Auto (RBC) [Entitic mass ]Ordered By: Marlon Molina on 05-20-2022 MCH (RBC) [Entitic mass] 32.5 pg 24.7-34.3 [facility] MCHC Auto (RBC) [Mass/Vol]Or dered By: Marlon Molina on 05-20-2022 MCHC (RBC) [Mass/Vol] 33.7 g/dL 32.0-35.0 [facility] MCV Auto (RBC) [Entitic vol] Ordered By: Marlon Molina on 05-20-2022 MCV (RBC) [Entitic vol] 96.3 fL 80-100 [facility] Monocytes Auto (Bld) [#/Vol] Ordered By: Marlon Molina on 05-20-2022 Monocytes (Bld) [#/Vol] 0.4 10*3/uL 0.0-0.8 [facility] Monocytes/100 WBC Auto (Bld) Ordered By: Marlon Molina on 05-20-2022 Monocytes/100 WBC (Bld) 7.1 % . [facility] Neutrophils Auto (Bld) [#/Vo l]Ordered By: Marlon Molina on 05-20-2022 Neutrophils (Bld) [#/Vol] 3.6 10*3/uL 1.8-7.7 [facility] Neutrophils/100 WBC Auto (Bl d)Ordered By: Marlon Molina on 05-20-2022 Neutrophils/100 WBC (Bld) 68.4 % . [facility] No Panel InformationOrdered By: Marlon Molina on 05-20-2022 Estimated GFR () > 60 mL/Min [facility] Comment on above: GFR estimated refere nce range: According to KDOQI guidelines, <60 ml/min/1.73m2 is sufficient to diagnose a patient with chronic kidney disease. Pharmacy Creatinine Clearance (Chem N/A [facility] Platelet mean volume Auto (B ld) [Entitic vol]Ordered By: Marlon Molina on 05-20-2022 Platelet mean volume (Bld) [Entitic vol] 8.8 fL 6.3-10.7 [facility] Platelets Auto (Bld) [#/Vol] Ordered By: Marlon Molina on 05-20-2022 Platelets (Bld) [#/Vol] 224 10*3/uL 150-450 [facility] Protein [Mass/volume] in Ser um or PlasmaOrdered By: Marlon Molina on 05-20-2022 Protein [Mass/Vol] 6.4 g/dL 6.1-7.9 [facility] RBC Auto (Bld) [#/Vol]Ordere d By: Marlon Molina on 05-20-2022 RBC (Bld) [#/Vol] 4.13 10*6/uL 3.60-5.00 [facility] Serum or plasma alanine lugo otransferase measurement without P-5'-P (enzymatic activiOrdered By: Marlon Molina on 05-20-2022 ALT No additional P-5'-P [Catalytic activity/Vol] 18 U/L 10-60 [facility] Serum or plasma albumin/glob ulin mass ratioOrdered By: Marlon Molina on 05-20-2022 Albumin/Globulin [Mass ratio] 1.3 {ratio} [facility] Serum or plasma alkaline elijah sphatase measurement (enzymatic activity/volume)Ordered By: Marlon Molina on 05-20-2022 ALP [Catalytic activity/Vol] 51 U/L 32-92 [facility] Serum or plasma anion gap de terminationOrdered By: Marlon Molina on 05-20-2022 Anion gap [Moles/Vol] 16.4 mmol/L 6.0-15.0 [facility] Serum or plasma aspartate am inotransferase measurement (enzymatic activity/volume)Ordered By: Marlon Molina on 05-20-2022 AST [Catalytic activity/Vol] 21 U/L 10-42 [facility] Serum or plasma calcium flakita urement (mass/volume)Ordered By: Marlon Molina on 05-20-2022 Calcium [Mass/Vol] 8.8 mg/dL 8.2-10.2 [facility] Serum or plasma chloride patrice surement (moles/volume)Ordered By: Marlon Molina on 05-20-2022 Chloride [Moles/Vol] 99 mmol/L 95-114 [facility] Serum or plasma glucose flakita urement (mass/volume)Ordered By: Marlon Molina on 05-20-2022 Glucose [Mass/Vol] 191 mg/dL 70-100 [facility] Comment on above: ADA recommended refe rence rangeRandom Glucose Reference Range is dependent on time and content of last meal. Glucose of more than 200 mg/dL in a nonstressed, ambulatory subject supports the diagnosis of Diabetes Mellitus. Serum or plasma potassium me asurement (moles/volume)Ordered By: Marlon Molina on 05-20-2022 Potassium [Moles/Vol] 4.1 mmol/L 3.5-5.1 [facility] Serum or plasma sodium measu rement (moles/volume)Ordered By: Marlon Molina on 05-20-2022 Sodium [Moles/Vol] 136 mmol/L 136-146 [facility] Serum or plasma total biliru bin measurement (mass/volume)Ordered By: Marlon Molina on 05-20-2022 Bilirubin [Mass/Vol] 0.3 mg/dL 0.3-1.2 [facility] Serum or plasma total carbon dioxide measurement (moles/volume)Ordered By: Marlon Molina on 05-20-2022 CO2 [Moles/Vol] 24.7 mmol/L 22.0-30.0 [facility] Serum or plasma urea nitroge n measurement (mass/volume)Ordered By: Marlon Molina on 05-20-2022 Urea nitrogen [Mass/Vol] 15 mg/dL 9-23 [facility] Prothrombin Time INRon 05-06 INR Coag (PPP) [Relative time] 1.5 {INR} [employer] Other Prothrombin Time INR [facility] [employer] Other Prothrombin Time INRon 04-08 INR Coag (PPP) [Relative time] 1.8 {INR} [employer] Other Prothrombin Time INR [employer] Other Prothrombin Time INRon 03-13 INR Coag (PPP) [Relative time] 2.3 {INR} [employer] Other Prothrombin Time INR [facility] [employer] Other Prothrombin Time INRon 02-27 INR Coag (PPP) [Relative time] 2.3 {INR} [employer] Other Prothrombin Time INR [employer] Other COVID-19 Positive/NegativeOr dered By: Tang Mcclellan on 02-26-2022 SARS-CoV-2 (COVID-19) N gene ZHAO+probe Ql (Resp) Negative Negative [facility] Comment on above: Testing for SARS-CoV -2 by RT-PCRThis test was developed and its performance characteristics determined by [employer] ([employer]) and validated at the [facility]. This test has not been FDA cleared [...] INR Coag (PPP) [Relative time] 2.0 {INR} [employer] Other Prothrombin Time INR [employer] Other Prothrombin Time INRon 01-06 INR Coag (PPP) [Relative time] 1.4 {INR} [employer] Other Prothrombin Time INR [employer] Other Prothrombin Time INRon 12-23 INR Coag (PPP) [Relative time] 1.7 {INR} [employer] Other Prothrombin Time INR [facility] Other Prothrombin Time INRon 12-11 INR Coag (PPP) [Relative time] 2.9 {INR} [place] [employer] Other Prothrombin Time INR [facility] [employer] Other Prothrombin Time INRon 11-27 INR Coag (PPP) [Relative time] 1.7 {INR} [place] [employer] Other Prothrombin Time INR [facility] Other Prothrombin Time INRon 11-12 INR Coag (PPP) [Relative time] 1.9 {INR} [place] [employer] Other Prothrombin Time INR [facility] Other Prothrombin Time INRon 10-31 INR Coag (PPP) [Relative time] 2.1 {INR} [place] [employer] Other Prothrombin Time INR [facility] Other Prothrombin Time INRon 10-14 INR Coag (PPP) [Relative time] 2.5 {INR} [place] [employer] Other Prothrombin Time INR [facility] Other Prothrombin Time INRon 09-30 INR Coag (PPP) [Relative time] 2.6 {INR} [place] [employer] Other Prothrombin Time INR [facility] Other Prothrombin Time INRon 09-12 INR Coag (PPP) [Relative time] 1.8 {INR} [employer] Other Prothrombin Time INR [facility] Other Prothrombin Time INRon 08-29 INR Coag (PPP) [Relative time] 2.1 {INR} [employer] Other Prothrombin Time [facility]R [facility] [place] Other Prothrombin Time INRon 08-15 Prothrombin Time INR 1.5 [facility] [employer] Other Prothrombin Time INRon 08-01 INR Coag (PPP) [Relative time] 2.5 {INR} [facility] [employer] Other Prothrombin Time INR [facility] [employer] Other Prothrombin Time INRon 07-15 INR Coag (PPP) [Relative time] 2.6 {INR} [facility] [employer] Other Prothrombin Time INR [facility] [employer] Other Prothrombin Time INRon 07-03 INR Coag (PPP) [Relative time] 2.4 {INR} [facility] [employer] Other Prothrombin Time INR [facility] Other Prothrombin Time INRon 06-19 INR Coag (PPP) [Relative time] 1.8 {INR} [facility] [employer] Other Prothrombin Time INR [facility] [employer] Other Prothrombin Time INRon 05-28 INR Coag (PPP) [Relative time] 2.1 {INR} [facility] [employer] Other Prothrombin Time INR [facility] Other Prothrombin Time INRon 05-15 INR Coag (PPP) [Relative time] 1.6 {INR} [facility] [employer] Other Prothrombin Time INR [facility] Other Vital Signs Date Time Vital Sign Value Performing Clinician Facility 02-13-2025 08:40-0400 Body height 154.9 cm Venita Marques [employer] Work Phone: [facility] 02-13-2025 08:40-0400 Body mass index (BMI) [Ratio] 34.31 kg/m2 Venita Marques NP Work Phone: [facility] 02-13-2025 08:40-0400 Body weight 82.37 kg Venita Didion [employer] Work Phone: [facility] 02-13-2025 08:40-0400 Diastolic blood pressure 70 mm[Hg] Venita Didion [employer] Work Phone: [facility] 02-13-2025 08:40-0400 Heart rate 74 /min Venita Didion [employer] Work Phone: [facility] 02-13-2025 08:40-0400 Respiratory rate 16 /min Venita Didion [employer] Work Phone: [facility] 02-13-2025 08:40-0400 SaO2% (BldA) [Mass fraction] 98 % Venita Didion [employer] Work Phone: [facility] 02-13-2025 08:40-0400 Systolic blood pressure 112 mm[Hg] Venita Didion [employer] Work Phone: [facility] 01-09-2025 08:47-0400 Body height 154.9 cm Kristopher Herzog DO Work Phone: [facility] 01-09-2025 08:47-0400 Body mass index (BMI) [Ratio] 33.82 kg/m2 Kristophervicne Herzog DO Work Phone: [facility] 01-09-2025 08:47-0400 Body weight 81.19 kg Kristophervince Herzog DO Work Phone: [facility] 01-09-2025 08:47-0400 Diastolic blood pressure 72 mm[Hg] Kristopher Chuy DO Work Phone: [facility] 01-09-2025 08:47-0400 Heart rate 68 /min Kristopher Chuy DO Work Phone: [facility] 01-09-2025 08:47-0400 SaO2% (BldA) [Mass fraction] 97 % Kristopher Chuy DO Work Phone: [facility] 01-09-2025 08:47-0400 Systolic blood pressure 112 mm[Hg] Kristopher Herzog DO Work Phone: [facility] 12-16-2024 09:20-0400 Body height 154.9 cm Radha Itzkowitz DO Work Phone: [facility] 12-16-2024 09:20-0400 Body mass index (BMI) [Ratio] 32.5 kg/m2 Radha Itzkowitz DO Work Phone: [facility] 12-16-2024 09:20-0400 Body weight 78.02 kg Radha Itzkomeletz DO Work Phone: [facility] 12-14-2024 09:01-0400 Body height 154.9 cm Kristopher Herzog DO Work Phone: [facility] 12-14-2024 09:01-0400 Body mass index (BMI) [Ratio] 32.61 kg/m2 Kristopher Herzog DO Work Phone: [facility] 12-14-2024 09:01-0400 Body weight 78.29 kg Kristopher Herzog DO Work Phone: [facility] 12-14-2024 09:01-0400 Heart rate 72 /min Kristopher Herzog DO Work Phone: [facility] 12-14-2024 09:01-0400 SaO2% (BldA) [Mass fraction] 99 % Kristopher Herzog DO Work Phone: [facility] 10-25-2024 14:36-0500 Diastolic blood pressure 58 mm[Hg] Venita Didion [employer] Work Phone: [facility] 10-25-2024 14:36-0500 Heart rate 74 /min Venita Didion [employer] Work Phone: [facility] 10-25-2024 14:36-0500 Respiratory rate 16 /min Venita Didion [employer] Work Phone: [facility] 10-25-2024 14:36-0500 SaO2% (BldA) [Mass fraction] 98 % Venita Marques [employer] Work Phone: [facility] 10-25-2024 14:36-0500 Systolic blood pressure 120 mm[Hg] Venita Marques [employer] Work Phone: [facility] 10-07-2024 09:08-0500 Body height 154.[address] [facility] 10-07-2024 09:08-0500 Body mass index (BMI) [Ratio] 33.6 kg/m2 [facility] 10-07-2024 09:08-0500 Body weight 80.[address] [facility] 10-07-2024 09:08-0500 Diastolic blood pressure 75 mm[Hg] [facility] 10-07-2024 09:08-0500 Heart rate 73 /min [facility] 10-07-2024 09:08-0500 Systolic blood pressure 127 mm[Hg] [facility] 10-03-2024 09:14-0500 Body height 156.2 cm Kristopher Herzog DO Work Phone: [facility] 10-03-2024 09:14-0500 Body mass index (BMI) [Ratio] 33.09 kg/m2 Kristopher Chuy DO Work Phone: [facility] 10-03-2024 09:14-0500 Body weight 80.74 kg Kristopher Herzog DO Work Phone: [facility] 10-03-2024 09:14-0500 Diastolic blood pressure 58 mm[Hg] Kristopher Herzog DO Work Phone: [facility] 10-03-2024 09:14-0500 Heart rate 74 /min Kristopher Herzog DO Work Phone: [facility] 10-03-2024 09:14-0500 SaO2% (BldA) [Mass fraction] 99 % Kristopher Herzog DO Work Phone: [facility] 10-03-2024 09:14-0500 Systolic blood pressure 120 mm[Hg] Kristopher Herzog DO Work Phone: [facility] 06-29-2024 10:39-0500 Body height 154.[address] [facility] 06-29-2024 10:39-0500 Body mass index (BMI) [Ratio] 33.8 kg/m2 [facility] 06-29-2024 10:39-0500 Body weight 81.[address] [facility] 06-22-2024 08:50-0400 Body height 156.2 cm Adam Rodriguez [employer] Work Phone: [facility] 06-22-2024 08:50-0400 Body mass index (BMI) [Ratio] 33.09 kg/m2 Adam Rodriguez [employer] Work Phone: [facility] 06-22-2024 08:50-0400 Body weight 80.74 kg Adam Rodriguez [employer] Work Phone: [facility] 06-22-2024 08:50-0400 Diastolic blood pressure 74 mm[Hg] Adam Rodriguez [employer] Work Phone: [facility] 06-22-2024 08:50-0400 Heart rate 79 /min Adam Rodriguez [employer] Work Phone: [facility] 06-22-2024 08:50-0400 SaO2% (BldA) [Mass fraction] 99 % Adam Rodriguez [employer] Work Phone: [facility] 06-22-2024 08:50-0400 Systolic blood pressure 120 mm[Hg] Adam Rodriguez [employer] Work Phone: [facility] 04-29-2024 08:53-0400 Body height 156.2 cm Radha Itzkowitz DO Work Phone: [facility] 04-29-2024 08:53-0400 Body mass index (BMI) [Ratio] 33.46 kg/m2 Radha Itzkowitz DO Work Phone: [facility] 04-29-2024 08:53-0400 Body weight 81.65 kg Radha Itzkowitz DO Work Phone: [facility] 04-29-2024 08:53-0400 Diastolic blood pressure 74 mm[Hg] Radha Itzkowitz DO Work Phone: [facility] 04-29-2024 08:53-0400 Systolic blood pressure 122 mm[Hg] Radha Itzkowitz DO Work Phone: [facility] 02-09-2024 11:03-0400 Diastolic blood pressure 60 mm[Hg] DO Kristopher Chuy Work Phone: [facility] 02-09-2024 11:03-0400 Heart rate 76 /min DO Kristopher Chuy Work Phone: [facility] 02-09-2024 11:03-0400 Respiratory rate 16 /min DO Kristopher Chuy Work Phone: [facility] 02-09-2024 11:03-0400 SaO2% (BldA) [Mass fraction] 99 % DO Kristopher Chuy Work Phone: [facility] 02-09-2024 11:03-0400 Systolic blood pressure 128 mm[Hg] DO Kristopher Chuy Work Phone: [facility] 02-09-2024 09:32-0400 Body height 154.94 cm DO Kristopher Chuy Work Phone: [facility] 02-09-2024 09:32-0400 Body temperature 99 [degF] DO Kristopher Chuy Work Phone: [facility] 02-09-2024 09:32-0400 Body weight 78.92 kg DO Kristopher Chuy Work Phone: [facility] 12-28-2023 11:17-0400 Diastolic blood pressure 77 mm[Hg] DO Kristopher Chuy Work Phone: [facility] 12-28-2023 11:17-0400 Heart rate 77 /min DO Kristopher Chuy Work Phone: [facility] 12-28-2023 11:17-0400 Respiratory rate 16 /min DO Kristopher Herzog Work Phone: [facility] 12-28-2023 11:17-0400 SaO2% (BldA) [Mass fraction] 99 % DO Kristopher Herzog Work Phone: [facility] 12-28-2023 11:17-0400 Systolic blood pressure 113 mm[Hg] DO Kristopher Herzog Work Phone: [facility] 12-28-2023 08:33-0400 Body height 154.94 cm DO Kristopher Herzog Work Phone: [facility] 12-28-2023 08:33-0400 Body weight 79.83 kg DO Kristopher Herzog Work Phone: [facility] 12-07-2023 10:06-0400 Body height 156.21 cm DO Kristopher Herzog Work Phone: [facility] 12-07-2023 10:06-0400 Body mass index (BMI) [Ratio] 32.7 kg/m2 DO Kristopher Herzog Work Phone: [facility] 12-07-2023 10:06-0400 Body weight 79.83 kg DO Kristopher Herzog Work Phone: [facility] 12-07-2023 10:06-0400 Diastolic blood pressure 74 mm[Hg] DO Kristopher Herzog Work Phone: [facility] 12-07-2023 10:06-0400 Heart rate 79 /min DO Kristopher Herzog Work Phone: [facility] 12-07-2023 10:06-0400 Systolic blood pressure 142 mm[Hg] DO Kristopher Chuy Work Phone: [facility] 12-15-2022 17:21-0400 Body temperature 98.1 [degF] DO Kristopher Herzog Work Phone: [facility] 12-15-2022 17:21-0400 Diastolic blood pressure 77 mm[Hg] DO Kristopher Chuy Work Phone: [facility] 12-15-2022 17:21-0400 Heart rate 83 /min DO Kristopher Chuy Work Phone: [facility] 12-15-2022 17:21-0400 Respiratory rate 16 /min DO Kristopher Chuy Work Phone: [facility] 12-15-2022 17:21-0400 SaO2% (BldA) [Mass fraction] 99 % DO Kristopher Chuy Work Phone: [facility] 12-15-2022 17:21-0400 Systolic blood pressure 158 mm[Hg] DO Kristopher Chuy Work Phone: [facility] 12-15-2022 06:00-0400 Body weight 85.3 kg DO Kristopher Chuy Work Phone: [facility] 12-13-2022 20:01-0400 Diastolic blood pressure 81 mm[Hg] DO Kristopher Chuy Work Phone: [facility] 12-13-2022 20:01-0400 Heart rate 75 /min DO Kristopher Chuy Work Phone: [facility] 12-13-2022 20:01-0400 Respiratory rate 18 /min DO Kristopher Chuy Work Phone: [facility] 12-13-2022 20:01-0400 SaO2% (BldA) [Mass fraction] 99 % DO Kristopher Chuy Work Phone: [facility] 12-13-2022 20:01-0400 Systolic blood pressure 167 mm[Hg] DO Kristopher Chuy Work Phone: [facility] 12-13-2022 13:48-0400 Body height 160.02 cm DO Kristopher Chuy Work Phone: [facility] 12-13-2022 13:48-0400 Body temperature 98.6 [degF] DO Kristopher Herzog Work Phone: [facility] 12-13-2022 13:48-0400 Body weight 88.3 kg DO Kristopher Herzog Work Phone: [facility] 09-23-2022 19:59-0500 Diastolic blood pressure 72 mm[Hg] DO Kristopher Herzog Work Phone: [facility] 09-23-2022 19:59-0500 Heart rate 77 /min DO Kristopher Herzog Work Phone: [facility] 09-23-2022 19:59-0500 Respiratory rate 18 /min DO Kristopher Herzog Work Phone: [facility] 09-23-2022 19:59-0500 SaO2% (BldA) [Mass fraction] 97 % DO Kristopher Herzog Work Phone: [facility] 09-23-2022 19:59-0500 Systolic blood pressure 168 mm[Hg] DO Kristopher Herzog Work Phone: [facility] 09-23-2022 18:17-0500 Body height 160.02 cm DO Kristopher Herzog Work Phone: [facility] 09-23-2022 18:17-0500 Body temperature 98.7 [degF] DO Kristopher Herzog Work Phone: [facility] 09-23-2022 18:17-0500 Body weight 85.7 kg DO Kristopher Herzog Work Phone: [facility] 07-16-2022 09:56-0500 Body temperature 98.8 [degF] DO Kristopher Chuy Work Phone: [facility] 07-16-2022 09:56-0500 Diastolic blood pressure 70 mm[Hg] DO Kristopher Chuy Work Phone: [facility] 07-16-2022 09:56-0500 Heart rate 79 /min DO Kristopher Herzog Work Phone: [facility] 07-16-2022 09:56-0500 Respiratory rate 17 /min DO Kristopher Herzog Work Phone: [facility] 07-16-2022 09:56-0500 SaO2% (BldA) [Mass fraction] 98 % DO Kristopher Herzog Work Phone: [facility] 07-16-2022 09:56-0500 Systolic blood pressure 150 mm[Hg] DO Kristopherivnce Herzog Work Phone: [facility] 07-16-2022 08:29-0500 Body height 160.02 cm DO Kristopher Herzog Work Phone: [facility] 07-16-2022 08:29-0500 Body weight 83 kg DO Kristopher Herzog Work Phone: [facility] 06-04-2022 09:13-0400 Body temperature 97.9 [degF] DO Kristopher Herzog Work Phone: [facility] 06-04-2022 09:13-0400 Diastolic blood pressure 64 mm[Hg] DO Kristopher Herzog Work Phone: [facility] 06-04-2022 09:13-0400 Heart rate 93 /min DO Kristopher Herzog Work Phone: [facility] 06-04-2022 09:13-0400 Respiratory rate 20 /min DO Kristopher Herzog Work Phone: [facility] 06-04-2022 09:13-0400 SaO2% (BldA) [Mass fraction] 97 % DO Kristopher Herzog Work Phone: [facility] 06-04-2022 09:13-0400 Systolic blood pressure 134 mm[Hg] DO Kristopher Chuy Work Phone: [facility] 05-29-2022 08:18-0400 Body temperature 98.1 [degF] DO Kristopher Herzog Work Phone: [facility] 05-29-2022 08:18-0400 Diastolic blood pressure 76 mm[Hg] DO Kristopher Herzog Work Phone: [facility] 05-29-2022 08:18-0400 Heart rate 77 /min DO Kristopher Herzog Work Phone: [facility] 05-29-2022 08:18-0400 Respiratory rate 20 /min DO Kristopher Herzog Work Phone: [facility] 05-29-2022 08:18-0400 SaO2% (BldA) [Mass fraction] 98 % DO Kristopher Herzog Work Phone: [facility] 05-29-2022 08:18-0400 Systolic blood pressure 146 mm[Hg] DO Kristopher Herzog Work Phone: [facility] 02-11-2022 08:39-0400 Body weight 0 kg DO Kristopher Herzog Work Phone: [facility] 01-28-2022 16:15-0400 Body height 157.48 cm Tang Mcclellan Other [employer] Other 01-28-2022 16:15-0400 Body mass index (BMI) [Ratio] 31.64 kg/m2 Tang Mcclellan Other [employer] Other 01-28-2022 16:15-0400 Body weight 78.47 kg Tang Mcclellan Other [employer] Other Encounters Encounter Date Encounter Type Care Provider Facility Start: 05-22-2025 End: 05-22-2025 Cindy Branham DPM Work Phone: [facility] Start: 05-22-2025 End: 05-22-2025 Bamboo flowsheet [facility] Start: 05-22-2025 End: 05-22-2025 ambulatory MARLON Olman YONAS Not Available Start: 05-22-2025 End: 05-22-2025 Postop follow up visit related to original px Marlon Branham DPM Work Phone: [facility] Comment on above: Onychomycosis (Prima ry Dx); Pain in both feet; Type II diabetes mellitus with neurological manifestations (HCC); Corns and callosities; Hallux malleus, right; Surgery follow-up examination Start: 04-20-2025 End: 04-20-2025 Bamboo flowsheet Marlon H Yonas DPM Work Phone: [facility] Start: 04-20-2025 End: 04-20-2025 Bamboo flowsheet Marlon Thurman Branham DPM Work Phone: [facility] Start: 04-20-2025 End: 04-20-2025 Postop follow up visit related to original px Marlon Branham DPM Work Phone: [facility] Comment on above: Posterior tibial ten donitis, right (Primary Dx); Surgery follow-up examination; Hallux malleus, right; Ulcer of great toe, right, limited to breakdown of skin (HCC) Start: 04-20-2025 End: 04-20-2025 ambulatory MARLON BRANHAM Not Available Start: 04-05-2025 End: 04-05-2025 Bamboo flowsheet Marlon Olman Yonas DPM Work Phone: [facility] [place] [facility] Start: 04-05-2025 End: 04-05-2025 Bamboo flowsheet Marlon H Yonas DPM Work Phone: [facility] Start: 04-05-2025 End: 04-05-2025 Postop follow up visit related to original px Marlon Olman Yonas [facility]PM [facility] Comment on above: Surgery follow-up ex amination (Primary Dx); Hallux malleus, right; Ulcer of great toe, right, limited to breakdown of skin (HCC); Right foot pain Start: 04-05-2025 End: 04-05-2025 ambulatory MARLON BRANHAM Not Available Start: 03-22-2025 End: 03-22-2025 Bamboo flowsheet Marlon Branham DPM Work Phone: [facility] Start: 03-22-2025 End: 03-22-2025 Bamboo flowsheet Marlon Branham DPM Work Phone: [facility] Start: 03-22-2025 End: 03-22-2025 Postop follow up visit related to original px Marlon Branham DPM Work Phone: [facility] Comment on above: Surgery follow-up ex amination (Primary Dx); Hallux malleus, right; Right foot pain; Ulcer of great toe, right, limited to breakdown of skin (HCC) Start: 03-22-2025 End: 03-22-2025 ambulatory MARLON BRANHAM Not Available Start: 03-17-2025 End: 03-17-2025 ambulatory Kristopher Herzog DO Work Phone: [facility] Work Phone: Start: 03-17-2025 End: 03-17-2025 Patient encounter procedure Kiersten Goodridge [facility] Work Phone: Start: 03-14-2025 End: 03-14-2025 Bamboo flowsheet Marlon Branham DPM Work Phone: [facility] Start: 03-14-2025 End: 03-14-2025 Bamboo flowsheet Marlon Branham DPM Work Phone: [facility] Start: 03-14-2025 End: 03-14-2025 ambulatory MARLON BRANHAM Not Available Start: 03-14-2025 End: 03-14-2025 Postop follow up visit related to original px Marlon Branham DPM Work Phone: [facility] Comment on above: Surgery follow-up ex amination (Primary Dx); Hallux malleus, right; Right foot pain Start: 03-13-2025 End: 03-13-2025 ambulatory Kristopher Herzog DO Work Phone: [facility] Work Phone: Start: 03-13-2025 End: 03-13-2025 Patient encounter procedure Rivers nicol [facility] Work Phone: Start: 03-09-2025 End: 03-09-2025 Bamboo flowsheet Caro HEWITT Work Phone: [facility] Start: 03-09-2025 End: 03-09-2025 Bamboo flowsheet Caro Hugo PA Work Phone: [facility] Start: 03-09-2025 End: 03-09-2025 ambulatory Kristopher Herzog DO Work Phone: [facility] Work Phone: Start: 03-09-2025 End: 03-09-2025 Patient encounter procedure Tita Floresnicol [facility] Work Phone: Start: 03-09-2025 End: 03-09-2025 Office outpatient new 30 minutes Caro Hugo PA Work Phone: [facility] Comment on above: Acute pain of left k nee (Primary Dx); Primary osteoarthritis of left knee Start: 03-09-2025 End: 03-09-2025 ambulatory CARO HUGO Not Available Start: 03-07-2025 End: 03-07-2025 Bamboo flowsheet Marlon Branham DPM Work Phone: [facility] Start: 03-07-2025 End: 03-07-2025 Bamboo flowsheet Marlon Branham DPM Work Phone: [facility] Start: 03-07-2025 End: 03-07-2025 Postop follow up visit related to original px Marlon Branham DPM Work Phone: [facility] Comment on above: Surgery follow-up ex amination (Primary Dx); Hallux malleus, right; Right foot pain; Ulcer of great toe, right, limited to breakdown of skin (HCC) Start: 03-07-2025 End: 03-07-2025 ambulatory MARLON BRANHAM Not Available Start: 02-22-2025 End: 02-22-2025 Telephone encounter Venita Marques NP Work Phone: [facility] Start: 02-22-2025 End: 02-22-2025 ambulatory Kristopher Herzog DO Work Phone: [facility] Work Phone: Start: 02-22-2025 End: 02-22-2025 Patient encounter procedure Tita Roberts [facility] Work Phone: Start: 02-16-2025 End: 02-16-2025 Bamboo flowsheet Marlon Branham DPM Work Phone: [facility] Start: 02-16-2025 End: 02-16-2025 Bamboo flowsheet Marlon Branham DPM Work Phone: [facility] Start: 02-16-2025 End: 02-16-2025 ambulatory MARLON BRANHAM Not Available Start: 02-16-2025 End: 02-16-2025 Office outpatient visit 15 minutes Marlon Branham DPM Work Phone: [facility] Comment on above: Hallux malleus, righ t (Primary Dx); Right foot pain Start: 02-13-2025 End: 02-13-2025 Office outpatient visit 15 minutes Venita Marques NP Work Phone: [facility] Comment on above: Acute pain of left k nee (Primary Dx); Primary osteoarthritis of left knee; Hallux malleus of right foot; Callus; Preoperative clearance Start: 02-13-2025 End: 02-13-2025 Preoperative state Venita Marques [employer] Work Phone: [facility] Start: 02-13-2025 End: 02-13-2025 ambulatory VENITA MARQUES Not Available Start: 02-09-2025 End: 02-09-2025 Patient encounter procedure Kiersten Qureshi [facility] Work Phone: Start: 02-01-2025 End: 02-01-2025 Bamboo flowsheet Marlon Branham DPM Work Phone: [facility] Start: 02-01-2025 End: 02-01-2025 Bamboo flowsheet Marlon Branham DPM Work Phone: [facility] Start: 02-01-2025 End: 02-01-2025 ambulatory Kristopher Herzog DO Work Phone: [facility] Work Phone: Start: 02-01-2025 End: 02-01-2025 Patient encounter procedure Kristopher Herzog DO Work Phone: [facility] Work Phone: Start: 02-01-2025 End: 02-01-2025 ambulatory MARLON BRANHAM Not Available Start: 02-01-2025 End: 02-01-2025 Office outpatient visit 15 minutes Marlon Branham DPM Work Phone: [facility] Comment on above: Onychomycosis (Prima ry Dx); Corns and callosities; Hallux malleus, right; Type II diabetes mellitus with neurological manifestations (CMS/HCC); Pain in both feet Start: 01-11-2025 End: 01-11-2025 Clinisync Result Encounter Kristopher Herzog DO Work Phone: [facility] Unsolicited Start: 01-11-2025 End: 01-11-2025 Clinisync Result Encounter Kristopher Welch Chuy DO Work Phone: [facility] Unsolicited Start: 01-09-2025 End: 01-09-2025 Bamboo flowsheet Kristopher Herzog DO Work Phone: [facility] Start: 01-09-2025 End: 01-09-2025 Bamboo flowsheet Kristopher A Chuy DO Work Phone: [facility] Start: 01-09-2025 End: 01-09-2025 Office outpatient visit 40 minutes Kristopher Rebekah Chuy DO Work Phone: [facility] Comment on above: Medicare annual well ness visit, subsequent (Primary Dx); Advance care planning; Type 2 diabetes mellitus with stage 3a chronic kidney disease, with long-term current use of insulin (HCC) (CMS/HCC); Diabetic peripheral neuropathy associated with type 2 diabetes mellitus (CMS/HCC); jail current use of insulin (CMS/HCC); Mixed hyperlipidemia (CMS/HCC); Steatosis of liver; Primary hypertension (CMS/HCC); Chronic deep vein thrombosis (DVT) of femoral vein of left lower extremity (CMS/HCC); Spinal stenosis of lumbosacral region; jail current use of 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 Start: 01-09-2025 End: 01-09-2025 Patient encounter procedure Kristopher Rebekah Chuy DO Work Phone: [facility] Work Phone: Start: 01-09-2025 End: 01-09-2025 ambulatory KRISTOPHER HERZOG Not Available Start: 01-05-2025 End: 01-05-2025 Clinisync Result Encounter Kristopher Rebekah Chuy DO Work Phone: [facility] External Department Unsolicited Start: 01-05-2025 End: 01-05-2025 Clinisync Result Encounter Kristopher Herzog DO Work Phone: [facility] External Department Unsolicited Start: 01-04-2025 End: 01-04-2025 ambulatory Kristophervince Herzog DO Work Phone: [facility] Work Phone: Start: 01-04-2025 End: 01-04-2025 Patient encounter procedure Kristopher Herzog DO Work Phone: [facility] Work Phone: Start: 12-16-2024 End: 12-16-2024 ambulatory RADHA H ITMARIZAHERMILO Not Available Start: 12-16-2024 End: 12-16-2024 Office outpatient visit 25 minutes Radha Olman Itmaikolel DO Work Phone: [facility] Comment on above: Axillary lymphadenop athy (Primary Dx); H/O diagnostic mammography Start: 12-14-2024 End: 12-14-2024 Bamboo flowsheet Kristopher Herzog DO Work Phone: [facility] Start: 12-14-2024 End: 12-14-2024 Bamboo flowsheet Kristopher Belloman DO Work Phone: [facility] Start: 12-14-2024 End: 12-14-2024 Office outpatient visit 40 minutes Kristopher Herzog DO Work Phone: [facility] Comment on above: Diabetic peripheral neuropathy associated with type 2 diabetes mellitus (CMS/HCC) (Primary Dx); jail current use of insulin (CMS/HCC); Mixed hyperlipidemia (CMS/HCC); Hypercoagulable state (CMS/HCC); 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; Steatosis of liver; Primary hypertension (CMS/HCC); Venous insufficiency; Primary osteoarthritis of left knee Start: 12-14-2024 End: 12-14-2024 ambulatory KRISTOPHER HERZOG Not Available Start: 12-07-2024 End: 12-07-2024 ambulatory Radha Itzkowitz Facility:[facility] Start: 12-07-2024 End: 12-07-2024 Patient encounter procedure Kristopher Herzog DO Work Phone: [facility] Comment on above: Leg numbness (Primar y Dx) Start: 11-30-2024 End: 11-30-2024 ambulatory [facility] Work Phone: Start: 11-30-2024 End: 11-30-2024 Patient encounter procedure [facility] Work Phone: Start: 11-23-2024 End: 11-23-2024 ambulatory VENITA L DIDION Not Available Start: 11-15-2024 End: 11-15-2024 ambulatory VENITA L DIDION Not Available Start: 11-02-2024 End: 11-02-2024 ambulatory [facility] Work Phone: Start: 11-02-2024 End: 11-02-2024 Patient encounter procedure [facility] Work Phone: Start: 10-31-2024 End: 10-31-2024 ambulatory MARLON BRANHAM Not Available Start: 10-27-2024 End: 10-27-2024 ambulatory VENITA L DIDION Not Available Start: 10-25-2024 End: 10-25-2024 ambulatory VENITA L DIDION Not Available Start: 10-25-2024 End: 10-25-2024 Office outpatient visit 25 minutes Venita L Didion [employer] Work Phone: [facility] Comment on above: Nonintractable heada shelby, unspecified chronicity pattern, unspecified headache type (Primary Dx); Neck pain; Paresthesia of left arm; Numbness of fingers Start: 10-23-2024 Non-patient / Non-visit [facility] Work Phone: Start: 10-07-2024 End: 10-07-2024 ambulatory [facility] Work Phone: Start: 10-07-2024 End: 10-07-2024 Patient encounter procedure [facility] Work Phone: Start: 10-05-2024 End: 10-05-2024 ambulatory [facility] Work Phone: Start: 10-05-2024 End: 10-05-2024 Patient encounter procedure [facility] Work Phone: Start: 10-03-2024 End: 10-03-2024 Office outpatient visit 25 minutes Kristopher Herzog DO Work Phone: [facility] Comment on above: Primary osteoarthrit is of right knee (Primary Dx); Hypercoagulable state (CMS/HCC); Diabetic peripheral neuropathy associated with type 2 diabetes mellitus (CMS/HCC); Primary hypertension (CMS/HCC); Ulcerative colitis without complications, unspecified location (CMS/HCC); jail current use of insulin (CMS/HCC); jail current use of 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; Sacral ulcer, limited to breakdown of skin (CMS/HCC) Start: 10-03-2024 End: 10-03-2024 ambulatory KRISTOPHER HERZOG Not Available Start: 09-09-2024 End: 09-09-2024 ambulatory [facility] Work Phone: Start: 09-09-2024 End: 09-09-2024 Patient encounter procedure [facility] Work Phone: Start: 08-03-2024 End: 08-03-2024 Patient encounter procedure [facility] Work Phone: Start: 08-01-2024 End: 08-01-2024 Bamboo flowsheet Marlon Branham DPM Work Phone: [facility] Start: 08-01-2024 End: 08-01-2024 Bamboo flowsheet Marlon Branham DPM Work Phone: [facility] Start: 08-01-2024 End: 08-01-2024 Office outpatient visit 10 minutes Marlon Branham DPM Work Phone: [facility] Comment on above: 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) (Primary Dx); Onychomycosis; Corns and callosities; Hallux malleus, left; Pain in both feet Start: 08-01-2024 End: 08-01-2024 ambulatory MARLON Thurman YONAS Not Available Start: 07-04-2024 End: 07-04-2024 ambulatory [facility] Work Phone: Start: 07-04-2024 End: 07-04-2024 Patient encounter procedure [facility] Work Phone: Start: 06-29-2024 End: 06-29-2024 ambulatory [facility] Work Phone: Start: 06-29-2024 End: 06-29-2024 Patient encounter procedure [facility] Work Phone: Start: 06-22-2024 End: 06-22-2024 Office outpatient visit 25 minutes Adam Rodriguez 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[employer]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 [employer] Work Phone: [facility] Comment on above: Primary hypertension (CMS/HCC) (Primary Dx); Mixed hyperlipidemia (CMS/HCC); Obstructive sleep apnea syndrome; Peripheral venous insufficiency; Chronic deep vein thrombosis (DVT) of femoral vein of left lower extremity (CMS/HCC); 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 machines and devices; Diabetic peripheral neuropathy associated with type 2 diabetes mellitus (CMS/HCC); Gastroesophageal reflux disease without esophagitis; Hypercoagulable state (CMS/HCC); jail current use of 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; jail current use of insulin (CMS/HCC); OAB (overactive bladder); Class 1 obesity; Spinal stenosis of lumbosacral region; Ulcerative colitis without complications, unspecified location (CMS/HCC); Need for immunization against influenza; Atrophic vaginitis; Bilateral leg edema Start: 06-22-2024 End: 06-22-2024 ambulatory ADAM RODRIGUEZ Not Available Start: 06-17-2024 End: 06-18-2024 Orders Only Adam Rodriguez [employer] Work Phone: [facility] Unsolicited Start: 06-06-2024 End: 06-06-2024 ambulatory [facility] Work Phone: Start: 06-06-2024 End: 06-06-2024 Patient encounter procedure [facility] Work Phone: Start: 05-09-2024 End: 05-09-2024 ambulatory DO Kristopher Chuy Work Phone: [facility] Work Phone: Start: 05-09-2024 End: 05-09-2024 Patient encounter procedure DO Kristophervince Herzog Work Phone: [facility] Work Phone: Start: 04-29-2024 End: 04-29-2024 Office outpatient visit 25 minutes Radha Verduzco DO Work Phone: [facility] Comment on above: Axillary lymphadenop athy (Primary Dx) Start: 04-27-2024 End: 04-27-2024 Bamboo flowsheet Marlon Branham DPM Work Phone: [facility] Start: 04-27-2024 End: 04-27-2024 Bamboo flowsheet Marlon Branham DPM Work Phone: [facility] Start: 04-27-2024 End: 04-27-2024 Patient encounter procedure Marlon Branham DPM Work Phone: [facility] Comment on above: 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) (Primary Dx); Onychomycosis; Corns and callosities; Pain in both feet Start: 04-14-2024 End: 04-14-2024 ambulatory DO Kristopher Herzog Work Phone: [facility] Work Phone: Start: 04-14-2024 End: 04-14-2024 Patient encounter procedure DO Kristopher Chuy Work Phone: [facility] Work Phone: Start: 03-14-2024 End: 03-14-2024 ambulatory DO Kristopher Belloman Work Phone: [facility] Work Phone: Start: 03-14-2024 End: 03-14-2024 Patient encounter procedure DO Kristopher Chuy Work Phone: [facility] Work Phone: Start: 02-17-2024 End: 02-17-2024 ambulatory DO Kristopher Chuy Work Phone: [facility] Work Phone: Start: 02-17-2024 End: 02-17-2024 Patient encounter procedure DO Kristopher Herzog Work Phone: [facility] Work Phone: Start: 02-09-2024 End: 02-09-2024 Emergency department patient visit DO Kristopher Herzog Work Phone: [facility] Work Phone: Start: 01-20-2024 End: 01-20-2024 ambulatory DO Kristophervince Herzog Work Phone: [facility] Work Phone: Start: 01-20-2024 End: 01-20-2024 Patient encounter procedure DO Kristopher Chuy Work Phone: [facility] Work Phone: Start: 01-05-2024 End: 01-05-2024 Patient encounter procedure DO Kristopher Chuy Work Phone: [facility] Work Phone: Start: 12-28-2023 Non-patient / Non-visit DO Preet Herzog Work Phone: [facility] [facility] [employer] [facility] Work Phone: Start: 12-28-2023 End: 12-28-2023 Admission to [facility] day surgery center DO Kristopher Herzog Work Phone: [facility] Work Phone: Start: 12-28-2023 End: 12-28-2023 ambulatory DO Kristophervince Herzog Work Phone: [facility] Work Phone: Start: 12-14-2023 End: 12-14-2023 ambulatory DO Kristopher Belloman Work Phone: [facility] Work Phone: Start: 12-14-2023 End: 12-14-2023 Patient encounter procedure DO Kristopher Herzog Work Phone: [facility] Work Phone: Start: 12-07-2023 End: 12-07-2023 ambulatory DO Kristopher Herzog Work Phone: [facility] Work Phone: Start: 12-07-2023 End: 12-07-2023 Patient encounter procedure DO Kristophervince Herzog Work Phone: [facility] Work Phone: Start: 12-07-2023 End: 12-07-2023 ambulatory DO Kristophervince Herzog Work Phone: [facility] Work Phone: Start: 12-07-2023 End: 12-07-2023 Patient encounter procedure DO Kristopher Herzog Work Phone: [facility] Work Phone: Start: 11-09-2023 End: 11-09-2023 ambulatory DO Kristopher Herzog Work Phone: [facility] Work Phone: Start: 11-09-2023 End: 11-09-2023 Patient encounter procedure DO Kristopher Herzog Work Phone: [facility] Work Phone: Start: 10-05-2023 ([facility] R A/c) [facility] Re peat A/C Lauren Vance [facility] Start: 10-05-2023 End: 10-05-2023 ambulatory DO Kristopher Herzog Work Phone: [employer] Other Start: 10-05-2023 End: 10-05-2023 Discharged Recurring DO Kristopher [facility] Work Phone: Start: 09-29-2023 End: 09-29-2023 ambulatory Lauren Vance Other [employer] Other Start: 09-29-2023 Telephone encounter Lauren Vance [facility] Start: 09-24-2023 Telephone encounter Kimberly Berger LPN [facility] Start: 09-07-2023 ([facility] R A/c) [facility] Re peat A/C [facility] Start: 09-07-2023 End: 09-07-2023 ambulatory Rivers Sanner Other [employer] Other Start: 08-11-2023 ([facility] R A/c) [facility] Start: 08-11-2023 End: 08-11-2023 ambulatory Rivers Sanner Other [employer] Other Start: 07-14-2023 ([facility] R A/c) [facility] Re peat A/C [facility] Start: 07-14-2023 End: 07-14-2023 ambulatory Rivers Sanner Other [employer] Other Start: 06-15-2023 ([facility] R A/c) [facility] Re peat A/C [facility] Start: 06-15-2023 End: 06-15-2023 ambulatory Tita Roberts Other [employer] Other Start: 06-03-2023 End: 06-03-2023 ambulatory DO Kristopher Herzog Work Phone: [facility] Work Phone: Start: 06-03-2023 End: 06-03-2023 Patient encounter procedure DO Kristopher Herzog Work Phone: [facility] for [facility] Car Start: 05-25-2023 Registered Recurring DO Manuela Belloman Work Phone: [facility] Work Phone: Start: 04-30-2023 ([facility] R A/c) [facility] Re peat A/C Lauren Fitt [facility] Start: 04-30-2023 End: 04-30-2023 ambulatory Lauren Fitt Other [employer] Other Start: 04-08-2023 ([facility] R A/c) [facility] Re peat A/C Kiersten Goodridge [facility] Start: 04-08-2023 End: 04-08-2023 ambulatory Kiersten Titus Other [employer] Other Start: 03-23-2023 ([facility] R A/c) [facility] Re peat A/C Kiersten Titus [facility] Start: 03-23-2023 End: 03-23-2023 ambulatory Kiersten Goodridge Other [employer] Other Start: 03-11-2023 ([facility] R A/c) [facility] Re peat A/C Kiersten Titus [facility] Start: 03-11-2023 End: 03-11-2023 ambulatory Kiersten Goodridge Other [employer] [facility] [employer] Other Start: 02-23-2023 ([facility] R A/c) [facility] Re peat A/C Kiersten Titus [facility] Start: 02-23-2023 End: 02-23-2023 ambulatory Kiersten Titus Other [employer] [facility] [employer] Other Start: 12-17-2022 End: 12-17-2022 ambulatory DO Kristopher Herzog Work Phone: [facility] Work Phone: Start: 12-17-2022 End: 12-17-2022 Departed Referred DO Kristopher Herzog Work Phone: [facility]-Lab [facility] Work Phone: Start: 12-15-2022 ambulatory Facility:[id number] Start: 12-13-2022 End: 12-15-2022 Evaluation and management of inpatient DO Kristopher Herzog Work Phone: [facility] [place] [facility] Work Phone: Start: 12-13-2022 observation encounter DO Wilfrido Herzog Work Phone: [facility] Work Phone: Start: 12-10-2022 ([facility] R A/c) [facility] Re peat A/C Kiersten Titus [facility] Start: 12-10-2022 End: 12-10-2022 ambulatory Kierstenfredi Qureshi Other [employer] Other Start: 12-10-2022 Registered Recurring DO Manuela Herzog Work Phone: [facility] Work Phone: Start: 12-01-2022 End: 12-01-2022 ambulatory DO Kristopher Herzog Work Phone: [facility] Work Phone: Start: 12-01-2022 End: 12-01-2022 Patient encounter procedure DO Kristopher Herzog Work Phone: [facility] Work Phone: Start: 11-12-2022 ([facility] R A/c) [facility] Re peat A/C Kiersten Titus [facility] Start: 11-12-2022 End: 11-12-2022 ambulatory Kiersten Llamasber Other [employer] Other Start: 11-12-2022 Registered Recurring DO Manuela Herzog Work Phone: [facility] Work Phone: Start: 10-15-2022 ([facility] R A/c) [facility] Re peat A/C Kiersten Goodridge [facility] Start: 10-15-2022 End: 10-15-2022 ambulatory Kiersten Titus Other [employer] Other Start: 09-29-2022 End: 09-29-2022 ambulatory Lauren Paredest Other [employer] Other Start: 09-29-2022 Telephone encounter Lauren Vance [facility] Start: 09-23-2022 End: 09-23-2022 Emergency department patient visit DO Kristopher Herzog Work Phone: [facility] Work Phone: Start: 09-17-2022 ([facility] R A/c) [facility] Re peat A/C Kiersten Goodridge [facility] Start: 09-17-2022 End: 09-17-2022 ambulatory Kiersten Titus Other [employer] Other Start: 09-17-2022 Registered Recurring DO Manuela Herzog Work Phone: [facility] Work Phone: Start: 09-01-2022 End: 09-01-2022 ambulatory Lauren Paredest Other [employer] Other Start: 09-01-2022 Telephone encounter Lauren Vance [facility] Start: 08-20-2022 ([facility] R A/c) [facility] Re peat A/C Kiersten Titus [facility] Start: 08-20-2022 End: 08-20-2022 ambulatory Kiersten Titus Other [employer] Other Start: 07-24-2022 ([facility] R A/c) [facility] Re peat A/C Olu Anju [facility] Start: 07-24-2022 End: 07-24-2022 ambulatory Olu Rene Other [employer] Other Start: 07-16-2022 End: 07-16-2022 Emergency department patient visit DO Kristopher Herzog Work Phone: [facility] Start: 06-26-2022 ([facility] R A/c) [facility] Re peat A/C Lauren Reggiet [facility] Start: 06-26-2022 End: 06-26-2022 ambulatory Lauren Reggiet Other [employer] Other Start: 06-26-2022 Registered Recurring DO Manuela Herzog Work Phone: [facility] Start: 06-23-2022 End: 06-23-2022 ambulatory DO Kristopher Herzog Work Phone: [facility] Work Phone: Start: 06-23-2022 End: 06-23-2022 Patient encounter procedure DO Kristopher Herzog Work Phone: [facility]Ul[facility]ound [facility] [place] Start: 06-09-2022 End: 06-09-2022 Patient encounter procedure DO Kristopher Herzog Work Phone: [facility] Car Start: 06-05-2022 ([facility] R A/c) [facility] Re peat A/C Lauren Fitt [facility] Start: 06-05-2022 End: 06-05-2022 ambulatory Tang Mcclellan Other [employer] Other Start: 06-05-2022 Telephone encounter Tang Santana [facility] Start: 06-05-2022 Registered Recurring DO Manuela Herzog Work Phone: [facility] [facility] Start: 06-04-2022 End: 06-04-2022 Discharged Recurring DO Kristopher Herzog Work Phone: [facility]-Infusion Therapy - O/P Start: 05-29-2022 End: 05-29-2022 ambulatory DO Kristopher Herzog Work Phone: [facility] Work Phone: Start: 05-29-2022 End: 05-29-2022 Patient encounter procedure DO Kristopher Herzog Work Phone: [facility] [place] Start: 05-29-2022 Registered Recurring DO Manuela Herzog Work Phone: [facility]Infusion Therapy - O/P Start: 05-22-2022 Registered Recurring DO Manuela Herzog Work Phone: [facility] Start: 05-22-2022 ([facility] R A/c) [facility] Re peat A/C Lauren Fitt [facility] Start: 05-22-2022 End: 05-22-2022 ambulatory Lauren Fitt Other [employer] Other Start: 05-20-2022 End: 05-20-2022 Patient encounter procedure DO Kristopher Herzog Work Phone: [facility] [place] Start: 05-06-2022 ([facility] R A/c) [facility] Re peat A/C Lauren Fitt [facility] Start: 05-06-2022 End: 05-06-2022 ambulatory Lauren Fitt Other [employer] Other Start: 04-08-2022 ([facility] R A/c) [facility] Re peat A/C Lauren Fitt [facility] Start: 04-08-2022 End: 04-08-2022 ambulatory Lauren Fitt Other [employer] Other Start: 03-13-2022 ([facility] R A/c) [facility] Re peat A/C Lauren Fitt [facility] Start: 03-13-2022 End: 03-13-2022 ambulatory Lauren Fitt Other [employer] Other Start: 02-28-2022 End: 02-28-2022 Patient encounter procedure DO Kristopher Herzog Work Phone: [facility] Start: 02-27-2022 ([facility] R A/c) [facility] Re peat A/C Lauren Fitt [facility] Start: 02-27-2022 End: 02-27-2022 ambulatory Lauren Fitt Other [employer] Other Start: 02-26-2022 End: 02-26-2022 Patient encounter procedure DO Kristopher Polo Phone: [facility]Pre[facility] Start: 02-17-2022 ([facility] R A/c) [facility] Re peat A/C Lauren Fitt [facility] Start: 02-17-2022 End: 02-17-2022 ambulatory Lauren Fitt Other [employer] Other Start: 02-11-2022 End: 02-11-2022 ambulatory Antonio Thompson Other [employer] Other Start: 02-11-2022 Telephone encounter Antonio Thompson [facility] Start: 01-28-2022 End: 01-28-2022 ambulatory Tang Mcclellan Other [employer] Other Start: 01-28-2022 Office outpatient vi sit 15 minutes Tang Mcclellan [facility] Start: 01-21-2022 ([facility] R A/c) [facility] Re peat A/C Lauren Fitt [facility] Start: 01-21-2022 End: 01-21-2022 ambulatory Lauren Fitt Other [employer] Other Start: 01-09-2022 End: 01-09-2022 ambulatory Tang Henrietta Other [employer] Other Start: 01-09-2022 Telephone encounter Tang Santana [facility] Start: 01-06-2022 ([facility] R A/c) [facility] Re peat A/C Lauren Fitt [facility] Start: 01-06-2022 End: 01-06-2022 ambulatory Lauren Fitt Other [employer] Other Start: 12-23-2021 ([facility] R A/c) [facility] Re peat A/C Lauren Fitt [facility] Start: 12-23-2021 End: 12-23-2021 ambulatory Lauren Fitt Other [employer] Other Start: 12-11-2021 ([facility] R A/c) [facility] Re peat A/C Lauren Fitt [facility] Start: 12-11-2021 End: 12-11-2021 ambulatory Lauren Fitt Other [employer] Other Start: 11-28-2021 End: 11-28-2021 ambulatory Tang Mcclellan Other [employer] Other Start: 11-28-2021 Telephone encounter Tang Santana [facility] Start: 11-27-2021 ([facility] R A/c) [facility] Re peat A/C Lauren Fitt [facility] Start: 11-27-2021 End: 11-27-2021 ambulatory Lauren Fitt Other [employer] Other Start: 11-25-2021 End: 11-25-2021 ambulatory Lauren Fitt Other [employer] Other Start: 11-25-2021 Telephone encounter Lauren Fitt [facility] Start: 11-14-2021 End: 11-14-2021 ambulatory Lauren Fitt Other [employer] Other Start: 11-14-2021 Telephone encounter Lauren Fitt [facility] Start: 11-12-2021 ([facility] R A/c) [facility] Re peat A/C Lauren Fitt [facility] Start: 11-12-2021 End: 11-12-2021 ambulatory Lauren Fitt Other [employer] Other Start: 10-31-2021 ([facility] R A/c) [facility] Re peat A/C Lauren Fitt [facility] Start: 10-31-2021 End: 10-31-2021 ambulatory Lauren Fitt Other [employer] Other Start: 10-14-2021 ([facility] R A/c) [facility] Re peat A/C Lauren Fitt [facility] Start: 10-14-2021 End: 10-14-2021 ambulatory Lauren Fitt Other [employer] Other Start: 10-08-2021 End: 10-08-2021 ambulatory Lauren Fitt Other [employer] Other Start: 10-08-2021 Telephone encounter Lauren Fitt [facility] Start: 09-30-2021 ([facility] R A/c) [facility] Re peat A/C Lauren Fitt [facility] Start: 09-30-2021 End: 09-30-2021 ambulatory Lauren Fitt Other [employer] Other Start: 09-12-2021 ([facility] R A/c) [facility] Re peat A/C Lauren Fitt [facility] Start: 09-12-2021 End: 09-12-2021 ambulatory Lauren Fitt Other [employer] Other Start: 08-29-2021 ([facility] R A/c) [facility] Re peat A/C Lauren Fitt [facility] Start: 08-29-2021 End: 08-29-2021 ambulatory Lauren Fitt Other [employer] Other Start: 08-15-2021 ([facility] R A/c) [facility] Lauren Fitt [facility] Start: 08-15-2021 End: 08-15-2021 ambulatory Lauren Fitt Other [employer] Other Start: 08-01-2021 ([facility] R A/c) [facility] Re peat A/C Lauren Fitt [facility] Start: 08-01-2021 End: 08-01-2021 ambulatory Lauren Fitt Other [employer] Other Start: 07-15-2021 ([facility] R A/c) [facility] Re peat A/C Lauren Fitt [facility] Start: 07-15-2021 End: 07-15-2021 ambulatory Lauren Fitt Other [employer] Other Start: 07-03-2021 ([facility] R A/c) [facility] Re peat A/C Lauren Fitt [facility] Start: 07-03-2021 End: 07-03-2021 ambulatory Lauren Fitt Other [employer] Other Start: 07-03-2021 Telephone encounter Antonio Peña [facility] Start: 06-19-2021 ([facility] R A/c) [facility] Re peat A/C Lauren Fitt [facility] Start: 05-28-2021 ([facility] R A/c) [facility] Re peat A/C Lauren Fitt [facility] Start: 05-21-2021 Telephone encounter Lauren Reggiet [facility] Start: 05-15-2021 ([facility] R A/c) [facility] Re peat A/C Lauren Fitt [facility] Start: 05-15-2021 Telephone encounter Lauren Fitt [facility] Procedures Date Procedure Procedure Detail Performing Clinician Start: 03-07-2025 Radex foot complete minimum 3 views Marlon Branham DPM Work Phone: Start: 02-16-2025 Radex foot complete minimum 3 views Marlon Branham DPM Work Phone: Start: 02-13-2025 Radiologic examinati on knee 3 views Venita Marques [employer] Work Phone: Start: 01-11-2025 ALL CBC WITH AUTO DIFF Kristopher Herzog DO Work Phone: Start: 01-05-2025 ALL BASIC METABOLIC PANEL Kristopher Herzog DO Work Phone: Start: 12-07-2024 End: 12-07-2024 Mammography Kristopher Herzog DO Work Phone: Start: 06-17-2024 Comprehensive metabo lic panel Adam Ephraim Rodriguez [employer] Work Phone: Start: 06-17-2024 Lipid panel Adam Ephraim Rodriguez [employer] Work Phone: Start: 06-17-2024 SPECIMEN STATUS REPORT Adam Ye Sarah [employer] Work Phone: Start: 04-29-2024 Mammography Radha It [...] X-ray of right femur DO Kristopher Herzog [employer] Phone: Start: 06-23-2022 Duplex scan of lower limb veins DO Kristopher Herzog Work Phone: Start: 06-09-2022 Ultrasonography of l eft breast DO Kristopher Herzog [employer] Phone: Start: 02-28-2022 Esophageal manometry DO Kristopher Herzog [employer] Phone: Start: 07-05-2016 Colonoscopy Kimberly Ramirez blake LPN Plan of Treatment Date Care Activity Detail Author Start: 12-27-2033 Screening for malign ant neoplasm of colon [facility] [employer] Start: 07-05-2026 Screening for malign ant neoplasm of colon [facility] Start: 01-09-2026 Medicare Annual Well ness (AWV) Medicare Annual Wellness (AWV) [facility] Start: 12-21-2025 End: 12-21-2025 Patient encounter procedure [facility] Start: 12-07-2025 Screening for malign ant neoplasm of breast Mammogram [facility] Start: 07-26-2025 End: 07-26-2025 Patient encounter procedure 07/26/2025 8:00 AM EST Procedure Visit [facility] [address] [place] [address] Marlon Branham DPM [address] [place] [address] [facility] Start: 06-17-2025 Urine screening for protein Diabetes: Urine Protein Screening [facility] Start: 06-07-2025 End: 06-07-2025 Patient encounter procedure [facility] Start: 06-02-2025 Glaucoma screening Diabetes: R etinopathy Screening [facility] Start: 05-10-2025 End: 05-10-2025 Patient encounter procedure [facility] Start: 04-29-2025 Screening for malign ant neoplasm of breast Mammogram [facility] Start: 04-24-2025 Influenza vaccination Influenza Vacc ine (#1) [facility] Start: 04-20-2025 End: 04-20-2025 Patient encounter procedure [facility] [place] [facility] Comment on above: Arrived Start: 04-19-2025 End: 04-19-2025 Patient encounter procedure [facility] Start: 04-11-2025 Hemoglobin A1c measurement Diabetes: Hemoglobin A1C [facility] Start: 04-05-2025 End: 04-05-2025 Patient encounter procedure [facility] [place] [facility] Comment on above: Arrived Start: 03-22-2025 End: 03-22-2025 Patient encounter procedure [facility] Comment on above: Arrived Start: 03-20-2025 End: 03-20-2025 Patient encounter procedure 03/20/2025 4:00 PM EDT Office Visit [facility] [address] [place] [id number] Brandy Salmeron DO [address] [place] [id number] [facility] Start: 03-14-2025 End: 03-14-2025 Patient encounter procedure 03/14/2025 9:00 AM EDT Office Visit [facility] [address] [place] [id number] Branham, Marlon H, DPM [address] [place] [address] [facility] Start: 03-09-2025 End: 03-09-2025 Patient encounter procedure [facility] Comment on above: Acute pain of left k nee (Primary Dx); Primary osteoarthritis of left knee Start: 03-07-2025 End: 03-07-2025 Patient encounter procedure [facility] Comment on above: Arrived Start: 03-04-2025 Urine screening for protein Diabetes: Urine Protein Screening [facility] Start: 02-01-2025 End: 02-01-2025 Patient encounter procedure 02/01/2025 8:30 AM EDT Procedure Visit [facility] [address] [place] [address] Marlon Branham Olman, DPM [address] [place] [address] [facility] Start: 01-09-2025 End: 01-09-2025 Patient encounter procedure [facility] Comment on above: Arrived Start: 12-27-2024 Hemoglobin A1c measurement Diabetes: Hemoglobin A1C [facility] Start: 12-16-2024 End: 02-15-2026 MG Breast - bilateral Diagnostic Bilateral diagnostic mammogram Imaging Routine Axillary lymphadenopathy H/O diagnostic mammography Expected: 12/16/2024, Expires: 02/15/2026 [facility] Work Phone: Comment on above: Expected: 12/16/2024 , Expires: 02/15/2026 Start: 12-16-2024 End: 12-16-2025 US UPPER EXTREMITY NON-VASC LEFT US UPPER EXTREMITY NON-VASC LEFT Imaging Routine Axillary lymphadenopathy H/O diagnostic mammography Expected: 12/16/2024, Expires: 12/16/2025 [facility] Comment on above: Expected: 12/16/2024 , Expires: 12/16/2025 Start: 12-16-2024 End: 12-16-2024 Patient encounter procedure 12/16/2024 9:00 AM EDT Office Visit [facility] [address] [place] [id number] Radha Verduzco, DO [address] [place] [address] [facility] Start: 12-14-2024 End: 12-14-2024 Patient encounter procedure 12/14/2024 8:45 AM EDT Office Visit [facility] [address] [address] [place] [address] Kristopher Herzog, DO [address] [place] [address] Arrived [facility] Comment on above: Arrived Start: 12-06-2024 End: 06-29-2025 DBT Breast - bilateral diagnostic Bilateral diagnostic mammogram with tomosynthesis Imaging Routine Axillary lymphadenopathy Expected: 12/06/2024 (Approximate), Expires: 06/29/2025 [facility] Work Phone: Comment on above: Expected: 12/06/2024 (Approximate), Expires: 06/29/2025 Start: 12-06-2024 Screening for malign ant neoplasm of breast Mammogram [facility] Start: 12-06-2024 End: 04-29-2025 US UPPER EXTREMITY NON-VASC LEFT US UPPER EXTREMITY NON-VASC LEFT Imaging Routine Axillary lymphadenopathy Expected: 12/06/2024, Expires: 04/29/2025 [facility] Comment on above: Expected: 12/06/2024 , Expires: 04/29/2025 Start: 12-02-2024 Medicare Annual Well ness (AWV) Medicare Annual Wellness (AWV) [facility] Start: 10-31-2024 End: 10-31-2024 Patient encounter procedure 10/31/2024 8:00 AM EDT Procedure Visit [facility] [address] [place] [address] Marlon Branham DPM [address] [place] [address] [facility] Start: 10-25-2024 End: 01-25-2025 CT Head WO contrast CT head wo IV contrast Imaging Routine Nonintractable headache, unspecified chronicity pattern, unspecified headache type Neck pain Paresthesia of left arm Numbness of fingers Expected: 10/25/2024 (Approximate), Expires: 01/25/2025 [facility] Comment on above: Expected: 10/25/2024 (Approximate), Expires: 01/25/2025 Start: 10-25-2024 End: 10-25-2025 XR Cervical spine 2 or 3 Views [facility] Work Phone: Comment on above: Expected: 10/25/2024 , Expires: 10/25/2025 Start: 10-03-2024 End: 10-03-2024 Patient encounter procedure 10/03/2024 8:45 AM EST Office Visit [facility] [address] [place] [phone] Kristopher Herzog DO [address] [place] [address] [facility] Start: 09-24-2024 End: 12-21-2024 Basic metabolic 1998 panel - Serum or Plasma Basic metabolic panel Lab Routine Primary hypertension (CMS/HCC) Diabetic peripheral neuropathy associated with type 2 diabetes mellitus ([facility]/HCC) Expected: 09/24/2024, Expires: 12/21/2024 [facility] Comment on above: Expected: 09/24/2024 , Expires: 12/21/2024 Start: 09-24-2024 End: 12-21-2024 Hemoglobin a1c with eag Hemoglobin a1c with eag Lab Routine Diabetic peripheral neuropathy associated with type 2 diabetes mellitus (CMS/HCC) Expected: 09/24/2024, Expires: 12/21/2024 [facility] Work Phone: Comment on above: Expected: 09/24/2024 , Expires: 12/21/2024 Start: 09-23-2024 End: 09-23-2024 Patient encounter procedure 09/23/2024 8:30 AM EST Office Visit [facility] [address] [place] [address] Kristopher Herzog, DO [address] [place] [address] [facility] Start: 09-17-2024 Hemoglobin A1c measurement Diabetes: Hemoglobin A1C [facility] Start: 09-08-2024 Screening for malign ant neoplasm of colon FOBT [facility] Start: 08-01-2024 End: 08-01-2024 Patient encounter procedure [facility] Comment on above: Arrived Start: 06-22-2024 End: 06-22-2024 Patient encounter procedure 06/22/2024 8:45 AM EDT Office Visit [facility] [address] [place] [address] Kristopher Herzog, DO [address] [place] [address] [facility] Start: 06-09-2024 End: 06-09-2024 Patient encounter procedure 06/09/2024 9:00 AM EDT Office Visit [facility] [address] [place] [address] Kristopher Herzog, DO [address] [place] [address] [facility] Start: 06-04-2024 Hemoglobin A1c measurement Diabetes: Hemoglobin A1C [facility] Start: 04-29-2024 End: 04-29-2024 Patient encounter procedure 04/29/2024 9:00 AM EDT Office Visit [facility] [address] [place] [address] Radha Verduzco, DO [address] [place] [address] [facility] Start: 04-24-2024 Influenza vaccination Influenza Vacc ine (#1) [facility] Start: 01-06-2024 End: 01-06-2024 Patient encounter procedure 01/06/2024 10:45 AM EDT [facility] [address] [place] [phone] Kristopher Herzog, DO [address] [place] [address] [facility] Start: 12-31-2023 Medicare Annual Well ness (AWV) Medicare Annual Wellness (AWV) [facility] Start: 12-28-2023 [facility] Start: 12-21-2023 End: 12-21-2023 Patient encounter procedure 12/21/2023 1:15 PM EDT Office Visit [facility] [address] [place] [phone] Radha Verduzco, DO [address] [place] [address] [facility] Start: 12-16-2023 End: 12-16-2023 Patient encounter procedure 12/16/2023 10:15 AM EDT [facility] [address] [place] [phone] Marlon Branham DPM [address] [place] [address] [facility] Start: 12-04-2023 Hemoglobin A1c measurement Diabetes: Hemoglobin A1C [facility] Start: 12-02-2023 Screening for malign ant neoplasm of breast Mammogram [facility] Start: 10-13-2023 End: 10-13-2023 Patient encounter procedure 10/13/2023 2:45 PM EST Office Visit [facility] [address] [place] [phone] Branham, Marlon H, DPM [address] [place] [address] [facility] Start: 12-15-2022 [facility] Start: 12-14-2022 Blood chemistry [facility] Start: 12-14-2022 End: 12-14-2022 [facility] Start: 12-13-2022 [facility] Start: 12-13-2022 Computed tomography of abdomen and pelvis with contrast CT abdomen pelvis w con [facility] Start: 12-13-2022 End: 12-13-2022 [facility] Start: 12-13-2022 Physical therapy procedure [facility] Start: 12-13-2022 Referral to occupati onal therapist [facility] Start: 12-13-2022 Hospital admission [facility] Start: 09-23-2022 Bacteria identified in Urine by Culture [facility] Start: 06-23-2022 Duplex scan of lower limb veins US venous duplex LE RT [facility] Start: 06-23-2022 US Lower extremity v ein - right [facility] Start: 02-28-2022 [facility] Start: 05-18-2020 Screening for malign ant neoplasm of colon FIT [facility] Start: 1950 Screening for malign ant neoplasm of colon [facility] Patient Education [facility] Work Phone: Patient referral [facility] Work Phone: [facility] Immunizations Immunization Date Immunization Notes Care Provider [facility] 06-22-2024 Seasonal trivalent influenza vaccine, adjuvanted, preservative free Adam Rodriguez [employer] Work Phone: [facility] 06-22-2024 influenza virus vaccine, unspecified formulation Venita Marques [employer] Work Phone: [facility] 10-08-2023 RSV, recombinant, protein subunit RSVpreF, adjuvant reconstitu, 120mcg/0.5mL, PF (Arexvy) Marlon Branham DPM Work Phone: [facility] 05-29-2023 Influenza, High-dose Seasonal, Quadrivalent, Preservative Free Kimberly Nokomis [employer] [facility] 05-29-2023 influenza virus vaccine, unspecified formulation Marlon Branham DPM Work Phone: [facility] 05-27-2023 influenza virus vaccine, unspecified formulation Kimberly Nokomis [employer] [facility] 05-21-2022 influenza, high dose seasonal, preservative-free Kimberly Nokomis [employer] [facility] 12-04-2021 Pneumococcal Conjuga te PCV 20 Kimberly Nokomis [employer] [facility] 05-31-2021 influenza, high dose seasonal, preservative-free Kimberly Nokomis [employer] [facility] 11-14-2020 COVID-19 mRNA-1273 (Moderna) DO Kristopher Herzog Work Phone: [facility] 10-17-2020 COVID-19 mRNA-1273 (Moderna) DO Kristopher Herzog Work Phone: [facility] 07-26-2020 Seasonal trivalent influenza vaccine, adjuvanted, preservative free Kimberly Nokomis [employer] [facility] 12-26-2019 KENALOG - 10 mg Lauren Fitt Other [employer] [facility] [employer] Other 08-22-2019 KENALOG - 10 mg Lauren Fitt Other [employer] Other 05-17-2019 Seasonal trivalent influenza vaccine, adjuvanted, preservative free Kimberly Nokomis [employer] [facility] 01-14-2019 pneumococcal polysaccharide vaccine, 23 valent Lauren Fitt Other [employer] Other 11-05-2018 KENALOG - 10 mg Lauren Fitt Other [employer] Other 05-14-2018 influenza virus vaccine, unspecified formulation DO Kristopher Herzog Work Phone: [facility] 05-14-2018 influenza, high dose seasonal, preservative-free Lauren Fitt Other [facility] [employer] Other 06-12-2017 influenza virus vaccine, unspecified formulation DO Kristopher Herzog Work Phone: [facility] 06-12-2017 influenza, injectabl e, quadrivalent, preservative free Kimberly Nokomis [employer] [facility] 06-12-2017 influenza, high dose seasonal, preservative-free Lauren Fitt Other [facility] [employer] Other 06-26-2016 influenza virus vaccine, unspecified formulation DO Kristopher Herzog Work Phone: [facility] 06-26-2016 influenza, high dose seasonal, preservative-free Lauren Fitt Other [facility] [employer] Other 07-06-2015 pneumococcal conjuga te vaccine, 13 valent Kimberly Nokomis [employer] [facility] 06-15-2015 seasonal influenza, intradermal, preservative free Kimberly Nokomis [employer] [facility] 10-27-2014 KENALOG - 10 mg Lauren Fitt Other [facility] [employer] Other 10-15-2014 KENALOG - 10 mg Lauren Fitt Other [facility] [employer] Other 05-29-2014 influenza virus vaccine, unspecified formulation DO Kristopher Herzog Work Phone: [facility] 05-29-2014 influenza, high dose seasonal, preservative-free Lauren Fitt Other [facility] [employer] Other 08-24-2013 zoster vaccine, live Kimberly [employer] LP N [facility] 04-26-2013 influenza virus vaccine, unspecified formulation DO Kristopher Herzog Work Phone: [facility] 04-26-2013 influenza, seasonal, injectable, preservative free Kimberly Nokomis [employer] [facility] 04-26-2013 influenza, high dose seasonal, preservative-free Lauren Vance Other [employer] [facility] [employer] Other 04-26-2013 influenza, injectabl e, quadrivalent, preservative free Kiersten Qureshi Other [employer] Other 07-28-2012 seasonal influenza, intradermal, preservative free Kimberly Nokomis [employer] [facility] 06-30-2011 pneumococcal polysaccharide vaccine, 23 valent Kimberly Nokomis [employer] [facility] 05-20-2011 seasonal influenza, intradermal, preservative free Kimberly Nokomis [employer] [facility] Payers Date Payer Category Payer Unknown [id number] 2023 Self-pay [id number] 2021 Medicare [id number] 2021 Medicare (Managed Care) 1.2. [id number] 2021 Unknown [employer] [id number] 2021-Present [address] [place] [address] [id number]. [id number] 2021 Unknown [id number] 2.16.840.1.918058.19 1950 Unknown [id number] 2.16.840.1.481709.3.579.2. 356 1950 Unknown [id number] 2.16.840.1.259651.3.579.2. 1259 1950 Unknown [id number] 2.16.840.1.441996.3.579.2. 1259 1951 Unknown [id number] 2.16.840.1.692618.3.579.2. 1259 1951 Unknown [id number] 2.16.840.1.412595.3.579.2. 125 1951 Unknown [id number] 2.16.840.1.364727.3.579.2. 1259 1951 Unknown [id number] 2.16.840.1.757654.3.579.2. 125 1951 Unknown [id number] 2.16.840.1.983747.3.579.2. 125 1951 Unknown [id number] 2.16.840.1.783329.3.579.2. 1258 1951 Unknown [id number] 2.16.840.1.938792.3.579.2. 1258 1951 Unknown [id number] 2.16.840.1.729726.3.579.2. 125 1951 Unknown [id number] 2.16.840.1.024419.3.579.2. 1258 1951 Unknown [id number] 2.16.840.1.433366.3.579.2. 1258 1951 Unknown [id number] 2.16.840.1.527359.3.579.2. 125 1951 Unknown [id number] 2.16.840.1.954673.3.579.2. 125 1951 Unknown [id number] 2.16.840.1.664138.3.579.2. 125 1951 Unknown [id number] 2.16.840.1.760805.3.579.2. 125 1951 Unknown [id number] 2.16.840.1.833399.3.579.2. 125 1951 Unknown [id number] 2.16.840.1.824898.3.579.2. 1259 1951 Unknown [id number] 2.16.840.1.355454.3.579.2. 1259 1951 Unknown [id number] 2.16.840.1.922746.3.579.2. 1259 1951 Unknown [id number] 2.16.840.1.129415.3.579.2. 1259 1951 Unknown [id number] 2.16.840.1.772279.3.579.2. 1259 1951 Unknown [id number] 2.16.840.1.137807.3.579.2. 1259 1951 Unknown [id number] 2.16.840.1.223059.3.579.2. 1259 Medicare Medicare [id number] Medicare Anthem MCR PFFS [id number] Unknown HCAP/HFA/FAP Active [id number] Unknown [id number] 2.16.840.1.279073.3.579.2. 531 Unknown [id number] 2.16840.1.639362.3.579.2. 531 Unknown [id number] 2.16840.1.761479.3.579.2. 531 Social History Date Type Detail Facility Start: 09-08-2023 End: 01-09-2025 Sex Assigned At [facility] [employer] Other Start: 11-23-2021 End: 10-07-2024 Tobacco smoking status NHIS Ex-smoker (finding) [facility] Start: 1950 Sex Assigned At Female [facility] Start: 07-16-2022 End: 09-08-2023 Tobacco smoking status NHIS Never smoked tobacco (finding) [facility] History of tobacco use Passive smoker [facility] Start: 09-08-2023 Tobacco use and exposure Smokeless tobacco non-user [facility] Start: 09-16-2023 End: 05-22-2025 Alcohol intake Lifetime non-drinker (finding) [facility] [...] Start: 07-04-2024 End: 02-01-2025 Sex Female (finding) [facility] Medical Equipment Procedure Code Equipment Code Equipment [...] FDA Start: 06-18-2017 PLATE WELLS 2 LE KIAAR 32MM DEPUY FDA Start: 06-18-2017 SCREW SELF [...] SELF DRILL ING 3.8X14MM FDA Start: 06-18-2017 [id number] Start: 08-20-2022 1 each by Other route in the morning and 1 each at noon and 1 each in the evening and 1 each before bedtime. [id number] USE TO TEST BLOO D SUGAR 3 TIMES DAILY DIRECTED [id number] Start: 06-13-2023 USE TO TEST BLOO D SUGAR THREE TIMES A DAY DIRECTED [id number] Start: 06-13-2023 BONE 5MM DUO FDA Start: [...] D SUGAR THREE TIMES A DAY DIRECTED [id number] Start: 11-09-2023 USE TO TEST BLOO D SUGAR 3 TIMES DAILY DIRECTED [id number] Start: 11-09-2023 BONE 5MM DUO FDA Start: [...] D SUGAR 3 TIMES A DAY DIRECTED [id number] Start: 01-26-2025 Inject 1 each un momo the skin in the morning and 1 each before bedtime. Use as instructed. [id number] Start: 01-30-2025 BONE 5MM DUO FDA Start: [...] [facility] ionnaire 2 item (PHQ-2) [Reported] [facility] 12-15-2022 Functional status Patient at Baseline [facility] Work Phone: [facility] Mental Status Date Assessment Result Facility 12-15-2022 Cognitive function Cognitive Sta tus Patient at Baseline [facility] Work Phone: Clinical Notes 05-15-2021 to 05-22-2025 Marlon Branham DPM - 05/22/2025 9:45 AM EDSis Branham DPM - 04/20/2025 8:15 AM Oliva Branham DPM - 04/05/2025 9:30 AM Oliva Branham DPM - 03/22/2025 11:15 AM EDT Note Date & Type Note Facility 05-22-2025 History of Present illness Narrative Images from the original note were not included. HPI: Patient presents to clinic for diabetic nailcare. They were diagnosed with diabetes chronic. She states that they has pain in the feet. There is pain related to the toenails, especially with shoe gear and pressure. They have difficulty with trimming the nails due to trouble reaching them and because of the thickness in the nail. Patient has problems with slow healing wounds or sores on the feet. Patient does have burning, tingling and numbness in the feet. Patient's PCP is Karlos Morgan MD. Date of Last visit: 05/16/25. No other pedal complaints at this time. Nicol Frances presents today for post-op appointment of correction right hallux deformity. Surgery was performed on 03/03/[address] [facility]. Patient complains of pain 0. Current [...] FOOT EXAM: Date of Last Foot Exam 05/22/25 Vascular: DORSALIS PEDIS PULSE:2/4, bilaterally. POSTERIOR TIBIAL [...] plantar hallux and 2nd digit are resolved. There is still some movement in the IPJ so we will continue with the splinting to keep the toe in a corrected position. HYPERKERATOSIS: Location: distal aspect of the left [...] Surgery follow-up examination Plan: Surgery Follow-up Examination: Advised patient that she can continue with the splinting or padding to the 1st webspace. The ulceration/wound dehiscence to the right foot is healed. There is still some movement to the IPJ so this is not 100% healed and I do not want to allow the toe to deviated laterally to increase the deformity. She is not having any pain to the area and states there is no recurrence of ulceration to the hallux or 2nd digit. She does have pain in the other toes due to the hammertoes and stiffness. Diabetes, Onychomycosis: 1. Nails were debrided in length and thickness by manual and mechanical means. 2. Advised patient on continued proper diabetic foot care including daily monitoring of their feet for any new complaints or concerns that may arise. 3. Discussed importance of tight blood sugar control to prevent future complications. 4. RTC: 9-12 weeks or as needed if problems arise. documented in this encounter [facility] 04-20-2025 History of Present illness Narrative Images from the original note were not included. HPI: Nicol Frances presents today for post-op appointment of correction right hallux deformity. Surgery was performed on 03/03/[address] [facility]. Patient complains of pain 0. Current [...] we can recheck. documented in this encounter [facility] 04-05-2025 History of Present illness Narrative Images from the original note were not included. HPI: Nicol Frances presents today for post-op appointment of correction right hallux deformity. Surgery was performed on 03/03/[address] [facility]. Patient complains of pain 0. Current [...] did also fabricate a toe spacer from [email or web address] to help prevent rubbing and dislocation of the toe. 6. Patient was advised if they notice any worsening to the ulceration site including signs of infection, N/F/V/C to call the office for an urgent appointment or go to the nearest emergency room. 7. RTC: 1 week. documented in this encounter [facility] 03-22-2025 History of Present illness Narrative Images from the original note were not included. HPI: Nicol Frances presents today for post-op appointment of correction right hallux deformity. Surgery was performed on 03/03/[address] [facility]. Patient complains of pain 0. Current [...] place. Updated orders placed for HHC with [facility]. She was also advised on use of [...] RTC: 3-4 weeks. documented in this encounter [facility] 03-14-2025 History of Present illness Narrative Images from the original note were not included. HPI: Nicol Frances presents today for post-op appointment of correction right hallux deformity. Surgery was performed on 03/03/[address] [facility]. Patient complains of pain 0. Current [...] I will order dressing changes with her [facility] nurse. Patient was also advised on beginning passive range of motion exercises to the foot and ankle as well as calf squeezes/compression. Patient does not want a refill of her pain medication. Patient will follow-up in 7-10 days for suture removal. documented in this encounter [facility] 03-09-2025 History of Present illness Narrative Images [...] pain management, which could be scheduled in [place] as she transitions to Dr. Walden. Significant [...] requiring urgent evaluation. Visit was preformed using [employer] plant research technician speech recognition. documented in this encounter [facility] 03-07-2025 History of Present illness Narrative HPI: Nicol Frances presents today for post-op appointment of correction right hallux deformity. Surgery was performed on 03/03/[address] [facility]. Patient complains of pain 0. Current [...] for suture removal. documented in this encounter [facility] 02-22-2025 Telephone encounter Note Will you please call her and see if she has had anything done? I know I ordered an EKG for her. [facility] Work Phone: 02-22-2025 Miscellaneous Notes Will you please call her and see if she has had anything done? I know I ordered an EKG for her. Called [facility] and [facility] for results. [facility] doesn't have anything after January 2024. [facility] has lab work from December 2024, which we have, and a EKG from October 2024 that they are sending over now. No other results available. I looked on clinisync and do not see labs or an EKG has she done any for her persurgical testing? Please call [facility] and see if we can request recent labs and EKG. I believe she had done her presurgical testing labs there. She is scheduled for 03/[address] Branham. documented in this encounter [facility] 02-22-2025 Telephone encounter Note Called [facility] and [facility] for results. [facility] doesn't have anything after January 2024. [facility] has lab work from December 2024, which we have, and a EKG from October 2024 that they are sending over now. No other results available. [facility] 02-22-2025 Telephone encounter Note I looked on clinisync and do not see labs or an EKG has she done any for her persurgical testing? [facility] 02-22-2025 Telephone encounter Note Please call [facility] and see if we can request recent labs and EKG. I believe she had done her presurgical testing labs there. She is scheduled for 03/[address] Branham. T [facility] 02-16-2025 History of Present illness Narrative Images from the original note were not included. HPI: Patient presents today for their pre-operative appointment. The patient is scheduled for correction right hallux deformity at [facility] with Dr. Branham on 03/03/2025 at [...] disc without myelopathy DVT (deep venous thrombosis) ([facility]) Encounter for current long-term use of 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s Erythema nodosum Essential hypertension, benign Generalized osteoarthrosis unspecified site Hallux hammertoe, left Hallux hammertoe, right Hallux malleus of right foot Hearing loss Hepatitis B Hyperlipidemia, unspecified Obstructive sleep apnea (adult) (pediatric) Orthostatic hypotension Osteoarthritis of knee 12/22/2019 PE (pulmonary thromboembolism) ([facility]) 04/21/2023 Primary osteoarthritis of first carpometacarpal joint of right hand Spinal stenosis in cervical region Type II or unspecified type diabetes mellitus with neurological manifestations, uncontrolled(250.62) ([facility]) Ulcerative colitis (HCC) Unspecified Ulcerative colitis (HCC) Other ulcerative colitis Ulcerative colitis (HCC) 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 Lancets (LYYNuch Delica Plus [id number]) [facility] [place] [...] Patient was dispensed their postoperative prescriptions including: [place]. A post-operative shoe was also dispensed for [...] days after surgery. documented in this encounter [facility] 02-13-2025 History of Present illness Narrative Images [...] before. She has not previously consulted an customer account specialist. Her home health nurse visits her [...] times daily, to affected area Continuous Glucose Family Physician (FreeStyle Carline 3 [place]) device USE I DEVICE CONTINUOUSLY Continuous Glucose [...] 4 times daily Lancets (OneTouch Delica Plus [id number]) misc USE TO TEST BLOOD SUGAR 3 [...] mellitus (HCC) Gastroesophageal reflux disease Hypercoagulable state ([facility]) jail current use of 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 jail current use of insulin ([facility]) Facet arthritis of lumbosacral region OAB (overactive bladder) Class 1 obesity Spinal stenosis Osteoarthritis of spine with radiculopathy, 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 - Referral to customer account specialist for further evaluation and pain management. [...] Venita Marques NP documented in this encounter [facility] 02-01-2025 History of Present illness Narrative Images [...] reading, if diabetic: A1C 7.3 PCP: Dr. eHrzog. Date of Last visit: 06/22/24 Aggravated by: [...] their surgery date. documented in this encounter [facility] 01-09-2025 History of Present illness Narrative documented in this encounter [facility] 01-04-2025 Evaluation note Diagnosis Onset Date Resolution [...] pulmonary embolism acute March 09, 2025 10:19am [facility] Work Phone: [phone]) [phone] Evaluation note* Diagnosis Onset Date Resolution Status [...] pulmonary embolism acute March 13, 2025 8:29am [facility] Work Phone: [phone]) [phone] Evaluation note* Diagnosis Onset Date Resolution Status [...] pulmonary embolism acute March 17, 2025 8:40am [facility] Work Phone: [phone]) 115-235604-25-2025 History of Present illness Narrative* Radha Verduzco, DO - 12/16/2024 9:00 AM EDT Images from [...] Syringe U/F 30G X 1/2 0.5 ML [facility] [place] cholecalciferol (VITAMIN D-3) 1,000 Units, Daily citalopram (CELEXA) 20 mg, Oral, Every morning clobetasol (Temovate) 0.05 % ointment Topical, 2 times daily clobetasol (Temovate) 0.05 % ointment Topical, 2 times daily Continuous Glucose Family Physician (FreeStyle Carline 3 [place]) device USE I DEVICE CONTINUOUSLY Continuous Glucose Sensor (FreeStyle Carline 3 Sensor) [facility] [place] [...] device 1 each, 4 times daily Lancets (BellaboxTouch Delica Plus [id number]) [facility] [place] [...] disease Other specified forms Colitis Cough Depression ([facility]/HCC) Depressive disorder ([facility]) not elsewhere classified Displacement of lumbar intervertebral disc without myelopathy DVT (deep venous thrombosis) ([facility]) Encounter for current long-term use of 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s Erythema nodosum Essential hypertension, benign (CMS/[facility]) Generalized osteoarthrosis unspecified site Hallux hammertoe, left Hallux hammertoe, right Hallux malleus of right foot Hearing loss Hepatitis B Hyperlipidemia, unspecified (CMS/[facility]) Obstructive sleep apnea (adult) (pediatric) Orthostatic hypotension Osteoarthritis of knee 12/22/2019 PE (pulmonary thromboembolism) ([facility]) 04/21/2023 Primary osteoarthritis of first carpometacarpal joint of right hand Spinal stenosis in cervical region Type II or unspecified type diabetes mellitus with neurological manifestations, uncontrolled(250.62) ([facility]) Ulcerative colitis Unspecified Ulcerative colitis Other ulcerative colitis Ulcerative colitis Vasculitis ([facility]) 04/24/2021 Venous embolism and thrombosis unspecified deep [...] Hernia. HERNIA REPAIR 1986 TUBAL LIGATION Bilateral 1978 FAMILY HISTORY Family History Problem Relation Name [...] Exam Vitals reviewed. Exam conducted with a electronic technologist present. HENT: Head: Normocephalic. Eyes: Pupils: Pupils [...] US for that visit. documented in [facility] [id number] Evaluation note* Diagnosis Onset Date Resolution Status [...] pulmonary embolism acute February 01, 2025 9:46am [facility] Work Phone: [phone]) 339-726404-09-2025 Evaluation note* Diagnosis Onset Date Resolution Status [...] pulmonary embolism acute February 22, 2025 8:35am [facility] Work Phone: [phone]) 138-244903-12-2025 Evaluation note* Diagnosis Onset Date Resolution Status [...] pulmonary embolism acute January 04, 2025 8:39am [facility] Work Phone: [phone]) 256-908903-04-2025 History of Present illness Narrative* Venita Marques, SUPERVISOR STAVE CUTTING - 10/25/2024 2:00 PM EST Images from [...] ointment Topical, 2 times daily Continuous Glucose Family Physician (FreeStyle Carline 3 [place]) device 1 Device, Does not apply, Continuous Continuous Glucose Sensor (FreeStyle Carline 3 Sensor) misc 1 Device, Does not apply, Every 14 days glucose blood (OneTouch Verio) test strip USE TO TEST BLOOD SUGAR THREE TIMES A DAY DIRECTED Lancet Devices (Autolet) lancing device 1 each, 4 times daily Lancets (OneTouch Delica Plus [id number]) misc USE TO TEST BLOOD SUGAR 3 [...] apnea syndrome Steatosis of liver HTN (hypertension) ([facility]) Peripheral venous insufficiency Anxiety disorder Chronic deep vein thrombosis (DVT) of femoral vein of left lower extremity ([facility]) 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 machines and devices Diabetic peripheral neuropathy associated with type 2 diabetes mellitus ([facility]) Gastroesophageal reflux disease Hypercoagulable state (CMS/HCC) jail current use of 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 jail current use of insulin (CMS/[facility]) Facet arthritis of lumbosacral region OAB (overactive bladder) Class 1 obesity Spinal stenosis Osteoarthritis of spine with radiculopathy, 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 Venita Marques NP documented in this encounterThe [facility] [id number] Evaluation note* Diagnosis Onset Date Resolution Status [...] pulmonary embolism acute November 30, 2024 8:37am [facility] Work Phone: [phone]) 762-820501-17-2025 Evaluation note* Diagnosis Onset Date Resolution Status [...] pulmonary embolism acute November 02, 2024 8:51am [facility] Work Phone: [phone]) 611-736301-17-2025 Evaluation note* Diagnosis Onset Date Resolution Status [...] pulmonary embolism acute November 30, 2024 8:37am [facility] Work Phone: [phone]) [phone] Evaluation note* Diagnosis Onset Date Resolution Status [...] pulmonary embolism acute October 05, 2024 8:36am [facility] Work Phone: [phone]) [phone] Evaluation note* Diagnosis Onset Date Resolution Status [...] Crohn's colitis acute October 07, 2024 9:04am [facility] Work Phone: [phone] History of Present illness Narrative* Marlon Thurman Branham, IRAM - 08/01/2024 8:30 AM EST Images from [...] after her next appointment. documented in this encounterThe Rehabilitation [id number] Evaluation note* Diagnosis Onset Date Resolution Status Admit Date Crohn's colitis acute June 29, 2024 10:28am Internal hemorrhoids acute [facility] 2023 10:28am History of DVT (deep vein thrombosis) acute July 04 8:29am History of pulmonary embolism acute July 04, 2024 8:29am History of DVT (deep vein thrombosis) acute August 03 024 8:24am History of pulmonary embolism acute August 03, 2024 8:24am History of DVT (deep vein thrombosis) acute [place] 17[address], 20 25 8:43am History of pulmonary embolism acute September 09, 2024 8:43am [facility] Work Phone: [phone]) 474-735210-30-2024 History of Present illness Narrative* Adam Rodriguez, FLORESITA - 06/22/2024 8:45 AM EDT Images from the original note were not included. Nicol Franecs is a 74 y.o. female presents with [...] HERNIA REPAIR 1986 TUBAL LIGATION Bilateral 1977 SOCIAL HISTORY: Social [...] ointment Topical, 2 times daily glucose blood (LYYNuch Verio) test strip USE TO TEST BLOOD SUGAR THREE TIMES A DAY DIRECTED insulin aspart protamine-insulin aspart (NovoLOG Mix 70-30) (70-30) 100 UNIT/ML injection 12 Units,Subcutaneous, 2 times daily with meals Lancet Devices (Autolet) lancing device 1 each, 4 times daily Lancets (OneTouch Delica Plus [id number]) misc USE TO TEST BLOOD SUGAR 3 [...] all orders for this visit: Primary hypertension ([facility]/HCC) - Basic metabolic panel; Future Mixed hyperlipidemia ([facility]) -at goal with lipitor and zetia Obstructive sleep apnea syndrome -wears c-pap Peripheral venous insufficiency -chronic left leg edema from previous DVT Chronic deep vein thrombosis (DVT) of femoral vein of left lower extremity ([facility]) 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 machines and devices Diabetic peripheral neuropathy associated with type 2 diabetes mellitus ([facility]) - Hemoglobin a1c with eag; Future - Basic metabolic panel; Future Gastroesophageal reflux disease without esophagitis -taking protonix Hypercoagulable state ([facility]) -on warfarin for DVT 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 The rest the review systems is negative. She return here in three months for a BMP and also an A1c.Patient agrees with plan. Dr. Herzog was present in office suite today and is supervising patient care and available for consult. I'm following his plan of care for the above problems. Previous notes and plan were reviewed and followed. Adam Rodriguez, MSN, NURSERY TEACHER-FACILITIES ADMINISTRATOR documented in this encounterThe Rehabilitation [id number] History of Present illness Narrative* Radha Verduzco, [...] 1 each, Other, 4 times daily Lancets (BellaboxTouch Delica Plus [id number]) [facility] [place] [...] Exam Vitals reviewed. Exam conducted with a electronic technologist present. HENT: Head: Normocephalic. Eyes: Pupils: Pupils [...] will resume yearly evaluations. documented in this encounterThe Rehabilitation [id number] History of Present illness Narrative* Marlon Branham [...] over the callous site. documented in this [facility]08-22-2024 Evaluation note* Diagnosis Onset Date [...] June 29, 2024 10:28am [facility] 10:28am History of DVT (deep vein thrombosis) acute July 04 024 8:29am History of pulmonary embolism acute July 04, 2024 8:29am [facility] Work Phone: [phone]) 143-905305-06-2024 [facility] History and physical note Author Sandy Clark [facility] December 28, 2023 8:33am Note Date/Time December 28, 2023 8:33am [facility] [address] [place] [address] Gastroenterology H&P Signed Patient: Nicol Frances MR#: [id number] : 1950 Acct:[id number] Age/Sex: 73 / F Adm Date: 4 Loc: Room: Type: [facility] Attending Dr: Sandy Clark DO Copies [...] <Electronically signed by Sandy Clark DO> 12/28/23832 [facility] Work Phone: [phone]) 660-144105-06-2024 [facility] Evaluation note* Encounter Date Diagnosis Assessment Notes [...] or Wednesdays. Seen by Genie Escobedo PharmD [facility] [employer] Other 02-05-2024 Telephone encounter Note* Telephone Encounter - Ruddy Cisneros - 09/28/2023 9:48 AM EST Patient is scheduled. [facility] [id number] Miscellaneous Notes* Telephone Encounter - Ruddy Cisneros [...] pt and schedule her an appointment to mixing picker tender her shoes that arrived. Thankyou! documented in this encounterThe Rehabilitation [id number] Telephone encounter Note* Telephone Encounter - Kimberly Berger LPN - 09/25/2023 10:23 AM EST Pt called and lvm that she was sorry she missed our call and for someone to give her a call back please and thank you! [facility] [id number] Telephone encounter Note* Telephone Encounter - Ruddy Cisneros - 09/25/2023 9:55 AM EST Called patient to schedule appt to obtain shoes. Unable to LVM due to voicemail not set up. [facility] [id number] Telephone encounter Note* Telephone Encounter - Kimberly Berger LPN - 09/24/2023 4:43 PM EST Can someone please call pt and schedule her an appointment to mixing picker tender her shoes that arrived. Thankyou! [facility] [id number] Evaluation note* Encounter Date Diagnosis Assessment Notes [...] by Samantha Echavarria PharmD Candidate/Tita Roberts PharmD [employer] Other 12-19-2023 Evaluation note* Encounter Date Diagnosis [...] or Wednesdays. Seen by Tita Roberts PharmD [employer] Other 11-21-2023 Evaluation note* Encounter Date Diagnosis [...] Rose Marie Quispe PharmD Candidate/Tita Roberts PharmD [employer] Other 10-23-2023 Evaluation note* Encounter Date Diagnosis [...] to appointments. Seen by Tita Roberts PharmD [employer] Other 09-07-2023 Evaluation note* Encounter Date Diagnosis [...] patient preference. Seen by Rachel Alonso PharmD [employer] Other 08-16-2023 Evaluation note* Encounter Date Diagnosis [...] dosing instructions as above. [facility] [employer] Other 07-31-2023 Evaluation note* Encounter Date Diagnosis [...] in medications or diet. Seen by Anny Qureshi,[facility] [employer] Other 07-19-2023 Evaluation note* Encounter Date Diagnosis [...] in medications or diet. Seen by Anny Qureshi,[facility] [employer] Other 07-03-2023 Evaluation note* Encounter Date Diagnosis Assessment Notes Treatment Notes Treatment Clinical Notes Feb, Medication monitoring encounter (ICD-10 - Z51.81) Referring Provider: Darius Herzog Diagnosis: DVT/PE (1997, 2001) INR Goal: 2-3 INR: 3.4 Warfarin Tablet Size: 3mg Regino: 3mg Howard: 3mg Thursday: 1.5mg Thursday: 3mg : 3mg Thursday: 3mg Thursday: 3mg Total Weekly Dose: 19.5mg Reduce to 1.5mg today, then continue current plan. Follow-up in 2 weeks. Unable to determine the cause of the subtherapeutic INR. Patient denies missed doses and changes in medications or diet. Seen by Anny Qureshi,[facility] [employer] Other 04-19-2023 Evaluation note* Encounter Date Diagnosis [...] in 4 weeks. Seen by Anny Qureshi, [facility] [employer] Other 03-22-2023 Evaluation note* Encounter Date Diagnosis [...] Follow-up in 4 weeks. Seen by Anny Qureshi [facility] [employer] Other 02-22-2023 Evaluation note* Encounter Date Diagnosis [...] Follow-up in 4 weeks. Seen by Anny Qureshi [facility] [employer] Other 01-25-2023 Evaluation note* Encounter Date Diagnosis [...] in 4 weeks. Seen by Anny Qureshi, [facility] [employer] Other 12-28-2022 Evaluation note* Encounter Date Diagnosis [...] made if necessary. Seen by Anny Qureshi, [facility] [employer] Other 12-01-2022 Evaluation note* Encounter Date Diagnosis Assessment Notes Treatment Notes Treatment Clinical Notes Jul, Medication monitoring encounter (ICD-10 - Z51.81) Referring Provider: Darius Herzog Diagnosis: DVT/PE (1997, 2001) INR Goal: 2-3 INR: 3.5 Warfarin Tablet Size: 3mg Regino: 3mg Howard: 3mg Shasha: 1.5mg Thursday: 3mg : 3mg Thursday: 3mg Thursday: 3mg Total Weekly Dose: 19.5mg Hold today, then continue current plan. Follow-up in 4 weeks per patient preference. Unknown cause of high INR. Seen by Olu Rene PharmD [employer] Other 11-03-2022 Evaluation note* Encounter Date Diagnosis [...] can advise her. Seen by Lauren Vance [facility] [employer] Other 10-13-2022 Evaluation note* Encounter Date Diagnosis [...] Lovenox, will discontinue Lovenox at this time. [facility] center. Seen by Olu Rene PharmD [employer] Other 09-29-2022 Evaluation note* Encounter Date Diagnosis [...] more details. Seen by Olu Rene PharmD [employer] Other 09-13-2022 Evaluation note* Encounter Date Diagnosis [...] as above. Seen by Tk Mora PharmD [employer] Other 08-16-2022 Evaluation note* Encounter Date Diagnosis [...] her Grandson. Seen by Jennifer Amezcua LPN [employer] Other 07-21-2022 Evaluation note* Encounter Date Diagnosis Assessment Notes Treatment Notes Treatment Clinical Notes Feb, Medication monitoring encounter (ICD-10 - Z51.81) Referring Provider: Darius Herzog Diagnosis: DVT/PE (1997, 2001) INR Goal: 2-3 INR: 2.3 Tablet Size: 3mg Regino: 3mg Thursday: 3mg Thursday: 1.5mg Thursday: 3mg : 3mg Thursday: 3mg Thursday: 1.5mg Total Weekly Dose: 18mg Continue above plan. Follow up in 2 weeks. Please coordinate with 's appointment. Seen by Tameka Churchill RN [employer] Other 07-07-2022 Evaluation note* Encounter Date Diagnosis [...] 's appointment. Seen by Olu Rene PharmD [employer] Other 06-27-2022 Evaluation note* Encounter Date Diagnosis [...] 's appointment. 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 Seen by Tameka Churchill RN [employer] Other 05-16-2022 Evaluation note* Encounter Date Diagnosis [...] 's appointment. Seen by Marita Luo LPN [employer] Other 05-02-2022 Evaluation note* Encounter Date Diagnosis [...] 's appointment. Seen by Tameka Churchill RN [employer] Other 04-20-2022 Evaluation note* Encounter Date Diagnosis [...] will resume. Seen by Tameka Churchill RN [employer] Other 04-07-2022 Evaluation note* Encounter Date Diagnosis Assessment Notes Treatment Notes Treatment Clinical Notes Nov, Diarrhea (ICD-10 - R19.7) Nov, Rectal bleeding (ICD-10 - K62.5) Nov, Colitis (ICD-10 - K52.9) [employer] Other 04-06-2022 Evaluation note* Encounter Date Diagnosis Assessment Notes Treatment Notes Treatment Clinical Notes Nov, Medication monitoring encounter (ICD-10 - Z51.81) Referring Provider: Darius Herzog Diagnosis: DVT/PE (1997, 2001) INR Goal: 2-3 INR: 1.7 Tablet Size: 3mg Regino: 3mg Thursday: 3mg Thursday: 1.5mg Thursday: 3mg : 1.5mg Thursday: 3mg Thursday: 1.5mg Total Weekly Dose: 16.5mg Boost additional 1.5mg today, Monday 11/27 and then begin new plan, a 5% increase. Follow up in 2 weeks. Patient was recently discharged from hospital for having diarrhea for 1 month. Patient states this is showing improvement. Seen by Tameka Churchill RN [employer] Other 03-22-2022 Evaluation note* Encounter Date Diagnosis [...] 2 weeks. Seen by Tameka Churchill RN [employer] Other 03-10-2022 Evaluation note* Encounter Date Diagnosis Assessment Notes Treatment Notes Treatment Clinical Notes Oct, Medication monitoring encounter (ICD-10 - Z51.81) Referring Provider: Darius Herzog Diagnosis: DVT/PE (1997, 2001) INR Goal: 2-3 INR: 2.1 Tablet Size: 3mg Regino: 1.5mg Howard: 3mg Thursday: 1.5mg Thursday: 3mg : 1.5mg Thursday: 3mg Thursday: 1.5mg Total Weekly Dose: 15mg Continue above plan. Follow up in 2 weeks. Seen by Tameka Churchill RN [employer] Other 02-21-2022 Evaluation note* Encounter Date Diagnosis [...] 2 weeks. Seen by Tameka Churchill RN [employer] Other 02-07-2022 Evaluation note* Encounter Date Diagnosis [...] 2 weeks. Seen by Tameka Churchill RN [employer] Other 01-20-2022 Evaluation note* Encounter Date Diagnosis [...] 2 weeks. Seen by Tameka Churchill RN [employer] Other 01-06-2022 Evaluation note* Encounter Date Diagnosis [...] 2 weeks. Seen by Tameka Churchill RN [employer] Other 12-09-2021 Evaluation note* Encounter Date Diagnosis [...] 2 weeks. Seen by Tameka Churchill RN [employer] Other 11-22-2021 Evaluation note* Encounter Date Diagnosis [...] 2 weeks. Seen by Tameka Churchill RN [employer] Other 11-10-2021 Evaluation note* Encounter Date Diagnosis [...] 2 weeks. Seen by Tameka Churchill RN [employer] Other 10-27-2021 Evaluation note* Encounter Date Diagnosis [...] 's appt. Seen by Tameka Churchill RN [employer] Other 10-05-2021 Evaluation note* Encounter Date Diagnosis [...] 's appt. Seen by Tameka Churchill RN [employer] Other 09-22-2021 Evaluation note* Encounter Date Diagnosis [...] with . Seen by Olu Rene PharmD [employer] Other chief complaint+Reason for visit Narrative* Chief Complaint DVT INR Follow Up blood in stool/change in stool/ref M. Sarah R59.0 Procedure Instructions + Lovenox Instructions Reason for Visit History of DVT (deep vein thrombosis) History of pulmonary embolism Rectal bleed Ulcerative colitis History of DVT (deep vein thrombosis) History of pulmonary embolism [facility] Work Phone: chief complaint+Reason for visit Narrative* Chief Complaint DVT INR Follow Up blood in stool/change in stool/ref M. Sarah R59.0 Procedure Instructions + Lovenox Instructions ulcerative colitis/blood in stool ulcerative colitis/blood in stool Reason for Visit History of DVT (deep vein thrombosis) History of pulmonary embolism Rectal bleed Ulcerative colitis History of DVT (deep vein thrombosis) History of pulmonary embolism [facility] Work Phone: chief complaint+Reason for visit Narrative* [...] (deep vein thrombosis) History of pulmonary embolism [facility] Work Phone: Chief complaint+Reason for visit Narrative* Chief Complaint blood [...] (deep vein thrombosis) History of pulmonary embolism [facility] Work Phone: chief complaint+Reason for [...] (deep vein thrombosis) History of pulmonary embolism [facility] Work Phone: evaluation noteNo InformationNort [employer] Other evaluation noteNoHouseFix Other evaluation noteNo assessment information available [facility] Work Phone: evaluation note* Diagnosis Onset Date Resolution Status HTN (hypertension) acute Shakiness acute Weakness acute [facility] Work Phone: evaluation note* Diagnosis Onset Date Resolution Status History of DVT (deep vein thrombosis) acute History of pulmonary embolism acute [facility] Work Phone: Evaluation note* Diagnosis Onset Date Resolution Status History of DVT (deep vein thrombosis) acute History of pulmonary embolism acute Blood in stool acute Ulcerative colitis acute [facility] Work Phone: evaluation note* Diagnosis Onset Date Resolution Status History of DVT (deep vein thrombosis) acute History of pulmonary embolism acute Rectal bleed acute Ulcerative colitis acute [facility] Work Phone: evaluation note* Diagnosis Onset Date Resolution Status History of DVT (deep vein thrombosis) acute History of pulmonary embolism acute Rectal bleed acute Ulcerative colitis acute History of DVT (deep vein thrombosis) acute History of pulmonary embolism acute [facility] Work Phone: Evaluation note* Diagnosis [...] thrombosis) acute History of pulmonary embolism acute [facility] Work Phone: Evaluation note* Diagnosis [...] thrombosis) acute History of pulmonary embolism acute [facility] Work Phone: Evaluation note* Diagnosis Onset Date Resolution Status History of DVT (deep vein thrombosis) acute History of pulmonary embolism acute History of DVT (deep vein thrombosis) acute History of pulmonary embolism acute History of DVT (deep vein thrombosis) acute History of pulmonary embolism acute History of DVT (deep vein thrombosis) acute History of pulmonary embolism acute [facility] Work Phone: Evaluation note* Diagnosis Primary hypertension ([facility])- Primary Unspecified essential hypertension Mixed hyperlipidemia ([facility]) Mixed hyperlipidemia Obstructive sleep apnea syndrome Obstructive sleep apnea (adult) (pediatric) Peripheral venous insufficiency Unspecified venous (peripheral) insufficiency Chronic deep vein thrombosis (DVT) of femoral vein of left lower extremity ([facility]) 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 machines and devices Diabetic peripheral neuropathy associated with type 2 diabetes mellitus ([facility]) Gastroesophageal reflux disease without esophagitis Esophageal reflux Hypercoagulable state ([facility]) Primary hypercoagulable state jail current use of 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 ([facility]) OAB (overactive bladder) Class 1 obesity Spinal stenosis of lumbosacral region Ulcerative colitis without complications, unspecified location ([facility]) Need for immunization against influenza Need for [...] thrombosis) acute History of pulmonary embolism acute [facility] Work Phone: Evaluation note* Diagnosis [...] Ulcerative colitis without complications, unspecified location (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 (CMS/HCC) 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 Sacral ulcer, limited to breakdown of skin ([facility]) [facility] encounter [facility] [...] with type 2 diabetes mellitus (CMS/HCC)- Primary jail current use of insulin (CMS/HCC) Mixed hyperlipidemia (CMS/HCC) Mixed hyperlipidemia Hypercoagulable state (CMS/HCC) Primary hypercoagulable state jail current use of 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 Steatosis of [...] with long-term current use of insulin (HCC) ([facility]/HCC) Diabetic peripheral neuropathy associated with type 2 diabetes mellitus (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 (CMS/HCC) Mixed hyperlipidemia (CMS/HCC) Mixed hyperlipidemia Steatosis of liver Other chronic nonalcoholic liver disease Primary hypertension (CMS/HCC) Unspecified essential hypertension Chronic deep vein thrombosis (DVT) of femoral vein of left lower extremity (CMS/HCC) Spinal stenosis of lumbosacral region 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 [facility] Diagnosis Onychomycosis- Primary Dermatophytosis of nail Corns and callosities Hallux malleus, right Type II diabetes mellitus with neurological manifestations ([facility]/HCC) Type II or unspecified type diabetes mellitus [...] of skin (HCC) documented in this encounter [facility]* Diagnosis Surgery follow-up examination- Primary Follow-up examination, following unspecified surgery Hallux malleus, right Ulcer of great toe, right, limited to breakdown of skin (HCC) Right foot pain Pain in soft tissues of limb documented in this encounter [facility]* Diagnosis Posterior tibial tendonitis, right- Primary Surgery follow-up examination Follow-up examination, following unspecified surgery Hallux malleus, right Ulcer of great toe, right, limited to breakdown of skin (HCC) documented in this encounter [facility]* Diagnosis Onychomycosis- Primary Dermatophytosis of nail Pain in both feet Type II diabetes mellitus with neurological manifestations (HCC) Type II or unspecified type diabetes mellitus with neurological manifestations, not stated as uncontrolled Corns and callosities Hallux malleus, right Surgery follow-up examination Follow-up examination, following unspecified surgery documented in this encounter [facility] HealthcareHistory general Narrative - Reported* Type Description [...] with biopsies due t o Colitis Hx. 16 Surgical History C3-4, C4-[address] Maynard. 1 Hospitalization History see surgical Hx Hospitalization History acute gastroenteritis 04/30-05/01/18 [employer] Other History general Narrative - Reported* Type [...] Dr. Maynard. 1 Hospitalization History see above [facility] [employer] Other History [facility] - [facility] [employer] Other Hospital Discharge instructions Additional Instructions Continue your pain pills at home Return symptoms are worse [facility] Discharge instructions Additional Instructions Continue current meds Return if [facility] are [facility] Work Phone: Reason for referral (narrative)No reason for referral [facility] Phone: Chief Complaint and [...] of DVT (deep vein thrombosis) No vember 2023 8:29am History of pulmonary embolism June 242023 8:29am Chief Complaint Admit Date 6 month follow up June 29, 2024 1 0:28am INR f/u July 04, 2024 8:29am INR Follow Up August 03, 2024 8:24am Reason for Visit Admit Date Crohn's colitis June 29, 2024 1 0:28am Internal hemorrhoids June 29, 2024 10:28am History of DVT (deep vein thrombosis) No [facility]2023 8:29am History of pulmonary embolism June 242023 8:29am History of DVT (deep vein thrombosis) [facility] 2023 8:24am History of pulmonary embolism July 242023 8:24am History of DVT (deep vein thrombosis) [facility] 2024 8:43am History of pulmonary embolism September 092024 8:43am Chief Complaint Admit Date INR Follow Up August 03, 2024 8:24am INR f/u October 05, 2024 8:36am Reason for Visit Admit Date History of DVT (deep vein thrombosis) [facility] 2023 8:24am History of pulmonary embolism July 242023 8:24am History of DVT (deep vein thrombosis) [facility] 2024 8:43am History of pulmonary embolism September 092024 8:43am History of DVT (deep vein thrombosis) [facility] 2024 8:36am History of pulmonary embolism September 242024 8:36am Chief Complaint Admit Date INR Follow Up August 03, 2024 8:24am INR f/u October 05, 2024 8:36am 3 month Follow up/colitis October 07, 2024 9:04am Reason for Visit Admit Date History of DVT (deep vein thrombosis) [facility] 2023 8:24am History of pulmonary embolism July 242023 8:24am History of DVT (deep vein thrombosis) [facility] 2024 8:43am History of pulmonary embolism September 092024 8:43am History of DVT (deep vein thrombosis) [facility] 2024 8:36am History of pulmonary embolism September 242024 8:36am Crohn's colitis October 07, 2024 9:04am Chief Complaint Admit Date INR f/u October 05, 2024 8:36am 3 month Follow up/colitis October 07, 2024 9:04am INR f/u November 02, 2024 8:5 1am Reason for Visit Admit Date History of DVT (deep vein thrombosis) [facility] 2024 8:43am History of pulmonary embolism September 092024 8:43am History of DVT (deep vein thrombosis) [facility] 2024 8:36am History of pulmonary embolism September 242024 8:36am Crohn's colitis October 07, 2024 9:04am History of DVT (deep vein thrombosis) [facility] 2024 8:51am History of pulmonary embolism October 8:51am Chief Complaint Admit Date INR f/u October 05, 2024 8:36am 3 month Follow up/colitis October 07, 2024 9:04am INR f/u November 02, 2024 8:5 1am INR f/u November 30, 2024 8:37 am Reason for Visit Admit Date History of DVT (deep vein thrombosis) [facility] 2024 8:43am History of pulmonary embolism September 092024 8:43am History of DVT (deep vein thrombosis) [facility] 2024 8:36am History of pulmonary embolism September 242024 8:36am Crohn's colitis October 07, 2024 9:04am History of DVT (deep vein thrombosis) [facility] 2024 8:51am History of pulmonary embolism October 8:51am History of DVT (deep vein thrombosis) [facility] 2024 8:37am History of pulmonary embolism November 30, 2024 8:37am Chief Complaint Admit Date INR f/u October 05, 2024 8:36am 3 month Follow up/colitis October 07, 2024 9:04am INR f/u November 02, 2024 8:5 1am INR f/u November 30, 2024 8:37 am R92.8 December 07, 2024 8:3 4am Reason for Visit Admit Date History of DVT (deep vein thrombosis) [facility] 2024 8:36am History of pulmonary embolism September 242024 8:36am Crohn's colitis October 07, 2024 9:04am History of DVT (deep vein thrombosis) [facility] 2024 8:51am History of pulmonary embolism October 8:51am History of DVT (deep vein thrombosis) Ap [facility] 2024 8:37am History of pulmonary embolism November 30, 2024 8:37am Chief Complaint Admit Date INR f/u November 02, 2024 8:5 1am INR f/u November 30, 2024 8:37 am R92.8 December 07, 2024 8:3 4am Reason for Visit Admit Date History of DVT (deep vein thrombosis) [facility] 2024 8:51am History of pulmonary embolism October [...] ly 2024 8:40am History of pulmonary embolism Suzie 25th, 2025 8:40am Family History No Family History [...] up for her ER visit at the [facility] on 12/06. She was seen for [...] Pain Specialty Diagnoses / Procedures Referred By Contac t Referred To Contact Orthopaedic Surgery Diagnoses Acute pain of left knee Primary osteoarthritis of left knee Venita Marques, [employer] [address] [place] [address] Phone: tel: fax: Caro Hugo PA Phone: tel: fax: Referral ID Status Reason Start Date Expiration Date V isits Requested Visits Authorized [id number] Closed Specialty Services Required 02/13/2025 08/12/2025 1 [...] 2025 Team Status: Inactive Member Role Status Leesa [...] 2024 End: November 02, 2024 Kiersten Qureshi [facility] Attending Provider Active Start: November 02, [...] 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 Primary Care Provider Active Draw Tender Relationship Specialty Start Date End Date Kristopher Herzog DO [address] [place] [address] PCP - Devoted 12/22/21 Kristopher Herzog DO [address] [place] [address] PCP - General Internal Medicine 12/30/22 Team [...] Active Start: December 28, 2023 Sandy Clark , DO Attending Provider, Other Provider Active [...] June 06, 2024 End: June 06, 2024 Draw Tender Relationship Specialty Start Date End Date Kristopher Herzog DO [address] [facility] [address] [place] [address] PCP - Devoted 12/22/21 Kristopher Herzog DO [address] [place] [address] PCP - General Internal Medicine 12/30/22 Draw Tender Relationship Specialty Start Date End Date Kristopher Herzog DO [address] [place] [address] PCP - Devoted 12/22/21 Kristopher Herzog DO [address] [place] [address] PCP - General Internal Medicine 12/30/22 Team [...] July 04, 2024 End: July 04, 2024 Draw Tender Relationship Specialty Start Date End Date Kristopher Herzog DO [address] [place] [address] PCP - Devoted 12/22/21 08/23/24 Kristopher Herzog DO [address] [place] [address] PCP - General Internal Medicine 12/30/22 Draw Tender Relationship Specialty Start Date End Date Kristopher Herzog DO [address] [place] [address] PCP - Devoted 12/22/21 08/23/24 Kristopher Herzog DO [address] [place] [address] PCP - General Internal Medicine 12/30/22 Draw Tender Relationship Specialty Start Date End Date Kristopher Herzog DO [address] [place] [address] PCP - Devoted 12/22/21 Kristopher Herzog DO [address] [place] [address] PCP - General Internal Medicine 12/30/22 Draw Tender Relationship Specialty Start Date End Date Kristopher Herzog DO [address] [place] [address] PCP - Devoted 12/22/21 Kristopher Herzog DO [address] [place] [address] PCP - General Internal Medicine 12/30/22 Team [...] September 09, 2024 End: September 09, 2024 Draw Tender Relationship Specialty Start Date End Date Kristopher Herzog DO [address] [place] [address] PCP - General Internal Medicine 12/30/22 Team Status: Inactive Member Role Status Dates Kristopher Herzog DO Primary Care Provide r, Referring Provider Active Start: October 05, 2024 End: October 05, 2024 Kiersten Qureshi [facility] Attending Provider Active Start: October 05, 2024 End: October 05, 2024 Team Status: Inactive Member Role Status Dates Kristopher Herzog DO Primary Care Provider Active Start: October 07, 2024 End: October 07, 2024 Sandy Clark DO Attending Provider Active St art: October 07, 2024 End: October 07, 2024 Draw Tender Relationship Specialty Start Date End Date Kristopher Herzog DO [address] [place] [address] PCP - General Internal Medicine 12/30/22 Draw Tender Relationship Specialty Start Date End Date Kristopher Herzog DO [address] [place] [address] PCP - General Internal Medicine 12/30/22 Draw Tender Relationship Specialty Start Date End Date Kristopher Herzog DO [address] [place] [address] PCP - General Internal Medicine 12/30/22 Draw Tender Relationship Specialty Start Date End Date Kristopher Herzog DO [address] [place] [address] PCP - General Internal Medicine 12/30/22 Draw Tender Relationship Specialty Start Date End Date Kristopher Herzog DO [address] [place] [address] PCP - General Internal Medicine 12/30/22 Draw Tender Relationship Specialty Start Date End Date Kristopher Herzog DO [address] [place] [address] PCP - General Internal Medicine 12/30/22 Draw Tender Relationship Specialty Start Date End Date Kristopher Herzog DO [address] [place] [address] PCP - General Internal Medicine 12/30/22 Draw Tender Relationship Specialty Start Date End Date Kristopher Herzog DO [address] [place] [address] PCP - General Internal Medicine 12/30/22 Draw Tender Relationship Specialty Start Date End Date Kristopher Herzog DO [address] [place] [address] PCP - General Internal Medicine 12/30/22 Team [...] February 22, 2025 End: February 22, 2025 Draw Tender Relationship Specialty Start Date End Date Kristopher Herzog DO [address] [place] [address] PCP - General Internal Medicine 12/30/22 Draw Tender Relationship Specialty Start Date End Date Kristopher Herzog DO [address] [facility] [address] [place] [address] PCP - General Internal Medicine 12/30/22 Draw Tender Relationship Specialty Start Date End Date Kristopher Herzog DO [address] [facility] [address] [place] [address] PCP - General Internal Medicine 12/30/22 Draw Tender Relationship Specialty Start Date End Date Kristopher Herzog DO [address] [place] [address] PCP - General Internal Medicine 12/30/22 Team [...] March 13, 2025 End: March 13, 2025 Draw Tender Relationship Specialty Start Date End Date Kristopher Herzog DO [address] [address] PCP - General Internal Medicine 12/30/22 Team Status: Inactive Member Role Status Dates Kristopher Herzog DO Primary Care Provider Active Start: March 17, 2025 End: March 17, 2025 Kristopher Herzog DO Referring Provider Active St art: March 17, 2025 End: March 17, 2025 Kiersten Qureshi [facility] Attending Provider Active Start: March 17, 2025 End: March 17, 2025 Draw Tender Relationship Specialty Start Date End Date Karlos Morgan MD [address] [facility] [place] [address] PCP - General Family Medicine 03/17/25 Draw Tender Relationship Specialty Start Date End Date Karlos Morgan MD [address] [facility] [place] [address] PCP - General Family Medicine 03/17/25 Draw Tender Relationship Specialty Start Date End Date Karlos Morgan MD [address] [facility] [place] [address] PCP - General Family Medicine 03/17/25 Draw Tender Relationship Specialty Start Date End Date Karlos Morgan MD [address] [facility] [place] [address] PCP - General Family Medicine 03/17/25 Draw Tender Relationship Specialty Start Date End Date Karlos Morgan MD [address] [place] [address] PCP - General Family Medicine 03/17/25 Draw Tender Relationship Specialty Start Date End Date Karlos Morgan MD [address] [place] [address] PCP - General Family Medicine 03/17/25 Goals (unrecognized section and content) Goals may be documented in a n alternate section INFORMATION SOURCE (unrecogn ized section and content) DATE CREATED AUTHOR 12/18/2022 [facility] DATE CREATED AUTHOR AUTHOR'S ORGANIZ ATION 12/09/2024 [facility] DATE CREATED AUTHOR AUTHOR'S ORGANIZ ATION 05/28/2025 [facility] FOR RECORDS PERTAINING TO PATIENTS WHO ARE [...] BE BASED ON THE PRIMARY CLINICAL RECORDS. [facility] [employer] provides no warranty or guarantee of the accuracy or completeness of information in this document.
--- NOTE | 2025-06-07 15:33 | ED.EXTPRO1 ---
HPI - Extremity Problem General Chief complaint: Extremity Problem, Nontraumatic Stated complaint: RIGHT LEG IS SWOLLEN Time Seen by Provider: 06/07/25 15:30 Source: patient Mode of arrival: Wheelchair Limitations: no limitations History of Present Illness HPI Narrative: Patient 75-year-old female with history of diabetes as well as bunion surgery done in February of this year the right foot is coming to the ER, the patient is presenting to the ER with redness and pain in her right foot climbing up to her right leg for the last few days, the patient mentioned that she have some vision issues and she is not able to tell us how long it been going on but she noted that over the last 24 hours the redness and the swelling got worse Denies any fever or chills any decreased p.o. intake she also have history of DVT and she is taking Eliquis Related Data Home Medications ?Medication ?Instructions ?Recorded ?Confirmed citalopram 20 mg tablet 20 mg PO DAILY 12/06/24 06/07/25 furosemide 20 mg tablet 20 mg PO DAILY 12/06/24 06/07/25 losartan 50 mg tablet 50 mg PO DAILY 12/06/24 03/31/25 pantoprazole 40 mg tablet,delayed 40 mg PO Q12H 12/06/24 06/07/25 release rosuvastatin 20 mg tablet 20 mg PO DAILY 12/06/24 06/07/25 apixaban 5 mg tablet (Eliquis) 5 mg PO BID 03/24/25 06/07/25 insulin aspar prot-insulin aspart 18 unit subcut BID 03/31/25 06/07/25 100 unit/mL (70-30) subcutaneous pen (Novolog Mix 70-30FlexPen U-100) Previous Rx's ?Medication ?Instructions ?Recorded polyethylene glycol 3350 17 17 g PO DAILY 4 days #68 grams 03/31/25 gram/dose oral powder (Miralax) Allergies Allergy/AdvReac Type Severity Reaction Status Date / Time No Known Drug Allergies Allergy Verified 03/24/25 21:26 Review of Systems ROS Status of ROS 10 or more systems reviewed and unremarkable except as noted in history and below PFSH PFS Social History Little interest or pleasure in doing things: not at all Feeling down, depressed, or hopeless: not at all Exam Narrative Exam Narrative: Nurses notes and vital signs reviewed and patient is not hypoxic. Right lower extremity exam: Have significant redness on the dorsum of the right foot climbing up to the right leg just below the right knee, foot is red and tender and the patient have a anterior tibial pulse that is dopplerable The patient have a scar of previous surgery on the dorsum of the right big toe and the patient also have a callus at the tip of the second toe General: Well-appearing and in no apparent distress. Skin: Warm, dry, no pallor noted. No rash. Head: Normocephalic, atraumatic. Neck: Supple, non-tender. Eye: Pupils are equal, round and EOMI. No scleral icterus. Ears, Nose, Mouth, and Throat: TM are clear, no nasal mucosal hypertrophy. Oral mucosa is moist, no posterior oropharynx erythema, uvula is mid-line Cardiovascular: Regular Rate and Rhythm without murmur, gallop or rub. Respiratory: No accessory muscle use or respiratory distress. Lungs are clear to auscultation, no wheezing, rales or rhonchi Chest Wall: no tenderness g GI: Abdomen is soft, non-distended. Normal bowel sounds. No masses appreciated. No tenderness to palpation. No rebound, guarding, or rigidity noted. Neurological: A&O x4. No cranial nerve dysfunction observed. No truncal ataxia. Moves all extremities. Sensation intact. Psychiatric: Cooperative and interactive. Normal mood and affect. Constitutional Vital Signs, click to edit/add: Last Vital Signs Temp 98.5 F 06/07/25 15:13 Pulse 82 06/07/25 15:13 Resp 18 06/07/25 15:13 BP 150/68 H 06/07/25 15:13 Pulse Ox 100 06/07/25 15:13 O2 Del Method Room Air 06/07/25 15:13 Course Vital Signs Vital signs: Vital Signs Temperature 98.5 F 06/07/25 15:13 Pulse Rate 82 06/07/25 15:13 Respiratory Rate 18 06/07/25 15:13 Blood Pressure 150/68 H 06/07/25 15:13 Pulse Oximetry 100 06/07/25 15:13 Oxygen Delivery Method Room Air 06/07/25 15:13 Temperature 98.5 F 06/07/25 15:13 Pulse Rate 82 06/07/25 15:13 Respiratory Rate 18 06/07/25 15:13 Blood Pressure 150/68 H 06/07/25 15:13 Pulse Oximetry 100 06/07/25 15:13 Oxygen Delivery Method Room Air 06/07/25 15:13 MDM - Extremity (Nontraumatic) MDM Narrative Medical decision making narrative: Patient upon arrival had a significant cellulitis of the right foot is very obvious Although the CBC and the chemistry did not show any significant pathology but the ESR and CRP are elevated. She also have very mild acute kidney injury Venous Doppler was negative for any DVT in the right leg and the patient x-ray as well shows only soft tissue swelling of the right ankle and foot Right now the patient presentation is highly suspicious of cellulitis with her history of diabetes patient will need IV antibiotic due to risk of back to the ER specially with the patient having rods and foreign body in her right foot I did discuss the case with although the patient surgery was done by Dr. [facility] in [facility] he is agreeable to see the patient in the inpatient when consulted Patient case discussed with agree to admit the patient for further evaluation Started on IV Unasyn and doxycycline Lab Data Labs: Lab Results 06/07/25 Range/Units 15:47 WBC 6.0 (4.0-11.0) 10^3/uL RBC 3.84 L (4.20-5.40) 10^6/uL Hgb 12.3 (12.0-16.0) g/dL Hct 35.6 L (36.0-48.0) % MCV 92.7 (81.0-99.0) fL MCH 32.0 (26.7-34.0) pg MCHC 34.6 (29.9-35.2) g/dL RDW 12.7 (11.0-15.0) % Plt Count 212 (150-450) 10^3/uL MPV 10.4 (9.5-13.5) fL Neut % (Auto) 66.7 (43.0-75.0) % Lymph % (Auto) 21.3 (20.5-60.0) % Centre % (Auto) 7.7 (1.7-12.0) % Eos % (Auto) 3.4 (0.9-7.0) % Baso % (Auto) 0.7 (0.2-2.0) % Neut # (Auto) 4.0 (1.4-6.5) 10^3/uL Lymph # (Auto) 1.3 (1.2-3.8) 10^3/uL Centre # (Auto) 0.5 (0.3-0.8) 10^3/uL Eos # (Auto) 0.2 (0.0-0.7) 10^3/uL Baso # (Auto) 0.0 (0.0-0.1) 10^3/uL Abs Immat Gran (auto) 0.01 (0.00-0.03) 10^3/uL Imm/Tot Granulo (auto) 0.2 (0.0-0.5) % ESR 82 H (<=30) mm/hr Sodium 139 (136-145) mmol/L Potassium 3.6 (3.5-5.1) mmol/L Chloride 105 (98-107) mmol/L Carbon Dioxide 21.9 (21.0-32.0) mmol/L Anion Gap 15.7 BUN 23.0 H (7.0-18.0) mg/dL Creatinine 1.15 H (0.55-1.02) mg/dL Est GFR ( Amer) 56 L (>=60 mL/min/1.73m^2) Est GFR (Non-Af Amer) 46 L (>=60 mL/min/1.73m^2) BUN/Creatinine Ratio 20.0 Glucose 180 H (74-106) mg/dL Lactate 1.1 (0.4-2.0) mmol/L Calcium 9.4 (8.5-10.1) mg/dL Total Bilirubin 0.3 (0.2-1.0) mg/dL AST 13 L (15-37) U/L ALT 22 (14-59) U/L Alkaline Phosphatase 72 (46-116) U/L C-Reactive Protein 1.48 H (<=0.50) mg/dL Total Protein 7.8 (6.4-8.2) g/dL Albumin 3.4 (3.4-5.0) g/dL Globulin 4.4 g/dL Albumin/Globulin Ratio 0.8 Discharge Plan Discharge Chief Complaint: Extremity Problem, Nontraumatic Clinical Impression: Cellulitis of leg, right, Cellulitis of foot Patient Disposition: Admitted As Inpatient Time of Disposition Decision: 17:43
[2025-06-07 15:58] LABS: Hematocrit 35.6 % (36.0-48.0); Hemoglobin 12.3 g/dL (12.0-16.0); Immature Granulocytes Abs Auto 0.01 10^3/uL (0.00-0.03); Immature Granulocytes Pct Auto 0.2 % (0.0-0.5); Lymphocytes Absolute Auto 1.3 10^3/uL (1.2-3.8); Mean Corpuscular HGB Conc 34.6 g/dL (29.9-35.2); Mean Corpuscular Hemoglobin 32.0 pg (26.7-34.0); Mean Corpuscular Volume 92.7 fL (81.0-99.0); Platelet Count 212 10^3/uL (150-450); Red Blood Count 3.84 10^6/uL (4.20-5.40); White Blood Count 6.0 10^3/uL (4.0-11.0)
[2025-06-07 16:19] LABS: Alanine Aminotransferase 22 U/L (14-59); Albumin Globulin Ratio 0.8; Albumin Level 3.4 g/dL (3.4-5.0); Alkaline Phosphatase 72 U/L (46-116); Anion Gap 15.7; Aspartate Amino Transferase 13 U/L (15-37); Blood Urea Nitrogen 23.0 mg/dL (7.0-18.0); Calcium 9.4 mg/dL (8.5-10.1); Carbon Dioxide 21.9 mmol/L (21.0-32.0); Chloride 105 mmol/L (98-107); Estimated GFR (African America 56 (>=60 mL/min/1.73m^2); Estimated GFR (Non-African Ame 46 (>=60 mL/min/1.73m^2); Globulin 4.4 g/dL; Glucose 180 mg/dL (74-106); Potassium 3.6 mmol/L (3.5-5.1); Sodium 139 mmol/L (136-145); Total Protein 7.8 g/dL (6.4-8.2)
[2025-06-07 16:22] LABS: Lactate/Lactic Acid 1.1 mmol/L (0.4-2.0)
[2025-06-07] MEDS: AMPICILLIN SODIUM/SULBACTAM NA 3 GM in 0.9 % SODIUM CHLORIDE 100 ML IV ×2 (17:01→23:13)
[2025-06-07] MEDS: KETOROLAC TROMETHAMINE 30 MG/ML VIAL 15 MG IVP (17:01)
[2025-06-07] MEDS: DOXYCYCLINE HYCLATE 100 MG in 0.9 % SODIUM CHLORIDE 100 ML IV (17:37)
--- NOTE | 2025-06-07 18:05 | PM.HP ---
HPI H&P: HPI History of Present Illness Chief complaint: RIGHT LEG IS SWOLLEN Narrative: Patient is a 75 year old female with PMH as listed below came here with redness and R foot swelling has been worsening and going up her RLE to below her knee at this time. denies fever, chills, nausea, vomiting. [facility] Here [facility], x ray done showed soft tissue swelling consistent with cellulitis. Pt with hx of DVT and on Eliquis. ER team spoke with our podiatry and agreed to see pt on consult. Patient was kept here for IV AB for cellulitis of R foot. Opioid HPI Opioid Management Most Recent Pain and Opioid Data: Last Pain Scale 5 Today, 17:01 Last OCT Pain Assessment Today, 17:01 Review of Systems ROS Status of ROS 10 or more systems reviewed and unremarkable except as noted in history and below PFSH PFSH Social History Little interest or pleasure in doing things: not at all Feeling down, depressed, or hopeless: not at all Meds Home Medications and Allergies Home Medications ?Medication ?Instructions ?Recorded ?Confirmed ?Type citalopram 20 mg tablet 20 mg PO DAILY 12/06/24 06/07/25 History furosemide 20 mg tablet 20 mg PO DAILY 12/06/24 06/07/25 History losartan 50 mg tablet 50 mg PO DAILY 12/06/24 06/07/25 History pantoprazole 40 mg tablet,delayed 40 mg PO Q12H 12/06/24 06/07/25 History release rosuvastatin 20 mg tablet 20 mg PO DAILY 12/06/24 06/07/25 History apixaban 5 mg tablet (Eliquis) 5 mg PO BID 03/24/25 06/07/25 History insulin aspar prot-insulin aspart 18 unit subcut BID 03/31/25 06/07/25 History 100 unit/mL (70-30) subcutaneous pen (Novolog Mix 70-30FlexPen U-100) polyethylene glycol 3350 17 17 g PO DAILY 4 days #68 grams 03/31/25 06/07/25 Rx gram/dose oral powder (Miralax) Allergies Allergy/AdvReac Type Severity Reaction Status Date / Time No Known Drug Allergies Allergy Verified 03/24/25 21:26 Exam Narrative Exam Narrative: General: Well-appearing and in no apparent distress. Skin: Warm, dry, no pallor noted. No rash. Head: Normocephalic, atraumatic. Neck: Supple, non-tender. Eye: Pupils are equal, round and EOMI. No scleral icterus. Cardiovascular: Regular Rate and Rhythm without murmur, gallop or rub. Respiratory: No accessory muscle use or respiratory distress. Lungs are clear to auscultation, no wheezing, rales or rhonchi Chest Wall: no tenderness GI: Abdomen is soft, non-distended. Normal bowel sounds. No masses appreciated. No tenderness to palpation. No rebound, guarding, or rigidity noted. Neurological: A&O x4. No cranial nerve dysfunction observed. No truncal ataxia. Moves all extremities. Sensation intact. RLE: R foot redness and swelling all the way up to below knee, cellulitis, warm to touch, nonpurulent. R tip 2nd toe callus. no obvious open wounds or discharge. Psychiatric: Cooperative and interactive. Normal mood and affect. Constitutional Vital Signs, click to edit/add: Last Vital Signs Temp 98.5 F 06/07/25 15:13 Pulse 82 06/07/25 15:13 Resp 18 06/07/25 15:13 BP 150/68 H 06/07/25 15:13 Pulse Ox 100 06/07/25 15:13 O2 Del Method Room Air 06/07/25 15:13 Results Labs Labs: Short CBC 06/07/25 Range/Units 15:47 WBC 6.0 (4.0-11.0) 10^3/uL Hgb 12.3 (12.0-16.0) g/dL Hct 35.6 L (36.0-48.0) % Plt Count 212 (150-450) 10^3/uL BMP 06/07/25 15:47 Sodium 139 Potassium 3.6 Chloride 105 Carbon Dioxide 21.9 BUN 23.0 H Creatinine 1.15 H Glucose 180 H Calcium 9.4 Liver Function 06/07/25 Range/Units 15:47 Total Bilirubin 0.3 (0.2-1.0) mg/dL AST 13 L (15-37) U/L ALT 22 (14-59) U/L Alkaline Phosphatase 72 (46-116) U/L Albumin 3.4 (3.4-5.0) g/dL Assessment and Plan Assessment and Plan (1) Cellulitis of foot: (2) Cellulitis of leg, right: Plan -Afebrile here, no leukocytosis -Elevated inflammatory markers -Xrays noted and reviewed -Continue IV AB as directed -Podiatry consult for input Pt seems eager to leave already, will continue to maintain IV AB and reevaluate in am Repeat labs in am Consideration for further imaging if pt agreeable to stay and her cellulitis does not improve d/w pt at bedside, all questions answered
--- OUTSIDE RECORDS SUMMARY | 2025-06-07 20:40 | XMS_ITS | CCD ---
Author Organization [facility] Care Team Providers Care Child Custody Evaluator Name Role Phone Lauren Vance Unavailable Antonio Thompson Unavailable Tang Mcclellan Unavailable DO Kristopher Herzog Primary Care Provider [phone] MD Tang Mcclellan Attending Provider IRAM Molina Attending Provider DO Kristopher Herzog Attending Provider [phone] DO Kristopher Herzog Primary Care Provider DO Kristopher Herzog Attending Provider [phone] DO Radha Verduzco Attending Provider [phone] DO Kristopher Herzog Primary Care Provider IRAM Molina Attending Provider [phone] DO Kristopher Herzog Attending Provider DO Radha Verduzco Attending Provider MD Edmond Branham Emergency Provider Olu Rene Unavailable DO Kristopher Herzog Primary Care Provider [phone] DO Kristopher Herzog Attending Provider Kiersten Qureshi Unavailable DO Kristopher Herzog Primary Care Provider MD Edmond Branham Emergency Provider DO Kristopher Herzog Attending Provider DO Radha Verduzco Attending Provider DO Kristopher Herzog Attending Provider FATIH Lobo Emergency Provider MD Rosalina Shelton Admit Provider MD Rosalina Shelton Attending Provider DO Chuy Kristopher Primary Care Provider DO Gabriel Castaneda Attending Provider DO Kristopher Herzog Primary Care Provider DO Kristopher Herzog Attending Provider DO Radha Verduzco Attending Provider NO FAMILY, PHYSICIAN Primary Care Provider Unava ilable Tita Roberts Unavailable Kristopher Herzog DO Unavailable [phone] Kristopher Herzog DO Primary Care Provider DO Kristopher Herzog Primary Care Provider DO Kristopher Herzog Attending Provider [phone] DO Chuy Kristopher Primary Care Provider DO Kristopher Herzog Attending Provider DO Radha Verduzco Attending Provider Ly, DO Sandy L Attending Provider DO Kristopher Herzog Primary Care Provider DO Johnny Keen Emergency Provider [phone] DO Kristopher Herzog Primary Care Provider DO Chuy Kristopher Primary Care Provider Kristopher Herzog DO Unavailable [phone] Kristopher Herzog Primary Care Unavailable Ly, Sandy L Admitting Unavailable Ly, Sandy L Attending Unavailable Johnny Keen Admitting Unavailable Johnny Keen Attending Unavailable Kristopher Herzog Primary Care Unavailable Radha Verduzco Admitting Unavailable Radha Verduzco Attending Unavailable Kristopher Herzog Primary Care Unavailable Kristopher Herzog DO Primary Care Provider [phone] Radha Verduzco DO Attending Provider Kristopher Herzog DO Primary Care Provider Kristopher Herzog DO Referring Provider Kiersten Qureshi RPH Attending Provider Toyin Roberts PharmD, Tita Attending Provider Kristopher Batista DO Primary Care Provider [phone] Kristopher Herzog DO Referring Provider [phone] Kiersten Qureshi RPH Attending Provider Karlos Ramey MD Primary Care Provider [phone] KRISTOPHER HERZOG Attending Unavailable KRISTOPHER HERZOG Referring [...] needed for pain take 2 tablets by [facility] twice daily as needed for pain acetaminophen (Tylenol Extra Strength) 5 00 MG tablet Take 1,000 mg by mouth 2 (two) times a day as needed for mild pain. Active Tylenol Active acetaminophen 325 mg / HYDROcodone bitartrate 5 mg oral tablet (20 sources) Opioid Agonist Start: 03-02-2025 End: 03-07-2025 take 1 tablet by mouth every six hours for pain HYDROcodone-acetaminophen ([place]) 5-325 MG tablet Indications: Hallux malleus, right , Right foot pain Take 1 tablet by mouth every 6 (six) hours if needed for severe pain for up to 5 days 20 tablet 03/02/2025 03/07/2025 Active Start: 02-16-2025 End: 02-21-2025 take 1 tablet by mouth every six hours for pain HYDROcodone-acetaminophen ([place]) 5-325 MG tablet Indications: Hallux malleus, right [...] six hours as needed for pain Hydrocodone-Acetaminophen ([place]) 5-325 mg tablet Discontinued 1 TAB PO [...] 30 g 2 09/17/2023 Active Continuous Glucose Clinical Resource Manager (FreeStyle [place]) device (20 sources) Start: 11-01-2024 Continuous Glu cose Clinical Resource Manager (FreeStyle [place]) device Indications: Diabetic peripheral neuropathy associated with type 2 diabetes mellitus (HCC) , correction current use of insulin ([facility]) USE I DEVICE CONTINUOUSLY 1 each 3 11/01/2024 Active Start: 11-01-2024 Continuous Glu cose Clinical Resource Manager (FreeStyle [place]) device Indications: Diabetic peripheral neuropathy associated with type 2 diabetes mellitus (CMS/HCC) , 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 (CMS/HCC) USE I DEVICE CONTINUOUSLY 1 each 3 11/01/2024 Active Start: 09-06-2024 End: 09-06-2025 Continuous Glucose Clinical Resource Manager (FreeStyle [place]) device Indications: Diabetic peripheral neuropathy associated with type 2 diabetes mellitus (CMS/HCC) , correction current use of insulin (CMS/HCC) 1 Device continuously 1 each 09/06/2024 09/06/2025 Active Continuous Glucose Sensor (FreeStyle [place]line 3 Sensor) misc (20 sources) Start: 09-06-2024 End: 09-06-2025 Continuous Glucose Sensor (FreeStyle Carline 3 Sensor) misc Indications: Diabetic peripheral neuropathy associated with type 2 diabetes mellitus (HCC) , 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 (HCC) 1 Device every 14 (fourteen) days 7 each 3 09/06/2024 09/06/2025 Active Start: 09-06-2024 End: 09-06-2025 Continuous Glucose Sensor (F reeStyle Carline 3 Sensor) [facility] Indications: Diabetic peripheral neuropathy associated with type 2 diabetes mellitus (CMS/HCC) , 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 (CMS/HCC) 1 Device [...] 2 tablets by mouth once daily Vitamins A,C,B-Pqkv-Lwsash (Preservision Areds) 7,160 unit- 113 mg-100 unit [...] 08, 2021 10:21am take 1 capsule by [facility] every twelve hours Gabapentin 100 MG [...] 2022 11:00pm November 09, 2023 9:07am nystatin [id number] unt/ml topical cream (20 sources) Polyene Antifungal [...] aftercare (20 sources) Drug therapy finding; Translations: [correction (current) use of 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s] Episodic Other aftercare [...] sources) Long-term current use of insulin; Translations: [vocational evaluator (current) use of insulin] Onset: 10-24-2016 06-08-2023 Episodic Other aftercare (20 sources) Long-term current use of 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; Translations: [vocational evaluator (current) use of 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s] Onset: 04-13-2018 06-08-2023 [...] Roberts on 03-13-2025 Bedside INR (LAB) 1.6 [facility] No Panel InformationOrdered By: Tita Roberts on 03-09-2025 Bedside INR (LAB) 1.4 Critically low [facility] XR Foot - right 3 [facility] [...] right hallux. Hammertoes to the lesser digits. [facility] Radiology Study observation (narrative) [facility] No Panel InformationOrdered By: Tita Roberts on 02-22-2025 Bedside INR (LAB) 3.8 [facility] XR Foot - right 3 [facility] Result: Three views of the right foot: AP, MO, LAT were performed today in the office. Radiographs were read by myself and demonstrate: No evidence of acute fracture or dislocation. 1st MPJ arthrodess right with enlarged distal medial proximal phalanx and lateral deviation of the hallux at the IPJ. [facility] Radiology Study observation (narrative) [facility] XR KNEE 3 VIEWS LEFTon 02-13 XR [...] signed and approved by the interpreting Radiologist. [facility] Radiology Study observation (narrative) [facility] XR Knee - left 3 ViewsOrdere d By: Edmond Morel on 02-13-2025 [facility] Work Phone: No Panel InformationOrdered By: Kiersten Qureshi on 02-09-2025 Bedside INR (LAB) 3.2 [facility] No Panel Informationon 02-01 Bedside INR (LAB) 4.0 [facility] ALL CBC WITH AUTO DIFFon BASOPHILS ABSOLUTE AUTO 0 [facility] Basophils/100 WBC (Bld) 0.6 % 0.2 - 2.0 % [facility] Eosinophils/100 WBC (Bld) 2.6 % 0.9 - 7.0 % [facility] Erythrocyte distribution width (RBC) [Ratio] 12.3 % 11.0 - 15.0 % [facility] Hematocrit (Bld) [Volume fraction] 37.5 % 36.0 - 48.0 % [facility] Hemoglobin (Bld) [Mass/Vol] 12.9 g/dL 12.0 - 16.0 g/dL [facility] IMMATURE GRANULOCYTES ABS AUTO 0.01 [facility] Immature granulocytes/100 WBC (Bld) 0.2 % 0.0 - 0.5 % [facility] Interpretation and review of laboratory results Abnormal [facility] LYMPHOCYTES ABSOLUTE AUTO 1.2 [facility] Lymphocytes/100 WBC (Bld) 24 % 20.5 - 60.0 % [facility] MCH (RBC) [Entitic mass] 33 pg 26.7 - 34.0 pg [facility] MCHC (RBC) [Mass/Vol] 34.4 g/dL 29.9 - 35.2 g/dL [facility] MCV (RBC) [Entitic vol] 95.9 fL 81.0 - 99.0 fL [facility] MONOCYTES ABSOLUTE AUTO 0.4 [facility] Monocytes/100 WBC (Bld) 8.3 % 1.7 - 12.0 % [facility] NEUTROPHILS ABSOLUTE AUTO 3.3 [facility] Neutrophils/100 WBC (Bld) 64.3 % 43.0 - 75.0 % [facility] Platelet mean volume (Bld) [Entitic vol] 10.8 fL 9.5 - 13.5 fL [facility] EO # 0.1 [facility] PLT 223 [facility] RBC 3.91 Low [facility] WBC 5.1 [facility] ALL BASIC METABOLIC PANELon 01-05-2025 Anion gap [Moles/Vol] 12.2 mmol/L [facility] Calcium [Mass/Vol] 8.9 mg/dL 8.5 - 10. 1 mg/dL [facility] Chloride [Moles/Vol] 105 mmol/L 98 - 10 7 mmol/L [facility] CO2 [Moles/Vol] 27 mmol/L 21.0 - 32.0 mmol/L [facility] Creatinine [Mass/Vol] 1.01 mg/dL 0.55 - 1.02 mg/dL [facility] GFR/1.73 sq M.predicted CKD-EPI (S/P/Bld) [Vol rate/Area] >60 >=60 mL/min/1.7 3m 2 [facility] Glucose [Mass/Vol] 143 mg/dL High 74 - 106 mg/dL [facility] Interpretation and review of laboratory results Abnormal [facility] Potassium [Moles/Vol] 4.2 mmol/L 3.5 - 5.1 mmol/L [facility] Sodium [Moles/Vol] 140 mmol/L 136 - 145 mmol/L [facility] EGFR-NON AF INDONESIAN 54 Low >=60 mL/min/1.7 3m 2 [facility] Urea nitrogen [Mass/Vol] 27 mg/dL High 7.0 - 18.0 mg/dL [facility] Urea nitrogen/Creatinine [Mass ratio] 26.7 mg/mg [facility] No Panel Informationon 01-04 Bedside INR (LAB) 2.7 [facility] MM diagnostic mammo BI w/CAD on 12-07-2024 MM diagnostic mammo BI w/CAD [facility] [address] [place] [address] Mammography Report Signed Patient: Nicol Frances MR#: [id number] 94 : 1950 Acct:[id number] Age/Sex: 74 / F Adm Date: 12/07/24 Loc: [place] Room: Type: [facility] Attending Dr: Radha Verduzco DO Ordering Provider: Radha Verduzco DO Date of Service: 12/07/24 Procedure(s): MM diagnostic mammo BI w/CAD Accession Number(s): ([id number]) MM/MM diagnostic mammo BI w/CAD: Yrly mamms [...] Leon Jr., Ronald.OOmari12/07/2024 9:30 AM Dictation Location: [facility] Dictated By: Noe De Leon Jr, DO 12/07/2422 Signed By: 12/07/24 0930 Normal [facility] Mammography reportOrdered By : Noe De Leon on 12-07-2024 Diagnostic imaging study [facility] [address] [place] [address] Mammography Report Signed Patient: Nicol Frances MR#: [id number] : 1950 Acct:[id number] Age/Sex: 74 / F Adm Date: 5 Loc: [place] Room: Type: [facility] Attending Dr: Radha Verduzco DO Ordering Provider: Radha Verduzco DO Date of Service: 12/07/24 Procedure(s): MM diagnostic mammo BI w/CAD Accession Number(s): ([id number]) MM/MM diagnostic mammo BI w/CAD: Yrly mamms [...] Jr, DO 12/07/24 0922 Signed By: 12/07/2430 [facility] No Panel Informationon 11-30 Bedside INR (LAB) 2.[address] [facility] [address] ABDOMEN PELVIS W IV CONTR [...] BY: Maurice Egan, DO Normal Not Available [facility] US LOWER EXTREMITY VENO US DUPLEX LEFTon [...] Panel Informationon 11-02 Bedside INR (LAB) 2.[address] [facility] [address] HEAD WO IV CONTRASTon CT [...] Panel Informationon 10-05 Bedside INR (LAB) 2.5 [facility] No Panel Informationon 09-09 Bedside INR (LAB) 2.3 [facility] No Panel Informationon 08-03 Bedside INR (LAB) 2.0 [facility] No Panel Informationon 07-04 Bedside INR (LAB) 2.2 [facility] Comprehensive metabolic pane jimbo 06-18-2024 Albumin [Mass/Vol] 4.1 g/dL 3.8 - 4.8 g/dL [facility] ALP [Catalytic activity/Vol] 53 U/L [facility] ALT [Catalytic activity/Vol] 12 U/L [facility] AST [Catalytic activity/Vol] 16 U/L [facility] Bilirubin [Mass/Vol] 0.2 mg/dL 0.0 - 1 .2 mg/dL [facility] Calcium [Mass/Vol] 9.6 mg/dL 8.7 - 10. 3 mg/dL [facility] Chloride [Moles/Vol] 104 mmol/L 96 - 10 6 mmol/L [facility] CO2 [Moles/Vol] 22 mmol/L 20 - 29 mmol/L [facility] Creatinine [Mass/Vol] 0.93 mg/dL 0.57 - 1.00 mg/dL [facility] GFR/1.73 sq M.predicted among non-blacks MDRD (S/P/Bld) [Vol rate/Area] 65 mL/min/{1.73_m2} 59 - PINF mL/min/1.7 3 [facility] Globulin (S) [Mass/Vol] 2.7 g/dL 1.5 - 4.5 g/dL [facility] Glucose [Mass/Vol] 126 mg/dL High 70 - 99 mg/dL [facility] Potassium [Moles/Vol] 4.8 mmol/L 3.5 - 5.2 mmol/L [facility] Protein [Mass/Vol] 6.8 g/dL 6.0 - 8.5 g/dL [facility] Sodium [Moles/Vol] 139 mmol/L 134 - 144 mmol/L [facility] Urea nitrogen [Mass/Vol] 18 mg/dL 8 - 27 mg/dL [facility] Urea nitrogen/Creatinine [Mass ratio] 19 mg/mg 12 - 28 [facility] Hemoglobin a1c with eagon Average glucose Estimated from glycated hemoglobin (Bld) [Mass/Vol] 163 mg/dL [facility] HbA1c (Bld) [Mass fraction] 7.3 % High 4.8 - 5.6 % [facility] Comment on above: Prediabetes: 5.7 - 6 .4 Diabetes: >6.4 Glycemic control for adults with diabetes: <7.0 Lipid 1996 panelon Cholesterol [Mass/Vol] 140 mg/dL 100 - 199 mg/dL [facility] Cholesterol in HDL [Mass/Vol] 45 mg/dL 39 - PINF mg/dL [facility] Cholesterol in LDL [Mass/Vol] 70 mg/dL 0 - 99 mg/dL [facility] Cholesterol in VLDL [Mass/Vol] 25 mg/dL 5 - 40 mg/dL [facility] Triglyceride [Mass/Vol] 143 mg/dL 0 - 149 mg/dL [facility] No Panel Informationon 06-18 Interpretation and review of laboratory results Abnormal [facility] Performed at: - [address] [id number] Waiter And Cashier: Juan Dunbar PhD, Phone: [phone] [facility] Specimen Status Reporton Clindamycin Disk diffusion (KB) [[facility]] Comment [facility] Comment on above: Ambig Abbrev CMP14 D efault Ambig Abbrev CMP14 Default A hand-written panel/profile was received from your office. In accordance with the [facility] Ambiguous Test Code Policy dated February 2003, we have completed your order by using the closest currently or formerly recognized AMA panel. We have assigned Comprehensive Metabolic Panel (14), Test Code #008198 to this request. If this is not the testing you wished to receive on this specimen, please contact the [facility] Client Inquiry/Technical Services Department to clarify the test order. We appreciate your business. Ambig Abbrev LP Default Ambig Abbrev LP Default A hand-written panel/profile was received from your office. In accordance with the [facility] Ambiguous Test Code Policy dated February 2003, we have completed your order by using the closest currently or formerly recognized AMA panel. We have assigned Lipid Panel, Test Code #025012 to this request. If this is not the testing you wished to receive on this specimen, please contact the [employer] Client Inquiry/Technical Services Department to clarify the test order. We appreciate your business. No Panel Informationon 06-06 Bedside INR (LAB) 2.1 [facility] No Panel Informationon 05-09 Bedside INR (LAB) 2.5 [facility] No Panel Informationon 04-14 Bedside INR (LAB) 2.5 [facility] No Panel Informationon 03-14 Bedside INR (LAB) 2.2 [facility] No Panel Informationon 02-16 Bedside INR (LAB) 2.1 [facility] Activated partial thrombopla stin time (aPTT) [...] coagulation studies. Please contact the laboratory at [phone] for redraw instructions. Automated basophil %Ordered By: Johnny Keen on 02-09-2024 Basophils/100 WBC (Bld) 0.6 % Normal . [facility] Comment on above: Performed By: #### P T, PTT, BMP, CBC #### [facility] [address] [place] [address] Automated basophil countOrde red By: Johnny Keen on 02-09-2024 Basophils (Bld) [#/Vol] 0.0 10*3/uL Normal 0.0-0.2 [facility] Comment on above: Result Comment: PERF ORMED BY: [place] [address] PATHOLOGIST CONTRACT ENGINEER GLENYS BARRON M.D. Performed By: #### P T, PTT, BMP, CBC #### [address] Automated blood monocyte cou ntOrdered By: Johnny Keen on 02-09-2024 Monocytes (Bld) [#/Vol] 0.5 10*3/uL Normal 0.0-0.8 [facility] Comment on above: Performed By: #### P T, PTT, BMP, CBC #### [facility] [address] [place] [address] Automated eosinophil %Ordere d By: Johnny Keen on 02-09-2024 Eosinophils/100 WBC (Bld) 0.4 % Normal . [facility] Comment on above: Performed By: #### P T, PTT, BMP, CBC #### [facility] [address] [place] [address] Automated eosinophil countOr dered By: Johnny Keen on 02-09-2024 Eosinophils (Bld) [#/Vol] 0.0 10*3/uL Normal 0.0-0.45 [facility] Comment on above: Performed By: #### P T, PTT, BMP, CBC #### [facility] [address] [place] [address] Automated epithelial cells c ount in urine sediment (number/area)Ordered By: Johnny Keen on 02-09-2024 Epithelial cells Auto (Urine sed) [#/Area] 10-19 [HPF] High 0-2 [facility] Automated monocyte %Ordered By: Johnny Keen on 02-09-2024 Monocytes/100 WBC (Bld) 8.0 % Normal . [facility] Comment on above: Performed By: #### P T, PTT, BMP, CBC #### [facility] [address] [place] [address] Automated neutrophil %Ordere d By: Johnny Keen on 02-09-2024 Neutrophils/100 WBC (Bld) 73.4 % Normal . [facility] Comment on above: Performed By: #### P T, PTT, BMP, CBC #### [facility] [address] [place] [address] Bacteria [Presence] in Urine by AutomatedOrdered By: Johnny Keen on 02-09-2024 Bacteria Auto Ql (U) 1+ [HPF] High None Seen [facility] Basic Metabolic Panelon 01-22 Creatinine Clr Calc Pharmacy 48.37 Normal [facility] Comment on above: Result Comment: PERF ORMED BY: [place] [address] PATHOLOGIST CONTRACT ENGINEER GLENYS BARRON M.D. Performed By: #### P T, PTT, BMP, CBC #### [facility] [address] [place] [address] GFR/1.73 sq M.predicted MDRD (S/P/Bld) [Vol rate/Area] 59.856 mL/min/{1.73_m2} Normal [facility] Comment on above: Performed By: #### P T, PTT, BMP, CBC #### [address] Bilirubin Test strip Ql (U)O rdered By: Johnny Keen on 02-09-2024 Bilirubin Ql (U) Negative Negative [facility] CT head/brain wo conon 02-08 CT head/brain wo con [facility] [place] [address] [place] [address] CT Scan Report Signed Patient: Nicol Frances MR#: [id number] [birth year] : 1950 Acct:[id number] Age/Sex: 73 / F ADM Date: 02/09/24 Loc: ER Room: Type: [facility] ER Attending Dr: Copies to: Johnny Keen DO Ordering Provider: Johnny Keen DO Date of Service: 02/09/24 CT/CT cervical spine wo con: fall ([id number]) CT/CT head/brain wo con: fall CLINICAL DATA: [...] M.D.02/09/2024 11:26 AM Dictation Location: [place] [address] Transcribed By: [facility] 02/09/24 1126 Dictated By: Denise Wallace MD 02/09/24 1114 Signed By: 02/09/24 1126 Normal [facility] CT lumbar spine wo con CT lumbar spine wo [facility] [place] [address] [place] [address] CT Scan Report Signed Patient: Nicol Frances MR#: [id number] [birth year] : 1950 Acct:[id number] Age/Sex: 73 / F ADM Date: 02/09/24 Loc: ER Room: Type: [facility] ER Attending Dr: Copies to: [...] M.D.02/09/2024 11:39 AM Dictation Location: [place] [address] Transcribed By: [facility] 02/09/24 1132 Dictated By: Denise Wallace MD 02/09/24 1126 Signed By: 02/09/24 1139 Normal [facility] Calcium [Mass/volume] in Ser um or PlasmaOrdered By: Johnny Keen on 02-09-2024 Calcium [Mass/Vol] 8.8 mg/dL Normal 8.6-10.3 [facility] Comment on above: Performed By: #### P T, PTT, BMP, CBC #### [address] Carbon dioxide, total [Moles /volume] in Serum or PlasmaOrdered By: Johnny Keen on 02-09-2024 CO2 [Moles/Vol] 22.0 mmol/L Normal 21.0-31.0 [facility] Comment on above: Performed By: #### P T, PTT, BMP, CBC #### [address] Casts typing in urine sedime nt by light microscopyOrdered By: Johnny Keen on 02-09-2024 Casts LM Nom (Urine sed) None seen [LPF] None Seen [facility] Chloride [Moles/volume] in S remi or PlasmaOrdered By: Johnny Keen on 02-09-2024 Chloride [Moles/Vol] 103 mmol/L Normal 98-107 [facility] Comment on above: Performed By: #### P T, PTT, BMP, CBC #### [address] Color of Urine by AutoOrdere d By: Johnny Keen on 02-09-2024 Color (U) Light-yellow Normal Yellow [facility] Comment on above: Order Comment: Name Collection Type:: Clean-Voided Midstream Performed By: #### C UU, ADDONUAPLUS #### [address] Complete Blood Count Auto Di ffon 02-09-2024 Mean Corpuscular HGB Conc 34.2 g/dL Normal 32.0-35.0 [facility] Comment on above: Performed By: #### P T, PTT, BMP, CBC #### [place] [address] [place] Monocytes/100 WBC (Bld) 17.76 % Normal 0.00-20.00 [facility] Comment on above: Performed By: #### P T, PTT, BMP, CBC #### [facility] [address] [place] [address] [place] NRBC% 0.0 /100{WBC} Normal 0-0.5 [facility] Comment on above: Performed By: #### P T, PTT, BMP, CBC #### [facility] [address] [place] [address] [place] Creatinine [Mass/volume] in Serum or PlasmaOrdered By: Johnny Keen on 02-09-2024 Creatinine [Mass/Vol] 1.00 mg/dL Normal 0.60-1.20 [facility] Comment on above: Performed By: #### P T, PTT, BMP, CBC #### [facility] [address] [place] [address] [place] Dipstick and Microscopicon 0 02-09-2024 Bacteria,Urine 1+ High None Seen [facility] Comment on above: Order Comment: Name Collection Type:: Clean-Voided Midstream Performed By: #### C UU, ADDONUAPLUS #### [place] [address] [place] Bilirubin,Urine Negative Normal Negative [facility] Comment on above: Order Comment: Name Collection Type:: Clean-Voided Midstream Performed By: #### C UU, ADDONUAPLUS #### [place] [address] [place] Glucose Ql (U) Normal Normal Normal [facility] Comment on above: Order Comment: Name Collection Type:: Clean-Voided Midstream Performed By: #### C UU, ADDONUAPLUS #### [facility] [address] [place] [id number] [place] Hyaline Casts,Urine None Seen Normal 0-8 [facility] Comment on above: Order Comment: Name Collection Type:: Clean-Voided Midstream Performed By: #### C UU, ADDONUAPLUS #### [facility] [address] [place] [address] [place] Nitrite,Urine Negative Normal Negative [facility] Comment on above: Order Comment: Name Collection Type:: Clean-Voided Midstream Performed By: #### C UU, ADDONUAPLUS #### [address] Occult Blood,Urine 1+ High Negative [facility] Comment on above: Order Comment: Name Collection Type:: Clean-Voided Midstream Result Comment: PERF ORMED BY: [place] [address] PATHOLOGIST CONTRACT ENGINEER GLENYS BARRON M.D. Performed By: #### C UU, ADDONUAPLUS #### [address] Other Casts,Urine None Seen Normal None Seen [facility] Comment on above: Order Comment: Name Collection Type:: Clean-Voided Midstream Result Comment: PERF ORMED BY: [place] [address] PATHOLOGIST CONTRACT ENGINEER GLENYS BARRON M.D. Performed By: #### C UU, ADDONUAPLUS #### [place] [address] [place] Protein,Urine Negative Normal Negative [facility] Comment on above: Order Comment: Name Collection Type:: Clean-Voided Midstream Performed By: #### C UU, ADDONUAPLUS #### [place] [address] [place] RBC,Urine None Seen Normal 0-4 [facility] Comment on above: Order Comment: Name Collection Type:: Clean-Voided Midstream Performed By: #### C UU, ADDONUAPLUS #### [place] [address] [place] Specificy Meacham,Urine 1.014 Normal 1.001-1.03 0 [facility] Comment on above: Order Comment: Name Collection Type:: Clean-Voided Midstream Performed By: #### C UU, ADDONUAPLUS #### [place] [address] [place] Squamous Epithelial Cell,Urine 10-19 High 0-2 [facility] Comment on above: Order Comment: Name Collection Type:: Clean-Voided Midstream Performed By: #### C UU, ADDONUAPLUS #### [facility] [address] [place] [address] Urobilinogen,Urine Normal Normal Normal [facility] Comment on above: Order Comment: Name Collection Type:: Clean-Voided Midstream Performed By: #### C UU, ADDONUAPLUS #### [facility] [address] [place] [address] WBC,Urine 20-49 High 0-4 [facility] Comment on above: Order Comment: Name Collection Type:: Clean-Voided Midstream Performed By: #### C UU, ADDONUAPLUS #### [address] ECG 12 lead ECGon 02-09-2024 ECG 12 lead ECG [facility] [place] [address] [place] [address] Electrocardiograph Report Signed Patient: Nicol Frances MR#: [id number] 94 : 1950 Acct:[id number] Age/Sex: 73 / F ADM Date: 02/09/24 Loc: ER Room: Type: [facility] ER Attending Dr: Ordering Provider: [...] was found Confirmed by Johnny Keen DO ([id number]) on 02/09/2024 3:32:04 PM Referred By: Electronically Signed By:Johnny Keen DO Transcribed By: MUS Signed By Johnny Keen DO 4 1532 Normal [facility] Erythrocyte distribution wid th [Ratio] by Automated countOrdered By: Johnny Keen on 02-09-2024 Erythrocyte distribution width (RBC) [Ratio] 14.1 % Normal 11.9-15.3 [facility] Comment on above: Performed By: #### P T, PTT, BMP, CBC #### [facility] [address] Erythrocytes [#/area] in Uri ne sediment by Automated countOrdered By: Johnny Keen on 02-09-2024 RBC Auto (Urine sed) [#/Area] None seen [HPF] 0-4 [facility] Erythrocytes [#/volume] in B lood by Automated countOrdered By: Johnny Keen on 02-09-2024 RBC (Bld) [#/Vol] 3.73 10*6/uL Normal 3.60-5.00 [facility] Comment on above: Performed By: #### P T, PTT, BMP, CBC #### [facility] [address] [place] [address] [place] Glucose [Mass/volume] in Ser um or PlasmaOrdered By: Johnny Keen on 02-09-2024 Glucose [Mass/Vol] 218 mg/dL High 70-100 [facility] Comment on above: ADA recommended refe rence rangeRandom Glucose Reference Range is dependent on time and content of last meal. Glucose of more than 200 mg/dL in a nonstressed, ambulatory subject supports the diagnosis of Diabetes Mellitus. Result Comment: [place] om Glucose Reference Range is dependent on time and content of last meal. Glucose of more than 200 mg/dL in a nonstressed, ambulatory subject supports the diagnosis of Diabetes Mellitus. ADA recommended reference range Performed By: #### P T, PTT, BMP, CBC #### [facility] [address] [place] [address] [place] Glucose [Mass/volume] in Uri ne by Test stripOrdered By: Johnny Keen on 02-09-2024 Glucose Test strip (U) [Mass/Vol] Normal mg/dL Normal [facility] Hematocrit [Volume Fraction] of Blood by Automated countOrdered By: Johnny Keen on 02-09-2024 Hematocrit (Bld) [Volume fraction] 36.4 % Normal 34.0-46.4 [facility] Comment on above: Performed By: #### P T, PTT, BMP, CBC #### [facility] [address] Hemoglobin Test strip Ql (U) Ordered By: Johnny Keen on 02-09-2024 Hemoglobin Ql (U) 1+ High Negative [facility] Hemoglobin [Mass/volume] in BloodOrdered By: Johnny Keen on 02-09-2024 Hemoglobin (Bld) [Mass/Vol] 12.4 g/dL Normal 11.8-15.4 [facility] Comment on above: Performed By: #### P T, PTT, BMP, CBC #### [facility] [address] INR in Platelet poor plasma by Coagulation assayOrdered By: Johnny Keen on 02-09-2024 INR Coag (PPP) [Relative time] 1.8 {INR} Normal [facility] Comment on above: INR Therapeutic Rang [...] By: #### P T, PTT, BMP, CBC ####[facility] [id number] Ketones [Presence] in Urine by Test stripOrdered By: Johnny Keen on 02-09-2024 Ketones Ql (U) Negative Normal Negative [facility] Comment on above: Order Comment: Name Collection Type:: Clean-Voided Midstream Performed By: #### C CALLI HUNTERUAPLUS #### [facility] [address] [place] [address] Laboratory - UrinalysisOrder ed By: Johnny Keen on 02-09-2024 Hyaline casts LM Ql (Urine sed) None seen [LPF] 0-8 [facility] Leukocyte esterase [Presence ] in Urine by Test stripOrdered By: Johnny Keen on 02-09-2024 Leukocyte esterase Test strip Ql (U) 4+ High Negative [facility] Comment on above: Order Comment: Name Collection Type:: Clean-Voided Midstream Performed By: #### C UU, ADDONUAPLUS #### [facility] [address] [place] [address] Leukocytes [#/area] in Urine sediment by Automated countOrdered By: Johnny Keen on 02-09-2024 WBC Auto (Urine sed) [#/Area] 20-49 [HPF] High 0-4 [facility] Leukocytes [#/volume] correc darío for nucleated erythrocytes in Blood by Automated counOrdered By: Johnny Keen on 02-09-2024 WBC corrected for nucl RBC Auto (Bld) [#/Vol] 6.0 10*3/uL 3.8-11.6 [facility] Leukocytes [#/volume] in Blo od by Automated countOrdered By: Johnny Keen on 02-09-2024 WBC (Bld) [#/Vol] 6.0 10*3/uL Normal 3.8-11.6 [facility] Comment on above: Performed By: #### P T, PTT, BMP, CBC #### [facility] [address] [place] [address] Lymphocytes [#/volume] in Bl ood by Automated countOrdered By: Johnny Keen on 02-09-2024 Lymphocytes (Bld) [#/Vol] 1.1 10*3/uL Normal 1.00-4.8 [facility] Comment on above: Performed By: #### P T, PTT, BMP, CBC #### [facility] [address] [place] [address] [place] Lymphocytes/100 leukocytes i n Blood by Automated countOrdered By: Johnny Keen on 02-09-2024 Lymphocytes/100 WBC (Bld) 17.6 % Normal . [facility] Comment on above: Performed By: #### P T, PTT, BMP, CBC #### [facility] [address] [place] [address] MCH [Entitic mass] by Automa darío countOrdered By: Johnny Keen on 02-09-2024 MCH (RBC) [Entitic mass] 33.4 pg Normal 24.7-34.3 [facility] Comment on above: Performed By: #### P T, PTT, BMP, CBC #### [facility] [address] [place] [address] MCHC Auto (RBC) [Mass/Vol]Or dered By: Johnny Keen on 02-09-2024 MCHC (RBC) [Mass/Vol] 34.2 g/dL 32.0-35.0 [facility] MCV [Entitic volume] by Auto mated countOrdered By: Johnny Keen on 02-09-2024 MCV (RBC) [Entitic vol] 97.6 fL Normal 80-100 [facility] Comment on above: Performed By: #### P T, PTT, BMP, CBC #### [facility] [address] [place] [address] Monocyte distribution width [Entitic volume] in Blood by AutomatedOrdered By: Johnny Keen on 02-09-2024 Monocyte distribution width Auto (Bld) [Entitic vol] 17.76 % 0.00-20.00 [facility] Neutrophils [#/volume] in Bl ood by Automated countOrdered By: Johnny Keen on 02-09-2024 Neutrophils (Bld) [#/Vol] 4.4 10*3/uL Normal 1.8-7.7 [facility] Comment on above: Performed By: #### P T, PTT, BMP, CBC #### [facility] [address] [place] [address] Nitrite Test strip Ql (U)Ord ered By: Johnny Keen on 02-09-2024 Nitrite Ql (U) Negative Negative [facility] No Panel InformationOrdered By: Johnny Keen on 02-09-2024 Estimated GFR (CKD-EPI) 59.856 mL/Min [facility] Creatinine Clearance (Chem 48.37 [facility] Nucleated erythrocytes [Pres ence] in Blood by Automated countOrdered By: Johnny Keen on 02-09-2024 Nucleated RBC Auto Ql (Bld) 0.0 /100{WBC} 0-0.5 [facility] Partial Thromboplastin Timeo n 02-09-2024 aPTT Coag (Bld) [Time] 37.1 s High 25.1-36.5 Th e [facility] Comment on above: Result Comment: A he matocrit value greater than 55% may lead to inaccurate results in coagulation testing. Patients having hematocrit values >55% require a special collection tube for coagulation studies. Please contact the laboratory at [phone] for redraw instructions. PERFORMED BY: [place] [address] PATHOLOGIST CONTRACT ENGINEER GLENYS BARRON M.D. Performed By: #### P T, PTT, BMP, CBC ####[facility] [id number] [place] [address] [place] Platelet mean volume [Entiti c volume] in Blood by Automated countOrdered By: Johnny Keen on 02-09-2024 Platelet mean volume (Bld) [Entitic vol] 8.4 fL Normal 6.3-10.7 [facility] Comment on above: Performed By: #### P T, PTT, BMP, CBC #### [facility] [address] [place] [address] [place] Platelets [#/volume] in Bloo d by Automated countOrdered By: Johnny Keen on 02-09-2024 Platelets (Bld) [#/Vol] 178 10*3/uL Normal 150-450 [facility] Comment on above: Performed By: #### P T, PTT, BMP, CBC #### [facility] [address] [place] [address] [place] Potassium [Moles/volume] in Serum or PlasmaOrdered By: Johnny Keen on 02-09-2024 Potassium [Moles/Vol] 3.9 mmol/L Normal 3.5-5.1 [facility] Comment on above: Performed By: #### P T, PTT, BMP, CBC #### [facility] [address] Protein Test strip (U) [Mass /Vol]Ordered By: Johnny Keen on 02-09-2024 Protein (U) [Mass/Vol] Negative Negative [facility] Prothrombin time (PT)Ordered By: Johnny Keen on 02-09-2024 PT Coag (PPP) [Time] 20.6 s High 9.0-12.9 [facility] Comment on above: A hematocrit value g reater than 55% may lead to inaccurate results in coagulation testing. Patients having hematocrit values >55% require a special collection tube for coagulation studies. Please contact the laboratory at [phone] for redraw instructions. Result Comment: A he matocrit value greater than 55% may lead to inaccurate results in coagulation testing. Patients having hematocrit values >55% require a special collection tube for coagulation studies. Please contact the laboratory at [phone] for redraw instructions. Performed By: #### P T, PTT, BMP, CBC ####[facility] Serum or plasma anion gap de terminationOrdered By: Johnny Keen on 02-09-2024 Anion gap [Moles/Vol] 12.9 mmol/L Normal 6.0-15.0 [facility] Comment on above: Performed By: #### P T, PTT, BMP, CBC #### [facility] [address] [place] [address] Sodium [Moles/volume] in Ser um or PlasmaOrdered By: Johnny Keen on 02-09-2024 Sodium [Moles/Vol] 134 mmol/L Low 136-145 [facility] Comment on above: Performed By: #### P T, PTT, BMP, CBC #### [facility] [address] [place] [id number] [facility] Specific gravity Test strip (U) [Rel density]Ordered By: Johnny Keen on 02-09-2024 Specific gravity (U) [Rel density] 1.014 1.001-1.03 0 [facility] Urea nitrogen [Mass/volume] in Serum or PlasmaOrdered By: Johnny Keen on 02-09-2024 Urea nitrogen [Mass/Vol] 22 mg/dL Normal 7-25 [facility] Comment on above: Performed By: #### P T, PTT, BMP, CBC #### [facility] [address] [place] [address] Urine Cultureon 02-09-2024 Bacteria identified Cx Nom (U) >100,000 colonies/ml mixed bacterial skin contaminants 2 Days PERFORMED BY: [place] [address] PATHOLOGIST CONTRACT ENGINEER GLENYS BARRON M.D. Normal [facility] Comment on above: Performed By: #### C UU, ADDONUAPLUS #### [address] Urine appearanceOrdered By: Johnny Keen on 02-09-2024 Appearance (U) Cloudy Critically abnormal Clear [facility] Comment on above: Order Comment: Name Collection Type:: Clean-Voided Midstream Performed By: #### C UU, ADDONUAPLUS #### [address] Urine culture routineOrdered By: Johnny Keen on 02-09-2024 Bacteria identified Cx Nom (U) 2 Days [facility] Urobilinogen Test strip (U) [Mass/Vol]Ordered By: Johnny Keen on 02-09-2024 Urobilinogen (U) [Mass/Vol] Normal mg/dL Normal [facility] pH of Urine by Test stripOrd ered By: Johnny Keen on 02-09-2024 pH (U) 6.5 [pH] Normal 5.0-9.0 [facility] Comment on above: Order Comment: Name Collection Type:: Clean-Voided Midstream Performed By: #### C UU, ADDONUAPLUS #### [facility] [address] [place] [address] No Panel Informationon 01-19 Bedside INR (LAB) 2.5 [facility] No Panel Informationon 01-04 Bedside INR (LAB) 2.1 [facility] Capillary blood glucose flakita urement by glucometer (mass/volume)Ordered By: Sandy Clark on 12-28-2023 Glucose [Mass/Vol] 170 mg/dL Normal [facility] Comment on above: Random Glucose Refer ence Range is dependent on time and content of last meal. Glucose of more than 200 mg/dL in a nonstressed, ambulatory subject supports the diagnosis of Diabetes Mellitus. Result Comment: [place] om Glucose Reference Range is dependent on time and content of last meal. Glucose of more than 200 mg/dL in a nonstressed, ambulatory subject supports the diagnosis of Diabetes Mellitus. Performed By: #### G LULS #### Point of Care testing , Glucose Poct Glucometerson 0 12-28-2023 Commemt1 Glu2: Cleaned Meter Normal [facility] Comment on above: Result Comment: PERF ORMED BY: [facility] [address] [place] [address] PATHOLOGIST CONTRACT ENGINEER GLENYS BARRON M.D. Performed By: #### G LULS #### Point of Care testing , INR in Platelet poor plasma by Coagulation assayOrdered By: Sandy Clark on 12-28-2023 INR Coag (PPP) [Relative time] 1.0 {INR} Normal [facility] Comment on above: INR Therapeutic Rang [...] heart valves: 3 - 4.5 PERFORMED BY: [place] [address] PATHOLOGIST CONTRACT ENGINEER GLENYS BARRON M.D. Performed By: #### P T #### [place] [id number] [place] Jimbo 12-28-2023 L Specimen: [id number] Received: 12/28/23 Status: TIERRA Russell Num: [id number] Spec Type: Surgical Subm Dr: Sandy Clark DO Tissues: A Colon Biopsy (RT COLON) B Colon Biopsy (TRANSV BX) C Colon Biopsy (LT COLON BX) Procedures: HE/6, Gross/Micro L4/3 Age/ Patient Sex Location Account Attending Physician Nicol Frances 73/F [id number] Sandy Clark DO SPEC NUM: [id number] RECD: 12/28/23 STATUS: TIERRA RUSSELL NUM: [id number] ROQUE: 12/28/23 DR: Sandy Clark DO ENTERED: 12/28/[address] [facility] [address]: SPEC TYPE: Surgical DEPT: [...] in C1. Clinical history: Ulcerative colitis Specimen: [id number] Received: 12/28/23 Status: TIERRA Russell Num: [id number] Spec Type: Surgical Subm Dr: Sandy Clark DO Tissues: A Colon Biopsy (RT COLON) B Colon Biopsy (TRANSV BX) C Colon Biopsy (LT COLON BX) Procedures: HE/6, Omar/Rupert L4/3 Patient: Nicol Frances [id number] (Continued) Specimen: [id number] Received: 12/28/23 (Continued) Signed (signature on file) Ac Beaulieu MD 12/29/23 1414 Specimen: [id number] Received: 12/28/23 Status: TIERRA Russell Num: [id number] Spec Type: Surgical Subm Dr: Sandy Clark DO Tissues: A Colon Biopsy (RT COLON) B Colon Biopsy (TRANSV BX) C Colon Biopsy (LT COLON BX) Procedures: HE/6, Gross/Micro L4/3 Patient: Nicol Frances [id number] (Continued) Specimen: [id number] Received: 12/28/23 (Continued) CPT Codes 85942y2 Specimen: [id number] Received: 12/28/23 Status: TIERRA Russell Num: [id number] Spec Type: Surgical Subm Dr: Sandy Clark, Tissues: A Colon Biopsy (RT COLON) B Colon Biopsy (TRANSV BX) C Colon Biopsy (LT COLON BX) Procedures: HE/6, Gross/Micro L4/3 Patient: Nicol Frances [place] [id number] (Continued) Signed (signature on file) Ac Beaulieu MD 12/29/23 1414 Normal [facility] No Panel InformationOrdered By: Sandy Clark on 12-28-2023 Bedside Glucose Comment Glu2: cleaned meter [facility] Prothrombin time (PT)Ordered By: Sandy Clark on 12-28-2023 PT Coag (PPP) [Time] 12.1 s Normal 9.0-12.9 [facility] Comment on above: A hematocrit value g reater than 55% may lead to inaccurate results in coagulation testing. Patients having hematocrit values >55% require a special collection tube for coagulation studies. Please contact the laboratory at [phone] for redraw instructions. Result Comment: A he matocrit value greater than 55% may lead to inaccurate results in coagulation testing. Patients having hematocrit values >55% require a special collection tube for coagulation studies. Please contact the laboratory at [phone] for redraw instructions. Performed By: #### P T #### [address] No Panel Informationon 12-13 Bedside INR (LAB) 2.0 [facility] No Panel Informationon 11-08 Bedside INR (LAB) 2.2 [facility] Prothrombin Time INRon 10-05 INR Coag (PPP) [Relative time] 2.6 {INR} [facility] Other Prothrombin Time INR [facility] [address] Other Prothrombin Time INRon 09-07 INR Coag (PPP) [Relative time] 2.6 {INR} [place] Other Prothrombin Time INR [facility] [address] Other Prothrombin Time INRon 08-11 INR Coag (PPP) [Relative time] 2.4 {INR} [place] Other Prothrombin Time INR [facility] [address] Other Prothrombin Time INRon 07-14 INR Coag (PPP) [Relative time] 2.4 {INR} [facility] Other Prothrombin Time INR [facility] [address] Other Prothrombin Time INRon 06-15 INR Coag (PPP) [Relative time] 2.8 {INR} [facility] Other Prothrombin Time INR [facility] [address] Other Prothrombin Time INRon 04-30 INR Coag (PPP) [Relative time] 2.6 {INR} [facility] Other Prothrombin Time INR [facility] [address] Other Prothrombin Time INRon 04-08 INR Coag (PPP) [Relative time] 3.1 {INR} [facility] Other Prothrombin Time INR [place] [address] Other Prothrombin Time INRon 03-23 INR Coag (PPP) [Relative time] 2.3 {INR} [place] [address] Other Prothrombin Time INR [facility] [address] Other Prothrombin Time INRon 03-11 INR Coag (PPP) [Relative time] 3.2 {INR} [place] [address] Other Prothrombin Time INR [facility] [address] Other Prothrombin Time INRon 02-23 INR Coag (PPP) [Relative time] 3.4 {INR} [place] Other Prothrombin Time INR [facility] Other Laboratory - CoagulationOrde red By: Gabriel Castaneda on 12-17-2022 PT Coag (PPP) [Time] 21.0 s 9.0-12.9 [facility] Platelet poor plasma interna tional normalized ratio (INR) by coagulation assay (relatOrdered By: Gabriel Castaneda on 12-17-2022 INR Coag (PPP) [Relative time] 1.8 {INR} [facility] Comment on above: INR Therapeutic Rang [...] Castaneda on 12-15-2022 Glucose [Mass/Vol] 223 mg/dL [facility] Comment on above: Random Glucose Refer ence [...] 12-15-2022 Bedside Glucose Comment Glu2: cleaned meter [facility] Platelet poor plasma interna tional normalized ratio (INR) by coagulation assay (relatOrdered By: Rosalina Shelton on 12-15-2022 INR Coag (PPP) [Relative time] 1.4 {INR} [facility] Comment on above: INR Therapeutic Rang [...] 12-14-2022 Basophils (Bld) [#/Vol] 0.0 10*3/uL 0.0-0.2 [facility] Basophils/100 WBC Auto (Bld) Ordered By: Rosalina Shelton on 12-14-2022 Basophils/100 WBC (Bld) 1.0 % . [facility] Calcium [Mass/volume] in Ser um or PlasmaOrdered By: Rosalina Shelton on 12-14-2022 Calcium [Mass/Vol] 8.1 mg/dL 8.6-10.3 [facility] Carbon dioxide, total [Moles /volume] in Serum or PlasmaOrdered By: Rosalina Shelton on 12-14-2022 CO2 [Moles/Vol] 24.8 mmol/L 21.0-31.0 [facility] Chloride [Moles/volume] in S remi or PlasmaOrdered By: Rosalina Shelton on 12-14-2022 Chloride [Moles/Vol] 105 mmol/L 98-107 [facility] Creatinine [Mass/volume] in Serum or PlasmaOrdered By: Rosalina Shelton on 12-14-2022 Creatinine [Mass/Vol] 0.98 mg/dL 0.60-1.20 [facility] Eosinophils Auto (Bld) [#/Vo l]Ordered By: Rosalina Shelton on 12-14-2022 Eosinophils (Bld) [#/Vol] 0.1 10*3/uL 0.0-0.45 [facility] Eosinophils/100 WBC Auto (Bl d)Ordered By: Rosalina Shelton on 12-14-2022 Eosinophils/100 WBC (Bld) 2.0 % . [facility] Erythrocyte distribution wid th Auto (RBC) [Ratio]Ordered By: Rosalina Shelton on 12-14-2022 Erythrocyte distribution width (RBC) [Ratio] 14.3 % 11.9-15.3 [facility] Glucose [Mass/volume] in Ser um or PlasmaOrdered By: Rosalina Shelton on 12-14-2022 Glucose [Mass/Vol] 149 mg/dL 70-100 [facility] Comment on above: ADA recommended refe rence rangeRandom Glucose Reference Range is dependent on time and content of last meal. Glucose of more than 200 mg/dL in a nonstressed, ambulatory subject supports the diagnosis of Diabetes Mellitus. Hematocrit Auto (Bld) [Volum e fraction]Ordered By: Rosalina Shelton on 12-14-2022 Hematocrit (Bld) [Volume fraction] 36.1 % 34.0-46.4 [facility] Hemoglobin [Mass/volume] in BloodOrdered By: Rosalina Shelton on 12-14-2022 Hemoglobin (Bld) [Mass/Vol] 12.1 g/dL 11.8-15.4 [facility] Leukocytes [#/volume] correc darío for nucleated erythrocytes in Blood by Automated counOrdered By: Rosalina Shelton on 12-14-2022 WBC corrected for nucl RBC Auto (Bld) [#/Vol] 4.4 10*3/uL 3.8-11.6 [facility] Lymphocytes Auto (Bld) [#/Vo l]Ordered By: Rosalina Shelton on 12-14-2022 Lymphocytes (Bld) [#/Vol] 1.3 10*3/uL 1.00-4.8 [facility] Lymphocytes/100 WBC Auto (Bl d)Ordered By: Rosalina Shelton on 12-14-2022 Lymphocytes/100 WBC (Bld) 28.6 % . [facility] MCH Auto (RBC) [Entitic mass ]Ordered By: Rosalina Shelton on 12-14-2022 MCH (RBC) [Entitic mass] 32.2 pg 24.7-34.3 [facility] MCHC Auto (RBC) [Mass/Vol]Or dered By: Rosalina Shelton on 12-14-2022 MCHC (RBC) [Mass/Vol] 33.4 g/dL 32.0-35.0 [facility] MCV Auto (RBC) [Entitic vol] Ordered By: Rosalina Shelton on 12-14-2022 MCV (RBC) [Entitic vol] 96.3 fL 80-100 [facility] Monocytes Auto (Bld) [#/Vol] Ordered By: Rosalina Shelton on 12-14-2022 Monocytes (Bld) [#/Vol] 0.5 10*3/uL 0.0-0.8 [facility] Monocytes/100 WBC Auto (Bld) Ordered By: Rosalina Shelton on 12-14-2022 Monocytes/100 WBC (Bld) 11.6 % . [facility] Neutrophils Auto (Bld) [#/Vo l]Ordered By: Rosalina Shelton on 12-14-2022 Neutrophils (Bld) [#/Vol] 2.5 10*3/uL 1.8-7.7 [facility] Neutrophils/100 WBC Auto (Bl d)Ordered By: Rosalina Shelton on 12-14-2022 Neutrophils/100 WBC (Bld) 56.8 % . [facility] No Panel InformationOrdered By: Rosalina Shelton on 12-14-2022 Estimated GFR (CKD-EPI) > 60.0 mL/Min [facility] Creatinine Clearance (Chem 54.33 [facility] Nucleated erythrocytes [Pres ence] in Blood by Automated countOrdered By: Rosalina Shelton on 12-14-2022 Nucleated RBC Auto Ql (Bld) 0.1 /100{WBC} 0-0.5 [facility] Platelet mean volume Auto (B ld) [Entitic vol]Ordered By: Rosalina Shelton on 12-14-2022 Platelet mean volume (Bld) [Entitic vol] 8.3 fL 6.3-10.7 [facility] Platelets Auto (Bld) [#/Vol] Ordered By: Rosalina Shelton on 12-14-2022 Platelets (Bld) [#/Vol] 197 10*3/uL 150-450 [facility] Potassium [Moles/volume] in Serum or PlasmaOrdered By: Rosalina Shelton on 12-14-2022 Potassium [Moles/Vol] 4.1 mmol/L 3.5-5.1 [facility] RBC Auto (Bld) [#/Vol]Ordere d By: Rosalina Shelton on 12-14-2022 RBC (Bld) [#/Vol] 3.75 10*6/uL 3.60-5.00 [facility] Serum or plasma anion gap de terminationOrdered By: Rosalina Shelton on 12-14-2022 Anion gap [Moles/Vol] TNP [facility] Comment on above: Test not performed Sodium [Moles/volume] in Ser um or PlasmaOrdered By: Rosalina Shelton on 12-14-2022 Sodium [Moles/Vol] 135 mmol/L 136-145 [facility] Comment on above: Hemolysis is present at a level that could interfere with the result. Troponin I.cardiac [Mass/vol ume] in Serum or Plasma by Detection limit <= 0.01 ng/Ordered By: Rosalina Shelton on 12-14-2022 Troponin I.cardiac DL <= 0.01 ng/mL [Mass/Vol] 6.3 pg/mL 0.0-15.0 [facility] Urea nitrogen [Mass/volume] in Serum or PlasmaOrdered By: Rosalina Shelton on 12-14-2022 Urea nitrogen [Mass/Vol] 13 mg/dL 7-25 [facility] WBC Auto (Bld) [#/Vol]Ordere d By: Rosalina Shelton on 12-14-2022 WBC (Bld) [#/Vol] 4.4 10*3/uL 3.8-11.6 [facility] Activated partial thrombopla stin time (aPTT) in platelet poor plasma by coagulation aOrdered By: Celio Lobo on 12-13-2022 aPTT Coag (PPP) [Time] 38.0 s 25.1-36.5 [facility] Alanine aminotransferase [En zymatic activity/volume] in Serum or PlasmaOrdered By: Celio Lobo on 12-13-2022 ALT [Catalytic activity/Vol] 14 U/L 7-52 [facility] Albumin [Mass/volume] in Ser um or Plasma by Bromocresol green (BCG) dye binding methoOrdered By: Celio Lobo on 12-13-2022 Albumin BCG dye [Mass/Vol] 3.8 g/dL 3.5-5.7 [facility] Alkaline phosphatase [Enzyma tic activity/volume] in Serum or PlasmaOrdered By: Celio Lobo on 12-13-2022 ALP [Catalytic activity/Vol] 51 U/L 34-104 [facility] Aspartate aminotransferase [ Enzymatic activity/volume] in Serum or PlasmaOrdered By: Celio Lobo 12-13-2022 AST [Catalytic activity/Vol] 18 U/L 13-39 [facility] Basophils Auto (Bld) [#/Vol] Ordered By: Celio Lobo 12-13-2022 Basophils (Bld) [#/Vol] 0.0 10*3/uL 0.0-0.2 [facility] Basophils/100 WBC Auto (Bld) Ordered By: Celio Lobo on 12-13-2022 Basophils/100 WBC (Bld) 1.0 % . [facility] Bilirubin Test strip Ql (U)O rdered By: Celio Lobo on 12-13-2022 Bilirubin Ql (U) Negative Negative [facility] Bilirubin.total [Mass/volume ] in Serum or PlasmaOrdered By: Celio Lobo 12-13-2022 Bilirubin [Mass/Vol] 0.3 mg/dL 0.3-1.0 [facility] Calcium [Mass/volume] in Ser um or PlasmaOrdered By: Celio Lobo 12-13-2022 Calcium [Mass/Vol] 8.5 mg/dL 8.6-10.3 [facility] Carbon dioxide, total [Moles /volume] in Serum or PlasmaOrdered By: Celio Lobo on 12-13-2022 CO2 [Moles/Vol] 23.2 mmol/L 21.0-31.0 [facility] Chloride [Moles/volume] in S remi or PlasmaOrdered By: Celio Lobo on 12-13-2022 Chloride [Moles/Vol] 106 mmol/L 98-107 [facility] Color Auto (U)Ordered By: Perez Lobo on 12-13-2022 Color (U) Yellow Yellow [facility] Creatinine [Mass/volume] in Serum or PlasmaOrdered By: Celio Lobo on 12-13-2022 Creatinine [Mass/Vol] 1.06 mg/dL 0.60-1.20 [facility] Eosinophils Auto (Bld) [#/Vo l]Ordered By: Celio Lobo on 12-13-2022 Eosinophils (Bld) [#/Vol] 0.1 10*3/uL 0.0-0.45 [facility] Eosinophils/100 WBC Auto (Bl d)Ordered By: Celio Lobo on 12-13-2022 Eosinophils/100 WBC (Bld) 1.2 % . [facility] Erythrocyte distribution wid th Auto (RBC) [Ratio]Ordered By: Celio Lobo on 12-13-2022 Erythrocyte distribution width (RBC) [Ratio] 14.6 % 11.9-15.3 [facility] Globulin Calc (S) [Mass/Vol] Ordered By: Celio Lobo on 12-13-2022 Globulin (S) [Mass/Vol] 2.8 g/dL [facility] Glucose Glucometer (BldC) [M ass/Vol]Ordered By: Celio Lobo on 12-13-2022 Glucose [Mass/Vol] 96 mg/dL [facility] Comment on above: Random Glucose Refer ence Range is dependent on time and content of last meal. Glucose of more than 200 mg/dL in a nonstressed, ambulatory subject supports the diagnosis of Diabetes Mellitus. Glucose [Mass/volume] in Ser um or PlasmaOrdered By: Celio Lobo on 12-13-2022 Glucose [Mass/Vol] 152 mg/dL 70-100 [facility] Comment on above: ADA recommended refe rence rangeRandom Glucose Reference Range is dependent on time and content of last meal. Glucose of more than 200 mg/dL in a nonstressed, ambulatory subject supports the diagnosis of Diabetes Mellitus. Hematocrit Auto (Bld) [Volum e fraction]Ordered By: Celio Lobo on 12-13-2022 Hematocrit (Bld) [Volume fraction] 37.8 % 34.0-46.4 [facility] Hemoglobin [Mass/volume] in BloodOrdered By: Celio Lobo on 12-13-2022 Hemoglobin (Bld) [Mass/Vol] 12.5 g/dL 11.8-15.4 [facility] Ketones Auto test strip (U) [Mass/Vol]Ordered By: Celio Lobo on 12-13-2022 Ketones (U) [Mass/Vol] Negative Negative [facility] - CoagulationOrde red By: Celio Lobo on 12-13-2022 PT Coag (PPP) [Time] 23.1 s 9.0-12.9 [facility] Leukocytes [#/volume] correc darío for nucleated erythrocytes in Blood by Automated counOrdered By: Celio Lobo on 12-13-2022 WBC corrected for nucl RBC Auto (Bld) [#/Vol] 4.9 10*3/uL 3.8-11.6 [facility] Lymphocytes Auto (Bld) [#/Vo l]Ordered By: Celio Lobo on 12-13-2022 Lymphocytes (Bld) [#/Vol] 1.5 10*3/uL 1.00-4.8 [facility] Lymphocytes/100 WBC Auto (Bl d)Ordered By: Celio Lobo on 12-13-2022 Lymphocytes/100 WBC (Bld) 29.8 % . [facility] MCH Auto (RBC) [Entitic mass ]Ordered By: Celio Lobo on 12-13-2022 MCH (RBC) [Entitic mass] 31.8 pg 24.7-34.3 [facility] MCHC Auto (RBC) [Mass/Vol]Or dered By: Celio Lobo on 12-13-2022 MCHC (RBC) [Mass/Vol] 33.1 g/dL 32.0-35.0 [facility] MCV Auto (RBC) [Entitic vol] Ordered By: Celio Lobo on 12-13-2022 MCV (RBC) [Entitic vol] 96.0 fL 80-100 [facility] Magnesium [Mass/volume] in S remi [...] Auto (Bld) [Entitic vol] 18.43 % 0.00-20.00 [facility] Monocytes Auto (Bld) [#/Vol] Ordered By: Celio Lobo on 12-13-2022 Monocytes (Bld) [#/Vol] 0.5 10*3/uL 0.0-0.8 [facility] Monocytes/100 WBC Auto (Bld) Ordered By: Celio Lobo on 12-13-2022 Monocytes/100 WBC (Bld) 9.9 % . [facility] Natriuretic peptide B [Mass/ Vol]Ordered By: Celio Lobo on 12-13-2022 Natriuretic peptide B (Bld) [Mass/Vol] 105.0 pg/mL 5-100 [facility] Neutrophils Auto (Bld) [#/Vo l]Ordered By: Celio Lobo on 12-13-2022 Neutrophils (Bld) [#/Vol] 2.8 10*3/uL 1.8-7.7 [facility] Neutrophils/100 WBC Auto (Bl d)Ordered By: Celio Lobo on 12-13-2022 Neutrophils/100 WBC (Bld) 58.1 % . [facility] Nitrite Test strip Ql (U)Ord ered By: Celio Lobo on 12-13-2022 Nitrite Ql (U) Negative Negative [facility] No Panel InformationOrdered By: Celio Lobo on 12-13-2022 Bedside Glucose #2 Comment Cleaned meter [facility] Bedside Glucose Comment See comment [facility] Comment on above: Glu2: WILL NOTIFY DR /RN Estimated GFR (CKD-EPI) 56.163 mL/Min [facility] Creatinine Clearance (Chem 51.30 [facility] No Panel InformationOrdered By: Rosalina Shelton on 12-13-2022 D-Dimer Quantitative (PE/DVT) < 200 ng/mL 0-243 [facility] Comment on above: The reference range [...] RBC Auto Ql (Bld) 0.0 /100{WBC} 0-0.5 [facility] Platelet mean volume Auto (B ld) [Entitic vol]Ordered By: Celio Lobo on 12-13-2022 Platelet mean volume (Bld) [Entitic vol] 8.4 fL 6.3-10.7 [facility] Platelet poor plasma interna tional normalized ratio (INR) by coagulation assay (relatOrdered By: Celio Lobo on 12-13-2022 INR Coag (PPP) [Relative time] 2.0 {INR} [facility] Comment on above: INR Therapeutic Rang [...] 12-13-2022 Platelets (Bld) [#/Vol] 221 10*3/uL 150-450 [facility] Potassium [Moles/volume] in Serum or PlasmaOrdered By: Celio Lobo on 12-13-2022 Potassium [Moles/Vol] 4.0 mmol/L 3.5-5.1 [facility] Protein Auto test strip (U) [Mass/Vol]Ordered By: Celio Lobo on 12-13-2022 Protein (U) [Mass/Vol] Negative Negative [facility] Protein [Mass/volume] in Ser um or PlasmaOrdered By: Celio Lobo on 12-13-2022 Protein [Mass/Vol] 6.6 g/dL 6.4-8.9 [facility] RBC Auto (Bld) [#/Vol]Ordere d By: Celio Lobo on 12-13-2022 RBC (Bld) [#/Vol] 3.94 10*6/uL 3.60-5.00 [facility] Serum or plasma albumin/glob ulin mass ratioOrdered By: Celio Lobo on 12-13-2022 Albumin/Globulin [Mass ratio] 1.4 {ratio} [facility] Serum or plasma anion gap de terminationOrdered By: Celio Lobo on 12-13-2022 Anion gap [Moles/Vol] 11.8 mmol/L 6.0-15.0 [facility] Sodium [Moles/volume] in Ser um or PlasmaOrdered By: Celio Lobo on 12-13-2022 Sodium [Moles/Vol] 137 mmol/L 136-145 [facility] Specific gravity Auto test s trip (U) [Rel density]Ordered By: Celio Lobo on 12-13-2022 Specific gravity (U) [Rel density] 1.006 1.001-1.03 0 [facility] Thyrotropin [Units/volume] i n Serum or PlasmaOrdered By: Rosalina Shelton on 12-13-2022 TSH Qn 4.39 m[IU]/L 0.45-5.33 [facility] Troponin I.cardiac [Mass/vol ume] in Serum or Plasma by Detection limit <= 0.01 ng/Ordered By: Celio Lobo on 12-13-2022 Troponin I.cardiac DL <= 0.01 ng/mL [Mass/Vol] 6.4 pg/mL 0.0-15.0 [facility] Urea nitrogen [Mass/volume] in Serum or PlasmaOrdered By: Celio Lobo on 12-13-2022 Urea nitrogen [Mass/Vol] 15 mg/dL 7-25 [facility] Urine clarity by refractomet ry automatedOrdered By: Celio Lobo on 12-13-2022 Clarity Refractometry automated (U) Clear Clear [facility] Urine glucose measurement by automated test strip (mass/volume)Ordered By: Celio Lobo on 12-13-2022 Glucose Auto test strip (U) [Mass/Vol] Normal mg/dL Normal [facility] Urine hemoglobin detection b y automated test stripOrdered By: Celio Lobo on 12-13-2022 Hemoglobin Auto test strip Ql (U) Negative Negative [facility] Urine leukocyte esterase det ection by automated test stripOrdered By: Celio Lobo on 12-13-2022 Leukocyte esterase Auto test strip Ql (U) Negative Negative [facility] Urobilinogen Auto test strip (U) [Mass/Vol]Ordered By: Celio Lobo on 12-13-2022 Urobilinogen (U) [Mass/Vol] Normal mg/dL Normal [facility] WBC Auto (Bld) [#/Vol]Ordere d By: Celio Lobo on 12-13-2022 WBC (Bld) [#/Vol] 4.9 10*3/uL 3.8-11.6 [facility] pH Auto test strip (U)Ordere d By: Celio Lobo on 12-13-2022 pH (U) 8.0 [pH] 5.0-9.0 [facility] Prothrombin Time INRon 12-10 INR Coag (PPP) [Relative time] 2.5 {INR} [employer] Other Prothrombin Time INR [address] Other Prothrombin Time INRon 11-12 INR Coag (PPP) [Relative time] 2.7 {INR} [address] Other Prothrombin Time INR [address] Other Prothrombin Time INRon 10-15 INR Coag (PPP) [Relative time] 2.7 {INR} [employer] Other Prothrombin Time INR [address] Other Automated erythrocytes count in urine sediment (number/area)Ordered By: Edmond Branham on 09-23-2022 RBC Auto (Urine sed) [#/Area] 1-2 [HPF] 0-4 [facility] Automated leukocytes count i n urine sediment (number/area)Ordered By: Edmond Branham on 09-23-2022 WBC Auto (Urine sed) [#/Area] 5-9 [HPF] 0-4 [facility] Basophils Auto (Bld) [#/Vol] Ordered By: dEmond Branham on 09-23-2022 Basophils (Bld) [#/Vol] 0.1 10*3/uL 0.0-0.2 [facility] Basophils/100 WBC Auto (Bld) Ordered By: Edmond Branham on 09-23-2022 Basophils/100 WBC (Bld) 1.1 % . [facility] Bilirubin Test strip Ql (U)O rdered By: Edmond Branham on 09-23-2022 Bilirubin Ql (U) Negative Negative [facility] Body fluid albumin measureme nt (mass/volume)Ordered By: Edmond Branham on 09-23-2022 Albumin (Body fld) [Mass/Vol] 3.7 g/dL 3.2-5.5 [facility] Color Auto (U)Ordered By: Kailey Branham on 09-23-2022 Color (U) Dark yellow Yellow [facility] Creatinine and Glomerular fi ltration rate.predicted panel (S/P/Bld)Ordered By: Edmond Branham on 09-23-2022 Creatinine [Mass/Vol] 1.15 mg/dL 0.44-1.03 [facility] Eosinophils Auto (Bld) [#/Vo l]Ordered By: Edmond Branham on 09-23-2022 Eosinophils (Bld) [#/Vol] 0.1 10*3/uL 0.0-0.45 [facility] Eosinophils/100 WBC Auto (Bl d)Ordered By: Edmond Branham on 09-23-2022 Eosinophils/100 WBC (Bld) 1.7 % . [facility] Erythrocyte distribution wid th Auto (RBC) [Ratio]Ordered By: Edmond Branham on 09-23-2022 Erythrocyte distribution width (RBC) [Ratio] 15.0 % 11.9-15.3 [facility] Estimated glomerular filtrat ion rate (GFR) non- AmericanOrdered By: Edmond Branham on 09-23-2022 GFR/1.73 sq M.predicted among non-blacks MDRD (S/P/Bld) [Vol rate/Area] 47 mL/Min [facility] Globulin Calc (S) [Mass/Vol] Ordered By: Edmond Branham on 09-23-2022 Globulin (S) [Mass/Vol] 2.9 g/dL [facility] Glucose Glucometer (BldC) [M ass/Vol]Ordered By: Edmond Branham on 09-23-2022 Glucose [Mass/Vol] 108 mg/dL [facility] Comment on above: Random Glucose Refer ence Range is dependent on time and content of last meal. Glucose of more than 200 mg/dL in a nonstressed, ambulatory subject supports the diagnosis of Diabetes Mellitus. Hematocrit Auto (Bld) [Volum e fraction]Ordered By: Edmond Branham on 09-23-2022 Hematocrit (Bld) [Volume fraction] 39.1 % 34.0-46.4 [facility] Hemoglobin [Mass/volume] in BloodOrdered By: Edmond Branham on 09-23-2022 Hemoglobin (Bld) [Mass/Vol] 13.3 g/dL 11.8-15.4 [facility] Ketones Auto test strip (U) [Mass/Vol]Ordered By: Edmond Branham on 09-23-2022 Ketones (U) [Mass/Vol] Negative Negative [facility] - UrinalysisOrder ed By: Edmond Branham on 09-23-2022 Hyaline casts LM Ql (Urine sed) 0-8 [LPF] 0-8 [facility] Leukocytes [#/volume] correc darío for nucleated erythrocytes in Blood by Automated counOrdered By: Edmond Branham on 09-23-2022 WBC corrected for nucl RBC Auto (Bld) [#/Vol] 5.2 10*3/uL 3.8-11.6 [facility] Lymphocytes Auto (Bld) [#/Vo l]Ordered By: Edmond Branham on 09-23-2022 Lymphocytes (Bld) [#/Vol] 1.6 10*3/uL 1.00-4.8 [facility] Lymphocytes/100 WBC Auto (Bl d)Ordered By: Edmond Branham on 09-23-2022 Lymphocytes/100 WBC (Bld) 31.1 % . [facility] MCH Auto (RBC) [Entitic mass ]Ordered By: Edmond Branham on 09-23-2022 MCH (RBC) [Entitic mass] 32.3 pg 24.7-34.3 [facility] MCHC Auto (RBC) [Mass/Vol]Or dered By: Edmond Branham on 09-23-2022 MCHC (RBC) [Mass/Vol] 34.0 g/dL 32.0-35.0 [facility] MCV Auto (RBC) [Entitic vol] Ordered By: Edmond Branham on 09-23-2022 MCV (RBC) [Entitic vol] 95.2 fL 80-100 [facility] Monocyte distribution width [Entitic volume] in Blood by AutomatedOrdered By: Edmond Branham on 09-23-2022 Monocyte distribution width Auto (Bld) [Entitic vol] 19.36 % 0.00-20.00 [facility] Monocytes Auto (Bld) [#/Vol] Ordered By: Edmond Branham on 09-23-2022 Monocytes (Bld) [#/Vol] 0.5 10*3/uL 0.0-0.8 [facility] Monocytes/100 WBC Auto (Bld) Ordered By: Edmond Branham on 09-23-2022 Monocytes/100 WBC (Bld) 10.2 % . [facility] Neutrophils Auto (Bld) [#/Vo l]Ordered By: Edmond Branham on 09-23-2022 Neutrophils (Bld) [#/Vol] 2.9 10*3/uL 1.8-7.7 [facility] Neutrophils/100 WBC Auto (Bl d)Ordered By: Edmond Branham on 09-23-2022 Neutrophils/100 WBC (Bld) 55.9 % . [facility] Nitrite Test strip Ql (U)Ord ered By: Edmond Branham on 09-23-2022 Nitrite Ql (U) Negative Negative [facility] No Panel InformationOrdered By: Edmond Branham on 09-23-2022 Estimated GFR () 56 mL/Min [facility] Comment on above: GFR estimated refere nce range: According to KDOQI guidelines, <60 ml/min/1.73m2 is sufficient to diagnose a patient with chronic kidney disease. Pharmacy Creatinine Clearance (Chem 46.55 [facility] Nucleated erythrocytes [Pres ence] in Blood by Automated countOrdered By: Edmond Branham on 09-23-2022 Nucleated RBC Auto Ql (Bld) 0.1 /100{WBC} 0-0.5 [facility] Platelet mean volume Auto (B ld) [Entitic vol]Ordered By: Edmond Branham on 09-23-2022 Platelet mean volume (Bld) [Entitic vol] 8.1 fL 6.3-10.7 [facility] Platelets Auto (Bld) [#/Vol] Ordered By: Edmond Branham on 09-23-2022 Platelets (Bld) [#/Vol] 183 10*3/uL 150-450 [facility] Protein Auto test strip (U) [Mass/Vol]Ordered By: Edmond Branham on 09-23-2022 Protein (U) [Mass/Vol] Negative Negative [facility] Protein [Mass/volume] in Ser um or PlasmaOrdered By: Edmond Branham on 09-23-2022 Protein [Mass/Vol] 6.6 g/dL 6.1-7.9 [facility] RBC Auto (Bld) [#/Vol]Ordere d By: Edmond Branham on 09-23-2022 RBC (Bld) [#/Vol] 4.10 10*6/uL 3.60-5.00 [facility] Serum or plasma alanine lugo otransferase measurement without P-5'-P (enzymatic activiOrdered By: Edmond Branham on 09-23-2022 ALT No additional P-5'-P [Catalytic activity/Vol] 15 U/L 10-60 [facility] Serum or plasma albumin/glob ulin mass ratioOrdered By: Edmond Branham on 09-23-2022 Albumin/Globulin [Mass ratio] 1.3 {ratio} [facility] Serum or plasma alkaline elijah sphatase measurement (enzymatic activity/volume)Ordered By: Edmond Branham on 09-23-2022 ALP [Catalytic activity/Vol] 57 U/L 32-92 [facility] Serum or plasma anion gap de terminationOrdered By: Edmond Branham on 09-23-2022 Anion gap [Moles/Vol] 15.9 mmol/L 6.0-15.0 [facility] Serum or plasma aspartate am inotransferase measurement (enzymatic activity/volume)Ordered By: Edmond Branham on 09-23-2022 AST [Catalytic activity/Vol] 20 U/L 10-42 [facility] Serum or plasma calcium flakita urement (mass/volume)Ordered By: Edmond Branham on 09-23-2022 Calcium [Mass/Vol] 9.3 mg/dL 8.2-10.2 [facility] Serum or plasma chloride patrice surement (moles/volume)Ordered By: Edmond Branham on 09-23-2022 Chloride [Moles/Vol] 103 mmol/L 95-114 [facility] Serum or plasma glucose flakita urement (mass/volume)Ordered By: Edmond Branham on 09-23-2022 Glucose [Mass/Vol] 103 mg/dL 70-100 [facility] Comment on above: ADA recommended refe rence rangeRandom Glucose Reference Range is dependent on time and content of last meal. Glucose of more than 200 mg/dL in a nonstressed, ambulatory subject supports the diagnosis of Diabetes Mellitus. Serum or plasma potassium me asurement (moles/volume)Ordered By: Edmond Branham on 09-23-2022 Potassium [Moles/Vol] 3.5 mmol/L 3.5-5.1 [facility] Serum or plasma sodium measu rement (moles/volume)Ordered By: Edmond Branham on 09-23-2022 Sodium [Moles/Vol] 137 mmol/L 136-146 [facility] Serum or plasma total biliru bin measurement (mass/volume)Ordered By: Edmond Branham on 09-23-2022 Bilirubin [Mass/Vol] 0.4 mg/dL 0.3-1.2 [facility] Serum or plasma total carbon dioxide measurement (moles/volume)Ordered By: Edmond Branham on 09-23-2022 CO2 [Moles/Vol] 21.6 mmol/L 22.0-30.0 [facility] Serum or plasma urea nitroge n measurement (mass/volume)Ordered By: Edmond Branham on 09-23-2022 Urea nitrogen [Mass/Vol] 13 mg/dL 9-23 [facility] Specific gravity Auto test s trip (U) [Rel density]Ordered By: Edmond Branham on 09-23-2022 Specific gravity (U) [Rel density] 1.012 1.001-1.03 0 [facility] Squamous epithelial cells de tection in urine sediment by light microscopyOrdered By: Edmond Branham on 09-23-2022 Epithelial cells.squamous LM Ql (Urine sed) 3-4 [HPF] 0-2 [facility] Troponin I.cardiac [Mass/vol ume] in Serum or Plasma by High sensitivity methodOrdered By: Edmond Branham on 09-23-2022 Troponin I.cardiac High sensitivity method [Mass/Vol] 6 pg/mL 0-15 [facility] Urine bacteria detection by automated methodOrdered By: Edmond Branham on 09-23-2022 Bacteria Auto Ql (U) None seen None Seen [facility] Urine clarity by refractomet ry automatedOrdered By: Edmond Branham on 09-23-2022 Clarity Refractometry automated (U) Clear Clear [facility] Urine culture routineOrdered By: Edmond Branham on 09-23-2022 Bacteria identified Cx Nom (U) 2 Days [facility] Urine glucose measurement by automated test strip (mass/volume)Ordered By: Edmond Branham on 09-23-2022 Glucose Auto test strip (U) [Mass/Vol] Normal mg/dL Normal [facility] Urine hemoglobin detection b y automated test stripOrdered By: Edmond Branham on 09-23-2022 Hemoglobin Auto test strip Ql (U) Negative Negative [facility] Urine leukocyte esterase det ection by automated test stripOrdered By: Edmond Branham on 09-23-2022 Leukocyte esterase Auto test strip Ql (U) 1+ Negative [facility] Urobilinogen Auto test strip (U) [Mass/Vol]Ordered By: Edmond Branham on 09-23-2022 Urobilinogen (U) [Mass/Vol] Normal mg/dL Normal [facility] WBC Auto (Bld) [#/Vol]Ordere d By: Edmond Branham on 09-23-2022 WBC (Bld) [#/Vol] 5.2 10*3/uL 3.8-11.6 [facility] pH Auto test strip (U)Ordere d By: Edmond Branham on 09-23-2022 pH (U) 8.0 [pH] 5.0-9.0 [facility] Prothrombin Time INRon 09-17 INR Coag (PPP) [Relative time] 3.2 {INR} [facility] Other Prothrombin Time INR [facility] [address] Other Prothrombin Time INRon 08-20 INR Coag (PPP) [Relative time] 2.5 {INR} [facility] Other Prothrombin Time INR [facility] [address] Other Prothrombin Time INRon 07-24 INR Coag (PPP) [Relative time] 3.5 {INR} [facility] Other Prothrombin Time INR [facility] [address] Other Prothrombin Time INRon 06-26 INR Coag (PPP) [Relative time] 1.7 {INR} [facility] Other Prothrombin Time INR [facility] [address] Other Prothrombin Time INRon 06-05 INR Coag (PPP) [Relative time] 2.6 {INR} [facility] Other Prothrombin Time INR [facility] Other Laboratory - CoagulationOrde red By: Marlon Molina on 05-29-2022 PT Coag (PPP) [Time] 12.3 s 9.0-12.9 [facility] Platelet poor plasma interna tional normalized ratio (INR) by coagulation assay (relatOrdered By: Marlon Molina on 05-29-2022 INR Coag (PPP) [Relative time] 1.1 {INR} [facility] Comment on above: INR Therapeutic Rang [...] INR Coag (PPP) [Relative time] 2.1 {INR} [facility] Other Prothrombin Time INR [address] Other Basophils Auto (Bld) [#/Vol] Ordered By: Marlon Molina on 05-20-2022 Basophils (Bld) [#/Vol] 0.0 10*3/uL 0.0-0.2 [facility] Basophils/100 WBC Auto (Bld) Ordered By: Marlon Molina on 05-20-2022 Basophils/100 WBC (Bld) 0.9 % . [facility] Blood hemoglobin measurement (mass/volume)Ordered By: Marlon Molina on 05-20-2022 Hemoglobin (Bld) [Mass/Vol] 13.4 g/dL 11.8-15.4 [facility] Blood leukocytes automated c ount (number/volume)Ordered By: Marlon Molina on 05-20-2022 WBC (Bld) [#/Vol] 5.2 10*3/uL 4.5-11.0 [facility] Body fluid albumin measureme nt (mass/volume)Ordered By: Marlon Molina on 05-20-2022 Albumin (Body fld) [Mass/Vol] 3.6 g/dL 3.2-5.5 [facility] Creatinine and Glomerular fi ltration rate.predicted panel (S/P/Bld)Ordered By: Marlon Molina on 05-20-2022 Creatinine [Mass/Vol] 1.04 mg/dL 0.44-1.03 [facility] Eosinophils Auto (Bld) [#/Vo l]Ordered By: Marlon Molina on 05-20-2022 Eosinophils (Bld) [#/Vol] 0.1 10*3/uL 0.0-0.45 [facility] Eosinophils/100 WBC Auto (Bl d)Ordered By: Marlon Molina on 05-20-2022 Eosinophils/100 WBC (Bld) 1.1 % . [facility] Erythrocyte distribution wid th Auto (RBC) [Ratio]Ordered By: Marlon Molina on 05-20-2022 Erythrocyte distribution width (RBC) [Ratio] 14.6 % 11.9-15.3 [facility] Estimated glomerular filtrat ion rate (GFR) non- AmericanOrdered By: Marlon Molina on 05-20-2022 GFR/1.73 sq M.predicted among non-blacks MDRD (S/P/Bld) [Vol rate/Area] 52 mL/Min [facility] Globulin Calc (S) [Mass/Vol] Ordered By: Marlon Molina on 05-20-2022 Globulin (S) [Mass/Vol] 2.8 g/dL [facility] Hematocrit Auto (Bld) [Volum e fraction]Ordered By: Marlon Molina on 05-20-2022 Hematocrit (Bld) [Volume fraction] 39.7 % 34.0-46.4 [facility] Laboratory - Hematology and Cell countsOrdered By: Marlon Molina on 05-20-2022 Nucleated RBC/100 WBC (Bld) [Ratio] 0.0 % 0-0.5 [facility] Lymphocytes Auto (Bld) [#/Vo l]Ordered By: Marlon Molina on 05-20-2022 Lymphocytes (Bld) [#/Vol] 1.2 10*3/uL 1.00-4.8 [facility] Lymphocytes/100 WBC Auto (Bl d)Ordered By: Marlon Molina on 05-20-2022 Lymphocytes/100 WBC (Bld) 22.5 % . [facility] MCH Auto (RBC) [Entitic mass ]Ordered By: Marlon Molina on 05-20-2022 MCH (RBC) [Entitic mass] 32.5 pg 24.7-34.3 [facility] MCHC Auto (RBC) [Mass/Vol]Or dered By: Marlon Molina on 05-20-2022 MCHC (RBC) [Mass/Vol] 33.7 g/dL 32.0-35.0 [facility] MCV Auto (RBC) [Entitic vol] Ordered By: Marlon Molina on 05-20-2022 MCV (RBC) [Entitic vol] 96.3 fL 80-100 [facility] Monocytes Auto (Bld) [#/Vol] Ordered By: Marlon Molina on 05-20-2022 Monocytes (Bld) [#/Vol] 0.4 10*3/uL 0.0-0.8 [facility] Monocytes/100 WBC Auto (Bld) Ordered By: Marlon Molina on 05-20-2022 Monocytes/100 WBC (Bld) 7.1 % . [facility] Neutrophils Auto (Bld) [#/Vo l]Ordered By: Marlon Molina on 05-20-2022 Neutrophils (Bld) [#/Vol] 3.6 10*3/uL 1.8-7.7 [facility] Neutrophils/100 WBC Auto (Bl d)Ordered By: Marlon Molina on 05-20-2022 Neutrophils/100 WBC (Bld) 68.4 % . [facility] No Panel InformationOrdered By: Marlon Molina on 05-20-2022 Estimated GFR () > 60 mL/Min [facility] Comment on above: GFR estimated refere nce range: According to KDOQI guidelines, <60 ml/min/1.73m2 is sufficient to diagnose a patient with chronic kidney disease. Pharmacy Creatinine Clearance (Chem N/A [facility] Platelet mean volume Auto (B ld) [Entitic vol]Ordered By: Marlon Molina on 05-20-2022 Platelet mean volume (Bld) [Entitic vol] 8.8 fL 6.3-10.7 [facility] Platelets Auto (Bld) [#/Vol] Ordered By: Marlon Molina on 05-20-2022 Platelets (Bld) [#/Vol] 224 10*3/uL 150-450 [facility] Protein [Mass/volume] in Ser um or PlasmaOrdered By: Marlon Molina on 05-20-2022 Protein [Mass/Vol] 6.4 g/dL 6.1-7.9 [facility] RBC Auto (Bld) [#/Vol]Ordere d By: Marlon Molina on 05-20-2022 RBC (Bld) [#/Vol] 4.13 10*6/uL 3.60-5.00 [facility] Serum or plasma alanine lugo otransferase measurement without P-5'-P (enzymatic activiOrdered By: Marlon Molina on 05-20-2022 ALT No additional P-5'-P [Catalytic activity/Vol] 18 U/L 10-60 [facility] Serum or plasma albumin/glob ulin mass ratioOrdered By: Marlon Molina on 05-20-2022 Albumin/Globulin [Mass ratio] 1.3 {ratio} [facility] Serum or plasma alkaline elijah sphatase measurement (enzymatic activity/volume)Ordered By: Marlon Molina on 05-20-2022 ALP [Catalytic activity/Vol] 51 U/L 32-92 [facility] Serum or plasma anion gap de terminationOrdered By: Marlon Molina on 05-20-2022 Anion gap [Moles/Vol] 16.4 mmol/L 6.0-15.0 [facility] Serum or plasma aspartate am inotransferase measurement (enzymatic activity/volume)Ordered By: Marlon Molina on 05-20-2022 AST [Catalytic activity/Vol] 21 U/L 10-42 [facility] Serum or plasma calcium flakita urement (mass/volume)Ordered By: Marlon Molina on 05-20-2022 Calcium [Mass/Vol] 8.8 mg/dL 8.2-10.2 [facility] Serum or plasma chloride patrice surement (moles/volume)Ordered By: Marlon Molina on 05-20-2022 Chloride [Moles/Vol] 99 mmol/L 95-114 [facility] Serum or plasma glucose flakita urement (mass/volume)Ordered By: Marlon Molina on 05-20-2022 Glucose [Mass/Vol] 191 mg/dL 70-100 [facility] Comment on above: ADA recommended refe rence rangeRandom Glucose Reference Range is dependent on time and content of last meal. Glucose of more than 200 mg/dL in a nonstressed, ambulatory subject supports the diagnosis of Diabetes Mellitus. Serum or plasma potassium me asurement (moles/volume)Ordered By: Marlon Molina on 05-20-2022 Potassium [Moles/Vol] 4.1 mmol/L 3.5-5.1 [facility] Serum or plasma sodium measu rement (moles/volume)Ordered By: Marlon Molina on 05-20-2022 Sodium [Moles/Vol] 136 mmol/L 136-146 [facility] Serum or plasma total biliru bin measurement (mass/volume)Ordered By: Marlon Molina on 05-20-2022 Bilirubin [Mass/Vol] 0.3 mg/dL 0.3-1.2 [facility] Serum or plasma total carbon dioxide measurement (moles/volume)Ordered By: Marlon Molina on 05-20-2022 CO2 [Moles/Vol] 24.7 mmol/L 22.0-30.0 [facility] Serum or plasma urea nitroge n measurement (mass/volume)Ordered By: Marlon Molina on 05-20-2022 Urea nitrogen [Mass/Vol] 15 mg/dL 9-23 [facility] Prothrombin Time INRon 05-06 INR Coag (PPP) [Relative time] 1.5 {INR} [facility] Other Prothrombin Time INR [address] Other Prothrombin Time INRon 04-08 INR Coag (PPP) [Relative time] 1.8 {INR} [facility] Other Prothrombin Time INR [facility] Other Prothrombin Time INRon 03-13 INR Coag (PPP) [Relative time] 2.3 {INR} [facility] Other Prothrombin Time INR [facility] Other Prothrombin Time INRon 02-27 INR Coag (PPP) [Relative time] 2.3 {INR} [facility] Other Prothrombin Time INR [facility] Other COVID-19 Positive/NegativeOr dered By: Tang Mcclellan on 02-26-2022 SARS-CoV-2 (COVID-19) N gene ZHAO+probe Ql (Resp) Negative Negative [facility] Comment on above: Testing for SARS-CoV -2 by RT-PCRThis test was developed and its performance characteristics determined by [employer] ([employer]) and validated at the [facility]. This test has not been FDA [...] INR Coag (PPP) [Relative time] 2.0 {INR} [facility] Other Prothrombin Time INR [facility] Other Prothrombin Time INRon 01-06 INR Coag (PPP) [Relative time] 1.4 {INR} [facility] Other Prothrombin Time INR [facility] Other Prothrombin Time INRon 12-23 INR Coag (PPP) [Relative time] 1.7 {INR} [facility] Other Prothrombin Time INR [facility] [address] Other Prothrombin Time INRon 12-11 INR Coag (PPP) [Relative time] 2.9 {INR} [place] [address] Other Prothrombin Time INR [facility] Other Prothrombin Time INRon 11-27 INR Coag (PPP) [Relative time] 1.7 {INR} [place] [address] Other Prothrombin Time INR [facility] [address] Other Prothrombin Time INRon 11-12 INR Coag (PPP) [Relative time] 1.9 {INR} [place] [address] Other Prothrombin Time INR [facility] [address] Other Prothrombin Time INRon 10-31 INR Coag (PPP) [Relative time] 2.1 {INR} [place] [address] Other Prothrombin Time INR [facility] [address] Other Prothrombin Time INRon 10-14 INR Coag (PPP) [Relative time] 2.5 {INR} [place] [address] Other Prothrombin Time INR [facility] [address] Other Prothrombin Time INRon 09-30 INR Coag (PPP) [Relative time] 2.6 {INR} [place] [address] Other Prothrombin Time INR [facility] [address] Other Prothrombin Time INRon 09-12 INR Coag (PPP) [Relative time] 1.8 {INR} [facility] Other Prothrombin Time INR [facility] [address] Other Prothrombin Time INRon 08-29 INR Coag (PPP) [Relative time] 2.1 {INR} [facility] Other Prothrombin Time INR [address] Other Prothrombin Time INRon 08-15 Prothrombin Time INR 1.5 [facility] Other Prothrombin Time INRon 08-01 INR Coag (PPP) [Relative time] 2.5 {INR} [facility] Other Prothrombin Time INR [facility] Other Prothrombin Time INRon 07-15 INR Coag (PPP) [Relative time] 2.6 {INR} [facility] Other Prothrombin Time INR [facility] Other Prothrombin Time INRon 07-03 INR Coag (PPP) [Relative time] 2.4 {INR} [facility] Other Prothrombin Time INR [facility] [address] Other Prothrombin Time INRon 06-19 INR Coag (PPP) [Relative time] 1.8 {INR} [facility] Other Prothrombin Time INR [facility] Other Prothrombin Time INRon 05-28 INR Coag (PPP) [Relative time] 2.1 {INR} [facility] Other Prothrombin Time INR [facility] [address] Other Prothrombin Time INRon 05-15 INR Coag (PPP) [Relative time] 1.6 {INR} [facility] Other Prothrombin Time INR [facility] [address] Other Vital Signs Date Time Vital Sign Value Performing Clinician Facility 02-13-2025 08:40-0400 Body height 154.9 cm Venita Marques [employer]ER MACHINE OPERATOR Work Phone: [facility] 02-13-2025 08:40-0400 Body mass index (BMI) [Ratio] 34.31 kg/m2 Venita Marques NP Work Phone: [facility] 02-13-2025 08:40-0400 Body weight 82.37 kg Venita Didion [employer]LLER MACHINE OPERATOR Work Phone: [facility] 02-13-2025 08:40-0400 Diastolic blood pressure 70 mm[Hg] Venita Didion KELLER MACHINE OPERATOR Work Phone: [facility] 02-13-2025 08:40-0400 Heart rate 74 /min Venita Didion KELLER MACHINE OPERATOR Work Phone: [facility] 02-13-2025 08:40-0400 Respiratory rate 16 /min Venita Didion KELLER MACHINE OPERATOR Work Phone: [facility] 02-13-2025 08:40-0400 SaO2% (BldA) [Mass fraction] 98 % Venita Didion KELLER MACHINE OPERATOR Work Phone: [facility] 02-13-2025 08:40-0400 Systolic blood pressure 112 mm[Hg] Venita Didion KELLER MACHINE OPERATOR Work Phone: [facility] 01-09-2025 08:47-0400 Body height 154.9 cm Kristopher Herzog DO Work Phone: [facility] 01-09-2025 08:47-0400 Body mass index (BMI) [Ratio] 33.82 kg/m2 Kristophervince Herzog DO Work Phone: [facility] 01-09-2025 08:47-0400 Body weight 81.19 kg Kristophervince Herzog DO Work Phone: [facility] 01-09-2025 08:47-0400 Diastolic blood pressure 72 mm[Hg] Kristopher Chuy DO Work Phone: [facility] 01-09-2025 08:47-0400 Heart rate 68 /min Kristopher Chuy DO Work Phone: [facility] 01-09-2025 08:47-0400 SaO2% (BldA) [Mass fraction] 97 % Kristopher Chuy DO Work Phone: [facility] 01-09-2025 08:47-0400 Systolic blood pressure 112 mm[Hg] Kristopher Herzog DO Work Phone: [facility] 12-16-2024 09:20-0400 Body height 154.9 cm Radha Itzkowitz DO Work Phone: [facility] 12-16-2024 09:20-0400 Body mass index (BMI) [Ratio] 32.5 kg/m2 Radha Itzkowitz DO Work Phone: [facility] 12-16-2024 09:20-0400 Body weight 78.02 kg Radha Itzkomeletz DO Work Phone: [facility] 12-14-2024 09:01-0400 Body height 154.9 cm Kristopher Herzog DO Work Phone: [facility] 12-14-2024 09:01-0400 Body mass index (BMI) [Ratio] 32.61 kg/m2 Kristopher Herzog DO Work Phone: [facility] 12-14-2024 09:01-0400 Body weight 78.29 kg Kristopher Herzog DO Work Phone: [facility] 12-14-2024 09:01-0400 Heart rate 72 /min Kristopher Herzog DO Work Phone: [facility] 12-14-2024 09:01-0400 SaO2% (BldA) [Mass fraction] 99 % Kristopher Herzog DO Work Phone: [facility] 10-25-2024 14:36-0500 Diastolic blood pressure 58 mm[Hg] Venita Didion KELLER MACHINE OPERATOR Work Phone: [facility] 10-25-2024 14:36-0500 Heart rate 74 /min Venita Didion KELLER MACHINE OPERATOR Work Phone: [facility] 10-25-2024 14:36-0500 Respiratory rate 16 /min Venita Didion KELLER MACHINE OPERATOR Work Phone: [facility] 10-25-2024 14:36-0500 SaO2% (BldA) [Mass fraction] 98 % Venita Marques KELLER MACHINE OPERATOR Work Phone: [facility] 10-25-2024 14:36-0500 Systolic blood pressure 120 mm[Hg] Venita Marques KELLER MACHINE OPERATOR Work Phone: [facility] 10-07-2024 09:08-0500 Body height 154.94 cm [facility] 10-07-2024 09:08-0500 Body mass index (BMI) [Ratio] 33.6 kg/m2 [facility] 10-07-2024 09:08-0500 Body weight 80.73 kg [facility] 10-07-2024 09:08-0500 Diastolic blood pressure 75 mm[Hg] [facility] 10-07-2024 09:08-0500 Heart rate 73 /min [facility] 10-07-2024 09:08-0500 Systolic blood pressure 127 mm[Hg] [facility] 10-03-2024 09:14-0500 Body height 156.2 cm Kristopher Herzog DO Work Phone: [facility] 10-03-2024 09:14-0500 Body mass index (BMI) [Ratio] 33.09 kg/m2 Kristopher Chuy DO Work Phone: [facility] 10-03-2024 09:14-0500 Body weight 80.74 kg Kristopher Herzog DO Work Phone: [facility] 10-03-2024 09:14-0500 Diastolic blood pressure 58 mm[Hg] Kristopher Herzog DO Work Phone: [facility] 10-03-2024 09:14-0500 Heart rate 74 /min Kristopher Herzog DO Work Phone: [facility] 10-03-2024 09:14-0500 SaO2% (BldA) [Mass fraction] 99 % Kristopher Hrezog DO Work Phone: [facility] 10-03-2024 09:14-0500 Systolic blood pressure 120 mm[Hg] Kristopher Herzog DO Work Phone: [facility] 06-29-2024 10:39-0500 Body height 154.94 cm [facility] 06-29-2024 10:39-0500 Body mass index (BMI) [Ratio] 33.8 kg/m2 [facility] 06-29-2024 10:39-0500 Body weight 81.19 kg [facility] 06-22-2024 08:50-0400 Body height 156.2 cm Adam Rodriguez KELLER MACHINE OPERATOR Work Phone: [facility] 06-22-2024 08:50-0400 Body mass index (BMI) [Ratio] 33.09 kg/m2 dAam Rodriguez KELLER MACHINE OPERATOR Work Phone: [facility] 06-22-2024 08:50-0400 Body weight 80.74 kg Adam Rodriguez KELLER MACHINE OPERATOR Work Phone: [facility] 06-22-2024 08:50-0400 Diastolic blood pressure 74 mm[Hg] Adam Rodriguez KELLER MACHINE OPERATOR Work Phone: [facility] 06-22-2024 08:50-0400 Heart rate 79 /min Adam Rodriguez KELLER MACHINE OPERATOR Work Phone: [facility] 06-22-2024 08:50-0400 SaO2% (BldA) [Mass fraction] 99 % Adam Rodriguez KELLER MACHINE OPERATOR Work Phone: [facility] 06-22-2024 08:50-0400 Systolic blood pressure 120 mm[Hg] Adam Rodriguez KELLER MACHINE OPERATOR Work Phone: [facility] 04-29-2024 08:53-0400 Body height 156.2 cm Radha Itzkowitz DO Work Phone: [facility] 04-29-2024 08:53-0400 Body mass index (BMI) [Ratio] 33.46 kg/m2 Radha Itzkowitz DO Work Phone: [facility] 04-29-2024 08:53-0400 Body weight 81.65 kg Radha Itzkowitz DO Work Phone: [facility] 04-29-2024 08:53-0400 Diastolic blood pressure 74 mm[Hg] Radha Itzkowitz DO Work Phone: [facility] 04-29-2024 08:53-0400 Systolic blood pressure 122 mm[Hg] Radha Itzkowitz DO Work Phone: [facility] 02-09-2024 11:03-0400 Diastolic blood pressure 60 mm[Hg] DO Kristopher Chuy Work Phone: [facility] 02-09-2024 11:03-0400 Heart rate 76 /min DO Kristopher Chuy Work Phone: [facility] 02-09-2024 11:03-0400 Respiratory rate 16 /min DO Kristopher Chuy Work Phone: [facility] 02-09-2024 11:03-0400 SaO2% (BldA) [Mass fraction] 99 % DO Kristopher Chuy Work Phone: [facility] 02-09-2024 11:03-0400 Systolic blood pressure 128 mm[Hg] DO Kristopher Chuy Work Phone: [facility] 02-09-2024 09:32-0400 Body height 154.94 cm DO Kristopher Chuy Work Phone: [facility] 02-09-2024 09:32-0400 Body temperature 99 [degF] DO Kristopher Chuy Work Phone: [facility] 02-09-2024 09:32-0400 Body weight 78.92 kg DO Kristopher Chuy Work Phone: [facility] 12-28-2023 11:17-0400 Diastolic blood pressure 77 mm[Hg] DO Kristopher Chuy Work Phone: [facility] 12-28-2023 11:17-0400 Heart rate 77 /min DO Kristopher Chuy Work Phone: [facility] 12-28-2023 11:17-0400 Respiratory rate 16 /min DO Kristopher Herzog Work Phone: [facility] 12-28-2023 11:17-0400 SaO2% (BldA) [Mass fraction] 99 % DO Kristopher Herzog Work Phone: [facility] 12-28-2023 11:17-0400 Systolic blood pressure 113 mm[Hg] DO Kristopher Herzog Work Phone: [facility] 12-28-2023 08:33-0400 Body height 154.94 cm DO Kristopher Herzog Work Phone: [facility] 12-28-2023 08:33-0400 Body weight 79.83 kg DO Kristopher Herzog Work Phone: [facility] 12-07-2023 10:06-0400 Body height 156.21 cm DO Kristopher Herzog Work Phone: [facility] 12-07-2023 10:06-0400 Body mass index (BMI) [Ratio] 32.7 kg/m2 DO Kristopher Herzog Work Phone: [facility] 12-07-2023 10:06-0400 Body weight 79.83 kg DO Kristopher Herzog Work Phone: [facility] 12-07-2023 10:06-0400 Diastolic blood pressure 74 mm[Hg] DO Kristopher Herzog Work Phone: [facility] 12-07-2023 10:06-0400 Heart rate 79 /min DO Kristopher Herzog Work Phone: [facility] 12-07-2023 10:06-0400 Systolic blood pressure 142 mm[Hg] DO Kristopher Chuy Work Phone: [facility] 12-15-2022 17:21-0400 Body temperature 98.1 [degF] DO Kristopher Herzog Work Phone: [facility] 12-15-2022 17:21-0400 Diastolic blood pressure 77 mm[Hg] DO Kristopher Chuy Work Phone: [facility] 12-15-2022 17:21-0400 Heart rate 83 /min DO Kristopher Chuy Work Phone: [facility] 12-15-2022 17:21-0400 Respiratory rate 16 /min DO Kristopher Chuy Work Phone: [facility] 12-15-2022 17:21-0400 SaO2% (BldA) [Mass fraction] 99 % DO Kristopher Chuy Work Phone: [facility] 12-15-2022 17:21-0400 Systolic blood pressure 158 mm[Hg] DO Kristopher Chuy Work Phone: [facility] 12-15-2022 06:00-0400 Body weight 85.3 kg DO Kristopher Chuy Work Phone: [facility] 12-13-2022 20:01-0400 Diastolic blood pressure 81 mm[Hg] DO Kristopher Chuy Work Phone: [facility] 12-13-2022 20:01-0400 Heart rate 75 /min DO Kristopher Chuy Work Phone: [facility] 12-13-2022 20:01-0400 Respiratory rate 18 /min DO Kristopher Chuy Work Phone: [facility] 12-13-2022 20:01-0400 SaO2% (BldA) [Mass fraction] 99 % DO Kristopher Chuy Work Phone: [facility] 12-13-2022 20:01-0400 Systolic blood pressure 167 mm[Hg] DO Kristopher Chuy Work Phone: [facility] 12-13-2022 13:48-0400 Body height 160.02 cm DO Kristopher Chuy Work Phone: [facility] 12-13-2022 13:48-0400 Body temperature 98.6 [degF] DO Kristopher Herzog Work Phone: [facility] [facility] 12-13-2022 13:48-0400 Body weight 88.3 kg DO Kristopher Herzog Work Phone: [facility] 09-23-2022 19:59-0500 Diastolic blood pressure 72 mm[Hg] DO Kristopher Herzog Work Phone: [facility] 09-23-2022 19:59-0500 Heart rate 77 /min DO Kristopher Herzog Work Phone: [facility] 09-23-2022 19:59-0500 Respiratory rate 18 /min DO Kristopher Herzog Work Phone: [facility] 09-23-2022 19:59-0500 SaO2% (BldA) [Mass fraction] 97 % DO Kristopher Herzog Work Phone: [facility] 09-23-2022 19:59-0500 Systolic blood pressure 168 mm[Hg] DO Kristopher Herzog Work Phone: [facility] 09-23-2022 18:17-0500 Body height 160.02 cm DO Kristopher Herzog Work Phone: [facility] 09-23-2022 18:17-0500 Body temperature 98.7 [degF] DO Kristopher Herzog Work Phone: [facility] 09-23-2022 18:17-0500 Body weight 85.7 kg DO Kristopher Herzog Work Phone: [facility] 07-16-2022 09:56-0500 Body temperature 98.8 [degF] DO Kristopher Chuy Work Phone: [facility] 07-16-2022 09:56-0500 Diastolic blood pressure 70 mm[Hg] DO Kristopher Chuy Work Phone: [facility] 07-16-2022 09:56-0500 Heart rate 79 /min DO Kristopher Herzog Work Phone: [facility] 07-16-2022 09:56-0500 Respiratory rate 17 /min DO Kristopher Herzog Work Phone: [facility] 07-16-2022 09:56-0500 SaO2% (BldA) [Mass fraction] 98 % DO Kristopher Herzog Work Phone: [facility] 07-16-2022 09:56-0500 Systolic blood pressure 150 mm[Hg] DO Kristophervince Herzog Work Phone: [facility] 07-16-2022 08:29-0500 Body height 160.02 cm DO Kristopher Herzog Work Phone: [facility] 07-16-2022 08:29-0500 Body weight 83 kg DO Kristopher Herzog Work Phone: [facility] 06-04-2022 09:13-0400 Body temperature 97.9 [degF] DO Kristopher Herzog Work Phone: [facility] 06-04-2022 09:13-0400 Diastolic blood pressure 64 mm[Hg] DO Kristopher Herzog Work Phone: [facility] 06-04-2022 09:13-0400 Heart rate 93 /min DO Kristopher Herzog Work Phone: [facility] 06-04-2022 09:13-0400 Respiratory rate 20 /min DO Kristopher Herzog Work Phone: [facility] 06-04-2022 09:13-0400 SaO2% (BldA) [Mass fraction] 97 % DO Kristopher Herzog Work Phone: [facility] 06-04-2022 09:13-0400 Systolic blood pressure 134 mm[Hg] DO Kristopher Chuy Work Phone: [facility] 05-29-2022 08:18-0400 Body temperature 98.1 [degF] DO Kristopher Herzog Work Phone: [facility] 05-29-2022 08:18-0400 Diastolic blood pressure 76 mm[Hg] DO Kristopher Herzog Work Phone: [facility] 05-29-2022 08:18-0400 Heart rate 77 /min DO Kristopher Herzog Work Phone: [facility] 05-29-2022 08:18-0400 Respiratory rate 20 /min DO Kristopher Herzog Work Phone: [facility] 05-29-2022 08:18-0400 SaO2% (BldA) [Mass fraction] 98 % DO Kristopher Herzog Work Phone: [facility] 05-29-2022 08:18-0400 Systolic blood pressure 146 mm[Hg] DO Kristopher Herzog Work Phone: [facility] 02-11-2022 08:39-0400 Body weight 0 kg DO Kristopher Herzog Work Phone: [facility] 01-28-2022 16:15-0400 Body height 157.48 cm Tang Mcclellan Other [facility] Other 01-28-2022 16:15-0400 Body mass index (BMI) [Ratio] 31.64 kg/m2 Tang Mcclellan Other [facility] Other 01-28-2022 16:15-0400 Body weight 78.47 kg Tang Mcclellan Other [facility] Other Encounters Encounter Date Encounter Type Care Provider Facility Start: 05-22-2025 End: 05-22-2025 Cindy Branham DPM Work Phone: [facility] Start: 05-22-2025 End: 05-22-2025 Bamboo flowsheet Marlon H Yonas DPM Work Phone: [facility] Start: 05-22-2025 End: 05-22-2025 ambulatory MARLON Olman YONAS Not Available Start: 05-22-2025 End: 05-22-2025 Postop follow up visit related to original px Marlon Branham DPM Work Phone: [facility] Comment on above: Onychomycosis (Prima ry Dx); Pain in both feet; Type II diabetes mellitus with neurological manifestations (HCC); Corns and callosities; Hallux malleus, right; Surgery follow-up examination Start: 04-20-2025 End: 04-20-2025 Bamboo flowsheet Marlon H Yonas DPM Work Phone: [facility] Start: 04-20-2025 End: 04-20-2025 Bamboo flowsheet Marlon Thurman Branham DPM Work Phone: [facility] Start: 04-20-2025 End: 04-20-2025 Postop follow up visit related to original px Marlon Branham DPM Work Phone: [facility] Comment on above: Posterior tibial ten donitis, right (Primary Dx); Surgery follow-up examination; Hallux malleus, right; Ulcer of great toe, right, limited to breakdown of skin (HCC) Start: 04-20-2025 End: 04-20-2025 ambulatory MARLON BRANHAM Not Available Start: 04-05-2025 End: 04-05-2025 Bamboo flowsheet Marlon Olman Yonas DPM Work Phone: [facility] Start: 04-05-2025 End: 04-05-2025 Bamboo flowsheet Marlon H Yonas DPM Work Phone: [facility] Start: 04-05-2025 End: 04-05-2025 Postop follow up visit related to original px Marlon Olman Yonas DPM Work Phone: [facility] Comment on above: Surgery follow-up ex amination (Primary Dx); Hallux malleus, right; Ulcer of great toe, right, limited to breakdown of skin (HCC); Right foot pain Start: 04-05-2025 End: 04-05-2025 ambulatory MARLON BRANHAM Not Available Start: 03-22-2025 End: 03-22-2025 Bamboo flowsheet Marlon Branham DPM Work Phone: [facility] Start: 03-22-2025 End: 03-22-2025 Bamboo flowsheet Marlon Branham DPM Work Phone: [facility] Start: 03-22-2025 End: 03-22-2025 Postop follow up visit related to original px Marlon Branham DPM Work Phone: [facility] Comment on above: Surgery follow-up ex amination (Primary Dx); Hallux malleus, right; Right foot pain; Ulcer of great toe, right, limited to breakdown of skin (HCC) Start: 03-22-2025 End: 03-22-2025 ambulatory MARLON BRANHAM Not Available Start: 03-17-2025 End: 03-17-2025 ambulatory Kristopher Herzog DO Work Phone: [facility] Work Phone: Start: 03-17-2025 End: 03-17-2025 Patient encounter procedure Kiersten Semora [facility] Work Phone: Start: 03-14-2025 End: 03-14-2025 Bamboo flowsheet Marlon Branham DPM Work Phone: [facility] Start: 03-14-2025 End: 03-14-2025 Bamboo flowsheet Marlon Branham DPM Work Phone: [facility] Start: 03-14-2025 End: 03-14-2025 ambulatory MARLON BRANHAM Not Available Start: 03-14-2025 End: 03-14-2025 Postop follow up visit related to original px Marlon Branham DPM Work Phone: [facility] Comment on above: Surgery follow-up ex amination (Primary Dx); Hallux malleus, right; Right foot pain Start: 03-13-2025 End: 03-13-2025 ambulatory Kristopher Herzog DO Work Phone: [facility] Work Phone: Start: 03-13-2025 End: 03-13-[address] [facility] [address] [facility] Work Phone: Start: 03-09-2025 End: 03-09-2025 Bamboo flowsheet Caro HEWITT Work Phone: [facility] Start: 03-09-2025 End: 03-09-2025 Bamboo flowsheet Caro Hugo PA Work Phone: [facility] Start: 03-09-2025 End: 03-09-2025 ambulatory Kristopher Herzog DO Work Phone: [facility] Work Phone: Start: 03-09-2025 End: 03-09-2025 Patient encounter procedure Tita Floresnicol [facility] Work Phone: Start: 03-09-2025 End: 03-09-2025 Office outpatient new 30 minutes Caro Hugo PA Work Phone: [facility] Comment on above: Acute pain of left k nee (Primary Dx); Primary osteoarthritis of left knee Start: 03-09-2025 End: 03-09-2025 ambulatory CARO HUGO Not Available Start: 03-07-2025 End: 03-07-2025 Bamboo flowsheet Marlon Branham DPM Work Phone: [facility] Start: 03-07-2025 End: 03-07-2025 Bamboo flowsheet Marlon Branham DPM Work Phone: [facility] Start: 03-07-2025 End: 03-07-2025 Postop follow up visit related to original px Marlon Branham DPM Work Phone: [facility] Comment on above: Surgery follow-up ex amination (Primary Dx); Hallux malleus, right; Right foot pain; Ulcer of great toe, right, limited to breakdown of skin (HCC) Start: 03-07-2025 End: 03-07-2025 ambulatory MARLON BRANHAM Not Available Start: 02-22-2025 End: 02-22-2025 Telephone encounter Venita Marques NP Work Phone: [facility] Start: 02-22-2025 End: 02-22-2025 ambulatory Kristopher Herzog DO Work Phone: [facility] Work Phone: Start: 02-22-2025 End: 02-22-2025 Patient encounter procedure Tita Roberts [facility] Work Phone: Start: 02-16-2025 End: 02-16-2025 Bamboo flowsheet Marlon Branham DPM Work Phone: [facility] Start: 02-16-2025 End: 02-16-2025 Bamboo flowsheet Marlon Branham DPM Work Phone: [facility] Start: 02-16-2025 End: 02-16-2025 ambulatory MARLON BRANHAM Not Available Start: 02-16-2025 End: 02-16-2025 Office outpatient visit 15 minutes Marlon Branham DPM Work Phone: [facility] Comment on above: Hallux malleus, righ t (Primary Dx); Right foot pain Start: 02-13-2025 End: 02-13-2025 Office outpatient visit 15 minutes Venita Marques NP Work Phone: [facility] Comment on above: Acute pain of left k nee (Primary Dx); Primary osteoarthritis of left knee; Hallux malleus of right foot; Callus; Preoperative clearance Start: 02-13-2025 End: 02-13-2025 Preoperative state Venita Marques KELLER MACHINE OPERATOR Work Phone: [facility] Start: 02-13-2025 End: 02-13-2025 ambulatory VENITA MARQUES Not Available Start: 02-09-2025 End: 02-09-2025 Patient encounter procedure Kiersten Qureshi [facility] Work Phone: Start: 02-01-2025 End: 02-01-2025 Bamboo flowsheet Marlon Branham DPM Work Phone: [facility] Start: 02-01-2025 End: 02-01-2025 Bamboo flowsheet Marlon Branham DPM Work Phone: [facility] Start: 02-01-2025 End: 02-01-2025 ambulatory Kristopher Herzog DO Work Phone: [facility] Work Phone: Start: 02-01-2025 End: 02-01-2025 Patient encounter procedure Kristopher Herzog DO Work Phone: [facility] Work Phone: Start: 02-01-2025 End: 02-01-2025 ambulatory MARLON BRANHAM Not Available Start: 02-01-2025 End: 02-01-2025 Office outpatient visit 15 minutes Marlon Branham DPM Work Phone: [facility] Comment on above: Onychomycosis (Prima [...] flowsheet Kristopher A Chuy DO Work Phone: [facility] Start: 01-09-2025 End: 01-09-2025 Office outpatient visit 40 minutes Kristopher Rebekah Chuy DO Work Phone: [facility] Comment on above: Medicare annual well ness visit, subsequent (Primary Dx); Advance care planning; Type 2 diabetes mellitus with stage 3a chronic kidney disease, with long-term current use of insulin (HCC) (CMS/HCC); Diabetic peripheral neuropathy associated with type 2 diabetes mellitus (CMS/HCC); correction current use of insulin (CMS/HCC); Mixed hyperlipidemia (CMS/HCC); Steatosis of liver; Primary hypertension (CMS/HCC); Chronic deep vein thrombosis (DVT) of femoral vein of left lower extremity (CMS/HCC); Spinal stenosis of lumbosacral region; correction current use of 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 Start: 01-09-2025 End: 01-09-2025 Patient encounter procedure Kristopher Rebekah Chuy DO Work Phone: [facility] Work Phone: Start: 01-09-2025 End: 01-09-2025 ambulatory KRISTOPHER HERZOG Not Available Start: 01-05-2025 End: 01-05-2025 Clinisync Result Encounter Kristopher Rebekah Chuy DO Work Phone: [facility] External Department Unsolicited Start: 01-05-2025 End: 01-05-2025 Clinisync Result Encounter Kristopher Herzog DO Work Phone: [facility] Department Unsolicited Start: 01-04-2025 End: 01-04-2025 ambulatory Kristophervince Herzog DO Work Phone: [facility] Work Phone: Start: 01-04-2025 End: 01-04-2025 Patient encounter procedure Kristopher Herzog DO Work Phone: [facility] Phys[facility] Work Phone: Start: 12-16-2024 End: 12-16-2024 ambulatory RADHA H ITMARIZAHERMILO Not Available Start: 12-16-2024 End: 12-16-2024 Office outpatient visit 25 minutes Radha Olman Itmaikolel DO Work Phone: [facility] Comment on above: Axillary lymphadenop athy (Primary Dx); H/O diagnostic mammography Start: 12-14-2024 End: 12-14-2024 Bamboo flowsheet Kristopher Herzog DO Work Phone: [facility] Start: 12-14-2024 End: 12-14-2024 Bamboo flowsheet Kristopher Belloman DO Work Phone: [facility] Start: 12-14-2024 End: 12-14-2024 Office outpatient visit 40 minutes Kristopher Herzog DO Work Phone: 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; Steatosis of liver; Primary hypertension (CMS/HCC); Venous insufficiency; Primary osteoarthritis of left knee Start: 12-14-2024 End: 12-14-2024 ambulatory KRISTOPHER HERZOG Not Available Start: 12-07-2024 End: 12-07-2024 ambulatory Radha Itzkowitz Facility:[facility] Start: 12-07-2024 End: 12-07-2024 Patient encounter procedure Kristopher Herzog DO Work Phone: [facility] Comment on above: Leg numbness (Primar y Dx) Start: 11-30-2024 End: 11-30-2024 ambulatory [facility] Work Phone: Start: 11-30-2024 End: 11-30-2024 Patient encounter procedure [facility] Work Phone: Start: 11-23-2024 End: 11-23-2024 ambulatory VENITA L DIDION Not Available Start: 11-15-2024 End: 11-15-2024 ambulatory VENITA L DIDION Not Available Start: 11-02-2024 End: 11-02-2024 ambulatory [facility] Work Phone: Start: 11-02-2024 End: 11-02-2024 Patient encounter procedure [facility] Work Phone: Start: 10-31-2024 End: 10-31-2024 ambulatory MARLON BRANHAM Not Available Start: 10-27-2024 End: 10-27-2024 ambulatory VENITA L DIDION Not Available Start: 10-25-2024 End: 10-25-2024 ambulatory VENITA L DIDION Not Available Start: 10-25-2024 End: 10-25-2024 Office outpatient visit 25 minutes Venita L Didion KELLER MACHINE OPERATOR Work Phone: [facility] Comment on above: Nonintractable heada shelby, unspecified chronicity pattern, unspecified headache type (Primary Dx); Neck pain; Paresthesia of left arm; Numbness of fingers Start: 10-23-2024 Non-patient / Non-visit [facility] Work Phone: Start: 10-07-2024 End: 10-07-2024 ambulatory [facility] Work Phone: Start: 10-07-2024 End: 10-07-2024 Patient encounter procedure [facility] Phys[facility] Work Phone: Start: 10-05-2024 End: 10-05-2024 ambulatory [facility] Work Phone: Start: 10-05-2024 End: 10-05-2024 Patient encounter procedure [facility] Work Phone: Start: 10-03-2024 End: 10-03-2024 Office outpatient visit 25 minutes Kristopher Herzog DO Work Phone: [facility] Comment on above: Primary osteoarthrit is of right knee (Primary Dx); Hypercoagulable state (CMS/HCC); Diabetic peripheral neuropathy associated with type 2 diabetes mellitus (CMS/HCC); Primary hypertension (CMS/HCC); Ulcerative colitis without complications, unspecified location (CMS/HCC); correction current use of insulin (CMS/HCC); correction current use of 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; Sacral ulcer, limited to breakdown of skin (CMS/HCC) Start: 10-03-2024 End: 10-03-2024 ambulatory KRISTOPHER HERZOG Not Available Start: 09-09-2024 End: 09-09-2024 ambulatory [facility] Work Phone: Start: 09-09-2024 End: 09-09-2024 Patient encounter procedure [facility] Work Phone: Start: 08-03-2024 End: 08-03-2024 Patient encounter procedure [facility] Work Phone: Start: 08-01-2024 End: 08-01-2024 Bamboo flowsheet Marlon Branham DPM Work Phone: [facility] Start: 08-01-2024 End: 08-01-2024 Bamboo flowsheet Marlon Branham DPM Work Phone: [facility] Start: 08-01-2024 End: 08-01-2024 Office outpatient visit 10 minutes Marlon Branham DPM Work Phone: 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); Onychomycosis; Corns and callosities; Hallux malleus, left; Pain in both feet Start: 08-01-2024 End: 08-01-2024 ambulatory MARLON Thurman YONAS Not Available Start: 07-04-2024 End: 07-04-2024 ambulatory [facility] Work Phone: Start: 07-04-2024 End: 07-04-2024 Patient encounter procedure [facility] Work Phone: Start: 06-29-2024 End: 06-29-2024 ambulatory [facility] Work Phone: Start: 06-29-2024 End: 06-29-2024 Patient encounter procedure [facility] Work Phone: Start: 06-22-2024 End: 06-22-2024 Office outpatient visit 25 minutes Adam Rodriguez KELLER MACHINE OPERATOR Work Phone: [facility] Comment on above: Primary hypertension (CMS/HCC) (Primary Dx); Mixed hyperlipidemia (CMS/HCC); Obstructive sleep apnea syndrome; Peripheral venous insufficiency; Chronic deep vein thrombosis (DVT) of femoral vein of left lower extremity (CMS/HCC); 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 machines and devices; Diabetic peripheral neuropathy associated with type 2 diabetes mellitus (CMS/HCC); Gastroesophageal reflux disease without esophagitis; Hypercoagulable state (CMS/HCC); correction current use of 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; correction current use of insulin (CMS/HCC); OAB (overactive bladder); Class 1 obesity; Spinal stenosis of lumbosacral region; Ulcerative colitis without complications, unspecified location (CMS/HCC); Need for immunization against influenza; Atrophic vaginitis; Bilateral leg edema Start: 06-22-2024 End: 06-22-2024 ambulatory ADAM RODRIGUEZ Not Available Start: 06-17-2024 End: 06-18-2024 Orders Only Adam Rodriguez KELLER MACHINE OPERATOR Work Phone: [facility] External Department Unsolicited Start: 06-06-2024 End: 06-06-2024 ambulatory [facility] Work Phone: Start: 06-06-2024 End: 06-06-2024 Patient encounter procedure [facility] Work Phone: Start: 05-09-2024 End: 05-09-2024 ambulatory DO Kristopher Chuy Work Phone: [facility] Work Phone: Start: 05-09-2024 End: 05-09-2024 Patient encounter procedure DO Kristophervince Herzog Work Phone: [facility] Work Phone: Start: 04-29-2024 End: [...] procedure Marlon Branham DPM Work Phone: 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); Onychomycosis; Corns and callosities; Pain in both feet Start: 04-14-2024 End: 04-14-2024 ambulatory DO Kristopher Herzog Work Phone: [facility] Work Phone: Start: 04-14-2024 End: 04-14-2024 Patient encounter procedure DO Kristopher Chuy Work Phone: [facility] Work Phone: Start: 03-14-2024 End: 03-14-2024 ambulatory DO Kristopher Belloman Work Phone: [facility] Work Phone: Start: 03-14-2024 End: 03-14-2024 Patient encounter procedure DO Kristopher Chuy Work Phone: [facility] Physician [facility] Work Phone: Start: 02-17-2024 End: 02-17-2024 ambulatory DO Kristopher Chuy Work Phone: [facility] Work Phone: Start: 02-17-2024 End: 02-17-2024 Patient encounter procedure DO Kristopher Herzog Work Phone: [facility] Work Phone: Start: 02-09-2024 End: 02-09-2024 Emergency department patient visit DO Kristopher Herzog Work Phone: [facility] Work Phone: Start: 01-20-2024 End: 01-20-2024 ambulatory DO Kristophervince Herzog Work Phone: [facility] Work Phone: Start: 01-20-2024 End: 01-20-2024 Patient encounter procedure DO Kristopher Chuy Work Phone: [facility] Physician [facility] Work Phone: Start: 01-05-2024 End: 01-05-2024 Patient encounter procedure DO Kristopher Chuy Work Phone: [facility] Physician [facility] Work Phone: Start: 12-28-2023 Non-patient / Non-visit DO Preet Herzog Work Phone: [facility] Physician [facility] G[facility] Work Phone: Start: 12-28-2023 End: 12-28-2023 Admission to same day surgery center DO Kristopher Herzog Work Phone: [facility] Work Phone: Start: 12-28-2023 End: 12-28-2023 ambulatory DO Kristophervince Herzog Work Phone: [facility] Work Phone: Start: 12-14-2023 End: 12-14-2023 ambulatory DO Kristopher Belloman Work Phone: [facility] Work Phone: Start: 12-14-2023 End: 12-14-2023 Patient encounter procedure DO Kristopher Herzog Work Phone: [facility] Work Phone: Start: 12-07-2023 End: 12-07-2023 ambulatory DO Kristopher Herzog Work Phone: [facility] Work Phone: Start: 12-07-2023 End: 12-07-2023 Patient encounter procedure DO Kristophervince Herzog Work Phone: [facility] Work Phone: Start: 12-07-2023 End: 12-07-2023 ambulatory DO Kristophervince Herzog Work Phone: [facility] Work Phone: Start: 12-07-2023 End: 12-07-2023 Patient encounter procedure DO Kristopher Herzog Work Phone: [facility] Gastroenterology Work Phone: Start: 11-09-2023 End: 11-09-2023 ambulatory DO Kristopher Herzog Work Phone: [facility] Work Phone: Start: 11-09-2023 End: 11-09-2023 Patient encounter procedure DO Kristopher Herzog Work Phone: [facility] Work Phone: Start: 10-05-2023 ([facility] R A/c) [facility] Re peat A/C Lauren Vance [facility] Start: 10-05-2023 End: 10-05-2023 ambulatory DO Kristopher Herzog Work Phone: [facility] Other Start: 10-05-2023 End: 10-05-2023 Discharged Recurring DO Kristopher Herzog [facility] Work Phone: Start: 09-29-2023 End: 09-29-2023 ambulatory Lauren Vance Other [facility] Other Start: 09-29-2023 Telephone encounter Lauren Vance [facility] Start: 09-24-2023 Telephone encounter Kimberly Berger LPN [facility] Start: 09-07-2023 ([facility] R A/c) [facility] [facility] Re peat A/C [facility] Start: 09-07-2023 End: 09-07-2023 ambulatory Rivers Sanner Other [employer] Other Start: 08-11-2023 ([facility] R A/c) [facility] Start: 08-11-2023 End: 08-11-2023 ambulatory Rivers Sanner Other [employer] Other Start: 07-14-2023 ([facility] R A/c) [facility] Re peat A/C [facility] Start: 07-14-2023 End: 07-14-2023 ambulatory Rivers Sanner Other [employer] Other Start: 06-15-2023 ([facility] R A/c) [facility] Re peat A/C [facility] Start: 06-15-2023 End: 06-15-2023 ambulatory Tita Roberts Other [employer] Other Start: 06-03-2023 End: 06-03-2023 ambulatory DO Kristopher Herzog Work Phone: [facility] Work Phone: Start: 06-03-2023 End: 06-03-2023 Patient encounter procedure DO Kristopher Herzog Work Phone: [facility]-Ultrasound Cntr for Breast Car Start: 05-25-2023 Registered Recurring DO Manuela Belloman Work Phone: [facility]-Center for Coordinated Care Work Phone: Start: 04-30-2023 ([facility] R A/c) [facility] Re peat A/C Lauren Fitt [facility] Start: 04-30-2023 End: 04-30-2023 ambulatory Lauren Fitt Other [employer] Other Start: 04-08-2023 ([facility] R A/c) [facility] Re peat A/C Kiersten Semora [facility] Start: 04-08-2023 End: 04-08-2023 ambulatory Kiersten Titus Other [employer] Other Start: 03-23-2023 ([facility] R A/c) [facility] Re peat A/C Kiersten Titus [facility] Start: 03-23-2023 End: 03-23-2023 ambulatory Kiersten Semora Other [employer] Other Start: 03-11-2023 ([facility] R A/c) [facility] Re peat A/C Kiersten Titus [facility] Start: 03-11-2023 End: 03-11-2023 ambulatory Kiersten Semora Other [employer] [facility] [employer] Other Start: 02-23-2023 ([facility] R A/c) [facility] Re peat A/C Kiersten Titus [facility] Start: 02-23-2023 End: 02-23-2023 ambulatory Kiersten Titus Other [employer] [facility] [employer] Other Start: 12-17-2022 End: 12-17-2022 ambulatory DO Kristopher Herzog Work Phone: [facility] Work Phone: Start: 12-17-2022 End: 12-17-2022 Departed Referred DO Kristopher Herzog Work Phone: [facility]-Lab [facility] Work Phone: Start: 12-15-2022 ambulatory Facility:[id number] Start: 12-13-2022 End: 12-15-2022 Evaluation and management of inpatient DO Kristopher Herzog Work Phone: [facility] [place] [facility] Work Phone: Start: 12-13-2022 observation encounter DO Wilfrido Herzog Work Phone: [facility] Work Phone: Start: 12-10-2022 ([facility] R A/c) [facility] Re peat A/C Kiersten Titus [facility] Start: 12-10-2022 End: 12-10-2022 ambulatory Kierstenfredi Qureshi Other [employer] Other Start: 12-10-2022 Registered Recurring DO Manuela Herzog Work Phone: [facility] Work Phone: Start: 12-01-2022 End: 12-01-2022 ambulatory DO Kristopher Herzog Work Phone: [facility] Work Phone: Start: 12-01-2022 End: 12-01-2022 Patient encounter procedure DO Kristopher Herzog Work Phone: [facility]-Center for Breast Care Work Phone: Start: 11-12-2022 ([facility] R A/c) [facility] Re peat A/C Kiersten Titus [facility] Start: 11-12-2022 End: 11-12-2022 ambulatory Kiersten Llamasber Other [employer] Other Start: 11-12-2022 Registered Recurring DO Manuela Herzog Work Phone: [facility] for [facility] Care Work Phone: Start: 10-15-2022 ([facility] R A/c) [facility] Re peat A/C Kiersten Semora [facility] Start: 10-15-2022 End: 10-15-2022 ambulatory Kiersten Titus Other [employer] Other Start: 09-29-2022 End: 09-29-2022 ambulatory Lauren Paredest Other [employer] Other Start: 09-29-2022 Telephone encounter Lauren Vance [facility] Start: 09-23-2022 End: 09-23-2022 Emergency department patient visit DO Kristopher Herzog Work Phone: [facility]-Emergency Room Work Phone: Start: 09-17-2022 ([facility] R A/c) [facility] Re peat A/C Kiersten Semora [facility] Start: 09-17-2022 End: 09-17-2022 ambulatory Kiersten Titus Other [employer] Other Start: 09-17-2022 Registered Recurring DO Manuela Herzog Work Phone: [facility] Work Phone: Start: 09-01-2022 End: 09-01-2022 ambulatory Lauren Paredest Other [employer] Other Start: 09-01-2022 Telephone encounter Lauren Vance [facility] Start: 08-20-2022 ([facility] R A/c) [facility] Re peat A/C Kiersten Titus [facility] Start: 08-20-2022 End: 08-20-2022 ambulatory Kiersten Titus Other [employer] Other Start: 07-24-2022 ([facility] R A/c) [facility] Re peat A/C Olu Anju [facility] Start: 07-24-2022 End: 07-24-2022 ambulatory Olu Rene Other [employer] Other Start: 07-16-2022 End: 07-16-2022 Emergency department patient visit DO Kristopher Herzog Work Phone: [facility]-Emergency Room Start: 06-26-2022 ([facility] R A/c) [facility] Re peat A/C Lauren Reggiet [facility] Start: 06-26-2022 End: 06-26-2022 ambulatory Lauren Reggiet Other [employer] Other Start: 06-26-2022 Registered Recurring DO Manuela Herzog Work Phone: [facility] for [facility] Start: 06-23-2022 End: 06-23-2022 ambulatory DO Kristopher Herzog Work Phone: [facility] Work Phone: Start: 06-23-2022 End: 06-23-2022 Patient encounter procedure DO Kristopher Herzog Work Phone: [facility]-Ultrasound [place] Start: 06-09-2022 End: 06-09-2022 Patient encounter procedure DO Kristopher Herzog Work Phone: [facility]-Ultrasound Cntr for Breast Car Start: 06-05-2022 ([facility] R A/c) [facility] Re peat A/C Lauren Fitt [facility] Start: 06-05-2022 End: 06-05-2022 ambulatory Tang Mcclellan Other [employer] Other Start: 06-05-2022 Telephone encounter Tang Santana [facility] Start: 06-05-2022 Registered Recurring DO Manuela Herzog Work Phone: [facility]-[place] for [facility] Care Start: 06-04-2022 End: 06-04-2022 Discharged Recurring DO Kristopher Herzog Work Phone: [facility]-Infusion Therapy - O/P Start: 05-29-2022 End: 05-29-2022 ambulatory DO Kristopher Herzog Work Phone: [facility] Work Phone: Start: 05-29-2022 End: 05-29-2022 Patient encounter procedure DO Kristopher Herzog Work Phone: [facility]-Lab [place] Start: 05-29-2022 Registered Recurring DO Manuela Herzog Work Phone: [facility]-Infusion Therapy - O/P Start: 05-22-2022 Registered Recurring DO Manuela Herzog Work Phone: [facility] for [facility] Care Start: 05-22-2022 ([facility] R A/c) [facility] Re peat A/C Lauren Fitt [facility] Start: 05-22-2022 End: 05-22-2022 ambulatory Lauren Fitt Other [employer] Other Start: 05-20-2022 End: 05-20-2022 Patient encounter procedure DO Kristopher Herzog Work Phone: [facility]-Lab [place] Start: 05-06-2022 ([facility] R A/c) [facility] Re peat A/C Lauren Fitt [facility] Start: 05-06-2022 End: 05-06-2022 ambulatory Lauren Fitt Other [employer] Other Start: 04-08-2022 ([facility] R A/c) [facility] Re peat A/C Lauren Fitt [facility] Start: 04-08-2022 End: 04-08-2022 ambulatory Lauren Fitt Other [employer] Other Start: 03-13-2022 ([facility] R A/c) [facility] Re peat A/C Lauren Fitt [facility] Start: 03-13-2022 End: 03-13-2022 ambulatory Lauren Fitt Other [employer] Other Start: 02-28-2022 End: 02-28-2022 Patient encounter procedure DO Kristopher Herzog Work Phone: [facility]-Digestive Health Start: 02-27-2022 ([facility] R A/c) [facility] Re peat A/C Lauren Fitt [facility] Start: 02-27-2022 End: 02-27-2022 ambulatory Lauren Fitt Other [employer] Other Start: 02-26-2022 End: 02-26-2022 Patient encounter procedure DO Kristopher Polo Phone: [facility]-Pre-Surgical Testing Start: 02-17-2022 ([facility] R A/c) [facility] Re peat A/C Lauren Fitt [facility] Start: 02-17-2022 End: 02-17-2022 ambulatory Lauren Fitt Other [employer] Other Start: 02-11-2022 End: 02-11-2022 ambulatory Antonio Thmopson Other [employer] Other Start: 02-11-2022 Telephone encounter Antonio Thompson [facility] Start: 01-28-2022 End: 01-28-2022 ambulatory Tang Mcclellan Other [employer] Other Start: 01-28-2022 Office outpatient vi sit 15 minutes Tang Mcclellan [facility] Start: 01-21-2022 ([facility] R A/c) [facility] Re peat A/C Lauren Fitt [facility] Start: 01-21-2022 End: 01-21-2022 ambulatory Lauren Fitt Other [employer] Other Start: 01-09-2022 End: 01-09-2022 ambulatory Tang Henrietta Other [employer] Other Start: 01-09-2022 Telephone encounter Tang Santana [facility] Start: 01-06-2022 ([facility] R A/c) [facility] Re peat A/C Lauren Fitt [facility] Start: 01-06-2022 End: 01-06-2022 ambulatory Lauren Fitt Other [employer] Other Start: 12-23-2021 ([facility] R A/c) [facility] Re peat A/C Lauren Fitt [facility] Start: 12-23-2021 End: 12-23-2021 ambulatory Lauren Fitt Other [employer] Other Start: 12-11-2021 ([facility] R A/c) [facility] Re peat A/C Lauren Fitt [facility] Start: 12-11-2021 End: 12-11-2021 ambulatory Lauren Fitt Other [employer] Other Start: 11-28-2021 End: 11-28-2021 ambulatory Tang Mcclellan Other [employer] Other Start: 11-28-2021 Telephone encounter Tang Santana [facility] Start: 11-27-2021 ([facility] R A/c) [facility] Re peat A/C Lauren Fitt [facility] Start: 11-27-2021 End: 11-27-2021 ambulatory Lauren Fitt Other [employer] Other Start: 11-25-2021 End: 11-25-2021 ambulatory Lauren Fitt Other [employer] Other Start: 11-25-2021 Telephone encounter Lauren Fitt [facility] Start: 11-14-2021 End: 11-14-2021 ambulatory Lauren Fitt Other [employer] Other Start: 11-14-2021 Telephone encounter Lauren Fitt [facility] Start: 11-12-2021 ([facility] R A/c) [facility] Re peat A/C Lauren Fitt [facility] Start: 11-12-2021 End: 11-12-2021 ambulatory Lauren Fitt Other [employer] Other Start: 10-31-2021 ([facility] R A/c) [facility] Re peat A/C Lauren Fitt [facility] Start: 10-31-2021 End: 10-31-2021 ambulatory Lauren Fitt Other [employer] Other Start: 10-14-2021 ([facility] R A/c) [facility] Re peat A/C Lauren Fitt [facility] Start: 10-14-2021 End: 10-14-2021 ambulatory Lauren Fitt Other [employer] Other Start: 10-08-2021 End: 10-08-2021 ambulatory Lauren Fitt Other [employer] Other Start: 10-08-2021 Telephone encounter Lauren Fitt [facility] Start: 09-30-2021 ([facility] R A/c) [facility] Re peat A/C Lauren Fitt [facility] Start: 09-30-2021 End: 09-30-2021 ambulatory Lauren Fitt Other [employer] Other Start: 09-12-2021 ([facility] R A/c) [facility] Re peat A/C Lauren Fitt [facility] Start: 09-12-2021 End: 09-12-2021 ambulatory Lauren Fitt Other [employer] Other Start: 08-29-2021 ([facility] R A/c) [facility] Re peat A/C Lauren Fitt [facility] Start: 08-29-2021 End: 08-29-2021 ambulatory Lauren Fitt Other [employer] Other Start: 08-15-2021 ([facility] R A/c) [facility] Lauren Fitt [facility] Start: 08-15-2021 End: 08-15-2021 ambulatory Lauren Fitt Other [employer] Other Start: 08-01-2021 ([facility] R A/c) [facility] Re peat A/C Lauren Fitt [facility] Start: 08-01-2021 End: 08-01-2021 ambulatory Lauren Fitt Other [employer] Other Start: 07-15-2021 ([facility] R A/c) [facility] Re peat A/C Lauren Fitt [facility] Start: 07-15-2021 End: 07-15-2021 ambulatory Lauren Fitt Other [employer] Other Start: 07-03-2021 ([facility] R A/c) [facility] Re peat A/C Lauren Fitt [facility] Start: 07-03-2021 End: 07-03-2021 ambulatory Lauren Fitt Other [employer] Other Start: 07-03-2021 Telephone encounter Antonio Peña [facility] Start: 06-19-2021 ([facility] R A/c) [facility] Re peat A/C Lauren Fitt [facility] Start: 05-28-2021 ([facility] R A/c) [facility] Re peat A/C Lauren Fitt [facility] Start: 05-21-2021 Telephone encounter Lauren Reggiet [facility] Start: 05-15-2021 ([facility] R A/c) [facility] Re peat A/C Lauren Fitt [facility] Start: 05-15-2021 Telephone encounter Lauren Fitt [facility] Procedures Date Procedure Procedure Detail Performing Clinician Start: 03-07-2025 Radex foot complete minimum 3 views Marlon Branham DPM Work Phone: Start: 02-16-2025 Radex foot complete minimum 3 views Marlon Branham DPM Work Phone: Start: 02-13-2025 Radiologic examinati on knee 3 views Venita Marques KELLER MACHINE OPERATOR Work Phone: Start: 01-11-2025 ALL CBC WITH AUTO DIFF Kristopher Herzog DO Work Phone: Start: 01-05-2025 ALL BASIC METABOLIC PANEL Kristopher Herzog DO Work Phone: Start: 12-07-2024 End: 12-07-2024 Mammography Kristopher Herzog DO Work Phone: Start: 06-17-2024 Comprehensive metabo lic panel Adam Ephraim Rodriguez KELLER MACHINE OPERATOR Work Phone: Start: 06-17-2024 Lipid panel Adam Ephraim Rodriguez KELLER MACHINE OPERATOR Work Phone: Start: 06-17-2024 SPECIMEN STATUS REPORT Adam Ye Sarah KELLER MACHINE OPERATOR Work Phone: Start: 04-29-2024 Mammography Radha It [...] X-ray of right femur DO Kristopher Herzog [facility] Phone: Start: 06-23-2022 Duplex scan of lower limb veins DO Kristopher Herzog Work Phone: Start: 06-09-2022 Ultrasonography of l eft breast DO Kristopher Herzog [facility] Phone: Start: 02-28-2022 Esophageal manometry DO Kristopher Herzog [facility] Phone: Start: 07-05-2016 Colonoscopy Kimberly Ramirez blake LPN Plan of Treatment Date Care Activity Detail Author Start: 12-27-2033 Screening for malign ant neoplasm of colon [facility] [employer] Start: 07-05-2026 Screening for malign ant neoplasm of colon [facility] Start: 01-09-2026 Medicare Annual Well ness (AWV) Medicare Annual Wellness (AWV) [facility] Start: 12-21-2025 End: 12-21-2025 Patient encounter procedure [facility] Start: 12-07-2025 Screening for malign ant neoplasm of breast Mammogram [facility] Start: 07-26-2025 End: 07-26-2025 Patient encounter procedure 07/26/2025 8:00 AM EST Procedure Visit [facility] [address] [place] [address] Marlon Branham DPM [address] [place] [address] [facility] Start: 06-17-2025 Urine screening for protein Diabetes: Urine Protein Screening [facility] Start: 06-07-2025 End: 06-07-2025 Patient encounter procedure [facility] Start: 06-02-2025 Glaucoma screening Diabetes: R etinopathy Screening [facility] Start: 05-10-2025 End: 05-10-2025 Patient encounter procedure [facility] Start: 04-29-2025 Screening for malign ant neoplasm of breast Mammogram [facility] Start: 04-24-2025 Influenza vaccination Influenza Vacc ine (#1) [facility] Start: 04-20-2025 End: 04-20-2025 Patient encounter procedure [facility] [place] [facility] Comment on above: Arrived Start: 04-19-2025 End: 04-19-2025 Patient encounter procedure [facility] Start: 04-11-2025 Hemoglobin A1c measurement Diabetes: Hemoglobin A1C [facility] Start: 04-05-2025 End: 04-05-2025 Patient encounter procedure [facility] [place] [facility] Comment on above: Arrived Start: 03-22-2025 End: 03-22-2025 Patient encounter procedure [facility] Comment on above: Arrived Start: 03-20-2025 End: 03-20-2025 Patient encounter procedure 03/20/2025 4:00 PM EDT Office Visit [facility] [address] [place] [address] Brandy Salmeron DO [address] [place] [id number] [facility] Start: 03-14-2025 End: 03-14-2025 Patient encounter procedure 03/14/2025 9:00 AM EDT Office Visit [facility] [address] [place] [id number] Branham, Marlon H, DPM [address] [place] [address] [facility] Start: 03-09-2025 End: 03-09-2025 Patient encounter procedure [facility] Comment on above: Acute pain of left k nee (Primary Dx); Primary osteoarthritis of left knee Start: 03-07-2025 End: 03-07-2025 Patient encounter procedure [facility] Comment on above: Arrived Start: 03-04-2025 Urine screening for protein Diabetes: Urine Protein Screening [facility] Start: 02-01-2025 End: 02-01-2025 Patient encounter procedure 02/01/2025 8:30 AM EDT Procedure Visit [facility] [address] [place] [address] Marlon Branham Olman, DPM [address] [place] [address] [facility] Start: 01-09-2025 End: 01-09-2025 Patient encounter procedure [facility] Comment on above: Arrived Start: 12-27-2024 Hemoglobin A1c measurement Diabetes: Hemoglobin A1C [facility] Start: 12-16-2024 End: 02-15-2026 MG Breast - bilateral Diagnostic Bilateral diagnostic mammogram Imaging Routine Axillary lymphadenopathy H/O diagnostic mammography Expected: 12/16/2024, Expires: 02/15/2026 [facility] Work Phone: Comment on above: Expected: 12/16/2024 , Expires: 02/15/2026 Start: 12-16-2024 End: 12-16-2025 US UPPER EXTREMITY NON-VASC LEFT US UPPER EXTREMITY NON-VASC LEFT Imaging Routine Axillary lymphadenopathy H/O diagnostic mammography Expected: 12/16/2024, Expires: 12/16/2025 [facility] Comment on above: Expected: 12/16/2024 , Expires: 12/16/2025 Start: 12-16-2024 End: 12-16-2024 Patient encounter procedure 12/16/2024 9:00 AM EDT Office Visit [facility] [address] [place] [phone] Radha Verduzco, DO [address] [place] [address] [facility] Start: 12-14-2024 End: 12-14-2024 Patient encounter procedure 12/14/2024 8:45 AM EDT Office Visit [facility] [address] [place] [address] Kristopher Herzog, DO [address] [place] [address] Arrived [facility] Comment on above: Arrived Start: 12-06-2024 End: 06-29-2025 DBT Breast - bilateral diagnostic Bilateral diagnostic mammogram with tomosynthesis Imaging Routine Axillary lymphadenopathy Expected: 12/06/2024 (Approximate), Expires: 06/29/2025 [facility] Work Phone: Comment on above: Expected: 12/06/2024 (Approximate), Expires: 06/29/2025 Start: 12-06-2024 Screening for malign ant neoplasm of breast Mammogram [facility] Start: 12-06-2024 End: 04-29-2025 US UPPER EXTREMITY NON-VASC LEFT US UPPER EXTREMITY NON-VASC LEFT Imaging Routine Axillary lymphadenopathy Expected: 12/06/2024, Expires: 04/29/2025 [facility] Comment on above: Expected: 12/06/2024 , Expires: 04/29/2025 Start: 12-02-2024 Medicare Annual Well ness (AWV) Medicare Annual Wellness (AWV) [facility] Start: 10-31-2024 End: 10-31-2024 Patient encounter procedure 10/31/2024 8:00 AM EDT Procedure Visit [facility] [address] [place] [address] Marlon Branham DPM [address] [place] [address] [facility] Start: 10-25-2024 End: 01-25-2025 CT Head WO contrast CT head wo IV contrast Imaging Routine Nonintractable headache, unspecified chronicity pattern, unspecified headache type Neck pain Paresthesia of left arm Numbness of fingers Expected: 10/25/2024 (Approximate), Expires: 01/25/2025 [facility] Comment on above: Expected: 10/25/2024 (Approximate), Expires: 01/25/2025 Start: 10-25-2024 End: 10-25-2025 XR Cervical spine 2 or 3 Views [facility] Work Phone: Comment on above: Expected: 10/25/2024 , Expires: 10/25/2025 Start: 10-03-2024 End: 10-03-2024 Patient encounter procedure 10/03/2024 8:45 AM EST Office Visit [facility] [address] [place] [id number] Kristopher Herzog DO [address] [place] [address] [facility] Start: 09-24-2024 End: 12-21-2024 Basic metabolic 1998 panel - Serum or Plasma Basic metabolic panel Lab Routine Primary hypertension (CMS/HCC) Diabetic peripheral neuropathy associated with type 2 diabetes mellitus ([facility]/HCC) Expected: 09/24/2024, Expires: 12/21/2024 [facility] Comment on above: Expected: 09/24/2024 , Expires: 12/21/2024 Start: 09-24-2024 End: 12-21-2024 Hemoglobin a1c with eag Hemoglobin a1c with eag Lab Routine Diabetic peripheral neuropathy associated with type 2 diabetes mellitus (CMS/HCC) Expected: 09/24/2024, Expires: 12/21/2024 [facility] Work Phone: Comment on above: Expected: 09/24/2024 , Expires: 12/21/2024 Start: 09-23-2024 End: 09-23-2024 Patient encounter procedure 09/23/2024 8:30 AM EST Office Visit [facility] [address] [place] [address] Kristopher Herzog, DO [address] [place] [address] [facility] Start: 09-17-2024 Hemoglobin A1c measurement Diabetes: Hemoglobin A1C [facility] Start: 09-08-2024 Screening for malign ant neoplasm of colon [facility] Start: 08-01-2024 End: 08-01-2024 Patient encounter procedure [facility] Comment on above: Arrived Start: 06-22-2024 End: 06-22-2024 Patient encounter procedure 06/22/2024 8:45 AM EDT Office Visit [facility] [address] [place] [address] Kristopher Herzog, DO [address] [place] [address] [facility] Start: 06-09-2024 End: 06-09-2024 Patient encounter procedure 06/09/2024 9:00 AM EDT Office Visit [facility] [address] [place] [address] Kristopher Herzog, DO [address] [place] [address] [facility] Start: 06-04-2024 Hemoglobin A1c measurement Diabetes: Hemoglobin A1C [facility] Start: 04-29-2024 End: 04-29-2024 Patient encounter procedure 04/29/2024 9:00 AM EDT Office Visit [facility] [address] [place] [address] Radha Verduzco, DO [address] [place] [address] [facility] Start: 04-24-2024 Influenza vaccination Influenza Vacc ine (#1) [facility] Start: 01-06-2024 End: 01-06-2024 Patient encounter procedure 01/06/2024 10:45 AM EDT [facility] [address] [place] [phone] Kristopher Herzog, DO [address] [place] [address] [facility] Start: 12-31-2023 Medicare Annual Well ness (AWV) Medicare Annual Wellness (AWV) [facility] Start: 12-28-2023 [facility] Start: 12-21-2023 End: 12-21-2023 Patient encounter procedure 12/21/2023 1:15 PM EDT Office Visit [facility] [address] [place] [id number] Radha Verduzco, DO [address] [place] [address] [facility] Start: 12-16-2023 End: 12-16-2023 Patient encounter procedure 12/16/2023 10:15 AM EDT [facility] [address] [place] [phone] Marlon Branham DPM [address] [place] [address] [facility] Start: 12-04-2023 Hemoglobin A1c measurement Diabetes: Hemoglobin A1C [facility] Start: 12-02-2023 Screening for malign ant neoplasm of breast Mammogram [facility] Start: 10-13-2023 End: 10-13-2023 Patient encounter procedure 10/13/2023 2:45 PM EST Office Visit [facility] [address] [place] [phone] Branham, Marlon H, DPM [address] [place] [address] [facility] Start: 12-15-2022 [facility] Start: 12-14-2022 Blood chemistry [facility] Start: 12-14-2022 End: 12-14-2022 [facility] Start: 12-13-2022 [facility] Start: 12-13-2022 Computed tomography of abdomen and pelvis with contrast CT abdomen pelvis w con [facility] Start: 12-13-2022 End: 12-13-2022 [facility] Start: 12-13-2022 Physical therapy procedure [facility] Start: 12-13-2022 Referral to occupati onal therapist [facility] Start: 12-13-2022 Hospital admission [facility] Start: 09-23-2022 Bacteria identified in Urine by Culture [facility] Start: 06-23-2022 Duplex scan of lower limb veins US venous duplex LE RT [facility] Start: 06-23-2022 US Lower extremity v ein - right [facility] Start: 02-28-2022 [facility] Start: 05-18-2020 Screening for malign ant neoplasm of colon [facility] Start: 1950 Screening for malign ant neoplasm of colon [facility] Patient Education [facility] Work Phone: Patient referral [facility] Work Phone: [facility] Immunizations Immunization Date Immunization Notes Care Provider Fa [facility] 06-22-2024 Seasonal trivalent influenza vaccine, adjuvanted, preservative free Adam Rodriguez KELLER MACHINE OPERATOR Work Phone: [facility] 06-22-2024 influenza virus vaccine, unspecified formulation Venita Marques KELLER MACHINE OPERATOR Work Phone: [facility] 10-08-2023 RSV, recombinant, protein subunit RSVpreF, adjuvant reconstitu, 120mcg/0.5mL, PF (Arexvy) Marlon Branham DPM Work Phone: [facility] 05-29-2023 Influenza, High-dose Seasonal, Quadrivalent, Preservative Free [facility] AUTOMOTIVE SALES REPRESENTATIVE [facility] 05-29-2023 influenza virus vaccine, unspecified formulation Marlon Branham DPM Work Phone: [facility] 05-27-2023 influenza virus vaccine, unspecified formulation [facility] AUTOMOTIVE SALES REPRESENTATIVE [facility] 05-21-2022 influenza, high dose seasonal, preservative-free [facility] AUTOMOTIVE SALES REPRESENTATIVE [facility] 12-04-2021 Pneumococcal Conjuga te PCV 20 [facility] AUTOMOTIVE SALES REPRESENTATIVE [facility] 05-31-2021 influenza, high dose seasonal, preservative-free [facility] AUTOMOTIVE SALES REPRESENTATIVE [facility] 11-14-2020 COVID-19 mRNA-1273 (Moderna) DO Kristopher Herzog Work Phone: [facility] 10-17-2020 COVID-19 mRNA-1273 (Moderna) DO Kristopher Herzog Work Phone: [facility] 07-26-2020 Seasonal trivalent influenza vaccine, adjuvanted, preservative free [facility] AUTOMOTIVE SALES REPRESENTATIVE [facility] 12-26-2019 KENALOG - 10 mg Lauren Fitt Other [employer] [facility] [employer] Other 08-22-2019 KENALOG - 10 mg Lauren Fitt Other [employer] Other 05-17-2019 Seasonal trivalent influenza vaccine, adjuvanted, preservative free [facility] AUTOMOTIVE SALES REPRESENTATIVE [facility] 01-14-2019 pneumococcal polysaccharide vaccine, 23 valent Lauren Fitt Other [employer] Other 11-05-2018 KENALOG - 10 mg Lauren Fitt Other [employer] Other 05-14-2018 influenza virus vaccine, unspecified formulation DO Kristopher Herzog Work Phone: [facility] 05-14-2018 influenza, high dose seasonal, preservative-free Lauren Fitt Other [facility] [employer] Other 06-12-2017 influenza virus vaccine, unspecified formulation DO Kristopher Herzog Work Phone: [facility] 06-12-2017 influenza, injectabl e, quadrivalent, preservative free [facility] AUTOMOTIVE SALES REPRESENTATIVE [facility] 06-12-2017 influenza, high dose seasonal, preservative-free Lauren Fitt Other [facility] [employer] Other 06-26-2016 influenza virus vaccine, unspecified formulation DO Kristopher Herzog Work Phone: [facility] 06-26-2016 influenza, high dose seasonal, preservative-free Lauren Fitt Other [facility] [employer] Other 07-06-2015 pneumococcal conjuga te vaccine, 13 valent [facility] AUTOMOTIVE SALES REPRESENTATIVE [facility] 06-15-2015 seasonal influenza, intradermal, preservative free [facility] AUTOMOTIVE SALES REPRESENTATIVE [facility] 10-27-2014 KENALOG - 10 mg Lauren Fitt Other [facility] [employer] Other 10-15-2014 KENALOG - 10 mg Lauren Fitt Other [facility] [employer] Other 05-29-2014 influenza virus vaccine, unspecified formulation DO Kristopher Herzog Work Phone: [facility] 05-29-2014 influenza, high dose seasonal, preservative-free Lauren Fitt Other [facility] [employer] Other 08-24-2013 zoster vaccine, live [facility] 04-26-2013 influenza virus vaccine, unspecified formulation DO Kristopher Herzog Work Phone: [facility] 04-26-2013 influenza, seasonal, injectable, preservative free [facility] AUTOMOTIVE SALES REPRESENTATIVE [facility] 04-26-2013 influenza, high dose seasonal, preservative-free Lauren Vance Other [employer] [facility] [employer] Other 04-26-2013 influenza, injectabl e, quadrivalent, preservative free Kiersten Qureshi Other [employer] Other 07-28-2012 seasonal influenza, intradermal, preservative free [facility] AUTOMOTIVE SALES REPRESENTATIVE [facility] 06-30-2011 pneumococcal polysaccharide vaccine, 23 valent [facility] AUTOMOTIVE SALES REPRESENTATIVE [facility] 05-20-2011 seasonal influenza, intradermal, preservative free [facility] AUTOMOTIVE SALES REPRESENTATIVE [facility] Payers Date Payer Category Payer Unknown [id number] 2023 Self-pay [id number] 2021 Medicare [id number] 2021 Medicare (Managed Care) 1.2. [id number] 2021 Unknown [employer] [id number] 2021-Present [address] [place] [address] [id number]. [id number] 2021 Unknown [id number] 2.16.840.1.876522.19 1950 Unknown [id number] 2.16.840.1.907059.3.579.2. 356 1950 Unknown [id number] 2.16.840.1.550153.3.579.2. 1259 1950 Unknown [id number] 2.16.840.1.469645.3.579.2. 1259 1950 Unknown [id number] 2.16.840.1.216428.3.579.2. 1259 1951 Unknown [id number] 2.16.840.1.972049.3.579.2. 125 1951 Unknown [id number] 2.16.840.1.238578.3.579.2. 1259 1950 Unknown [id number] 2.16.840.1.687440.3.579.2. 125 1951 Unknown [id number] 2.16.840.1.507146.3.579.2. 125 1951 Unknown [id number] 2.16.840.1.755415.3.579.2. 1258 1951 Unknown [id number] 2.16.840.1.587616.3.579.2. 1258 1951 Unknown [id number] 2.16.840.1.922811.3.579.2. 125 1951 Unknown [id number] 2.16.840.1.769141.3.579.2. 1258 1951 Unknown [id number] 2.16.840.1.238933.3.579.2. 1258 1951 Unknown [id number] 2.16.840.1.033268.3.579.2. 125 1951 Unknown [id number] 2.16.840.1.709940.3.579.2. 125 1951 Unknown [id number] 2.16.840.1.432743.3.579.2. 125 1951 Unknown [id number] 2.16.840.1.493448.3.579.2. 125 1951 Unknown [id number] 2.16.840.1.217131.3.579.2. 125 1951 Unknown [id number] 2.16.840.1.632347.3.579.2. 1259 1951 Unknown [id number] 2.16.840.1.194681.3.579.2. 1259 1951 Unknown [id number] 2.16.840.1.379497.3.579.2. 1259 1951 Unknown [id number] 2.16.840.1.705663.3.579.2. 1259 1951 Unknown [id number] 2.16.840.1.902218.3.579.2. 1259 1951 Unknown [id number] 2.16.840.1.795447.3.579.2. 1259 1950 Unknown [id number] 2.16.840.1.736134.3.579.2. 1259 Medicare Medicare [id number] Medicare Anthem MCR PFFS [id number] Unknown HCAP/HFA/FAP Active [id number] Unknown [id number] 2.16.840.1.900544.3.579.2. 531 Unknown [id number] 2.16840.1.284799.3.579.2. 531 Unknown [id number] 2.16840.1.698720.3.579.2. 531 Social History Date Type Detail Facility Start: 09-08-2023 End: 01-09-2025 Sex Assigned At [facility] [employer] Other Start: 11-23-2021 End: 10-07-2024 Tobacco smoking status NHIS Ex-smoker (finding) [facility] Start: 1950 Sex Assigned At Female [facility] Start: 07-16-2022 End: 09-08-2023 Tobacco smoking status NHIS Never smoked tobacco (finding) [facility] History of tobacco use Passive smoker [...] Start: 07-04-2024 End: 02-01-2025 Sex Female (finding) [facility] Medical Equipment Procedure Code Equipment Code [...] SELF DRILL ING 3.8X14MM FDA Start: 06-18-2017 [id number] Start: 08-20-2022 1 each by Other route in the morning and 1 each at noon and 1 each in the evening and 1 each before bedtime. [id number] USE TO TEST BLOO D SUGAR 3 TIMES DAILY DIRECTED [id number] Start: 06-13-2023 USE TO TEST BLOO D SUGAR THREE TIMES A DAY DIRECTED [id number] Start: 06-13-2023 BONE 5MM DUO FDA Start: [...] D SUGAR THREE TIMES A DAY DIRECTED [id number] Start: 11-09-2023 USE TO TEST BLOO D SUGAR 3 TIMES DAILY DIRECTED [id number] Start: 11-09-2023 BONE 5MM DUO FDA Start: [...] D SUGAR 3 TIMES A DAY DIRECTED [id number] Start: 01-26-2025 Inject 1 each un momo the skin in the morning and 1 each before bedtime. Use as instructed. [id number] Start: 01-30-2025 BONE 5MM DUO FDA Start: [...] [facility] ionnaire 2 item (PHQ-2) [Reported] [facility] 12-15-2022 Functional status Patient at [facility] Work Phone: [facility] Mental Status Date Assessment Result Facility 12-15-2022 Cognitive function Cognitive Sta tus Patient at [facility] Work Phone: Clinical Notes 05-15-2021 [...] deformity. Surgery was performed on 03/03/2025 at [facility]. Patient complains of pain 0. [...] if problems arise. documented in this encounter [facility] 04-20-2025 History of Present illness Narrative Images from the original note were not included. HPI: Nicol Frances presents today for post-op appointment of correction right hallux deformity. Surgery was performed on 03/03/2025 at [facility]. Patient complains of pain 0. [...] we can recheck. documented in this encounter [facility] 04-05-2025 History of Present illness Narrative Images from the original note were not included. HPI: Nicol Frances presents today for post-op appointment of correction right hallux deformity. Surgery was performed on 03/03/2025 at [facility]. Patient complains of pain 0. [...] did also fabricate a toe spacer from [employer] to help prevent rubbing and dislocation of the toe. 6. Patient was advised if they notice any worsening to the ulceration site including signs of infection, N/F/V/C to call the office for an urgent appointment or go to the nearest emergency room. 7. RTC: 1 week. documented in this encounter [facility] 03-22-2025 History of Present illness Narrative Images from the original note were not included. HPI: Nicol Frances presents today for post-op appointment of correction right hallux deformity. Surgery was performed on 03/03/2025 at [facility]. Patient complains of pain 0. [...] place. Updated orders placed for HHC with [facility]. She was also advised [...] RTC: 3-4 weeks. documented in this encounter [facility] 03-14-2025 History of Present illness Narrative Images from the original note were not included. HPI: Nicol Frances presents today for post-op appointment of correction right hallux deformity. Surgery was performed on 03/03/2025 at [facility]. Patient complains of pain 0. [...] I will order dressing changes with her [facility] nurse. Patient was also advised on beginning passive range of motion exercises to the foot and ankle as well as calf squeezes/compression. Patient does not want a refill of her pain medication. Patient will follow-up in 7-10 days for suture removal. documented in this encounter [facility] 03-09-2025 History of Present illness Narrative Images [...] pain management, which could be scheduled in [place] as she transitions to Dr. Walden. Significant [...] requiring urgent evaluation. Visit was preformed using [employer]-corporate pilot speech recognition. documented in this encounter [facility] 03-07-2025 History of Present illness Narrative HPI: Nicol Frances presents today for post-op appointment of correction right hallux deformity. Surgery was performed on 03/03/2025 at [facility]. Patient complains of pain 0. [...] for suture removal. documented in this encounter [facility] 02-22-2025 Telephone encounter Note Will you please call her and see if she has had anything done? I know I ordered an EKG for her. [facility] Work Phone: 02-22-2025 Miscellaneous Notes Will you please call her and see if she has had anything done? I know I ordered an EKG for her. Called [facility] and [facility] for results. [facility] doesn't have anything after January 2024. [facility] has lab work from December 2024, which we have, and a EKG from October 2024 that they are sending over now. No other results available. I looked on clinisync and do not see labs or an EKG has she done any for her persurgical testing? Please call [facility] and see if we can request recent labs and EKG. I believe she had done her presurgical testing labs there. She is scheduled for 03/[address] Branham. documented in this encounter [facility] 02-22-2025 Telephone encounter Note Called [facility] and [facility] for results. [facility] doesn't have anything after January 2024. [facility] has lab work from December 2024, which we have, and a EKG from October 2024 that they are sending over now. No other results available. [facility] 02-22-2025 Telephone encounter Note I looked on clinisync and do not see labs or an EKG has she done any for her persurgical testing? [facility] 02-22-2025 Telephone encounter Note Please call [facility] and see if we can request recent labs and EKG. I believe she had done her presurgical testing labs there. She is scheduled for 03/[address] Branham. T [facility] 02-16-2025 History of Present illness Narrative Images from the original note were not included. HPI: Patient presents today for their pre-operative appointment. The patient is scheduled for correction right hallux deformity at [facility] with Dr. Branham on 03/03/2025 at [...] myelopathy DVT (deep venous thrombosis) ([facility]) Encounter for current long-term use of 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s Erythema nodosum Essential hypertension, benign Generalized osteoarthrosis unspecified site Hallux hammertoe, left Hallux hammertoe, right Hallux malleus of right foot Hearing loss Hepatitis B Hyperlipidemia, unspecified Obstructive sleep apnea (adult) (pediatric) Orthostatic hypotension Osteoarthritis of knee 12/22/2019 PE (pulmonary thromboembolism) ([facility]) 04/21/2023 Primary osteoarthritis of first carpometacarpal joint of right hand Spinal stenosis in cervical region Type II or unspecified type diabetes mellitus with neurological manifestations, uncontrolled(250.62) ([facility]) Ulcerative colitis (HCC) Unspecified Ulcerative colitis (HCC) [...] A DAY 30 g 3 Continuous Glucose Clinical Resource Manager (FreeStyle Carline 3 [place]) device USE I DEVICE CONTINUOUSLY 1 each [...] evening and 1 each before bedtime. Lancets ([employer] Delica Plus [id number]) [facility] USE TO TEST BLOOD SUGAR 3 TIMES [...] Patient was dispensed their postoperative prescriptions including: [place]. A post-operative shoe was also dispensed for [...] days after surgery. documented in this encounter [facility] 02-13-2025 History of Present illness Narrative Images [...] before. She has not previously consulted an contact center specialist. Her home health nurse visits her [...] times daily, to affected area Continuous Glucose Clinical Resource Manager (FreeStyle [place] 3 [place]) device USE I DEVICE CONTINUOUSLY Continuous Glucose [...] 4 times daily Lancets (OneTouch Delica Plus [id number]) misc USE TO TEST BLOOD SUGAR 3 [...] mellitus (HCC) Gastroesophageal reflux disease Hypercoagulable state ([facility]) correction current use of 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 correction current use of insulin ([facility]) Facet arthritis of lumbosacral region OAB (overactive bladder) Class 1 obesity Spinal stenosis Osteoarthritis of spine with radiculopathy, cervical region Spondylosis of lumbar region without myelopathy or radiculopathy Ulcerative colitis ([facility]) Therapeutic drug monitoring Primary osteoarthritis of right knee Axillary lymphadenopathy Type 2 diabetes mellitus with chronic kidney disease, with long-term current use of insulin ([facility]) Review of Systems Constitutional: Negative for chills, [...] out other underlying conditions. - Referral to contact center specialist for further evaluation and pain management. [...] Venita Marques NP documented in this encounter [facility] 02-01-2025 History of Present illness Narrative Images [...] their surgery date. documented in this encounter [facility] 01-09-2025 History of Present illness Narrative documented in this encounter [facility] 01-04-2025 Evaluation note Diagnosis Onset Date Resolution [...] pulmonary embolism acute March 09, 2025 10:19am [facility] Work Phone: 1(157) 752-253705-14-2025 Evaluation note* Diagnosis Onset Date Resolution Status [...] pulmonary embolism acute March 13, 2025 8:29am [facility] Work Phone: 1(684) 420-131105-14-2025 Evaluation note* Diagnosis Onset Date Resolution Status [...] pulmonary embolism acute March 17, 2025 8:40am [facility] Work Phone: 1(411) 329-813204-25-2025 History of Present illness Narrative* Radha Verduzco, [...] Syringe U/F 30G X 1/2 0.5 ML [facility] cholecalciferol (VITAMIN D-3) 1,000 Units, Daily citalopram (CELEXA) 20 mg, Oral, Every morning clobetasol (Temovate) 0.05 % ointment Topical, 2 times daily clobetasol (Temovate) 0.05 % ointment Topical, 2 times daily Continuous Glucose Clinical Resource Manager (FreeStyle [place] 3 [place]) device USE I DEVICE CONTINUOUSLY Continuous Glucose Sensor (FreeStyle Car[place] 3 Sensor) [facility] 1 Device, Does not apply, Every 14 [...] device 1 each, 4 times daily Lancets (WaveMaker LabsTouch Delica Plus [id number]) [facility] USE TO TEST BLOOD SUGAR 3 TIMES [...] disease Other specified forms Colitis Cough Depression ([facility]/HCC) Depressive disorder ([facility]) not elsewhere classified Displacement of lumbar intervertebral disc without myelopathy DVT (deep venous thrombosis) ([facility]) Encounter for current long-term use of 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s Erythema nodosum Essential hypertension, benign (CMS/[facility]) Generalized osteoarthrosis unspecified site Hallux hammertoe, left Hallux hammertoe, right Hallux malleus of right foot Hearing loss Hepatitis B Hyperlipidemia, unspecified (CMS/[facility]) Obstructive sleep apnea (adult) (pediatric) Orthostatic hypotension Osteoarthritis of knee 12/22/2019 PE (pulmonary thromboembolism) ([facility]) 04/21/2023 Primary osteoarthritis of first carpometacarpal joint of right hand Spinal stenosis in cervical region Type II or unspecified type diabetes mellitus with neurological manifestations, uncontrolled(250.62) ([facility]) Ulcerative colitis Unspecified Ulcerative colitis Other ulcerative colitis Ulcerative colitis Vasculitis ([facility]) 04/24/2021 Venous embolism and thrombosis unspecified deep [...] Exam Vitals reviewed. Exam conducted with a remedial project manager present. HENT: Head: Normocephalic. Eyes: Pupils: Pupils [...] US for that visit. documented in this encounterChristian [id number] Evaluation note* Diagnosis Onset Date Resolution Status [...] pulmonary embolism acute February 01, 2025 9:46am [facility] Work Phone: [phone]) 975-476604-09-2025 Evaluation note* Diagnosis Onset Date Resolution Status [...] pulmonary embolism acute February 22, 2025 8:35am [facility] Work Phone: [phone]) [phone] Evaluation note* Diagnosis Onset Date Resolution Status [...] pulmonary embolism acute January 04, 2025 8:39am [facility] Work Phone: [phone] History of Present illness Narrative* Venita Marques, KELLER MACHINE OPERATOR - 10/25/2024 2:00 PM EST Images from [...] ointment Topical, 2 times daily Continuous Glucose Clinical Resource Manager (FreeStyle Carline 3 [place]) device 1 Device, Does not apply, Continuous Continuous Glucose Sensor (FreeStyle Carline 3 Sensor) misc 1 Device, Does not apply, Every 14 days glucose blood (OneTouch Verio) test strip USE TO TEST BLOOD SUGAR THREE TIMES A DAY DIRECTED Lancet Devices (Autolet) lancing device 1 each, 4 times daily Lancets (OneTouch Delica Plus [id number]) misc USE TO TEST BLOOD SUGAR 3 [...] apnea syndrome Steatosis of liver HTN (hypertension) ([facility]) Peripheral venous insufficiency Anxiety disorder Chronic deep vein thrombosis (DVT) of femoral vein of left lower extremity ([facility]) 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 machines and devices Diabetic peripheral neuropathy associated with type 2 diabetes mellitus ([facility]) Gastroesophageal reflux disease Hypercoagulable state (CMS/HCC) correction current use of 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 correction current use of insulin (CMS/[facility]) Facet arthritis of lumbosacral region OAB (overactive bladder) Class 1 obesity Spinal stenosis Osteoarthritis of spine with radiculopathy, cervical region Spondylosis of lumbar region without myelopathy or radiculopathy Ulcerative colitis ([facility]) Therapeutic drug monitoring Primary osteoarthritis of right [...] follow-up. Venita Marques NP documented in this encounterChristian [id number] Evaluation note* Diagnosis Onset Date Resolution Status [...] pulmonary embolism acute November 30, 2024 8:37am [facility] Work Phone: 1([phone]) 524-544501-17-2025 Evaluation note* Diagnosis Onset Date Resolution Status [...] pulmonary embolism acute November 02, 2024 8:51am [facility] Work Phone: [phone]) [phone] Evaluation note* Diagnosis Onset Date Resolution Status [...] pulmonary embolism acute November 30, 2024 8:37am [facility] Work Phone: [phone]) 780-710512-11-2024 Evaluation note* Diagnosis Onset Date Resolution Status [...] pulmonary embolism acute October 05, 2024 8:36am [facility] Work Phone: [phone] Evaluation note* Diagnosis Onset Date Resolution Status [...] Crohn's colitis acute October 07, 2024 9:04am [facility] Work Phone: [phone]) 178-379912-09-2024 History of Present illness Narrative* Marlon Thurman [...] after her next appointment. documented in this encounterChristian [id number] Evaluation note* Diagnosis Onset Date Resolution Status Admit Date Crohn's colitis acute June 29, 2024 10:28am Internal hemorrhoids acute [facility] 2023 10:28am History of DVT (deep vein thrombosis) acute July 04 8:29am History of pulmonary embolism acute July 04, 2024 8:29am History of DVT (deep vein thrombosis) acute August 03 024 8:24am History of pulmonary embolism acute August 03, 2024 8:24am History of DVT (deep vein thrombosis) acute [place] 17th, 20 25 8:43am History of pulmonary embolism acute September 09, 2024 8:43am [facility] Work Phone: [phone]) 478-566810-30-2024 History of Present illness Narrative* Adam Rodriguez, [...] ointment Topical, 2 times daily glucose blood (Govtodayuch Verio) test strip USE TO TEST BLOOD SUGAR THREE TIMES A DAY DIRECTED insulin aspart protamine-insulin aspart (NovoLOG Mix 70-30) (70-30) 100 UNIT/ML injection 12 Units,Subcutaneous, 2 times daily with meals Lancet Devices (Autolet) lancing device 1 each, 4 times daily Lancets (OneTouch Delica Plus [id number]) misc USE TO TEST BLOOD SUGAR 3 [...] all orders for this visit: Primary hypertension ([facility]/HCC) - Basic metabolic panel; Future Mixed hyperlipidemia ([facility]) -at goal with lipitor and zetia Obstructive sleep apnea syndrome -wears c-pap Peripheral venous insufficiency -chronic left leg edema from previous DVT Chronic deep vein thrombosis (DVT) of femoral vein of left lower extremity ([facility]) 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 machines and devices Diabetic peripheral neuropathy associated with type 2 diabetes mellitus ([facility]) - Hemoglobin a1c with eag; Future - Basic metabolic panel; Future Gastroesophageal reflux disease without esophagitis -taking protonix Hypercoagulable state ([facility]) -on warfarin for DVT 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 The rest the review systems is negative. She return here in three months for a BMP and also an A1c.Patient agrees with plan. Dr. Herzog was present in office suite today and is supervising patient care and available for consult. I'm following his plan of care for the above problems. Previous notes and plan were reviewed and followed. Adam Rodriguez, MSN, AGRICULTURAL PRODUCE PACKER-FIELD CARE MANAGER documented in this encounterChristian [id number] History of Present illness Narrative* Radha Verduzco, [...] 1 each, Other, 4 times daily Lancets (WaveMaker LabsTouch Delica Plus [id number]) [facility] USE TO TEST BLOOD SUGAR 3 TIMES [...] Exam Vitals reviewed. Exam conducted with a remedial project manager present. HENT: Head: Normocephalic. Eyes: Pupils: Pupils [...] will resume yearly evaluations. documented in this encounterChristian [id number] History of Present illness Narrative* Marlon Branham [...] over the callous site. documented in this [facility]08-22-2024 Evaluation note* Diagnosis Onset Date Resolution [...] June 29, 2024 10:28am [facility] 10:28am History of DVT (deep vein thrombosis) acute July 04 024 8:29am History of pulmonary embolism acute July 04, 2024 8:29am [facility] Work Phone: [phone]) [phone] [facility] History and physical note Author Sandy Clark [facility] December 28, 2023 8:33am Note Date/Time December 28, 2023 8:33am [facility] [address] [place] [address] Gastroenterology H&P Signed Patient: Nicol Frances MR#: [id number] : 1950 Acct:[id number] Age/Sex: 73 / F Adm Date: 4 Loc: Room: Type: [facility] Attending Dr: Sandy Clark DO [...] <Electronically signed by Sandy Clark DO> 12/28/23832 [facility] Work Phone: [phone]) 261-355205-06-2024 Procedure noteThe [facility]02-12-20[facility] Evaluation note* Encounter Date Diagnosis Assessment [...] or Wednesdays. Seen by Genie Escobedo PharmD [facility] Other 02-05-2024 Telephone encounter Note* Telephone Encounter - Ruddy Cisneros - 09/28/2023 9:48 AM EST Patient is scheduled. [facility] [id number] Miscellaneous Notes* Telephone Encounter - Ruddy Cisneros [...] shoes that arrived. Thankyou! documented in this encounterChristian [id number] Telephone encounter Note* Telephone Encounter - Kimberly Berger LPN - 09/25/2023 10:23 AM EST Pt called and lvm that she was sorry she missed our call and for someone to give her a call back please and thank you! Christian [id number] Telephone encounter Note* Telephone Encounter - Ruddy Cisneros - 09/25/2023 9:55 AM EST Called patient to schedule appt to obtain shoes. Unable to LVM due to voicemail not set up. Christian [id number] Telephone encounter Note* Telephone Encounter - Kimberly Berger LPN - 09/24/2023 4:43 PM EST Can someone please call pt and schedule her an appointment to potato picker her shoes that arrived. Thankyou! Christian [id number] Evaluation note* Encounter Date Diagnosis Assessment Notes [...] by Samantha Echavarria PharmD Candidate/Tita Roberts PharmD [facility] Other 12-19-2023 Evaluation note* Encounter Date Diagnosis [...] or Wednesdays. Seen by Tita Roberts PharmD [facility] Other 11-21-2023 Evaluation note* Encounter Date Diagnosis [...] Rose Marie Quispe PharmD Candidate/Tita Roberts PharmD [facility] Other 10-23-2023 Evaluation note* Encounter Date Diagnosis [...] to appointments. Seen by Tita Roberts PharmD [facility] Other 09-07-2023 Evaluation note* Encounter Date Diagnosis [...] patient preference. Seen by Rachel Alonso PharmD [facility] Other 08-16-2023 Evaluation note* Encounter Date Diagnosis [...] dosing instructions as above. Seen by An[facility]hiFormerly [facility] Other 07-31-2023 Evaluation note* Encounter Date Diagnosis [...] Anny Qureshi,[facility]ly [facility] Other 07-19-2023 Evaluation note* Encounter Date Diagnosis [...] Anny Qureshi,[facility] Other 07-03-2023 Evaluation note* Encounter Date Diagnosis [...] Anny Qureshi,[facility]ly [facility] Other 04-19-2023 Evaluation note* Encounter Date Diagnosis [...] Qureshi, [facility] Other 03-22-2023 Evaluation note* Encounter Date Diagnosis [...] in 4 weeks. Seen by Anny Qureshi [facility] Other 02-22-2023 Evaluation note* Encounter Date Diagnosis [...] in 4 weeks. Seen by Anny Qureshi [facility] Other 01-25-2023 Evaluation note* Encounter Date Diagnosis [...] Qureshi, [facility] Other 12-28-2022 Evaluation note* Encounter Date Diagnosis [...] Qureshi, [facility] Other 12-01-2022 Evaluation note* Encounter Date Diagnosis [...] high INR. Seen by Olu Rene PharmD [facility] Other 11-03-2022 Evaluation note* Encounter Date Diagnosis [...] can advise her. Seen by Lauren Vance [facility] Other 10-13-2022 Evaluation note* Encounter Date Diagnosis [...] Lovenox, will discontinue Lovenox at this time. [facility]. Seen by Olu Rene PharmD [facility] Other 09-29-2022 Evaluation note* Encounter Date Diagnosis [...] more details. Seen by Olu Rene PharmD [facility] Other 09-13-2022 Evaluation note* Encounter Date Diagnosis [...] as above. Seen by Tk Mora PharmD [facility] Other 08-16-2022 Evaluation note* Encounter Date Diagnosis [...] her Grandson. Seen by Jennifer Amezcua LPN [facility] Other 07-21-2022 Evaluation note* Encounter Date Diagnosis [...] 's appointment. Seen by Tameka Churchill RN [facility] Other 07-07-2022 Evaluation note* Encounter Date Diagnosis [...] 's appointment. Seen by Olu Rene PharmD [facility] Other 06-27-2022 Evaluation note* Encounter Date Diagnosis [...] 's appointment. 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 Seen by Tameka Churchill RN [facility] Other 05-16-2022 Evaluation note* Encounter Date Diagnosis [...] 's appointment. Seen by Marita Luo LPN [facility] Other 05-02-2022 Evaluation note* Encounter Date Diagnosis [...] 's appointment. Seen by Tameka Churchill RN [facility] Other 04-20-2022 Evaluation note* Encounter Date Diagnosis [...] will resume. Seen by Tameka Churchill RN [facility] Other 04-07-2022 Evaluation note* Encounter Date Diagnosis Assessment Notes Treatment Notes Treatment Clinical Notes Nov, Diarrhea (ICD-10 - R19.7) Nov, Rectal bleeding (ICD-10 - K62.5) Nov, Colitis (ICD-10 - K52.9) [facility] Other 04-06-2022 Evaluation note* Encounter Date Diagnosis [...] showing improvement. Seen by Tameka Churchill RN [facility] Other 03-22-2022 Evaluation note* Encounter Date Diagnosis [...] 2 weeks. Seen by Tameka Churchill RN [facility] Other 03-10-2022 Evaluation note* Encounter Date Diagnosis [...] 2 weeks. Seen by Tameka Churchill RN [facility] Other 02-21-2022 Evaluation note* Encounter Date Diagnosis [...] 2 weeks. Seen by Tameka Churchill RN [facility] Other 02-07-2022 Evaluation note* Encounter Date Diagnosis [...] 2 weeks. Seen by Tameka Churchill RN [facility] Other 01-20-2022 Evaluation note* Encounter Date Diagnosis [...] 2 weeks. Seen by Tameka Churchill RN [facility] Other 01-06-2022 Evaluation note* Encounter Date Diagnosis [...] 2 weeks. Seen by Tameka Churchill RN [facility] Other 12-09-2021 Evaluation note* Encounter Date Diagnosis [...] 2 weeks. Seen by Tameka Churchill RN [facility] Other 11-22-2021 Evaluation note* Encounter Date Diagnosis [...] 2 weeks. Seen by Tameka Churchill RN [facility] Other 11-10-2021 Evaluation note* Encounter Date Diagnosis [...] 2 weeks. Seen by Tameka Churchill RN [facility] Other 10-27-2021 Evaluation note* Encounter Date Diagnosis [...] 's appt. Seen by Tameka Churchill RN [facility] Other 10-05-2021 Evaluation note* Encounter Date Diagnosis [...] 's appt. Seen by Tameka Churchill RN [facility] Other 09-22-2021 Evaluation note* Encounter Date Diagnosis [...] with . Seen by Olu Rene PharmD [facility] Other chief complaint+Reason for visit Narrative* Chief Complaint DVT INR Follow Up blood in stool/change in stool/ref M. Sarah R59.0 Procedure Instructions + Lovenox Instructions Reason for Visit History of DVT (deep vein thrombosis) History of pulmonary embolism Rectal bleed Ulcerative colitis History of DVT (deep vein thrombosis) History of pulmonary embolism [facility] Work Phone: chief complaint+Reason for visit Narrative* Chief Complaint DVT INR Follow Up blood in stool/change in stool/ref M. Sarah R59.0 Procedure Instructions + Lovenox Instructions ulcerative colitis/blood in stool ulcerative colitis/blood in stool Reason for Visit History of DVT (deep vein thrombosis) History of pulmonary embolism Rectal bleed Ulcerative colitis History of DVT (deep vein thrombosis) History of pulmonary embolism [facility] Work Phone: chief complaint+Reason for [...] (deep vein thrombosis) History of pulmonary embolism [facility] Work Phone: Chief complaint+Reason for [...] (deep vein thrombosis) History of pulmonary embolism [facility] Work Phone: chief complaint+Reason for [...] (deep vein thrombosis) History of pulmonary embolism [facility] Work Phone: evaluation noteNo InformationNort [address] Other evaluation noteNoGro Other evaluation noteNo assessment information available [facility] Work Phone: evaluation note* Diagnosis Onset Date Resolution Status HTN (hypertension) acute Shakiness acute Weakness acute [facility] Work Phone: evaluation note* Diagnosis Onset Date Resolution Status History of DVT (deep vein thrombosis) acute History of pulmonary embolism acute [facility] Work Phone: Evaluation note* Diagnosis Onset Date Resolution Status History of DVT (deep vein thrombosis) acute History of pulmonary embolism acute Blood in stool acute Ulcerative colitis acute [facility] Work Phone: evaluation note* Diagnosis Onset Date Resolution Status History of DVT (deep vein thrombosis) acute History of pulmonary embolism acute Rectal bleed acute Ulcerative colitis acute [facility] Work Phone: evaluation note* Diagnosis Onset Date Resolution Status History of DVT (deep vein thrombosis) acute History of pulmonary embolism acute Rectal bleed acute Ulcerative colitis acute History of DVT (deep vein thrombosis) acute History of pulmonary embolism acute [facility] Work Phone: Evaluation note* Diagnosis [...] thrombosis) acute History of pulmonary embolism acute [facility] Work Phone: Evaluation note* Diagnosis [...] thrombosis) acute History of pulmonary embolism acute [facility] Work Phone: Evaluation note* Diagnosis Onset Date Resolution Status History of DVT (deep vein thrombosis) acute History of pulmonary embolism acute History of DVT (deep vein thrombosis) acute History of pulmonary embolism acute History of DVT (deep vein thrombosis) acute History of pulmonary embolism acute History of DVT (deep vein thrombosis) acute History of pulmonary embolism acute [facility] Work Phone: Evaluation note* Diagnosis Primary hypertension ([facility])- Primary Unspecified essential hypertension Mixed hyperlipidemia ([facility]) Mixed hyperlipidemia Obstructive sleep apnea syndrome Obstructive sleep apnea (adult) (pediatric) Peripheral venous insufficiency Unspecified venous (peripheral) insufficiency Chronic deep vein thrombosis (DVT) of femoral vein of left lower extremity ([facility]) 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 machines and devices Diabetic peripheral neuropathy associated with type 2 diabetes mellitus ([facility]) Gastroesophageal reflux disease without esophagitis Esophageal reflux Hypercoagulable state ([facility]) Primary hypercoagulable state correction current use of 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 ([facility]) OAB (overactive bladder) Class 1 obesity Spinal stenosis of lumbosacral region Ulcerative colitis without complications, unspecified location ([facility]) Need for immunization against influenza Need for [...] thrombosis) acute History of pulmonary embolism acute [facility] Work Phone: Evaluation note* Diagnosis [...] Ulcerative colitis without complications, unspecified location (CMS/HCC) 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 (CMS/HCC) 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 Sacral ulcer, limited to breakdown of skin ([facility]) documented in this encounter [facility] HealthcareEvaluation note* [...] with type 2 diabetes mellitus (CMS/HCC)- Primary correction current use of insulin (CMS/HCC) Mixed hyperlipidemia (CMS/HCC) Mixed hyperlipidemia Hypercoagulable state (CMS/HCC) Primary hypercoagulable state correction current use of 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 Steatosis of [...] with long-term current use of insulin (HCC) ([facility]/HCC) Diabetic peripheral neuropathy associated with type 2 diabetes mellitus (CMS/HCC) 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 (CMS/HCC) Mixed hyperlipidemia (CMS/HCC) Mixed hyperlipidemia Steatosis of liver Other chronic nonalcoholic liver disease Primary hypertension (CMS/HCC) Unspecified essential hypertension Chronic deep vein thrombosis (DVT) of femoral vein of left lower extremity (CMS/HCC) Spinal stenosis of lumbosacral region 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 documented in this encounter [facility] HealthcareEvaluation note* Diagnosis Onychomycosis- Primary Dermatophytosis of nail Corns and callosities Hallux malleus, right Type II diabetes mellitus with neurological manifestations ([facility]/HCC) Type II or unspecified type diabetes mellitus [...] of skin (HCC) documented in this encounter [facility]* Diagnosis Surgery follow-up examination- Primary Follow-up examination, following unspecified surgery Hallux malleus, right Ulcer of great toe, right, limited to breakdown of skin (HCC) Right foot pain Pain in soft tissues of limb documented in this encounter [facility]* Diagnosis Posterior tibial tendonitis, right- Primary Surgery follow-up examination Follow-up examination, following unspecified surgery Hallux malleus, right Ulcer of great toe, right, limited to breakdown of skin (HCC) documented in this encounter [facility]* Diagnosis Onychomycosis- Primary Dermatophytosis of nail Pain in both feet Type II diabetes mellitus with neurological manifestations (HCC) Type II or unspecified type diabetes mellitus with neurological manifestations, not stated as uncontrolled Corns and callosities Hallux malleus, right Surgery follow-up examination Follow-up examination, following unspecified surgery documented in this encounter [facility] HealthcareHistory general Narrative - Reported* Type [...] surgical Hx Hospitalization History acute gastroenteritis 04/30-05/01/18 [facility] Other History general Narrative - Reported* Type [...] Dr. Maynard. 1 Hospitalization History see above [facility] Other History general Narrative - [facility]ortedNortWell[facility] Other Hospital Discharge instructions Additional Instructions Continue your pain pills at home Return symptoms are worse [facility] Discharge instructions Additional Instructions Continue current meds Return if symptoms are worseOhio State [facility] Work Phone: Reason for referral (narrative)No reason for referral information [facility] Work Phone: Chief Complaint and [...] History of DVT (deep vein thrombosis) No [facility]2023 8:29am History of pulmonary embolism June 242023 8:29am History of DVT (deep vein thrombosis) [facility] 2023 8:24am History of pulmonary embolism July 242023 8:24am History of DVT (deep vein thrombosis) [facility] 2024 8:43am History of pulmonary embolism September 092024 8:43am Chief Complaint Admit Date INR Follow Up August 03, 2024 8:24am INR f/u October 05, 2024 8:36am Reason for Visit Admit Date History of DVT (deep vein thrombosis) [facility] 2023 8:24am History of pulmonary embolism July 242023 8:24am History of DVT (deep vein thrombosis) [facility] 2024 8:43am History of pulmonary embolism September 092024 8:43am History of DVT (deep vein thrombosis) [facility] 2024 8:36am History of pulmonary embolism September 242024 8:36am Chief Complaint Admit Date INR Follow Up August 03, 2024 8:24am INR f/u October 05, 2024 8:36am 3 month Follow up/colitis October 07, 2024 9:04am Reason for Visit Admit Date History of DVT (deep vein thrombosis) [facility] 2023 8:24am History of pulmonary embolism July 242023 8:24am History of DVT (deep vein thrombosis) [facility] 2024 8:43am History of pulmonary embolism September 092024 8:43am History of DVT (deep vein thrombosis) [facility] 2024 8:36am History of pulmonary embolism September 242024 8:36am Crohn's colitis October 07, 2024 9:04am Chief Complaint Admit Date INR f/u October 05, 2024 8:36am 3 month Follow up/colitis October 07, 2024 9:04am INR f/u November 02, 2024 8:5 1am Reason for Visit Admit Date History of DVT (deep vein thrombosis) [facility] 2024 8:43am History of pulmonary embolism September 092024 8:43am History of DVT (deep vein thrombosis) [facility] 2024 8:36am History of pulmonary embolism September 242024 8:36am Crohn's colitis October 07, 2024 9:04am History of DVT (deep vein thrombosis) [facility] 2024 8:51am History of pulmonary embolism October 8:51am Chief Complaint Admit Date INR f/u October 05, 2024 8:36am 3 month Follow up/colitis October 07, 2024 9:04am INR f/u November 02, 2024 8:5 1am INR f/u November 30, 2024 8:37 am Reason for Visit Admit Date History of DVT (deep vein thrombosis) [facility] 2024 8:43am History of pulmonary embolism September 092024 8:43am History of DVT (deep vein thrombosis) [facility] 2024 8:36am History of pulmonary embolism September 242024 8:36am Crohn's colitis October 07, 2024 9:04am History of DVT (deep vein thrombosis) [facility] 2024 8:51am History of pulmonary embolism October 8:51am History of DVT (deep vein thrombosis) [facility] 2024 8:37am History of pulmonary embolism November 30, 2024 8:37am Chief Complaint Admit Date INR f/u October 05, 2024 8:36am 3 month Follow up/colitis October 07, 2024 9:04am INR f/u November 02, 2024 8:5 1am INR f/u November 30, 2024 8:37 am R92.8 December 07, 2024 8:3 4am Reason for Visit Admit Date History of DVT (deep vein thrombosis) [facility] 2024 8:36am History of pulmonary embolism [...] up for her ER visit at the [facility] on 12/06. She was seen for [...] Primary osteoarthritis of left knee Venita Marques, KELLER MACHINE OPERATOR [address] [place] [address] Phone: tel: fax: Caro Hugo PA Phone: tel: fax: Referral ID Status Reason Start Date Expiration Date V isits Requested Visits Authorized [id number] Closed Specialty Services Required 02/13/2025 08/12/2025 1 [...] 2024 End: November 02, 2024 Kiersten Qureshi [facility] Attending Provider Active Start: November 02, 2024 [...] 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 Primary Care Provider Active Child Custody Evaluator Relationship Specialty Start Date End Date Kristopher Herzog DO [address] [place] [address] PCP - Devoted 12/22/21 Kristopher Herzog DO [address] [place] [address] PCP - General Internal Medicine 12/30/22 Team [...] June 06, 2024 End: June 06, 2024 Child Custody Evaluator Relationship Specialty Start Date End Date Kristopher Herzog DO [address] [facility] [address] [place] [address] PCP - Devoted 12/22/21 Kristopher Herzog DO [address] [place] [address] PCP - General Internal Medicine 12/30/22 Child Custody Evaluator Relationship Specialty Start Date End Date Kristopher Herzog DO [address] [place] [address] PCP - Devoted 12/22/21 Kristopher Herzog DO [address] [place] [address] PCP - General Internal Medicine 12/30/22 Team [...] July 04, 2024 End: July 04, 2024 Child Custody Evaluator Relationship Specialty Start Date End Date Kristopher Herzog DO [address] [place] [address] PCP - Devoted 12/22/21 08/23/24 Kristopher Herzog DO [address] [place] [address] PCP - General Internal Medicine 12/30/22 Child Custody Evaluator Relationship Specialty Start Date End Date Kristopher Herzog DO [address] [place] [address] PCP - Devoted 12/22/21 08/23/24 Kristopher Herzog DO [address] [place] [address] PCP - General Internal Medicine 12/30/22 Child Custody Evaluator Relationship Specialty Start Date End Date Kristopher Herzog DO [address] [place] [address] PCP - Devoted 12/22/21 Kristopher Herzog DO [address] [place] [address] PCP - General Internal Medicine 12/30/22 Child Custody Evaluator Relationship Specialty Start Date End Date Kristopher Herzog DO [address] [place] [address] PCP - Devoted 12/22/21 Kristopher Herzog DO [address] [place] [address] PCP - General Internal Medicine 12/30/22 Team [...] September 09, 2024 End: September 09, 2024 Child Custody Evaluator Relationship Specialty Start Date End Date Kristopher Herzog DO [address] [place] [address] PCP - General Internal Medicine 12/30/22 Team Status: Inactive Member Role Status Dates Kristopher Herzog DO Primary Care Provide r, Referring Provider Active Start: October 05, 2024 End: October 05, 2024 Kiersten Qureshi [facility] Attending Provider Active Start: October 05, 2024 End: October 05, 2024 Team Status: Inactive Member Role Status Dates Kristopher Herzog DO Primary Care Provider Active Start: October 07, 2024 End: October 07, 2024 Sandy Clark DO Attending Provider Active St art: October 07, 2024 End: October 07, 2024 Child Custody Evaluator Relationship Specialty Start Date End Date Kristopher Herzog DO [address] [place] [address] PCP - General Internal Medicine 12/30/22 Child Custody Evaluator Relationship Specialty Start Date End Date Kristopher Herzog DO [address] [place] [address] PCP - General Internal Medicine 12/30/22 Child Custody Evaluator Relationship Specialty Start Date End Date Kristopher Herzog DO [address] [place] [address] PCP - General Internal Medicine 12/30/22 Child Custody Evaluator Relationship Specialty Start Date End Date Kristopher Herzog DO [address] [place] [address] PCP - General Internal Medicine 12/30/22 Child Custody Evaluator Relationship Specialty Start Date End Date Kristopher Herzog DO [address] [place] [address] PCP - General Internal Medicine 12/30/22 Child Custody Evaluator Relationship Specialty Start Date End Date Kristopher Herzog DO [address] [place] [address] PCP - General Internal Medicine 12/30/22 Child Custody Evaluator Relationship Specialty Start Date End Date Kristopher Herzog DO [address] [place] [address] PCP - General Internal Medicine 12/30/22 Child Custody Evaluator Relationship Specialty Start Date End Date Kristopher Herzog DO [address] [place] [address] PCP - General Internal Medicine 12/30/22 Child Custody Evaluator Relationship Specialty Start Date End Date Kristopher Herzog DO [address] [place] [address] PCP - General Internal Medicine 12/30/22 Team [...] 22, 2025 End: February 22, 2025 Kristopher eHrzog DO Referring Provider Active St art: February 22, 2025 End: February 22, 2025 Tita Roberts PharmD Attending Provider Active Start: February 22, 2025 End: February 22, 2025 Child Custody Evaluator Relationship Specialty Start Date End Date Kristopher Herzog DO [address] [place] [address] PCP - General Internal Medicine 12/30/22 Child Custody Evaluator Relationship Specialty Start Date End Date Kristopher Herzog DO [address] [facility] [address] [place] [address] PCP - General Internal Medicine 12/30/22 Child Custody Evaluator Relationship Specialty Start Date End Date Kristopher Herzog DO [address] [facility] [address] [place] [address] PCP - General Internal Medicine 12/30/22 Child Custody Evaluator Relationship Specialty Start Date End Date Kristopher Herzog DO [address] [place] [address] PCP - General Internal Medicine 12/30/22 Team [...] March 13, 2025 End: March 13, 2025 Child Custody Evaluator Relationship Specialty Start Date End Date Kristopher Herzog DO [address] [address] PCP - General Internal Medicine 12/30/22 Team Status: Inactive Member Role Status Dates Kristopher Herzog DO Primary Care Provider Active Start: March 17, 2025 End: March 17, 2025 Kristopher Herzog DO Referring Provider Active St art: March 17, 2025 End: March 17, 2025 Kiersten Qureshi [facility] Attending Provider Active Start: March 17, 2025 End: March 17, 2025 Child Custody Evaluator Relationship Specialty Start Date End Date Karlos Morgan MD [address] [facility] [place] [address] PCP - General Family Medicine 03/17/25 Child Custody Evaluator Relationship Specialty Start Date End Date Karlos Morgan MD [address] [facility] [place] [address] PCP - General Family Medicine 03/17/25 Child Custody Evaluator Relationship Specialty Start Date End Date Karlos Morgan MD [address] [facility] [place] [address] PCP - General Family Medicine 03/17/25 Child Custody Evaluator Relationship Specialty Start Date End Date Karlos Morgan MD [address] [facility] [place] [address] PCP - General Family Medicine 03/17/25 Child Custody Evaluator Relationship Specialty Start Date End Date Karlos Morgan MD [address] [place] [address] PCP - General Family Medicine 03/17/25 Child Custody Evaluator Relationship Specialty Start Date End Date Karlos Morgan MD [address] [place] [address] PCP - General Family Medicine 03/17/25 Goals (unrecognized section and content) Goals may be documented in a n alternate section INFORMATION SOURCE (unrecogn ized section and content) DATE CREATED AUTHOR 12/18/2022 [facility] DATE CREATED AUTHOR AUTHOR'S ORGANIZ ATION 12/09/2024 [facility] DATE CREATED AUTHOR AUTHOR'S ORGANIZ ATION 05/28/2025 [facility] FOR RECORDS PERTAINING TO PATIENTS WHO [...] BE BASED ON THE PRIMARY CLINICAL RECORDS. [facility] [employer] provides no warranty or guarantee of the accuracy or completeness of information in this document.
[2025-06-07] MEDS: ATORVASTATIN CALCIUM 40 MG TABLET PO (21:24)
[2025-06-07] MEDS: PANTOPRAZOLE SODIUM 40 MG TABLET.DR PO (21:24)
[2025-06-07] MEDS: HYDROCODONE/ACET 5-325 MG TABLET 1 TAB PO (21:24)
[2025-06-07] MEDS: APIXABAN 5 MG TABLET PO (21:24)
[2025-06-07 21:30] VITALS: BP 115/71; PULSE 69; TEMP 36.9; O2SAT 96; BMI 34.9
[2025-06-07] MEDS: INSULIN ASPART PROT/INSULN ASP 70/30 300 UNIT/3 ML INSULN.PEN 18 UNIT SUBQ (23:04)
[2025-06-07 23:58] VITALS: PULSE 60
[2025-06-08] VITALS (9 sets, daily range): BP systolic 111–155; BP diastolic 66–80; PULSE 56–72; RESP 16; TEMP 36.4–36.5; O2SAT 96–98
[2025-06-08] MEDS: DOXYCYCLINE HYCLATE 100 MG in 0.9 % SODIUM CHLORIDE 100 ML IV (05:46)
[2025-06-08] MEDS: PANTOPRAZOLE SODIUM 40 MG TABLET.DR PO (05:47)
[2025-06-08] MEDS: AMPICILLIN SODIUM/SULBACTAM NA 3 GM in 0.9 % SODIUM CHLORIDE 100 ML IV ×2 (05:47→11:12)
[2025-06-08 06:03] LABS: Hematocrit 33.7 % (36.0-48.0); Hemoglobin 11.4 g/dL (12.0-16.0); Immature Granulocytes Abs Auto 0.00 10^3/uL (0.00-0.03); Immature Granulocytes Pct Auto 0.0 % (0.0-0.5); Lymphocytes Absolute Auto 1.0 10^3/uL (1.2-3.8); Mean Corpuscular HGB Conc 33.8 g/dL (29.9-35.2); Mean Corpuscular Hemoglobin 31.8 pg (26.7-34.0); Mean Corpuscular Volume 93.9 fL (81.0-99.0); Platelet Count 184 10^3/uL (150-450); Red Blood Count 3.59 10^6/uL (4.20-5.40); White Blood Count 4.3 10^3/uL (4.0-11.0)
[2025-06-08 06:13] LABS: Anion Gap 13.4; Blood Urea Nitrogen 21.0 mg/dL (7.0-18.0); Calcium 8.4 mg/dL (8.5-10.1); Carbon Dioxide 23.2 mmol/L (21.0-32.0); Chloride 108 mmol/L (98-107); Estimated GFR (African America >60 (>=60 mL/min/1.73m^2); Estimated GFR (Non-African Ame 51 (>=60 mL/min/1.73m^2); Glucose 122 mg/dL (74-106); Potassium 3.6 mmol/L (3.5-5.1); Sodium 141 mmol/L (136-145)
[2025-06-08] MEDS: APIXABAN 5 MG TABLET PO (08:13)
[2025-06-08] MEDS: CITALOPRAM HYDROBROMIDE 20 MG TABLET PO (08:14)
[2025-06-08] MEDS: POLYETHYLENE GLYCOL 3350 17 GM POWDER PACKET PO (08:14)
[2025-06-08] MEDS: INSULIN ASPART PROT/INSULN ASP 70/30 300 UNIT/3 ML INSULN.PEN 18 UNIT SUBQ (08:14)
--- NOTE | 2025-06-08 09:56 | PM.CN ---
Consult Note: HPI Data of Consult Consult date: 06/08/25 Requesting Physician: MINOR MATUTE MD Primary Care Provider: Karlos Morgan MD Family Provider: ALICIA PANDEY Consult Narrative Reason for consult: Right foot infection Narrative: Patient is a 75year old female who underwent right 1st MPJ fusion in February [address] Branham. Reportedly patient was feeling great up until a few days ago. She relates to not being able to see well so is unsure when exactly the redness started but yesterday her grandson saw her foot and brought her to the ER. 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 In the ER, vitals were stable as they were overnight. She had no leukocytosis but elevation in inflammatory markers. Xrays demonstrated post op and degenerative changes with soft tissue swelling. The hardware over the 1st MPJ is stable and the joint is fused. 2nd toe PIPJ has been fused and is relatively long compared to adjacent toes. At bedside, she feels well and denies pain. She is hoping to be discharged. cc:: CC: MINOR MATUTE MD Review of Systems ROS Status of ROS 10 or more systems reviewed and unremarkable except as noted in history and below [facility] Medical History (Updated 06/07/25 @ 22:41 by Leann Ozuna) Depression ?F32.A - Depression, unspecified (ICD-10) Diuresis ?R35.89 - Other polyuria (ICD-10) Acid reflux disease ?K21.9 - Gastro-esophageal reflux disease without esophagitis (ICD-10) Combined hyperlipidemia associated with type 2 diabetes mellitus ?E11.69 - Type 2 diabetes mellitus with other specified complication (ICD-10) ?E78.2 - Mixed hyperlipidemia (ICD-10) HTN (hypertension) ?I10 - Essential (primary) hypertension (ICD-10) Hernia ?K46.9 - Unspecified abdominal hernia without obstruction or gangrene (ICD-10) SAL (obstructive sleep apnea) ?G47.33 - Obstructive sleep apnea (adult) (pediatric) (ICD-10) Obese ?E66.9 - Obesity, unspecified (ICD-10) Dizziness ?R42 - Dizziness and giddiness (ICD-10) Macular degeneration disease ?H35.30 - Unspecified macular degeneration (ICD-10) Blood clot in leg Surgical History (Updated 06/07/25 @ 22:29 by Leann Ozuna) History of hernia surgery ?Z98.890 - Other specified postprocedural states (ICD-10) ?Z87.19 - Personal history of other diseases of the digestive system (ICD-10) Tubal ligation status ?Z98.51 - Tubal ligation status (ICD-10) Family History (Updated 06/07/25 @ 22:32 by Leann Ozuna) Father Family history of myocardial infarction Family history of diabetes mellitus Daughter Family history of COPD (chronic obstructive pulmonary disease) Family history of diabetes mellitus Sister Family history of cancer Family history of diabetes mellitus Brother Family history of diabetes mellitus Brother Family history of cancer Mother Family history of diabetes mellitus Family history of stroke Social History (Updated 06/07/25 @ 22:35 by Leann Ozuna) Within the past year, how often did you have a drink containing alcohol: never Score interpretation: A score less than 3 is consistent with normal alcohol consumption. 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 Highest level of school completed/degree received: high school graduate Are you now , , , , never or living with a partner: Little interest or pleasure in doing things: several days Feeling down, depressed, or hopeless: not at all Feel stressed/tense/nervous/anxious/difficulty sleeping: only a little Life stressors: recent of family or friend Life stressor details: of her 2021- hasn't been the same since [facility] Home Medications and Allergies Home Medications ?Medication ?Instructions ?Recorded ?Confirmed ?Type citalopram 20 mg tablet 20 mg PO DAILY 12/06/24 06/07/25 History furosemide 20 mg tablet 20 mg PO DAILY 12/06/24 06/07/25 History losartan 50 mg tablet 50 mg PO DAILY 12/06/24 06/07/25 History pantoprazole 40 mg tablet,delayed 40 mg PO Q12H 12/06/24 06/08/25 History release rosuvastatin 20 mg tablet 20 mg PO DAILY 12/06/24 06/07/25 History apixaban 5 mg tablet (Eliquis) 5 mg PO BID 03/24/25 06/07/25 History insulin aspar prot-insulin aspart 18 unit subcut BID 03/31/25 06/07/25 History 100 unit/mL (70-30) subcutaneous pen (Novolog Mix 70-30FlexPen U-100) polyethylene glycol 3350 17 17 g PO DAILY 4 days #68 grams 03/31/25 06/07/25 Rx gram/dose oral powder (Miralax) Allergies Allergy/AdvReac Type Severity Reaction Status Date / Time No Known Drug Allergies Allergy Verified 03/24/25 21:26 Exam Narrative Exam Narrative: Skin: right 2nd toe is swollen with a callus a small ulceration on the tip. No drainage. Erythema has greatly improved as compared to clinical pictures taken by the ER. Vasc: Pedal pulses are faintly palpable. Minimal erythema of the dorsal second toe. Neuro: absent protective and vibratory sensation MSK: 1st MPJ is fused with residual deformity at the hallux IPJ. 2nd toe has mild contracture at DIPJ and is long compared to 1st and 3rd toes. There is no POP and no fluctuance Constitutional Vital Signs, click to edit/add: Last Vital Signs Temp 97.7 F 06/08/25 08:00 Pulse 71 06/08/25 08:00 Resp 20 06/08/25 08:00 BP 155/78 H 06/08/25 08:00 Pulse Ox 96 06/08/25 08:00 O2 Del Method Room Air 06/08/25 08:00 FiO2 21 06/08/25 02:00 Results Labs Labs: Short CBC 06/07/25 06/08/25 Range/Units 15:47 05:55 WBC 6.0 4.3 (4.0-11.0) 10^3/uL Hgb 12.3 11.4 L (12.0-16.0) g/dL Hct 35.6 L 33.7 L (36.0-48.0) % Plt Count 212 184 (150-450) 10^3/uL BMP 06/07/25 06/08/25 15:47 05:55 Sodium 139 141 Potassium 3.6 3.6 Chloride 105 108 H Carbon Dioxide 21.9 23.2 BUN 23.0 H 21.0 H Creatinine 1.15 H 1.05 H Glucose 180 H 122 H Calcium 9.4 8.4 L Liver Function 06/07/25 Range/Units 15:47 Total Bilirubin 0.3 (0.2-1.0) mg/dL AST 13 L (15-37) U/L ALT 22 (14-59) U/L Alkaline Phosphatase 72 (46-116) U/L Albumin 3.4 (3.4-5.0) g/dL Assessment and Plan Assessment and Plan (1) Cellulitis of foot: (2) Cellulitis of leg, right: Plan Patient seen and evaluated. I discuss the lab and xray findings and answered all questions I discussed patient's status with the hospitalist. Patient may be d/c home on PO antibiotics likely today vs tomorrow She is WBAT and should cover the tip of the toe with a band-aide Follow-up with Dr. Branham (her surgeon) next week - Dr. Branham was made aware of the patient's admission and agreed to see patient next week
--- NOTE | 2025-06-08 11:05 | SWNOTE1 ---
Medicare Outpatient Observation Notice reviewed and discussed with patient. Pt. verbalized understanding and signed the form. Original given to patient and copy placed in patient?s chart.
[2025-06-08] MEDS: PNEUMOC 20-VAL CONJ-DIP CRM/PF 0.5 ML SYRINGE IM (11:13)
[2025-06-08] MEDS: FLU VACC TS2025-26(65YR UP)/PF 180 MCG/0.5 ML SYRINGE IM (11:17)
--- NOTE | 2025-06-08 11:27 | SWNOTE1 ---
SW met with pt to discuss dc needs. Pt lives at home alone. She does use a rollator in the home. Pt has 2 daughters, one of them lives here in [place]. Her daughter does the grocery shopping for her and helps if pt needs it. Pt used to have [facility] health coming in to do dressing changes and she really liked the nurse. Pt is requesting HH services again at discharge. SW to speak with physician/case management in regards to this. Pt denies any other needs at home at this time. PT coming in to room to work with pt. SW did speak with case management and pt is appropriate for home health services. SW also spoke with PT and home health is being recommended. Pt would like to use [facility]. SW to send referral. Referral sent to [facility]. Referral included face sheet, ED note, H&P, provider notes, case management report, podiatry consult, nursing notes, and PT/OT notes.
--- NOTE | 2025-06-08 11:58 | P.DS_ITS ---
DS: Providers Provider Date of admission: 06/07/25 20:24 Primary care physician: Karlos Morgan MD Consults: 06/07/25 18:05 Consult to Podiatry Routine Consulting Provider: Waqar Baugh Reason for consultation: R foot cellulitis, diabetic foot 06/08/25 Physical Therapy Eval and Treat Routine Reason for consultation: weakness DS: Diagnosis Discharge Diagnosis (1) Cellulitis of foot: (2) Cellulitis of leg, right: Plan as above DS: Summary Hospital Course Hospital Course: Patient is a 75 year old female with PMH as listed came here with redness and R foot swelling has been worsening and going up her RLE to below her knee at this time. denies fever, chills, nausea, vomiting. She did have bunion surgery back in February this year at [facility] Dr. Branham Podiatry. Here in ER, x ray done showed soft tissue swelling consistent with cellulitis. Pt with hx of DVT and on Eliquis. ER team spoke with our podiatry and agreed to see pt on consult. Patient was kept here for IV AB for cellulitis of R foot. During hospital course, patient received IV antibiotics while here with remarkable improvement in her RLE swelling and redness. This morning it looks much better and less edema and pain. Remained afebrile here, no leukocytosis. PT consulted, patient was able to ambulate on her leg with no issues. Podiatry was consulted, input appreciated. Recommended WBAT and cover the tip of her toe with bandaide. No need for podiatry intervention at this time. Advised to follow up with her podiatry Dr. Branham as outpatient. Our podiatry discussed the case with Dr. Branham and made aware of pt admission here. I discussed with pt at bedside, she is comfortable going home today on oral antibiotics. will provided her with Augmentin and doxycycline to complete adequate course of treatment. Patient is in agreement and comfortable with discharge plan. CM following for needs on discharge for wound care and home health services. Time Spent with Patient Time attestation: Total time spent providing and/or coordinating discharge services: Time spent: greater than 30 minutes Exam Narrative Exam Narrative: General: Well-appearing and in no apparent distress. Skin: Warm, dry, no pallor noted. No rash. Head: Normocephalic, atraumatic. Neck: Supple, non-tender. Eye: Pupils are equal, round and EOMI. No scleral icterus. Cardiovascular: Regular Rate and Rhythm without murmur, gallop or rub. Respiratory: No accessory muscle use or respiratory distress. Lungs are clear to auscultation, no wheezing, rales or rhonchi Chest Wall: no tenderness GI: Abdomen is soft, non-distended. Normal bowel sounds. No masses appreciated. No tenderness to palpation. No rebound, guarding, or rigidity noted. Neurological: A&O x4. No cranial nerve dysfunction observed. No truncal ataxia. Moves all extremities. Sensation intact. RLE: R foot and ankle much improved edema and redness, less tender, nonpurulent. R tip 2nd toe small ulceration w callus, dry. no obvious open wounds or discharge. Psychiatric: Cooperative and interactive. Normal mood and affect. Constitutional Vital Signs, click to edit/add: Last Vital Signs Temp 97.7 F 06/08/25 08:00 Pulse 65 06/08/25 11:36 Resp 20 06/08/25 08:00 BP 155/78 H 06/08/25 08:00 Pulse Ox 96 06/08/25 08:00 O2 Del Method Room Air 06/08/25 08:00 FiO2 21 06/08/25 02:00 DS: Data Data Completed and Pending Labs on day of discharge: Labs from last 24 hours 06/08/25 06/07/25 05:55 15:47 WBC 4.3 6.0 RBC 3.59 L 3.84 L Hgb 11.4 L 12.3 Hct 33.7 L 35.6 L MCV 93.9 92.7 MCH 31.8 32.0 MCHC 33.8 34.6 RDW 12.5 12.7 Plt Count 184 212 MPV 10.5 10.4 Neut % (Auto) 58.7 66.7 Lymph % (Auto) 24.4 21.3 [place] % (Auto) 10.1 7.7 Eos % (Auto) 5.9 3.4 Baso % (Auto) 0.9 0.7 Neut # (Auto) 2.5 4.0 Lymph # (Auto) 1.0 L 1.3 [place] # (Auto) 0.4 0.5 Eos # (Auto) 0.3 0.2 Baso # (Auto) 0.0 0.0 Abs Immat Gran (auto) 0.00 0.01 Imm/Tot Granulo (auto) 0.0 0.2 ESR 82 H Sodium 141 139 Potassium 3.6 3.6 Chloride 108 H 105 Carbon Dioxide 23.2 21.9 Anion Gap 13.4 15.7 BUN 21.0 H 23.0 H Creatinine 1.05 H 1.15 H Est GFR ( Amer) >60 56 L Est GFR (Non-Af Amer) 51 L 46 L BUN/Creatinine Ratio 20.0 20.0 Glucose 122 H 180 H Lactate 1.1 Calcium 8.4 L 9.4 Total Bilirubin 0.3 AST 13 L ALT 22 Alkaline Phosphatase 72 C-Reactive Protein 1.48 H Total Protein 7.8 Albumin 3.4 Globulin 4.4 Albumin/Globulin Ratio 0.8 Discharge Plan Discharge Disposition: Home Health Service Discharge Medications: New amoxicillin-pot clavulanate 875-125 mg tablet 1 tab PO BID 12 Days Qty: 24 0RF doxycycline hyclate 100 mg capsule 100 mg PO BID 12 Days Qty: 24 0RF Continued losartan 50 mg tablet 50 mg PO DAILY citalopram 20 mg tablet 20 mg PO DAILY pantoprazole 40 mg tablet,delayed release (DR/EC) 40 mg PO Q12H furosemide 20 mg tablet 20 mg PO DAILY rosuvastatin 20 mg tablet 20 mg PO DAILY Eliquis 5 mg tablet 5 mg PO BID insulin asp prt-insulin aspart [Novolog Mix 70-30FlexPen U-100] 100 unit/mL (70-30) insulin pen 18 unit SUBCUT BID polyethylene glycol 3350 [Miralax] 17 gram/dose powder 17 g PO DAILY 4 Days Qty: 68 0RF Print Language: Nepali Forms: Portal Instructions Follow Up Appointments: 06/14 @ 8am with Dr. Branham [phone] 06/14 @ 1pm with Dr. Morgan [phone]
--- NOTE | 2025-06-08 13:24 | PC.NURSE ---
tele and iv dc'd for discharge. instructions reviewed and explained to pt. verbalized understanding. taken to exit via wheelchair, discharged with rollator and belongings. discharged to daughter in private vehicle.
--- OUTSIDE RECORDS SUMMARY | 2025-06-08 13:26 | XMS_ITS | CCD ---
Author Organization [facility] Care Team Providers Care Chain Hooker Name Role Phone Lauren Vance Unavailable Antonio Thompson Unavailable Tang Mcclellan Unavailable [phone] DO Kristopher Herzog Primary Care Provider MD Tang Mcclellan Attending Provider IRAM Molina Attending Provider DO Kristopher Herzog Attending Provider DO Kristopher Herzog Primary Care Provider DO Kristopher Herzog Attending Provider [phone] DO Radha Verduzco Attending Provider [phone] DO Kristopher Herzog Primary Care Provider [phone] IRAM Molina Attending Provider DO Kristopher Herzog Attending Provider DO Radha Verduzco Attending Provider MD Edmond Branham Emergency Provider Olu Rene Unavailable DO Kristopher Herzog Primary Care Provider DO Kristopher Herzog Attending Provider [phone] Kiersten Qureshi Unavailable DO Kristopher Herzog Primary Care Provider MD Edmond Branham Emergency Provider [phone] DO Kristopher Herzog Attending Provider DO Radha Verduzco Attending Provider DO Kristopher Herzog Attending Provider [phone] FAITH Lobo Emergency Provider MD Rosalina Shelton Admit Provider [phone] MD Rosalina Shelton Attending Provider DO Chuy Kristopher Primary Care Provider [phone] DO Gabriel Castaneda Attending Provider DO Kristopher Herzog Primary Care Provider DO Kristopher Herzog Attending Provider DO Radha Verduzco Attending Provider [phone] NO FAMILY, PHYSICIAN Primary Care Provider Unava ilable Tita Roberts Unavailable Kristopher Herzog DO Unavailable Kristopher Herzog DO Primary Care Provider DO Kristopher Herzog Primary Care Provider DO Kristopher Herzog Attending Provider DO Chuy Kristopher Primary Care Provider DO Kristopher Herzog Attending Provider DO Radha Verduzco Attending Provider Ly, DO Sandy L Attending Provider DO Kristopher Herzog Primary Care Provider [phone] DO Johnny Keen Emergency Provider DO Kristopher Herzog Primary Care Provider [phone] DO Chuy Kristopher Primary Care Provider Kristopher Herzog DO Unavailable [phone] Kristopher Herzog Primary Care Unavailable Ly, Sandy L Admitting Unavailable Ly, Sandy L Attending Unavailable Johnny Keen Admitting Unavailable Johnny Keen Attending Unavailable Kristopher Herzog Primary Care Unavailable Radha Verduzco Admitting Unavailable Radha Verduzco Attending Unavailable Kristopher Herzog Primary Care Unavailable Kristopher Herzog DO Primary Care Provider [phone] Radha Verduzco DO Attending Provider Kristopher Herzog DO Primary Care Provider [phone] Kristopher Herzog DO Referring Provider Kiersten Qureshi RPH Attending Provider Toyin Roberts PharmD, Tita Attending Provider Kristopher Batista DO Primary Care Provider [phone] Kristopher Herzog DO Referring Provider Kiersten Qureshi RPH Attending Provider Karlos Ramey MD Primary Care Provider [phone] KRISTOPHER HERZOG Attending Unavailable KRISTOPHER HERZOG Referring [...] needed for pain take 2 tablets by [facility] twice daily as needed for pain acetaminophen (Tylenol Extra Strength) 5 00 MG tablet Take 1,000 mg by mouth 2 (two) times a day as needed for mild pain. Active Tylenol Active acetaminophen 325 mg / HYDROcodone bitartrate 5 mg oral tablet (20 sources) Opioid Agonist Start: 03-02-2025 End: 03-07-2025 take 1 tablet by mouth every six hours for pain HYDROcodone-acetaminophen ([place]) 5-325 MG tablet Indications: Hallux malleus, right , Right foot pain Take 1 tablet by mouth every 6 (six) hours if needed for severe pain for up to 5 days 20 tablet 03/02/2025 03/07/2025 Active Start: 02-16-2025 End: 02-21-2025 take 1 tablet by mouth every six hours for pain HYDROcodone-acetaminophen ([place]) 5-325 MG tablet Indications: Hallux malleus, right [...] six hours as needed for pain Hydrocodone-Acetaminophen ([place]) 5-325 mg tablet Discontinued 1 TAB PO [...] 30 g 2 09/17/2023 Active Continuous Glucose Speech Therapy Assistant (FreeStyle Carline 3 [place]) device (20 sources) Start: 11-01-2024 Continuous Glu cose Speech Therapy Assistant (FreeStyle [place] 3 [place]) device Indications: Diabetic peripheral neuropathy associated with type 2 diabetes mellitus (HCC) , half-way current use of insulin ([facility]) USE I DEVICE CONTINUOUSLY 1 each 3 11/01/2024 Active Start: 11-01-2024 Continuous Glu cose Speech Therapy Assistant (FreeStyle [place] 3 [place]) device Indications: Diabetic peripheral neuropathy associated with type 2 diabetes mellitus (CMS/HCC) , 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 (CMS/HCC) USE I DEVICE CONTINUOUSLY 1 each 3 11/01/2024 Active Start: 09-06-2024 End: 09-06-2025 Continuous Glucose Speech Therapy Assistant (FreeStyle Carline 3 [place]) device Indications: Diabetic peripheral neuropathy associated with type 2 diabetes mellitus (CMS/HCC) , half-way current use of insulin (CMS/HCC) 1 Device continuously 1 each 09/06/2024 09/06/2025 Active Continuous Glucose Sensor (FreeStyle Carline 3 Sensor) misc (20 sources) Start: 09-06-2024 End: 09-06-2025 Continuous Glucose Sensor (FreeStyle Carline 3 Sensor) misc Indications: Diabetic peripheral neuropathy associated with type 2 diabetes mellitus (HCC) , 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 (HCC) 1 Device every 14 (fourteen) days 7 each 3 09/06/2024 09/06/2025 Active Start: 09-06-2024 End: 09-06-2025 Continuous Glucose Sensor (F reeStyle Carline 3 Sensor) [facility] [place]ications: Diabetic peripheral neuropathy associated with type 2 diabetes mellitus (CMS/HCC) , 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 (CMS/HCC) 1 [...] 2 tablets by mouth once daily Vitamins A,C,N-Kgma-Oovrdk (Preservision Areds) 7,160 unit- 113 mg-100 unit [...] 08, 2021 10:21am take 1 capsule by [facility] every twelve hours Gabapentin 100 [...] 2022 11:00pm November 09, 2023 9:07am nystatin [id number] unt/ml topical cream (20 sources) Polyene Antifungal [...] aftercare (20 sources) Drug therapy finding; Translations: [half-way (current) use of 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s] Episodic Other aftercare [...] sources) Long-term current use of insulin; Translations: [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 Hammertoes to the lesser digits. [facility] Radiology Study observation (narrative) [facility] No Panel InformationOrdered By: Tita Roberts on 02-22-2025 Bedside INR (LAB) 3.8 [facility] XR Foot - right 3 [facility] Result: Three views of the right foot: AP, MO, LAT were performed today in the office. Radiographs were read by myself and demonstrate: No evidence of acute fracture or dislocation. 1st MPJ arthrodess right with enlarged distal medial proximal phalanx and lateral deviation of the hallux at the IPJ. [facility] Radiology Study observation (narrative) [facility] [...] Qureshi on 02-09-2025 Bedside INR (LAB) 3.2 [facility] No Panel Informationon 02-01 Bedside INR (LAB) 4.0 [facility] ALL CBC WITH AUTO DIFFon [...] fL [facility] EO # 0.1 [facility] PLT 223 [facility] RBC 3.91 Low [facility] WBC 5.1 [facility] ALL BASIC METABOLIC PANELon 01-05-2025 Anion gap [Moles/Vol] 12.2 mmol/L [facility] Calcium [Mass/Vol] 8.9 mg/dL 8.5 - 10. [...] 145 mmol/L [facility] EGFR-NON AF PAK[place]ANI 54 Low >=60 mL/min/1.7 3m 2 [facility] Urea nitrogen [Mass/Vol] 27 mg/dL High 7.0 - 18.0 mg/dL [facility] Urea nitrogen/Creatinine [Mass ratio] 26.7 mg/mg [facility] No Panel Informationon 01-04 Bedside INR (LAB) 2.7 [facility] MM diagnostic mammo BI w/CAD on 12-07-2024 MM diagnostic mammo BI w/CAD [facility] [address] [place] [address] Mammography Report Signed Patient: Nicol Frances MR#: [id number] 94 : 1950 Acct:[id number] Age/Sex: 74 / F Adm Date: 12/07/24 Loc: [place] Room: Type: [facility] Attending Dr: Radha Verduzco DO Ordering Provider: Radha Verduzco DO Date of Service: 12/07/24 Procedure(s): MM diagnostic mammo BI w/CAD Accession Number(s): ([id number]) MM/MM diagnostic mammo BI w/CAD: Yrly mamms [...] Leon Jr., Ronald.OOmari12/07/2024 9:30 AM Dictation Location: [facility] Dictated By: Noe De Leon Jr, DO 12/07/2422 Signed By: 12/07/24 0930 Normal [facility] Mammography reportOrdered By : Noe De Leon on 12-07-2024 Diagnostic imaging study [facility] [address] [place] [address] Mammography Report Signed Patient: Nicol Frances MR#: [id number] : 1950 Acct:[id number] Age/Sex: 74 / F Adm Date: 5 Loc: [place] Room: Type: [facility] Attending Dr: Radha Verduzco DO Ordering Provider: Radha Verduzco DO Date of Service: 12/07/24 Procedure(s): MM diagnostic mammo BI w/CAD Accession Number(s): ([id number]) MM/MM diagnostic mammo BI w/CAD: Yrly mamms [...] Jr, DO 12/07/24 0922 Signed By: 12/07/2430 [facility] No Panel Informationon 11-30 Bedside INR (LAB) 2.[address] [facility] [address] ABDOMEN PELVIS W IV CONTR Juanpablo [...] BY: Maurice Egan, DO Normal Not Available [facility] US LOWER EXTREMITY VENO US [...] Panel Informationon 11-02 Bedside INR (LAB) 2.[address] [facility] [address] HEAD WO IV CONTRASTon CT HEAD [...] Panel Informationon 10-05 Bedside INR (LAB) 2.5 [facility] No Panel Informationon 09-09 Bedside INR (LAB) 2.3 [facility] No Panel Informationon 08-03 Bedside INR (LAB) 2.0 [facility] No Panel Informationon 07-04 Bedside INR (LAB) 2.2 [facility] Comprehensive metabolic pane jimbo 06-18-2024 Albumin [Mass/Vol] 4.1 g/dL 3.8 - 4.8 g/[facility] ALP [Catalytic activity/Vol] 53 U/L [facility] ALT [Catalytic activity/Vol] 12 U/L [facility] AST [Catalytic activity/Vol] 16 U/L [facility] Bilirubin [Mass/Vol] 0.2 mg/dL 0.0 - 1 .2 mg/dL [facility] Calcium [Mass/Vol] 9.6 mg/dL 8.7 - [...] results Abnormal [facility] Performed at: - [address] [id number] Massage Therapy Instructor: Juan Dunbar PhD, Phone: [phone] [facility] Specimen Status Reporton Clindamycin Disk diffusion (KB) [[facility]] Comment [facility] Comment on above: Ambig Abbrev CMP14 D efault Ambig Abbrev CMP14 Default A hand-written panel/profile was received from your office. In accordance with the [facility] Ambiguous Test Code Policy dated February 2003, we have completed your order by using the closest currently or formerly recognized AMA panel. We have assigned Comprehensive Metabolic Panel (14), Test Code #057378 to this request. If this is not the testing you wished to receive on this specimen, please contact the [facility] Client [facility]/Technical Services Department to clarify the test order. We appreciate your business. Ambig Abbrev LP Default Ambig Abbrev LP Default A hand-written panel/profile was received from your office. In accordance with the [facility] Ambiguous Test Code Policy dated February 2003, we have completed your order by using the closest currently or formerly recognized AMA panel. We have assigned Lipid Panel, Test Code #612026 to this request. If this is not the testing you wished to receive on this specimen, please contact the [facility] Client Inquiry/Technical Services Department to clarify the test order. We appreciate your business. No Panel Informationon 06-06 Bedside INR (LAB) 2.1 [facility] No Panel Informationon 05-09 Bedside INR (LAB) 2.5 [facility] No Panel Informationon 04-14 Bedside INR (LAB) 2.5 [facility] No Panel Informationon 03-14 Bedside INR (LAB) 2.2 [facility] No Panel Informationon 02-16 Bedside INR (LAB) 2.1 [facility] Activated partial thrombopla stin time (aPTT) in [...] coagulation studies. Please contact the laboratory at [phone] for redraw instructions. Automated basophil %Ordered By: Johnny Keen on 02-09-2024 Basophils/100 WBC (Bld) 0.6 % Normal . [facility] Comment on above: Performed By: #### P T, PTT, BMP, CBC #### [facility] [address] [place] [address] Automated basophil countOrde red By: Johnny Keen on 02-09-2024 Basophils (Bld) [#/Vol] 0.0 10*3/uL Normal 0.0-0.2 [facility] Comment on above: Result Comment: PERF ORMED BY: [place] [address] PATHOLOGIST SHINGLER GLENYS BARRON M.D. Performed By: #### P T, PTT, BMP, CBC #### [address] Automated blood monocyte cou ntOrdered By: Johnny Keen on 02-09-2024 Monocytes (Bld) [#/Vol] 0.5 10*3/uL Normal 0.0-0.8 [facility] Comment on above: Performed By: #### P T, PTT, BMP, CBC #### [facility] [address] [place] [address] Automated eosinophil %Ordere d By: Johnny Keen on 02-09-2024 Eosinophils/100 WBC (Bld) 0.4 % Normal . [facility] Comment on above: Performed By: #### P T, PTT, BMP, CBC #### [facility] [address] [place] [address] Automated eosinophil countOr dered By: Johnny Keen on 02-09-2024 Eosinophils (Bld) [#/Vol] 0.0 10*3/uL Normal 0.0-0.45 [facility] Comment on above: Performed By: #### P T, PTT, BMP, CBC #### [facility] [address] [place] [address] Automated epithelial cells c ount in urine sediment (number/area)Ordered By: Johnny Keen on 02-09-2024 Epithelial cells Auto (Urine sed) [#/Area] 10-19 [HPF] High 0-2 [facility] Automated monocyte %Ordered By: Johnny Keen on 02-09-2024 Monocytes/100 WBC (Bld) 8.0 % Normal . [facility] Comment on above: Performed By: #### P T, PTT, BMP, CBC #### [facility] [address] [place] [address] Automated neutrophil %Ordere d By: Johnny Keen on 02-09-2024 Neutrophils/100 WBC (Bld) 73.4 % Normal . [facility] Comment on above: Performed By: #### P T, PTT, BMP, CBC #### [facility] [address] [place] [address] Bacteria [Presence] in Urine by AutomatedOrdered By: Johnny Keen on 02-09-2024 Bacteria Auto Ql (U) 1+ [HPF] High None Seen [facility] Basic Metabolic Panelon 01-22 Creatinine Clr Calc Pharmacy 48.37 Normal [facility] Comment on above: Result Comment: PERF ORMED BY: [place] [address] PATHOLOGIST SHINGLER GLENYS BARRON M.D. Performed By: #### P T, PTT, BMP, CBC #### [facility] [address] [place] [address] GFR/1.73 sq M.predicted MDRD (S/P/Bld) [Vol rate/Area] 59.856 mL/min/{1.73_m2} Normal [facility] Comment on above: Performed By: #### P T, PTT, BMP, CBC #### [address] Bilirubin Test strip Ql (U)O rdered By: Johnny Keen on 02-09-2024 Bilirubin Ql (U) Negative Negative [facility] CT head/brain wo conon 02-08 CT head/brain wo con [facility] [address] [place] [address] CT Scan Report Signed Patient: Nicol Frances MR#: [id number] 94 : 1950 Acct:[id number] Age/Sex: 73 / F ADM Date: 02/09/24 Loc: ER Room: Type: [facility] ER Attending Dr: Copies to: Johnny Keen DO Ordering Provider: Johnny Keen DO Date of Service: 02/09/24 CT/CT cervical spine wo con: fall ([id number]) CT/CT head/brain wo con: fall CLINICAL DATA: [...] Denise Wallace M.D.02/09/2024 11:26 AM Dictation Location: [place] [address] Transcribed By: [facility] 02/09/24 1126 Dictated By: Denise Wallace MD 02/09/24 1114 Signed By: 02/09/24 1126 Normal [facility] CT lumbar spine wo con CT lumbar spine wo [facility] [address] [place] [address] CT Scan Report Signed Patient: Nicol Frances MR#: [id number] [birth year] : 1950 Acct:[id number] Age/Sex: 73 / F ADM Date: 02/09/24 Loc: ER Room: Type: [facility] ER Attending Dr: Copies to: Johnny [...] Denise Wallace M.D.02/09/2024 11:39 AM Dictation Location: [place] [address] Transcribed By: [facility] 02/09/24 1132 Dictated By: Denise Wallace MD 02/09/24 1126 Signed By: 02/09/24 1139 Normal [facility] Calcium [Mass/volume] in Ser um or PlasmaOrdered By: Johnny Keen on 02-09-2024 Calcium [Mass/Vol] 8.8 mg/dL Normal 8.6-10.3 [facility] Comment on above: Performed By: #### P T, PTT, BMP, CBC #### [address] Carbon dioxide, total [Moles /volume] in Serum or PlasmaOrdered By: Johnny Keen on 02-09-2024 CO2 [Moles/Vol] 22.0 mmol/L Normal 21.0-31.0 [facility] Comment on above: Performed By: #### P T, PTT, BMP, CBC #### [address] Casts typing in urine sedime nt by light microscopyOrdered By: Johnny Keen on 02-09-2024 Casts LM Nom (Urine sed) None seen [LPF] None Seen [facility] Chloride [Moles/volume] in S remi or PlasmaOrdered By: Johnny Keen on 02-09-2024 Chloride [Moles/Vol] 103 mmol/L Normal 98-107 [facility] Comment on above: Performed By: #### P T, PTT, BMP, CBC #### [address] Color of Urine by AutoOrdere d By: Johnny Keen on 02-09-2024 Color (U) Light-yellow Normal Yellow [facility] Comment on above: Order Comment: Name Collection Type:: Clean-Voided Midstream Performed By: #### C UU, ADDONUAPLUS #### [address] Complete Blood Count Auto Di ffon 02-09-2024 Mean Corpuscular HGB Conc 34.2 g/dL Normal 32.0-35.0 [facility] Comment on above: Performed By: #### P T, PTT, BMP, CBC #### [place] [address] [place] Monocytes/100 WBC (Bld) 17.76 % Normal 0.00-20.00 [facility] Comment on above: Performed By: #### P T, PTT, BMP, CBC #### [facility] [address] [place] [address] [place] NRBC% 0.0 /100{WBC} Normal 0-0.5 [facility] Comment on above: Performed By: #### P T, PTT, BMP, CBC #### [facility] [address] [place] [address] [place] Creatinine [Mass/volume] in Serum or PlasmaOrdered By: Johnny Keen on 02-09-2024 Creatinine [Mass/Vol] 1.00 mg/dL Normal 0.60-1.20 [facility] Comment on above: Performed By: #### P T, PTT, BMP, CBC #### [facility] [address] [place] [address] [place] Dipstick and Microscopicon 0 02-09-2024 Bacteria,Urine 1+ High None Seen [facility] Comment on above: Order Comment: Name Collection Type:: Clean-Voided Midstream Performed By: #### C UU, ADDONUAPLUS #### [place] [address] [place] Bilirubin,Urine Negative Normal Negative [facility] Comment on above: Order Comment: Name Collection Type:: Clean-Voided Midstream Performed By: #### C UU, ADDONUAPLUS #### [place] [address] [place] Glucose Ql (U) Normal Normal Normal [facility] Comment on above: Order Comment: Name Collection Type:: Clean-Voided Midstream Performed By: #### C UU, ADDONUAPLUS #### [facility] [address] [place] [id number] [place] Hyaline Casts,Urine None Seen Normal 0-8 [facility] Comment on above: Order Comment: Name Collection Type:: Clean-Voided Midstream Performed By: #### C UU, ADDONUAPLUS #### [facility] [address] [place] [address] [place] Nitrite,Urine Negative Normal Negative [facility] Comment on above: Order Comment: Name Collection Type:: Clean-Voided Midstream Performed By: #### C UU, ADDONUAPLUS #### [address] Occult Blood,Urine 1+ High Negative [facility] Comment on above: Order Comment: Name Collection Type:: Clean-Voided Midstream Result Comment: PERF ORMED BY: [place] [address] PATHOLOGIST SHINGLER GLENYS BARRON M.D. Performed By: #### C UU, ADDONUAPLUS #### [address] Other Casts,Urine None Seen Normal None Seen [facility] Comment on above: Order Comment: Name Collection Type:: Clean-Voided Midstream Result Comment: PERF ORMED BY: [place] [address] PATHOLOGIST SHINGLER GLENYS BARRON M.D. Performed By: #### C UU, ADDONUAPLUS #### [place] [address] [place] Protein,Urine Negative Normal Negative [facility] Comment on above: Order Comment: Name Collection Type:: Clean-Voided Midstream Performed By: #### C UU, ADDONUAPLUS #### [place] [address] [place] RBC,Urine None Seen Normal 0-4 [facility] Comment on above: Order Comment: Name Collection Type:: Clean-Voided Midstream Performed By: #### C UU, ADDONUAPLUS #### [place] [address] [place] Specificy [place],Urine 1.014 Normal 1.001-1.03 0 [facility] Comment on above: Order Comment: Name Collection Type:: Clean-Voided Midstream Performed By: #### C UU, ADDONUAPLUS #### [place] [address] [place] Squamous Epithelial Cell,Urine 10-19 High 0-2 [facility] Comment on above: Order Comment: Name Collection Type:: Clean-Voided Midstream Performed By: #### C UU, ADDONUAPLUS #### [facility] [address] [place] [address] Urobilinogen,Urine Normal Normal Normal [facility] Comment on above: Order Comment: Name Collection Type:: Clean-Voided Midstream Performed By: #### C UU, ADDONUAPLUS #### [facility] [address] [place] [address] WBC,Urine 20-49 High 0-4 [facility] Comment on above: Order Comment: Name Collection Type:: Clean-Voided Midstream Performed By: #### C UU, ADDONUAPLUS #### [address] ECG 12 lead ECGon 02-09-2024 ECG 12 lead ECG [facility] [address] [place] [address] Electrocardiograph Report Signed Patient: Nicol Frances MR#: [id number] 94 : 1950 Acct:[id number] Age/Sex: 73 / F ADM Date: 02/09/24 Loc: ER Room: Type: [facility] ER Attending Dr: Ordering Provider: [...] was found Confirmed by Johnny Keen DO ([id number]) on 02/09/2024 3:32:04 PM Referred By: Electronically Signed By:Johnny Keen DO Transcribed By: MUS Signed By Johnny Keen DO 4 1532 Normal [facility] Erythrocyte distribution wid th [Ratio] by Automated countOrdered By: Johnny Keen on 02-09-2024 Erythrocyte distribution width (RBC) [Ratio] 14.1 % Normal 11.9-15.3 [facility] Comment on above: Performed By: #### P T, PTT, BMP, CBC #### [facility] [address] Erythrocytes [#/area] in Uri ne sediment by Automated countOrdered By: Johnny Keen on 02-09-2024 RBC Auto (Urine sed) [#/Area] None seen [HPF] 0-4 [facility] Erythrocytes [#/volume] in B lood by Automated countOrdered By: Johnny Keen on 02-09-2024 RBC (Bld) [#/Vol] 3.73 10*6/uL Normal 3.60-5.00 [facility] Comment on above: Performed By: #### P T, PTT, BMP, CBC #### [facility] [address] [place] [address] [place] Glucose [Mass/volume] in Ser um or PlasmaOrdered By: Johnny Keen on 02-09-2024 Glucose [Mass/Vol] 218 mg/dL High 70-100 [facility] Comment on above: ADA recommended refe rence rangeRandom Glucose Reference Range is dependent on time and content of last meal. Glucose of more than 200 mg/dL in a nonstressed, ambulatory subject supports the diagnosis of Diabetes Mellitus. Result Comment: [place] Glucose Reference Range is dependent on time and content of last meal. Glucose of more than 200 mg/dL in a nonstressed, ambulatory subject supports the diagnosis of Diabetes Mellitus. ADA recommended reference range Performed By: #### P T, PTT, BMP, CBC #### [facility] [address] [place] [address] [place] Glucose [Mass/volume] in Uri ne by Test stripOrdered By: Johnny Keen on 02-09-2024 Glucose Test strip (U) [Mass/Vol] Normal mg/dL Normal [facility] Hematocrit [Volume Fraction] of Blood by Automated countOrdered By: Johnny Keen on 02-09-2024 Hematocrit (Bld) [Volume fraction] 36.4 % Normal 34.0-46.4 [facility] Comment on above: Performed By: #### P T, PTT, BMP, CBC #### [facility] [address] Hemoglobin Test strip Ql (U) Ordered By: Johnny Keen on 02-09-2024 Hemoglobin Ql (U) 1+ High Negative [facility] Hemoglobin [Mass/volume] in BloodOrdered By: Johnny Keen on 02-09-2024 Hemoglobin (Bld) [Mass/Vol] 12.4 g/dL Normal 11.8-15.4 [facility] Comment on above: Performed By: #### P T, PTT, BMP, CBC #### [facility] [address] INR in Platelet poor plasma by Coagulation assayOrdered By: Johnny Keen on 02-09-2024 INR Coag (PPP) [Relative time] 1.8 {INR} Normal [facility] Comment on above: INR Therapeutic Rang [...] By: #### P T, PTT, BMP, CBC ####[facility] [id number] Ketones [Presence] in Urine by Test stripOrdered By: Johnny Keen on 02-09-2024 Ketones Ql (U) Negative Normal Negative [facility] Comment on above: Order Comment: Name Collection Type:: Clean-Voided Midstream Performed By: #### C CALLI HUNTERUAPLUS #### [facility] [address] [place] [address] Laboratory - UrinalysisOrder ed By: Johnny Keen on 02-09-2024 Hyaline casts LM Ql (Urine sed) None seen [LPF] 0-8 [facility] Leukocyte esterase [Presence ] in Urine by Test stripOrdered By: Johnny Keen on 02-09-2024 Leukocyte esterase Test strip Ql (U) 4+ High Negative [facility] Comment on above: Order Comment: Name Collection Type:: Clean-Voided Midstream Performed By: #### C UU, ADDONUAPLUS #### [facility] [address] [place] [address] Leukocytes [#/area] in Urine sediment by Automated countOrdered By: Johnny Keen on 02-09-2024 WBC Auto (Urine sed) [#/Area] 20-49 [HPF] High 0-4 [facility] Leukocytes [#/volume] correc darío for nucleated erythrocytes in Blood by Automated counOrdered By: Johnny Keen on 02-09-2024 WBC corrected for nucl RBC Auto (Bld) [#/Vol] 6.0 10*3/uL 3.8-11.6 [facility] Leukocytes [#/volume] in Blo od by Automated countOrdered By: Johnny Keen on 02-09-2024 WBC (Bld) [#/Vol] 6.0 10*3/uL Normal 3.8-11.6 [facility] Comment on above: Performed By: #### P T, PTT, BMP, CBC #### [facility] [address] [place] [address] Lymphocytes [#/volume] in Bl ood by Automated countOrdered By: Johnny Keen on 02-09-2024 Lymphocytes (Bld) [#/Vol] 1.1 10*3/uL Normal 1.00-4.8 [facility] Comment on above: Performed By: #### P T, PTT, BMP, CBC #### [facility] [address] [place] [address] [place] Lymphocytes/100 leukocytes i n Blood by Automated countOrdered By: Johnny Keen on 02-09-2024 Lymphocytes/100 WBC (Bld) 17.6 % Normal . [facility] Comment on above: Performed By: #### P T, PTT, BMP, CBC #### [facility] [address] [place] [address] MCH [Entitic mass] by Automa darío countOrdered By: Johnny Keen on 02-09-2024 MCH (RBC) [Entitic mass] 33.4 pg Normal 24.7-34.3 [facility] Comment on above: Performed By: #### P T, PTT, BMP, CBC #### [facility] [address] [place] [address] MCHC Auto (RBC) [Mass/Vol]Or dered By: Johnny Keen on 02-09-2024 MCHC (RBC) [Mass/Vol] 34.2 g/dL 32.0-35.0 [facility] MCV [Entitic volume] by Auto mated countOrdered By: Johnny Keen on 02-09-2024 MCV (RBC) [Entitic vol] 97.6 fL Normal 80-100 [facility] Comment on above: Performed By: #### P T, PTT, BMP, CBC #### [facility] [address] [place] [address] Monocyte distribution width [Entitic volume] in Blood by AutomatedOrdered By: Johnny Keen on 02-09-2024 Monocyte distribution width Auto (Bld) [Entitic vol] 17.76 % 0.00-20.00 [facility] Neutrophils [#/volume] in Bl ood by Automated countOrdered By: Johnny Keen on 02-09-2024 Neutrophils (Bld) [#/Vol] 4.4 10*3/uL Normal 1.8-7.7 [facility] Comment on above: Performed By: #### P T, PTT, BMP, CBC #### [facility] [address] [place] [address] Nitrite Test strip Ql (U)Ord ered By: Johnny Keen on 02-09-2024 Nitrite Ql (U) Negative Negative [facility] No Panel InformationOrdered By: Johnny Keen on 02-09-2024 Estimated GFR (CKD-EPI) 59.856 mL/Min [facility] Creatinine Clearance (Chem 48.37 [facility] Nucleated erythrocytes [Pres ence] in Blood by Automated countOrdered By: Johnny Keen on 02-09-2024 Nucleated RBC Auto Ql (Bld) 0.0 /100{WBC} 0-0.5 [facility] Partial Thromboplastin Timeo n 02-09-2024 aPTT Coag (Bld) [Time] 37.1 s High 25.1-36.5 [facility] Comment on above: Result Comment: A he matocrit value greater than 55% may lead to inaccurate results in coagulation testing. Patients having hematocrit values >55% require a special collection tube for coagulation studies. Please contact the laboratory at [phone] for redraw instructions. PERFORMED BY: [place] [address] PATHOLOGIST SHINGLER GLENYS BARRON M.D. Performed By: #### P T, PTT, BMP, CBC ####[facility] [address] [place] [address] [place] Platelet mean volume [Entiti c volume] in Blood by Automated countOrdered By: Johnny Keen on 02-09-2024 Platelet mean volume (Bld) [Entitic vol] 8.4 fL Normal 6.3-10.7 [facility] Comment on above: Performed By: #### P T, PTT, BMP, CBC #### [facility] [address] [place] [address] [place] Platelets [#/volume] in Bloo d by Automated countOrdered By: Johnny Keen on 02-09-2024 Platelets (Bld) [#/Vol] 178 10*3/uL Normal 150-450 [facility] Comment on above: Performed By: #### P T, PTT, BMP, CBC #### [facility] [address] [place] [address] [place] Potassium [Moles/volume] in Serum or PlasmaOrdered By: Johnny Keen on 02-09-2024 Potassium [Moles/Vol] 3.9 mmol/L Normal 3.5-5.1 [facility] Comment on above: Performed By: #### P T, PTT, BMP, CBC #### [facility] [address] Protein Test strip (U) [Mass /Vol]Ordered By: Johnny Keen on 02-09-2024 Protein (U) [Mass/Vol] Negative Negative [facility] Prothrombin time (PT)Ordered By: Johnny Keen on 02-09-2024 PT Coag (PPP) [Time] 20.6 s High 9.0-12.9 [facility] Comment on above: A hematocrit value g reater than 55% may lead to inaccurate results in coagulation testing. Patients having hematocrit values >55% require a special collection tube for coagulation studies. Please contact the laboratory at [phone] for redraw instructions. Result Comment: A he matocrit value greater than 55% may lead to inaccurate results in coagulation testing. Patients having hematocrit values >55% require a special collection tube for coagulation studies. Please contact the laboratory at [phone] for redraw instructions. Performed By: #### P T, PTT, BMP, CBC ####[facility] Serum or plasma anion gap de terminationOrdered By: Johnny Keen on 02-09-2024 Anion gap [Moles/Vol] 12.9 mmol/L Normal 6.0-15.0 [facility] Comment on above: Performed By: #### P T, PTT, BMP, CBC #### [facility] [address] [place] [address] Sodium [Moles/volume] in Ser um or PlasmaOrdered By: Johnny Keen on 02-09-2024 Sodium [Moles/Vol] 134 mmol/L Low 136-145 [facility] Comment on above: Performed By: #### P T, PTT, BMP, CBC #### [facility] [address] [place] [id number] [facility] Specific gravity Test strip (U) [Rel density]Ordered By: Johnny Keen on 02-09-2024 Specific gravity (U) [Rel density] 1.014 1.001-1.03 0 [facility] Urea nitrogen [Mass/volume] in Serum or PlasmaOrdered By: Johnny Keen on 02-09-2024 Urea nitrogen [Mass/Vol] 22 mg/dL Normal 7-25 [facility] Comment on above: Performed By: #### P T, PTT, BMP, CBC #### [facility] [address] [place] [address] Urine Cultureon 02-09-2024 Bacteria identified Cx Nom (U) >100,000 colonies/ml mixed bacterial skin contaminants 2 Days PERFORMED BY: [place] [address] PATHOLOGIST SHINGLER GLENYS BARRON M.D. Normal [facility] Comment on above: Performed By: #### C UU, ADDONUAPLUS #### [address] Urine appearanceOrdered By: Johnny Keen on 02-09-2024 Appearance (U) Cloudy Critically abnormal Clear [facility] Comment on above: Order Comment: Name Collection Type:: Clean-Voided Midstream Performed By: #### C UU, ADDONUAPLUS #### [address] Urine culture routineOrdered By: Johnny Keen on 02-09-2024 Bacteria identified Cx Nom (U) 2 Days [facility] Urobilinogen Test strip (U) [Mass/Vol]Ordered By: Johnny Keen on 02-09-2024 Urobilinogen (U) [Mass/Vol] Normal mg/dL Normal [facility] pH of Urine by Test stripOrd ered By: Johnny Keen on 02-09-2024 pH (U) 6.5 [pH] Normal 5.0-9.0 [facility] Comment on above: Order Comment: Name Collection Type:: Clean-Voided Midstream Performed By: #### C UU, ADDONUAPLUS #### [facility] [address] [place] [address] No Panel Informationon 01-19 Bedside INR (LAB) 2.5 [facility] No Panel Informationon 01-04 Bedside INR (LAB) 2.1 [facility] Capillary blood glucose flakita urement by glucometer (mass/volume)Ordered By: Sandy Clark on 12-28-2023 Glucose [Mass/Vol] 170 mg/dL Normal [facility] Comment on above: Random Glucose Refer ence Range is dependent on time and content of last meal. Glucose of more than 200 mg/dL in a nonstressed, ambulatory subject supports the diagnosis of Diabetes Mellitus. Result Comment: [place] [facility] Glucose Reference Range is dependent on [...] on above: Result Comment: PERF ORMED BY: [facility] [address] [place] [address] PATHOLOGIST SHINGLER GLENYS BARRON M.D. Performed By: #### G LULS #### Point of Care testing , INR in Platelet poor plasma by Coagulation assayOrdered By: Sandy Clark on 12-28-2023 INR Coag (PPP) [Relative time] 1.0 {INR} Normal [facility] Comment on above: INR Therapeutic Rang [...] heart valves: 3 - 4.5 PERFORMED BY: [place] [address] PATHOLOGIST SHINGLER GLENYS BARRON M.D. Performed By: #### P T #### [place] [id number] [place] Jimbo 12-28-2023 L Specimen: [id number] Received: 12/28/23 Status: TIERRA Russell Num: [id number] Spec Type: Surgical Subm Dr: Sandy Clark DO Tissues: A Colon Biopsy (RT COLON) B Colon Biopsy (TRANSV BX) C Colon Biopsy (LT COLON BX) Procedures: HE/6, Gross/Micro L4/3 Age/ Patient Sex Location Account Attending Physician Nicol Frances 73/F [id number] Sandy Clark DO SPEC NUM: [id number] RECD: 12/28/23 STATUS: TIERRA RUSSELL NUM: [id number] ROQUE: 12/28/23 DR: Sandy Clark DO ENTERED: 12/28/[address] [facility] [address]: SPEC TYPE: Surgical DEPT: S ORDERED: [...] in C1. Clinical history: Ulcerative colitis Specimen: [id number] Received: 12/28/23 Status: TIERRA Russell Num: [id number] Spec Type: Surgical Subm Dr: Sandy Clark DO Tissues: A Colon Biopsy (RT COLON) B Colon Biopsy (TRANSV BX) C Colon Biopsy (LT COLON BX) Procedures: HE/6, Omar/Rupert L4/3 Patient: Nicol Frances [id number] (Continued) Specimen: [id number] Received: 12/28/23 (Continued) Signed (signature on file) Ac Beaulieu MD 12/29/23 1414 Specimen: [id number] Received: 12/28/23 Status: TIERRA Russell Num: [id number] Spec Type: Surgical Subm Dr: Sandy Clark DO Tissues: A Colon Biopsy (RT COLON) B Colon Biopsy (TRANSV BX) C Colon Biopsy (LT COLON BX) Procedures: HE/6, Gross/Micro L4/3 Patient: Nicol Frances [id number] (Continued) Specimen: [id number] Received: 12/28/23 (Continued) CPT Codes 99743b7 Specimen: [id number] Received: 12/28/23 Status: TIERRA Russell Num: [id number] Spec Type: Surgical Subm Dr: Sandy Clark, Tissues: A Colon Biopsy (RT COLON) B Colon Biopsy (TRANSV BX) C Colon Biopsy (LT COLON BX) Procedures: HE/6, Gross/Micro L4/3 Patient: Nicol Frances [place] [id number] (Continued) Signed (signature on file) Ac Beaulieu MD 12/29/23 1414 Normal [facility] No Panel InformationOrdered By: Sandy Clark on 12-28-2023 Bedside Glucose Comment Glu2: cleaned meter [facility] Prothrombin time (PT)Ordered By: Sandy Clark on 12-28-2023 PT Coag (PPP) [Time] 12.1 s Normal 9.0-12.9 [facility] Comment on above: A hematocrit value g reater than 55% may lead to inaccurate results in coagulation testing. Patients having hematocrit values >55% require a special collection tube for coagulation studies. Please contact the laboratory at [phone] for redraw instructions. Result Comment: A he matocrit value greater than 55% may lead to inaccurate results in coagulation testing. Patients having hematocrit values >55% require a special collection tube for coagulation studies. Please contact the laboratory at [phone] for redraw instructions. Performed By: #### P T #### [address] No Panel Informationon 12-13 Bedside INR (LAB) 2.0 [facility] No Panel Informationon 11-08 Bedside INR (LAB) 2.2 [facility] Prothrombin Time INRon 10-05 INR Coag (PPP) [Relative time] 2.6 {INR} [facility] Other Prothrombin Time INR [facility] [employer] Other Prothrombin Time INRon 09-07 INR Coag (PPP) [Relative time] 2.6 {INR} [facility] Other [facility] [employer] Other Prothrombin Time INRon 08-11 INR Coag (PPP) [Relative time] 2.4 {INR} [facility] Other [facility] [employer] Other Prothrombin Time INRon 07-14 INR Coag (PPP) [Relative time] 2.4 {INR} [facility] Other [facility]rombin [facility] [employer] Other Prothrombin Time INRon 06-15 INR Coag (PPP) [Relative time] 2.8 {INR} [facility] Other [facility]thrombin [facility] [employer] Other Prothrombin Time INRon 04-30 INR Coag (PPP) [Relative time] 2.6 {INR} [facility] Other [facility]rombin [facility] [employer] Other Prothrombin Time INRon 04-08 INR Coag (PPP) [Relative time] 3.1 {INR} [facility] Other Prothrombin Time INR [place] [employer] Other Prothrombin Time INRon 03-23 INR Coag (PPP) [Relative time] 2.3 {INR} [facility] [employer] Other [facility] [employer] Other Prothrombin Time INRon 03-11 INR Coag (PPP) [Relative time] 3.2 {INR} [facility] [employer] Other [facility] [employer] Other Prothrombin Time INRon 02-23 INR Coag (PPP) [Relative time] 3.4 {INR} [facility] Other Prothrombin Time INR [place] [employer] Other Laboratory - CoagulationOrde red By: Gabriel Castaneda on 12-17-2022 PT Coag (PPP) [Time] 21.0 s 9.0-12.9 [facility] Platelet poor plasma interna tional normalized ratio (INR) by coagulation assay (relatOrdered By: Gabriel Castaneda on 12-17-2022 INR Coag (PPP) [Relative time] 1.8 {INR} [facility] Comment on above: INR Therapeutic Rang [...] Castaneda on 12-15-2022 Glucose [Mass/Vol] 223 mg/dL [facility] Comment on above: Random Glucose Refer ence Range is dependent on time and content of last meal. Glucose of more than 200 mg/dL in a nonstressed, ambulatory subject supports the diagnosis of Diabetes Mellitus. Laboratory - CoagulationOrde red By: Rosalina Shelton on 12-15-2022 PT Coag (PPP) [Time] 15.7 s 9.0-12.9 [facility] No Panel InformationOrdered By: Gabriel Castaneda on 12-15-2022 Bedside Glucose Comment Glu2: cleaned meter [facility] Platelet poor plasma interna tional normalized ratio (INR) by coagulation assay (relatOrdered By: Rosalina Shelton on 12-15-2022 INR Coag (PPP) [Relative time] 1.4 {INR} [facility] Comment on above: INR Therapeutic Rang [...] 12-14-2022 Basophils (Bld) [#/Vol] 0.0 10*3/uL 0.0-0.2 [facility] Basophils/100 WBC Auto (Bld) Ordered By: Rosalina Shelton on 12-14-2022 Basophils/100 WBC (Bld) 1.0 % . [facility] Calcium [Mass/volume] in Ser um or PlasmaOrdered By: Rosalina Shelton on 12-14-2022 Calcium [Mass/Vol] 8.1 mg/dL 8.6-10.3 [facility] Carbon dioxide, total [Moles /volume] in Serum or PlasmaOrdered By: Rosalina Shelton on 12-14-2022 CO2 [Moles/Vol] 24.8 mmol/L 21.0-31.0 [facility] Chloride [Moles/volume] in S remi or PlasmaOrdered By: Rosalina Shelton on 12-14-2022 Chloride [Moles/Vol] 105 mmol/L 98-107 [facility] Creatinine [Mass/volume] in Serum or PlasmaOrdered By: Rosalina Shelton on 12-14-2022 Creatinine [Mass/Vol] 0.98 mg/dL 0.60-1.20 [facility] Eosinophils Auto (Bld) [#/Vo l]Ordered By: Rosalina Shelton on 12-14-2022 Eosinophils (Bld) [#/Vol] 0.1 10*3/uL 0.0-0.45 [facility] Eosinophils/100 WBC Auto (Bl d)Ordered By: Rosalina Shelton on 12-14-2022 Eosinophils/100 WBC (Bld) 2.0 % . [facility] Erythrocyte distribution wid th Auto (RBC) [Ratio]Ordered By: Rosalina Shelton on 12-14-2022 Erythrocyte distribution width (RBC) [Ratio] 14.3 % 11.9-15.3 [facility] Glucose [Mass/volume] in Ser um or PlasmaOrdered By: Rosalina Shelton on 12-14-2022 Glucose [Mass/Vol] 149 mg/dL 70-100 [facility] Comment on above: ADA recommended refe rence rangeRandom Glucose Reference Range is dependent on time and content of last meal. Glucose of more than 200 mg/dL in a nonstressed, ambulatory subject supports the diagnosis of Diabetes Mellitus. Hematocrit Auto (Bld) [Volum e fraction]Ordered By: Rosalina Shelton on 12-14-2022 Hematocrit (Bld) [Volume fraction] 36.1 % 34.0-46.4 [facility] Hemoglobin [Mass/volume] in BloodOrdered By: Rosalina Shelton on 12-14-2022 Hemoglobin (Bld) [Mass/Vol] 12.1 g/dL 11.8-15.4 [facility] Leukocytes [#/volume] correc darío for nucleated erythrocytes in Blood by Automated counOrdered By: Rosalina Shelton on 12-14-2022 WBC corrected for nucl RBC Auto (Bld) [#/Vol] 4.4 10*3/uL 3.8-11.6 [facility] Lymphocytes Auto (Bld) [#/Vo l]Ordered By: Rosalina Shelton on 12-14-2022 Lymphocytes (Bld) [#/Vol] 1.3 10*3/uL 1.00-4.8 [facility] Lymphocytes/100 WBC Auto (Bl d)Ordered By: Rosalina Shelton on 12-14-2022 Lymphocytes/100 WBC (Bld) 28.6 % . [facility] MCH Auto (RBC) [Entitic mass ]Ordered By: Rosalina Shelton on 12-14-2022 MCH (RBC) [Entitic mass] 32.2 pg 24.7-34.3 [facility] MCHC Auto (RBC) [Mass/Vol]Or dered By: Rosalina Shelton on 12-14-2022 MCHC (RBC) [Mass/Vol] 33.4 g/dL 32.0-35.0 [facility] MCV Auto (RBC) [Entitic vol] Ordered By: Rosalina Shelton on 12-14-2022 MCV (RBC) [Entitic vol] 96.3 fL 80-100 [facility] Monocytes Auto (Bld) [#/Vol] Ordered By: Rosalina Shelton on 12-14-2022 Monocytes (Bld) [#/Vol] 0.5 10*3/uL 0.0-0.8 [facility] Monocytes/100 WBC Auto (Bld) Ordered By: Rosalina Shelton on 12-14-2022 Monocytes/100 WBC (Bld) 11.6 % . [facility] Neutrophils Auto (Bld) [#/Vo l]Ordered By: Rosalina Shelton on 12-14-2022 Neutrophils (Bld) [#/Vol] 2.5 10*3/uL 1.8-7.7 [facility] Neutrophils/100 WBC Auto (Bl d)Ordered By: Rosalina Shelton on 12-14-2022 Neutrophils/100 WBC (Bld) 56.8 % . [facility] No Panel InformationOrdered By: Rosalina Shelton on 12-14-2022 Estimated GFR (CKD-EPI) > 60.0 mL/Min [facility] Creatinine Clearance (Chem 54.33 [facility] Nucleated erythrocytes [Pres ence] in Blood by Automated countOrdered By: Rosalina Shelton on 12-14-2022 Nucleated RBC Auto Ql (Bld) 0.1 /100{WBC} 0-0.5 [facility] Platelet mean volume Auto (B ld) [Entitic vol]Ordered By: Rosalina Shelton on 12-14-2022 Platelet mean volume (Bld) [Entitic vol] 8.3 fL 6.3-10.7 [facility] Platelets Auto (Bld) [#/Vol] Ordered By: Rosalina Shelton on 12-14-2022 Platelets (Bld) [#/Vol] 197 10*3/uL 150-450 [facility] Potassium [Moles/volume] in Serum or PlasmaOrdered By: Rosalina Shelton on 12-14-2022 Potassium [Moles/Vol] 4.1 mmol/L 3.5-5.1 [facility] RBC Auto (Bld) [#/Vol]Ordere d By: Rosalina Shelton on 12-14-2022 RBC (Bld) [#/Vol] 3.75 10*6/uL 3.60-5.00 [facility] Serum or plasma anion gap de terminationOrdered By: Rosalina Shelton on 12-14-2022 Anion gap [Moles/Vol] TNP [facility] Comment on above: Test not performed Sodium [Moles/volume] in Ser um or PlasmaOrdered By: Rosalina Shelton on 12-14-2022 Sodium [Moles/Vol] 135 mmol/L 136-145 [facility] Comment on above: Hemolysis is present at a level that could interfere with the result. Troponin I.cardiac [Mass/vol ume] in Serum or Plasma by Detection limit <= 0.01 ng/Ordered By: Rosalina Shelton on 12-14-2022 Troponin I.cardiac DL <= 0.01 ng/mL [Mass/Vol] 6.3 pg/mL 0.0-15.0 [facility] Urea nitrogen [Mass/volume] in Serum or PlasmaOrdered By: Rosalina Shelton on 12-14-2022 Urea nitrogen [Mass/Vol] 13 mg/dL 7-25 [facility] WBC Auto (Bld) [#/Vol]Ordere d By: Rosalina Shelton on 12-14-2022 WBC (Bld) [#/Vol] 4.4 10*3/uL 3.8-11.6 [facility] Activated partial thrombopla stin time (aPTT) in platelet poor plasma by coagulation aOrdered By: Celio Lobo on 12-13-2022 aPTT Coag (PPP) [Time] 38.0 s 25.1-36.5 [facility] Alanine aminotransferase [En zymatic activity/volume] in Serum or PlasmaOrdered By: Celio Lobo on 12-13-2022 ALT [Catalytic activity/Vol] 14 U/L 7-52 [facility] Albumin [Mass/volume] in Ser um or Plasma by Bromocresol green (BCG) dye binding methoOrdered By: Celio Lobo on 12-13-2022 Albumin BCG dye [Mass/Vol] 3.8 g/dL 3.5-5.7 [facility] Alkaline phosphatase [Enzyma tic activity/volume] in Serum or PlasmaOrdered By: Celio Lobo on 12-13-2022 ALP [Catalytic activity/Vol] 51 U/L 34-104 [facility] Aspartate aminotransferase [ Enzymatic activity/volume] in Serum or PlasmaOrdered By: Celio Lobo 12-13-2022 AST [Catalytic activity/Vol] 18 U/L 13-39 [facility] Basophils Auto (Bld) [#/Vol] Ordered By: Celio Lobo 12-13-2022 Basophils (Bld) [#/Vol] 0.0 10*3/uL 0.0-0.2 [facility] Basophils/100 WBC Auto (Bld) Ordered By: Celio Lobo on 12-13-2022 Basophils/100 WBC (Bld) 1.0 % . [facility] Bilirubin Test strip Ql (U)O rdered By: Celio Lobo on 12-13-2022 Bilirubin Ql (U) Negative Negative [facility] Bilirubin.total [Mass/volume ] in Serum or PlasmaOrdered By: Celio Lobo 12-13-2022 Bilirubin [Mass/Vol] 0.3 mg/dL 0.3-1.0 [facility] Calcium [Mass/volume] in Ser um or PlasmaOrdered By: Celio Lobo 12-13-2022 Calcium [Mass/Vol] 8.5 mg/dL 8.6-10.3 [facility] Carbon dioxide, total [Moles /volume] in Serum or PlasmaOrdered By: Celio Lobo on 12-13-2022 CO2 [Moles/Vol] 23.2 mmol/L 21.0-31.0 [facility] Chloride [Moles/volume] in S remi or PlasmaOrdered By: Celio Lobo on 12-13-2022 Chloride [Moles/Vol] 106 mmol/L 98-107 [facility] Color Auto (U)Ordered By: Perez Lobo on 12-13-2022 Color (U) Yellow Yellow [facility] Creatinine [Mass/volume] in Serum or PlasmaOrdered By: Celio Lobo on 12-13-2022 Creatinine [Mass/Vol] 1.06 mg/dL 0.60-1.20 [facility] Eosinophils Auto (Bld) [#/Vo l]Ordered By: Celio Lobo on 12-13-2022 Eosinophils (Bld) [#/Vol] 0.1 10*3/uL 0.0-0.45 [facility] Eosinophils/100 WBC Auto (Bl d)Ordered By: Celio Lobo on 12-13-2022 Eosinophils/100 WBC (Bld) 1.2 % . [facility] Erythrocyte distribution wid th Auto (RBC) [Ratio]Ordered By: Celio Lobo on 12-13-2022 Erythrocyte distribution width (RBC) [Ratio] 14.6 % 11.9-15.3 [facility] Globulin Calc (S) [Mass/Vol] Ordered By: Celio Lobo on 12-13-2022 Globulin (S) [Mass/Vol] 2.8 g/dL [facility] Glucose Glucometer (BldC) [M ass/Vol]Ordered By: Celio Lobo on 12-13-2022 Glucose [Mass/Vol] 96 mg/dL [facility] Comment on above: Random Glucose Refer ence Range is dependent on time and content of last meal. Glucose of more than 200 mg/dL in a nonstressed, ambulatory subject supports the diagnosis of Diabetes Mellitus. Glucose [Mass/volume] in Ser um or PlasmaOrdered By: Celio Lobo on 12-13-2022 Glucose [Mass/Vol] 152 mg/dL 70-100 [facility] Comment on above: ADA recommended refe rence rangeRandom Glucose Reference Range is dependent on time and content of last meal. Glucose of more than 200 mg/dL in a nonstressed, ambulatory subject supports the diagnosis of Diabetes Mellitus. Hematocrit Auto (Bld) [Volum e fraction]Ordered By: Celio Lobo on 12-13-2022 Hematocrit (Bld) [Volume fraction] 37.8 % 34.0-46.4 [facility] Hemoglobin [Mass/volume] in BloodOrdered By: Celio Lobo on 12-13-2022 Hemoglobin (Bld) [Mass/Vol] 12.5 g/dL 11.8-15.4 [facility] Ketones Auto test strip (U) [Mass/Vol]Ordered By: Celio Lobo on 12-13-2022 Ketones (U) [Mass/Vol] Negative Negative Fi [facility] Laboratory - CoagulationOrde red By: Celio Lobo on 12-13-2022 PT Coag (PPP) [Time] 23.1 s 9.0-12.9 [facility] Leukocytes [#/volume] correc darío for nucleated erythrocytes in Blood by Automated counOrdered By: Celio Lobo on 12-13-2022 WBC corrected for nucl RBC Auto (Bld) [#/Vol] 4.9 10*3/uL 3.8-11.6 [facility] Lymphocytes Auto (Bld) [#/Vo l]Ordered By: Celio Lobo on 12-13-2022 Lymphocytes (Bld) [#/Vol] 1.5 10*3/uL 1.00-4.8 [facility] Lymphocytes/100 WBC Auto (Bl d)Ordered By: Celio Lobo on 12-13-2022 Lymphocytes/100 WBC (Bld) 29.8 % . [facility] MCH Auto (RBC) [Entitic mass ]Ordered By: Celio Lobo on 12-13-2022 MCH (RBC) [Entitic mass] 31.8 pg 24.7-34.3 [facility] MCHC Auto (RBC) [Mass/Vol]Or dered By: Celio Lobo on 12-13-2022 MCHC (RBC) [Mass/Vol] 33.1 g/dL 32.0-35.0 [facility] MCV Auto (RBC) [Entitic vol] Ordered By: Celio Lobo on 12-13-2022 MCV (RBC) [Entitic vol] 96.0 fL 80-100 [facility] Magnesium [Mass/volume] in S remi or PlasmaOrdered By: Rosalina Shelton on 12-13-2022 Magnesium [Mass/Vol] 1.9 mg/dL 1.9-2.7 [facility] Magnesium [Mass/volume] in S remi or PlasmaOrdered By: Celio Lobo on 12-13-2022 Magnesium [Mass/Vol] 2.0 mg/dL 1.9-2.7 [facility] Monocyte distribution width [Entitic volume] in Blood by AutomatedOrdered By: Celio Lobo on 12-13-2022 Monocyte distribution width Auto (Bld) [Entitic vol] 18.43 % 0.00-20.00 [facility] Monocytes Auto (Bld) [#/Vol] Ordered By: Celio Lobo on 12-13-2022 Monocytes (Bld) [#/Vol] 0.5 10*3/uL 0.0-0.8 [facility] Monocytes/100 WBC Auto (Bld) Ordered By: Celio Lobo on 12-13-2022 Monocytes/100 WBC (Bld) 9.9 % . [facility] Natriuretic peptide B [Mass/ Vol]Ordered By: Celio Lobo on 12-13-2022 Natriuretic peptide B (Bld) [Mass/Vol] 105.0 pg/mL 5-100 [facility] Neutrophils Auto (Bld) [#/Vo l]Ordered By: Celio Lobo on 12-13-2022 Neutrophils (Bld) [#/Vol] 2.8 10*3/uL 1.8-7.7 [facility] Neutrophils/100 WBC Auto (Bl d)Ordered By: Celio Lobo on 12-13-2022 Neutrophils/100 WBC (Bld) 58.1 % . [facility] Nitrite Test strip Ql (U)Ord ered By: Celio Lobo on 12-13-2022 Nitrite Ql (U) Negative Negative [facility] No Panel InformationOrdered By: Celio Lobo on 12-13-2022 Bedside Glucose #2 Comment Cleaned meter [facility] Bedside Glucose Comment See comment [facility] Comment on above: Glu2: WILL NOTIFY DR /RN Estimated GFR (CKD-EPI) 56.163 mL/Min [facility] Creatinine Clearance (Chem 51.30 [facility] No Panel InformationOrdered By: Rosalina Shelton on 12-13-2022 D-Dimer Quantitative (PE/DVT) < 200 ng/mL 0-243 [facility] Comment on above: The reference range [...] RBC Auto Ql (Bld) 0.0 /100{WBC} 0-0.5 [facility] Platelet mean volume Auto (B ld) [Entitic vol]Ordered By: Celio Lobo on 12-13-2022 Platelet mean volume (Bld) [Entitic vol] 8.4 fL 6.3-10.7 [facility] Platelet poor plasma interna tional normalized ratio (INR) by coagulation assay (relatOrdered By: Celio Lobo on 12-13-2022 INR Coag (PPP) [Relative time] 2.0 {INR} [facility] Comment on above: INR Therapeutic Rang [...] 12-13-2022 Platelets (Bld) [#/Vol] 221 10*3/uL 150-450 [facility] Potassium [Moles/volume] in Serum or PlasmaOrdered By: Celio Lobo on 12-13-2022 Potassium [Moles/Vol] 4.0 mmol/L 3.5-5.1 [facility] Protein Auto test strip (U) [Mass/Vol]Ordered By: Celio Lobo on 12-13-2022 Protein (U) [Mass/Vol] Negative Negative [facility] Protein [Mass/volume] in Ser um or PlasmaOrdered By: Celio Lobo on 12-13-2022 Protein [Mass/Vol] 6.6 g/dL 6.4-8.9 [facility] RBC Auto (Bld) [#/Vol]Ordere d By: Celio Lobo on 12-13-2022 RBC (Bld) [#/Vol] 3.94 10*6/uL 3.60-5.00 [facility] Serum or plasma albumin/glob ulin mass ratioOrdered By: Celio Lobo on 12-13-2022 Albumin/Globulin [Mass ratio] 1.4 {ratio} [facility] Serum or plasma anion gap de terminationOrdered By: Celio Lobo on 12-13-2022 Anion gap [Moles/Vol] 11.8 mmol/L 6.0-15.0 [facility] Sodium [Moles/volume] in Ser um or PlasmaOrdered By: Celio Lobo on 12-13-2022 Sodium [Moles/Vol] 137 mmol/L 136-145 [facility] Specific gravity Auto test s trip (U) [Rel density]Ordered By: Celio Lobo on 12-13-2022 Specific gravity (U) [Rel density] 1.006 1.001-1.03 0 [facility] Thyrotropin [Units/volume] i n Serum or PlasmaOrdered By: Rosalina Shelton on 12-13-2022 TSH Qn 4.39 m[IU]/L 0.45-5.33 [facility] Troponin I.cardiac [Mass/vol ume] in Serum or Plasma by Detection limit <= 0.01 ng/Ordered By: Celio Lobo on 12-13-2022 Troponin I.cardiac DL <= 0.01 ng/mL [Mass/Vol] 6.4 pg/mL 0.0-15.0 [facility] Urea nitrogen [Mass/volume] in Serum or PlasmaOrdered By: Celio Lobo on 12-13-2022 Urea nitrogen [Mass/Vol] 15 mg/dL 7-25 [facility] Urine clarity by refractomet ry automatedOrdered By: Celio Lobo on 12-13-2022 Clarity Refractometry automated (U) Clear Clear [facility] Urine glucose measurement by automated test strip (mass/volume)Ordered By: Celio Lobo on 12-13-2022 Glucose Auto test strip (U) [Mass/Vol] Normal mg/dL Normal [facility] Urine hemoglobin detection b y automated test stripOrdered By: Celio Lobo on 12-13-2022 Hemoglobin Auto test strip Ql (U) Negative Negative [facility] Urine leukocyte esterase det ection by automated test stripOrdered By: Celio Lobo on 12-13-2022 Leukocyte esterase Auto test strip Ql (U) Negative Negative [facility] Urobilinogen Auto test strip (U) [Mass/Vol]Ordered By: Celio Lobo on 12-13-2022 Urobilinogen (U) [Mass/Vol] Normal mg/dL Normal [facility] WBC Auto (Bld) [#/Vol]Ordere d By: Celio Lobo on 12-13-2022 WBC (Bld) [#/Vol] 4.9 10*3/uL 3.8-11.6 [facility] pH Auto test strip (U)Ordere d By: Celio Lobo on 12-13-2022 pH (U) 8.0 [pH] 5.0-9.0 [facility] Prothrombin Time INRon 12-10 INR Coag (PPP) [Relative time] 2.5 {INR} [facility] Other Prothrombin Time INR [facility] [employer] Other Prothrombin Time INRon 11-12 INR Coag (PPP) [Relative time] 2.7 {INR} [place] [employer] Other Prothrombin Time INR [facility] [employer] Other Prothrombin Time INRon 10-15 INR Coag (PPP) [Relative time] 2.7 {INR} [facility] Other Prothrombin Time INR [facility] [employer] Other Automated erythrocytes count in urine sediment (number/area)Ordered By: Edmond Branham on 09-23-2022 RBC Auto (Urine sed) [#/Area] 1-2 [HPF] 0-4 [facility] Automated leukocytes count i n urine sediment (number/area)Ordered By: Edmond Branham on 09-23-2022 WBC Auto (Urine sed) [#/Area] 5-9 [HPF] 0-4 [facility] Basophils Auto (Bld) [#/Vol] Ordered By: Edmond Branham on 09-23-2022 Basophils (Bld) [#/Vol] 0.1 10*3/uL 0.0-0.2 [facility] Basophils/100 WBC Auto (Bld) Ordered By: Edmond Branham on 09-23-2022 Basophils/100 WBC (Bld) 1.1 % . [facility] Bilirubin Test strip Ql (U)O rdered By: Edmond Branham on 09-23-2022 Bilirubin Ql (U) Negative Negative [facility] Body fluid albumin measureme nt (mass/volume)Ordered By: Edmond Branham on 09-23-2022 Albumin (Body fld) [Mass/Vol] 3.7 g/dL 3.2-5.5 [facility] Color Auto (U)Ordered By: Kailey Branham on 09-23-2022 Color (U) Dark yellow Yellow [facility] Creatinine and Glomerular fi ltration rate.predicted panel (S/P/Bld)Ordered By: Edmond Branham on 09-23-2022 Creatinine [Mass/Vol] 1.15 mg/dL 0.44-1.03 [facility] Eosinophils Auto (Bld) [#/Vo l]Ordered By: Edmond Branham on 09-23-2022 Eosinophils (Bld) [#/Vol] 0.1 10*3/uL 0.0-0.45 [facility] Eosinophils/100 WBC Auto (Bl d)Ordered By: Edmond Branham on 09-23-2022 Eosinophils/100 WBC (Bld) 1.7 % . [facility] Erythrocyte distribution wid th Auto (RBC) [Ratio]Ordered By: Edmond Branham on 09-23-2022 Erythrocyte distribution width (RBC) [Ratio] 15.0 % 11.9-15.3 [facility] Estimated glomerular filtrat ion rate (GFR) non- AmericanOrdered By: Edmond Branham on 09-23-2022 GFR/1.73 sq M.predicted among non-blacks MDRD (S/P/Bld) [Vol rate/Area] 47 mL/Min [facility] Globulin Calc (S) [Mass/Vol] Ordered By: Edmond Branham on 09-23-2022 Globulin (S) [Mass/Vol] 2.9 g/dL [facility] Glucose Glucometer (BldC) [M ass/Vol]Ordered By: Edmond Branham on 09-23-2022 Glucose [Mass/Vol] 108 mg/dL [facility] Comment on above: Random Glucose Refer ence Range is dependent on time and content of last meal. Glucose of more than 200 mg/dL in a nonstressed, ambulatory subject supports the diagnosis of Diabetes Mellitus. Hematocrit Auto (Bld) [Volum e fraction]Ordered By: Edmond Branham on 09-23-2022 Hematocrit (Bld) [Volume fraction] 39.1 % 34.0-46.4 [facility] Hemoglobin [Mass/volume] in BloodOrdered By: Edmond Branham on 09-23-2022 Hemoglobin (Bld) [Mass/Vol] 13.3 g/dL 11.8-15.4 [facility] Ketones Auto test strip (U) [Mass/Vol]Ordered By: Edmond Branham on 09-23-2022 Ketones (U) [Mass/Vol] Negative [facility] - UrinalysisOrder ed By: Edmond Branham on 09-23-2022 Hyaline casts LM Ql (Urine sed) 0-8 [LPF] 0-8 [facility] Leukocytes [#/volume] correc darío for nucleated erythrocytes in Blood by Automated counOrdered By: Edmond Branham on 09-23-2022 WBC corrected for nucl RBC Auto (Bld) [#/Vol] 5.2 10*3/uL 3.8-11.6 [facility] Lymphocytes Auto (Bld) [#/Vo l]Ordered By: Edmond Branham on 09-23-2022 Lymphocytes (Bld) [#/Vol] 1.6 10*3/uL 1.00-4.8 [facility] Lymphocytes/100 WBC Auto (Bl d)Ordered By: Edmond Branham on 09-23-2022 Lymphocytes/100 WBC (Bld) 31.1 % . [facility] MCH Auto (RBC) [Entitic mass ]Ordered By: Edmond Branham on 09-23-2022 MCH (RBC) [Entitic mass] 32.3 pg 24.7-34.3 [facility] MCHC Auto (RBC) [Mass/Vol]Or dered By: Edmond Branham on 09-23-2022 MCHC (RBC) [Mass/Vol] 34.0 g/dL 32.0-35.0 [facility] MCV Auto (RBC) [Entitic vol] Ordered By: Edmond Branham on 09-23-2022 MCV (RBC) [Entitic vol] 95.2 fL 80-100 [facility] Monocyte distribution width [Entitic volume] in Blood by AutomatedOrdered By: Edmond Branham on 09-23-2022 Monocyte distribution width Auto (Bld) [Entitic vol] 19.36 % 0.00-20.00 [facility] Monocytes Auto (Bld) [#/Vol] Ordered By: Edmond Branham on 09-23-2022 Monocytes (Bld) [#/Vol] 0.5 10*3/uL 0.0-0.8 [facility] Monocytes/100 WBC Auto (Bld) Ordered By: Edmond Branham on 09-23-2022 Monocytes/100 WBC (Bld) 10.2 % . [facility] Neutrophils Auto (Bld) [#/Vo l]Ordered By: Edmond Branham on 09-23-2022 Neutrophils (Bld) [#/Vol] 2.9 10*3/uL 1.8-7.7 [facility] Neutrophils/100 WBC Auto (Bl d)Ordered By: Edmond Branham on 09-23-2022 Neutrophils/100 WBC (Bld) 55.9 % . [facility] Nitrite Test strip Ql (U)Ord ered By: Edmond Branham on 09-23-2022 Nitrite Ql (U) Negative Negative [facility] No Panel InformationOrdered By: Edmond Branham on 09-23-2022 Estimated GFR () 56 mL/Min [facility] Comment on above: GFR estimated refere nce range: According to KDOQI guidelines, <60 ml/min/1.73m2 is sufficient to diagnose a patient with chronic kidney disease. Pharmacy Creatinine Clearance (Chem 46.55 [facility] Nucleated erythrocytes [Pres ence] in Blood by Automated countOrdered By: Edmond Branham on 09-23-2022 Nucleated RBC Auto Ql (Bld) 0.1 /100{WBC} 0-0.5 [facility] Platelet mean volume Auto (B ld) [Entitic vol]Ordered By: Edmond Branham on 09-23-2022 Platelet mean volume (Bld) [Entitic vol] 8.1 fL 6.3-10.7 [facility] Platelets Auto (Bld) [#/Vol] Ordered By: Edmond Branham on 09-23-2022 Platelets (Bld) [#/Vol] 183 10*3/uL 150-450 [facility] Protein Auto test strip (U) [Mass/Vol]Ordered By: Edmond Branham on 09-23-2022 Protein (U) [Mass/Vol] Negative Negative [facility] Protein [Mass/volume] in Ser um or PlasmaOrdered By: Edmond Branham on 09-23-2022 Protein [Mass/Vol] 6.6 g/dL 6.1-7.9 [facility] RBC Auto (Bld) [#/Vol]Ordere d By: Edmond Branham on 09-23-2022 RBC (Bld) [#/Vol] 4.10 10*6/uL 3.60-5.00 [facility] Serum or plasma alanine lugo otransferase measurement without P-5'-P (enzymatic activiOrdered By: Edmond Branham on 09-23-2022 ALT No additional P-5'-P [Catalytic activity/Vol] 15 U/L 10-60 [facility] Serum or plasma albumin/glob ulin mass ratioOrdered By: Edmond Branham on 09-23-2022 Albumin/Globulin [Mass ratio] 1.3 {ratio} [facility] Serum or plasma alkaline elijah sphatase measurement (enzymatic activity/volume)Ordered By: Edmond Branham on 09-23-2022 ALP [Catalytic activity/Vol] 57 U/L 32-92 [facility] Serum or plasma anion gap de terminationOrdered By: Edmond Branham on 09-23-2022 Anion gap [Moles/Vol] 15.9 mmol/L 6.0-15.0 [facility] Serum or plasma aspartate am inotransferase measurement (enzymatic activity/volume)Ordered By: Edmond Branham on 09-23-2022 AST [Catalytic activity/Vol] 20 U/L 10-42 [facility] Serum or plasma calcium flakita urement (mass/volume)Ordered By: Edmond Branham on 09-23-2022 Calcium [Mass/Vol] 9.3 mg/dL 8.2-10.2 [facility] Serum or plasma chloride patrice surement (moles/volume)Ordered By: Edmond Branham on 09-23-2022 Chloride [Moles/Vol] 103 mmol/L 95-114 [facility] Serum or plasma glucose flakita urement (mass/volume)Ordered By: Edmond Branham on 09-23-2022 Glucose [Mass/Vol] 103 mg/dL 70-100 [facility] Comment on above: ADA recommended refe rence rangeRandom Glucose Reference Range is dependent on time and content of last meal. Glucose of more than 200 mg/dL in a nonstressed, ambulatory subject supports the diagnosis of Diabetes Mellitus. Serum or plasma potassium me asurement (moles/volume)Ordered By: Edmond Branham on 09-23-2022 Potassium [Moles/Vol] 3.5 mmol/L 3.5-5.1 [facility] Serum or plasma sodium measu rement (moles/volume)Ordered By: Edmond Branham on 09-23-2022 Sodium [Moles/Vol] 137 mmol/L 136-146 [facility] Serum or plasma total biliru bin measurement (mass/volume)Ordered By: Edmond Branham on 09-23-2022 Bilirubin [Mass/Vol] 0.4 mg/dL 0.3-1.2 [facility] Serum or plasma total carbon dioxide measurement (moles/volume)Ordered By: Edmond Branham on 09-23-2022 CO2 [Moles/Vol] 21.6 mmol/L 22.0-30.0 [facility] Serum or plasma urea nitroge n measurement (mass/volume)Ordered By: Edmond Branham on 09-23-2022 Urea nitrogen [Mass/Vol] 13 mg/dL 9-23 [facility] Specific gravity Auto test s trip (U) [Rel density]Ordered By: Edmond Branham on 09-23-2022 Specific gravity (U) [Rel density] 1.012 1.001-1.03 0 [facility] Squamous epithelial cells de tection in urine sediment by light microscopyOrdered By: Edmond Branham on 09-23-2022 Epithelial cells.squamous LM Ql (Urine sed) 3-4 [HPF] 0-2 [facility] Troponin I.cardiac [Mass/vol ume] in Serum or Plasma by High sensitivity methodOrdered By: Edmond Branham on 09-23-2022 Troponin I.cardiac High sensitivity method [Mass/Vol] 6 pg/mL 0-15 [facility] Urine bacteria detection by automated methodOrdered By: Edmond Branham on 09-23-2022 Bacteria Auto Ql (U) None seen None Seen [facility] Urine clarity by refractomet ry automatedOrdered By: Edmond Branham on 09-23-2022 Clarity Refractometry automated (U) Clear Clear [facility] Urine culture routineOrdered By: Edmond Branham on 09-23-2022 Bacteria identified Cx Nom (U) 2 Days [facility] Urine glucose measurement by automated test strip (mass/volume)Ordered By: Edmond Branham on 09-23-2022 Glucose Auto test strip (U) [Mass/Vol] Normal mg/dL Normal [facility] Urine hemoglobin detection b y automated test stripOrdered By: Edmond Branham on 09-23-2022 Hemoglobin Auto test strip Ql (U) Negative Negative [facility] Urine leukocyte esterase det ection by automated test stripOrdered By: Edmond Branham on 09-23-2022 Leukocyte esterase Auto test strip Ql (U) 1+ Negative [facility] Urobilinogen Auto test strip (U) [Mass/Vol]Ordered By: Edmond Branham on 09-23-2022 Urobilinogen (U) [Mass/Vol] Normal mg/dL Normal [facility] WBC Auto (Bld) [#/Vol]Ordere d By: Edmond Branham on 09-23-2022 WBC (Bld) [#/Vol] 5.2 10*3/uL 3.8-11.6 [facility] pH Auto test strip (U)Ordere d By: Edmond Branham on 09-23-2022 pH (U) 8.0 [pH] 5.0-9.0 [facility] Prothrombin Time INRon 09-17 INR Coag (PPP) [Relative time] 3.2 {INR} [facility] Other Prothrombin Time INR [facility] [employer] Other Prothrombin Time INRon 08-20 INR Coag (PPP) [Relative time] 2.5 {INR} [facility] Other Prothrombin Time INR [facility] [employer] Other Prothrombin Time INRon 07-24 INR Coag (PPP) [Relative time] 3.5 {INR} [facility] Other Prothrombin Time INR [facility] [employer] Other Prothrombin Time INRon 06-26 INR Coag (PPP) [Relative time] 1.7 {INR} [facility] Other Prothrombin Time INR [facility] [employer] Other Prothrombin Time INRon 06-05 INR Coag (PPP) [Relative time] 2.6 {INR} [facility] Other Prothrombin Time INR [facility] [employer] Other Laboratory - CoagulationOrde red By: Marlon Molina on 05-29-2022 PT Coag (PPP) [Time] 12.3 s 9.0-12.9 [facility] Platelet poor plasma interna tional normalized ratio (INR) by coagulation assay (relatOrdered By: Marlon Molina on 05-29-2022 INR Coag (PPP) [Relative time] 1.1 {INR} [facility] Comment on above: INR Therapeutic Rang [...] time] 2.1 {INR} [facility] [employer] Other Prothrombin Time INR [facility] [employer] Other Basophils Auto (Bld) [#/Vol] Ordered By: Marlon Molina on 05-20-2022 Basophils (Bld) [#/Vol] 0.0 10*3/uL 0.0-0.2 [facility] Basophils/100 WBC Auto (Bld) Ordered By: Marlon Molina on 05-20-2022 Basophils/100 WBC (Bld) 0.9 % . [facility] Blood hemoglobin measurement (mass/volume)Ordered By: Marlon Molina on 05-20-2022 Hemoglobin (Bld) [Mass/Vol] 13.4 g/dL 11.8-15.4 [facility] Blood leukocytes automated c ount (number/volume)Ordered By: Marlon Molina on 05-20-2022 WBC (Bld) [#/Vol] 5.2 10*3/uL 4.5-11.0 [facility] Body fluid albumin measureme nt (mass/volume)Ordered By: Marlon Molina on 05-20-2022 Albumin (Body fld) [Mass/Vol] 3.6 g/dL 3.2-5.5 [facility] Creatinine and Glomerular fi ltration rate.predicted panel (S/P/Bld)Ordered By: Marlon Molina on 05-20-2022 Creatinine [Mass/Vol] 1.04 mg/dL 0.44-1.03 [facility] Eosinophils Auto (Bld) [#/Vo l]Ordered By: Marlon Molina on 05-20-2022 Eosinophils (Bld) [#/Vol] 0.1 10*3/uL 0.0-0.45 [facility] Eosinophils/100 WBC Auto (Bl d)Ordered By: Marlon Molina on 05-20-2022 Eosinophils/100 WBC (Bld) 1.1 % . [facility] Erythrocyte distribution wid th Auto (RBC) [Ratio]Ordered By: Marlon Molina on 05-20-2022 Erythrocyte distribution width (RBC) [Ratio] 14.6 % 11.9-15.3 [facility] Estimated glomerular filtrat ion rate (GFR) non- AmericanOrdered By: aMrlon Molina on 05-20-2022 GFR/1.73 sq M.predicted among non-blacks MDRD (S/P/Bld) [Vol rate/Area] 52 mL/Min [facility] Globulin Calc (S) [Mass/Vol] Ordered By: Marlon Molina on 05-20-2022 Globulin (S) [Mass/Vol] 2.8 g/dL [facility] Hematocrit Auto (Bld) [Volum e fraction]Ordered By: Marlon Molina on 05-20-2022 Hematocrit (Bld) [Volume fraction] 39.7 % 34.0-46.4 [facility] Laboratory - Hematology and Cell countsOrdered By: Marlon Molina on 05-20-2022 Nucleated RBC/100 WBC (Bld) [Ratio] 0.0 % 0-0.5 [facility] Lymphocytes Auto (Bld) [#/Vo l]Ordered By: Marlon Molina on 05-20-2022 Lymphocytes (Bld) [#/Vol] 1.2 10*3/uL 1.00-4.8 [facility] Lymphocytes/100 WBC Auto (Bl d)Ordered By: Marlon Molina on 05-20-2022 Lymphocytes/100 WBC (Bld) 22.5 % . [facility] MCH Auto (RBC) [Entitic mass ]Ordered By: Marlon Molina on 05-20-2022 MCH (RBC) [Entitic mass] 32.5 pg 24.7-34.3 [facility] MCHC Auto (RBC) [Mass/Vol]Or dered By: Marlon Molina on 05-20-2022 MCHC (RBC) [Mass/Vol] 33.7 g/dL 32.0-35.0 [facility] MCV Auto (RBC) [Entitic vol] Ordered By: Marlon Molina on 05-20-2022 MCV (RBC) [Entitic vol] 96.3 fL 80-100 [facility] Monocytes Auto (Bld) [#/Vol] Ordered By: Marlon Molina on 05-20-2022 Monocytes (Bld) [#/Vol] 0.4 10*3/uL 0.0-0.8 [facility] Monocytes/100 WBC Auto (Bld) Ordered By: Marlon Molina on 05-20-2022 Monocytes/100 WBC (Bld) 7.1 % . [facility] Neutrophils Auto (Bld) [#/Vo l]Ordered By: Marlon Molina on 05-20-2022 Neutrophils (Bld) [#/Vol] 3.6 10*3/uL 1.8-7.7 [facility] Neutrophils/100 WBC Auto (Bl d)Ordered By: Marlon Molina on 05-20-2022 Neutrophils/100 WBC (Bld) 68.4 % . [facility] No Panel InformationOrdered By: Marlon Molina on 05-20-2022 Estimated GFR () > 60 mL/Min [facility] Comment on above: GFR estimated refere nce range: According to KDOQI guidelines, <60 ml/min/1.73m2 is sufficient to diagnose a patient with chronic kidney disease. Pharmacy Creatinine Clearance (Chem N/A [facility] Platelet mean volume Auto (B ld) [Entitic vol]Ordered By: Marlon Molina on 05-20-2022 Platelet mean volume (Bld) [Entitic vol] 8.8 fL 6.3-10.7 [facility] Platelets Auto (Bld) [#/Vol] Ordered By: Marlon Molina on 05-20-2022 Platelets (Bld) [#/Vol] 224 10*3/uL 150-450 [facility] Protein [Mass/volume] in Ser um or PlasmaOrdered By: Marlon Molina on 05-20-2022 Protein [Mass/Vol] 6.4 g/dL 6.1-7.9 [facility] RBC Auto (Bld) [#/Vol]Ordere d By: Marlon Molina on 05-20-2022 RBC (Bld) [#/Vol] 4.13 10*6/uL 3.60-5.00 [facility] Serum or plasma alanine lugo otransferase measurement without P-5'-P (enzymatic activiOrdered By: Marlon Molina on 05-20-2022 ALT No additional P-5'-P [Catalytic activity/Vol] 18 U/L 10-60 [facility] Serum or plasma albumin/glob ulin mass ratioOrdered By: Marlon Molina on 05-20-2022 Albumin/Globulin [Mass ratio] 1.3 {ratio} [facility] Serum or plasma alkaline elijah sphatase measurement (enzymatic activity/volume)Ordered By: Marlon Molina on 05-20-2022 ALP [Catalytic activity/Vol] 51 U/L 32-92 [facility] Serum or plasma anion gap de terminationOrdered By: Marlon Molina on 05-20-2022 Anion gap [Moles/Vol] 16.4 mmol/L 6.0-15.0 [facility] Serum or plasma aspartate am inotransferase measurement (enzymatic activity/volume)Ordered By: Marlon Molina on 05-20-2022 AST [Catalytic activity/Vol] 21 U/L 10-42 [facility] Serum or plasma calcium flakita urement (mass/volume)Ordered By: Marlon Molina on 05-20-2022 Calcium [Mass/Vol] 8.8 mg/dL 8.2-10.2 [facility] Serum or plasma chloride patrice surement (moles/volume)Ordered By: Marlon Molina on 05-20-2022 Chloride [Moles/Vol] 99 mmol/L 95-114 [facility] Serum or plasma glucose flakita urement (mass/volume)Ordered By: Marlon Molina on 05-20-2022 Glucose [Mass/Vol] 191 mg/dL 70-100 [facility] Comment on above: ADA recommended refe rence rangeRandom Glucose Reference Range is dependent on time and content of last meal. Glucose of more than 200 mg/dL in a nonstressed, ambulatory subject supports the diagnosis of Diabetes Mellitus. Serum or plasma potassium me asurement (moles/volume)Ordered By: Marlon Molina on 05-20-2022 Potassium [Moles/Vol] 4.1 mmol/L 3.5-5.1 [facility] Serum or plasma sodium measu rement (moles/volume)Ordered By: Marlon Molina on 05-20-2022 Sodium [Moles/Vol] 136 mmol/L 136-146 [facility] Serum or plasma total biliru bin measurement (mass/volume)Ordered By: Marlon Molina on 05-20-2022 Bilirubin [Mass/Vol] 0.3 mg/dL 0.3-1.2 [facility] Serum or plasma total carbon dioxide measurement (moles/volume)Ordered By: Marlon Molina on 05-20-2022 CO2 [Moles/Vol] 24.7 mmol/L 22.0-30.0 [facility] Serum or plasma urea nitroge n measurement (mass/volume)Ordered By: Marlon Molina on 05-20-2022 Urea nitrogen [Mass/Vol] 15 mg/dL 9-23 [facility] Prothrombin Time INRon 05-06 INR Coag (PPP) [Relative time] 1.5 {INR} [facility] Other Prothrombin Time INR [place] [employer] Other Prothrombin Time INRon 04-08 INR Coag (PPP) [Relative time] 1.8 {INR} [facility] Other Prothrombin Time INR [place] [employer] Other Prothrombin Time INRon 03-13 INR Coag (PPP) [Relative time] 2.3 {INR} [facility] Other Prothrombin Time INR [place] [employer] Other Prothrombin Time INRon 02-27 INR Coag (PPP) [Relative time] 2.3 {INR} [facility] Other Prothrombin Time INR [place] [employer] Other COVID-19 Positive/NegativeOr dered By: Tang Mcclellan on 02-26-2022 SARS-CoV-2 (COVID-19) N gene ZHAO+probe Ql (Resp) Negative Negative [facility] Comment on above: Testing for SARS-CoV -2 by RT-PCRThis test was developed and its performance characteristics determined by [employer] ([employer]) and validated at the [facility]. This test has not been FDA [...] INR Coag (PPP) [Relative time] 2.0 {INR} [facility] Other Prothrombin Time INR [place] [employer] Other Prothrombin Time INRon 01-06 INR Coag (PPP) [Relative time] 1.4 {INR} [facility] Other Prothrombin Time INR [place] [employer] Other Prothrombin Time INRon 12-23 INR Coag (PPP) [Relative time] 1.7 {INR} [facility] Other Prothrombin Time INR [facility] [employer] Other Prothrombin Time INRon 12-11 INR Coag (PPP) [Relative time] 2.9 {INR} [place] [employer] Other Prothrombin Time INR [facility] [place] Other Prothrombin Time INRon 11-27 INR Coag (PPP) [Relative time] 1.7 {INR} [place] [employer] Other Prothrombin Time INR [facility] [employer] Other Prothrombin Time INRon 11-12 INR Coag (PPP) [Relative time] 1.9 {INR} [place] [employer] Other Prothrombin Time INR [facility] [employer] Other Prothrombin Time INRon 10-31 INR Coag (PPP) [Relative time] 2.1 {INR} [place] [employer] Other Prothrombin Time INR [facility] [employer] Other Prothrombin Time INRon 10-14 INR Coag (PPP) [Relative time] 2.5 {INR} [place] [employer] Other Prothrombin Time INR [facility] [employer] Other Prothrombin Time INRon 09-30 INR Coag (PPP) [Relative time] 2.6 {INR} [place] [employer] Other Prothrombin Time INR [facility] [employer] Other Prothrombin Time INRon 09-12 INR Coag (PPP) [Relative time] 1.8 {INR} [facility] Other Prothrombin Time INR [facility] [employer] Other Prothrombin Time INRon 08-29 INR Coag (PPP) [Relative time] 2.1 {INR} [facility] Other Prothrombin Time INR [place] [employer] Other Prothrombin Time INRon 08-15 Prothrombin Time INR 1.5 [facility] [employer] Other Prothrombin Time INRon 08-01 INR Coag (PPP) [Relative time] 2.5 {INR} [facility] [employer] Other Prothrombin Time INR [facility] [place] Other Prothrombin Time INRon 07-15 INR Coag (PPP) [Relative time] 2.6 {INR} [facility] [employer] Other Prothrombin Time INR [facility] [place] Other Prothrombin Time INRon 07-03 INR Coag (PPP) [Relative time] 2.4 {INR} [facility] [employer] Other Prothrombin Time INR [facility] [employer] Other Prothrombin Time INRon 06-19 INR Coag (PPP) [Relative time] 1.8 {INR} [facility] [employer] Other Prothrombin Time INR [facility] [place] Other Prothrombin Time INRon 05-28 INR Coag (PPP) [Relative time] 2.1 {INR} [facility] [employer] Other Prothrombin Time INR [facility] [employer] Other Prothrombin Time INRon 05-15 INR Coag (PPP) [Relative time] 1.6 {INR} [facility] [employer] Other Prothrombin Time INR [facility] [employer] Other Vital Signs Date Time Vital Sign Value Performing Clinician Facility 02-13-2025 08:40-0400 Body height 154.9 cm Venita Marques MANAGER VALIDATION Work Phone: [facility] 02-13-2025 08:40-0400 Body mass index (BMI) [Ratio] 34.31 kg/m2 Venita Marques NP Work Phone: [facility] 02-13-2025 08:40-0400 Body weight 82.37 kg Venita Didion MANAGER VALIDATION Work Phone: [facility] 02-13-2025 08:40-0400 Diastolic blood pressure 70 mm[Hg] Venita Didion MANAGER VALIDATION Work Phone: [facility] 02-13-2025 08:40-0400 Heart rate 74 /min Venita Didion MANAGER VALIDATION Work Phone: [facility] 02-13-2025 08:40-0400 Respiratory rate 16 /min Venita Didion MANAGER VALIDATION Work Phone: [facility] 02-13-2025 08:40-0400 SaO2% (BldA) [Mass fraction] 98 % Venita Didion MANAGER VALIDATION Work Phone: [facility] 02-13-2025 08:40-0400 Systolic blood pressure 112 mm[Hg] Venita Didion MANAGER VALIDATION Work Phone: [facility] 01-09-2025 08:47-0400 Body [...] Diastolic blood pressure 58 mm[Hg] Venita Didion MANAGER VALIDATION Work Phone: [facility] 10-25-2024 14:36-0500 Heart rate 74 /min Venita Didion MANAGER VALIDATION Work Phone: [facility] 10-25-2024 14:36-0500 Respiratory rate 16 /min Venita Didion MANAGER VALIDATION Work Phone: [facility] 10-25-2024 14:36-0500 SaO2% (BldA) [Mass fraction] 98 % Venita Marques MANAGER VALIDATION Work Phone: [facility] 10-25-2024 14:36-0500 Systolic blood pressure 120 mm[Hg] Venita Marques MANAGER VALIDATION Work Phone: [facility] 10-07-2024 09:08-0500 Body height 154.94 cm [facility] 10-07-2024 09:08-0500 Body mass index (BMI) [Ratio] 33.6 kg/m2 [facility] 10-07-2024 09:08-0500 Body weight 80.73 kg [facility] 10-07-2024 09:08-0500 Diastolic blood pressure 75 mm[Hg] [facility] 10-07-2024 09:08-0500 Heart rate 73 /min [facility] 10-07-2024 09:08-0500 Systolic blood pressure 127 mm[Hg] [facility] 10-03-2024 09:14-0500 Body height 156.2 cm [...] Hospital 06-29-2024 10:39-0500 Body height 154.94 cm [facility] 06-29-2024 10:39-0500 Body mass index (BMI) [Ratio] 33.8 kg/m2 [facility] 06-29-2024 10:39-0500 Body weight 81.19 kg [facility] 06-22-2024 08:50-0400 Body height 156.2 cm Adam Rodriguez MANAGER VALIDATION Work Phone: [facility] 06-22-2024 08:50-0400 Body mass index (BMI) [Ratio] 33.09 kg/m2 Adam Rodriguez MANAGER VALIDATION Work Phone: [facility] 06-22-2024 08:50-0400 Body weight 80.74 kg Adam Rodriguez MANAGER VALIDATION Work Phone: [facility] 06-22-2024 08:50-0400 Diastolic blood pressure 74 mm[Hg] Adam Rodriguez MANAGER VALIDATION Work Phone: [facility] 06-22-2024 08:50-0400 Heart rate 79 /min Adam Rodriguez MANAGER VALIDATION Work Phone: [facility] 06-22-2024 08:50-0400 SaO2% (BldA) [Mass fraction] 99 % Adam Rodriguez MANAGER VALIDATION Work Phone: [facility] 06-22-2024 08:50-0400 Systolic blood pressure 120 mm[Hg] Adam Rodriguez MANAGER VALIDATION Work Phone: [facility] 04-29-2024 08:53-0400 Body [...] 60 mm[Hg] DO Kristopher Chuy Work Phone: [facility] 02-09-2024 11:03-0400 Heart rate 76 /min DO Kristopher Chuy Work Phone: [facility] 02-09-2024 11:03-0400 Respiratory rate 16 /min DO Kristopher Chuy Work Phone: [facility] 02-09-2024 11:03-0400 SaO2% (BldA) [Mass fraction] 99 % DO Kristopher Chuy Work Phone: [facility] 02-09-2024 11:03-0400 Systolic blood pressure 128 mm[Hg] DO Kristopher Chuy Work Phone: [facility] 02-09-2024 09:32-0400 Body height 154.94 cm DO Kristopher Chuy Work Phone: [facility] 02-09-2024 09:32-0400 Body temperature 99 [degF] DO Kristopher Chuy Work Phone: [facility] 02-09-2024 09:32-0400 Body weight 78.92 kg DO Kristopher Chuy Work Phone: [facility] 12-28-2023 11:17-0400 Diastolic blood pressure 77 mm[Hg] DO Kristopher Chuy Work Phone: [facility] 12-28-2023 11:17-0400 Heart rate 77 /min DO Kristopher Chuy Work Phone: [facility] 12-28-2023 11:17-0400 Respiratory rate 16 /min DO Kristopher Herzog Work Phone: [facility] 12-28-2023 11:17-0400 SaO2% (BldA) [Mass fraction] 99 % DO Kristopher Herzog Work Phone: [facility] 12-28-2023 11:17-0400 Systolic blood pressure 113 mm[Hg] DO Kristopher Herzog Work Phone: [facility] 12-28-2023 08:33-0400 Body height 154.94 cm DO Kristopher Herzog Work Phone: [facility] 12-28-2023 08:33-0400 Body weight 79.83 kg DO Kristopher Herzog Work Phone: [facility] 12-07-2023 10:06-0400 Body height 156.21 cm DO Kristopher Herzog Work Phone: [facility] 12-07-2023 10:06-0400 Body mass index (BMI) [Ratio] 32.7 kg/m2 DO Kristopher Herzog Work Phone: [facility] 12-07-2023 10:06-0400 Body weight 79.83 kg DO Kristopher Herzog Work Phone: [facility] 12-07-2023 10:06-0400 Diastolic blood pressure 74 mm[Hg] DO Kristopher Herzog Work Phone: [facility] 12-07-2023 10:06-0400 Heart rate 79 /min DO Kristopher Herzog Work Phone: [facility] 12-07-2023 10:06-0400 Systolic blood pressure 142 mm[Hg] DO Kristopher Chuy Work Phone: [facility] 12-15-2022 17:21-0400 Body temperature 98.1 [degF] DO Kristopher Herzog Work Phone: [facility] 12-15-2022 17:21-0400 Diastolic blood pressure 77 mm[Hg] DO Kristopher Chuy Work Phone: [facility] 12-15-2022 17:21-0400 Heart rate 83 /min DO Kristopher Chuy Work Phone: [facility] 12-15-2022 17:21-0400 Respiratory rate 16 /min DO Kristopher Chuy Work Phone: [facility] 12-15-2022 17:21-0400 SaO2% (BldA) [Mass fraction] 99 % DO Kristopher Chuy Work Phone: [facility] 12-15-2022 17:21-0400 Systolic blood pressure 158 mm[Hg] DO Kristopher Chuy Work Phone: [facility] 12-15-2022 06:00-0400 Body weight 85.3 kg DO Kristopher Chuy Work Phone: [facility] 12-13-2022 20:01-0400 Diastolic blood pressure 81 mm[Hg] DO Kristopher Chuy Work Phone: [facility] 12-13-2022 20:01-0400 Heart rate 75 /min DO Kristopher Chuy Work Phone: [facility] 12-13-2022 20:01-0400 Respiratory rate 18 /min DO Kristopher Chuy Work Phone: [facility] 12-13-2022 20:01-0400 SaO2% (BldA) [Mass fraction] 99 % DO Kristopher Chuy Work Phone: [facility] 12-13-2022 20:01-0400 Systolic blood pressure 167 mm[Hg] DO Kristopher Chuy Work Phone: [facility] 12-13-2022 13:48-0400 Body height 160.02 cm DO Kristopher Chuy Work Phone: [facility] 12-13-2022 13:48-0400 Body temperature 98.6 [degF] DO Kristopher Herzog Work Phone: [facility] 12-13-2022 13:48-0400 Body weight 88.3 kg DO Kristopher Herzog Work Phone: [facility] 09-23-2022 19:59-0500 Diastolic blood pressure 72 mm[Hg] DO Kristopher Herzog Work Phone: [facility] 09-23-2022 19:59-0500 Heart rate 77 /min DO Kristopher Herzog Work Phone: [facility] 09-23-2022 19:59-0500 Respiratory rate 18 /min DO Kristopher Herzog Work Phone: [facility] 09-23-2022 19:59-0500 SaO2% (BldA) [Mass fraction] 97 % DO Kristopher Herzog Work Phone: [facility] 09-23-2022 19:59-0500 Systolic blood pressure 168 mm[Hg] DO Kristopher Herzog Work Phone: [facility] 09-23-2022 18:17-0500 Body height 160.02 cm DO Kristopher Herzog Work Phone: [facility] 09-23-2022 18:17-0500 Body temperature 98.7 [degF] DO Kristopher Herzog Work Phone: [facility] 09-23-2022 18:17-0500 Body weight 85.7 kg DO Kristopher Herzog Work Phone: [facility] 07-16-2022 09:56-0500 Body temperature 98.8 [degF] DO Kristopher Chuy Work Phone: [facility] 07-16-2022 09:56-0500 Diastolic blood pressure 70 mm[Hg] DO Kristopher Chuy Work Phone: [facility] 07-16-2022 09:56-0500 Heart rate 79 /min DO Kristopher Herzog Work Phone: [facility] 07-16-2022 09:56-0500 Respiratory rate 17 /min DO Kristopher Herzog Work Phone: [facility] 07-16-2022 09:56-0500 SaO2% (BldA) [Mass fraction] 98 % DO Kristopher Herzog Work Phone: [facility] 07-16-2022 09:56-0500 Systolic blood pressure 150 mm[Hg] DO Kristophervince Herzog Work Phone: [facility] 07-16-2022 08:29-0500 Body height 160.02 cm DO Kristopher Herzog Work Phone: [facility] 07-16-2022 08:29-0500 Body weight 83 kg DO Kristopher Herzog Work Phone: [facility] 06-04-2022 09:13-0400 Body temperature 97.9 [degF] DO Kristopher Herzog Work Phone: [facility] 06-04-2022 09:13-0400 Diastolic blood pressure 64 mm[Hg] DO Kristopher Herzog Work Phone: [facility] 06-04-2022 09:13-0400 Heart rate 93 /min DO Kristopher Herzog Work Phone: [facility] 06-04-2022 09:13-0400 Respiratory rate 20 /min DO Kristopher Herzog Work Phone: [facility] 06-04-2022 09:13-0400 SaO2% (BldA) [Mass fraction] 97 % DO Kristopher Herzog Work Phone: [facility] 06-04-2022 09:13-0400 Systolic blood pressure 134 mm[Hg] DO Kristopher Chuy Work Phone: [facility] 05-29-2022 08:18-0400 Body temperature 98.1 [degF] DO Kristopher Herzog Work Phone: [facility] 05-29-2022 08:18-0400 Diastolic blood pressure 76 mm[Hg] DO Kristopher Herzog Work Phone: [facility] 05-29-2022 08:18-0400 Heart rate 77 /min DO Kristopher Herzog Work Phone: [facility] 05-29-2022 08:18-0400 Respiratory rate 20 /min DO Kristopher Herzog Work Phone: [facility] 05-29-2022 08:18-0400 SaO2% (BldA) [Mass fraction] 98 % DO Kristopher Herzog Work Phone: [facility] 05-29-2022 08:18-0400 Systolic blood pressure 146 mm[Hg] DO Kristopher Herzog Work Phone: [facility] 02-11-2022 08:39-0400 Body weight 0 kg DO Kristopher Herzog Work Phone: [facility] 01-28-2022 16:15-0400 Body height 157.48 cm Tang Mcclellan Other [facility] Other 01-28-2022 16:15-0400 Body mass index (BMI) [Ratio] 31.64 kg/m2 Tang Mcclellan Other [facility] Other 01-28-2022 16:15-0400 Body weight 78.47 kg Tang Mcclellan Other [facility] Other Encounters Encounter Date Encounter Type Care Provider Facility Start: 05-22-2025 End: 05-22-2025 Cindy Branham DPM Work Phone: [facility] Start: 05-22-2025 End: 05-22-2025 Bamboo flowsheet [facility] Start: 05-22-2025 End: 05-22-2025 ambulatory MARLON Olman YONAS Not Available Start: 05-22-2025 End: 05-22-2025 Postop follow up visit related to original px Marlon Branham DPM Work Phone: [facility] Comment on above: Onychomycosis (Prima ry Dx); Pain in both feet; Type II diabetes mellitus with neurological manifestations (HCC); Corns and callosities; Hallux malleus, right; Surgery follow-up examination Start: 04-20-2025 End: 04-20-2025 Bamboo flowsheet Marlon H Yonas DPM Work Phone: [facility] Start: 04-20-2025 End: 04-20-2025 Bamboo flowsheet Marlon Thurman Branham DPM Work Phone: [facility] Start: 04-20-2025 End: 04-20-2025 Postop follow up visit related to original px Marlon Branham DPM Work Phone: [facility] Comment on above: Posterior tibial ten donitis, right (Primary Dx); Surgery follow-up examination; Hallux malleus, right; Ulcer of great toe, right, limited to breakdown of skin (HCC) Start: 04-20-2025 End: 04-20-2025 ambulatory MARLON BRANHAM Not Available Start: 04-05-2025 End: 04-05-2025 Bamboo flowsheet Marlon Olman Yonas DPM Work Phone: [facility] Start: 04-05-2025 End: 04-05-2025 Bamboo flowsheet Marlon H Yonas DPM Work Phone: [facility] Start: 04-05-2025 End: 04-05-2025 Postop follow up visit related to original px [facility] Ol[facility]PM [facility] Comment on above: Surgery follow-up ex amination (Primary Dx); Hallux malleus, right; Ulcer of great toe, right, limited to breakdown of skin (HCC); Right foot pain Start: 04-05-2025 End: 04-05-2025 ambulatory MARLON BRANHAM Not Available Start: 03-22-2025 End: 03-22-2025 Bamboo flowsheet Marlon Branham DPM Work Phone: [facility] Start: 03-22-2025 End: 03-22-2025 Bamboo flowsheet Marlon Branham DPM Work Phone: [facility] Start: 03-22-2025 End: 03-22-2025 Postop follow up visit related to original px Marlon Branham DPM Work Phone: [facility] Comment on above: Surgery follow-up ex amination (Primary Dx); Hallux malleus, right; Right foot pain; Ulcer of great toe, right, limited to breakdown of skin (HCC) Start: 03-22-2025 End: 03-22-2025 ambulatory MARLON BRANHAM Not Available Start: 03-17-2025 End: 03-17-2025 ambulatory Kristopher Herzog DO Work Phone: [facility] Work Phone: Start: 03-17-2025 End: 03-17-2025 Patient encounter procedure K[place] [facility] Work Phone: Start: 03-14-2025 End: 03-14-2025 Bamboo flowsheet Marlon Branham DPM Work Phone: [facility] Start: 03-14-2025 End: 03-14-2025 Bamboo flowsheet Marlon Branham DPM Work Phone: [facility] Start: 03-14-2025 End: 03-14-2025 ambulatory MARLON BRANHMA Not Available Start: 03-14-2025 End: 03-14-2025 Postop follow up visit related to original px Marlon Branham DPM Work Phone: [facility] Comment on above: Surgery follow-up ex amination (Primary Dx); Hallux malleus, right; Right foot pain Start: 03-13-2025 End: 03-13-2025 ambulatory Kristopher Herzog DO Work Phone: [facility] Work Phone: Start: 03-13-2025 End: 03-13-2025 [facility] Work Phone: Start: 03-09-2025 End: 03-09-2025 Bamboo flowsheet Caro HEWITT Work Phone: [facility] Start: 03-09-2025 End: 03-09-2025 Bamboo flowsheet Caro Hugo PA Work Phone: [facility] Start: 03-09-2025 End: 03-09-2025 ambulatory Kristopher Herzog DO Work Phone: [facility] Work Phone: Start: 03-09-2025 End: 03-09-2025 Patient encounter procedure Tita Floresnicol [facility] Work Phone: Start: 03-09-2025 End: 03-09-2025 Office outpatient new 30 minutes Caro Hugo PA Work Phone: [facility] Comment on above: Acute pain of left k nee (Primary Dx); Primary osteoarthritis of left knee Start: 03-09-2025 End: 03-09-2025 ambulatory CARO HUGO Not Available Start: 03-07-2025 End: 03-07-2025 Bamboo flowsheet Marlon Branham DPM Work Phone: [facility] Start: 03-07-2025 End: 03-07-2025 Bamboo flowsheet Marlon Branham DPM Work Phone: [facility] Start: 03-07-2025 End: 03-07-2025 Postop follow up visit related to original px Marlon Branham DPM Work Phone: [facility] Comment on above: Surgery follow-up ex amination (Primary Dx); Hallux malleus, right; Right foot pain; Ulcer of great toe, right, limited to breakdown of skin (HCC) Start: 03-07-2025 End: 03-07-2025 ambulatory MARLON BRANHAM Not Available Start: 02-22-2025 End: 02-22-2025 Telephone encounter Venita Marques NP Work Phone: [facility] Start: 02-22-2025 End: 02-22-2025 ambulatory Kristopher Herzog DO Work Phone: [facility] Work Phone: Start: 02-22-2025 End: 02-22-2025 Patient encounter procedure Tita Roberts [facility] Work Phone: Start: 02-16-2025 End: 02-16-2025 Bamboo flowsheet Marlon Branham DPM Work Phone: [facility] Start: 02-16-2025 End: 02-16-2025 Bamboo flowsheet Marlon Branham DPM Work Phone: [facility] Start: 02-16-2025 End: 02-16-2025 ambulatory MRALON BRANHAM Not Available Start: 02-16-2025 End: 02-16-2025 Office outpatient visit 15 minutes Marlon Branham DPM Work Phone: [facility] Comment on above: Hallux malleus, righ t (Primary Dx); Right foot pain Start: 02-13-2025 End: 02-13-2025 Office outpatient visit 15 minutes Venita Marques NP Work Phone: [facility] Comment on above: Acute pain of left k nee (Primary Dx); Primary osteoarthritis of left knee; Hallux malleus of right foot; Callus; Preoperative clearance Start: 02-13-2025 End: 02-13-2025 Preoperative state Venita Marques MANAGER VALIDATION Work Phone: [facility] Start: 02-13-2025 End: 02-13-2025 ambulatory VENITA MARQUES Not Available Start: 02-09-2025 End: 02-09-2025 Patient encounter procedure Kiersten Qureshi [facility] Work Phone: Start: 02-01-2025 End: 02-01-2025 Bamboo flowsheet Marlon Branham DPM Work Phone: [facility] Start: 02-01-2025 End: 02-01-2025 Bamboo flowsheet Marlon Branham DPM Work Phone: [facility] Start: 02-01-2025 End: 02-01-2025 ambulatory Kristopher Herzog DO Work Phone: [facility] Work Phone: Start: 02-01-2025 End: 02-01-2025 Patient encounter procedure Kristopher Herzog DO Work Phone: [facility] Work Phone: Start: 02-01-2025 End: 02-01-2025 ambulatory MARLON BRANHAM Not Available Start: 02-01-2025 End: 02-01-2025 Office outpatient visit 15 minutes Marlon Branham DPM Work Phone: [facility] Comment on above: Onychomycosis [...] 01-09-2025 End: 01-09-2025 Bamboo flowsheet Kristopher A Cuhy DO Work Phone: [facility] Start: 01-09-2025 End: 01-09-2025 Office outpatient visit 40 minutes Kristopher Rebekah Chuy DO Work Phone: [facility] Comment on above: Medicare annual well ness visit, subsequent (Primary Dx); Advance care planning; Type 2 diabetes mellitus with stage 3a chronic kidney disease, with long-term current use of insulin (HCC) (CMS/HCC); Diabetic peripheral neuropathy associated with type 2 diabetes mellitus (CMS/HCC); half-way current use of insulin (CMS/HCC); Mixed hyperlipidemia (CMS/HCC); Steatosis of liver; Primary hypertension (CMS/HCC); Chronic deep vein thrombosis (DVT) of femoral vein of left lower extremity (CMS/HCC); Spinal stenosis of lumbosacral region; half-way current use of 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 Start: 01-09-2025 End: 01-09-2025 Patient encounter procedure Kristopher Rebekah Chuy DO Work Phone: [facility] Work Phone: Start: 01-09-2025 End: 01-09-2025 ambulatory KRISTOPHER HERZOG Not Available Start: 01-05-2025 End: 01-05-2025 Clinisync Result Encounter Kristopher Rebekah Chuy DO Work Phone: [facility] External Department Unsolicited Start: 01-05-2025 End: 01-05-2025 Clinisync Result Encounter Kristopher Herzog DO Work Phone: [facility] External Department Unsolicited Start: 01-04-2025 End: 01-04-2025 ambulatory Kristophervince Herzog DO Work Phone: [facility] Work Phone: Start: 01-04-2025 End: 01-04-2025 Patient encounter procedure Kristopher Herzog DO Work Phone: [facility] Work Phone: Start: 12-16-2024 End: 12-16-2024 ambulatory RADHA H ITMARIZAHERMILO Not Available Start: 12-16-2024 End: 12-16-2024 Office outpatient visit 25 minutes Radha Olman Itmaikolel DO Work Phone: [facility] Comment on above: Axillary lymphadenop athy (Primary Dx); H/O diagnostic mammography Start: 12-14-2024 End: 12-14-2024 Bamboo flowsheet Kristopher Herzog DO Work Phone: [facility] Start: 12-14-2024 End: 12-14-2024 Bamboo flowsheet Kristopher Belloman DO Work Phone: [facility] Start: 12-14-2024 End: 12-14-2024 Office outpatient visit 40 minutes Kristopher Herzog DO Work Phone: 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; Steatosis of liver; Primary hypertension (CMS/HCC); Venous insufficiency; Primary osteoarthritis of left knee Start: 12-14-2024 End: 12-14-2024 ambulatory KRISTOPHER HERZOG Not Available Start: 12-07-2024 End: 12-07-2024 ambulatory Radha Itzkowitz Facility:[facility] Start: 12-07-2024 End: 12-07-2024 Patient encounter procedure Kristopher Herzog DO Work Phone: [facility] Comment on above: Leg numbness (Primar y Dx) Start: 11-30-2024 End: 11-30-2024 ambulatory [facility] Work Phone: Start: 11-30-2024 End: 11-30-2024 Patient encounter procedure [facility] Work Phone: Start: 11-23-2024 End: 11-23-2024 ambulatory VENITA L DIDION Not Available Start: 11-15-2024 End: 11-15-2024 ambulatory VENITA L DIDION Not Available Start: 11-02-2024 End: 11-02-2024 ambulatory [facility] Work Phone: Start: 11-02-2024 End: 11-02-2024 Patient encounter procedure [facility] Work Phone: Start: 10-31-2024 End: 10-31-2024 ambulatory MARLON BRANHAM Not Available Start: 10-27-2024 End: 10-27-2024 ambulatory VENITA L DIDION Not Available Start: 10-25-2024 End: 10-25-2024 ambulatory VENITA L DIDION Not Available Start: 10-25-2024 End: 10-25-2024 Office outpatient visit 25 minutes Venita L Didion MANAGER VALIDATION Work Phone: [facility] Comment on above: Nonintractable heada shelby, unspecified chronicity pattern, unspecified headache type (Primary Dx); Neck pain; Paresthesia of left arm; Numbness of fingers Start: 10-23-2024 Non-patient / Non-visit [facility] Work Phone: Start: 10-07-2024 End: 10-07-2024 ambulatory [facility] Work Phone: Start: 10-07-2024 End: 10-07-2024 Patient encounter procedure [facility] Work Phone: Start: 10-05-2024 End: 10-05-2024 ambulatory [facility] Work Phone: Start: 10-05-2024 End: 10-05-2024 Patient encounter procedure [facility] Work Phone: Start: 10-03-2024 End: 10-03-2024 Office outpatient visit 25 minutes Kristopher Herzog DO Work Phone: [facility] Comment on above: Primary osteoarthrit is of right knee (Primary Dx); Hypercoagulable state (CMS/HCC); Diabetic peripheral neuropathy associated with type 2 diabetes mellitus (CMS/HCC); Primary hypertension (CMS/HCC); Ulcerative colitis without complications, unspecified location (CMS/HCC); half-way current use of insulin (CMS/HCC); half-way current use of 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; Sacral ulcer, limited to breakdown of skin (CMS/HCC) Start: 10-03-2024 End: 10-03-2024 ambulatory KRISTOPHER HERZOG Not Available Start: 09-09-2024 End: 09-09-2024 ambulatory [facility] Work Phone: Start: 09-09-2024 End: 09-09-2024 Patient encounter procedure [facility] Work Phone: Start: 08-03-2024 End: 08-03-2024 Patient encounter procedure [facility] Work Phone: Start: 08-01-2024 End: 08-01-2024 Bamboo flowsheet Marlon Branham DPM Work Phone: [facility] Start: 08-01-2024 End: 08-01-2024 Bamboo flowsheet Marlon Branham DPM Work Phone: [facility] Start: 08-01-2024 End: 08-01-2024 Office outpatient visit 10 minutes Marlon Branham DPM Work Phone: [facility] Comment on above: 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) (Primary Dx); Onychomycosis; Corns and callosities; Hallux malleus, left; Pain in both feet Start: 08-01-2024 End: 08-01-2024 ambulatory MARLON Thurman YONAS Not Available Start: 07-04-2024 End: 07-04-2024 ambulatory [facility] Work Phone: Start: 07-04-2024 End: 07-04-2024 Patient encounter procedure [facility] Work Phone: Start: 06-29-2024 End: 06-29-2024 ambulatory [facility] Work Phone: Start: 06-29-2024 End: 06-29-2024 Patient encounter procedure [facility] Work Phone: Start: 06-22-2024 End: 06-22-2024 Office outpatient visit 25 minutes Adam Rodriguez MANAGER VALIDATION Work Phone: [facility] Comment on above: Primary hypertension (CMS/HCC) (Primary Dx); Mixed hyperlipidemia (CMS/HCC); Obstructive sleep apnea syndrome; Peripheral venous insufficiency; Chronic deep vein thrombosis (DVT) of femoral vein of left lower extremity (CMS/HCC); 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 machines and devices; Diabetic peripheral neuropathy associated with type 2 diabetes mellitus (CMS/HCC); Gastroesophageal reflux disease without esophagitis; Hypercoagulable state (CMS/HCC); half-way current use of 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; half-way current use of insulin (CMS/HCC); OAB (overactive bladder); Class 1 obesity; Spinal stenosis of lumbosacral region; Ulcerative colitis without complications, unspecified location (CMS/HCC); Need for immunization against influenza; Atrophic vaginitis; Bilateral leg edema Start: 06-22-2024 End: 06-22-2024 ambulatory ADAM RODRIGUEZ Not Available Start: 06-17-2024 End: 06-18-2024 Orders Only Adam Rodriguez MANAGER VALIDATION Work Phone: [facility] External Department Unsolicited Start: 06-06-2024 End: 06-06-2024 ambulatory [facility] Work Phone: Start: 06-06-2024 End: 06-06-2024 Patient encounter procedure [facility] Work Phone: Start: 05-09-2024 End: 05-09-2024 ambulatory DO Kristopher Chuy Work Phone: [facility] Work Phone: Start: 05-09-2024 End: 05-09-2024 Patient encounter procedure DO Kristophervince Herzog Work Phone: [facility] Work Phone: Start: 04-29-2024 End: 04-29-2024 [...] procedure Marlon Branham DPM Work Phone: [facility] Comment on above: 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) (Primary Dx); Onychomycosis; Corns and callosities; Pain in both feet Start: 04-14-2024 End: 04-14-2024 ambulatory DO Kristopher Herzog Work Phone: [facility] Work Phone: Start: 04-14-2024 End: 04-14-2024 Patient encounter procedure DO Kristopher Chuy Work Phone: [facility] Work Phone: Start: 03-14-2024 End: 03-14-2024 ambulatory DO Kristopher Belloman Work Phone: [facility] Work Phone: Start: 03-14-2024 End: 03-14-2024 Patient encounter procedure DO Kristopher Chuy Work Phone: [facility] Work Phone: Start: 02-17-2024 End: 02-17-2024 ambulatory DO Kristopher Chuy Work Phone: [facility] Work Phone: Start: 02-17-2024 End: 02-17-2024 Patient encounter procedure DO Kristopher Herzog Work Phone: [facility] Work Phone: Start: 02-09-2024 End: 02-09-2024 Emergency department patient visit DO Kristopher Herzog Work Phone: [facility]-Emergency Room Work Phone: Start: 01-20-2024 End: 01-20-2024 ambulatory DO Kristophervince Herzog Work Phone: [facility] Work Phone: Start: 01-20-2024 End: 01-20-2024 Patient encounter procedure DO Kristopher Chuy Work Phone: [facility] Work Phone: Start: 01-05-2024 End: 01-05-2024 Patient encounter procedure DO Kristopher Chuy Work Phone: [facility] Work Phone: Start: 12-28-2023 Non-patient / Non-visit DO Preet Herzog Work Phone: [facility] Gastro[facility]ology Work Phone: Start: 12-28-2023 End: 12-28-2023 Admission to same day surgery center DO Kristopher Herzog Work Phone: [facility]-Digestive [facility] Work Phone: Start: 12-28-2023 End: 12-28-2023 ambulatory DO Kristophervince Herzog Work Phone: [facility] Work Phone: Start: 12-14-2023 End: 12-14-2023 ambulatory DO Kristopher Belloman Work Phone: [facility] Work Phone: Start: 12-14-2023 End: 12-14-2023 Patient encounter procedure DO Kristopher Herzog Work Phone: [facility] Work Phone: Start: 12-07-2023 End: 12-07-2023 ambulatory DO Kristopher Herzog Work Phone: [facility] Work Phone: Start: 12-07-2023 End: 12-07-2023 Patient encounter procedure DO Kristophervince Herzog Work Phone: [facility] Work Phone: Start: 12-07-2023 End: 12-07-2023 ambulatory DO Kristophervince Herzog Work Phone: [facility] Work Phone: Start: 12-07-2023 End: 12-07-2023 Patient encounter procedure DO Kristopher Herzog Work Phone: [facility] Gastroenter[facility] Work Phone: Start: 11-09-2023 End: 11-09-2023 ambulatory DO Kristopher Herzog Work Phone: [facility] Work Phone: Start: 11-09-2023 End: 11-09-2023 Patient encounter procedure DO Kristopher Herzog Work Phone: [facility] Work Phone: Start: 10-05-2023 ([facility] R A/c) [facility] Re peat A/C Lauern Vance [facility] Start: 10-05-2023 End: 10-05-2023 ambulatory DO Kristopher Herzog Work Phone: [facility] Other Start: 10-05-2023 End: 10-05-2023 Discharged Recurring DO Krist[facility] Work Phone: Start: 09-29-2023 End: 09-29-2023 ambulatory Lauren Vance Other [facility] Other Start: 09-29-2023 Telephone encounter Lauren Vance [facility] Start: 09-24-2023 Telephone encounter Kimberly Berger LPN [facility] Start: 09-07-2023 ([facility] R A/c) [facility] Re peat A/C [facility] Start: 09-07-2023 End: 09-07-2023 ambulatory Rivers Sanner Other [facility] Other Start: 08-11-2023 ([facility] R A/c) [facility] A[facility] Start: 08-11-2023 End: 08-11-2023 ambulatory Rivers Sanner Other [facility] Other Start: 07-14-2023 ([facility] R A/c) [facility] Re peat A/C [facility] Start: 07-14-2023 End: 07-14-2023 ambulatory Rivers Sanner Other [facility] Other Start: 06-15-2023 ([facility] R A/c) [facility] Re peat A/C [facility] Start: 06-15-2023 End: 06-15-2023 ambulatory Tita Roberts Other [facility] Other Start: 06-03-2023 End: 06-03-2023 ambulatory DO Kristopher Herzog Work Phone: [facility] Work Phone: Start: 06-03-2023 End: 06-03-2023 Patient encounter procedure DO Kristopher Herzog Work Phone: [facility]-Ultrasound Cntr for Breast Car Start: 05-25-2023 Registered Recurring DO Manuela Belloman Work Phone: [facility] Work Phone: Start: 04-30-2023 ([facility] R A/c) [facility] Re peat A/C Lauren Fitt [facility] Start: 04-30-2023 End: 04-30-2023 ambulatory Lauren Fitt Other [facility] Other Start: 04-08-2023 ([facility] R A/c) [facility] Re peat A/C Kiersten [place] [facility] Start: 04-08-2023 End: 04-08-2023 ambulatory Kiersten Titus Other [facility] Other Start: 03-23-2023 ([facility] R A/c) [facility] Re peat A/C Kiersten Titus [facility] Start: 03-23-2023 End: 03-23-2023 ambulatory Kiersten [place] Other [facility] Other Start: 03-11-2023 ([facility] R A/c) [facility] Re peat A/C Kiersten Titus [facility] Start: 03-11-2023 End: 03-11-2023 ambulatory Kiersten [place] Other [employer] [facility] [employer] Other Start: 02-23-2023 ([facility] R A/c) [facility] Re peat A/C Kiersten Titus [facility] Start: 02-23-2023 End: 02-23-2023 ambulatory Kiersten Titus Other [employer] [facility] [employer] Other Start: 12-17-2022 End: 12-17-2022 ambulatory DO Kristopher Herzog Work Phone: [facility] Work Phone: Start: 12-17-2022 End: 12-17-2022 Departed Referred DO Kristopher Herzog Work Phone: [facility]-Lab [facility] Work Phone: Start: 12-15-2022 ambulatory Facility:[id number] Start: 12-13-2022 End: 12-15-2022 Evaluation and management of inpatient DO Kristopher Herzog Work Phone: [facility] Work Phone: Start: 12-13-2022 observation encounter DO Wilfrido Herzog Work Phone: [facility] Work Phone: Start: 12-10-2022 ([facility] R A/c) [facility] Re peat A/C Kiersten Titus [facility] Start: 12-10-2022 End: 12-10-2022 ambulatory Kierstenfredi Qureshi Other [facility] Other Start: 12-10-2022 Registered Recurring DO Manuela Herzog Work Phone: [facility] Work Phone: Start: 12-01-2022 End: 12-01-2022 ambulatory DO Kristopher Herzog Work Phone: [facility] Work Phone: Start: 12-01-2022 End: 12-01-2022 Patient encounter procedure DO Kristopher Herzog Work Phone: [facility] Work Phone: Start: 11-12-2022 ([facility] R A/c) [facility] Re peat A/C Kiersten Titus [facility] Start: 11-12-2022 End: 11-12-2022 ambulatory Kiersten Llamasber Other [facility] Other Start: 11-12-2022 Registered Recurring DO Manuela Herzog Work Phone: [facility] Work Phone: Start: 10-15-2022 ([facility] R A/c) [facility] Re peat A/C Kiersten [place] [facility] Start: 10-15-2022 End: 10-15-2022 ambulatory Kiersten Titus Other [facility] Other Start: 09-29-2022 End: 09-29-2022 ambulatory Lauren Paredest Other [facility] Other Start: 09-29-2022 Telephone encounter Lauren Vance [facility] Start: 09-23-2022 End: 09-23-2022 Emergency department patient visit DO Kristopher Herzog Work Phone: [facility]-Emergency Room Work Phone: Start: 09-17-2022 ([facility] R A/c) [facility] Re peat A/C Kiersten [place] [facility] Start: 09-17-2022 End: 09-17-2022 ambulatory Kiersten Titus Other [facility] Other Start: 09-17-2022 Registered Recurring DO Manuela Herzog Work Phone: [facility] Work Phone: Start: 09-01-2022 End: 09-01-2022 ambulatory Lauren Paredest Other [facility] Other Start: 09-01-2022 Telephone encounter Lauren Vance [facility] Start: 08-20-2022 ([facility] R A/c) [facility] Re peat A/C Kiersten Titus [facility] Start: 08-20-2022 End: 08-20-2022 ambulatory Kiersten Titus Other [facility] Other Start: 07-24-2022 ([facility] R A/c) [facility] Re peat A/C Olu Anju [facility] Start: 07-24-2022 End: 07-24-2022 ambulatory Olu Rene Other [facility] Other Start: 07-16-2022 End: 07-16-2022 Emergency department patient visit DO Kristopher Herzog Work Phone: [facility]-Emergency Room Start: 06-26-2022 ([facility] R A/c) [facility] Re peat A/C Lauren Reggiet [facility] Start: 06-26-2022 End: 06-26-2022 ambulatory Lauren Reggiet Other [facility] Other Start: 06-26-2022 Registered Recurring DO Manuela Herzog Work Phone: [facility] Start: 06-23-2022 End: 06-23-2022 ambulatory DO Kristopher Herzog Work Phone: [facility] Work Phone: Start: 06-23-2022 End: 06-23-2022 Patient encounter procedure DO Kristopher Herzog Work Phone: [facility]-Ultrasound Main [facility] Start: 06-09-2022 End: 06-09-2022 Patient encounter procedure DO Kristopher Herzog Work Phone: [facility]-Ultrasound Cntr for Breast Car Start: 06-05-2022 ([facility] R A/c) [facility] Re peat A/C Lauren Fitt [facility] Start: 06-05-2022 End: 06-05-2022 ambulatory Tang Mcclellan Other [facility] Other Start: 06-05-2022 Telephone encounter Tang Santana [facility] G[facility] Start: 06-05-2022 Registered Recurring DO Manuela Herzog Work Phone: [facility] [facility] Start: 06-04-2022 End: 06-04-2022 Discharged Recurring DO Kristopher Herzog Work Phone: [facility]-Infusion Therapy - O/P Start: 05-29-2022 End: 05-29-2022 ambulatory DO Kristopher Herzog Work Phone: [facility] Work Phone: Start: 05-29-2022 End: 05-29-2022 Patient encounter procedure DO Kristopher Herzog Work Phone: [facility]-Lab Main [facility] Start: 05-29-2022 Registered Recurring DO Manuela Herzog Work Phone: [facility]-Infusion Therapy - O/P Start: 05-22-2022 Registered Recurring DO Manuela Herzog Work Phone: [facility] Start: 05-22-2022 ([facility] R A/c) [facility] Re peat A/C Lauren Fitt [facility] Start: 05-22-2022 End: 05-22-2022 ambulatory Lauren Fitt Other [facility] Other Start: 05-20-2022 End: 05-20-2022 Patient encounter procedure DO Kristopher Herzog Work Phone: [facility]-Lab Main [facility] Start: 05-06-2022 ([facility] R A/c) [facility] Re peat A/C Lauren Fitt [facility] Start: 05-06-2022 End: 05-06-2022 ambulatory Lauren Fitt Other [facility] Other Start: 04-08-2022 ([facility] R A/c) [facility] Re peat A/C Lauren Fitt [facility] Start: 04-08-2022 End: 04-08-2022 ambulatory Lauren Fitt Other [facility] Other Start: 03-13-2022 ([facility] R A/c) [facility] Re peat A/C Lauren Fitt [facility] Start: 03-13-2022 End: 03-13-2022 ambulatory Lauren Fitt Other [facility] Other Start: 02-28-2022 End: 02-28-2022 Patient encounter procedure DO Kristopher Herzog Work Phone: [facility] Start: 02-27-2022 ([facility] R A/c) [facility] Re peat A/C Lauren Fitt [facility] Start: 02-27-2022 End: 02-27-2022 ambulatory Lauren Fitt Other [facility] Other Start: 02-26-2022 End: 02-26-2022 Patient encounter procedure DO Kristopher Polo Phone: [facility]-Pre-Surgical Testing Start: 02-17-2022 ([facility] R A/c) [facility] Re peat A/C Lauren Fitt [facility] Start: 02-17-2022 End: 02-17-2022 ambulatory Lauren Fitt Other [facility] Other Start: 02-11-2022 End: 02-11-2022 ambulatory Antonio Thompson Other Offsite Care Resources Other Start: 02-11-2022 Telephone encounter Antonio Thompson [facility] G[facility] Start: 01-28-2022 End: 01-28-2022 ambulatory Tang Mcclellan Other Offsite Care [facility] Other Start: 01-28-2022 Office outpatient vi sit 15 minutes Tang Mcclellan [facility] Start: 01-21-2022 ([facility] R A/c) [facility] Re peat A/C Lauren Fitt [facility] Start: 01-21-2022 End: 01-21-2022 ambulatory Lauren Fitt Other [facility] Other Start: 01-09-2022 End: 01-09-2022 ambulatory Tang Henrietta Other [facility]site [facility] Other Start: 01-09-2022 Telephone encounter Tang Santana [facility] Start: 01-06-2022 ([facility] R A/c) [facility] Re peat A/C Lauren Fitt [facility] Start: 01-06-2022 End: 01-06-2022 ambulatory Lauren Fitt Other [facility] Other Start: 12-23-2021 ([facility] R A/c) [facility] Re peat A/C Lauren Fitt [facility] Start: 12-23-2021 End: 12-23-2021 ambulatory Lauren Fitt Other [facility] Other Start: 12-11-2021 ([facility] R A/c) [facility] Re peat A/C Lauren Fitt [facility] Start: 12-11-2021 End: 12-11-2021 ambulatory Lauren Fitt Other [facility] Other Start: 11-28-2021 End: 11-28-2021 ambulatory Tang Mcclellan Other Offsite [facility] Other Start: 11-28-2021 Telephone encounter Tang Santana [facility] Start: 11-27-2021 ([facility] R A/c) [facility] Re peat A/C Lauren Fitt [facility] Start: 11-27-2021 End: 11-27-2021 ambulatory Lauren Fitt Other [facility] Other Start: 11-25-2021 End: 11-25-2021 ambulatory Lauren Fitt Other [facility] Other Start: 11-25-2021 Telephone encounter Lauren Fitt [facility] Start: 11-14-2021 End: 11-14-2021 ambulatory Lauren Fitt Other [facility] Other Start: 11-14-2021 Telephone encounter Lauren Fitt [facility] Start: 11-12-2021 ([facility] R A/c) [facility] Re peat A/C Lauren Fitt [facility] Start: 11-12-2021 End: 11-12-2021 ambulatory Lauren Fitt Other [facility] Other Start: 10-31-2021 ([facility] R A/c) [facility] Re peat A/C Lauren Fitt [facility] Start: 10-31-2021 End: 10-31-2021 ambulatory Lauren Fitt Other [facility] Other Start: 10-14-2021 ([facility] R A/c) [facility] Re peat A/C Lauren Fitt [facility] Start: 10-14-2021 End: 10-14-2021 ambulatory Lauren Fitt Other [facility] Other Start: 10-08-2021 End: 10-08-2021 ambulatory Lauren Fitt Other [facility] Other Start: 10-08-2021 Telephone encounter Lauren Fitt [facility] Start: 09-30-2021 ([facility] R A/c) [facility] Re peat A/C Lauren Fitt [facility] Start: 09-30-2021 End: 09-30-2021 ambulatory Lauren Fitt Other [facility] Other Start: 09-12-2021 ([facility] R A/c) [facility] Re peat A/C Lauren Fitt [facility] Start: 09-12-2021 End: 09-12-2021 ambulatory Lauren Fitt Other [facility] Other Start: 08-29-2021 ([facility] R A/c) [facility] Re peat A/C Lauren Fitt [facility] Start: 08-29-2021 End: 08-29-2021 ambulatory Lauren Fitt Other [facility] Other Start: 08-15-2021 ([facility] R A/c) [facility] Lauren Fitt [facility] Start: 08-15-2021 End: 08-15-2021 ambulatory Lauren Fitt Other [facility] Other Start: 08-01-2021 ([facility] R A/c) [facility] Re peat A/C Lauren Fitt [facility] Start: 08-01-2021 End: 08-01-2021 ambulatory Lauren Fitt Other [facility] Other Start: 07-15-2021 ([facility] R A/c) [facility] Re peat A/C Lauren Fitt [facility] Start: 07-15-2021 End: 07-15-2021 ambulatory Lauren Fitt Other [facility] Other Start: 07-03-2021 ([facility] R A/c) [facility] Re peat A/C Lauren Fitt [facility] Start: 07-03-2021 End: 07-03-2021 ambulatory Lauren Fitt Other [facility] Other Start: 07-03-2021 Telephone encounter Antonio Peña [facility] Start: 06-19-2021 ([facility] R A/c) [facility] Re peat A/C Lauren Fitt [facility] Start: 05-28-2021 ([facility] R A/c) [facility] Re peat A/C Lauren Fitt [facility] Start: 05-21-2021 Telephone encounter Lauren Reggiet Trice [facility] Start: 05-15-2021 ([facility] R A/c) [facility] Re peat A/C Luaren Fitt [facility] Start: 05-15-2021 Telephone encounter Lauren Fitt [facility] Procedures Date Procedure Procedure Detail Performing Clinician Start: 03-07-2025 Radex foot complete minimum 3 views Marlon Branham DPM Work Phone: Start: 02-16-2025 Radex foot complete minimum 3 views Marlon Branham DPM Work Phone: Start: 02-13-2025 Radiologic examinati on knee 3 views Venita Marques [employer] Work Phone: Start: 01-11-2025 ALL CBC WITH AUTO DIFF Kristopher Herzog DO Work Phone: Start: 01-05-2025 ALL BASIC METABOLIC PANEL Kristopher Herzog DO Work Phone: Start: 12-07-2024 End: 12-07-2024 Mammography Kristopher Herzog DO Work Phone: Start: 06-17-2024 Comprehensive metabo lic panel Adam Ephraim Rodriguez [employer] Work Phone: Start: 06-17-2024 Lipid panel Adam Ephraim Rodriguez [employer] Work Phone: Start: 06-17-2024 SPECIMEN STATUS REPORT Adam Ye Sarah [employer] Work Phone: Start: 04-29-2024 Mammography Radha It [...] X-ray of right femur DO Kristopher Herzog [facility] Phone: Start: 06-23-2022 Duplex scan of lower limb veins DO Kristopher Herzog Work Phone: Start: 06-09-2022 Ultrasonography of l eft breast DO Kristopher Herzog [facility] Phone: Start: 02-28-2022 Esophageal manometry DO Kristopher Herzog [facility] Phone: Start: 07-05-2016 Colonoscopy Kimberly Ramirez blake LPN Plan of Treatment Date Care Activity Detail Author Start: 12-27-2033 Screening for malign ant neoplasm of colon [facility] Start: 07-05-2026 Screening for malign ant neoplasm of colon [facility] Start: 01-09-2026 Medicare Annual Well ness (AWV) Medicare Annual Wellness (AWV) [facility] Start: 12-21-2025 End: 12-21-2025 Patient encounter procedure [facility] Start: 12-07-2025 Screening for malign ant neoplasm of breast Mammogram [facility] Start: 07-26-2025 End: 07-26-2025 Patient encounter procedure 07/26/2025 8:00 AM EST Procedure Visit [facility] [address] [place] [address] Marlon Branham DPM [address] [place] [address] [facility] Start: 06-17-2025 Urine screening for protein Diabetes: Urine Protein Screening [facility] Start: 06-07-2025 End: 06-07-2025 Patient encounter procedure [facility] Start: 06-02-2025 Glaucoma screening Diabetes: R etinopathy Screening [facility] Start: 05-10-2025 End: 05-10-2025 Patient [...] NEENA MATHEW [address] [place] [address] Brandy Salmeron DO [address] [place] [id number] [facility] Start: 03-14-2025 End: 03-14-2025 Patient encounter procedure 03/14/2025 9:00 AM EDT Office Visit [facility] [address] [place] [phone] Branham, Marlon H, DPM [address] [place] [address] [facility] Start: 03-09-2025 End: 03-09-2025 Patient encounter procedure [facility] Comment on above: Acute pain of left k nee (Primary Dx); Primary osteoarthritis of left knee Start: 03-07-2025 End: 03-07-2025 Patient encounter procedure [facility] Comment on above: Arrived Start: 03-04-2025 Urine screening for protein Diabetes: Urine Protein Screening [facility] Start: 02-01-2025 End: 02-01-2025 Patient encounter procedure 02/01/2025 8:30 AM EDT Procedure Visit [facility] [address] [place] [address] Marlon Branham Olman, DPM [address] [place] [address] [facility] Start: 01-09-2025 End: 01-09-2025 Patient encounter procedure [facility] Comment on above: Arrived [...] [address] [place] [phone] Radha Verduzco, DO [address] [place] [address] [facility] Start: 12-14-2024 End: 12-14-2024 Patient encounter procedure 12/14/2024 8:45 AM EDT Office Visit [facility] [address] [place] [address] Kristopher Herzog, DO [address] [place] [address] Arrived [facility] Comment [...] Well ness (AWV) Medicare Annual Wellness (AWV) [facility] Start: 10-31-2024 End: 10-31-2024 Patient encounter procedure 10/31/2024 8:00 AM EDT Procedure Visit [facility] [address] [place] [address] Marlon Branham DPM [address] [place] [address] [facility] Start: 10-25-2024 End: 01-25-2025 [...] procedure 10/03/2024 8:45 AM EST Office Visit [facility] [address] [place] [phone] Kristopher Herzog DO [address] [place] [address] [facility] Start: 09-24-2024 End: 12-21-2024 Basic metabolic 1998 panel - Serum or Plasma Basic metabolic panel Lab Routine Primary hypertension (CMS/HCC) Diabetic peripheral neuropathy associated with type 2 diabetes mellitus ([facility]/HCC) Expected: 09/24/2024, Expires: 12/21/2024 [facility] Comment [...] 09/23/2024 8:30 AM EST Office Visit [facility] [address] [place] [address] Kristopher Herzog, DO [address] [place] [address] [facility] Start: 09-17-2024 Hemoglobin A1c measurement Diabetes: Hemoglobin A1C [facility] Start: 09-08-2024 Screening for malign ant neoplasm of colon [facility] Start: 08-01-2024 End: 08-01-2024 Patient encounter procedure [facility] Comment on above: Arrived Start: 06-22-2024 End: 06-22-2024 Patient encounter procedure 06/22/2024 8:45 AM EDT Office Visit [facility] [address] [place] [address] Kristopher Herzog, DO [address] [place] [address] [facility] Start: 06-09-2024 End: 06-09-2024 Patient encounter procedure 06/09/2024 9:00 AM EDT Office Visit [facility] [address] [place] [address] Kristopher Herzog, DO [address] [place] [address] [facility] Start: 06-04-2024 Hemoglobin A1c measurement Diabetes: Hemoglobin A1C [facility] Start: 04-29-2024 End: 04-29-2024 Patient encounter procedure 04/29/2024 9:00 AM EDT [facility] [address] [place] [address] Radha Verduzco, DO [address] [place] [address] [facility] Start: 04-24-2024 Influenza vaccination Influenza Vacc ine (#1) [facility] Start: 01-06-2024 End: 01-06-2024 Patient encounter procedure 01/06/2024 10:45 AM EDT [facility] [address] [place] [phone] Kristopher Herzog, DO [address] [place] [address] [facility] Start: 12-31-2023 Medicare Annual Well ness (AWV) Medicare Annual Wellness (AWV) [facility] Start: 12-28-2023 [facility] Start: 12-21-2023 End: 12-21-2023 Patient encounter procedure 12/21/2023 1:15 PM EDT Office Visit [facility] [address] [place] [phone] Radha Verduzco, DO [address] [place] [address] [facility] Start: 12-16-2023 End: 12-16-2023 Patient encounter procedure 12/16/2023 10:15 AM EDT Procedure [facility] [address] [place] [address] Marlon Branham DPM [address] [place] [address] [facility] Start: 12-04-2023 Hemoglobin A1c measurement Diabetes: Hemoglobin A1C [facility] Start: 12-02-2023 Screening for malign ant neoplasm of breast Mammogram [facility] Start: 10-13-2023 End: 10-13-2023 Patient encounter procedure 10/13/2023 2:45 PM EST Office Visit [facility] [address] [place] [address] Branham, Amrlon H, DPM [address] [place] [address] [facility] Start: 12-15-2022 [facility] Start: 12-14-2022 Blood chemistry [facility] Start: 12-14-2022 End: 12-14-2022 [facility] Start: 12-13-2022 [facility] Start: 12-13-2022 Computed tomography of abdomen and pelvis with contrast CT abdomen pelvis w con [facility] Start: 12-13-2022 End: 12-13-2022 [facility] Start: 12-13-2022 Physical therapy procedure [facility] Start: 12-13-2022 Referral to occupati onal therapist [facility] Start: 12-13-2022 Hospital admission [facility] Start: 09-23-2022 Bacteria identified in Urine by Culture [facility] Start: 06-23-2022 Duplex scan of lower limb veins US venous duplex LE RT [facility] Start: 06-23-2022 US Lower extremity v ein - right [facility] Start: 02-28-2022 [facility] Start: 05-18-2020 Screening for malign ant neoplasm of colon [facility] Start: 1950 Screening for malign ant neoplasm of colon [facility] Patient Education [facility] Work Phone: Patient referral [facility] Work Phone: [facility] Immunizations Immunization Date Immunization Notes Care Provider Fa [facility] 06-22-2024 Seasonal trivalent influenza vaccine, adjuvanted, preservative free Adam Rodriguez [employer] Work Phone: [facility] 06-22-2024 influenza virus vaccine, unspecified formulation Venita Marques MANAGER [employer] Work Phone: [facility] 10-08-2023 RSV, recombinant, protein subunit RSVpreF, adjuvant reconstitu, 120mcg/0.5mL, PF (Arexvy) Marlon Branham DPM Work Phone: [facility] 05-29-2023 Influenza, High-dose Seasonal, Quadrivalent, Preservative Free Kimberly Ko [employer] [facility] 05-29-2023 influenza virus vaccine, unspecified formulation Marlon Branham DPM Work Phone: [facility] 05-27-2023 influenza virus vaccine, unspecified formulation Kimberly Ko [employer] [facility] 05-21-2022 influenza, high dose seasonal, preservative-free Kimberly Ko [employer] [facility] 12-04-2021 Pneumococcal Conjuga te PCV 20 Kimberly Ko [employer] [facility] 05-31-2021 influenza, high dose seasonal, preservative-free Kimberly Ko [employer] [facility] 11-14-2020 COVID-19 mRNA-1273 (Moderna) DO Kristopher Herzog Work Phone: [facility] 10-17-2020 COVID-19 mRNA-1273 (Moderna) DO Kristopher Herzog Work Phone: [facility] 07-26-2020 Seasonal trivalent influenza vaccine, adjuvanted, preservative free Kimberly Ko [employer] [facility] 12-26-2019 KENALOG - 10 mg Lauren Fitt Other [employer] [facility] [employer] Other 08-22-2019 KENALOG - 10 mg Lauren Fitt Other [facility] Other 05-17-2019 Seasonal trivalent influenza vaccine, adjuvanted, preservative free Kimberly Ko [employer] [facility] 01-14-2019 pneumococcal polysaccharide vaccine, 23 valent Lauren Fitt Other [facility] Other 11-05-2018 KENALOG - 10 mg Lauren Fitt Other [facility] Other 05-14-2018 influenza virus vaccine, unspecified formulation DO Kristopher Herzog Work Phone: [facility] 05-14-2018 influenza, high dose seasonal, preservative-free Lauren Fitt Other [facility] [employer] Other 06-12-2017 influenza virus vaccine, unspecified formulation DO Kristopher Herzog Work Phone: [facility] 06-12-2017 influenza, injectabl e, quadrivalent, preservative free Kimberly Ko [employer] [facility] 06-12-2017 influenza, high dose seasonal, preservative-free Lauren Fitt Other [facility] [employer] Other 06-26-2016 influenza virus vaccine, unspecified formulation DO Kristopher Herzog Work Phone: [facility] 06-26-2016 influenza, high dose seasonal, preservative-free Lauren Fitt Other [facility] [employer] Other 07-06-2015 pneumococcal conjuga te vaccine, 13 valent Kimberly Ko [employer] [facility] 06-15-2015 seasonal influenza, intradermal, preservative free Kimberly Ko [employer] [facility] 10-27-2014 KENALOG - 10 mg Lauren Fitt Other [facility] [employer] Other 10-15-2014 KENALOG - 10 mg Lauren Fitt Other [facility] [employer] Other 05-29-2014 influenza virus vaccine, unspecified formulation DO Kristopher Herzog Work Phone: [facility] 05-29-2014 influenza, high dose seasonal, preservative-free Lauren Fitt Other [facility] [employer] Other 08-24-2013 zoster vaccine, live Kimberly Ko [employer] [facility] 04-26-2013 influenza virus vaccine, unspecified formulation DO Kristopher Herzog Work Phone: [facility] 04-26-2013 influenza, seasonal, injectable, preservative free Kimberly Ko [employer] [facility] 04-26-2013 influenza, high dose seasonal, preservative-free Lauren Vance Other [employer] [facility] [employer] Other 04-26-2013 influenza, injectabl e, quadrivalent, preservative free Kiersten Qureshi Other [facility] Other 07-28-2012 seasonal influenza, intradermal, preservative free Kimberly Ko [employer] [facility] 06-30-2011 pneumococcal polysaccharide vaccine, 23 valent Kimberly Ko [employer] [facility] 05-20-2011 seasonal influenza, intradermal, preservative free Kimberly Ko [employer] [facility] Payers Date Payer Category Payer Unknown [id number] 2023 Self-pay [id number] 2021 Medicare [id number] [id number] 2021 Medicare (Managed Care) 1.2. [id number] 2021 Unknown [employer] [id number] 2021-Present [address] [place] [address] [id number]. [id number] 2021 Unknown [id number] 2.16.840.1.661652.19 1950 Unknown [id number] 2.16.840.1.255257.3.579.2. 356 1950 Unknown [id number] 2.16.840.1.032616.3.579.2. 1259 1951 Unknown [id number] 2.16.840.1.879176.3.579.2. 1259 1951 Unknown [id number] 2.16.840.1.651009.3.579.2. 1259 1951 Unknown [id number] 2.16.840.1.325872.3.579.2. 125 1951 Unknown [id number] 2.16.840.1.224897.3.579.2. 1259 1951 Unknown [id number] 2.16.840.1.401594.3.579.2. 125 1951 Unknown [id number] 2.16.840.1.763262.3.579.2. 125 1951 Unknown [id number] 2.16.840.1.774917.3.579.2. 1258 1951 Unknown [id number] 2.16.840.1.011370.3.579.2. 1258 1951 Unknown [id number] 2.16.840.1.840021.3.579.2. 125 1951 Unknown [id number] 2.16.840.1.476830.3.579.2. 1258 1951 Unknown [id number] 2.16.840.1.731460.3.579.2. 1258 1951 Unknown [id number] 2.16.840.1.660249.3.579.2. 125 1951 Unknown [id number] 2.16.840.1.765169.3.579.2. 125 1951 Unknown [id number] 2.16.840.1.821945.3.579.2. 125 1951 Unknown [id number] 2.16.840.1.268382.3.579.2. 125 1951 Unknown [id number] 2.16.840.1.731375.3.579.2. 125 1951 Unknown [id number] 2.16.840.1.310900.3.579.2. 1259 1951 Unknown [id number] 2.16.840.1.334050.3.579.2. 1259 1951 Unknown [id number] 2.16.840.1.111368.3.579.2. 1259 1951 Unknown [id number] 2.16.840.1.849482.3.579.2. 1259 1951 Unknown [id number] 2.16.840.1.266213.3.579.2. 1259 1951 Unknown [id number] 2.16.840.1.487358.3.579.2. 1259 1951 Unknown [id number] 2.16.840.1.349636.3.579.2. 1259 Medicare Medicare [id number] Medicare Anthem MCR PFFS [id number] Unknown HCAP/HFA/FAP Active [id number] 2.16.840.1.364416.3.579.2. 531 Unknown [id number] 2.16840.1.133201.3.579.2. 531 Unknown [id number] 2.16840.1.762375.3.579.2. 531 Social History Date Type Detail Facility Start: 09-08-2023 End: 01-09-2025 Sex Assigned At [facility] Other Start: 11-23-2021 End: 10-07-2024 Tobacco smoking status NHIS Ex-smoker (finding) [facility] Start: 1950 Sex Assigned At Female [facility] Start: 07-16-2022 End: 09-08-2023 Tobacco smoking status NHIS Never smoked tobacco (finding) [facility] History of tobacco use Passive smoker [...] Start: 07-04-2024 End: 02-01-2025 Sex Female (finding) [facility] Medical Equipment Procedure Code Equipment Code [...] SELF DRILL ING 3.8X14MM FDA Start: 06-18-2017 [id number] Start: 08-20-2022 1 each by Other route in the morning and 1 each at noon and 1 each in the evening and 1 each before bedtime. [id number] USE TO TEST BLOO D SUGAR 3 TIMES DAILY DIRECTED [id number] Start: 06-13-2023 USE TO TEST BLOO D SUGAR THREE TIMES A DAY DIRECTED [id number] Start: 06-13-2023 BONE 5MM DUO FDA Start: [...] D SUGAR THREE TIMES A DAY DIRECTED [id number] Start: 11-09-2023 USE TO TEST BLOO D SUGAR 3 TIMES DAILY DIRECTED [id number] Start: 11-09-2023 BONE 5MM DUO FDA Start: [...] D SUGAR 3 TIMES A DAY DIRECTED [id number] Start: 01-26-2025 Inject 1 each un momo the skin in the morning and 1 each before bedtime. Use as instructed. [id number] Start: 01-30-2025 BONE 5MM DUO FDA Start: 06-18-2017 BONE 5MM DUO FDA Start: 06-18-2017 PLATE WELSL 2 LE KIARA 32MM DEPUY FDA Start: [...] Hospital 12-15-2022 Functional status Patient at Baseline [facility] Work Phone: [facility] Mental Status Date Assessment Result Facility 12-15-2022 Cognitive function Cognitive Sta tus Patient at Baseline [facility] Work Phone: Clinical Notes 05-15-2021 [...] deformity. Surgery was performed on 03/03/2025 at [facility]. Patient complains of pain 0. [...] deformity. Surgery was performed on 03/03/2025 at [facility]. Patient complains of pain 0. [...] deformity. Surgery was performed on 03/03/2025 at [facility]. Patient complains of pain 0. [...] did also fabricate a toe spacer from [employer] to help prevent rubbing and dislocation of [...] deformity. Surgery was performed on 03/03/2025 at [facility]. Patient complains of pain 0. [...] place. Updated orders placed for HHC with [facility]. She was also advised on use of [...] deformity. Surgery was performed on 03/03/2025 at [facility]. Patient complains of pain 0. [...] I will order dressing changes with her [facility] nurse. Patient was also advised on [...] pain management, which could be scheduled in [place] as she transitions to Dr. Walden. Significant [...] requiring urgent evaluation. Visit was preformed using [email or web address] patrol pilot speech recognition. documented in this encounter [facility] 03-07-2025 History of Present illness Narrative HPI: Nicol Frances presents today for post-op appointment of correction right hallux deformity. Surgery was performed on 03/03/2025 at [facility]. Patient complains of pain 0. [...] I ordered an EKG for her. Called [facility] and [facility] for results. [facility] doesn't have anything after January 2024. [facility] has lab work from December 2024, which we have, and a EKG from October 2024 that they are sending over now. No other results available. I looked on clinisync and do not see labs or an EKG has she done any for her persurgical testing? Please call [facility] and see if we can request recent labs and EKG. I believe she had done her presurgical testing labs there. She is scheduled for 03/[address] Branham. documented in this encounter [facility] 02-22-2025 Telephone encounter Note Called [facility] and [facility] for results. [facility] doesn't have anything after January 2024. [facility] has lab work from December 2024, which we have, and a EKG from October 2024 that they are sending over now. No other results available. [facility] 02-22-2025 Telephone encounter Note I looked on clinisync and do not see labs or an EKG has she done any for her persurgical testing? [facility] 02-22-2025 Telephone encounter Note Please call [facility] and see if we can request recent labs and EKG. I believe she had done her presurgical testing labs there. She is scheduled for 03/[address] Branham. T [facility] 02-16-2025 History of Present illness Narrative Images from the original note were not included. HPI: Patient presents today for their pre-operative appointment. The patient is scheduled for correction right hallux deformity at [facility] with Dr. Branham on 03/03/2025 at 11:45 [...] disc without myelopathy DVT (deep venous thrombosis) ([facility]) Encounter for current long-term use of 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s Erythema nodosum Essential hypertension, benign Generalized osteoarthrosis unspecified site Hallux hammertoe, left Hallux hammertoe, right Hallux malleus of right foot Hearing loss Hepatitis B Hyperlipidemia, unspecified Obstructive sleep apnea (adult) (pediatric) Orthostatic hypotension Osteoarthritis of knee 12/22/2019 PE (pulmonary thromboembolism) ([facility]) 04/21/2023 Primary osteoarthritis of first carpometacarpal joint of right hand Spinal stenosis in cervical region Type II or unspecified type diabetes mellitus with neurological manifestations, uncontrolled(250.62) ([facility]) Ulcerative colitis (HCC) Unspecified Ulcerative colitis (HCC) [...] A DAY 30 g 3 Continuous Glucose Speech Therapy Assistant (FreeStyle Carline 3 Bingham) device USE I DEVICE CONTINUOUSLY 1 each [...] evening and 1 each before bedtime. Lancets ([employer] Delica Plus [id number]) [facility] [place] Patient was dispensed their postoperative prescriptions including: [place]. A post-operative shoe was also dispensed for [...] before. She has not previously consulted an retail selling specialist. Her home health nurse visits her [...] times daily, to affected area Continuous Glucose Speech Therapy Assistant (FreeStyle Carline 3 Bingham) device USE I DEVICE CONTINUOUSLY Continuous Glucose [...] 4 times daily Lancets (OneTouch Delica Plus [id number]) misc USE TO TEST BLOOD SUGAR 3 [...] mellitus (HCC) Gastroesophageal reflux disease Hypercoagulable state ([facility]) half-way current use of 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 half-way current use of insulin ([facility]) Facet arthritis of lumbosacral region OAB (overactive bladder) Class 1 obesity Spinal stenosis Osteoarthritis of spine with radiculopathy, cervical region Spondylosis of lumbar region without myelopathy or radiculopathy Ulcerative colitis ([facility]) Therapeutic drug monitoring Primary osteoarthritis of right knee Axillary lymphadenopathy Type 2 diabetes mellitus with chronic kidney disease, with long-term current use of insulin ([facility]) Review of Systems Constitutional: Negative for chills, [...] out other underlying conditions. - Referral to retail selling specialist for further evaluation and pain management. [...] pulmonary embolism acute March 09, 2025 10:19am [facility] Work Phone: 1(477) 930-213505-14-2025 Evaluation note* Diagnosis Onset Date Resolution Status [...] pulmonary embolism acute March 13, 2025 8:29am [facility] Work Phone: 1([phone]) 342-966005-14-2025 Evaluation note* Diagnosis Onset Date Resolution Status [...] pulmonary embolism acute March 17, 2025 8:40am [facility] Work Phone: 1(522) 759-815004-25-2025 History of Present illness Narrative* Radha Verduzco, [...] ointment Topical, 2 times daily Continuous Glucose Speech Therapy Assistant (FreeStyle Carline 3 Bingham) device USE I DEVICE CONTINUOUSLY Continuous Glucose [...] device 1 each, 4 times daily Lancets ([employer]Touch Delica Plus [id number]) [facility] [place] [place] disease Other specified forms Colitis Cough Depression ([facility]/HCC) Depressive disorder ([facility]) not elsewhere classified Displacement of lumbar intervertebral disc without myelopathy DVT (deep venous thrombosis) ([facility]) Encounter for current long-term use of 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s Erythema nodosum Essential hypertension, benign ([facility]) Generalized osteoarthrosis unspecified site Hallux hammertoe, left Hallux hammertoe, right Hallux malleus of right foot Hearing loss Hepatitis B Hyperlipidemia, unspecified ([facility]) Obstructive sleep apnea (adult) (pediatric) Orthostatic hypotension Osteoarthritis of knee 12/22/2019 PE (pulmonary thromboembolism) ([facility]) 04/21/2023 Primary osteoarthritis of first carpometacarpal joint of right hand Spinal stenosis in cervical region Type II or unspecified type diabetes mellitus with neurological manifestations, uncontrolled(250.62) ([facility]) Ulcerative colitis Unspecified Ulcerative colitis Other ulcerative colitis Ulcerative colitis Vasculitis ([facility]) 04/24/2021 Venous embolism and thrombosis unspecified deep [...] Exam Vitals reviewed. Exam conducted with a lead loader present. HENT: Head: Normocephalic. Eyes: Pupils: Pupils [...] for that visit. documented in this encounterChristian [id number] Evaluation note* Diagnosis Onset Date Resolution Status [...] pulmonary embolism acute February 01, 2025 9:46am [facility] Work Phone: 1([phone]) 469-319104-09-2025 Evaluation note* Diagnosis Onset Date Resolution Status [...] pulmonary embolism acute February 22, 2025 8:35am [facility] Work Phone: 1([phone]) [phone] Evaluation note* Diagnosis Onset Date Resolution Status [...] pulmonary embolism acute January 04, 2025 8:39am [facility] Work Phone: [phone]) 604-189603-04-2025 History of Present illness Narrative* Venita Marques, MANAGER VALIDATION - 10/25/2024 2:00 PM EST Images from [...] ointment Topical, 2 times daily Continuous Glucose Speech Therapy Assistant (FreeStyle Carline 3 Bingham) device 1 Device, Does not apply, Continuous Continuous Glucose Sensor (FreeStyle Carline 3 Sensor) misc 1 Device, Does not apply, Every 14 days glucose blood (OneTouch Verio) test strip USE TO TEST BLOOD SUGAR THREE TIMES A DAY DIRECTED Lancet Devices (Autolet) lancing device 1 each, 4 times daily Lancets (OneTouch Delica Plus [id number]) misc USE TO TEST BLOOD SUGAR 3 [...] apnea syndrome Steatosis of liver HTN (hypertension) ([facility]) Peripheral venous insufficiency Anxiety disorder Chronic deep vein thrombosis (DVT) of femoral vein of left lower extremity ([facility]) 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 machines and devices Diabetic peripheral neuropathy associated with type 2 diabetes mellitus ([facility]) Gastroesophageal reflux disease Hypercoagulable state (CMS/HCC) half-way current use of 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 half-way current use of insulin (CMS/[facility]) Facet arthritis of lumbosacral region OAB (overactive bladder) Class 1 obesity Spinal stenosis Osteoarthritis of spine with radiculopathy, cervical region Spondylosis of lumbar region without myelopathy or radiculopathy Ulcerative colitis ([facility]) Therapeutic drug monitoring Primary osteoarthritis of right [...] Venita Marques NP documented in this encounterChristian [id number] Evaluation note* Diagnosis Onset Date Resolution Status [...] pulmonary embolism acute November 30, 2024 8:37am [facility] Work Phone: [phone]) 867-981801-17-2025 Evaluation note* Diagnosis Onset Date Resolution Status [...] pulmonary embolism acute November 02, 2024 8:51am [facility] Work Phone: [phone]) 812-398601-17-2025 Evaluation note* Diagnosis Onset Date Resolution Status [...] pulmonary embolism acute November 30, 2024 8:37am [facility] Work Phone: 1([phone]) 221-972412-11-2024 Evaluation note* Diagnosis Onset Date Resolution Status [...] pulmonary embolism acute October 05, 2024 8:36am [facility] Work Phone: [phone]) [phone] Evaluation note* Diagnosis Onset Date Resolution Status [...] Crohn's colitis acute October 07, 2024 9:04am [facility] Work Phone: [phone]) 492-874712-09-2024 History of Present illness Narrative* Marlon Thurman [...] her next appointment. documented in this encounterChristian [id number] Evaluation note* Diagnosis Onset Date Resolution Status Admit Date Crohn's colitis acute June 29, 2024 10:28am Internal hemorrhoids acute [facility] 2023 10:28am History of DVT [...] pulmonary embolism acute September 09, 2024 8:43am [facility] Work Phone: 1(250) [phone] History of Present illness Narrative* Adam Rodriguez, [...] ointment Topical, 2 times daily glucose blood ([employer] Verio) test strip USE TO TEST BLOOD SUGAR THREE TIMES A DAY DIRECTED insulin aspart protamine-insulin aspart (NovoLOG Mix 70-30) (70-30) 100 UNIT/ML injection 12 Units,Subcutaneous, 2 times daily with meals Lancet Devices (Autolet) lancing device 1 each, 4 times daily Lancets (OneTouch Delica Plus [id number]) misc USE TO TEST BLOOD SUGAR 3 [...] all orders for this visit: Primary hypertension ([facility]/HCC) - Basic metabolic panel; Future Mixed hyperlipidemia ([facility]) -at goal with lipitor and zetia Obstructive sleep apnea syndrome -wears c-pap Peripheral venous insufficiency -chronic left leg edema from previous DVT Chronic deep vein thrombosis (DVT) of femoral vein of left lower extremity ([facility]) 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 machines and devices Diabetic peripheral neuropathy associated with type 2 diabetes mellitus ([facility]) - Hemoglobin a1c with eag; Future - Basic metabolic panel; Future Gastroesophageal reflux disease without esophagitis -taking protonix Hypercoagulable state ([facility]) -on warfarin for DVT 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 The rest the review systems is negative. She return here in three months for a BMP and also an A1c.Patient agrees with plan. Dr. Herzog was present in office suite today and is supervising patient care and available for consult. I'm following his plan of care for the above problems. Previous notes and plan were reviewed and followed. Adam Rodriguez, MSN, AUTOCAD ELECTRICAL DESIGNER-STOVE CARRIAGE OPERATOR documented in this encounterChristian [id number] History of Present illness Narrative* Radha Verduzco, [...] 1 each, Other, 4 times daily Lancets ([employer]Touch Delica Plus [id number]) [facility] [place] Exam Vitals reviewed. Exam conducted with a lead loader present. HENT: Head: Normocephalic. Eyes: Pupils: Pupils [...] resume yearly evaluations. documented in this encounterChristian [id number] History of Present illness Narrative* Marlon Branham [...] over the callous site. documented in this [facility]08-22-2024 Evaluation note* Diagnosis Onset Date Resolution Status [...] June 29, 2024 10:28am [facility]:28am History of DVT (deep vein thrombosis) acute July 04 024 8:29am History of pulmonary embolism acute July 04, 2024 8:29am [facility] Work Phone: 1([phone]) 672-209505-06-2024 [facility] History and physical note Author Sandy Clark [facility] December 28, 2023 8:33am Note Date/Time December 28, 2023 8:33am [facility] [address] [place] [address] Gastroenterology H&P Signed Patient: Nicol Frances MR#: [id number] : 1950 Acct:[id number] Age/Sex: 73 / F Adm Date: 4 Loc: Room: Type: [facility] Attending Dr: Sandy Clark DO [...] <Electronically signed by Sandy Clark DO> 12/28/23832 [facility] Work Phone: 1(557) 421-959305-06-2024 [facility] Evaluation note* Encounter Date Diagnosis Assessment [...] or Wednesdays. Seen by Genie Escobedo PharmD [facility] [place] Other 02-05-2024 Telephone encounter Note* Telephone Encounter - Ruddy Cisneros - 09/28/2023 9:48 AM EST Patient is scheduled. [facility] [id number] Miscellaneous Notes* Telephone Encounter - Ruddy Cisneros [...] pt and schedule her an appointment to picker / packer her shoes that arrived. Thankyou! documented in this encounterChristian [id number] Telephone encounter Note* Telephone Encounter - Kimberly Berger LPN - 09/25/2023 10:23 AM EST Pt called and lvm that she was sorry she missed our call and for someone to give her a call back please and thank you! [facility] [id number] Telephone encounter Note* Telephone Encounter - Ruddy Cisneros - 09/25/2023 9:55 AM EST Called patient to schedule appt to obtain shoes. Unable to LVM due to voicemail not set up. Christian [id number] Telephone encounter Note* Telephone Encounter - Kimberly Berger LPN - 09/24/2023 4:43 PM EST Can someone please call pt and schedule her an appointment to picker / packer her shoes that arrived. Thankyou! [facility] [id number] Evaluation note* Encounter Date Diagnosis Assessment Notes [...] by Samantha Echavarria PharmD Candidate/Tita Roberts PharmD [facility] Other 12-19-2023 Evaluation note* Encounter Date Diagnosis [...] or Wednesdays. Seen by Tita Roberts PharmD [facility] Other 11-21-2023 Evaluation note* Encounter Date Diagnosis [...] Rose Marie Quispe PharmD Candidate/Tita Roberts PharmD [facility] Other 10-23-2023 Evaluation note* Encounter Date Diagnosis [...] to appointments. Seen by Tita Roberts PharmD [facility] Other 09-07-2023 Evaluation note* Encounter Date Diagnosis [...] patient preference. Seen by Rachel Alonso PharmD [facility] Other 08-16-2023 Evaluation note* Encounter Date Diagnosis [...] dosing instructions as above. [facility] Other 07-31-2023 Evaluation note* Encounter Date Diagnosis [...] in medications or diet. Seen by Anny Qureshi,[facility] Other 07-19-2023 Evaluation note* Encounter Date Diagnosis [...] in medications or diet. Seen by Anny Qureshi,[facility] Other 07-03-2023 Evaluation note* Encounter Date Diagnosis [...] in medications or diet. Seen by Anny Qureshi,[facility] Other 04-19-2023 Evaluation note* Encounter Date Diagnosis [...] in 4 weeks. Seen by Anny Qureshi, [facility] Other 03-22-2023 Evaluation note* Encounter Date Diagnosis [...] in 4 weeks. Seen by Anny Qureshi [facility] Other 02-22-2023 Evaluation note* Encounter Date Diagnosis [...] in 4 weeks. Seen by Anny Qureshi [facility] Other 01-25-2023 Evaluation note* Encounter Date Diagnosis [...] in 4 weeks. Seen by Anny Qureshi, [facility] Other 12-28-2022 Evaluation note* Encounter Date Diagnosis [...] made if necessary. Seen by Anny Qureshi, [facility] Other 12-01-2022 Evaluation note* Encounter Date Diagnosis [...] high INR. Seen by Olu Rene PharmD [facility] Other 11-03-2022 Evaluation note* Encounter Date Diagnosis [...] can advise her. Seen by Lauren Vance [facility] Other 10-13-2022 Evaluation note* Encounter Date Diagnosis [...] Healthcare center. Seen by Olu Rene PharmD [facility] Other 09-29-2022 Evaluation note* Encounter Date Diagnosis [...] more details. Seen by Olu Rene PharmD [facility] Other 09-13-2022 Evaluation note* Encounter Date Diagnosis [...] as above. Seen by Tk Mora PharmD [facility] Other 08-16-2022 Evaluation note* Encounter Date Diagnosis [...] her Grandson. Seen by Jennifer Amezcua LPN [facility] Other 07-21-2022 Evaluation note* Encounter Date Diagnosis [...] 's appointment. Seen by Tameka Churchill RN [facility] Other 07-07-2022 Evaluation note* Encounter Date Diagnosis [...] 's appointment. Seen by Olu Rene PharmD [facility] Other 06-27-2022 Evaluation note* Encounter Date Diagnosis [...] 's appointment. 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 Seen by Tameka Churchill RN [facility] Other 05-16-2022 Evaluation note* Encounter Date Diagnosis [...] 's appointment. Seen by Marita Luo LPN [facility] Other 05-02-2022 Evaluation note* Encounter Date Diagnosis [...] 's appointment. Seen by Tameka Churchill RN [facility] Other 04-20-2022 Evaluation note* Encounter Date Diagnosis Assessment Notes Treatment Notes Treatment Clinical Notes Nov, Medication monitoring encounter (ICD-10 - Z51.81) Referring Provider: Dairus Herzog Diagnosis: DVT/PE (1997, 2001) INR Goal: [...] will resume. Seen by Tameka Churchill RN [facility] Other 04-07-2022 Evaluation note* Encounter Date Diagnosis Assessment Notes Treatment Notes Treatment Clinical Notes Nov, Diarrhea (ICD-10 - R19.7) Nov, Rectal bleeding (ICD-10 - K62.5) Nov, Colitis (ICD-10 - K52.9) [facility] Other 04-06-2022 Evaluation note* Encounter Date Diagnosis [...] showing improvement. Seen by Tameka Churchill RN [facility] Other 03-22-2022 Evaluation note* Encounter Date Diagnosis [...] 2 weeks. Seen by Tameka Churchill RN [facility] Other 03-10-2022 Evaluation note* Encounter Date Diagnosis [...] 2 weeks. Seen by Tameka Churchill RN [facility] Other 02-21-2022 Evaluation note* Encounter Date Diagnosis [...] 2 weeks. Seen by Tameka Churchill RN [facility] Other 02-07-2022 Evaluation note* Encounter Date Diagnosis [...] 2 weeks. Seen by Tameka Churchill RN [facility] Other 01-20-2022 Evaluation note* Encounter Date Diagnosis [...] 2 weeks. Seen by Tameka Churchill RN [facility] Other 01-06-2022 Evaluation note* Encounter Date Diagnosis [...] 2 weeks. Seen by Tameka Churchill RN [facility] Other 12-09-2021 Evaluation note* Encounter Date Diagnosis [...] 2 weeks. Seen by Tameka Churchill RN [facility] Other 11-22-2021 Evaluation note* Encounter Date Diagnosis [...] 2 weeks. Seen by Tameka Churchill RN [facility] Other 11-10-2021 Evaluation note* Encounter Date Diagnosis [...] 2 weeks. Seen by Tameka Churchill RN [facility] Other 10-27-2021 Evaluation note* Encounter Date Diagnosis [...] 's appt. Seen by Tameka Churchill RN [facility] Other 10-05-2021 Evaluation note* Encounter Date Diagnosis [...] 's appt. Seen by Tameka Churchill RN [facility] Other 09-22-2021 Evaluation note* Encounter Date Diagnosis [...] with . Seen by Olu Rene PharmD [facility] Other chief complaint+Reason for visit Narrative* Chief Complaint DVT INR Follow Up blood in stool/change in stool/ref M. Sarah R59.0 Procedure Instructions + Lovenox Instructions Reason for Visit History of DVT (deep vein thrombosis) History of pulmonary embolism Rectal bleed Ulcerative colitis History of DVT (deep vein thrombosis) History of pulmonary embolism [facility] Work Phone: chief complaint+Reason for visit Narrative* Chief Complaint DVT INR Follow Up blood in stool/change in stool/ref M. Sarah R59.0 Procedure Instructions + Lovenox Instructions ulcerative colitis/blood in stool ulcerative colitis/blood in stool Reason for Visit History of DVT (deep vein thrombosis) History of pulmonary embolism Rectal bleed Ulcerative colitis History of DVT (deep vein thrombosis) History of pulmonary embolism [facility] Work Phone: chief complaint+Reason for visit [...] (deep vein thrombosis) History of pulmonary embolism [facility] Work Phone: Chief complaint+Reason for visit [...] (deep vein thrombosis) History of pulmonary embolism [facility] Work Phone: chief complaint+Reason for visit [...] (deep vein thrombosis) History of pulmonary embolism [facility] Work Phone: evaluation noteNo InformationNort [employer] Other evaluation noteNoAM Technology Other evaluation noteNo assessment information available [facility] Work Phone: evaluation note* Diagnosis Onset Date Resolution Status HTN (hypertension) acute Shakiness acute Weakness acute [facility] Work Phone: evaluation note* Diagnosis Onset Date Resolution Status History of DVT (deep vein thrombosis) acute History of pulmonary embolism acute [facility] Work Phone: Evaluation note* Diagnosis Onset Date Resolution Status History of DVT (deep vein thrombosis) acute History of pulmonary embolism acute Blood in stool acute Ulcerative colitis acute [facility] Work Phone: evaluation note* Diagnosis Onset Date Resolution Status History of DVT (deep vein thrombosis) acute History of pulmonary embolism acute Rectal bleed acute Ulcerative colitis acute [facility] Work Phone: evaluation note* Diagnosis Onset Date Resolution Status History of DVT (deep vein thrombosis) acute History of pulmonary embolism acute Rectal bleed acute Ulcerative colitis acute History of DVT (deep vein thrombosis) acute History of pulmonary embolism acute [facility] Work Phone: Evaluation note* Diagnosis Onset [...] thrombosis) acute History of pulmonary embolism acute [facility] Work Phone: Evaluation note* Diagnosis Onset [...] thrombosis) acute History of pulmonary embolism acute [facility] Work Phone: Evaluation note* Diagnosis Onset Date Resolution Status History of DVT (deep vein thrombosis) acute History of pulmonary embolism acute History of DVT (deep vein thrombosis) acute History of pulmonary embolism acute History of DVT (deep vein thrombosis) acute History of pulmonary embolism acute History of DVT (deep vein thrombosis) acute History of pulmonary embolism acute [facility] Work Phone: Evaluation note* Diagnosis Primary hypertension ([facility])- Primary Unspecified essential hypertension Mixed hyperlipidemia ([facility]) Mixed hyperlipidemia Obstructive sleep apnea syndrome Obstructive sleep apnea (adult) (pediatric) Peripheral venous insufficiency Unspecified venous (peripheral) insufficiency Chronic deep vein thrombosis (DVT) of femoral vein of left lower extremity ([facility]) 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 machines and devices Diabetic peripheral neuropathy associated with type 2 diabetes mellitus ([facility]) Gastroesophageal reflux disease without esophagitis Esophageal reflux Hypercoagulable state ([facility]) Primary hypercoagulable state half-way current use of 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 ([facility]) OAB (overactive bladder) Class 1 obesity Spinal stenosis of lumbosacral region Ulcerative colitis without complications, unspecified location ([facility]) Need for immunization against influenza Need for [...] thrombosis) acute History of pulmonary embolism acute [facility] Work Phone: Evaluation note* Diagnosis Type [...] Ulcerative colitis without complications, unspecified location (CMS/HCC) 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 (CMS/HCC) 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 Sacral ulcer, limited to breakdown of skin ([facility]) [facility] [...] with type 2 diabetes mellitus (CMS/HCC)- Primary half-way current use of insulin (CMS/HCC) Mixed hyperlipidemia (CMS/HCC) Mixed hyperlipidemia Hypercoagulable state (CMS/HCC) Primary hypercoagulable state half-way current use of 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 Steatosis of [...] with long-term current use of insulin (HCC) ([facility]/HCC) Diabetic peripheral neuropathy associated with type 2 diabetes mellitus (CMS/HCC) 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 (CMS/HCC) Mixed hyperlipidemia (CMS/HCC) Mixed hyperlipidemia Steatosis of liver Other chronic nonalcoholic liver disease Primary hypertension (CMS/HCC) Unspecified essential hypertension Chronic deep vein thrombosis (DVT) of femoral vein of left lower extremity (CMS/HCC) Spinal stenosis of lumbosacral region 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 [facility] Diagnosis Onychomycosis- Primary Dermatophytosis of nail Corns and callosities Hallux malleus, right Type II diabetes mellitus with neurological manifestations ([facility]/HCC) Type II or unspecified type diabetes mellitus [...] of skin (HCC) documented in this encounter [facility]* Diagnosis Surgery follow-up examination- Primary Follow-up examination, following unspecified surgery Hallux malleus, right Ulcer of great toe, right, limited to breakdown of skin (HCC) Right foot pain Pain in soft tissues of limb documented in this encounter [facility]Evaluation note* Diagnosis Posterior tibial tendonitis, right- Primary Surgery follow-up examination Follow-up examination, following unspecified surgery Hallux malleus, right Ulcer of great toe, right, limited to breakdown of skin (HCC) documented in this encounter [facility]Evaluation note* Diagnosis Onychomycosis- Primary Dermatophytosis of nail Pain in both feet Type II diabetes mellitus with neurological manifestations (HCC) Type II or unspecified type diabetes mellitus with neurological manifestations, not stated as uncontrolled Corns and callosities Hallux malleus, right Surgery follow-up examination Follow-up examination, following unspecified surgery documented in this encounter [facility] HealthcareHistory general Narrative - Reported* Type [...] surgical Hx Hospitalization History acute gastroenteritis 04/30-05/01/18 [facility] Other History general Narrative - Reported* Type [...] Dr. Maynard. 1 Hospitalization History see above [facility] [place] [facility] - [facility] [place] [facility] Discharge instructions Additional Instructions Continue your pain pills at home Return symptoms are worse [facility] Additional Instructions Continue current meds [facility] are [facility]: Reason for referral (narrative)No reason for referral information [facility] Work [facility]: Chief Complaint and Reason [...] History of DVT (deep vein thrombosis) No [facility]2023 8:29am History of pulmonary embolism June 242023 8:29am History of DVT (deep vein thrombosis) [facility] 2023 8:24am History of pulmonary embolism July 242023 8:24am History of DVT (deep vein thrombosis) [facility] 2024 8:43am History of pulmonary embolism September 092024 8:43am Chief Complaint Admit Date INR Follow Up August 03, 2024 8:24am INR f/u October 05, 2024 8:36am Reason for Visit Admit Date History of DVT (deep vein thrombosis) [facility] 2023 8:24am History of pulmonary embolism July 242023 8:24am History of DVT (deep vein thrombosis) [facility] 2024 8:43am History of pulmonary embolism September 092024 8:43am History of DVT (deep vein thrombosis) [facility] 2024 8:36am History of pulmonary embolism September 242024 8:36am Chief Complaint Admit Date INR Follow Up August 03, 2024 8:24am INR f/u October 05, 2024 8:36am 3 month Follow up/colitis October 07, 2024 9:04am Reason for Visit Admit Date History of DVT (deep vein thrombosis) [facility] 2023 8:24am History of pulmonary embolism July 242023 8:24am History of DVT (deep vein thrombosis) [facility] 2024 8:43am History of pulmonary embolism September 092024 8:43am History of DVT (deep vein thrombosis) [facility] 2024 8:36am History of pulmonary embolism September 242024 8:36am Crohn's colitis October 07, 2024 9:04am Chief Complaint Admit Date INR f/u October 05, 2024 8:36am 3 month Follow up/colitis October 07, 2024 9:04am INR f/u November 02, 2024 8:5 1am Reason for Visit Admit Date History of DVT (deep vein thrombosis) [facility] 2024 8:43am History of pulmonary embolism September 092024 8:43am History of DVT (deep vein thrombosis) [facility] 2024 8:36am History of pulmonary embolism September 242024 8:36am Crohn's colitis October 07, 2024 9:04am History of DVT (deep vein thrombosis) [facility] 2024 8:51am History of pulmonary embolism October 8:51am Chief Complaint Admit Date INR f/u October 05, 2024 8:36am 3 month Follow up/colitis October 07, 2024 9:04am INR f/u November 02, 2024 8:5 1am INR f/u November 30, 2024 8:37 am Reason for Visit Admit Date History of DVT (deep vein thrombosis) [facility] 2024 8:43am History of pulmonary embolism September 092024 8:43am History of DVT (deep vein thrombosis) [facility] 2024 8:36am History of pulmonary embolism September 242024 8:36am Crohn's colitis October 07, 2024 9:04am History of DVT (deep vein thrombosis) [facility] 2024 8:51am History of pulmonary embolism October 8:51am History of DVT (deep vein thrombosis) [facility] 2024 8:37am History of pulmonary embolism November 30, 2024 8:37am Chief Complaint Admit Date INR f/u October 05, 2024 8:36am 3 month Follow up/colitis October 07, 2024 9:04am INR f/u November 02, 2024 8:5 1am INR f/u November 30, 2024 8:37 am R92.8 December 07, 2024 8:3 4am Reason for Visit Admit Date History of DVT (deep vein thrombosis) [facility] 2024 8:36am History of pulmonary embolism [...] up for her ER visit at the [facility] on 12/06. She was seen for left [...] Primary osteoarthritis of left knee Venita Marques, [employer] [address] [place] [address] Phone: tel: fax: Caro Hugo PA Phone: tel: fax: Referral ID Status Reason Start Date Expiration Date V isits Requested Visits Authorized [id number] Closed Specialty Services Required 02/13/2025 08/12/2025 1 [...] 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 Primary Care Provider Active Chain Hooker Relationship Specialty Start Date End Date Kristopher Herzog DO [address] [place] [address] PCP - Devoted 12/22/21 Kristopher Herzog DO [address] [place] [address] PCP - General Internal Medicine 12/30/22 Team [...] June 06, 2024 End: June 06, 2024 Chain Hooker Relationship Specialty Start Date End Date Kristopher Herzog DO [address] [facility] [address] [place] [address] PCP - Devoted 12/22/21 Kristopher Herzog DO [address] [place] [address] PCP - General Internal Medicine 12/30/22 Chain Hooker Relationship Specialty Start Date End Date Kristopher Herzog DO [address] [place] [address] PCP - Devoted 12/22/21 Kristopher Herzog DO [address] [place] [address] PCP - General Internal Medicine 12/30/22 Team Status: Inactive Member Role Status Dates Kristopher Herzog DO Primary Care Provider Active Start: June 29, 2024 End: June 29, 2024 Sandy Clakr DO Attending Provider Active St art: June 29, 2024 End: June 29, 2024 Team Status: Inactive Member Role Status Dates Kristopher Herzog DO Primary Care Provide r, Referring Provider Active Start: July 04, 2024 End: July 04, 2024 Nirali QuinonesD Attending Provider Active Start: July 04, 2024 End: July 04, 2024 Chain Hooker Relationship Specialty Start Date End Date Kristopher Herzog DO [address] [place] [address] PCP - Devoted 12/22/21 08/23/24 Kristopher Herzog DO [address] [place] [address] PCP - General Internal Medicine 12/30/22 Chain Hooker Relationship Specialty Start Date End Date Kristopher Herzog DO [address] [place] [address] PCP - Devoted 12/22/21 08/23/24 Kristopher Herzog DO [address] [place] [address] PCP - General Internal Medicine 12/30/22 Chain Hooker Relationship Specialty Start Date End Date Kristopher Herzog DO [address] [place] [address] PCP - Devoted 12/22/21 Kristopher Herzog DO [address] [place] [address] PCP - General Internal Medicine 12/30/22 Chain Hooker Relationship Specialty Start Date End Date Kristopher Herzog DO [address] [place] [address] PCP - Devoted 12/22/21 Kristopher Herzog DO [address] [place] [address] PCP - General Internal Medicine 12/30/22 Team [...] September 09, 2024 End: September 09, 2024 Chain Hooker Relationship Specialty Start Date End Date Kristopher Herzog DO [address] [place] [address] PCP - General Internal Medicine 12/30/22 Team [...] October 07, 2024 End: October 07, 2024 Chain Hooker Relationship Specialty Start Date End Date Kristopher Herzog DO [address] [place] [address] PCP - General Internal Medicine 12/30/22 Chain Hooker Relationship Specialty Start Date End Date Kristopher Herzog DO [address] [place] [address] PCP - General Internal Medicine 12/30/22 Chain Hooker Relationship Specialty Start Date End Date Kristopher Herzog DO [address] [place] [address] PCP - General Internal Medicine 12/30/22 Chain Hooker Relationship Specialty Start Date End Date Kristopher Herzog DO [address] [place] [address] PCP - General Internal Medicine 12/30/22 Chain Hooker Relationship Specialty Start Date End Date Kristopher Herzog DO [address] [place] [address] PCP - General Internal Medicine 12/30/22 Chain Hooker Relationship Specialty Start Date End Date Kristopher Herzog DO [address] [place] [address] PCP - General Internal Medicine 12/30/22 Chain Hooker Relationship Specialty Start Date End Date Kristopher Herzog DO [address] [place] [address] PCP - General Internal Medicine 12/30/22 Chain Hooker Relationship Specialty Start Date End Date Kristopher Herzog DO [address] [place] [address] PCP - General Internal Medicine 12/30/22 Chain Hooker Relationship Specialty Start Date End Date Kristopher Herzog DO [address] [place] [address] PCP - General Internal Medicine 12/30/22 Team [...] February 22, 2025 End: February 22, 2025 Chain Hooker Relationship Specialty Start Date End Date Kristopher Herzog DO [address] [place] [address] PCP - General Internal Medicine 12/30/22 Chain Hooker Relationship Specialty Start Date End Date Kristopher Herzog DO [address] [facility] [address] [place] [address] PCP - General Internal Medicine 12/30/22 Chain Hooker Relationship Specialty Start Date End Date Kristopher Herzog DO [address] [facility] [address] [place] [address] PCP - General Internal Medicine 12/30/22 Chain Hooker Relationship Specialty Start Date End Date Kristopher Herzog DO [address] [place] [address] PCP - General Internal Medicine 12/30/22 Team [...] March 13, 2025 End: March 13, 2025 Chain Hooker Relationship Specialty Start Date End Date Kristopher Herzog DO [address] [address] PCP - General Internal Medicine 12/30/22 Team Status: Inactive Member Role Status Dates Kristopher Herzog DO Primary Care Provider Active Start: March 17, 2025 End: March 17, 2025 Kristopher Herzog DO Referring Provider Active St art: March 17, 2025 End: March 17, 2025 Kiersten Qureshi [facility] Attending Provider Active Start: March 17, 2025 End: March 17, 2025 Chain Hooker Relationship Specialty Start Date End Date Karlos Morgan MD [address] [facility] [place] [address] PCP - General Family Medicine 03/17/25 Chain Hooker Relationship Specialty Start Date End Date Karlos Morgan MD [address] [facility] [place] [address] PCP - General Family Medicine 03/17/25 Chain Hooker Relationship Specialty Start Date End Date Karlos Morgan MD [address] [facility] [place] [address] PCP - General Family Medicine 03/17/25 Chain Hooker Relationship Specialty Start Date End Date Karlos Morgan MD [address] [facility] [place] [address] PCP - General Family Medicine 03/17/25 Chain Hooker Relationship Specialty Start Date End Date Karlos Morgan MD [address] [place] [address] PCP - General Family Medicine 03/17/25 Chain Hooker Relationship Specialty Start Date End Date Karlos Morgan MD [address] [place] [address] PCP - General Family Medicine 03/17/25 Goals (unrecognized section and content) Goals may be documented in a n alternate section INFORMATION SOURCE (unrecogn ized section and content) DATE CREATED AUTHOR 12/18/2022 [facility] DATE CREATED AUTHOR AUTHOR'S ORGANIZ ATION 12/09/2024 [facility] DATE CREATED AUTHOR AUTHOR'S ORGANIZ ATION 05/28/2025 [facility] FOR RECORDS PERTAINING TO PATIENTS WHO [...] BE BASED ON THE PRIMARY CLINICAL RECORDS. [facility] [employer] provides no warranty or guarantee of the accuracy or completeness of information in this document.
--- NOTE | 2025-06-08 13:28 | CM.NOTE ---
CRF completed for [facility], ANDREW in contact with [facility] for discharge planning.
--- NOTE | 2025-06-08 15:02 | SWNOTE1 ---
ANDREW called and spoke to Payton at [facility] and they are able to accept. ANDREW faxed all discharge paperwork to [facility].
--- NOTE | 2025-06-12 13:41 | CM.DCFOLLOWU ---
Person spoke with:patient How are you feeling? well, good sitting with legs elevated How is your pain? no Did you understand your discharge instructions? yes Do you have any questions about your discharge instructions? no Were you given any prescriptions at discharge? yes Were you able to get your prescriptions filled? yes Do you understand how to take your medications as ordered? yes Do you have any questions about your follow up appointment and do you plan to keep your follow up appointment?no questions, follow up reviewed and pt is aware Is there anything else that you would like to discuss? no Questions/Comments/Concerns/Other:none
== END 2025-06-08 13:14 | disposition home health service (06) ==
LOC: ER 17:43 → MS 22:31
PROVIDERS: Admitting Provider Internal Medicine; Emergency Provider Emergency Medicine; Family Provider Family Medicine; PCP Family Medicine; Visit Provider Internal Medicine
DX: E11.628 Type 2 diabetes mellitus with other skin complications (principal); L03.115 Cellulitis of right lower limb; Z86.718 Personal history of other venous thrombosis and embolism; Z79.01 Long term (current) use of 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s; Z79.4 Long term (current) use of insulin; E11.40 Type 2 diabetes mellitus with diabetic neuropathy, unspecified; Z63.4 Disappearance and death of family member; Z98.1 Arthrodesis status; Z23 Encounter for immunization
CPT/HCPCS: 36415; 73610; 73630; 80048; 80053; 83605; 85025; 85652; 86140; 87040; 87624; 90662; 90677; 93971; 94660; 94761; 96365; 96366; 96367; 96368; 96375; 97161; 99285; G0008; G0009; G0378; J0295; J1885

== ENCOUNTER 2025-07-31 14:20 | Outpatient (OUT) | payer MEDICARE, SELFPAY ==
[2025-07-31 14:46] LABS: Glucose Urine UA NEGATIVE (NEGATIVE)
[2025-07-31 15:13] LABS: Cast Seen? NONE SEEN #/LPF (NONE SEEN); Crystals Seen? None Seen #/HPF (None Seen)
== END 2025-07-31 14:21 | disposition home or self-care (01) ==
LOC: LAB 14:21
PROVIDERS: Family Provider Family Medicine; PCP Family Medicine; Visit Provider Family Medicine
DX: N39.0 Urinary tract infection, site not specified (principal)
CPT/HCPCS: 81001; 87086